=== PATIENT | female | born 2005 | race Caucasian/White ===

== ENCOUNTER 2023-01-04 14:56 | Inpatient (IN) | payer OTHER, SELFPAY ==
[2023-01-06 00:20] VITALS: BP 126/63; PULSE 80; RESP 18; TEMP 37.3
--- NOTE | 2023-01-06 02:35 | PM.OBPN ---
OB - PN: Subj Subjective Interval history: doing well Patient comments: no complaints [place] infant status: doing well Exam Constitutional: Vital Signs, click to edit/add: Vital Signs - 24 hr 01/06/23 00:20 01/06/23 00:20 Temperature 99.1 F Pulse Rate 80 Respiratory Rate 18 Blood Pressure [Le ft Arm] 126/63 H Oxygen Delivery Me thod Room Air Room Air Chest: Common normals: inspection of chest normal Respiratory: Common normals: normal respiratory effort Auscultation: clear to auscultation bilaterally Cardio: Common normals: regular rate GI: Common normals: Normal to inspection, nondistended, normoactive bowel sounds present Extremity: Common normals: normal to inspection OB - PN: A/P Assessment and Plan Plan s/p pp day 1-doing well, cont expectant mgmt Plan - Vaginal Delivery day: 1 Plan: routine care Time Spent with Patient Time: Total time spent is greater than 50% in coordination of care (as documented) at patient's floor/unit and/or counseling patient:
--- NOTE | 2023-01-06 03:17 | P.OBPN_ITS ---
OB - PN: Subj Subjective Interval history: doing well Patient comments: no complaints [place] infant status: doing well Exam Constitutional Vital Signs, click to edit/add: Vital Signs - 24 hr 01/06/23 00:20 01/06/23 00:20 Temperature 99.1 F Pulse Rate 80 Respiratory Rate 18 Blood Pressure [Left Arm] 126/63 H Oxygen Delivery Method Room Air Room Air Common normals: no apparent distress Respiratory Common normals: normal respiratory effort Cardio Common normals: regular rate and regular rhythm GI Common normals: Normal to inspection, nondistended, normoactive bowel sounds present Extremity Common normals: normal to inspection, no clubbing, cyanosis or edema and no calf tenderness OB - PN: A/P Plan - Vaginal Delivery day: 1 Plan: routine care Time Spent with Patient Time: Total time spent is greater than 50% in coordination of care (as documented) at patient's floor/unit and/or counseling patient: Total time spent with greater than 50% in coordination of care (as documented) at patient's floor/unit and/or counseling patient: less than 15 minutes
--- NOTE | 2023-01-06 05:21 | PC.NURSE ---
Pt sleeping upon RN entering room. Awakens easily. RN explains to pt that infant needs to eat every 2-3 hours. Provides bottle to pt and demonstrates paced bottle feeding as well as how to burp infant. Pt needs continuing education.
[2023-01-06 06:35] LABS: Hematocrit 29.7 % (36.0-48.0); Hemoglobin 10.4 g/dL (12.0-16.0); Mean Corpuscular Hemoglobin 29.1 pg (26.7-34.0); Mean Platelet Volume 11.7 fL (9.5-13.5); Nucleated Red Blood Cells 0; Platelet Count 156 10^3/uL (150-450); Red Blood Count 3.58 10^6/uL (4.20-5.40); Red Cell Distribution Width 11.9 % (11.0-15.0); White Blood Count 9.8 10^3/uL (4.0-11.0)
[2023-01-06 06:57] LABS: Eosinophils Absolute Manual 0.09 10^3/uL (0.00-0.70); Lymphocytes Absolute Manual 2.45 10^3/uL (1.20-3.80); Monocytes Absolute Manual 0.88 10^3/uL (0.30-0.80); Segmented Neut Absolute Manual 5.58 10^3/uL (1.4-6.5)
[2023-01-06 06:58] LABS: Band Neutrophils Absolute 0.3 10^3/uL (0.0-0.3)
--- NOTE | 2023-01-06 07:28 | PC.NURSE ---
Report given to Elis Alvarado RN
[2023-01-06 10:06] VITALS: BP 131/91; PULSE 78; RESP 16; TEMP 36.1
--- NOTE | 2023-01-06 15:14 | SWNOTE1 ---
SW met with pt due to consult for teen , anxiety and depression, and pt being high school drop out. Pt and father of baby in room as well. Pt is on Celexa at home for her anxiety/depression. She stated she has been on it for a month and it does help her. She will continue Celexa when she is discharged. SW did go over post depression with pt and father of baby, they voiced understanding. Pt did voice they have a good support system at home and they do have everything they need for baby at home. Pt does plan on going back to school once the baby is older. She voiced it was hard to go to school and be . Pt and father of baby appropriate with baby. Concerns addressed. Nursing updated.
[2023-01-06 17:00] VITALS: RESP 12
[2023-01-06 18:44] VITALS: BP 128/80; PULSE 92; RESP 12; TEMP 36.7
--- NOTE | 2023-01-06 19:31 | PC.NURSE ---
Pt sitting comfortably in bed with S/O at bedside as well. Denies any needs at this time.
--- NOTE | 2023-01-06 20:09 | PC.NURSE ---
Pt requests more delmy pads. Water refreshed at this time as well. No other needs.
[2023-01-06 23:00] VITALS: BP 125/78; PULSE 86; RESP 18; TEMP 36.9
[2023-01-07] MEDS: DOCUSATE SODIUM 100 MG CAPSULE PO (09:52)
--- NOTE | 2023-01-07 09:53 | PC.NURSE ---
01/07/2023 0953 patient taking own home meds keppra 500mg and celexa 10mg orally. RN witnesses patient taking own home meds while RN at bedside.
[2023-01-07 09:56] VITALS: BP 122/72; PULSE 79; RESP 18; TEMP 36.6
--- NOTE | 2023-01-07 12:08 | PM.OBPN ---
OB - PN: Subj Subjective Interval history: Doing well, afebrile. Ambulating well. Pain is minimal. Patient comments: no complaints Exam Constitutional: Vital Signs, click to edit/add: Vital Signs - 24 hr 01/06/23 18:44 01/06/23 17:00 01/06/23 23:00 Temperature 98.0 F Pulse Rate 92 H Pulse Rate [Monito r] 86 Respiratory Rate 12 12 18 Blood Pressure [Le ft Arm] 128/80 H Oxygen Delivery Me thod Room Air Room Air Room Air 01/06/23 23:00 01/07/23 09:56 Temperature 98.4 F 97.9 F Pulse Rate 86 79 Pulse Rate [Monito r] Respiratory Rate 18 18 Blood Pressure [Le ft Arm] 125/78 H 122/72 H Oxygen Delivery Me thod Room Air Room Air Documenting provider has reviewed patient's vital signs: yes Common normals: no apparent distress General appearance: cooperative HENMT: Common normals: normocephalic Respiratory: Common normals: normal respiratory effort Cardio: Common normals: regular rate and regular rhythm GI: Common normals: soft to palpation Inspection: normal to inspection Palpation: soft : Speculum exam - vagina: vaginal discharge Vaginal discharge present: normal Bimanual exam- vagina & uterus: uterus non-tender OB - PN: A/P Assessment and Plan (1) Normal course: Plan day two, discharge home. Plan - Vaginal Delivery Plan: routine care, discharge home and follow up 6 weeks Time Spent with Patient Time: Total time spent is greater than 50% in coordination of care (as documented) at patient's floor/unit and/or counseling patient: Total time spent with greater than 50% in coordination of care (as documented) at patient's floor/unit and/or counseling patient: less than 15 minutes
== END 2023-01-07 12:30 | disposition home or self-care (01) | DRG 560 ==
PROVIDERS: Admitting Provider Obstetrics & Gynecology; PCP Family Medicine; Visit Provider Obstetrics & Gynecology
DX: O36.5930 Maternal care for other known or suspected poor fetal growth, third trimester, not applicable or unspecified (principal); Z3A.37 37 weeks gestation of pregnancy; Z37.0 Single live birth; O99.334 Smoking (tobacco) complicating childbirth; F17.210 Nicotine dependence, cigarettes, uncomplicated; O70.0 First degree perineal laceration during delivery
CPT/HCPCS: 36415; 51702; 59050; 80307; 85007; 85025; 85027; 86850; 86900; 86901; 96372; J0702; J2300

== ENCOUNTER 2023-03-22 17:50 | Emergency (ER) | payer OTHER, SELFPAY ==
[2023-03-22 17:56] VITALS: BP 126/75; PULSE 20; RESP 18; O2SAT 99; BMI 26.6
--- NOTE | 2023-03-22 18:08 | CT_ITS ---
The [address] [address] Patient Name: NICKO EVANS MRN: [id number] date: 2005 Sex: F Assigned Patient Location: ER Current Patient Location: ER Accession/Order Number: [id number] Exam Date: 03/22/2023 18:41 Report Date: 03/22/2023 19:24 At the request of: LEIGH RIVERS Procedure: CT cervical spine wo con EXAMINATION: CT cervical spine wo con HISTORY: fall COMPARISON: None. TECHNIQUE: CT Cervical spine without IV contrast. Coronal and sagittal reformations were performed. Dose reduction techniques were achieved by using automated exposure control and/or adjustment of mA and/or kV according to patient size and/or use of iterative reconstruction technique. FINDINGS: CV JUNCTION: Normal foramen magnum with no Chiari malformation. PARASPINAL: Normal with no visible mass. BONES: No fracture, pars defect, or osseous lesion. OTHER: None. DISC LEVELS: C1-C2: Within normal limits for age. C2-C3: No significant disc/facet abnormality, spinal stenosis, or foraminal stenosis. C3-C4: No significant disc/facet abnormality, spinal stenosis, or foraminal stenosis. C4-C5: No significant disc/facet abnormality, spinal stenosis, or foraminal stenosis. . C5-C6: Early degenerative disc disease is present without focal protrusion. The central canal and neural foramina are satisfactorily maintained. C6-C7: No significant disc/facet abnormality, spinal stenosis, or foraminal stenosis. C7-T1: No significant disc/facet abnormality, spinal stenosis, or foraminal stenosis. CT/CT cervical spine wo con IMPRESSION: 1. Early C5-C6 degenerative disc disease. 2. No focal disc protrusion, significantly stenosing lesion of the neural canal, or acute bony abnormality is identified. Electronically authenticated by: Flako LOVELL Date: 03/22/2023 19:24
--- NOTE | 2023-03-22 18:08 | ECG_ITS ---
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
--- NOTE | 2023-03-22 18:08 | CT_ITS ---
The [address] [address] Patient Name: NICKO EVANS MRN: [id number] date: 2005 Sex: F Assigned Patient Location: ER Current Patient Location: ER Accession/Order Number: [id number] Exam Date: 03/22/2023 18:41 Report Date: 03/22/2023 19:20 At the request of: LEIGH RIVERS Procedure: CT head/brain wo con CT head/brain wo con, 03/22/2023 3:41 PM PDT INDICATION: seizure COMPARISON: None. TECHNIQUE: Axial CT images of the brain from skull base to vertex, including portions of the face and sinuses, were obtained without contrast. Multiplanar reformatted images were generated and reviewed as needed. Dose reduction techniques were achieved by using automated exposure control and/or adjustment of mA and/or kV according to patient size and/or use of iterative reconstruction technique. FINDINGS: CEREBRUM: No edema, hemorrhage, mass, acute infarction, or inappropriate atrophy. CEREBELLUM: No edema, hemorrhage, mass, acute infarction, or inappropriate atrophy. BRAINSTEM: No acute infarct, hemorrhage or gross structural abnormality. CSF SPACES: Ventricles, cisterns, and sulci are appropriate for age. No hydrocephalus, subarachnoid hemorrhage, or mass. SKULL: No mass or other significant visible lesion. SINUSES: Limited views demonstrate no significant mucosal thickening or fluid. ORBITS: Limited views are unremarkable. OTHER: None. CT/CT head/brain wo con IMPRESSION: No acute intracranial abnormality is identified. Electronically authenticated by: Flako LOVELL Date: 03/22/2023 19:20
[2023-03-22 18:22] LABS: Basophils Percent Auto 0.3 % (0.2-2.0); Eosinophils Percent Auto 0.2 % (0.9-7.0); Hematocrit 36.9 % (36.0-48.0); Hemoglobin 12.7 g/dL (12.0-16.0); Immature Granulocytes Abs Auto 0.01 10^3/uL (0.00-0.03); Immature Granulocytes Pct Auto 0.2 % (0.0-0.5); Lymphocytes Absolute Auto 2.7 10^3/uL (1.2-3.8); Lymphocytes Percent Auto 43.7 % (20.5-60.0); Mean Corpuscular HGB Conc 34.4 g/dL (29.9-35.2); Mean Corpuscular Hemoglobin 27.9 pg (26.7-34.0); Mean Corpuscular Volume 81.1 fL (81.0-99.0); Monocytes Percent Auto 16.1 % (1.7-12.0); Neutrophils Absolute Auto 2.4 10^3/uL (1.4-6.5); Neutrophils Percent Auto 39.5 % (43.0-75.0); Platelet Count 201 10^3/uL (150-450); Red Blood Count 4.55 10^6/uL (4.20-5.40); Red Cell Distribution Width 14.7 % (11.0-15.0); White Blood Count 6.2 10^3/uL (4.0-11.0)
[2023-03-22 18:26] LABS: HCG Qualitative NEGATIVE (NEGATIVE)
[2023-03-22 18:31] LABS: Alanine Aminotransferase 24 U/L (14-59); Albumin Globulin Ratio 1.4; Albumin Level 4.3 g/dL (3.4-5.0); Alkaline Phosphatase 69 U/L (46-116); Anion Gap 18.4; Aspartate Amino Transferase 15 U/L (15-37); BUN Creatinine Ratio 4.7; Bilirubin Total 0.4 mg/dL (0.2-1.0); Calcium 8.4 mg/dL (8.5-10.1); Carbon Dioxide 21.3 mmol/L (21.0-32.0); Chloride 102 mmol/L (98-107); Estimated GFR (African America >60 (>=60); Estimated GFR (Non-African Ame >60 (>=60); Glucose 115 mg/dL (74-106); Magnesium 1.8 mg/dL (1.8-2.4); Sodium 139 mmol/L (136-145); Total Protein 7.3 g/dL (6.4-8.2)
--- NOTE | 2023-03-22 18:33 | ED.GENADUL1 ---
HPI - General Adult General Chief complaint: Seizure Stated complaint: TONGUE IS DISCOLORED Time Seen by Provider: 03/22/23 18:06 Source: family Mode of arrival: walk-in History of Present Illness HPI narrative: 17-year-old female to the emergency department with chief complaint of seizure. Patient was initially checking into the emergency department with her mother for dark discoloration of her tongue has been ongoing for several days. She is otherwise been in her baseline health. She recently delivered a baby vaginally one month ago. No recent falls or injuries. No fever, sweats, chills. No nausea or vomiting, abdominal pain. Mother reports that while they're checking in triage the patient lowered herself to the ground and seized. Related Data Allergies Allergy/AdvReac Type Severity Reaction Status Date / Time amanda Allergy Verified 01/06/23 19:36 Review of Systems ROS Status of ROS 10 or more systems reviewed and unremarkable except as noted in history and below [facility] Medical History (Updated 03/22/23 @ 18:40 by Rommel Davis MD) Exam Narrative Exam Narrative: VITALS: I have reviewed the triage vital signs. GENERAL: Well developed, well appearing adult female in no acute distress. NEURO: Alert and oriented x4. Moves all extremities. Face is symmetric and expressive. Motor strength and sensation grossly intact. EYES: PERRL. No scleral icterus or conjunctival injection. No discharge. HENT: Normocephalic, atraumatic. Hearing is grossly intact. Nares grossly patent and without discharge. Mucous membranes moist. Dark hairy tongue. NECK: No JVD. Patient moves neck without restriction. CARDIO: Rhythm regular. Normal rate. No murmur, rub, or gallop. Pulses equal bilaterally in the upper and lower extremity. No lower extremity edema. PULM: Lungs clear to auscultation in all king. No wheezes, rales, or rhonchi. No conversational dyspnea. No splinting, stridor, or accessory muscle use. GI/: Abdomen is soft and non-tender. Normoactive bowel sounds. EXTREMITIES: Symmetric muscle bulk. No joint swelling. No clubbing, cyanosis, or deformity. SKIN: Warm and dry. Normal turgor. No rash or lesions appreciated. PSYCH: Mood, affect, and interaction is appropriate to the setting. Constitutional Vital Signs, click to edit/add: Last Vital Signs Pulse 20 L 03/22/23 17:56 Resp 18 03/22/23 17:56 BP 126/75 03/22/23 17:56 Pulse Ox 99 03/22/23 17:56 Course Vital Signs Vital signs: Vital Signs Pulse Rate 20 L 03/22/23 17:56 Respiratory Rate 18 03/22/23 17:56 Blood Pressure 126/75 03/22/23 17:56 Pulse Oximetry 99 03/22/23 17:56 Pulse Rate 20 L 03/22/23 17:56 Respiratory Rate 18 03/22/23 17:56 Blood Pressure 126/75 03/22/23 17:56 Pulse Oximetry 99 03/22/23 17:56 Medical Decision Making MDM Narrative Medical decision making narrative: 17-year-old female to the emergency department with chief complaint of seizure. Vital stable, the patient is afebrile. Seizure lasted approximately thirty seconds witnessed by myself and Emergency Department staff. Seizure best described as low frequency thrusting. She very quickly returned to baseline. Code purple was called and the patient was placed on a cot. Unclear if the patient actually fell. We'll obtain CT head and C-spine. Basic labs ordered. By chart review as the patient was previously on Dilantin and Keppra. She has had an abnormal routine EEG [place] [facility] [place] the past without confirmed seizure activity. She has also had diagnosis on PNES during hospitalization at [facility] on video EEG. I do not believe this was an epileptic seizure today based on my direct observation and the clinical course. Care was signed out to Dr. Silva with review of labs, Imaging, and Disposition pending. Rommel Davis DO, FAAEM Lab Data Labs: Lab Results 03/22/23 Range/Units 18:00 WBC 6.2 (4.0-11.0) 10^3/uL RBC 4.55 (4.20-5.40) 10^6/uL Hgb 12.7 (12.0-16.0) g/dL Hct 36.9 (36.0-48.0) % MCV 81.1 (81.0-99.0) fL MCH 27.9 (26.7-34.0) pg MCHC 34.4 (29.9-35.2) g/dL RDW 14.7 (11.0-15.0) % Plt Count 201 (150-450) 10^3/uL MPV 12.0 (9.5-13.5) fL Neut % (Auto) 39.5 L (43.0-75.0) % Lymph % (Auto) 43.7 (20.5-60.0) % [place] % (Auto) 16.1 H (1.7-12.0) % Eos % (Auto) 0.2 L (0.9-7.0) % Baso % (Auto) 0.3 (0.2-2.0) % Neut # (Auto) 2.4 (1.4-6.5) 10^3/uL Lymph # (Auto) 2.7 (1.2-3.8) 10^3/uL [place] # (Auto) 1.0 H (0.3-0.8) 10^3/uL Eos # (Auto) 0.0 (0.0-0.7) 10^3/uL Baso # (Auto) 0.0 (0.0-0.1) 10^3/uL Abs Immat Gran (auto) 0.01 (0.00-0.03) 10^3/uL Imm/Tot Granulo (auto) 0.2 (0.0-0.5) % Serum HCG, Qual Negative (NEGATIVE) Discharge Plan Discharge Chief Complaint: Seizure Clinical Impression: Seizure Referrals: Jose E Burns MD [Primary Care Provider] - 1 week
[2023-03-22 18:38] LABS: Ethanol <3 mg/dL; Potassium 2.7 mmol/L (3.5-5.1)
[2023-03-22] MEDS: POTASSIUM CHLORIDE IN 0.9%NACL 1,000 ML 250 MEQ IV (19:03)
[2023-03-22 19:48] LABS: Amphetamine Screen Urine NEGATIVE (NEGATIVE); Barbiturates Screen Urine NEGATIVE (NEGATIVE); Benzodiazepines Screen Urine NEGATIVE (NEGATIVE); Buprenorphine Screen Urine NEGATIVE (NEGATIVE); Cannabinoid Screen Urine POSITIVE (NEGATIVE); Cocaine Screen Urine NEGATIVE (NEGATIVE); Methadone Screen Urine NEGATIVE (NEGATIVE); Methamphetamines Screen Urine NEGATIVE (NEGATIVE); Opiate Screen Urine NEGATIVE (NEGATIVE); Oxycodone Screen Urine NEGATIVE (NEGATIVE); Phencyclidine Screen Urine NEGATIVE (NEGATIVE); Tricyclic Antidepressant Urine NEGATIVE (NEGATIVE)
[2023-03-22] MEDS: POTASSIUM BICARBONATE/CIT 25 MEQ TABLET EFF 50 MEQ PO (20:35)
[2023-03-22 20:36] VITALS: BP 118/71; RESP 18; O2SAT 98
== END 2023-03-22 20:38 | disposition home or self-care (01) ==
PROVIDERS: Student in an Organized Health Care Education/Training Program; Emergency Provider Internal Medicine; PCP Family Medicine
DX: O90.89 Other complications of the puerperium, not elsewhere classified (principal); R56.9 Unspecified convulsions; K14.8 Other diseases of tongue; E87.6 Hypokalemia
CPT/HCPCS: 36415; 70450; 72125; 80053; 80307; 80320; 83735; 84703; 85025; 93005; 96365; 96366; 99285

== ENCOUNTER 2023-06-03 11:40 | Outpatient (OUT) | payer OTHER, SELFPAY ==
--- NOTE | 2023-06-03 11:54 | XR_ITS ---
The [address] [address] Patient Name: NICKO EVANS MRN: [id number] date: 2005 Sex: F Assigned Patient Location: LAB Current Patient Location: Accession/Order Number: [id number] Exam Date: 06/03/2023 12:04 Report Date: 06/05/2023 21:27 At the request of: RASHARD MONTEZ Procedure: XR acute abdomen series EXAM: XR acute abdomen series HISTORY: Epigastric Pain R10.13 COMPARISON: None. TECHNIQUE: 4 AP radiographs of the chest, abdomen and pelvis FINDINGS: CHEST: No pneumothorax, pleural effusion or consolidation. Normal heart size. No acute osseous abnormality of the chest. ABDOMEN/PELVIS: Nonobstructed bowel gas pattern. No intra-abdominal free air. The osseous structures are intact. No intra-abdominal stone or calcification. XR/XR acute abdomen series IMPRESSION: No acute cardiac pulmonary process. No radiographic abdominal abnormality. Electronically authenticated by: HANG AMOS Date: 06/05/2023 21:27
[2023-06-03 11:58] LABS: Basophils Percent Auto 0.8 % (0.2-2.0); Eosinophils Absolute Auto 0.1 10^3/uL (0.0-0.7); Eosinophils Percent Auto 2.5 % (0.9-7.0); Hematocrit 39.2 % (36.0-48.0); Hemoglobin 13.9 g/dL (12.0-16.0); Lymphocytes Absolute Auto 2.4 10^3/uL (1.2-3.8); Lymphocytes Percent Auto 49.7 % (20.5-60.0); Mean Corpuscular HGB Conc 35.5 g/dL (29.9-35.2); Mean Corpuscular Hemoglobin 29.9 pg (26.7-34.0); Mean Corpuscular Volume 84.3 fL (81.0-99.0); Mean Platelet Volume 12.4 fL (9.5-13.5); Monocytes Absolute Auto 0.4 10^3/uL (0.3-0.8); Monocytes Percent Auto 8.2 % (1.7-12.0); Neutrophils Absolute Auto 1.9 10^3/uL (1.4-6.5); Neutrophils Percent Auto 38.8 % (43.0-75.0); Platelet Count 213 10^3/uL (150-450); Red Blood Count 4.65 10^6/uL (4.20-5.40); White Blood Count 4.9 10^3/uL (4.0-11.0)
[2023-06-03 12:24] LABS: Alanine Aminotransferase 35 U/L (14-59); Albumin Globulin Ratio 1.5; Albumin Level 4.5 g/dL (3.4-5.0); Alkaline Phosphatase 69 U/L (46-116); Amylase 34 U/L (25-115); Anion Gap 15.3; Aspartate Amino Transferase 22 U/L (15-37); BUN Creatinine Ratio 7.5; Bilirubin Total 1.2 mg/dL (0.2-1.0); Calcium 9.1 mg/dL (8.5-10.1); Carbon Dioxide 24.7 mmol/L (21.0-32.0); Chloride 105 mmol/L (98-107); Estimated GFR (African America >60 (>=60); Estimated GFR (Non-African Ame >60 (>=60); Glucose 84 mg/dL (74-106); Sodium 141 mmol/L (136-145); Total Protein 7.5 g/dL (6.4-8.2)
== END 2023-06-03 11:41 | disposition home or self-care (01) ==
LOC: LAB 11:42
PROVIDERS: PCP Family Medicine; Visit Provider Family Medicine
DX: R10.13 Epigastric pain (principal)
CPT/HCPCS: 36415; 74022; 80053; 82150; 83690; 85025

== ENCOUNTER 2023-06-09 08:54 | Outpatient (OUT) | payer OTHER, SELFPAY ==
--- NOTE | 2023-06-09 09:00 | US_ITS ---
The [address] [address] Patient Name: NICKO EVANS MRN: [id number] date: 2005 Sex: F Assigned Patient Location: US Current Patient Location: US Accession/Order Number: [id number] Exam Date: 06/09/2023 09:01 Report Date: 06/09/2023 11:53 At the request of: RASHARD MONTEZ Procedure: US renal bladder US renal bladder, 06/09/2023 9:01 AM EDT INDICATION: Disorder Of Kidney and Ureter N28.9 COMPARISON: Prior CT of abdomen dated 04/29/2022 FINDINGS: The kidneys measure 10 x 4.3 x 4.4 cm on the right and 10.5 x 5.2 x 5 cm on the left side. No hydronephrosis is noted. Normal vascularity of kidneys. The visualized portion of the urinary bladder is unremarkable. The urinary bladder wall measures 1.1 mm. Nonspecific ureteral jet is noted. The post void residual measures 2 mL. Incidental note of the 3.3 x 2 mm lesion in the posterior wall of the gallbladder likely polyp. No gallbladder wall thickening or pericholecystic fluid is noted. US/US renal bladder IMPRESSION: No abnormality of kidneys. Small gallbladder polyp. Electronically authenticated by: KRISTIN CHILDS Date: 06/09/2023 11:53
== END 2023-06-09 08:55 | disposition home or self-care (01) ==
LOC: US 08:54
PROVIDERS: PCP Family Medicine; Visit Provider Family Medicine
DX: N28.9 Disorder of kidney and ureter, unspecified (principal); K82.4 Cholesterolosis of gallbladder
CPT/HCPCS: 76770

== ENCOUNTER 2023-06-24 10:32 | Outpatient (OUT) | payer OTHER, SELFPAY ==
--- NOTE | 2023-06-24 10:34 | US_ITS ---
The [address] [address] Patient Name: NICKO EVANS MRN: [id number] date: 2005 Sex: F Assigned Patient Location: US Current Patient Location: US Accession/Order Number: [id number] Exam Date: 06/24/2023 10:46 Report Date: 06/24/2023 14:44 At the request of: RASHARD MONTEZ Procedure: US right upper quadrant US right upper quadrant, 06/24/2023 10:46 AM EST INDICATION:Right upper quadrant pain COMPARISON: No prior abdominal ultrasound available for comparison at the time of this dictation. Contrast-enhanced CT scan of the abdomen and pelvis 04/10/2022 TECHNIQUE: Multi-planar real-time ultrasonography of the upper abdomen (right upper quadrant) using grayscale imaging, supplemented by color, power, and spectral Doppler as needed. FINDINGS: The visualized pancreas is unremarkable. The aorta is normal caliber. The liver is normal size and echotexture. Common bile duct 2.5mm Multiple stone within the gallbladder lumen. 0.4 x 0.4 x 0.4 cm nonmobile echogenic nodule adherent to the nondependent wall of the gallbladder. No gallbladder wall thickening or pericholecystic fluid. Negative sonographic Alvarez's sign. The main portal vein is antegrade Right kidney: 9.7 x 4.6 x 3.0 cm. No hydronephrosis. Normal color Doppler to the right kidney. No ascites. US/US right upper quadrant IMPRESSION: 1. Cholelithiasis and 4 mm focus of tumefactive sludge versus cholesterol polyp. No findings to suggest acute cholecystitis. Electronically authenticated by: NICK JOSUE Date: 06/24/2023 14:44
== END 2023-06-24 10:33 | disposition home or self-care (01) ==
LOC: US 10:32
PROVIDERS: PCP Family Medicine; Visit Provider Family Medicine
DX: R10.11 Right upper quadrant pain (principal); K80.20 Calculus of gallbladder without cholecystitis without obstruction
CPT/HCPCS: 76705

== ENCOUNTER 2023-07-05 16:51 | Emergency (ER) | payer OTHER, SELFPAY ==
[2023-07-05 16:59] VITALS: BP 106/77; PULSE 51; RESP 18; TEMP 36.6; O2SAT 97; BMI 20.4
--- NOTE | 2023-07-05 17:02 | XR_ITS ---
The [address] [address] Patient Name: NICKO EVANS MRN: [id number] date: 2005 Sex: F Assigned Patient Location: ER Current Patient Location: Accession/Order Number: [id number] Exam Date: 07/05/2023 17:28 Report Date: 07/05/2023 17:45 At the request of: ESPERANZA KEVIN Procedure: XR wrist LT min 3V EXAM: XR wrist LT min 3V HISTORY: Wrist pain after fall COMPARISON: None. TECHNIQUE: 3 views FINDINGS: No osseous lesion, fracture, dislocation or subluxation. Joint spaces are normal. No visualized effusion. No visualized soft tissue edema. XR/XR wrist LT min 3V IMPRESSION: Normal x-rays Electronically authenticated by: YO HEREDIA Date: 07/05/2023 17:45
[2023-07-05] MEDS: IBUPROFEN 600 MG TABLET PO (17:23)
--- NOTE | 2023-07-05 17:31 | ED.UPPEXIN1 ---
HPI - Extremity Injury (Upper) General Chief Complaint: Extremity Injury, Upper Stated Complaint: upper extremity injury Time Seen by Provider: 07/05/23 17:23 Source: patient Mode of arrival: walk-in Limitations: no limitations History of Present Illness HPI narrative: Patient is a 18-year-old female who presents to the emergency department for the evaluation of left wrist pain. She states she was walking down stairs in her home when she tripped and landed on her left wrist, she then slid down several stairs. She denies head injury, loss of consciousness. She had no other associated injuries. No medications taken prior to arrival. She is not concerned for . Related Data Allergies Allergy/AdvReac Type Severity Reaction Status Date / Time amanda Allergy Verified 01/06/23 19:36 Review of Systems ROS Constitutional Denies: fever or chills Ears, nose, mouth, and throat Denies: throat pain Cardiovascular Denies: chest pain Respiratory Denies: shortness of breath Gastrointestinal Denies: abdominal pain, nausea or vomiting Musculoskeletal Reports: extremity pain, joint pain and limited range of motion; Denies: back pain or neck pain Integumentary/Breast Denies: rash Neurological Denies: headache Hematologic/Lymphatic Denies: easy bruising PFSH PFSH Medical History (Updated 07/05/23 @ 17:39 by MICHELLE Ellis) Normal course ?Z39.2 - Encounter for routine follow-up (ICD-10) Social History Smoking status: Current every day smoker Exam Narrative Exam Narrative: Gen.: Awake, alert, in no distress Head: Normocephalic, atraumatic ENT: Moist mucous membranes Respiratory: No respiratory distress Extremities: Limited flexion and extension at the left wrist, no swelling or ecchymosis noted. 2+ left radial pulse. 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 No bony tenderness of the left forearm or elbow. Tenderness of the dorsum of the left wrist, over the distal radius Psych: Normal mood and affect Neuro: No focal neuro deficit Skin: Warm, dry, intact Constitutional Vital Signs, click to edit/add: Last Vital Signs Temp 97.9 F 07/05/23 16:59 Pulse 51 L 07/05/23 16:59 Resp 18 07/05/23 16:59 BP 106/77 07/05/23 16:59 Pulse Ox 97 07/05/23 16:59 O2 Del Method Room Air 07/05/23 16:59 Course Vital Signs Vital signs: Vital Signs Temperature 97.9 F 07/05/23 16:59 Pulse Rate 51 L 07/05/23 16:59 Respiratory Rate 18 07/05/23 16:59 Blood Pressure 106/77 07/05/23 16:59 Pulse Oximetry 97 07/05/23 16:59 Oxygen Delivery Method Room Air 07/05/23 16:59 Temperature 97.9 F 07/05/23 16:59 Pulse Rate 51 L 07/05/23 16:59 Respiratory Rate 18 07/05/23 16:59 Blood Pressure 106/77 07/05/23 16:59 Pulse Oximetry 97 07/05/23 16:59 Oxygen Delivery Method Room Air 07/05/23 16:59 MDM - Extremity Injury (Upper) MDM Narrative Medical decision making narrative: X-rays of the left wrist with no evidence of acute fracture or dislocation. Patient placed in a wrist splint, she remains neurovascularly intact. Rest, ice, elevate. Patient is not able to swallow pills so she deferred ibuprofen in the ER. Continue NSAIDs for home, follow-up with PCP and return to the ER if symptoms change or worsen Medical Records Attestation: I reviewed the patient's medical records. Imaging Data X-ray left wrist: Attestation: I personally reviewed and interpreted this imaging study as follows: My impression: NAD Discharge Plan Discharge Chief Complaint: Extremity Injury, Upper Clinical Impression: Left wrist sprain Patient Disposition: Home, Self-Care Time of Disposition Decision: 17:38 Condition: Good Instructions: Wrist Sprain (ED) Stand Alone Forms: Portal Instructions Referrals: Jose E Burns MD [Primary Care Provider] - 1 week
== END 2023-07-05 17:43 | disposition home or self-care (01) ==
PROVIDERS: Emergency Provider Emergency Medicine; PCP Family Medicine
DX: S63.502A Unspecified sprain of left wrist, initial encounter (principal); W10.9XXA Fall (on) (from) unspecified stairs and steps, initial encounter; F17.210 Nicotine dependence, cigarettes, uncomplicated
CPT/HCPCS: 73110; 99283

== ENCOUNTER 2023-11-15 10:02 | Outpatient (REF) | payer OTHER, SELFPAY ==
--- OUTSIDE RECORDS SUMMARY | 2023-11-15 10:19 | XMS_ITS | CCD ---
Author Organization [facility] Care Team Providers Care Benefits Specialist Recruiter Name Role Phone JERO ., DR ALLEN Consulting Unavailable JERO ., DR ALLEN Admitting Unavailable JERO ., DR ALLEN Attending Unavailable HOY ., DR WETZEL Primary Care Unavailable JERO ., DR ALLEN Consulting Unavailable JERO ., DR ALLEN Attending Unavailable JERO ., DR ALLEN Admitting Unavailable HOY ., DR WETZEL Primary Care Unavailable ZIEBER, DR LUISA Garcia Consulting Unavailable JERO ., DR ALLEN Attending Unavailable BAINBRIDGE, DR YO Scanlon Consulting Unavailable JERO ., DR ALLEN Admitting Unavailable HOY ., DR WETZEL Primary Care Unavailable JERO ., DR ALLEN Consulting Unavailable VIDAL, DR GUSTAVO Garcia Attending Unavailable VIDAL, DR GUSTAVO Garcia Consulting Unavailable YOUNG, DR GUSTAVO Garcia Admitting Unavailable HOY ., DR WETZEL Primary Care Unavailable KAILEY SINHA Consulting Unavailable GEORGINA HILARIO Attending Unavailable YANELIS, GEORGINA Consulting Unavailable GEORGINA HILARIO Admitting Unavailable HOY ., DR WETZEL Primary Care Unavailable HOY ., DR WETZEL Consulting Unavailable HOY ., DR WETZEL Primary Care Unavailable HOY ., DR WETZEL Admitting Unavailable HOY ., DR WETZEL Attending Unavailable DIAB ., LALITA Admitting Unavailable DIAB ., LALITA Attending Unavailable CARLEY PERRY Consulting Unavailable HOY ., DR WETZEL Primary Care Unavailable DIAB ., LALITA Consulting Unavailable JERO ., DR ALLEN Consulting Unavailable JERO ., DR ALLEN Admitting Unavailable JERO ., DR ALLEN Attending Unavailable HOY ., DR WETZEL Primary Care Unavailable DALLIN HERNANDEZ Consulting Unavailable KARASIK ., DR TYLER Admitting Unavailabl e KARASIK ., DR TYLER Attending Unavailabl e KARASIK ., DR TYLER Consulting Unavailabl e HOY ., DR WETZEL Primary Care Unavailable HOY ., DR WETZEL Consulting Unavailable HOY ., DR WETZEL Primary Care Unavailable HOY ., DR WETZEL Admitting Unavailable HOY ., DR WETZEL Attending Unavailable JERO ., DR ALLEN Admitting Unavailable JERO ., DR ALLEN Attending Unavailable JERO ., DR ALLEN Consulting Unavailable HOY ., DR WETZEL Primary Care Unavailable ZIEBER, DR LUISA Garcia Consulting Unavailable YAMEL ., SHERLYN Admitting Unavailable YAMEL ., SHERLYN Attending Unavailable HOY ., DR WETZEL Primary Care Unavailable YAMEL ., SHERLYN Consulting Unavailable YAMEL ., SHERLYN Consulting Unavailable YAMEL ., SHERLYN Admitting Unavailable YAMEL ., SHERLYN Attending Unavailable HOY ., DR WETZEL Primary Care Unavailable JERO ., DR ALLEN Admitting Unavailable JERO ., DR ALLEN Attending Unavailable JERO ., DR ALLEN Consulting Unavailable HOY ., DR WETZEL Primary Care Unavailable JERO ., DR ALLEN Admitting Unavailable JERO ., DR ALLEN Attending Unavailable JERO ., DR ALLEN Consulting Unavailable HOY ., DR WETZEL Primary Care Unavailable ZIEBER, DR LUISA Garcia Consulting Unavailable YANELIS, GEORGINA Attending Unavailable YANELIS, GEORGINA Consulting Unavailable HOY ., DR WETZEL Primary Care Unavailable GEORGINA HILARIO Admitting Unavailable JERO ., DR ALLEN Admitting Unavailable JERO ., DR ALLEN Attending Unavailable HOY ., DR WETZEL Primary Care Unavailable RADHA ., CASSANDRA Admitting Unavailable RADHA ., CASSANDRA Attending Unavailable RADHA ., CASSANDRA Consulting Unavailable HOY ., DR WETZEL Primary Care Unavailable CARLEY PERRY Consulting Unavailable JERO ., DR ALLEN Consulting Unavailable JERO ., DR ALLEN Attending Unavailable JERO ., DR ALLEN Admitting Unavailable HOY ., DR WETZEL Primary Care Unavailable ZIEBER, DR LUISA Garcia Consulting Unavailable JERO ., DR ALLEN Attending Unavailable JERO ., DR ALLEN Admitting Unavailable HOY ., DR WETZEL Primary Care Unavailable JERO ., DR ALLEN Consulting Unavailable JERO ., DR ALLEN Admitting Unavailable JERO ., DR ALLEN Attending Unavailable HOY ., DR WETZEL Primary Care Unavailable YOUNG, DR GUSTAVO Garcia Attending Unavailable YOUNG, DR GUSTAVO Garcia Consulting Unavailable YOUNG, DR GUSTAVO Garcia Admitting Unavailable HOY ., DR WETZEL Primary Care Unavailable JERO ., DR ALLEN Consulting Unavailable JERO ., DR ALLEN Admitting Unavailable JERO ., DR ALLEN Attending Unavailable HOY ., DR WETZEL Primary Care Unavailable JERO ., DR ALLEN Admitting Unavailable JERO ., DR ALLEN Attending Unavailable HOY ., DR WETZEL Primary Care Unavailable JERO ., DR ALLEN Consulting Unavailable JERO ., DR ALLEN Admitting Unavailable JERO ., DR ALLEN Attending Unavailable HOY ., DR WETZEL Primary Care Unavailable GEORGINA HILARIO Attending Unavailable GEORGINA HILARIO Consulting Unavailable GEORGINA HILARIO Admitting Unavailable TC ., DR WETZEL Primary Care Unavailable RADHA ., CASSANDRA Consulting Unavailable TO, YO Consulting Unavailable YOUNG, DR GUSTAVO Garcia Attending Unavailable YOUNG, DR GUSTAVO Garcia Consulting Unavailable YOUNG, DR GUSTAVO Garcia Admitting Unavailable TC ., DR WETZEL Primary Care Unavailable ALICJA AVILA Unavailable Rashard Burns Primary Care Physician Rashard Burns Referring Unavailable Alicja LINARES Attending Unavailable Ozzie Burnslas Referring Unavailable Alicja LINARES Attending Unavailable Rashard Burns MD Primary Care Provider [phone] CHIRRI, BETITO Admitting Unavailable CHIRRIBETITO Attending Unavailable JHOAN TENORIO Referring Unavailab le HOY, RASHARD M Referring Unavailable HOY, RASHARD M Primary Care Unavailable LANETTE, MENNATALLAH M Referring Unavailable HOY, RASHARD M Primary Care Unavailable YO BERMAN Referring Unavailable HOY, RASHARD M Primary Care Unavailable YO BERMAN Attending Unavailable YO BERMAN Referring Unavailable HOY, RASHARD M Primary Care Unavailable LANETTE, MENNATALLAH M Admitting Unavailable LANETTE, MENNATALLAH M Attending Unavailable LANETTE, MENNATALLAH M Referring Unavailable HOY, RASHARD M Primary Care Unavailable YO BERMAN Attending Unavailable HOY, RASHARD M Primary Care Unavailable VIKI OCASIO Attending Unavailable HOY, RASHARD M Referring Unavailable HOY, RASHARD M Primary Care Unavailable HOY, RASHARD M Referring Unavailable HOY, RASHARD M Primary Care Unavailable HOY, RASHARD M Referring Unavailable HOY, RASHARD M Primary Care Unavailable HOY, RASHARD M Referring Unavailable HOY, RASHARD M Primary Care Unavailable HOY, RASHARD M Referring Unavailable HOY, RASHARD M Primary Care Unavailable LANETTE, MENNATALLAH M Attending Unavailable RASHARD BURNS Referring Unavailable RASHARD BURNS Primary Care Unavailable Allergies Allergy Classification Reported Allergen(s) Allergy Type Date of Onset Reaction(s) Facility (1 source) amanda allergenic extract Drug Allergy 3 [facility] Repository (1 source) Unable to obtain; Translations: [Unable to obtain] Propensity to adverse reactions (disorder) [facility] Repository (1 source) No Known Medication Allergies; Translations: [No Known Medication Allergies] Propensity to adverse reactions (disorder) [facility] Repository Medications Current Medications Medication Drug Class(es) Dates Sig (Normalized) Sig (Original) acetaminophen 500 mg oral tablet (2 sources) Start: 10-03-19 24 take 2 tablets by mouth every six hours acetaminophen (TYLENOL EXTRA STRENGTH) 500 mg tablet Take 2 tablets (1,000 mg total) by mouth every 6 (six) hours. 30 tablet 0 10/03/2023 Active [id number] 200 actuat albuterol 0.09 mg/actuat metered dose inhaler (4 sources) beta2-Adrenergic Agonist albuterol (PROVENTIL HFA;VENTOLIN HFA) 90 mcg/actuation inhaler Inhale 2 puffs. 0 Active 24 hr desvenlafaxine succinate 50 mg extended release oral tablet (1 source) Serotonin and Norepinephrine Reuptake Inhibitor Start: 06-22-20 23 take 1 tablet by mouth once daily Pristiq 50 mg Tab-ER 50 mg = 1 tab(s), Oral, Daily, Refills(s) 0 Start Date: 06/22/23 Status: Ordered FLUoxetine 10 mg oral capsule (7 sources) Serotonin Reuptake Inhibitor Start: 11-07-19 21 take 1 capsule by mouth once daily FLUoxetine (PROzac) 10 mg capsule TAKE 1 CAPSULE BY ORAL ROUTE PER DAILY TAKE 30 MG (20 MG + 10 MG) DAILY 0 11/06/2020 Active hyoscyamine sulfate 0.125 mg oral tablet (1 source) Start: 07-05-20 23 take 1 tablet by mouth every six hours as needed for pain Levsin 0.125 mg SL Tab 0.125 mg = 1 tab(s), Oral, q6hr, PRN Pain, Refills(s) 0 Start Date: 07/05/23 Status: Ordered ibuprofen 600 mg oral tablet (2 sources) Nonsteroidal Anti-inflammatory Drug Start: 10-03-19 24 take 1 tablet by mouth every six hours ibuprofen (MOTRIN) 600 mg tablet Take 1 tablet (600 mg total) by mouth every 6 (six) hours. 30 tablet 0 10/03/2023 Active lamoTRIgine 100 mg oral tablet (5 sources) Mood Stabilizer, Anti-epileptic Agent Start: 05-16-20 23 take 1 tablet by mouth in the morning lamoTRIgine (LaMICtal) 100 mg tablet Take 1 tablet (100 mg total) by mouth in the morning. 0 05/16/2023 Active 1 ml medroxyPROGESTERone acetate 150 mg/ml injection (3 sources) Progestin medroxyPROGESTER one (DEPO-PROVERA) 150 mg/mL injection Inject 1 mL (150 mg total) into the appropriate muscle every 3 (three) months. 0 Active ondansetron 4 mg disintegrating oral tablet (5 sources) Serotonin-3 Receptor Antagonist Start: 06-01-20 ondansetron ODT (ZOFRAN ODT) 4 mg disintegrating tablet Dissolve 1 tablet (4 mg total) on tongue. 0 06/01/2023 Active pantoprazole 40 mg delayed release oral tablet (3 sources) Proton Pump Inhibitor Start: 06-01-20 pantoprazole (PROTONIX) 40 mg EC tablet Take 1 tablet (40 mg total) by mouth. 0 06/01/2023 Active Problems Active Problems Problem Classification Problem Date Documented Date Episodic/Chronic Abdominal pain (12 sources) Unspecified abdominal pain; Translations: [Upper abdominal pain, unspecified] Onset: 02-22-2022 Episodic Allergic reactions (1 source) Allergy, unspecified, initial encounter; Translations: [ALLERGY UNSPECIFIED INITIAL ENCNTR] Onset: 11-08-2022 Episodic Asthma (3 sources) Asthma; Translations: [Unspecified asthma, uncomplicated] Onset: 09-28-2023 07-05-2023 Chronic Attention-deficit, conduct, and disruptive behavior disorders (1 source) Attention deficit hyperactivity disorder Onset: 01-11-2012 07-05-2023 Chronic Biliary tract disease (5 sources) Biliary calculus; Translations: [Biliary colic] Onset: 09-27-2023 07-05-2023 Episodic Epilepsy; convulsions (1 source) Other epilepsy, not intractable, without status epilepticus; Translations: [OTH EPIL NOT INTRACTABLE WITHOUT SE] Onset: 04-14-2022 Chronic Epilepsy; convulsions (7 sources) Unspecified convulsions; Translations: [UNSPECIFIED CONVULSIONS] Onset: 04-10-2022 Episodic Esophageal disorders (1 source) Gastro-esophageal reflux disease without esophagitis; Translations: [GERD WITHOUT ESOPHAGITIS] Onset: 04-30-2022 Chronic Headache; including migraine (1 source) Migraine Onset: 11-28-2020 07-05-2023 Chronic Menstrual disorders (4 sources) Irregular menstruation, unspecified; Translations: [IRREGULAR MENSTRUATION UNSPECIFIED] Onset: 08-24-2022 Chronic Miscellaneous mental health disorders (1 source) 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 Other aftercare (1 source) Other group home (current) drug therapy; Translations: [OTH [facility] CURRENT DRUG THERAPY] Onset: 11-08-2022 Episodic Other complications of (2 sources) Maternal care for other specified problems, unspecified trimester, not applicable or unspecified; Translations: [MAT CARE OTH FTL PROB UNS TRI UNS] Onset: 01-04-2023 Episodic Other complications of (2 sources) Maternal care for problem, unspecified, unspecified trimester, not applicable or unspecified; Translations: [MAT CARE FTL PROB UNS UNS TRI UNS] Onset: 01-03-2023 Episodic Other complications of (4 sources) Maternal care for other known or suspected poor growth, third trimester, not applicable or unspecified; Translations: [MAT CARE OTH PA FTL GRTH 3RD TM UNS] Onset: 12-31-2022 Episodic Other complications of (1 source) Smoking (tobacco) complicating , third trimester; Translations: [SMOKING TOBACCO COMP PREG 3RD TRI] Onset: 01-02-2023 Episodic Other complications of (4 sources) Other specified related conditions, third trimester; Translations: [OTH SPEC PREG RELATED COND 3RD TRI] Onset: 12-22-2022 Episodic Other complications of (4 sources) Uterine size-date discrepancy, unspecified trimester; Translations: [UTERINE SZ-DATE DISCREPANCY UNS TRI] Onset: 12-20-2022 Episodic Other lower respiratory disease (3 sources) Shortness of breath; Translations: [SHORTNESS OF BREATH] Onset: 11-04-2022 Episodic Other and delivery including normal (14 sources) Encounter for supervision of normal , unspecified, third trimester; Translations: [Encounter for supervision of normal first , first trimester] Onset: 06-22-2022 Episodic Residual codes; unclassified (1 source) 36 weeks gestation of ; Translations: [36 WEEKS GESTATION OF ] Onset: 01-02-2023 Episodic Residual codes; unclassified (1 source) Weeks of gestation of not specified; Translations: [WEEKS GESTATION NOT SPEC] Onset: 12-29-2022 Episodic Residual codes; unclassified (1 source) 35 weeks gestation of ; Translations: [35 WEEKS GESTATION OF ] Onset: 12-27-2022 Episodic Residual codes; unclassified (1 source) 34 weeks gestation of ; Translations: [34 WEEKS GESTATION OF ] Onset: 12-23-2022 Episodic Residual codes; unclassified (1 source) Acquired absence of other specified parts of digestive tract; Translations: [Acquired absence of other specified parts of digestive tract] Onset: 10-18-2023 Episodic Residual codes; unclassified (1 source) Pain, unspecified; Translations: [Pain, unspecified] Onset: 08-23-2023 Episodic Spondylosis; intervertebral disc disorders; other back problems (1 source) Degeneration of cervical intervertebral disc 07-05-2023 Chronic Substance-related disorders (1 source) Nicotine dependence, cigarettes, uncomplicated; Translations: [NICOTINE DEPEND CIGARETTES UNCOMP] Onset: 01-02-2023 Chronic Unclassified (3 sources) CONTACT W/AND (SUSP) EXPOS COVID-19; Translations: [CONTACT W/AND (SUSP) EXPOS COVID-19] Onset: 06-28-2022 Unclassified (1 source) Post-op Onset: 10-18-2023 Unclassified (1 source) Cholelithiasis Onset: 09-27-2023 Past or Other Problems Problem Classification Problem Date Documented Da te Episodic/Chronic Hemorrhage during ; abruptio placenta; placenta previa (5 sources) Hemorrhage in early , unspecified; Translations: [HEMORRHAGE EARLY UNS] Onset: 06-03-2022 Episodic Nausea and vomiting (1 source) Nausea with vomiting, unspecified; Translations: [NAUSEA WITH VOMITING UNSPECIFIED] Onset: 04-14-2022 Episodic Other complications of (4 sources) Unspecified infection of urinary tract in , unspecified trimester; Translations: [UNS INF URINARY TRACT PREG UNS TRI] Onset: 08-25-2022 Episodic Other complications of (1 source) Smoking (tobacco) complicating , first trimester; Translations: [SMOKING TOBACCO COMP PREG 1ST TRI] Onset: 06-22-2022 Episodic Other complications of (1 source) Unspecified infection of urinary tract in , first trimester; Translations: [UNS INF URINARY TRACT PREG 1ST TRI] Onset: 06-22-2022 Episodic Other complications of (1 source) Other specified related conditions, first trimester; Translations: [OTH SPEC PREG RELATED COND 1ST TRI] Onset: 06-03-2022 Episodic Other complications of (4 sources) Other specified related conditions, unspecified trimester; Translations: [OTH SPEC PREG RELATED COND UNS TRI] Onset: 05-25-2022 Episodic Other complications of (1 source) Smoking (tobacco) complicating , unspecified trimester; Translations: [SMOKING TOBACCO COMP PREG UNS TRI] Onset: 05-31-2022 Episodic Other upper respiratory infections (1 source) Acute sinusitis, unspecified; Translations: [ACUTE SINUSITIS UNSPECIFIED] Onset: 06-28-2022 Episodic Residual codes; unclassified (1 source) 8 weeks gestation of ; Translations: [8 WEEKS GESTATION OF ] Onset: 06-22-2022 Episodic Residual codes; unclassified (1 source) Less than 8 weeks gestation of ; Translations: [< 8 WEEKS GESTATION ] Onset: 06-03-2022 Episodic Syncope (1 source) Syncope and collapse; Translations: [SYNCOPE AND COLLAPSE] Onset: 05-31-2022 Episodic Unclassified (1 source) CONTACT W/AND (SUSP) EXPOS COVID-19; Translations: [CONTACT W/AND (SUSP) EXPOS COVID-19] Onset: 06-25-2022 Urinary tract infections (1 source) Urinary tract infection, site not specified; Translations: [UTI SITE NOT SPECIFIED] Onset: 06-22-2022 Episodic Results Test Name Value Interpretation Reference Range Facility HCG ( test) Ql (U)o n 10-03-2023 Beta HCG ( test) Ql (U) Negative Normal NEG [facility] Comment on above: Performed By: #### 2 106-3 #### [facility] ([id number]) [address] [facility] [place] [address] Surgical Pathologyon 024 Surgical Pathology Normal [facility] Comment on above: Result Comment: [facility] [address] [place] [address] Surgical Pathology Consultation Patient Name:KEMI PIPER:2005 (Age: 18)Gender:FTaken:4Reported:10/06/2023hysician(s):Louise Morgan MD ([phone])Copy To: Rec. #:[id number]: #[id number] Final Pathologic Diagnosis Gallbladder, cholecystectomy: - Chronic cholecystitis and cholesterolosis. - Benign reactive lymph node. Report Electronically Signed Out louis/10/06/2023Serena Quintanilla MD Interpretation performed at [facility], [address] [place] [address], License number: [id number]. Clinical History Biliary colic. Gross Description Received in formalin labeled NATHAN, gallbladder is an intact gallbladder, 7 x 3 x 2.8 cm, with a cystic duct, 0.3 cm in diameter. A 0.4 cm periductal lymph node is identified. The serosa is crook-blue, smooth and glistening; the hepatic bed is rough and irregular. The gallbladder is opened to exude a mcbride-green, viscous bile. The mucosa is mcbride-green and velvety with a mcbride-yellow polypoid-like projection within the body, 0.3 cm in greatest dimension. The wall of the gallbladder ranges from 0.1 to 0.2 cm in thickness. The contents of the specimen jar are filtered and no calculi are identified. The cystic duct margin, bisected lymph node and a registered representative section of the gallbladder neck are submitted in cassette A with additional sections from the gallbladder are submitted in cassette B (to include polypoid like projection). (2, ss, [id number], A???B, m2) TALHA gaona/10/04/2023EAK Specimen(s) Received Gallbladder Fee Codes(s): 1; 97438 BASIC METABOLIC PANLon 09-28 Anion gap [Moles/Vol] 7 mmol/L Normal 5-15 [facility] Comment on above: Performed By: #### C BCA, BMP, LIVR #### [facility] ([id number]) [address], [address] [place] [address] Calcium [Mass/Vol] 9.0 mg/dL Normal 8.5-10.5 [facility] Comment on above: Performed By: #### C BCA, BMP, LIVR #### [facility] ([id number]) [address], [facility] [address] [place] [address] Chloride [Moles/Vol] 109 mmol/L Normal 98-109 [facility] Comment on above: Performed By: #### C BCA, BMP, LIVR #### [facility] ([id number]) [address], [address] [place] [address] CO2 [Moles/Vol] 27 mmol/L Normal 22-32 [facility] Comment on above: Performed By: #### C BCA, BMP, LIVR #### [facility] ([id number]) [address], [address] [place] [address] Creatinine [Mass/Vol] 0.98 mg/dL Normal 0.40-1.00 [facility] Comment on above: Result Comment: METH OD TRACEABLE TO IDMS STANDARD Performed By: #### C BCA, BMP, LIVR #### [facility] ([id number]) [address], [address] [place] [address] GFR/1.73 sq M.predicted among non-blacks MDRD (S/P/Bld) [Vol rate/Area] 85 mL/min/{1.73_m2} Normal >59 [facility] Comment on above: Result Comment: Reported eGFR is based on the CKD-EPI 2020 equation that does not use a race coefficient. Performed By: #### C BCA, BMP, LIVR #### [facility] ([id number]) [address], [address] [place] [address] Glucose [Mass/Vol] 82 mg/dL Normal 65-99 [facility] Comment on above: Performed By: #### C BCA, BMP, LIVR #### [facility] ([id number]) [address], [address] [place] [address] Potassium [Moles/Vol] 4.0 mmol/L Normal 3.5-5.0 [facility] Comment on above: Performed By: #### C BCA, BMP, LIVR #### [facility] ([id number]) [address], [address] [place] [address] Sodium [Moles/Vol] 143 mmol/L Normal 134-146 [facility] Comment on above: Performed By: #### C BCA, BMP, LIVR #### [facility] ([id number]) [address], [address] [place] [address] Urea nitrogen [Mass/Vol] 7 mg/dL Normal 5-23 [facility] Comment on above: Performed By: #### C BCA, BMP, LIVR #### [facility] ([id number]) [address] [place] [address] Basic Metabolic Panelon - Anion gap [Moles/Vol] 7 mmol/L 5 - 15 mmol/L [facility] Calcium [Mass/Vol] 9.0 mg/dL 8.5 - 10. 5 mg/dL [facility] Chloride [Moles/Vol] 109 mmol/L 98 - 109 mmol/L [facility] CO2 [Moles/Vol] 27 mmol/L 22 - 32 mmol/L [facility] Creatinine [Mass/Vol] 0.98 mg/dL 0.40 - 1.00 mg/dL [facility] Comment on above: METHOD TRACEABLE TO IDMS STANDARD eGFR (CKD-EPI)non-race dependent 85 - PINF [facility] Comment on above: Reported eGFR is based on the CKD-EPI 2020 equation that does not use a race coefficient. Glucose [Mass/Vol] 82 mg/dL 65 - 99 mg/dL [facility] Potassium [Moles/Vol] 4.0 mmol/L 3.5 - 5.0 mmol/L [facility] Sodium [Moles/Vol] 143 mmol/L 134 - 146 mmol/L [facility] Urea nitrogen [Mass/Vol] 7 mg/dL 5 - 23 mg/dL [facility] CBC AND AUTO DIFFon 09-28-19 ABSOLUTE BASOPHIL 0.0 X10E9/L Normal 0.0-0.2 [facility] Comment on above: Performed By: #### Seble DING BMP, LIVR #### [facility] ([id number]) [address], [address] [place] [address] ABSOLUTE NEUTROPHIL 2.8 X10E9/L Normal 1.5-6.6 [facility] Comment on above: Performed By: #### Seble DING BMP, LIVR #### [facility] ([id number]) [address], [address] [place] [address] Basophils/100 WBC (Bld) 0.6 % Normal [facility] Comment on above: Performed By: #### Seble BCA, BMP, LIVR #### [facility] ([id number]) [address] [place] [address] Eosinophils (Bld) [#/Vol] 0.2 10*3/uL Normal 0.0-0.4 [facility] Comment on above: Performed By: #### C BCA, BMP, LIVR #### [facility] ([id number]) [address], [address] [place] [address] Eosinophils/100 WBC (Bld) 2.8 % Normal [facility] Comment on above: Performed By: #### Seble BCA, BMP, LIVR #### [facility] ([id number]) [address] [address] [place] [address] Erythrocyte distribution width (RBC) [Ratio] 12.2 % Normal 11.5-15.0 [facility] Comment on above: Performed By: #### C TIMUR, BMP, LIVR #### [facility] ([id number]) [address] [address] [place] [address] Hematocrit (Bld) [Volume fraction] 39.7 % Normal 35-47 [facility] Comment on above: Performed By: #### C TIMUR, BMP, LIVR #### [facility] ([id number]) [address] [address] [place] [address] Hemoglobin (Bld) [Mass/Vol] 13.6 g/dL Normal 11.7-15.5 [facility] Comment on above: Performed By: #### C TIMUR, BMP, LIVR #### [facility] ([id number]) [address] [address] [place] [address] Lymphocytes (Bld) [#/Vol] 2.2 10*3/uL Normal 1.0-3.5 [facility] [facility] Comment on above: Performed By: #### C TIMUR, BMP, LIVR #### [facility] ([id number]) [address] [address] [place] [address] Lymphocytes/100 WBC (Bld) 38.4 % Normal [facility] Comment on above: Performed By: #### C TIMUR, BMP, LIVR #### [facility] ([id number]) [address] [address] [place] [address] MCH (RBC) [Entitic mass] 29.6 pg Normal 27-34 [facility] Comment on above: Performed By: #### C BCA, BMP, LIVR #### [facility] ([id number]) [address] [address] [place] [address] MCHC (RBC) [Mass/Vol] 34.3 g/dL Normal 32-36 [facility] Comment on above: Performed By: #### C TIMUR BMP, LIVR #### [facility] ([id number]) [address] [place] [address] MCV (RBC) [Entitic vol] 87 fL Normal 80-100 [facility] Comment on above: Performed By: #### C TIMUR, BMP, LIVR #### [facility] ([id number]) [address] [address] [place] [address] Monocytes (Bld) [#/Vol] 0.5 10*3/uL Normal 0-0.9 [facility] Comment on above: Performed By: #### C TIMUR BMP, LIVR #### [facility] ([id number]) [address] [facility] [address] [place] [address] Monocytes/100 WBC (Bld) 9.2 % Normal [facility] Comment on above: Performed By: #### Seble DING, BMP, LIVR #### [facility] ([id number]) [address] [facility] [address] [place] [address] Neutrophils/100 WBC (Bld) 49.0 % Normal [facility] Comment on above: Performed By: #### C TIMUR, BMP, LIVR #### [facility] ([id number]) [address] [place] [address] Platelet mean volume (Bld) [Entitic vol] 10.8 fL Normal 7-12 [facility] Comment on above: Performed By: #### C TIMUR, BMP, LIVR #### [facility] ([id number]) [address] [address] [place] [address] Platelets (Bld) [#/Vol] 212 10*3/uL Normal 150-450 [facility] Comment on above: Performed By: #### C TIMUR, BMP, LIVR #### [facility] ([id number]) [address] [place] [address] RBC COUNT 4.60 X10E12/L Normal 3.80-5.20 [facility] Comment on above: Performed By: #### Seble DING, BMP, LIVR #### [facility] ([id number]) [address], [address] [place] [address] WBC (Bld) [#/Vol] 5.7 10*3/uL Normal 4.0-11.0 [facility] Comment on above: Performed By: #### Seble DING, BMP, LIVR #### [facility] ([id number]) [address] [place] [address] CBC auto differentialon 09-09 Basophils (Bld) [#/Vol] 0.0 10*3/uL [facility] Basophils/100 WBC (Bld) 0.6 % [facility] Eosinophils (Bld) [#/Vol] 0.2 10*3/uL [facility] Eosinophils/100 WBC (Bld) 2.8 % [facility] Erythrocyte distribution width (RBC) [Ratio] 12.2 % 11.5 - 15.0 % [facility] Hematocrit (Bld) [Volume fraction] 39.7 % 35 - 47 % [facility] Hemoglobin (Bld) [Mass/Vol] 13.6 g/dL 11.7 - 15.5 g/dL [facility] Lymphocytes (Bld) [#/Vol] 2.2 10*3/uL [facility] Lymphocytes/100 WBC (Bld) 38.4 % [facility] MCH (RBC) [Entitic mass] 29.6 pg 27 - 34 pg [facility] MCHC (RBC) [Mass/Vol] 34.3 g/dL 32 - 36 g/dL [facility] MCV (RBC) [Entitic vol] 87 fL 80 - 100 fL [facility] Monocytes (Bld) [#/Vol] 0.5 10*3/uL [facility] Monocytes/100 WBC (Bld) 9.2 % [facility] Neutrophils (Bld) [#/Vol] 2.8 10*3/uL [facility] Neutrophils/100 WBC (Bld) 49.0 % [facility] Platelet mean volume (Bld) [Entitic vol] 10.8 fL 7 - 12 fL [facility] Platelets (Bld) [#/Vol] 212 10*3/uL [facility] RBC (Bld) [#/Vol] 4.60 10*6/uL [facility] WBC corrected for nucl RBC Auto (Bld) [#/Vol] 5.7 [facility] ECG 12 leadon 09-28-2023 TRACEMASTERVUE [facility] LIVER PANELon 09-28-2023 Albumin [Mass/Vol] 4.4 g/dL Normal 3.2-5.3 [facility] Comment on above: Performed By: #### C TIMUR BMP, LIVR #### [facility] ([id number]) [address] [place] [address] ALP [Catalytic activity/Vol] 65 U/L Normal 39-130 [facility] Comment on above: Performed By: #### Seble DING BMP, LIVR #### [facility] ([id number]) [address] [place] [address] ALT [Catalytic activity/Vol] 18 U/L Normal 0-31 [facility] Comment on above: Performed By: #### Seble BCA, BMP, LIVR #### [facility] ([id number]) [address] [place] [address] AST [Catalytic activity/Vol] 16 U/L Normal 0-41 [facility] Comment on above: Performed By: #### Seble BCA, BMP, LIVR #### [facility] ([id number]) [address] [place] [address] Bilirubin [Mass/Vol] 0.5 mg/dL Normal 0.3-1.2 [facility] Comment on above: Performed By: #### C BCA, BMP, LIVR #### [facility] ([id number]) [address] [place] [address] Bilirubin.direct [Mass/Vol] 0.2 mg/dL Normal 0.0-0.4 [facility] Comment on above: Performed By: #### C BCA, BMP, LIVR #### [facility] ([id number]) [address] [place] [address] Protein [Mass/Vol] 6.6 g/dL Normal 6.0-8.0 [facility] Comment on above: Performed By: #### C BCA, BMP, LIVR #### [facility] ([id number]) [address] [place] [address] Liver panelon 09-28-2023 Albumin [Mass/Vol] 4.4 g/dL 3.2 - 5.3 g/dL [facility] ALP [Catalytic activity/Vol] 65 U/L 39 - 130 U/L [facility] ALT No additional P-5'-P [Catalytic activity/Vol] 18 U/L 0 - 31 U/L [facility] AST [Catalytic activity/Vol] 16 U/L 0 - 41 U/L [facility] Bilirubin [Mass/Vol] 0.5 mg/dL 0.3 - 1.2 mg/dL [facility] Bilirubin.direct [Mass/Vol] 0.2 mg/dL 0.0 - 0.4 mg/dL [facility] Protein [Mass/Vol] 6.6 g/dL 6.0 - 8.0 g/dL [facility] No Panel Informationon 09-28 [facility] XR Chest PA and Lateralon Umesh Bolaños MD - 09/28/2023 Procedure: Chest x-ray performed Number of views:2 History:Preop asthma Comparison:None Findings: The heart and lungs show no acute findings, and the mediastinum and manasa are grossly negative . Impression: 1. No acute change. 5 Finalized by Umesh Bolaños MD on 09/28/2023 10:05 AM [facility] Study observation (narrative) [facility] XR Chest PA and LateralOrder ed By: Umesh Bolaños on 09-28-2023 [facility] Work Phone: Basic Metab w/rfx MGon 08-31 Anion gap [Moles/Vol] 8 mmol/L Low 9-17 [facility] Comment on above: Performed By: #### B MPX, CDP #### [facility] [address] [place] [phone] Web Operations Administrator: Quirino Valladares MD Calcium [Mass/Vol] 8.3 mg/dL Low 8.6-10.4 [facility] Comment on above: Performed By: #### B MPX, CDP #### [facility] [address] [place] [address] Web Operations Administrator: Quirino Valladares MD Chloride [Moles/Vol] 107 mmol/L Normal 98-107 [facility] Comment on above: Performed By: #### B MPX, CDP #### [facility] [address] [place] [phone] Web Operations Administrator: Quirino Valladares MD CO2 [Moles/Vol] 24 mmol/L Normal 20-31 [facility] Comment on above: Performed By: #### B MPX, CDP #### [facility] [address] [place] [phone] Web Operations Administrator: Quirino Valladares MD Creatinine [Mass/Vol] 0.9 mg/dL Normal 0.5-0.9 [facility] Comment on above: Performed By: #### B MPX, CDP #### [facility] [address] [place] [phone] Web Operations Administrator: Quirino Valladares MD GFR/1.73 sq M.predicted among non-blacks MDRD (S/P/Bld) [Vol rate/Area] mL/min/{1.73_m2} Normal >60 [facility] Comment on above: Result Comment: These results are not intended for use in patients <18 years of age. eGFR results are calculated without a race factor using the 2020 CKD-EPI equation. Careful clinical correlation is recommended, particularly when comparing to results calculated using previous equations. The CKD-EPI equation is less accurate in patients with extremes of muscle mass, extra-renal metabolism of creatine, excessive creatine ingestion, or following therapy that affects renal tubular secretion. Performed By: #### B MPX, CDP #### [address] [address] Web Operations Administrator: Quirino Valladares MD Glucose [Mass/Vol] 88 mg/dL Normal 70-99 [facility] Comment on above: Performed By: #### B MPX, CDP #### [address] [address] Web Operations Administrator: Quirino Valladares MD Potassium [Moles/Vol] 3.6 mmol/L Low 3.7-5.3 [facility] Comment on above: Performed By: #### B MPX, CDP #### [address] [address] Web Operations Administrator: Quirino Valladares MD Sodium [Moles/Vol] 139 mmol/L Normal 135-144 [facility] Comment on above: Performed By: #### B MPX, CDP #### [facility] [address] [place] [phone] Web Operations Administrator: Quirino Valladares MD Urea nitrogen [Mass/Vol] 9 mg/dL Normal 6-20 [facility] Comment on above: Performed By: #### B MPX, CDP #### [address] [address] Web Operations Administrator: Quirino Valladares MD CBC with Diffon 08-31-2023 Abs. Basophil 0.04 k/uL Normal 0.00-0.20 [facility] Comment on above: Performed By: #### B MPX, CDP #### [address] [address] Web Operations Administrator: Quirino Valladares MD Abs.Imm.Granulocyte <0.03 Normal 0.00-0.30 [facility] Comment on above: Performed By: #### B MPX, CDP #### [facility] [address] [place] [phone] Web Operations Administrator: Quirino Valladares MD Abs.Neutrophil (Seg) 2.46 k/uL Normal 1.80-8.00 [facility] Comment on above: Performed By: #### B MPX, CDP #### [address] [address] Web Operations Administrator: Quirino Valladares MD Basophils/100 WBC (Bld) 1 % Normal 0-2 [facility] Comment on above: Performed By: #### B MPX, CDP #### [address] [address] Web Operations Administrator: Quirino Valladares MD Eosinophils (Bld) [#/Vol] 0.11 10*3/uL Normal 0.00-0.44 [facility] Comment on above: Performed By: #### B MPX, CDP #### [facility] [address] [place] [phone] Web Operations Administrator: Quirino Valladares MD Eosinophils/100 WBC (Bld) 2 % Normal 1-4 [facility] Comment on above: Performed By: #### B MPX, CDP #### [facility] [address] [place] [address] Web Operations Administrator: Quirino Valladares MD Erythrocyte distribution width (RBC) [Ratio] 11.9 % Normal 11.8-14.4 [facility] Comment on above: Performed By: #### B MPX, CDP #### [address] [address] Web Operations Administrator: Quirino Valladares MD Hematocrit (Bld) [Volume fraction] 36.8 % Normal 36.3-47.1 [facility] Comment on above: Performed By: #### B MPX, CDP #### [facility] [address] [place] [phone] Web Operations Administrator: Quirino Valladares MD Hemoglobin (Bld) [Mass/Vol] 12.6 g/dL Normal 11.9-15.1 [facility] Comment on above: Performed By: #### B MPX, CDP #### [address] [address] Web Operations Administrator: Quirino Valladares MD Immature granulocytes/100 WBC (Bld) 0 % Normal 0 [facility] Comment on above: Performed By: #### B MPX, CDP #### [address] [address] Web Operations Administrator: Quirino Valladares MD Lymphocytes (Bld) [#/Vol] 2.61 10*3/uL Normal 1.20-5.20 [facility] Comment on above: Performed By: #### B MPX, CDP #### [facility] [address] [place] [phone] Web Operations Administrator: Quirino Valladares MD Lymphocytes/100 WBC (Bld) 45 % Normal 25-45 [facility] Comment on above: Performed By: #### B MPX, CDP #### [facility] [address] [place] [phone] Web Operations Administrator: Quirino Valladares MD MCH (RBC) [Entitic mass] 29.6 pg Normal 25.2-33.5 [facility] Comment on above: Performed By: #### B MPX, CDP #### [address] [address] Web Operations Administrator: Quirino Valladares MD MCHC (RBC) [Mass/Vol] 34.2 g/dL Normal 28.4-34.8 [facility] Comment on above: Performed By: #### B MPX, CDP #### [address] [address] Web Operations Administrator: Quirino Valladares MD MCV (RBC) [Entitic vol] 86.4 fL Normal 82.6-102.9 [facility] Comment on above: Performed By: #### B MPX, CDP #### [address] [address] Web Operations Administrator: Quirino Valladares MD Monocytes (Bld) [#/Vol] 0.52 10*3/uL Normal 0.10-1.40 [facility] Comment on above: Performed By: #### B MPX, CDP #### [address] [address] Web Operations Administrator: Quirino Valladares MD Monocytes/100 WBC (Bld) 9 % High 2-8 [facility] Comment on above: Performed By: #### B MPX, CDP #### [address] [address] Web Operations Administrator: Quirino Valladares MD Neutrophil (Seg) 43 % Normal 34-64 [facility] Comment on above: Performed By: #### B MPX, CDP #### [address] [address] Web Operations Administrator: Quirino Valladares MD NRBC Automated 0.0 per 100 WBC Normal 0.0 [facility] Comment on above: Performed By: #### B MPX, CDP #### [facility] [address] [place] [phone] Web Operations Administrator: Quirino Valladares MD Platelet mean volume (Bld) [Entitic vol] 12.3 fL Normal 8.1-13.5 [facility] Comment on above: Performed By: #### B MPX, CDP #### [facility] [address] [place] [phone] Web Operations Administrator: Quirino Valladares MD Platelets (Bld) [#/Vol] 210 10*3/uL Normal 138-453 [facility] Comment on above: Performed By: #### B MPX, CDP #### [facility] [address] [place] [phone] Web Operations Administrator: Quirino Valladares MD RBC (Bld) [#/Vol] 4.26 10*6/uL Normal 3.95-5.11 [facility] Comment on above: Performed By: #### B MPX, CDP #### [address] [address] Web Operations Administrator: Quirino Valladares MD WBC (Bld) [#/Vol] 5.8 10*3/uL Normal 4.5-13.5 [facility] Comment on above: Performed By: #### B MPX, CDP #### [address] [address] Web Operations Administrator: Quirino Valladares MD Basic Metab w/rfx MGon 08-30 Potassium [Moles/Vol] 3.5 mmol/L Low 3.7-5.3 [facility] Comment on above: Performed By: #### C DP, BMPX, MG #### [address] [address] Web Operations Administrator: Quirino Valladares MD Anion gap [Moles/Vol] 8 mmol/L Low 9-17 [facility] Comment on above: Performed By: #### C DP, BMPX, MG #### [facility] [address] [place] [phone] Web Operations Administrator: Quirino Valladares MD Calcium [Mass/Vol] 8.8 mg/dL Normal 8.6-10.4 [facility] Comment on above: Performed By: #### C DP, BMPX, MG #### [facility] [address] [place] [phone] Web Operations Administrator: Quirino Valladares MD Chloride [Moles/Vol] 105 mmol/L Normal 98-107 [facility] Comment on above: Performed By: #### C DP, BMPX, MG #### [facility] [address] [place] [phone] Web Operations Administrator: Quirino Valladares MD CO2 [Moles/Vol] 23 mmol/L Normal 20-31 [facility] Comment on above: Performed By: #### C DP, BMPX, MG #### [facility] [address] [place] [phone] Web Operations Administrator: Quirino Valladares MD Creatinine [Mass/Vol] 0.8 mg/dL Normal 0.5-0.9 [facility] Comment on above: Performed By: #### C DP, BMPX, MG #### [address] [address] Web Operations Administrator: Quirino Valladares MD GFR/1.73 sq M.predicted among non-blacks MDRD (S/P/Bld) [Vol rate/Area] mL/min/{1.73_m2} Normal >60 [facility] Comment on above: Result Comment: These results are not intended for use in patients <18 years of age. eGFR results are calculated without a race factor using the 2020 CKD-EPI equation. Careful clinical correlation is recommended, particularly when comparing to results calculated using previous equations. The CKD-EPI equation is less accurate in patients with extremes of muscle mass, extra-renal metabolism of creatine, excessive creatine ingestion, or following therapy that affects renal tubular secretion. Performed By: #### C DP, BMPX, MG #### [facility] [address] [place] [phone] Web Operations Administrator: Quirino Valladares MD Glucose [Mass/Vol] 73 mg/dL Normal 70-99 [facility] Comment on above: Performed By: #### C DP, BMPX, MG #### [facility] [address] [place] [phone] Web Operations Administrator: Quirino Valladares MD Sodium [Moles/Vol] 136 mmol/L Normal 135-144 [facility] Comment on above: Performed By: #### C DP, BMPX, MG #### [facility] [address] [place] [address] Web Operations Administrator: Quirino Valladares MD Urea nitrogen [Mass/Vol] 7 mg/dL Normal 6-20 [facility] Comment on above: Performed By: #### C DP, BMPX, MG #### [facility] [address] [place] [address] Web Operations Administrator: Quirino Valladares MD CBC with Diffon 08-30-2023 Abs. Basophil 0.03 k/uL Normal 0.00-0.20 [facility] Comment on above: Performed By: #### C DP, BMPX, MG #### [facility] [address] [place] [phone] Web Operations Administrator: Quirino Valladares MD Abs.Imm.Granulocyte <0.03 Normal 0.00-0.30 [facility] Comment on above: Performed By: #### C DP, BMPX, MG #### [facility] [address] [place] [address] Web Operations Administrator: Quirino Valladares MD Abs.Neutrophil (Seg) 2.17 k/uL Normal 1.80-8.00 [facility] Comment on above: Performed By: #### C DP, BMPX, MG #### [facility] [place] [address] Web Operations Administrator: Quirino Valladares MD Basophils/100 WBC (Bld) 1 % Normal 0-2 [facility] Comment on above: Performed By: #### C DP, BMPX, MG #### [facility] [address] [place] [phone] Web Operations Administrator: Quirino Valladares MD Eosinophils (Bld) [#/Vol] 0.08 10*3/uL Normal 0.00-0.44 [facility] Comment on above: Performed By: #### C DP, BMPX, MG #### [facility] [address] [place] [phone] Web Operations Administrator: Quirino Valladares MD Eosinophils/100 WBC (Bld) 2 % Normal 1-4 [facility] Comment on above: Performed By: #### C DP, BMPX, MG #### [facility] [address] [place] [phone] Web Operations Administrator: Quirino Valladares MD Erythrocyte distribution width (RBC) [Ratio] 11.9 % Normal 11.8-14.4 [facility] Comment on above: Performed By: #### C DP, BMPX, MG #### [facility] [address] [place] [phone] Web Operations Administrator: Quirino Valladares MD Hematocrit (Bld) [Volume fraction] 40.0 % Normal 36.3-47.1 [facility] Comment on above: Performed By: #### C DP, BMPX, MG #### [facility] [address] [place] [phone] Web Operations Administrator: Quirino Valladares MD Hemoglobin (Bld) [Mass/Vol] 13.6 g/dL Normal 11.9-15.1 [facility] Comment on above: Performed By: #### C DP, BMPX, MG #### [facility] [place] [address] Web Operations Administrator: Quirino Valladares MD Immature granulocytes/100 WBC (Bld) 0 % Normal 0 [facility] Comment on above: Performed By: #### C DP, BMPX, MG #### [address] [address] Web Operations Administrator: Quirino Valladares MD Lymphocytes (Bld) [#/Vol] 1.69 10*3/uL Normal 1.20-5.20 [facility] Comment on above: Performed By: #### C DP, BMPX, MG #### [address] [address] Web Operations Administrator: Quirino Valladares MD Lymphocytes/100 WBC (Bld) 38 % Normal 25-45 [facility] Comment on above: Performed By: #### C DP, BMPX, MG #### [facility] [address] [place] [phone] Web Operations Administrator: Quirino Valladares MD MCH (RBC) [Entitic mass] 29.6 pg Normal 25.2-33.5 [facility] Comment on above: Performed By: #### C DP, BMPX, MG #### [facility] [address] [place] [phone] Web Operations Administrator: Quirino Valladares MD MCHC (RBC) [Mass/Vol] 34.0 g/dL Normal 28.4-34.8 [facility] Comment on above: Performed By: #### C DP, BMPX, MG #### [facility] [address] [place] [phone] Web Operations Administrator: Quirino Valladares MD MCV (RBC) [Entitic vol] 87.0 fL Normal 82.6-102.9 [facility] Comment on above: Performed By: #### C DP, BMPX, MG #### [address] [address] Web Operations Administrator: Quirino Valladares MD Monocytes (Bld) [#/Vol] 0.47 10*3/uL Normal 0.10-1.40 [facility] Comment on above: Performed By: #### C DP, BMPX, MG #### [address] [address] Web Operations Administrator: Quirino Valladares MD Monocytes/100 WBC (Bld) 11 % High 2-8 [facility] Comment on above: Performed By: #### C DP, BMPX, MG #### [address] [address] Web Operations Administrator: Quirino Valladares MD Neutrophil (Seg) 48 % Normal 34-64 [facility] Comment on above: Performed By: #### C DP, BMPX, MG #### [address] [address] Web Operations Administrator: Quirino Valladares MD NRBC Automated 0.0 per 100 WBC Normal 0.0 [facility] Comment on above: Performed By: #### C DP, BMPX, MG #### [address] [address] Web Operations Administrator: Quirino Valladares MD Platelet mean volume (Bld) [Entitic vol] 11.8 fL Normal 8.1-13.5 [facility] Comment on above: Performed By: #### C DP, BMPX, MG #### [address] [address] Web Operations Administrator: Quirino Valladares MD Platelets (Bld) [#/Vol] 214 10*3/uL Normal 138-453 [facility] Comment on above: Performed By: #### C DP, BMPX, MG #### [facility] [address] [place] [phone] Web Operations Administrator: Quirino Valladares MD RBC (Bld) [#/Vol] 4.60 10*6/uL Normal 3.95-5.11 [facility] Comment on above: Performed By: #### C DP BMPX, MG #### [facility] [place] [address] Web Operations Administrator: Quirino Valladares MD WBC (Bld) [#/Vol] 4.4 10*3/uL Low 4.5-13.5 [facility] Comment on above: Performed By: #### C DEANGELO DUBOISX, MG #### [address] [address] [address] Web Operations Administrator: Quirino Valladares MD Lamotrigineon 08-30-2023 Lamotrigine <1.0 Low 3.0-15.0 [facility] Comment on above: Result Comment: Neither a therapeutic or toxic range for Lamotrigine have been well established. Some reports suggest a target for steady-state concentrations of 3 - 15 ug/mL. However, there is not a clear relationship between lamotrigine serum concentrations and clinical response. The assay should be used in conjunction with information available from clinical evaluations and other diagnostic procedures. Multiple measurements of lamotrigine may be needed. Performed By: #### L MELBA #### [address] [address] Web Operations Administrator: Quirino Valladares MD Magnesiumon 08-30-2023 Magnesium [Mass/Vol] 2.0 mg/dL Normal 1.6-2.6 [facility] Comment on above: Performed By: #### C DP BMPX, MG #### [facility] [address] [place] [id number] Web Operations Administrator: Quirino Valladares MD RAD - Ultrasound Reporton RAD - Ultrasound Report [id number] 0#[id number] Normal [facility] Physician Referralon 023 Physician Referral [id number] 9D#[id number] Normal [facility] CBC W MANUAL DIFFon 01-05-20 23 ANISOCYTOSIS SLIGHT Normal [facility] Comment on above: Performed By: #### C BCJESSICA #### [facility] [address] [address] [address] Juan Jose Banda ATYPICAL LYMPH # 0.36 103/ul Normal [facility] Comment on above: Performed By: #### C BCJESSICA #### [facility] [address] [place] [address] Dr. Juan Jose Banda ATYPICAL LYMPH % 4 % Normal [facility] Comment on above: Performed By: #### C OSORIO #### [facility] [address] [place] [address] Dr. Juan Jose Banda BAND # 0.0 103/ul Normal 0.0-0.3 [facility] Comment on above: Performed By: #### C BCJESSICA #### [facility] [address] [place] [address] Dr. Juan Jose Banda BAND % 0 % Normal 0-5 [facility] Comment on above: Performed By: #### C BCJESSICA #### [facility] [address] [place] [address] Dr. Juan Jose Banda BASOM # 0.09 103/ul Normal 0.00-0.10 [facility] Comment on above: Performed By: #### C BCJESSICA #### [facility] [address] [place] [address] Dr. Juan Jose Banda BASOM % 1.0 % Normal 0.2-2.0 [facility] Comment on above: Performed By: #### C BCMAN #### [facility] [address] [place] [address] Dr. Juan Jose Banda BLAST # Normal [facility] Comment on above: Performed By: #### C BCJESSICA #### [facility] [address] [place] [address] Dr. Juan Jose Banda BLAST % Normal [facility] Comment on above: Performed By: #### C OSORIO #### [facility] [address] [address] [address] Juan Jose Banda CORRECTED WBC Normal 4.0-11.0 [facility] Comment on above: Performed By: #### C OSOIRO #### [facility] [address] [address] [address] Juan Jose Banda EOS # 0.18 103/ul Normal 0.00-0.70 [facility] Comment on above: Performed By: #### C OSORIO #### [facility] [address] [address] [address] Juan Jose Banda EOS% 2.0 % Normal 0.9-7.0 [facility] Comment on above: Performed By: #### C OSORIO #### [facility] [address] [place] [address] Dr. Juan Jose Banda HCT 34.0 % Critically low 36.0-48.0 [facility] Comment on above: Performed By: #### C OSORIO #### [facility] [address] [place] [address] Dr. Juan Jose Banda HGB 11.8 g/dl Critically low 12.0-16.0 [facility] Comment on above: Performed By: #### C OSORIO #### [facility] [address] [place] [address] Dr. Juan Jose Banda LYMPHM # 1.55 103/ul Normal 1.20-3.80 [facility] Comment on above: Performed By: #### C OSORIO #### [facility] [address] [place] [address] Dr. Juan Jose Banda LYMPHM% 17.0 % Critically low 20.5-60.0 [facility] Comment on above: Performed By: #### C OSORIO #### [facility] [address] [place] [address] Dr. Juan Jose Banda MCH 29.0 pg Normal 26.7-34.0 [facility] Comment on above: Performed By: #### C OSORIO #### [facility] [address] [place] [address] Dr. Juan Jose Banda MCHC 34.7 g/dl Normal 29.9-35.2 [facility] Comment on above: Performed By: #### C BCMAN #### [facility] [address] [place] [address] Dr. Juan Jose Banda MCV 83.5 fL Normal 81.0-99.0 [facility] Comment on above: Performed By: #### C BCMAN #### [facility] [address] [place] [address] Dr. Juan Jose Banda METAMYELOCYTE # Normal [facility] Comment on above: Performed By: #### C BCJESSICA #### [facility] [address] [place] [address] Dr. Juan Jose Banda METAMYELOCYTE % Normal [facility] Comment on above: Performed By: #### C OSORIO #### [facility] [address] [place] [address] Dr. Juan Jose Banda MICROCYTOSIS SLIGHT Normal [facility] Comment on above: Performed By: #### C BCJESSICA #### [facility] [address] [place] [address] Dr. Juan Jose Banda MONOM# 1.00 103/ul Critically high 0.30-0.80 [facility] Comment on above: Performed By: #### C BCJESSICA #### [facility] [address] [place] [address] Dr. Juan Jose Banda MONOM% 11.0 % Normal 1.7-12.0 [facility] Comment on above: Performed By: #### C BCJESSICA #### [facility] [address] [place] [address] Dr. Juan Jose Banda MPV 11.2 fL Normal 9.5-13.5 [facility] Comment on above: Performed By: #### C BCMAN #### [facility] [address] [place] [address] Dr. Juan Jose Banda MYELOCYTE # Normal [facility] Comment on above: Performed By: #### C OSORIO #### [facility] [address] [place] [address] Dr. Juan Jose Banda MYELOCYTE % Normal [facility] Comment on above: Performed By: #### C OSOIRO #### [facility] [address] [place] [address] Dr. Juan Jose Banda NRBC Normal [facility] Comment on above: Performed By: #### C OSORIO #### [facility] [address] [place] [address] Dr. Juan Jose Banda PLT 180 103/ul Normal 150-450 [facility] Comment on above: Performed By: #### C OSORIO #### [facility] [address] [address] [address] Juan Jose Banda RBC 4.07 106/ul Critically low 4.20-5.40 [facility] Comment on above: Performed By: #### C OSORIO #### [facility] [address] [place] [address] Dr. Juan Jose Banda RDW 11.9 % Normal 11.0-15.0 [facility] Comment on above: Performed By: #### C OSORIO #### [facility] [address] [place] [address] Dr. Juan Jose Banda SEG # 5.92 103/ul Normal 1.40-6.50 [facility] Comment on above: Performed By: #### C OSORIO #### [facility] [address] [place] [address] Dr. Juan Jose Banda SEG % 65.0 % Normal 43.0-75.0 [facility] Comment on above: Performed By: #### C OSORIO #### [facility] [address] [place] [address] Dr. Juan Jose Banda WBC 9.1 103/ul Normal 4.0-11.0 [facility] Comment on above: Performed By: #### C OSORIO #### [facility] [address] [place] [address] Dr. Juan Jose Banda DRUG SCREEN RAPID (URINE)on 01-04-2023 AMP Negative Normal NEGATIVE [facility] Comment on above: Performed By: #### U RCX #### [facility] [address] [place] [address] Dr. Juan Jose Banda BAR Negative Normal NEGATIVE [facility] Comment on above: Performed By: #### U RCX #### [facility] [address] [address] [address] Juan Jose Banda BUP Negative Normal NEGATIVE [facility] Comment on above: Performed By: #### U RCX #### [facility] [address] [address] [address] Juan Jose Banda BZO Negative Normal NEGATIVE [facility] Comment on above: Performed By: #### U RCX #### [facility] [address] [address] [address] Juan Jose Banda LUCIO Negative Normal NEGATIVE [facility] Comment on above: Performed By: #### U RCX #### [facility] [address] [place] [address] Dr. Juan Jose Banda CUT-OFFS SEE BELOW Normal [facility] Comment on above: Result Comment: AMP (Amphetamine): 500ng/mL, BAR (Barbituates): 200 ng/mL, BZO (Benzodiazepines): 150 ng/mL, BUP (Buprenorphine): 10 ng/mL, LUCIO (Cocaine): 150 ng/mL, mAMP (Methamphetamine): 500 ng/mL, MTD (Methadone): 200 ng/mL, OPI (Opiates): 100 ng/mL, OXY (Oxycodone): 100 ng/mL, PCP (Phencyclidine): 25 ng/mL, PPX (Propoxyphene): 300 ng/mL, THC (Cannabinoids): 50 ng/mL, TCA (Trycyclic Antidepressants): 300 ng/mL Performed By: #### U RCX #### [facility] [address] [place] [address] Dr. Juan Jose Banda DRUG CUT HEADER DRUG CLASS TEST SYSTEM CUT-OFF CONCENTRATIONS ARE FOLLOWS: Normal [facility] Comment on above: Performed By: #### U RCX #### [facility] [address] [place] [address] Dr. Juan Jose Banda mAMP Negative Normal NEGATIVE [facility] Comment on above: Performed By: #### U RCX #### [facility] [address] [address] [address] Juan Jose Banda MTD Negative Normal NEGATIVE [facility] Comment on above: Performed By: #### U RCX #### [facility] [address] [place] [address] Dr. Juan Jose Banda OPI Negative Normal NEGATIVE [facility] Comment on above: Performed By: #### U RCX #### [facility] [address] [place] [address] Dr. Juan Jose Banda OXY Negative Normal NEGATIVE [facility] Comment on above: Performed By: #### U RCX #### [facility] [address] [place] [address] Dr. Juan Jose Banda PCP Negative Normal NEGATIVE [facility] Comment on above: Performed By: #### U RCX #### [facility] [address] [place] [address] Dr. Juan Jose Banda PPX Negative Normal NEGATIVE [facility] Comment on above: Performed By: #### U RCX #### [facility] [address] [place] [address] Dr. Juan Jose Banda TCA Negative Normal NEGATIVE [facility] Comment on above: Performed By: #### U RCX #### [facility] [address] [place] [address] Dr. Juan Jose Banda THC Negative Normal NEGATIVE [facility] Comment on above: Performed By: #### U RCX #### [facility] [address] [place] [address] Dr. Juan Jose Banda TYPE AND SCREENon 01-04-2023 TYPE AND SCREEN Negative Normal [facility] Comment on above: Performed By: #### C BCMAN #### [facility] [address] [place] [address] Dr. Juan Jose Banda US PREG BIOPHY W NON STRESSo n 12-31-2022 US PREG BIOPHY W NON STRESS EXAMINATION: US PREG BIOPHY W NON STRESS HISTORY: Poor growth affecting management COMPARISON: No relevant comparison available. TECHNIQUE: Ultrasound biophysical profile was performed in the radiology department. FINDINGS: BREATHING MOVEMENTS: 2.0 GROSS BODY MOVEMENTS: 2.0 TONE: 2.0 QUALITATIVE AMNIOTIC FLUID VOLUME: 2.0 PRESENTATION: CEPHALIC HEART RATE: 163.6 bpm H.B./min AMNIOTIC FLUID VOLUME: 14.0 cm cm GESTATIONAL AGE: 36 weeks 4 days CONCLUSION: Total biophysical profile score: 8.0 Electronically authenticated by: YO MESA Date: 2022-12-31 17:02 Normal [facility] US PREG UMBILICAL ARTERYon 0 12-31-2022 US PREG UMBILICAL ARTERY EXAMINATION: US PREG UMBILICAL ARTERY HISTORY: Poor growth affecting management COMPARISON: No relevant comparison available. TECHNIQUE: Duplex Doppler evaluation of the umbilical arteries. FINDINGS: position: Cephalic presentation, longitudinal lie Amniotic fluid volume 14 cm, normal, largest fluid pocket: 5.6 cm Placenta: Grade 2. 2 umbilical arteries Proximal umbilical artery: 77/35 cm/s. RI 0.54. Ratio 2.2. Mid umbilical artery: 94/41 cm/s. RI 0.56. Ratio 2.3. Distal umbilical artery: 90/33 cm/s. RI 0.64. Ratio 2.8 Forward flow identified throughout diastole Gestational age: 36 weeks 4 days IMPRESSION: Class 0, normal Umbilical Artery: Class 0 = Normal umbilical artery blood velocity Class I = increased RI or PI, but still forward flow in diastole Class II = Absent end diastolic flow (AEDF) Class III = Reversal of end diastolic flow (REDF) Resistive Index (RI)<1 Systolic/Diastolic ratio (S:D): An S:D ratio of 2-3 after 34 wks is normal Systolic/Diastolic ratio (S:D): Age 16: 3.01 for the 10th percentile, 4.25 for the 50th percentile, 6.07 for the 90th percentile Age 20: 3.16 for the 10th percentile, 4.04 for the 50th percentile, 5.24 for the 90th percentile Age 24: 2.70 for the 10th percentile, 3.50 for the 50th percentile, 4.75 for the 90th percentile Age 28: 2.41 for the 10th percentile, 3.02 for the 50th percentile, 3.97 for the 90th percentile Age 30: 2.43 for the 10th percentile, 3.04 for the 50th percentile, 3.80 for the 90th percentile Age 32: 2.27 for the 10th percentile, 2.73 for the 50th percentile, 3.57 for the 90th percentile Age 34: 2.08 for the 10th percentile, 2.52 for the 50th percentile, 3.41 for the 90th percentile Age 36: 1.96 for the 10th percentile, 2.35 for the 50th percentile, 3.15 for the 90th percentile Age 38: 1.89 for the 10th percentile, 2.24 for the 50th percentile, 3.10 for the 90th percentile Age 40: 1.88 for the 10th percentile, 2.22 for the 50th percentile, 2.68 for the 90th percentile Age 41: 1.93 for the 10th percentile, 2.21 for the 50th percentile, 2.55 for the 90th percentile Age 42: 1.91 for the 10th percentile, 2.51 for the 50th percentile, 3.21 for the 90th percentile Uteroplacental Artery: Resistive Index (RI): Normal=<0.55 High Resistance=Bilatera l notches (after 26 wks) and RI>0.55. Unilateral notches (after 26 wks) and RI>0.65 Systolic/Diastolic ratio (S:D) = 2-3 is normal after 32 weeks. Electronically authenticated by: YO MESA Date: 2022-12-31 17:18 Normal [facility] GROUP B STREP CULTUREon 12-07 S. agalactiae Ag Ql (Unsp spec) Culture Observations: NEGATIVE FOR GROUP B STREPTOCOCCUS. Normal [facility] Comment on above: Performed By: #### G BSCX #### [facility] [address] [place] [address] Dr. Juan Jose Banda US PREG BIOPHY W NON STRESSo n 12-24-2022 US PREG BIOPHY W NON STRESS EXAMINATION: US PREG BIOPHY W NON STRESS HISTORY: Poor growth affecting management COMPARISON: No relevant comparison available. FINDINGS: BREATHING MOVEMENTS: 2.0 GROSS BODY MOVEMENTS: 2.0 TONE: 2.0 QUALITATIVE AMNIOTIC FLUID VOLUME: 2.0 PRESENTATION: CEPHALIC HEART RATE: 150.8 bpm bpm. AMNIOTIC FLUID VOLUME: 13.4 cm GESTATIONAL AGE: 35 weeks 4 days CONCLUSION: Total biophysical profile score 8.0. Electronically authenticated by: LUISA ARCHIBALD Date: 2022-12-24 11:23 Normal [facility] US PREG UMBILICAL ARTERYon 0 12-24-2022 US PREG UMBILICAL ARTERY EXAMINATION: US PREG UMBILICAL ARTERY HISTORY: Poor growth affecting management COMPARISON: No relevant comparison available. TECHNIQUE: Duplex Doppler evaluation of the umbilical arteries. FINDINGS: HEART RATE: 151 bpm UMBILICAL ARTERIES: 2 GESTATIONAL AGE: 35 weeks 4 days WAVEFORM: Normal upstroke. No notching. Forward flow in diastole. PEAK SYSTOLIC VELOCITY: 103 cm/s END DIASTOLIC VELOCITY: 45 cm/s SYST/DIAST RATIO (S:D): 2.2 RESISTIVE INDEX: 0.5 IMPRESSION: Class 0 = Normal umbilical artery blood velocity Electronically authenticated by: LUISA ARCHIBALD Date: 2022-12-24 11:58 Normal [facility] UA (CLEAN/CATCH) FIELD CONTACT TECHNICIAN/MICRO I F IND.on 12-22-2022 Bilirubin Ql (U) Negative Normal NEGATIVE [facility] Comment on above: Performed By: #### C BCMAN #### [facility] [address] [place] [address] Dr. Juan Jose Banda Clarity (U) CLEAR Normal CLEAR [facility] Comment on above: Performed By: #### C BCMAN #### [facility] [address] [address] [address] Juan Jose Banda Color (U) LT. YELLOW Normal YELLOW [facility] Comment on above: Performed By: #### C BCMAN #### [facility] [address] [address] [address] Juan Jose Banda Glucose Ql (U) Negative Normal NEGATIVE [facility] Comment on above: Performed By: #### C BCMAN #### [facility] [address] [address] [address] Juan Jose Banda Hemoglobin Ql (U) Negative Normal NEGATIVE [facility] Comment on above: Performed By: #### C BCMAN #### [facility] [address] [address] [address] Juan Jose aBnda Ketones Ql (U) Negative Normal NEGATIVE [facility] Comment on above: Performed By: #### C BCMAN #### [facility] [address] [place] [address] Dr. Juan Jose Banda LEUKOCYTES SMALL Abnormal NEGATIVE [facility] Comment on above: Performed By: #### C BCMAN #### [facility] [address] [place] [address] Dr. Juan Jose Banda Nitrite Ql (U) Negative Normal NEGATIVE [facility] Comment on above: Performed By: #### C OSORIO #### [facility] [address] [place] [address] Dr. Juan Jose Banda pH (U) 6.0 [pH] Normal 5-9 [facility] Comment on above: Performed By: #### C OSORIO #### [facility] [address] [place] [address] Dr. Juan Jose Banda SPEC GRAVITY <=1.005 Abnormal 1.005-<=1.025 [facility] Comment on above: Performed By: #### C OSORIO #### [facility] [address] [place] [address] Dr. Juan Jose Banda UA PROTEIN Negative Normal NEGATIVE/ TRACE [facility] Comment on above: Performed By: #### C OSORIO #### [facility] [address] [place] [address] Dr. Juan Jose Banda UR MICRO IND INDICATED Normal [facility] Comment on above: Performed By: #### C OSORIO #### [facility] [address] [place] [address] Dr. Juan Jose Banda Urobilinogen Qn (U) 0.2 {Tyler'U}/dL Normal 0.2 - 1. 0 [facility] Comment on above: Performed By: #### C OSORIO #### [facility] [address] [place] [address] Dr. Juan Jose Banda URINE MICROSCOPIC ONLYon BACTERIA NONE SEEN Normal NONE SEEN [facility] Comment on above: Performed By: #### C OSORIO #### [facility] [address] [place] [address] Dr. Juan Jose Banda Bacteria identified Cx Nom (U) NOT INDICATED Normal [facility] Comment on above: Performed By: #### C OSORIO #### [facility] [address] [place] [address] Dr. Juan Jose Banda CAST NONE SEEN Normal NONE SEEN [facility] Comment on above: Performed By: #### C OSORIO #### [facility] [address] [address] [address] Juan Jose Banda Crystals LM Nom (Urine sed) NONE SEEN Normal NONE SEEN [facility] Comment on above: Performed By: #### C BCMAN #### [facility] [address] [place] [address] Dr. Juan Jose Banda Epithelial cells LM Ql (Urine sed) MANY Abnormal NONE SEEN /RARE [facility] Comment on above: Performed By: #### C BCMAN #### [facility] [address] [place] [address] Dr. Juan Jose Banda MUCOUS NONE SEEN Normal NONE SEEN [facility] Comment on above: Performed By: #### C BCMAN #### [facility] [address] [place] [address] Dr. Juan Jose Banda RBC NONE SEEN Abnormal 0-2 [facility] Comment on above: Performed By: #### C BCMAN #### [facility] [address] [place] [address] Dr. Juan Jose Bnada WBC 2-5 Abnormal NONE SEEN [facility] Comment on above: Performed By: #### C BCMAN #### [facility] [address] [place] [address] Dr. Juan Jose Banda US PREG BIOPHY W NON STRESSo n 12-22-2022 US PREG BIOPHY W NON STRESS EXAM: US PREG BIOPHY W NON STRESS HISTORY: Abdominal pain. COMPARISON: 12/22/2022 and 12/20/2022 TECHNIQUE: Multiple real-time transabdominal images were obtained of the uterus for biophysical profile. PRESENTATION: Cephalic. PLACENTA LOCATION: Posterior. EVELYN: 11.2 cm. CARDIAC ACTIVITY: 1:30 bpm. AVERAGE ULTRASOUND AGE: . Biophysical Profile/BPP: Movement: 2 Breathing Movements: 2 Tone: 2 Amniotic Fluid Volume: 2 Total: 8/8 IMPRESSION: Biophysical profile score of 8/8. Electronically authenticated by: DALLIN HERNANDEZ Date: 2022-12-22 20:55 Normal [facility] US PREG PLACENTAon US PREG PLACENTA EXAM: US PREG PLACENTA HISTORY: Abdominal pain. COMPARISON: 12/20/2022 TECHNIQUE: Multiple real-time transabdominal images were obtained of the uterus for evaluation of the placenta.. PRESENTATION: Cephalic. PLACENTA LOCATION: Posterior in the fundus. Grade 2 placenta. CARDIAC ACTIVITY: 134 bpm. ADDITIONAL COMMENTS: None. IMPRESSION: Posterior placenta with punctate calcifications throughout, without evidence for previa. Grade 2 placenta. Electronically authenticated by: DALLIN HERNANDEZ Date: 2022-12-22 20:52 Normal [facility] US PREG GROWTHon 12-20-2022 US PREG GROWTH EXAMINATION: US PREG GROWTH HISTORY: Uterine size for dates discrepancy COMPARISON: Ultrasound anatomy 09/28/2022 FINDINGS: Heart Rate: 159.8 bpm Number: 1.0 Position: Cephalic Amniotic Fluid Volume: 13.9 cm Maximum Vertical Pocket: 4.0 cm BIOMETRY: BPD: 8.1 cm cm; 32 weeks 3 days; <3% HC: 30.5 cmcm; 34 weeks 0 days; 5% AC: 28.2 cm cm; 32 weeks 2 days; <3% FL: 6.4 cm cm; 33 weeks 1 days; 7% EFW: 2035.8 grams; 5% FL/AC: 22.8 FL/BPD: 79.5 HC/AC: 1.1 GESTATIONAL AGE: Age by EDC: 35 weeks 0 days TRACI by EDC: 01/24/2023 Age by US: 33 weeks 0 days TRACI by US: 02/07/2023 IMPRESSION: 1. Single live intrauterine with growth detailed above. 2. Estimated weight is at the fifth percentile. 3. Prominent urinary bladder which persisted throughout the study no appreciable dilated renal pelvis; consider follow-up. Electronically authenticated by: LUISA ARCHIBALD Date: 2022-12-20 15:23 Normal [facility] CULTURE URINEon 12-17-2022 CULTURE URINE Culture Observations: LIGHT GROWTH OF MIXED GENITAL CHEVY. NO POTENTIAL PATHOGENS SEEN. Normal [facility] Comment on above: Performed By: #### U RCX #### [facility] [address] [place] [address] Dr. Juan Jose Banda UA (CLEAN/CATCH) FIELD CONTACT TECHNICIAN/MICRO I F IND.on 12-17-2022 Bilirubin Ql (U) Negative Normal NEGATIVE [facility] Comment on above: Performed By: #### H IV12 #### [facility] [address] [place] [address] Dr. Juan Jose Banda Clarity (U) CLEAR Normal CLEAR [facility] Comment on above: Performed By: #### H IV12 #### [facility] [address] [place] [address] Dr. Juan Jose Banda Color (U) LT. YELLOW Normal YELLOW [facility] Comment on above: Performed By: #### H IV12 #### [facility] [address] [place] [address] Dr. Juan Jose Banda Glucose Ql (U) Negative Normal NEGATIVE [facility] Comment on above: Performed By: #### H IV12 #### [facility] [address] [place] [address] Dr. Juan Jose Banda Hemoglobin Ql (U) Negative Normal NEGATIVE [facility] Comment on above: Performed By: #### H IV12 #### [facility] [address] [place] [address] Dr. Juan Jose Banda Ketones Ql (U) Negative Normal NEGATIVE [facility] Comment on above: Performed By: #### H IV12 #### [facility] [address] [place] [address] Dr. Juan Jose Banda LEUKOCYTES MODERATE Abnormal NEGATIVE [facility] Comment on above: Performed By: #### H IV12 #### [facility] [address] [place] [address] Dr. Juan Jose Banda Nitrite Ql (U) Negative Normal NEGATIVE [facility] Comment on above: Performed By: #### H IV12 #### [facility] [address] [place] [address] Dr. Juan Jose Banda pH (U) 6.5 [pH] Normal 5-9 [facility] Comment on above: Performed By: #### H IV12 #### [facility] [address] [place] [address] Dr. Juan Jose Banda SPEC GRAVITY <=1.005 Abnormal 1.005-<=1.025 [facility] Comment on above: Performed By: #### H IV12 #### [facility] [address] [place] [address] Dr. uJan Jose Banda UA PROTEIN Negative Normal NEGATIVE/ TRACE [facility] Comment on above: Performed By: #### H IV12 #### [facility] [address] [place] [address] Dr. Juan Jose Banda UR MICRO IND INDICATED Normal [facility] Comment on above: Performed By: #### H IV12 #### [facility] [address] [place] [address] Dr. Juan Jose Banda Urobilinogen Qn (U) 0.2 {Tyler'U}/dL Normal 0.2 - 1. 0 [facility] Comment on above: Performed By: #### H IV12 #### [facility] [address] [place] [address] Dr. Juan Jose Banda URINE MICROSCOPIC ONLYon BACTERIA TRACE Abnormal NONE SEEN [facility] Comment on above: Performed By: #### R PRQ #### [facility] [address] [place] [address] Dr. Juan Jose Banda Bacteria identified Cx Nom (U) INDICATED Normal [facility] Comment on above: Performed By: #### R PRQ #### [facility] [address] [place] [address] Dr. Juan Jose Banda CAST NONE SEEN Normal NONE SEEN [facility] Comment on above: Performed By: #### R PRQ #### [facility] [address] [place] [address] Dr. Juan Jose Banda Crystals LM Nom (Urine sed) NONE SEEN Normal NONE SEEN [facility] Comment on above: Performed By: #### R PRQ #### [facility] [address] [place] [address] Dr. Juan Jose Banda Epithelial cells LM Ql (Urine sed) MODERATE Abnormal NONE SEEN /RARE [facility] Comment on above: Performed By: #### R PRQ #### [facility] [address] [address] [address] Juan Jose Banda MUCOUS NONE SEEN Normal NONE SEEN [facility] Comment on above: Performed By: #### R PRQ #### [facility] [address] [address] [address] Juan Jose Banda RBC 2-5 Abnormal 0-2 [facility] Comment on above: Performed By: #### R PRQ #### [facility] [address] [place] [address] Dr. Juan Jose Banda WBC 5-10 Abnormal NONE SEEN [facility] Comment on above: Performed By: #### R PRQ #### [facility] [address] [place] [address] Dr. Juan Jose Banda YEAST PRESENT Abnormal NONE SEEN [facility] Comment on above: Result Comment: rare Performed By: #### R PRQ #### [facility] [address] [place] [address] Dr. Juan Jose Banda CARDIAC GUSTAVO ADMITon 023 CK [Catalytic activity/Vol] 33 U/L Normal 26-192 [facility] Comment on above: Performed By: #### S EDR #### [facility] [address] [place] [address] Dr. Juan Jose Banda CK.MB [Mass/Vol] ng/mL Normal <=3.60 [facility] Comment on above: Performed By: #### S EDR #### [facility] [address] [place] [address] Dr. Juan Jose Banda HSTROP <4.0 Normal 4.0-51.3 [facility] Comment on above: Result Comment: CUT- OFF POINTS HAVE BEEN ESTABLISHED BASED ON THE FOURTH UNIVERSAL DEFINITIONS OF MYOCARDIAL INFARCTION. THE UPPER REFERENCE LIMIT (URL) OF TROPONIN, DEFINED THE 99TH PERCENTILE OF cTnI DISTRIBUTION IN A REFERENCE POPULATION, HAS BEEN CONFIRMED THE DECISION THRESHOLD FOR MS DIAGNOSIS. Performed By: #### S EDR #### [facility] [address] [place] [address] Dr. Juan Jose Banda OTTO 17 ng/mL Normal 9-82 [facility] Comment on above: Performed By: #### S EDR #### [facility] [address] [address] [address] Juan Jose Banda CBC AUTO DIFFon 11-04-2022 BASO # 0.0 103/ul Normal 0.0-0.1 [facility] Comment on above: Performed By: #### U RCX #### [facility] [address] [address] [address] Juan Jose Banda Basophils/100 WBC (Bld) 0.2 % Normal 0.2-2.0 [facility] Comment on above: Performed By: #### U RCX #### [facility] [address] [place] [address] Dr. Juan Jose Banda EO # 0.0 103/ul Normal 0.0-0.7 [facility] Comment on above: Performed By: #### U RCX #### [facility] [address] [place] [address] Dr. Juan Jose Banda Eosinophils/100 WBC (Bld) 0.4 % Critically low 0.9-7.0 [facility] Comment on above: Performed By: #### U RCX #### [facility] [address] [place] [address] Dr. uJan Jose Banda Erythrocyte distribution width (RBC) [Ratio] 12.4 % Normal 11.0-15.0 [facility] Comment on above: Performed By: #### U RCX #### [facility] [address] [place] [address] Dr. Juan Jose Banda Hematocrit (Bld) [Volume fraction] 33.7 % Critically low 36.0-48.0 [facility] Comment on above: Performed By: #### U RCX #### [facility] [address] [address] [address] Juan Jose Banda Hemoglobin (Bld) [Mass/Vol] 12.1 g/dL Normal 12.0-16.0 [facility] Comment on above: Performed By: #### U RCX #### [facility] [address] [address] [address] Juan Jose Banda IG # 0.09 10e3/ul Critically high 0.00-0.03 [facility] Comment on above: Performed By: #### U RCX #### [facility] [address] [address] [address] Juan Jose Banda IG % 1.1 % Critically high 0.0-0.5 [facility] Comment on above: Performed By: #### U RCX #### [facility] [address] [address] [address] Juan Jose Banda LYMPH # 1.5 103/ul Normal 1.2-3.8 [facility] Comment on above: Performed By: #### U RCX #### [facility] [address] [address] [address] Juan Jose Banda Lymphocytes/100 WBC (Bld) 17.1 % Critically low 20.5-60.0 [facility] Comment on above: Performed By: #### U RCX #### [facility] [address] [address] [address] Juan Jose Banda MANUAL DIFF REQ NO Normal [facility] Comment on above: Performed By: #### U RCX #### [facility] [address] [address] [address] Juan Jose Banda MCH (RBC) [Entitic mass] 30.5 pg Normal 26.7-34.0 [facility] Comment on above: Performed By: #### U RCX #### [facility] [address] [address] [address] Juan Jose Banda MCHC (RBC) [Mass/Vol] 35.9 g/dL Critically high 29.9-35.2 [facility] Comment on above: Performed By: #### U RCX #### [facility] [address] [address] [address] Juan Jose Banda MCV (RBC) [Entitic vol] 84.9 fL Normal 81.0-99.0 [facility] Comment on above: Performed By: #### U RCX #### [facility] [address] [address] [address] Juan Jose Banda MONO # 0.8 103/ul Normal 0.3-0.8 [facility] Comment on above: Performed By: #### U RCX #### [facility] [address] [address] [address] Juan Jose Banda Monocytes/100 WBC (Bld) 9.8 % Normal 1.7-12.0 [facility] Comment on above: Performed By: #### U RCX #### [facility] [address] [address] [address] Juan Jose Banda NEUT # 6.1 103/ul Normal 1.4-6.5 [facility] Comment on above: Performed By: #### U RCX #### [facility] [address] [address] [address] Juan Jose Banda Neutrophils/100 WBC (Bld) 71.4 % Normal 43.0-75.0 [facility] Comment on above: Performed By: #### U RCX #### [facility] [address] [address] [address] Juan Jose Banda Platelet mean volume (Bld) [Entitic vol] 11.2 fL Normal 9.5-13.5 [facility] Comment on above: Performed By: #### U RCX #### [facility] [address] [address] [address] Juan Jose Banda PLT 196 103/ul Normal 150-450 [facility] Comment on above: Performed By: #### U RCX #### [facility] [address] [address] [address] Juan Jose Banda RBC 3.97 106/ul Critically low 4.20-5.40 [facility] Comment on above: Performed By: #### U RCX #### [facility] [address] [address] [address] Juan Jose Banda WBC 8.5 103/ul Normal 4.0-11.0 [facility] Comment on above: Performed By: #### U RCX #### [facility] [address] [address] [address] Juan Jose Banda LIVER PROFILEon 11-04-2022 Albumin [Mass/Vol] 3.0 g/dL Critically low 3.4-5.0 [facility] Comment on above: Performed By: #### S EDR #### [facility] [address] [address] [address] Juan Jose Banda Albumin/Globulin [Mass ratio] 0.9 {ratio} Normal [facility] Comment on above: Performed By: #### S EDR #### [facility] [address] [address] [address] Juan Jose Banda ALP [Catalytic activity/Vol] 76 U/L Normal 46-116 [facility] Comment on above: Performed By: #### S EDR #### [facility] [address] [address] [address] Jaun Jose Banda ALT [Catalytic activity/Vol] 13 U/L Critically low 14-59 [facility] Comment on above: Performed By: #### S EDR #### [facility] [address] [address] [address] Juan Jose Banda AST [Catalytic activity/Vol] 14 U/L Critically low 15-37 [facility] Comment on above: Performed By: #### S EDR #### [facility] [address] [address] [address] Juan Jose Banda BILI, CONJUGATED 0.1 mg/dL Normal 0.0-0.2 [facility] Comment on above: Performed By: #### S EDR #### [facility] [address] [address] [address] Juan Jose Banda Bilirubin [Mass/Vol] 0.3 mg/dL Normal 0.2-1.0 [facility] Comment on above: Performed By: #### S EDR #### [facility] [address] [address] [address] Juan Jose Banda Globulin (S) [Mass/Vol] 3.4 g/dL Normal [facility] Comment on above: Performed By: #### S EDR #### [facility] [address] [address] [address] Juan Jose Banda Protein [Mass/Vol] 6.4 g/dL Normal 6.4-8.2 [facility] Comment on above: Performed By: #### S EDR #### [facility] [address] [address] [address] Juan Jose Banda BOX TEST SENT OUTon 10-01-19 23 SENT TO REF LAB 10/01/2022 Normal [facility] Comment on above: Performed By: #### S EDR #### [facility] [address] [id number] Juan Jose Banda US PREG ANATOMY SINGLEon US PREG ANATOMY SINGLE EXAMINATION: US PREG ANATOMY SINGLE HISTORY: Routine care COMPARISON: No relevant comparison available. TECHNIQUE: Transabdominal sonographic examination was performed for obstetrical and evaluation. FINDINGS: Number: 1 Heart Rate: 137.1 bpm H.B. /min Amniotic Fluid Volume: Subjectively normal Placental Location: POSTERIOR with lower margin 2.1 cm from os. Cervix Length: 4.3 cm , closed. ANATOMY: Normal Structures -cerebellum, choroid plexus, cisterna magna, lateral cerebral ventricles, orbits, midline falx, four-chamber heart, RVOT, LVOT, stomach, kidneys, bladder, umbilical cord insertion into abdomen, three-vessel cord, cervical spine, thoracic spine, lumbar spine, sacral spine, right upper extremity, left upper extremity, right lower extremity, left lower extremity. SUBOPTIMALLY SEEN: Hard palate ABNORMALITIES: None BIOMETRY: BPD: 5.2 cm 21 weeks 5 days; 5% HC: 20.2 cm 22 weeks 3 days; 11% AC: 17.8 cm 22 weeks 5 days; 28% FL: 4.2 cm 23 weeks 4 days; 55% EFW:552.8 grams; 35% FL/AC: 23.5 FL/BPD: 81.1 HC/AC: 1.1 GESTATIONAL AGE: Age by EDC: 23 weeks 1 days TRACI by EDC: 01/24/2023 Age by current US: 22 weeks 4 days TRACI by current US: 01/28/2023 IMPRESSION: 1. Single live intrauterine with growth detailed above. 2. Suboptimal visualization of the hard palate due to position. Electronically authenticated by: LUISA ARCHIBALD Date: 2022-09-29 16:29 Normal [facility] HEP B SURFACE ANTIGEN SCREEN on 08-26-2022 HBsAg Screen Negative Normal Negative [facility] Comment on above: Performed By: #### S EDR #### [facility] [address] [address] [address] Juan Jose Banda HEPATITIS C VIRUS AB W/ REFL EX QUANTon 08-26-2022 HCV AB <0.1 Normal 0.0-0.9 [facility] Comment on above: Performed By: #### R PRQ #### [facility] [address] [address] [address] Juan Jose Banda Interpretation: Comment Normal [facility] Comment on above: Result Comment: Nega tive Not infected with HCV, unless recent infection is suspected or other evidence exists to indicate HCV infection. Performed By: #### R PRQ #### [facility] [address] [place] [address] Dr. Juan Jose Banda HIV 1 AND 2 WITH REFLEXon HIV Screen 4th Generation wRfx Non-Reactive Normal Non Reactive [facility] Comment on above: Result Comment: HIV Negative HIV-1/HIV-2 antibodies and HIV-1 p24 antigen were NOT detected. There is no laboratory evidence of HIV infection. Performed By: #### H IV12 #### [facility] [address] [place] [address] Dr. Juan Jose Banda RPR QUANTon 08-26-2022 Rapid Plasma Reagin, Quant Non-Reactive Normal NonRea<1:1 [facility] Comment on above: Result Comment: Plea se Note: This test does not meet current guidelines for screening and diagnosis of syphilis. This test is intended for following treatment response in patients being treated for syphilis infection. To screen for syphilis infection, a reflex cascade that includes both RPR and a treponema-specific assay should be utilized, such as Treponema pallidum (Syphilis) Screening [place] (033969) or Rapid Plasma Reagin (RPR) Test With Reflex to Quantitative RPR and Confirmatory Treponema pallidum Antibodies (115607). Performed By: #### R PRQ #### [facility] [address] [place] [address] Dr. Juan Jose Banda RUBELLA AB IGGon 08-26-2022 Rubella Antibodies, IgG 2.56 index Normal Immune >0.99 [facility] Comment on above: Result Comment: Non- immune <0.90 Equivocal 0.90 - 0.99 Immune >0.99 Performed By: #### S EDR #### [facility] [address] [place] [address] Dr. Juan Jose Banda CULTURE URINEon 08-25-2022 CULTURE URINE Culture Observations: LIGHT GROWTH OF MIXED GENITAL CHEVY. NO POTENTIAL PATHOGENS SEEN. Normal [facility] Comment on above: Performed By: #### U RCX #### [facility] [address] [place] [address] Dr. Juan Jose Banda CBC AUTO DIFFon 08-24-2022 BASO # 0.0 103/ul Normal 0.0-0.1 [facility] Comment on above: Performed By: #### S EDR #### [facility] [address] [place] [address] Dr. Juan Jose Banda Basophils/100 WBC (Bld) 0.4 % Normal 0.2-2.0 [facility] Comment on above: Performed By: #### S EDR #### [facility] [address] [place] [address] Dr. Juan Jose Banda EO # 0.1 103/ul Normal 0.0-0.7 [facility] Comment on above: Performed By: #### S EDR #### [facility] [address] [place] [address] Dr. Juan Jose Banda Eosinophils/100 WBC (Bld) 1.4 % Normal 0.9-7.0 [facility] Comment on above: Performed By: #### S EDR #### [facility] [address] [place] [address] Dr. Juan Jose Banda Erythrocyte distribution width (RBC) [Ratio] 12.2 % Normal 11.0-15.0 [facility] Comment on above: Performed By: #### S EDR #### [facility] [address] [place] [address] Dr. Juan Jose Banda Hematocrit (Bld) [Volume fraction] 35.3 % Critically low 36.0-48.0 [facility] Comment on above: Performed By: #### S EDR #### [facility] [address] [address] [address] Juan Jose Banda Hemoglobin (Bld) [Mass/Vol] 12.7 g/dL Normal 12.0-16.0 [facility] Comment on above: Performed By: #### S EDR #### [facility] [address] [address] [address] Juan Jose Banda IG # 0.03 10e3/ul Normal 0.00-0.03 [facility] Comment on above: Performed By: #### S EDR #### [facility] [address] [address] [address] Juan Jose Banda IG % 0.4 % Normal 0.0-0.5 [facility] Comment on above: Performed By: #### S EDR #### [facility] [address] [place] [address] Dr. Juan Jose Banda LYMPH # 1.4 103/ul Normal 1.2-3.8 [facility] Comment on above: Performed By: #### S EDR #### [facility] [address] [place] [address] Dr. Juan Jose Banda Lymphocytes/100 WBC (Bld) 19.7 % Critically low 20.5-60.0 [facility] Comment on above: Performed By: #### S EDR #### [facility] [address] [place] [address] Dr. Juan Jose Banda MANUAL DIFF REQ NO Normal [facility] Comment on above: Performed By: #### S EDR #### [facility] [address] [address] [address] Juan Jose Banda MCH (RBC) [Entitic mass] 29.8 pg Normal 26.7-34.0 [facility] Comment on above: Performed By: #### S EDR #### [facility] [address] [place] [address] Dr. Juan Jose Banda MCHC (RBC) [Mass/Vol] 36.0 g/dL Critically high 29.9-35.2 [facility] Comment on above: Performed By: #### S EDR #### [facility] [address] [address] [address] Juan Jose Banda MCV (RBC) [Entitic vol] 82.9 fL Normal 81.0-99.0 [facility] Comment on above: Performed By: #### S EDR #### [facility] [address] [address] [address] Juan Jose Banda MONO # 0.6 103/ul Normal 0.3-0.8 [facility] Comment on above: Performed By: #### S EDR #### [facility] [address] [place] [address] Dr. Juan Jose Banda Monocytes/100 WBC (Bld) 8.3 % Normal 1.7-12.0 [facility] Comment on above: Performed By: #### S EDR #### [facility] [address] [place] [address] Dr. Juan Jose Banda NEUT # 5.0 103/ul Normal 1.4-6.5 [facility] Comment on above: Performed By: #### S EDR #### [facility] [address] [place] [address] Dr. Juan Jose Banda Neutrophils/100 WBC (Bld) 69.8 % Normal 43.0-75.0 [facility] Comment on above: Performed By: #### S EDR #### [facility] [address] [place] [address] Dr. Juan Jose Banda Platelet mean volume (Bld) [Entitic vol] 11.8 fL Normal 9.5-13.5 [facility] Comment on above: Performed By: #### S EDR #### [facility] [address] [place] [address] Dr. Juan Jose Banda PLT 183 103/ul Normal 150-450 [facility] Comment on above: Performed By: #### S EDR #### [facility] [address] [place] [address] Dr. Juan Jose Banda RBC 4.26 106/ul Normal 4.20-5.40 [facility] Comment on above: Performed By: #### S EDR #### [facility] [address] [place] [address] Dr. Juan Jose Banda WBC 7.1 103/ul Normal 4.0-11.0 [facility] Comment on above: Performed By: #### S EDR #### [facility] [address] [place] [address] Dr. Juan Jose Banda CULTURE URINEon 08-24-2022 CULTURE URINE Culture Observations: MODERATE GROWTH OF MIXED GENITAL CHEVY. NO POTENTIAL PATHOGENS SEEN. Normal [facility] Comment on above: Performed By: #### C BCMAN #### [facility] [address] [place] [address] Dr. Juan Jose Banda GLYCOHEMOGLOBIN A1Con 2022 ADA RECOMMENDATION SEE BELOW Normal [facility] Comment on above: Result Comment: ADA RECOMMENDED LIMIT 4.0 - 6.0 ADA THERAPEUTIC TARGET < 7.0 ACTION SUGGESTED > 7.0 Performed By: #### H IV12 #### [facility] [address] [place] [address] Dr. Juan Jose Banda Glucose [Mass/Vol] 85 mg/dL Normal [facility] Comment on above: Performed By: #### H IV12 #### [facility] [address] [place] [address] Dr. Juan Jose Banda HbA1c (Bld) [Mass fraction] 4.6 % Normal 4.5-6.2 [facility] Comment on above: Performed By: #### H IV12 #### [facility] [address] [place] [address] Dr. Juan Jose Banda TYPE AND SCREENon 08-24-2022 TYPE AND SCREEN Negative Normal [facility] Comment on above: Performed By: #### T NS #### [facility] [address] [place] [address] Dr. Juan Jose Banda Covid-19 PCR ([facility])on 06-08 SARS-CoV-2 (COVID-19) RNA ISAAC+probe Ql (Unsp spec) Not detected Normal NOT DETECTED [facility] Comment on above: Result Comment: When diagnostic testing is negative, the possibility of a false negative should be considered in the context of a patient's recent exposures and the presence of clinical signs and symptoms consistent with SARS-CoV-2. This test is not yet approved or cleared by the [place] FDA. When there are no FDA-approved or cleared tests available, and other criteria are met, FDA can make tests available under an emergency access mechanism called an Emergency Use Authorization (EUA). The EUA for this test is supported by the Book Trimmer of Health and Human Service's declaration that circumstances exist to justify the emergency use of in vitro diagnostics for the detection and/or diagnosis of the virus that causes COVID-19. This EUA will remain in effect for the duration of the COVID-19 declaration justifying emergency of IVDs, unless it is terminated or revoked by the FDA (after which the test may no longer be used). Performed By: #### R PRQ #### [facility] [address] [place] [address] Dr. Juan Jose Banda INFLUENZA A AND B [facility] 06-25 [facility] SEE BELOW Normal [facility] Comment on above: Result Comment: Nega tive for Flu A protein angiten. Infection due to Flu A cannot be ruled out. Flu A angiten in the sample may be below the detection limit of the test. Performed By: #### S EDR #### [facility] [address] [place] [address] Dr. [facility] Normal [facility] Comment on above: Result Comment: Nega tive for Flu B protein antigen. Infection due to Flu B cannot be ruled out. Flu B antigen in the sample may be below the detection limit of the test. Performed By: #### S EDR #### [facility] [address] [place] [address] Dr. Juan Jose Banda INFLUENZA A AG Negative Normal NEGATIVE SEE COMMENT [facility] Comment on above: Performed By: #### S EDR #### [facility] [address] [place] [address] Dr. Juan Jose Banda INFLUENZA B AG Negative Normal NEGATIVE SEE COMMENT [facility] Comment on above: Performed By: #### S EDR #### [facility] [address] [place] [address] Dr. Juan Jose Banda INTERNAL CONTROLS Within Normal Limits Normal Within Normal Limits [facility] Comment on above: Performed By: #### S EDR #### [facility] [address] [place] [address] Dr. Juan Jose Banda CBC AUTO DIFFon 06-20-2022 BASO # 0.0 103/ul Normal 0.0-0.1 [facility] Comment on above: Performed By: #### S EDR #### [facility] [address] [place] [address] Dr. Juan Jose Banda Basophils/100 WBC (Bld) 0.3 % Normal 0.2-2.0 [facility] Comment on above: Performed By: #### S EDR #### [facility] [address] [place] [address] Dr. Juan Jose Banda EO # 0.1 103/ul Normal 0.0-0.7 [facility] Comment on above: Performed By: #### S EDR #### [facility] [address] [place] [address] Dr. Juan Jose Banda Eosinophils/100 WBC (Bld) 1.3 % Normal 0.9-7.0 [facility] Comment on above: Performed By: #### S EDR #### [facility] [address] [place] [address] Dr. Juan Jose Banda Erythrocyte distribution width (RBC) [Ratio] 11.4 % Normal 11.0-15.0 [facility] Comment on above: Performed By: #### S EDR #### [facility] [address] [place] [address] Dr. Juan Jose Banda Hematocrit (Bld) [Volume fraction] 35.6 % Critically low 36.0-48.0 [facility] Comment on above: Performed By: #### S EDR #### [facility] [address] [place] [address] Dr. Juan Jose Banda Hemoglobin (Bld) [Mass/Vol] 12.9 g/dL Normal 12.0-16.0 [facility] Comment on above: Performed By: #### S EDR #### [facility] [address] [place] [address] Dr. Juan Jose Banda IG # 0.04 10e3/ul Critically high 0.00-0.03 [facility] Comment on above: Performed By: #### S EDR #### [facility] [address] [place] [address] Dr. Juan Jose Banda IG % 0.5 % Normal 0.0-0.5 [facility] Comment on above: Performed By: #### S EDR #### [facility] [address] [place] [address] Dr. Juan Jose Banda LYMPH # 2.2 103/ul Normal 1.2-3.8 [facility] Comment on above: Performed By: #### S EDR #### [facility] [address] [place] [address] Dr. Juan Jose Banda Lymphocytes/100 WBC (Bld) 25.8 % Normal 20.5-60.0 [facility] Comment on above: Performed By: #### S EDR #### [facility] [address] [place] [address] Dr. Juan Jose Banda MANUAL DIFF REQ NO Normal [facility] Comment on above: Performed By: #### S EDR #### [facility] [address] [place] [address] Dr. Juan Jose Banda MCH (RBC) [Entitic mass] 29.9 pg Normal 26.7-34.0 [facility] Comment on above: Performed By: #### S EDR #### [facility] [address] [place] [address] Dr. Juan Jose Banda MCHC (RBC) [Mass/Vol] 36.2 g/dL Critically high 29.9-35.2 [facility] Comment on above: Performed By: #### S EDR #### [facility] [address] [place] [address] Dr. Juan Jose Banda MCV (RBC) [Entitic vol] 82.4 fL Normal 81.0-99.0 [facility] Comment on above: Performed By: #### S EDR #### [facility] [address] [place] [address] Dr. Juan Jose Banda MONO # 0.9 103/ul Critically high 0.3-0.8 [facility] Comment on above: Performed By: #### S EDR #### [facility] [address] [place] [address] Dr. Juan Jose Banda Monocytes/100 WBC (Bld) 9.9 % Normal 1.7-12.0 [facility] Comment on above: Performed By: #### S EDR #### [facility] [address] [place] [address] Dr. Juan Jose Banda NEUT # 5.4 103/ul Normal 1.4-6.5 [facility] Comment on above: Performed By: #### S EDR #### [facility] [address] [place] [address] Dr. Juan Jose Banda Neutrophils/100 WBC (Bld) 62.2 % Normal 43.0-75.0 [facility] Comment on above: Performed By: #### S EDR #### [facility] [address] [place] [address] Dr. Juan Jose Banda Platelet mean volume (Bld) [Entitic vol] 11.7 fL Normal 9.5-13.5 [facility] Comment on above: Performed By: #### S EDR #### [facility] [address] [place] [address] Dr. Juan Jose Banda PLT 205 103/ul Normal 150-450 [facility] Comment on above: Performed By: #### S EDR #### [facility] [address] [place] [address] Dr. Juan Jose Banda RBC 4.32 106/ul Normal 4.20-5.40 [facility] Comment on above: Performed By: #### S EDR #### [facility] [address] [place] [address] Dr. Juan Jose Banda WBC 8.6 103/ul Normal 4.0-11.0 [facility] Comment on above: Performed By: #### S EDR #### [facility] [address] [place] [address] Dr. Juan Jose Banda ER URINE PROFILEon 2 Bilirubin Ql (U) Negative Normal NEGATIVE [facility] Comment on above: Performed By: #### H IV12 #### [facility] [address] [address] [address] Juan Jose Banda Clarity (U) CLEAR Normal CLEAR [facility] Comment on above: Performed By: #### H IV12 #### [facility] [address] [place] [address] Dr. Juan Jose Banda Color (U) LT. YELLOW Normal YELLOW [facility] Comment on above: Performed By: #### H IV12 #### [facility] [address] [place] [address] Dr. Juan Jose TAVAREZ A micrscopic examination will be performed if indicated. Normal [facility] Comment on above: Performed By: #### H IV12 #### [facility] [address] [place] [address] Dr. Juan Jose Banda Glucose Ql (U) Negative Normal NEGATIVE [facility] Comment on above: Performed By: #### H IV12 #### [facility] [address] [place] [address] Dr. Juan Jose Banda Hemoglobin Ql (U) Negative Normal NEGATIVE [facility] Comment on above: Performed By: #### H IV12 #### [facility] [address] [place] [address] Dr. Juan Jose Banda Ketones Ql (U) Negative Normal NEGATIVE [facility] Comment on above: Performed By: #### H IV12 #### [facility] [address] [place] [address] Dr. Juan Jose Banda LEUKOCYTES SMALL Abnormal NEGATIVE [facility] Comment on above: Performed By: #### H IV12 #### [facility] [address] [place] [address] Dr. Juan Jose Banda Nitrite Ql (U) Negative Normal NEGATIVE [facility] Comment on above: Performed By: #### H IV12 #### [facility] [address] [place] [address] Dr. Juan Jose Banda pH (U) 6.0 [pH] Normal 5-9 [facility] Comment on above: Performed By: #### H IV12 #### [facility] [address] [place] [address] Dr. Juan Jose Banda SPEC GRAVITY <=1.005 Abnormal 1.005-<=1.025 [facility] Comment on above: Performed By: #### H IV12 #### [facility] [address] [place] [address] Dr. Juan Jose Banda UA PROTEIN Negative Normal NEGATIVE/ TRACE [facility] Comment on above: Performed By: #### H IV12 #### [facility] [address] [place] [address] Dr. Juan Jose Banda UR MICRO IND INDICATED Normal [facility] Comment on above: Performed By: #### H IV12 #### [facility] [address] [place] [address] Dr. Juan Jose Banda Urobilinogen Qn (U) 0.2 {Tyler'U}/dL Normal 0.2 - 1. 0 [facility] Comment on above: Performed By: #### H IV12 #### [facility] [address] [place] [address] Dr. Juan Jose Banda PREG QUANT HCGon 06-20-2022 HCG QUANT 65799 mIU/mL Normal [facility] Comment on above: Performed By: #### R PRQ #### [facility] [address] [place] [address] Dr. Juan Jose Banda HCG RANGE SEE BELOW Normal [facility] Comment on above: Result Comment: 5-50 0.2-1 WEEK 50-500 1-2 WEEKS 100-5,000 2-3 WEEKS 500-10,000 3-4 WEEKS 1,000-50,000 4-5 WEEKS 10,000-100,000 5-6 WEEKS 15,000-200,000 6-8 WEEKS 10,000-100,000 2-3 MONTHS Performed By: #### R PRQ #### [facility] [address] [place] [address] Dr. Juan Jose Banda URon 06-20-2022 , QUAL Positive Abnormal NEGATIVE [facility] Comment on above: Performed By: #### H IV12 #### [facility] [address] [address] [address] Juan Jose Banda PROF CHEM 8 (BAS METB)on Anion gap [Moles/Vol] 9.4 mmol/L Normal [facility] Comment on above: Performed By: #### R PRQ #### [facility] [address] [place] [address] Dr. Juan Jose Banda Calcium [Mass/Vol] 8.8 mg/dL Normal 8.5-10.1 [facility] Comment on above: Performed By: #### R PRQ #### [facility] [address] [place] [address] Dr. Juan Jose Banda Chloride [Moles/Vol] 102 mmol/L Normal 98-107 [facility] Comment on above: Performed By: #### R PRQ #### [facility] [address] [place] [address] Dr. Juan Jose Banda CO2 [Moles/Vol] 28.0 mmol/L Normal 21.0-32.0 [facility] Comment on above: Performed By: #### R PRQ #### [facility] [address] [place] [address] Dr. Juan Jose Banda Creatinine [Mass/Vol] 0.66 mg/dL Normal 0.55-1.02 [facility] Comment on above: Performed By: #### R PRQ #### [facility] [address] [place] [address] Dr. Juan Jose Banda EGFR-AF FIJIAN >60 Normal >=60 [facility] Comment on above: Performed By: #### R PRQ #### [facility] [address] [place] [address] Dr. Juan Jose Banda EGFR-NON AF FIJIAN >60 Normal >=60 [facility] Comment on above: Performed By: #### R PRQ #### [facility] [address] [place] [address] Dr. Juan Jose Banda Glucose [Mass/Vol] 92 mg/dL Normal 74-106 [facility] Comment on above: Performed By: #### R PRQ #### [facility] [address] [place] [address] Dr. Juan Jose Banda Potassium [Moles/Vol] 3.4 mmol/L Critically low 3.5-5.1 [facility] Comment on above: Performed By: #### R PRQ #### [facility] [address] [place] [address] Dr. Juan Jose Banda Sodium [Moles/Vol] 136 mmol/L Normal 136-145 [facility] Comment on above: Performed By: #### R PRQ #### [facility] [address] [address] [address] Juan Jose Banda Urea nitrogen [Mass/Vol] 9.0 mg/dL Normal 6.4-19.3 [facility] Comment on above: Performed By: #### R PRQ #### [facility] [address] [place] [address] Dr. Juan Jose Banda Urea nitrogen/Creatinine [Mass ratio] 13.6 mg/mg Normal [facility] Comment on above: Performed By: #### R PRQ #### [facility] [address] [place] [address] Dr. Juan Jose Banda URINE MICROSCOPIC ONLYon BACTERIA TRACE Abnormal NONE SEEN [facility] Comment on above: Performed By: #### H IV12 #### [facility] [address] [place] [address] Dr. Juan Jose Banda Bacteria identified Cx Nom (U) NOT INDICATED Normal [facility] Comment on above: Performed By: #### H IV12 #### [facility] [address] [place] [address] Dr. Juan Jose Banda CAST NONE SEEN Normal NONE SEEN [facility] Comment on above: Performed By: #### H IV12 #### [facility] [address] [place] [address] Dr. Juan Jose Banda Crystals LM Nom (Urine sed) NONE SEEN Normal NONE SEEN [facility] Comment on above: Performed By: #### H IV12 #### [facility] [address] [place] [address] Dr. Juan Jose Banda Epithelial cells LM Ql (Urine sed) MANY Abnormal NONE SEEN /RARE [facility] Comment on above: Performed By: #### H IV12 #### [facility] [address] [address] [address] Juan Jose Banda MUCOUS TRACE Abnormal NONE SEEN [facility] Comment on above: Performed By: #### H IV12 #### [facility] [address] [place] [address] Dr. Juan Jose Banda RBC 0-2 Normal 0-2 [facility] Comment on above: Performed By: #### H IV12 #### [facility] [address] [place] [address] Dr. Juan Jose Banda WBC 0-2 Abnormal NONE SEEN [facility] Comment on above: Performed By: #### H IV12 #### [facility] [address] [place] [address] Dr. Juan Jose Banda US PREG TVon 06-18-2022 US PREG TV EXAMINATION: US PREG TV HISTORY: Missed period COMPARISON: Ultrasound transvaginal 06/02/2022 FINDINGS: GESTATIONAL SAC: Present and normal appearing. YOLK SAC: Present and normal appearing. POLE: Present and normal appearing. CARDIAC: Present. UTERUS: Normal size and appearance. OVARIES: Right: Corpus lutein cyst. Left: Normal. CERVIX: 3.5 cm in length and closed. CUL-DE-SAC: Normal. OTHER: None. AGE BY LMP: Unknown LMP TRACI BY LMP: AGE BY US CRL: 8 weeks 4 days TRACI BY US CRL: 01/24/2023 IMPRESSION: 1. Single live intrauterine . Electronically authenticated by: LUISA ARCHIBALD Date: 2022-06-18 17:27 Normal [facility] ABO AND RH TYPEon 06-02-2022 ABO and Rh group Nom (Bld) ABO Rh Typing O Rh Positive Normal [facility] Comment on above: Performed By: #### A BORH #### [facility] [address] [place] [address] Dr. Juan Jose Banda AMYLASEon 06-02-2022 Amylase [Catalytic activity/Vol] 33 U/L Normal 25-115 [facility] Comment on above: Performed By: #### U RCX #### [facility] [address] [place] [address] Dr. Juan Jose Banda CBC AUTO DIFFon 06-02-2022 BASO # 0.0 103/ul Normal 0.0-0.1 [facility] Comment on above: Performed By: #### C OSORIO #### [facility] [address] [address] [address] Juan Jose Banda Basophils/100 WBC (Bld) 0.4 % Normal 0.2-2.0 [facility] Comment on above: Performed By: #### C OOSRIO #### [facility] [address] [address] [address] Juan Jose Banda EO # 0.1 103/ul Normal 0.0-0.7 [facility] Comment on above: Performed By: #### C OSORIO #### [facility] [address] [place] [address] Dr. Juan Jose Banda Eosinophils/100 WBC (Bld) 2.2 % Normal 0.9-7.0 [facility] Comment on above: Performed By: #### C OSORIO #### [facility] [address] [place] [address] Dr. Juan Jose Banda Erythrocyte distribution width (RBC) [Ratio] 11.6 % Normal 11.0-15.0 [facility] Comment on above: Performed By: #### C OSORIO #### [facility] [address] [place] [address] Dr. Juan Jose Banda Hematocrit (Bld) [Volume fraction] 35.1 % Critically low 36.0-48.0 [facility] Comment on above: Performed By: #### C OSORIO #### [facility] [address] [place] [address] Dr. Juan Jose Banda Hemoglobin (Bld) [Mass/Vol] 12.5 g/dL Normal 12.0-16.0 [facility] Comment on above: Performed By: #### C OSORIO #### [facility] [address] [place] [address] Dr. Juan Jose Banda IG # 0.02 10e3/ul Normal 0.00-0.03 [facility] Comment on above: Performed By: #### C OSORIO #### [facility] [address] [address] [address] Juan Jose Banda IG % 0.4 % Normal 0.0-0.5 [facility] Comment on above: Performed By: #### C OSORIO #### [facility] [address] [place] [address] Dr. Juan Jose Banda LYMPH # 1.8 103/ul Normal 1.2-3.8 [facility] Comment on above: Performed By: #### C OSORIO #### [facility] [address] [place] [address] Dr. Juan Jose Banda Lymphocytes/100 WBC (Bld) 31.8 % Normal 20.5-60.0 [facility] Comment on above: Performed By: #### C OSORIO #### [facility] [address] [place] [address] Dr. Juan Jose Banda MANUAL DIFF REQ NO Normal [facility] Comment on above: Performed By: #### C OSORIO #### [facility] [address] [place] [address] Dr. Juan Jose Banda MCH (RBC) [Entitic mass] 29.9 pg Normal 26.7-34.0 [facility] Comment on above: Performed By: #### Seble AC #### [facility] [address] [place] [address] Dr. Juan Jose Banda MCHC (RBC) [Mass/Vol] 35.6 g/dL Critically high 29.9-35.2 [facility] Comment on above: Performed By: #### Seble AC #### [facility] [address] [place] [address] Dr. Juan Jose Banda MCV (RBC) [Entitic vol] 84.0 fL Normal 81.0-99.0 [facility] Comment on above: Performed By: #### Seble AC #### [facility] [address] [place] [address] Dr. Juan Jose Banda MONO # 0.6 103/ul Normal 0.3-0.8 [facility] Comment on above: Performed By: #### Seble AC #### [facility] [address] [address] [address] Juan Jose Banda Monocytes/100 WBC (Bld) 10.4 % Normal 1.7-12.0 [facility] Comment on above: Performed By: #### Seble AC #### [facility] [address] [place] [address] Dr. Juan Jose Banda NEUT # 3.1 103/ul Normal 1.4-6.5 [facility] Comment on above: Performed By: #### Seble AC #### [facility] [address] [place] [address] Dr. Juan Jose Banda Neutrophils/100 WBC (Bld) 54.8 % Normal 43.0-75.0 [facility] Comment on above: Performed By: #### Seble AC #### [facility] [address] [place] [address] Dr. Juan Jose Banda Platelet mean volume (Bld) [Entitic vol] 11.8 fL Normal 9.5-13.5 [facility] Comment on above: Performed By: #### Seble AC #### [facility] [address] [place] [address] Dr. Juan Jose Banda PLT 185 103/ul Normal 150-450 [facility] Comment on above: Performed By: #### Seble AC #### [facility] [address] [place] [address] Dr. Juan Jose Banda RBC 4.18 106/ul Critically low 4.20-5.40 [facility] Comment on above: Performed By: #### Seble AC #### [facility] [address] [place] [address] Dr. Juan Jose Banda WBC 5.6 103/ul Normal 4.0-11.0 [facility] Comment on above: Performed By: #### Seble AC #### [facility] [address] [place] [address] Dr. Juan Jose Banda LIPASEon 06-02-2022 Lipase [Catalytic activity/Vol] 69.0 U/L Critically low 73.0-393.0 [facility] Comment on above: Performed By: #### U RCX #### [facility] [address] [address] [address] Juan Jose Banda PREG QUANT HCGon 06-02-2022 HCG QUANT 05407 mIU/mL Normal [facility] Comment on above: Performed By: #### R PRQ #### [facility] [address] [address] [address] Juan Jose Banda HCG RANGE SEE BELOW Normal [facility] Comment on above: Result Comment: 5-50 0.2-1 WEEK 50-500 1-2 WEEKS 100-5,000 2-3 WEEKS 500-10,000 3-4 WEEKS 1,000-50,000 4-5 WEEKS 10,000-100,000 5-6 WEEKS 15,000-200,000 6-8 WEEKS 10,000-100,000 2-3 MONTHS Performed By: #### R PRQ #### [facility] [address] [place] [address] Dr. Juan Jose Banda US PREG TVon 06-02-2022 US PREG TV EXAM: US PREG TV HISTORY: Pain COMPARISON: Correlation is made with CT abdomen and pelvis examination dated 04/29/2022. TECHNIQUE: Real time pelvic ultrasound examination was performed using Duplex Doppler by a transvaginal approach. FINDINGS: There is a single intrauterine gestational sac with a mean sac diameter of 1.3 cm, in keeping with a 5 week 4 day gestation. A pole is seen with a crown-rump length of 0.5 cm, in keeping with a 6 week 1 day gestation. A yolk sac is noted. A heart rate of 111 bpm is seen. The cervix is closed measuring up to 4.2 cm in length. The ovaries are normal in size and echogenicity and demonstrate multiple follicles. The right ovary measures 3.9 x 2.6 x 2.3 cm, and the left ovary measures 2.6 x 1.8 x 2.1 cm. There is a suspected right ovarian corpus luteal cyst. Blood flow is seen in both ovaries. There is no significant free fluid. IMPRESSION: 1. Single live intrauterine gestation at approximately 6 weeks 1 day with a heart rate of 111 bpm. Electronically authenticated by: Marita SINHA Date: 2022-06-02 01:30 Normal [facility] CBC AUTO DIFFon 05-25-2022 BASO # 0.0 103/ul Normal 0.0-0.1 [facility] Comment on above: Performed By: #### H IV12 #### [facility] [address] [place] [address] Dr. Juan Jose Banda Basophils/100 WBC (Bld) 0.5 % Normal 0.2-2.0 [facility] Comment on above: Performed By: #### H IV12 #### [facility] [address] [place] [address] Dr. uJan Jose Banda EO # 0.1 103/ul Normal 0.0-0.7 [facility] Comment on above: Performed By: #### H IV12 #### [facility] [address] [place] [address] Dr. Juan Jose Banda Eosinophils/100 WBC (Bld) 1.2 % Normal 0.9-7.0 [facility] Comment on above: Performed By: #### H IV12 #### [facility] [address] [place] [address] Dr. Juan Jose Banda Erythrocyte distribution width (RBC) [Ratio] 11.6 % Normal 11.0-15.0 [facility] Comment on above: Performed By: #### H IV12 #### [facility] [address] [place] [address] Dr. Juan Jose Banda Hematocrit (Bld) [Volume fraction] 36.0 % Normal 36.0-48.0 [facility] Comment on above: Performed By: #### H IV12 #### [facility] [address] [place] [address] Dr. Juan Jose Banda Hemoglobin (Bld) [Mass/Vol] 12.7 g/dL Normal 12.0-16.0 [facility] Comment on above: Performed By: #### H IV12 #### [facility] [address] [place] [address] Dr. Juan Jose Banda IG # 0.03 10e3/ul Normal 0.00-0.03 [facility] Comment on above: Performed By: #### H IV12 #### [facility] [address] [place] [address] Dr. Juan Jose Banda IG % 0.4 % Normal 0.0-0.5 [facility] Comment on above: Performed By: #### H IV12 #### [facility] [address] [place] [address] Dr. Juan Jose Banda LYMPH # 2.4 103/ul Normal 1.2-3.8 [facility] [facility] Comment on above: Performed By: #### H IV12 #### [facility] [address] [place] [address] Dr. Juan Jose Banda Lymphocytes/100 WBC (Bld) 29.8 % Normal 20.5-60.0 [facility] Comment on above: Performed By: #### H IV12 #### [facility] [address] [place] [address] Dr. Juan Jose Banda MANUAL DIFF REQ NO Normal [facility] Comment on above: Performed By: #### H IV12 #### [facility] [address] [place] [address] Dr. Juan Jose Banda MCH (RBC) [Entitic mass] 29.9 pg Normal 26.7-34.0 [facility] Comment on above: Performed By: #### H IV12 #### [facility] [address] [place] [address] Dr. Juan Jose Banda MCHC (RBC) [Mass/Vol] 35.3 g/dL Critically high 29.9-35.2 [facility] Comment on above: Performed By: #### H IV12 #### [facility] [address] [place] [address] Dr. Juan Jose Banda MCV (RBC) [Entitic vol] 84.7 fL Normal 81.0-99.0 [facility] Comment on above: Performed By: #### H IV12 #### [facility] [address] [place] [address] Dr. Juan Jose Banda MONO # 0.8 103/ul Normal 0.3-0.8 [facility] Comment on above: Performed By: #### H IV12 #### [facility] [address] [place] [address] Dr. Juan Jose Banda Monocytes/100 WBC (Bld) 9.4 % Normal 1.7-12.0 [facility] Comment on above: Performed By: #### H IV12 #### [facility] [address] [place] [address] Dr. Juan Jose Banda NEUT # 4.8 103/ul Normal 1.4-6.5 [facility] Comment on above: Performed By: #### H IV12 #### [facility] [address] [place] [address] Dr. Juan Jose Banda Neutrophils/100 WBC (Bld) 58.7 % Normal 43.0-75.0 [facility] Comment on above: Performed By: #### H IV12 #### [facility] [address] [place] [address] Dr. Juan Jose Banda Platelet mean volume (Bld) [Entitic vol] 11.5 fL Normal 9.5-13.5 [facility] Comment on above: Performed By: #### H IV12 #### [facility] [address] [place] [address] Dr. Juan Jose Banda PLT 218 103/ul Normal 150-450 [facility] Comment on above: Performed By: #### H IV12 #### [facility] [address] [place] [address] Dr. Juan Jose Banda RBC 4.25 106/ul Normal 4.20-5.40 [facility] Comment on above: Performed By: #### H IV12 #### [facility] [address] [place] [address] Dr. Juan Jose Banda WBC 8.2 103/ul Normal 4.0-11.0 [facility] Comment on above: Performed By: #### H IV12 #### [facility] [address] [place] [address] Dr. Juan Jose Banda ER URINE PROFILEon 2 Bilirubin Ql (U) Negative Normal NEGATIVE [facility] Comment on above: Performed By: #### R PRQ #### [facility] [address] [place] [address] Dr. Juan Jose Banda Clarity (U) CLEAR Normal CLEAR [facility] Comment on above: Performed By: #### R PRQ #### [facility] [address] [place] [address] Dr. Juan Jose Banda Color (U) LT. YELLOW Normal YELLOW [facility] Comment on above: Performed By: #### R PRQ #### [facility] [address] [place] [address] Dr. Juan Jose TAVAREZ A micrscopic examination will be performed if indicated. Normal [facility] Comment on above: Performed By: #### R PRQ #### [facility] [address] [place] [address] Dr. Juan Jose Banda Glucose Ql (U) Negative Normal NEGATIVE [facility] Comment on above: Performed By: #### R PRQ #### [facility] [address] [place] [address] Dr. Juan Jose Banda Hemoglobin Ql (U) Negative Normal NEGATIVE [facility] Comment on above: Performed By: #### R PRQ #### [facility] [address] [place] [address] Dr. Juan Jose Banda Ketones Ql (U) TRACE Abnormal NEGATIVE [facility] Comment on above: Performed By: #### R PRQ #### [facility] [address] [place] [address] Dr. Juan Jose Banda LEUKOCYTES SMALL Abnormal NEGATIVE [facility] Comment on above: Performed By: #### R PRQ #### [facility] [address] [place] [address] Dr. Juan Jose Banda Nitrite Ql (U) Negative Normal NEGATIVE [facility] Comment on above: Performed By: #### R PRQ #### [facility] [address] [place] [address] Dr. Juan Jose Banda pH (U) 5.5 [pH] Normal 5-9 [facility] Comment on above: Performed By: #### R PRQ #### [facility] [address] [place] [address] Dr. Juan Jose Banda SPEC GRAVITY 1.025 Normal 1.005-<=1.025 [facility] Comment on above: Performed By: #### R PRQ #### [facility] [address] [place] [address] Dr. Juan Jose Banda UA PROTEIN Negative Normal NEGATIVE/ TRACE [facility] Comment on above: Performed By: #### R PRQ #### [facility] [address] [place] [address] Dr. Juan Jose Banda UR MICRO IND INDICATED Normal [facility] Comment on above: Performed By: #### R PRQ #### [facility] [address] [place] [address] Dr. Juan Jose Banda Urobilinogen Qn (U) 0.2 {Tyler'U}/dL Normal 0.2 - 1. 0 [facility] Comment on above: Performed By: #### R PRQ #### [facility] [address] [place] [address] Dr. Juan Jose Banda PREG QUANT HCGon 05-25-2022 HCG QUANT 3347 mIU/mL Normal [facility] Comment on above: Performed By: #### U RCX #### [facility] [address] [place] [address] Dr. Juan Jose Banda HCG RANGE SEE BELOW Normal [facility] Comment on above: Result Comment: 5-50 0.2-1 WEEK 50-500 1-2 WEEKS 100-5,000 2-3 WEEKS 500-10,000 3-4 WEEKS 1,000-50,000 4-5 WEEKS 10,000-100,000 5-6 WEEKS 15,000-200,000 6-8 WEEKS 10,000-100,000 2-3 MONTHS Performed By: #### U RCX #### [facility] [address] [place] [address] Dr. Juan Jose Banda PROF 14(COMP METB)on 022 Albumin [Mass/Vol] 3.7 g/dL Normal 3.4-5.0 [facility] Comment on above: Performed By: #### H IV12 #### [facility] [address] [place] [address] Dr. Juan Jose Banda Albumin/Globulin [Mass ratio] 1.4 {ratio} Normal [facility] Comment on above: Performed By: #### H IV12 #### [facility] [address] [address] [address] Juan Jose Banda ALP [Catalytic activity/Vol] 66 U/L Normal 46-116 [facility] Comment on above: Performed By: #### H IV12 #### [facility] [address] [address] [address] Juan Jose Banda ALT [Catalytic activity/Vol] 18 U/L Normal 14-59 [facility] Comment on above: Performed By: #### H IV12 #### [facility] [address] [address] [address] Juan Jose Banda Anion gap [Moles/Vol] 11.5 mmol/L Normal [facility] Comment on above: Performed By: #### H IV12 #### [facility] [address] [place] [address] Dr. Juan Jose Banda AST [Catalytic activity/Vol] 10 U/L Critically low 15-37 [facility] Comment on above: Performed By: #### H IV12 #### [facility] [address] [address] [address] Juan Jose Banda Bilirubin [Mass/Vol] 0.4 mg/dL Normal 0.2-1.0 [facility] Comment on above: Performed By: #### H IV12 #### [facility] [address] [place] [address] Dr. Juan Jose Banda Calcium [Mass/Vol] 8.3 mg/dL Critically low 8.5-10.1 [facility] Comment on above: Performed By: #### H IV12 #### [facility] [address] [address] [address] Juan Jose Banda Chloride [Moles/Vol] 104 mmol/L Normal 98-107 [facility] Comment on above: Performed By: #### H IV12 #### [facility] [address] [address] [address] Juan Jose Banda CO2 [Moles/Vol] 27.3 mmol/L Normal 21.0-32.0 [facility] Comment on above: Performed By: #### H IV12 #### [facility] [address] [place] [address] Dr. Juan Jose Banda Creatinine [Mass/Vol] 0.72 mg/dL Normal 0.55-1.02 [facility] Comment on above: Performed By: #### H IV12 #### [facility] [address] [place] [address] Dr. Juan Jose Banda EGFR-AF FIJIAN >60 Normal >=60 [facility] Comment on above: Performed By: #### H IV12 #### [facility] [address] [place] [address] Dr. Juan Jose Banda EGFR-NON AF FIJIAN >60 Normal >=60 [facility] Comment on above: Performed By: #### H IV12 #### [facility] [address] [place] [address] Dr. Juan Jose Banda Globulin (S) [Mass/Vol] 2.7 g/dL Normal [facility] Comment on above: Performed By: #### H IV12 #### [facility] [address] [place] [address] Dr. Juan Jose Banda Glucose [Mass/Vol] 95 mg/dL Normal 74-106 [facility] Comment on above: Performed By: #### H IV12 #### [facility] [address] [place] [address] Dr. Juan Jose Banda Potassium [Moles/Vol] 3.8 mmol/L Normal 3.5-5.1 [facility] Comment on above: Performed By: #### H IV12 #### [facility] [address] [place] [address] Dr. Juan Jose Banda Protein [Mass/Vol] 6.4 g/dL Normal 6.4-8.2 [facility] Comment on above: Performed By: #### H IV12 #### [facility] [address] [place] [address] Dr. Juan Jose Banda Sodium [Moles/Vol] 139 mmol/L Normal 136-145 [facility] Comment on above: Performed By: #### H IV12 #### [facility] [address] [place] [address] Dr. Juan Jose Banda Urea nitrogen [Mass/Vol] 9.0 mg/dL Normal 6.4-19.3 [facility] Comment on above: Performed By: #### H IV12 #### [facility] [address] [place] [address] Dr. Juan Jose Banda Urea nitrogen/Creatinine [Mass ratio] 12.5 mg/mg Normal [facility] Comment on above: Performed By: #### H IV12 #### [facility] [address] [place] [address] Dr. Juan Jose Banda URINE MICROSCOPIC ONLYon BACTERIA TRACE Abnormal NONE SEEN [facility] Comment on above: Performed By: #### R PRQ #### [facility] [address] [place] [address] Dr. Juan Jose Banda Bacteria identified Cx Nom (U) INDICATED Normal [facility] Comment on above: Performed By: #### R PRQ #### [facility] [address] [place] [address] Dr. Juan Jose Banda CAST NONE SEEN Normal NONE SEEN [facility] Comment on above: Performed By: #### R PRQ #### [facility] [address] [place] [address] Dr. Juan Jose Banda Crystals LM Nom (Urine sed) NONE SEEN Normal NONE SEEN [facility] Comment on above: Performed By: #### R PRQ #### [facility] [address] [place] [address] Dr. Juan Jose Banda Epithelial cells LM Ql (Urine sed) RARE Normal NONE SEEN /RARE [facility] Comment on above: Performed By: #### R PRQ #### [facility] [address] [place] [address] Dr. Juan Jose Banda MUCOUS NONE SEEN Normal NONE SEEN [facility] Comment on above: Performed By: #### R PRQ #### [facility] [address] [place] [address] Dr. Juan Jose Banda RBC 0-2 Normal 0-2 [facility] Comment on above: Performed By: #### R PRQ #### [facility] [address] [place] [address] Dr. Juan Jose Banda WBC 10-20 Abnormal NONE SEEN [facility] Comment on above: Performed By: #### R PRQ #### [facility] [address] [address] [address] ABD/PELVIS WO CONon 04-29 CT ABD/PELVIS WO CON EXAMINATION: CT ABD/PELVIS WO CON, 04/29/2022 2:41 AM EDT HISTORY: CALCULUS OF KIDNEY COMPARISON: Contrast CT 04/10/2022 TECHNIQUE: CT scan of the abdomen and pelvis was performed without IV contrast. CT dose reduction technique was used, including Automated Exposure Control. FINDINGS: Exam is limited by lack of contrast. Lower thorax: Unremarkable. Liver: Unremarkable. Biliary: The gallbladder is unremarkable. Spleen: No splenomegaly. Pancreas: Unremarkable. Adrenals: Normal. Kidneys and bladder: Unremarkable. No visible calculi or hydronephrosis. GI Tract: No evidence of obstruction. Status post appendectomy. Lymph Nodes: No lymphadenopathy. Mesentery/peritoneu m: No free fluid or free air. Retroperitoneum: No mass. Vasculature: No visible abdominal aortic or iliac artery aneurysm. Pelvis: Uterus is present. No suggestion of pelvic mass. Bones/Soft Tissues: No acute abnormality. IMPRESSION: No evidence of urinary tract calculi or hydronephrosis. Electronically authenticated by: ALICJA AVILA Date: 2022-04-29 03:19 Normal [facility] URINE PROFILEon 2 Bilirubin Ql (U) Negative Normal NEGATIVE [facility] Comment on above: Performed By: #### C OSORIO #### [facility] [address] [place] [address] Dr. Juan Jose Banda Clarity (U) SL CLOUDY Abnormal CLEAR [facility] Comment on above: Performed By: #### C BCMAN #### [facility] [address] [place] [address] Dr. Juan Jose Banda Color (U) YELLOW Normal YELLOW [facility] Comment on above: Performed By: #### C BCMAN #### [facility] [address] [place] [address] Dr. Juan Jose Banda ERUAHD A micrscopic examination will be performed if indicated. Normal [facility] Comment on above: Performed By: #### C OSORIO #### [facility] [address] [address] [address] Juan Jose Banda Glucose Ql (U) Negative Normal NEGATIVE [facility] Comment on above: Performed By: #### C BCJESSICA #### [facility] [address] [place] [address] Dr. Juan Jose Banda Hemoglobin Ql (U) Negative Normal NEGATIVE [facility] Comment on above: Performed By: #### C OSORIO #### [facility] [address] [address] [address] Juan Jose Banda Ketones Ql (U) Negative Normal NEGATIVE [facility] Comment on above: Performed By: #### C OSORIO #### [facility] [address] [place] [address] Dr. Juan Jose Banda LEUKOCYTES Negative Normal NEGATIVE [facility] Comment on above: Performed By: #### C OSORIO #### [facility] [address] [place] [address] Dr. Juan Jose Banda Nitrite Ql (U) Negative Normal NEGATIVE [facility] Comment on above: Performed By: #### C OSORIO #### [facility] [address] [place] [address] Dr. Juan Jose Banda pH (U) 6.0 [pH] Normal 5-9 [facility] Comment on above: Performed By: #### C OSORIO #### [facility] [address] [place] [address] Dr. Juan Jose Banda SPEC GRAVITY >=1.030 Abnormal 1.005-<=1.025 [facility] Comment on above: Performed By: #### C OSORIO #### [facility] [address] [place] [address] Dr. Juan Jose Banda UA PROTEIN Negative Normal NEGATIVE/ TRACE [facility] Comment on above: Performed By: #### C OSORIO #### [facility] [address] [place] [address] Dr. Juan Jose Banda UR MICRO IND NOT INDICATED Normal [facility] Comment on above: Performed By: #### C OSORIO #### [facility] [address] [place] [address] Dr. Juan Jose Banda Urobilinogen Qn (U) 0.2 {Tyler'U}/dL Normal 0.2 - 1. 0 [facility] Comment on above: Performed By: #### C OSORIO #### [facility] [address] [place] [address] Dr. Juan Jose Banda URon 04-29-2022 , QUAL Negative Normal NEGATIVE [facility] Comment on above: Performed By: #### C OSORIO #### [facility] [address] [place] [address] Dr. Juan Jose Banda PROCALCITONINon 04-13-2022 Procalcitonin 0.04 ng/mL Normal 0.00-0.08 [facility] Comment on above: Result Comment: . A procalcitonin (PCT) level above 2.0 ng/mL on the first day of ICU admission is associated with a high risk for progression to severe sepsis and/or septic shock. . A PCT level below 0.5 ng/mL on the first day of ICU admission is associated with a low risk for progression to severe sepsis and/or septic shock. . Note: Concentrations <0.5 ng/mL do not exclude an infection, on account of localized infections (without systemic signs) which can be associated with such low concentrations, or a systemic infection in its initial stages (<6 hours). Furthermore, increased procalcitonin can occur without infection. PCT concentrations between 0.5 and 2.0 ng/mL should be interpreted taking into account the patient's history. It is recommended to retest PCT within 6-24 hours if any concentrations <2 ng/mL are obtained. Performed By: #### C OSORIO #### [facility] [address] [place] [address] Dr. Juan Jose Banda CBC AUTO DIFFon 04-10-2022 BASO # 0.0 103/ul Normal 0.0-0.1 [facility] Comment on above: Performed By: #### C DILLON #### [facility] [address] [place] [address] Dr. Juan Jose Banda Basophils/100 WBC (Bld) 0.3 % Normal 0.2-2.0 [facility] Comment on above: Performed By: #### C BC #### [facility] [address] [place] [address] Dr. Juan Jose Banda EO # 0.2 103/ul Normal 0.0-0.7 [facility] Comment on above: Performed By: #### C BC #### [facility] [address] [place] [address] Dr. Juan Jose Banda Eosinophils/100 WBC (Bld) 2.5 % Normal 0.9-7.0 [facility] Comment on above: Performed By: #### C BC #### [facility] [address] [place] [address] Dr. Juan Jose Banda Erythrocyte distribution width (RBC) [Ratio] 11.6 % Normal 11.0-15.0 [facility] Comment on above: Performed By: #### C BC #### [facility] [address] [place] [address] Dr. Juan Jose Banda Hematocrit (Bld) [Volume fraction] 38.2 % Normal 36.0-48.0 [facility] Comment on above: Performed By: #### C BC #### [facility] [address] [place] [address] Dr. Juan Jose Banda Hemoglobin (Bld) [Mass/Vol] 13.5 g/dL Normal 12.0-16.0 [facility] Comment on above: Performed By: #### C BC #### [facility] [address] [place] [address] Dr. Juan Jose Banda IG # 0.01 10e3/ul Normal 0.00-0.03 [facility] Comment on above: Performed By: #### C BC #### [facility] [address] [place] [address] Dr. Juan Jose Banda IG % 0.2 % Normal 0.0-0.5 [facility] Comment on above: Performed By: #### C BC #### [facility] [address] [place] [address] Dr. Juan Jose Banda LYMPH # 2.2 103/ul Normal 1.2-3.8 [facility] Comment on above: Performed By: #### C BC #### [facility] [address] [address] [address] Juan Jose Banda Lymphocytes/100 WBC (Bld) 33.3 % Normal 20.5-60.0 [facility] Comment on above: Performed By: #### C BC #### [facility] [address] [address] [address] Juan Jose Banda MANUAL DIFF REQ NO Normal [facility] Comment on above: Performed By: #### C BC #### [facility] [address] [place] [address] Dr. Juan Jose Banda MCH (RBC) [Entitic mass] 29.6 pg Normal 26.7-34.0 [facility] Comment on above: Performed By: #### C BC #### [facility] [address] [place] [address] Dr. Juan Jose Banda MCHC (RBC) [Mass/Vol] 35.3 g/dL Critically high 29.9-35.2 [facility] Comment on above: Performed By: #### C BC #### [facility] [address] [place] [address] Dr. Juan Jose Banda MCV (RBC) [Entitic vol] 83.8 fL Normal 81.0-99.0 [facility] Comment on above: Performed By: #### C BC #### [facility] [address] [place] [address] Dr. Juan Jose Banda MONO # 0.7 103/ul Normal 0.3-0.8 [facility] Comment on above: Performed By: #### C BC #### [facility] [address] [place] [address] Dr. Juan Jose Banda Monocytes/100 WBC (Bld) 10.2 % Normal 1.7-12.0 [facility] Comment on above: Performed By: #### C BC #### [facility] [address] [place] [address] Dr. Juan Jose Banda NEUT # 3.5 103/ul Normal 1.4-6.5 [facility] Comment on above: Performed By: #### C BC #### [facility] [address] [address] [address] Juan Jose Banda Neutrophils/100 WBC (Bld) 53.5 % Normal 43.0-75.0 [facility] Comment on above: Performed By: #### C BC #### [facility] [address] [place] [address] Dr. Juan Jose Banda Platelet mean volume (Bld) [Entitic vol] 11.9 fL Normal 9.5-13.5 [facility] Comment on above: Performed By: #### C BC #### [facility] [address] [place] [address] Dr. Juan Jose Banda PLT 200 103/ul Normal 150-450 [facility] Comment on above: Performed By: #### C BC #### [facility] [address] [place] [address] Dr. Juan Jose Banda RBC 4.56 106/ul Normal 4.20-5.40 [facility] Comment on above: Performed By: #### C BC #### [facility] [address] [place] [address] Dr. Juan Jose Banda WBC 6.5 103/ul Normal 4.0-11.0 [facility] Comment on above: Performed By: #### C BC #### [facility] [address] [place] [address] [address] ABD/PELV W CONon 04-10-20 CT ABD/PELV W CON EXAMINATION: CT ABD/PELV W CON HISTORY: NAUSEA WITH VOMITING, UNSPECIFIED patient having multiple seizures COMPARISON: CT abdomen pelvis March 24, 2021. TECHNIQUE: CT examination of the abdomen and pelvis with IV contrast. Coronal and sagittal reformations were performed. Dose reduction techniques were achieved by using automated exposure control and/or adjustment of mA and/or kV according to patient size and/or use of iterative reconstruction technique. Findings: Examination is significantly limited due to patient motion artifact. Included Chest: Lung bases: No airspace opacities. No pleural effusions. Heart: Normal. No pericardial effusions Distal esophagus: Normal Abdomen: Liver: The liver is not well assessed due to significant motion artifact. Biliary system: No definite intrahepatic or extrahepatic biliary dilation. Gallbladder: The gallbladder is not well assessed due to significant motion artifact. Pancreas: The pancreas is not well evaluated due to motion artifact. Spleen: Normal attenuation. No masses. Adrenal glands: Normal attenuation. No masses. Kidneys: The kidneys are not well assessed due to significant motion artifact. No definite hydronephrosis or renal calculus. Stomach: The stomach is also not well evaluated due to significant motion artifact. Small and large bowel: No evidence of bowel obstruction. Appendix: Evidence of prior appendectomy. Pelvis: Urinary bladder: Within normal limits for degree of distention. Ureters: Normal. Uterus and Cervix: Unremarkable Ovaries and Adnexa: Within normal limits. No masses. Trace free fluid in the pelvis. Abdominal Aorta and Branches: Normal course and caliber. Lymphadenopathy: No lymphadenopathy by CT size criteria. Peritoneum: No free air. Bones: No acute fracture. No lytic or blastic lesions. IMPRESSION: 1. Severe motion artifact obscures evaluation of the upper abdomen. No definite acute process in the visualized portions of the abdomen and pelvis. Status post appendectomy. 2. If there remains persistent clinical concern, consider repeat exam or targeted ultrasound as clinically indicated. Electronically authenticated by: YO TO Date: 2022-04-10 08:37 Normal [facility] GROUP A STREP CULTUREon S. pyogenes Ag Ql (Unsp spec) Culture Observations: NEGATIVE FOR GROUP A STREPTOCOCCUS. Normal [facility] Comment on above: Performed By: #### U RCX #### [facility] [address] [place] [address] Dr. Juan Jose Banda LACTATE/LACTIC ACIDon 2021 Lactate [Moles/Vol] 0.9 mmol/L Normal 0.4-1.9 [facility] Comment on above: Performed By: #### U RCX #### [facility] [address] [address] [address] Juan Jose Banda Lactate [Moles/Vol] 2.5 mmol/L Critically high 0.4-1.9 [facility] Comment on above: Performed By: #### U RCX #### [facility] [address] [address] [address] Juan Jose Banda PREG HCG QUALon 04-10-2022 , QUAL Negative Normal NEGATIVE [facility] Comment on above: Performed By: #### S EDR #### [facility] [address] [address] [address] Juan Jose Banda PROF 14(COMP METB)on 022 Albumin [Mass/Vol] 4.3 g/dL Normal 3.4-5.0 [facility] Comment on above: Performed By: #### C OSORIO #### [facility] [address] [address] [address] Juan Jose Banda Albumin/Globulin [Mass ratio] 1.8 {ratio} Normal [facility] Comment on above: Performed By: #### C DILLONMAN #### [facility] [address] [place] [address] Dr. Juan Jose Banda ALP [Catalytic activity/Vol] 92 U/L Normal 46-116 [facility] Comment on above: Performed By: #### C DILLONMAN #### [facility] [address] [place] [address] Dr. Juan Jose Banda ALT [Catalytic activity/Vol] 20 U/L Normal 14-59 [facility] Comment on above: Performed By: #### C OSORIO #### [facility] [address] [place] [address] Dr. Juan Jose Banda Anion gap [Moles/Vol] 15.4 mmol/L Normal [facility] Comment on above: Performed By: #### C DILLONMAN #### [facility] [address] [place] [address] Dr. Juan Jose Banda AST [Catalytic activity/Vol] 17 U/L Normal 15-37 [facility] Comment on above: Performed By: #### C BCMAN #### [facility] [address] [place] [address] Dr. Juan Jose Banda Bilirubin [Mass/Vol] 1.2 mg/dL Critically high 0.2-1.0 [facility] Comment on above: Performed By: #### C BCMAN #### [facility] [address] [place] [address] Dr. Juan Jose Banda Calcium [Mass/Vol] 8.8 mg/dL Normal 8.5-10.1 [facility] Comment on above: Performed By: #### C BCJESSICA #### [facility] [address] [address] [address] Juan Jose Banda Chloride [Moles/Vol] 107 mmol/L Normal 98-107 [facility] Comment on above: Performed By: #### C BCMAN #### [facility] [address] [address] [address] Juan Jose Banda CO2 [Moles/Vol] 23.0 mmol/L Normal 21.0-32.0 [facility] Comment on above: Performed By: #### C BCJESSICA #### [facility] [address] [address] [address] Juan Jose Banda Creatinine [Mass/Vol] 0.95 mg/dL Normal 0.55-1.02 [facility] Comment on above: Performed By: #### C BCJESSICA #### [facility] [address] [address] [address] Juan Jose Banda Globulin (S) [Mass/Vol] 2.4 g/dL Normal [facility] Comment on above: Performed By: #### C BCJESSICA #### [facility] [address] [address] [address] Juan Jose Banda Glucose [Mass/Vol] 95 mg/dL Normal 74-106 [facility] Comment on above: Performed By: #### C BCJESSICA #### [facility] [address] [address] [address] Juan Jose Banda Potassium [Moles/Vol] 3.4 mmol/L Critically low 3.5-5.1 [facility] Comment on above: Performed By: #### C BCJESSICA #### [facility] [address] [address] [address] Juan Jose Banda Protein [Mass/Vol] 6.7 g/dL Normal 6.4-8.2 [facility] Comment on above: Performed By: #### C BCJESSICA #### [facility] [address] [address] [address] Juan Jose Banda Sodium [Moles/Vol] 142 mmol/L Normal 136-145 [facility] Comment on above: Performed By: #### C BCMAN #### [facility] [address] [address] [address] Juan Jose Banda Urea nitrogen [Mass/Vol] 13.0 mg/dL Normal 6.4-19.3 [facility] Comment on above: Performed By: #### C BCMAN #### [facility] [address] [place] [address] Dr. Juan Jose Banda Urea nitrogen/Creatinine [Mass ratio] 13.7 mg/mg Normal [facility] Comment on above: Performed By: #### C BCMAN #### [facility] [address] [place] [address] Dr. Juan Jose Banda SED [facility] 2021 SED RATE 1 mm/hr Normal <=20 [facility] Comment on above: Performed By: #### S EDR #### [facility] [address] [place] [address] Dr. Juan Jose Banda STREPT SCREENon 04-10-2022 STREP SCREEN A Negative Normal NEGATIVE [facility] Comment on above: Performed By: #### U RCX #### [facility] [address] [place] [address] Dr. Juan Jose Banda AMYLASEon 04-07-2022 Amylase [Catalytic activity/Vol] 29 U/L Normal 25-115 [facility] Comment on above: Performed By: #### H IV12 #### [facility] [address] [place] [address] Dr. Juan Jose Banda CBC AUTO DIFFon 04-07-2022 BASO # 0.0 103/ul Normal 0.0-0.1 [facility] Comment on above: Performed By: #### R PRQ #### [facility] [address] [place] [address] Dr. Juan Jose Banda Basophils/100 WBC (Bld) 0.4 % Normal 0.2-2.0 [facility] Comment on above: Performed By: #### R PRQ #### [facility] [address] [place] [address] Dr. Juan Jose Banda EO # 0.1 103/ul Normal 0.0-0.7 [facility] Comment on above: Performed By: #### R PRQ #### [facility] [address] [place] [address] Dr. Juan Jose Banda Eosinophils/100 WBC (Bld) 1.4 % Normal 0.9-7.0 [facility] Comment on above: Performed By: #### R PRQ #### [facility] [address] [place] [address] Dr. Juan Jose Banda Erythrocyte distribution width (RBC) [Ratio] 11.5 % Normal 11.0-15.0 [facility] Comment on above: Performed By: #### R PRQ #### [facility] [address] [place] [address] Dr. Juan Jose Banda Hematocrit (Bld) [Volume fraction] 36.5 % Normal 36.0-48.0 [facility] Comment on above: Performed By: #### R PRQ #### [facility] [address] [place] [address] Dr. Juan Jose Banda Hemoglobin (Bld) [Mass/Vol] 13.0 g/dL Normal 12.0-16.0 [facility] Comment on above: Performed By: #### R PRQ #### [facility] [address] [place] [address] Dr. Juan Jose Banda IG # 0.02 10e3/ul Normal 0.00-0.03 [facility] Comment on above: Performed By: #### R PRQ #### [facility] [address] [place] [address] Dr. Juan Jose Banda IG % 0.3 % Normal 0.0-0.5 [facility] Comment on above: Performed By: #### R PRQ #### [facility] [address] [place] [address] Dr. Juan Jose Banda LYMPH # 2.4 103/ul Normal 1.2-3.8 [facility] Comment on above: Performed By: #### R PRQ #### [facility] [address] [place] [address] Dr. Juan Jose Banda Lymphocytes/100 WBC (Bld) 31.4 % Normal 20.5-60.0 [facility] Comment on above: Performed By: #### R PRQ #### [facility] [address] [place] [address] Dr. Juan Jose Banda MANUAL DIFF REQ NO Normal [facility] Comment on above: Performed By: #### R PRQ #### [facility] [address] [place] [address] Dr. Juan Jose Banda MCH (RBC) [Entitic mass] 29.8 pg Normal 26.7-34.0 [facility] Comment on above: Performed By: #### R PRQ #### [facility] [address] [place] [address] Dr. Juan Jose Banda MCHC (RBC) [Mass/Vol] 35.6 g/dL Critically high 29.9-35.2 [facility] Comment on above: Performed By: #### R PRQ #### [facility] [address] [place] [address] Dr. Juan Jose Banda MCV (RBC) [Entitic vol] 83.7 fL Normal 81.0-99.0 [facility] Comment on above: Performed By: #### R PRQ #### [facility] [address] [place] [address] Dr. Juan Jose Banda MONO # 0.9 103/ul Critically high 0.3-0.8 [facility] Comment on above: Performed By: #### R PRQ #### [facility] [address] [place] [address] Dr. Juan Jose Banda Monocytes/100 WBC (Bld) 11.1 % Normal 1.7-12.0 [facility] Comment on above: Performed By: #### R PRQ #### [facility] [address] [place] [address] Dr. Juan Jose Banda NEUT # 4.3 103/ul Normal 1.4-6.5 [facility] Comment on above: Performed By: #### R PRQ #### [facility] [address] [place] [address] Dr. Juan Jose Banda Neutrophils/100 WBC (Bld) 55.4 % Normal 43.0-75.0 [facility] Comment on above: Performed By: #### R PRQ #### [facility] [address] [place] [address] Dr. Juan Jose Banda Platelet mean volume (Bld) [Entitic vol] 11.6 fL Normal 9.5-13.5 [facility] Comment on above: Performed By: #### R PRQ #### [facility] [address] [place] [address] Dr. Juan Jose Banda PLT 187 103/ul Normal 150-450 [facility] Comment on above: Performed By: #### R PRQ #### [facility] [address] [place] [address] Dr. Juan Jose Banda RBC 4.36 106/ul Normal 4.20-5.40 [facility] Comment on above: Performed By: #### R PRQ #### [facility] [address] [place] [address] Dr. Juan Jose Banda WBC 7.7 103/ul Normal 4.0-11.0 [facility] Comment on above: Performed By: #### R PRQ #### [facility] [address] [place] [address] Dr. Juan Jose Banda ER URINE PROFILEon 2 Bilirubin Ql (U) SMALL Abnormal NEGATIVE [facility] Comment on above: Performed By: #### U RCX #### [facility] [address] [place] [address] Dr. Juan Jose Banda Clarity (U) CLEAR Normal CLEAR [facility] Comment on above: Performed By: #### U RCX #### [facility] [address] [place] [address] Dr. Juan Jose Banda Color (U) YELLOW Normal YELLOW [facility] Comment on above: Performed By: #### U RCX #### [facility] [address] [place] [address] Dr. Juan Jose TAVAREZ A micrscopic examination will be performed if indicated. Normal [facility] Comment on above: Performed By: #### U RCX #### [facility] [address] [place] [address] Dr. Juan Jose Banda Glucose Ql (U) Negative Normal NEGATIVE [facility] Comment on above: Performed By: #### U RCX #### [facility] [address] [place] [address] Dr. Juan Jose Banda Hemoglobin Ql (U) Negative Normal NEGATIVE [facility] Comment on above: Performed By: #### U RCX #### [facility] [address] [place] [address] Dr. Juan Jose Banda Ketones Ql (U) 40 mg/dl Abnormal NEGATIVE [facility] Comment on above: Performed By: #### U RCX #### [facility] [address] [place] [address] Dr. Juan Jose Banda LEUKOCYTES Negative Normal NEGATIVE [facility] Comment on above: Performed By: #### U RCX #### [facility] [address] [place] [address] Dr. Juan Jose Banda Nitrite Ql (U) Negative Normal NEGATIVE [facility] Comment on above: Performed By: #### U RCX #### [facility] [address] [place] [address] Dr. Juan Jose Banda pH (U) 5.5 [pH] Normal 5-9 [facility] Comment on above: Performed By: #### U RCX #### [facility] [address] [place] [address] Dr. Juan Jose Banda SPEC GRAVITY 1.030 Abnormal 1.005-<=1.025 [facility] Comment on above: Performed By: #### U RCX #### [facility] [address] [place] [address] Dr. Juan Jose Banda UA PROTEIN Negative Normal NEGATIVE/ TRACE [facility] Comment on above: Performed By: #### U RCX #### [facility] [address] [place] [address] Dr. Juan Jose Banda UR MICRO IND NOT INDICATED Normal [facility] Comment on above: Performed By: #### U RCX #### [facility] [address] [place] [address] Dr. Juan Jose Banda Urobilinogen Qn (U) 0.2 {Tyler'U}/dL Normal 0.2 - 1. 0 [facility] Comment on above: Performed By: #### U RCX #### [facility] [address] [address] [address] Juan Jose Banda LIPASEon 04-07-2022 Lipase [Catalytic activity/Vol] 77.0 U/L Normal 73.0-393.0 [facility] Comment on above: Performed By: #### H IV12 #### [facility] [address] [place] [address] Dr. Juan Jose Banda URon 04-07-2022 , QUAL Negative Normal NEGATIVE [facility] Comment on above: Performed By: #### U RCX #### [facility] [address] [place] [address] Dr. Juan Jose Banda PROF 14(COMP METB)on 022 Albumin [Mass/Vol] 4.4 g/dL Normal 3.4-5.0 [facility] Comment on above: Performed By: #### H IV12 #### [facility] [address] [place] [address] Dr. Juan Jose Banda Albumin/Globulin [Mass ratio] 1.5 {ratio} Normal [facility] Comment on above: Performed By: #### H IV12 #### [facility] [address] [place] [address] Dr. Juan Jose Banda ALP [Catalytic activity/Vol] 97 U/L Normal 46-116 [facility] Comment on above: Performed By: #### H IV12 #### [facility] [address] [place] [address] Dr. Juan Jose Banda ALT [Catalytic activity/Vol] 16 U/L Normal 14-59 [facility] Comment on above: Performed By: #### H IV12 #### [facility] [address] [place] [address] Dr. Juan Jose Banda Anion gap [Moles/Vol] 15.4 mmol/L Normal [facility] Comment on above: Performed By: #### H IV12 #### [facility] [address] [address] [address] Juan Jose Banda AST [Catalytic activity/Vol] 19 U/L Normal 15-37 [facility] Comment on above: Performed By: #### H IV12 #### [facility] [address] [place] [address] Dr. Juan Jose Banda Bilirubin [Mass/Vol] 0.9 mg/dL Normal 0.2-1.0 [facility] Comment on above: Performed By: #### H IV12 #### [facility] [address] [place] [address] Dr. Juan Jose Banda Calcium [Mass/Vol] 9.2 mg/dL Normal 8.5-10.1 [facility] Comment on above: Performed By: #### H IV12 #### [facility] [address] [place] [address] Dr. Juan Jose Banda Chloride [Moles/Vol] 107 mmol/L Normal 98-107 [facility] Comment on above: Performed By: #### H IV12 #### [facility] [address] [place] [address] Dr. Juan Jose Banda CO2 [Moles/Vol] 22.2 mmol/L Normal 21.0-32.0 [facility] Comment on above: Performed By: #### H IV12 #### [facility] [address] [place] [address] Dr. Juan Jose Banda Creatinine [Mass/Vol] 0.94 mg/dL Normal 0.55-1.02 [facility] Comment on above: Performed By: #### H IV12 #### [facility] [address] [place] [address] Dr. Juan Jose Banda EGFR-AF FIJIAN >60 Normal >=60 [facility] Comment on above: Performed By: #### H IV12 #### [facility] [address] [place] [address] Dr. Juan Jose Banda EGFR-NON AF FIJIAN >60 Normal >=60 [facility] Comment on above: Performed By: #### H IV12 #### [facility] [address] [place] [address] Dr. Juan Jsoe Banda Globulin (S) [Mass/Vol] 2.9 g/dL Normal [facility] Comment on above: Performed By: #### H IV12 #### [facility] [address] [place] [address] Dr. Juan Jose Banda Glucose [Mass/Vol] 93 mg/dL Normal 74-106 [facility] Comment on above: Performed By: #### H IV12 #### [facility] [address] [place] [address] Dr. Juan Jose Banda Potassium [Moles/Vol] 3.6 mmol/L Normal 3.5-5.1 [facility] Comment on above: Performed By: #### H IV12 #### [facility] [address] [place] [address] Dr. Juan Jose Banda Protein [Mass/Vol] 7.3 g/dL Normal 6.4-8.2 [facility] Comment on above: Performed By: #### H IV12 #### [facility] [address] [place] [address] Dr. Juan Jose Banda Sodium [Moles/Vol] 141 mmol/L Normal 136-145 [facility] Comment on above: Performed By: #### H IV12 #### [facility] [address] [place] [address] Dr. Juan Jose Banda Urea nitrogen [Mass/Vol] 14.0 mg/dL Normal 6.4-19.3 [facility] Comment on above: Performed By: #### H IV12 #### [facility] [address] [place] [address] Dr. Juan Jose Banda Urea nitrogen/Creatinine [Mass ratio] 14.9 mg/mg Normal [facility] Comment on above: Performed By: #### H IV12 #### [facility] [address] [place] [address] Dr. Juan Jose Banda HCG-BETA SUBUNIT QUANTon hCG,Beta Subunit,Qnt,Serum <1 Normal [facility] Comment on above: Result Comment: Fema le (Non-) 0 - 5 (Postmenopausal) 0 - 8 . Female () Weeks of Gestation 3 6 - 71 4 10 - 750 5 217 - 7138 6 422 - 52875 7 [phone] 8 [id number] 9 [phone] -[phone] 10 70669 -[phone] 12 [phone] -[phone] 14 19622 - 73079 15 68547 - 53034 16 9955 - 53451 17 4675 - 88176 18 [phone] - [phone] [employer] [place] ECLIA methodology Performed By: #### R PRQ #### [facility] [address] [place] [address] Dr. Juan Jose Banda MR head/brain wo/w conon MR head/brain wo/w con [facility] [place] [address] [place] [address] MRI Report Signed Patient: Kemi Piper MR#: [id number] 59 : 2005 Acct:[id number] Age/Sex: 15 / F ADM Date: 12/15/20 Loc: [facility] Room: Type: [facility] Attending Dr: Horace Dillard DO Ordering Provider: Tyson Dillard DO Date of Service: 12/15/20 MR/MR head/brain wo/w con: siezures Copies to: Tyson Dillard DO MRI head 12/15/2020. CLINICAL DATA: Seizure activity. TECHNIQUE: MRI of the head was performed using the seizure protocol, without and with intravenous contrast. COMPARISON: None. FINDINGS: The ventricles, sulci, and cisterns are normal in size and configuration. No parenchymal signal abnormality is identified. There is no restricted diffusion to indicate acute ischemia or infarction. There is no asymmetrical hippocampal volume loss or other evidence of mesial temporal sclerosis. No intracranial mass or mass effect is seen. No abnormal contrast enhancement is visualized. No abnormal extra-axial fluid collection is noted. There is asymmetric marrow in the petrous apex on the right. The paranasal sinuses and the mastoids appear unremarkable. MR/MR head/brain wo/w con IMPRESSION: Unremarkable MRI head without and with contrast. Impression dictated by: Zackary Huynh Jr., M.D.12/15/2020 2:41 PM Dictation Location: [place] [address] Transcribed By: MADIE 12/15/20 1441 Dictated By: Zackary Huynh Jr, MD 12/15/20 1426 Signed By: 12/15/20 1441 [facility] Vital Signs Date Time Vital Sign Value Performing Clinician Mitchell george 10-18-2023 10:03-0400 Body height 175.3 cm Viki Ocasio [employer] [facility] 10-18-2023 10:03-0400 Body mass index (BMI) [Ratio] 19.73 kg/m2 Viki Ocasio [employer] [facility] 10-18-2023 10:03-0400 Body weight 60.6 kg Viki Ocasio [employer]DIRECT[employer] Work Phone: [facility] 10-18-2023 10:03-0400 Diastolic blood pressure 62 mm[Hg] Viki Ocasio [employer]-DIRECTOR OF [employer] [facility] 10-18-2023 10:03-0400 Heart rate 74 /min Viki Ocasio [employer] Work Phone: [facility] 10-18-2023 10:03-0400 Systolic blood pressure 123 mm[Hg] Viki Ocasio [employer] Work Phone: [facility] 09-28-2023 09:20-0500 Body height 175.3 cm [facility] 09-28-2023 09:20-0500 Body mass index (BMI) [Ratio] 19.64 kg/m2 [facility] 09-28-2023 09:20-0500 Body weight 60.33 kg [facility] Encounters Encounter Date Encounter Type Care Provider Facility Start: 11-03-2023 Telephone encounter [facility] Start: 10-18-2023 End: 10-18-2023 ambulatory VIKI OCASIO [facility] Start: 10-18-2023 End: 10-18-2023 Postop follow up visit related to original px Viki Ocasio APRN-DIRECTOR OF MANAGED SERVICES Work Phone: [facility] Comment on above: Status post laparosc opic cholecystectomy (Primary Dx) Start: 10-03-2023 End: 10-03-2023 Evaluation and management of inpatient [facility] Start: 10-03-2023 End: 10-03-2023 Evaluation and management of inpatient [facility] Start: 09-28-2023 End: 09-29-2023 ambulatory [facility] Start: 09-28-2023 Encounter for other preprocedural examination [facility] Start: 09-28-2023 End: 09-28-2023 Patient encounter procedure [facility] Pre-Admission Testing 2 [facility] - Pre Admit Comment on above: Preop examination (P rimary Dx); Asthma, unspecified asthma severity, unspecified whether complicated, unspecified whether persistent Start: 09-28-2023 End: 09-28-2023 Preprocedural examination done [facility] 2 [facility] Start: 09-27-2023 End: 09-27-2023 ambulatory [facility] Start: 09-27-2023 End: 09-27-2023 Office outpatient new 30 minutes Alo Morgan MD Work Phone: [facility] Comment on above: Biliary colic (Prima ry Dx) Start: 09-13-2023 Telephone encounter Gurmeet Morgan MD Work Phone: [facility] Start: 08-30-2023 End: 08-31-2023 Evaluation and management of inpatient [facility] Start: 08-24-2023 ambulatory [facility] Start: 08-23-2023 Telephone encounter Paola Temple CMA [facility] Start: 08-23-2023 ambulatory [facility] Start: 08-16-2023 Telephone encounter Alicja Beltre DO Work Phone: [facility] Start: 07-29-2023 ambulatory Rashard Hoy Facility:[facility] Start: 07-26-2023 End: 07-27-2023 ambulatory Rashard Hoy Facility[facility] Start: 07-26-2023 End: 07-26-2023 Patient encounter procedure Alicja LINARES [facility] [place] Start: 07-12-2023 ambulatory Rashard Hoy Facility[facility] Start: 07-08-2023 End: 07-08-2023 ambulatory Not Available Start: 06-27-2023 ambulatory Rashard Burns [facility] Start: 01-05-2023 Evaluation and manag ement of inpatient DR TIFFANY NOGUEIRA . Facility:[facility] Start: 01-04-2023 Evaluation and manag ement of inpatient DR TIFFANY NOGUEIRA . Facility:[facility] Start: 01-04-[address] TIFFANY NOGUEIRA . Facili ty:[facility] Start: 01-01-2023 End: 01-01-[address] TIFFANY NOGUEIRA . Facility:[facility] Start: 12-31-2022 End: 12-31-[address] TIFFANY NOGUEIRA . Facility:[facility] Start: 12-28-2022 End: 12-28-[address] TIFFANY NOGUEIRA . Facility:[facility] Start: 12-24-2022 End: 12-24-[address] TIFFANY NOGUEIRA . Facility:[facility] Start: 12-22-2022 End: 12-22-[address] TIFFANY NOGUEIRA . Facility:[facility] Start: 12-20-2022 End: 12-21-[address] TIFFANY NOGUEIRA . Facility:[facility] Start: 12-17-2022 End: 12-17-[address] JAYSON HERNÁNDEZ . Facility:[facility] Start: 11-04-2022 End: 11-04-2022 ambulatory LALITA LANGSTON . Facility:[facility] Start: 10-01-2022 End: 10-02-[address] TIFFANY NOGUEIRA . Facility:[facility] Start: 09-28-2022 End: 09-29-[address] LUISA ARCHIBALD Facility:[facility] Start: 08-25-2022 End: 08-25-2022 ambulatory SHERLYN MONTESINOS . Facility:[facility] Start: 08-24-2022 End: 08-25-[address] TIFFANY NOGUEIRA . Facility:[facility] Start: 06-25-2022 End: 06-25-[address] RASHARD BURNS . Facility:[facility] Start: 06-20-2022 End: 06-20-2022 ambulatory CASSANDRA GARCIA . Facility:[facility] Start: 06-18-2022 End: 06-19-[address] TIFFANY NOGUEIRA . Facility:[facility] Start: 06-02-2022 End: 06-02-[address] GUSTAVO VIDAL Facility:[facility] Start: 05-25-2022 End: 05-25-2022 ambulatory GEORGINA HILARIO Facility:[facility] Start: 04-29-2022 End: 04-29-[address] GUSTAVO VIDAL Facility:[facility] Start: 04-10-2022 End: 04-10-2022 ambulatory GEORGINA HILARIO Facility:[facility] Start: 04-07-2022 End: 04-07-[address] GUSTAVO VIDAL Facility:[facility] Start: 04-07-2022 End: 04-07-2022 ambulatory GEORGINA HILARIO Facility:[facility] Start: 02-22-2022 End: 02-23-[address] RASHARD BURNS . Facility: Procedures Date Procedure Procedure Detail Performing Clinician Appendectomy Alicja LINARES History of cholecystectomy Statu s post laparoscopic cholecystectomy Viki Ocasio SODA TESTER-DIRECTOR OF MANAGED SERVICES Work Phone: Plan of Treatment Date Care Activity Detail Author Start: 03-25-2026 DTaP,Tdap and Td Vac cines (7 - Td or Tdap) DTaP,Tdap and Td Vaccines (7 - Td or Tdap) [facility] Start: 10-17-2024 Adult BMI Screening Adult BMI Screen ing [facility] Start: 10-17-2024 Tobacco Screening Tobacco Screening [facility] Start: 10-03-2024 Adult BMI Screening Adult BMI Screen ing [facility] Start: 10-03-2024 Tobacco Screening Tobacco Screening [facility] Start: 09-28-2024 Adult BMI Screening Adult BMI Screen ing [facility] Start: 09-28-2024 Tobacco Screening Tobacco Screening [facility] Start: 09-27-2024 Tobacco Screening Tobacco Screening [facility] Start: 10-18-2023 End: 10-18-2023 Patient encounter procedure 10/18/2023 10:00 AM EDT Office Visit [facility] Surgery [address] [place] [phone] [facility] [address] [place] [address] [facility] General Surgery Start: 10-03-2023 End: 10-03-2023 Admission to same day surgery center 10/03/2023 11:00 AM EST - 10/03/2023 12:55 PM EST Surgery [facility] Surgery [address] [place] [phone] Alo Morgan MD [address] [place] [phone] DAVINCI CHOLECYSTECTOMY [82991 (CPT )] [facility] Comment on above: DAVINCI CHOLECYSTECT NATI [15706 (CPT )] Start: 10-03-2023 End: 10-03-2023 Laparoscopy surg cholecystectomy DAVINCI CHOLECYSTECTOMY biliary colic 10/03/2023 11:00 AM EST [facility] Start: 10-03-2023 Subsequent hospital visit by physician 10/03/2023 11:00 AM EST Hospital Encounter [facility] - Surgery [address] [place] [id number] Alo Morgan MD [address] [place] [phone] [facility] Surgery Start: 09-27-2023 End: 09-27-2023 Patient encounter procedure 09/27/2023 11:00 AM EST Office Visit [facility] [address] [place] [phone] Alo Morgan MD [address] [place] [address] [facility] General Surgery Start: 08-23-2023 End: 08-23-2023 Patient encounter procedure 08/23/2023 10:45 AM EST Office Visit [facility] [address] [place] [phone] Alo Morgan MD [address] [place] [address] [facility] General Surgery Start: 04-08-2023 Influenza vaccination Influenza Vacc ine [facility] Start: 04-03-2022 Adult BMI Screening Adult BMI Screen ing [facility] Start: 2015 Depression Screening Depression Scre ening [facility] Start: 2015 Tobacco Screening Tobacco Screening [facility] Start: 2003 Tobacco Counseling Tobacco Counselin g [facility] End: 09-26-2024 Unlisted Procedure / Surgery Unlisted Procedure / Surgery Procedures Routine Biliary colic 1 Occurrences starting 09/27/2023 until 09/26/2024 [facility] Work Phone: Comment on above: 1 Occurrences starti ng 09/27/2023 until 09/26/2024 Immunizations Immunization Date Immunization Notes Care Provider Emma lora 06-23-2021 influenza virus vaccine, unspecified formulation Paola Temple [facility] 06-22-2016 influenza virus vaccine, unspecified formulation Alicja Beltre DO Work Phone: [facility] Payers Date Payer Category Payer Medicaid [employer] [id number] 2018-Present [phone] [place] [id number] 2003 Unknown [id number] 2.16.840.1.167618.3.579.2.593 2003 Unknown [id number] 2.16.840.1.751814.3.579.2.593 2003 Unknown [id number] 2.16.840.1.905870.3.579.2.593 2003 Unknown [id number] 2.16.840.1.672271.3.579.2.593 2003 Unknown [id number] 2.16.840.1.832452.3.579.2.593 2003 Unknown [id number] 2.16.840.1.194782.3.579.2.593 2003 Unknown [id number] 2.16.840.1.405801.3.579.2.593 2003 Unknown [id number] 2.16.840.1.762832.3.579.2.593 2003 Unknown [id number] 2.16.840.1.600158.3.579.2.593 2003 Unknown [id number] 2.16.840.1.995238.3.579.2.593 2003 Unknown [id number] 2.16.840.1.784515.3.579.2.593 2003 Unknown [id number] 2.16.840.1.835767.3.579.2.593 2003 Unknown [id number] 2.16.840.1.056007.3.579.2.593 2003 Unknown [id number] 2.16.840.1.604658.3.579.2.593 2003 Unknown [id number] 2.16.840.1.492466.3.579.2.593 2003 Unknown [id number] 2.16.840.1.994907.3.579.2.593 2003 Unknown [id number] 2.16.840.1.228773.3.579.2.593 2003 Unknown [id number] 2.16.840.1.939922.3.579.2.593 2003 Unknown [id number] 2.16.840.1.997846.3.579.2.593 2003 Unknown [id number] 2.16.840.1.312009.3.579.2.593 2003 Unknown [id number] 2.16.840.1.591773.3.579.2.593 2003 Unknown [id number] 2.16.840.1.597504.3.579.2.593 2003 Unknown [id number] 2.16.840.1.364227.3.579.2.593 2003 Unknown [id number] 2.16.840.1.644210.3.579.2.593 2003 Unknown [id number] 2.16.840.1.714108.3.579.2.593 2003 Unknown [id number] 2.16.840.1.829512.3.579.2.593 2003 Unknown [id number] 2.16.840.1.906345.3.579.2.593 2003 Unknown [id number] 2.16.840.1.060745.3.579.2.1259 2003 Unknown [id number] 2.16.840.1.257935.3.579.2.727 2003 Unknown [id number] 2.16.840.1.449035.3.579.2.727 2003 Unknown [id number] 2.16.840.1.580180.3.579.2.1286 2003 Unknown [id number] 2.16.840.1.891236.3.579.2.1286 2003 Unknown [id number] 2.16.840.1.034150.3.579.2.1286 2003 Unknown [id number] 2.16.840.1.251928.3.579.2.1286 2003 Unknown [id number] 2.16.840.1.545124.3.579.2.1286 2003 Unknown [id number] 2.16.840.1.684207.3.579.2.1286 2003 Unknown [id number] 2.16.840.1.334905.3.579.2.1286 2003 Unknown [id number] 2.16.840.1.653779.3.579.2.1286 2003 Unknown [id number] 2.16.840.1.308395.3.579.2.1286 2003 Unknown [id number] 2.16.840.1.776302.3.579.2.1286 2003 Unknown [id number] 2.16.840.1.856313.3.579.2.1286 2003 Unknown [id number] 2.16.840.1.671509.3.579.2.1286 2003 Unknown [id number] 2.16.840.1.419371.3.579.2.1286 1976 Unknown [id number] 2.16.840.1.100441.3.579.2.727 1959 Unknown [id number] Unknown [id number] 2.16.840.1.958451.3.579.2.175 Social History Date Type Detail Facility Tobacco smoking status [facility] [place] Start: 04-03-2021 End: 10-18-2023 Sex Assigned At Female [facility] Start: 04-03-2021 End: 10-18-2023 Tobacco smoking status NHIS Occasional tobacco smoker [facility] Start: 04-03-2021 End: 10-18-2023 Tobacco use and exposure Smokeless tobacco non-user [facility] Start: 04-03-2021 End: 10-18-2023 Alcohol intake Lifetime non-drinker (finding) [facility] Start: 04-03-2021 End: 10-18-2023 History of Social function [facility] Housing Instability Unknown [facility] Start: 2003 Sex Assigned At Not on file P [facility] Start: 09-28-2023 Tobacco Comment Will smoke a c igarette if does not have a vape [facility] History of tobacco use Cigarette Smoker P [facility] Clinical Notes 11-28-2020 to 11-03-2023 Telephone Encounter - Tessa Roberts CMA - 11/03/2023 11:37 AM EDTTelephone Encounter - Tessa Roberts CMA - 11/03/2023 11:37 AM CYRILTGERMAN Dean - 10/18/2023 10:00 AM EDTPatient Instructions Note Date & Type Note Facility 11-03-2023 Miscellaneous Notes We received a letter from [facility] stating that the procedure on 09/27/23 was not covered. The Cholecystectomy was ordered by Dr Morgan on 09/27/23, the actual surgery wasn't performed until 10/03/23. I scanned the letter into her chart & spoke to Trinity, at the Pre-Cert Main line. She could see the letter & she will get it to the [facility] specialist. documented in this encounter [facility] 11-03-2023 Telephone encounter Note We received a letter from [facility] stating that the procedure on 09/27/23 was not covered. The Cholecystectomy was ordered by Dr Morgan on 09/27/23, the actual surgery wasn't performed until 10/03/23. I scanned the letter into her chart & spoke to Trinity, at the Pre-Cert Main line. She could see the letter & she will get it to the [facility] specialist. [facility] 10-18-2023 History of Present illness Narrative Subjective Kemi Piper is a 18 y.o. female status post robotic assisted laparoscopic cholecystectomy on 10/03/2023. She is doing well and has no concerns. She denies any pain. She denies any fevers and chills. She is tolerating oral intake. She is having regular bowel function, denies diarrhea. Objective Vitals: 10/18/23 1003 BP: 123/62 Pulse: 74 Physical Exam Abdominal: General: There is no distension. Palpations: Abdomen is soft. Tenderness: There is no abdominal tenderness. There is no guarding. Skin: General: Skin is warm and dry. Comments: Lap sites x4 clean, dry and intact. Steri-Strips removed. No signs of infection. Assessment Kemi Piper is a 18 y.o.female postop laparoscopic cholecystectomy. Plan No strenuous activity for the next 4 weeks then may resume normal activities. Final pathology discussed and given to patient in office today. Follow-up p.r.n.. Status post laparoscopic cholecystectomy [Z90.49] GERMAN DEAN [facility] [place] This note was created with the assistance of a speech recognition program. While intending to generate a timely document that accurately reflects the content of the visit, no guarantee can be provided that every grammatical or spelling mistake has been or will be identified or corrected. Thank you for your understanding. GERMAN Dean 10/18/23 1014 documented in this encounter [facility] 09-28-2023 Note XR CHEST 2 VWS Procedure: Chest x-ray performed Number of views:2 History:Preop asthma Comparison:None Findings: The heart and lungs show no acute findings, and the mediastinum and manasa are grossly negative . Impression: 1. No acute change. Finalized by Umesh Bolaños MD on 09/28/2023 10:05 AM [facility] 09-28-2023 Note Procedure: Chest x-ray performed Number of views:2 History:Preop asthma Comparison:None Findings: The heart and lungs show no acute findings, and the mediastinum and manasa are grossly negative . Impression: 1. No acute change. Finalized by Umesh Bolaños MD on 09/28/2023 10:05 AM [facility] 09-28-2023 Instructions Noemí Arnett RN - 09/28/2023 9:00 AM EST Preoperative Education Checklist- General Surgery date: 10/03/23 Surgery time: 1100 a.m. Arrival time: 0900 a.m. 1. Bring a photo ID and your insurance card with you the day of surgery. You will check in at the main lobby of the [facility]- registration desk is straight ahead as soon as you walk in. Tell them you are here for surgery. 2. If you have a Living Will/Durable Power of Employment Manager for Health Care that is not on file here, please bring a copy the day of surgery. 3. Please shower/bathe the night before surgery with the provided soap or wipes. Do not shower the morning of surgery- you will do use wipes when you arrive here at the hospital before getting into your surgical gown. Do not shave the area of your procedure for 2 days prior to your surgery. 4. NO powder, lotion, perfume/cologne, aftershave, make-up, deodorant, or hair products after you have bathed. 5. NO nail lithuanian/acrylic on at least one finger. If you are having a hand, wrist or foot surgery then all nail lithuanian and artificial/acrylic nails must be removed from that hand or foot. 6. Avoid ALL Aspirin and non-steroidal anti-inflammatory drugs and certain vitamins (Ibuprofen, Advil, Aleve, Excedrin, Meloxicam, Celebrex, fish/krill oil, etc.) for 7 days prior to surgery as instructed by your surgeon and/or your prescribing doctor. Tylenol IS ALLOWED. If you are on Ticlid, Xarelto, Eliquis, Pradaxa, Plavix or Coumadin, please check with your prescribing doctor for instructions for when to stop them. 7. If you use an inhaler, continue to use it routinely. 8. Nothing to eat or drink (not even water, gum, mints, or hard candy!) AFTER midnight prior to your surgery. 9. Take only medications that you are instructed to on the morning of surgery with a TINY SIP OF WATER. 10. Choose a responsible adult that will be able to drive you home when you are discharged from your hospital stay for your surgery and can stay with you in your home for 24 hours after your procedure. You must NOT drive any vehicle or operate any machinery for 24 hours after surgery. 11. When you dress for your appointment, please wear loose fitting clothing that is appropriate to accommodate your surgical area procedure. BRING WITH YOU ANY DEVICES YOU MAY NEED: UZMA hose, ice machine, sling/swath, brace or special shoe, oversized zip-up or button up shirt, CPAP machine if staying overnight. 12. Do NOT wear jewelry, watches, or any piercings or metal for surgery- leave these valuables and money at home. 13. Do NOT wear contact lenses for surgery- glasses are okay if needed. 14. The anesthesiologist will talk with you the day of surgery and will ask you to sign a Consent Form. 15. Refrain from smoking or any type of tobacco use for at least 8 hours and marijuana for 24 hours prior to arrival for your surgery. 16. If a GREEN BLOOD band is given to you, please bring it with you for the day of surgery. 17. Notify your surgeon if you develop any illness before your surgery. 18. If you are staying overnight, please DO NOT BRING your home medications with you. 19. If you have any questions prior to surgery, please call the Preadmission Testing office at [phone], Mon.-Fri. 7 a.m.-3 p.m. Leave a voicemail if needed. Pre-Surgery Instructions: Medication Instructions albuterol (PROVENTIL HFA;VENTOLIN HFA) 90 mcg/actuation inhaler Take morning of procedure if needed FLUoxetine (PROzac) 10 mg capsule Stop taking 0 days prior to procedure lamoTRIgine (LaMICtal) 100 mg tablet Stop taking 0 days prior to procedure ondansetron ODT (ZOFRAN ODT) 4 mg disintegrating tablet Stop taking 0 days prior to procedure pantoprazole (PROTONIX) 40 mg EC tablet Take morning of procedure How to Avoid an Infection after Your Surgery Your doctor will give you specific instructions, but remember: -ALWAYS wash hands before caring for your incision. -No picking, scratching, or rubbing your incision. -No creams, lotion, powder, rubbing alcohol or hydrogen peroxide on the incision (can harm the tissue and slow healing). -Your doctor will give you specific instructions for what type of dressing you will need and how often it will need changed for infection purposes. -No tight clothing on incision. -Do not allow anyone to touch your incision unless they are cleaning, checking, or redressing it (be sure they wash their hands first). -No contact of your incision with pets; avoid sleeping with pets. -Take full course of antibiotic if prescribed for you after surgery- do not stop unless directed to by your physician. You may also be given an antibiotic prior to your surgery to help prevent surgical site infections. -Eat a healthy and varied diet including proteins, fruits, and vegetables to help promote wound healing and keep blood sugars under control if you are diabetic. -Smoking slows the healing process by decreasing the amount of oxygen in your blood that is needed for tissue healing. Try to avoid or stop smoking if possible. LOOK at your incision each morning and each night to check the progress of healing. Some soreness, numbness, itching and/or mild bruising around the incision is normal. Call your doctor if you notice any of the following: -Increased redness or hardening around the incision area. -Increased pain at the incision site. -Incision feels hot to the touch. -Swelling or pulling apart of the incision edges. -Yellow or green drainage or foul odor coming from the incision. -Bleeding from the incision (apply pressure as needed). -Fever higher than 101 degrees Fahrenheit for more than 4 hours. SHOWERING: Your doctor will give you specific instructions, but remember: -Be careful getting into and out of the shower. -Showers should be quick (5 minutes or less). -Use a clean washcloth to gently wash your incision with soap and water and pat the area dry with a clean towel. -No re-using wash cloths or towels; get a fresh one to clean your incision. -Do not soak in the bathtub, go swimming or use a hot tub (Jacuzzi), or perform activities where your incision is submerged in water or exposed to any fluids or substances until instructed by your doctor. -If your have the sticky strips (steri-strips) over the incision, it is OK to shower with them. Do not remove them. Let them fall off on their own. If you have a question, call your doctor s office. Go to the follow-up appointment with your doctor. documented in this encounter [employer] 09-28-2023 Miscellaneous Notes Preoperative Education Checklist- General Surgery date: 10/03/23 Surgery time: 1100 a.m. Arrival time: 0900 a.m. 1. Bring a photo ID and your insurance card with you the day of surgery. You will check in at the main lobby of the [facility]- registration desk is straight ahead as soon as you walk in. Tell them you are here for surgery. 2. If you have a Living Will/Durable Power of Employment Manager for Health Care that is not on file here, please bring a copy the day of surgery. 3. Please shower/bathe the night before surgery with the provided soap or wipes. Do not shower the morning of surgery- you will do use wipes when you arrive here at the hospital before getting into your surgical gown. Do not shave the area of your procedure for 2 days prior to your surgery. 4. NO powder, lotion, perfume/cologne, aftershave, make-up, deodorant, or hair products after you have bathed. 5. NO nail lithuanian/acrylic on at least one finger. If you are having a hand, wrist or foot surgery then all nail lithuanian and artificial/acrylic nails must be removed from that hand or foot. 6. Avoid ALL Aspirin and non-steroidal anti-inflammatory drugs and certain vitamins (Ibuprofen, Advil, Aleve, Excedrin, Meloxicam, Celebrex, fish/krill oil, etc.) for 7 days prior to surgery as instructed by your surgeon and/or your prescribing doctor. Tylenol IS ALLOWED. If you are on Ticlid, Xarelto, Eliquis, Pradaxa, Plavix or Coumadin, please check with your prescribing doctor for instructions for when to stop them. 7. If you use an inhaler, continue to use it routinely. 8. Nothing to eat or drink (not even water, gum, mints, or hard candy!) AFTER midnight prior to your surgery. 9. Take only medications that you are instructed to on the morning of surgery with a TINY SIP OF WATER. 10. Choose a responsible adult that will be able to drive you home when you are discharged from your hospital stay for your surgery and can stay with you in your home for 24 hours after your procedure. You must NOT drive any vehicle or operate any machinery for 24 hours after surgery. 11. When you dress for your appointment, please wear loose fitting clothing that is appropriate to accommodate your surgical area procedure. BRING WITH YOU ANY DEVICES YOU MAY NEED: UZMA hose, ice machine, sling/swath, brace or special shoe, oversized zip-up or button up shirt, CPAP machine if staying overnight. 12. Do NOT wear jewelry, watches, or any piercings or metal for surgery- leave these valuables and money at home. 13. Do NOT wear contact lenses for surgery- glasses are okay if needed. 14. The anesthesiologist will talk with you the day of surgery and will ask you to sign a Consent Form. 15. Refrain from smoking or any type of tobacco use for at least 8 hours and marijuana for 24 hours prior to arrival for your surgery. 16. If a GREEN BLOOD band is given to you, please bring it with you for the day of surgery. 17. Notify your surgeon if you develop any illness before your surgery. 18. If you are staying overnight, please DO NOT BRING your home medications with you. 19. If you have any questions prior to surgery, please call the Preadmission Testing office at [phone], Mon.-Fri. 7 a.m.-3 p.m. Leave a voicemail if needed. Pre-Surgery Instructions: Medication Instructions albuterol (PROVENTIL HFA;VENTOLIN HFA) 90 mcg/actuation inhaler Take morning of procedure if needed FLUoxetine (PROzac) 10 mg capsule Stop taking 0 days prior to procedure lamoTRIgine (LaMICtal) 100 mg tablet Stop taking 0 days prior to procedure ondansetron ODT (ZOFRAN ODT) 4 mg disintegrating tablet Stop taking 0 days prior to procedure pantoprazole (PROTONIX) 40 mg EC tablet Take morning of procedure How to Avoid an Infection after Your Surgery Your doctor will give you specific instructions, but remember: -ALWAYS wash hands before caring for your incision. -No picking, scratching, or rubbing your incision. -No creams, lotion, powder, rubbing alcohol or hydrogen peroxide on the incision (can harm the tissue and slow healing). -Your doctor will give you specific instructions for what type of dressing you will need and how often it will need changed for infection purposes. -No tight clothing on incision. -Do not allow anyone to touch your incision unless they are cleaning, checking, or redressing it (be sure they wash their hands first). -No contact of your incision with pets; avoid sleeping with pets. -Take full course of antibiotic if prescribed for you after surgery- do not stop unless directed to by your physician. You may also be given an antibiotic prior to your surgery to help prevent surgical site infections. -Eat a healthy and varied diet including proteins, fruits, and vegetables to help promote wound healing and keep blood sugars under control if you are diabetic. -Smoking slows the healing process by decreasing the amount of oxygen in your blood that is needed for tissue healing. Try to avoid or stop smoking if possible. LOOK at your incision each morning and each night to check the progress of healing. Some soreness, numbness, itching and/or mild bruising around the incision is normal. Call your doctor if you notice any of the following: -Increased redness or hardening around the incision area. -Increased pain at the incision site. -Incision feels hot to the touch. -Swelling or pulling apart of the incision edges. -Yellow or green drainage or foul odor coming from the incision. -Bleeding from the incision (apply pressure as needed). -Fever higher than 101 degrees Fahrenheit for more than 4 hours. SHOWERING: Your doctor will give you specific instructions, but remember: -Be careful getting into and out of the shower. -Showers should be quick (5 minutes or less). -Use a clean washcloth to gently wash your incision with soap and water and pat the area dry with a clean towel. -No re-using wash cloths or towels; get a fresh one to clean your incision. -Do not soak in the bathtub, go swimming or use a hot tub (Jacuzzi), or perform activities where your incision is submerged in water or exposed to any fluids or substances until instructed by your doctor. -If your have the sticky strips (steri-strips) over the incision, it is OK to shower with them. Do not remove them. Let them fall off on their own. If you have a question, call your doctor s office. Go to the follow-up appointment with your doctor. Hibiclens and surgical instructions reviewed. Patient verbalized understanding. documented in this encounter [facility] 09-28-2023 Nurse Note Preoperative Education Checklist- General Surgery date: 10/03/23 Surgery time: 1100 a.m. Arrival time: 0900 a.m. 1. Bring a photo ID and your insurance card with you the day of surgery. You will check in at the main lobby of the [facility]- registration desk is straight ahead as soon as you walk in. Tell them you are here for surgery. 2. If you have a Living Will/Durable Power of Employment Manager for Health Care that is not on file here, please bring a copy the day of surgery. 3. Please shower/bathe the night before surgery with the provided soap or wipes. Do not shower the morning of surgery- you will do use wipes when you arrive here at the hospital before getting into your surgical gown. Do not shave the area of your procedure for 2 days prior to your surgery. 4. NO powder, lotion, perfume/cologne, aftershave, make-up, deodorant, or hair products after you have bathed. 5. NO nail lithuanian/acrylic on at least one finger. If you are having a hand, wrist or foot surgery then all nail lithuanian and artificial/acrylic nails must be removed from that hand or foot. 6. Avoid ALL Aspirin and non-steroidal anti-inflammatory drugs and certain vitamins (Ibuprofen, Advil, Aleve, Excedrin, Meloxicam, Celebrex, fish/krill oil, etc.) for 7 days prior to surgery as instructed by your surgeon and/or your prescribing doctor. Tylenol IS ALLOWED. If you are on Ticlid, Xarelto, Eliquis, Pradaxa, Plavix or Coumadin, please check with your prescribing doctor for instructions for when to stop them. 7. If you use an inhaler, continue to use it routinely. 8. Nothing to eat or drink (not even water, gum, mints, or hard candy!) AFTER midnight prior to your surgery. 9. Take only medications that you are instructed to on the morning of surgery with a TINY SIP OF WATER. 10. Choose a responsible adult that will be able to drive you home when you are discharged from your hospital stay for your surgery and can stay with you in your home for 24 hours after your procedure. You must NOT drive any vehicle or operate any machinery for 24 hours after surgery. 11. When you dress for your appointment, please wear loose fitting clothing that is appropriate to accommodate your surgical area procedure. BRING WITH YOU ANY DEVICES YOU MAY NEED: UZMA hose, ice machine, sling/swath, brace or special shoe, oversized zip-up or button up shirt, CPAP machine if staying overnight. 12. Do NOT wear jewelry, watches, or any piercings or metal for surgery- leave these valuables and money at home. 13. Do NOT wear contact lenses for surgery- glasses are okay if needed. 14. The anesthesiologist will talk with you the day of surgery and will ask you to sign a Consent Form. 15. Refrain from smoking or any type of tobacco use for at least 8 hours and marijuana for 24 hours prior to arrival for your surgery. 16. If a GREEN BLOOD band is given to you, please bring it with you for the day of surgery. 17. Notify your surgeon if you develop any illness before your surgery. 18. If you are staying overnight, please DO NOT BRING your home medications with you. 19. If you have any questions prior to surgery, please call the Preadmission Testing office at [phone], Mon.-Fri. 7 a.m.-3 p.m. Leave a voicemail if needed. Pre-Surgery Instructions: Medication Instructions albuterol (PROVENTIL HFA;VENTOLIN HFA) 90 mcg/actuation inhaler Take morning of procedure if needed FLUoxetine (PROzac) 10 mg capsule Stop taking 0 days prior to procedure lamoTRIgine (LaMICtal) 100 mg tablet Stop taking 0 days prior to procedure ondansetron ODT (ZOFRAN ODT) 4 mg disintegrating tablet Stop taking 0 days prior to procedure pantoprazole (PROTONIX) 40 mg EC tablet Take morning of procedure How to Avoid an Infection after Your Surgery Your doctor will give you specific instructions, but remember: -ALWAYS wash hands before caring for your incision. -No picking, scratching, or rubbing your incision. -No creams, lotion, powder, rubbing alcohol or hydrogen peroxide on the incision (can harm the tissue and slow healing). -Your doctor will give you specific instructions for what type of dressing you will need and how often it will need changed for infection purposes. -No tight clothing on incision. -Do not allow anyone to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
[2023-11-15 12:11] LABS: Influenza Virus A Antigen Negative; Influenza Virus B Antigen Negative; Internal Control Within Normal Limits; SARS-CoV-2 Ag NEGATIVE (NEGATIVE)
[2023-11-15 15:32] LABS: SARS-CoV-2 NAA NOT DETECTED (NOT DETECTE)
== END 2023-11-15 10:03 | disposition home or self-care (01) ==
LOC: LAB 10:02
PROVIDERS: PCP Family Medicine; Visit Provider Family Medicine
DX: J45.909 Unspecified asthma, uncomplicated (principal)
CPT/HCPCS: 87635; 87804; 87811

== ENCOUNTER 2024-02-24 12:10 | Emergency (ER) | payer OTHER, SELFPAY ==
[2024-02-24 12:16] VITALS: BP 119/88; PULSE 78; TEMP 36.6; O2SAT 99; BMI 24.9
--- NOTE | 2024-02-24 12:19 | XR_ITS ---
The [address] [address] Patient Name: NICKO EVANS MRN: [id number] date: 2005 Sex: F Assigned Patient Location: ER Current Patient Location: ER Accession/Order Number: [id number] Exam Date: 02/24/2024 12:33 Report Date: 02/24/2024 12:50 At the request of: ZHANG MENDOZA Procedure: XR wrist RT min 3V PROCEDURE: XR wrist RT min 3V HISTORY: injury ; right wrist pain COMPARISON: None. FINDINGS: BONES:Multiple overlapping structures involving the distal row carpal bones is suspected to be due to positioning. There is there does not appear to be offset and dislocation of the carpal-metacarpal joints on the lateral view. No appreciable fracture. SOFT TISSUES:No visible soft tissue swelling. EFFUSION:None visible. OTHER: Negative. XR/XR wrist RT min 3V IMPRESSION: 1. No convincing acute bone abnormality. Evaluation is slightly limited by positioning. If there remains clinical concern repeat imaging is recommended. Electronically authenticated by: LUISA ARCHIBALD Date: 02/24/2024 12:50
== END 2024-02-24 14:23 | disposition left against medical advice (07) ==
LOC: ER 12:14
PROVIDERS: Emergency Provider Emergency Medicine; PCP Family Medicine
DX: M25.531 Pain in right wrist (principal); Z53.29 Procedure and treatment not carried out because of patient's decision for other reasons
CPT/HCPCS: 73110; 99283

== ENCOUNTER 2024-10-01 09:36 | Outpatient (OUT) | payer OTHER, SELFPAY ==
[2024-10-01 10:01] LABS: Basophils Absolute Auto 0.1 10^3/uL (0.0-0.1); Basophils Percent Auto 0.7 % (0.2-2.0); Eosinophils Absolute Auto 0.4 10^3/uL (0.0-0.7); Eosinophils Percent Auto 4.9 % (0.9-7.0); Hematocrit 44.7 % (36.0-48.0); Hemoglobin 15.7 g/dL (12.0-16.0); Immature Granulocytes Abs Auto 0.02 10^3/uL (0.00-0.03); Immature Granulocytes Pct Auto 0.3 % (0.0-0.5); Lymphocytes Absolute Auto 3.1 10^3/uL (1.2-3.8); Mean Corpuscular HGB Conc 35.1 g/dL (29.9-35.2); Mean Corpuscular Hemoglobin 29.5 pg (26.7-34.0); Mean Platelet Volume 11.7 fL (9.5-13.5); Monocytes Absolute Auto 0.5 10^3/uL (0.3-0.8); Monocytes Percent Auto 7.3 % (1.7-12.0); Neutrophils Absolute Auto 3.3 10^3/uL (1.4-6.5); Neutrophils Percent Auto 44.8 % (43.0-75.0); Platelet Count 180 10^3/uL (150-450); Red Blood Count 5.32 10^6/uL (4.20-5.40); Red Cell Distribution Width 11.8 % (11.0-15.0); White Blood Count 7.3 10^3/uL (4.0-11.0)
--- OUTSIDE RECORDS SUMMARY | 2024-10-01 10:02 | XMS_ITS | CCD ---
Author Organization [facility] Care Team Providers Care Tavern Keeper Name Role Phone YASMIN ., DR ALLEN Consulting Unavailable YASMIN ., DR ALLEN Admitting Unavailable YASMIN ., DR ALLEN Attending Unavailable HOY ., DR WETZEL Primary Care Unavailable YASMIN ., DR ALLEN Consulting Unavailable YASMIN ., DR ALLEN Attending Unavailable YASMIN ., DR ALLEN Admitting Unavailable HOY ., DR WETZEL Primary Care Unavailable DRAGAN, DR LUISA Garcia Consulting Unavailable YASMIN ., DR ALLEN Attending Unavailable VIDALIA, DR YO Scanlon Consulting Unavailable YASMIN ., DR ALLEN Admitting Unavailable HOY ., DR WETZEL Primary Care Unavailable YASMIN ., DR ALLEN Consulting Unavailable YOUNG, DR GUSTAVO Garcia Attending Unavailable VIDAL, DR [...] Care Unavailable DIAB ., LALITA Consulting Unavailable YASMIN ., DR ALLEN Consulting Unavailable YASMIN ., DR ALLEN Admitting Unavailable YASMIN ., DR ALLEN Attending Unavailable HOY ., DR WETZEL Primary Care Unavailable DALLIN HERNANDEZ Consulting Unavailable KARASIK ., DR TYLER Admitting Unavailabl e KARKIMK ., DR TYLER Attending Unavailabl e KARASIK ., DR TYLER Consulting Unavailabl e HOY ., DR WETZEL Primary Care Unavailable HOY ., DR WETZEL Consulting Unavailable HOY ., DR WETZEL Primary Care Unavailable HOY ., DR WETZEL Admitting Unavailable HOY ., DR WETZEL Attending Unavailable YASMIN ., DR ALLEN Admitting Unavailable YASMIN ., DR ALLEN Attending Unavailable YASMIN ., DR ALLEN Consulting Unavailable HOY ., DR WETZEL Primary Care Unavailable ZIEBER, DR LUISA Garcia Consulting Unavailable YAMEL ., GOGO Admitting Unavailable YAMEL ., GOGO Attending Unavailable HOY ., DR WETZEL Primary Care Unavailable YAMEL ., GOGO Consulting Unavailable YAMEL ., GOGO Consulting Unavailable YAMEL ., GOGO Admitting Unavailable YAMEL ., GOGO Attending Unavailable HOY ., DR WETZEL Primary Care Unavailable YASMIN ., DR ALLEN Admitting Unavailable YASMIN ., DR ALLEN Attending Unavailable YASMIN ., DR ALLEN Consulting Unavailable HOY ., DR WETZEL Primary Care Unavailable YASMIN ., DR ALLEN Admitting Unavailable YASMIN ., DR ALLEN Attending Unavailable YASMIN ., DR ALLEN Consulting Unavailable HOY ., DR WETZEL Primary Care Unavailable ZIEBER, DR LUISA Garcia Consulting Unavailable YANELIS, GEORGINA Attending Unavailable YANELIS, GEORGINA Consulting Unavailable HOY ., DR WETZEL Primary Care Unavailable GEORGINA HILARIO Admitting Unavailable YASMIN ., DR ALLEN Admitting Unavailable YASMIN ., DR ALLEN Attending Unavailable HOY ., DR WETZEL Primary Care Unavailable RADHA ., CASSANDRA Admitting Unavailable RADHA ., CASSANDRA Attending Unavailable RADHA ., CASSANDRA Consulting Unavailable HOY ., DR WETZEL Primary Care Unavailable CARLEY PERRY Consulting Unavailable YASMIN ., DR ALLEN Consulting Unavailable YASMIN ., DR ALLEN Attending Unavailable YASMIN ., DR ALLEN Admitting Unavailable HOY ., DR WETZEL Primary Care Unavailable ZIEBER, DR LUISA Garcia Consulting Unavailable YASMIN ., DR ALLEN Attending Unavailable YASMIN ., DR ALLEN Admitting Unavailable HOY ., DR WETZEL Primary Care Unavailable YASMIN ., DR ALLEN Consulting Unavailable YASMIN ., DR ALLEN Admitting Unavailable YASMIN ., DR ALLEN Attending Unavailable HOY ., DR WETZEL Primary Care Unavailable YOUNG, DR GUSTAVO Garcia Attending Unavailable YOUNG, DR GUSTAVO Garcia Consulting Unavailable YOUNG, DR GUSTAVO Garcia Admitting Unavailable HOY ., DR WETZEL Primary Care Unavailable YASMIN ., DR ALLEN Consulting Unavailable YASMIN ., DR ALLEN Admitting Unavailable YASMIN ., DR ALLEN Attending Unavailable HOY ., DR WETZEL Primary Care Unavailable YASMIN ., DR ALLEN Admitting Unavailable YASMIN ., DR ALLEN Attending Unavailable HOY ., DR WETZEL Primary Care Unavailable YASMIN ., DR ALLEN Consulting Unavailable YASMIN ., DR ALLEN Admitting Unavailable YASMIN ., DR ALLEN Attending Unavailable HOY ., DR WETZEL Primary Care Unavailable GEORGINA HILARIO Attending Unavailable GEORGINA HILARIO Consulting Unavailable GEORGINA HILARIO Admitting Unavailable HOScout ., DR WETZEL Primary Care Unavailable RADHA ., CASSANDRA Consulting Unavailable TO, YO Consulting Unavailable YOUNG, DR GUSTAVO Garcia Attending Unavailable YOUNG, DR GUSTAVO Garcia Consulting Unavailable YOUNG, DR GUSTAVO Garcia Admitting Unavailable TC ., DR WETZEL Primary Care Unavailable ALICJA AVILA Unavailable Rashard Burns Primary Care Physician [phone] Rashard Burns Referring Unavailable Alicja LINARES Attending Unavailable Ozzie Burnslas Referring Unavailable Alicja LINARES Attending Unavailable ELISA JACKSONL Admitting Unavailable BETITO JACKSON Attending Unavailable JHOAN TENORIO Referring Unavailab le [...] Care Unavailable LANETTE, MENNATALLAH M Attending Unavailable HOY, RASHARD M Referring Unavailable HOY, RASHARD M Primary Care Unavailable Rashard Burns MD Primary Care Provider [phone] WOLFGANG HOFFMAN Attending Unavailable Rashard Burns MD Primary Care Provider [phone] Allergies Allergy Classification Reported Allergen(s) Allergy Type Date of Onset Reaction(s) Facility (1 source) amanda allergenic extract Drug Allergy [facility] Repository (1 source) Unable to obtain; Translations: [Unable to obtain] Propensity to adverse reactions (disorder) [facility] Repository (1 source) No Known Medication Allergies; Translations: [No Known Medication Allergies] Propensity to adverse reactions (disorder) [facility] Repository Medications Current Medications Medication Drug Class(es) Dates Sig (Normalized) Sig (Original) acetaminophen 500 mg oral tablet (2 sources) Start: 10-03-2023 take 2 tablets by mouth every six hours acetaminophen (TYLENOL EXTRA STRENGTH) 500 mg tablet Take 2 tablets (1,000 mg total) by mouth every 6 (six) hours. 30 tablet 0 10/03/2023 Active [id number] 200 actuat albuterol 0.09 mg/actuat metered dose inhaler (7 sources) beta2-Adrenergic Agonist albuterol HFA 90 mcg/act inhaler Inhale 2 puffs Active albuterol (PROVE NTIL HFA;VENTOLIN HFA) 90 mcg/actuation inhaler Inhale 2 puffs. 0 Active citalopram 10 mg oral tablet (3 sources) Serotonin Reuptake Inhibitor take 1 tablet by mouth in the morning citalopram (CeleXA) 10 MG tablet Take 10 mg by mouth in the morning. Active desmopressin acetate 0.2 mg oral tablet (3 sources) Vasopressin Analog, Factor VIII Activator desmopressin (DDAVP) 0.2 MG tablet 2 qam and 1 prn Active desogestrel 0.15 mg / ethinyl estradiol 0.03 mg oral tablet (3 sources) Progestin, Estrogen Start : 06-19 take 1 tablet by mouth once daily, then take 1 tablet by mouth once daily desogestrel-ethinyl estradiol (Apri) 0.15-30 MG-MCG tablet Indications: Encounter for BCP ( control pills) initial prescription Take 1 tablet by mouth Daily Take 1 tablet by mouth daily 84 tablet 3 06/19/2024 Active 24 hr desvenlafaxine succinate 50 mg extended release oral tablet (4 sources) Serotonin and Norepinephrine Reuptake Inhibitor Start : 06-22 take 1 tablet by mouth once daily Pristiq 50 mg Tab-ER 50 mg = 1 tab(s), Oral, Daily, Refills(s) 0 Start Date: 06/22/23 Status: Ordered FLUoxetine 10 mg oral capsule (7 sources) Serotonin Reuptake Inhibitor Start : 11-06 take 1 capsule by mouth once daily FLUoxetine (PROzac) 10 mg capsule TAKE 1 CAPSULE BY ORAL ROUTE PER DAILY TAKE 30 MG (20 MG + 10 MG) DAILY 0 11/06/2020 Active hyoscyamine sulfate 0.125 mg oral tablet (4 sources) Start : 07-05 hyoscyamine (Levsin) 0.125 MG tablet Take 0.125 mg by mouth 07/05/2023 Active ibuprofen 600 mg oral tablet (2 sources) Nonsteroidal Anti-inflammatory Drug Start : 10-03 take 1 tablet by mouth every six hours ibuprofen (MOTRIN) 600 mg tablet Take 1 tablet (600 mg total) by mouth every 6 (six) hours. 30 tablet 0 10/03/2023 Active lamoTRIgine 100 mg oral tablet (8 sources) Mood Stabilizer, Anti-epileptic Agent Start : 05-16 take 1 tablet by mouth in the morning lamoTRIgine (LaMICtal) 100 MG tablet Take 1 tablet by mouth in the morning and 1 tablet before bedtime. 05/16/2023 Active medroxyPROGESTERone acetate 10 mg oral tablet (11 sources) Progestin Start : 09-25 End: 10-09 take 1 tablet by mouth once daily medroxyPROGESTERone (Provera) 10 MG tablet Indications: PCOS (polycystic ovarian syndrome) Take 1 tablet (10 mg) by mouth Daily for 14 days 14 tablet 09/25/2024 10/09/2024 Active Start: 12-30-2023 medroxyPROGEST ERone (Depo-Provera) 150 MG/ML suspension prefilled syringe injection syringe Indications: Encounter for initial prescription of injectable contraceptive INJECT 1 ML (150 MG) INTO THE SHOULDER, THIGH, OR BUTTOCKS EVERY 3 (THREE) MONTHS. 1 mL 3 12/30/2023 Active Start: 09-30-2023 medroxyPROGEST ERone (Depo-Provera) injection 150 mg medroxyPROGESTER one (DEPO-PROVERA) 150 mg/mL injection Inject 1 mL (150 mg total) into the appropriate muscle every 3 (three) months. 0 Active ondansetron 4 mg disintegrating oral tablet (8 sources) Serotonin-3 Receptor Antagonist Start: 06-01-2023 ondansetron ODT (Zofran-ODT) [address] ONE TABLET ON THE TONGUE AND ALLOW TO DISSOLVE EVERY 6 HOURS NEEDED FOR 3 DAYS 06/02/2023 Active pantoprazole 40 mg delayed release oral tablet (6 sources) Proton Pump Inhibitor Start: 06-01-2023 pantoprazole (ProtoNix) 40 MG EC tablet Take 40 mg by mouth 06/01/2023 Active Vit-Fe Fumarate-FA ( Plus) 27-1 MG tablet (3 sources) Vit-Fe Fumarate-FA ( Plus) 27-1 MG tablet 1 (one) time each day at the same time. Active Problems Active Problems Problem Classification Problem Date Documented Date Episodic/Chronic Abdominal pain (12 sources) Unspecified abdominal pain; Translations: [Upper abdominal pain, unspecified] Onset: 02-22-2022 Episodic Allergic reactions (1 source) Allergy, unspecified, initial encounter; Translations: [ALLERGY UNSPECIFIED INITIAL ENCNTR] Onset: 11-08-2022 Episodic Asthma (3 sources) Asthma; Translations: [Unspecified asthma, uncomplicated] Onset: 09-28-2023 07-05-2023 Chronic Attention-deficit, conduct, and disruptive behavior disorders (4 sources) Attention deficit hyperactivity disorder; Translations: [Attention-deficit hyperactivity disorder, unspecified type] Onset: 01-11-2012 07-05-2023 Chronic Biliary tract disease [...] Translations: [GERD WITHOUT ESOPHAGITIS] Onset: 04-30-2022 Chronic Genitourinary symptoms and ill-defined conditions (3 sources) Nocturnal enuresis; Translations: [Nocturnal enuresis] Onset: 12-12-2012 01-26-2023 Chronic Headache; including migraine (4 sources) Migraine; Translations: [Migraine, unspecified, not intractable, without status migrainosus] Onset: 11-28-2020 07-05-2023 Chronic Menstrual disorders (4 sources) Irregular menstruation, unspecified; Translations: [IRREGULAR MENSTRUATION UNSPECIFIED] Onset: 08-24-2022 Chronic Miscellaneous mental health disorders (4 sources) Dissociative neurological symptom disorder; 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-2020 07-05-2023 Chronic Other aftercare (1 source) Other termite exterminator (current) drug therapy; Translations: [OTH CUSTODIAL CURRENT DRUG THERAPY] Onset: 11-08-2022 Episodic Other [...] applicable or unspecified; Translations: [MAT CARE OTH SD FTL GRTH 3RD TM UNS] Onset: 12-31-2022 [...] DISCREPANCY UNS TRI] Onset: 12-20-2022 Episodic Other endocrine disorders (2 sources) Polycystic ovary syndrome; Translations: [Polycystic ovarian syndrome] 09-25-2024 Chronic Other lower respiratory disease (3 sources) Shortness of breath; Translations: [SHORTNESS OF BREATH] Onset: 11-04-2022 Episodic Residual codes; unclassified (1 source) 36 [...] Other Problems Problem Classification Problem Date Documented Date Episodic/Chronic Administrative/social admission (3 sources) Deterioration in school performance; Translations: [Other problems related to education and literacy] Onset: 01-21-2015 01-26-2023 Episodic Hemorrhage during ; abruptio placenta; placenta previa [...] PREG UNS TRI] Onset: 05-31-2022 Episodic Other and delivery including normal (17 sources) Encounter for supervision of normal , unspecified, third trimester; Translations: [Encounter for supervision of normal first , first trimester] Onset: 06-22-2022 Episodic Other upper respiratory infections (1 source) [...] ( test) Ql (U) Negative Normal NEG [facility] Comment on above: Performed By: #### 2 106-3 #### [facility] ([id number]) [address] [place] [address], [place] [address] Surgical Pathologyon 024 Surgical Pathology Normal [facility] Comment on above: Result Comment: [facility] [address] [place] [address] Surgical Pathology Consultation Patient Name:KEMI PIPER:2005 (Age: 18)Gender:FTaken:4Reported:10/06/2023hysician(s):Louise Morgan MD ([phone])Copy To: Rec. #:[id number]: #[id number] Final Pathologic Diagnosis Gallbladder, cholecystectomy: - Chronic cholecystitis and cholesterolosis. - Benign reactive lymph node. Report Electronically Signed Out eak/10/06/2023Serena Quintanilla MD Interpretation performed at [facility], [address] [place] [address], License number: [id number]. Clinical History Biliary colic. Gross Description Received in formalin labeled VERONIQUE, gallbladder is an intact gallbladder, 7 x [...] duct margin, bisected lymph node and a retail field representative section of the gallbladder neck are submitted in cassette A with additional sections from the gallbladder are submitted in cassette B (to include polypoid like projection). (2, ss, [id number], A???B, m2) JG jmg/10/04/2023EAK Specimen(s) Received Gallbladder Fee Codes(s): 1; 40839 BASIC METABOLIC PANLon 09-28 Anion gap [Moles/Vol] 7 mmol/L Normal 5-15 [facility] Comment on above: Performed By: #### C BCA, BMP, LIVR #### [facility] ([id number]) [address] [place] [address] Calcium [Mass/Vol] 9.0 mg/dL Normal 8.5-10.5 [facility] Comment on above: Performed By: #### C BCA, BMP, LIVR #### [facility] ([id number]) [address] [place] [address] Chloride [Moles/Vol] 109 mmol/L Normal 98-109 [facility] Comment on above: Performed By: #### C BCA, BMP, LIVR #### [facility] ([id number]) [address] [facility] [place] [address] CO2 [Moles/Vol] 27 mmol/L Normal 22-32 [facility] Comment on above: Performed By: #### C BCA, BMP, LIVR #### [facility] ([id number]) [address] [facility] [place] [address] Creatinine [Mass/Vol] 0.98 mg/dL Normal 0.40-1.00 [facility] Comment on above: Result Comment: METH OD TRACEABLE TO IDMS STANDARD Performed By: #### C BCA, BMP, LIVR #### [facility] ([id number]) [address] [place] [address] GFR/1.73 sq M.predicted among non-blacks MDRD (S/P/Bld) [Vol rate/Area] 85 mL/min/{1.73_m2} Normal >59 [facility] Comment on above: Result Comment: Reported eGFR is based on the CKD-EPI 2020 equation that does not use a race coefficient. Performed By: #### C BCA, BMP, LIVR #### [facility] ([id number]) [address] [address] Glucose [Mass/Vol] 82 mg/dL Normal 65-99 [facility] Comment on above: Performed By: #### C BCA, BMP, LIVR #### [facility] ([id number]) [address] [address] Potassium [Moles/Vol] 4.0 mmol/L Normal 3.5-5.0 [facility] Comment on above: Performed By: #### C BCA, BMP, LIVR #### [facility] ([id number]) [address] [address] Sodium [Moles/Vol] 143 mmol/L Normal 134-146 [facility] Comment on above: Performed By: #### C BCA, BMP, LIVR #### [facility] ([id number]) [address] [address] Urea nitrogen [Mass/Vol] 7 mg/dL Normal 5-23 [facility] Comment on above: Performed By: #### C BCA, BMP, LIVR #### [facility] ([id number]) [address] [address] Basic Metabolic Panelon -2 Anion gap [Moles/Vol] 7 mmol/L 5 - 15 mmol/L [facility] Calcium [Mass/Vol] 9.0 mg/dL 8.5 - 10. 5 mg/dL [facility] Chloride [Moles/Vol] 109 mmol/L 98 - 109 mmol/L [facility] CO2 [Moles/Vol] 27 mmol/L 22 - 32 mmol/L [facility] Creatinine [Mass/Vol] 0.98 mg/dL 0.40 - 1.00 mg/dL [facility] Comment on above: METHOD TRACEABLE TO IDSD STANDARD eGFR (CKD-EPI)non-race dependent 85 - PINF [facility] Comment on above: Reported eGFR is based on the CKD-EPI 2020 equation that does not use a race coefficient. Glucose [Mass/Vol] 82 mg/dL 65 - 99 mg/dL [facility] Potassium [Moles/Vol] 4.0 mmol/L 3.5 - 5.0 mmol/L [facility] Sodium [Moles/Vol] 143 mmol/L 134 - 146 mmol/L [facility] Urea nitrogen [Mass/Vol] 7 mg/dL 5 - 23 mg/dL [facility] CBC AND AUTO DIFFon 09-28-19 ABSOLUTE BASOPHIL 0.0 X10E9/L Normal 0.0-0.2 [facility] Comment on above: Performed By: #### C TIMUR BMP, LIVR #### [facility] ([id number]) [address] [place] [address] ABSOLUTE NEUTROPHIL 2.8 X10E9/L Normal 1.5-6.6 [facility] Comment on above: Performed By: #### Seble DING BMP, LIVR #### [facility] ([id number]) [address] [place] [address], [address] [address] Basophils/100 WBC (Bld) 0.6 % Normal [facility] Comment on above: Performed By: #### Seble DING BMP, LIVR #### [facility] ([id number]) [address] [place] [address] Eosinophils (Bld) [#/Vol] 0.2 10*3/uL Normal 0.0-0.4 [facility] Comment on above: Performed By: #### Seble DING BMP, LIVR #### [facility] ([id number]) [address] [address] [place] [address] Eosinophils/100 WBC (Bld) 2.8 % Normal [facility] Comment on above: Performed By: #### C BCA, BMP, LIVR #### [facility] ([id number]) [address] [place] [address] Erythrocyte distribution width (RBC) [Ratio] 12.2 % Normal 11.5-15.0 [facility] Comment on above: Performed By: #### C BCA, BMP, LIVR #### [facility] ([id number]) [address] [place] [address] Hematocrit (Bld) [Volume fraction] 39.7 % Normal 35-47 [facility] Comment on above: Performed By: #### C BCA, BMP, LIVR #### [facility] ([id number]) [address] [place] [address] Hemoglobin (Bld) [Mass/Vol] 13.6 g/dL Normal 11.7-15.5 [facility] Comment on above: Performed By: #### C BCA, BMP, LIVR #### [facility] ([id number]) [address] [facility] [address] [place] [address] Lymphocytes (Bld) [#/Vol] 2.2 10*3/uL Normal 1.0-3.5 [facility] Comment on above: Performed By: #### C BCA, BMP, LIVR #### [facility] ([id number]) [address] [place] [address] Lymphocytes/100 WBC (Bld) 38.4 % Normal [facility] Comment on above: Performed By: #### C BCA, BMP, LIVR #### [facility] ([id number]) [address] [place] [address] MCH (RBC) [Entitic mass] 29.6 pg Normal 27-34 [facility] Comment on above: Performed By: #### C TIMUR BMP, LIVR #### [facility] ([id number]) [address] [facility] [address] [place] [address] MCHC (RBC) [Mass/Vol] 34.3 g/dL Normal 32-36 [facility] Comment on above: Performed By: #### C TIMUR BMP, LIVR #### [facility] ([id number]) [address] [place] [address] MCV (RBC) [Entitic vol] 87 fL Normal 80-100 [facility] Comment on above: Performed By: #### C TIMUR BMP, LIVR #### [facility] ([id number]) [address] [place] [address] Monocytes (Bld) [#/Vol] 0.5 10*3/uL Normal 0-0.9 [facility] Comment on above: Performed By: #### C TIMUR BMP, LIVR #### [facility] ([id number]) [address], [address] [address] Monocytes/100 WBC (Bld) 9.2 % Normal [facility] Comment on above: Performed By: #### C TIMUR BMP, LIVR #### [facility] ([id number]) [address] [address] Neutrophils/100 WBC (Bld) 49.0 % Normal [facility] Comment on above: Performed By: #### C TIMUR, BMP, LIVR #### [facility] ([id number]) [address] [place] [address] Platelet mean volume (Bld) [Entitic vol] 10.8 fL Normal 7-12 [facility] Comment on above: Performed By: #### C BCA, BMP, LIVR #### [facility] ([id number]) [address] [place] [address] Platelets (Bld) [#/Vol] 212 10*3/uL Normal 150-450 [facility] Comment on above: Performed By: #### Seble BCA, BMP, LIVR #### [facility] ([id number]) [address] [place] [address] RBC COUNT 4.60 X10E12/L Normal 3.80-5.20 [facility] Comment on above: Performed By: #### Seble DING, BMP, LIVR #### [facility] ([id number]) [address] [place] [address] WBC (Bld) [#/Vol] 5.7 10*3/uL Normal 4.0-11.0 [facility] Comment on above: Performed By: #### Seble DING, BMP, LIVR #### [facility] ([id number]) [address] [place] [address] CBC auto differentialon 09-09 Basophils (Bld) [#/Vol] 0.0 10*3/uL [facility] Basophils/100 WBC (Bld) 0.6 % [facility] Eosinophils (Bld) [#/Vol] 0.2 10*3/uL [facility] Eosinophils/100 WBC (Bld) 2.8 % [facility] Erythrocyte distribution width (RBC) [Ratio] 12.2 % 11.5 - 15.0 % [facility] Hematocrit (Bld) [Volume fraction] 39.7 % 35 - 47 % [facility] Hemoglobin (Bld) [Mass/Vol] 13.6 g/dL 11.7 - 15.5 g/dL [facility] Lymphocytes (Bld) [#/Vol] 2.2 10*3/uL [facility] Lymphocytes/100 WBC (Bld) 38.4 % [facility] MCH (RBC) [Entitic mass] 29.6 pg 27 - 34 pg [facility] MCHC (RBC) [Mass/Vol] 34.3 g/dL 32 - 36 g/dL [facility] MCV (RBC) [Entitic vol] 87 fL 80 - 100 fL [facility] Monocytes (Bld) [#/Vol] 0.5 10*3/uL [facility] Monocytes/100 WBC (Bld) 9.2 % [facility] Neutrophils (Bld) [#/Vol] 2.8 10*3/uL [facility] Neutrophils/100 WBC (Bld) 49.0 % [facility] Platelet mean volume (Bld) [Entitic vol] 10.8 fL 7 - 12 fL [facility] Platelets (Bld) [#/Vol] 212 10*3/uL [facility] RBC (Bld) [#/Vol] 4.60 10*6/uL [facility] WBC corrected for nucl RBC Auto (Bld) [#/Vol] 5.7 [facility] ECG 12 leadon 09-28-2023 TRACEMASTERVUE [facility] LIVER PANELon 09-28-2023 Albumin [Mass/Vol] 4.4 g/dL Normal 3.2-5.3 [facility] Comment on above: Performed By: #### C BCA, BMP, LIVR #### [facility] ([id number]) [address] [place] [address] ALP [Catalytic activity/Vol] 65 U/L Normal 39-130 [facility] Comment on above: Performed By: #### C BCA, BMP, LIVR #### [facility] ([id number]) [address], [address] [place] [address] ALT [Catalytic activity/Vol] 18 U/L Normal 0-31 [facility] Comment on above: Performed By: #### C BCA, BMP, LIVR #### [facility] ([id number]) [address], [address] [place] [address] AST [Catalytic activity/Vol] 16 U/L Normal 0-41 [facility] Comment on above: Performed By: #### C TIMUR BMP, LIVR #### [facility] ([id number]) [address], [address] [place] [address] Bilirubin [Mass/Vol] 0.5 mg/dL Normal 0.3-1.2 [facility] Comment on above: Performed By: #### C TIMUR, BMP, LIVR #### [facility] ([id number]) [address], [address] [place] [address] Bilirubin.direct [Mass/Vol] 0.2 mg/dL Normal 0.0-0.4 [facility] Comment on above: Performed By: #### Seble DING, BMP, LIVR #### [facility] ([id number]) [address], [address] [place] [address] Protein [Mass/Vol] 6.6 g/dL Normal 6.0-8.0 [facility] Comment on above: Performed By: #### Seble DING, BMP, LIVR #### [facility] ([id number]) [address] [place] [address] Liver panelon 09-28-2023 Albumin [Mass/Vol] 4.4 g/dL 3.2 - 5.3 g/dL [facility] ALP [Catalytic activity/Vol] 65 U/L 39 - 130 U/L [facility] ALT No additional P-5'-P [Catalytic activity/Vol] 18 U/L 0 - 31 U/L [facility] AST [Catalytic activity/Vol] 16 U/L 0 - 41 U/L [facility] Bilirubin [Mass/Vol] 0.5 mg/dL 0.3 - 1.2 mg/dL [facility] Bilirubin.direct [Mass/Vol] 0.2 mg/dL 0.0 - 0.4 mg/dL [facility] Protein [Mass/Vol] 6.6 g/dL 6.0 - 8.0 g/dL [facility] No Panel Informationon 09-28 [facility] XR Chest PA and Lateralon Umesh Bolaños MD - 09/28/2023 Procedure: Chest x-ray performed Number of views:2 History:Preop asthma Comparison:None Findings: The heart and lungs show no acute findings, and the mediastinum and manasa are grossly negative . Impression: 1. No acute change. 5 Finalized by Umesh Bolaños MD on 09/28/2023 10:05 AM [facility] Study observation (narrative) [facility] XR Chest PA and LateralOrder ed By: Umesh Bolaños on 09-28-2023 [facility] Work Phone: Basic Metab w/rfx MGon 08-31 Anion gap [Moles/Vol] 8 mmol/L Low 9-17 [facility] Comment on above: Performed By: #### B MPX, CDP #### [facility] [address] [place] [address] Financial Aid Manager: Quirino Valladares MD Calcium [Mass/Vol] 8.3 mg/dL Low 8.6-10.4 [facility] Comment on above: Performed By: #### B MPX, CDP #### [facility] [address] [place] [address] Financial Aid Manager: Quirino Valladares MD Chloride [Moles/Vol] 107 mmol/L Normal 98-107 [facility] Comment on above: Performed By: #### B MPX, CDP #### [facility] [address] [place] [address] Financial Aid Manager: Quirino Valladares MD CO2 [Moles/Vol] 24 mmol/L Normal 20-31 [facility] Comment on above: Performed By: #### B MPX, CDP #### [facility] [address] [place] [address] Financial Aid Manager: Quirino Valladares MD Creatinine [Mass/Vol] 0.9 mg/dL Normal 0.5-0.9 [facility] Comment on above: Performed By: #### B MPX, CDP #### [facility] [employer] [facility] [address] [place] [address] Financial Aid Manager: Quirino Valladares MD GFR/1.73 sq M.predicted among non-blacks MDRD (S/P/Bld) [Vol rate/Area] mL/min/{1.73_m2} Normal >60 [facility] Comment on above: Result Comment: These results [...] By: #### B MPX, CDP #### [facility] [address] [place] [address] Financial Aid Manager: Quirino Valladares MD Glucose [Mass/Vol] 88 mg/dL Normal 70-99 [facility] Comment on above: Performed By: #### B MPX, CDP #### [facility] [address] [place] [address] Financial Aid Manager: Quirino Valladares MD Potassium [Moles/Vol] 3.6 mmol/L Low 3.7-5.3 [facility] Comment on above: Performed By: #### B MPX, CDP #### [facility] [address] [place] [address] Financial Aid Manager: Quirino Valladares MD Sodium [Moles/Vol] 139 mmol/L Normal 135-144 [facility] Comment on above: Performed By: #### B MPX, CDP #### [facility] [address] [place] [address] Financial Aid Manager: Quirino Valladares MD Urea nitrogen [Mass/Vol] 9 mg/dL Normal 6-20 [facility] Comment on above: Performed By: #### B MPX, CDP #### [facility] [address] [place] [address] Financial Aid Manager: Quirino Valladares MD CBC with Diffon 08-31-2023 Abs. Basophil 0.04 k/uL Normal 0.00-0.20 [facility] Comment on above: Performed By: #### B MPX, CDP #### [address] [address] Financial Aid Manager: Quirino Valladares MD Abs.Imm.Granulocyte <0.03 Normal 0.00-0.30 [facility] Comment on above: Performed By: #### B MPX, CDP #### [facility] [address] [place] [address] Financial Aid Manager: Quirino Valladares MD Abs.Neutrophil (Seg) 2.46 k/uL Normal 1.80-8.00 [facility] Comment on above: Performed By: #### B MPX, CDP #### [facility] [address] [place] [address] Financial Aid Manager: Quirino Valladares MD Basophils/100 WBC (Bld) 1 % Normal 0-2 [facility] Comment on above: Performed By: #### B MPX, CDP #### [facility] [address] [place] [address] Financial Aid Manager: Quirino Valladares MD Eosinophils (Bld) [#/Vol] 0.11 10*3/uL Normal 0.00-0.44 [facility] Comment on above: Performed By: #### B MPX, CDP #### [facility] [address] [place] [address] Financial Aid Manager: Quirino Valladares MD Eosinophils/100 WBC (Bld) 2 % Normal 1-4 [facility] Comment on above: Performed By: #### B MPX, CDP #### [address] [address] Financial Aid Manager: Quirino Valladares MD Erythrocyte distribution width (RBC) [Ratio] 11.9 % Normal 11.8-14.4 [facility] Comment on above: Performed By: #### B MPX, CDP #### [facility] [address] [place] [address] Financial Aid Manager: Quirino Valladares MD Hematocrit (Bld) [Volume fraction] 36.8 % Normal 36.3-47.1 [facility] Comment on above: Performed By: #### B MPX, CDP #### [address] [address] Financial Aid Manager: Quirino Valladares MD Hemoglobin (Bld) [Mass/Vol] 12.6 g/dL Normal 11.9-15.1 [facility] Comment on above: Performed By: #### B MPX, CDP #### [address] [address] Financial Aid Manager: Quirino Valladares MD Immature granulocytes/100 WBC (Bld) 0 % Normal 0 [facility] Comment on above: Performed By: #### B MPX, CDP #### [address] [address] Financial Aid Manager: Quirino Valladares MD Lymphocytes (Bld) [#/Vol] 2.61 10*3/uL Normal 1.20-5.20 [facility] Comment on above: Performed By: #### B MPX, CDP #### [facility] [address] [place] [address] Financial Aid Manager: Quirino Valladares MD Lymphocytes/100 WBC (Bld) 45 % Normal 25-45 [facility] Comment on above: Performed By: #### B MPX, CDP #### [address] [address] Financial Aid Manager: Quirino Valladares MD MCH (RBC) [Entitic mass] 29.6 pg Normal 25.2-33.5 [facility] Comment on above: Performed By: #### B MPX, CDP #### [address] [address] Financial Aid Manager: Quirino Valladares MD MCHC (RBC) [Mass/Vol] 34.2 g/dL Normal 28.4-34.8 [facility] Comment on above: Performed By: #### B MPX, CDP #### [address] [address] Financial Aid Manager: Quirino Valladares MD MCV (RBC) [Entitic vol] 86.4 fL Normal 82.6-102.9 [facility] Comment on above: Performed By: #### B MPX, CDP #### [address] [address] Financial Aid Manager: Quirino Valladares MD Monocytes (Bld) [#/Vol] 0.52 10*3/uL Normal 0.10-1.40 [facility] Comment on above: Performed By: #### B MPX, CDP #### [address] [address] Financial Aid Manager: Quirino Valladares MD Monocytes/100 WBC (Bld) 9 % High 2-8 [facility] Comment on above: Performed By: #### B MPX, CDP #### [address] [address] Financial Aid Manager: Quirino Valladares MD Neutrophil (Seg) 43 % Normal 34-64 [facility] Comment on above: Performed By: #### B MPX, CDP #### [facility] [address] [place] [address] Financial Aid Manager: Quirino Valladares MD NRBC Automated 0.0 per 100 WBC Normal 0.0 [facility] Comment on above: Performed By: #### B MPX, CDP #### [facility] [address] [place] [address] Financial Aid Manager: Quirino Valladares MD Platelet mean volume (Bld) [Entitic vol] 12.3 fL Normal 8.1-13.5 [facility] Comment on above: Performed By: #### B MPX, CDP #### [facility] [address] [place] [address] Financial Aid Manager: Quirino Valladares MD Platelets (Bld) [#/Vol] 210 10*3/uL Normal 138-453 [facility] Comment on above: Performed By: #### B MPX, CDP #### [address] [address] Financial Aid Manager: Quirino Valladares MD RBC (Bld) [#/Vol] 4.26 10*6/uL Normal 3.95-5.11 [facility] Comment on above: Performed By: #### B MPX, CDP #### [address] [address] Financial Aid Manager: Quirino Valladares MD WBC (Bld) [#/Vol] 5.8 10*3/uL Normal 4.5-13.5 [facility] Comment on above: Performed By: #### B MPX, CDP #### [address] [address] Financial Aid Manager: Quirino Valladares MD Basic Metab w/rfx MGon 08-30 Potassium [Moles/Vol] 3.5 mmol/L Low 3.7-5.3 [facility] Comment on above: Performed By: #### C DP, BMPX, MG #### [address] [address] Financial Aid Manager: Quirino Valladares MD Anion gap [Moles/Vol] 8 mmol/L Low 9-17 [facility] Comment on above: Performed By: #### C DP, BMPX, MG #### [address] [address] Financial Aid Manager: Quirino Valladares MD Calcium [Mass/Vol] 8.8 mg/dL Normal 8.6-10.4 [facility] Comment on above: Performed By: #### C DP, BMPX, MG #### [facility] [address] [place] [address] Financial Aid Manager: Quirino Valladares MD Chloride [Moles/Vol] 105 mmol/L Normal 98-107 [facility] Comment on above: Performed By: #### C DP, BMPX, MG #### [address] [address] Financial Aid Manager: Quirino Valladares MD CO2 [Moles/Vol] 23 mmol/L Normal 20-31 [facility] Comment on above: Performed By: #### C DP, BMPX, MG #### [address] [address] Financial Aid Manager: Quirino Valladares MD Creatinine [Mass/Vol] 0.8 mg/dL Normal 0.5-0.9 [facility] Comment on above: Performed By: #### C DP, BMPX, MG #### [address] [address] Financial Aid Manager: Quirino Valladares MD GFR/1.73 sq M.predicted among non-blacks MDRD (S/P/Bld) [Vol rate/Area] mL/min/{1.73_m2} Normal >60 [facility] Comment on above: Result Comment: These results [...] By: #### C DP, BMPX, MG #### [address] [address] Financial Aid Manager: Quirino Valladares MD Glucose [Mass/Vol] 73 mg/dL Normal 70-99 [facility] Comment on above: Performed By: #### C DP, BMPX, MG #### [address] [address] Financial Aid Manager: Quirino Valladares MD Sodium [Moles/Vol] 136 mmol/L Normal 135-144 [facility] Comment on above: Performed By: #### C DP, BMPX, MG #### [address] [address] Financial Aid Manager: Quirino Valladares MD Urea nitrogen [Mass/Vol] 7 mg/dL Normal 6-20 [facility] Comment on above: Performed By: #### C DP, BMPX, MG #### [address] [address] Financial Aid Manager: Quirino Valladares MD CBC with Diffon 08-30-2023 Abs. Basophil 0.03 k/uL Normal 0.00-0.20 [facility] Comment on above: Performed By: #### C DP, BMPX, MG #### [facility] [address] [place] [address] Financial Aid Manager: Quirino Valladares MD Abs.Imm.Granulocyte <0.03 Normal 0.00-0.30 [facility] Comment on above: Performed By: #### C DP, BMPX, MG #### [address] [address] Financial Aid Manager: Quirino Valladares MD Abs.Neutrophil (Seg) 2.17 k/uL Normal 1.80-8.00 [facility] Comment on above: Performed By: #### C DP, BMPX, MG #### [facility] [address] [place] [address] Financial Aid Manager: Quirino Valladares MD Basophils/100 WBC (Bld) 1 % Normal 0-2 [facility] Comment on above: Performed By: #### C DP, BMPX, MG #### [place] [address] Financial Aid Manager: Quirino Valladares MD Eosinophils (Bld) [#/Vol] 0.08 10*3/uL Normal 0.00-0.44 [facility] Comment on above: Performed By: #### C DP, BMPX, MG #### [place] [address] Financial Aid Manager: Quirino Valladares MD Eosinophils/100 WBC (Bld) 2 % Normal 1-4 [facility] Comment on above: Performed By: #### C DP, BMPX, MG #### [facility] [address] [place] [address] Financial Aid Manager: Quirino Valladares MD Erythrocyte distribution width (RBC) [Ratio] 11.9 % Normal 11.8-14.4 [facility] Comment on above: Performed By: #### C DP, BMPX, MG #### [facility] [address] [place] [address] Financial Aid Manager: Quirino Valladares MD Hematocrit (Bld) [Volume fraction] 40.0 % Normal 36.3-47.1 [facility] Comment on above: Performed By: #### C DP, BMPX, MG #### [address] [address] Financial Aid Manager: Quirino Valladares MD Hemoglobin (Bld) [Mass/Vol] 13.6 g/dL Normal 11.9-15.1 [facility] Comment on above: Performed By: #### C DP, BMPX, MG #### [address] [address] Financial Aid Manager: Quirino Valladares MD Immature granulocytes/100 WBC (Bld) 0 % Normal 0 [facility] Comment on above: Performed By: #### C DP, BMPX, MG #### [address] [address] Financial Aid Manager: Quirino Valladares MD Lymphocytes (Bld) [#/Vol] 1.69 10*3/uL Normal 1.20-5.20 [facility] Comment on above: Performed By: #### C DP, BMPX, MG #### [address] [address] Financial Aid Manager: Quirino Valladares MD Lymphocytes/100 WBC (Bld) 38 % Normal 25-45 [facility] Comment on above: Performed By: #### C DP, BMPX, MG #### [facility] [address] [place] [address] Financial Aid Manager: Quirino Valladares MD MCH (RBC) [Entitic mass] 29.6 pg Normal 25.2-33.5 [facility] Comment on above: Performed By: #### C DP, BMPX, MG #### [facility] [address] [place] [address] Financial Aid Manager: Quirino Valladares MD MCHC (RBC) [Mass/Vol] 34.0 g/dL Normal 28.4-34.8 [facility] Comment on above: Performed By: #### C DP, BMPX, MG #### [address] [address] Financial Aid Manager: Quirino Valladares MD MCV (RBC) [Entitic vol] 87.0 fL Normal 82.6-102.9 [facility] Comment on above: Performed By: #### C DP, BMPX, MG #### [address] [address] Financial Aid Manager: Quirino Valladares MD Monocytes (Bld) [#/Vol] 0.47 10*3/uL Normal 0.10-1.40 [facility] Comment on above: Performed By: #### C DP, BMPX, MG #### [address] [address] Financial Aid Manager: Quirino Valladares MD Monocytes/100 WBC (Bld) 11 % High 2-8 [facility] Comment on above: Performed By: #### C DP, BMPX, MG #### [address] [address] Financial Aid Manager: Quirino Valladares MD Neutrophil (Seg) 48 % Normal 34-64 [facility] Comment on above: Performed By: #### C DP, BMPX, MG #### [address] [address] Financial Aid Manager: Quirino Valladares MD NRBC Automated 0.0 per 100 WBC Normal 0.0 [facility] Comment on above: Performed By: #### C DP, BMPX, MG #### [facility] [employer] [facility] [address] [place] [address] Financial Aid Manager: Quirino Valladares MD Platelet mean volume (Bld) [Entitic vol] 11.8 fL Normal 8.1-13.5 [facility] Comment on above: Performed By: #### C DP, BMPX, MG #### [facility] [address] [place] [address] Financial Aid Manager: Quirino Valladares MD Platelets (Bld) [#/Vol] 214 10*3/uL Normal 138-453 [facility] Comment on above: Performed By: #### C DP, BMPX, MG #### [facility] [place] [address] Financial Aid Manager: Quirino Valladares MD RBC (Bld) [#/Vol] 4.60 10*6/uL Normal 3.95-5.11 [facility] Comment on above: Performed By: #### C DP BMPX, MG #### [facility] [address] [place] [address] Financial Aid Manager: Quirino Valladares MD WBC (Bld) [#/Vol] 4.4 10*3/uL Low 4.5-13.5 [facility] Comment on above: Performed By: #### C DP, BMPX, MG #### [facility] [address] [place] [address] Financial Aid Manager: Quirino Valladares MD Lamotrigineon 08-30-2023 Lamotrigine <1.0 Low 3.0-15.0 [facility] Comment on above: Result Comment: Neither a [...] needed. Performed By: #### L MELBA #### [address] [address] Financial Aid Manager: Quirino Valladares MD Magnesiumon 08-30-2023 Magnesium [Mass/Vol] 2.0 mg/dL Normal 1.6-2.6 [facility] Comment on above: Performed By: #### C DP, BMPX, MG #### [employer] [facility] [place] [id number] Financial Aid Manager: Quirino Valladares MD RAD - Ultrasound Reporton RAD - Ultrasound Report [id number] 0#[id number] Normal [facility] Physician Referralon 023 Physician Referral [id number] 9D#1.00TIFF Normal [facility] CBC W MANUAL DIFFon 01-05-20 23 ANISOCYTOSIS SLIGHT Normal [facility] Comment on above: Performed By: #### C OSORIO #### [facility] [address] [place] [address] Dr. Juan Jose Banda ATYPICAL LYMPH # 0.36 103/ul Normal [facility] Comment on above: Performed By: #### C OSORIO #### [facility] [address] [place] [address] Dr. Juan Jose Banda ATYPICAL LYMPH % 4 % Normal [facility] Comment on above: Performed By: #### C BCJESSICA #### [facility] [address] [place] [address] Dr. Juan Jose Banda BAND # 0.0 103/ul Normal 0.0-0.3 [facility] Comment on above: Performed By: #### C BCJESSICA #### [facility] [address] [place] [address] Dr. Juan Jose Banda BAND % 0 % Normal 0-5 [facility] Comment on above: Performed By: #### C BCJESSICA #### [facility] [address] [place] [address] Dr. Juan Jose Banda BASOM # 0.09 103/ul Normal 0.00-0.10 [facility] Comment on above: Performed By: #### C BCJESSICA #### [facility] [address] [place] [address] Dr. Juan Jose Banda BASOM % 1.0 % Normal 0.2-2.0 [facility] Comment on above: Performed By: #### C OSORIO #### [facility] [address] [address] [address] Juan Jose Banda BLAST # Normal [facility] Comment on above: Performed By: #### C BCMAN #### [facility] [address] [place] [address] Dr. Juan Jose Banda BLAST % Normal [facility] Comment on above: Performed By: #### C BCMAN #### [facility] [address] [place] [address] Dr. Juan Jose Banda CORRECTED WBC Normal 4.0-11.0 [facility] Comment on above: Performed By: #### C BCMAN #### [facility] [address] [place] [address] Dr. Juan Jose Banda EOS # 0.18 103/ul Normal 0.00-0.70 [facility] Comment on above: Performed By: #### C BCMAN #### [facility] [address] [place] [address] Dr. Juan Jose Banda EOS% 2.0 % Normal 0.9-7.0 [facility] Comment on above: Performed By: #### C BCMAN #### [facility] [address] [place] [address] Dr. Juan Jose Banda HCT 34.0 % Critically low 36.0-48.0 [facility] Comment on above: Performed By: #### C BCMAN #### [facility] [address] [place] [address] Dr. Juan Jose Banda HGB 11.8 g/dl Critically low 12.0-16.0 [facility] Comment on above: Performed By: #### C BCMAN #### [facility] [address] [place] [address] Dr. Juan Jose Banda LYMPHM # 1.55 103/ul Normal 1.20-3.80 [facility] Comment on above: Performed By: #### C BCMAN #### [facility] [address] [place] [address] Dr. Juan Jose Banda LYMPHM% 17.0 % Critically low 20.5-60.0 [facility] Comment on above: Performed By: #### C OSORIO #### [facility] [address] [address] [address] Juan Jose Banda MCH 29.0 pg Normal 26.7-34.0 [facility] Comment on above: Performed By: #### C OSORIO #### [facility] [address] [place] [address] Dr. Juan Jose Banda MCHC 34.7 g/dl Normal 29.9-35.2 [facility] Comment on above: Performed By: #### C BCJESSICA #### [facility] [address] [place] [address] Dr. Juan Jose Banda MCV 83.5 fL Normal 81.0-99.0 [facility] Comment on above: Performed By: #### C OSORIO #### [facility] [address] [place] [address] Dr. Juan Jose Banda METAMYELOCYTE # Normal [facility] Comment on above: Performed By: #### C OSORIO #### [facility] Laboratory [address] [place] [address] Dr. Juan Jose Banda METAMYELOCYTE % Normal [facility] Comment on above: Performed By: #### C OSORIO #### [facility] Laboratory [address] [place] [address] Dr. Juan Jose Banda MICROCYTOSIS SLIGHT Normal [facility] Comment on above: Performed By: #### C OSORIO #### [facility] Laboratory [address] [place] [address] Dr. Juan Jose Banda MONOM# 1.00 103/ul Critically high 0.30-0.80 [facility] Comment on above: Performed By: #### C OSORIO #### [facility] Laboratory [address] [place] [address] Dr. Juan Jose Banda MONOM% 11.0 % Normal 1.7-12.0 [facility] Comment on above: Performed By: #### C OSORIO #### [facility] [address] [place] [address] Dr. Juan Jose Banda MPV 11.2 fL Normal 9.5-13.5 [facility] Comment on above: Performed By: #### C BCMAN #### [facility] Laboratory [address] [address] [address] Juan Jose Banda MYELOCYTE # Normal [facility] Comment on above: Performed By: #### C BCMAN #### [facility] [address] [address] [address] Juan Jose Banda MYELOCYTE % Normal [facility] Comment on above: Performed By: #### C BCMAN #### [facility] [address] [address] [address] Juan Jose Bnada NRBC Normal [facility] Comment on above: Performed By: #### C BCJESSICA #### [facility] [address] [address] [address] Juan Jose Banda PLT 180 103/ul Normal 150-450 [facility] Comment on above: Performed By: #### C OSORIO #### [facility] [address] [place] [address] Dr. Juan Jose Banda RBC 4.07 106/ul Critically low 4.20-5.40 [facility] Comment on above: Performed By: #### C BCJESSICA #### [facility] [address] [place] [address] Dr. Juan Jose Banda RDW 11.9 % Normal 11.0-15.0 [facility] Comment on above: Performed By: #### C BCJESSICA #### [facility] [address] [address] [address] Juan Jose Banda SEG # 5.92 103/ul Normal 1.40-6.50 [facility] Comment on above: Performed By: #### C BCMAN #### [facility] [address] [place] [address] Dr. Juan Jose Banda SEG % 65.0 % Normal 43.0-75.0 [facility] Comment on above: Performed By: #### C BCMAN #### [facility] [address] [address] [address] Juan Jose Banda WBC 9.1 103/ul Normal 4.0-11.0 [facility] Comment on above: Performed By: #### C BCMAN #### [facility] [address] [place] [address] Dr. Juan Jose Banda DRUG SCREEN RAPID (URINE)on 01-04-2023 AMP Negative Normal NEGATIVE [facility] Comment on above: Performed By: #### U RCX #### [facility] [address] [address] [address] Juan Jose Banda BAR Negative Normal NEGATIVE [facility] Comment on above: Performed By: #### U RCX #### [facility] [address] [address] [address] Juan Jose Banda BUP Negative Normal NEGATIVE [facility] Comment on above: Performed By: #### U RCX #### [facility] [address] [place] [address] Dr. Juan Jose Banda BZO Negative Normal NEGATIVE [facility] Comment on above: Performed By: #### U RCX #### [facility] [address] [place] [address] Dr. Juan Jose Banda LUCIO Negative Normal NEGATIVE [facility] Comment on above: Performed By: #### U RCX #### [facility] [address] [address] [address] Juan Jose Banda CUT-OFFS SEE BELOW Normal [facility] Comment on above: Result Comment: AMP [...] ng/mL Performed By: #### U RCX #### [facility] [address] [place] [address] Dr. Juan Jose Banda DRUG CUT HEADER DRUG CLASS TEST SYSTEM CUT-OFF CONCENTRATIONS ARE FOLLOWS: Normal [facility] Comment on above: Performed By: #### U RCX #### [facility] [address] [address] [address] Juan Jose Banda mAMP Negative Normal NEGATIVE [facility] Comment on above: Performed By: #### U RCX #### [facility] [address] [address] [address] Juan Jose Banda MTD Negative Normal NEGATIVE [facility] Comment on above: Performed By: #### U RCX #### [facility] [address] [address] [address] Juan Jose Banda OPI Negative Normal NEGATIVE [facility] Comment on above: Performed By: #### U RCX #### [facility] [address] [address] [address] Juan Jose Banda OXY Negative Normal NEGATIVE [facility] Comment on above: Performed By: #### U RCX #### [facility] [address] [place] [address] Dr. Juan Jose Banda PCP Negative Normal NEGATIVE [facility] Comment on above: Performed By: #### U RCX #### [facility] [address] [address] [address] Juan Jose Banda PPX Negative Normal NEGATIVE [facility] Comment on above: Performed By: #### U RCX #### [facility] [address] [place] [address] Dr. Juan Jose Banda TCA Negative Normal NEGATIVE [facility] Comment on above: Performed By: #### U RCX #### [facility] [address] [place] [address] Dr. Juan Jose Banda THC Negative Normal NEGATIVE [facility] Comment on above: Performed By: #### U RCX #### [facility] [address] [place] [address] Dr. Juan Jose Banda TYPE AND SCREENon 01-04-2023 TYPE AND SCREEN Negative Normal [facility] Comment on above: Performed By: #### C BCMAN #### [facility] [address] [place] [address] Dr. Juan Jose Banda US PREG BIOPHY [...] MESA Date: 2022-12-31 17:02 Normal [facility] US PREG UMBILICAL ARTERYon 0 12-31-2022 [...] by: YO MESA Date: 2022-12-31 17:18 Normal [facility] GROUP B STREP CULTUREon 12-07 S. agalactiae Ag Ql (Unsp spec) Culture Observations: NEGATIVE FOR GROUP B STREPTOCOCCUS. Normal The [facility] Comment on above: Performed By: #### G BSCX #### [facility] [address] [place] [address] Dr. Juan Jose Banda PREG BIOPHY W NON STRESSo n 12-24-2022 [...] LUISA ARCHIBALD Date: 2022-12-24 11:23 Normal The [facility] US PREG UMBILICAL ARTERYon 0 12-24-2022 [...] LUISA ARCHIBALD Date: 2022-12-24 11:58 Normal [facility] UA (CLEAN/CATCH) OPERATIONS TRAINER/MICRO I F IND.on 12-22-2022 Bilirubin Ql (U) Negative Normal NEGATIVE [facility] Comment on above: Performed By: #### C BCMAN #### [facility] [address] [place] [address] Dr. Juan Jose Banda Clarity (U) CLEAR Normal CLEAR [facility] Comment on above: Performed By: #### C BCMAN #### [facility] [address] [place] [address] Dr. Juan Jose Banda Color (U) LT. YELLOW Normal YELLOW [facility] Comment on above: Performed By: #### C BCMAN #### [facility] [address] [place] [address] Dr. Juan Jose Banda Glucose Ql (U) Negative Normal NEGATIVE [facility] Comment on above: Performed By: #### C BCMAN #### [facility] [address] [place] [address] Dr. Juan Jose Banda Hemoglobin Ql (U) Negative Normal NEGATIVE [facility] Comment on above: Performed By: #### C BCMAN #### [facility] [address] [place] [address] Dr. Juan Jose Banda Ketones Ql (U) Negative Normal NEGATIVE [facility] Comment on above: Performed By: #### C OSORIO #### [facility] [address] [place] [address] Dr. Juan Jose Banda LEUKOCYTES SMALL Abnormal NEGATIVE [facility] Comment on above: Performed By: #### C OSORIO #### [facility] [address] [place] [address] Dr. Juan Jose Banda Nitrite Ql (U) Negative Normal NEGATIVE [facility] Comment on above: Performed By: #### C OSORIO #### [facility] [address] [place] [address] Dr. Juan Jose Banda pH (U) 6.0 [pH] Normal 5-9 [facility] Comment on above: Performed By: #### C OSORIO #### [facility] [address] [place] [address] Dr. Juan Jose Banda SPEC GRAVITY <=1.005 Abnormal 1.005-<=1.025 [facility] Comment on above: Performed By: #### C OSORIO #### [facility] [address] [place] [address] Dr. Juan Jose Banda UA PROTEIN Negative Normal NEGATIVE/ TRACE [facility] Comment on above: Performed By: #### C OSORIO #### [facility] [address] [place] [address] Dr. Juan Jose Banda UR MICRO IND INDICATED Normal [facility] Comment on above: Performed By: #### C OSORIO #### [facility] [address] [place] [address] Dr. Juan Jose Banda Urobilinogen Qn (U) 0.2 {Tyler'U}/dL Normal 0.2 - 1. 0 [facility] Comment on above: Performed By: #### C OSORIO #### [facility] [address] [place] [address] Dr. Juan Jose Banda URINE MICROSCOPIC ONLYon BACTERIA NONE SEEN Normal NONE SEEN The [facility] Comment on above: Performed By: #### C OSORIO #### [facility] [address] [place] [address] Dr. Juan Jose Banda Bacteria identified Cx Nom (U) NOT INDICATED Normal [facility] Comment on above: Performed By: #### C BCMAN #### [facility] [address] [place] [address] Dr. Juan Jose Banda CAST NONE SEEN Normal NONE SEEN [facility] Comment on above: Performed By: #### C BCMAN #### [facility] [address] [place] [address] Dr. Juan Jose Banda Crystals LM Nom (Urine sed) NONE SEEN Normal NONE SEEN The [facility] Comment on above: Performed By: #### C BCMAN #### [facility] [address] [place] [address] Dr. Juan Jose Banda Epithelial cells LM Ql (Urine sed) MANY Abnormal NONE SEEN /RARE The [facility] Comment on above: Performed By: #### C BCMAN #### [facility] [address] [place] [address] Dr. Juan Jose Banda MUCOUS NONE SEEN Normal NONE SEEN The [facility] Comment on above: Performed By: #### C BCMAN #### [facility] [address] [place] [address] Dr. Juan Jose Banda RBC NONE SEEN Abnormal 0-2 The [facility] Comment on above: Performed By: #### C BCMAN #### [facility] [address] [place] [address] Dr. Juan Jose Banda WBC 2-5 Abnormal NONE SEEN The [facility] Comment on above: Performed By: #### C BCMAN #### [facility] [address] [place] [address] Dr. Juan Jose Banda US PREG BIOPHY [...] by: DALLIN HERNANDEZ Date: 2022-12-22 20:55 Normal [facility] US PREG PLACENTAon US PREG PLACENTA [...] by: DALLIN HERNANDEZ Date: 2022-12-22 20:52 Normal [facility] PREG GROWTHon 12-20-2022 US PREG GROWTH EXAMINATION: [...] by: LUISA ARCHIBALD Date: 2022-12-20 15:23 Normal [facility] CULTURE URINEon 12-17-2022 CULTURE URINE Culture Observations: LIGHT GROWTH OF MIXED GENITAL CHEVY. NO POTENTIAL PATHOGENS SEEN. Normal The [facility] Comment on above: Performed By: #### U RCX #### [facility] Laboratory [address] [place] [address] Dr. Juan Jose Banda UA (CLEAN/CATCH) OPERATIONS TRAINER/MICRO I F IND.on 12-17-2022 Bilirubin Ql (U) Negative Normal NEGATIVE [facility] Comment on above: Performed By: #### H IV12 #### [facility] [address] [place] [address] Dr. Juan Jose Banda Clarity (U) CLEAR Normal CLEAR [facility] Comment on above: Performed By: #### H IV12 #### [facility] [address] [place] [address] Dr. Juan Jose Banda Color (U) LT. YELLOW Normal YELLOW [facility] Comment on above: Performed By: #### H IV12 #### [facility] [address] [place] [address] Dr. Juan Jose Banda Glucose Ql (U) Negative Normal NEGATIVE [facility] Comment on above: Performed By: #### H IV12 #### [facility] [address] [place] [address] Dr. Juan Jose Banda Hemoglobin Ql (U) Negative Normal NEGATIVE [facility] Comment on above: Performed By: #### H IV12 #### [facility] [address] [address] [address] Juan Jose Banda Ketones Ql (U) Negative Normal NEGATIVE [facility] Comment on above: Performed By: #### H IV12 #### [facility] [address] [place] [address] Dr. Juan Jose Banda LEUKOCYTES MODERATE Abnormal NEGATIVE [facility] Comment on above: Performed By: #### H IV12 #### [facility] [address] [place] [address] Dr. Juan Jose Banda Nitrite Ql (U) Negative Normal NEGATIVE [facility] Comment on above: Performed By: #### H IV12 #### [facility] [address] [place] [address] Dr. Juan Jose Banda pH (U) 6.5 [pH] Normal 5-9 [facility] Comment on above: Performed By: #### H IV12 #### [facility] [address] [place] [address] Dr. Juan Jose Banda SPEC GRAVITY <=1.005 Abnormal 1.005-<=1.025 [facility] Comment on above: Performed By: #### H IV12 #### [facility] [address] [place] [address] Dr. Juan Jose Banda UA PROTEIN Negative Normal NEGATIVE/ TRACE [facility] Comment on above: Performed By: #### H IV12 #### [facility] [address] [place] [address] Dr. Juan Jose Banda UR MICRO IND INDICATED Normal [facility] Comment on above: Performed By: #### H IV12 #### [facility] [address] [place] [address] Dr. Juan Jose Banda Urobilinogen Qn (U) 0.2 {Tyler'U}/dL Normal 0.2 - 1. 0 [facility] Comment on above: Performed By: #### H IV12 #### [facility] [address] [place] [address] Dr. Juan Jose Banda URINE MICROSCOPIC ONLYon BACTERIA TRACE Abnormal NONE SEEN [facility] Comment on above: Performed By: #### R PRQ #### [facility] [address] [place] [address] Dr. Juan Jose Banda Bacteria identified Cx Nom (U) INDICATED Normal [facility] Comment on above: Performed By: #### R PRQ #### [facility] [address] [place] [address] Dr. Juan Jose Banda CAST NONE SEEN Normal NONE SEEN [facility] Comment on above: Performed By: #### R PRQ #### [facility] [address] [place] [address] Dr. Juan Jose Banda Crystals LM Nom (Urine sed) NONE SEEN Normal NONE SEEN The [facility] Comment on above: Performed By: #### R PRQ #### [facility] [address] [address] [address] Juan Jose Banda Epithelial cells LM Ql (Urine sed) MODERATE Abnormal NONE SEEN /RARE [facility] Comment on above: Performed By: #### R PRQ #### [facility] [address] [place] [address] Dr. Juan Jose Banda MUCOUS NONE SEEN Normal NONE SEEN The [facility] Comment on above: Performed By: #### R PRQ #### [facility] [address] [place] [address] Dr. Juan Jose Banda RBC 2-5 Abnormal 0-2 The [facility] Comment on above: Performed By: #### R PRQ #### [facility] [address] [place] [address] Dr. Juan Jose Banda WBC 5-10 Abnormal NONE SEEN [facility] Comment on above: Performed By: #### R PRQ #### [facility] [address] [place] [address] Dr. Juan Jose Banda YEAST PRESENT Abnormal NONE SEEN The [facility] Comment on above: Result Comment: rare Performed By: #### R PRQ #### [facility] [address] [place] [address] Dr. Juan Jose Banda CARDIAC GUSTAVO ADMITon 023 CK [Catalytic activity/Vol] 33 U/L Normal 26-192 [facility] Comment on above: Performed By: #### S EDR #### [facility] [address] [place] [address] Dr. Juan Jose Banda CK.MB [Mass/Vol] ng/mL Normal <=3.60 [facility] Comment on above: Performed By: #### S EDR #### [facility] [address] [place] [address] Dr. Juan Jose Banda HSTROP <4.0 Normal 4.0-51.3 The [facility] Comment on above: Result Comment: CUT- OFF POINTS HAVE BEEN ESTABLISHED BASED ON THE FOURTH UNIVERSAL DEFINITIONS OF MYOCARDIAL INFARCTION. THE UPPER REFERENCE LIMIT (URL) OF TROPONIN, DEFINED THE 99TH PERCENTILE OF cTnI DISTRIBUTION IN A REFERENCE POPULATION, HAS BEEN CONFIRMED THE DECISION THRESHOLD FOR MD DIAGNOSIS. Performed By: #### S EDR #### [facility] [address] [place] [address] Dr. Juan Jose Banda OTTO 17 ng/mL Normal 9-82 [facility] Comment on above: Performed By: #### S EDR #### [facility] [address] [place] [address] Dr. Juan Jose Banda CBC AUTO DIFFon 11-04-2022 BASO # 0.0 103/ul Normal 0.0-0.1 [facility] Comment on above: Performed By: #### U RCX #### [facility] [address] [place] [address] Dr. Juan Jose Banda Basophils/100 WBC (Bld) 0.2 % Normal 0.2-2.0 [facility] Comment on above: Performed By: #### U RCX #### [facility] [address] [place] [address] Dr. Juan Jose Banda EO # 0.0 103/ul Normal 0.0-0.7 [facility] Comment on above: Performed By: #### U RCX #### [facility] [address] [place] [address] Dr. Juan Jose Banda Eosinophils/100 WBC (Bld) 0.4 % Critically low 0.9-7.0 [facility] Comment on above: Performed By: #### U RCX #### [facility] [address] [place] [address] Dr. Juan Jose Banda Erythrocyte distribution width (RBC) [Ratio] 12.4 % Normal 11.0-15.0 [facility] Comment on above: Performed By: #### U RCX #### [facility] [address] [place] [address] Dr. Juan Jose Banda Hematocrit (Bld) [Volume fraction] 33.7 % Critically low 36.0-48.0 [facility] Comment on above: Performed By: #### U RCX #### [facility] [address] [place] [address] Dr. Juan Jose Banda Hemoglobin (Bld) [Mass/Vol] 12.1 g/dL Normal 12.0-16.0 [facility] Comment on above: Performed By: #### U RCX #### [facility] [address] [place] [address] Dr. Juan Jose Banda IG # 0.09 10e3/ul Critically high 0.00-0.03 [facility] Comment on above: Performed By: #### U RCX #### [facility] [address] [address] [address] Juan Jose Banda IG % 1.1 % Critically high 0.0-0.5 [facility] Comment on above: Performed By: #### U RCX #### [facility] [address] [place] [address] Dr. Juan Jose Banda LYMPH # 1.5 103/ul Normal 1.2-3.8 [facility] Comment on above: Performed By: #### U RCX #### [facility] [address] [place] [address] Dr. Juan Jose Banda Lymphocytes/100 WBC (Bld) 17.1 % Critically low 20.5-60.0 [facility] Comment on above: Performed By: #### U RCX #### [facility] [address] [place] [address] Dr. Juan Jose Banda MANUAL DIFF REQ NO Normal [facility] Comment on above: Performed By: #### U RCX #### [facility] [address] [place] [address] Dr. Juan Jose Banda MCH (RBC) [Entitic mass] 30.5 pg Normal 26.7-34.0 [facility] Comment on above: Performed By: #### U RCX #### [facility] [address] [place] [address] Dr. Juan Jose Banda MCHC (RBC) [Mass/Vol] 35.9 g/dL Critically high 29.9-35.2 [facility] Comment on above: Performed By: #### U RCX #### [facility] [address] [place] [address] Dr. Juan Jose Banda MCV (RBC) [Entitic vol] 84.9 fL Normal 81.0-99.0 [facility] Comment on above: Performed By: #### U RCX #### [facility] [address] [place] [address] Dr. Juan Jose Banda MONO # 0.8 103/ul Normal 0.3-0.8 [facility] Comment on above: Performed By: #### U RCX #### [facility] [address] [place] [address] Dr. Juan Jose Banda Monocytes/100 WBC (Bld) 9.8 % Normal 1.7-12.0 [facility] Comment on above: Performed By: #### U RCX #### [facility] [address] [place] [address] Dr. Juan Jose Banda NEUT # 6.1 103/ul Normal 1.4-6.5 [facility] Comment on above: Performed By: #### U RCX #### [facility] [address] [place] [address] Dr. Juan Jose Banda Neutrophils/100 WBC (Bld) 71.4 % Normal 43.0-75.0 [facility] Comment on above: Performed By: #### U RCX #### [facility] [address] [place] [address] Dr. Juan Jose Banda Platelet mean volume (Bld) [Entitic vol] 11.2 fL Normal 9.5-13.5 [facility] Comment on above: Performed By: #### U RCX #### [facility] [address] [place] [address] Dr. Juan Jose Banda PLT 196 103/ul Normal 150-450 [facility] Comment on above: Performed By: #### U RCX #### [facility] [address] [place] [address] Dr. Juan Jose Banda RBC 3.97 106/ul Critically low 4.20-5.40 [facility] Comment on above: Performed By: #### U RCX #### [facility] [address] [place] [address] Dr. Juan Jose Banda WBC 8.5 103/ul Normal 4.0-11.0 [facility] Comment on above: Performed By: #### U RCX #### [facility] [address] [place] [address] Dr. Juan Jose Banda LIVER PROFILEon 11-04-2022 Albumin [Mass/Vol] 3.0 g/dL Critically low 3.4-5.0 Th e [facility] Comment on above: Performed By: #### S EDR #### [facility] [address] [place] [address] Dr. Juan Jose Banda Albumin/Globulin [Mass ratio] 0.9 {ratio} Normal [facility] Comment on above: Performed By: #### S EDR #### [facility] [address] [place] [address] Dr. Juan Jose Banda ALP [Catalytic activity/Vol] 76 U/L Normal 46-116 [facility] Comment on above: Performed By: #### S EDR #### [facility] [address] [place] [address] Dr. Juan Jose Banda ALT [Catalytic activity/Vol] 13 U/L Critically low 14-59 [facility] Comment on above: Performed By: #### S EDR #### [facility] [address] [place] [address] Dr. Juan Jose Banda AST [Catalytic activity/Vol] 14 U/L Critically low 15-37 [facility] Comment on above: Performed By: #### S EDR #### [facility] [address] [place] [address] Dr. Juan Jose Banda BILI, CONJUGATED 0.1 mg/dL Normal 0.0-0.2 [facility] Comment on above: Performed By: #### S EDR #### [facility] [address] [place] [address] Dr. Juan Jose Banda Bilirubin [Mass/Vol] 0.3 mg/dL Normal 0.2-1.0 [facility] Comment on above: Performed By: #### S EDR #### [facility] [address] [place] [address] Dr. Juan Jose Banda Globulin (S) [Mass/Vol] 3.4 g/dL Normal [facility] Comment on above: Performed By: #### S EDR #### [facility] [address] [place], [place] [address] Dr. Juan Jose Banda Protein [Mass/Vol] 6.4 g/dL Normal 6.4-8.2 [facility] Comment on above: Performed By: #### S EDR #### [facility] [address] [id number] [address] Juan Jose Banda BOX TEST SENT OUTon 10-01-19 23 SENT TO REF LAB 10/01/2022 Normal [facility] Comment on above: Performed By: #### S EDR #### [facility] [address] [place], [place] [id number] Dr. Juan Jose Banda US PREG ANATOMY [...] LUISA ARCHIBALD Date: 2022-09-29 16:29 Normal The [facility] HEP B SURFACE ANTIGEN SCREEN on 08-26-2022 HBsAg Screen Negative Normal Negative The [facility] Comment on above: Performed By: #### S EDR #### [facility] [address] [place] [address] Dr. Juan Jose Banda HEPATITIS C VIRUS AB W/ REFL EX QUANTon 08-26-2022 HCV AB <0.1 Normal 0.0-0.9 [facility] Comment on above: Performed By: #### R PRQ #### [facility] [address] [place] [address] Dr. Juan Jose Banda Interpretation: Comment Normal [facility] Comment on above: Result Comment: Nega tive Not infected with HCV, unless recent infection is suspected or other evidence exists to indicate HCV infection. Performed By: #### R PRQ #### [facility] [address] [place] [address] Dr. Juan Jose Banda HIV 1 AND 2 WITH REFLEXon HIV Screen 4th Generation wRfx Non-Reactive Normal Non Reactive The [facility] Comment on above: Result Comment: HIV Negative HIV-1/HIV-2 antibodies and HIV-1 p24 antigen were NOT detected. There is no laboratory evidence of HIV infection. Performed By: #### H IV12 #### [facility] [address] [place] [address] Dr. Juan Jose Banda RPR QUANTon 08-26-2022 Rapid Plasma Reagin, Quant Non-Reactive Normal NonRea<1:1 The [facility] Comment on above: Result Comment: Plea se Note: This test does not meet current guidelines for screening and diagnosis of syphilis. This test is intended for following treatment response in patients being treated for syphilis infection. To screen for syphilis infection, a reflex cascade that includes both RPR and a treponema-specific assay should be utilized, such as Treponema pallidum (Syphilis) Screening [facility] (180205) or Rapid Plasma Reagin (RPR) Test With Reflex to Quantitative RPR and Confirmatory Treponema pallidum Antibodies (891903). Performed By: #### R PRQ #### [facility] [address] [place] [address] Dr. Juan Jose Banda RUBELLA AB IGGon 08-26-2022 Rubella Antibodies, IgG 2.56 index Normal Immune >0.99 [facility] Comment on above: Result Comment: Non- immune <0.90 Equivocal 0.90 - 0.99 Immune >0.99 Performed By: #### S EDR #### [facility] [address] [place] [address] Dr. Juan Jose Banda CULTURE URINEon 08-25-2022 CULTURE URINE Culture Observations: LIGHT GROWTH OF MIXED GENITAL CHEVY. NO POTENTIAL PATHOGENS SEEN. Normal The [facility] Comment on above: Performed By: #### U RCX #### [facility] [address] [place] [address] Dr. Juan Jose Banda CBC AUTO DIFFon 08-24-2022 BASO # 0.0 103/ul Normal 0.0-0.1 [facility] Comment on above: Performed By: #### S EDR #### [facility] [address] [place] [address] Dr. Juan Jose Banda Basophils/100 WBC (Bld) 0.4 % Normal 0.2-2.0 [facility] Comment on above: Performed By: #### S EDR #### [facility] [address] [place] [address] Dr. Juan Jose Banda EO # 0.1 103/ul Normal 0.0-0.7 The [facility] Comment on above: Performed By: #### S EDR #### [facility] [address] [place] [address] Dr. Juan Jose Banda Eosinophils/100 WBC (Bld) 1.4 % Normal 0.9-7.0 The [facility] Comment on above: Performed By: #### S EDR #### [facility] [address] [place] [address] Dr. Juan Jose Banda Erythrocyte distribution width (RBC) [Ratio] 12.2 % Normal 11.0-15.0 [facility] Comment on above: Performed By: #### S EDR #### [facility] [address] [address] [address] Juan Jose Banda Hematocrit (Bld) [Volume fraction] 35.3 % Critically low 36.0-48.0 [facility] Comment on above: Performed By: #### S EDR #### [facility] [address] [address] [address] Juan Jose Banda Hemoglobin (Bld) [Mass/Vol] 12.7 g/dL Normal 12.0-16.0 [facility] Comment on above: Performed By: #### S EDR #### [facility] [address] [place] [address] Dr. Juan Jose Banda IG # 0.03 10e3/ul Normal 0.00-0.03 [facility] Comment on above: Performed By: #### S EDR #### [facility] [address] [place] [address] Dr. Juan Jose Banda IG % 0.4 % Normal 0.0-0.5 [facility] Comment on above: Performed By: #### S EDR #### [facility] [address] [place] [address] Dr. Juan Jose Banda LYMPH # 1.4 103/ul Normal 1.2-3.8 [facility] Comment on above: Performed By: #### S EDR #### [facility] [address] [place] [address] Dr. Juan Jose Banda Lymphocytes/100 WBC (Bld) 19.7 % Critically low 20.5-60.0 [facility] Comment on above: Performed By: #### S EDR #### [facility] [address] [address] [address] Juan Jose Banda MANUAL DIFF REQ NO Normal [facility] Comment on above: Performed By: #### S EDR #### [facility] [address] [place] [address] Dr. Juan Jose Banda MCH (RBC) [Entitic mass] 29.8 pg Normal 26.7-34.0 [facility] Comment on above: Performed By: #### S EDR #### [facility] [address] [address] [address] Juan Jose Banda MCHC (RBC) [Mass/Vol] 36.0 g/dL Critically high 29.9-35.2 [facility] Comment on above: Performed By: #### S EDR #### [facility] [address] [address] [address] Juan Jose Banda MCV (RBC) [Entitic vol] 82.9 fL Normal 81.0-99.0 [facility] Comment on above: Performed By: #### S EDR #### [facility] [address] [place] [address] Dr. Juan Jose Banda MONO # 0.6 103/ul Normal 0.3-0.8 [facility] Comment on above: Performed By: #### S EDR #### [facility] [address] [place] [address] Dr. Juan Jose Banda Monocytes/100 WBC (Bld) 8.3 % Normal 1.7-12.0 [facility] Comment on above: Performed By: #### S EDR #### [facility] [address] [place] [address] Dr. Juan Jose Banda NEUT # 5.0 103/ul Normal 1.4-6.5 [facility] Comment on above: Performed By: #### S EDR #### [facility] [address] [place] [address] Dr. Juan Jose Banda Neutrophils/100 WBC (Bld) 69.8 % Normal 43.0-75.0 [facility] Comment on above: Performed By: #### S EDR #### [facility] [address] [place] [address] Dr. Juan Jose Banda Platelet mean volume (Bld) [Entitic vol] 11.8 fL Normal 9.5-13.5 [facility] Comment on above: Performed By: #### S EDR #### [facility] [address] [place] [address] Dr. Juan Jose Banda PLT 183 103/ul Normal 150-450 [facility] Comment on above: Performed By: #### S EDR #### [facility] [address] [address] [address] Juan Jose Banda RBC 4.26 106/ul Normal 4.20-5.40 [facility] Comment on above: Performed By: #### S EDR #### [facility] [address] [place] [address] Dr. Juan Jose Banda WBC 7.1 103/ul Normal 4.0-11.0 [facility] Comment on above: Performed By: #### S EDR #### [facility] [address] [place] [address] Dr. Juan Jose Banda CULTURE URINEon 08-24-2022 CULTURE URINE Culture Observations: MODERATE GROWTH OF MIXED GENITAL CHEVY. NO POTENTIAL PATHOGENS SEEN. Normal [facility] Comment on above: Performed By: #### C BCMAN #### [facility] [address] [place] [address] Dr. Juan Jose Banda GLYCOHEMOGLOBIN A1Con 2022 ADA RECOMMENDATION SEE BELOW Normal [facility] [place] Comment on above: Result Comment: ADA RECOMMENDED LIMIT 4.0 - 6.0 ADA THERAPEUTIC TARGET < 7.0 ACTION SUGGESTED > 7.0 Performed By: #### H IV12 #### [facility] [address] [place] [address] Dr. Juan Jose Banda Glucose [Mass/Vol] 85 mg/dL Normal [facility] [place] Comment on above: Performed By: #### H IV12 #### [facility] [address] [place] [address] Dr. Juan Jose Banda HbA1c (Bld) [Mass fraction] 4.6 % Normal 4.5-6.2 [facility] Comment on above: Performed By: #### H IV12 #### [facility] [address] [place] [address] Dr. Juan Jose Banda TYPE AND SCREENon 08-24-2022 TYPE AND SCREEN Negative Normal [facility] Comment on above: Performed By: #### T NS #### [facility] [address] [place] [address] Dr. Juan Jose Banda Covid-19 PCR (CVDTBH)on 06-08 SARS-CoV-2 (COVID-19) RNA ISAAC+probe Ql (Unsp spec) Not detected Normal NOT DETECTED [facility] Comment on above: Result Comment: When [...] for this test is supported by the Traffic Incident Management Manager of Health and Human Service's declaration that [...] used). Performed By: #### R PRQ #### [facility] [address] [place] [address] Dr. Juan Jose Banda INFLUENZA A AND B AGon 06-25 INFLUANEGH SEE BELOW Normal [facility] Comment on above: Result Comment: Nega tive for Flu A protein angiten. Infection due to Flu A cannot be ruled out. Flu A angiten in the sample may be below the detection limit of the test. Performed By: #### S EDR #### [facility] [address] [place] [address] Dr. Juan Jose Banda INFLUBNEG SEE BELOW Normal [facility] Comment on above: Result Comment: Nega tive for Flu B protein antigen. Infection due to Flu B cannot be ruled out. Flu B antigen in the sample may be below the detection limit of the test. Performed By: #### S EDR #### [facility] [address] [place] [address] Dr. Juan Jose Banda INFLUENZA A AG Negative Normal NEGATIVE SEE COMMENT The [facility] Comment on above: Performed By: #### S EDR #### [facility] [address] [place] [address] Dr. Juan Jose Banda INFLUENZA B AG Negative Normal NEGATIVE SEE COMMENT The [facility] Comment on above: Performed By: #### S EDR #### [facility] [address] [place] [address] Dr. Juan Jose Banda INTERNAL CONTROLS Within Normal Limits Normal Within Normal Limits The [facility] Comment on above: Performed By: #### S EDR #### [facility] [address] [place] [address] Dr. Juan Jose Banda CBC AUTO DIFFon 06-20-2022 BASO # 0.0 103/ul Normal 0.0-0.1 [facility] Comment on above: Performed By: #### S EDR #### [facility] [address] [place] [address] Dr. Juan Jose Banda Basophils/100 WBC (Bld) 0.3 % Normal 0.2-2.0 [facility] Comment on above: Performed By: #### S EDR #### [facility] [address] [place] [address] Dr. Juan Jose Banda EO # 0.1 103/ul Normal 0.0-0.7 [facility] Comment on above: Performed By: #### S EDR #### [facility] [address] [place] [address] Dr. Juan Jose Banda Eosinophils/100 WBC (Bld) 1.3 % Normal 0.9-7.0 [facility] Comment on above: Performed By: #### S EDR #### [facility] [address] [place] [address] Dr. Juan Jose Banda Erythrocyte distribution width (RBC) [Ratio] 11.4 % Normal 11.0-15.0 [facility] Comment on above: Performed By: #### S EDR #### [facility] [address] [place] [address] Dr. Juan Jose Banda Hematocrit (Bld) [Volume fraction] 35.6 % Critically low 36.0-48.0 [facility] Comment on above: Performed By: #### S EDR #### [facility] [address] [address] [address] Juan Jose Banda Hemoglobin (Bld) [Mass/Vol] 12.9 g/dL Normal 12.0-16.0 [facility] Comment on above: Performed By: #### S EDR #### [facility] [address] [address] [address] Juan Jose Banda IG # 0.04 10e3/ul Critically high 0.00-0.03 [facility] Comment on above: Performed By: #### S EDR #### [facility] [address] [place] [address] Dr. Juan Jose Banda IG % 0.5 % Normal 0.0-0.5 [facility] Comment on above: Performed By: #### S EDR #### [facility] [address] [place] [address] Dr. Juan Jose Banda LYMPH # 2.2 103/ul Normal 1.2-3.8 [facility] Comment on above: Performed By: #### S EDR #### [facility] [address] [place] [address] Dr. Juan Jose Banda Lymphocytes/100 WBC (Bld) 25.8 % Normal 20.5-60.0 [facility] Comment on above: Performed By: #### S EDR #### [facility] [address] [place] [address] Dr. Juan Jose Banda MANUAL DIFF REQ NO Normal [facility] Comment on above: Performed By: #### S EDR #### [facility] [address] [address] [address] Juan Jose Banda MCH (RBC) [Entitic mass] 29.9 pg Normal 26.7-34.0 [facility] Comment on above: Performed By: #### S EDR #### [facility] [address] [place] [address] Dr. Juan Jose Banda MCHC (RBC) [Mass/Vol] 36.2 g/dL Critically high 29.9-35.2 [facility] Comment on above: Performed By: #### S EDR #### [facility] [address] [place], [place] [id number] Dr. Juan Jose Banda MCV (RBC) [Entitic vol] 82.4 fL Normal 81.0-99.0 [facility] Comment on above: Performed By: #### S EDR #### [facility] [address] [place] [address] Dr. Juan Jose Banda MONO # 0.9 103/ul Critically high 0.3-0.8 [facility] Comment on above: Performed By: #### S EDR #### [facility] [address] [place] [address] Dr. Juan Jose Banda Monocytes/100 WBC (Bld) 9.9 % Normal 1.7-12.0 [facility] Comment on above: Performed By: #### S EDR #### [facility] [address] [place] [address] Dr. Juan Jose Banda NEUT # 5.4 103/ul Normal 1.4-6.5 [facility] Comment on above: Performed By: #### S EDR #### [facility] [address] [place] [address] Dr. Juan Jose Banda Neutrophils/100 WBC (Bld) 62.2 % Normal 43.0-75.0 [facility] Comment on above: Performed By: #### S EDR #### [facility] [address] [place] [address] Dr. Juan Jose Banda Platelet mean volume (Bld) [Entitic vol] 11.7 fL Normal 9.5-13.5 [facility] Comment on above: Performed By: #### S EDR #### [facility] [address] [place] [address] Dr. Juan Jose Banda PLT 205 103/ul Normal 150-450 [facility] Comment on above: Performed By: #### S EDR #### [facility] [address] [place] [address] Dr. Juan Jose Banda RBC 4.32 106/ul Normal 4.20-5.40 [facility] Comment on above: Performed By: #### S EDR #### [facility] [address] [place] [address] Dr. Juan Jose Banda WBC 8.6 103/ul Normal 4.0-11.0 [facility] Comment on above: Performed By: #### S EDR #### [facility] [address] [place] [address] Dr. Juan Jose Banda ER URINE PROFILEon 2 Bilirubin Ql (U) Negative Normal NEGATIVE [facility] Comment on above: Performed By: #### H IV12 #### [facility] [address] [address] [address] Juan Jose Banda Clarity (U) CLEAR Normal CLEAR [facility] Comment on above: Performed By: #### H IV12 #### [facility] [address] [place] [address] Dr. Juan Jose Banda Color (U) LT. YELLOW Normal YELLOW [facility] Comment on above: Performed By: #### H IV12 #### [facility] [address] [place] [address] Dr. Juan Jose TAVAREZ A micrscopic examination will be performed if indicated. Normal [facility] Comment on above: Performed By: #### H IV12 #### [facility] [address] [place] [address] Dr. Juan Jose Banda Glucose Ql (U) Negative Normal NEGATIVE [facility] [place] [facility] Comment on above: Performed By: #### H IV12 #### [facility] [address] [place] [address] Dr. Juan Jose Banda Hemoglobin Ql (U) Negative Normal NEGATIVE [facility] Comment on above: Performed By: #### H IV12 #### [facility] [address] [place] [address] Dr. Juan Jose Banda Ketones Ql (U) Negative Normal NEGATIVE [facility] Comment on above: Performed By: #### H IV12 #### [facility] [address] [place] [address] Dr. Juan Jose Banda LEUKOCYTES SMALL Abnormal NEGATIVE [facility] Comment on above: Performed By: #### H IV12 #### [facility] [address] [place] [address] Dr. Juan Jose Banda Nitrite Ql (U) Negative Normal NEGATIVE [facility] Comment on above: Performed By: #### H IV12 #### [facility] [address] [place] [address] Dr. Juan Jose Banda pH (U) 6.0 [pH] Normal 5-9 [facility] Comment on above: Performed By: #### H IV12 #### [facility] [address] [place] [address] Dr. Juan Jose Banda SPEC GRAVITY <=1.005 Abnormal 1.005-<=1.025 [facility] Comment on above: Performed By: #### H IV12 #### [facility] [address] [place] [address] Dr. Juan Jose Banda UA PROTEIN Negative Normal NEGATIVE/ TRACE [facility] Comment on above: Performed By: #### H IV12 #### [facility] [address] [place] [address] Dr. Juan Jose Banda UR MICRO IND INDICATED Normal [facility] Comment on above: Performed By: #### H IV12 #### [facility] [address] [place] [address] Dr. Juan Jose Banda Urobilinogen Qn (U) 0.2 {Tyler'U}/dL Normal 0.2 - 1. 0 [facility] Comment on above: Performed By: #### H IV12 #### [facility] [address] [place] [address] Dr. Juan Jose Banda PREG QUANT HCGon 06-20-2022 HCG QUANT 58626 mIU/mL Normal [facility] Comment on above: Performed By: #### R PRQ #### [facility] [address] [place] [address] Dr. Juan Jose Banda HCG RANGE SEE BELOW Normal [facility] Comment on above: Result Comment: 5-50 0.2-1 WEEK 50-500 1-2 WEEKS 100-5,000 2-3 WEEKS 500-10,000 3-4 WEEKS 1,000-50,000 4-5 WEEKS 10,000-100,000 5-6 WEEKS 15,000-200,000 6-8 WEEKS 10,000-100,000 2-3 MONTHS Performed By: #### R PRQ #### [facility] [address] [address] [address] Juan Jose Banda URon 06-20-2022 , QUAL Positive Abnormal NEGATIVE [facility] Comment on above: Performed By: #### H IV12 #### [facility] [address] [address] [address] Juan Jose Banda PROF CHEM 8 (BAS METB)on Anion gap [Moles/Vol] 9.4 mmol/L Normal [facility] Comment on above: Performed By: #### R PRQ #### [facility] [address] [address] [address] Juan Jose Banda Calcium [Mass/Vol] 8.8 mg/dL Normal 8.5-10.1 [facility] Comment on above: Performed By: #### R PRQ #### [facility] [address] [address] [address] Juan Jose Banda Chloride [Moles/Vol] 102 mmol/L Normal 98-107 [facility] Comment on above: Performed By: #### R PRQ #### [facility] [address] [address] [address] Juan Jose Banda CO2 [Moles/Vol] 28.0 mmol/L Normal 21.0-32.0 [facility] Comment on above: Performed By: #### R PRQ #### [facility] [address] [address] [address] Juan Jose Banda Creatinine [Mass/Vol] 0.66 mg/dL Normal 0.55-1.02 [facility] Comment on above: Performed By: #### R PRQ #### [facility] [address] [address] [address] Juan Jose Banda EGFR-AF SOMALI >60 Normal >=60 [facility] Comment on above: Performed By: #### R PRQ #### [facility] [address] [place] [address] Dr. Juan Jose Banda EGFR-NON AF SOMALI >60 Normal >=60 [facility] Comment on above: Performed By: #### R PRQ #### [facility] [address] [place] [address] Dr. Juan Jose Banda Glucose [Mass/Vol] 92 mg/dL Normal 74-106 [facility] Comment on above: Performed By: #### R PRQ #### [facility] [address] [address] [address] Juan Jose Banda Potassium [Moles/Vol] 3.4 mmol/L Critically low 3.5-5.1 [facility] Comment on above: Performed By: #### R PRQ #### [facility] [address] [place] [address] Dr. Juan Jose Banda Sodium [Moles/Vol] 136 mmol/L Normal 136-145 [facility] Comment on above: Performed By: #### R PRQ #### [facility] [address] [place] [address] Dr. Juan Jose Banda Urea nitrogen [Mass/Vol] 9.0 mg/dL Normal 6.4-19.3 [facility] Comment on above: Performed By: #### R PRQ #### [facility] [address] [place] [address] Dr. Juan Jose Banda Urea nitrogen/Creatinine [Mass ratio] 13.6 mg/mg Normal The [facility] Comment on above: Performed By: #### R PRQ #### [facility] [address] [place] [address] Dr. Juan Jose Banda URINE MICROSCOPIC ONLYon BACTERIA TRACE Abnormal NONE SEEN [facility] Comment on above: Performed By: #### H IV12 #### [facility] [address] [place] [address] Dr. Juan Jose Banda Bacteria identified Cx Nom (U) NOT INDICATED Normal [facility] Comment on above: Performed By: #### H IV12 #### [facility] [address] [place] [address] Dr. Juan Jose Banda CAST NONE SEEN Normal NONE SEEN [facility] Comment on above: Performed By: #### H IV12 #### [facility] [address] [place] [address] Dr. Juan Jose Banda Crystals LM Nom (Urine sed) NONE SEEN Normal NONE SEEN The [facility] Comment on above: Performed By: #### H IV12 #### [facility] [address] [place] [address] Dr. Juan Jose Banda Epithelial cells LM Ql (Urine sed) MANY Abnormal NONE SEEN /RARE The [facility] Comment on above: Performed By: #### H IV12 #### [facility] [address] [place] [address] Dr. Juan Jose Banda MUCOUS TRACE Abnormal NONE SEEN The [facility] Comment on above: Performed By: #### H IV12 #### [facility] [address] [place] [address] Dr. Juan Jose Banda RBC 0-2 Normal 0-2 The [facility] Comment on above: Performed By: #### H IV12 #### [facility] [address] [place] [address] Dr. Juan Jose Banda WBC 0-2 Abnormal NONE SEEN The [facility] Comment on above: Performed By: #### H IV12 #### [facility] [address] [place] [address] Dr. Juan Jose Banda US PREG TVon [...] LUISA ARCHIBALD Date: 2022-06-18 17:27 Normal The [facility] ABO AND RH TYPEon 06-02-2022 ABO and Rh group Nom (Bld) ABO Rh Typing O Rh Positive Normal The [facility] Comment on above: Performed By: #### A BORH #### [facility] [address] [place] [address] Dr. Juan Jose Banda AMYLASEon 06-02-2022 Amylase [Catalytic activity/Vol] 33 U/L Normal 25-115 [facility] Comment on above: Performed By: #### U RCX #### [facility] [address] [place] [address] Dr. Juan Jose Banda CBC AUTO DIFFon 06-02-2022 BASO # 0.0 103/ul Normal 0.0-0.1 The [facility] Comment on above: Performed By: #### C BCMAN #### [facility] [address] [place] [address] Dr. Juan Jose Banda Basophils/100 WBC (Bld) 0.4 % Normal 0.2-2.0 [facility] Comment on above: Performed By: #### C BCMAN #### [facility] [address] [place] [address] Dr. Juan Jose Banda EO # 0.1 103/ul Normal 0.0-0.7 The [facility] Comment on above: Performed By: #### C BCMAN #### [facility] [address] [place] [address] Dr. Juan Jose Banda Eosinophils/100 WBC (Bld) 2.2 % Normal 0.9-7.0 [facility] Comment on above: Performed By: #### C BCMAN #### [facility] [address] [place] [address] Dr. Juan Jose Banda Erythrocyte distribution width (RBC) [Ratio] 11.6 % Normal 11.0-15.0 The [facility] Comment on above: Performed By: #### C BCMAN #### [facility] [address] [place] [address] Dr. Juan Jose Banda Hematocrit (Bld) [Volume fraction] 35.1 % Critically low 36.0-48.0 The [facility] Comment on above: Performed By: #### C BCMAN #### [facility] [address] [place] [address] Dr. Juan Jose Banda Hemoglobin (Bld) [Mass/Vol] 12.5 g/dL Normal 12.0-16.0 [facility] Comment on above: Performed By: #### C BCJESSICA #### [facility] [address] [address] [address] Juan Jose Banda IG # 0.02 10e3/ul Normal 0.00-0.03 [facility] Comment on above: Performed By: #### C OSORIO #### [facility] [address] [address] [address] Juan Jose Banda IG % 0.4 % Normal 0.0-0.5 [facility] Comment on above: Performed By: #### C BCJESSICA #### [facility] [address] [address] [address] Juan Jose Banda LYMPH # 1.8 103/ul Normal 1.2-3.8 [facility] Comment on above: Performed By: #### C OSORIO #### [facility] [address] [place] [address] Dr. Juan Jose Banda Lymphocytes/100 WBC (Bld) 31.8 % Normal 20.5-60.0 [facility] Comment on above: Performed By: #### C OSORIO #### [facility] [address] [address] [address] Juan Jose Banda MANUAL DIFF REQ NO Normal [facility] Comment on above: Performed By: #### C OSORIO #### [facility] [address] [address] [address] Juan Jose Banda MCH (RBC) [Entitic mass] 29.9 pg Normal 26.7-34.0 [facility] Comment on above: Performed By: #### C BCMAN #### [facility] [address] [address] [address] Juan Jose Banda MCHC (RBC) [Mass/Vol] 35.6 g/dL Critically high 29.9-35.2 [facility] Comment on above: Performed By: #### C BCJESSICA #### [facility] [address] [address] [address] Juan Jose Banda MCV (RBC) [Entitic vol] 84.0 fL Normal 81.0-99.0 [facility] Comment on above: Performed By: #### Seble AC #### [facility] [address] [address] [address] Juan Jose Banda MONO # 0.6 103/ul Normal 0.3-0.8 [facility] Comment on above: Performed By: #### C OSORIO #### [facility] [address] [address] [address] Juan Jose Banda Monocytes/100 WBC (Bld) 10.4 % Normal 1.7-12.0 [facility] Comment on above: Performed By: #### C OSORIO #### [facility] [address] [address] [address] Juan Jose Banda NEUT # 3.1 103/ul Normal 1.4-6.5 [facility] Comment on above: Performed By: #### Seble AC #### [facility] [address] [place] [address] Dr. Juan Jose Banda Neutrophils/100 WBC (Bld) 54.8 % Normal 43.0-75.0 [facility] Comment on above: Performed By: #### Seble AC #### [facility] [address] [address] [address] Juan Jose Banda Platelet mean volume (Bld) [Entitic vol] 11.8 fL Normal 9.5-13.5 [facility] Comment on above: Performed By: #### Seble AC #### [facility] [address] [address] [address] Juan Jose Banda PLT 185 103/ul Normal 150-450 [facility] Comment on above: Performed By: #### C OSORIO #### [facility] [address] [address] [address] Juan Jose Banda RBC 4.18 106/ul Critically low 4.20-5.40 [facility] Comment on above: Performed By: #### C OSORIO #### [facility] [address] [address] [address] Juan Jose Banda WBC 5.6 103/ul Normal 4.0-11.0 [facility] Comment on above: Performed By: #### Seble AC #### [facility] [address] [address] [address] Juan Jose Banda LIPASEon 06-02-2022 Lipase [Catalytic activity/Vol] 69.0 U/L Critically low 73.0-393.0 [facility] Comment on above: Performed By: #### U RCX #### [facility] [address] [address] [address] Juan Jose Banda PREG QUANT HCGon 06-02-2022 HCG QUANT 61691 mIU/mL Normal The [facility] Comment on above: Performed By: #### R PRQ #### [facility] [address] [place] [address] Dr. Juan Jose Banda HCG RANGE SEE BELOW Normal The [facility] Comment on above: Result Comment: 5-50 0.2-1 WEEK 50-500 1-2 WEEKS 100-5,000 2-3 WEEKS 500-10,000 3-4 WEEKS 1,000-50,000 4-5 WEEKS 10,000-100,000 5-6 WEEKS 15,000-200,000 6-8 WEEKS 10,000-100,000 2-3 MONTHS Performed By: #### R PRQ #### [facility] [address] [place] [address] Dr. Juan Jose Banda US PREG TVon [...] Marita SINHA Date: 2022-06-02 01:30 Normal The [facility] CBC AUTO DIFFon 05-25-2022 BASO # 0.0 103/ul Normal 0.0-0.1 [facility] Comment on above: Performed By: #### H IV12 #### [facility] [address] [address] [address] Juan Jose Banda Basophils/100 WBC (Bld) 0.5 % Normal 0.2-2.0 The [facility] Comment on above: Performed By: #### H IV12 #### [facility] [address] [place] [address] Dr. Juan Jose Banda EO # 0.1 103/ul Normal 0.0-0.7 [facility] Comment on above: Performed By: #### H IV12 #### [facility] [address] [place] [address] Dr. Juan Jose Banda Eosinophils/100 WBC (Bld) 1.2 % Normal 0.9-7.0 [facility] Comment on above: Performed By: #### H IV12 #### [facility] [address] [place] [address] Dr. Juan Jose Banda Erythrocyte distribution width (RBC) [Ratio] 11.6 % Normal 11.0-15.0 [facility] Comment on above: Performed By: #### H IV12 #### [facility] [address] [place] [address] Dr. Juan Jose Banda Hematocrit (Bld) [Volume fraction] 36.0 % Normal 36.0-48.0 [facility] Comment on above: Performed By: #### H IV12 #### [facility] [address] [place] [address] Dr. Juan Jose Banda Hemoglobin (Bld) [Mass/Vol] 12.7 g/dL Normal 12.0-16.0 [facility] Comment on above: Performed By: #### H IV12 #### [facility] [address] [address] [address] Juan Jose Banda IG # 0.03 10e3/ul Normal 0.00-0.03 [facility] Comment on above: Performed By: #### H IV12 #### [facility] [address] [address] [address] Juan Jose Banda IG % 0.4 % Normal 0.0-0.5 [facility] Comment on above: Performed By: #### H IV12 #### [facility] [address] [place] [address] Dr. Juan Jose Banda LYMPH # 2.4 103/ul Normal 1.2-3.8 [facility] Comment on above: Performed By: #### H IV12 #### [facility] [address] [place] [address] Dr. Juan Jose Banda Lymphocytes/100 WBC (Bld) 29.8 % Normal 20.5-60.0 [facility] Comment on above: Performed By: #### H IV12 #### [facility] [address] [place] [address] Dr. Juan Jose Banda MANUAL DIFF REQ NO Normal [facility] Comment on above: Performed By: #### H IV12 #### [facility] [address] [place] [address] Dr. Juan Jose Banda MCH (RBC) [Entitic mass] 29.9 pg Normal 26.7-34.0 [facility] Comment on above: Performed By: #### H IV12 #### [facility] [address] [address] [address] Juan Jose Banda MCHC (RBC) [Mass/Vol] 35.3 g/dL Critically high 29.9-35.2 [facility] Comment on above: Performed By: #### H IV12 #### [facility] [address] [place] [address] Dr. Juan Jose Banda MCV (RBC) [Entitic vol] 84.7 fL Normal 81.0-99.0 [facility] Comment on above: Performed By: #### H IV12 #### [facility] [address] [place] [address] Dr. Juan Jose Banda MONO # 0.8 103/ul Normal 0.3-0.8 [facility] Comment on above: Performed By: #### H IV12 #### [facility] [address] [place] [address] Dr. Juan Jose Banda Monocytes/100 WBC (Bld) 9.4 % Normal 1.7-12.0 [facility] Comment on above: Performed By: #### H IV12 #### [facility] [address] [place] [address] Dr. Juan Jose Banda NEUT # 4.8 103/ul Normal 1.4-6.5 [facility] Comment on above: Performed By: #### H IV12 #### [facility] [address] [place] [address] Dr. Juan Jose Banda Neutrophils/100 WBC (Bld) 58.7 % Normal 43.0-75.0 [facility] Comment on above: Performed By: #### H IV12 #### [facility] [address] [place] [address] Dr. Juan Jose Banda Platelet mean volume (Bld) [Entitic vol] 11.5 fL Normal 9.5-13.5 [facility] Comment on above: Performed By: #### H IV12 #### [facility] [address] [place] [address] Dr. Juan Jose Banda PLT 218 103/ul Normal 150-450 [facility] Comment on above: Performed By: #### H IV12 #### [facility] [address] [place] [address] Dr. Juan Jose Banda RBC 4.25 106/ul Normal 4.20-5.40 [facility] Comment on above: Performed By: #### H IV12 #### [facility] [address] [place] [address] Dr. Juan Jose Banda WBC 8.2 103/ul Normal 4.0-11.0 [facility] Comment on above: Performed By: #### H IV12 #### [facility] [address] [place] [address] Dr. Juan Jose Banda ER URINE PROFILEon 2 Bilirubin Ql (U) Negative Normal NEGATIVE [facility] Comment on above: Performed By: #### R PRQ #### [facility] [address] [place] [address] Dr. Juan Jose Banda Clarity (U) CLEAR Normal CLEAR [facility] Comment on above: Performed By: #### R PRQ #### [facility] [address] [place] [address] Dr. Juan Jose Banda Color (U) LT. YELLOW Normal YELLOW [facility] Comment on above: Performed By: #### R PRQ #### [facility] [address] [place] [address] Dr. Juan Jose TAVAREZ A micrscopic examination will be performed if indicated. Normal [facility] Comment on above: Performed By: #### R PRQ #### [facility] [address] [place] [address] Dr. Juan Jose Banda Glucose Ql (U) Negative Normal NEGATIVE [facility] Comment on above: Performed By: #### R PRQ #### [facility] [address] [place] [address] Dr. Juan Jose Banda Hemoglobin Ql (U) Negative Normal NEGATIVE [facility] Comment on above: Performed By: #### R PRQ #### [facility] [address] [place] [address] Dr. Juan Jose Banda Ketones Ql (U) TRACE Abnormal NEGATIVE [facility] Comment on above: Performed By: #### R PRQ #### [facility] [address] [place] [address] Dr. Juan Jose Banda LEUKOCYTES SMALL Abnormal NEGATIVE [facility] Comment on above: Performed By: #### R PRQ #### [facility] [address] [place] [address] Dr. Juan Jose Banda Nitrite Ql (U) Negative Normal NEGATIVE [facility] Comment on above: Performed By: #### R PRQ #### [facility] [address] [place] [address] Dr. Juan Jose Banda pH (U) 5.5 [pH] Normal 5-9 [facility] Comment on above: Performed By: #### R PRQ #### [facility] [address] [place] [address] Dr. Juan Jose Banda SPEC GRAVITY 1.025 Normal 1.005-<=1.025 [facility] Comment on above: Performed By: #### R PRQ #### [facility] [address] [place] [address] Dr. Juan Jose Banda UA PROTEIN Negative Normal NEGATIVE/ TRACE [facility] Comment on above: Performed By: #### R PRQ #### [facility] [address] [place] [address] Dr. Juan Jose Banda UR MICRO IND INDICATED Normal [facility] Comment on above: Performed By: #### R PRQ #### [facility] [address] [place] [address] Dr. Juan Jose Banda Urobilinogen Qn (U) 0.2 {Tyler'U}/dL Normal 0.2 - 1. 0 [facility] Comment on above: Performed By: #### R PRQ #### [facility] [address] [place] [address] Dr. Juan Jose Banda PREG QUANT HCGon 05-25-2022 HCG QUANT 3347 mIU/mL Normal [facility] Comment on above: Performed By: #### U RCX #### [facility] [address] [place] [address] Dr. Juan Jose Banda HCG RANGE SEE BELOW Normal [facility] Comment on above: Result Comment: 5-50 0.2-1 WEEK 50-500 1-2 WEEKS 100-5,000 2-3 WEEKS 500-10,000 3-4 WEEKS 1,000-50,000 4-5 WEEKS 10,000-100,000 5-6 WEEKS 15,000-200,000 6-8 WEEKS 10,000-100,000 2-3 MONTHS Performed By: #### U RCX #### [facility] [address] [place] [address] Dr. Juan Jose Banda PROF 14(COMP METB)on 022 Albumin [Mass/Vol] 3.7 g/dL Normal 3.4-5.0 [facility] Comment on above: Performed By: #### H IV12 #### [facility] [address] [address] [address] Juan Jose Banda Albumin/Globulin [Mass ratio] 1.4 {ratio} Normal [facility] Comment on above: Performed By: #### H IV12 #### [facility] [address] [address] [address] Juan Jose Banda ALP [Catalytic activity/Vol] 66 U/L Normal 46-116 [facility] Comment on above: Performed By: #### H IV12 #### [facility] [address] [address] [address] Juan Jose Banda ALT [Catalytic activity/Vol] 18 U/L Normal 14-59 [facility] Comment on above: Performed By: #### H IV12 #### [facility] [address] [address] [address] Juan Jose Banda Anion gap [Moles/Vol] 11.5 mmol/L Normal [facility] Comment on above: Performed By: #### H IV12 #### [facility] [address] [address] [address] Juan Jose Banda AST [Catalytic activity/Vol] 10 U/L Critically low 15-37 [facility] Comment on above: Performed By: #### H IV12 #### [facility] [address] [address] [address] Juan Jose Banda Bilirubin [Mass/Vol] 0.4 mg/dL Normal 0.2-1.0 [facility] Comment on above: Performed By: #### H IV12 #### [facility] [address] [address] [address] Juan Jose Banda Calcium [Mass/Vol] 8.3 mg/dL Critically low 8.5-10.1 [facility] Comment on above: Performed By: #### H IV12 #### [facility] [address] [address] [address] Juan Jose Badna Chloride [Moles/Vol] 104 mmol/L Normal 98-107 [facility] Comment on above: Performed By: #### H IV12 #### [facility] [address] [address] [address] Juan Jose Banda CO2 [Moles/Vol] 27.3 mmol/L Normal 21.0-32.0 [facility] Comment on above: Performed By: #### H IV12 #### [facility] [address] [place] [address] Dr. Juan Jose Banda Creatinine [Mass/Vol] 0.72 mg/dL Normal 0.55-1.02 [facility] Comment on above: Performed By: #### H IV12 #### [facility] [address] [place] [address] Dr. Juan Jose Banda EGFR-AF SOMALI >60 Normal >=60 [facility] Comment on above: Performed By: #### H IV12 #### [facility] [address] [place] [address] Dr. Juan Jose Banda EGFR-NON AF SOMALI >60 Normal >=60 [facility] Comment on above: Performed By: #### H IV12 #### [facility] [address] [place] [address] Dr. Juan Jose Banda Globulin (S) [Mass/Vol] 2.7 g/dL Normal [facility] Comment on above: Performed By: #### H IV12 #### [facility] [address] [place] [address] Dr. Juan Jose Banda Glucose [Mass/Vol] 95 mg/dL Normal 74-106 [facility] Comment on above: Performed By: #### H IV12 #### [facility] [address] [place] [address] Dr. Juan Jose Banda Potassium [Moles/Vol] 3.8 mmol/L Normal 3.5-5.1 [facility] Comment on above: Performed By: #### H IV12 #### [facility] [address] [place] [address] Dr. Juan Jose Banda Protein [Mass/Vol] 6.4 g/dL Normal 6.4-8.2 [facility] Comment on above: Performed By: #### H IV12 #### [facility] [address] [place] [address] Dr. Jua nJose Banda Sodium [Moles/Vol] 139 mmol/L Normal 136-145 [facility] Comment on above: Performed By: #### H IV12 #### [facility] [address] [place] [address] Dr. Juan Jose Banda Urea nitrogen [Mass/Vol] 9.0 mg/dL Normal 6.4-19.3 [facility] Comment on above: Performed By: #### H IV12 #### [facility] [address] [place] [address] Dr. Juan Jose Banda Urea nitrogen/Creatinine [Mass ratio] 12.5 mg/mg Normal [facility] Comment on above: Performed By: #### H IV12 #### [facility] [address] [place] [address] Dr. Juan Jose Banda URINE MICROSCOPIC ONLYon BACTERIA TRACE Abnormal NONE SEEN [facility] Comment on above: Performed By: #### R PRQ #### [facility] [address] [place] [address] Dr. Juan Jose Banda Bacteria identified Cx Nom (U) INDICATED Normal [facility] Comment on above: Performed By: #### R PRQ #### [facility] [address] [place] [address] Dr. Juan Jose Banda CAST NONE SEEN Normal NONE SEEN [facility] Comment on above: Performed By: #### R PRQ #### [facility] [facility] [address] [place] [address] Dr. Juan Jose Banda Crystals LM Nom (Urine sed) NONE SEEN Normal NONE SEEN [facility] Comment on above: Performed By: #### R PRQ #### [facility] [address] [place] [address] Dr. Juan Jose Banda Epithelial cells LM Ql (Urine sed) RARE Normal NONE SEEN /RARE [facility] Comment on above: Performed By: #### R PRQ #### [facility] [address] [place] [address] Dr. Juan Jose Banda MUCOUS NONE SEEN Normal NONE SEEN [facility] Comment on above: Performed By: #### R PRQ #### [facility] [address] [address] [address] Juan Jose Banda RBC 0-2 Normal 0-2 [facility] Comment on above: Performed By: #### R PRQ #### [facility] [address] [place] [address] Dr. Juan Jose Banda WBC 10-20 Abnormal NONE SEEN [facility] Comment on above: Performed By: #### R PRQ #### [facility] [address] [address] [address] ABD/PELVIS WO [...] ALICJA AVILA Date: 2022-04-29 03:19 Normal [facility] ER URINE PROFILEon 2 Bilirubin Ql (U) Negative Normal NEGATIVE [facility] Comment on above: Performed By: #### C BCMAN #### [facility] [address] [place] [address] Dr. Juan Jose Banda Clarity (U) SL CLOUDY Abnormal CLEAR [facility] Comment on above: Performed By: #### C BCMAN #### [facility] [address] [place] [address] Dr. Juan Jose Banda Color (U) YELLOW Normal YELLOW [facility] Comment on above: Performed By: #### C BCMAN #### [facility] [address] [address] [address] Juan Jose TAVAREZ A micrscopic examination will be performed if indicated. Normal [facility] Comment on above: Performed By: #### C BCJESSICA #### [facility] [address] [address] [address] Juan Jose Banda Glucose Ql (U) Negative Normal NEGATIVE [facility] Comment on above: Performed By: #### C BCJESSICA #### [facility] [address] [address] [address] Juan Jose Banda Hemoglobin Ql (U) Negative Normal NEGATIVE [facility] Comment on above: Performed By: #### C BCJESSICA #### [facility] [address] [place] [address] Dr. Juan Jose Banda Ketones Ql (U) Negative Normal NEGATIVE [facility] Comment on above: Performed By: #### C BCJESSICA #### [facility] [address] [place] [address] Dr. Juan Jose Banda LEUKOCYTES Negative Normal NEGATIVE [facility] Comment on above: Performed By: #### C BCJESSICA #### [facility] [address] [address] [address] Juan Jose Banda Nitrite Ql (U) Negative Normal NEGATIVE [facility] Comment on above: Performed By: #### C OSORIO #### [facility] [address] [place] [address] Dr. Juan Jose Banda pH (U) 6.0 [pH] Normal 5-9 [facility] Comment on above: Performed By: #### C BCJESSICA #### [facility] [address] [address] [address] Juan Jose Banda SPEC GRAVITY >=1.030 Abnormal 1.005-<=1.025 [facility] Comment on above: Performed By: #### C OSORIO #### [facility] [address] [place] [address] Dr. Juan Jose Banda UA PROTEIN Negative Normal NEGATIVE/ TRACE [facility] Comment on above: Performed By: #### C DILLONMAN #### [facility] [address] [address] [address] Juan Jose Banda UR MICRO IND NOT INDICATED Normal [facility] Comment on above: Performed By: #### C OSORIO #### [facility] [address] [address] [address] Juan Jose Banda Urobilinogen Qn (U) 0.2 {Tyler'U}/dL Normal 0.2 - 1. 0 [facility] Comment on above: Performed By: #### C OSORIO #### [facility] [address] [address] [address] Juan Jose Banda URon 04-29-2022 , QUAL Negative Normal NEGATIVE [facility] Comment on above: Performed By: #### C OSORIO #### [facility] [address] [address] [address] Juan Jose Banda PROCALCITONINon 04-13-2022 Procalcitonin 0.04 ng/mL Normal 0.00-0.08 [facility] Comment on above: Result Comment: . [...] obtained. Performed By: #### C OSORIO #### [facility] [address] [address] [address] Juan Jose Banda CBC AUTO DIFFon 04-10-2022 BASO # 0.0 103/ul Normal 0.0-0.1 [facility] Comment on above: Performed By: #### C BC #### [facility] [address] [place] [address] Dr. Juan Jose Banda Basophils/100 WBC (Bld) 0.3 % Normal 0.2-2.0 [facility] Comment on above: Performed By: #### C BC #### [facility] [address] [place] [address] Dr. Juan Jose Banda EO # 0.2 103/ul Normal 0.0-0.7 [facility] Comment on above: Performed By: #### C BC #### [facility] [address] [place] [address] Dr. Juan Jose Banda Eosinophils/100 WBC (Bld) 2.5 % Normal 0.9-7.0 [facility] Comment on above: Performed By: #### C BC #### [facility] [address] [place] [address] Dr. Juan Jose Banda Erythrocyte distribution width (RBC) [Ratio] 11.6 % Normal 11.0-15.0 [facility] Comment on above: Performed By: #### C BC #### [facility] [address] [place] [address] Dr. Juan Jose Banda Hematocrit (Bld) [Volume fraction] 38.2 % Normal 36.0-48.0 [facility] Comment on above: Performed By: #### C BC #### [facility] [address] [place] [address] Dr. Juan Jose Banda Hemoglobin (Bld) [Mass/Vol] 13.5 g/dL Normal 12.0-16.0 [facility] Comment on above: Performed By: #### C BC #### [facility] [address] [place] [address] Dr. Juan Jose Banda IG # 0.01 10e3/ul Normal 0.00-0.03 [facility] Comment on above: Performed By: #### C BC #### [facility] [address] [place] [address] Dr. Juan Jose Banda IG % 0.2 % Normal 0.0-0.5 [facility] Comment on above: Performed By: #### C BC #### [facility] [address] [place] [address] Dr. Juan Jose Banda LYMPH # 2.2 103/ul Normal 1.2-3.8 [facility] Comment on above: Performed By: #### C BC #### [facility] [address] [place] [address] Dr. Juan Jose Banda Lymphocytes/100 WBC (Bld) 33.3 % Normal 20.5-60.0 [facility] Comment on above: Performed By: #### C BC #### [facility] [address] [place] [address] Dr. Juan Jose Banda MANUAL DIFF REQ NO Normal [facility] Comment on above: Performed By: #### C BC #### [facility] [address] [place] [address] Dr. Juan Jose Banda MCH (RBC) [Entitic mass] 29.6 pg Normal 26.7-34.0 [facility] Comment on above: Performed By: #### C BC #### [facility] [address] [place] [address] Dr. Juan Jose Banda MCHC (RBC) [Mass/Vol] 35.3 g/dL Critically high 29.9-35.2 [facility] Comment on above: Performed By: #### C BC #### [facility] [address] [place] [address] Dr. Juan Jose Banda MCV (RBC) [Entitic vol] 83.8 fL Normal 81.0-99.0 [facility] Comment on above: Performed By: #### C BC #### [facility] [address] [place] [address] Dr. Juan Jose Banda MONO # 0.7 103/ul Normal 0.3-0.8 [facility] Comment on above: Performed By: #### C BC #### [facility] [address] [place] [address] Dr. Juan Jose Banda Monocytes/100 WBC (Bld) 10.2 % Normal 1.7-12.0 [facility] Comment on above: Performed By: #### C BC #### [facility] [address] [place] [address] Dr. Juan Jose Banda NEUT # 3.5 103/ul Normal 1.4-6.5 [facility] Comment on above: Performed By: #### C BC #### [facility] [address] [place] [address] Dr. Juan Jose Banda Neutrophils/100 WBC (Bld) 53.5 % Normal 43.0-75.0 [facility] Comment on above: Performed By: #### C BC #### [facility] [address] [place] [address] Dr. Juan Jose Banda Platelet mean volume (Bld) [Entitic vol] 11.9 fL Normal 9.5-13.5 [facility] Comment on above: Performed By: #### C BC #### [facility] [address] [place] [address] Dr. Juan Jose Banda PLT 200 103/ul Normal 150-450 [facility] Comment on above: Performed By: #### C BC #### [facility] [address] [place] [address] Dr. Juan Jose Banda RBC 4.56 106/ul Normal 4.20-5.40 [facility] Comment on above: Performed By: #### C BC #### [facility] [address] [place] [address] Dr. Juan Jose Banda WBC 6.5 103/ul Normal 4.0-11.0 [facility] Comment on above: Performed By: #### C BC #### [facility] [address] [place] [address] [address] ABD/PELV W [...] by: YO TO Date: 2022-04-10 08:37 Normal [facility] GROUP A STREP CULTUREon S. pyogenes Ag Ql (Unsp spec) Culture Observations: NEGATIVE FOR GROUP A STREPTOCOCCUS. Normal [facility] Comment on above: Performed By: #### U RCX #### [facility] [address] [place], [place] [address] Dr. Juan Jose Banda LACTATE/LACTIC ACIDon 2021 Lactate [Moles/Vol] 0.9 mmol/L Normal 0.4-1.9 [facility] Comment on above: Performed By: #### U RCX #### [facility] [address] [place], [place] [address] Dr. Juan Jose Banda Lactate [Moles/Vol] 2.5 mmol/L Critically high 0.4-1.9 [facility] Comment on above: Performed By: #### U RCX #### [facility] [address] [place] [address] Dr. Juan Jose Banda PREG HCG QUALon 04-10-2022 , QUAL Negative Normal NEGATIVE [facility] Comment on above: Performed By: #### S EDR #### [facility] [address] [place] [address] Dr. Juan Jose Badna PROF 14(COMP METB)on 022 Albumin [Mass/Vol] 4.3 g/dL Normal 3.4-5.0 [facility] Comment on above: Performed By: #### C OSORIO #### [facility] [address] [place] [address] Dr. Juan Jose Banda Albumin/Globulin [Mass ratio] 1.8 {ratio} Normal [facility] Comment on above: Performed By: #### C OSORIO #### [facility] [address] [place] [address] Dr. Juan Jose Banda ALP [Catalytic activity/Vol] 92 U/L Normal 46-116 [facility] Comment on above: Performed By: #### C OSORIO #### [facility] [address] [place] [address] Dr. Juan Jose Banda ALT [Catalytic activity/Vol] 20 U/L Normal 14-59 [facility] Comment on above: Performed By: #### C OSORIO #### [facility] [address] [place] [address] Dr. Juan Jose Banda Anion gap [Moles/Vol] 15.4 mmol/L Normal [facility] Comment on above: Performed By: #### C OSORIO #### [facility] [address] [place] [address] Dr. Juan Jose Banda AST [Catalytic activity/Vol] 17 U/L Normal 15-37 [facility] Comment on above: Performed By: #### C OSORIO #### [facility] [address] [place] [address] Dr. Juan Jose Banda Bilirubin [Mass/Vol] 1.2 mg/dL Critically high 0.2-1.0 [facility] Comment on above: Performed By: #### C OSORIO #### [facility] [address] [place] [address] Dr. Juan Jose Banda Calcium [Mass/Vol] 8.8 mg/dL Normal 8.5-10.1 [facility] Comment on above: Performed By: #### C BCJESSICA #### [facility] [address] [address] [address] Juan Jose Banda Chloride [Moles/Vol] 107 mmol/L Normal 98-107 [facility] Comment on above: Performed By: #### C OSORIO #### [facility] [address] [place] [address] Dr. Juan Jose Banda CO2 [Moles/Vol] 23.0 mmol/L Normal 21.0-32.0 [facility] Comment on above: Performed By: #### C OSORIO #### [facility] [address] [place] [address] Dr. Juan Jose Banda Creatinine [Mass/Vol] 0.95 mg/dL Normal 0.55-1.02 [facility] Comment on above: Performed By: #### C OSORIO #### [facility] [address] [place] [address] Dr. Juan Jose Banda Globulin (S) [Mass/Vol] 2.4 g/dL Normal [facility] Comment on above: Performed By: #### C OSORIO #### [facility] [address] [place] [address] Dr. Juan Jose Banda Glucose [Mass/Vol] 95 mg/dL Normal 74-106 [facility] Comment on above: Performed By: #### C BCMAN #### [facility] [address] [address] [address] Juan Jose Banda Potassium [Moles/Vol] 3.4 mmol/L Critically low 3.5-5.1 [facility] Comment on above: Performed By: #### C OSORIO #### [facility] [address] [place] [address] Dr. Juan Jose Banda Protein [Mass/Vol] 6.7 g/dL Normal 6.4-8.2 [facility] Comment on above: Performed By: #### C OSORIO #### [facility] [address] [place] [address] Dr. Juan Jose Banda Sodium [Moles/Vol] 142 mmol/L Normal 136-145 [facility] Comment on above: Performed By: #### C OSORIO #### [facility] [address] [place] [address] Dr. Juan Jose Banda Urea nitrogen [Mass/Vol] 13.0 mg/dL Normal 6.4-19.3 [facility] Comment on above: Performed By: #### C OSORIO #### [facility] [address] [place] [address] Dr. Juan Jose Banda Urea nitrogen/Creatinine [Mass ratio] 13.7 mg/mg Normal [facility] Comment on above: Performed By: #### C OSORIO #### [facility] [address] [place] [address] Dr. Juan Jose Banda SED RATE WESTERGRENon 2021 SED RATE 1 mm/hr Normal <=20 [facility] Comment on above: Performed By: #### S EDR #### [facility] [address] [place] [address] Dr. Juan Jose Banda STREPT SCREENon 04-10-2022 STREP SCREEN A Negative Normal NEGATIVE [facility] Comment on above: Performed By: #### U RCX #### [facility] [address] [place] [address] Dr. Juan Jose Banda AMYLASEon 04-07-2022 Amylase [Catalytic activity/Vol] 29 U/L Normal 25-115 [facility] Comment on above: Performed By: #### H IV12 #### [facility] [address] [place] [address] Dr. Juan Jose Banda CBC AUTO DIFFon 04-07-2022 BASO # 0.0 103/ul Normal 0.0-0.1 [facility] Comment on above: Performed By: #### R PRQ #### [facility] [address] [place] [address] Dr. Juan Jose Banda Basophils/100 WBC (Bld) 0.4 % Normal 0.2-2.0 [facility] Comment on above: Performed By: #### R PRQ #### [facility] [address] [place] [address] Dr. Juan Jose Banda EO # 0.1 103/ul Normal 0.0-0.7 [facility] Comment on above: Performed By: #### R PRQ #### [facility] [address] [place] [address] Dr. Juan Jose Banda Eosinophils/100 WBC (Bld) 1.4 % Normal 0.9-7.0 [facility] Comment on above: Performed By: #### R PRQ #### [facility] [address] [place] [address] Dr. Juan Jose Banda Erythrocyte distribution width (RBC) [Ratio] 11.5 % Normal 11.0-15.0 [facility] Comment on above: Performed By: #### R PRQ #### [facility] [address] [place] [address] Dr. Juan Jose Banda Hematocrit (Bld) [Volume fraction] 36.5 % Normal 36.0-48.0 [facility] Comment on above: Performed By: #### R PRQ #### [facility] [address] [place] [address] Dr. Juan Jose Banda Hemoglobin (Bld) [Mass/Vol] 13.0 g/dL Normal 12.0-16.0 [facility] Comment on above: Performed By: #### R PRQ #### [facility] [address] [place] [address] Dr. Juan Jose Banda IG # 0.02 10e3/ul Normal 0.00-0.03 [facility] Comment on above: Performed By: #### R PRQ #### [facility] [address] [place] [address] Dr. Juan Jose Banda IG % 0.3 % Normal 0.0-0.5 [facility] Comment on above: Performed By: #### R PRQ #### [facility] [address] [address] [address] Juan Jose Banda LYMPH # 2.4 103/ul Normal 1.2-3.8 [facility] Comment on above: Performed By: #### R PRQ #### [facility] [address] [place] [address] Dr. Juan Jose Banda Lymphocytes/100 WBC (Bld) 31.4 % Normal 20.5-60.0 [facility] Comment on above: Performed By: #### R PRQ #### [facility] [address] [place] [address] Dr. Juan Jose Banda MANUAL DIFF REQ NO Normal [facility] Comment on above: Performed By: #### R PRQ #### [facility] [address] [place] [address] Dr. Juan Jose Banda MCH (RBC) [Entitic mass] 29.8 pg Normal 26.7-34.0 [facility] Comment on above: Performed By: #### R PRQ #### [facility] [address] [place] [address] Dr. Juan Jose Banda MCHC (RBC) [Mass/Vol] 35.6 g/dL Critically high 29.9-35.2 [facility] Comment on above: Performed By: #### R PRQ #### [facility] [address] [place] [address] Dr. Juan Jose Banda MCV (RBC) [Entitic vol] 83.7 fL Normal 81.0-99.0 [facility] Comment on above: Performed By: #### R PRQ #### [facility] [address] [place] [address] Dr. Juan Jose Banda MONO # 0.9 103/ul Critically high 0.3-0.8 [facility] Comment on above: Performed By: #### R PRQ #### [facility] [address] [place] [address] Dr. Juan Jose Banda Monocytes/100 WBC (Bld) 11.1 % Normal 1.7-12.0 [facility] Comment on above: Performed By: #### R PRQ #### [facility] [address] [place] [address] Dr. Juan Jose Banda NEUT # 4.3 103/ul Normal 1.4-6.5 [facility] Comment on above: Performed By: #### R PRQ #### [facility] [address] [place] [address] Dr. Juan Jose Banda Neutrophils/100 WBC (Bld) 55.4 % Normal 43.0-75.0 [facility] Comment on above: Performed By: #### R PRQ #### [facility] [address] [place] [address] Dr. Juan Jose Banda Platelet mean volume (Bld) [Entitic vol] 11.6 fL Normal 9.5-13.5 [facility] Comment on above: Performed By: #### R PRQ #### [facility] [address] [place] [address] Dr. Juan Jose Banda PLT 187 103/ul Normal 150-450 [facility] Comment on above: Performed By: #### R PRQ #### [facility] [address] [place] [address] Dr. Juan Jose Banda RBC 4.36 106/ul Normal 4.20-5.40 [facility] Comment on above: Performed By: #### R PRQ #### [facility] [address] [place] [address] Dr. Juan Jose Banda WBC 7.7 103/ul Normal 4.0-11.0 [facility] Comment on above: Performed By: #### R PRQ #### [facility] [address] [place] [address] Dr. Juan Jose Banda ER URINE PROFILEon 2 Bilirubin Ql (U) SMALL Abnormal NEGATIVE [facility] Comment on above: Performed By: #### U RCX #### [facility] [address] [place] [address] Dr. Juan Jose Banda Clarity (U) CLEAR Normal CLEAR [facility] Comment on above: Performed By: #### U RCX #### [facility] [address] [place] [address] Dr. Juan Jose Banda Color (U) YELLOW Normal YELLOW [facility] Comment on above: Performed By: #### U RCX #### [facility] [address] [address] [address] Juan Jose TAVAREZ A micrscopic examination will be performed if indicated. Normal [facility] Comment on above: Performed By: #### U RCX #### [facility] [address] [address] [address] Juan Jose Banda Glucose Ql (U) Negative Normal NEGATIVE [facility] Comment on above: Performed By: #### U RCX #### [facility] [address] [address] [address] Juan Jose Banda Hemoglobin Ql (U) Negative Normal NEGATIVE [facility] Comment on above: Performed By: #### U RCX #### [facility] [address] [address] [address] Juan Jose Banda Ketones Ql (U) 40 mg/dl Abnormal NEGATIVE [facility] Comment on above: Performed By: #### U RCX #### [facility] [address] [address] [address] Juan Jose Banda LEUKOCYTES Negative Normal NEGATIVE [facility] Comment on above: Performed By: #### U RCX #### [facility] [address] [address] [address] Juan Jose Banda Nitrite Ql (U) Negative Normal NEGATIVE [facility] Comment on above: Performed By: #### U RCX #### [facility] [address] [address] [address] Juan Jose Banda pH (U) 5.5 [pH] Normal 5-9 [facility] Comment on above: Performed By: #### U RCX #### [facility] [address] [address] [address] Juan Jose Banda SPEC GRAVITY 1.030 Abnormal 1.005-<=1.025 [facility] Comment on above: Performed By: #### U RCX #### [facility] [address] [place] [address] Dr. Juan Jose Banda UA PROTEIN Negative Normal NEGATIVE/ TRACE [facility] Comment on above: Performed By: #### U RCX #### [facility] [address] [place] [address] Dr. Juan Jose Banda UR MICRO IND NOT INDICATED Normal [facility] Comment on above: Performed By: #### U RCX #### [facility] [address] [address] [address] Juan Jose Banda Urobilinogen Qn (U) 0.2 {Tyler'U}/dL Normal 0.2 - 1. 0 [facility] Comment on above: Performed By: #### U RCX #### [facility] [facility] [address] [place] [address] Dr. Juan Jose Banda LIPASEon 04-07-2022 Lipase [Catalytic activity/Vol] 77.0 U/L Normal 73.0-393.0 [facility] Comment on above: Performed By: #### H IV12 #### [facility] [address] [place] [address] Dr. Juan Jose Banda URon 04-07-2022 , QUAL Negative Normal NEGATIVE [facility] Comment on above: Performed By: #### U RCX #### [facility] [address] [place] [address] Dr. Juan Jose Banda PROF 14(COMP METB)on 022 Albumin [Mass/Vol] 4.4 g/dL Normal 3.4-5.0 [facility] Comment on above: Performed By: #### H IV12 #### [facility] [address] [place] [address] Dr. Juan Jose Banda Albumin/Globulin [Mass ratio] 1.5 {ratio} Normal [facility] Comment on above: Performed By: #### H IV12 #### [facility] [address] [place] [address] Dr. Juan Jose Banda ALP [Catalytic activity/Vol] 97 U/L Normal 46-116 [facility] Comment on above: Performed By: #### H IV12 #### [facility] [address] [place] [address] Dr. Juan Jose Banda ALT [Catalytic activity/Vol] 16 U/L Normal 14-59 [facility] Comment on above: Performed By: #### H IV12 #### [facility] [address] [address] [address] Juan Jose Banda Anion gap [Moles/Vol] 15.4 mmol/L Normal [facility] Comment on above: Performed By: #### H IV12 #### [facility] [address] [address] [address] Juan Jose Banda AST [Catalytic activity/Vol] 19 U/L Normal 15-37 [facility] Comment on above: Performed By: #### H IV12 #### [facility] [address] [address] [address] Juan Jose Banda Bilirubin [Mass/Vol] 0.9 mg/dL Normal 0.2-1.0 [facility] Comment on above: Performed By: #### H IV12 #### [facility] [address] [address] [address] Juan Jose Banda Calcium [Mass/Vol] 9.2 mg/dL Normal 8.5-10.1 [facility] Comment on above: Performed By: #### H IV12 #### [facility] [address] [address] [address] Juan Jose Banda Chloride [Moles/Vol] 107 mmol/L Normal 98-107 [facility] Comment on above: Performed By: #### H IV12 #### [facility] [address] [address] [address] Juan Jose Banda CO2 [Moles/Vol] 22.2 mmol/L Normal 21.0-32.0 [facility] Comment on above: Performed By: #### H IV12 #### [facility] [address] [address] [address] Juan Jose Banda Creatinine [Mass/Vol] 0.94 mg/dL Normal 0.55-1.02 [facility] Comment on above: Performed By: #### H IV12 #### [facility] [address] [address] [address] Juan Jose Banda EGFR-AF SOMALI >60 Normal >=60 [facility] Comment on above: Performed By: #### H IV12 #### [facility] [address] [address] [address] Juan Jose Banda EGFR-NON AF SOMALI >60 Normal >=60 [facility] Comment on above: Performed By: #### H IV12 #### [facility] [address] [address] [address] Juan Jose Banda Globulin (S) [Mass/Vol] 2.9 g/dL Normal [facility] Comment on above: Performed By: #### H IV12 #### [facility] [address] [address] [address] Juan Jose Banda Glucose [Mass/Vol] 93 mg/dL Normal 74-106 [facility] Comment on above: Performed By: #### H IV12 #### [facility] [address] [place] [address] Dr. Juan Jose Banda Potassium [Moles/Vol] 3.6 mmol/L Normal 3.5-5.1 [facility] Comment on above: Performed By: #### H IV12 #### [facility] [address] [address] [address] Juan Jose Banda Protein [Mass/Vol] 7.3 g/dL Normal 6.4-8.2 [facility] Comment on above: Performed By: #### H IV12 #### [facility] [address] [place] [address] Dr. Juan Jose Banda Sodium [Moles/Vol] 141 mmol/L Normal 136-145 [facility] Comment on above: Performed By: #### H IV12 #### [facility] [address] [address] [address] Juan Jose Banda Urea nitrogen [Mass/Vol] 14.0 mg/dL Normal 6.4-19.3 [facility] Comment on above: Performed By: #### H IV12 #### [facility] [address] [place] [address] Dr. Juan Jose Banda Urea nitrogen/Creatinine [Mass ratio] 14.9 mg/mg Normal [facility] Comment on above: Performed By: #### H IV12 #### [facility] [id number] Juan Jose Banda HCG-BETA SUBUNIT QUANTon hCG,Beta Subunit,Qnt,Serum <1 Normal [facility] Comment on above: Result Comment: Fema le (Non-) 0 - 5 (Postmenopausal) 0 - 8 . Female () Weeks of Gestation 3 6 - 71 4 10 - 750 5 177 - 8104 6 714 - 48377 7 2663 -210023 8 84682 -407103 9 31629 -280146 10 13692 -642832 12 22708 -793022 14 36896 - 22857 15 05017 - 10401 16 2824 - 05615 17 6636 - 59343 18 1665 - 51864 Serena ECLIA methodology Performed By: #### R PRQ #### [facility] [address] [address] [address] Juan Jose Banda MR head/brain wo/w conon MR head/brain wo/w con [place] [address] MRI Report Signed Patient: Kemi Piper MR#: [id number] 59 : 2005 Acct:[id number] Age/Sex: 15 / F ADM Date: 12/15/20 Loc: [facility] Room: Type: [facility] Attending Dr: Horace Dillard DO Ordering Provider: Tyson Dillard DO Date of Service: 12/15/20 MR/MR head/brain wo/w con: siezuleona Copies to: Tyson Dillard DO MRI head [...] Huynh Jr., M.D.12/15/2020 2:41 PM Dictation Location: [place] [address] Transcribed By: [facility] 12/15/20 1441 Dictated By: Zackary Huynh Jr, MD 12/15/20 1426 Signed By: 12/15/20 1441 [facility] Vital Signs Date Time Vital Sign Value Performing Clinician Faci lity 10-18-2023 10:03-0400 Body height 175.3 cm Viki Jorge PUBLIC TRANSPORTATION INSPECTOR-AUTOMOBILE BODY CUSTOMIZER Work Phone: [facility] 10-18-2023 10:03-0400 Body mass index (BMI) [Ratio] 19.73 kg/m2 Viki Trevizooll PUBLIC TRANSPORTATION INSPECTOR-AUTOMOBILE BODY CUSTOMIZER Work Phone: [facility] 10-18-2023 10:03-0400 Body weight 60.6 kg Viki Trevizooll PUBLIC TRANSPORTATION INSPECTOR-AUTOMOBILE BODY CUSTOMIZER [facility] Phone[facility] 10-18-2023 10:03-0400 Diastolic blood pressure 62 mm[Hg] Viki Ocasio PUBLIC TRANSPORTATION INSPECTOR-AUTOMOBILE BODY CUSTOMIZER Work Phone: [facility] 10-18-2023 10:03-0400 Heart rate 74 /min Viki Ocasio PUBLIC TRANSPORTATION INSPECTOR-AUTOMOBILE BODY CUSTOMIZER Work Phone: [facility] [employer] 10-18-2023 10:03-0400 Systolic blood pressure 123 mm[Hg] Viki Trevizooll PUBLIC TRANSPORTATION INSPECTOR-AUTOMOBILE BODY CUSTOMIZER Work Phone: [facility] 09-28-2023 09:20-0500 Body height 175.3 cm Pmh 2 [facility] 09-28-2023 09:20-0500 Body mass index (BMI) [Ratio] 19.64 kg/m2 P[facility] 2 [facility] 09-28-2023 09:20-0500 Body weight 60.33 kg Pmh 2 [facility] Encounters Encounter Date Encounter Type Care Provider Facility Start: 09-25-2024 End: 09-25-2024 Office outpatient visit 15 minutes Wolfgang Yasmin DO Work Phone: [facility] Comment on above: PCOS (polycystic ova harika syndrome) (Primary Dx) Start: 09-25-2024 End: 09-25-2024 ambulatory WOLFGANG YASMIN Not Available Start: 09-25-2024 End: 09-25-2024 Bamboo flowsheet Wolfgang Yasmin DO Work Phone: [facility] Start: 09-25-2024 End: 09-25-2024 Bamboo flowsheet Wolfgang Yasmin DO Work Phone: [facility] Start: 03-23-2024 End: 03-23-2024 ambulatory WOLFGANG YASMIN Not Available Start: 12-30-2023 End: 12-30-2023 ambulatory WOLFGANG YASMIN Not Available Start: 11-03-2023 Telephone encounter Tessa Roberts HARNESS WORKER [facility] Start: 10-18-2023 End: 10-18-2023 ambulatory [facility] Start: 10-18-2023 End: 10-18-2023 Postop follow up visit related to original px [facility] PUBLIC TRANSPORTATION INSPECTOR-AUTOMOBILE BODY CUSTOMIZER Work Phone: [facility] Comment on above: Status post laparosc opic cholecystectomy (Primary Dx) Start: 10-03-2023 End: 10-03-2023 Evaluation and management of inpatient [facility] Start: 10-03-2023 End: 10-03-2023 Evaluation and management of inpatient LOUISESUSIE Zambrano LANETTE [facility] Start: 09-30-2023 End: 09-30-2023 ambulatory WOLFGANG YASMIN Not Available Start: 09-28-2023 End: 09-29-2023 ambulatory [facility] Start: 09-28-2023 Encounter for other preprocedural examination RASHARD [facility] Start: 09-28-2023 End: 09-28-2023 Patient encounter procedure P[facility] Pre-Admission Testing 2 [facility] - Pre Admit Comment on above: Preop examination (P rimary Dx); Asthma, unspecified asthma severity, unspecified whether complicated, unspecified whether persistent Start: 09-28-2023 End: 09-28-2023 Preprocedural examination done Pm 2 [facility] Start: 09-27-2023 End: 09-27-[address] [facility] Start: 09-27-2023 End: 09-27-2023 Office outpatient new 30 minutes Alo Morgan MD Work Phone: [facility] Comment on above: Biliary colic (Prima ry Dx) Start: 09-13-2023 Telephone encounter Gurmeet Morgan MD Work Phone: [facility] Start: 08-30-2023 End: 08-31-2023 Evaluation and management of inpatient [facility] Start: 08-24-2023 ambulatory [facility] Start: 08-23-2023 Telephone encounter Paola Temple [facility] Start: 08-23-2023 ambulatory [facility] Start: 08-16-2023 Telephone encounter Alicja Beltre DO Work Phone: [facility] Start: 07-29-2023 ambulatory [facility] Facility:[facility] [place] Start: 07-26-2023 End: 07-27-2023 ambulatory Rashard Hoy Facility: [facility] [place] Start: 07-26-2023 End: 07-26-2023 Patient encounter procedure Alicja LINARES [facility] [place] Start: 07-12-2023 ambulatory Rashard Hoy Facility:[facility] [place] Start: 06-27-2023 [facility] Facility:[facility] [place] Start: 01-05-2023 Evaluation and manag ement of inpatient DR WOLFGANG HOFFMAN . Facility:[facility] Start: 01-04-2023 Evaluation and manag ement of inpatient DR WOLFGANG HOFFMAN . Facility:[facility] Start: 01-04-[address] WOLFGANG HOFFMAN . Facili ty:[facility] Start: 01-01-2023 End: 01-01-[address] WOLFGANG HOFFMAN . Facility:[facility] Start: 12-31-2022 End: 12-31-[address] WOLFGANG HOFFMAN . Facility:[facility] Start: 12-28-2022 End: 12-28-[address] WOLFGANG HOFFMAN . Facility:[facility] Start: 12-24-2022 End: 12-24-[address] WOLFGANG HOFFMAN . Facility:[facility] Start: 12-22-2022 End: 12-22-[address] WOLFGANG HOFFMAN . Facility:[facility] Start: 12-20-2022 End: 12-21-[address] WOLFGANG HOFFMAN . Facility:[facility] Start: 12-17-2022 End: 12-17-[address] JAYSON HERNÁNDEZ . Facility:[facility] Start: 11-04-2022 End: 11-04-2022 ambulatory LALITA LANGSTON . Facility:[facility] Start: 10-01-2022 End: 10-02-[address] WOLFGANG HOFFMAN . Facility:[facility] Start: 09-28-2022 End: 09-29-[address] LUISA ARCHIBALD Facility:[facility] Start: 08-25-2022 End: 08-25-2022 ambulatory GOGO MONTESINOS . Facility:[facility] Start: 08-24-2022 End: 08-25-[address] WOLFGANG HOFFMAN . Facility:[facility] Start: 06-25-2022 End: 06-25-[address] RASHARD BURNS . Facility:[facility] Start: 06-20-2022 End: 06-20-2022 ambulatory CASSANDRA GARCIA . Facility:[facility] Start: 06-18-2022 End: 06-19-[address] WOLFGANG HOFFMAN . Facility:[facility] Start: 06-02-2022 End: 06-02-[address] GUSTAVO VIDAL Facility:[facility] Start: 05-25-2022 End: 05-25-2022 ambulatory GEORGINA HILARIO Facility:[facility] Start: 04-29-2022 End: 04-29-[address] GUSTAVO VIDAL Facility:[facility] Start: 04-10-2022 End: 04-10-2022 ambulatory GEORGINA HILARIO Facility:[facility] Start: 04-07-2022 End: 04-07-[address] GUSTAVO VIDAL Facility:[facility] Start: 04-07-2022 End: 04-07-2022 ambulatory GEORGINA HILARIO Facility:[facility] Start: 02-22-2022 End: 02-23-[address] RASHARD BURNS . 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 CUSTOMIZER Work Phone: Plan of Treatment Date Care Activity Detail Author Start: 03-25-2026 DTaP,Tdap and Td Vac cines (7 - Td or Tdap) DTaP,Tdap and Td Vaccines (7 - Td or Tdap) [facility] Start: 11-12-2024 End: 11-12-2024 Patient encounter procedure 11/12/2024 2:00 PM EDT Office Visit [facility] [address] [place] [id number] Wolfgang Hoffman, DO [address] [place] [address] [facility] Start: 10-17-2024 Adult BMI Screening Adult BMI Screen ing [facility] Start: 10-17-2024 Tobacco Screening Tobacco Screening [facility] Start: 10-03-2024 Adult BMI Screening Adult BMI Screen ing [facility] Start: 10-03-2024 Tobacco Screening Tobacco Screening [facility] Start: 09-28-2024 Adult BMI Screening Adult BMI Screen ing [facility] Start: 09-28-2024 Tobacco Screening Tobacco Screening [facility] Start: 09-27-2024 Tobacco Screening Tobacco Screening [facility] Start: 09-25-2024 End: 09-25-2024 Patient encounter procedure 09/25/2024 3:00 PM EST Office Visit [facility] [address] [place] [address] Wolfgang Hoffman, [address] [place] [address] Arrived [facility] Comment on above: Arrived Start: 09-25-2024 End: 09-25-2025 DHEA DHEA Lab Routine PCOS (polycystic ovarian syndrome) Expected: 09/25/2024 (Approximate), Expires: 09/25/2025 [facility] Comment on above: Expected: 09/25/2024 (Approximate), Expires: 09/25/2025 Start: 09-25-2024 End: 09-25-2025 US Pelvis US Pelvis w/ TV Imaging Routine PCOS (polycystic ovarian syndrome) Expected: 09/25/2024, Expires: 09/25/2025 [facility] Comment on above: Expected: 09/25/2024 , Expires: 09/25/2025 Start: 10-18-2023 End: 10-18-2023 Patient encounter procedure 10/18/2023 10:00 AM EDT Office Visit [facility] [address] [place] [phone] Viki Ocasio, PUBLIC TRANSPORTATION INSPECTOR-[facility] [address], [place] [id number] [facility] Start: 10-03-2023 End: 10-03-2023 Admission to same day surgery center 10/03/2023 11:00 AM EST - 10/03/2023 12:55 PM EST Surgery [facility] - Surgery [address] [place] [address] Alo Morgan MD [address] [place] [address] DAVINCI CHOLECYSTECTOMY [51846 (CPT )] [facility] Comment on above: DAVINCI CHOLECYSTECT NATI [33112 (CPT )] Start: 10-03-2023 End: 10-03-2023 Laparoscopy surg cholecystectomy DAVINCI CHOLECYSTECTOMY biliary colic 10/03/2023 11:00 AM EST [facility] Start: 10-03-2023 Subsequent hospital visit by physician 10/03/2023 11:00 AM EST Hospital Encounter [facility] [address] [place] [address] Alo Morgan MD [address] [place] [phone] [facility] Start: 09-27-2023 End: 09-27-2023 Patient encounter procedure 09/27/2023 11:00 AM EST Office Visit [facility] [address] [place] [phone] Alo Morgan MD [address] [place] [address] [facility] Start: 08-23-2023 End: 08-23-2023 Patient encounter procedure 08/23/2023 10:45 AM EST Office Visit [facility] [address] [place] [phone] Alo Morgan MD [address] [place] [phone] [facility] Start: 04-08-2023 Influenza vaccination Influenza Vacc ine [facility] Start: 04-03-2022 Adult BMI Screening Adult BMI Screen ing [facility] Start: 2015 Depression Screening Depression Scre ening [facility] Start: 2015 Tobacco Screening Tobacco Screening [facility] Start: 2003 Tobacco Counseling Tobacco Counselin g [facility] CBC W Auto Different ial panel - Blood CBC and differential Lab Routine PCOS (polycystic ovarian syndrome) Ordered: 09/25/2024 [facility] Comment on above: Ordered: 09/25/2024 DHEA-sulfate DHEA-sulfate Lab Routine PCOS (polycystic ovarian syndrome) Ordered: 09/25/2024 [facility] Comment on above: Ordered: 09/25/2024 Follicle stimulating hormone Follicle stimulating hormone Lab Routine PCOS (polycystic ovarian syndrome) Ordered: 09/25/2024 [facility] Comment on above: Ordered: 09/25/2024 hCG, quantitative, hCG, quantitative, Lab Routine PCOS (polycystic ovarian syndrome) Ordered: 09/25/2024 [facility] Work Phone: Comment on above: Ordered: 09/25/2024 Hemoglobin A1c/Hemoglobin.total in Blood Hemoglobin A1c Lab Routine PCOS (polycystic ovarian syndrome) Ordered: 09/25/2024 [facility] Comment on above: Ordered: 09/25/2024 Luteinizing hormone Luteinizing hormone Lab Routine PCOS (polycystic ovarian syndrome) Ordered: 09/25/2024 [facility] Comment on above: Ordered: 09/25/2024 Thyrotropin [Units/volume] in Serum or Plasma TSH Lab Routine PCOS (polycystic ovarian syndrome) Ordered: 09/25/2024 [facility] Work Phone: Comment on above: Ordered: 09/25/2024 Thyroxine (T4) free [Mass/volume] in Serum or Plasma T4, free Lab Routine PCOS (polycystic ovarian syndrome) Ordered: 09/25/2024 [facility] Comment on above: Ordered: 09/25/2024 End: 09-26-2024 Unlisted Procedure / Surgery Unlisted Procedure / Surgery Procedures Routine Biliary colic 1 Occurrences starting 09/27/2023 until 09[facility]: Comment on above: 1 Occurrences starti ng 09/27/2023 until 09/26/2024 Immunizations Immunization Date Immunization Notes Care Provider Fa cili 06-23-2021 influenza virus vaccine, unspecified formulation Paola Temple [facility] 06-22-2016 influenza virus vaccine, unspecified formulation Alicja Beltre DO Work Phone: [facility] Payers Date Payer Category Payer Private Health Insurance JOSE [employer] [id number] 2024 Unknown [id number] 2023 Medicaid (Managed Care) [employer] [id number] 2018 Medicaid [employer] [id number] 2018-Present [phone] [place] [phone] [id number] 2003 Unknown [id number] 2.16.840.1.879445.3.579.2. 593 2003 Unknown [id number] 2.16.840.1.385192.3.579.2. 593 2003 Unknown [id number] 2.16.840.1.577182.3.579.2. 593 2003 Unknown [id number] 2.16.840.1.778356.3.579.2. 593 2003 Unknown [id number] 2.16.840.1.394793.3.579.2. 593 2003 Unknown [id number] 2.16.840.1.302351.3.579.2. 593 2003 Unknown [id number] 2.16.840.1.605903.3.579.2. 593 2003 Unknown [id number] 2.16.840.1.379306.3.579.2. 593 2003 Unknown [id number] 2.16.840.1.732040.3.579.2. 593 2003 Unknown [id number] 2.16.840.1.111583.3.579.2. 593 2003 Unknown [id number] 2.16.840.1.915152.3.579.2. 593 2003 Unknown [id number] 2.16.840.1.757316.3.579.2. 593 2003 Unknown [id number] 2.16.840.1.027997.3.579.2. 593 2003 Unknown [id number] 2.16.840.1.856560.3.579.2. 593 2003 Unknown [id number] 2.16.840.1.618138.3.579.2. 593 2003 Unknown [id number] 2.16.840.1.876807.3.579.2. 593 2003 Unknown [id number] 2.16.840.1.339138.3.579.2. 593 2003 Unknown [id number] 2.16.840.1.510119.3.579.2. 593 2003 Unknown [id number] 2.16.840.1.811764.3.579.2. 593 2003 Unknown [id number] 2.16.840.1.507154.3.579.2. 593 2003 Unknown [id number] 2.16.840.1.916396.3.579.2. 593 2003 Unknown [id number] 2.16.840.1.297775.3.579.2. 593 2003 Unknown [id number] 2.16.840.1.376116.3.579.2. 593 2003 Unknown [id number] 2.16.840.1.238976.3.579.2. 593 2003 Unknown [id number] 2.16.840.1.216388.3.579.2. 593 2003 Unknown [id number] 2.16.840.1.224412.3.579.2. 593 2003 Unknown [id number] 2.16.840.1.087462.3.579.2. 593 2003 Unknown [id number] 2.16.840.1.517141.3.579.2. 727 2003 Unknown [id number] 2.16.840.1.863360.3.579.2. 727 2003 Unknown [id number] 2.16.840.1.069263.3.579.2. 1286 2003 Unknown [id number] 2.16.840.1.232749.3.579.2. 1286 2003 Unknown [id number] 2.16.840.1.333211.3.579.2. 1286 2003 Unknown [id number] 2.16.840.1.018607.3.579.2. 1286 2003 Unknown [id number] 2.16.840.1.591483.3.579.2. 1286 2003 Unknown [id number] 2.16.840.1.113365.3.579.2. 1286 2003 Unknown [id number] 2.16.840.1.255742.3.579.2. 1286 2003 Unknown [id number] 2.16.840.1.478209.3.579.2. 1286 2003 Unknown [id number] 2.16.840.1.224826.3.579.2. 1286 2003 Unknown [id number] 2.16.840.1.007516.3.579.2. 1286 2003 Unknown [id number] 2.16.840.1.045364.3.579.2. 1286 2003 Unknown [id number] 2.16.840.1.961209.3.579.2. 1286 2003 Unknown [id number] 2.16.840.1.552590.3.579.2. 1286 2003 Unknown [id number] 2.16.840.1.829300.3.579.2. 1259 2003 Unknown [id number] 2.16.840.1.309473.3.579.2. 1259 2003 Unknown [id number] 2.16.840.1.356346.3.579.2. 1259 2003 Unknown [id number] 2.16.840.1.865890.3.579.2. 1259 1976 Unknown [id number] 2.16.840.1.088474.3.579.2. 727 1959 Unknown [id number] Unknown [id number] 2.16.840.1.508645.3.579.2. 175 Social History Date Type Detail Facility Tobacco smoking status [facility] [place] Start: 04-03-2021 End: 10-18-2023 Sex Assigned At Female [facility] Start: 04-03-2021 End: 10-18-2023 Tobacco smoking status MAIS Occasional tobacco smoker [facility] Start: 04-03-2021 End: 10-18-2023 Tobacco use and exposure Smokeless tobacco non-user [facility] Start: 04-03-2021 End: 10-18-2023 Alcohol intake Lifetime non-drinker (finding) [facility] Start: 04-03-2021 End: 10-18-2023 History of Social function [facility] Housing Instability Unknown [facility] Start: 2003 Sex Assigned At Not on file P [facility] Start: 09-28-2023 Tobacco Comment Will smoke a c igarette if does not have a vape [facility] History of tobacco use Cigarette Smoker P [facility] Tobacco smoking stat [facility] Tobacco smoking consumption unknown [facility] Clinical Notes 11-28-2020 to 09-25-2024 Gogo Montesinos, MICHELLE - 09/25/2024 3:00 PM ESTTelephone Encounter - Tessa Roberst, [facility] - 11/03/2023 11:37 AM EDTTelephone Encounter - Tessa Roberts, [facility] - 11/03/2023 11:37 AM EDTPatient Instructions Note Date & Type Note Facility 09-25-2024 History of Present illness Narrative Reason for Appointment: Patient ID: Kemi Piper is a 19 y.o. female who presents for discuss cycles Patient presents today for Acute Visit.to discuss heavy cyles MEDICATIONS Current Outpatient Medications Medication Instructions albuterol HFA 90 mcg/act inhaler 2 puffs, Inhalation citalopram (CELEXA) 10 mg, Oral, Daily desmopressin (DDAVP) 0.2 MG tablet 2 qam and 1 prn desogestrel-ethinyl estradiol (Apri) 0.15-30 MG-MCG tablet 1 tablet, Oral, Daily, Take 1 tablet by mouth daily desvenlafaxine (Pristiq) 50 MG 24 hr tablet 1 tablet, Oral, Daily hyoscyamine (LEVSIN) 0.125 mg, Oral lamoTRIgine (LaMICtal) 100 MG tablet 1 tablet, Oral, 2 times daily medroxyPROGESTERone (Depo-Provera) 150 MG/ML suspension prefilled syringe injection syringe INJECT 1 ML (150 MG) INTO THE SHOULDER, THIGH, OR BUTTOCKS EVERY 3 (THREE) MONTHS. medroxyPROGESTERone (PROVERA) 10 mg, Oral, Daily ondansetron ODT (Zofran-ODT) [address] ONE TABLET ON THE TONGUE AND ALLOW TO DISSOLVE EVERY 6 HOURS NEEDED FOR 3 DAYS pantoprazole (PROTONIX) 40 mg, Oral Vit-Fe Fumarate-FA ( Plus) 27-1 MG tablet Every 24 hours ALLERGIES No Known Allergies PROBLEMS Active Ambulatory Problems Diagnosis Date Noted Third trimester 12/27/2022 ADHD (attention deficit hyperactivity disorder) ([facility]) 01/11/2012 Deterioration in school performance 01/21/2015 Migraines ([facility]) 11/28/2020 Nocturnal enuresis 12/12/2012 Psychogenic nonepileptic seizure ([facility]) 11/29/2020 Resolved Ambulatory Problems Diagnosis Date Noted No Resolved Ambulatory Problems No Additional Past Medical History HISTORY PAST MEDICAL HISTORY SOCIAL HISTORY No past medical history on file. Social History Tobacco Use Smoking status: Not on file Smokeless tobacco: Not on file Substance Use Topics Alcohol use: Not on file Drug use: Not on file FAMILY HISTORY No family history on file. SURGICAL HISTORY No past surgical history on file. REVIEW OF SYSTEMS Review of Systems: Review of Systems Constitutional: Negative. HENT: Negative. Eyes: Negative. Respiratory: Negative. Cardiovascular: Negative. Gastrointestinal: Negative. Genitourinary: Negative. Musculoskeletal: Negative. Skin: Negative. Neurological: Negative. All other systems reviewed and are negative. Hematological: Negative. Endocrine: Negative. Allergic/Immunologic: Negative. OBJECTIVE Objective: Physical Exam Constitutional: Appearance: Normal appearance. She is normal weight. HENT: Head: Normocephalic. Cardiovascular: Rate and Rhythm: Normal rate. Pulses: Normal pulses. Pulmonary: Effort: Pulmonary effort is normal. Breath sounds: Normal breath sounds. Abdominal: Palpations: Abdomen is soft. Musculoskeletal: General: Normal range of motion. Neurological: General: No focal deficit present. Mental Status: She is alert and oriented to person, place, and time. Psychiatric: Mood and Affect: Mood normal. Behavior: Behavior normal. Thought Content: Thought content normal. Judgment: Judgment normal. Vitals and nursing note reviewed. Vitals: Estimated body mass index is 21.47 kg/m as calculated from the following: Height as of 12/21/22: 5' 6 . Weight as of 03/23/24: 133 lb. BP: No LMP recorded. ASSESSMENT & PLAN ICD-10-CM 1. PCOS (polycystic ovarian syndrome) E28.2 TSH T4, free US Pelvis w/ TV hCG, quantitative, TSH T4, free CBC and differential Follicle stimulating hormone Luteinizing hormone Hemoglobin A1c DHEA-sulfate DHEA US Pelvis w/ TV DHEA medroxyPROGESTERone (Provera) 10 MG tablet CANCELED: hCG, quantitative, CANCELED: CBC and differential CANCELED: Follicle stimulating hormone CANCELED: Luteinizing hormone CANCELED: Hemoglobin A1c CANCELED: DHEA-sulfate CANCELED: DHEA CANCELED: DHEA Patient presents concerning heavy painful cycles. She states she has increased dark bleeding with discomfort. Patient has not been taking control and states she would like to get in the near future. We will order labs and US to assess her cycles and make sure there are no unusual conditions or concerns Documented by MICHELLE Forrest on behalf of: Wolfgang Hoffman DO documented in this encounter [facility] 11-03-2023 Miscellaneous Notes We received a letter from [email or web address] stating that the procedure on 09/27/23 was not covered. The Cholecystectomy was ordered by Dr Morgan on 09/27/23, the actual surgery wasn't performed until 10/03/23. I scanned the letter into her chart & spoke to Trinity, at the [employer] Main line. She could see the letter & she will get it to the [facility] specialist. documented in this encounter [facility] 11-03-2023 Telephone encounter Note We received a letter from [email or web address] stating that the procedure on 09/27/23 was not covered. The Cholecystectomy was ordered by Dr Morgan on 09/27/23, the actual surgery wasn't performed until 10/03/23. I scanned the letter into her chart & spoke to Trinity, at the [employer] Main line. She could see the letter & she will get it to the [facility] specialist. [facility] 10-18-2023 History of Present illness Narrative Subjective [...] Status post laparoscopic cholecystectomy [Z90.49] GERMAN DEAN [facility] General Surgery Vincent/Lopez This note was created with the assistance of a speech recognition program. While intending to generate a timely document that accurately reflects the content of the visit, no guarantee can be provided that every grammatical or spelling mistake has been or will be identified or corrected. Thank you for your understanding. GERMAN Dean 10/18/23 1014 documented in this encounter [facility] 09-28-2023 Note XR CHEST 2 VWS Procedure: Chest x-ray performed Number of views:2 History:Preop asthma Comparison:None Findings: The heart and lungs show no acute findings, and the mediastinum and manasa are grossly negative . Impression: 1. No acute change. Finalized by Umesh Bolaños MD on 09/28/2023 10:05 AM [facility] 09-28-2023 Note Procedure: Chest x-ray performed Number [...] in at the main lobby of the [facility]- registration desk is straight ahead as soon as you walk in. Tell them you are here for surgery. 2. If you have a Living Will/Durable Power of Destination Specialist for Health Care that is not on [...] after you have bathed. 5. NO nail kosovan/acrylic on at least one finger. If you are having a hand, wrist or foot surgery then all nail kosovan and artificial/acrylic nails must be removed from [...] please call the [facility] [facility] office at [phone], Mon.-Fri. 7 a.m.-3 p.m. Leave a voicemail [...] with your doctor. documented in this encounter [employer] 09-28-2023 Miscellaneous Notes Preoperative Education Checklist- General Surgery date: 10/03/23 Surgery time: 1100 a.m. Arrival time: 0900 a.m. 1. Bring a photo ID and your insurance card with you the day of surgery. You will check in at the main lobby of the [facility]- registration desk is straight ahead as soon as you walk in. Tell them you are here for surgery. 2. If you have a Living Will/Durable Power of Destination Specialist for Health Care that is not on [...] after you have bathed. 5. NO nail kosovan/acrylic on at least one finger. If you are having a hand, wrist or foot surgery then all nail kosovan and artificial/acrylic nails must be removed from [...] please call the [facility] Testing office at [phone], Mon.-Fri. 7 a.m.-3 p.m. Leave a voicemail [...] Patient verbalized understanding. documented in this encounter [facility] 09-28-2023 Nurse Note Preoperative Education Checklist- General Surgery date: 10/03/23 Surgery time: 1100 a.m. Arrival time: 0900 a.m. 1. Bring a photo ID and your insurance card with you the day of surgery. You will check in at the main lobby of the [facility]- registration desk is straight ahead as soon as you walk in. Tell them you are here for surgery. 2. If you have a Living Will/Durable Power of Destination Specialist for Health Care that is not on [...] after you have bathed. 5. NO nail kosovan/acrylic on at least one finger. If you are having a hand, wrist or foot surgery then all nail kosovan and artificial/acrylic nails must be removed from [...] please call the [facility] office at [phone], Mon.-Fri. 7 a.m.-3 p.m. Leave a voicemail [...] to the follow-up appointment with your doctor. [facility] [employer] [facility] 09-28-2023 Nurse Note Hibiclens and surgical instructions reviewed. Patient verbalized understanding. [facility] [employer] [facility] 09-27-2023 History of Present illness Narrative [...] confusion. Past Medical History: Diagnosis Date Seizures (CMS-HCC) PNES Past Surgical History: Procedure Laterality Date [...] patient/family/caregiver Referring and communicating with other health care team assistant Alo Morgan MD [facility] General Surgery Vincent/Lopez documented in this encounter [facility] 09-13-2023 Miscellaneous Notes Patient no called no showed for appointment with Dr. Morgan. I called Kemi to see if we could reschedule this appointment. Left message on voicemail to call the office back as I was unable to make contact. documented in this encounter [facility] 09-13-2023 Telephone encounter Note Patient no called no showed for appointment with Dr. Morgan. I called Kemi to see if we could reschedule this appointment. Left message on voicemail to call the office back as I was unable to make contact. [facility] 08-23-2023 Miscellaneous Notes Left message for patient to call back to reschedule appointment. documented in this encounter [facility] 08-23-2023 Telephone encounter Note Left message for patient to call back to reschedule appointment. [facility] 08-16-2023 Miscellaneous Notes Called patient in regard to gallstone referral from Dr. Burns's office. Left message on voicemail to call the office back to schedule appointment. Sandeep called the office back and scheduled an appointment with Dr. Morgan for 08-23-23. documented in this encounter [facility] 08-16-2023 Telephone encounter Note Called patient in regard to gallstone referral from Dr. Burns's office. Left message on voicemail to call the office back to schedule appointment. [facility] 08-16-2023 Telephone encounter Note Sandeep called the office back and scheduled an appointment with Dr. Morgan for 08-23-23. [facility] 11-29-2020 Note Discharge/Transfer S noah Name: Kemi Piper MR#: [id number] : [id number] Room #: 6221/01 Age/Sex: 15 y.o. female Admit Date: 11/28/2020 Admitting: Reggie Conner MD Discharge Date: 11/29/2020 Discharged from: [facility] Attending: Dr. Reggie Conner MD Final Diagnosis: [...] with vision loss. She was seen at [facility] Emergency department and observed with normal labs [...] opinion and she was admitted directly to [facility] Neurology. On the floor, patient complained of [...] Future Labs/Procedures Ex (more content not included)... 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 It last approximately 9m. Patient fell asleep afterwards and woke up around 1913. This episode differed from past ones in that it was related to vision loss. Family initially presented to [facility] where she was observed til vision improved. [...] This prompted family to seek evaluation at [facility] once more. They do note she did [...] mom identifies as Dr. Jesús Choe in [place]. They have an upcoming appointment on 12/02. 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 [facility] Evaluation + Plan note No data available for this section [facility] General Surgery [place] Evaluation note Diagnosis Biliary colic- Primary Calculus [...] status [facility] PCOS (polycystic ovarian syndrome)- Primary Polycystic ovaries documented in this encounter [facility] instructions No data available for this section [facility] Surgery [place] InstructionsNot on filedocumented in this encounter [facility] filedocumented in this [facility] filedocumented in this encounter [facility] filedocumented in this [facility] No data available for this section [facility] General Surgery [place] Summary Purpose Family History No Family History [...] ECG 12 lead Yo Berman MD [address] [place] [address] Referral ID Status Reason Start Date Expiration Date V isits Requested Visits Authorized [id number] Pending Review 09/28/2023 09/27/2024 1 1 Specialty Diagnoses / Procedures Referred By Contac t Referred To Contact Diagnoses Biliary colic Procedures Unlisted Procedure / Surgery Alo Morgan MD [address] [place] [address] Referral ID Status Reason Start Date Expiration Date V isits Requested Visits Authorized [id number] Pending Review 09/27/2023 09/26/2024 1 1 Additional Source Comments INFORMATION SOURCE (unrecogn ized section and content) DATE CREATED AUTHOR 11/30/2020 [facility] DATE CREATED AUTHOR AUTHOR'S ORGANIZ ATION 08/25/2021 [facility] DATE CREATED AUTHOR AUTHOR'S ORGANIZ ATION 01/14/2023 [facility] DATE CREATED AUTHOR AUTHOR'S ORGANIZ ATION 07/27/2023 [facility] DATE CREATED AUTHOR AUTHOR'S ORGANIZ ATION 09/12/2023 [facility] DATE CREATED AUTHOR AUTHOR'S ORGANIZ ATION 10/08/2023 [facility] DATE CREATED AUTHOR AUTHOR'S ORGANIZ ATION 10/19/2023 [facility] Ambulatory [facility] DATE CREATED AUTHOR AUTHOR'S ORGANIZ ATION 09/27/2024 [facility] dical Specialists EPIC Patient Care team informatio n (unrecognized section and content) Tavern Keeper Relationship Specialty Start Date End Date Rashard Burns MD [address] [place] [address] PCP - General Family Medicine 03/25/21 Tavern Keeper Relationship Specialty Start Date End Date Rashard Burns MD [address] [place] [address] PCP - General Family Medicine 03/25/21 Tavern Keeper Relationship Specialty Start Date End Date Rashard Burns MD [address] [place] [address] PCP - General Family Medicine 03/25/21 Tavern Keeper Relationship Specialty Start Date End Date Rashard Burns MD [address] [place] [address] PCP - General Family Medicine 03/25/21 Tavern Keeper Relationship Specialty Start Date End Date Rashard Burns MD [address] 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 [place] [address] PCP - General Family Medicine 03/25/21 Tavern Keeper Relationship Specialty Start Date End Date Rashard Burns MD [address] [place] [address] PCP - General Family Medicine 02/16/23 Tavern Keeper Relationship Specialty Start Date End Date Rashard Burns MD [address] [place] [place] [address] PCP - General Family Medicine 02/16/23 Reason for Visit (unrecogniz ed section and content) Reason Comments Cholelithiasis CHOLELITHIAIS, REFER RED BY DR. BURNS Reason Comments Post-op Post op davinci chol ecystectomy performed 10/03/23 at [facility] Reason Comments discuss cycles FOR RECORDS PERTAINING TO PATIENTS WHO ARE [...] BE BASED ON THE PRIMARY CLINICAL RECORDS. [facility] [employer] [facility]. provides no warranty or guarantee of the accuracy or completeness of information in this document.
[2024-10-01 10:42] LABS: Estimated Average Glucose 91 mg/dL; Glycohemoglobin A1C 4.8 % (4.5-6.2)
[2024-10-01 11:03] LABS: HCG Quantitative <1 mIU/mL; Thyroid Stimulating Hormone 1.384 uIU/mL (0.358-3.740)
[2024-10-02 04:07] LABS: FSH 9.8 mIU/mL (.)
[2024-10-04 14:08] LABS: DHEA, Serum 1160 ng/dL (31-701)
== END 2024-10-01 09:37 | disposition home or self-care (01) ==
LOC: LAB 09:40
PROVIDERS: PCP Family Medicine; Visit Provider Obstetrics & Gynecology
DX: E28.2 Polycystic ovarian syndrome (principal)
CPT/HCPCS: 36415; 82626; 82627; 83001; 83002; 83036; 84439; 84443; 84702; 85025

== ENCOUNTER 2024-10-29 09:40 | Outpatient (RCR) | payer OTHER, SELFPAY ==
[2024-10-29 10:53] LABS: HCG Quantitative 162 mIU/mL
[2024-10-31 09:31] LABS: HCG Quantitative 292 mIU/mL
== END 2024-11-05 13:03 | disposition home or self-care (01) ==
LOC: LAB 09:40
PROVIDERS: PCP Family Medicine; Visit Provider Obstetrics & Gynecology
DX: N92.6 Irregular menstruation, unspecified (principal)
CPT/HCPCS: 36415; 84702

== ENCOUNTER 2024-11-02 09:01 | Outpatient (RCR) | payer OTHER, SELFPAY ==
[2024-11-02 11:04] LABS: HCG Quantitative 494 mIU/mL
== END 2024-11-05 13:03 | disposition home or self-care (01) ==
LOC: LAB 09:01
PROVIDERS: PCP Family Medicine; Visit Provider Obstetrics & Gynecology
DX: N92.6 Irregular menstruation, unspecified (principal)
CPT/HCPCS: 36415; 84702

== ENCOUNTER 2024-11-24 15:18 | Emergency (ER) | payer OTHER, SELFPAY ==
[2024-11-24 15:22] VITALS: BP 127/86; PULSE 79; TEMP 36.6; O2SAT 98; BMI 16.2
--- OUTSIDE RECORDS SUMMARY | 2024-11-24 15:25 | XMS_ITS | CCD ---
Author Organization [facility] Care Team Providers Care Spectrographic Analyst Name Role Phone YASMIN ., DR ALLEN Consulting Unavailable YASMIN ., DR ALLEN Admitting Unavailable YASMIN ., DR ALLEN Attending Unavailable HOY ., DR WETZEL Primary Care Unavailable AYSMIN ., DR ALLEN Consulting Unavailable YASMIN ., DR ALLEN Attending Unavailable YASMIN ., DR ALLEN Admitting Unavailable HOY ., DR WETZEL Primary Care Unavailable DRAGAN, DR LUISA Garcia Consulting Unavailable YASMIN ., DR ALLEN Attending Unavailable [place], DR YO Scanlon Consulting Unavailable YASMIN ., [...] Unavailable HOY, RASHARD M Primary Care Unavailable ALNETTE, MENNATALLAH M Admitting Unavailable LANETTE, MENNATALLAH M [...] Unavailable Rashard Burns MD Primary Care Provider [phone] Rashard Burns MD Primary Care Provider [phone] WOLFGANG HOFFMAN Attending Unavailable WOLFGANG HOFFMAN Attending Unavailable Allergies Allergy Classification Reported Allergen(s) Allergy Type Date of Onset Reaction(s) Facility (1 source) amanda allergenic extract Drug Allergy [facility] Repository (1 source) Unable to obtain; Translations: [Unable to obtain] Propensity to adverse reactions (disorder) [facility] Repository (1 source) No Known Medication Allergies; Translations: [No Known Medication Allergies] Propensity to adverse reactions (disorder) [facility] Repository Medications Current Medications Medication Drug Class(es) Dates Sig (Normalized) Sig (Original) acetaminophen 500 mg oral tablet (2 sources) Start: 10-03-2023 take 2 tablets by mouth every six hours acetaminophen (TYLENOL EXTRA STRENGTH) 500 mg tablet Take 2 tablets (1,000 mg total) by mouth every 6 (six) hours. 30 tablet 0 10/03/2023 Active [id number] 200 actuat albuterol 0.09 mg/actuat metered dose inhaler (12 sources) beta2-Adrenergic Agonist albuterol HFA 90 mcg/act inhaler Inhale 2 puffs Active albuterol (PROVE NTIL HFA;VENTOLIN HFA) 90 mcg/actuation inhaler Inhale 2 puffs. 0 Active citalopram 10 mg oral tablet (8 sources) Serotonin Reuptake Inhibitor take 1 tablet by mouth in the morning citalopram (CeleXA) 10 MG tablet Take 10 mg by mouth in the morning. Active desmopressin acetate 0.2 mg oral tablet (8 sources) Vasopressin Analog, Factor VIII Activator desmopressin (DDAVP) 0.2 MG tablet 2 qam and 1 prn Active desogestrel 0.15 mg / ethinyl estradiol 0.03 mg oral tablet (8 sources) Progestin, Estrogen Start : 06-19 take 1 tablet by mouth once daily, then take 1 tablet by mouth once daily desogestrel-ethinyl estradiol (Apri) 0.15-30 MG-MCG tablet Indications: Encounter for BCP ( control pills) initial prescription Take 1 tablet by mouth Daily Take 1 tablet by mouth daily 84 tablet 3 06/19/2024 Active 24 hr desvenlafaxine succinate 50 mg extended release oral tablet (9 sources) Serotonin and Norepinephrine Reuptake Inhibitor Start [...] Active hyoscyamine sulfate 0.125 mg oral tablet (9 sources) Start : 07-05 hyoscyamine (Levsin) 0.125 [...] 10/03/2023 Active lamoTRIgine 100 mg oral tablet (13 sources) Mood Stabilizer, Anti-epileptic Agent Start : 05-16 take 1 tablet by mouth in the morning lamoTRIgine (LaMICtal) 100 MG tablet Take 1 tablet by mouth in the morning and 1 tablet before bedtime. 05/16/2023 Active medroxyPROGESTERone acetate 10 mg oral tablet (20 sources) Progestin Start : 09-25 End: 10-09 take 1 tablet by mouth once daily medroxyPROGESTERone (Provera) 10 MG tablet Indications: PCOS (polycystic ovarian syndrome) Take 1 tablet (10 mg) by mouth Daily for 14 days 14 tablet 09/25/2024 Active Start: 12-30-2023 medroxyPROGEST ERone (Depo-Provera) 150 [...] Active ondansetron 4 mg disintegrating oral tablet (13 sources) Serotonin-3 Receptor Antagonist Start: 06-01-2023 ondansetron ODT (Zofran-ODT) [address] ONE TABLET ON THE TONGUE AND ALLOW TO DISSOLVE EVERY 6 HOURS NEEDED FOR 3 DAYS 06/02/2023 Active pantoprazole 40 mg delayed release oral tablet (11 sources) Proton Pump Inhibitor Start: 06-01-2023 pantoprazole (ProtoNix) 40 MG EC tablet Take 40 mg by mouth 06/01/2023 Active Vit-Fe Fumarate-FA ( Plus) 27-1 MG tablet (8 sources) Vit-Fe Fumarate-FA ( Plus) 27-1 MG [...] Chronic Attention-deficit, conduct, and disruptive behavior disorders (9 sources) Attention deficit hyperactivity disorder; Translations: [Attention-deficit [...] 04-30-2022 Chronic Genitourinary symptoms and ill-defined conditions (8 sources) Nocturnal enuresis; Translations: [Nocturnal enuresis] Onset: 12-12-2012 01-26-2023 Chronic Headache; including migraine (9 sources) Migraine; Translations: [Migraine, unspecified, not intractable, without status migrainosus] Onset: 11-28-2020 07-05-2023 Chronic Menstrual disorders (4 sources) Irregular menstruation, unspecified; Translations: [IRREGULAR MENSTRUATION UNSPECIFIED] Onset: 08-24-2022 Chronic Miscellaneous mental health disorders (9 sources) Dissociative neurological symptom disorder; 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-2020 07-05-2023 Chronic Other aftercare (1 source) 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; Translations: [OTH [facility] CURRENT DRUG THERAPY] Onset: 11-08-2022 Episodic Other [...] applicable or unspecified; Translations: [MAT CARE OTH ME FTL GRTH 3RD TM UNS] Onset: 12-31-2022 [...] TRI] Onset: 12-20-2022 Episodic Other endocrine disorders (4 sources) Polycystic ovary syndrome; Translations: [Polycystic ovarian [...] Problem Date Documented Date Episodic/Chronic Administrative/social admission (8 sources) Deterioration in school performance; Translations: [Other [...] 05-31-2022 Episodic Other and delivery including normal (20 sources) Encounter for supervision of normal , [...] Test Name Value Interpretation Reference Range Facility [facility] PREG QUANT HCGon 11-02- 025 HCG QUANTITATIVE 494 mIU/mL [facility] Comment on above: 5-50 0.2-1 WEEK 50-500 1-2 WEEKS 100-5,000 2-3 WEEKS 500-10,000 3-4 WEEKS 1,000-50,000 4-5 WEEKS 10,000-100,000 5-6 WEEKS 15,000-200,000 6-8 WEEKS 10,000-100,000 2-3 MONTHS [facility] CBC WITH AUTO DIFFon BASOPHILS ABSOLUTE AUTO 0.1 [facility] Basophils/100 WBC (Bld) 0.7 % 0.2 - 2.0 % [facility] Eosinophils/100 WBC (Bld) 4.9 % 0.9 - 7.0 % [facility] Erythrocyte distribution width (RBC) [Ratio] 11.8 % 11.0 - 15.0 % [facility] Hematocrit (Bld) [Volume fraction] 44.7 % 36.0 - 48.0 % [facility] Hemoglobin (Bld) [Mass/Vol] 15.7 g/dL 12.0 - 16.0 g/dL [facility] IMMATURE GRANULOCYTES ABS AUTO 0.02 [facility] Immature granulocytes/100 WBC (Bld) 0.3 % 0.0 - 0.5 % [facility] LYMPHOCYTES ABSOLUTE AUTO 3.1 [facility] Lymphocytes/100 WBC (Bld) 42 % 20.5 - 60.0 % [facility] MCH (RBC) [Entitic mass] 29.5 pg 26.7 - 34.0 pg [facility] MCHC (RBC) [Mass/Vol] 35.1 g/dL 29.9 - 35.2 g/dL [facility] MCV (RBC) [Entitic vol] 84 fL 81.0 - 99.0 fL [facility] MONOCYTES ABSOLUTE AUTO 0.5 [facility] Monocytes/100 WBC (Bld) 7.3 % 1.7 - 12.0 % [facility] NEUTROPHILS ABSOLUTE AUTO 3.3 [facility] Neutrophils/100 WBC (Bld) 44.8 % 43.0 - 75.0 % [facility] Platelet mean volume (Bld) [Entitic vol] 11.7 fL 9.5 - 13.5 fL [facility] EO # 0.4 [facility] PLT 180 [facility] RBC 5.32 [facility] WBC 7.3 [facility] HCG ( test) Ql (U)o n 10-03-2023 Beta HCG ( test) Ql (U) Negative Normal NEG [facility] Comment on above: Performed By: #### 2 106-3 #### [facility] ([id number]) [address] [facility]], [place] [address] Surgical Pathologyon 024 Surgical Pathology Normal [facility] Comment on above: Result Comment: [facility] [address] [place] [address] Surgical Pathology Consultation Patient Name:KEMI PIPER:2005 (Age: 18)Gender:FTaken:4Reported:10/06/2023hysician(s):Louise Morgan MD ([phone])Copy To: Rec. #:[id number]: #[id number] Final Pathologic Diagnosis Gallbladder, cholecystectomy: - Chronic cholecystitis and cholesterolosis. - Benign reactive lymph node. Report Electronically Signed Out eak/10/06/2023Serena Quintanilla MD Interpretation performed at [facility], [address] [place] [address], License number: [id number]. Clinical History Biliary colic. Gross Description Received [...] duct margin, bisected lymph node and a business services representative section of the gallbladder neck are submitted in cassette A with additional sections from the gallbladder are submitted in cassette B (to include polypoid like projection). (2, ss, [id number], A???B, m2) [facility]EAK Specimen(s) Received Gallbladder Fee Codes(s): 1; 19794 BASIC METABOLIC PANLon 09-28 Anion gap [Moles/Vol] 7 mmol/L Normal 5-15 [facility] Comment on above: Performed By: #### C BCA BMP, LIVR #### [facility] ([id number]) [address] [place] [address] Calcium [Mass/Vol] 9.0 mg/dL Normal 8.5-10.5 [facility] Comment on above: Performed By: #### C BCA BMP, LIVR #### [facility] ([id number]) [address] [place] [address] Chloride [Moles/Vol] 109 mmol/L Normal 98-109 [facility] Comment on above: Performed By: #### C BCA BMP, LIVR #### [facility] ([id number]) [address] [place] [address] CO2 [Moles/Vol] 27 mmol/L Normal 22-32 [facility] Comment on above: Performed By: #### C BCA, BMP, LIVR #### [facility] ([id number]) [address] [place] [address] Creatinine [Mass/Vol] 0.98 mg/dL Normal 0.40-1.00 [facility] Comment on above: Result Comment: METH OD TRACEABLE TO IDMS STANDARD Performed By: #### C BCA BMP, LIVR #### [facility] ([id number]) [address] [place] [address] GFR/1.73 sq M.predicted among non-blacks MDRD (S/P/Bld) [Vol rate/Area] 85 mL/min/{1.73_m2} Normal >59 [facility] Comment on above: Result Comment: Reported eGFR is based on the CKD-EPI 2020 equation that does not use a race coefficient. Performed By: #### C BCA, BMP, LIVR #### [facility] ([id number]) [address] [place] [address] Glucose [Mass/Vol] 82 mg/dL Normal 65-99 [facility] Comment on above: Performed By: #### C BCA, BMP, LIVR #### [facility] ([id number]) [address] [place] [address] Potassium [Moles/Vol] 4.0 mmol/L Normal 3.5-5.0 [facility] Comment on above: Performed By: #### C BCA, BMP, LIVR #### [facility] ([id number]) [address] [place] [address] Sodium [Moles/Vol] 143 mmol/L Normal 134-146 [facility] Comment on above: Performed By: #### C BCA, BMP, LIVR #### [facility] ([id number]) [address] [place] [address] Urea nitrogen [Mass/Vol] 7 mg/dL Normal 5-23 [facility] Comment on above: Performed By: #### C BCA, BMP, LIVR #### [facility] ([id number]) [address] [place] [address] Basic Metabolic Panelon -2 Anion gap [Moles/Vol] 7 mmol/L 5 - 15 mmol/L [facility] Calcium [Mass/Vol] 9.0 mg/dL 8.5 - 10. 5 mg/dL [facility] Chloride [Moles/Vol] 109 mmol/L 98 - 109 mmol/L [facility] CO2 [Moles/Vol] 27 mmol/L 22 - 32 mmol/L [facility] Creatinine [Mass/Vol] 0.98 mg/dL 0.40 - 1.00 mg/dL [facility] Comment on above: METHOD [facility] STANDARD eGFR (CKD-EPI)non-race dependent 85 - PINF [facility] Comment on above: Reported eGFR is based on the CKD-EPI 2020 equation that does not use a race coefficient. Glucose [Mass/Vol] 82 mg/dL 65 - 99 mg/dL [facility] Potassium [Moles/Vol] 4.0 mmol/L 3.5 - 5.0 mmol/L [facility] Sodium [Moles/Vol] 143 mmol/L 134 - 146 mmol/L [facility] Urea nitrogen [Mass/Vol] 7 mg/dL 5 - 23 mg/dL [facility] CBC AND AUTO DIFFon 09-28-19 ABSOLUTE BASOPHIL 0.0 X10E9/L Normal 0.0-0.2 [facility] Comment on above: Performed By: #### C BCA, BMP, LIVR #### [facility] ([id number]) [address] [place] [address] ABSOLUTE NEUTROPHIL 2.8 X10E9/L Normal 1.5-6.6 [facility] Comment on above: Performed By: #### C BCA, BMP, LIVR #### [facility] ([id number]) [address] [place] [address] Basophils/100 WBC (Bld) 0.6 % Normal [facility] Comment on above: Performed By: #### C BCA, BMP, LIVR #### [facility] ([id number]) [address] [place] [address] Eosinophils (Bld) [#/Vol] 0.2 10*3/uL Normal 0.0-0.4 [facility] Comment on above: Performed By: #### C TIMUR BMP, LIVR #### [facility] ([id number]) [address] [place] [address] Eosinophils/100 WBC (Bld) 2.8 % Normal [facility] Comment on above: Performed By: #### C TIMUR BMP, LIVR #### [facility] ([id number]) [address] [place] [address] Erythrocyte distribution width (RBC) [Ratio] 12.2 % Normal 11.5-15.0 [facility] Comment on above: Performed By: #### C TIMUR BMP, LIVR #### [facility] ([id number]) [address], [facility] [address] [place] [address] Hematocrit (Bld) [Volume fraction] 39.7 % Normal 35-47 [facility] Comment on above: Performed By: #### C DEANGELO DING, LIVR #### [facility] ([id number]) [address], [address] [place] [address] Hemoglobin (Bld) [Mass/Vol] 13.6 g/dL Normal 11.7-15.5 [facility] Comment on above: Performed By: #### C TIMUR BMP, LIVR #### [facility] ([id number]) [address], [address] [place] [address] Lymphocytes (Bld) [#/Vol] 2.2 10*3/uL Normal 1.0-3.5 [facility] Comment on above: Performed By: #### C TIMUR, BMP, LIVR #### [facility] ([id number]) [address], [address] [place] [address] Lymphocytes/100 WBC (Bld) 38.4 % Normal [facility] Comment on above: Performed By: #### C BCA, BMP, LIVR #### [facility] ([id number]) [address], [address] [place] [address] MCH (RBC) [Entitic mass] 29.6 pg Normal 27-34 [facility] Comment on above: Performed By: #### C BCA, BMP, LIVR #### [facility] ([id number]) [address], [address] [place] [address] MCHC (RBC) [Mass/Vol] 34.3 g/dL Normal 32-36 [facility] Comment on above: Performed By: #### C BCA, BMP, LIVR #### [facility] ([id number]) [address], [address] [place] [address] MCV (RBC) [Entitic vol] 87 fL Normal 80-100 [facility] Comment on above: Performed By: #### C BCA, BMP, LIVR #### [facility] ([id number]) [address], [address] [place] [address] Monocytes (Bld) [#/Vol] 0.5 10*3/uL Normal 0-0.9 [facility] Comment on above: Performed By: #### C BCA, BMP, LIVR #### [facility] ([id number]) [address], [address] [place] [address] Monocytes/100 WBC (Bld) 9.2 % Normal [facility] Comment on above: Performed By: #### C BCA, BMP, LIVR #### [facility] ([id number]) [address] [place] [address] Neutrophils/100 WBC (Bld) 49.0 % Normal [facility] Comment on above: Performed By: #### C BCA, BMP, LIVR #### [facility] ([id number]) [address] [place] [address] Platelet mean volume (Bld) [Entitic vol] 10.8 fL Normal 7-12 [facility] Comment on above: Performed By: #### DEANGELO Pruett BCA, LIVR #### [facility] ([id number]) [address], [address] [address] Platelets (Bld) [#/Vol] 212 10*3/uL Normal 150-450 [facility] Comment on above: Performed By: #### DEANGELO Pruett BCA, LIVR #### [facility] ([id number]) [address], [address] [address] RBC COUNT 4.60 X10E12/L Normal 3.80-5.20 [facility] Comment on above: Performed By: #### DEANGELO Pruett BCA, LIVR #### [facility] ([id number]) [address], [address] [address] WBC (Bld) [#/Vol] 5.7 10*3/uL Normal 4.0-11.0 [facility] Comment on above: Performed By: #### DEANGELO Pruett BCA, LIVR #### [facility] ([id number]) [address], [address] [address] CBC auto differentialon 09-09 Basophils (Bld) [#/Vol] 0.0 10*3/uL [facility] Basophils/100 WBC (Bld) 0.6 % [facility] Eosinophils (Bld) [#/Vol] 0.2 10*3/uL [facility] Eosinophils/100 WBC (Bld) 2.8 % [facility] Erythrocyte distribution width (RBC) [Ratio] 12.2 % 11.5 - 15.0 % [facility] Hematocrit (Bld) [Volume fraction] 39.7 % 35 - 47 % [facility] Hemoglobin (Bld) [Mass/Vol] 13.6 g/dL 11.7 - 15.5 g/dL [facility] Lymphocytes (Bld) [#/Vol] 2.2 10*3/uL [facility] Lymphocytes/100 WBC (Bld) 38.4 % [facility] MCH (RBC) [Entitic mass] 29.6 pg 27 - 34 pg [facility] MCHC (RBC) [Mass/Vol] 34.3 g/dL 32 - 36 g/dL [facility] MCV (RBC) [Entitic vol] 87 fL 80 - 100 fL [facility] Monocytes (Bld) [#/Vol] 0.5 10*3/uL [facility] Monocytes/100 WBC (Bld) 9.2 % [facility] Neutrophils (Bld) [#/Vol] 2.8 10*3/uL [facility] Neutrophils/100 WBC (Bld) 49.0 % [facility] Platelet mean volume (Bld) [Entitic vol] 10.8 fL 7 - 12 fL [facility] Platelets (Bld) [#/Vol] 212 10*3/uL [facility] RBC (Bld) [#/Vol] 4.60 10*6/uL [facility] WBC corrected for nucl RBC Auto (Bld) [#/Vol] 5.7 [facility] ECG 12 leadon 09-28-2023 TRACEMASTERVUE [facility] LIVER PANELon 09-28-2023 Albumin [Mass/Vol] 4.4 g/dL Normal 3.2-5.3 [facility] Comment on above: Performed By: #### C DEANGELO DING, LIVR #### [facility] ([id number]) [address], [address] [place] [address] ALP [Catalytic activity/Vol] 65 U/L Normal 39-130 [facility] Comment on above: Performed By: #### C TIMUR BMP, LIVR #### [facility] ([id number]) [address] [place] [address] ALT [Catalytic activity/Vol] 18 U/L Normal 0-31 [facility] Comment on above: Performed By: #### C BCA, BMP, LIVR #### [facility] ([id number]) [address], [address] [place] [address] AST [Catalytic activity/Vol] 16 U/L Normal 0-41 [facility] Comment on above: Performed By: #### C BCA, BMP, LIVR #### [facility] ([id number]) [address], [facility] [address] [place] [address] Bilirubin [Mass/Vol] 0.5 mg/dL Normal 0.3-1.2 [facility] Comment on above: Performed By: #### C TIMUR BMP, LIVR #### [facility] ([id number]) [address], [address] [place] [address] Bilirubin.direct [Mass/Vol] 0.2 mg/dL Normal 0.0-0.4 [facility] Comment on above: Performed By: #### C TIMUR, BMP, LIVR #### [facility] ([id number]) [address], [facility] [address] [place] [address] Protein [Mass/Vol] 6.6 g/dL Normal 6.0-8.0 [facility] Comment on above: Performed By: #### Seble DING, BMP, LIVR #### [facility] ([id number]) [address], [address] [place] [address] Liver panelon 09-28-2023 Albumin [Mass/Vol] 4.4 g/dL 3.2 - 5.3 g/dL [facility] ALP [Catalytic activity/Vol] 65 U/L 39 - 130 U/L [facility] ALT No additional P-5'-P [Catalytic activity/Vol] 18 U/L 0 - 31 U/L [facility] AST [Catalytic activity/Vol] 16 U/L 0 - 41 U/L [facility] Bilirubin [Mass/Vol] 0.5 mg/dL 0.3 - 1.2 mg/dL [facility] Bilirubin.direct [Mass/Vol] 0.2 mg/dL 0.0 - 0.4 mg/dL [facility] [employer] Protein [Mass/Vol] 6.6 g/dL 6.0 - 8.0 g/dL [facility] No Panel Informationon 09-28 [facility] Chest PA and Lateralon Umehs Bolaños MD - 09/28/2023 Procedure: Chest x-ray performed Number of views:2 History:Preop asthma Comparison:None Findings: The heart and lungs show no acute findings, and the mediastinum and manasa are grossly negative . Impression: 1. No acute change. 5 Finalized by Umesh Bolaños MD on 09/28/2023 10:05 AM [facility] Radiology Study observation (narrative) [facility] XR Chest PA and LateralOrder ed By: Umesh Bolaños on 09-28-2023 [facility] Work Phone: Basic Metab w/rfx MGon 08-31 Anion gap [Moles/Vol] 8 mmol/L Low 9-17 [facility] Comment on above: Performed By: #### B MPX, CDP #### [facility] [address] [place] [phone] Hearing Specialist: Quirino Valladares MD Calcium [Mass/Vol] 8.3 mg/dL Low 8.6-10.4 [facility] Comment on above: Performed By: #### B MPX, CDP #### [facility] [address] [place], [place] [id number] Hearing Specialist: Quirino Valladares MD Chloride [Moles/Vol] 107 mmol/L Normal 98-107 [facility] Comment on above: Performed By: #### B MPX, CDP #### [employer] [facility] [place], [place] [id number] Hearing Specialist: Quirino Valladares MD CO2 [Moles/Vol] 24 mmol/L Normal 20-31 [facility] Comment on above: Performed By: #### B MPX, CDP #### [facility] [address] [place] [id number] Hearing Specialist: Quirino Valladares MD Creatinine [Mass/Vol] 0.9 mg/dL Normal 0.5-0.9 [facility] Comment on above: Performed By: #### B MPX, CDP #### [address] [address] Hearing Specialist: Quirino Valladares MD GFR/1.73 sq M.predicted among non-blacks MDRD (S/P/Bld) [Vol rate/Area] mL/min/{1.73_m2} Normal >60 [facility] Comment on above: Result Comment: These results [...] Performed By: #### B MPX, CDP #### [address] [address] Hearing Specialist: Quirino Valladares MD Glucose [Mass/Vol] 88 mg/dL Normal 70-99 [facility] Comment on above: Performed By: #### B MPX, CDP #### [facility] [employer] [address] [place] [phone] Hearing Specialist: Quirino Valladares MD Potassium [Moles/Vol] 3.6 mmol/L Low 3.7-5.3 [facility] Comment on above: Performed By: #### B MPX, CDP #### [facility] [address] [place] [phone] Hearing Specialist: Quirino Valladares MD Sodium [Moles/Vol] 139 mmol/L Normal 135-144 [facility] Comment on above: Performed By: #### B MPX, CDP #### [place] [address] Hearing Specialist: Quirino Valladares MD Urea nitrogen [Mass/Vol] 9 mg/dL Normal 6-20 [facility] Comment on above: Performed By: #### B MPX, CDP #### [place] [address] Hearing Specialist: Quirino Valladares MD CBC with Diffon 08-31-2023 Abs. Basophil 0.04 k/uL Normal 0.00-0.20 [facility] Comment on above: Performed By: #### B MPX, CDP #### [place] [address] Hearing Specialist: Quirino Valladares MD Abs.Imm.Granulocyte <0.03 Normal 0.00-0.30 [facility] [place] Comment on above: Performed By: #### B MPX, CDP #### [address] [address] Hearing Specialist: Quirino Valladares MD Abs.Neutrophil (Seg) 2.46 k/uL Normal 1.80-8.00 [facility] Comment on above: Performed By: #### B MPX, CDP #### [address] [address] Hearing Specialist: Quirino Valladares MD Basophils/100 WBC (Bld) 1 % Normal 0-2 [facility] Comment on above: Performed By: #### B MPX, CDP #### [address] [address] Hearing Specialist: Quirino Valladares MD Eosinophils (Bld) [#/Vol] 0.11 10*3/uL Normal 0.00-0.44 [facility] Comment on above: Performed By: #### B MPX, CDP #### [facility] [place] [address] Hearing Specialist: Quirino Valladares MD Eosinophils/100 WBC (Bld) 2 % Normal 1-4 [facility] Comment on above: Performed By: #### B MPX, CDP #### [facility] [address] [place] [address] Hearing Specialist: Quirino Valladares MD Erythrocyte distribution width (RBC) [Ratio] 11.9 % Normal 11.8-14.4 [facility] Comment on above: Performed By: #### B MPX, CDP #### [facility] [address] [place] [phone] Hearing Specialist: Quirino Valladares MD Hematocrit (Bld) [Volume fraction] 36.8 % Normal 36.3-47.1 [facility] Comment on above: Performed By: #### B MPX, CDP #### [address] [address] Hearing Specialist: Quirino Valladares MD Hemoglobin (Bld) [Mass/Vol] 12.6 g/dL Normal 11.9-15.1 [facility] Comment on above: Performed By: #### B MPX, CDP #### [address] [address] Hearing Specialist: Quirino Valladares MD Immature granulocytes/100 WBC (Bld) 0 % Normal 0 [facility] Comment on above: Performed By: #### B MPX, CDP #### [facility] [address] [place] [address] Hearing Specialist: Quirino Valladares MD Lymphocytes (Bld) [#/Vol] 2.61 10*3/uL Normal 1.20-5.20 [facility] Comment on above: Performed By: #### B MPX, CDP #### [address] [address] Hearing Specialist: Quirino Valladares MD Lymphocytes/100 WBC (Bld) 45 % Normal 25-45 [facility] Comment on above: Performed By: #### B MPX, CDP #### [address] [address] Hearing Specialist: Quirino Valladares MD MCH (RBC) [Entitic mass] 29.6 pg Normal 25.2-33.5 [facility] Comment on above: Performed By: #### B MPX, CDP #### [address] [address] Hearing Specialist: Quirino Valladares MD MCHC (RBC) [Mass/Vol] 34.2 g/dL Normal 28.4-34.8 [facility] Comment on above: Performed By: #### B MPX, CDP #### [address] [address] Hearing Specialist: Quirino Valladares MD MCV (RBC) [Entitic vol] 86.4 fL Normal 82.6-102.9 [facility] Comment on above: Performed By: #### B MPX, CDP #### [address] [address] Hearing Specialist: Quirino Valladares MD Monocytes (Bld) [#/Vol] 0.52 10*3/uL Normal 0.10-1.40 [facility] Comment on above: Performed By: #### B MPX, CDP #### [address] [address] Hearing Specialist: Quirino Valladares MD Monocytes/100 WBC (Bld) 9 % High 2-8 [facility] Comment on above: Performed By: #### B MPX, CDP #### [address] [address] Hearing Specialist: Quirino Valladares MD Neutrophil (Seg) 43 % Normal 34-64 [facility] Comment on above: Performed By: #### B MPX, CDP #### [facility] [address] [place] [address] Hearing Specialist: Quirino Valladares MD NRBC Automated 0.0 per 100 WBC Normal 0.0 [facility] [place] Comment on above: Performed By: #### B MPX, CDP #### [address] [address] Hearing Specialist: Quirino Valladares MD Platelet mean volume (Bld) [Entitic vol] 12.3 fL Normal 8.1-13.5 [facility] Comment on above: Performed By: #### B MPX, CDP #### [address] [address] Hearing Specialist: Quirino Valladares MD Platelets (Bld) [#/Vol] 210 10*3/uL Normal 138-453 [facility] Comment on above: Performed By: #### B MPX, CDP #### [address] [address] Hearing Specialist: Quirino Valladares MD RBC (Bld) [#/Vol] 4.26 10*6/uL Normal 3.95-5.11 [facility] [place] Comment on above: Performed By: #### B MPX, CDP #### [address] [address] Hearing Specialist: Quirino Valladares MD WBC (Bld) [#/Vol] 5.8 10*3/uL Normal 4.5-13.5 [facility] [place] Comment on above: Performed By: #### B MPX, CDP #### [address] [address] Hearing Specialist: Quirino Valladares MD Basic Metab w/rfx MGon 08-30 Potassium [Moles/Vol] 3.5 mmol/L Low 3.7-5.3 [facility] Comment on above: Performed By: #### C DP, BMPX, MG #### [employer] [address] [place] [address] Hearing Specialist: Quirino Valladares MD Anion gap [Moles/Vol] 8 mmol/L Low 9-17 [facility] Comment on above: Performed By: #### C DP, BMPX, MG #### [facility] [address] [place] [address] Hearing Specialist: Quirino Valladares MD Calcium [Mass/Vol] 8.8 mg/dL Normal 8.6-10.4 [facility] Comment on above: Performed By: #### C DP, BMPX, MG #### [facility] [address] [place] [address] Hearing Specialist: Quirino Valladares MD Chloride [Moles/Vol] 105 mmol/L Normal 98-107 [facility] Comment on above: Performed By: #### C DP, BMPX, MG #### [facility] [address] [place] [address] Hearing Specialist: Quirino Valladares MD CO2 [Moles/Vol] 23 mmol/L Normal 20-31 [facility] [place] Comment on above: Performed By: #### C DP, BMPX, MG #### [employer] [address] [place] [address] Hearing Specialist: Quirino Valladares MD Creatinine [Mass/Vol] 0.8 mg/dL Normal 0.5-0.9 [facility] Comment on above: Performed By: #### C DP, BMPX, MG #### [employer] [address] [place] [address] Hearing Specialist: Quirino Valladares MD GFR/1.73 sq M.predicted among non-blacks MDRD (S/P/Bld) [Vol rate/Area] mL/min/{1.73_m2} Normal >60 [facility] Comment on above: Result Comment: These results [...] By: #### C DP, BMPX, MG #### [address] [address] Hearing Specialist: Quirino Valladares MD Glucose [Mass/Vol] 73 mg/dL Normal 70-99 [facility] [place] Comment on above: Performed By: #### C DP, BMPX, MG #### [address] [address] Hearing Specialist: Quirino Valladares MD Sodium [Moles/Vol] 136 mmol/L Normal 135-144 [facility] [place] Comment on above: Performed By: #### C DP, BMPX, MG #### [facility] [address] [place] [address] Hearing Specialist: Quirino Valladares MD Urea nitrogen [Mass/Vol] 7 mg/dL Normal 6-20 [facility] Comment on above: Performed By: #### C DP, BMPX, MG #### [facility] [address] [place] [address] Hearing Specialist: Quirino Valladares MD CBC with Diffon 08-30-2023 Abs. Basophil 0.03 k/uL Normal 0.00-0.20 [facility] Comment on above: Performed By: #### C DP, BMPX, MG #### [address] [address] Hearing Specialist: Quirino Valladares MD Abs.Imm.Granulocyte <0.03 Normal 0.00-0.30 [facility] Comment on above: Performed By: #### C DP, BMPX, MG #### [facility] [address] [place] [address] Hearing Specialist: Quirino Valladares MD Abs.Neutrophil (Seg) 2.17 k/uL Normal 1.80-8.00 [facility] Comment on above: Performed By: #### C DP, BMPX, MG #### [facility] [address] [place] [address] Hearing Specialist: Quirino Valladares MD Basophils/100 WBC (Bld) 1 % Normal 0-2 [facility] Comment on above: Performed By: #### C DP, BMPX, MG #### [place] [address] Hearing Specialist: Quirino Valladares MD Eosinophils (Bld) [#/Vol] 0.08 10*3/uL Normal 0.00-0.44 [facility] Comment on above: Performed By: #### C DP, BMPX, MG #### [facility] [address] [place] [address] Hearing Specialist: Quirino Valladares MD Eosinophils/100 WBC (Bld) 2 % Normal 1-4 [facility] Comment on above: Performed By: #### C DP, BMPX, MG #### [facility] [address] [place] [address] Hearing Specialist: Quirino Valladares MD Erythrocyte distribution width (RBC) [Ratio] 11.9 % Normal 11.8-14.4 [facility] Comment on above: Performed By: #### C DP, BMPX, MG #### [facility] [address] [place] [address] Hearing Specialist: Quirino Valladares MD Hematocrit (Bld) [Volume fraction] 40.0 % Normal 36.3-47.1 [facility] Comment on above: Performed By: #### C DP, BMPX, MG #### [address] [address] Hearing Specialist: Quirino Valladares MD Hemoglobin (Bld) [Mass/Vol] 13.6 g/dL Normal 11.9-15.1 [facility] Comment on above: Performed By: #### C DP, BMPX, MG #### [address] [address] Hearing Specialist: Quirino Valladares MD Immature granulocytes/100 WBC (Bld) 0 % Normal 0 [facility] Comment on above: Performed By: #### C DP, BMPX, MG #### [address] [address] Hearing Specialist: Quirino Valladares MD Lymphocytes (Bld) [#/Vol] 1.69 10*3/uL Normal 1.20-5.20 [facility] Comment on above: Performed By: #### C DP, BMPX, MG #### [facility] [address] [place] [address] Hearing Specialist: Quirino Valladares MD Lymphocytes/100 WBC (Bld) 38 % Normal 25-45 [facility] Comment on above: Performed By: #### C DP, BMPX, MG #### [facility] [address] [place] [address] Hearing Specialist: Quirino Valladares MD MCH (RBC) [Entitic mass] 29.6 pg Normal 25.2-33.5 [facility] Comment on above: Performed By: #### C DP, BMPX, MG #### [facility] [address] [place] [address] Hearing Specialist: Quirino Valladares MD MCHC (RBC) [Mass/Vol] 34.0 g/dL Normal 28.4-34.8 [facility] Comment on above: Performed By: #### C DP, BMPX, MG #### [address] [address] Hearing Specialist: Quirino Valladares MD MCV (RBC) [Entitic vol] 87.0 fL Normal 82.6-102.9 [facility] Comment on above: Performed By: #### C DP, BMPX, MG #### [address] [address] Hearing Specialist: Quirino Valladares MD Monocytes (Bld) [#/Vol] 0.47 10*3/uL Normal 0.10-1.40 [facility] Comment on above: Performed By: #### C DP, BMPX, MG #### [place] [address] Hearing Specialist: Quirino Valladares MD Monocytes/100 WBC (Bld) 11 % High 2-8 [facility] Comment on above: Performed By: #### C DP, BMPX, MG #### [address] [address] Hearing Specialist: Quirino Valladares MD Neutrophil (Seg) 48 % Normal 34-64 [facility] Comment on above: Performed By: #### C DP, BMPX, MG #### [address] [address] Hearing Specialist: Quirino Valladares MD NRBC Automated 0.0 per 100 WBC Normal 0.0 [facility] Comment on above: Performed By: #### C DP, BMPX, MG #### [facility] [address] [place] [address] Hearing Specialist: Quirino Valladares MD Platelet mean volume (Bld) [Entitic vol] 11.8 fL Normal 8.1-13.5 [facility] Comment on above: Performed By: #### C DP, BMPX, MG #### [facility] [address] [place] [address] Hearing Specialist: Quirino Valladares MD Platelets (Bld) [#/Vol] 214 10*3/uL Normal 138-453 [facility] Comment on above: Performed By: #### C DP, BMPX, MG #### [facility] [address] [place] [address] Hearing Specialist: Quirino Valladares MD RBC (Bld) [#/Vol] 4.60 10*6/uL Normal 3.95-5.11 [facility] [place] Comment on above: Performed By: #### C DP, BMPX, MG #### [facility] [address] [place] [address] Hearing Specialist: Quirino Valladares MD WBC (Bld) [#/Vol] 4.4 10*3/uL Low 4.5-13.5 [facility] Comment on above: Performed By: #### C DP, BMPX, MG #### [facility] [address] [place] [address] Hearing Specialist: Quirino Valladares MD Lamotrigineon 08-30-2023 Lamotrigine <1.0 Low 3.0-15.0 [facility] Comment on above: Result Comment: Neither a [...] needed. Performed By: #### L MELBA #### [address] [address] Hearing Specialist: Quirino Valladares MD Magnesiumon 08-30-2023 Magnesium [Mass/Vol] 2.0 mg/dL Normal 1.6-2.6 [facility] Comment on above: Performed By: #### C DP, BMPX, MG #### [facility] [address] [place] [address] Hearing Specialist: Quirino Valladares MD RAD - Ultrasound Reporton RAD - Ultrasound Report [id number] 0#[id number] Normal [facility] Physician Referralon 023 Physician Referral [id number] 9D#[id number] Normal [facility] CBC W MANUAL DIFFon 01-05-20 23 ANISOCYTOSIS SLIGHT Normal [facility] Comment on above: Performed By: #### C OSORIO #### [facility] [address] [place] [address] Dr. Juan Jose Banda ATYPICAL LYMPH # 0.36 103/ul Normal [facility] Comment on above: Performed By: #### C OSORIO #### [facility] [address] [place] [address] Dr. Juan Jose Banda ATYPICAL LYMPH % 4 % Normal [facility] Comment on above: Performed By: #### C OSORIO #### [facility] [address] [place] [address] Dr. Juan Jose Banda BAND # 0.0 103/ul Normal 0.0-0.3 [facility] Comment on above: Performed By: #### C OSORIO #### [facility] [address] [place] [address] Dr. Juan Jose Banda BAND % 0 % Normal 0-5 [facility] Comment on above: Performed By: #### C OSORIO #### [facility] [address] [place] [address] Dr. Juan Jose Banda BASOM # 0.09 103/ul Normal 0.00-0.10 [facility] Comment on above: Performed By: #### C OSORIO #### [facility] [address] [address] [address] Juan Jose Banda BASOM % 1.0 % Normal 0.2-2.0 [facility] Comment on above: Performed By: #### C BCMAN #### [facility] [address] [place] [address] Dr. Juan Jose Banda BLAST # Normal [facility] Comment on above: Performed By: #### C BCJESSICA #### [facility] [address] [place] [address] Dr. Juan Jose Banda BLAST % Normal [facility] Comment on above: Performed By: #### C BCJESSICA #### [facility] [address] [place] [address] Dr. Juan Jose Banda CORRECTED WBC Normal 4.0-11.0 [facility] Comment on above: Performed By: #### C OSORIO #### [facility] [address] [place] [address] Dr. Juan Jose Banda EOS # 0.18 103/ul Normal 0.00-0.70 [facility] Comment on above: Performed By: #### C OSORIO #### [facility] [address] [place] [address] Dr. Juan Jose Banda EOS% 2.0 % Normal 0.9-7.0 [facility] Comment on above: Performed By: #### C OSORIO #### [facility] [address] [place] [address] Dr. Juan Jose Banda HCT 34.0 % Critically low 36.0-48.0 [facility] Comment on above: Performed By: #### C BCJESSICA #### [facility] [address] [place] [address] Dr. Juan Jose Banda HGB 11.8 g/dl Critically low 12.0-16.0 [facility] Comment on above: Performed By: #### C BCJESSICA #### [facility] [address] [place] [address] Dr. Juan Jose Banda LYMPHM # 1.55 103/ul Normal 1.20-3.80 [facility] Comment on above: Performed By: #### C BCJESSICA #### [facility] [address] [address] [address] Juan Jose Banda LYMPHM% 17.0 % Critically low 20.5-60.0 [facility] Comment on above: Performed By: #### C OSORIO #### [facility] [address] [place] [address] Dr. Juan Jose Banda MCH 29.0 pg Normal 26.7-34.0 [facility] Comment on above: Performed By: #### C OSORIO #### [facility] [address] [place] [address] Dr. Juan Jose Banda MCHC 34.7 g/dl Normal 29.9-35.2 [facility] Comment on above: Performed By: #### C OSORIO #### [facility] [address] [place] [address] Dr. Juan Jose Banda MCV 83.5 fL Normal 81.0-99.0 [facility] Comment on above: Performed By: #### C OSORIO #### [facility] [address] [place] [address] Dr. Juan Jose Banda METAMYELOCYTE # Normal [facility] Comment on above: Performed By: #### C OSORIO #### [facility] [address] [place] [address] Dr. Juan Jose Bnada METAMYELOCYTE % Normal [facility] Comment on above: Performed By: #### C OSORIO #### [facility] [address] [place] [address] Dr. Juan Jose Banda MICROCYTOSIS SLIGHT Normal [facility] Comment on above: Performed By: #### C OSORIO #### [facility] [address] [place] [address] Dr. Juan Jose Banda MONOM# 1.00 103/ul Critically high 0.30-0.80 [facility] Comment on above: Performed By: #### C OSORIO #### [facility] [address] [place] [address] Dr. Juan Jose Banda MONOM% 11.0 % Normal 1.7-12.0 [facility] Comment on above: Performed By: #### C OSORIO #### [facility] [address] [address] [address] Juan Jose Banda MPV 11.2 fL Normal 9.5-13.5 [facility] Comment on above: Performed By: #### C OSORIO #### [facility] [address] [address] [address] Juan Jose Banda MYELOCYTE # Normal [facility] Comment on above: Performed By: #### C OSORIO #### [facility] [address] [address] [address] Juan Jose Banda MYELOCYTE % Normal [facility] Comment on above: Performed By: #### C OSORIO #### [facility] [address] [place] [address] Dr. Juan Jose Banda NRBC Normal [facility] Comment on above: Performed By: #### C OSORIO #### [facility] [address] [place] [address] Dr. Juan Jose Banda PLT 180 103/ul Normal 150-450 [facility] Comment on above: Performed By: #### C OSORIO #### [facility] [address] [place] [address] Dr. Juan Jose Banda RBC 4.07 106/ul Critically low 4.20-5.40 [facility] Comment on above: Performed By: #### C OSORIO #### [facility] [address] [place] [address] Dr. Juan Jose Banda RDW 11.9 % Normal 11.0-15.0 [facility] Comment on above: Performed By: #### C OSORIO #### [facility] [address] [address] [address] Juan Jose Banda SEG # 5.92 103/ul Normal 1.40-6.50 [facility] Comment on above: Performed By: #### C OSORIO #### [facility] [address] [place] [address] Dr. Juan Jose Banda SEG % 65.0 % Normal 43.0-75.0 [facility] Comment on above: Performed By: #### C OSORIO #### [facility] [address] [place] [address] Dr. Juan Jose Banda WBC 9.1 103/ul Normal 4.0-11.0 [facility] Comment on above: Performed By: #### C BCMAN #### [facility] [address] [place] [address] Dr. Juan Jose Banda DRUG SCREEN RAPID (URINE)on 01-04-2023 AMP Negative Normal NEGATIVE [facility] Comment on above: Performed By: #### U RCX #### [facility] [address] [place] [address] Dr. Juan Jose Banda BAR Negative Normal NEGATIVE [facility] Comment on above: Performed By: #### U RCX #### [facility] [address] [place] [address] Dr. Juan Jose Banda BUP Negative Normal NEGATIVE [facility] Comment on above: Performed By: #### U RCX #### [facility] [address] [place] [address] Dr. Juan Jose Banda BZO Negative Normal NEGATIVE [facility] Comment on above: Performed By: #### U RCX #### [facility] [address] [place] [address] Dr. Juan Jose Banda LUCIO Negative Normal NEGATIVE [facility] Comment on above: Performed By: #### U RCX #### [facility] [address] [place] [address] Dr. Juan Jose Banda CUT-OFFS SEE BELOW Normal [facility] Comment on above: Result Comment: AMP (Amphetamine): 500ng/mL, BAR (Barbituates): 200 ng/mL, BZO (Benzodiazepines): 150 ng/mL, BUP (Buprenorphine): 10 ng/mL, LUCIO (Cocaine): 150 ng/mL, mAMP (Methamphetamine): 500 ng/mL, MTD (Methadone): 200 ng/mL, OPI (Opiates): 100 ng/mL, OXY (Oxycodone): 100 ng/mL, PCP (Phencyclidine): 25 ng/mL, PPX (Propoxyphene): 300 ng/mL, THC (Cannabinoids): 50 ng/mL, TCA (Trycyclic Antidepressants): 300 ng/mL Performed By: #### U RCX #### [facility] [address] [address] [address] Juan Jose Banda DRUG CUT HEADER DRUG CLASS TEST SYSTEM CUT-OFF CONCENTRATIONS ARE FOLLOWS: Normal [facility] Comment on above: Performed By: #### U RCX #### [facility] [address] [address] [address] Juan Jose Banda mAMP Negative Normal NEGATIVE [facility] Comment on above: Performed By: #### U RCX #### [facility] [facility] [address] [address] [address] Juan Jose Banda MTD Negative Normal NEGATIVE [facility] Comment on above: Performed By: #### U RCX #### [facility] [address] [address] [address] Juan Jose Banda OPI Negative Normal NEGATIVE [facility] Comment on above: Performed By: #### U RCX #### [facility] [address] [place] [address] Dr. Juan Jose Banda OXY Negative Normal NEGATIVE [facility] Comment on above: Performed By: #### U RCX #### [facility] [address] [address] [address] Juan Jose Banda PCP Negative Normal NEGATIVE [facility] Comment on above: Performed By: #### U RCX #### [facility] [address] [place] [address] Dr. Juan Jose Banda PPX Negative Normal NEGATIVE [facility] Comment on above: Performed By: #### U RCX #### [facility] [address] [address] [address] Juan Jose Banda TCA Negative Normal NEGATIVE [facility] Comment on above: Performed By: #### U RCX #### [facility] [address] [place] [address] Dr. Juan Jose Banda THC Negative Normal NEGATIVE [facility] Comment on above: Performed By: #### U RCX #### [facility] [address] [place] [address] Dr. Juan Jose Banda TYPE AND SCREENon 01-04-2023 TYPE AND SCREEN Negative Normal [facility] Comment on above: Performed By: #### C BCMAN #### [facility] [address] [place] [address] Dr. Juan Jose Banda US PREG BIOPHY [...] by: YO MESA Date: 2022-12-31 17:02 Normal [facility] US PREG UMBILICAL ARTERYon 0 12-31-2022 [...] YO MESA Date: 2022-12-31 17:18 Normal [facility] GROUP B STREP CULTUREon 12-07 S. agalactiae Ag Ql (Unsp spec) Culture Observations: NEGATIVE FOR GROUP B STREPTOCOCCUS. Normal [facility] Comment on above: Performed By: #### G BSCX #### [facility] [address] [place] [address] Dr. Juan Jose Banda US PREG BIOPHY [...] LUISA ARCHIBALD Date: 2022-12-24 11:23 Normal [facility] US PREG UMBILICAL ARTERYon 0 12-24-2022 US [...] LUISA ARCHIBALD Date: 2022-12-24 11:58 Normal [facility] UA (CLEAN/CATCH) JIG INSPECTOR/MICRO I F IND.on 12-22-2022 Bilirubin Ql (U) Negative Normal NEGATIVE [facility] Comment on above: Performed By: #### C OSORIO #### [facility] [address] [place] [address] Dr. Juan Jose Banda Clarity (U) CLEAR Normal CLEAR [facility] Comment on above: Performed By: #### C BCMAN #### [facility] [address] [place] [address] Dr. Juan Jose Banda Color (U) LT. YELLOW Normal YELLOW [facility] Comment on above: Performed By: #### C BCJESSICA #### [facility] [address] [place] [address] Dr. Juan Jose Banda Glucose Ql (U) Negative Normal NEGATIVE The [facility] Comment on above: Performed By: #### C BCJESSICA #### [facility] [address] [place] [address] Dr. Juan Jose Banda Hemoglobin Ql (U) Negative Normal NEGATIVE The [facility] Comment on above: Performed By: #### C OSORIO #### [facility] [address] [address] [address] Juan Jose Banda Ketones Ql (U) Negative Normal NEGATIVE [facility] Comment on above: Performed By: #### C OSORIO #### [facility] [address] [place] [address] Dr. Juan Jose Banda LEUKOCYTES SMALL Abnormal NEGATIVE [facility] Comment on above: Performed By: #### C OSORIO #### [facility] [address] [place] [address] Dr. Juan Jose Banda Nitrite Ql (U) Negative Normal NEGATIVE [facility] Comment on above: Performed By: #### C OSORIO #### [facility] [address] [place] [address] Dr. Juan Jose Banda pH (U) 6.0 [pH] Normal 5-9 [facility] Comment on above: Performed By: #### C OSORIO #### [facility] [address] [place] [address] Dr. Juan Jose Banda SPEC GRAVITY <=1.005 Abnormal 1.005-<=1.025 [facility] Comment on above: Performed By: #### C OSORIO #### [facility] [address] [place] [address] Dr. Juan Jose Banda UA PROTEIN Negative Normal NEGATIVE/ TRACE [facility] Comment on above: Performed By: #### C OSORIO #### [facility] [address] [place] [address] Dr. Juan Jose Banda UR MICRO IND INDICATED Normal [facility] Comment on above: Performed By: #### C OSORIO #### [facility] [address] [place] [address] Dr. Juan Jose Banda Urobilinogen Qn (U) 0.2 {Tyler'U}/dL Normal 0.2 - 1. 0 [facility] Comment on above: Performed By: #### C OSORIO #### [facility] [address] [place] [address] Dr. Juan Jose Banda URINE MICROSCOPIC ONLYon BACTERIA NONE SEEN Normal NONE SEEN [facility] Comment on above: Performed By: #### C BCMAN #### [facility] [address] [place] [address] Dr. Juan Jose Banda Bacteria identified Cx Nom (U) NOT INDICATED Normal [facility] Comment on above: Performed By: #### C BCMAN #### [facility] [address] [place] [address] Dr. Juan Jose Banda CAST NONE SEEN Normal NONE SEEN [facility] Comment on above: Performed By: #### C BCMAN #### [facility] [address] [place] [address] Dr. Juan Jose Banda Crystals LM Nom (Urine sed) NONE SEEN Normal NONE SEEN [facility] Comment on above: Performed By: #### C BCMAN #### [facility] [address] [place] [address] Dr. Juan Jose Banda Epithelial cells LM Ql (Urine sed) MANY Abnormal NONE SEEN /RARE [facility] Comment on above: Performed By: #### C BCMAN #### [facility] [address] [place] [address] Dr. Juan Jose Banda MUCOUS NONE SEEN Normal NONE SEEN [facility] Comment on above: Performed By: #### C BCMAN #### [facility] [address] [place] [address] Dr. Juan Jose Banda RBC NONE SEEN Abnormal 0-2 [facility] Comment on above: Performed By: #### C BCJESSICA #### [facility] [address] [place] [address] Dr. Juan Jose Banda WBC 2-5 Abnormal NONE SEEN [facility] Comment on above: Performed By: #### C BCMAN #### [facility] [address] [place] [address] Dr. Juan Jose Banda US PREG BIOPHY [...] by: DALLIN HERNANDEZ Date: 2022-12-22 20:55 Normal [facility] US PREG PLACENTAon US PREG PLACENTA [...] by: DALLIN HERNANDEZ Date: 2022-12-22 20:52 Normal [facility] PREG GROWTHon 12-20-2022 US PREG GROWTH EXAMINATION: [...] LUISA ARCHIBALD Date: 2022-12-20 15:23 Normal [facility] CULTURE URINEon 12-17-2022 CULTURE URINE Culture Observations: LIGHT GROWTH OF MIXED GENITAL CHEVY. NO POTENTIAL PATHOGENS SEEN. Normal [facility] Comment on above: Performed By: #### U RCX #### [facility] [address] [place] [address] Dr. Juan Jose Banda UA (CLEAN/CATCH) JIG INSPECTOR/MICRO I F IND.on 12-17-2022 Bilirubin Ql (U) Negative Normal NEGATIVE [facility] Comment on above: Performed By: #### H IV12 #### [facility] [address] [place] [address] Dr. Juan Jose Banda Clarity (U) CLEAR Normal CLEAR [facility] Comment on above: Performed By: #### H IV12 #### [facility] [address] [place] [address] Dr. Juan Jose Banda Color (U) LT. YELLOW Normal YELLOW [facility] Comment on above: Performed By: #### H IV12 #### [facility] [address] [place] [address] Dr. Juan Jose Banda Glucose Ql (U) Negative Normal NEGATIVE The [facility] Comment on above: Performed By: #### H IV12 #### [facility] [address] [place] [address] Dr. Juan Jose Banda Hemoglobin Ql (U) Negative Normal NEGATIVE [facility] Comment on above: Performed By: #### H IV12 #### [facility] [address] [place] [address] Dr. Juan Jose Banda Ketones Ql (U) Negative Normal NEGATIVE The [facility] Comment on above: Performed By: #### H IV12 #### [facility] [address] [place] [address] Dr. Juan Jose Banda LEUKOCYTES MODERATE Abnormal NEGATIVE [facility] Comment on above: Performed By: #### H IV12 #### [facility] [address] [place] [address] Dr. Juan Jose Banda Nitrite Ql (U) Negative Normal NEGATIVE The [facility] Comment on above: Performed By: #### H IV12 #### [facility] [address] [place] [address] Dr. Juan Jose Banda pH (U) 6.5 [pH] Normal 5-9 [facility] Comment on above: Performed By: #### H IV12 #### [facility] [address] [place] [address] Dr. Juan Jose Banda SPEC GRAVITY <=1.005 Abnormal 1.005-<=1.025 [facility] Comment on above: Performed By: #### H IV12 #### [facility] [address] [place] [address] Dr. Juan Jose Banda UA PROTEIN Negative Normal NEGATIVE/ TRACE [facility] Comment on above: Performed By: #### H IV12 #### [facility] [address] [place] [address] Dr. Juan Jose Banda UR MICRO IND INDICATED Normal [facility] Comment on above: Performed By: #### H IV12 #### [facility] [address] [place] [address] Dr. Juan Jose Banda Urobilinogen Qn (U) 0.2 {Tyler'U}/dL Normal 0.2 - 1. 0 [facility] Comment on above: Performed By: #### H IV12 #### [facility] [address] [place] [address] Dr. Juan Jose Banda URINE MICROSCOPIC ONLYon BACTERIA TRACE Abnormal NONE SEEN [facility] Comment on above: Performed By: #### R PRQ #### [facility] [address] [place] [address] Dr. Juan Jose Banda Bacteria identified Cx Nom (U) INDICATED Normal [facility] Comment on above: Performed By: #### R PRQ #### [facility] [address] [place] [address] Dr. Juan Jose Banda CAST NONE SEEN Normal NONE SEEN [facility] Comment on above: Performed By: #### R PRQ #### [facility] [address] [address] [address] Juan Jose Banda Crystals LM Nom (Urine sed) NONE SEEN Normal NONE SEEN [facility] Comment on above: Performed By: #### R PRQ #### [facility] [address] [address] [address] Juan Jose Banda Epithelial cells LM Ql (Urine sed) MODERATE Abnormal NONE SEEN /RARE [facility] Comment on above: Performed By: #### R PRQ #### [facility] [address] [address] [address] Juan Jose Banda MUCOUS NONE SEEN Normal NONE SEEN [facility] Comment on above: Performed By: #### R PRQ #### [facility] [address] [place] [address] Dr. Juan Jose Banda RBC 2-5 Abnormal 0-2 [facility] Comment on above: Performed By: #### R PRQ #### [facility] [address] [place] [address] Dr. Juan Jose Banda WBC 5-10 Abnormal NONE SEEN [facility] Comment on above: Performed By: #### R PRQ #### [facility] [address] [place] [address] Dr. Juan Jose Banda YEAST PRESENT Abnormal NONE SEEN [facility] Comment on above: Result Comment: rare Performed By: #### R PRQ #### [facility] [address] [place] [address] Dr. Juan Jose Banda CARDIAC GUSTAVO ADMITon 023 CK [Catalytic activity/Vol] 33 U/L Normal 26-192 [facility] Comment on above: Performed By: #### S EDR #### [facility] [address] [place] [address] Dr. Juan Jose Banda CK.MB [Mass/Vol] ng/mL Normal <=3.60 [facility] Comment on above: Performed By: #### S EDR #### [facility] [address] [place] [address] Dr. Juan Jose Banda HSTROP <4.0 Normal 4.0-51.3 [facility] Comment on above: Result Comment: CUT- OFF POINTS HAVE BEEN ESTABLISHED BASED ON THE FOURTH UNIVERSAL DEFINITIONS OF MYOCARDIAL INFARCTION. THE UPPER REFERENCE LIMIT (URL) OF TROPONIN, DEFINED THE 99TH PERCENTILE OF cTnI DISTRIBUTION IN A REFERENCE POPULATION, HAS BEEN CONFIRMED THE DECISION THRESHOLD FOR SC DIAGNOSIS. Performed By: #### S EDR #### [facility] [address] [place] [address] Dr. Juan Jose Banda OTTO 17 ng/mL Normal 9-82 [facility] Comment on above: Performed By: #### S EDR #### [facility] [address] [place] [address] Dr. Juan Jose Banda CBC AUTO DIFFon 11-04-2022 BASO # 0.0 103/ul Normal 0.0-0.1 [facility] Comment on above: Performed By: #### U RCX #### [facility] [address] [place] [address] Dr. Juan Jose Banda Basophils/100 WBC (Bld) 0.2 % Normal 0.2-2.0 [facility] Comment on above: Performed By: #### U RCX #### [facility] [address] [place] [address] Dr. Juan Jose Banda EO # 0.0 103/ul Normal 0.0-0.7 [facility] Comment on above: Performed By: #### U RCX #### [facility] [address] [place] [address] Dr. Juan Jose Banda Eosinophils/100 WBC (Bld) 0.4 % Critically low 0.9-7.0 [facility] Comment on above: Performed By: #### U RCX #### [facility] [address] [place] [address] Dr. Juan Jose Banda Erythrocyte distribution width (RBC) [Ratio] 12.4 % Normal 11.0-15.0 [facility] Comment on above: Performed By: #### U RCX #### [facility] [address] [place] [address] Dr. Juan Jose Banda Hematocrit (Bld) [Volume fraction] 33.7 % Critically low 36.0-48.0 [facility] Comment on above: Performed By: #### U RCX #### [facility] [address] [address] [address] Juan Jose Banda Hemoglobin (Bld) [Mass/Vol] 12.1 g/dL Normal 12.0-16.0 [facility] Comment on above: Performed By: #### U RCX #### [facility] [address] [address] [address] Juan Jose Banda IG # 0.09 10e3/ul Critically high 0.00-0.03 [facility] Comment on above: Performed By: #### U RCX #### [facility] [address] [address] [address] Juan Jose Banda IG % 1.1 % Critically high 0.0-0.5 [facility] Comment on above: Performed By: #### U RCX #### [facility] [address] [address] [address] Juan Jose Banda LYMPH # 1.5 103/ul Normal 1.2-3.8 [facility] Comment on above: Performed By: #### U RCX #### [facility] [address] [address] [address] Juan Jose Banda Lymphocytes/100 WBC (Bld) 17.1 % Critically low 20.5-60.0 [facility] Comment on above: Performed By: #### U RCX #### [facility] [address] [address] [address] Juan Jose Banda MANUAL DIFF REQ NO Normal [facility] Comment on above: Performed By: #### U RCX #### [facility] [address] [address] [address] Juan Jose Banda MCH (RBC) [Entitic mass] 30.5 pg Normal 26.7-34.0 [facility] Comment on above: Performed By: #### U RCX #### [facility] [address] [address] [address] Juan Jose Banda MCHC (RBC) [Mass/Vol] 35.9 g/dL Critically high 29.9-35.2 [facility] Comment on above: Performed By: #### U RCX #### [facility] [address] [address] [address] Juan Jose Banda MCV (RBC) [Entitic vol] 84.9 fL Normal 81.0-99.0 [facility] Comment on above: Performed By: #### U RCX #### [facility] [address] [address] [address] Juan Jose Banda MONO # 0.8 103/ul Normal 0.3-0.8 [facility] Comment on above: Performed By: #### U RCX #### [facility] [address] [address] [address] Juan Jose Banda Monocytes/100 WBC (Bld) 9.8 % Normal 1.7-12.0 [facility] Comment on above: Performed By: #### U RCX #### [facility] [address] [place] [address] Dr. Juan Jose Banda NEUT # 6.1 103/ul Normal 1.4-6.5 [facility] Comment on above: Performed By: #### U RCX #### [facility] [address] [place] [address] Dr. Juan Jose Banda Neutrophils/100 WBC (Bld) 71.4 % Normal 43.0-75.0 [facility] Comment on above: Performed By: #### U RCX #### [facility] [address] [address] [address] Juan Jose Banda Platelet mean volume (Bld) [Entitic vol] 11.2 fL Normal 9.5-13.5 [facility] Comment on above: Performed By: #### U RCX #### [facility] [address] [address] [address] Juan Jose Banda PLT 196 103/ul Normal 150-450 [facility] Comment on above: Performed By: #### U RCX #### [facility] [address] [address] [address] Juan Jose Banda RBC 3.97 106/ul Critically low 4.20-5.40 [facility] Comment on above: Performed By: #### U RCX #### [facility] [address] [address] [address] Juan Jose Banda WBC 8.5 103/ul Normal 4.0-11.0 [facility] Comment on above: Performed By: #### U RCX #### [facility] [address] [address] [address] Juan Jose Banda LIVER PROFILEon 11-04-2022 Albumin [Mass/Vol] 3.0 g/dL Critically low 3.4-5.0 [facility] Comment on above: Performed By: #### S EDR #### [facility] [address] [address] [address] Juan Jose Banda Albumin/Globulin [Mass ratio] 0.9 {ratio} Normal [facility] Comment on above: Performed By: #### S EDR #### [facility] [address] [place] [address] Dr. Juan Jose Banda ALP [Catalytic activity/Vol] 76 U/L Normal 46-116 [facility] Comment on above: Performed By: #### S EDR #### [facility] [address] [address] [address] Juan Jose Banda ALT [Catalytic activity/Vol] 13 U/L Critically low 14-59 [facility] Comment on above: Performed By: #### S EDR #### [facility] [address] [address] [address] Juan Jose Banda AST [Catalytic activity/Vol] 14 U/L Critically low 15-37 [facility] Comment on above: Performed By: #### S EDR #### [facility] [address] [place] [address] Dr. Juan Jose Banda BILI, CONJUGATED 0.1 mg/dL Normal 0.0-0.2 [facility] Comment on above: Performed By: #### S EDR #### [facility] [address] [address] [address] Juan Jose Banda Bilirubin [Mass/Vol] 0.3 mg/dL Normal 0.2-1.0 [facility] Comment on above: Performed By: #### S EDR #### [facility] [address] [place], [place] [address] Dr. Juan Jose Banda Globulin (S) [Mass/Vol] 3.4 g/dL Normal [facility] Comment on above: Performed By: #### S EDR #### [facility] [address] [place], [place] [address] Dr. Juan Jose Banda Protein [Mass/Vol] 6.4 g/dL Normal 6.4-8.2 [facility] Comment on above: Performed By: #### S EDR #### [facility] [address] [place], [place] [address] Dr. Juan Jose Banda BOX TEST SENT OUTon 10-01-19 SENT TO REF LAB 10/01/2022 Normal [facility] Comment on above: Performed By: #### S EDR #### [facility] [address] [id number] Juan Jose Banda US PREG ANATOMY [...] due to position. Electronically authenticated by: LUISA ARTIERACHELKESHAWN Date: 2022-09-29 16:29 Normal [facility] HEP B SURFACE ANTIGEN SCREEN on 08-26-2022 HBsAg Screen Negative Normal Negative [facility] Comment on above: Performed By: #### S EDR #### [facility] [address] [address] [address] Juan Jose Banda HEPATITIS C VIRUS AB W/ REFL EX QUANTon 08-26-2022 HCV AB <0.1 Normal 0.0-0.9 [facility] Comment on above: Performed By: #### R PRQ #### [facility] [address] [address] [address] Juan Jose Banda Interpretation: Comment Normal [facility] Comment on above: Result Comment: Nega tive Not infected with HCV, unless recent infection is suspected or other evidence exists to indicate HCV infection. Performed By: #### R PRQ #### [facility] [address] [address] [address] Juan Jose Banda HIV 1 AND 2 WITH REFLEXon HIV Screen 4th Generation wRfx Non-Reactive Normal Non Reactive [facility] Comment on above: Result Comment: HIV Negative HIV-1/HIV-2 antibodies and HIV-1 p24 antigen were NOT detected. There is no laboratory evidence of HIV infection. Performed By: #### H IV12 #### [facility] [address] [place] [address] Dr. Juan Jose Banda RPR QUANTon 08-26-2022 Rapid Plasma Reagin, Quant Non-Reactive Normal NonRea<1:1 [facility] Comment on above: Result Comment: Plea se Note: This test does not meet current guidelines for screening and diagnosis of syphilis. This test is intended for following treatment response in patients being treated for syphilis infection. To screen for syphilis infection, a reflex cascade that includes both RPR and a treponema-specific assay should be utilized, such as Treponema pallidum (Syphilis) Screening [place] (468001) or Rapid Plasma Reagin (RPR) Test With Reflex to Quantitative RPR and Confirmatory Treponema pallidum Antibodies (353253). Performed By: #### R PRQ #### [facility] [address] [place] [address] Dr. Juan Jose Banda RUBELLA AB IGGon 08-26-2022 Rubella Antibodies, IgG 2.56 index Normal Immune >0.99 [facility] Comment on above: Result Comment: Non- immune <0.90 Equivocal 0.90 - 0.99 Immune >0.99 Performed By: #### S EDR #### [facility] [address] [place] [address] Dr. Juan Jose Banda CULTURE URINEon 08-25-2022 CULTURE URINE Culture Observations: LIGHT GROWTH OF MIXED GENITAL [place]. NO POTENTIAL PATHOGENS SEEN. Normal [facility] Comment on above: Performed By: #### U RCX #### [facility] [address] [place] [address] Dr. Juan Jose Banda CBC AUTO DIFFon 08-24-2022 BASO # 0.0 103/ul Normal 0.0-0.1 [facility] Comment on above: Performed By: #### S EDR #### [facility] [address] [place] [address] Dr. Juan Jose Banda Basophils/100 WBC (Bld) 0.4 % Normal 0.2-2.0 [facility] Comment on above: Performed By: #### S EDR #### [facility] [address] [place] [address] Dr. Juan Jose Banda EO # 0.1 103/ul Normal 0.0-0.7 [facility] Comment on above: Performed By: #### S EDR #### [facility] [address] [place] [address] Dr. Juan Jose Banda Eosinophils/100 WBC (Bld) 1.4 % Normal 0.9-7.0 [facility] Comment on above: Performed By: #### S EDR #### [facility] [address] [place] [address] Dr. Juan Jose Banda Erythrocyte distribution width (RBC) [Ratio] 12.2 % Normal 11.0-15.0 [facility] Comment on above: Performed By: #### S EDR #### [facility] [address] [place] [address] Dr. Juan Jose Banda Hematocrit (Bld) [Volume fraction] 35.3 % Critically low 36.0-48.0 [facility] Comment on above: Performed By: #### S EDR #### [facility] [address] [place] [address] Dr. Juan Jose Banda Hemoglobin (Bld) [Mass/Vol] 12.7 g/dL Normal 12.0-16.0 [facility] Comment on above: Performed By: #### S EDR #### [facility] [address] [place] [address] Dr. Juan Jose Banda IG # 0.03 10e3/ul Normal 0.00-0.03 [facility] Comment on above: Performed By: #### S EDR #### [facility] [address] [place] [address] Dr. Juan Jose Banda IG % 0.4 % Normal 0.0-0.5 [facility] Comment on above: Performed By: #### S EDR #### [facility] [address] [place] [address] Dr. Juan Jose Banda LYMPH # 1.4 103/ul Normal 1.2-3.8 [facility] Comment on above: Performed By: #### S EDR #### [facility] [address] [place] [address] Dr. Juan Jose Banda Lymphocytes/100 WBC (Bld) 19.7 % Critically low 20.5-60.0 [facility] Comment on above: Performed By: #### S EDR #### [facility] [address] [place] [address] Dr. Juan Jose Banda MANUAL DIFF REQ NO Normal [facility] Comment on above: Performed By: #### S EDR #### [facility] [address] [place] [address] Dr. Juan Jose Banda MCH (RBC) [Entitic mass] 29.8 pg Normal 26.7-34.0 [facility] Comment on above: Performed By: #### S EDR #### [facility] [address] [place] [address] Dr. Juan Jose Banda MCHC (RBC) [Mass/Vol] 36.0 g/dL Critically high 29.9-35.2 [facility] Comment on above: Performed By: #### S EDR #### [facility] [address] [place] [address] Dr. Juan Jose Banda MCV (RBC) [Entitic vol] 82.9 fL Normal 81.0-99.0 [facility] Comment on above: Performed By: #### S EDR #### [facility] [address] [place] [address] Dr. Juan Jose Banda MONO # 0.6 103/ul Normal 0.3-0.8 [facility] Comment on above: Performed By: #### S EDR #### [facility] [address] [place] [address] Dr. Juan Jose Banda Monocytes/100 WBC (Bld) 8.3 % Normal 1.7-12.0 [facility] Comment on above: Performed By: #### S EDR #### [facility] [address] [place] [address] Dr. Juan Jose Banda NEUT # 5.0 103/ul Normal 1.4-6.5 [facility] Comment on above: Performed By: #### S EDR #### [facility] [address] [place] [address] Dr. Juan Jose Banda Neutrophils/100 WBC (Bld) 69.8 % Normal 43.0-75.0 [facility] Comment on above: Performed By: #### S EDR #### [facility] [address] [place] [address] Dr. Juan Jose Banda Platelet mean volume (Bld) [Entitic vol] 11.8 fL Normal 9.5-13.5 [facility] Comment on above: Performed By: #### S EDR #### [facility] [address] [address] [address] Juan Jose Banda PLT 183 103/ul Normal 150-450 [facility] Comment on above: Performed By: #### S EDR #### [facility] [address] [address] [address] Juan Jose Banda RBC 4.26 106/ul Normal 4.20-5.40 [facility] Comment on above: Performed By: #### S EDR #### [facility] [address] [address] [address] Juan Jose Banda WBC 7.1 103/ul Normal 4.0-11.0 [facility] Comment on above: Performed By: #### S EDR #### [facility] [address] [place] [address] Dr. Juan Jose Banda CULTURE URINEon 08-24-2022 CULTURE URINE Culture Observations: MODERATE GROWTH OF MIXED GENITAL CHEVY. NO POTENTIAL PATHOGENS SEEN. Normal [facility] Comment on above: Performed By: #### C BCMAN #### [facility] [address] [place] [address] Dr. Juan Jose Banda GLYCOHEMOGLOBIN A1Con 2022 ADA RECOMMENDATION SEE BELOW Normal [facility] Comment on above: Result Comment: ADA RECOMMENDED LIMIT 4.0 - 6.0 ADA THERAPEUTIC TARGET < 7.0 ACTION SUGGESTED > 7.0 Performed By: #### H IV12 #### [facility] [address] [place] [address] Dr. Juan Jose Banda Glucose [Mass/Vol] 85 mg/dL Normal [facility] Comment on above: Performed By: #### H IV12 #### [facility] [address] [address] [address] Juan Jose Banda HbA1c (Bld) [Mass fraction] 4.6 % Normal 4.5-6.2 [facility] Comment on above: Performed By: #### H IV12 #### [facility] [address] [place] [address] Dr. Juan Jose Banda TYPE AND SCREENon 08-24-2022 TYPE AND SCREEN Negative Normal [facility] Comment on above: Performed By: #### T NS #### [facility] [address] [address] [address] Juan Jose Banda Covid-19 PCR ([facility])on 06-08 SARS-CoV-2 (COVID-19) RNA ISAAC+probe Ql (Unsp spec) Not detected Normal NOT DETECTED [facility] Comment on above: Result Comment: When diagnostic [...] for this test is supported by the Healthcare Associate of Health and Human Service's declaration that [...] used). Performed By: #### R PRQ #### [facility] [address] [address] [address] Juan Jose Banda INFLUENZA A AND B AGon 06-25 [facility] SEE BELOW Normal [facility] Comment on above: Result Comment: Nega tive for Flu A protein angiten. Infection due to Flu A cannot be ruled out. Flu A angiten in the sample may be below the detection limit of the test. Performed By: #### S EDR #### [facility] [address] [address] [address] Juan Jose [facility] BELOW Normal [facility] Comment on above: Result Comment: Nega tive for Flu B protein antigen. Infection due to Flu B cannot be ruled out. Flu B antigen in the sample may be below the detection limit of the test. Performed By: #### S EDR #### [facility] [address] [place] [address] Dr. Juan Jose Banda INFLUENZA A AG Negative Normal NEGATIVE SEE COMMENT [facility] Comment on above: Performed By: #### S EDR #### [facility] [address] [place] [address] Dr. Juan Jose Banda INFLUENZA B AG Negative Normal NEGATIVE SEE COMMENT [facility] Comment on above: Performed By: #### S EDR #### [facility] [address] [place] [address] Dr. Juan Jose Banda INTERNAL CONTROLS Within Normal Limits Normal Within Normal Limits [facility] Comment on above: Performed By: #### S EDR #### [facility] [address] [place] [address] Dr. Juan Jose Banda CBC AUTO DIFFon 06-20-2022 BASO # 0.0 103/ul Normal 0.0-0.1 [facility] Comment on above: Performed By: #### S EDR #### [facility] [address] [place] [address] Dr. Juan Jose Banda Basophils/100 WBC (Bld) 0.3 % Normal 0.2-2.0 [facility] Comment on above: Performed By: #### S EDR #### [facility] [address] [place] [address] Dr. Juan Jose Banda EO # 0.1 103/ul Normal 0.0-0.7 [facility] Comment on above: Performed By: #### S EDR #### [facility] [address] [place] [address] Dr. Juan Jose Banda Eosinophils/100 WBC (Bld) 1.3 % Normal 0.9-7.0 [facility] Comment on above: Performed By: #### S EDR #### [facility] [address] [place] [address] Dr. Juan Jose Banda Erythrocyte distribution width (RBC) [Ratio] 11.4 % Normal 11.0-15.0 [facility] Comment on above: Performed By: #### S EDR #### [facility] [address] [place] [address] Dr. Juan Jose Banda Hematocrit (Bld) [Volume fraction] 35.6 % Critically low 36.0-48.0 [facility] Comment on above: Performed By: #### S EDR #### [facility] [address] [place] [address] Dr. Juan Jose Banda Hemoglobin (Bld) [Mass/Vol] 12.9 g/dL Normal 12.0-16.0 [facility] Comment on above: Performed By: #### S EDR #### [facility] [address] [address] [address] Juan Jose Banda IG # 0.04 10e3/ul Critically high 0.00-0.03 [facility] Comment on above: Performed By: #### S EDR #### [facility] [address] [place] [address] Dr. Juan Jose Banda IG % 0.5 % Normal 0.0-0.5 [facility] Comment on above: Performed By: #### S EDR #### [facility] [address] [address] [address] Juan Jose Banda LYMPH # 2.2 103/ul Normal 1.2-3.8 [facility] Comment on above: Performed By: #### S EDR #### [facility] [address] [place] [address] Dr. Juan Jose Banda Lymphocytes/100 WBC (Bld) 25.8 % Normal 20.5-60.0 [facility] Comment on above: Performed By: #### S EDR #### [facility] [address] [address] [address] Juan Jose Banda MANUAL DIFF REQ NO Normal [facility] Comment on above: Performed By: #### S EDR #### [facility] [address] [address] [address] Juan Jose Banda MCH (RBC) [Entitic mass] 29.9 pg Normal 26.7-34.0 [facility] Comment on above: Performed By: #### S EDR #### [facility] [address] [place] [address] Dr. Juan Jose Banda MCHC (RBC) [Mass/Vol] 36.2 g/dL Critically high 29.9-35.2 [facility] Comment on above: Performed By: #### S EDR #### [facility] [address] [place] [address] Dr. Juan Jose Banda MCV (RBC) [Entitic vol] 82.4 fL Normal 81.0-99.0 [facility] Comment on above: Performed By: #### S EDR #### [facility] [address] [place] [address] Dr. Juan Jose Banda MONO # 0.9 103/ul Critically high 0.3-0.8 [facility] Comment on above: Performed By: #### S EDR #### [facility] [address] [place] [address] Dr. Juan Jose Banda Monocytes/100 WBC (Bld) 9.9 % Normal 1.7-12.0 [facility] Comment on above: Performed By: #### S EDR #### [facility] [address] [place] [address] Dr. Juan Jose Banda NEUT # 5.4 103/ul Normal 1.4-6.5 [facility] Comment on above: Performed By: #### S EDR #### [facility] [address] [place] [address] Dr. Juan Jose Banda Neutrophils/100 WBC (Bld) 62.2 % Normal 43.0-75.0 [facility] Comment on above: Performed By: #### S EDR #### [facility] [address] [place] [address] Dr. Juan Jose Banda Platelet mean volume (Bld) [Entitic vol] 11.7 fL Normal 9.5-13.5 [facility] Comment on above: Performed By: #### S EDR #### [facility] [address] [place] [address] Dr. Juan Jose Banda PLT 205 103/ul Normal 150-450 [facility] Comment on above: Performed By: #### S EDR #### [facility] [address] [place] [address] Dr. Juan Jose Banda RBC 4.32 106/ul Normal 4.20-5.40 [facility] Comment on above: Performed By: #### S EDR #### [facility] [address] [place] [address] Dr. Juan Jose Banda WBC 8.6 103/ul Normal 4.0-11.0 [facility] Comment on above: Performed By: #### S EDR #### [facility] [address] [place] [address] Dr. Juan Jose Banda ER URINE PROFILEon 2 Bilirubin Ql (U) Negative Normal NEGATIVE [facility] Comment on above: Performed By: #### H IV12 #### [facility] [address] [place] [address] Dr. Juan Jose Banda Clarity (U) CLEAR Normal CLEAR [facility] Comment on above: Performed By: #### H IV12 #### [facility] [address] [place] [address] Dr. Juan Jose Banda Color (U) LT. YELLOW Normal YELLOW [facility] Comment on above: Performed By: #### H IV12 #### [facility] [address] [place] [address] Dr. Juan Jose Banda ERUSiobhan A micrscopic examination will be performed if indicated. Normal [facility] Comment on above: Performed By: #### H IV12 #### [facility] [address] [place] [address] Dr. Juan Jose Banda Glucose Ql (U) Negative Normal NEGATIVE [facility] Comment on above: Performed By: #### H IV12 #### [facility] [address] [place] [address] Dr. Juan Jose Banda Hemoglobin Ql (U) Negative Normal NEGATIVE [facility] Comment on above: Performed By: #### H IV12 #### [facility] [address] [place] [address] Dr. Juan Jose Banda Ketones Ql (U) Negative Normal NEGATIVE [facility] Comment on above: Performed By: #### H IV12 #### [facility] [address] [place] [address] Dr. Juan Jose Banda LEUKOCYTES SMALL Abnormal NEGATIVE [facility] Comment on above: Performed By: #### H IV12 #### [facility] [address] [address] [address] Juan Jose Banda Nitrite Ql (U) Negative Normal NEGATIVE [facility] Comment on above: Performed By: #### H IV12 #### [facility] [address] [place] [address] Dr. Juan Jose Banda pH (U) 6.0 [pH] Normal 5-9 [facility] Comment on above: Performed By: #### H IV12 #### [facility] [address] [place] [address] Dr. Juan Jose Banda SPEC GRAVITY <=1.005 Abnormal 1.005-<=1.025 [facility] Comment on above: Performed By: #### H IV12 #### [facility] [address] [place] [address] Dr. Juan Jose Banda UA PROTEIN Negative Normal NEGATIVE/ TRACE [facility] Comment on above: Performed By: #### H IV12 #### [facility] [address] [place] [address] Dr. Juan Jose Banda UR MICRO IND INDICATED Normal [facility] Comment on above: Performed By: #### H IV12 #### [facility] [address] [place] [address] Dr. Juan Jose Banda Urobilinogen Qn (U) 0.2 {Tyler'U}/dL Normal 0.2 - 1. 0 [facility] Comment on above: Performed By: #### H IV12 #### [facility] [address] [place] [address] Dr. Juan Jose Banda PREG QUANT HCGon 06-20-2022 HCG QUANT 04942 mIU/mL Normal [facility] Comment on above: Performed By: #### R PRQ #### [facility] [address] [place] [address] Dr. Juan Jose Banda HCG RANGE SEE BELOW Normal [facility] Comment on above: Result Comment: 5-50 0.2-1 WEEK 50-500 1-2 WEEKS 100-5,000 2-3 WEEKS 500-10,000 3-4 WEEKS 1,000-50,000 4-5 WEEKS 10,000-100,000 5-6 WEEKS 15,000-200,000 6-8 WEEKS 10,000-100,000 2-3 MONTHS Performed By: #### R PRQ #### [facility] [address] [place] [address] Dr. Juan Jose Banda URon 06-20-2022 , QUAL Positive Abnormal NEGATIVE [facility] Comment on above: Performed By: #### H IV12 #### [facility] [address] [place] [address] Dr. Juan Jose Banda PROF CHEM 8 (BAS METB)on Anion gap [Moles/Vol] 9.4 mmol/L Normal [facility] Comment on above: Performed By: #### R PRQ #### [facility] [address] [place] [address] Dr. Juan Jose Banda Calcium [Mass/Vol] 8.8 mg/dL Normal 8.5-10.1 [facility] Comment on above: Performed By: #### R PRQ #### [facility] [address] [place] [address] Dr. Juan Jose Banda Chloride [Moles/Vol] 102 mmol/L Normal 98-107 [facility] Comment on above: Performed By: #### R PRQ #### [facility] [address] [place] [address] Dr. Juan Jose Banda CO2 [Moles/Vol] 28.0 mmol/L Normal 21.0-32.0 [facility] Comment on above: Performed By: #### R PRQ #### [facility] [address] [place] [address] Dr. Juan Jose Banda Creatinine [Mass/Vol] 0.66 mg/dL Normal 0.55-1.02 [facility] Comment on above: Performed By: #### R PRQ #### [facility] [address] [place] [address] Dr. Juan Jose Banda EGFR-AF MALDIVIAN >60 Normal >=60 [facility] Comment on above: Performed By: #### R PRQ #### [facility] [address] [place] [address] Dr. Juan Jose Banda EGFR-NON AF MALDIVIAN >60 Normal >=60 [facility] Comment on above: Performed By: #### R PRQ #### [facility] [address] [place] [address] Dr. JuanJ ose Banda Glucose [Mass/Vol] 92 mg/dL Normal 74-106 [facility] Comment on above: Performed By: #### R PRQ #### [facility] [address] [place] [address] Dr. Juan Jose Banda Potassium [Moles/Vol] 3.4 mmol/L Critically low 3.5-5.1 [facility] Comment on above: Performed By: #### R PRQ #### [facility] [address] [place] [address] Dr. Juan Jose Banda Sodium [Moles/Vol] 136 mmol/L Normal 136-145 [facility] Comment on above: Performed By: #### R PRQ #### [facility] [address] [place] [address] Dr. Juan Jose Banda Urea nitrogen [Mass/Vol] 9.0 mg/dL Normal 6.4-19.3 [facility] Comment on above: Performed By: #### R PRQ #### [facility] [address] [place] [address] Dr. Juan Jose Banda Urea nitrogen/Creatinine [Mass ratio] 13.6 mg/mg Normal [facility] Comment on above: Performed By: #### R PRQ #### [facility] [address] [place] [address] Dr. Juan Jose Banda URINE MICROSCOPIC ONLYon BACTERIA TRACE Abnormal NONE SEEN [facility] Comment on above: Performed By: #### H IV12 #### [facility] [address] [place] [address] Dr. Juan Jose Banda Bacteria identified Cx Nom (U) NOT INDICATED Normal [facility] Comment on above: Performed By: #### H IV12 #### [facility] [address] [place] [address] Dr. Juan Jose Banda CAST NONE SEEN Normal NONE SEEN [facility] Comment on above: Performed By: #### H IV12 #### [facility] [address] [address] [address] Juan Jose Banda Crystals LM Nom (Urine sed) NONE SEEN Normal NONE SEEN [facility] Comment on above: Performed By: #### H IV12 #### [facility] [address] [place] [address] Dr. Juan Jose Banda Epithelial cells LM Ql (Urine sed) MANY Abnormal NONE SEEN /RARE [facility] Comment on above: Performed By: #### H IV12 #### [facility] [address] [place] [address] Dr. Juan Jose Banda MUCOUS TRACE Abnormal NONE SEEN [facility] Comment on above: Performed By: #### H IV12 #### [facility] [address] [place] [address] Dr. Juan Jose Banda RBC 0-2 Normal 0-2 [facility] Comment on above: Performed By: #### H IV12 #### [facility] [facility] [address] [place] [address] Dr. Juan Jose Banda WBC 0-2 Abnormal NONE SEEN [facility] Comment on above: Performed By: #### H IV12 #### [facility] [address] [place] [address] Dr. Juan Jose Banda US PREG TVon [...] LUISA ARCHIBALD Date: 2022-06-18 17:27 Normal [facility] ABO AND RH TYPEon 06-02-2022 ABO and Rh group Nom (Bld) ABO Rh Typing O Rh Positive Normal [facility] Comment on above: Performed By: #### A STUART #### [facility] [address] [place] [address] Dr. Juan Jose Banda AMYLASEon 06-02-2022 Amylase [Catalytic activity/Vol] 33 U/L Normal 25-115 [facility] Comment on above: Performed By: #### U RCX #### [facility] [address] [place] [address] Dr. Juan Jose Banda CBC AUTO DIFFon 06-02-2022 BASO # 0.0 103/ul Normal 0.0-0.1 [facility] Comment on above: Performed By: #### C OSORIO #### [facility] [address] [place] [address] Dr. Juan Jose Banad Basophils/100 WBC (Bld) 0.4 % Normal 0.2-2.0 [facility] Comment on above: Performed By: #### C OSORIO #### [facility] [address] [place] [address] Dr. Juan Jose Banda EO # 0.1 103/ul Normal 0.0-0.7 [facility] Comment on above: Performed By: #### C OSORIO #### [facility] [address] [place] [address] Dr. Juan Jose Banda Eosinophils/100 WBC (Bld) 2.2 % Normal 0.9-7.0 [facility] Comment on above: Performed By: #### C OSORIO #### [facility] [address] [place] [address] Dr. Juan Jose Banda Erythrocyte distribution width (RBC) [Ratio] 11.6 % Normal 11.0-15.0 [facility] Comment on above: Performed By: #### C OSORIO #### [facility] [address] [place] [address] Dr. Juan Jose Banda Hematocrit (Bld) [Volume fraction] 35.1 % Critically low 36.0-48.0 [facility] Comment on above: Performed By: #### C OSORIO #### [facility] [address] [address] [address] Juan Jose Banda Hemoglobin (Bld) [Mass/Vol] 12.5 g/dL Normal 12.0-16.0 [facility] Comment on above: Performed By: #### C OSORIO #### [facility] [address] [address] [address] Juan Jose Banda IG # 0.02 10e3/ul Normal 0.00-0.03 [facility] Comment on above: Performed By: #### C OSORIO #### [facility] [address] [address] [address] Juan Jose Banda IG % 0.4 % Normal 0.0-0.5 [facility] Comment on above: Performed By: #### C OSORIO #### [facility] [address] [place] [address] Dr. Juan Jose Banda LYMPH # 1.8 103/ul Normal 1.2-3.8 [facility] Comment on above: Performed By: #### C OSORIO #### [facility] [address] [place] [address] Dr. Juan Jose Banda Lymphocytes/100 WBC (Bld) 31.8 % Normal 20.5-60.0 [facility] Comment on above: Performed By: #### C OSORIO #### [facility] [address] [place] [address] Dr. Juan Jose Banda MANUAL DIFF REQ NO Normal [facility] Comment on above: Performed By: #### C OSORIO #### [facility] [address] [place] [address] Dr. Juan Jose Banda MCH (RBC) [Entitic mass] 29.9 pg Normal 26.7-34.0 [facility] Comment on above: Performed By: #### C OSOROI #### [facility] [address] [place] [address] Dr. Juan Jose Banda MCHC (RBC) [Mass/Vol] 35.6 g/dL Critically high 29.9-35.2 [facility] Comment on above: Performed By: #### C OSORIO #### [facility] [address] [address] [address] Juan Jose Banda MCV (RBC) [Entitic vol] 84.0 fL Normal 81.0-99.0 [facility] Comment on above: Performed By: #### C OSORIO #### [facility] [address] [address] [address] Juan Jose Banda MONO # 0.6 103/ul Normal 0.3-0.8 [facility] Comment on above: Performed By: #### C OSORIO #### [facility] [address] [address] [address] Juan Jose Banda Monocytes/100 WBC (Bld) 10.4 % Normal 1.7-12.0 [facility] Comment on above: Performed By: #### C OSORIO #### [facility] [address] [place] [address] Dr. Juan Jose Banda NEUT # 3.1 103/ul Normal 1.4-6.5 [facility] Comment on above: Performed By: #### C OSORIO #### [facility] [address] [place] [address] Dr. Juan Jose Banda Neutrophils/100 WBC (Bld) 54.8 % Normal 43.0-75.0 [facility] Comment on above: Performed By: #### C OSORIO #### [facility] [address] [place] [address] Dr. Juan Jose Banda Platelet mean volume (Bld) [Entitic vol] 11.8 fL Normal 9.5-13.5 [facility] Comment on above: Performed By: #### C OSORIO #### [facility] [address] [place] [address] Dr. Juan Jose Banda PLT 185 103/ul Normal 150-450 [facility] Comment on above: Performed By: #### C OSORIO #### [facility] [address] [place] [address] Dr. Juan Jose Banda RBC 4.18 106/ul Critically low 4.20-5.40 [facility] Comment on above: Performed By: #### C OSORIO #### [facility] [address] [address] [address] Juan Jose Banda WBC 5.6 103/ul Normal 4.0-11.0 [facility] Comment on above: Performed By: #### C BCMAN #### [facility] [address] [place] [address] Dr. Juan Jose Banda LIPASEon 06-02-2022 Lipase [Catalytic activity/Vol] 69.0 U/L Critically low 73.0-393.0 [facility] Comment on above: Performed By: #### U RCX #### [facility] [address] [place] [address] Dr. Juan Jose Banda PREG QUANT HCGon 06-02-2022 HCG QUANT 61153 mIU/mL Normal [facility] Comment on above: Performed By: #### R PRQ #### [facility] [address] [place] [address] Dr. Juan Jose Banda HCG RANGE SEE BELOW Normal [facility] Comment on above: Result Comment: 5-50 0.2-1 WEEK 50-500 1-2 WEEKS 100-5,000 2-3 WEEKS 500-10,000 3-4 WEEKS 1,000-50,000 4-5 WEEKS 10,000-100,000 5-6 WEEKS 15,000-200,000 6-8 WEEKS 10,000-100,000 2-3 MONTHS Performed By: #### R PRQ #### [facility] [address] [place] [address] Dr. Juan Jose Banda US PREG TVon [...] Marita SINHA Date: 2022-06-02 01:30 Normal [facility] CBC AUTO DIFFon 05-25-2022 BASO # 0.0 103/ul Normal 0.0-0.1 [facility] Comment on above: Performed By: #### H IV12 #### [facility] [address] [place] [address] Dr. Juan Jose Banda Basophils/100 WBC (Bld) 0.5 % Normal 0.2-2.0 [facility] Comment on above: Performed By: #### H IV12 #### [facility] [address] [place] [address] Dr. Juan Jose Banda EO # 0.1 103/ul Normal 0.0-0.7 [facility] Comment on above: Performed By: #### H IV12 #### [facility] [address] [place] [address] Dr. Juan Jose Banda Eosinophils/100 WBC (Bld) 1.2 % Normal 0.9-7.0 [facility] Comment on above: Performed By: #### H IV12 #### [facility] [address] [place] [address] Dr. Juan Jose Banda Erythrocyte distribution width (RBC) [Ratio] 11.6 % Normal 11.0-15.0 [facility] Comment on above: Performed By: #### H IV12 #### [facility] [address] [place] [address] Dr. Juan Jose Banda Hematocrit (Bld) [Volume fraction] 36.0 % Normal 36.0-48.0 [facility] Comment on above: Performed By: #### H IV12 #### [facility] [address] [place] [address] Dr. Juan Jose Banda Hemoglobin (Bld) [Mass/Vol] 12.7 g/dL Normal 12.0-16.0 [facility] Comment on above: Performed By: #### H IV12 #### [facility] [address] [place] [address] Dr. Juan Jose Banda IG # 0.03 10e3/ul Normal 0.00-0.03 [facility] Comment on above: Performed By: #### H IV12 #### [facility] [address] [place] [address] Dr. Juan Jose Banda IG % 0.4 % Normal 0.0-0.5 [facility] Comment on above: Performed By: #### H IV12 #### [facility] [address] [place] [address] Dr. Juan Jose Banda LYMPH # 2.4 103/ul Normal 1.2-3.8 [facility] Comment on above: Performed By: #### H IV12 #### [facility] [address] [place] [address] Dr. Juan Jose Banda Lymphocytes/100 WBC (Bld) 29.8 % Normal 20.5-60.0 [facility] Comment on above: Performed By: #### H IV12 #### [facility] [address] [place] [address] Dr. Juan Jose Banda MANUAL DIFF REQ NO Normal [facility] Comment on above: Performed By: #### H IV12 #### [facility] [address] [place] [address] Dr. Juan Jose Banda MCH (RBC) [Entitic mass] 29.9 pg Normal 26.7-34.0 [facility] Comment on above: Performed By: #### H IV12 #### [facility] [address] [place] [address] Dr. Juan Jose Banda MCHC (RBC) [Mass/Vol] 35.3 g/dL Critically high 29.9-35.2 [facility] Comment on above: Performed By: #### H IV12 #### [facility] [address] [place] [address] Dr. Juan Jose Banda MCV (RBC) [Entitic vol] 84.7 fL Normal 81.0-99.0 [facility] Comment on above: Performed By: #### H IV12 #### [facility] [address] [place] [address] Dr. Juan Jose Banda MONO # 0.8 103/ul Normal 0.3-0.8 [facility] Comment on above: Performed By: #### H IV12 #### [facility] [address] [place] [address] Dr. Juan Jose Banda Monocytes/100 WBC (Bld) 9.4 % Normal 1.7-12.0 [facility] Comment on above: Performed By: #### H IV12 #### [facility] [address] [place] [address] Dr. Juan Jose Banda NEUT # 4.8 103/ul Normal 1.4-6.5 [facility] Comment on above: Performed By: #### H IV12 #### [facility] [address] [place] [address] Dr. Juan Jose Banda Neutrophils/100 WBC (Bld) 58.7 % Normal 43.0-75.0 [facility] Comment on above: Performed By: #### H IV12 #### [facility] [address] [place] [address] Dr. Juan Jose Banda Platelet mean volume (Bld) [Entitic vol] 11.5 fL Normal 9.5-13.5 [facility] Comment on above: Performed By: #### H IV12 #### [facility] [address] [place] [address] Dr. Juan Jose Banda PLT 218 103/ul Normal 150-450 [facility] Comment on above: Performed By: #### H IV12 #### [facility] [address] [place] [address] Dr. Juan Jose Banda RBC 4.25 106/ul Normal 4.20-5.40 [facility] Comment on above: Performed By: #### H IV12 #### [facility] [address] [place] [address] Dr. Juan Jose Banda WBC 8.2 103/ul Normal 4.0-11.0 [facility] Comment on above: Performed By: #### H IV12 #### [facility] [address] [place] [address] Dr. Juan Jose LIAO URINE PROFILEon 2 Bilirubin Ql (U) Negative Normal NEGATIVE [facility] Comment on above: Performed By: #### R PRQ #### [facility] [address] [place] [address] Dr. Juan Jose Banda Clarity (U) CLEAR Normal CLEAR [facility] Comment on above: Performed By: #### R PRQ #### [facility] [address] [place] [address] Dr. Juan Jose Banda Color (U) LT. YELLOW Normal YELLOW [facility] Comment on above: Performed By: #### R PRQ #### [facility] [address] [place] [address] Dr. Juan Jose TAVAREZ A micrscopic examination will be performed if indicated. Normal [facility] Comment on above: Performed By: #### R PRQ #### [facility] [address] [place] [address] Dr. Juan Jose Banda Glucose Ql (U) Negative Normal NEGATIVE The [facility] Comment on above: Performed By: #### R PRQ #### [facility] [address] [place] [address] Dr. Juan Jose Banda Hemoglobin Ql (U) Negative Normal NEGATIVE [facility] Comment on above: Performed By: #### R PRQ #### [facility] [address] [place] [address] Dr. Juan Jose Banda Ketones Ql (U) TRACE Abnormal NEGATIVE The [facility] Comment on above: Performed By: #### R PRQ #### [facility] [address] [place] [address] Dr. Juan Jose Banda LEUKOCYTES SMALL Abnormal NEGATIVE [facility] Comment on above: Performed By: #### R PRQ #### [facility] [address] [place] [address] Dr. Juan Jose Banda Nitrite Ql (U) Negative Normal NEGATIVE The [facility] Comment on above: Performed By: #### R PRQ #### [facility] [address] [place] [address] Dr. Juan Jose Banda pH (U) 5.5 [pH] Normal 5-9 [facility] Comment on above: Performed By: #### R PRQ #### [facility] [address] [place] [address] Dr. Juan Jose Banda SPEC GRAVITY 1.025 Normal 1.005-<=1.025 [facility] Comment on above: Performed By: #### R PRQ #### [facility] [address] [place] [address] Dr. Juan Jose Banda UA PROTEIN Negative Normal NEGATIVE/ TRACE [facility] Comment on above: Performed By: #### R PRQ #### [facility] [address] [place] [address] Dr. Juan Jose Banda UR MICRO IND INDICATED Normal [facility] Comment on above: Performed By: #### R PRQ #### [facility] [address] [place] [address] Dr. Juan Jose Banda Urobilinogen Qn (U) 0.2 {Tyler'U}/dL Normal 0.2 - 1. 0 [facility] Comment on above: Performed By: #### R PRQ #### [facility] [address] [place] [address] Dr. Juan Jose Banda PREG QUANT HCGon 05-25-2022 HCG QUANT 3347 mIU/mL Normal [facility] Comment on above: Performed By: #### U RCX #### [facility] [address] [place] [address] Dr. Juan Jose Banda HCG RANGE SEE BELOW Normal [facility] Comment on above: Result Comment: 5-50 0.2-1 WEEK 50-500 1-2 WEEKS 100-5,000 2-3 WEEKS 500-10,000 3-4 WEEKS 1,000-50,000 4-5 WEEKS 10,000-100,000 5-6 WEEKS 15,000-200,000 6-8 WEEKS 10,000-100,000 2-3 MONTHS Performed By: #### U RCX #### [facility] [address] [place] [address] Dr. Juan Jose Banda PROF 14(COMP METB)on 022 Albumin [Mass/Vol] 3.7 g/dL Normal 3.4-5.0 [facility] Comment on above: Performed By: #### H IV12 #### [facility] [address] [place] [address] Dr. Juan Jose Banda Albumin/Globulin [Mass ratio] 1.4 {ratio} Normal [facility] Comment on above: Performed By: #### H IV12 #### [facility] [address] [place] [address] Dr. Juan Jose Banda ALP [Catalytic activity/Vol] 66 U/L Normal 46-116 [facility] Comment on above: Performed By: #### H IV12 #### [facility] [address] [place] [address] Dr. Juan Jose Banda ALT [Catalytic activity/Vol] 18 U/L Normal 14-59 [facility] Comment on above: Performed By: #### H IV12 #### [facility] [address] [place] [address] Dr. Juan Jose Banda Anion gap [Moles/Vol] 11.5 mmol/L Normal [facility] Comment on above: Performed By: #### H IV12 #### [facility] [address] [place] [address] Dr. Juan Jose Banda AST [Catalytic activity/Vol] 10 U/L Critically low 15-37 [facility] Comment on above: Performed By: #### H IV12 #### [facility] [address] [place] [address] Dr. Juan Jose Banda Bilirubin [Mass/Vol] 0.4 mg/dL Normal 0.2-1.0 [facility] Comment on above: Performed By: #### H IV12 #### [facility] [address] [place] [address] Dr. Juan Jose Banda Calcium [Mass/Vol] 8.3 mg/dL Critically low 8.5-10.1 [facility] Comment on above: Performed By: #### H IV12 #### [facility] [address] [address] [address] Juan Jose Banda Chloride [Moles/Vol] 104 mmol/L Normal 98-107 [facility] Comment on above: Performed By: #### H IV12 #### [facility] [address] [place] [address] Dr. Juan Jose Banda CO2 [Moles/Vol] 27.3 mmol/L Normal 21.0-32.0 [facility] Comment on above: Performed By: #### H IV12 #### [facility] [address] [place] [address] Dr. Juan Jose Banda Creatinine [Mass/Vol] 0.72 mg/dL Normal 0.55-1.02 [facility] Comment on above: Performed By: #### H IV12 #### [facility] [address] [place] [address] Dr. Juan Jose Banda EGFR-AF MALDIVIAN >60 Normal >=60 [facility] Comment on above: Performed By: #### H IV12 #### [facility] [address] [place] [address] Dr. Juan Jose Banda EGFR-NON AF MALDIVIAN >60 Normal >=60 [facility] Comment on above: Performed By: #### H IV12 #### [facility] [address] [place] [address] Dr. Juan Jose Banda Globulin (S) [Mass/Vol] 2.7 g/dL Normal [facility] Comment on above: Performed By: #### H IV12 #### [facility] [address] [address] [address] Juan Jose Banda Glucose [Mass/Vol] 95 mg/dL Normal 74-106 [facility] Comment on above: Performed By: #### H IV12 #### [facility] [address] [place] [address] Dr. Juan Jose Banda Potassium [Moles/Vol] 3.8 mmol/L Normal 3.5-5.1 [facility] Comment on above: Performed By: #### H IV12 #### [facility] [address] [place] [address] Dr. Juan Jose Banda Protein [Mass/Vol] 6.4 g/dL Normal 6.4-8.2 [facility] Comment on above: Performed By: #### H IV12 #### [facility] [address] [place] [address] Dr. Juan Jose Banda Sodium [Moles/Vol] 139 mmol/L Normal 136-145 [facility] Comment on above: Performed By: #### H IV12 #### [facility] [address] [place] [address] Dr. Juan Jose Banda Urea nitrogen [Mass/Vol] 9.0 mg/dL Normal 6.4-19.3 [facility] Comment on above: Performed By: #### H IV12 #### [facility] [address] [place] [address] Dr. Juan Jose Banda Urea nitrogen/Creatinine [Mass ratio] 12.5 mg/mg Normal [facility] Comment on above: Performed By: #### H IV12 #### [facility] [address] [place] [address] Dr. Juan Jose Banda URINE MICROSCOPIC ONLYon BACTERIA TRACE Abnormal NONE SEEN [facility] Comment on above: Performed By: #### R PRQ #### [facility] [address] [place] [address] Dr. Juan Jose Banda Bacteria identified Cx Nom (U) INDICATED Normal [facility] Comment on above: Performed By: #### R PRQ #### [facility] [address] [place] [address] Dr. Juan Jose Banda CAST NONE SEEN Normal NONE SEEN [facility] Comment on above: Performed By: #### R PRQ #### [facility] [address] [place] [address] Dr. Juan Jose Banda Crystals LM Nom (Urine sed) NONE SEEN Normal NONE SEEN [facility] Comment on above: Performed By: #### R PRQ #### [facility] [address] [place] [address] Dr. Juan Jose Banda Epithelial cells LM Ql (Urine sed) RARE Normal NONE SEEN /RARE [facility] Comment on above: Performed By: #### R PRQ #### [facility] [address] [address] [address] Juan Jose Banda MUCOUS NONE SEEN Normal NONE SEEN [facility] Comment on above: Performed By: #### R PRQ #### [facility] [address] [address] [address] Juan Jose Banda RBC 0-2 Normal 0-2 [facility] Comment on above: Performed By: #### R PRQ #### [facility] [address] [place] [address] Dr. Juan Jose Banda WBC 10-20 Abnormal NONE SEEN [facility] Comment on above: Performed By: #### R PRQ #### [facility] [address] [address] [address] ABD/PELVIS WO [...] ALICJA AVILA Date: 2022-04-29 03:19 Normal [facility] ER URINE PROFILEon 2 Bilirubin Ql (U) Negative Normal NEGATIVE [facility] Comment on above: Performed By: #### C BCMAN #### [facility] [address] [place] [address] Dr. Juan Jose Banda Clarity (U) SL CLOUDY Abnormal CLEAR [facility] Comment on above: Performed By: #### C BCJESSICA #### [facility] [address] [address] [address] Juan Jose Banda Color (U) YELLOW Normal YELLOW [facility] Comment on above: Performed By: #### C BCJESSICA #### [facility] [address] [address] [address] Juan Jose Banda ERUAHD A micrscopic examination will be performed if indicated. Normal The [facility] Comment on above: Performed By: #### C BCJESSICA #### [facility] [address] [address] [address] Juan Jose Banda Glucose Ql (U) Negative Normal NEGATIVE The [facility] Comment on above: Performed By: #### C OSORIO #### [facility] [address] [place] [address] Dr. Juan Jose Banda Hemoglobin Ql (U) Negative Normal NEGATIVE The [facility] Comment on above: Performed By: #### C OSORIO #### [facility] [address] [place] [address] Dr. Juan Jose Banda Ketones Ql (U) Negative Normal NEGATIVE [facility] Comment on above: Performed By: #### C OSORIO #### [facility] [address] [address] [address] Juan Jose Banda LEUKOCYTES Negative Normal NEGATIVE [facility] Comment on above: Performed By: #### C OSORIO #### [facility] [address] [place] [address] Dr. Juan Jose Banda Nitrite Ql (U) Negative Normal NEGATIVE [facility] Comment on above: Performed By: #### C OSORIO #### [facility] [address] [address] [address] Juan Jose Banda pH (U) 6.0 [pH] Normal 5-9 [facility] Comment on above: Performed By: #### C OSORIO #### [facility] [address] [place] [address] Dr. Juan Jose Banda SPEC GRAVITY >=1.030 Abnormal 1.005-<=1.025 [facility] Comment on above: Performed By: #### C BCMAN #### [facility] [address] [address] [address] Juan Jose Banda UA PROTEIN Negative Normal NEGATIVE/ TRACE The [facility] Comment on above: Performed By: #### C BCMAN #### [facility] [address] [address] [address] Juan Jose Banda UR MICRO IND NOT INDICATED Normal The [facility] Comment on above: Performed By: #### C BCMAN #### [facility] [address] [address] [address] Juan Jose Banda Urobilinogen Qn (U) 0.2 {Tyler'U}/dL Normal 0.2 - 1. 0 [facility] Comment on above: Performed By: #### C BCMAN #### [facility] [address] [place] [address] Dr. Juan Jose Banda URon 04-29-2022 , QUAL Negative Normal NEGATIVE The [facility] Comment on above: Performed By: #### C DILLONMAN #### [facility] [address] [place] [address] Dr. Juan Jose Banda PROCALCITONINon 04-13-2022 Procalcitonin 0.04 ng/mL Normal 0.00-0.08 The [facility] Comment on above: Result Comment: . A [...] ng/mL are obtained. Performed By: #### C BCMAN #### [facility] [address] [address] [address] Juan Jose Banda CBC AUTO DIFFon 04-10-2022 BASO # 0.0 103/ul Normal 0.0-0.1 [facility] Comment on above: Performed By: #### C BC #### [facility] [address] [place] [address] Dr. Juan Jose Banda Basophils/100 WBC (Bld) 0.3 % Normal 0.2-2.0 [facility] Comment on above: Performed By: #### C BC #### [facility] [address] [place] [address] Dr. Juan Jose Banda EO # 0.2 103/ul Normal 0.0-0.7 [facility] Comment on above: Performed By: #### C BC #### [facility] [address] [place] [address] Dr. Juan Jose Banda Eosinophils/100 WBC (Bld) 2.5 % Normal 0.9-7.0 [facility] Comment on above: Performed By: #### C BC #### [facility] [address] [place] [address] Dr. Juan Jose Banda Erythrocyte distribution width (RBC) [Ratio] 11.6 % Normal 11.0-15.0 [facility] Comment on above: Performed By: #### C BC #### [facility] [address] [place] [address] Dr. Juan Jose Banda Hematocrit (Bld) [Volume fraction] 38.2 % Normal 36.0-48.0 [facility] Comment on above: Performed By: #### C BC #### [facility] [address] [place] [address] Dr. Juan Jose Banda Hemoglobin (Bld) [Mass/Vol] 13.5 g/dL Normal 12.0-16.0 [facility] Comment on above: Performed By: #### C BC #### [facility] [address] [place] [address] Dr. Juan Jose Banda IG # 0.01 10e3/ul Normal 0.00-0.03 [facility] Comment on above: Performed By: #### C BC #### [facility] [address] [place] [address] Dr. Juan Jose Banda IG % 0.2 % Normal 0.0-0.5 [facility] Comment on above: Performed By: #### C BC #### [facility] [address] [place] [address] Dr. Juan Jose Banda LYMPH # 2.2 103/ul Normal 1.2-3.8 [facility] Comment on above: Performed By: #### C BC #### [facility] [address] [place] [address] Dr. Juan Jose Banda Lymphocytes/100 WBC (Bld) 33.3 % Normal 20.5-60.0 [facility] Comment on above: Performed By: #### C BC #### [facility] [address] [place] [address] Dr. Juan Jose Banda MANUAL DIFF REQ NO Normal [facility] Comment on above: Performed By: #### C BC #### [facility] [address] [place] [address] Dr. Juan Jose Banda MCH (RBC) [Entitic mass] 29.6 pg Normal 26.7-34.0 [facility] Comment on above: Performed By: #### C BC #### [facility] [address] [place] [address] Dr. Juan Jose Banda MCHC (RBC) [Mass/Vol] 35.3 g/dL Critically high 29.9-35.2 [facility] Comment on above: Performed By: #### C BC #### [facility] [address] [place] [address] Dr. Juan Jose Banda MCV (RBC) [Entitic vol] 83.8 fL Normal 81.0-99.0 [facility] Comment on above: Performed By: #### C BC #### [facility] [address] [place] [address] Dr. Juan Jose Banda MONO # 0.7 103/ul Normal 0.3-0.8 [facility] Comment on above: Performed By: #### C BC #### [facility] [address] [place] [address] Dr. Juan Jose Banda Monocytes/100 WBC (Bld) 10.2 % Normal 1.7-12.0 [facility] Comment on above: Performed By: #### C BC #### [facility] [address] [place] [address] Dr. Juan Jose Banda NEUT # 3.5 103/ul Normal 1.4-6.5 [facility] Comment on above: Performed By: #### C BC #### [facility] [address] [place] [address] Dr. Juan Jose Banda Neutrophils/100 WBC (Bld) 53.5 % Normal 43.0-75.0 [facility] Comment on above: Performed By: #### C BC #### [facility] [address] [place] [address] Dr. Juan Jose Banda Platelet mean volume (Bld) [Entitic vol] 11.9 fL Normal 9.5-13.5 [facility] Comment on above: Performed By: #### C BC #### [facility] [address] [place] [address] Dr. Juan Jose Banda PLT 200 103/ul Normal 150-450 [facility] Comment on above: Performed By: #### C BC #### [facility] [address] [place] [address] Dr. Juan Jose Banda RBC 4.56 106/ul Normal 4.20-5.40 [facility] Comment on above: Performed By: #### C BC #### [facility] [address] [place] [address] Dr. Juan Jose Banda WBC 6.5 103/ul Normal 4.0-11.0 [facility] Comment on above: Performed By: #### C BC #### [facility] [address] [place] [address] [address] ABD/PELV W [...] by: YO TO Date: 2022-04-10 08:37 Normal [facility] GROUP A STREP CULTUREon S. pyogenes Ag Ql (Unsp spec) Culture Observations: NEGATIVE FOR GROUP A STREPTOCOCCUS. Normal [facility] Comment on above: Performed By: #### U RCX #### [facility] [address] [place] [address] Dr. Juan Jose Banda LACTATE/LACTIC ACIDon 2021 Lactate [Moles/Vol] 0.9 mmol/L Normal 0.4-1.9 [facility] Comment on above: Performed By: #### U RCX #### [facility] [address] [address] [address] Juan Jose Banda Lactate [Moles/Vol] 2.5 mmol/L Critically high 0.4-1.9 [facility] Comment on above: Performed By: #### U RCX #### [facility] [address] [address] [address] Juan Jose Banda PREG HCG QUALon 04-10-2022 , QUAL Negative Normal NEGATIVE [facility] Comment on above: Performed By: #### S EDR #### [facility] [address] [address] [address] Juan Jose Banda PROF 14(COMP METB)on 022 Albumin [Mass/Vol] 4.3 g/dL Normal 3.4-5.0 [facility] Comment on above: Performed By: #### C DILLONMAN #### [facility] [address] [place] [address] Dr. Juan Jose Banda Albumin/Globulin [Mass ratio] 1.8 {ratio} Normal [facility] Comment on above: Performed By: #### C BCMAN #### [facility] [address] [place] [address] Dr. Juan Jose Banda ALP [Catalytic activity/Vol] 92 U/L Normal 46-116 [facility] Comment on above: Performed By: #### C BCMAN #### [facility] [address] [address] [address] Juan Jose Banda ALT [Catalytic activity/Vol] 20 U/L Normal 14-59 [facility] Comment on above: Performed By: #### C BCMAN #### [facility] [address] [address] [address] Juan Jose Banda Anion gap [Moles/Vol] 15.4 mmol/L Normal [facility] Comment on above: Performed By: #### C BCMAN #### [facility] [address] [place] [address] Dr. Juan Jose Banda AST [Catalytic activity/Vol] 17 U/L Normal 15-37 [facility] Comment on above: Performed By: #### C BCMAN #### [facility] [address] [address] [address] Juan Jose Banda Bilirubin [Mass/Vol] 1.2 mg/dL Critically high 0.2-1.0 [facility] Comment on above: Performed By: #### C BCMAN #### [facility] [address] [address] [address] Juan Jose Banda Calcium [Mass/Vol] 8.8 mg/dL Normal 8.5-10.1 [facility] Comment on above: Performed By: #### C BCMAN #### [facility] [address] [address] [address] Juan Jose Banda Chloride [Moles/Vol] 107 mmol/L Normal 98-107 [facility] Comment on above: Performed By: #### C BCMAN #### [facility] [address] [address] [address] Juan Jose Banda CO2 [Moles/Vol] 23.0 mmol/L Normal 21.0-32.0 [facility] Comment on above: Performed By: #### C BCMAN #### [facility] [address] [address] [address] Juan Jose Banda Creatinine [Mass/Vol] 0.95 mg/dL Normal 0.55-1.02 [facility] Comment on above: Performed By: #### C BCMAN #### [facility] [address] [address] [address] Juan Jose Banda Globulin (S) [Mass/Vol] 2.4 g/dL Normal [facility] Comment on above: Performed By: #### C BCMAN #### [facility] [address] [address] [address] Juan Jose Banda Glucose [Mass/Vol] 95 mg/dL Normal 74-106 [facility] Comment on above: Performed By: #### C BCMAN #### [facility] [address] [address] [address] Juan Jose Banda Potassium [Moles/Vol] 3.4 mmol/L Critically low 3.5-5.1 [facility] Comment on above: Performed By: #### C BCMAN #### [facility] [address] [address] [address] Juan Jose Banda Protein [Mass/Vol] 6.7 g/dL Normal 6.4-8.2 [facility] Comment on above: Performed By: #### C BCMAN #### [facility] [address] [address] [address] Juan Jose Banda Sodium [Moles/Vol] 142 mmol/L Normal 136-145 [facility] Comment on above: Performed By: #### C BCMAN #### [facility] [address] [address] [address] Juan Jose Banda Urea nitrogen [Mass/Vol] 13.0 mg/dL Normal 6.4-19.3 [facility] Comment on above: Performed By: #### C DILLONMAN #### [facility] [address] [address] [address] Juan Jose Banda Urea nitrogen/Creatinine [Mass ratio] 13.7 mg/mg Normal [facility] Comment on above: Performed By: #### C BCMAN #### [facility] [address] [address] [address] Juan Jose Banda SED RATE WESTERGRENon 2021 SED RATE 1 mm/hr Normal <=20 [facility] Comment on above: Performed By: #### S EDR #### [facility] [address] [address] [address] Juan Jose Banda STREPT SCREENon 04-10-2022 STREP SCREEN A Negative Normal NEGATIVE [facility] Comment on above: Performed By: #### U RCX #### [facility] [address] [address] [address] Juan Jose Banda AMYLASEon 04-07-2022 Amylase [Catalytic activity/Vol] 29 U/L Normal 25-115 [facility] Comment on above: Performed By: #### H IV12 #### [facility] [address] [address] [address] Juan Jose Banda CBC AUTO DIFFon 04-07-2022 BASO # 0.0 103/ul Normal 0.0-0.1 [facility] Comment on above: Performed By: #### R PRQ #### [facility] [address] [place] [address] Dr. Juan Jose Banda Basophils/100 WBC (Bld) 0.4 % Normal 0.2-2.0 [facility] Comment on above: Performed By: #### R PRQ #### [facility] [address] [place] [address] Dr. Juan Jose Banda EO # 0.1 103/ul Normal 0.0-0.7 [facility] Comment on above: Performed By: #### R PRQ #### [facility] [address] [place] [address] Dr. Juan Jose Banda Eosinophils/100 WBC (Bld) 1.4 % Normal 0.9-7.0 [facility] Comment on above: Performed By: #### R PRQ #### [facility] [address] [place] [address] Dr. Juan Jose Banda Erythrocyte distribution width (RBC) [Ratio] 11.5 % Normal 11.0-15.0 [facility] Comment on above: Performed By: #### R PRQ #### [facility] [address] [place] [address] Dr. Juan Jose Banda Hematocrit (Bld) [Volume fraction] 36.5 % Normal 36.0-48.0 [facility] Comment on above: Performed By: #### R PRQ #### [facility] [address] [place] [address] Dr. Juan Jose Banda Hemoglobin (Bld) [Mass/Vol] 13.0 g/dL Normal 12.0-16.0 [facility] Comment on above: Performed By: #### R PRQ #### [facility] [address] [place] [address] Dr. Juan Jose Banda IG # 0.02 10e3/ul Normal 0.00-0.03 [facility] Comment on above: Performed By: #### R PRQ #### [facility] [address] [place] [address] Dr. Juan Jose Banda IG % 0.3 % Normal 0.0-0.5 [facility] Comment on above: Performed By: #### R PRQ #### [facility] [address] [place] [address] Dr. Juan Jose Banda LYMPH # 2.4 103/ul Normal 1.2-3.8 [facility] Comment on above: Performed By: #### R PRQ #### [facility] [address] [place] [address] Dr. Juan Jose Banda Lymphocytes/100 WBC (Bld) 31.4 % Normal 20.5-60.0 [facility] Comment on above: Performed By: #### R PRQ #### [facility] [address] [place] [address] Dr. Juan Jose Banda MANUAL DIFF REQ NO Normal [facility] Comment on above: Performed By: #### R PRQ #### [facility] [address] [place] [address] Dr. Juan Jose Banda MCH (RBC) [Entitic mass] 29.8 pg Normal 26.7-34.0 [facility] Comment on above: Performed By: #### R PRQ #### [facility] [address] [place] [address] Dr. Juan Jose Banda MCHC (RBC) [Mass/Vol] 35.6 g/dL Critically high 29.9-35.2 [facility] Comment on above: Performed By: #### R PRQ #### [facility] [address] [place] [address] Dr. Juan Jose Banda MCV (RBC) [Entitic vol] 83.7 fL Normal 81.0-99.0 [facility] Comment on above: Performed By: #### R PRQ #### [facility] [address] [place] [address] Dr. Juan Jose Banda MONO # 0.9 103/ul Critically high 0.3-0.8 [facility] Comment on above: Performed By: #### R PRQ #### [facility] [address] [place] [address] Dr. Juan Jose aBnda Monocytes/100 WBC (Bld) 11.1 % Normal 1.7-12.0 [facility] Comment on above: Performed By: #### R PRQ #### [facility] [address] [place] [address] Dr. Juan Jose Banda NEUT # 4.3 103/ul Normal 1.4-6.5 [facility] Comment on above: Performed By: #### R PRQ #### [facility] [address] [place] [address] Dr. Juan Jose Banda Neutrophils/100 WBC (Bld) 55.4 % Normal 43.0-75.0 [facility] Comment on above: Performed By: #### R PRQ #### [facility] [address] [place] [address] Dr. Juan Jose Banda Platelet mean volume (Bld) [Entitic vol] 11.6 fL Normal 9.5-13.5 [facility] Comment on above: Performed By: #### R PRQ #### [facility] [address] [place] [address] Dr. Juan Jose Banda PLT 187 103/ul Normal 150-450 [facility] Comment on above: Performed By: #### R PRQ #### [facility] [address] [place] [address] Dr. Juan Jose Banda RBC 4.36 106/ul Normal 4.20-5.40 [facility] Comment on above: Performed By: #### R PRQ #### [facility] [address] [place] [address] Dr. Juan Jose Banda WBC 7.7 103/ul Normal 4.0-11.0 [facility] Comment on above: Performed By: #### R PRQ #### [facility] [address] [place] [address] Dr. Juan Jose Banda ER URINE PROFILEon 2 Bilirubin Ql (U) SMALL Abnormal NEGATIVE [facility] Comment on above: Performed By: #### U RCX #### [facility] [address] [place] [address] Dr. Juan Jose Banda Clarity (U) CLEAR Normal CLEAR [facility] Comment on above: Performed By: #### U RCX #### [facility] [address] [place] [address] Dr. Juan Jose Banda Color (U) YELLOW Normal YELLOW [facility] Comment on above: Performed By: #### U RCX #### [facility] [address] [place] [address] Dr. Juan Jose TAVAREZ A micrscopic examination will be performed if indicated. Normal [facility] Comment on above: Performed By: #### U RCX #### [facility] [address] [place] [address] Dr. Juan Jose Banda Glucose Ql (U) Negative Normal NEGATIVE [facility] Comment on above: Performed By: #### U RCX #### [facility] [address] [place] [address] Dr. Juan Jose Banda Hemoglobin Ql (U) Negative Normal NEGATIVE [facility] Comment on above: Performed By: #### U RCX #### [facility] [address] [place] [address] Dr. Juan Jose Banda Ketones Ql (U) 40 mg/dl Abnormal NEGATIVE [facility] Comment on above: Performed By: #### U RCX #### [facility] [address] [place] [address] Dr. Juan Jose Banda LEUKOCYTES Negative Normal NEGATIVE [facility] Comment on above: Performed By: #### U RCX #### [facility] [address] [place] [address] Dr. Juan Jose Banda Nitrite Ql (U) Negative Normal NEGATIVE [facility] Comment on above: Performed By: #### U RCX #### [facility] [address] [place] [address] Dr. Juan Jose Banda pH (U) 5.5 [pH] Normal 5-9 [facility] Comment on above: Performed By: #### U RCX #### [facility] [address] [place] [address] Dr. Juan Jose Banda SPEC GRAVITY 1.030 Abnormal 1.005-<=1.025 [facility] Comment on above: Performed By: #### U RCX #### [facility] [address] [place] [address] Dr. Juan Jose Banda UA PROTEIN Negative Normal NEGATIVE/ TRACE [facility] Comment on above: Performed By: #### U RCX #### [facility] [address] [place] [address] Dr. Juan Jose Banda UR MICRO IND NOT INDICATED Normal [facility] Comment on above: Performed By: #### U RCX #### [facility] [address] [place] [address] Dr. Juan Jose Banda Urobilinogen Qn (U) 0.2 {Tyler'U}/dL Normal 0.2 - 1. 0 [facility] Comment on above: Performed By: #### U RCX #### [facility] [address] [place] [address] Dr. Juan Jose Banda LIPASEon 04-07-2022 Lipase [Catalytic activity/Vol] 77.0 U/L Normal 73.0-393.0 [facility] Comment on above: Performed By: #### H IV12 #### [facility] [address] [place] [address] Dr. Juan Jose Banda URon 04-07-2022 , QUAL Negative Normal NEGATIVE [facility] Comment on above: Performed By: #### U RCX #### [facility] [address] [place] [address] Dr. Juan Jose Banda PROF 14(COMP METB)on 022 Albumin [Mass/Vol] 4.4 g/dL Normal 3.4-5.0 [facility] Comment on above: Performed By: #### H IV12 #### [facility] [address] [place] [address] Dr. Juan Jose Banda Albumin/Globulin [Mass ratio] 1.5 {ratio} Normal [facility] [facility] Comment on above: Performed By: #### H IV12 #### [facility] [address] [place] [address] Dr. Juan Jose Banda ALP [Catalytic activity/Vol] 97 U/L Normal 46-116 [facility] Comment on above: Performed By: #### H IV12 #### [facility] [address] [address] [address] Juan Jose Banda ALT [Catalytic activity/Vol] 16 U/L Normal 14-59 [facility] Comment on above: Performed By: #### H IV12 #### [facility] [address] [address] [address] Juan Jose Banda Anion gap [Moles/Vol] 15.4 mmol/L Normal [facility] Comment on above: Performed By: #### H IV12 #### [facility] [address] [address] [address] Juan Jose Banda AST [Catalytic activity/Vol] 19 U/L Normal 15-37 [facility] Comment on above: Performed By: #### H IV12 #### [facility] [address] [place] [address] Dr. Juan Jose Banda Bilirubin [Mass/Vol] 0.9 mg/dL Normal 0.2-1.0 [facility] Comment on above: Performed By: #### H IV12 #### [facility] [address] [place] [address] Dr. Juan Jose Banda Calcium [Mass/Vol] 9.2 mg/dL Normal 8.5-10.1 [facility] Comment on above: Performed By: #### H IV12 #### [facility] [address] [address] [address] Juan Jose Banda Chloride [Moles/Vol] 107 mmol/L Normal 98-107 [facility] Comment on above: Performed By: #### H IV12 #### [facility] [address] [address] [address] Juan Jose Banda CO2 [Moles/Vol] 22.2 mmol/L Normal 21.0-32.0 [facility] Comment on above: Performed By: #### H IV12 #### [facility] [address] [place] [address] Dr. Juan Jose Banda Creatinine [Mass/Vol] 0.94 mg/dL Normal 0.55-1.02 [facility] Comment on above: Performed By: #### H IV12 #### [facility] [address] [address] [address] Juan Jose Banda EGFR-AF MALDIVIAN >60 Normal >=60 [facility] Comment on above: Performed By: #### H IV12 #### [facility] [address] [place] [address] Dr. Juan Jose Banda EGFR-NON AF MALDIVIAN >60 Normal >=60 [facility] Comment on above: Performed By: #### H IV12 #### [facility] [address] [address] [address] Juan Jose Banda Globulin (S) [Mass/Vol] 2.9 g/dL Normal [facility] Comment on above: Performed By: #### H IV12 #### [facility] [address] [place] [address] Dr. Juan Jose Banda Glucose [Mass/Vol] 93 mg/dL Normal 74-106 [facility] Comment on above: Performed By: #### H IV12 #### [facility] [address] [place] [address] Dr. Juan Jose Banda Potassium [Moles/Vol] 3.6 mmol/L Normal 3.5-5.1 [facility] Comment on above: Performed By: #### H IV12 #### [facility] [address] [place] [address] Dr. Juan Jose Banda Protein [Mass/Vol] 7.3 g/dL Normal 6.4-8.2 [facility] Comment on above: Performed By: #### H IV12 #### [facility] [address] [address] [address] Juan Jose Banda Sodium [Moles/Vol] 141 mmol/L Normal 136-145 [facility] Comment on above: Performed By: #### H IV12 #### [facility] [address] [place] [address] Dr. Juan Jose Banda Urea nitrogen [Mass/Vol] 14.0 mg/dL Normal 6.4-19.3 [facility] Comment on above: Performed By: #### H IV12 #### [facility] [address] [place] [address] Dr. Juan Jose Banda Urea nitrogen/Creatinine [Mass ratio] 14.9 mg/mg Normal [facility] Comment on above: Performed By: #### H IV12 #### [facility] [address] [place] [address] Dr. Juan Jose Banda HCG-BETA SUBUNIT QUANTon hCG,Beta Subunit,Qnt,Serum <1 Normal [facility] Comment on above: Result Comment: Fema le (Non-) 0 - 5 (Postmenopausal) 0 - 8 . Female () Weeks of Gestation 3 6 - 71 4 10 - 750 5 459 - 0673 6 943 - 06404 7 6799 -[phone] 8 64294 -[phone] 9 [phone] -[phone] 10 61961 -[phone] 12 52978 -[phone] 14 82940 - 96826 15 61453 - 45151 16 6340 - 56681 17 1123 - 15455 18 7737 - 39206 Serena ECLIA methodology Performed By: #### R PRQ #### [facility] [address] [place] [address] Dr. Juan Jose Banda MR head/brain wo/w conon MR head/brain wo/w con [facility] [place] [id number] MRI Report Signed Patient: Kemi Piper MR#: [id number] 59 : 2005 Acct:[id number] Age/Sex: 15 / F ADM Date: 12/15/20 Loc: [facility] Room: Type: [facility] Attending Dr: Horace Dillard DO Ordering Provider: [...] Huynh Jr., M.D.12/15/2020 2:41 PM Dictation Location: [place] [address] Transcribed By: [facility] 12/15/20 1441 Dictated By: Zackary Huynh Jr, MD 12/15/20 1426 Signed By: 12/15/20 1441 [facility] Vital Signs Date Time Vital Sign Value Performing Clinician Mitchell george 11-08-2024 11:15-0400 Body mass index (BMI) [Ratio] 21.69 kg/m2 Wolfgang Yasmin DO Work Phone: [facility] 11-08-2024 11:15-0400 Body weight 60.96 kg Wolfgang Yasmin DO Work Phone: [facility] 11-08-2024 11:15-0400 Diastolic blood pressure 70 mm[Hg] Wolfgang Yasmin DO Work Phone: [facility] 11-08-2024 11:15-0400 Systolic blood pressure 120 mm[Hg] Wolfgang Yasmin DO Work Phone: [facility] 10-18-2023 10:03-0400 Body height 175.3 cm Viki Trevizooll SUPERVISOR WET ENDAccurIC Work Phone: [facility] 10-18-2023 10:03-0400 Body mass index (BMI) [Ratio] 19.73 kg/m2 Viki Trevizooll SUPERVISOR WET END-RESEARCH AND EVALUATION ANALYST Work Phone: [facility] 10-18-2023 10:03-0400 Body weight 60.6 kg Viki Trevizooll SUPERVISOR WET END-RESEARCH AND EVALUATION ANALYST Work Phone: [facility] 10-18-2023 10:03-0400 Diastolic blood pressure 62 mm[Hg] Viki Ocasio SUPERVISOR WET END-RESEARCH AND EVALUATION ANALYST [facility] 10-18-2023 10:03-0400 Heart rate 74 /min Viki Ocasio SUPERVISOR WET END-RESEARCH AND EVALUATION ANALYST Work Phone: [facility] 10-18-2023 10:03-0400 Systolic blood pressure 123 mm[Hg] Viki Ocasio SUPERVISOR WET END-RESEARCH AND EVALUATION ANALYST Work Phone: [facility] 09-28-2023 09:20-0500 Body height 175.3 cm Pmh 2 [facility] 09-28-2023 09:20-0500 Body mass index (BMI) [Ratio] 19.64 kg/m2 [facility] 2 [facility] 09-28-2023 09:20-0500 Body weight 60.33 kg Pm 2 [facility] Encounters Encounter Date Encounter Type Care Provider Facility Start: 11-08-2024 End: 11-08-2024 Bamboo flowsheet Wolfgang Yasmin DO Work Phone: [facility] Start: 11-08-2024 End: 11-08-2024 Bamboo flowsheet Wolfgang Yasmin DO Work Phone: [facility] Start: 11-08-2024 End: 11-08-2024 Office outpatient visit 15 minutes Wolfgang Yasmin DO Work Phone: [facility] Comment on above: PCOS (polycystic ova harika syndrome) (Primary Dx) Start: 11-08-2024 End: 11-08-2024 ambulatory WOLFGANG YASMIN Not Available Start: 11-02-2024 End: 11-02-2024 Clinisync Result Encounter Wolfgang Yasmin DO Work Phone: [facility] Unsolicited Start: 11-02-2024 End: 11-02-2024 Clinisync Result Encounter Wolfgang Yasmin DO Work Phone: [facility] Unsolicited Start: 10-01-2024 End: 10-01-2024 Clinisync Result Encounter Wolfgang Yasmin DO Work Phone: [facility] Unsolicited Start: 10-01-2024 End: 10-01-2024 Clinisync Result Encounter Wolfgang Yasmin DO Work Phone: [facility] Unsolicited Start: 09-25-2024 End: 09-25-2024 Office outpatient visit 15 minutes Wolfgang Yasmin DO Work Phone: [facility] Comment on above: PCOS (polycystic [...] Not Available Start: 11-03-2023 Telephone encounter [facility] Start: 10-18-2023 End: 10-18-2023 ambulatory [facility] Start: 10-18-2023 End: 10-18-2023 Postop follow up visit related to original px [facility] SUPERVISOR WET END-RESEARCH AND EVALUATION ANALYST Work Phone: [facility] Comment on above: Status post laparosc opic cholecystectomy (Primary Dx) Start: 10-03-2023 End: 10-03-2023 Evaluation and management of inpatient [facility] Start: 10-03-2023 End: 10-03-2023 Evaluation and management of inpatient [facility] Start: 09-28-2023 End: 09-29-2023 ambulatory [facility] Start: 09-28-2023 Encounter for other preprocedural examination [facility] Start: 09-28-2023 End: 09-28-2023 Patient encounter procedure [facility] Pre-Admission Testing 2 [facility] - Pre Admit Comment on above: Preop examination (P rimary Dx); Asthma, unspecified asthma severity, unspecified whether complicated, unspecified whether persistent Start: 09-28-2023 End: 09-28-2023 Preprocedural examination done Pm 2 [facility] Start: 09-27-2023 End: 09-27-2023 ambulatory [facility] Start: 09-27-2023 End: 09-27-2023 Office outpatient new 30 minutes Alo Morgan MD Work Phone: [facility] Comment on above: Biliary colic (Prima ry Dx) Start: 09-13-2023 Telephone encounter Gurmeet Morgan MD Work Phone: [facility] Start: 08-30-2023 End: 08-31-2023 Evaluation and management of inpatient [facility] Start: 08-24-2023 ambulatory [facility] Start: 08-23-2023 Telephone encounter Paola Temple CMA [facility] Start: 08-23-2023 ambulatory [facility] Start: 08-16-2023 Telephone encounter Alicja Beltre DO Work Phone: [facility] Start: 07-29-2023 ambulatory Rashard Hoy Facility:[facility] Start: 07-26-2023 End: 07-27-2023 ambulatory Rashard Hoy Facility:[facility] Start: 07-26-2023 End: 07-26-2023 Patient encounter procedure Alicja LINARES [facility] Start: 07-12-2023 ambulatory Rashard Hoy Facility:[facility] Start: 06-27-2023 ambulatory Rashard y Facility:[facility] Start: 01-05-2023 Evaluation and manag [...] Procedures Date Procedure Procedure Detail Performing Clinician Start: 11-02-2024 [facility] PREG QUANT HCG Wolfgang Doeo DO Work Phone: Start: 10-01-2024 ALL CBC WITH AUTO DIFF Wolfgang Doeo DO Work Phone: Appendectomy Alicja LANGFORDRachel History of cholecystectomy Status post laparoscopic cholecystectomy Viki Ocasio SUPERVISOR WET END-RESEARCH AND EVALUATION ANALYST Work Phone: Plan of Treatment Date Care Activity Detail Author Start: 03-25-2026 DTaP,Tdap and Td Vac cines (7 - Td or Tdap) DTaP,Tdap and Td Vaccines (7 - Td or Tdap) [facility] Start: 12-06-2024 End: 12-06-2024 ambulatory 12/06/2024 1:00 PM EDT Initial [facility] [address] [place] [address] [facility] Start: 12-06-2024 End: 12-06-2024 Professional / ancillary services management 12/06/2024 12:30 PM EDT Ancillary Procedure [facility] [address] [place] [address] [facility] Start: 11-12-2024 End: 11-12-2024 Patient encounter procedure 11/12/2024 2:00 PM EDT Office Visit [facility] [address] [place] [address] Wolfgang Hoffman, DO [address] [place] [address] [facility] Start: 11-08-2024 End: 11-08-2024 Patient encounter procedure 11/08/2024 11:30 AM EDT Office Visit [facility] [address] [phone] Wolfgang Hoffman, DO [address] [place] [address] Arrived [facility] Comment on above: Arrived Start: 10-17-2024 Adult BMI Screening Adult BMI Screen ing [facility] Start: 10-17-2024 Tobacco Screening Tobacco Screening [facility] Start: 10-03-2024 Adult BMI Screening Adult BMI Screen ing [facility] Start: 10-03-2024 Tobacco Screening Tobacco Screening [facility] Start: 09-28-2024 Adult BMI Screening Adult BMI Screen ing [facility] Start: 09-28-2024 Tobacco Screening Tobacco Screening [facility] Start: 09-27-2024 Tobacco Screening Tobacco Screening [facility] Start: 09-25-2024 End: 09-25-2024 Patient encounter procedure 09/25/2024 3:00 PM EST Office Visit [facility] [address] [address] Wolfgang Hoffman, DO [address] [place] [address] Arrived [facility] Comment on above: Arrived Start: 09-25-2024 End: 09-25-2025 DHEA DHEA Lab Routine PCOS (polycystic ovarian syndrome) Expected: 09/25/2024 (Approximate), Expires: 09/25/2025 [facility] Comment on above: Expected: 09/25/2024 (Approximate), Expires: 09/25/2025 Start: 09-25-2024 End: 09-25-2025 US Pelvis US Pelvis w/ TV Imaging Routine PCOS (polycystic ovarian syndrome) Expected: 09/25/2024, Expires: 09/25/2025 [facility] Comment on above: Expected: 09/25/2024 , Expires: 09/25/2025 Start: 10-18-2023 End: 10-18-2023 Patient encounter procedure 10/18/2023 10:00 AM EDT [facility] [address] [place] [phone] Viki Ocasio, SUPERVISOR WET [facility] [address] [place], [place] [id number] [facility] Start: 10-03-2023 End: 10-03-2023 Admission to same day surgery center 10/03/2023 11:00 AM EST - 10/03/2023 12:55 PM EST Surgery [facility] - Surgery [address] [address] Alo Morgan MD [address] [place] [phone] DAVINCI CHOLECYSTECTOMY [14574 (CPT )] [facility] Comment on above: DAVINCI CHOLECYSTECT NATI [36022 (CPT )] Start: 10-03-2023 End: 10-03-2023 Laparoscopy surg cholecystectomy DAVINCI CHOLECYSTECTOMY biliary colic 10/03/2023 11:00 AM EST [facility] Start: 10-03-2023 Subsequent hospital visit by physician 10/03/2023 11:00 AM EST Hospital Encounter [facility] - Surgery [address] [place] [phone] Alo Morgan MD [address] [place] [phone] [facility] - Surgery Start: 09-27-2023 End: 09-27-2023 Patient encounter procedure 09/27/2023 11:00 AM EST Office Visit [facility] [address] [place] [address] Alo Morgan MD [address] [place] [address] [facility] Start: 08-23-2023 End: 08-23-2023 Patient encounter procedure 08/23/2023 10:45 AM EST Office Visit [facility] [address] [place] [address] Alo Morgan MD [address] [place] [address] [facility] Surgery Start: 04-08-2023 Influenza vaccination Influenza Vacc ine [facility] Start: 04-03-2022 Adult BMI Screening Adult BMI Screen ing [facility] Start: 2015 Depression Screening Depression Scre ening [facility] Start: 2015 Tobacco Screening Tobacco Screening [facility] Start: 2003 Tobacco Counseling Tobacco Counselin g [facility] CBC W Auto Different ial panel - Blood CBC and differential Lab Routine PCOS (polycystic ovarian syndrome) Ordered: 09/25/2024 [facility] Comment on above: Ordered: 09/25/2024 DHEA-sulfate DHEA-sulfate Lab Routine PCOS (polycystic ovarian syndrome) Ordered: 09/25/2024 [facility] Comment on above: Ordered: 09/25/2024 Follicle stimulating hormone Follicle stimulating hormone Lab Routine PCOS (polycystic ovarian syndrome) Ordered: 09/25/2024 [facility] Comment on above: Ordered: 09/25/2024 hCG, quantitative, hCG, quantitative, Lab Routine PCOS (polycystic ovarian syndrome) Ordered: 09/25/2024 [facility] Work Phone: Comment on above: Ordered: 09/25/2024 Hemoglobin A1c/Hemoglobin.total in Blood Hemoglobin A1c Lab Routine PCOS (polycystic ovarian syndrome) Ordered: 09/25/2024 [facility] Comment on above: Ordered: 09/25/2024 Luteinizing hormone Luteinizing hormone Lab Routine PCOS (polycystic ovarian syndrome) Ordered: 09/25/2024 [facility] Comment on above: Ordered: 09/25/2024 Thyrotropin [Units/volume] in Serum or Plasma TSH Lab Routine PCOS (polycystic ovarian syndrome) Ordered: 09/25/2024 [facility] [email or web address] Work Phone: Comment on above: Ordered: 09/25/2024 Thyroxine (T4) free [Mass/volume] in Serum or Plasma T4, free Lab Routine PCOS (polycystic ovarian syndrome) Ordered: 09/25/2024 [facility] [email or web address] Comment on above: Ordered: 09/25/2024 End: 09-26-2024 Unlisted Procedure / Surgery Unlisted Procedure / Surgery Procedures Routine Biliary colic 1 Occurrences starting 09/27/2023 until 09/26/2024 [facility] Work Phone: Comment on above: 1 Occurrences starti ng 09/27/2023 until 09/26/2024 Immunizations Immunization Date Immunization Notes Care Provider [facility] 06-23-2021 influenza virus vaccine, unspecified formulation Paola Temple [facility] 06-22-2016 influenza virus vaccine, unspecified formulation Alicja Beltre DO Work Phone: [facility] Payers Date Payer Category Payer Private Health Insurance JOSE ZAPATA [id number] 2024 Unknown [id number] 2023 Medicaid (Managed Care) [employer] [id number] 2018 Medicaid [place] [id number] 2018-Present [phone] [address] [place] [address] [id number] 2003 Unknown [id number] 2.16.840.1.279089.3.579.2. 593 2003 Unknown [id number] 2.16.840.1.853965.3.579.2. 593 2003 Unknown [id number] 2.16.840.1.400747.3.579.2. 593 2003 Unknown [id number] 2.16.840.1.724719.3.579.2. 593 2003 Unknown [id number] 2.16.840.1.536662.3.579.2. 593 2003 Unknown [id number] 2.16.840.1.284245.3.579.2. 593 2003 Unknown [id number] 2.16.840.1.561122.3.579.2. 593 2003 Unknown [id number] 2.16.840.1.046181.3.579.2. 593 2003 Unknown [id number] 2.16.840.1.737584.3.579.2. 593 2003 Unknown [id number] 2.16.840.1.714637.3.579.2. 593 2003 Unknown [id number] 2.16.840.1.620658.3.579.2. 593 2003 Unknown [id number] 2.16.840.1.369499.3.579.2. 593 2003 Unknown [id number] 2.16.840.1.194722.3.579.2. 593 2003 Unknown [id number] 2.16.840.1.375841.3.579.2. 593 2003 Unknown [id number] 2.16.840.1.026590.3.579.2. 593 2003 Unknown [id number] 2.16.840.1.606684.3.579.2. 593 2003 Unknown [id number] 2.16.840.1.605042.3.579.2. 593 2003 Unknown [id number] 2.16.840.1.694059.3.579.2. 593 2003 Unknown [id number] 2.16.840.1.815466.3.579.2. 593 2003 Unknown [id number] 2.16.840.1.859963.3.579.2. 593 2003 Unknown [id number] 2.16.840.1.197828.3.579.2. 593 2003 Unknown [id number] 2.16.840.1.596103.3.579.2. 593 2003 Unknown [id number] 2.16.840.1.186044.3.579.2. 593 2003 Unknown [id number] 2.16.840.1.940281.3.579.2. 593 2003 Unknown [id number] 2.16.840.1.031050.3.579.2. 593 2003 Unknown [id number] 2.16.840.1.195765.3.579.2. 593 2003 Unknown [id number] 2.16.840.1.920487.3.579.2. 593 2003 Unknown [id number] 2.16.840.1.770524.3.579.2. 727 2003 Unknown [id number] 2.16.840.1.518702.3.579.2. 727 2003 Unknown [id number] 2.16.840.1.857809.3.579.2. 128 2003 Unknown [id number] 2.16.840.1.709896.3.579.2. 128 2003 Unknown [id number] 2.16.840.1.508202.3.579.2. 128 2003 Unknown [id number] 2.16.840.1.364888.3.579.2. 1285 2003 Unknown [id number] 2.16.840.1.655190.3.579.2. 128 2003 Unknown [id number] 2.16.840.1.356463.3.579.2. 128 2003 Unknown [id number] 2.16.840.1.407450.3.579.2. 1285 2003 Unknown [id number] 2.16.840.1.559632.3.579.2. 128 2003 Unknown [id number] 2.16.840.1.618409.3.579.2. 128 2003 Unknown [id number] 2.16.840.1.079770.3.579.2. 1285 2003 Unknown [id number] 2.16.840.1.359507.3.579.2. 1285 2003 Unknown [id number] 2.16.840.1.101899.3.579.2. 128 2003 Unknown [id number] 2.16.840.1.335357.3.579.2. 128 2003 Unknown [id number] 2.16.840.1.044654.3.579.2. 1259 2003 Unknown [id number] 2.16.840.1.097248.3.579.2. 1259 2003 Unknown [id number] 2.16.840.1.626939.3.579.2. 1259 2003 Unknown [id number] 2.16.840.1.312640.3.579.2. 1259 1976 Unknown [id number] 2.16.840.1.652731.3.579.2. 727 1959 Unknown [id number] Unknown [id number] 2.16.840.1.860724.3.579.2. 175 Social History Date Type Detail Facility Tobacco smoking status [facility] [place] Start: 04-03-2021 End: 10-18-2023 Sex Assigned At Female [facility] Start: 04-03-2021 End: 10-18-2023 Tobacco smoking status VTIS Occasional tobacco smoker [facility] Start: 04-03-2021 End: 10-18-2023 Tobacco use and exposure Smokeless tobacco non-user [facility] Start: 04-03-2021 End: 10-18-2023 Alcohol intake Lifetime non-drinker (finding) [facility] Start: 04-03-2021 End: 10-18-2023 History of Social function [facility] Housing Instability [facility] Start: 2003 Sex Assigned At Not on file P [facility] Start: 09-28-2023 Tobacco Comment Will smoke a c igarette if does not have a vape [facility] History of tobacco use Cigarette Smoker P [facility] Tobacco smoking stat us [facility] Tobacco smoking consumption unknown [facility] Clinical Notes 11-28-2020 to 11-08-2024 Monique Arora LPN - 11/08/2024 11:30 AM MICHELLE Ortez - 09/25/2024 3:00 PM ESTTelephone Encounter - Tessa Roberts, JUNE - 11/03/2023 11:37 AM CYRILTViki Ocasio APRN-SHERMAN - 10/18/2023 10:00 AM EDT Note Date & Type Note Facility 11-08-2024 History of Present illness Narrative Reason for Appointment: Patient ID: Kemi Piper is a 19 y.o. female who presents for Follow-up Patient presents today for Follow up appointment to discuss results. MEDICATIONS Current Outpatient Medications Medication Instructions albuterol [...] trimester 12/27/2022 ADHD (attention deficit hyperactivity disorder) ([facility]) 01/11/2012 Deterioration in school performance 01/21/2015 Migraines (CMS/HCC) 11/28/2020 Nocturnal enuresis 12/12/2012 Psychogenic nonepileptic seizure 11/29/2020 Resolved Ambulatory Problems Diagnosis Date Noted [...] SYSTEMS Review of Systems: Review of Systems All other systems reviewed and are negative. OBJECTIVE Objective: Physical Exam Constitutional: Appearance: Normal appearance. She is well-developed. Cardiovascular: Rate and Rhythm: Normal rate and regular rhythm. Pulmonary: Effort: Pulmonary effort is normal. Breath sounds: Normal breath sounds. Abdominal: General: Bowel sounds are normal. There is no distension. Palpations: Abdomen is soft. Tenderness: There is no abdominal tenderness. There is no guarding or rebound. Musculoskeletal: General: No swelling. Normal range of motion. Right lower leg: No edema. Left lower leg: No edema. Neurological: Mental Status: She is alert and oriented to person, place, and time. Skin: General: Skin is warm and dry. Psychiatric: Mood and Affect: Mood normal. Behavior: Behavior normal. Vitals and nursing note reviewed. Exam conducted with a engineer conductor present. Vitals: Estimated body mass index is 21.69 kg/m as calculated from the following: Height as of 12/21/22: 5' 6 . Weight as of this encounter: 134 lb 6.4 oz. BP: 120/70 No LMP recorded. ASSESSMENT & PLAN Patient presents to office to discuss results. Patient desires to stop having HCG level drawn due to being confirmed already. Patient has appt with PCP and possible referral out for seizures. 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 Discussed and answered patient questions in regards to a home . Patient advised of possible outcomes and possibly meeting with [facility] Director prior to delivery to see thoughts on patient going home the day after delivery. At this time patient has decided to delivery at the hospital in a controlled setting. At this time patient does not wish to have meeting with [facility] and can readdress later in the . Patient to return to clinic in 3-4 weeks for viability US and OB Intake. 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 Documented by Monique Arora LPN on behalf of: Wolfgang Hoffman DO documented in this encounter [facility] 09-25-2024 History of Present illness Narrative Reason [...] trimester 12/27/2022 ADHD (attention deficit hyperactivity disorder) ([facility]) 01/11/2012 Deterioration in school performance 01/21/2015 Migraines ([facility]) 11/28/2020 Nocturnal enuresis 12/12/2012 Psychogenic nonepileptic seizure ([facility]) 11/29/2020 Resolved Ambulatory Problems Diagnosis Date Noted [...] Wolfgang Hoffman DO documented in this encounter [facility] 11-03-2023 Miscellaneous Notes We received a letter from [facility] stating that the procedure on 09/27/23 was not covered. The Cholecystectomy was ordered by Dr Morgan on 09/27/23, the actual surgery wasn't performed until 10/03/23. I scanned the letter into her chart & spoke to Trinity, at the Pre-Cert Main line. She could see the letter & she will get it to the [place] specialist. documented in this encounter [facility] 11-03-2023 Telephone encounter Note We received a letter from [facility] stating that the procedure on 09/27/23 was not covered. The Cholecystectomy was ordered by Dr Morgan on 09/27/23, the actual surgery wasn't performed until 10/03/23. I scanned the letter into her chart & spoke to Trinity, at the Pre-Cert Main line. She could see the letter & she will get it to the [place] specialist. [facility] 10-18-2023 History of Present illness Narrative Subjective [...] Status post laparoscopic cholecystectomy [Z90.49] GERMAN DEAN [facility] General Surgery [facility] This note was created with the assistance of a speech recognition program. While intending to generate a timely document that accurately reflects the content of the visit, no guarantee can be provided that every grammatical or spelling mistake has been or will be identified or corrected. Thank you for your understanding. GERMAN Dean 10/18/23 1014 documented in this encounter [facility] 09-28-2023 Note XR CHEST 2 VWS Procedure: Chest x-ray performed Number of views:2 History:Preop asthma Comparison:None Findings: The heart and lungs show no acute findings, and the mediastinum and manasa are grossly negative . Impression: 1. No acute change. Finalized by Umesh Bolaños MD on 09/28/2023 10:05 AM [facility] 09-28-2023 Note Procedure: Chest x-ray performed Number of views:2 History:Preop asthma Comparison:None Findings: The heart and lungs show no acute findings, and the mediastinum and manasa are grossly negative . Impression: 1. No acute change. Finalized by Umesh Bolaños MD on 09/28/2023 10:05 AM [facility]23 Instructions Noemí Arnett RN - 09/28/2023 9:00 AM EST Preoperative Education Checklist- General Surgery date: 10/03/23 Surgery time: 1100 a.m. Arrival time: 0900 a.m. 1. Bring a photo ID and your insurance card with you the day of surgery. You will check in at the main lobby of the [facility]- registration desk is straight ahead as soon as you walk in. Tell them you are here for surgery. 2. If you have a Living Will/Durable Power of [place] for Health Care that is not on [...] after you have bathed. 5. NO nail indian/acrylic on at least one finger. If you are having a hand, wrist or foot surgery then all nail indian and artificial/acrylic nails must be removed from [...] please call the Preadmission Testing office at [phone], Mon.-Fri. 7 a.m.-3 p.m. Leave a voicemail [...] with your doctor. documented in this encounter [facility] 09-28-2023 Miscellaneous Notes Preoperative Education Checklist- General Surgery date: 10/03/23 Surgery time: 1100 a.m. Arrival time: 0900 a.m. 1. Bring a photo ID and your insurance card with you the day of surgery. You will check in at the main lobby of the [facility]- registration desk is straight ahead as soon as you walk in. Tell them you are here for surgery. 2. If you have a Living Will/Durable Power of [place] for Health Care that is not on [...] after you have bathed. 5. NO nail indian/acrylic on at least one finger. If you are having a hand, wrist or foot surgery then all nail indian and artificial/acrylic nails must be removed from [...] please call the Preadmission Testing office at [phone], Mon.-Fri. 7 a.m.-3 p.m. Leave a voicemail [...] Patient verbalized understanding. [facility] Nurse Note Preoperative Education Checklist- General Surgery date: 10/03/23 Surgery time: 1100 a.m. Arrival time: 0900 a.m. 1. Bring a photo ID and your insurance card with you the day of surgery. You will check in at the main lobby of the [facility]- registration desk is straight ahead as soon as you walk in. Tell them you are here for surgery. 2. If you have a Living Will/Durable Power of [place] for Health Care that is not on [...] after you have bathed. 5. NO nail indian/acrylic on at least one finger. If you are having a hand, wrist or foot surgery then all nail indian and artificial/acrylic nails must be removed from [...] please call the Preadmission Testing office at [phone], Mon.-Fri. 7 a.m.-3 p.m. Leave a voicemail [...] to the follow-up appointment with your doctor. [facility] [employer] [facility] 09-28-2023 Nurse Note Hibiclens and surgical instructions reviewed. Patient verbalized understanding. [facility] [employer] [facility] 09-27-2023 History of Present illness Narrative [...] patient/family/caregiver Referring and communicating with other health transitional care nurse Alo Morgan MD [facility] General Surgery [place] documented in this encounter [facility] 09-13-2023 Miscellaneous Notes Patient no called no showed for appointment with Dr. Morgan. I called Kemi to see if we could reschedule this appointment. Left message on voicemail to call the office back as I was unable to make contact. documented in this encounter [facility] 09-13-2023 Telephone encounter Note Patient no called no showed for appointment with Dr. Morgan. I called Kemi to see if we could reschedule this appointment. Left message on voicemail to call the office back as I was unable to make contact. [facility] 08-23-2023 Miscellaneous Notes Left message for patient to call back to reschedule appointment. documented in this encounter [facility] 08-23-2023 Telephone encounter Note Left message for patient to call back to reschedule appointment. [facility] 08-16-2023 Miscellaneous Notes Called patient in regard to gallstone referral from Dr. Burns's office. Left message on voicemail to call the office back to schedule appointment. Sandeep called the office back and scheduled an appointment with Dr. Morgan for 08-23-23. documented in this encounter [facility] 08-16-2023 Telephone encounter Note Called patient in regard to gallstone referral from Dr. Burns's office. Left message on voicemail to call the office back to schedule appointment. [facility] 08-16-2023 Telephone encounter Note Sandeep called the office back and scheduled an appointment with Dr. Morgan for 08-23-23. [facility] 11-29-2020 Note Discharge/Transfer S porsha Name: Kemi Piper MR#: [id number] : [id number] Room #: 6221/01 Age/Sex: 15 y.o. female Admit Date: 11/28/2020 Admitting: Reggie Conner MD Discharge Date: 11/29/2020 Discharged from: [facility] Attending: Dr. Reggie Conner MD [...] loss. She was seen at [facility] Emergency department and observed with normal labs [...] opinion and she was admitted directly to [facility] Neurology. On the floor, patient complained of [...] Future Labs/Procedures Ex (more content not included)... 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 It last approximately 9m. Patient fell asleep afterwards and woke up around 191. This episode differed from past ones in that it was related to vision loss. Family initially presented to [facility] where she was observed til vision improved. [...] nature, followed by a staring spell at 2356 where she was unresponsive to conversation for at least 5m. This prompted family to seek evaluation at [facility] once more. They do note she did [...] mom identifies as Dr. Jesús Choe in [place]. They have an upcoming appointment on 12/02. Of note, she was recently seen at [facility] on 11/15, where lab work included CBC [...] injuries: did recently hit her head 4d COSTUMER ASSISTANT (sister was getting this day and she [...] changes: Has bee (more content not included)... [facility] Evaluation + Plan note No data available for this section [facility] Evaluation note Diagnosis Biliary colic- Primary Calculus of gallbladder without mention of cholecystitis or obstruction documented in this encounter [facility] System[facility] note* Diagnosis Preop examination- Primary Unspecified [...] Primary Polycystic ovaries documented in this encounter [facility] Healthcare[facility]* Diagnosis PCOS (polycystic ovarian syndrome)- Primary Polycystic ovaries documented in this encounter [facility] Discharge instructions No data available for this section [facility] [place] InstructionsNot on filedocumented in this encounter [facility] System[facility]ructionsNot on filedocumented in this encounter [facility] System[facility]ructionsNot on filedocumented in this encounter [facility] System[facility]ructionsNot on filedocumented in this encounter [facility] No data available for this section [facility] [place] Summary Purpose Family History No Family History [...] ECG 12 lead Yo Berman MD [address] [place] [address] Referral ID Status Reason Start Date Expiration Date V isits Requested Visits Authorized [id number] Pending Review 09/28/2023 09/27/2024 1 1 Specialty Diagnoses / Procedures Referred By Contmariann t Referred To Contact Diagnoses Biliary colic Procedures Unlisted Procedure / Surgery Alo Morgan MD [address] [facility] [address] Referral ID Status Reason Start Date Expiration Date V isits Requested Visits Authorized [id number] Pending Review 09/27/2023 09/26/2024 1 1 Additional Source Comments INFORMATION SOURCE (unrecogn ized section and content) DATE CREATED AUTHOR 11/30/2020 [facility] DATE CREATED AUTHOR AUTHOR'S ORGANIZ ATION 08/25/2021 [facility] DATE CREATED AUTHOR AUTHOR'S ORGANIZ ATION 01/14/2023 [facility] DATE CREATED AUTHOR AUTHOR'S ORGANIZ ATION 07/27/2023 [facility] DATE CREATED AUTHOR AUTHOR'S ORGANIZ ATION 09/12/2023 [facility] DATE CREATED AUTHOR AUTHOR'S ORGANIZ ATION 10/08/2023 [facility] DATE CREATED AUTHOR AUTHOR'S ORGANIZ ATION 10/19/2023 [facility] DATE CREATED AUTHOR AUTHOR'S ORGANIZ ATION 11/11/[address] [facility] dical Specialists EPIC Patient Care team informatio n (unrecognized section and content) Spectrographic Analyst Relationship Specialty Start Date End Date Rashard Burns MD [address] [place] [address] PCP - General Family Medicine 03/25/21 Spectrographic Analyst Relationship Specialty Start Date End Date Rashard Burns MD [address] [place] [address] PCP - General Family Medicine 03/25/21 Spectrographic Analyst Relationship Specialty Start Date End Date Rashard Burns MD [address] [place] [address] PCP - General Family Medicine 03/25/21 Spectrographic Analyst Relationship Specialty Start Date End Date Rashard Burns MD [address] [place] [address] PCP - General Family Medicine 03/25/21 Spectrographic Analyst Relationship Specialty Start Date End Date Rashard Burns MD [address] [place] [facility] [address] PCP - General Family Medicine 03/25/21 Spectrographic Analyst Relationship Specialty Start Date End Date Rashard Burns MD [address] [place] [facility] [address] PCP - General Family Medicine 03/25/21 Spectrographic Analyst Relationship Specialty Start Date End Date Rashard Burns MD [address] [place] [facility] [address] PCP - General Family Medicine 02/16/23 Spectrographic Analyst Relationship Specialty Start Date End Date Rashard Burns MD [address] [place] [facility] [address] PCP - General Family Medicine 02/16/23 Spectrographic Analyst Relationship Specialty Start Date End Date Rashard Burns MD [address] [place] [facility] [address] PCP - General Family Medicine 02/16/23 Spectrographic Analyst Relationship Specialty Start Date End Date Rashard Burns MD [address] [place] [facility] [address] PCP - General Family Medicine 02/16/23 Spectrographic Analyst Relationship Specialty Start Date End Date Rashard Burns MD [address] [place] [facility] [address] PCP - General Family Medicine 02/16/23 Reason for Visit (unrecogniz ed section and content) Reason Comments Cholelithiasis CHOLELITHIAIS, REFER RED BY DR. BURNS Reason Comments Post-op Post op davinci chol ecystectomy performed 10/03/23 at [facility] Reason Comments discuss cycles Reason Comments Follow-up FOR RECORDS PERTAINING TO PATIENTS WHO ARE [...] BE BASED ON THE PRIMARY CLINICAL RECORDS. [facility]. provides no warranty or guarantee of the accuracy or completeness of information in this document.
[2024-11-24 15:47] LABS: Basophils Percent Auto 0.5 % (0.2-2.0); Eosinophils Absolute Auto 0.2 10^3/uL (0.0-0.7); Eosinophils Percent Auto 2.5 % (0.9-7.0); Hematocrit 35.8 % (36.0-48.0); Hemoglobin 12.7 g/dL (12.0-16.0); Immature Granulocytes Abs Auto 0.02 10^3/uL (0.00-0.03); Immature Granulocytes Pct Auto 0.2 % (0.0-0.5); Lymphocytes Absolute Auto 2.3 10^3/uL (1.2-3.8); Lymphocytes Percent Auto 28.7 % (20.5-60.0); Mean Corpuscular HGB Conc 35.5 g/dL (29.9-35.2); Mean Corpuscular Hemoglobin 30.4 pg (26.7-34.0); Mean Corpuscular Volume 85.6 fL (81.0-99.0); Mean Platelet Volume 11.6 fL (9.5-13.5); Monocytes Absolute Auto 0.8 10^3/uL (0.3-0.8); Monocytes Percent Auto 10.4 % (1.7-12.0); Neutrophils Absolute Auto 4.7 10^3/uL (1.4-6.5); Neutrophils Percent Auto 57.7 % (43.0-75.0); Platelet Count 159 10^3/uL (150-450); Red Blood Count 4.18 10^6/uL (4.20-5.40); Red Cell Distribution Width 11.7 % (11.0-15.0); White Blood Count 8.1 10^3/uL (4.0-11.0)
--- NOTE | 2024-11-24 16:01 | ED_ITS ---
HPI - Abdominal Pain General Chief Complaint: Abdominal Pain Stated Complaint: CRAMPING, UNK HOW FAR Time Seen by Provider: 11/24/24 15:28 Source: patient Mode of arrival: walk-in History of Present Illness HPI narrative: The patient is a 19-year-old female who is almost around 5 to 6 weeks she has been following up with her OB doctor told that 02 November of last month which is almost 19 days ago when she was then 4 weeks , patient had suprapubic pain since this morning associated with no bleeding. No nausea no vomiting normal bowel movement and urination And normal appetite Related Data Home Medications ?Medication ?Instructions ?Recorded ?Confirmed No Known Home Medications 11/24/24 11/24/24 Allergies Allergy/AdvReac Type Severity Reaction Status Date / Time amanda Allergy Verified 01/06/23 19:36 Review of Systems ROS Status of ROS 10 or more systems reviewed and unremark able except as noted in history and below [facility] Medical History (Updated 11/24/24 @ 18:21 by Alyce Jarrell MD) Normal course ?Z39.2 - Encounter for routine follow-up (ICD-10) Social History Smoking status: Current every day smoker Little interest or pleasure in doing things: not at all Feeling down, depressed, or hopeless: not at all Exam Narrative Exam Narrative: Nurses notes and vital signs reviewed and patient is not hypoxic. General: Well-appearing and in no apparent distress. Skin: Warm, dry, no pallor noted. No rash. Head: Normocephalic, atraumatic. Neck: Supple, non-tender. Cardiovascular: Regular Rate and Rhythm without murmur, gallop or rub. Respiratory: No accessory muscle use or respiratory distress. Lungs are clear to auscultation, no wheezing, rales or rhonchi Chest Wall: no tenderness Back: No midline thoracic or lumbar vertebral tenderness. No CVA tenderness Musculoskeletal: normal ROM, no calf or popliteal tenderness, no lower extremity edema/swelling GI: Abdomen is soft, non-distended. Normal bowel sounds. Suprapubic discomfort ,negative Alvarez and McBurney Neurological: A&O x4. No cranial nerve dysfunction observed. Constitutional Vital Signs, click to edit/add: Last Vital Signs Temp 97.9 F 11/24/24 15:22 Pulse 74 11/24/24 17:29 Resp 16 11/24/24 17:29 BP 122/69 11/24/24 17:29 Pulse Ox 100 11/24/24 17:29 O2 Del Method Room Air 11/24/24 15:22 Course Vital Signs Vital signs: Vital Signs Temperature 97.9 F 11/24/24 15:22 Pulse Rate 79 11/24/24 15:22 Respiratory Rate 18 11/24/24 15:22 Blood Pressure 127/86 11/24/24 15:22 Pulse Oximetry 98 11/24/24 15:22 Oxygen Delivery Method Room Air 11/24/24 15:22 Temperature 97.9 F 11/24/24 15:22 Pulse Rate 74 11/24/24 17:29 Respiratory Rate 16 11/24/24 17:29 Blood Pressure 122/69 11/24/24 17:29 Pulse Oximetry 100 11/24/24 17:29 Oxygen Delivery Method Room Air 11/24/24 15:22 MDM - Abdominal Pain MDM Narrative Medical decision making narrative: The patient is blood type O+ And the patient CBC and chemistry showed no acute pathology and urinalysis with normal Patient provided with Tylenol as she mentioned the cramping is mostly similar to her menstruation cramping There was no bleeding at any time the patient hCG level was above 31,000 The patient ultrasound showed that she is 7 weeks with 3 days of gestation there was no other pathology detected as well the patient will just follow-up with Dr. Hoffman within the next few days The patient is to follow up with primary care physician in next 2-3 days or to return to the emergency department should any of the signs or symptoms worsen or new symptoms develop. The patient agrees with the following Diagnosis and Treatment plan and the patient will be discharged home. Lab Data Labs: Lab Results 11/24/24 11/24/24 Range/Units 15:43 16:20 WBC 8.1 (4.0-11.0) 10^3/uL RBC 4.18 L (4.20-5.40) 10^6/uL Hgb 12.7 (12.0-16.0) g/dL Hct 35.8 L (36.0-48.0) % MCV 85.6 (81.0-99.0) fL MCH 30.4 (26.7-34.0) pg MCHC 35.5 H (29.9-35.2) g/dL RDW 11.7 (11.0-15.0) % Plt Count 159 (150-450) 10^3/uL MPV 11.6 (9.5-13.5) fL Neut % (Auto) 57.7 (43.0-75.0) % Lymph % (Auto) 28.7 (20.5-60.0) % [place] % (Auto) 10.4 (1.7-12.0) % Eos % (Auto) 2.5 (0.9-7.0) % Baso % (Auto) 0.5 (0.2-2.0) % Neut # (Auto) 4.7 (1.4-6.5) 10^3/uL Lymph # (Auto) 2.3 (1.2-3.8) 10^3/uL [place] # (Auto) 0.8 (0.3-0.8) 10^3/uL Eos # (Auto) 0.2 (0.0-0.7) 10^3/uL Baso # (Auto) 0.0 (0.0-0.1) 10^3/uL Abs Immat Gran (auto) 0.02 (0.00-0.03) 10^3/uL Imm/Tot Granulo (auto) 0.2 (0.0-0.5) % Sodium 137 (136-145) mmol/L Potassium 3.9 (3.5-5.1) mmol/L Chloride 103 (98-107) mmol/L Carbon Dioxide 28.4 (21.0-32.0) mmol/L Anion Gap 9.5 BUN 8.0 (7.0-18.0) mg/dL Creatinine 0.66 (0.55-1.02) mg/dL Est GFR ( Amer) >60 (>=60 mL/min/1.73m^2) Est GFR (Non-Af Amer) >60 (>=60 mL/min/1.73m^2) BUN/Creatinine Ratio 12.1 Glucose 98 (74-106) mg/dL Calcium 8.4 L (8.5-10.1) mg/dL Total Bilirubin 0.2 (0.2-1.0) mg/dL AST 12 L (15-37) U/L ALT 17 (14-59) U/L Alkaline Phosphatase 73 (46-116) U/L Total Protein 6.1 L (6.4-8.2) g/dL Albumin 3.5 (3.4-5.0) g/dL Globulin 2.6 g/dL Albumin/Globulin Ratio 1.3 HCG, Quant 82146 mIU/mL Urine Color Lt. yellow (YELLOW) Urine Clarity Clear (CLEAR) Urine pH 6.0 (5.0-9.0) Ur Specific [place] <=1.005 A (1.005-1.025) Urine Protein Negative (NEG/TRACE) mg/dL Urine Glucose (UA) Negative (NEGATIVE) mg/dL Urine Ketones Negative (NEGATIVE) mg/dL Urine Occult Blood Negative (NEGATIVE) Urine Nitrite Negative (NEGATIVE) Urine Bilirubin Negative (NEGATIVE) Urine Urobilinogen 0.2 (0.2-1.0) EU/dL Ur Leukocyte Esterase Negative (NEGATIVE) Blood Type O Positive Antibody Screen Negative Discharge Plan Discharge Chief Complaint: Abdominal Pain Clinical Impression: Patient Disposition: Home, Self-Care Time of Disposition Decision: 18:20 Condition: Good Mode of Transportation: Private Vehicle Prescriptions / Home Meds: No Action No Known Home Medications Print Language: Uzbek Instructions: (ED) Referrals: Wolfgang Hoffman DO [Physician] - As soon as possible Jose E Burns MD [Primary Care Provider] - 1 week Discharge Date/Time: 11/24/24 18:30
[2024-11-24 16:03] LABS: Alanine Aminotransferase 17 U/L (14-59); Albumin Globulin Ratio 1.3; Albumin Level 3.5 g/dL (3.4-5.0); Alkaline Phosphatase 73 U/L (46-116); Anion Gap 9.5; Aspartate Amino Transferase 12 U/L (15-37); BUN Creatinine Ratio 12.1; Bilirubin Total 0.2 mg/dL (0.2-1.0); Calcium 8.4 mg/dL (8.5-10.1); Carbon Dioxide 28.4 mmol/L (21.0-32.0); Chloride 103 mmol/L (98-107); Estimated GFR (African America >60 (>=60 mL/min/1.73m^2); Estimated GFR (Non-African Ame >60 (>=60 mL/min/1.73m^2); Globulin 2.6 g/dL; Glucose 98 mg/dL (74-106); Potassium 3.9 mmol/L (3.5-5.1); Sodium 137 mmol/L (136-145); Total Protein 6.1 g/dL (6.4-8.2)
[2024-11-24 16:27] LABS: HCG Quantitative 31809 mIU/mL
[2024-11-24 17:03] LABS: Bilirubin Urine NEGATIVE (NEGATIVE); Blood Urine NEGATIVE (NEGATIVE); Clarity Urine CLEAR (CLEAR); Color Urine LT. YELLOW (YELLOW); Glucose Urine UA NEGATIVE (NEGATIVE); Ketones Urine NEGATIVE (NEGATIVE); Leukocyte Esterase Urine NEGATIVE (NEGATIVE); Nitrite Urine NEGATIVE (NEGATIVE); Protein Urine NEGATIVE (NEG/TRACE); Specific Gravity Urine <=1.005 (1.005-1.025); Urobilinogen Urine 0.2 EU/dL (0.2-1.0)
[2024-11-24 17:04] LABS: Urine Microscopic Indicated NO
[2024-11-24] MEDS: ACETAMINOPHEN 325 MG TABLET 650 MG PO (17:22)
[2024-11-24 17:29] VITALS: BP 122/69; PULSE 74; O2SAT 100
== END 2024-11-24 18:30 | disposition home or self-care (01) ==
PROVIDERS: Emergency Provider Emergency Medicine; PCP Family Medicine
DX: O26.891 Other specified pregnancy related conditions, first trimester (principal); R10.2 Pelvic and perineal pain; Z3A.01 Less than 8 weeks gestation of pregnancy
CPT/HCPCS: 36415; 76817; 80053; 81003; 84702; 85025; 86850; 86900; 86901; 99285

== ENCOUNTER 2024-12-07 16:05 | Outpatient (OUT) | payer OTHER, SELFPAY ==
[2024-12-07 16:43] LABS: Basophils Percent Auto 0.4 % (0.2-2.0); Eosinophils Absolute Auto 0.2 10^3/uL (0.0-0.7); Eosinophils Percent Auto 2.1 % (0.9-7.0); Hematocrit 39.9 % (36.0-48.0); Immature Granulocytes Abs Auto 0.03 10^3/uL (0.00-0.03); Immature Granulocytes Pct Auto 0.3 % (0.0-0.5); Lymphocytes Absolute Auto 2.2 10^3/uL (1.2-3.8); Lymphocytes Percent Auto 24.1 % (20.5-60.0); Mean Corpuscular HGB Conc 35.1 g/dL (29.9-35.2); Mean Corpuscular Hemoglobin 30.3 pg (26.7-34.0); Mean Corpuscular Volume 86.4 fL (81.0-99.0); Monocytes Absolute Auto 0.7 10^3/uL (0.3-0.8); Monocytes Percent Auto 8.2 % (1.7-12.0); Neutrophils Absolute Auto 5.9 10^3/uL (1.4-6.5); Neutrophils Percent Auto 64.9 % (43.0-75.0); Platelet Count 181 10^3/uL (150-450); Red Blood Count 4.62 10^6/uL (4.20-5.40); Red Cell Distribution Width 11.9 % (11.0-15.0); White Blood Count 9.1 10^3/uL (4.0-11.0)
[2024-12-07 16:48] LABS: BOX Test Reference Lab UNITY; BOX Test Sent Out UNITY
[2024-12-07 17:20] LABS: Estimated Average Glucose 85 mg/dL; Glycohemoglobin A1C 4.6 % (4.5-6.2)
[2024-12-07 17:29] LABS: Amphetamine Screen Urine NEGATIVE (NEGATIVE); Barbiturates Screen Urine NEGATIVE (NEGATIVE); Benzodiazepines Screen Urine NEGATIVE (NEGATIVE); Buprenorphine Screen Urine NEGATIVE (NEGATIVE); Cannabinoid Screen Urine POSITIVE (NEGATIVE); Cocaine Screen Urine NEGATIVE (NEGATIVE); Methadone Screen Urine NEGATIVE (NEGATIVE); Methamphetamines Screen Urine NEGATIVE (NEGATIVE); Opiate Screen Urine NEGATIVE (NEGATIVE); Oxycodone Screen Urine NEGATIVE (NEGATIVE); Phencyclidine Screen Urine NEGATIVE (NEGATIVE); Tricyclic Antidepressant Urine NEGATIVE (NEGATIVE)
[2024-12-09 08:14] LABS: HBsAg Screen Negative (Negative); HCV Ab Non Reactive (Non Reactive); HIV Ab/p24 Ag Screen Non Reactive (Non Reactive); Rubella Antibodies, IgG 2.41 index (Immune >0.99)
[2024-12-09 10:08] LABS: Rapid Plasma Reagin, Quant Non Reactive titer (NonRea<1:1)
[2024-12-17 07:07] LABS: Cannabinoid Positive (.); Carboxy THC Conf, MS, UR 190 ng/mL (Cutoff=10)
== END 2024-12-07 16:06 | disposition home or self-care (01) ==
LOC: LAB 16:06
PROVIDERS: PCP Family Medicine; Visit Provider Obstetrics & Gynecology
DX: Z34.01 Encounter for supervision of normal first pregnancy, first trimester (principal); N92.6 Irregular menstruation, unspecified; Z36.0 Encounter for antenatal screening for chromosomal anomalies
CPT/HCPCS: 36415; 80307; 80349; 83036; 85025; 86592; 86762; 86803; 86850; 86900; 86901; 87086; 87340; 87389

== ENCOUNTER 2025-01-29 19:12 | Outpatient (REF) | payer OTHER, SELFPAY ==
--- OUTSIDE RECORDS SUMMARY | 2024-08-20 09:38 | XMS_ITS ---
Author Organization The [facility] in [place] Address [address] [place] [address] Care Team Providers Care Christian Education Director Name Role Phone Ozzie Burns Primary Care Provider REASON FOR VISIT Work Note Encounters Encounter Location Date Provider Diagnosis [facility] [address] [facility] [place] [address] 08/20/2024 Ozzie Burns Plan Of Treatment No Information Progress Notes * Kemi PIPER MDOB: 3 (19 yo F)Acc No.[id number]:08/20/2024 Patient: Carol GLASGOW Kemi Zambrano :2005 A ge:19 Y S ex:Female Address[place], [address] * true * Date: Generated for Gisell henning/Cat/eTransmitting on: 0 01/29/2025 07:15 PM EDT
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
--- OUTSIDE RECORDS SUMMARY | 2024-11-08 09:20 | XMS_ITS ---
Author Organization [facility] [place] Address [address] [place] [address] Care Team Providers Care 3D Specialist Name Role Phone BlakeOzzie posadas Primary Care Provider Reason For Referral Diagnosis 1 Nonepileptic episode (R56.9) Referral Organization [facility] Referring Provider First Name Ozzie Referring Provider Last Name Katy [facility] Referred Provider Suze Smith Referred Provider Specialty Psychiatry Referral Priority Routine REASON FOR VISIT psychiatrist Encounters Encounter Location Date Provider Diagnosis [facility] [address] [place] [address] 11/08/2024 Ozzie Blakecuauhtemoc Nonepileptic episode R56.9 Assessments Encounter Date Diagnosis (ICD Code) Assessment Notes Treatment Notes Treatment Clinical Notes Section Notes 11/08/2024 Nonepileptic episode (ICD-10 - R56.9) Plan Of Treatment Referrals Referral Date Details 11/08/2024 11/08/2024, Suze phillip Progress Notes * Kemi EVANS MDOB: 3 (19 yo F)Acc No.[id number]:11/08/2024 Patient: Kemi SANTA :2005 A ge:19 Y S ex:Female Address:[place], [address] Subjective: * Chief Complaints: * P sychiatrist * Medical History: * Surgical History: * Hospitalization/Major Diagno stic Procedure: * Medications: Objective: * Vitals: * Physical Examination: Assessment: * Assessment: 1. N onepileptic episode - R56.9 (Primary) Plan: * Treatment: * Procedure Codes: * true * Date: Generated for Gisell henning/Cat/Lexie on: 0 01/29/2025 01:07 PM EDT Consultation Request Notes Referral Date Referring Provider Referred Provider Not es 11/08/2024 Ozzie Burns Kelly
--- OUTSIDE RECORDS SUMMARY | 2025-01-29 13:40 | XMS_ITS | Encounter Summary ---
Author Organization [facility] Address [address] [facility] [place] [address] Care Team Providers Care Supervisor Drying And Softening Name Role Phone Jose E Burns MD Primary Care Provider [phone] Reason for Visit * Reason Comments Routine Visit Well Women Visit STI Screening Encounter Details Date Type Department Care Team (Latest Contact Info) Description 01/29/2025 1:40 PM EDT Routine [facility] [address] [place] [address] Gogo Pang PA [address] [place], [facility]11 Well woman exam with routine gynecological exam; Second trimester ([facility]); 16 weeks gestation of ([facility]); Vaginal discharge; STD exposure; Screening, , for anatomic survey ([facility]) Social History Tobacco Use Types Packs/Day Years Used Date Smoking Tobacco: Never Assessed Estimated Date of Delivery Comme nts Yes 07/10/2025 Based on Ultraso und, [id number] Sex and Gender Information Value Date Recorded Sex Assigned at Not on file Legal Sex Female 6:34 PM EDT Gender Identity Not on file Sexual Orientation Not on file documented as of this encounter Last Filed Vital Signs Vital Sign Reading Time Taken Comments Blood Pressure 116/68 01/29/2025 2:36 PM EDT Pulse - - Temperature - - Respiratory Rate - - Oxygen Saturation - - Inhaled Oxygen Concentration - - Weight 62.6 kg (138 lb) 01/29/2025 2:36 PM EDT Height - - Body Mass Index 22.27 12/21/2022 12:00 PM EDT documented in this encounter Progress Notes * MICHELLE Forrest - 01/29/2025 1:40 PM EDT Reason for Appointment: Patient ID: Kemi Piper is a 19 y.o. female who presents for Routine Visit, Well Women Visit, and STI Screening Patient presents today for Annual Exam. and Return OB appointment. MEDICATIONS Current Outpatient Medications Medication Instructions ondansetron ODT (ZOFRAN-ODT) 4 mg, Oral, Every 6 hours PRN 28-0.8 MG tablet 1 tablet, Daily ALLERGIES No Known Allergies PROBLEMS Active Ambulatory Problems Diagnosis Date Noted Third trimester ([facility]) 12/27/2022 ADHD (attention deficit hyperactivity disorder) 01/11/2012 Deterioration in school performance 01/21/2015 Migraines 11/28/2020 Nocturnal enuresis 12/12/2012 Psychogenic nonepileptic seizure 11/29/2020 Resolved Ambulatory Problems Diagnosis Date Noted No Resolved Ambulatory Problems No Additional Past Medical History HISTORY PAST MEDICAL HISTORY SOCIAL HISTORY History reviewed. No pertinent past medical history. Social History Tobacco Use Smoking status: Not on file Smokeless tobacco: Not on file Vaping Use Vaping status: Every Day Substances: Nicotine Substance Use Topics Alcohol use: Not on file Drug use: Not on file FAMILY HISTORY No family history on file. SURGICAL HISTORY Past Surgical History: Procedure Laterality Date APPENDECTOMY GALLBLADDER REVIEW OF SYSTEMS Review of Systems: Review of Systems Constitutional: Negative. HENT: Negative. Eyes: Negative. Respiratory: Negative. Cardiovascular: Negative. Gastrointestinal: Negative. Genitourinary: Negative. Musculoskeletal: Negative. Skin: Negative. Neurological: Negative. All other systems reviewed and are negative. Hematological: Negative. Endocrine: Negative. Allergic/Immunologic: Negative. OBJECTIVE Objective: Physical Exam Constitutional: Appearance: Normal appearance. Genitourinary: Right Adnexa: not tender and no mass present. Left Adnexa: not tender and no mass present. No cervical discharge. Breasts: Breasts are soft. Right: Normal. Left: Normal. HENT: Head: Normocephalic. Nose: Nose normal. Mouth/Throat: Mouth: Mucous membranes are moist. Cardiovascular: Rate and Rhythm: Normal rate. Pulmonary: Effort: Pulmonary effort is normal. Abdominal: General: Bowel sounds are normal. Palpations: Abdomen is soft. Musculoskeletal: General: Normal range of motion. Cervical back: Normal range of motion. Neurological: General: No focal deficit present. Mental Status: She is alert. Skin: General: Skin is warm and dry. Psychiatric: Mood and Affect: Mood normal. Vitals and nursing note reviewed. Exam conducted with a flasher adjuster present. Vitals: Estimated body mass index is 21.95 kg/m?? as calculated from the following: Height as of 12/21/22: 5' 6 . Weight as of 01/01/25: 136 lb. BP: No LMP recorded. Patient is . ASSESSMENT & PLAN ICD-10-CM 1. Well woman exam with routine gynecological exam Z01.419 Pap Smear 2. Second trimester ([facility]) Z34.92 Alpha fetoprotein, maternal Alpha fetoprotein, maternal US OB 14+ weeks anatomy scan 3. 16 weeks gestation of ([facility]) Z3A.16 Alpha fetoprotein, maternal Alpha fetoprotein, maternal US OB 14+ weeks anatomy scan 4. Vaginal discharge N89.8 SURESWAB(R) ADVANCED VAGINITIS PLUS, TMA 5. STD exposure Z20.2 CHLAMYDIA TRACHOMATIS (GENITO/STI) Neisseria gonorrhea DNA probe, direct 6. Screening, , for anatomic survey ([facility]) Z36.89 US OB 14+ weeks anatomy scan Return OB/Annual Exam: Patient presents today for a annual exam/routine obstetrics appointment. Patient is currently [id number]. Patient states she is doing well but has complaints of nausea in the morning. Pap and cultures was obtained without difficulty and patient was given orders for anatomy scan and msAFP to be obtained. Orders Placed This Encounter Procedures US OB 14+ weeks anatomy scan Alpha fetoprotein, maternal CHLAMYDIA TRACHOMATIS (GENITO/STI) Neisseria gonorrhea DNA probe, direct Follow Up: Patient is to schedule annual exam for next year and return to office in 4 weeks for OB appointment. Documented by MICHELLE Forrest on behalf of: MICHELLE Forrest documented in this encounter Plan of Treatment Upcoming Encounters Date Type Department Care Team ([facility] st Contact Info) Description 02/25/2025 2:30 PM EDT Ancillary Procedure [facility] OB [address] [place] [address] 02/25/2025 3:40 PM EDT [facility]ine [facility] OB [address] [place] [address] Wolfgang Hoffman, DO [address] [place], [place] [id number] Scheduled Orders Name Type Priority Associated Diagnoses Orde r Schedule Pap Smear Pathology and Cytology Routine Well woman exam with routine gynecological exam Ordered: 01/29/2025 Alpha fetoprotein, maternal Lab Routine Second trimester ([facility]) 16 weeks gestation of ([facility]) Expected: 01/29/2025 (Approximate), Expires: 07/31/2025 SURESWAB(R) ADVANCED VAGINITIS PLUS, TMA Pathology and Cytology Routine Vaginal discharge Ordered: 01/29/2025 CHLAMYDIA TRACHOMATIS (GENITO/STI) Lab Routine STD exposure Ordered: 01/29/2025 Neisseria gonorrhea DNA probe, direct Lab Routine STD exposure Ordered: 01/29/2025 US OB 14+ weeks anatomy scan Imaging Routine Second trimester ([facility]) 16 weeks gestation of ([facility]) Screening, , for anatomic survey ([facility]) Expected: 01/29/2025, Expires: 05/01/2025 documented as of this encounter Visit Diagnoses Diagnosis Well woman exam with routine gynecological exam Routine gynecological examination Second trimester ([facility]) state, incidental 16 weeks gestation of ([facility]) Vaginal discharge Leukorrhea, not specified as infective STD exposure Screening, , for anatomic survey ([facility]) Encounter for anatomic survey documented in this encounter Care Teams Supervisor Drying And Softening Relationship Specialty Start Date End Date Jose E Burns MD [address] [facility] [place] [address] PCP - General Family Medicine 02/16/23 documented as of this encounter
--- OUTSIDE RECORDS SUMMARY | 2025-01-29 19:15 | XMS_ITS | Encounter Summary ---
Author Organization [facility] Address [address] [facility] [place] [address] Care Team Providers Care Diamond Driller Helper Name Role Phone Jose E Burns MD Primary Care Provider [phone] Encounter Details Date Type Department Care Team (Late st Contact Info) Description 12/31/2022 Clinisync Result Encounter [facility] External Department Unsolicited Wolfgang Hoffman, DO [address] [place], [facility] Social History Tobacco Use Types Packs/Day Years Used Date Smoking Tobacco: Never Assessed Comments Yes Sex and Gender Information Value Date Recorded Sex Assigned at Not on file Legal Sex Female 6:34 PM EDT Gender Identity Not on file Sexual Orientation Not on file documented as of this encounter Plan of Treatment Upcoming Encounters Date Type Department Care Team (Late st Contact Info) Description 02/25/2025 2:30 PM EDT Ancillary Procedure [facility] [address] [place] [address] 02/25/2025 3:40 PM EDT Routine [facility] [address] [place] [address] Wolfgang Hoffman, DO [address], [place] [id number] documented as of this encounter Procedures Procedure Name Priority Date/Time Associated Diagnosis Comments US PREG UMBILICAL ARTERY 12/31/2022 10:09 AM EDT documented in this encounter Results * US PREG UMBILICAL ARTERY (12/31/2022 10:09 AM EDT) Anatomical Region Laterality Modality Other 12/31/2022 10:0 9 AM EDT Narrative 12/31/2022 5:18 PM EDT EXAMINATION: US PREG UMBILICAL ARTERY HISTORY: Poor [...] Uteroplacental Artery: Resistive Index (RI): Normal=<0.55 High Resistance=Bilateral notches (after 26 wks) and RI>0.55. Unilateral notches (after 26 wks) and RI>0.65 Systolic/Diastolic ratio (S:D) = 2-3 is normal after 32 weeks. Electronically authenticated by: YO MESA Date: 2022-12-31 17:18 Procedure Note Radiology, Radiologist, - 12/31/2022 EXAMINATION: US PREG UMBILICAL ARTERY HISTORY: Poor [...] 10th percentile, 4.25 for the 50th percentile, 6.07for the 90th percentile Age 20: 3.16 for the 10th percentile, 4.04 for the 50th percentile, 5.24for the 90th percentile Age 24: 2.70 for the 10th percentile, 3.50 for the 50th percentile, 4.75for the 90th percentile Age 28: 2.41 for the 10th percentile, 3.02 for the 50th percentile, 3.97for the 90th percentile Age 30: 2.43 for the 10th percentile, 3.04 for the 50th percentile, 3.80for the 90th percentile Age 32: 2.27 for the 10th percentile, 2.73 for the 50th percentile, 3.57for the 90th percentile Age 34: 2.08 for the 10th percentile, 2.52 for the 50th percentile, 3.41for the 90th percentile Age 36: 1.96 for the 10th percentile, 2.35 for the 50th percentile, 3.15for the 90th percentile Age 38: 1.89 for the 10th percentile, 2.24 for the 50th percentile, 3.10for the 90th percentile Age 40: 1.88 for the 10th percentile, 2.22 for the 50th percentile, 2.68for the 90th percentile Age 41: 1.93 for the 10th percentile, 2.21 for the 50th percentile, 2.55for the 90th percentile Age 42: 1.91 for the 10th percentile, 2.51 for the 50th percentile, 3.21for the 90th percentile Uteroplacental Artery: Resistive Index (RI): Normal=<0.55 High Resistance=Bilateral notches (after 26 wks) and RI>0.55. Unilateralnotches (after 26 wks) and RI>0.65 Systolic/Diastolic ratio (S:D) = 2-3 is normal after 32 weeks. Electronically authenticated by: YO MESA Date: 2022-12-31 17:18 Wolfgang Hoffman DO [facility] Final Result documented in this encounter Visit Diagnoses Not on filedocumented in this encounter Care Teams Diamond Driller Helper Relationship Specialty Start Date End Date Jose E Burns MD [address] [place] [id number] PCP - General Family Medicine 02/16/23 documented as of this encounter
--- OUTSIDE RECORDS SUMMARY | 2025-01-29 19:15 | XMS_ITS | Patient Health Record ---
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 R11.2 Fatigue R53.83 Abdominal pain, RUQ R10.11 Enuresis R32 ADHD F90.9 Nocturia R35.1 Well child visit Z00.129 Surgical History Surgery Date(Month/Year) Gallbladder 10/03/2023 appendicitis 01/2021
--- OUTSIDE RECORDS SUMMARY | 2025-01-29 19:15 | XMS_ITS | Encounter Summary ---
Author Organization [facility] Address [address] [facility] [place] [address] Care Team Providers Care Director Occupational Name Role Phone Jose E Burns MD Primary Care Provider [phone] Encounter Details Date Type Department Care Team (Late st Contact Info) Description 12/31/2022 Clinisync Result Encounter [facility] External Department Unsolicited Wolfgang Hoffman, DO [address], [facility] Social History Tobacco Use Types Packs/Day Years [...] Procedure [facility] [address] [place] [address] 02/25/2025 3:40 PM EDT Routine [facility] [address] [place] [address] Wolfgang Hoffman, DO [address], [place] [id number] documented as of this encounter Procedures Procedure Name Priority Date/Time Associated Diagnosis Comments US PREG BIOPHY W NON STRESS 12/31/2022 10:09 AM EDT documented in this encounter Results * US PREG BIOPHY W NON STRESS (12/31/2022 10:09 AM EDT) Anatomical Region Laterality Modality Other 12/31/2022 10:0 9 AM EDT Narrative 12/31/2022 5:02 PM EDT EXAMINATION: US PREG BIOPHY W NON STRESS [...] authenticated by: YO MESA Date: 2022-12-31 17:02 Procedure Note Radiology, Radiologist, - 12/31/2022 EXAMINATION: US PREG BIOPHY W NON STRESS [...] authenticated by: YO MESA Date: 2022-12-31 17:02 us Wolfgang Yasmin DO [facility] Final Result documented in this encounter Visit Diagnoses Not on filedocumented in this encounter Care Teams Director Occupational Relationship Specialty Start Date End Date Jose E Burns MD [address] [place] [id number] PCP - General Family Medicine 02/16/23 documented as of this encounter
--- OUTSIDE RECORDS SUMMARY | 2025-01-29 19:15 | XMS_ITS | Encounter Summary ---
Author Organization [facility] Address [address] [facility] [place] [address] Care Team Providers Care Clinical Lab Clerk Name Role Phone Jose E Burns MD Primary Care Provider [phone] Encounter Details Date Type Department Care Team (Late st Contact Info) Description 01/18/2025 Telephone [facility] [address] [place] [address] Jennifer Lyman MA [facility] [place] [address] Social History Tobacco Use Types Packs/Day Years Used Date Smoking Tobacco: Never Assessed Estimated Date of Delivery Comme nts Yes 07/10/2025 Based on Ultraso und, [id number] Sex and Gender Information Value Date Recorded Sex Assigned at Not on file Legal Sex Female 6:34 PM EDT Gender Identity Not on file Sexual Orientation Not on file documented as of this encounter Miscellaneous Notes * Telephone Encounter - Jennifer Lyman MA - 01/18/2025 9:14 AM EDT Pt having nausea. Sent in zofran. Pt was advised documented in this encounter Plan of Treatment Upcoming Encounters Date Type Department Care Team (Late st Contact Info) Description 02/25/2025 2:30 PM EDT Ancillary Procedure [facility] [address] [place] [address] 02/25/2025 3:40 PM EDT Routine [facility] [address] [facility] [place] [phone] Wolfgang Hoffman, [address] [place] [place], [place] [id number] documented as of this encounter Visit Diagnoses Diagnosis Nausea and vomiting in ([facility]) Unspecified vomiting of , unspecified as to episode of care documented in this encounter Care Teams Clinical Lab Clerk Relationship Specialty Start Date End Date Jose E Burns MD [address] [facility] [place] [address] PCP - General Family Medicine 02/16/23 documented as of this encounter
--- OUTSIDE RECORDS SUMMARY | 2025-01-29 19:15 | XMS_ITS | Encounter Summary ---
Author Organization [facility] Address [address] [facility] [place] [address] Care Team Providers Care Maintenance Team Leader Name Role Phone Jose E Burns MD Primary Care Provider [phone] Encounter Details Date Type Department Care Team (Late Contact Info) Description 01/11/2023 Abstract [facility] [address] [place] [address] Wolfgang Hoffman DO [facility] [address], [place] [address] Social History Tobacco Use Types Packs/Day Years [...] 02/25/2025 2:30 PM EDT Ancillary Procedure [facility] [place] [phone] 02/25/2025 3:40 PM EDT Routine [facility] OB [facility] [place] [address] Wolfgang Hoffman, DO [facility] [place] [address] documented as of this encounter Visit Diagnoses Not on filedocumented in this encounter Care Teams Maintenance Team Leader Relationship Specialty Start Date End Date Jose E Burns MD [address] [place] [address] PCP - General Family Medicine 02/16/23 documented as of this encounter
--- OUTSIDE RECORDS SUMMARY | 2025-01-29 19:15 | XMS_ITS | Encounter Summary ---
Author Organization [facility] Address [address] [facility] [place] [address] Care Team Providers Care Direct Marketing Intern Name Role Phone Jose E Burns MD Primary Care Provider [phone] Encounter Details Date Type Department Care Team (Late st Contact Info) Description 10/08/2024 Abstract [facility] [address] [place] [address] Wolfgang Hoffman DO [facility] [address], [place] [address] Social History Tobacco Use Types Packs/Day Years Used Date Smoking Tobacco: Never Assessed Comments Unknown Sex and Gender Information Value Date Recorded Sex Assigned at Not on file Legal Sex Female 6:34 PM EDT Gender Identity Not on file Sexual Orientation Not on file documented as of this encounter Plan of Treatment Upcoming Encounters Date Type Department Care Team (Late st Contact Info) Description 02/25/2025 2:30 PM EDT Ancillary Procedure [facility] [place] [address] 02/25/2025 3:40 PM EDT Routine [facility] OB [facility] [place] [address] Wolfgang Hoffman, DO [facility] [place] [address] documented as of this encounter Visit Diagnoses Not on filedocumented in this encounter Care Teams Direct Marketing Intern Relationship Specialty Start Date End Date Jose E Burns MD [address] [place] [address] PCP - General Family Medicine 02/16/23 documented as of this encounter
--- OUTSIDE RECORDS SUMMARY | 2025-01-29 19:15 | XMS_ITS ---
Author Organization [facility] Produ ction (ClinicalSummary Clone) Address Unknown Care Team Providers Care Senior Erp Consultant Name Role Phone Unavailable Primary Care Physician Unavailab le Results * [UNITY] ANEUPLOIDY NIPT Performed by: [employer] Value Range Date Fraction 5.3% 12/17/2024 10 :59 pm UTC Rh(D) NIPT RhD DETECTED 12/17/2024 10:5 9 pm UTC Sex Chromosome Aneuploidy NOT DETECTED 10:59 pm UTC Monosomy X LOW RISK <1 in 10,000 2024 10:59 pm UTC Trisomy 13 LOW RISK <1 in 10,000 2024 10:59 pm UTC Trisomy 18 LOW RISK <1 in 10,000 2024 10:59 pm UTC Trisomy 21 LOW RISK <1 in 10,000 2024 10:59 pm UTC Sex MALE 12/17/2024 10:5 9 pm UTC Gestation FELIZ 12/18/19 10:59 pm UTC For detailed report, see PDF See PDF 12/17/2024 10:59 pm UTC 12/17/2024 10:5 9 pm UTC Social History Observation Value Start Date End Date
--- OUTSIDE RECORDS SUMMARY | 2025-01-29 19:15 | XMS_ITS | Encounter Summary ---
Author Organization [facility] Address [address] [facility] [place] [address] Care Team Providers Care Tunneling Machine Operator Name Role Phone Jose E Burns MD Primary Care Provider [phone] Encounter Details Date Type Department Care Team (Late st Contact Info) Description 12/18/2024 Abstract [facility] [address] [place] [address] Keyla Rodriguez MA Social History Tobacco Use Types Packs/Day Years [...] Procedure [facility] [address] [place] [address] 02/25/2025 3:40 PM EDT Routine [facility] [address] [place] [address] Wolfgang Hoffman DO [address] [place] [address] documented as of this encounter Visit Diagnoses Not on filedocumented in this encounter Care Teams Tunneling Machine Operator Relationship Specialty Start Date End Date Jose E Burns MD [address] [place] [address] PCP - General Family Medicine 02/16/23 documented as of this encounter
--- OUTSIDE RECORDS SUMMARY | 2025-01-29 19:15 | XMS_ITS | Encounter Summary ---
Author Organization [facility] Address [address] [place] [address] Care Team Providers Care Business Process Coordinator Name Role Phone Jose E Burns MD Primary Care Provider [phone] Encounter Details Date Type Department Care Team (Late st Contact Info) Description 01/29/2025 Bamboo flowsheet [facility] OB [address] [place], [place] [address] [address] Gogo Pang PA [address] [place] [address] [place] [address] Social History Tobacco Use Types Packs/Day Years [...] 02/25/2025 2:30 PM EDT Ancillary Procedure [facility] OB [facility] [place] [address] 02/25/2025 3:40 PM EDT Routine [facility]CP [address] [place] [address] Wolfgang Hoffman, [address] [place] [place] [address] documented as of this encounter Visit Diagnoses Not on filedocumented in this encounter Care Teams Business Process Coordinator Relationship Specialty Start Date End Date Jose E Burns MD [address] [facility] [place] [address] PCP - General Family Medicine 02/16/23 documented as of this encounter
--- OUTSIDE RECORDS SUMMARY | 2025-01-29 19:15 | XMS_ITS | Clinical Summary ---
Author Organization [facility] Address [address] [place] [address] Care Team Providers Care Strawberry Grower Name Role Phone Jose E Burns MD Primary Care Provider [phone] Allergies No known active allergies Medications 28-0.8 MG tablet Take 1 tablet by mouth Daily Active ondansetron ODT (Zofran-ODT) 4 MG disintegrating tabletIndications:N ausea and vomiting in ([facility]) Take 1 tablet (4 mg) by mouth every 6 (six) hours if needed for nausea or vomiting 30 tablet 2 5 02/18/20 25 Active Active Problems Problem Noted Date Diagnosed Date Third trimester ([facility]) 12/27/2022 Psychogenic nonepileptic seizure 11/29/2020 Migraines 11/28/2020 Deterioration in school performance 01/21/2015 Nocturnal enuresis 12/12/2012 ADHD (attention deficit hyperactivity disorder) 01/11/2012 Estimated Date of Delivery Comme nts Yes 07/10/2025 Based on Ultraso und, FHR-158 Encounters Date Type Department Care Team Description 01/29/2025 1:40 PM EDT [facility]ine [facility] [address] [facility] [place] [address] Gogo Pang PA Well woman exam with routine gynecological exam; Second trimester ([facility]); 16 weeks gestation of ([facility]); Vaginal discharge; STD exposure; Screening, , for anatomic survey ([facility]) 01/29/2025 Bamboo flowsheet [facility] [address] [place] [address] Gogo Pang PA 01/18/[address] [facility] [address] [place] [address] Jennifer Lyman MA 01/01/2025 1:40 PM EDT Routine [facility] [address] [place] [address] Wolfgang Hoffman DO First trimester ([facility]); 12 weeks gestation of ([facility]); History of psychogenic nonepileptic seizure 01/01/[address] [address] [place] [address] Porsha Mejia LPN 01/01/2025 Bamboo flowsheet [facility] [address] [place] [address] Wolfgang Hoffman DO 12/18/2024 Abstract [facility] [address] [place] [address] Keyla Rodriguez MA 12/07/2024 Clinisync Result Encounter [facility] External Department Unsolicited Wolfgang Hoffman DO 12/06/2024 1:00 PM EDT Initial [facility] [address] [place] [address] GA: 9w1d 12/06/2024 12:30 PM EDT Ancillary Procedure [facility] [address] [place] [address] Missed menses 12/05/2024 Travel 11/08/2024 11:30 AM EDT Office Visit [facility] [address] [place] [address] Wolfgang Hoffman DO PCOS (polycystic ovarian syndrome) (Primary Dx) 11/08/2024 Bamboo flowsheet [facility] [address] [place] [address] Wolfgang Hoffman, DO 11/02/2024 Clinisync Result Encounter [facility] External Department Unsolicited Wolfgang Hoffman, DO 11/02/2024 Telephone [facility] [address] [facility] [place] [place] [address] Wolfgang Hoffman, DO 10/31/2024 Clinisync Result Encounter [facility] External Department Unsolicited YasminWolfgang, DO 10/29/2024 Telephone [facility] [address] [place] [address] Wolfgang Hoffman, DO 10/29/2024 Clinisync Result Encounter [facility] External Department Unsolicited Wolfgang Hoffman, DO from Last 3 Months Social History Tobacco Use Types Packs/Day Years Used Date Smoking Tobacco: Never Assessed Estimated Date of Delivery Comme nts Yes 07/10/2025 Based on Ultraso und, FHR-158 Sex and Gender Information Value Date Recorded Sex Assigned at Not on file Legal Sex Female 6:34 PM EDT Gender Identity Not on file Sexual Orientation Not on file Last Filed Vital Signs Vital Sign Reading Time Taken Comments Blood Pressure 116/68 01/29/2025 2:36 PM EDT Pulse - - Temperature - - Respiratory Rate - - Oxygen Saturation - - Inhaled Oxygen Concentration - - Weight 62.6 kg (138 lb) 01/29/2025 2:36 PM EDT Height 167.6 cm (5' 6 ) 12/21/2022 12:00 PM EDT Body Mass Index 22.27 12/21/2022 12:00 PM EDT Plan of Treatment Upcoming Encounters Date Type Department Care Team (Late st Contact Info) Description 02/25/2025 2:30 PM EDT Ancillary Procedure [facility] [address] [place] [address] 02/25/2025 3:40 PM EDT Routine [facility] [place] [address] Wolfgang Hoffman, DO [address] [facility] [place] [address] Procedures Procedure Name Priority Date/Time Associated Diagnosis Comments CULTURE, URINE, ROUTINE Routine 01/02/2025 2:43 PM EDT Missed menses HBSAG SCREEN Routine 12/07/2024 4:20 PM EDT RAPID PLASMA REAGIN, QUANT Routine 12/07/2024 4:20 PM EDT HIV AB/P24 AG WITH REFLEX Routine 12/07/2024 4:20 PM EDT HCV ANTIBODY RFX TO QUANT PCR Routine 12/07/2024 4:20 PM EDT ALL RUBELLA IGG AB Routine 12/07/2024 4: 20 PM EDT ALL TYPE AND SCREEN Routine 12/07/2024 4 :20 PM EDT MLR HEMOGLOBIN A1C Routine 12/07/2024 4: 20 PM EDT ALL CBC WITH AUTO DIFF Routine 12/07/2024 4:20 PM EDT BOX TEST Routine 12/07/2024 4:20 PM EDT CANNABINOID CONF, MS, UR Routine 12/07/2024 4:09 PM EDT TBH DRUG SCREEN RAPID (URINE) Routine 12/07/2024 4:09 PM EDT POCT URINALYSIS DIPSTICK Routine 12/06/2024 1:34 PM EDT Missed menses POCT , URINE Routine 12/06/2024 1:34 PM EDT Missed menses US OB TRANSVAGINAL Routine 12/06/2024 12 :56 PM EDT Missed menses TBH PREG QUANT HCG Routine 11/02/2024 9: 09 AM EDT TBH PREG QUANT HCG Routine 10/31/2024 9: 00 AM EDT TBH PREG QUANT HCG Routine 10/29/2024 9: 53 AM EDT from Last 3 Months Results * Urine culture (01/02/2025 2:43 PM EDT) Urine Urine specimen obtained by clean catch procedure / Unknown us Wolfgang Yasmin DO LAB MICROBIOLOGY - GENERAL ORDER HARIKA Final Result EXTERNAL LAB * BOX TEST (12/07/2024 4:20 PM EDT) BOX TEST SENT OUT [facility] [address] [facility] [address] 12/07/2024 [facility] 12/07/2024 4:20 PM EDT 12/07/2024 4:28 PM EDT Narrative CLINISYNC - 12/07/2024 4:48 PM EDT [facility] Wolfgang Yasmin DO LAB BLOOD ORDERABLES Final Resul t Performing Organization Address City/[facility]/ZIP Co de Phone Number CLINISYNC [facility] * HBSAG SCREEN (12/07/2024 4:20 PM EDT) HBSAG SCREEN Negative Negative [facility] Comment: Performed at: - [facility] [id number] Director Of National Sales: Raimundo Cardenas PhD, Phone: [phone] 12/07/2024 4:20 PM EDT 12/07/2024 4:35 PM EDT Narrative CLINISYNC - 12/09/2024 10:08 AM EDT us Wolfgang Yasmin DO LAB BLOOD ORDERABLES Final Resul t Performing Organization Address [facility] Co de Phone Number CLINISYNC TB * RAPID PLASMA REAGIN, QUANT (12/07/2024 4:20 PM EDT) Pathologist [facility] RAPID PLASMA REAGIN, QUANT Non Reactive NonRea<1: 1 titer [facility] Comment: Please Note: This test does not meet current guidelines for screening and diagnosis of syphilis. This test is intended for following treatment response in patients being treated for syphilis infection. To screen for syphilis infection, a reflex cascade that includes both RPR and a treponema-specific assay should be utilized, such as Treponema pallidum (Syphilis) Screening [place] (103963) or Rapid Plasma Reagin (RPR) Test With Reflex to Quantitative RPR and Confirmatory Treponema pallidum Antibodies (713453). Performed at: [facility] [employer] [id number] Director Of National Sales: Raimundo Cardenas PhD, Phone: [phone] 12/07/2024 4:20 PM EDT 12/07/2024 4:35 PM EDT Narrative CLINISYUT - 12/09/2024 10:08 AM EDT Result [facility] LAB BLOOD ORDERABLES Final Resul t Performing Organization Address [facility] de Phone Number CLINISYNC TBH * HIV AB/P24 AG WITH REFLEX (12/07/2024 4:20 PM EDT) Pathologist [facility] HIV AB/P24 AG SCREEN Non Reactive Non Reactive [facility] Comment: HIV-1/HIV-2 antibodies and HIV-1 p24 antigen were NOT detected. There is no laboratory evidence of HIV infection. HIV Negative Performed at: [facility] [address] [id number] Director Of National Sales: Raimundo Cardenas PhD, Phone: [phone] 12/07/2024 4:20 PM EDT 12/07/2024 4:35 PM EDT Narrative CLINISYUT - 12/09/2024 8:14 AM EDT Surreal Inko DO LAB BLOOD ORDERABLES Final Resul t Performing Organization Address [facility] de Phone Number [facility] * HCV ANTIBODY RFX TO QUANT PCR (12/07/2024 4:20 PM EDT) Pathologist [facility] HCV AB Non Reactive Non Reactive [facility] INTERPRETATION: Comment . TB Comment: Not infected with HCV unless early or acute infection is suspected (which may be delayed in an immunocompromised individual), or other evidence exists to indicate HCV infection. 12/07/2024 4:20 PM EDT 12/07/2024 4:28 PM EDT Narrative CLINISYNC - 12/09/2024 8:14 AM EDT [employer] LAB BLOOD ORDERABLES Final Resul t Performing Organization Address [facility] Phone Number [facility] * MLR HEMOGLOBIN A1C (12/07/2024 4:20 PM EDT) Pathologist [facility] GLYCOHEMOGLOBIN A1C 4.6 4.5 - 6.2 % [facility] Comment: ADA RECOMMENDED LIMIT 4.0 - 6.0 ADA THERAPEUTIC TARGET < 7.0 ACTION SUGGESTED > 7.0 ESTIMATED AVERAGE GLUCOSE 85 mg/dL TB 12/07/2024 4:20 PM EDT 12/07/2024 4:28 PM EDT Narrative CLINISYNC - 12/07/2024 5:27 PM EDT Wolfgang Yasmin DO CLINISYNC Final Result Performing Organization Address [facility] de Phone Number [facility] * ALL TYPE AND SCREEN (12/07/2024 4:20 PM EDT) Pathologist [facility] BLOOD TYPE O Positive TBH ANTIBODY SCREEN NEGATIVE TB 12/07/2024 4:20 PM EDT 12/07/2024 4:28 PM EDT Narrative CLINISYNC - 12/07/2024 6:31 PM EDT [facility] , Gyroszio DO CLINISYNC Final Result [facility] * ALL RUBELLA IGG AB (12/07/2024 4:20 PM EDT) [facility] RUBELLA ANTIBODIES, IGG 2.41 Immune >0.99 index TBH Comment: Non-immune <0.90 Equivocal 0.90 - 0.99 Immune >0.99 Performed at: - [facility] [id number] Director Of National Sales: Raimundo Cardenas PhD, Phone: [phone] 12/07/2024 4:20 PM EDT 12/07/2024 4:28 PM EDT Narrative CLINISYNC - 12/09/2024 8:14 AM EDT us Wolfgang Yasmin DO CLINISYNC Final Result Performing Organization Address City/[facility]/ZIP Co de Phone Number [facility] * ALL CBC WITH AUTO DIFF (12/07/2024 4:20 PM EDT) [facility] WBC 9.1 4.0 - 11.0 10 3/uL TBH TB RBC 4.62 4.20 - 5.40 10 6/uL TBH TB HGB 14.0 12.0 - 16.0 g/dL TB TB HCT 39.9 36.0 - 48.0 % TB TB MCV 86.4 81.0 - 99.0 fL TB TB MCH 30.3 26.7 - 34.0 pg TB TB MCHC 35.1 29.9 - 35.2 g/dL TB TB RDW 11.9 11.0 - 15.0 % TB TB PLT 181 150 - 450 10 3/uL TB TB MPV 12.0 9.5 - 13.5 fL TB NEUTROPHILS PERCENT AUTO 64.9 43.0 - 75.0 % TBH LYMPHOCYTES PERCENT AUTO 24.1 20.5 - 60.0 % TBH MONOCYTES PERCENT AUTO 8.2 1.7 - 12.0 % TBH TBH EO % 2.1 0.9 - 7.0 % TBH BASOPHILS PERCENT AUTO 0.4 0.2 - 2.0 % TBH IMMATURE GRANULOCYTES PCT AUTO 0.3 0.0 - 0.5 % TBH NEUTROPHILS ABSOLUTE AUTO 5.9 1.4 - 6.5 10 3/uL TBH LYMPHOCYTES ABSOLUTE AUTO 2.2 1.2 - 3.8 10 3/uL TBH MONOCYTES ABSOLUTE AUTO 0.7 0.3 - 0.8 10 3/uL TBH TBH EO # 0.2 0.0 - 0.7 10 3/uL TBH BASOPHILS ABSOLUTE AUTO 0.0 0.0 - 0.1 10 3/uL TBH IMMATURE GRANULOCYTES ABS AUTO 0.03 0.00 - 0.03 10 3/uL TBH 12/07/2024 4:20 PM EDT 12/07/2024 4:28 PM EDT Narrative CLINISYNC - 12/07/2024 5:08 PM EDT Wolfgang Yasmin DO CLINISYNC Final Result Performing Organization Address City/State/[facility] Co de Phone Number [facility] * (ABNORMAL) TB DRUG SCREEN RAPID (URINE) (12/07/2024 4:09 PM EDT) CANNABINOID SCREEN URINE POSITIVE(A) NEGATIVE TBH PHENCYCLIDINE SCREEN URINE NEGATIVE NEGATIVE TBH COCAINE SCREEN URINE NEGATIVE NEGATIVE TBH METHAMPHETAMINES SCREEN URINE NEGATIVE NEGATIVE TBH OPIATE SCREEN URINE NEGATIVE NEGATIVE TBH AMPHETAMINE SCREEN URINE NEGATIVE NEGATIVE TBH BENZODIAZEPINES SCREEN URINE NEGATIVE NEGATIVE TBH TRICYCLIC ANTIDEPRESSANT URINE NEGATIVE NEGATIVE TBH METHADONE SCREEN URINE NEGATIVE NEGATIVE TBH BARBITURATES SCREEN URINE NEGATIVE NEGATIVE TBH OXYCODONE SCREEN URINE NEGATIVE NEGATIVE TBH BUPRENORPHINE SCREEN URINE NEGATIVE NEGATIVE TBH Comment: DRUG CLASS TEST SYSTEM CUT-OFF CONCENTRATIONS ARE FOLLOWS: AMP (Amphetamine): 500 ng/mL BAR (Barbiturates): 200 ng/mL BZO (Benzodiazepines): 150 ng/mL BUP (Buprenorphine): 10 ng/mL LUCIO (Cocaine): 150 ng/mL mAMP (Methamphetamine): 500 ng/mL MTD (Methadone): 200 ng/mL OPI (Opiates): 100 ng/mL OXY (Oxycodone): 100 ng/mL PCP (Phencyclidine): 25 ng/mL THC (Cannabinoids): 50 ng/mL TCA (Trycyclic Antidepressants): 300 ng/mL 12/07/2024 4:09 PM EDT 12/07/2024 4:28 PM EDT Narrative CLINISYNC - 12/07/2024 5:29 PM EDT Wolfgang Yasmin DO CLINISYNC Final Result [facility] * (ABNORMAL) CANNABINOID CONF, MS, UR (12/07/2024 4:09 PM EDT) CANNABINOID Positive(A ) . TBH CARBOXY THC CONF, MS, UR 190 Cutoff=10 ng/mL TBH Comment: Performed at: [facility] [address] [place] [id number] Director Of National Sales: Aide Foley PhD, Phone: [phone] 12/07/2024 4:09 PM EDT 12/08/2024 8:38 AM EDT Narrative CLINISYNC - 12/17/2024 7:07 AM EDT Surreal Inko DO LAB BLOOD ORDERABLES Final Resul t Performing Organization Address [facility] Co de Phone Number [facility] * (ABNORMAL) POCT , urine manually resulted (12/06/2024 1:34 PM EDT) Preg Test, Ur Positive Negative Urine 12/06/2024 1:34 PM EDT Surreal Inko DO POINT OF CARE TEST ENTER/EDIT OR DERABLES Final Result * (ABNORMAL) POCT urinalysis dipstick manually resulted (12/06/2024 1:34 PM EDT) Color, UA Yellow Clarity, UA Clear Glucose, UA Negative Negative - 2000(110) ++++ mg/dL Bilirubin, UA Negative Negative - 4(70) +++ mg/dL Ketones, UA Negative Negative - 160(16) ++++ mg/dL Spec Grav, UA 1.020 1 - 1.03 Blood, UA Positive Negative - 50 Blayne/mcL Comment:trace-intact pH, UA 6.0 5 - 9 Protein, UA Negative Negative - 2000(20) ++++ mg/dL Urobilinogen, UA 0.2 0.2 - 12 mg/dL Leukocytes, UA Trace Negative - 500+++ Jo/mcL Nitrite, UA Negative Negative - Positive Urine 12/06/2024 1:34 PM EDT us Wolfgang Yasmin DO POINT OF CARE TEST ENTER/EDIT OR DERABLES Final Result * US OB transvaginal (12/06/2024 12:56 PM EDT) Anatomical Region Laterality Modality Body Ultrasound 12/09/2024 8:56 PM EDT Narrative 12/09/2024 8:56 PM EDT EXAM: US OB TRANSVAGINAL HISTORY: Dating. Beta HCG was 494 on 11/02/2024. . COMPARISON: None available TECHNIQUE: Two-dimensional transvaginal grayscale and color Doppler ultrasound imaging of the pelvis was performed. FINDINGS: The uterus demonstrates a normal homogeneous echotexture. The cervical os is closed. The right ovary measures 2.9 x 2.1 x 2.5 cm and demonstrates a normal echotexture. There is normal color Doppler flow. The left ovary measures 2.4 x 1.4 x 1.5 cm and demonstrates a normal echotexture. There is normal color Doppler flow. No fluid is present within the cul-de-sac. There is a single, live intrauterine gestation identified with a heart rate of 158 beats per minute and a crown-rump length measurement of 2.5 cm, correlating to a gestational age of 9 weeks 1 days (+/- 6 days). There is no subchorionic hemorrhage visualized. A yolk sac is visualized. IMPRESSION: 1. Single, live intrauterine gestation. Today's ultrasound measurements correlate with a gestational age of 9 weeks 1 days (+/- 6 days). TRACI by today's ultrasound is 07/10/2025. 2. Normal color Doppler evaluation of the bilateral ovaries. Interpreted by: Electronically signed by FINA WRIGHT II, MD, PHD at 09-Dec-2024 08:55:08 PM [facility] Procedure Note Fina Wright MD - 12/09/2024 EXAM: US OB TRANSVAGINAL HISTORY: Dating. Beta HCG was 494 on 11/02/2024. . COMPARISON: None available TECHNIQUE: Two-dimensional transvaginal grayscale and color Dopplerultrasound imaging of the pelvis was performed. FINDINGS: The uterus demonstrates a normal homogeneous echotexture. The cervical osis closed. The right ovary measures 2.9 x 2.1 x 2.5 cm and demonstrates a normalechotexture. There is normal color Doppler flow. The left ovary measures 2.4 x 1.4 x 1.5 cm and demonstrates a normalechotexture. There is normal color Doppler flow. No fluid is present within the cul-de-sac. There is a single, live intrauterine gestation identified with a fetalheart rate of 158 beats per minute and a crown-rump length measurement of2.5 cm, correlating to a gestational age of 9 weeks 1 days (+/- 6 days).There is no subchorionic hemorrhage visualized. A yolk sac isvisualized. IMPRESSION: 1. Single, live intrauterine gestation. Today's ultrasound measurementscorrelate with a gestational age of 9 weeks 1 days (+/- 6 days). TRACI bytoday's ultrasound is 07/10/2025. 2. Normal color Doppler evaluation of the bilateral ovaries. Interpreted by: Electronically signed by FINA WRIGHT II, MD, PHD [id number] 08:55:08 PM [facility] us Wolfgang Hoffman DO [facility] OB US PROCEDURES Final Resul t * TBH PREG QUANT HCG (11/02/2024 9:09 AM EDT) Only the most recent of3 resultswithin the time period is included. HCG QUANTITATIVE 494 mIU/mL TBH Comment: 5-50 0.2-1 WEEK 50-500 1-2 WEEKS 100-5,000 2-3 WEEKS 500-10,000 3-4 WEEKS 1,000-50,000 4-5 WEEKS 10,000-100,000 5-6 WEEKS 15,000-200,000 6-8 WEEKS 10,000-100,000 2-3 MONTHS 11/02/2024 9:09 AM EDT 11/02/2024 9:12 AM EDT Narrative CLINISYNC - 11/02/2024 11:05 AM EDT us Wolfgang Yasmin DO CLINISYNC Final Result [facility] from Last 3 [place] [address] [employer] Care Teams Strawberry Grower Relationship Specialty Start Date End Date Jose E Burns MD [address] [facility][1[place] [address] PCP - General Family Medicine 02/16/23
--- OUTSIDE RECORDS SUMMARY | 2025-01-29 19:15 | XMS_ITS | Encounter Summary ---
Author Organization [facility] Address [address] [facility] [place] [address] Care Team Providers Care Machinery Mechanic Name Role Phone Jose E Burns MD Primary Care Provider [phone] Encounter Details Date Type Department Care Team (Late Contact Info) Description 01/11/2023 Abstract [facility] [address] [place] [address] Wolfgang Hoffman DO [facility] [address], [place] [address] Social History Tobacco Use Types Packs/Day Years [...] 02/25/2025 2:30 PM EDT Ancillary Procedure [facility] [place] [id number] 02/25/2025 3:40 PM EDT Routine [facility] OB [facility] [place] [address] Wolfgang Hoffman, DO [facility] [place] [address] documented as of this encounter Visit Diagnoses Not on filedocumented in this encounter Care Teams Machinery Mechanic Relationship Specialty Start Date End Date Jose E Burns MD [address] [place] [address] PCP - General Family Medicine 02/16/23 documented as of this encounter
--- OUTSIDE RECORDS SUMMARY | 2025-01-29 19:15 | XMS_ITS | Clinical Summary ---
Author Organization [facility] Address [address] [place] [address] Care Team Providers Care Glove Cleaner Name Role Phone Unavailable Primary Care Provider Unavailabl e Allergies No known active allergies Medications LAMICTAL 100 MG tablet Take 1 tablet by mouth 2 times daily 05/16/2023 Active albuterol sulfate HFA (VENTOLIN HFA) 108 (90 Base) MCG/ACT inhaler Inhale 2 puffs into the lungs every 6 hours as needed for Wheezing Active pantoprazole (PROTONIX) 40 MG tablet Take 1 tablet by mouth Daily with supper Active desvenlafaxine succinate (PRISTIQ) 50 MG TB24 extended release tablet Take 1 tablet by mouth daily Active hyoscyamine (LEVSIN/SL) [address] 1 tablet under the tongue every 6 hours as needed for Cramping Active Active Problems Problem Noted Date Diagnosed Date Psychiatric problem 08/30/2023 Seizure-like activity 08/30/2023 Social History Tobacco Use Types Packs/Day Years Used Date Smoking Tobacco: Never Smokeless Tobacco: Never Tobacco Cessation:Counseling Given: Not Answered Alcohol Use Standard Drinks/Week Comments Never 0 (1 standard drink = 0.6 oz pur e alcohol) [facility] Utilities Answer Date Recorded In the past 12 months has th e electric, gas, oil, or water company threatened to shut off services in your home? No 08/30/2023 Hunger Vital Sign Answer Date Recorded Within the past 12 months, y ou worried that your food would run out before you got the money to buy more. Never true 08/30/19 24 Within the past 12 months, t he food you bought just didn't last and you didn't have money to get more. Never true 08/30/2023 PRAPARE - Transportation Answer Date Re corded In the past 12 months, has l ack of transportation kept you from medical appointments or from getting medications? Patient declined 08/30/2023 In the past 12 months, has l ack of transportation kept you from meetings, work, or from getting things needed for daily living? Patient declined 08/30/2023 Housing Stability Vital Sign Answer Devon e Recorded In the last 12 months, was t here a time when you were not able to pay the mortgage or rent on time? No 08/30/2023 In the last 12 months, how many places have you lived? 1 08/30/2023 In the last 12 months, was t here a time when you did not have a steady place to sleep or slept in a mcc (including now)? No 08/30/2023 Interpersonal Safety ([facility] HRSN) Answer Date Recorded How often does anyone, ruben hillman family and friends, physically hurt you? Patient declined 08/30/2023 How often does anyone, ruben hillman family and friends, scream or curse at you? Not on file 08/30/2023 How often does anyone, ruben hillman family and friends, insult or talk down to you? Not on file 08/30/2023 How often does anyone, inclgodfrey hillman family and friends, threaten you with harm? Not on file 08/30/2023 Food Insecurity Answer Date Recorded Within the past 12 months, y ou worried that your food would run out before you got the money to buy more. 1 08/30/2023 Within the past 12 months, t he food you bought just didn't last and you didn't have money to get more. 1 08/30/2023 Interpersonal Safety Domain Source: IP Abuse Scr eening Answer Date Recorded How often does anyone, destinyu kady family and friends, physically hurt you? Patient declined 08/30/2023 How often does anyone, inclu kady family and friends, scream or curse at you? Not on file 08/30/2023 How often does anyone, ruben hillman family and friends, insult or talk down to you? Not on file 08/30/2023 How often does anyone, inclu ding family and friends, threaten you with harm? Not on file 08/30/2023 Read-Only, Retired: Physical Abuse Denies 08/30/2023 Read-Only, Retired: Verbal Abuse Denies 08/30/2023 Read-Only, Retired: Emotional abuse Denies 08/30/2023 Read-Only, Retired: Financial Abuse Denies 08/30/2023 Read-Only, Retired: Sexual abuse Denies 08/30/2023 Comments Unknown Sex and Gender Information Value Date Recorded Sex Assigned at Not on file Legal Sex Female 9:09 AM EDT Gender Identity Not on file Sexual Orientation Not on file Last Filed Vital Signs Vital Sign Reading Time Taken Comments Blood Pressure 122/74 08/31/2023 3:44 PM EST Pulse 84 08/31/2023 3:44 PM EST Temperature 36.8 C (98.3 F) 08/31/2023 3:44 PM EST Respiratory Rate 16 08/31/2023 3:44 PM EST Oxygen Saturation 96% 08/31/2023 3:44 PM EST Inhaled Oxygen Concentration - - Weight 59.5 kg (131 lb 2.8 oz) 08/30/2023 12:35 PM EST Height 175.3 cm (5' 9 ) 08/30/2023 12:35 PM EST Body Mass Index 19.37 08/30/2023 12:35 PM EST Plan of Treatment Health Maintenance Due Date Last Done Comments Depression Screen 2015 HIV screen 2018 Chlamydia/GC screen 2019 Hepatitis C screen 2021 COVID-19 Vaccine ( season) 2024 Pap smear 2024 Flu vaccine (Season Ended) 2025 06/23/2021 DTaP/Tdap/Td vaccine (7 - Td or Tdap) 03/25/2026 03/25/2016, 04/23/2009, 02/24/2007, Additional history exists Hepatitis B vaccine Completed 08/24/2006, 05/11/2004, 04/09/2004, Additional history exists Hib vaccine Completed 02/24/2007, 08/08, 05/11/2004, Additional history exists Pneumococcal 0-49 years Vaccine Aged Out 02/24/2007, 08/24/2006, 05/11/2004, Additional history exists No longer eligible based on patient's age to complete this topic Hepatitis A vaccine Completed 04/23/2009, 7 Measles,Mumps,Rubella (MMR) vaccine Discontinued 04/23/2009, 08/24/2006 Polio vaccine Completed 04/23/2009, 08/08, 05/11/2004, Additional history exists Varicella vaccine Completed 04/23/2009, 08/24/2006 HPV vaccine Completed 03/22/2017, 06/08, 03/25/2016 Meningococcal (ACWY) vaccine Completed 05/04/2021, 03/25/2016 Meningococcal B vaccine Completed 06/23/2021, 05/[address] [place] [address] Advance Directives * Full Code (Latest Code Status on File) Date Activated Date Inactivated Comments 08/30/2023 12:38 PM 08/31/2023 7:34 PM
--- OUTSIDE RECORDS SUMMARY | 2025-01-29 19:15 | XMS_ITS | Encounter Summary ---
Author Organization [facility] Address [address] [facility] [place] [address] Care Team Providers Care Developmental Training Counselor Name Role Phone Jose E Burns MD Primary Care Provider [phone] Encounter Details Date Type Department Care Team (Late st Contact Info) Description 01/01/2025 Telephone [facility] [address] [facility] [place] [address] Porsha Mejia LPN Social History Tobacco Use Types Packs/Day Years [...] encounter Miscellaneous Notes * Telephone Encounter - Porsha Mejia LPN - 01/01/2025 2:24 PM EDT Please refer to neurology for seizures during documented in this encounter Plan of Treatment Upcoming Encounters Date Type Department Care Team (Late st Contact Info) Description 02/25/2025 2:30 PM EDT Ancillary Procedure [facility] [address] [facility] [facility] [place] [address] 02/25/2025 3:40 PM EDT Routine [facility] [address] [place] [address] Wolfgang Hoffman DO [address] [place] [address] documented as of this encounter Visit Diagnoses Not on filedocumented in this encounter Care Teams Developmental Training Counselor Relationship Specialty Start Date End Date Jose E Burns MD [address] [facility] [place] [address] PCP - General Family Medicine 02/16/23 documented as of this encounter
--- OUTSIDE RECORDS SUMMARY | 2025-01-29 19:15 | XMS_ITS | Clinical Summary ---
Author Organization [email or web address] Address [id number] [address] [place] [address] Care Team Providers Care Contestant Coordinator Name Role Phone Jose E Burns MD Primary Care Provider [phone] Allergies No known active allergies Medications FLUoxetine (PROzac) 10 mg capsule TAKE 1 CAPSULE BY ORAL ROUTE PER DAILY TAKE 30 MG (20 MG + 10 MG) DAILY 11/07/19 21 Active albuterol (PROVENTIL HFA;VENTOLIN HFA) 90 mcg/actuation inhaler Inhale 2 puffs. Acti ve lamoTRIgine (LaMICtal) 100 mg tablet Take 1 tablet (100 mg total) by mouth in the morning. 05/16/20 23 Active ondansetron ODT (ZOFRAN ODT) 4 mg disintegrating tablet Dissolve 1 tablet (4 mg total) on tongue. 06/01/20 23 Active medroxyPROGESTERon e (DEPO-PROVERA) 150 mg/mL injection Inject 1 mL (150 mg total) into the appropriate muscle every 3 (three) months. Active acetaminophen (TYLENOL EXTRA STRENGTH) 500 mg tablet Take 2 tablets (1,000 mg total) by mouth every 6 (six) hours. 30 tablet 10/03/19 24 Active ibuprofen (MOTRIN) 600 mg tablet Take 1 tablet (600 mg total) by mouth every 6 (six) hours. 30 tablet 10/03/19 24 Active Active Problems No known active problems Family History Medical History Relation Name Comments COPD Father Heart disease Father Diabetes Mother Relation Name Status Comments Father Alive Mother Alive Sister Alive Social History Tobacco Use Types Packs/Day Years Used Date Smoking Tobacco: Some Days Cigarettes Smokeless Tobacco: Never Tobacco Cessation:Ready to Q uit: Not Asked; Counseling Given: Not Answered Comments:Will smoke a cigarette if does not have a vape Alcohol Use Standard Drinks/Week Comments Never 0 (1 standard drink = 0.6 oz pur e alcohol) Childcare Answer Date Recorded Childcare Unknown 01/17/2019 Employment Answer Date Recorded Employment Unknown 01/17/2019 Hunger Screening Answer Date Recorded Within the past 12 months we worried whether our food would run out before we got money to buy more. Never True 10/18/2023 Food Insecurity - Inability Not on file 10/06 Comments No Sex and Gender Information Value Date Recorded Sex Assigned at Not on file Legal Sex Female 12:01 PM EDT Gender Identity Not on file Sexual Orientation Not on file Last Filed Vital Signs Vital Sign Reading Time Taken Comments Blood Pressure 123/62 10/18/2023 10:03 AM EDT Pulse 74 10/18/2023 10:03 AM EDT Temperature 36.4 C (97.5 F) 10/03/2023 1:45 PM EST Respiratory Rate 10 10/03/2023 2:29 PM EST Oxygen Saturation 100% 10/03/2023 2:29 PM EST Inhaled Oxygen Concentration - - Weight 60.6 kg (133 lb 9.6 oz) 10/18/2023 10:03 AM EDT Height 175.3 cm (5' 9 ) 10/18/2023 10:03 AM EDT Body Mass Index 19.73 10/18/2023 10:03 AM EDT Plan of Treatment Health Maintenance Due Date Last Done Comments Depression Screening 2015 Pap Smear 2024 Adult BMI Screening 10/17/2024 10/18/2023 Tobacco Screening 10/17/2024 10/18/2023 Influenza Vaccine 04/08/2025 06/23/2021, , 07/29/2011 DTaP,Tdap and Td Vaccines (7 - Td or Tdap) 03/25/2026 03/25/2016, 04/23/2009, 02/24/2007, Additional history exists Medical Devices Not on file [place] [address] [address] [place] [address] MEDICAID Care Teams Contestant Coordinator Relationship Specialty Start Date End Date Jose E Burns MD PCP - General Family Medicine 03/25/21
[2025-02-04 09:08] LABS: Age Gdln ACOG Testing Note (.); IGP, rfx Aptima HPV ASCU Note (.)
== END 2025-01-29 19:13 | disposition home or self-care (01) ==
LOC: LAB 19:12
PROVIDERS: PCP Family Medicine; Visit Provider Physician Assistant
DX: Z01.419 Encounter for gynecological examination (general) (routine) without abnormal findings (principal)
CPT/HCPCS: 88175

== ENCOUNTER 2025-04-30 14:29 | Outpatient (OUT) | payer OTHER, SELFPAY ==
--- OUTSIDE RECORDS SUMMARY | 2025-04-30 14:37 | XMS_ITS | CCD ---
Author Organization [facility] Care Team Providers Care Data Entry Coordinator Name Role Phone YASMIN ., DR ALLEN [...] Unavailable YASMIN ., DR ALLEN Attending Unavailable KOTZEBUE, DR YO [employer] Unavailable YASMIN ., [...] YAMEL ., GOGO Admitting Unavailable YAMEL ., GGOO Attending Unavailable HOY ., DR WETZEL Primary [...] Primary Care Unavailable ALICJA AVILA Unavailable Rashard Montez Primary Care Physician [phone] Rashard Montez Referring Unavailable Alicja LINARES Attending Unavailable Ozzie Montezlas Referring Unavailable Alicja LINARES Attending Unavailable ELISA [...] HOY, RASHARD M Primary Care Unavailable VIKI PATEL Attending Unavailable HOY, RASHARD M Referring Unavailable [...] HOY, RASHARD M Primary Care Unavailable Rashard Montez MD Primary Care Provider [phone] Rashard Montez MD Primary Care Provider [phone] Rashard Montez MD Primary Care Provider [phone] Rashard Montez MD Primary Care Provider [phone] Shivam Gutierrez Admitting Unavailab Shivam Melchor Attending Unavailab le NO FAMILY, PHYSICIAN Primary Care Unavailable YASMIN, WOLFGANG Attending Unavailable YASMIN, WOLFGANG Attending Unavailable YASMIN, WOLFGANG Attending Unavailable GOGO PANG Attending Unavailable YASMIN, WOLFGANG Attending Unavailable YAMEL, GOGO Attending Unavailable YASMIN, WOLFGANG Attending Unavailable ELVIA CALVILLO Attending Unavailable YASMIN, WOLFGANG Attending Unavailable Allergies Allergy Classification Reported Allergen(s) Allergy Type Date of Onset Reaction(s) Facility (1 source) amanda allergenic extract Drug Allergy [facility] Repository (1 source) Unable to obtain; Translations: [Unable to obtain] Propensity to adverse reactions (disorder) [facility] Repository (1 source) No Known Medication Allergies; Translations: [No Known Medication Allergies] Propensity to adverse reactions (disorder) [facility] Repository Medications Current Medications Medication Drug Class(es) Dates Sig (Normalized) Sig (Original) acetaminophen 500 mg oral tablet (2 sources) Start: 10-03-2023 take 2 tablets by mouth every six hours acetaminophen (TYLENOL EXTRA STRENGTH) 500 mg tablet Take 2 tablets (1,000 mg total) by mouth every 6 (six) hours. 30 tablet 0 10/03/2023 Active [id number] 200 actuat albuterol 0.09 mg/actuat metered dose inhaler (13 sources) beta2-Adrenergic Agonist End: 12-06-2024 albuterol HFA 90 mcg/act inhaler Inhale 2 puffs 12/06/2024 Discontinued albuterol (PROVE NTIL HFA;VENTOLIN HFA) 90 mcg/actuation inhaler Inhale 2 puffs. 0 Active cephalexin 50 mg/ml oral suspension (2 sources) Cephalosporin Antibacterial Start: 03-20-2025 End: 08-23-2025 take 10 mL by mouth every six hours cephalexin (Keflex) 250 MG/5ML suspension Indications: Urinary tract infection without hematuria, site unspecified Take 10 mL (500 mg) by mouth every 6 (six) hours for 10 days 400 mL 03/20/2025 03/30/2025 Active citalopram 20 mg oral tablet (17 sources) Serotonin Reuptake Inhibitor Start: 04-03-2025 End: 09-30-2025 take 1 tablet by mouth once daily citalopram (CeleXA) 20 MG tablet Indications: Anxiety, generalized Take 1 tablet (20 mg) by mouth Daily 30 tablet 5 04/03/2025 09/30/2025 Active End: 12-06-2024 take 1 tablet by mouth in the morning citalopram (CeleXA) 10 MG tablet Take 10 mg by mouth in the morning. 12/06/2024 Discontinued desmopressin acetate 0.2 mg oral tablet (9 sources) Vasopressin Analog, Factor VIII Activator End: 12-06-2024 desmopressin (DDAVP) 0.2 MG tablet 2 qam and 1 prn 12/06/2024 Discontinued desogestrel 0.15 mg / ethinyl estradiol 0.03 mg oral tablet (9 sources) Progestin, Estrogen Start: 06-19-2024 End: 12-06-2024 take 1 tablet by mouth once daily, then take 1 tablet by mouth once daily desogestrel-ethinyl estradiol (Apri) 0.15-30 MG-MCG tablet Indications: Encounter for BCP ( control pills) initial prescription Take 1 tablet by mouth Daily Take 1 tablet by mouth daily 84 tablet 3 06/19/2024 12/06/2024 Discontinued 24 hr desvenlafaxine succinate 50 mg extended release oral tablet (10 sources) Serotonin and Norepinephrine Reuptake Inhibitor Start: 06-22-2023 End: 12-06-2024 take 1 tablet by mouth once daily Pristiq 50 mg Tab-ER 50 mg = 1 tab(s), Oral, Daily, Refills(s) 0 Start Date: 06/22/23 Status: Ordered FLUoxetine 10 mg oral capsule (7 sources) Serotonin Reuptake Inhibitor Start: 11-06-2020 take 1 capsule by mouth once daily FLUoxetine (PROzac) 10 mg capsule TAKE 1 CAPSULE BY ORAL ROUTE PER DAILY TAKE 30 MG (20 MG + 10 MG) DAILY 0 11/06/2020 Active hyoscyamine sulfate 0.125 mg oral tablet (10 sources) Start: 07-05-2023 End: 12-06-2024 hyoscyamine (Levsin) 0.125 MG tablet Take 0.125 mg by mouth 07/05/2023 12/06/2024 Discontinued ibuprofen 600 mg oral tablet (2 sources) Nonsteroidal Anti-inflammatory Drug Start: 10-03-2023 take 1 tablet by mouth every six hours ibuprofen (MOTRIN) 600 mg tablet Take 1 tablet (600 mg total) by mouth every 6 (six) hours. 30 tablet 0 10/03/2023 Active lamoTRIgine 100 mg oral tablet (14 sources) Mood Stabilizer, Anti-epileptic Agent Start: 05-16-2023 End: 12-06-2024 take 1 tablet by mouth in the morning lamoTRIgine (LaMICtal) 100 MG tablet Take 1 tablet by mouth in the morning and 1 tablet before bedtime. 05/16/2023 12/06/2024 Discontinued medroxyPROGESTERone acetate 10 mg oral tablet (20 sources) Progestin Start: 09-25-2024 End: 12-06-2024 take 1 tablet by mouth once daily medroxyPROGESTERone (Provera) 10 MG tablet Indications: PCOS (polycystic ovarian syndrome) Take 1 tablet (10 mg) by mouth Daily for 14 days 14 tablet 09/25/2024 12/06/2024 Discontinued Start: 12-30-2023 End: 12-06-2024 medroxyPROGESTERone (Depo-Pr overa) 150 MG/ML suspension prefilled syringe injection syringe Indications: Encounter for initial prescription of injectable contraceptive INJECT 1 ML (150 MG) INTO THE SHOULDER, THIGH, OR BUTTOCKS EVERY 3 (THREE) MONTHS. 1 mL 3 12/30/2023 12/06/2024 Discontinued Start: 09-30-2023 End: 12-06-2024 medroxyPROGESTERone (Depo-Pr overa) injection 150 mg medroxyPROGESTER one (DEPO-PROVERA) 150 mg/mL injection Inject 1 mL (150 mg total) into the appropriate muscle every 3 (three) months. 0 Active metroNIDAZOLE 0.0075 mg/mg vaginal gel (9 sources) Nitroimidazole Antimicrobial Start: 03-25-2025 metroNIDAZOLE (Metrogel) 0.75 % vaginal gel Indications: Bacterial vaginosis Patient to use vaginally nightly for 5 nights, then twice weekly thereafter for 4 months. 140 g 3 03/25/2025 Active ondansetron 4 mg disintegrating oral tablet (19 sources) Serotonin-3 Receptor Antagonist Start: 01-18-2025 End: 02-17-2025 take 1 tablet by mouth every six hours for nausea ondansetron ODT (Zofran-ODT) 4 MG disintegrating tablet Indications: Nausea and vomiting in ([facility]) Take 1 tablet (4 mg) by mouth every 6 (six) hours if needed for nausea or vomiting 30 tablet 2 01/18/2025 02/17/2025 Active Start: 06-01-2023 End: 12-06-2024 ondansetron ODT (Zofran-ODT) [address] ONE TABLET ON THE TONGUE AND ALLOW TO DISSOLVE EVERY 6 HOURS NEEDED FOR 3 DAYS 06/02/2023 12/06/2024 Discontinued pantoprazole 40 mg delayed release oral tablet (12 sources) Proton Pump Inhibitor Start: 06-01-2023 End: 12-06-2024 pantoprazole (ProtoNix) 40 MG EC tablet Take 40 mg by mouth 06/01/2023 12/06/2024 Discontinued 28-0.8 MG tablet (20 sources) take 1 tablet by mouth once daily 28-0.8 MG tablet Take 1 tablet by mouth Daily Active Vit-Fe Fumarate-FA ( Plus) 27-1 MG tablet (9 sources) End: 12-06-2024 Vit-Fe Fumarate-FA ( Plus) 27-1 MG tablet 1 (one) time each day at the same time. 12/06/2024 Discontinued Vit-Fe Fumarate-FA ( Plus) 27-1 MG tablet 1 (one) time each day at the same time. Active Problems Active Problems Problem Classification Problem Date Documented Date Episodic/Chronic Abdominal pain (12 sources) Unspecified abdominal pain; Translations: [Upper abdominal pain, unspecified] Onset: 02-22-2022 Episodic Allergic reactions (1 source) Allergy, unspecified, initial encounter; Translations: [ALLERGY UNSPECIFIED INITIAL ENCNTR] Onset: 11-08-2022 Episodic Anxiety disorders (2 sources) Generalized anxiety disorder; Translations: [Generalized anxiety disorder] 04-03-2025 Chronic Asthma (3 sources) Asthma; Translations: [Unspecified asthma, uncomplicated] Onset: 09-28-2023 07-05-2023 Chronic Attention-deficit, conduct, and disruptive behavior disorders (20 sources) Attention deficit hyperactivity disorder; Translations: [Attention-deficit [...] 04-30-2022 Chronic Genitourinary symptoms and ill-defined conditions (20 sources) Nocturnal enuresis; Translations: [Nocturnal enuresis] Onset: 12-12-2012 01-26-2023 Chronic Headache; including migraine (20 sources) Migraine; Translations: [Migraine, unspecified, not intractable, without status migrainosus] Onset: 11-28-2020 07-05-2023 Chronic Immunizations and screening for infectious disease (2 sources) Exposure to sexually transmissible disorder; Translations: [Contact with and (suspected) exposure to infections with a predominantly sexual mode of transmission] 01-29-2025 Episodic Inflammatory diseases of female pelvic organs (2 sources) Bacterial vaginosis; Translations: [Acute vaginitis] 03-20-2025 Episodic Menstrual disorders (5 sources) Irregular menstruation, unspecified; Translations: [Missed period] Onset: 08-24-2022 Chronic Miscellaneous mental health disorders (20 sources) Dissociative neurological symptom disorder; 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-2020 07-05-2023 Chronic Mycoses (2 sources) Mycosis; Translations: [Candidiasis, unspecified] 03-20-2025 Episodic Other aftercare (1 source) Other nursing home (current) drug therapy; Translations: [OTH HOSPICE COORDINATOR CURRENT DRUG THERAPY] Onset: 11-08-2022 Episodic Other [...] applicable or unspecified; Translations: [MAT CARE OTH RI FTL GRTH 3RD TM UNS] Onset: 12-31-2022 [...] Translations: [Polycystic ovarian syndrome] 09-25-2024 Chronic Other female genital disorders (2 sources) Vaginal discharge; Translations: [Other specified noninflammatory disorders of vagina] 01-29-2025 Episodic Other lower respiratory disease (3 sources) Shortness of breath; Translations: [SHORTNESS OF BREATH] Onset: 11-04-2022 Episodic Other and delivery including normal (20 sources) Encounter for supervision of normal , unspecified, third trimester; Translations: [Encounter for supervision of normal first , first trimester] Onset: 06-22-2022 Episodic Other screening for suspected conditions (not mental disorders or infectious disease) (6 sources) Patient encounter status; Translations: [Encounter for other specified screening] 01-29-2025 Episodic Residual codes; unclassified (1 source) 36 [...] unspecified; Translations: [Pain, unspecified] Onset: 08-23-2023 Episodic Residual codes; unclassified (2 sources) Gestation period, 12 weeks; Translations: [12 weeks gestation of ] 01-01-2025 Episodic Residual codes; unclassified (4 sources) Personal history of other specified conditions; Translations: [Personal history of other specified diseases] 01-01-2025 Episodic Residual codes; unclassified (2 sources) Gestation period, 16 weeks; Translations: [16 weeks gestation of ] 01-29-2025 Episodic Residual codes; unclassified (2 sources) Gestation period, 20 weeks; Translations: [20 weeks gestation of ] 02-25-2025 Episodic Residual codes; unclassified (2 sources) Gestation period, 24 weeks; Translations: [24 weeks gestation of ] 03-20-2025 Episodic Residual codes; unclassified (2 sources) Gestation period, 26 weeks; Translations: [26 weeks gestation of ] 04-03-2025 Episodic Residual codes; unclassified (2 sources) Gestation period, 28 weeks; Translations: [28 weeks gestation of ] 04-17-2025 Episodic Residual codes; unclassified (2 sources) Gestation period, 29 weeks; Translations: [29 weeks gestation of ] 04-29-2025 Episodic Spondylosis; intervertebral disc disorders; other back problems (1 source) Degeneration of cervical intervertebral disc 07-05-2023 Chronic Substance-related disorders (1 source) Nicotine dependence, cigarettes, uncomplicated; Translations: [NICOTINE DEPEND CIGARETTES UNCOMP] Onset: 05-28-2023 Chronic Unclassified (3 sources) CONTACT W/AND (SUSP) EXPOS COVID-19; Translations: [CONTACT W/AND (SUSP) EXPOS COVID-19] Onset: 06-28-2022 Unclassified (1 source) Post-op Onset: 10-18-2023 Unclassified (1 source) Cholelithiasis Onset: 09-27-2023 Urinary tract infections (3 sources) Urinary tract infection, site not specified; Translations: [Urinary tract infectious disease] Onset: 06-22-2022 03-20-2025 Episodic Past or Other Problems Problem Classification Problem Date Documented Date Episodic/Chronic Administrative/social admission (20 sources) Deterioration in school performance; Translations: [Other [...] [CONTACT W/AND (SUSP) EXPOS COVID-19] Onset: 06-25-2022 Results Test Name Value Interpretation Reference Range Facility Urinalysis macro (dipstick) panel (U)on 04-29-2025 Bilirubin, UA Negative Negative - 4(70) +++ mg/dL [facility] Blood, UA Negative Negative - 50 Blayne/mcL [facility] Clarity, UA Clear [facility] Healthmi re Color, UA Yellow [facility] Healthcar e Glucose, UA Negative Negative - 1999(110) ++++ mg/dL [facility] Interpretation and review of laboratory results Normal [facility] Ketones, UA Negative Negative - 160(16) ++++ mg/dL [facility] Leukocytes, UA Negative Negative - 500+++ Jo/mcL [facility] Nitrite, UA Negative Negative - Positive [facility] pH, UA 6 5 - [address] [facility] e Protein, UA 1+ Negative - 1999(20) ++++ mg/dL [facility] Spec Grav, UA 1.02 1 - 1.03 [facility] Urobilinogen, UA 1.0 0.2 - 12 mg/dL [facility] Healthcar e Urinalysis macro (dipstick) panel (U)on 04-17-2025 Bilirubin, UA Negative Negative - 4(70) +++ mg/dL [facility] Blood, UA Negative Negative - 50 Blayne/mcL [facility] Clarity, UA Clear [facility] Healthca re Color, UA Yellow [facility] Healthcar e Glucose, UA Negative Negative - 1999(110) ++++ mg/dL [facility] Interpretation and review of laboratory results Normal [facility] re Ketones, UA Negative Negative - 160(16) ++++ mg/dL [facility] Leukocytes, UA Negative Negative - 500+++ Jo/mcL [facility] Nitrite, UA Negative Negative - Positive [facility] pH, UA 6 5 - 9 [facility] Healthcar e Protein, UA Negative Negative - 1999(20) ++++ mg/dL [facility] Spec Grav, UA 1.02 1 - 1.03 [facility] Urobilinogen, UA 0.2 0.2 - 12 mg/dL [facility] Urinalysis macro (dipstick) panel (U)on 03-20-2025 Bilirubin, UA Negative Negative - 4(70) +++ mg/dL [facility] Blood, UA Negative Negative - 50 Blayne/mcL [facility] Clarity, UA Clear [facility] Healthca re Color, UA Yellow [facility] Healthcar e Glucose, UA Negative Negative - 1999(110) ++++ mg/dL [facility] Interpretation and review of laboratory results Abnormal [facility] Healthca re Ketones, UA Negative Negative - 160(16) ++++ mg/dL [facility] Leukocytes, UA Positive Negative - 500+++ Jo/mcL [facility] Comment on above: 2+ Nitrite, UA Negative Negative - Positive [facility] pH, UA 6 5 - 9 [facility] Healthcar e Protein, UA Negative Negative - 1999(20) ++++ mg/dL [facility] Spec Grav, UA 1.025 1 - 1.03 [facility] Urobilinogen, UA 0.2 0.2 - 12 mg/dL [facility] Health[facility] e US OB 14+ WEEKS ANATOMY SCAN on 02-25-2025 US OB 14+ WEEKS ANATOMY SCAN EXAM: US OB 14+ WEEKS ANATOMY SCAN HISTORY: anatomy. COMPARISON: Ob ultrasound 12/06/2024. TECHNIQUE: Two-dimensional transabdominal grayscale ultrasound imaging of the pelvis was performed. FINDINGS: Gestation: Single Presentation: Cephalic Cardiac Activity: 130 beats per minute Placental Location: Anterior with no sonographic abnormalities identified. Distance from Placental Tip to Cervix: 7.1 cm Cervical Length: 4.1 cm Amniotic Fluid: Appears adequate MEASUREMENTS: BPD: 5.0 cm EGA: 21 weeks 0 days HC: 18.4 cm EGA: 20 weeks 6 days AC: 15.9 cm EGA: 21 weeks 0 days FL: 3.4 cm EGA: 20 weeks 5 days HC/AC Ratio: 1.16 The gestational age by today's ultrasound is 20 weeks 6 days (+/- 10 days gestation). Estimated Weight: 383 grams, +/- 57 grams ( 0 lb 14 oz). Weight Percentile for gestational age: 54 % ANATOMY C-Spine: Unremarkable T-Spine: Unremarkable L-Spine: Unremarkable Sacrum: Unremarkable Four Chamber Heart: Unremarkable LVOT: Unremarkable RVOT: Unremarkable Stomach: Unremarkable Kidneys: Unremarkable Bladder: Unremarkable Diaphragm: Unremarkable Cord insertion: Unremarkable Cord vessels: Three Lateral Ventricles: Unremarkable Cerebellum: Unremarkable Cisterna Magna: Unremarkable Posterior Fossa: Unremarkable Right Femur: Unremarkable Left Femur: Unremarkable Right Tib/Fib: Unremarkable Left Tib/Fib: Unremarkable Right Rad/Ulnar: Unremarkable Left Rad/Ulnar: Unremarkable Right Humerus: Unremarkable Left Humerus: Unremarkable Nose/Lips: Unremarkable Profile: Unremarkable Orbits: Unremarkable IMPRESSION: 1. Single, live intrauterine gestation 20 weeks, 5 days by LMP. Today's ultrasound measurements correlate with a gestational age of 20 weeks 6 days. Estimated weight is 383 grams, +/- 57 grams ( 0 lb 14 oz) which correlates to 54 %. TRACI by today's ultrasound is 07/09/2025. 2. Unremarkable ultrasound of the anatomy. Interpreted by: Electronically signed by FINA WRIGHT II, MD, PHD at 26-Feb-2025 07:25:53 AM [facility] Normal Not Available Comment on above: Order Comment: US OB ANATOMY SINGLE W US OB CERVICAL LENGTH Estimated Date of Delivery: 07/10/25 Gestational Age as of 01/29/2025: 16w6d Urinalysis macro (dipstick) panel (U)on 02-25-2025 Bilirubin, UA Negative Negative - 4(70) +++ mg/dL [facility] Blood, UA Negative Negative - 50 Blayne/mcL [facility] Clarity, UA Clear [facility] Color, UA Yellow [facility] Glucose, UA Negative Negative - 2000(110) ++++ mg/dL [facility] Interpretation and review of laboratory results Normal [facility] Healthca re Ketones, UA Positive Negative - 160(16) ++++ mg/dL [facility] Leukocytes, UA Negative Negative - 500+++ Jo/mcL [facility] Nitrite, UA Negative Negative - Positive [facility] pH, UA 6.5 5 - 9 [facility] [employer] e Protein, UA Negative Negative - 1999(20) ++++ mg/dL [facility] Spec Grav, UA 1.205 1 - 1.03 [facility] Urobilinogen, UA 1.0 0.2 - 12 mg/dL [facility] IGP,APTIMA HPV,AGE GDLNon AGE GDLN ACOG TESTING Note . [facility] Comment on above: TESTS RESULT FLAG UN [facility] REF RANGE LAB Clinician Provided Cytology Information Source.............Cervix No. of containers..01 ThinPrep Vial Age Algo ACOG Audra... FLAG LEGEND: L-Low Normal,H-High Normal,LL-Alert Low,HH-Alert High <-Panic Low,>-Panic High,A-Abnormal,AA-Critical Abnormal Performed at: 01 =[facility] [address] [address] Meseret Eden MD, IGP, RFX APTIMA HPV ASCU Note . [facility] Comment on above: TESTS RESULT FLAG UN ITS REF RANGE LAB DIAGNOSIS: 02 NEGATIVE FOR INTRAEPITHELIAL LESION OR MALIGNANCY. FUNGAL ORGANISMS MORPHOLOGICALLY CONSISTENT WITH POLY SPECIES ARE PRESENT. THIS SPECIMEN WAS RESCREENED PART OF OUR BLOOMING MILL SUPERVISOR PROGRAM. Specimen adequacy: 02 Satisfactory for evaluation. No endocervical component is identified. Performed by: 02 Barbie Ceja, Recovery Engineer ([facility]) QC reviewed by: 02 Rhea Hofmfann, Recovery Engineer ([facility]) . 02 Note: Note 02 The Pap smear is a screening test designed to aid in the detection of premalignant and malignant conditions of the uterine cervix. It is not a diagnostic procedure and should not be used as the sole means of detecting cervical cancer. Both false-positive and false-negative reports do occur. Test Methodology: Note 02 This liquid based ThinPrep(R) pap test was screened with the use of an image guided system. . 02 The HPV DNA reflex criteria were not met with this specimen result therefore, no HPV testing was performed. FLAG LEGEND: L-Low Normal,H-High Normal,LL-Alert Low,HH-Alert High <-Panic Low,>-Panic High,A-Abnormal,AA-Critical Abnormal Performed at: [address] [place] [address] Meseret Eden MD, Performed at: = - [facility] [address] [id number] Senior Project Architect: Meseret Eden MD, Phone: [phone] Performed at: [facility] [address] [id number] Senior Project Architect: Meseret Eden MD, Phone: [phone] [facility] RECURRENT VAGINITIS (HTRX)on 01-30-2025 ATOPOBIUM VAGINAE 26.856 Abnormal [facility] ATOPOBIUM VAGINAE Detected Abnormal [facility] BVAB 2,3 (BACTERIAL VAGINOSIS ASSOCIATED BACTERIA 2, 3); MOBILUNCUS SPP 25.681 Abnormal [facility] BVAB 2,3 (BACTERIAL VAGINOSIS ASSOCIATED BACTERIA 2, 3); MOBILUNCUS SPP Detected Abnormal [facility] POLY ALBICANS, PARAPSILOSIS, TROPICALIS 0 [facility] POLY ALBICANS, PARAPSILOSIS, TROPICALIS Not detected [facility] POLY GLABRATA 0 [facility] POLY GLABRATA Not detected [facility] POLY KRUSEI 0 [facility] Healt hcare POLY KRUSEI Not detected [facility] CHLAMYDIA TRACHOMATIS 0 [facility] CHLAMYDIA TRACHOMATIS Not detected [facility] ERMB, C; MEFA 18.156 Abnormal [facility] Health care ERMB, C; MEFA Detected Abnormal [facility] care GARDNERELLA VAGINALIS 24.184 Abnormal [facility] GARDNERELLA VAGINALIS Detected Abnormal [facility] Interpretation and review of laboratory results Abnormal [facility] Healthca re MEGASPHAERA (TYPES 1, 2) 0 [facility] MEGASPHAERA (TYPES 1, 2) Not detected [facility] MYCOPLASMA GENITALIUM 0 [facility] MYCOPLASMA GENITALIUM Not detected [facility] NEISSERIA GONORRHOEAE 0 [facility] NEISSERIA GONORRHOEAE Not detected [facility] TET B, TET M 19.057 Abnormal [facility] Healthc are TET B, TET M Detected Abnormal [facility] Healthc are TRICHOMONAS VAGINALIS 0 [facility] TRICHOMONAS VAGINALIS Not detected [facility] BOX TESTon 12-07-2024 BOX TEST SENT OUT [facility] BOX1 UNITY [facility] Healthcar e BOX2 12/07/2024 [facility] Healthcar e UNITY BOX [facility] Healthcar e HCG ( test) Ql (U)o n 12-06-2024 Interpretation and review of laboratory results Abnormal [facility] Healthca re Preg Test, Ur Positive Negative [facility] Health care [facility] US OB TRANSVAGINALon 025 US OB TRANSVAGINAL EXAM: US OB TRANSVAGINAL HISTORY: Dating. Beta [...] II, MD, PHD at 09-Dec-2024 08:55:08 PM [facility] Normal Not Available Comment on above: Order Comment: US OB TRANSVAGINAL No LMP recorded. Urinalysis macro (dipstick) panel (U)on 12-06-2024 Bilirubin, UA Negative Negative - 4(70) +++ mg/dL [facility] Blood, UA Positive Negative - 50 Blayne/mcL [facility] Comment on above: trace-intact Clarity, UA Clear [facility] Healthmi re Color, UA Yellow [facility] Healthcar e Glucose, UA Negative Negative - 1999(110) ++++ mg/dL [facility] Interpretation and review of laboratory results Abnormal [facility] Healthca re Ketones, UA Negative Negative - 160(16) ++++ mg/dL [facility] Leukocytes, UA Trace Negative - 500+++ Jo/mcL [facility] Nitrite, UA Negative Negative - Positive [facility] pH, UA 6 5 - [address] [facility] e Protein, UA Negative Negative - 1999(20) ++++ mg/dL [facility] Spec Grav, UA 1.02 1 - 1.03 [facility] Urobilinogen, UA 0.2 0.2 - 12 mg/dL [facility] Healthcar e TBH PREG QUANT HCGon 11-02- 025 HCG QUANTITATIVE 494 mIU/mL [facility] Comment on above: 5-50 0.2-1 WEEK 50-500 1-2 WEEKS 100-5,000 2-3 WEEKS 500-10,000 3-4 WEEKS 1,000-50,000 4-5 WEEKS 10,000-100,000 5-6 WEEKS 15,000-200,000 6-8 WEEKS 10,000-100,000 2-3 [facility] CBC WITH AUTO DIFFon BASOPHILS ABSOLUTE AUTO 0.1 [facility] Basophils/100 WBC (Bld) 0.7 % 0.2 - 2.0 % [facility] Eosinophils/100 WBC (Bld) 4.9 % 0.9 - 7.0 % [facility] Erythrocyte distribution width (RBC) [Ratio] 11.8 % 11.0 - 15.0 % [facility] Hematocrit (Bld) [Volume fraction] 44.7 % 36.0 - 48.0 % [facility] Hemoglobin (Bld) [Mass/Vol] 15.7 g/dL 12.0 - 16.0 g/dL [facility] IMMATURE GRANULOCYTES ABS AUTO 0.02 [facility] Immature granulocytes/100 WBC (Bld) 0.3 % 0.0 - 0.5 % [facility] LYMPHOCYTES ABSOLUTE AUTO 3.1 [facility] Lymphocytes/100 WBC (Bld) 42 % 20.5 - 60.0 % [facility] MCH (RBC) [Entitic mass] 29.5 pg 26.7 - 34.0 pg [facility] MCHC (RBC) [Mass/Vol] 35.1 g/dL 29.9 - 35.2 g/dL [facility] MCV (RBC) [Entitic vol] 84 fL 81.0 - 99.0 fL [facility] MONOCYTES ABSOLUTE AUTO 0.5 [facility] Monocytes/100 WBC (Bld) 7.3 % 1.7 - 12.0 % [facility] NEUTROPHILS ABSOLUTE AUTO 3.3 [facility] Neutrophils/100 WBC (Bld) 44.8 % 43.0 - 75.0 % [facility] Platelet mean volume (Bld) [Entitic vol] 11.7 fL 9.5 - 13.5 fL [facility] TBH EO # 0.4 [facility] PLT 180 [facility] RBC 5.32 [facility] WBC 7.3 [facility] HCG ( test) Ql (U)o n 10-03-2023 Beta HCG ( test) Ql (U) Negative Normal NEG [facility] Comment on above: Performed By: #### 2 106-3 #### [facility] ([id number]) [address] [facility], [place] [address] Surgical Pathologyon 024 Surgical Pathology Normal [facility] Comment on above: Result Comment: [facility] [address] [place] [address] Surgical Pathology Consultation Patient Name:KEMI PIPER:2005 (Age: 18)Gender:FTaken:4Reported:10/06/2023hysician(s):Louise Gama MD ([phone])Copy To: Rec. #:[id number]: #[id number] Final Pathologic Diagnosis Gallbladder, cholecystectomy: - Chronic cholecystitis and cholesterolosis. - Benign reactive lymph node. Report Electronically Signed Out eak/10/06/2023Serena Quintanilla MD Interpretation performed at [facility], [address] [place] [address], License number: [id number]. Clinical History Biliary colic. Gross Description Received [...] duct margin, bisected lymph node and a aircraft sales representative section of the gallbladder neck are submitted in cassette A with additional sections from the gallbladder are submitted in cassette B (to include polypoid like projection). (2, ss, [id number], A???B, m2) [facility]/10/04/2023EAK Specimen(s) Received Gallbladder Fee Codes(s): 1; 22816 BASIC METABOLIC PANLon 09-28 Anion gap [Moles/Vol] 7 mmol/L Normal 5-15 [facility] Comment on above: Performed By: #### C BCA BMP, LIVR #### [facility] ([id number]) [address] [facility] [place] [address] Calcium [Mass/Vol] 9.0 mg/dL Normal 8.5-10.5 [facility] Comment on above: Performed By: #### C BCA BMP, LIVR #### [facility] ([id number]) [address] [address] [place] [address] Chloride [Moles/Vol] 109 mmol/L Normal 98-109 [facility] Comment on above: Performed By: #### C BCA, BMP, LIVR #### [facility] ([id number]) [address] [place] [address] CO2 [Moles/Vol] 27 mmol/L Normal 22-32 [facility] Comment on above: Performed By: #### C BCA, BMP, LIVR #### [facility] ([id number]) [address] [facility] [place] [address] Creatinine [Mass/Vol] 0.98 mg/dL Normal 0.40-1.00 [facility] Comment on above: Result Comment: METH OD TRACEABLE TO IDMS STANDARD Performed By: #### C BCA, BMP, LIVR #### [facility] ([id number]) [address], [address] [place] [address] GFR/1.73 sq M.predicted among non-blacks MDRD (S/P/Bld) [Vol rate/Area] 85 mL/min/{1.73_m2} Normal >59 [facility] Comment on above: Result Comment: Reported eGFR is based on the CKD-EPI 2020 equation that does not use a race coefficient. Performed By: #### C BCA, BMP, LIVR #### [facility] ([id number]) [address] [place] [address] Glucose [Mass/Vol] 82 mg/dL Normal 65-99 [facility] Comment on above: Performed By: #### C BCA, BMP, LIVR #### [facility] ([id number]) [address], [address] [place] [address] Potassium [Moles/Vol] 4.0 mmol/L Normal 3.5-5.0 [facility] Comment on above: Performed By: #### C BCA, BMP, LIVR #### [facility] ([id number]) [address], [address] [place] [address] Sodium [Moles/Vol] 143 mmol/L Normal 134-146 [facility] Comment on above: Performed By: #### C BCA, BMP, LIVR #### [facility] ([id number]) [address] [place] [address] Urea nitrogen [Mass/Vol] 7 mg/dL Normal 5-23 [facility] Comment on above: Performed By: #### C BCA, BMP, LIVR #### [facility] ([id number]) [address], [address] [place] [address] Basic Metabolic Panelon -2 Anion gap [Moles/Vol] 7 mmol/L 5 - 15 mmol/L [facility] Calcium [Mass/Vol] 9.0 mg/dL 8.5 - 10. 5 mg/dL [facility] Chloride [Moles/Vol] 109 mmol/L 98 - 109 mmol/L [facility] CO2 [Moles/Vol] 27 mmol/L 22 - 32 mmol/L [facility] Creatinine [Mass/Vol] 0.98 mg/dL 0.40 - 1.00 mg/dL [facility] Comment on above: METHOD TRACEABLE TO [facility] STANDARD eGFR (CKD-EPI)non-race dependent 85 - PINF [facility] Comment on above: Reported eGFR is based on the CKD-EPI 2020 equation that does not use a race coefficient. Glucose [Mass/Vol] 82 mg/dL 65 - 99 mg/dL [facility] Potassium [Moles/Vol] 4.0 mmol/L 3.5 - 5.0 mmol/L [facility] Sodium [Moles/Vol] 143 mmol/L 134 - 146 mmol/L [facility] Urea nitrogen [Mass/Vol] 7 mg/dL 5 - 23 mg/dL [facility] CBC AND AUTO DIFFon 09-28-19 ABSOLUTE BASOPHIL 0.0 X10E9/L Normal 0.0-0.2 [facility] Comment on above: Performed By: #### C BCA, BMP, LIVR #### [facility] ([id number]) [address], [address] [place] [address] ABSOLUTE NEUTROPHIL 2.8 X10E9/L Normal 1.5-6.6 [facility] Comment on above: Performed By: #### C BCA, BMP, LIVR #### [facility] ([id number]) [address], [address] [place] [address] Basophils/100 WBC (Bld) 0.6 % Normal [facility] Comment on above: Performed By: #### C BCA, BMP, LIVR #### [facility] ([id number]) [address], [address] [place] [address] Eosinophils (Bld) [#/Vol] 0.2 10*3/uL Normal 0.0-0.4 [facility] Comment on above: Performed By: #### C DEANGELO DING, LIVR #### [facility] ([id number]) [address], [address] [place] [address] Eosinophils/100 WBC (Bld) 2.8 % Normal [facility] Comment on above: Performed By: #### C TIMUR BMP, LIVR #### [facility] ([id number]) [address] [address] [place] [address] Erythrocyte distribution width (RBC) [Ratio] 12.2 % Normal 11.5-15.0 [facility] Comment on above: Performed By: #### C TIMUR BMP, LIVR #### [facility] ([id number]) [address], [facility] [address] [place] [address] Hematocrit (Bld) [Volume fraction] 39.7 % Normal 35-47 [facility] Comment on above: Performed By: #### C DEANGELO DING, LIVR #### [facility] ([id number]) [address], [address] [place] [address] Hemoglobin (Bld) [Mass/Vol] 13.6 g/dL Normal 11.7-15.5 [facility] Comment on above: Performed By: #### C TIMUR BMP, LIVR #### [facility] ([id number]) [address], [address] [place] [address] Lymphocytes (Bld) [#/Vol] 2.2 10*3/uL Normal 1.0-3.5 [facility] Comment on above: Performed By: #### C TIMUR, BMP, LIVR #### [facility] ([id number]) [address], [address] [place] [address] Lymphocytes/100 WBC (Bld) 38.4 % Normal [facility] Comment on above: Performed By: #### C BCA, BMP, LIVR #### [facility] ([id number]) [address], [address] [place] [address] MCH (RBC) [Entitic mass] 29.6 pg Normal 27-34 [facility] Comment on above: Performed By: #### C BCA, BMP, LIVR #### [facility] ([id number]) [address], [address] [place] [address] MCHC (RBC) [Mass/Vol] 34.3 g/dL Normal 32-36 [facility] Comment on above: Performed By: #### C BCA, BMP, LIVR #### [facility] ([id number]) [address], [address] [place] [address] MCV (RBC) [Entitic vol] 87 fL Normal 80-100 [facility] Comment on above: Performed By: #### C BCA, BMP, LIVR #### [facility] ([id number]) [address], [facility] [address] [place] [address] Monocytes (Bld) [#/Vol] 0.5 10*3/uL Normal 0-0.9 [facility] Comment on above: Performed By: #### C BCA, BMP, LIVR #### [facility] ([id number]) [address], [address] [place] [address] Monocytes/100 WBC (Bld) 9.2 % Normal [facility] Comment on above: Performed By: #### C BCA, BMP, LIVR #### [facility] ([id number]) [address] [address] [place] [address] Neutrophils/100 WBC (Bld) 49.0 % Normal [facility] Comment on above: Performed By: #### C BCA, BMP, LIVR #### [facility] ([id number]) [address], [address] [place] [address] Platelet mean volume (Bld) [Entitic vol] 10.8 fL Normal 7-12 [facility] Comment on above: Performed By: #### DEANGELO Pruett BCA, LIVR #### [facility] ([id number]) [address], [address] [place] [address] Platelets (Bld) [#/Vol] 212 10*3/uL Normal 150-450 [facility] Comment on above: Performed By: #### DEANGELO Pruett BCA, LIVR #### [facility] ([id number]) [address], [address] [place] [address] RBC COUNT 4.60 X10E12/L Normal 3.80-5.20 [facility] Comment on above: Performed By: #### DEANGELO Pruett BCA, LIVR #### [facility] ([id number]) [address], [address] [place] [address] WBC (Bld) [#/Vol] 5.7 10*3/uL Normal 4.0-11.0 [facility] Comment on above: Performed By: #### DEANGELO Pruett BCA, LIVR #### [facility] ([id number]) [address], [address] [place] [address] CBC auto differentialon 09-09 Basophils (Bld) [#/Vol] 0.0 10*3/uL [facility] Basophils/100 WBC (Bld) 0.6 % [facility] Eosinophils (Bld) [#/Vol] 0.2 10*3/uL [facility] Eosinophils/100 WBC (Bld) 2.8 % [facility] Erythrocyte distribution width (RBC) [Ratio] 12.2 % 11.5 - 15.0 % [facility] Hematocrit (Bld) [Volume fraction] 39.7 % 35 - 47 % [facility] Hemoglobin (Bld) [Mass/Vol] 13.6 g/dL 11.7 - 15.5 g/dL [facility] Lymphocytes (Bld) [#/Vol] 2.2 10*3/uL [facility] Lymphocytes/100 WBC (Bld) 38.4 % [facility] MCH (RBC) [Entitic mass] 29.6 pg 27 - 34 pg [facility] MCHC (RBC) [Mass/Vol] 34.3 g/dL 32 - 36 g/dL [facility] MCV (RBC) [Entitic vol] 87 fL 80 - 100 fL [facility] Monocytes (Bld) [#/Vol] 0.5 10*3/uL [facility] Monocytes/100 WBC (Bld) 9.2 % [facility] Neutrophils (Bld) [#/Vol] 2.8 10*3/uL [facility] Neutrophils/100 WBC (Bld) 49.0 % [facility] Platelet mean volume (Bld) [Entitic vol] 10.8 fL 7 - 12 fL [facility] Platelets (Bld) [#/Vol] 212 10*3/uL [facility] RBC (Bld) [#/Vol] 4.60 10*6/uL [facility] WBC corrected for nucl RBC Auto (Bld) [#/Vol] 5.7 [facility] ECG 12 leadon 09-28-[address] [facility] LIVER PANELon 09-28-2023 Albumin [Mass/Vol] 4.4 g/dL Normal 3.2-5.3 [facility] Comment on above: Performed By: #### C DEANGELO DING, LIVR #### [facility] ([id number]) [address], [address] [place] [address] ALP [Catalytic activity/Vol] 65 U/L Normal 39-130 [facility] Comment on above: Performed By: #### C TIMUR BMP, LIVR #### [facility] ([id number]) [address] [place] [address] ALT [Catalytic activity/Vol] 18 U/L Normal 0-31 [facility] Comment on above: Performed By: #### C BCA, BMP, LIVR #### [facility] ([id number]) [address], [address] [place] [address] AST [Catalytic activity/Vol] 16 U/L Normal 0-41 [facility] Comment on above: Performed By: #### C BCA, BMP, LIVR #### [facility] ([id number]) [address], [address] [address] Bilirubin [Mass/Vol] 0.5 mg/dL Normal 0.3-1.2 [facility] Comment on above: Performed By: #### C TIMUR BMP, LIVR #### [facility] ([id number]) [address], [address] [place] [address] Bilirubin.direct [Mass/Vol] 0.2 mg/dL Normal 0.0-0.4 [facility] Comment on above: Performed By: #### Seble DIGN, BMP, LIVR #### [facility] ([id number]) [address], [facility] [address] [place] [address] Protein [Mass/Vol] 6.6 g/dL Normal 6.0-8.0 [facility] Comment on above: Performed By: #### Seble DING, BMP, LIVR #### [facility] ([id number]) [address], [address] [address] Liver panelon 09-28-2023 Albumin [Mass/Vol] 4.4 g/dL 3.2 - 5.3 g/dL [facility] ALP [Catalytic activity/Vol] 65 U/L 39 - 130 U/L [facility] ALT No additional P-5'-P [Catalytic activity/Vol] 18 U/L 0 - 31 U/L [facility] AST [Catalytic activity/Vol] 16 U/L 0 - 41 U/L [facility] Bilirubin [Mass/Vol] 0.5 mg/dL 0.3 - 1.2 mg/dL [facility] Bilirubin.direct [Mass/Vol] 0.2 mg/dL 0.0 - 0.4 mg/dL [facility] Protein [Mass/Vol] 6.6 g/dL 6.0 - 8.0 g/dL [facility] No Panel Informationon 09-28 [employer] XR Chest PA and Lateralon Umesh Bolaños MD - 09/28/2023 Procedure: Chest x-ray performed Number of views:2 History:Preop asthma Comparison:None Findings: The heart and lungs show no acute findings, and the mediastinum and manasa are grossly negative . Impression: 1. No acute change. 5 Finalized by Umesh Bolaños MD on 09/28/2023 10:05 AM [facility] Rad[facility] Study observation (narrative) [facility] Chest PA and LateralOrder ed By: Umesh Bolaños on 09-28-2023 [facility] Work Phone: Basic Metab w/rfx MGon 08-31 Anion gap [Moles/Vol] 8 mmol/L Low 9-17 [facility] Comment on above: Performed By: #### B MPX, CDP #### [facility] [address] [place] [id number] Senior Project Architect: Quirino Valladares MD Calcium [Mass/Vol] 8.3 mg/dL Low 8.6-10.4 [facility] Comment on above: Performed By: #### B MPX, CDP #### [facility] [address] [place], [place] [id number] Senior Project Architect: Quirino Valladares MD Chloride [Moles/Vol] 107 mmol/L Normal 98-107 [facility] Comment on above: Performed By: #### B MPX, CDP #### [employer] [facility] [place], [place] [id number] Senior Project Architect: Quirino Valladares MD CO2 [Moles/Vol] 24 mmol/L Normal 20-31 [facility] Comment on above: Performed By: #### B MPX, CDP #### [facility] [address] [place] [phone] Senior Project Architect: Quirino Valladares MD Creatinine [Mass/Vol] 0.9 mg/dL Normal 0.5-0.9 [facility] Comment on above: Performed By: #### B MPX, CDP #### [address] [address] Senior Project Architect: Quirino Valladares MD GFR/1.73 sq M.predicted among non-blacks MDRD (S/P/Bld) [Vol rate/Area] mL/min/{1.73_m2} Normal >60 [facility] Comment on above: Result Comment: [...] Performed By: #### B MPX, CDP #### [address] [address] Senior Project Architect: Quirino Valladares MD Glucose [Mass/Vol] 88 mg/dL Normal 70-99 [facility] Comment on above: Performed By: #### B MPX, CDP #### [facility] [address] [place] [address] Senior Project Architect: Quirino Valladares MD Potassium [Moles/Vol] 3.6 mmol/L Low 3.7-5.3 [facility] Comment on above: Performed By: #### B MPX, CDP #### [facility] [address] [place] [address] Senior Project Architect: Quirino Valladares MD Sodium [Moles/Vol] 139 mmol/L Normal 135-144 [facility] Comment on above: Performed By: #### B MPX, CDP #### [address] [address] Senior Project Architect: Quirino Valladares MD Urea nitrogen [Mass/Vol] 9 mg/dL Normal 6-20 [facility] Comment on above: Performed By: #### B MPX, CDP #### [place] [address] Senior Project Architect: Quirino Valladares MD CBC with Diffon 08-31-2023 Abs. Basophil 0.04 k/uL Normal 0.00-0.20 [facility] Comment on above: Performed By: #### B MPX, CDP #### [place] [address] Senior Project Architect: Quirino Valladares MD Abs.Imm.Granulocyte <0.03 Normal 0.00-0.30 [facility] Comment on above: Performed By: #### B MPX, CDP #### [address] [address] Senior Project Architect: Quirino Valladares MD Abs.Neutrophil (Seg) 2.46 k/uL Normal 1.80-8.00 [facility] Comment on above: Performed By: #### B MPX, CDP #### [address] [address] Senior Project Architect: Quirino Valladares MD Basophils/100 WBC (Bld) 1 % Normal 0-2 [facility] Comment on above: Performed By: #### B MPX, CDP #### [address] [address] Senior Project Architect: Quirino Valladares MD Eosinophils (Bld) [#/Vol] 0.11 10*3/uL Normal 0.00-0.44 [facility] Comment on above: Performed By: #### B MPX, CDP #### [facility] [address] [place] [address] Senior Project Architect: Quirino Valladares MD Eosinophils/100 WBC (Bld) 2 % Normal 1-4 [facility] Comment on above: Performed By: #### B MPX, CDP #### [facility] [address] [place] [address] Senior Project Architect: Quirino Valladares MD Erythrocyte distribution width (RBC) [Ratio] 11.9 % Normal 11.8-14.4 [facility] Comment on above: Performed By: #### B MPX, CDP #### [facility] [address] [place] [address] Senior Project Architect: Quirino Valladares MD Hematocrit (Bld) [Volume fraction] 36.8 % Normal 36.3-47.1 [facility] Comment on above: Performed By: #### B MPX, CDP #### [address] [address] Senior Project Architect: Quirino Valladares MD Hemoglobin (Bld) [Mass/Vol] 12.6 g/dL Normal 11.9-15.1 [facility] Comment on above: Performed By: #### B MPX, CDP #### [facility] [address] [place] [address] Senior Project Architect: Quirino Valladares MD Immature granulocytes/100 WBC (Bld) 0 % Normal 0 [facility] Comment on above: Performed By: #### B MPX, CDP #### [facility] [address] [place] [address] Senior Project Architect: Quirino Valladares MD Lymphocytes (Bld) [#/Vol] 2.61 10*3/uL Normal 1.20-5.20 [facility] Comment on above: Performed By: #### B MPX, CDP #### [address] [address] Senior Project Architect: Quirino Valladares MD Lymphocytes/100 WBC (Bld) 45 % Normal 25-45 [facility] Comment on above: Performed By: #### B MPX, CDP #### [address] [address] Senior Project Architect: Quirino Valladares MD MCH (RBC) [Entitic mass] 29.6 pg Normal 25.2-33.5 [facility] Comment on above: Performed By: #### B MPX, CDP #### [address] [address] Senior Project Architect: Quirino Valladares MD MCHC (RBC) [Mass/Vol] 34.2 g/dL Normal 28.4-34.8 [facility] Comment on above: Performed By: #### B MPX, CDP #### [address] [address] Senior Project Architect: Quirino Valladares MD MCV (RBC) [Entitic vol] 86.4 fL Normal 82.6-102.9 [facility] Comment on above: Performed By: #### B MPX, CDP #### [address] [address] Senior Project Architect: Quirino Valladares MD Monocytes (Bld) [#/Vol] 0.52 10*3/uL Normal 0.10-1.40 [facility] Comment on above: Performed By: #### B MPX, CDP #### [address] [address] Senior Project Architect: Quirino Valladares MD Monocytes/100 WBC (Bld) 9 % High 2-8 [facility] Comment on above: Performed By: #### B MPX, CDP #### [address] [address] Senior Project Architect: Quirino Valladares MD Neutrophil (Seg) 43 % Normal 34-64 [facility] Comment on above: Performed By: #### B MPX, CDP #### [facility] [address] [place] [address] Senior Project Architect: Quirino Valladares MD NRBC Automated 0.0 per 100 WBC Normal 0.0 [facility] Comment on above: Performed By: #### B MPX, CDP #### [address] [address] Senior Project Architect: Quirino Valladares MD Platelet mean volume (Bld) [Entitic vol] 12.3 fL Normal 8.1-13.5 [facility] Comment on above: Performed By: #### B MPX, CDP #### [address] [address] Senior Project Architect: Quirino Valladares MD Platelets (Bld) [#/Vol] 210 10*3/uL Normal 138-453 [facility] Comment on above: Performed By: #### B MPX, CDP #### [address] [address] Senior Project Architect: Quirino Valladares MD RBC (Bld) [#/Vol] 4.26 10*6/uL Normal 3.95-5.11 [facility] Comment on above: Performed By: #### B MPX, CDP #### [address] [address] Senior Project Architect: Quirino Valladares MD WBC (Bld) [#/Vol] 5.8 10*3/uL Normal 4.5-13.5 [facility] Comment on above: Performed By: #### B MPX, CDP #### [address] [address] Senior Project Architect: Quirino Valladares MD Basic Metab w/rfx MGon 08-30 Potassium [Moles/Vol] 3.5 mmol/L Low 3.7-5.3 [facility] Comment on above: Performed By: #### C DP, BMPX, MG #### [employer] [address] [place] [address] Senior Project Architect: Quirino Valladares MD Anion gap [Moles/Vol] 8 mmol/L Low 9-17 [facility] Comment on above: Performed By: #### C DP, BMPX, MG #### [facility] [address] [place] [address] Senior Project Architect: Quirino Valladares MD Calcium [Mass/Vol] 8.8 mg/dL Normal 8.6-10.4 [facility] Comment on above: Performed By: #### C DP, BMPX, MG #### [facility] [address] [place] [address] Senior Project Architect: Quirino Valladares MD Chloride [Moles/Vol] 105 mmol/L Normal 98-107 [facility] Comment on above: Performed By: #### C DP, BMPX, MG #### [facility] [address] [place] [address] Senior Project Architect: Quirino Valladares MD CO2 [Moles/Vol] 23 mmol/L Normal 20-31 [facility] Comment on above: Performed By: #### C DP, BMPX, MG #### [employer] [facility] [place] [address] Senior Project Architect: Quirino Valladares MD Creatinine [Mass/Vol] 0.8 mg/dL Normal 0.5-0.9 [facility] Comment on above: Performed By: #### C DP, BMPX, MG #### [employer] [address] [place] [address] Senior Project Architect: Quirino Valladares MD GFR/1.73 sq M.predicted among non-blacks MDRD (S/P/Bld) [Vol rate/Area] mL/min/{1.73_m2} Normal >60 [facility] Comment on above: Result Comment: [...] C DP, BMPX, MG #### [facility] [employer] [address] [place] [address] Senior Project Architect: Quirino Valladares MD Glucose [Mass/Vol] 73 mg/dL Normal 70-99 [facility] Comment on above: Performed By: #### C DP, BMPX, MG #### [facility] [employer] [address] [place] [address] Senior Project Architect: Quirino Valladares MD Sodium [Moles/Vol] 136 mmol/L Normal 135-144 [facility] Comment on above: Performed By: #### C DP, BMPX, MG #### [facility] [address] [place] [address] Senior Project Architect: Quirino Valladares MD Urea nitrogen [Mass/Vol] 7 mg/dL Normal 6-20 [facility] Comment on above: Performed By: #### C DP, BMPX, MG #### [facility] [address] [place] [address] Senior Project Architect: Quirino Valladares MD CBC with Diffon 08-30-2023 Abs. Basophil 0.03 k/uL Normal 0.00-0.20 [facility] Comment on above: Performed By: #### C DP, BMPX, MG #### [facility] [employer] [address] [place] [address] Senior Project Architect: Quirino Valladares MD Abs.Imm.Granulocyte <0.03 Normal 0.00-0.30 [facility] Comment on above: Performed By: #### C DP, BMPX, MG #### [facility] [employer] [address] [place] [address] Senior Project Architect: Quirino Valladares MD Abs.Neutrophil (Seg) 2.17 k/uL Normal 1.80-8.00 [facility] Comment on above: Performed By: #### C DP, BMPX, MG #### [address] [address] Senior Project Architect: Quirino Valladares MD Basophils/100 WBC (Bld) 1 % Normal 0-2 [facility] Comment on above: Performed By: #### C DP, BMPX, MG #### [address] [address] Senior Project Architect: Quirino Valladares MD Eosinophils (Bld) [#/Vol] 0.08 10*3/uL Normal 0.00-0.44 [facility] Comment on above: Performed By: #### C DP, BMPX, MG #### [facility] [employer] [address] [place] [address] Senior Project Architect: Quirino Valladares MD Eosinophils/100 WBC (Bld) 2 % Normal 1-4 [facility] Comment on above: Performed By: #### C DP, BMPX, MG #### [facility] [employer] [address] [place] [address] Senior Project Architect: Quirino Valladares MD Erythrocyte distribution width (RBC) [Ratio] 11.9 % Normal 11.8-14.4 [facility] Comment on above: Performed By: #### C DP, BMPX, MG #### [facility] [employer] [address] [place] [address] Senior Project Architect: Quirino Valladares MD Hematocrit (Bld) [Volume fraction] 40.0 % Normal 36.3-47.1 [facility] Comment on above: Performed By: #### C DP, BMPX, MG #### [facility] [employer] [address] [place] [address] Senior Project Architect: Quirino Valladares MD Hemoglobin (Bld) [Mass/Vol] 13.6 g/dL Normal 11.9-15.1 [facility] Comment on above: Performed By: #### C DP, BMPX, MG #### [facility] [address] [place] [address] Senior Project Architect: Quirino Valladares MD Immature granulocytes/100 WBC (Bld) 0 % Normal 0 [facility] Comment on above: Performed By: #### C DP, BMPX, MG #### [address] [address] Senior Project Architect: Quirino Valladares MD Lymphocytes (Bld) [#/Vol] 1.69 10*3/uL Normal 1.20-5.20 [facility] Comment on above: Performed By: #### C DP, BMPX, MG #### [facility] [address] [place] [address] Senior Project Architect: Quirino Valladares MD Lymphocytes/100 WBC (Bld) 38 % Normal 25-45 [facility] Comment on above: Performed By: #### C DP, BMPX, MG #### [facility] [employer] [address] [place] [address] Senior Project Architect: Quirino Valladares MD MCH (RBC) [Entitic mass] 29.6 pg Normal 25.2-33.5 [facility] Comment on above: Performed By: #### C DP, BMPX, MG #### [facility] [employer] [address] [place] [address] Senior Project Architect: Quirino Valaldares MD MCHC (RBC) [Mass/Vol] 34.0 g/dL Normal 28.4-34.8 [facility] Comment on above: Performed By: #### C DP, BMPX, MG #### [address] [address] Senior Project Architect: Quirino Valladares MD MCV (RBC) [Entitic vol] 87.0 fL Normal 82.6-102.9 [facility] Comment on above: Performed By: #### C DP, BMPX, MG #### [address] [address] Senior Project Architect: Quirino Valladares MD Monocytes (Bld) [#/Vol] 0.47 10*3/uL Normal 0.10-1.40 [facility] Comment on above: Performed By: #### C DP, BMPX, MG #### [place] [address] Senior Project Architect: Quirino Valladares MD Monocytes/100 WBC (Bld) 11 % High 2-8 [facility] Comment on above: Performed By: #### C DP, BMPX, MG #### [address] [address] Senior Project Architect: Quirino Valladares MD Neutrophil (Seg) 48 % Normal 34-64 [facility] Comment on above: Performed By: #### C DP, BMPX, MG #### [address] [address] Senior Project Architect: Quirino Valladares MD NRBC Automated 0.0 per 100 WBC Normal 0.0 [facility] Comment on above: Performed By: #### C DP, BMPX, MG #### [facility] [employer] [address] [place] [address] Senior Project Architect: Quirino Valladares MD Platelet mean volume (Bld) [Entitic vol] 11.8 fL Normal 8.1-13.5 [facility] Comment on above: Performed By: #### C DP, BMPX, MG #### [facility] [place] [address] Senior Project Architect: Quirino Valladares MD Platelets (Bld) [#/Vol] 214 10*3/uL Normal 138-453 [facility] Comment on above: Performed By: #### C DP, BMPX, MG #### [facility] [address] [place] [address] Senior Project Architect: Quirino Valladares MD RBC (Bld) [#/Vol] 4.60 10*6/uL Normal 3.95-5.11 [facility] Comment on above: Performed By: #### C DP, BMPX, MG #### [facility] [employer] [address] [place] [address] Senior Project Architect: Quirino Valladares MD WBC (Bld) [#/Vol] 4.4 10*3/uL Low 4.5-13.5 [facility] Comment on above: Performed By: #### C DP, BMPX, MG #### [facility] [employer] [address] [place] [address] Senior Project Architect: Quirino Valladares MD Lamotrigineon 08-30-2023 Lamotrigine <1.0 Low 3.0-15.0 [facility] Comment on above: Result Comment: Neither [...] needed. Performed By: #### L MELBA #### [address] [address] Senior Project Architect: Quirino Valladares MD Magnesiumon 08-30-2023 Magnesium [Mass/Vol] 2.0 mg/dL Normal 1.6-2.6 [facility] Comment on above: Performed By: #### C DP, BMPX, MG #### [facility] [address] [place] [address] Senior Project Architect: Quirino Valladares MD RAD - Ultrasound Reporton RAD - Ultrasound Report [id number] Normal [facility] Physician Referralon 023 Physician Referral [id number] Normal [facility] CBC W MANUAL DIFFon 01-05-20 23 ANISOCYTOSIS SLIGHT Normal [facility] Comment on above: Performed By: #### C OSORIO #### [facility] [address] [place] [address] Dr. Juan Jose Banda ATYPICAL LYMPH # 0.36 103/ul Normal [facility] Comment on above: Performed By: #### C OSORIO #### [facility] [address] [place] [address] Dr. Juan Jose Banda ATYPICAL LYMPH % 4 % Normal [facility] Comment on above: Performed By: #### C OSORIO #### [facility] [address] [place] [address] Dr. Juan Jose Banda BAND # 0.0 103/ul Normal 0.0-0.3 [facility] Comment on above: Performed By: #### C OSORIO #### [facility] [address] [place] [address] Dr. Juan Jose Banda BAND % 0 % Normal 0-5 [facility] Comment on above: Performed By: #### C OSORIO #### [facility] [address] [place] [address] Dr. Juan Jose Banda BASOM # 0.09 103/ul Normal 0.00-0.10 [facility] Comment on above: Performed By: #### C OSORIO #### [facility] [address] [address] [address] Juan Jose Banda BASOM % 1.0 % Normal 0.2-2.0 [facility] Comment on above: Performed By: #### C BCMAN #### [facility] [address] [place] [address] Dr. Juan Jose Banda BLAST # Normal [facility] Comment on above: Performed By: #### C BCJESSICA #### [facility] [address] [place] [address] Dr. Juan Jose Banda BLAST % Normal [facility] Comment on above: Performed By: #### C BCJESSICA #### [facility] [address] [place] [address] Dr. Juan Jose Banda CORRECTED WBC Normal 4.0-11.0 [facility] Comment on above: Performed By: #### C OSORIO #### [facility] [address] [place] [address] Dr. Juan Jose Banda EOS # 0.18 103/ul Normal 0.00-0.70 [facility] Comment on above: Performed By: #### C OSORIO #### [facility] [address] [place] [address] Dr. Juan Jose Banda EOS% 2.0 % Normal 0.9-7.0 [facility] Comment on above: Performed By: #### C OSORIO #### [facility] [address] [place] [address] Dr. Juan Jose Banda HCT 34.0 % Critically low 36.0-48.0 [facility] Comment on above: Performed By: #### C BCJESSICA #### [facility] [address] [place] [address] Dr. Juan Jose Banda HGB 11.8 g/dl Critically low 12.0-16.0 [facility] Comment on above: Performed By: #### C BCJESSICA #### [facility] [address] [place] [address] Dr. Juan Jose Banda LYMPHM # 1.55 103/ul Normal 1.20-3.80 [facility] Comment on above: Performed By: #### C BCJESSICA #### [facility] [address] [address] [address] Juan Jose Banda LYMPHM% 17.0 % Critically low 20.5-60.0 [facility] Comment on above: Performed By: #### C OSORIO #### [facility] [address] [address] [address] Juan Jose Banda MCH 29.0 pg Normal 26.7-34.0 [facility] Comment on above: Performed By: #### C OSORIO #### [facility] [address] [place] [address] Dr. Juan Jose Banda MCHC 34.7 g/dl Normal 29.9-35.2 [facility] Comment on above: Performed By: #### C OSORIO #### [facility] [address] [place] [address] Dr. Juan Jose Banda MCV 83.5 fL Normal 81.0-99.0 [facility] Comment on above: Performed By: #### C OSORIO #### [facility] [address] [place] [address] Dr. Juan Jose Banda METAMYELOCYTE # Normal [facility] Comment on above: Performed By: #### C OSORIO #### [facility] [address] [place] [address] Dr. Juan Jose Banda METAMYELOCYTE % Normal [facility] Comment on above: Performed By: #### C OSORIO #### [facility] [address] [place] [address] Dr. Juan Jose Banda MICROCYTOSIS SLIGHT Normal [facility] Comment on above: Performed By: #### C OSORIO #### [facility] [address] [place] [address] Dr. Juan Jose Banda MONOM# 1.00 103/ul Critically high 0.30-0.80 [facility] Comment on above: Performed By: #### C OSORIO #### [facility] [address] [place] [address] Dr. Juan Jose Banda MONOM% 11.0 % Normal 1.7-12.0 [facility] Comment on above: Performed By: #### C OSORIO #### [facility] [address] [address] [address] Juan Jose Banda MPV 11.2 fL Normal 9.5-13.5 [facility] Comment on above: Performed By: #### C OSORIO #### [facility] [address] [address] [address] Juan Jose Banda MYELOCYTE # Normal [facility] Comment on above: Performed By: #### C OSORIO #### [facility] [address] [address] [address] Juan Jose Banda MYELOCYTE % Normal [facility] Comment on above: Performed By: #### C OSORIO #### [facility] [address] [place] [address] Dr. Juan Jose Banda NRBC Normal [facility] Comment on above: Performed By: #### C OSORIO #### [facility] [address] [place] [address] Dr. Juan Jose Banda PLT 180 103/ul Normal 150-450 [facility] Comment on above: Performed By: #### C OSORIO #### [facility] [address] [address] [address] Juan Jose aBnda RBC 4.07 106/ul Critically low 4.20-5.40 [facility] Comment on above: Performed By: #### C OSORIO #### [facility] [address] [place] [address] Dr. Juan Jose Banda RDW 11.9 % Normal 11.0-15.0 [facility] Comment on above: Performed By: #### C OSORIO #### [facility] [address] [address] [address] Juan Jose Banda SEG # 5.92 103/ul Normal 1.40-6.50 [facility] Comment on above: Performed By: #### C OSORIO #### [facility] [address] [address] [address] Juan Jose Banda SEG % 65.0 % Normal 43.0-75.0 [facility] Comment on above: Performed By: #### C OSORIO #### [facility] [address] [place] [address] Dr. Juan Jose Banda WBC 9.1 103/ul Normal 4.0-11.0 [facility] Comment on above: Performed By: #### C BCMAN #### [facility] [address] [place] [address] Dr. Juan Jose Banda DRUG SCREEN RAPID (URINE)on 01-04-2023 AMP Negative Normal NEGATIVE [facility] Comment on above: Performed By: #### U RCX #### [facility] [address] [place] [address] Dr. Juan Jose Banda BAR Negative Normal NEGATIVE [facility] Comment on above: Performed By: #### U RCX #### [facility] [address] [place] [address] Dr. Juan Jose Banda BUP Negative Normal NEGATIVE [facility] Comment on above: Performed By: #### U RCX #### [facility] [address] [place] [address] Dr. Juan Jose Banda BZO Negative Normal NEGATIVE [facility] Comment on above: Performed By: #### U RCX #### [facility] [address] [place] [address] Dr. Juan Jose Banda LUCIO Negative Normal NEGATIVE [facility] Comment on above: Performed By: #### U RCX #### [facility] [address] [place] [address] Dr. Juan Jose Banda CUT-OFFS SEE BELOW Normal [facility] Comment on above: Result Comment: AMP [...] ng/mL Performed By: #### U RCX #### [facility] [address] [address] [address] Juan Jose Banda DRUG CUT HEADER DRUG CLASS TEST SYSTEM CUT-OFF CONCENTRATIONS ARE FOLLOWS: Normal [facility] Comment on above: Performed By: #### U RCX #### [facility] [address] [address] [address] Juan Jose Banda mAMP Negative Normal NEGATIVE [facility] Comment on above: Performed By: #### U RCX #### [facility] [address] [address] [address] Juan Jose Banda MTD Negative Normal NEGATIVE [facility] Comment on above: Performed By: #### U RCX #### [facility] [address] [address] [address] Juan Jose Banda OPI Negative Normal NEGATIVE [facility] Comment on above: Performed By: #### U RCX #### [facility] [address] [place] [address] Dr. Juan Jose Banda OXY Negative Normal NEGATIVE [facility] Comment on above: Performed By: #### U RCX #### [facility] [address] [address] [address] Juan Jose Banda PCP Negative Normal NEGATIVE [facility] Comment on above: Performed By: #### U RCX #### [facility] [address] [place] [address] Dr. Juan Jose Banda PPX Negative Normal NEGATIVE [facility] Comment on above: Performed By: #### U RCX #### [facility] [address] [place] [address] Dr. Juan Jose Banda TCA Negative Normal NEGATIVE [facility] Comment on above: Performed By: #### U RCX #### [facility] [address] [place] [address] Dr. Juan Jose Banda THC Negative Normal NEGATIVE [facility] Comment on above: Performed By: #### U RCX #### [facility] [address] [place] [address] Dr. Juan Jose Banda TYPE AND SCREENon 01-04-2023 TYPE AND SCREEN Negative Normal [facility] Comment on above: Performed By: #### C [facility] #### [facility] [address] [place] [address] Dr. Juan Jose Banda US PREG BIOPHY [...] by: YO MESA Date: 2022-12-31 17:02 Normal [facility] US PREG UMBILICAL ARTERYon 0 12-31-2022 US [...] YO MESA Date: 2022-12-31 17:18 Normal [facility] GROUP B STREP CULTUREon 12-07 S. agalactiae Ag Ql (Unsp spec) Culture Observations: NEGATIVE FOR GROUP B STREPTOCOCCUS. Normal [facility] Comment on above: Performed By: #### G BSCX #### [facility] [address] [place] [address] Dr. Juan Jose Banda US PREG BIOPHY [...] LUISA ARCHIBALD Date: 2022-12-24 11:23 Normal [facility] US PREG UMBILICAL ARTERYon 0 12-24-2022 [...] LUISA ARCHIBALD Date: 2022-12-24 11:58 Normal [facility] UA (CLEAN/CATCH) MANAGER OF FINANCE/MICRO I F IND.on 12-22-2022 Bilirubin Ql (U) Negative Normal NEGATIVE [facility] Comment on above: Performed By: #### C OSORIO #### [facility] [address] [place] [address] Dr. Juan Jose Banda Clarity (U) CLEAR Normal CLEAR [facility] Comment on above: Performed By: #### C BCJESSICA #### [facility] [address] [place] [address] Dr. Juan Jose Banda Color (U) LT. YELLOW Normal YELLOW [facility] Comment on above: Performed By: #### C OSORIO #### [facility] [address] [place] [address] Dr. Juan Jose Banda Glucose Ql (U) Negative Normal NEGATIVE [facility] Comment on above: Performed By: #### C OSORIO #### [facility] [address] [place] [address] Dr. Juan Jose Banda Hemoglobin Ql (U) Negative Normal NEGATIVE [facility] Comment on above: Performed By: #### C OSORIO #### [facility] [address] [address] [address] Juan Jose Banda Ketones Ql (U) Negative Normal NEGATIVE [facility] Comment on above: Performed By: #### C OSORIO #### [facility] [address] [place] [address] Dr. Juan Jose Banda LEUKOCYTES SMALL Abnormal NEGATIVE [facility] Comment on above: Performed By: #### C OSORIO #### [facility] [address] [place] [address] Dr. Juan Jose Banda Nitrite Ql (U) Negative Normal NEGATIVE [facility] Comment on above: Performed By: #### C OSORIO #### [facility] [address] [place] [address] Dr. Juan Jose Banda pH (U) 6.0 [pH] Normal 5-9 [facility] Comment on above: Performed By: #### C OSORIO #### [facility] [address] [place] [address] Dr. Juan Jose Banda SPEC GRAVITY <=1.005 Abnormal 1.005-<=1.025 [facility] Comment on above: Performed By: #### C OSORIO #### [facility] [address] [place] [address] Dr. Juan Jose Banda UA PROTEIN Negative Normal NEGATIVE/ TRACE [facility] Comment on above: Performed By: #### C OSORIO #### [facility] [address] [place] [address] Dr. Juan Jose Banda UR MICRO IND INDICATED Normal [facility] Comment on above: Performed By: #### C OSORIO #### [facility] [address] [place] [address] Dr. Juan Jose Banda Urobilinogen Qn (U) 0.2 {Tyler'U}/dL Normal 0.2 - 1. 0 [facility] Comment on above: Performed By: #### C OSORIO #### [facility] [address] [place] [address] Dr. Juan Jose Banda URINE MICROSCOPIC ONLYon BACTERIA NONE SEEN Normal NONE SEEN [facility] Comment on above: Performed By: #### C BCMAN #### [facility] [address] [place] [address] Dr. Juan Jose Banda Bacteria identified Cx Nom (U) NOT INDICATED Normal [facility] Comment on above: Performed By: #### C BCMAN #### [facility] [address] [place] [address] Dr. Juan Jose Banda CAST NONE SEEN Normal NONE SEEN [facility] Comment on above: Performed By: #### C BCMAN #### [facility] [address] [place] [address] Dr. Juan Jose Banda Crystals LM Nom (Urine sed) NONE SEEN Normal NONE SEEN [facility] Comment on above: Performed By: #### C BCMAN #### [facility] [address] [place] [address] Dr. Juan Jose Banda Epithelial cells LM Ql (Urine sed) MANY Abnormal NONE SEEN /RARE [facility] Comment on above: Performed By: #### C BCMAN #### [facility] [address] [place] [address] Dr. Juan Jose Banda MUCOUS NONE SEEN Normal NONE SEEN [facility] Comment on above: Performed By: #### C BCMAN #### [facility] [address] [place] [address] Dr. Juan Jose Banda RBC NONE SEEN Abnormal 0-2 [facility] Comment on above: Performed By: #### C BCMAN #### [facility] [address] [place] [address] Dr. Juan Jose Banda WBC 2-5 Abnormal NONE SEEN [facility] Comment on above: Performed By: #### C BCMAN #### [facility] [address] [place] [address] Dr. Juan Jose Banda US PREG BIOPHY [...] by: DALLIN HERNANDEZ Date: 2022-12-22 20:55 Normal [facility] PREG PLACENTAon US PREG PLACENTA EXAM: US [...] by: DALLIN HERNANDEZ Date: 2022-12-22 20:52 Normal [facility] PREG GROWTHon 12-20-2022 US PREG GROWTH [...] LUISA ARCHIBALD Date: 2022-12-20 15:23 Normal [facility] CULTURE URINEon 12-17-2022 CULTURE URINE Culture Observations: LIGHT GROWTH OF MIXED GENITAL CHEVY. NO POTENTIAL PATHOGENS SEEN. Normal [facility] Comment on above: Performed By: #### U RCX #### [facility] [address] [place] [address] Dr. Juan Jose Banda UA (CLEAN/CATCH) MANAGER OF FINANCE/MICRO I F IND.on 12-17-2022 Bilirubin Ql (U) Negative Normal NEGATIVE [facility] Comment on above: Performed By: #### H IV12 #### [facility] [address] [place] [address] Dr. Juan Jose Banda Clarity (U) CLEAR Normal CLEAR [facility] Comment on above: Performed By: #### H IV12 #### [facility] [address] [place] [address] Dr. Juan Jose Banda Color (U) LT. YELLOW Normal YELLOW [facility] Comment on above: Performed By: #### H IV12 #### [facility] [address] [place] [address] Dr. Juan Jose Banda Glucose Ql (U) Negative Normal NEGATIVE [facility] Comment on above: Performed By: #### H IV12 #### [facility] [address] [place] [address] Dr. Juan Jose Banda Hemoglobin Ql (U) Negative Normal NEGATIVE [facility] Comment on above: Performed By: #### H IV12 #### [facility] [address] [place] [address] Dr. Juan Jose Banda Ketones Ql (U) Negative Normal NEGATIVE [facility] Comment on above: Performed By: #### H IV12 #### [facility] [address] [place] [address] Dr. Juan Jose Banda LEUKOCYTES MODERATE Abnormal NEGATIVE [facility] Comment on above: Performed By: #### H IV12 #### [facility] [address] [place] [address] Dr. Juan Jose Banda Nitrite Ql (U) Negative Normal NEGATIVE [facility] Comment on above: Performed By: #### H IV12 #### [facility] [address] [place] [address] Dr. Juan Jose Banda pH (U) 6.5 [pH] Normal 5-9 [facility] Comment on above: Performed By: #### H IV12 #### [facility] [address] [place] [address] Dr. Juan Jose Banda SPEC GRAVITY <=1.005 Abnormal 1.005-<=1.025 [facility] Comment on above: Performed By: #### H IV12 #### [facility] [address] [place] [address] Dr. Juan Jose Banda UA PROTEIN Negative Normal NEGATIVE/ TRACE [facility] Comment on above: Performed By: #### H IV12 #### [facility] [address] [place] [address] Dr. Juan Jose Banda UR MICRO IND INDICATED Normal [facility] Comment on above: Performed By: #### H IV12 #### [facility] [address] [place] [address] Dr. Juan Jose Banda Urobilinogen Qn (U) 0.2 {Tyler'U}/dL Normal 0.2 - 1. 0 [facility] Comment on above: Performed By: #### H IV12 #### [facility] [address] [place] [address] Dr. Juan Jose Banda URINE MICROSCOPIC ONLYon BACTERIA TRACE Abnormal NONE SEEN [facility] Comment on above: Performed By: #### R PRQ #### [facility] [address] [place] [address] Dr. Juan Jose Banda Bacteria identified Cx Nom (U) INDICATED Normal [facility] Comment on above: Performed By: #### R PRQ #### [facility] [address] [place] [address] Dr. Juan Jose Banda CAST NONE SEEN Normal NONE SEEN [facility] Comment on above: Performed By: #### R PRQ #### [facility] [address] [address] [address] Juan Jose Banda Crystals LM Nom (Urine sed) NONE SEEN Normal NONE SEEN [facility] Comment on above: Performed By: #### R PRQ #### [facility] [address] [address] [address] Juan Jose Banda Epithelial cells LM Ql (Urine sed) MODERATE Abnormal NONE SEEN /RARE [facility] Comment on above: Performed By: #### R PRQ #### [facility] [address] [address] [address] Juan Jose Banda MUCOUS NONE SEEN Normal NONE SEEN [facility] Comment on above: Performed By: #### R PRQ #### [facility] [address] [place] [address] Dr. Juan Jose Banda RBC 2-5 Abnormal 0-2 [facility] Comment on above: Performed By: #### R PRQ #### [facility] [address] [place] [address] Dr. Juan Jose Banda WBC 5-10 Abnormal NONE SEEN [facility] Comment on above: Performed By: #### R PRQ #### [facility] [address] [place] [address] Dr. Juan Jose Banda YEAST PRESENT Abnormal NONE SEEN [facility] Comment on above: Result Comment: rare Performed By: #### R PRQ #### [facility] [address] [place] [address] Dr. Juan Jose Banda CARDIAC GUSTAVO ADMITon 023 CK [Catalytic activity/Vol] 33 U/L Normal 26-192 [facility] Comment on above: Performed By: #### S EDR #### [facility] [address] [place] [address] Dr. Juan Jose Banda CK.MB [Mass/Vol] ng/mL Normal <=3.60 [facility] Comment on above: Performed By: #### S EDR #### [facility] [address] [place] [address] Dr. Juan Jose Banda HSTROP <4.0 Normal 4.0-51.3 [facility] Comment on above: Result Comment: CUT- OFF POINTS HAVE BEEN ESTABLISHED BASED ON THE FOURTH UNIVERSAL DEFINITIONS OF MYOCARDIAL INFARCTION. THE UPPER REFERENCE LIMIT (URL) OF TROPONIN, DEFINED THE 99TH PERCENTILE OF cTnI DISTRIBUTION IN A REFERENCE POPULATION, HAS BEEN CONFIRMED THE DECISION THRESHOLD FOR DE DIAGNOSIS. Performed By: #### S EDR #### [facility] [address] [place] [address] Dr. Juan Jose Banda OTTO 17 ng/mL Normal 9-82 [facility] Comment on above: Performed By: #### S EDR #### [facility] [address] [address] [address] Juan Jose Banda CBC AUTO DIFFon 11-04-2022 BASO # 0.0 103/ul Normal 0.0-0.1 [facility] Comment on above: Performed By: #### U RCX #### [facility] [address] [place] [address] Dr. Juan Jose Banda Basophils/100 WBC (Bld) 0.2 % Normal 0.2-2.0 [facility] Comment on above: Performed By: #### U RCX #### [facility] [address] [place] [address] Dr. Juan Jose Banda EO # 0.0 103/ul Normal 0.0-0.7 [facility] Comment on above: Performed By: #### U RCX #### [facility] [address] [place] [address] Dr. Juan Jose Banda Eosinophils/100 WBC (Bld) 0.4 % Critically low 0.9-7.0 [facility] Comment on above: Performed By: #### U RCX #### [facility] [address] [place] [address] Dr. Juan Jose Banda Erythrocyte distribution width (RBC) [Ratio] 12.4 % Normal 11.0-15.0 [facility] Comment on above: Performed By: #### U RCX #### [facility] [address] [place] [address] Dr. Juan Jose Banda Hematocrit (Bld) [Volume fraction] 33.7 % Critically low 36.0-48.0 [facility] Comment on above: Performed By: #### U RCX #### [facility] [address] [address] [address] Juan Jose Banda Hemoglobin (Bld) [Mass/Vol] 12.1 g/dL Normal 12.0-16.0 [facility] Comment on above: Performed By: #### U RCX #### [facility] [address] [address] [address] Juan Jose Banda IG # 0.09 10e3/ul Critically high 0.00-0.03 [facility] Comment on above: Performed By: #### U RCX #### [facility] [address] [address] [address] Juan Jose Banda IG % 1.1 % Critically high 0.0-0.5 [facility] Comment on above: Performed By: #### U RCX #### [facility] [address] [address] [address] Juan Jose Banda LYMPH # 1.5 103/ul Normal 1.2-3.8 [facility] Comment on above: Performed By: #### U RCX #### [facility] [address] [address] [address] Juan Jose Banda Lymphocytes/100 WBC (Bld) 17.1 % Critically low 20.5-60.0 [facility] Comment on above: Performed By: #### U RCX #### [facility] [address] [address] [address] Juan Jose Banda MANUAL DIFF REQ NO Normal [facility] Comment on above: Performed By: #### U RCX #### [facility] [address] [address] [address] Juan Jose Banda MCH (RBC) [Entitic mass] 30.5 pg Normal 26.7-34.0 [facility] Comment on above: Performed By: #### U RCX #### [facility] [address] [address] [address] Juan Jose Banda MCHC (RBC) [Mass/Vol] 35.9 g/dL Critically high 29.9-35.2 [facility] Comment on above: Performed By: #### U RCX #### [facility] [address] [address] [address] Juan Jose Banda MCV (RBC) [Entitic vol] 84.9 fL Normal 81.0-99.0 [facility] Comment on above: Performed By: #### U RCX #### [facility] [address] [address] [address] Juan Jose Banda MONO # 0.8 103/ul Normal 0.3-0.8 [facility] Comment on above: Performed By: #### U RCX #### [facility] [address] [address] [address] Juan Jose Banda Monocytes/100 WBC (Bld) 9.8 % Normal 1.7-12.0 [facility] Comment on above: Performed By: #### U RCX #### [facility] [address] [place] [address] Dr. Juan Jose Banda NEUT # 6.1 103/ul Normal 1.4-6.5 [facility] Comment on above: Performed By: #### U RCX #### [facility] [address] [place] [address] Dr. Juan Jose Banda Neutrophils/100 WBC (Bld) 71.4 % Normal 43.0-75.0 [facility] Comment on above: Performed By: #### U RCX #### [facility] [address] [address] [address] Juan Jose Banda Platelet mean volume (Bld) [Entitic vol] 11.2 fL Normal 9.5-13.5 [facility] Comment on above: Performed By: #### U RCX #### [facility] [address] [address] [address] Juan Jose Banda PLT 196 103/ul Normal 150-450 [facility] Comment on above: Performed By: #### U RCX #### [facility] [address] [address] [address] Juan Jose Banda RBC 3.97 106/ul Critically low 4.20-5.40 [facility] Comment on above: Performed By: #### U RCX #### [facility] [address] [address] [address] Juan Jose Banda WBC 8.5 103/ul Normal 4.0-11.0 [facility] Comment on above: Performed By: #### U RCX #### [facility] [address] [address] [address] Juan Jose Banda LIVER PROFILEon 11-04-2022 Albumin [Mass/Vol] 3.0 g/dL Critically low 3.4-5.0 Th e [facility] Comment on above: Performed By: #### S EDR #### [facility] [address] [address] [address] Juan Jose Banda Albumin/Globulin [Mass ratio] 0.9 {ratio} Normal [facility] Comment on above: Performed By: #### S EDR #### [facility] [address] [address] [address] Juan Jose Banda ALP [Catalytic activity/Vol] 76 U/L Normal 46-116 [facility] Comment on above: Performed By: #### S EDR #### [facility] [address] [address] [address] Juan Jose Banda ALT [Catalytic activity/Vol] 13 U/L Critically low 14-59 [facility] Comment on above: Performed By: #### S EDR #### [facility] [address] [address] [address] Juan Jose Banda AST [Catalytic activity/Vol] 14 U/L Critically low 15-37 [facility] Comment on above: Performed By: #### S EDR #### [facility] [address] [address] [address] Juan Jose Banda BILI, CONJUGATED 0.1 mg/dL Normal 0.0-0.2 [facility] Comment on above: Performed By: #### S EDR #### [facility] [address] [address] [address] Juan Jose Banda Bilirubin [Mass/Vol] 0.3 mg/dL Normal 0.2-1.0 [facility] Comment on above: Performed By: #### S EDR #### [facility] [address] [place], [place] [address] Dr. Juan Jose Banda Globulin (S) [Mass/Vol] 3.4 g/dL Normal [facility] Comment on above: Performed By: #### S EDR #### [facility] [address] [place], [place] [address] Dr. Juan Jose Banda Protein [Mass/Vol] 6.4 g/dL Normal 6.4-8.2 [facility] Comment on above: Performed By: #### S EDR #### [facility] [address] [place], [place] [address] Dr. Juan Jose Banda BOX TEST SENT OUTon 10-01-19 23 SENT TO REF LAB 10/01/2022 Normal [facility] Comment on above: Performed By: #### S EDR #### [facility] [address] [address] [address] Juan Jose Banda US PREG ANATOMY [...] due to position. Electronically authenticated by: LUISA ALVARACHELKESHAWN Date: 2022-09-29 16:29 Normal [facility] HEP B SURFACE ANTIGEN SCREEN on 08-26-2022 HBsAg Screen Negative Normal Negative [facility] Comment on above: Performed By: #### S EDR #### [facility] [address] [address] [address] Juan Jose Banda HEPATITIS C VIRUS AB W/ REFL EX QUANTon 08-26-2022 HCV AB <0.1 Normal 0.0-0.9 [facility] Comment on above: Performed By: #### R PRQ #### [facility] [address] [address] [address] Juan Jose Banda Interpretation: Comment Normal [facility] Comment on above: Result Comment: Nega tive Not infected with HCV, unless recent infection is suspected or other evidence exists to indicate HCV infection. Performed By: #### R PRQ #### [facility] [address] [address] [address] Juan Jose Banda HIV 1 AND 2 WITH REFLEXon HIV Screen 4th Generation wRfx Non-Reactive Normal Non Reactive [facility] Comment on above: Result Comment: HIV Negative HIV-1/HIV-2 antibodies and HIV-1 p24 antigen were NOT detected. There is no laboratory evidence of HIV infection. Performed By: #### H IV12 #### [facility] [address] [place] [address] Dr. Juan Jose Banda RPR QUANTon 08-26-2022 Rapid Plasma Reagin, Quant Non-Reactive Normal NonRea<1:1 [facility] Comment on above: Result Comment: Plea se Note: This test does not meet current guidelines for screening and diagnosis of syphilis. This test is intended for following treatment response in patients being treated for syphilis infection. To screen for syphilis infection, a reflex cascade that includes both RPR and a treponema-specific assay should be utilized, such as Treponema pallidum (Syphilis) Screening [place] (064794) or Rapid Plasma Reagin (RPR) Test With Reflex to Quantitative RPR and Confirmatory Treponema pallidum Antibodies (687996). Performed By: #### R PRQ #### [facility] [address] [place] [address] Dr. Juan Jose Banda RUBELLA AB IGGon 08-26-2022 Rubella Antibodies, IgG 2.56 index Normal Immune >0.99 [facility] Comment on above: Result Comment: Non- immune <0.90 Equivocal 0.90 - 0.99 Immune >0.99 Performed By: #### S EDR #### [facility] [address] [place] [address] Dr. Juan Jose Banda CULTURE URINEon 08-25-2022 CULTURE URINE Culture Observations: LIGHT GROWTH OF MIXED GENITAL CHEVY. NO POTENTIAL PATHOGENS SEEN. Normal [facility] Comment on above: Performed By: #### U RCX #### [facility] [address] [place] [address] Dr. Juan Jose Banda CBC AUTO DIFFon 08-24-2022 BASO # 0.0 103/ul Normal 0.0-0.1 [facility] Comment on above: Performed By: #### S EDR #### [facility] [address] [place] [address] Dr. Juan Jose Banda Basophils/100 WBC (Bld) 0.4 % Normal 0.2-2.0 [facility] Comment on above: Performed By: #### S EDR #### [facility] [address] [place] [address] Dr. Juan Jose Banda EO # 0.1 103/ul Normal 0.0-0.7 [facility] Comment on above: Performed By: #### S EDR #### [facility] [address] [place] [address] Dr. Juan Jose Banda Eosinophils/100 WBC (Bld) 1.4 % Normal 0.9-7.0 [facility] Comment on above: Performed By: #### S EDR #### [facility] [address] [place] [address] Dr. Juan Jose Banda Erythrocyte distribution width (RBC) [Ratio] 12.2 % Normal 11.0-15.0 [facility] Comment on above: Performed By: #### S EDR #### [facility] [address] [place] [address] Dr. Juan Jose Banda Hematocrit (Bld) [Volume fraction] 35.3 % Critically low 36.0-48.0 [facility] Comment on above: Performed By: #### S EDR #### [facility] [address] [place] [address] Dr. Juan Jose Banda Hemoglobin (Bld) [Mass/Vol] 12.7 g/dL Normal 12.0-16.0 [facility] Comment on above: Performed By: #### S EDR #### [facility] [address] [place] [address] Dr. Juan Jose Banda IG # 0.03 10e3/ul Normal 0.00-0.03 [facility] Comment on above: Performed By: #### S EDR #### [facility] [facility] [address] [place] [address] Dr. Juan Jose Banda IG % 0.4 % Normal 0.0-0.5 [facility] Comment on above: Performed By: #### S EDR #### [facility] [address] [place] [address] Dr. Juan Jose Banda LYMPH # 1.4 103/ul Normal 1.2-3.8 [facility] Comment on above: Performed By: #### S EDR #### [facility] [address] [place] [address] Dr. Juan Jose Banda Lymphocytes/100 WBC (Bld) 19.7 % Critically low 20.5-60.0 [facility] Comment on above: Performed By: #### S EDR #### [facility] [address] [place] [address] Dr. Juan Jose Banda MANUAL DIFF REQ NO Normal [facility] Comment on above: Performed By: #### S EDR #### [facility] [address] [place] [address] Dr. Juan Jose Banda MCH (RBC) [Entitic mass] 29.8 pg Normal 26.7-34.0 [facility] Comment on above: Performed By: #### S EDR #### [facility] [address] [place] [address] Dr. Juan Jose Banda MCHC (RBC) [Mass/Vol] 36.0 g/dL Critically high 29.9-35.2 [facility] Comment on above: Performed By: #### S EDR #### [facility] [address] [place] [address] Dr. Juan Jose Banda MCV (RBC) [Entitic vol] 82.9 fL Normal 81.0-99.0 [facility] Comment on above: Performed By: #### S EDR #### [facility] [address] [place] [address] Dr. Juan Jose Banda MONO # 0.6 103/ul Normal 0.3-0.8 [facility] Comment on above: Performed By: #### S EDR #### [facility] [address] [place] [address] Dr. Juan Jose Banda Monocytes/100 WBC (Bld) 8.3 % Normal 1.7-12.0 [facility] Comment on above: Performed By: #### S EDR #### [facility] [address] [place] [address] Dr. Juan Jose Banda NEUT # 5.0 103/ul Normal 1.4-6.5 [facility] Comment on above: Performed By: #### S EDR #### [facility] [address] [place] [address] Dr. Juan Jose Banda Neutrophils/100 WBC (Bld) 69.8 % Normal 43.0-75.0 [facility] Comment on above: Performed By: #### S EDR #### [facility] [address] [place] [address] Dr. Juan Jose aBnda Platelet mean volume (Bld) [Entitic vol] 11.8 fL Normal 9.5-13.5 [facility] Comment on above: Performed By: #### S EDR #### [facility] [address] [address] [address] Juan Jose Banda PLT 183 103/ul Normal 150-450 [facility] Comment on above: Performed By: #### S EDR #### [facility] [address] [address] [address] Juan Jose Banda RBC 4.26 106/ul Normal 4.20-5.40 [facility] Comment on above: Performed By: #### S EDR #### [facility] [address] [address] [address] Juan Jose Banda WBC 7.1 103/ul Normal 4.0-11.0 [facility] Comment on above: Performed By: #### S EDR #### [facility] [address] [place] [address] Dr. Juan Jose Banda CULTURE URINEon 08-24-2022 CULTURE URINE Culture Observations: MODERATE GROWTH OF MIXED GENITAL CHEVY. NO POTENTIAL PATHOGENS SEEN. Normal [facility] Comment on above: Performed By: #### C BCMAN #### [facility] [address] [address] [address] Juan Jose Banda GLYCOHEMOGLOBIN A1Con 2022 ADA RECOMMENDATION SEE BELOW Normal [facility] Comment on above: Result Comment: ADA RECOMMENDED LIMIT 4.0 - 6.0 ADA THERAPEUTIC TARGET < 7.0 ACTION SUGGESTED > 7.0 Performed By: #### H IV12 #### [facility] [address] [place] [address] Dr. Juan Jose Banda Glucose [Mass/Vol] 85 mg/dL Normal [facility] Comment on above: Performed By: #### H IV12 #### [facility] [address] [address] [address] Juan Jose Banda HbA1c (Bld) [Mass fraction] 4.6 % Normal 4.5-6.2 [facility] Comment on above: Performed By: #### H IV12 #### [facility] [address] [place] [address] Dr. Juan Jose Banda TYPE AND SCREENon 08-24-2022 TYPE AND SCREEN Negative Normal [facility] Comment on above: Performed By: #### T NS #### [facility] [address] [address] [address] Juan Jose Banda Covid-19 PCR ([facility])on 06-08 SARS-CoV-2 (COVID-19) RNA ISAAC+probe Ql (Unsp spec) Not detected Normal NOT DETECTED [facility] Comment on above: Result Comment: When [...] for this test is supported by the [place] of Health and Human Service's declaration that [...] used). Performed By: #### R PRQ #### [facility] [address] [place] [address] Dr. Juan Jose Banda INFLUENZA A AND B AGon 06-25 [facility] SEE BELOW Normal [facility] Comment on above: Result Comment: Nega tive for Flu A protein angiten. Infection due to Flu A cannot be ruled out. Flu A angiten in the sample may be below the detection limit of the test. Performed By: #### S EDR #### [facility] [address] [address] [address] [facility] Normal [facility] Comment on above: Result Comment: Nega tive for Flu B protein antigen. Infection due to Flu B cannot be ruled out. Flu B antigen in the sample may be below the detection limit of the test. Performed By: #### S EDR #### [facility] [address] [place] [address] Dr. Juan Jose Banda INFLUENZA A AG Negative Normal NEGATIVE SEE COMMENT [facility] Comment on above: Performed By: #### S EDR #### [facility] [address] [place] [address] Dr. Juan Jose Banda INFLUENZA B AG Negative Normal NEGATIVE SEE COMMENT [facility] Comment on above: Performed By: #### S EDR #### [facility] [address] [place] [address] Dr. Juan Jose Banda INTERNAL CONTROLS Within Normal Limits Normal Within Normal Limits [facility] Comment on above: Performed By: #### S EDR #### [facility] [address] [place] [address] Dr. Juan Jose Banda CBC AUTO DIFFon 06-20-2022 BASO # 0.0 103/ul Normal 0.0-0.1 [facility] Comment on above: Performed By: #### S EDR #### [facility] [address] [place] [address] Dr. Juan Jose Banda Basophils/100 WBC (Bld) 0.3 % Normal 0.2-2.0 [facility] Comment on above: Performed By: #### S EDR #### [facility] [address] [place] [address] Dr. Juan Jose Banda EO # 0.1 103/ul Normal 0.0-0.7 [facility] Comment on above: Performed By: #### S EDR #### [facility] [address] [place] [address] Dr. Juan Jose Banda Eosinophils/100 WBC (Bld) 1.3 % Normal 0.9-7.0 [facility] Comment on above: Performed By: #### S EDR #### [facility] [address] [place] [address] Dr. Juan Jose Banda Erythrocyte distribution width (RBC) [Ratio] 11.4 % Normal 11.0-15.0 [facility] Comment on above: Performed By: #### S EDR #### [facility] [address] [place] [address] Dr. Juan Jose Banda Hematocrit (Bld) [Volume fraction] 35.6 % Critically low 36.0-48.0 [facility] Comment on above: Performed By: #### S EDR #### [facility] [address] [place] [address] Dr. Juan Jose Banda Hemoglobin (Bld) [Mass/Vol] 12.9 g/dL Normal 12.0-16.0 [facility] Comment on above: Performed By: #### S EDR #### [facility] [address] [address] [address] Juan Jose Banda IG # 0.04 10e3/ul Critically high 0.00-0.03 [facility] Comment on above: Performed By: #### S EDR #### [facility] [address] [place] [address] Dr. Juan Jose Banda IG % 0.5 % Normal 0.0-0.5 [facility] Comment on above: Performed By: #### S EDR #### [facility] [address] [place] [address] Dr. Juan Jose Banda LYMPH # 2.2 103/ul Normal 1.2-3.8 [facility] Comment on above: Performed By: #### S EDR #### [facility] [address] [place] [address] Dr. Juan Jose Banda Lymphocytes/100 WBC (Bld) 25.8 % Normal 20.5-60.0 [facility] Comment on above: Performed By: #### S EDR #### [facility] [address] [place] [address] Dr. Juan Jose Banda MANUAL DIFF REQ NO Normal [facility] Comment on above: Performed By: #### S EDR #### [facility] [address] [address] [address] Juan Jose Banda MCH (RBC) [Entitic mass] 29.9 pg Normal 26.7-34.0 [facility] Comment on above: Performed By: #### S EDR #### [facility] [address] [place] [address] Dr. Juan Jose Banda MCHC (RBC) [Mass/Vol] 36.2 g/dL Critically high 29.9-35.2 [facility] Comment on above: Performed By: #### S EDR #### [facility] [address] [place] [address] Dr. Juan Jose Banda MCV (RBC) [Entitic vol] 82.4 fL Normal 81.0-99.0 [facility] Comment on above: Performed By: #### S EDR #### [facility] [address] [place] [address] Dr. Juan Jose Banda MONO # 0.9 103/ul Critically high 0.3-0.8 [facility] Comment on above: Performed By: #### S EDR #### [facility] [address] [place] [address] Dr. Juan Jose Banda Monocytes/100 WBC (Bld) 9.9 % Normal 1.7-12.0 [facility] Comment on above: Performed By: #### S EDR #### [facility] [address] [place] [address] Dr. Juan Jose Banda NEUT # 5.4 103/ul Normal 1.4-6.5 [facility] Comment on above: Performed By: #### S EDR #### [facility] [address] [place] [address] Dr. Juan Jose Banda Neutrophils/100 WBC (Bld) 62.2 % Normal 43.0-75.0 [facility] Comment on above: Performed By: #### S EDR #### [facility] [address] [place] [address] Dr. Juan Jose Banda Platelet mean volume (Bld) [Entitic vol] 11.7 fL Normal 9.5-13.5 [facility] Comment on above: Performed By: #### S EDR #### [facility] [address] [place] [address] Dr. Juan Jose Banda PLT 205 103/ul Normal 150-450 [facility] Comment on above: Performed By: #### S EDR #### [facility] [address] [place] [address] Dr. Juan Jose Banda RBC 4.32 106/ul Normal 4.20-5.40 [facility] Comment on above: Performed By: #### S EDR #### [facility] [address] [place] [address] Dr. Juan Jose Banda WBC 8.6 103/ul Normal 4.0-11.0 [facility] Comment on above: Performed By: #### S EDR #### [facility] [address] [place] [address] Dr. Juan Jose Banda ER URINE PROFILEon 2 Bilirubin Ql (U) Negative Normal NEGATIVE [facility] Comment on above: Performed By: #### H IV12 #### [facility] [address] [place] [address] Dr. Juan Jose Banda Clarity (U) CLEAR Normal CLEAR [facility] Comment on above: Performed By: #### H IV12 #### [facility] [address] [place] [address] Dr. Juan Jose Banda Color (U) LT. YELLOW Normal YELLOW [facility] Comment on above: Performed By: #### H IV12 #### [facility] [address] [place] [address] Dr. Juan Jose Banda ERUAHSiobhan A micrscopic examination will be performed if indicated. Normal [facility] Comment on above: Performed By: #### H IV12 #### [facility] [address] [place] [address] Dr. Juan Jose Banda Glucose Ql (U) Negative Normal NEGATIVE [facility] Comment on above: Performed By: #### H IV12 #### [facility] [address] [place] [address] Dr. Juan Jose Banda Hemoglobin Ql (U) Negative Normal NEGATIVE [facility] Comment on above: Performed By: #### H IV12 #### [facility] [address] [place] [address] Dr. Juan Jose Banda Ketones Ql (U) Negative Normal NEGATIVE [facility] Comment on above: Performed By: #### H IV12 #### [facility] [address] [place] [address] Dr. Juan Jose Banda LEUKOCYTES SMALL Abnormal NEGATIVE [facility] Comment on above: Performed By: #### H IV12 #### [facility] [address] [address] [address] Juan Jose Banda Nitrite Ql (U) Negative Normal NEGATIVE [facility] Comment on above: Performed By: #### H IV12 #### [facility] [address] [place] [address] Dr. Juan Jose Banda pH (U) 6.0 [pH] Normal 5-9 [facility] Comment on above: Performed By: #### H IV12 #### [facility] [address] [place] [address] Dr. Juan Jose Banda SPEC GRAVITY <=1.005 Abnormal 1.005-<=1.025 [facility] Comment on above: Performed By: #### H IV12 #### [facility] [address] [place] [address] Dr. Juan Jose Banda UA PROTEIN Negative Normal NEGATIVE/ TRACE [facility] Comment on above: Performed By: #### H IV12 #### [facility] [address] [place] [address] Dr. Juan Jose Banda UR MICRO IND INDICATED Normal [facility] Comment on above: Performed By: #### H IV12 #### [facility] [address] [place] [address] Dr. Juan Jose Banda Urobilinogen Qn (U) 0.2 {Tyler'U}/dL Normal 0.2 - 1. 0 [facility] Comment on above: Performed By: #### H IV12 #### [facility] [address] [place] [address] Dr. Juan Jose Banda PREG QUANT HCGon 06-20-2022 HCG QUANT 77819 mIU/mL Normal [facility] Comment on above: Performed By: #### R PRQ #### [facility] [address] [place] [address] Dr. Juan Jose Banda HCG RANGE SEE BELOW Normal [facility] Comment on above: Result Comment: 5-50 0.2-1 WEEK 50-500 1-2 WEEKS 100-5,000 2-3 WEEKS 500-10,000 3-4 WEEKS 1,000-50,000 4-5 WEEKS 10,000-100,000 5-6 WEEKS 15,000-200,000 6-8 WEEKS 10,000-100,000 2-3 MONTHS Performed By: #### R PRQ #### [facility] [address] [place] [address] Dr. Juan Jose Banda URon 06-20-2022 , QUAL Positive Abnormal NEGATIVE [facility] Comment on above: Performed By: #### H IV12 #### [facility] [address] [place] [address] Dr. Juan Jose Banda PROF CHEM 8 (BAS METB)on Anion gap [Moles/Vol] 9.4 mmol/L Normal [facility] Comment on above: Performed By: #### R PRQ #### [facility] [address] [place] [address] Dr. Juan Jose Banda Calcium [Mass/Vol] 8.8 mg/dL Normal 8.5-10.1 [facility] Comment on above: Performed By: #### R PRQ #### [facility] [address] [place] [address] Dr. Juan Jose Banda Chloride [Moles/Vol] 102 mmol/L Normal 98-107 [facility] Comment on above: Performed By: #### R PRQ #### [facility] [address] [place] [address] Dr. Juan Jose Banda CO2 [Moles/Vol] 28.0 mmol/L Normal 21.0-32.0 [facility] Comment on above: Performed By: #### R PRQ #### [facility] [address] [place] [address] Dr. Juan Jose Banda Creatinine [Mass/Vol] 0.66 mg/dL Normal 0.55-1.02 [facility] Comment on above: Performed By: #### R PRQ #### [facility] [address] [place] [address] Dr. Juan Jose Banda EGFR-AF BURMESE >60 Normal >=60 [facility] Comment on above: Performed By: #### R PRQ #### [facility] [address] [place] [address] Dr. Juan Jose Banda EGFR-NON AF BURMESE >60 Normal >=60 [facility] Comment on above: Performed By: #### R PRQ #### [facility] [address] [place] [address] Dr. Juan Jose Banda Glucose [Mass/Vol] 92 mg/dL Normal 74-106 [facility] Comment on above: Performed By: #### R PRQ #### [facility] [address] [place] [address] Dr. Juan Jose Banda Potassium [Moles/Vol] 3.4 mmol/L Critically low 3.5-5.1 [facility] Comment on above: Performed By: #### R PRQ #### [facility] [address] [place] [address] Dr. Juan Jose Banda Sodium [Moles/Vol] 136 mmol/L Normal 136-145 [facility] Comment on above: Performed By: #### R PRQ #### [facility] [address] [place] [address] Dr. Juan Jose Banda Urea nitrogen [Mass/Vol] 9.0 mg/dL Normal 6.4-19.3 [facility] Comment on above: Performed By: #### R PRQ #### [facility] [address] [place] [address] Dr. Juan Jose Banda Urea nitrogen/Creatinine [Mass ratio] 13.6 mg/mg Normal [facility] Comment on above: Performed By: #### R PRQ #### [facility] [address] [place] [address] Dr. Juan Jose Banda URINE MICROSCOPIC ONLYon BACTERIA TRACE Abnormal NONE SEEN [facility] Comment on above: Performed By: #### H IV12 #### [facility] [address] [place] [address] Dr. Juan Jose Banda Bacteria identified Cx Nom (U) NOT INDICATED Normal [facility] Comment on above: Performed By: #### H IV12 #### [facility] [address] [place] [address] Dr. Juan Jose Banda CAST NONE SEEN Normal NONE SEEN [facility] Comment on above: Performed By: #### H IV12 #### [facility] [address] [address] [address] Juan Jose Banda Crystals LM Nom (Urine sed) NONE SEEN Normal NONE SEEN [facility] Comment on above: Performed By: #### H IV12 #### [facility] [address] [address] [address] Juan Jose Banda Epithelial cells LM Ql (Urine sed) MANY Abnormal NONE SEEN /RARE [facility] Comment on above: Performed By: #### H IV12 #### [facility] [address] [place] [address] Dr. Juan Jose Banda MUCOUS TRACE Abnormal NONE SEEN [facility] Comment on above: Performed By: #### H IV12 #### [facility] [address] [place] [address] Dr. Juan Jose Banda RBC 0-2 Normal 0-2 [facility] Comment on above: Performed By: #### H IV12 #### [facility] [address] [place] [address] Dr. Juan Jose Banda WBC 0-2 Abnormal NONE SEEN [facility] Comment on above: Performed By: #### H IV12 #### [facility] [address] [place] [address] Dr. Juan Jose Banda US PREG TVon [...] LUISA ARCHIBALD Date: 2022-06-18 17:27 Normal [facility] ABO AND RH TYPEon 06-02-2022 ABO and Rh group Nom (Bld) ABO Rh Typing O Rh Positive Normal [facility] Comment on above: Performed By: #### A STUART #### [facility] [address] [place] [address] Dr. Juan Jose Banda AMYLASEon 06-02-2022 Amylase [Catalytic activity/Vol] 33 U/L Normal 25-115 [facility] Comment on above: Performed By: #### U RCX #### [facility] [address] [place] [address] Dr. Juan Jose Banda CBC AUTO DIFFon 06-02-2022 BASO # 0.0 103/ul Normal 0.0-0.1 [facility] Comment on above: Performed By: #### C OSORIO #### [facility] [address] [place] [address] Dr. Juan Jose Banda Basophils/100 WBC (Bld) 0.4 % Normal 0.2-2.0 [facility] Comment on above: Performed By: #### C OSORIO #### [facility] [address] [place] [address] Dr. Juan Jose Banda EO # 0.1 103/ul Normal 0.0-0.7 [facility] Comment on above: Performed By: #### C OSORIO #### [facility] [address] [place] [address] Dr. Juan Jose Banda Eosinophils/100 WBC (Bld) 2.2 % Normal 0.9-7.0 [facility] Comment on above: Performed By: #### C OSORIO #### [facility] [address] [place] [address] Dr. Juan Jose Banda Erythrocyte distribution width (RBC) [Ratio] 11.6 % Normal 11.0-15.0 [facility] Comment on above: Performed By: #### C OSORIO #### [facility] [address] [place] [address] Dr. Juan Jose Banda Hematocrit (Bld) [Volume fraction] 35.1 % Critically low 36.0-48.0 [facility] Comment on above: Performed By: #### C OSORIO #### [facility] [address] [address] [address] Juan Jose Banda Hemoglobin (Bld) [Mass/Vol] 12.5 g/dL Normal 12.0-16.0 [facility] Comment on above: Performed By: #### C OSORIO #### [facility] [address] [address] [address] Juan Jose Banda IG # 0.02 10e3/ul Normal 0.00-0.03 [facility] Comment on above: Performed By: #### C OSORIO #### [facility] [address] [address] [address] Juan Jose Banda IG % 0.4 % Normal 0.0-0.5 [facility] Comment on above: Performed By: #### C OSORIO #### [facility] [address] [place] [address] Dr. Juan Jose Banda LYMPH # 1.8 103/ul Normal 1.2-3.8 [facility] Comment on above: Performed By: #### C OSORIO #### [facility] [address] [place] [address] Dr. Juan Jose Banda Lymphocytes/100 WBC (Bld) 31.8 % Normal 20.5-60.0 [facility] Comment on above: Performed By: #### C OSORIO #### [facility] [address] [place] [address] Dr. Juan Jose Banda MANUAL DIFF REQ NO Normal [facility] Comment on above: Performed By: #### C OSORIO #### [facility] [address] [place] [address] Dr. Juan Jose Banda MCH (RBC) [Entitic mass] 29.9 pg Normal 26.7-34.0 [facility] Comment on above: Performed By: #### C OSORIO #### [facility] [address] [place] [address] Dr. Juan Jose Banda MCHC (RBC) [Mass/Vol] 35.6 g/dL Critically high 29.9-35.2 [facility] Comment on above: Performed By: #### C OSORIO #### [facility] [address] [address] [address] Juan Jose Banda MCV (RBC) [Entitic vol] 84.0 fL Normal 81.0-99.0 [facility] Comment on above: Performed By: #### C OSORIO #### [facility] [address] [address] [address] Juan Jose Banda MONO # 0.6 103/ul Normal 0.3-0.8 [facility] Comment on above: Performed By: #### C OSORIO #### [facility] [address] [address] [address] Juan Jose Banda Monocytes/100 WBC (Bld) 10.4 % Normal 1.7-12.0 [facility] Comment on above: Performed By: #### C OSORIO #### [facility] [address] [place] [address] Dr. Juan Jose Banda NEUT # 3.1 103/ul Normal 1.4-6.5 [facility] Comment on above: Performed By: #### C OSORIO #### [facility] [address] [place] [address] Dr. Juan Jose Banda Neutrophils/100 WBC (Bld) 54.8 % Normal 43.0-75.0 [facility] Comment on above: Performed By: #### C OSORIO #### [facility] [address] [place] [address] Dr. Juan Jose Banda Platelet mean volume (Bld) [Entitic vol] 11.8 fL Normal 9.5-13.5 [facility] Comment on above: Performed By: #### C OSORIO #### [facility] [address] [place] [address] Dr. Juan Jose Banda PLT 185 103/ul Normal 150-450 [facility] Comment on above: Performed By: #### C OSORIO #### [facility] [address] [place] [address] Dr. Juan Jose Banda RBC 4.18 106/ul Critically low 4.20-5.40 [facility] Comment on above: Performed By: #### C OSORIO #### [facility] [address] [place] [address] Dr. Juan Jose Banda WBC 5.6 103/ul Normal 4.0-11.0 [facility] Comment on above: Performed By: #### C BCMAN #### [facility] [address] [place] [address] Dr. Juan Jose Banda LIPASEon 06-02-2022 Lipase [Catalytic activity/Vol] 69.0 U/L Critically low 73.0-393.0 [facility] Comment on above: Performed By: #### U RCX #### [facility] [address] [place] [address] Dr. Juan Jose Banda PREG QUANT HCGon 06-02-2022 HCG QUANT 57504 mIU/mL Normal [facility] Comment on above: Performed By: #### R PRQ #### [facility] [address] [place] [address] Dr. Juan Jose Banda HCG RANGE SEE BELOW Normal [facility] Comment on above: Result Comment: 5-50 0.2-1 WEEK 50-500 1-2 WEEKS 100-5,000 2-3 WEEKS 500-10,000 3-4 WEEKS 1,000-50,000 4-5 WEEKS 10,000-100,000 5-6 WEEKS 15,000-200,000 6-8 WEEKS 10,000-100,000 2-3 MONTHS Performed By: #### R PRQ #### [facility] [address] [place] [address] Dr. Juan Jose Banda US PREG TVon [...] Marita SINHA Date: 2022-06-02 01:30 Normal [facility] CBC AUTO DIFFon 05-25-2022 BASO # 0.0 103/ul Normal 0.0-0.1 [facility] Comment on above: Performed By: #### H IV12 #### [facility] [address] [place] [address] Dr. Juan Jose Banda Basophils/100 WBC (Bld) 0.5 % Normal 0.2-2.0 [facility] Comment on above: Performed By: #### H IV12 #### [facility] [address] [place] [address] Dr. Juan Jose Banda EO # 0.1 103/ul Normal 0.0-0.7 [facility] Comment on above: Performed By: #### H IV12 #### [facility] [address] [place] [address] Dr. Juan Jose Banda Eosinophils/100 WBC (Bld) 1.2 % Normal 0.9-7.0 [facility] Comment on above: Performed By: #### H IV12 #### [facility] [address] [place] [address] Dr. Juan Jose Banda Erythrocyte distribution width (RBC) [Ratio] 11.6 % Normal 11.0-15.0 [facility] Comment on above: Performed By: #### H IV12 #### [facility] [address] [place] [address] Dr. Juan Jose Banda Hematocrit (Bld) [Volume fraction] 36.0 % Normal 36.0-48.0 [facility] Comment on above: Performed By: #### H IV12 #### [facility] [address] [place] [address] Dr. Juan Jose Banda Hemoglobin (Bld) [Mass/Vol] 12.7 g/dL Normal 12.0-16.0 [facility] Comment on above: Performed By: #### H IV12 #### [facility] [address] [place] [address] Dr. Juan Jose Banda IG # 0.03 10e3/ul Normal 0.00-0.03 [facility] Comment on above: Performed By: #### H IV12 #### [facility] [address] [address] [address] Juan Jose Banda IG % 0.4 % Normal 0.0-0.5 [facility] Comment on above: Performed By: #### H IV12 #### [facility] [address] [place] [address] Dr. Juan Jose Banda LYMPH # 2.4 103/ul Normal 1.2-3.8 [facility] Comment on above: Performed By: #### H IV12 #### [facility] [address] [place] [address] Dr. Juan Jose Banda Lymphocytes/100 WBC (Bld) 29.8 % Normal 20.5-60.0 [facility] Comment on above: Performed By: #### H IV12 #### [facility] [address] [place] [address] Dr. Juan Jose Banda MANUAL DIFF REQ NO Normal [facility] Comment on above: Performed By: #### H IV12 #### [facility] [address] [place] [address] Dr. Juan Jose Banda MCH (RBC) [Entitic mass] 29.9 pg Normal 26.7-34.0 [facility] Comment on above: Performed By: #### H IV12 #### [facility] [address] [place] [address] Dr. Juan Jose Banda MCHC (RBC) [Mass/Vol] 35.3 g/dL Critically high 29.9-35.2 [facility] Comment on above: Performed By: #### H IV12 #### [facility] [address] [place] [address] Dr. Juan Jose Banda MCV (RBC) [Entitic vol] 84.7 fL Normal 81.0-99.0 [facility] Comment on above: Performed By: #### H IV12 #### [facility] [address] [place] [address] Dr. Juan Jose Banda MONO # 0.8 103/ul Normal 0.3-0.8 [facility] Comment on above: Performed By: #### H IV12 #### [facility] [address] [place] [address] Dr. Juan Jose Banda Monocytes/100 WBC (Bld) 9.4 % Normal 1.7-12.0 [facility] Comment on above: Performed By: #### H IV12 #### [facility] [address] [place] [address] Dr. Juan Jose Banda NEUT # 4.8 103/ul Normal 1.4-6.5 [facility] Comment on above: Performed By: #### H IV12 #### [facility] [address] [place] [address] Dr. Juan Jose Banda Neutrophils/100 WBC (Bld) 58.7 % Normal 43.0-75.0 [facility] Comment on above: Performed By: #### H IV12 #### [facility] [address] [place] [address] Dr. Juan Jose Banda Platelet mean volume (Bld) [Entitic vol] 11.5 fL Normal 9.5-13.5 [facility] Comment on above: Performed By: #### H IV12 #### [facility] [address] [place] [address] Dr. Juan Jose Banda PLT 218 103/ul Normal 150-450 [facility] Comment on above: Performed By: #### H IV12 #### [facility] [address] [place] [address] Dr. Juan Jose Banda RBC 4.25 106/ul Normal 4.20-5.40 [facility] Comment on above: Performed By: #### H IV12 #### [facility] [address] [place] [address] Dr. Juan Jose Banda WBC 8.2 103/ul Normal 4.0-11.0 [facility] Comment on above: Performed By: #### H IV12 #### [facility] [address] [place] [address] Dr. Juan Jose LIAO URINE PROFILEon 2 Bilirubin Ql (U) Negative Normal NEGATIVE [facility] Comment on above: Performed By: #### R PRQ #### [facility] [address] [place] [address] Dr. Juan Jose Banda Clarity (U) CLEAR Normal CLEAR [facility] Comment on above: Performed By: #### R PRQ #### [facility] [address] [place] [address] Dr. Juan Jose Banda Color (U) LT. YELLOW Normal YELLOW [facility] Comment on above: Performed By: #### R PRQ #### [facility] [address] [place] [address] Dr. Juan Jose TAVAREZ A micrscopic examination will be performed if indicated. Normal [facility] Comment on above: Performed By: #### R PRQ #### [facility] [address] [place] [address] Dr. Juan Jose Banda Glucose Ql (U) Negative Normal NEGATIVE [facility] Comment on above: Performed By: #### R PRQ #### [facility] [address] [place] [address] Dr. Juan Jose Banda Hemoglobin Ql (U) Negative Normal NEGATIVE [facility] Comment on above: Performed By: #### R PRQ #### [facility] [address] [address] [address] Juan Jose Banda Ketones Ql (U) TRACE Abnormal NEGATIVE [facility] Comment on above: Performed By: #### R PRQ #### [facility] [address] [place] [address] Dr. Juan Jose Banda LEUKOCYTES SMALL Abnormal NEGATIVE [facility] Comment on above: Performed By: #### R PRQ #### [facility] [address] [place] [address] Dr. Juan Jose Banda Nitrite Ql (U) Negative Normal NEGATIVE [facility] Comment on above: Performed By: #### R PRQ #### [facility] [address] [place] [address] Dr. Juan Jose Banda pH (U) 5.5 [pH] Normal 5-9 [facility] Comment on above: Performed By: #### R PRQ #### [facility] [address] [place] [address] Dr. Juan Jose Banda SPEC GRAVITY 1.025 Normal 1.005-<=1.025 [facility] Comment on above: Performed By: #### R PRQ #### [facility] [address] [place] [address] Dr. Juan Jose Banda UA PROTEIN Negative Normal NEGATIVE/ TRACE [facility] Comment on above: Performed By: #### R PRQ #### [facility] [address] [place] [address] Dr. Juan Jose Banda UR MICRO IND INDICATED Normal [facility] Comment on above: Performed By: #### R PRQ #### [facility] [address] [place] [address] Dr. Juan Jose Banda Urobilinogen Qn (U) 0.2 {Tyler'U}/dL Normal 0.2 - 1. 0 [facility] Comment on above: Performed By: #### R PRQ #### [facility] [address] [place] [address] Dr. Juan Jose Banda PREG QUANT HCGon 05-25-2022 HCG QUANT 3347 mIU/mL Normal [facility] Comment on above: Performed By: #### U RCX #### [facility] [address] [place] [address] Dr. Juan Jose Banda HCG RANGE SEE BELOW Normal [facility] Comment on above: Result Comment: 5-50 0.2-1 WEEK 50-500 1-2 WEEKS 100-5,000 2-3 WEEKS 500-10,000 3-4 WEEKS 1,000-50,000 4-5 WEEKS 10,000-100,000 5-6 WEEKS 15,000-200,000 6-8 WEEKS 10,000-100,000 2-3 MONTHS Performed By: #### U RCX #### [facility] [address] [place] [address] Dr. Juan Jose Badna PROF 14(COMP METB)on 022 Albumin [Mass/Vol] 3.7 g/dL Normal 3.4-5.0 [facility] Comment on above: Performed By: #### H IV12 #### [facility] [address] [place] [address] Dr. Juan Jose Banda Albumin/Globulin [Mass ratio] 1.4 {ratio} Normal [facility] Comment on above: Performed By: #### H IV12 #### [facility] [address] [place] [address] Dr. Juan Jose Banda ALP [Catalytic activity/Vol] 66 U/L Normal 46-116 [facility] Comment on above: Performed By: #### H IV12 #### [facility] [address] [place] [address] Dr. Juan Jose Banda ALT [Catalytic activity/Vol] 18 U/L Normal 14-59 [facility] Comment on above: Performed By: #### H IV12 #### [facility] [address] [place] [address] Dr. Juan Jose Banda Anion gap [Moles/Vol] 11.5 mmol/L Normal [facility] Comment on above: Performed By: #### H IV12 #### [facility] [address] [place] [address] Dr. Juan Jose Banda AST [Catalytic activity/Vol] 10 U/L Critically low 15-37 [facility] Comment on above: Performed By: #### H IV12 #### [facility] [address] [place] [address] Dr. Juan Jose Banda Bilirubin [Mass/Vol] 0.4 mg/dL Normal 0.2-1.0 [facility] Comment on above: Performed By: #### H IV12 #### [facility] [address] [place] [address] Dr. Juan Jose Banda Calcium [Mass/Vol] 8.3 mg/dL Critically low 8.5-10.1 [facility] Comment on above: Performed By: #### H IV12 #### [facility] [address] [address] [address] Juan Jose Banda Chloride [Moles/Vol] 104 mmol/L Normal 98-107 [facility] Comment on above: Performed By: #### H IV12 #### [facility] [address] [place] [address] Dr. Juan Jose Banda CO2 [Moles/Vol] 27.3 mmol/L Normal 21.0-32.0 [facility] Comment on above: Performed By: #### H IV12 #### [facility] [address] [place] [address] Dr. Juan Jose Banda Creatinine [Mass/Vol] 0.72 mg/dL Normal 0.55-1.02 [facility] Comment on above: Performed By: #### H IV12 #### [facility] [address] [place] [address] Dr. Juan Jose Banda EGFR-AF BURMESE >60 Normal >=60 [facility] Comment on above: Performed By: #### H IV12 #### [facility] [address] [place] [address] Dr. Juan Jose Banda EGFR-NON AF BURMESE >60 Normal >=60 [facility] Comment on above: Performed By: #### H IV12 #### [facility] [address] [place] [address] Dr. Juan Jose Banda Globulin (S) [Mass/Vol] 2.7 g/dL Normal [facility] Comment on above: Performed By: #### H IV12 #### [facility] [address] [address] [address] Juan Jose Banda Glucose [Mass/Vol] 95 mg/dL Normal 74-106 [facility] Comment on above: Performed By: #### H IV12 #### [facility] [address] [place] [address] Dr. Juan Jose Banda Potassium [Moles/Vol] 3.8 mmol/L Normal 3.5-5.1 [facility] Comment on above: Performed By: #### H IV12 #### [facility] [address] [place] [address] Dr. Juan Jose Banda Protein [Mass/Vol] 6.4 g/dL Normal 6.4-8.2 [facility] Comment on above: Performed By: #### H IV12 #### [facility] [address] [place] [address] Dr. Juan Jose Banda Sodium [Moles/Vol] 139 mmol/L Normal 136-145 [facility] Comment on above: Performed By: #### H IV12 #### [facility] [address] [place] [address] Dr. Juan Jose Banda Urea nitrogen [Mass/Vol] 9.0 mg/dL Normal 6.4-19.3 [facility] Comment on above: Performed By: #### H IV12 #### [facility] [address] [place] [address] Dr. Juan Jose Banda Urea nitrogen/Creatinine [Mass ratio] 12.5 mg/mg Normal [facility] Comment on above: Performed By: #### H IV12 #### [facility] [address] [place] [address] Dr. Juan Jose Banda URINE MICROSCOPIC ONLYon BACTERIA TRACE Abnormal NONE SEEN [facility] Comment on above: Performed By: #### R PRQ #### [facility] [address] [place] [address] Dr. Juan Jose Banda Bacteria identified Cx Nom (U) INDICATED Normal [facility] Comment on above: Performed By: #### R PRQ #### [facility] [address] [place] [address] Dr. Juan Jose Banda CAST NONE SEEN Normal NONE SEEN [facility] Comment on above: Performed By: #### R PRQ #### [facility] [address] [place] [address] Dr. Juan Jose Banda Crystals LM Nom (Urine sed) NONE SEEN Normal NONE SEEN [facility] Comment on above: Performed By: #### R PRQ #### [facility] [address] [place] [address] Dr. Juan Jose Banda Epithelial cells LM Ql (Urine sed) RARE Normal NONE SEEN /RARE [facility] Comment on above: Performed By: #### R PRQ #### [facility] [address] [address] [address] Juan Jose Banda MUCOUS NONE SEEN Normal NONE SEEN [facility] Comment on above: Performed By: #### R PRQ #### [facility] [address] [address] [address] Juan Jose Banda RBC 0-2 Normal 0-2 [facility] Comment on above: Performed By: #### R PRQ #### [facility] [address] [address] [address] Juan Jose Banda WBC 10-20 Abnormal NONE SEEN [facility] Comment on above: Performed By: #### R PRQ #### [facility] [address] [address] [address] Jose [address] ABD/PELVIS WO [...] ALICJA AVILA Date: 2022-04-29 03:19 Normal [facility] ER URINE PROFILEon 2 Bilirubin Ql (U) Negative Normal NEGATIVE [facility] Comment on above: Performed By: #### C BCMAN #### [facility] [address] [place] [address] Dr. Juan Jose Banda Clarity (U) SL CLOUDY Abnormal CLEAR [facility] Comment on above: Performed By: #### C BCJESSICA #### [facility] [address] [address] [address] Juan Jose Banda Color (U) YELLOW Normal YELLOW [facility] Comment on above: Performed By: #### C BCJESSICA #### [facility] [address] [place] [address] Dr. Juan Jose Banda ERUAHD A micrscopic examination will be performed if indicated. Normal [facility] Comment on above: Performed By: #### C BCJESSICA #### [facility] [address] [address] [address] Juan Jose Banda Glucose Ql (U) Negative Normal NEGATIVE [facility] Comment on above: Performed By: #### C OSORIO #### [facility] [address] [place] [address] Dr. Juan Jose Banda Hemoglobin Ql (U) Negative Normal NEGATIVE [facility] Comment on above: Performed By: #### C OSORIO #### [facility] [address] [place] [address] Dr. Juan Jose Banda Ketones Ql (U) Negative Normal NEGATIVE [facility] Comment on above: Performed By: #### C OSORIO #### [facility] [address] [place] [address] Dr. Juan Jose Banda LEUKOCYTES Negative Normal NEGATIVE [facility] Comment on above: Performed By: #### C OSORIO #### [facility] [address] [place] [address] Dr. Juan Jose Banda Nitrite Ql (U) Negative Normal NEGATIVE [facility] Comment on above: Performed By: #### C OSORIO #### [facility] [address] [address] [address] Juan Jose Banda pH (U) 6.0 [pH] Normal 5-9 [facility] Comment on above: Performed By: #### C OSORIO #### [facility] [address] [place] [address] Dr. Juan Jose Banda SPEC GRAVITY >=1.030 Abnormal 1.005-<=1.025 [facility] Comment on above: Performed By: #### C OSORIO #### [facility] [address] [address] [address] Juan Jose Banda UA PROTEIN Negative Normal NEGATIVE/ TRACE [facility] Comment on above: Performed By: #### C BCMAN #### [facility] [address] [address] [address] Juan Jose Banda UR MICRO IND NOT INDICATED Normal [facility] Comment on above: Performed By: #### C OSORIO #### [facility] [address] [address] [address] Juan Jose Banda Urobilinogen Qn (U) 0.2 {Tyler'U}/dL Normal 0.2 - 1. 0 [facility] Comment on above: Performed By: #### C OSORIO #### [facility] [address] [place] [address] Dr. Juan Jose Banda URon 04-29-2022 , QUAL Negative Normal NEGATIVE [facility] Comment on above: Performed By: #### C DILLONMAN #### [facility] [address] [place] [address] Dr. Juan Jose Banda PROCALCITONINon 04-13-2022 Procalcitonin 0.04 ng/mL Normal 0.00-0.08 [facility] Comment on above: Result Comment: . [...] obtained. Performed By: #### C OSORIO #### [facility] [address] [address] [address] Juan Jose Banda CBC AUTO DIFFon 04-10-2022 BASO # 0.0 103/ul Normal 0.0-0.1 [facility] Comment on above: Performed By: #### C BC #### [facility] [address] [place] [address] Dr. Juan Jose Banda Basophils/100 WBC (Bld) 0.3 % Normal 0.2-2.0 [facility] Comment on above: Performed By: #### C BC #### [facility] [address] [place] [address] Dr. Juan Jose Banda EO # 0.2 103/ul Normal 0.0-0.7 [facility] Comment on above: Performed By: #### C BC #### [facility] [address] [place] [address] Dr. uJan Jose Banda Eosinophils/100 WBC (Bld) 2.5 % Normal 0.9-7.0 [facility] Comment on above: Performed By: #### C BC #### [facility] [address] [place] [address] Dr. Juan Jose Banda Erythrocyte distribution width (RBC) [Ratio] 11.6 % Normal 11.0-15.0 [facility] Comment on above: Performed By: #### C BC #### [facility] [address] [place] [address] Dr. Juan Jose Banda Hematocrit (Bld) [Volume fraction] 38.2 % Normal 36.0-48.0 [facility] Comment on above: Performed By: #### C BC #### [facility] [address] [place] [address] Dr. Juan Jose Banda Hemoglobin (Bld) [Mass/Vol] 13.5 g/dL Normal 12.0-16.0 [facility] Comment on above: Performed By: #### C BC #### [facility] [address] [place] [address] Dr. Juan Jose Banda IG # 0.01 10e3/ul Normal 0.00-0.03 [facility] Comment on above: Performed By: #### C BC #### [facility] [address] [place] [address] Dr. Juan Jose Banda IG % 0.2 % Normal 0.0-0.5 [facility] Comment on above: Performed By: #### C BC #### [facility] [address] [place] [address] Dr. Juan Jose Banda LYMPH # 2.2 103/ul Normal 1.2-3.8 [facility] Comment on above: Performed By: #### C BC #### [facility] [address] [place] [address] Dr. Juan Jose Banda Lymphocytes/100 WBC (Bld) 33.3 % Normal 20.5-60.0 [facility] Comment on above: Performed By: #### C BC #### [facility] [address] [place] [address] Dr. Juan Jose Banda MANUAL DIFF REQ NO Normal [facility] Comment on above: Performed By: #### C BC #### [facility] [address] [place] [address] Dr. Juan Jose Banda MCH (RBC) [Entitic mass] 29.6 pg Normal 26.7-34.0 [facility] Comment on above: Performed By: #### C BC #### [facility] [address] [place] [address] Dr. Juan Jose Banda MCHC (RBC) [Mass/Vol] 35.3 g/dL Critically high 29.9-35.2 [facility] Comment on above: Performed By: #### C BC #### [facility] [address] [place] [address] Dr. Juan Jose Banda MCV (RBC) [Entitic vol] 83.8 fL Normal 81.0-99.0 [facility] Comment on above: Performed By: #### C BC #### [facility] [address] [place] [address] Dr. Juan Jose Banda MONO # 0.7 103/ul Normal 0.3-0.8 [facility] Comment on above: Performed By: #### C BC #### [facility] [address] [place] [address] Dr. Juan Jose Banda Monocytes/100 WBC (Bld) 10.2 % Normal 1.7-12.0 [facility] Comment on above: Performed By: #### C BC #### [facility] [address] [place] [address] Dr. Juan Jose Banda NEUT # 3.5 103/ul Normal 1.4-6.5 [facility] Comment on above: Performed By: #### C BC #### [facility] [address] [place] [address] Dr. Juan Jose Banda Neutrophils/100 WBC (Bld) 53.5 % Normal 43.0-75.0 [facility] Comment on above: Performed By: #### C BC #### [facility] [address] [place] [address] Dr. Juan Jose Banda Platelet mean volume (Bld) [Entitic vol] 11.9 fL Normal 9.5-13.5 [facility] Comment on above: Performed By: #### C BC #### [facility] [address] [place] [address] Dr. Juan Jose Banda PLT 200 103/ul Normal 150-450 [facility] Comment on above: Performed By: #### C BC #### [facility] [address] [place] [address] Dr. Juan Jose Banda RBC 4.56 106/ul Normal 4.20-5.40 [facility] Comment on above: Performed By: #### C BC #### [facility] [address] [place] [address] Dr. Juan Jose Banda WBC 6.5 103/ul Normal 4.0-11.0 [facility] Comment on above: Performed By: #### C BC #### [facility] [address] [place] [address] [address] ABD/PELV W [...] by: YO TO Date: 2022-04-10 08:37 Normal [facility] GROUP A STREP CULTUREon S. pyogenes Ag Ql (Unsp spec) Culture Observations: NEGATIVE FOR GROUP A STREPTOCOCCUS. Normal [facility] Comment on above: Performed By: #### U RCX #### [facility] [address] [place] [address] Dr. Juan Jose Banda LACTATE/LACTIC ACIDon 2021 Lactate [Moles/Vol] 0.9 mmol/L Normal 0.4-1.9 [facility] Comment on above: Performed By: #### U RCX #### [facility] [address] [address] [address] Juan Jose Banda Lactate [Moles/Vol] 2.5 mmol/L Critically high 0.4-1.9 [facility] Comment on above: Performed By: #### U RCX #### [facility] [address] [address] [address] Juan Jose Banda PREG HCG QUALon 04-10-2022 , QUAL Negative Normal NEGATIVE [facility] Comment on above: Performed By: #### S EDR #### [facility] [address] [address] [address] Juan Jose Banda PROF 14(COMP METB)on 022 Albumin [Mass/Vol] 4.3 g/dL Normal 3.4-5.0 [facility] Comment on above: Performed By: #### C DILLONMAN #### [facility] [address] [place] [address] Dr. Juan Jose Banda Albumin/Globulin [Mass ratio] 1.8 {ratio} Normal [facility] Comment on above: Performed By: #### C BCMAN #### [facility] [address] [place] [address] Dr. Juan Jose Banda ALP [Catalytic activity/Vol] 92 U/L Normal 46-116 [facility] Comment on above: Performed By: #### C BCMAN #### [facility] [address] [place] [address] Dr. Juan Jose Banda ALT [Catalytic activity/Vol] 20 U/L Normal 14-59 [facility] Comment on above: Performed By: #### C BCMAN #### [facility] [address] [address] [address] Juan Jose Banda Anion gap [Moles/Vol] 15.4 mmol/L Normal [facility] Comment on above: Performed By: #### C BCMAN #### [facility] [address] [place] [address] Dr. Juan Jose Banda AST [Catalytic activity/Vol] 17 U/L Normal 15-37 [facility] Comment on above: Performed By: #### C BCMAN #### [facility] [address] [address] [address] Juan Jose Banda Bilirubin [Mass/Vol] 1.2 mg/dL Critically high 0.2-1.0 [facility] Comment on above: Performed By: #### C BCMAN #### [facility] [address] [address] [address] Juan Jose Banda Calcium [Mass/Vol] 8.8 mg/dL Normal 8.5-10.1 [facility] Comment on above: Performed By: #### C BCMAN #### [facility] [address] [address] [address] Juan Jose Banda Chloride [Moles/Vol] 107 mmol/L Normal 98-107 [facility] Comment on above: Performed By: #### C BCMAN #### [facility] [address] [address] [address] Juan Jose Banda CO2 [Moles/Vol] 23.0 mmol/L Normal 21.0-32.0 [facility] Comment on above: Performed By: #### C BCMAN #### [facility] [address] [address] [address] Juan Jose Banda Creatinine [Mass/Vol] 0.95 mg/dL Normal 0.55-1.02 [facility] Comment on above: Performed By: #### C BCMAN #### [facility] [address] [address] [address] Juan Jose Banda Globulin (S) [Mass/Vol] 2.4 g/dL Normal [facility] Comment on above: Performed By: #### C BCMAN #### [facility] [address] [address] [address] Juan Jose Banda Glucose [Mass/Vol] 95 mg/dL Normal 74-106 [facility] Comment on above: Performed By: #### C BCMAN #### [facility] [address] [address] [address] Juan Jose Banda Potassium [Moles/Vol] 3.4 mmol/L Critically low 3.5-5.1 [facility] Comment on above: Performed By: #### C BCMAN #### [facility] [address] [address] [address] Juan Jose Banda Protein [Mass/Vol] 6.7 g/dL Normal 6.4-8.2 [facility] Comment on above: Performed By: #### C BCMAN #### [facility] [address] [address] [address] Juan Jose Banda Sodium [Moles/Vol] 142 mmol/L Normal 136-145 [facility] Comment on above: Performed By: #### C DILLONMAN #### [facility] [address] [address] [address] Juan Jose Banda Urea nitrogen [Mass/Vol] 13.0 mg/dL Normal 6.4-19.3 [facility] Comment on above: Performed By: #### C DILLONMAN #### [facility] [address] [address] [address] Juan Jose Banda Urea nitrogen/Creatinine [Mass ratio] 13.7 mg/mg Normal [facility] Comment on above: Performed By: #### C BCMAN #### [facility] [address] [address] [address] Juan Jose Banda SED RATE WESTERGRENon 2021 SED RATE 1 mm/hr Normal <=20 [facility] Comment on above: Performed By: #### S EDR #### [facility] [address] [address] [address] Juan Jose Banda STREPT SCREENon 04-10-2022 STREP SCREEN A Negative Normal NEGATIVE [facility] Comment on above: Performed By: #### U RCX #### [facility] [address] [address] [address] Juan Jose Banda AMYLASEon 04-07-2022 Amylase [Catalytic activity/Vol] 29 U/L Normal 25-115 [facility] Comment on above: Performed By: #### H IV12 #### [facility] [address] [address] [address] Juan Jose Banda CBC AUTO DIFFon 04-07-2022 BASO # 0.0 103/ul Normal 0.0-0.1 [facility] Comment on above: Performed By: #### R PRQ #### [facility] [address] [place] [address] Dr. Juan Jose Banda Basophils/100 WBC (Bld) 0.4 % Normal 0.2-2.0 [facility] Comment on above: Performed By: #### R PRQ #### [facility] [address] [place] [address] Dr. Juan Jose Banda EO # 0.1 103/ul Normal 0.0-0.7 [facility] Comment on above: Performed By: #### R PRQ #### [facility] [address] [place] [address] Dr. Juan Jose Banda Eosinophils/100 WBC (Bld) 1.4 % Normal 0.9-7.0 [facility] Comment on above: Performed By: #### R PRQ #### [facility] [address] [place] [address] Dr. Juan Jose Banda Erythrocyte distribution width (RBC) [Ratio] 11.5 % Normal 11.0-15.0 [facility] Comment on above: Performed By: #### R PRQ #### [facility] [address] [place] [address] Dr. Juan Jose Banda Hematocrit (Bld) [Volume fraction] 36.5 % Normal 36.0-48.0 [facility] Comment on above: Performed By: #### R PRQ #### [facility] [address] [place] [address] Dr. Juan Jose Banda Hemoglobin (Bld) [Mass/Vol] 13.0 g/dL Normal 12.0-16.0 [facility] Comment on above: Performed By: #### R PRQ #### [facility] [address] [place] [address] Dr. Juan Jose Banda IG # 0.02 10e3/ul Normal 0.00-0.03 [facility] Comment on above: Performed By: #### R PRQ #### [facility] [address] [place] [address] Dr. Juan Jose Banda IG % 0.3 % Normal 0.0-0.5 [facility] Comment on above: Performed By: #### R PRQ #### [facility] [address] [place] [address] Dr. Juan Jose Banda LYMPH # 2.4 103/ul Normal 1.2-3.8 [facility] Comment on above: Performed By: #### R PRQ #### [facility] [address] [place] [address] Dr. Juan Jose Banda Lymphocytes/100 WBC (Bld) 31.4 % Normal 20.5-60.0 [facility] Comment on above: Performed By: #### R PRQ #### [facility] [address] [place] [address] Dr. Juan Jose Banda MANUAL DIFF REQ NO Normal [facility] Comment on above: Performed By: #### R PRQ #### [facility] [address] [place] [address] Dr. Juan Jose Banda MCH (RBC) [Entitic mass] 29.8 pg Normal 26.7-34.0 [facility] Comment on above: Performed By: #### R PRQ #### [facility] [address] [place] [address] Dr. Juan Jose Banda MCHC (RBC) [Mass/Vol] 35.6 g/dL Critically high 29.9-35.2 [facility] Comment on above: Performed By: #### R PRQ #### [facility] [address] [place] [address] Dr. Juan Jose Banda MCV (RBC) [Entitic vol] 83.7 fL Normal 81.0-99.0 [facility] Comment on above: Performed By: #### R PRQ #### [facility] [address] [place] [address] Dr. Juan Jose Banda MONO # 0.9 103/ul Critically high 0.3-0.8 [facility] Comment on above: Performed By: #### R PRQ #### [facility] [address] [place] [address] Dr. Juan Jose Banda Monocytes/100 WBC (Bld) 11.1 % Normal 1.7-12.0 [facility] Comment on above: Performed By: #### R PRQ #### [facility] [address] [place] [address] Dr. Juan Jose Banda NEUT # 4.3 103/ul Normal 1.4-6.5 [facility] Comment on above: Performed By: #### R PRQ #### [facility] [address] [place] [address] Dr. Juan Jose Banda Neutrophils/100 WBC (Bld) 55.4 % Normal 43.0-75.0 [facility] Comment on above: Performed By: #### R PRQ #### [facility] [address] [place] [address] Dr. Juan Jose Banda Platelet mean volume (Bld) [Entitic vol] 11.6 fL Normal 9.5-13.5 [facility] Comment on above: Performed By: #### R PRQ #### [facility] [address] [place] [address] Dr. Juan Jose Banda PLT 187 103/ul Normal 150-450 [facility] Comment on above: Performed By: #### R PRQ #### [facility] [address] [place] [address] Dr. Juan Jose Banda RBC 4.36 106/ul Normal 4.20-5.40 [facility] Comment on above: Performed By: #### R PRQ #### [facility] [address] [place] [address] Dr. Juan Jose Banda WBC 7.7 103/ul Normal 4.0-11.0 [facility] Comment on above: Performed By: #### R PRQ #### [facility] [address] [place] [address] Dr. Juan Jose Banda ER URINE PROFILEon 2 Bilirubin Ql (U) SMALL Abnormal NEGATIVE [facility] Comment on above: Performed By: #### U RCX #### [facility] [address] [place] [address] Dr. Juan Jose Banda Clarity (U) CLEAR Normal CLEAR [facility] Comment on above: Performed By: #### U RCX #### [facility] [address] [place] [address] Dr. Juan Jose Banda Color (U) YELLOW Normal YELLOW [facility] Comment on above: Performed By: #### U RCX #### [facility] [address] [place] [address] Dr. Juan Jose TAVAREZ A micrscopic examination will be performed if indicated. Normal [facility] Comment on above: Performed By: #### U RCX #### [facility] [address] [place] [address] Dr. Juan Jose Banda Glucose Ql (U) Negative Normal NEGATIVE [facility] Comment on above: Performed By: #### U RCX #### [facility] [address] [place] [address] Dr. Juan Jose Banda Hemoglobin Ql (U) Negative Normal NEGATIVE [facility] Comment on above: Performed By: #### U RCX #### [facility] [address] [place] [address] Dr. Juan Jose Banda Ketones Ql (U) 40 mg/dl Abnormal NEGATIVE [facility] Comment on above: Performed By: #### U RCX #### [facility] [address] [place] [address] Dr. Juan Jose Banda LEUKOCYTES Negative Normal NEGATIVE [facility] Comment on above: Performed By: #### U RCX #### [facility] [address] [place] [address] Dr. Juan Jose Banda Nitrite Ql (U) Negative Normal NEGATIVE [facility] Comment on above: Performed By: #### U RCX #### [facility] [address] [place] [address] Dr. Juan Jose Banda pH (U) 5.5 [pH] Normal 5-9 [facility] Comment on above: Performed By: #### U RCX #### [facility] [address] [place] [address] Dr. Juan Jose Banda SPEC GRAVITY 1.030 Abnormal 1.005-<=1.025 [facility] Comment on above: Performed By: #### U RCX #### [facility] [address] [place] [address] Dr. Juan Jose Banda UA PROTEIN Negative Normal NEGATIVE/ TRACE [facility] Comment on above: Performed By: #### U RCX #### [facility] [address] [place] [address] Dr. Juan Jose Banda UR MICRO IND NOT INDICATED Normal [facility] Comment on above: Performed By: #### U RCX #### [facility] [address] [place] [address] Dr. Juan Jose Banda Urobilinogen Qn (U) 0.2 {Tyler'U}/dL Normal 0.2 - 1. 0 [facility] Comment on above: Performed By: #### U RCX #### [facility] [address] [place] [address] Dr. Juan Jose Banda LIPASEon 04-07-2022 Lipase [Catalytic activity/Vol] 77.0 U/L Normal 73.0-393.0 [facility] Comment on above: Performed By: #### H IV12 #### [facility] [address] [place] [address] Dr. Juan Jose Banda URon 04-07-2022 , QUAL Negative Normal NEGATIVE [facility] Comment on above: Performed By: #### U RCX #### [facility] [address] [place] [address] Dr. Juan Jose Banda PROF 14(COMP METB)on 022 Albumin [Mass/Vol] 4.4 g/dL Normal 3.4-5.0 [facility] Comment on above: Performed By: #### H IV12 #### [facility] [address] [place] [address] Dr. Juan Jose Banda Albumin/Globulin [Mass ratio] 1.5 {ratio} Normal [facility] Comment on above: Performed By: #### H IV12 #### [facility] [address] [place] [address] Dr. Juan Jose Banda ALP [Catalytic activity/Vol] 97 U/L Normal 46-116 [facility] Comment on above: Performed By: #### H IV12 #### [facility] [address] [address] [address] Juan Jose Banda ALT [Catalytic activity/Vol] 16 U/L Normal 14-59 [facility] Comment on above: Performed By: #### H IV12 #### [facility] [address] [address] [address] Juan Jose Banda Anion gap [Moles/Vol] 15.4 mmol/L Normal [facility] Comment on above: Performed By: #### H IV12 #### [facility] [address] [address] [address] Juan Jose Banda AST [Catalytic activity/Vol] 19 U/L Normal 15-37 [facility] Comment on above: Performed By: #### H IV12 #### [facility] [address] [address] [address] Juan Jose Banda Bilirubin [Mass/Vol] 0.9 mg/dL Normal 0.2-1.0 [facility] Comment on above: Performed By: #### H IV12 #### [facility] [address] [address] [address] Juan Jose Banda Calcium [Mass/Vol] 9.2 mg/dL Normal 8.5-10.1 [facility] Comment on above: Performed By: #### H IV12 #### [facility] [address] [place] [address] Dr. Juan Jose Banda Chloride [Moles/Vol] 107 mmol/L Normal 98-107 [facility] Comment on above: Performed By: #### H IV12 #### [facility] [address] [address] [address] Juan Jose Banda CO2 [Moles/Vol] 22.2 mmol/L Normal 21.0-32.0 [facility] Comment on above: Performed By: #### H IV12 #### [facility] [address] [place] [address] Dr. Juan Jose Banda Creatinine [Mass/Vol] 0.94 mg/dL Normal 0.55-1.02 [facility] Comment on above: Performed By: #### H IV12 #### [facility] [address] [address] [address] Juan Jose Banda EGFR-AF BURMESE >60 Normal >=60 [facility] Comment on above: Performed By: #### H IV12 #### [facility] [address] [place] [address] Dr. Juan Jose Banda EGFR-NON AF BURMESE >60 Normal >=60 [facility] Comment on above: Performed By: #### H IV12 #### [facility] [address] [address] [address] Juan Jose Banda Globulin (S) [Mass/Vol] 2.9 g/dL Normal [facility] Comment on above: Performed By: #### H IV12 #### [facility] [address] [place] [address] Dr. Juan Jose Banda Glucose [Mass/Vol] 93 mg/dL Normal 74-106 [facility] Comment on above: Performed By: #### H IV12 #### [facility] [address] [address] [address] Juan Jose Banda Potassium [Moles/Vol] 3.6 mmol/L Normal 3.5-5.1 [facility] Comment on above: Performed By: #### H IV12 #### [facility] [address] [place] [address] Dr. Juan Jose Banda Protein [Mass/Vol] 7.3 g/dL Normal 6.4-8.2 [facility] Comment on above: Performed By: #### H IV12 #### [facility] [address] [address] [address] Juan Jose Banda Sodium [Moles/Vol] 141 mmol/L Normal 136-145 [facility] Comment on above: Performed By: #### H IV12 #### [facility] [address] [address] [address] Juan Jose Banda Urea nitrogen [Mass/Vol] 14.0 mg/dL Normal 6.4-19.3 [facility] Comment on above: Performed By: #### H IV12 #### [facility] [address] [place] [address] Dr. Juan Jose Banda Urea nitrogen/Creatinine [Mass ratio] 14.9 mg/mg Normal [facility] Comment on above: Performed By: #### H IV12 #### [facility] [address] [place] [address] Dr. Juan Jose Banda HCG-BETA SUBUNIT QUANTon hCG,Beta Subunit,Qnt,Serum <1 Normal [facility] Comment on above: Result Comment: Fema le (Non-) 0 - 5 (Postmenopausal) 0 - 8 . Female () Weeks of Gestation 3 6 - 71 4 10 - 750 5 250 - 0210 6 356 - 86479 7 3413 -[id number] 8 33634 -[phone] 9 73006 -[phone] 10 38388 -236031 12 38155 -394109 14 16907 - 25778 15 46311 - 19933 16 1564 - 30309 17 0698 - 18973 18 6160 - 84842 Serena ECLIA methodology Performed By: #### R PRQ #### [facility] [address] [place] [address] Dr. Juan Jose Banda Vital Signs Date Time Vital Sign Value Performing Clinician Faci lity 04-29-2025 15:42-0400 Body mass index (BMI) [Ratio] 24.37 kg/m2 Wolfgang AppLearn DO Work Phone: [facility] 04-29-2025 15:42-0400 Body weight 68.49 kg Wolfgang Yasmin DO Work Phone: [facility] 04-29-2025 15:42-0400 Diastolic blood pressure 68 mm[Hg] Wolfgang Yasmin DO Work Phone: [facility] 04-29-2025 15:42-0400 Systolic blood pressure 104 mm[Hg] Wolfgang Yasmin DO Work Phone: [facility] 04-17-2025 15:25-0400 Body mass index (BMI) [Ratio] 24.45 kg/m2 Elvia Calvillo [employer] Work Phone: [facility] 04-17-2025 15:25-0400 Body weight 68.72 kg Elvia Calvillo [employer] Work Phone: [facility] 04-17-2025 15:25-0400 Diastolic blood pressure 70 mm[Hg] Elvia Rajinder [employer] Work Phone: [facility] 04-17-2025 15:25-0400 Systolic blood pressure 120 mm[Hg] Elvia Rajinder [employer] Work Phone: [facility] 04-03-2025 15:58-0400 Body mass index (BMI) [Ratio] 23.53 kg/m2 Wolfgang Yasmin DO Work Phone: [facility] 04-03-2025 15:58-0400 Body weight 66.13 kg Wolfgang Yasmin DO Work Phone: [facility] 04-03-2025 15:58-0400 Diastolic blood pressure 60 mm[Hg] Wolfgang Yasmin DO Work Phone: [facility] 04-03-2025 15:58-0400 Systolic blood pressure 100 mm[Hg] Wolfgang Yasmin DO Work Phone: [facility] 02-25-2025 15:21-0400 Body mass index (BMI) [Ratio] 23.69 kg/m2 Wolfgang Yasmin DO Work Phone: [facility] 02-25-2025 15:21-0400 Body weight 66.59 kg Wolfgang Yasmin DO Work Phone: [facility] 02-25-2025 15:21-0400 Diastolic blood pressure 60 mm[Hg] Wolfgang Yasmin DO Work Phone: [facility] 02-25-2025 15:21-0400 Systolic blood pressure 108 mm[Hg] Wolfgang Yasmin DO Work Phone: [facility] 01-01-2025 13:43-0400 Body mass index (BMI) [Ratio] 21.95 kg/m2 Wolfgang Yasmin DO Work Phone: [facility] 01-01-2025 13:43-0400 Body weight 61.69 kg Wolfgang Yasmin DO Work Phone: [facility] 01-01-2025 13:43-0400 Diastolic blood pressure 58 mm[Hg] Wolfgang Yasmin DO Work Phone: [facility] 01-01-2025 13:43-0400 Systolic blood pressure 108 mm[Hg] Wolfgang Yasmin DO Work Phone: [facility] 12-06-2024 13:24-0400 Body mass index (BMI) [Ratio] 22.11 kg/m2 Nom Nurse [facility] 12-06-2024 13:24-0400 Body weight 62.14 kg [facility] Nurse [facility] 12-06-2024 13:24-0400 Diastolic blood pressure 70 mm[Hg] [facility] Nurse [facility] 12-06-2024 13:24-0400 Systolic blood pressure 120 mm[Hg] [facility] Nurse [facility] 11-08-2024 11:15-0400 Body mass index (BMI) [Ratio] 21.69 kg/m2 Wolfgang Yasmin DO Work Phone: [facility] 11-08-2024 11:15-0400 Body weight 60.96 kg Wolfgang Yasmin DO Work Phone: [facility] 11-08-2024 11:15-0400 Diastolic blood pressure 70 mm[Hg] Wolfgang Yasmin DO Work Phone: [facility] 11-08-2024 11:15-0400 Systolic blood pressure 120 mm[Hg] Wolfgang Yasmin DO Work Phone: [facility] 10-18-2023 10:03-0400 Body height 175.3 cm Viki Trevizooll MEDICAL DIAGNOSTIC RADIOGRAPHER-SUPERVISOR [employer] Work Phone: [facility] 10-18-2023 10:03-0400 Body mass index (BMI) [Ratio] 19.73 kg/m2 Viki Trevizooll MEDICAL DIAGNOSTIC RADIOGRAPHER-SUPERVISOR [employer] Work Phone: [facility] 10-18-2023 10:03-0400 Body weight 60.6 kg Viki Jorge MEDICAL DIAGNOSTIC RADIOGRAPHER-SUPERVISOR [employer] Work Phone: [facility] 10-18-2023 10:03-0400 Diastolic blood pressure 62 mm[Hg] Viki Patel MEDICAL DIAGNOSTIC RADIOGRAPHER-SUPERVISOR [employer] Work Phone: [facility] 10-18-2023 10:03-0400 Heart rate 74 /min Viki Patel MEDICAL DIAGNOSTIC RADIOGRAPHER-SUPERVISOR [employer] Work Phone: [facility] 10-18-2023 10:03-0400 Systolic blood pressure 123 mm[Hg] Viki Patel MEDICAL DIAGNOSTIC RADIOGRAPHER-SUPERVISOR [employer] Work Phone: [facility] 09-28-2023 09:20-0500 Body height 175.3 cm Pm 2 [facility] 09-28-2023 09:20-0500 Body mass index (BMI) [Ratio] 19.64 kg/m2 Pm 2 [facility] 09-28-2023 09:20-0500 Body weight 60.33 kg Pm 2 [facility] Encounters Encounter Date Encounter Type Care Provider Facility Start: 04-29-2025 End: 04-29-2025 Office outpatient visit 15 minutes Wolfgang Yasmin DO Work Phone: [facility] Comment on above: Third trimester preg elbert ([facility]); 29 weeks gestation of ([facility]); Psychogenic nonepileptic seizure ; Diabetes mellitus screening Start: 04-29-2025 End: 04-29-2025 ambulatory WOLFGANG YASMIN Not Available Start: 04-29-2025 End: 04-29-2025 Bamboo flowsheet Wolfgang Yasmin DO Work Phone: [facility] Start: 04-29-2025 End: 04-29-2025 Bamboo flowsheet Wolfgang Yasmin DO Work Phone: [facility] Start: 04-17-2025 End: 04-17-2025 ambulatory ELVIA CALVILLO Not Available Start: 04-17-2025 End: 04-17-2025 Office outpatient visit 15 minutes Elvia Calvillo [employer] Work Phone: [facility] Comment on above: Third trimester preg elbert ([facility]); 28 weeks gestation of ([facility]) Start: 04-17-2025 End: 04-17-2025 Bamboo flowsheet Elvia Calvillo NP Work Phone: [facility] Start: 04-17-2025 End: 04-17-2025 Bamboo flowsheet Elvia Calvillo [employer] Work Phone: [facility] Start: 04-03-2025 End: 04-03-2025 ambulatory WOLFGANG YASMIN Not Available Start: 04-03-2025 End: 04-03-2025 Office outpatient visit 15 minutes Wolfgang Yasmin DO Work Phone: [facility] Comment on above: Anxiety, generalized (Primary Dx); Second trimester ([facility]); 26 weeks gestation of ([facility]); History of psychogenic nonepileptic seizure Start: 04-03-2025 End: 04-03-2025 Bamboo flowsheet Wolfgang Yasmin DO Work Phone: [facility] Start: 04-03-2025 End: 04-03-2025 Bamboo flowsheet Wolfgang Yasmin DO Work Phone: [facility] Start: 03-20-2025 End: 03-20-2025 Office outpatient visit 15 minutes Gogo MARTINEZ Work Phone: [facility] Comment on above: Second trimester pre gnancy ([facility]); 24 weeks gestation of ([facility]); Diabetes mellitus screening; Yeast infection; BV (bacterial vaginosis); Urinary tract infection without hematuria, site unspecified Start: 03-20-2025 End: 03-20-2025 ambulatory GOGO PANG Not Available Start: 03-20-2025 End: 03-20-2025 Bamboo flowsheet oGgo MARTINEZ Work Phone: [facility] Start: 03-20-2025 End: 03-20-2025 Bamboo flowsheet Gogo MARTINEZ Work Phone: [facility] Start: 02-25-2025 End: 02-25-2025 Office outpatient visit 15 minutes Wolfgang Yasmin DO Work Phone: [facility] Comment on above: Second trimester pre gnancy ([facility]); 20 weeks gestation of ([facility]) Start: 02-25-2025 End: 02-25-2025 ambulatory WOLFGANG YASMIN Not Available Start: 01-29-2025 End: 01-29-2025 Bamboo flowsheet Gogo MARTINEZ Work Phone: [facility] Start: 01-29-2025 End: 02-04-2025 Bamboo flowsheet Gogo MARTINEZ Work Phone: [facility] Start: 01-29-2025 End: 02-04-2025 Clinisync Result Encounter Gogo MARTINEZ Work Phone: [facility] Unsolicited Start: 01-29-2025 End: 01-30-2025 External Result Encounter Gogo MARTINEZ Work Phone: [facility] Unsolicited Start: 01-29-2025 End: 01-29-2025 Office outpatient visit 15 minutes Gogo MARTINEZ Work Phone: [facility] Comment on above: Well woman exam with routine gynecological exam; Second trimester ([facility]); 16 weeks gestation of ([facility]); Vaginal discharge; STD exposure; Screening, , for anatomic survey ([facility]) Start: 01-29-2025 End: 01-29-2025 Patient encounter procedure Gogo MARTINEZ Work Phone: [facility] Work Phone: Start: 01-29-2025 End: 01-29-2025 ambulatory GOGO PANG Not Available Start: 01-01-2025 End: 01-01-2025 Bamboo flowsheet Wolfgang Yasmin DO Work Phone: [facility] Start: 01-01-2025 End: 01-01-2025 Bamboo flowsheet Wolfgang Yasmin DO Work Phone: [facility] Start: 01-01-2025 End: 01-01-2025 Office outpatient visit 15 minutes Wolfgang Yasmin DO Work Phone: [facility] Comment on above: First trimester preg elbetr; 12 weeks gestation of ; History of psychogenic nonepileptic seizure Start: 01-01-2025 End: 01-01-2025 ambulatory WOLFGANG YASMIN Not Available Start: 12-25-2024 ambulatory Shivam Delgado acility:[facility] Start: 12-07-2024 End: 12-07-2024 Clinisync Result Encounter Wolfgang Yasmin DO Work Phone: [facility] Unsolicited Start: 12-07-2024 End: 12-07-2024 Clinisync Result Encounter Wolfgang Yasmin DO Work Phone: [facility] Unsolicited Start: 12-06-2024 End: 12-06-2024 Office outpatient visit 5 minutes [facility] Yasmin Nurse [facility] Comment on above: GA: 9w1d Start: 12-06-2024 End: 12-06-2024 ambulatory WOLFGANG YASMIN Not Available Start: 11-08-2024 End: 11-08-2024 Bamboo flowsheet Wolfgang [...] DO Work Phone: [facility] Start: 11-03-2023 Telephone encounter Tessa Roberts CMA [facility] Start: 10-18-2023 End: 10-18-2023 ambulatory [facility] Start: 10-18-2023 End: 10-18-2023 Postop follow up visit related to original px [facility] MEDICAL DIAGNOSTIC RADIOGRAPHER-SUPERVISOR [employer] Work Phone: [facility] Comment on above: Status post laparosc opic cholecystectomy (Primary Dx) Start: 10-03-2023 End: 10-03-2023 Evaluation and management of inpatient YO Juan Manuel ANTONELLA [facility] Start: 10-03-2023 End: 10-03-2023 Evaluation and management of inpatient WILMAR GAMA [facility] Start: 09-28-2023 End: 09-29-2023 ambulatory YO BERMAN [facility] Start: 09-28-2023 Encounter for other preprocedural examination [facility] Start: 09-28-2023 End: 09-28-2023 Patient encounter procedure [facility] Pre-Admission Testing 2 [facility] Comment on above: Preop examination (P rimary Dx); Asthma, unspecified asthma severity, unspecified whether complicated, unspecified whether persistent Start: 09-28-2023 End: 09-28-2023 Preprocedural examination done [facility] 2 [facility] Start: 09-27-2023 End: 09-27-2023 ambulatory [facility] Start: 09-27-2023 End: 09-27-2023 Office outpatient new 30 minutes Wilmar Gama MD Work Phone: [facility] Comment on above: Biliary colic (Prima ry Dx) Start: 09-13-2023 Telephone encounter Gurmeet Gama MD Work Phone: [facility] Start: 08-30-2023 End: 08-31-2023 Evaluation and management of inpatient [facility] Start: 08-24-2023 ambulatory [facility] Start: 08-23-2023 Telephone encounter Paola Temple CMA [facility] Start: 08-23-2023 ambulatory [facility] Start: 08-16-2023 Telephone encounter Alicja Beltre DO Work Phone: [facility] Start: 07-29-2023 ambulatory [facility] Facility:[facility] [place] Start: 07-26-2023 End: 07-27-2023 ambulatory [facility] Facility: [place] Start: 07-26-2023 End: 07-26-2023 Patient encounter procedure Alicja LINARES [facility] [place] Start: 07-12-2023 ambulatory Rashard Montez Facility:[facility] Start: 06-27-2023 ambulatory Rashard Montez Facility:[facility] Start: 01-05-2023 Evaluation and manag [...] Facility:[facility] Start: 08-25-2022 End: 08-25-2022 ambulatory GOGO PANG . Facility:[facility] Start: 08-24-2022 End: 08-25-[address] WOLFGANG HOFFMAN . Facility:[facility] Start: 06-25-2022 End: 06-25-[address] RASHARD MONTEZ . Facility:[facility] Start: 06-20-2022 End: 06-20-2022 ambulatory CASSANDRA GARCIA . Facility:[facility] Start: 06-18-2022 End: 06-19-[address] WOLFGANG HOFFMAN . Facility: Start: 06-02-2022 End: 06-02-[address] GUSTAVO VIDAL Facility:[facility] Start: 05-25-2022 End: 05-25-2022 ambulatory GEORGINA HILARIO Facility:[facility] Start: 04-29-2022 End: 04-29-[address] GUSTAVO VIDAL Facility:[facility] Start: 04-10-2022 End: 04-10-2022 ambulatory GEORGINA HILARIO Facility:[facility] Start: 04-07-2022 End: 04-07-[address] GUSTAVO VIDAL Facility:[facility] Start: 04-07-2022 End: 04-07-2022 ambulatory GEORGINA HILARIO Facility:[facility] Start: 02-22-2022 End: 02-23-[address] RASHARD MONTEZ . Facility: Procedures Date Procedure Procedure Detail Performing Clinician Start: 04-29-2025 Urnls dip stick/tablet rgnt non-auto w/o micrscp Wolfgang Hoffman DO Work Phone: Start: 04-17-2025 Urnls dip stick/tablet rgnt non-auto w/o micrscp Elvia Rajinder [employer] Work Phone: Start: 03-20-2025 Urnls dip stick/tablet rgnt non-auto w/o micrscp Elvia Rajinder [employer] Work Phone: Start: 02-25-2025 Urnls dip stick/tablet rgnt non-auto w/o micrscp Wolfgang Hoffman DO Work Phone: Start: 01-29-2025 RECURRENT VAGINITIS (HTRX) Gogo MARTINEZ Work Phone: Start: 01-29-2025 IGP,APTIMA HPV,AGE GDLN Gogo MARTINEZ Work Phone: Start: 12-07-2024 BOX TEST Wolfgang Hoffman DO Work Phone: Start: 12-06-2024 Urnls dip stick/tablet rgnt non-auto w/o micrscp Wolfgang Hoffman DO Work Phone: Start: 11-02-2024 [facility] PREG QUANT HCG Wolfgang Yasmin DO Work Phone: Start: 10-01-2024 ALL CBC WITH AUTO DIFF Wolfgang Hoffman DO Work Phone: Appendectomy Alicja LINARES History of cholecystectomy Status post laparoscopic cholecystectomy Viki Patel MEDICAL DIAGNOSTIC RADIOGRAPHER-SUPER[employer] Work Phone: Plan of Treatment Date Care Activity Detail Author Start: 03-25-2026 DTaP,Tdap and Td Vac cines (7 - Td or Tdap) DTaP,Tdap and Td Vaccines (7 - Td or Tdap) [facility] Start: 07-17-2025 End: 07-17-2025 ambulatory 07/17/2025 3:40 PM EST Visit [facility] [address] [place] [phone] Wolfgang Hoffman, DO [address] [place] [address] [facility] Start: 05-15-2025 End: 05-15-2025 Patient encounter procedure 05/15/2025 3:40 PM EDT Routine [facility] [address] [place] [phone] Elvia Calvillo, DIST[employer] [address] [place] [phone] [facility] Start: 04-29-2025 End: 04-29-2025 Patient encounter procedure 04/29/2025 3:20 PM EDT Routine [facility] [address] [place] [phone] Wolfgang Hoffman, DO [address] [place] [address] Arrived [facility] Comment on above: Arrived Start: 04-29-2025 End: 04-29-2026 CBC W Auto Differential panel - Blood CBC and differential Lab Routine Diabetes mellitus screening Expected: 04/29/2025 (Approximate), Expires: 04/29/2026 [facility] Work Phone: Comment on above: Expected: 04/29/2025 (Approximate), Expires: 04/29/2026 Start: 04-17-2025 End: 04-17-2025 Patient encounter procedure 04/17/2025 3:40 PM EDT Routine [facility] [address] [place] [phone] Wolfgang Hoffman, [address] [place], [place] [id number] [facility] Start: 04-08-2025 Influenza vaccination Influenza Vacc ine (#1) [facility] Start: 04-03-2025 End: 04-03-2025 Patient encounter procedure 04/03/2025 3:40 PM EDT Routine [facility] [address] [place] [phone] Wolfgang Hoffman, [address] [place], [place] [id number] [facility] Start: 03-20-2025 End: 03-20-2025 Patient encounter procedure 03/20/2025 3:40 PM EDT Routine [facility] [address] [place] [phone] Gogo Pang PA [address] [place], [place] [id number] Arrived [facility] Comment on above: Arrived Start: 03-20-2025 End: 03-20-2026 CBC panel - Blood by Automated count CBC Lab Routine Diabetes mellitus screening Expected: 03/20/2025 (Approximate), Expires: 03/20/2026 [facility] Work Phone: Comment on above: Expected: 03/20/2025 (Approximate), Expires: 03/20/2026 Start: 03-20-2025 End: 03-20-2026 Measurement of glucose 1 hour after glucose challenge for glucose tolerance test Glucose tolerance, 1 hour Lab Routine Diabetes mellitus screening Expected: 03/20/2025 (Approximate), Expires: 03/20/2026 [facility] Comment on above: Expected: 03/20/2025 (Approximate), Expires: 03/20/2026 Start: 02-25-2025 End: 02-25-2025 Patient encounter procedure 02/25/2025 3:40 PM EDT Routine [facility] [address] [place] [phone] Wolfgang Hoffman, DO [address] [place] [address] [facility] Start: 02-25-2025 End: 02-25-2025 Professional / ancillary services management 02/25/2025 2:30 PM EDT Ancillary Procedure [facility] [address] [phone] [facility] Start: 01-29-2025 End: 07-31-2025 Alpha fetoprotein, maternal Alpha fetoprotein, maternal Lab Routine Second trimester ([facility]) 16 weeks gestation of ([facility]) Expected: 01/29/2025 (Approximate), Expires: 07/31/2025 [facility] Comment on above: Expected: 01/29/2025 (Approximate), Expires: 07/31/2025 Start: 01-29-2025 End: 05-01-2025 US for US OB 14+ weeks anatomy scan Imaging Routine Second trimester ([facility]) 16 weeks gestation of ([facility]) Screening, , for anatomic survey ([facility]) Expected: 01/29/2025, Expires: 05/01/2025 [facility] Comment on above: Expected: 01/29/2025 , Expires: 05/01/2025 Start: 01-29-2025 End: 01-29-2025 Patient encounter procedure [facility] Comment on above: Arrived Start: 01-08-2025 End: 01-08-2025 Patient encounter procedure 01/08/2025 2:10 PM EDT Routine [facility] [address] [place] [address] Wolfgang Hoffman, DO [address] [place] [address] [facility] Start: 01-01-2025 End: 01-01-2025 Patient encounter procedure 01/01/2025 1:40 PM EDT Routine [facility] [address] [place] [address] Wolfgang Hoffman, DO [address] [place] [address] Arrived [facility] Comment on above: Arrived Start: 12-06-2024 End: 12-06-2025 ABO/Rh ABO/Rh Lab Routine Missed menses , unspecified gestational age Expected: 12/06/2024 (Approximate), Expires: 12/06/2025 [facility] Comment on above: Expected: 12/06/2024 (Approximate), Expires: 12/06/2025 Start: 12-06-2024 End: 12-06-2025 Blood type and Indirect antibody screen panel - Blood Type and screen Lab Routine Missed menses , unspecified gestational age Expected: 12/06/2024 (Approximate), Expires: 12/06/2025 [facility] Comment on above: Expected: 12/06/2024 (Approximate), Expires: 12/06/2025 Start: 12-06-2024 End: 12-06-2025 Drugs of abuse panel - Urine by Screen method Rapid drug screen, urine Lab Routine , unspecified gestational age Encounter for supervision of normal first in first trimester Expected: 12/06/2024 (Approximate), Expires: 12/06/2025 [facility] Comment on above: Expected: 12/06/2024 (Approximate), Expires: 12/06/2025 Start: 12-06-2024 End: 12-06-2024 ambulatory 12/06/2024 1:00 PM EDT Initial [facility] [address] [place] [phone] [facility] Start: 12-06-2024 End: 12-06-2024 Professional / ancillary services management 12/06/2024 12:30 PM EDT Ancillary Procedure [facility] [address] [place] [phone] [facility] Start: 11-30-2024 End: 03-01-2025 US Pelvis transvaginal US OB transvaginal Imaging Routine Missed menses Expected: 11/30/2024, Expires: 03/01/2025 [facility] Work Phone: Comment on above: Expected: 11/30/2024 , Expires: 03/01/2025 Start: 11-12-2024 End: 11-12-2024 Patient encounter procedure 11/12/2024 2:00 PM EDT Office Visit [facility] [address] [place] [phone] Wolfgang Hoffman, DO [facility] [place] [address] [facility] Start: 11-08-2024 End: 11-08-2024 Patient encounter procedure 11/08/2024 11:30 AM EDT Office Visit [facility] [address] [place] [phone] Wolfgang Hoffman, DO [address] [place], [place] [id number] Arrived [facility] Comment on above: Arrived Start: 10-17-2024 Adult BMI Screening Adult BMI Screen ing [facility] Start: 10-17-2024 Tobacco Screening Tobacco Screening [facility] Start: 10-03-2024 Adult BMI Screening Adult BMI Screen ing [facility] Start: 10-03-2024 Tobacco Screening Tobacco Screening [facility] Start: 09-28-2024 Adult BMI Screening Adult BMI Screen ing [facility] Start: 09-28-2024 Tobacco Screening Tobacco Screening [facility] Start: 09-27-2024 Tobacco Screening Tobacco Screening [facility] Start: 09-25-2024 End: 09-25-2024 Patient encounter procedure 09/25/2024 3:00 PM EST Office Visit [facility] [address] [place] [address] Wolfgang Hoffman DO [address] [place] [address] Arrived [facility] Comment on above: Arrived Start: 09-25-2024 End: 09-25-2025 DHEA DHEA Lab Routine PCOS (polycystic ovarian syndrome) Expected: 09/25/2024 (Approximate), Expires: 09/25/2025 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 [employer] [address] [facility] [place] [address] [facility] General Surgery Start: 10-03-2023 End: 10-03-2023 Admission to same day surgery center 10/03/2023 11:00 AM EST - 10/03/2023 12:55 PM EST Surgery [facility] - Surgery [address] [place] [phone] Wilmar Gama MD [address] [place] [phone] DAVINCI CHOLECYSTECTOMY [25035 (CPT )] [facility] Surgery Comment on above: DAVINCI CHOLECYSTECT NATI [31722 (CPT )] Start: 10-03-2023 End: 10-03-2023 Laparoscopy surg cholecystectomy DAVINCI CHOLECYSTECTOMY biliary colic 10/03/2023 11:00 AM [facility] Start: 10-03-2023 Subsequent hospital visit by physician 10/03/2023 11:00 AM EST Hospital Encounter [facility] Surgery [address] [place] [address] Wilmar Gama MD [address] [place] [phone] [facility] Start: 09-27-2023 End: 09-27-2023 Patient encounter procedure 09/27/2023 11:00 AM EST Office Visit [facility] [address] [place] [phone] Wilmar Gama MD [address] [place] [phone] [facility] Start: 08-23-2023 End: 08-23-2023 Patient encounter procedure 08/23/2023 10:45 AM EST Office Visit [facility] [address] [place] [place] [phone] Wilmar Gama MD [address] [place] [phone] [facility] Start: 04-08-2023 Influenza vaccination Influenza Vacc ine [facility] Start: 04-03-2022 Adult BMI Screening Adult BMI Screen ing [facility] Start: 2015 Depression Screening Depression Scre ening [facility] Start: 2015 Tobacco Screening Tobacco Screening [facility] Start: 2003 Tobacco Counseling Tobacco Counselin g [facility] Bacteria identified in Urine by Culture Urine culture Microbiology Routine Missed menses Ordered: 12/06/2024 [facility] Comment on above: Ordered: 12/06/2024 Bacteria identified in Urine by Culture Urine culture Microbiology Routine Urinary tract infection without hematuria, site unspecified Ordered: 03/20/2025 [facility] Comment on above: Ordered: 03/20/2025 CBC W Auto Different ial panel - Blood CBC and differential Lab Routine PCOS (polycystic ovarian syndrome) Ordered: 09/25/2024 [facility] Comment on above: Ordered: 09/25/2024 CBC W Auto Different ial panel - Blood CBC and differential Lab Routine Missed menses , unspecified gestational age Ordered: 12/06/2024 [facility] Comment on above: Ordered: 12/06/2024 CHLAMYDIA TRACHOMATI S (GENITO/STI) CHLAMYDIA TRACHOMATIS (GENITO/STI) Lab Routine STD exposure Ordered: 01/29/2025 [facility] Comment on above: Ordered: 01/29/2025 CHLAMYDIA TRACHOMATI S (GENITO/STI) CHLAMYDIA TRACHOMATIS (GENITO/STI) Lab Routine Yeast infection BV (bacterial vaginosis) Ordered: 03/20/2025 [facility] Comment on above: Ordered: 03/20/2025 Cytology Cervical or vaginal smear or scraping study Pap Smear Pathology and Cytology Routine Well woman exam with routine gynecological exam Ordered: 01/29/2025 [facility] Work Phone: Comment on above: Ordered: 01/29/2025 DHEA-sulfate DHEA-sulfate Lab Routine PCOS (polycystic ovarian syndrome) Ordered: 09/25/2024 [facility] Comment on above: Ordered: 09/25/2024 Follicle stimulating hormone Follicle stimulating hormone Lab Routine PCOS (polycystic ovarian syndrome) Ordered: 09/25/2024 [facility] Comment on above: Ordered: 09/25/2024 hCG, quantitative, hCG, quantitative, Lab Routine PCOS (polycystic ovarian syndrome) Ordered: 09/25/2024 [facility] Work Phone: Comment on above: Ordered: 09/25/2024 Hemoglobin A1c/Hemoglobin.total in Blood Hemoglobin A1c Lab Routine PCOS (polycystic ovarian syndrome) Ordered: 09/25/2024 [facility] Comment on above: Ordered: 09/25/2024 Hemoglobin A1c/Hemoglobin.total in Blood Hemoglobin A1c Lab Routine Missed menses , unspecified gestational age Ordered: 12/06/2024 [facility] Comment on above: Ordered: 12/06/2024 Hemoglobin A1c/Hemoglobin.total in Blood Hemoglobin A1c Lab Routine Third trimester ([facility]) 28 weeks gestation of ([facility]) Ordered: 04/17/2025 [facility] Work Phone: Comment on above: Ordered: 04/17/2025 Hepatitis B virus stearns rface Ag [Presence] in Serum or Plasma by Immunoassay Hepatitis B surface antigen Lab Routine Missed menses , unspecified gestational age Ordered: 12/06/2024 [facility] Comment on above: Ordered: 12/06/2024 Hepatitis C virus Ab [Presence] in Serum or Plasma by Immunoassay Hepatitis C antibody Lab Routine Missed menses , unspecified gestational age Ordered: 12/06/2024 [facility] Comment on above: Ordered: 12/06/2024 HIV-1/HIV-2 antigen/antibody combination immunoassay HIV-1 and HIV-2 antibodies Lab Routine Missed menses , unspecified gestational age Ordered: 12/06/2024 [facility] Comment on above: Ordered: 12/06/2024 Luteinizing hormone Luteinizing hormone Lab Routine PCOS (polycystic ovarian syndrome) Ordered: 09/25/2024 [facility] Comment on above: Ordered: 09/25/2024 Neisseria gonorrhoea e DNA [Presence] in Unspecified specimen by ISAAC with probe detection Neisseria gonorrhea DNA probe, direct Lab Routine STD exposure Ordered: 01/29/2025 [facility] Comment on above: Ordered: 01/29/2025 Neisseria gonorrhoea e DNA [Presence] in Unspecified specimen by ISAAC with probe detection Neisseria gonorrhea DNA probe, direct Lab Routine Yeast infection BV (bacterial vaginosis) Ordered: 03/20/2025 [facility] Comment on above: Ordered: 03/20/2025 Reagin Ab [Presence] in Serum by RPR RPR Lab Routine Missed menses , unspecified gestational age Ordered: 12/06/2024 [facility] Comment on above: Ordered: 12/06/2024 Rubella antibody, IgG Rubella an tibody, IgG Lab Routine Missed menses , unspecified gestational age Ordered: 12/06/2024 [facility] Comment on above: Ordered: 12/06/2024 SURESWAB(R) ADVANCED VAGINITIS PLUS, TMA SURESWAB(R) ADVANCED VAGINITIS PLUS, TMA Pathology and Cytology Routine Vaginal discharge Ordered: 01/29/2025 [facility] Comment on above: Ordered: 01/29/2025 SURESWAB(R) ADVANCED VAGINITIS PLUS, TMA SURESWAB(R) ADVANCED VAGINITIS PLUS, TMA Pathology and Cytology Routine Yeast infection BV (bacterial vaginosis) Ordered: 03/20/2025 [facility] Comment on above: Ordered: 03/20/2025 Thyrotropin [Units/volume] in Serum or Plasma TSH Lab Routine PCOS (polycystic ovarian syndrome) Ordered: 09/25/2024 [facility] Work Phone: Comment on above: Ordered: 09/25/2024 Thyroxine (T4) free [Mass/volume] in Serum or Plasma T4, free Lab Routine PCOS (polycystic ovarian syndrome) Ordered: 09/25/2024 [facility] Comment on above: Ordered: 09/25/2024 End: 09-26-2024 Unlisted Procedure / Surgery Unlisted Procedure / Surgery Procedures Routine Biliary colic 1 Occurrences starting 09/27/2023 until 09/26/2024 [facility] Work Phone: Comment on above: 1 Occurrences starti ng 09/27/2023 until 09/26/2024 US Pelvis transvaginal US OB tra nsvaginal Imaging Routine Missed menses 12/06/2024 12:56 PM EDT [facility] Immunizations Immunization Date Immunization Notes Care Provider Emma lora 06-23-2021 influenza virus vaccine, unspecified formulation Paola [facility] [employer] [facility] 06-22-2016 influenza virus vaccine, unspecified formulation Alicja Beltre DO Work Phone: [facility] Payers Date Payer Category Payer Self-pay 2024 Private Health Insurance [employer] [id number] 2024 Unknown [id number] 2023 Medicaid (Managed Care) [employer] [id number] 2018 Medicaid [employer] [id number] 2018-Present [phone] [place] [id number] 2003 Unknown [id number] 2.16.840.1.047864.3.579.2. 593 2003 Unknown [id number] 2.16.840.1.499692.3.579.2. 593 2003 Unknown [id number] 2.16.840.1.841182.3.579.2. 593 2003 Unknown [id number] 2.16.840.1.973508.3.579.2. 593 2003 Unknown [id number] 2.16.840.1.851557.3.579.2. 593 2003 Unknown [id number] 2.16.840.1.741401.3.579.2. 593 2003 Unknown [id number] 2.16.840.1.022166.3.579.2. 593 2003 Unknown [id number] 2.16.840.1.729533.3.579.2. 593 2003 Unknown [id number] 2.16.840.1.133225.3.579.2. 593 2003 Unknown [id number] 2.16.840.1.196565.3.579.2. 593 2003 Unknown [id number] 2.16.840.1.747433.3.579.2. 593 2003 Unknown [id number] 2.16.840.1.623051.3.579.2. 593 2003 Unknown [id number] 2.16.840.1.367277.3.579.2. 593 2003 Unknown [id number] 2.16.840.1.528921.3.579.2. 593 2003 Unknown [id number] 2.16.840.1.873760.3.579.2. 593 2003 Unknown [id number] 2.16.840.1.696955.3.579.2. 593 2003 Unknown [id number] 2.16.840.1.902220.3.579.2. 593 2003 Unknown [id number] 2.16.840.1.933351.3.579.2. 593 2003 Unknown [id number] 2.16.840.1.167943.3.579.2. 593 2003 Unknown [id number] 2.16.840.1.033190.3.579.2. 593 2003 Unknown [id number] 2.16.840.1.626694.3.579.2. 593 2003 Unknown [id number] 2.16.840.1.034167.3.579.2. 593 2003 Unknown [id number] 2.16.840.1.285686.3.579.2. 593 2003 Unknown [id number] 2.16.840.1.989882.3.579.2. 593 2003 Unknown [id number] 2.16.840.1.582569.3.579.2. 593 2003 Unknown [id number] 2.16.840.1.306387.3.579.2. 593 2003 Unknown [id number] 2.16.840.1.563038.3.579.2. 593 2003 Unknown [id number] 2.16.840.1.311803.3.579.2. 727 2003 Unknown [id number] 2.16.840.1.837138.3.579.2. 727 2003 Unknown [id number] 2.16.840.1.445405.3.579.2. 1286 2003 Unknown [id number] 2.16.840.1.048138.3.579.2. 1286 2003 Unknown [id number] 2.16.840.1.537578.3.579.2. 1286 2003 Unknown [id number] 2.16.840.1.978315.3.579.2. 1286 2003 Unknown [id number] 2.16.840.1.892237.3.579.2. 1286 2003 Unknown [id number] 2.16.840.1.130064.3.579.2. 1286 2003 Unknown [id number] 2.16.840.1.338767.3.579.2. 1286 2003 Unknown [id number] 2.16.840.1.979491.3.579.2. 1286 2003 Unknown [id number] 2.16.840.1.481928.3.579.2. 1286 2003 Unknown [id number] 2.16.840.1.340077.3.579.2. 1286 2003 Unknown [id number] 2.16.840.1.826109.3.579.2. 128 2003 Unknown [id number] 2.840.1.478924.3.579.2. 128 2003 Unknown [id number] 2.16840.1.974161.3.579.2. 128 2003 Unknown [id number] 2840.1.855273.3.579.2. 1259 2003 Unknown [id number] 2.840.1.551700.3.579.2. 1259 2003 Unknown [id number] 2.840.1.609912.3.579.2. 1259 2003 Unknown [id number] 2.16840.1.857637.3.579.2. 1259 2003 Unknown [id number] 2.16840.1.933451.3.579.2. 1259 2003 Unknown [id number] 2.16840.1.769980.3.579.2. 1259 2003 Unknown [id number] 2.16.840.1.026798.3.579.2. 1259 2003 Unknown [id number] 2.16.840.1.103440.3.579.2. 1259 2003 Unknown [id number] 216.840.1.764438.3.579.2. 1259 2003 Unknown [id number] 2.16.840.1.013767.3.579.2. 1259 2003 Unknown [id number] 2.16.840.1.312199.3.579.2. 1259 2003 Unknown [id number] 2.16.840.1.769995.3.579.2. 1259 1976 Unknown [id number] 2.16.840.1.081828.3.579.2. 727 1959 Unknown [id number] Unknown [id number] 2.16.840.1.694399.3.579.2. 175 Unknown [id number] 2.16.840.1.743466.3.579.2. 531 Social History Date Type Detail Facility Tobacco smoking status [facility] [place] Start: 04-03-2021 End: 04-15-2025 Sex Assigned At Female [facility] Start: 04-03-2021 End: 10-18-2023 Tobacco smoking status DEIS Occasional tobacco smoker [facility] Start: 04-03-2021 End: 10-18-2023 Tobacco use and exposure Smokeless tobacco non-user [facility] Start: 04-03-2021 End: 10-18-2023 Alcohol intake Lifetime non-drinker (finding) [facility] Start: 04-03-2021 End: 04-15-2025 History of Social function [facility] Housing Instability Unknown [facility] Start: 2003 Sex Assigned At Not on file P [facility] Start: 09-28-2023 Tobacco Comment Will smoke a c igarette if does not have a vape [facility] History of tobacco use Cigarette Smoker P [facility] Tobacco smoking stat us [facility] Tobacco smoking consumption unknown [facility] Start: 10-17-2024 [facility] Clinical Notes 11-28-2020 to 04-29-2025 Elvia Calvillo, [place] - 04/29/2025 3:20 PM Deja Calvillo NP - 04/17/2025 3:20 PM Deja Calvillo NP - 04/03/2025 3:40 PM MICHELLE Ortez - 03/20/2025 3:40 PM EDTPatient Instructions Note Date & Type Note Facility 04-29-2025 History of Present illness Narrative Reason for [...] Ambulatory Problems Diagnosis Date Noted Third trimester ([facility]) 12/27/2022 ADHD (attention deficit hyperactivity disorder) 01/11/2012 [...] nursing note reviewed. Exam conducted with a ceramic plater present. Vitals: Estimated body mass index is 24.37 kg/m as calculated from the following: Height [...] week for routine OB appointment. Documented by Elvia Calvillo NP on behalf of: Wolfgang Hoffman DO documented in this encounter [facility] 04-17-2025 History of Present illness Narrative Reason for [...] Ambulatory Problems Diagnosis Date Noted Third trimester ([facility]) 12/27/2022 ADHD (attention deficit hyperactivity disorder) 01/11/2012 [...] nursing note reviewed. Exam conducted with a ceramic plater present. Vitals: Estimated body mass index is 24.45 kg/m as calculated from the following: Height as of 12/21/22: 5' 6 . Weight as of this encounter: 151 lb 8 oz. BP: 120/70 No LMP recorded. Patient is . ASSESSMENT & PLAN ICD-10-CM 1. Third trimester ([facility]) Z34.93 POCT urinalysis dipstick manually resulted Hemoglobin A1c 2. 28 weeks gestation of ([facility]) Z3A.28 Hemoglobin A1c Return OB: Patient presents [...] week for routine OB appointment. Documented by Elvia Calvillo NP on behalf of: Elvia Calvillo NP documented in this encounter [facility] 04-03-2025 History of Present illness Narrative Reason for Appointment: Patient ID: Kemi Piper is a 19 y.o. female who presents for Routine Visit Patient presents today for Return OB appointment. MEDICATIONS Current Outpatient Medications Medication Instructions metroNIDAZOLE (Metrogel) 0.75 % vaginal gel Patient to use vaginally nightly for 5 nights, then twice weekly thereafter for 4 months. 28-0.8 MG tablet 1 tablet, Daily ALLERGIES No Known Allergies PROBLEMS Active Ambulatory Problems Diagnosis Date Noted Third trimester ([facility]) 12/27/2022 ADHD (attention deficit hyperactivity [...] Negative. Musculoskeletal: Negative. Skin: Negative. Neurological: Negative. Psychiatric/Behavioral: Positive for agitation. More emotional feels like she is lashing out a lot All other systems reviewed and are negative. [...] nursing note reviewed. Exam conducted with a ceramic plater present. Vitals: Estimated body mass index is 23.53 kg/m as calculated from the following: Height as of 12/21/22: 5' 6 . Weight as of this encounter: 145 lb 12.8 oz. BP: 100/60 No LMP recorded. Patient is . ASSESSMENT & PLAN ICD-10-CM 1. Second trimester ([facility]) Z34.92 2. 26 weeks gestation of ([facility]) Z3A.26 3. History of psychogenic nonepileptic seizure Z87.898 Return OB: Patient presents today for a routine obstetrics appointment. Patient is currently 26w0d . Patient states she is doing well but has complaints of being tired due to current . Patient has verbalizes frequent movement. labor precautions was discussed/given and patient was instructed to perform kick counts three times a day. No orders of the defined types were placed in this encounter. Follow Up: Patient reports that she feels more emotional and lashing out more often . Denies SI/HI taking care of her other child without difficulty. Patient is to return to office in 2 week for routine OB appointment. Documented by Elvia Calvillo NP on behalf of: Wolfgang Hoffman DO documented in this encounter [facility] 03-20-2025 History of Present illness Narrative 14 Reason for Appointment: Patient ID: Kemi Piper is a 19 y.o. female who presents for Routine Visit Patient presents today for Return OB appointment. MEDICATIONS Current Outpatient Medications Medication Instructions 28-0.8 MG tablet 1 tablet, Daily ALLERGIES No Known Allergies PROBLEMS Active Ambulatory Problems Diagnosis Date Noted Third trimester ([facility]) 12/27/2022 ADHD (attention deficit hyperactivity [...] Respiratory: Negative. Cardiovascular: Negative. Gastrointestinal: Negative. Genitourinary: Positive for dysuria. Musculoskeletal: Negative. Skin: Negative. Neurological: Negative. All [...] nursing note reviewed. Exam conducted with a ceramic plater present. Vitals: Estimated body mass index is 23.69 kg/m as calculated from the following: Height as of 12/21/22: 5' 6 . Weight as of 02/25/25: 146 lb 12.8 oz. BP: No LMP recorded. Patient is . ASSESSMENT & PLAN ICD-10-CM 1. Second trimester ([facility]) Z34.92 POCT urinalysis dipstick manually resulted 2. 24 weeks gestation of ([facility]) Z3A.24 3. Diabetes mellitus screening Z13.1 CBC Glucose tolerance, 1 hour CBC Glucose tolerance, 1 hour 4. Yeast infection B37.9 SURESWAB(R) ADVANCED VAGINITIS PLUS, TMA CHLAMYDIA TRACHOMATIS (GENITO/STI) Neisseria gonorrhea DNA probe, direct 5. BV (bacterial vaginosis) N76.0 SURESWAB(R) ADVANCED VAGINITIS PLUS, TMA B96.89 CHLAMYDIA TRACHOMATIS (GENITO/STI) Neisseria gonorrhea DNA probe, direct 6. Urinary tract infection without hematuria, site unspecified N39.0 Urine culture Return OB: Patient presents today for a routine obstetrics appointment. Patient is currently 24w0d . Patient states she is doing well but has complaints of being tired due to current . Patient has verbalizes frequent movement. labor precautions was discussed/given and patient was instructed to perform kick counts three times a day. Orders Placed This Encounter Procedures Urine culture CBC Glucose tolerance, 1 hour CHLAMYDIA TRACHOMATIS (GENITO/STI) Neisseria gonorrhea DNA probe, direct POCT urinalysis dipstick manually resulted Follow Up: Patient is to return to office in 2 week for routine OB appointment. Patient with complaints of dysuria. Will treat with keflex. Documented by Elvia Calvillo NP on behalf of: Elvia Calvillo NP documented in this encounter [facility] 02-25-2025 History of Present illness Narrative Reason for Appointment: Patient ID: Kemi Piper is a 19 y.o. female who presents for Routine Visit Patient presents today for Return OB appointment. MEDICATIONS Current Outpatient Medications Medication Instructions 28-0.8 MG tablet 1 tablet, Daily ALLERGIES No Known Allergies PROBLEMS Active Ambulatory Problems Diagnosis Date Noted Third trimester ([facility]) 12/27/2022 ADHD (attention deficit hyperactivity disorder) 01/11/2012 [...] reviewed. Vitals: Estimated body mass index is 23.69 kg/m as calculated from the following: Height as of 12/21/22: 5' 6 . Weight as of this encounter: 146 lb 12.8 oz. BP: 108/60 No LMP recorded. Patient is . ASSESSMENT & PLAN ICD-10-CM 1. Second trimester ([facility]) Z34.92 POCT urinalysis dipstick manually resulted 2. 20 weeks gestation of ([facility]) Z3A.20 POCT urinalysis dipstick manually resulted Return OB: Patient presents today for a routine obstetrics appointment. Patient is currently 20w5d . Patient states she is doing well but has complaints of being tired due to current . Patient has verbalizes frequent movement. Orders Placed This Encounter Procedures POCT urinalysis dipstick manually resulted Follow Up: Patient is to return to office in 4 week for routine OB appointment. Documented by MICHELLE Forrest on behalf of: Wolfgang Hoffman DO documented in this encounter [facility] 01-29-2025 History of Present illness Narrative Reason for [...] Ambulatory Problems Diagnosis Date Noted Third trimester ([facility]) 12/27/2022 ADHD (attention deficit hyperactivity disorder) 01/11/2012 [...] nursing note reviewed. Exam conducted with a ceramic plater present. Vitals: Estimated body mass index is 21.95 kg/m as calculated from the following: Height as of 12/21/22: 5' 6 . Weight as of 01/01/25: 136 lb. BP: No LMP recorded. Patient is . ASSESSMENT & PLAN ICD-10-CM 1. Well woman exam with routine gynecological exam Z01.419 Pap Smear 2. Second trimester ([facility]) Z34.92 Alpha fetoprotein, maternal Alpha fetoprotein, maternal US OB 14+ weeks anatomy scan 3. 16 weeks gestation of ([facility]) Z3A.16 Alpha fetoprotein, maternal Alpha fetoprotein, maternal US OB 14+ weeks anatomy scan 4. Vaginal discharge N89.8 SURESWAB(R) ADVANCED VAGINITIS PLUS, TMA 5. STD exposure Z20.2 CHLAMYDIA TRACHOMATIS (GENITO/STI) Neisseria gonorrhea DNA probe, direct 6. Screening, , for anatomic survey ([facility]) Z36.89 US OB 14+ weeks anatomy scan Return OB/Annual Exam: Patient presents today for a annual exam/routine obstetrics appointment. Patient is currently 16w6d . Patient states she is doing well [...] of: MICHELLE Forrest documented in this encounter [facility] 01-01-2025 History of Present illness Narrative Reason for Appointment: Patient ID: Kemi Piper is a 19 y.o. female who presents for Routine Visit Patient presents today for Return OB appointment. MEDICATIONS Current Outpatient Medications Medication Instructions 28-0.8 MG tablet 1 tablet, Daily ALLERGIES No Known Allergies PROBLEMS Active Ambulatory Problems Diagnosis Date Noted Third trimester 12/27/2022 ADHD (attention deficit hyperactivity disorder) ([facility]) 01/11/2012 Deterioration in school performance 01/21/2015 Migraines ([facility]) 11/28/2020 Nocturnal enuresis 12/12/2012 Psychogenic nonepileptic seizure [...] nursing note reviewed. Exam conducted with a ceramic plater present. Vitals: Estimated body mass index is 21.95 kg/m as calculated from the following: Height as of 12/21/22: 5' 6 . Weight as of this encounter: 136 lb. BP: 108/58 No LMP recorded. Patient is . ASSESSMENT & PLAN ICD-10-CM 1. First trimester Z34.91 POCT urinalysis dipstick manually resulted 2. 12 weeks gestation of Z3A.12 3. History of psychogenic nonepileptic seizure Z87.898 New OB: Patient presents today for 1st time obstetrics appointment with provider. Patient is currently 12w6d . Patients history has been reviewed in great detail including any potential risks. Patient stated she currently has no complaints. Expectations throughout regarding labs, ultrasounds, and appointments have been discussed with the patient in detail. It was reiterated that the patient is to drink 6-8 glasses of water a day, eat 6 small meals a day, do not consume raw or undercooked meat, and stay away from [facility]. Patient has been consulted regarding any further do's and don'ts of . Patient voiced understanding and all questions and concerns were answered. Pt having seizures, pt being referred to neurology. Orders Placed This Encounter Procedures POCT urinalysis dipstick manually resulted Follow Up: Patient is to return in 4 weeks for routine OB appointment. Documented by Porsha Mejia LPN on behalf of: Wolfgang Hoffman DO documented in this encounter [facility] 12-06-2024 History of Present illness Narrative Reason for Appointment: Patient ID: Kemi Piper is a 19 y.o. female who presents for Amenorrhea Patient presents today for a Nurse OB Intake appointment. Patient is 9w1d with a Estimated Date of Delivery: 07/10/25 OB History Para Term AB Living 2 1 SAB IAB Ectopic Multiple Live Births # Outcome Date GA Lbr Derik/2nd Weight Sex Type Anes PTL Lv 2 Current 1 01/05/23 6 lb 5 oz F Vag-Spont DORIS Current Medications: has a current medication list which includes the following prescription(s): . Medical History: Active Ambulatory Problems Diagnosis Date Noted Third trimester 12/27/2022 ADHD (attention deficit hyperactivity disorder) ([facility]) 01/11/2012 Deterioration in school performance 01/21/2015 Migraines ([facility]) 11/28/2020 Nocturnal enuresis 12/12/2012 Psychogenic nonepileptic seizure 11/29/2020 Resolved Ambulatory Problems Diagnosis Date Noted No Resolved Ambulatory Problems No Additional Past Medical History No family history on file. Social History Tobacco Use Smoking status: Not on file Smokeless tobacco: Not on file Substance Use Topics Alcohol use: Not on file Drug use: Not on file Past Surgical History: Procedure Laterality Date APPENDECTOMY GALLBLADDER No Known Allergies Vitals: Estimated body mass index is 22.11 kg/m as calculated from the following: Height as of 12/21/22: 5' 6 . Weight as of this encounter: 137 lb. BP: 120/70 No LMP recorded. Patient is . Assessment/Plan Diagnoses and all orders for this visit: Missed menses - US OB transvaginal; Future - Type and screen; Future - ABO/Rh; Future - CBC and differential - Hemoglobin A1c - RPR - Rubella antibody, IgG - Hepatitis B surface antigen - Hepatitis C antibody - HIV-1 and HIV-2 antibodies - Urine culture - POCT , urine manually resulted - POCT urinalysis dipstick manually resulted , unspecified gestational age - Type and screen; Future - ABO/Rh; Future - CBC and differential - Hemoglobin A1c - RPR - Rubella antibody, IgG - Hepatitis B surface antigen - Hepatitis C antibody - HIV-1 and HIV-2 antibodies - Rapid drug screen, urine; Future Encounter for supervision of normal first in first trimester - Rapid drug screen, urine; Future Nurse Note: OB Intake: Patient presents today for first OB visit. Patients history has been reviewed in great detail including any potential risks. Patient signed consent forms and patient desires testing in both trimesters. Patient currently has no complaints and has been advised to drink 6-8 glasses of water a day, eat no raw or undercooked meat, and stay away from [facility]. Patient has also been advised to not change litter boxes and eat 6 small meals a day. Patient has been consulted regarding the do's and don'ts of . Patient was given labs and all questions and concerns were answered. Patient was given [place] to have completed with Initial labs. Follow Up: Patient is to return in 4 weeks for routine OB appointment. Follow Up: Patient is to have labs drawn at directed and return to office for initial OB appointment with provider. Patient may call office as needed with any concerns or questions. Nurse Visit Completed by: Pat Skelton LPN documented in this encounter [facility] 11-08-2024 History of Present illness Narrative Reason [...] trimester 12/27/2022 ADHD (attention deficit hyperactivity disorder) ([facility]) 01/11/2012 Deterioration in school performance 01/21/2015 Migraines [...] nursing note reviewed. Exam conducted with a ceramic plater present. Vitals: Estimated body mass index is [...] Wolfgang Hoffman DO documented in this encounter [facility] 09-25-2024 History of Present illness Narrative Reason [...] trimester 12/27/2022 ADHD (attention deficit hyperactivity disorder) ([facility]) 01/11/2012 Deterioration in school performance 01/21/2015 Migraines ([facility]) 11/28/2020 Nocturnal enuresis 12/12/2012 Psychogenic nonepileptic seizure ([facility]) 11/29/2020 Resolved Ambulatory Problems Diagnosis Date Noted [...] Wolfgang Hoffman DO documented in this encounter [facility] 11-03-2023 Miscellaneous Notes We received a letter from [facility] stating that the procedure on 09/27/23 was not covered. The Cholecystectomy was ordered by Dr Gama on 09/27/23, the actual surgery wasn't performed until 10/03/23. I scanned the letter into her chart & spoke to Trinity, at the Pre[employer]Cert Main line. She could see the letter & she will get it to the [facility] specialist. documented in this encounter [facility] 11-03-2023 Telephone encounter Note We received a letter from [facility] stating that the procedure on 09/27/23 was not covered. The Cholecystectomy was ordered by Dr Gama on 09/27/23, the actual surgery wasn't performed until 10/03/23. I scanned the letter into her chart & spoke to Trinity, at the Pre[employer] Main line. She could see the letter & she will get it to the [facility] specialist. [facility] 10-18-2023 History of Present illness Narrative [...] Status post laparoscopic cholecystectomy [Z90.49] GERMAN DEAN [facility] General Surgery [facility] This note was created with the assistance of a speech recognition program. While intending to generate a timely document that accurately reflects the content of the visit, no guarantee can be provided that every grammatical or spelling mistake has been or will be identified or corrected. Thank you for your understanding. GERMAN Dean 10/18/23 1014 documented in this encounter [facility] 09-28-2023 Note XR CHEST 2 VWS Procedure: Chest x-ray performed Number of views:2 History:Preop asthma Comparison:None Findings: The heart and lungs show no acute findings, and the mediastinum and manasa are grossly negative . Impression: 1. No acute change. Finalized by Umesh Bolaños MD on 09/28/2023 10:05 AM [facility] 09-28-2023 Note Procedure: Chest x-ray performed Number of views:2 History:Preop asthma Comparison:None Findings: The heart and lungs show no acute findings, and the mediastinum and manasa are grossly negative . Impression: 1. No acute change. Finalized by Umesh Bolaños MD on 09/28/2023 10:05 AM [facility] Instructions Noemí Arnett RN - 09/28/2023 9:00 AM EST Preoperative Education Checklist- General Surgery date: 10/03/23 Surgery time: 1100 a.m. Arrival time: 0900 a.m. 1. Bring a photo ID and your insurance card with you the day of surgery. You will check in at the main lobby of the [facility]- registration desk is straight ahead as soon as you walk in. Tell them you are here for surgery. 2. If you have a Living Will/Durable Power of Boiler Erector for Health Care that is not on [...] after you have bathed. 5. NO nail south african/acrylic on at least one finger. If you are having a hand, wrist or foot surgery then all nail south african and artificial/acrylic nails must be removed from [...] please call the Preadmission Testing office at [phone], Mon.-Fri. 7 a.m.-3 p.m. Leave a voicemail [...] with your doctor. documented in this encounter [facility] [employer] [facility] 09-28-2023 Miscellaneous Notes Preoperative Education Checklist- General Surgery date: 10/03/23 Surgery time: 1100 a.m. Arrival time: 0900 a.m. 1. Bring a photo ID and your insurance card with you the day of surgery. You will check in at the main lobby of the [facility]- registration desk is straight ahead as soon as you walk in. Tell them you are here for surgery. 2. If you have a Living Will/Durable Power of Boiler Erector for Health Care that is not on [...] after you have bathed. 5. NO nail south african/acrylic on at least one finger. If you are having a hand, wrist or foot surgery then all nail south african and artificial/acrylic nails must be removed from [...] please call the Preadmission Testing office at [phone], Mon.-Fri. 7 a.m.-3 p.m. Leave a voicemail [...] Patient verbalized understanding. [facility] Nurse Note Preoperative Education Checklist- General Surgery date: 10/03/23 Surgery time: 1100 a.m. Arrival time: 0900 a.m. 1. Bring a photo ID and your insurance card with you the day of surgery. You will check in at the main lobby of the [facility]- registration desk is straight ahead as soon as you walk in. Tell them you are here for surgery. 2. If you have a Living Will/Durable Power of Boiler Erector for Health Care that is not on [...] after you have bathed. 5. NO nail south african/acrylic on at least one finger. If you are having a hand, wrist or foot surgery then all nail south african and artificial/acrylic nails must be removed from [...] please call the Preadmission Testing office at [phone], Mon.-Fri. 7 a.m.-3 p.m. Leave a voicemail [...] to the follow-up appointment with your doctor. [facility] 09-28-2023 Nurse Note Hibiclens and surgical instructions reviewed. Patient verbalized understanding. [facility] [employer] [facility] 09-27-2023 History of Present illness Narrative Images [...] patient/family/caregiver Referring and communicating with other health respite care provider Wilmar Gama MD [facility] General Surgery [place] documented in this encounter [facility] 09-13-2023 Miscellaneous Notes Patient no called no showed for appointment with Dr. Gama. I called Kemi to see if we could reschedule this appointment. Left message on voicemail to call the office back as I was unable to make contact. documented in this encounter [facility] 09-13-2023 Telephone encounter Note Patient no called no showed for appointment with Dr. Gama. I called Kemi to see if we could reschedule this appointment. Left message on voicemail to call the office back as I was unable to make contact. [facility] 08-23-2023 Miscellaneous Notes Left message for patient to call back to reschedule appointment. documented in this encounter [facility] 08-23-2023 Telephone encounter Note Left message for patient to call back to reschedule appointment. [facility] 08-16-2023 Miscellaneous Notes Called patient in regard to gallstone referral from Dr. Montez's office. Left message on voicemail to call the office back to schedule appointment. Sandeep called the office back and scheduled an appointment with Dr. Gama for 08-23-23. documented in this encounter [facility] 08-16-2023 Telephone encounter Note Called patient in regard to gallstone referral from Dr. Montez's office. Left message on voicemail to call the office back to schedule appointment. [facility] 08-16-2023 Telephone encounter Note Sandeep called the office back and scheduled an appointment with Dr. Gama for 08-23-23. [facility] 11-29-2020 Note Discharge/Transfer S porsha Name: Kemi Piper MR#: [id number] : [id number] Room #: 6221/01 Age/Sex: 15 y.o. female Admit Date: 11/28/2020 Admitting: Reggie Conner MD Discharge Date: 11/29/2020 Discharged from: [facility] Attending: Dr. Reggie Conner MD Final [...] with vision loss. She was seen at [facility] Emergency department and observed with normal labs [...] opinion and she was admitted directly to [facility] Neurology. On the floor, patient complained of [...] Future Labs/Procedures Ex (more content not included)... 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 They do note she did [...] followed by their Family Physician, Dr. Rashard Montez. They were initially prescribed Dilantin in July [...] mom identifies as Dr. Jesús Choe in [place]. They have an upcoming appointment on 12/02. 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 [facility] Evaluation + Plan note No data available for this section [facility] General Surgery [place] Evaluation note Diagnosis Biliary colic- Primary Calculus of gallbladder without mention of cholecystitis or obstruction documented in this encounter [facility] Diagnosis Preop examination- Primary Unspecified pre-operative examination Asthma, unspecified asthma severity, unspecified whether complicated, unspecified whether persistent Preop examination Unspecified pre-operative examination Asthma, unspecified asthma severity, unspecified whether complicated, unspecified whether persistent Preop examination Unspecified pre-operative examination Asthma, unspecified asthma severity, unspecified whether complicated, unspecified whether persistent [facility] Diagnosis Status post laparoscopic cholecystectomy- Primary Other postprocedural status [facility] Diagnosis PCOS (polycystic ovarian syndrome)- Primary Polycystic ovaries [facility] Diagnosis PCOS (polycystic ovarian syndrome)- Primary Polycystic ovaries [facility] Diagnosis Missed menses , unspecified gestational age Encounter for supervision of normal first in first trimester [facility] Diagnosis First trimester state, incidental 12 weeks gestation of History of psychogenic nonepileptic seizure [facility] Diagnosis Well woman exam with routine gynecological exam Routine gynecological examination Second trimester ([facility]) state, incidental 16 weeks gestation of ([facility]) Vaginal discharge Leukorrhea, not specified as infective STD exposure Screening, , for anatomic survey ([facility]) Encounter for anatomic survey [facility] Diagnosis Second trimester ([facility]) state, incidental 20 weeks gestation of ([facility]) [facility] Diagnosis Second trimester ([facility]) state, incidental 24 weeks gestation of ([facility]) Diabetes mellitus screening Screening for diabetes mellitus Yeast infection BV (bacterial vaginosis) Unspecified vaginitis and vulvovaginitis Urinary tract infection without hematuria, site unspecified [facility] Diagnosis Anxiety, generalized- Primary Second trimester ([facility]) state, incidental 26 weeks gestation of ([facility]) History of psychogenic nonepileptic seizure [facility] Diagnosis Third trimester ([facility]) state, incidental 28 weeks gestation of ([facility]) [facility] Diagnosis Third trimester ([facility]) state, incidental 29 weeks gestation of ([facility]) Psychogenic nonepileptic seizure Diabetes mellitus screening Screening for diabetes mellitus [facility] No data available for this section [facility] General Surgery [place] InstructionsNot on filedocumented in this encounter [facility] filedocumented in this encounter [facility] filedocumented in this encounter [facility] on filedocumented in this encounter [facility] No data available for this section [facility] General Surgery [place] Summary Purpose Family History No Family History [...] Referral Specialty Diagnoses / Procedures Referred By Contmariann t Referred To Contact Diagnoses Preop examination Asthma, unspecified asthma severity, unspecified whether complicated, unspecified whether persistent Procedures ECG 12 lead Yo Berman MD [address] [place] [address] Referral ID Status Reason Start Date Expiration Date V isits Requested Visits Authorized [id number] Pending Review 09/28/2023 09/27/2024 1 1 Specialty Diagnoses / Procedures Referred By Contac t Referred To Contact Diagnoses Biliary colic Procedures Unlisted Procedure / Surgery Wilmar Gama MD [address] [place] [address] Referral ID Status Reason Start Date Expiration Date V isits Requested Visits Authorized [id number] Pending Review 09/27/2023 09/26/2024 1 1 Additional Source Comments INFORMATION SOURCE (unrecogn ized section and content) DATE CREATED AUTHOR 11/30/2020 [facility] DATE CREATED AUTHOR AUTHOR'S ORGANIZ ATION 01/14/2023 [facility] DATE CREATED AUTHOR AUTHOR'S ORGANIZ ATION 07/27/2023 [facility] DATE CREATED AUTHOR AUTHOR'S ORGANIZ ATION 09/12/2023 [facility] DATE CREATED AUTHOR AUTHOR'S ORGANIZ ATION 10/08/2023 [facility] DATE CREATED AUTHOR AUTHOR'S ORGANIZ ATION 10/19/2023 [facility] DATE CREATED AUTHOR AUTHOR'S ORGANIZ ATION 03/17/2025 [facility] DATE CREATED AUTHOR AUTHOR'S ORGANIZ ATION 04/30/2025 [facility] EPIC Patient Care team informatio n (unrecognized section and content) Data Entry Coordinator Relationship Specialty Start Date End Date Rashard Montez MD [address] [place] [address] PCP - General Family Medicine 03/25/21 Data Entry Coordinator Relationship Specialty Start Date End Date Rashard Montez MD [address] [id number] PCP - General Family Medicine 03/25/21 Data Entry Coordinator Relationship Specialty Start Date End Date Rashard Montez MD [address] [place] [address] PCP - General Family Medicine 03/25/21 Data Entry Coordinator Relationship Specialty Start Date End Date Rashard Montez MD [address] [place] [address] PCP - General Family Medicine 03/25/21 Data Entry Coordinator Relationship Specialty Start Date End Date Rashard Montez MD [address] [place] [address] PCP - General Family Medicine 03/25/21 Data Entry Coordinator Relationship Specialty Start Date End Date Rashard Montez MD [address] [place] [facility] [address] PCP - General Family Medicine 03/25/21 Data Entry Coordinator Relationship Specialty Start Date End Date Rashard Montez MD [address] [place] [facility] [address] PCP - General Family Medicine 02/16/23 Data Entry Coordinator Relationship Specialty Start Date End Date Rashard Montez MD [address] [place] [facility] [address] PCP - General Family Medicine 02/16/23 Data Entry Coordinator Relationship Specialty Start Date End Date Rashard Montez MD [address] [place] [facility] [address] PCP - General Family Medicine 02/16/23 Data Entry Coordinator Relationship Specialty Start Date End Date Rashard Montez MD [address] [facility] [address] PCP - General Family Medicine 02/16/23 Data Entry Coordinator Relationship Specialty Start Date End Date Rashard Montez MD [address] [place] [facility] [address] PCP - General Family Medicine 02/16/23 Data Entry Coordinator Relationship Specialty Start Date End Date Rashard Montez MD [address] [facility] [place] [address] PCP - General Family Medicine 02/16/23 Data Entry Coordinator Relationship Specialty Start Date End Date Rashard Montez MD [address] [facility] [place] [address] PCP - General Family Medicine 02/16/23 Data Entry Coordinator Relationship Specialty Start Date End Date Rashard Monetz MD PCP - General Family Medicine 02/16/23 Data Entry Coordinator Relationship Specialty Start Date End Date Rashard Montez MD [address] [facility] [place] [address] PCP - General Family Medicine 02/16/23 Data Entry Coordinator Relationship Specialty Start Date End Date Rashard Montez MD [address] [place] [address] PCP - General Family Medicine 02/16/23 Data Entry Coordinator Relationship Specialty Start Date End Date Rashard Montez MD [address] [facility] [place] [address] PCP - General Family Medicine 02/16/23 Data Entry Coordinator Relationship Specialty Start Date End Date Rashard Montez MD [address] [place] [address] PCP - General Family Medicine 02/16/23 Data Entry Coordinator Relationship Specialty Start Date End Date Rashard Montze MD [address] [facility] [place] [address] PCP - General Family Medicine 02/16/23 Data Entry Coordinator Relationship Specialty Start Date End Date Rashard Montez MD [address] [facility] [place] [address] PCP - General Family Medicine 02/16/23 Data Entry Coordinator Relationship Specialty Start Date End Date Rashard Montez MD [address] [facility] [place] [address] PCP - General Family Medicine 02/16/23 Data Entry Coordinator Relationship Specialty Start Date End Date Rashard Montez MD [address] [facility] [place] [address] PCP - General [facility] Medicine 02/16/23 Data Entry Coordinator Relationship Specialty Start Date End Date Rashard Montez MD [address] [facility] [place] [address] PCP - General [facility] Medicine 02/16/23 Data Entry Coordinator Relationship Specialty Start Date End Date Rashard Montez MD [address] [facility] [place] [address] PCP - General Family Medicine 02/16/23 Reason for Visit (unrecogniz ed section and content) Reason Comments Cholelithiasis CHOLELITHIAIS, REFER RED BY DR. MONTEZ Reason Comments Post-op Post op davinci chol ecystectomy performed 10/03/23 at [facility] Reason Comments discuss cycles Reason Comments Follow-up Reason Comments Amenorrhea Reason Comments Routine Visit Reason Comments Routine Visit [facility] Visit STI Screening FOR RECORDS PERTAINING TO PATIENTS WHO ARE [...] BE BASED ON THE PRIMARY CLINICAL RECORDS. [employer] [facility]. provides no warranty or guarantee of the accuracy or completeness of information in this document.
[2025-04-30 14:53] LABS: Hematocrit 34.5 % (36.0-48.0); Hemoglobin 12.6 g/dL (12.0-16.0); Immature Granulocytes Abs Auto 0.17 10^3/uL (0.00-0.03); Immature Granulocytes Pct Auto 1.8 % (0.0-0.5); Lymphocytes Absolute Auto 1.7 10^3/uL (1.2-3.8); Mean Corpuscular HGB Conc 36.5 g/dL (29.9-35.2); Mean Corpuscular Hemoglobin 32.0 pg (26.7-34.0); Mean Corpuscular Volume 87.6 fL (81.0-99.0); Platelet Count 164 10^3/uL (150-450); Red Blood Count 3.94 10^6/uL (4.20-5.40); White Blood Count 9.7 10^3/uL (4.0-11.0)
== END 2025-04-30 14:30 | disposition home or self-care (01) ==
LOC: LAB 14:30
PROVIDERS: PCP Family Medicine; Visit Provider Obstetrics & Gynecology
DX: Z13.1 Encounter for screening for diabetes mellitus (principal)
CPT/HCPCS: 36415; 83036; 85025

== ENCOUNTER 2025-04-30 14:36 | Outpatient (OUT) | payer OTHER, SELFPAY ==
--- OUTSIDE RECORDS SUMMARY | 2025-04-17 15:20 | XMS_ITS | Encounter Summary ---
Author Organization [facility] Address [address] [facility] [place] [address] Care Team Providers Care Reimbursement Specialist Name Role Phone Jose E Burns MD Primary Care Provider [phone] Reason for Visit * Reason Comments Routine Visit Encounter Details Date Type Department Care Team (Late st Contact Info) Description 04/17/2025 3:20 PM EDT Routine [facility] [address] [place] [address] Ela Calvillo, [place] [address] [place] [address] Third trimester ([facility]); 28 weeks gestation of ([facility]) Social History Tobacco Use Types Packs/Day Years Used Date Smoking Tobacco: Never Assessed PHQ-2 Answer Date Recorded Patient Health Questionnaire-2 Score 0 04/15/2025 Estimated Date of Delivery Comme nts Yes 07/10/2025 Based on Ultraso und, [id number] Sex and Gender Information Value Date Recorded Sex Assigned at Not on file Legal Sex Female 6:34 PM EDT Gender Identity Not on file Sexual Orientation Not on file documented as of this encounter Last Filed Vital Signs Vital Sign Reading Time Taken Comments Blood Pressure 120/70 04/17/2025 3:25 PM EDT Pulse - - Temperature - - Respiratory Rate - - Oxygen Saturation - - Inhaled Oxygen Concentration - - Weight 68.7 kg (151 lb 8 oz) 04/17/2025 3:25 PM EDT Height - - Body Mass Index 24.45 12/21/2022 12:00 PM EDT documented in this encounter Progress Notes * Ela Calvillo NP - 04/17/2025 3:20 PM EDT Reason for Appointment: Patient ID: Kemi Piper is a 19 y.o. female who presents for Routine Visit Patient presents today for Return OB appointment. MEDICATIONS Current Outpatient Medications Medication Instructions citalopram (CELEXA) 20 mg, Oral, Daily metroNIDAZOLE (Metrogel) 0.75 % vaginal gel Patient to use vaginally nightly for 5 nights, then twice weekly thereafter for 4 months. 28-0.8 MG tablet 1 tablet, Daily ALLERGIES No Known Allergies PROBLEMS Active Ambulatory Problems Diagnosis Date Noted Third trimester ([facility]) 12/27/2022 ADHD (attention deficit hyperactivity disorder) 01/11/2012 [...] nursing note reviewed. Exam conducted with a drop wire hanger present. Vitals: Estimated body mass index is 24.45 kg/m?? as calculated from the following: Height as of 12/21/22: 5' 6 . Weight as of this encounter: 151 lb 8 oz. BP: 120/70 No LMP recorded. Patient is . ASSESSMENT & PLAN ICD-10-CM 1. Third trimester ([facility]) Z34.93 POCT urinalysis dipstick manually resulted Hemoglobin A1c 2. 28 weeks gestation of ([facility]) Z3A.28 Hemoglobin A1c Return OB: Patient presents today for a routine obstetrics appointment. Patient is currently 28w0d . Patient states she is doing well but has complaints of being tired due to current . Patient has verbalizes frequent movement. labor precautions was discussed/given and patient was instructed to perform kick counts three times a day. Orders Placed This Encounter Procedures Hemoglobin A1c POCT urinalysis dipstick manually resulted Follow Up: Patient is to return to office in 2 week for routine OB appointment. Documented by Ela Calvillo NP on behalf of: Ela Calvillo NP documented in this encounter Plan of Treatment Upcoming Encounters Date Type Department Care Team (Late st Contact Info) Description 05/15/2025 3:40 PM EDT Routine [facility] [address] [place] [address] Ela Calvillo NP [address] [place] [address] 07/17/2025 3:40 PM EST Visit [facility] [address] [place] [address] Wolfgang Hoffman DO [address] [place] [address] Scheduled Orders Name Type Priority Associated Diagnoses Orde r Schedule Hemoglobin A1c Lab Routine Third trimester ([facility]) 28 weeks gestation of ([facility]) Ordered: 04/17/2025 documented as of this encounter Procedures Procedure Name Priority Date/Time Associated Diagnosis Comments POCT URINALYSIS DIPSTICK Routine 04/17/2025 3:32 PM EDT Third trimester ([facility]) documented in this encounter Results * POCT urinalysis dipstick manually resulted (04/17/2025 3:32 PM EDT) Color, UA Yellow Clarity, UA Clear Glucose, UA Negative Negative - 2000(110) ++++ mg/dL Bilirubin, UA Negative Negative - 4(70) +++ mg/dL Ketones, UA Negative Negative - 160(16) ++++ mg/dL Spec Grav, UA 1.020 1 - 1.03 Blood, UA Negative Negative - 50 Blayne/mcL pH, UA 6.0 5 - 9 Protein, UA Negative Negative - 2000(20) ++++ mg/dL Urobilinogen, UA 0.2 0.2 - 12 mg/dL Leukocytes, UA Negative Negative - 500+++ Jo/mcL Nitrite, UA Negative Negative - Positive Urine 04/17/2025 3:32 PM EDT Ela Calvillo NP POINT OF CARE TEST ENTER/EDIT ORDERABLES Final Result documented in this encounter Visit Diagnoses Diagnosis Third trimester ([facility]) state, incidental 28 weeks gestation of ([facility]) documented in this encounter Care Teams Reimbursement Specialist Relationship Specialty Start Date End Date Jose E Burns MD [address] [facility] [place] [id number] PCP - General Family Medicine 02/16/23 documented as of this encounter
--- OUTSIDE RECORDS SUMMARY | 2025-04-29 15:20 | XMS_ITS | Encounter Summary ---
Author Organization [facility] Address [address] [facility] [place] [address] Care Team Providers Care Power And Recovery Supervisor Name Role Phone Jose E Burns MD Primary Care Provider [phone] Reason for Visit * Reason Comments Routine Visit Encounter Details Date Type Department Care Team (Latest Contact Info) Description 04/29/2025 3:20 PM EDT Routine [facility] [address] [place] [address] Wolfgang Hoffman DO [address] [place], [facility] Third trimester ([facility]); 29 weeks gestation of ([facility]); Psychogenic nonepileptic seizure ; Diabetes mellitus screening Social History Tobacco Use Types Packs/Day Years [...] Sign Reading Time Taken Comments Blood Pressure 104/68 04/29/2025 3:42 PM EDT Pulse - - Temperature - - Respiratory Rate - - Oxygen Saturation - - Inhaled Oxygen Concentration - - Weight 68.5 kg (151 lb) 04/29/2025 3:42 PM EDT Height - - Body Mass Index 24.37 12/21/2022 12:00 PM EDT documented in this encounter Progress Notes * Ela Calvillo NP - 04/29/2025 3:20 PM EDT Reason for Appointment: Patient [...] Ambulatory Problems Diagnosis Date Noted Third trimester ([facility]) 12/27/2022 ADHD (attention deficit hyperactivity disorder) [...] nursing note reviewed. Exam conducted with a stenciling machine tender present. Vitals: Estimated body mass index is 24.37 kg/m?? as calculated from the following: Height as of 12/21/22: 5' 6 . Weight as of this encounter: 151 lb. BP: 104/68 No LMP recorded. Patient is . ASSESSMENT & PLAN Return OB: Patient presents today for a routine obstetrics appointment. Patient is currently 29w5d . Patient states she is doing well but has complaints of being tired due to current . Patient has verbalizes frequent movement. labor precautions was discussed/given and patient was instructed to perform kick counts three times a day. Orders Placed This Encounter Procedures CBC and differential POCT urinalysis dipstick manually resulted Follow Up: Patient is to return to office in 2 week for routine OB appointment. Documented by Ela Calvillo NP on behalf of: Wolfgang Hoffman DO documented in this encounter Plan of Treatment Upcoming Encounters Date Type Department Care Team (Late st Contact Info) Description 05/15/2025 3:40 PM EDT Routine [facility] [address] [facility] [place] [address] Ela Calvillo NP [address] [place] [address] 07/17/2025 3:40 PM EST Visit [facility] [address] [place] [address] Wolfgang Hoffman DO [address] [place] [address] Scheduled Orders Name Type Priority Associated Diagnoses Orde r Schedule CBC and differential Lab Routine Diabetes mellitus screening Expected: 04/29/2025 (Approximate), Expires: 04/29/2026 documented as of this encounter Procedures Procedure Name Priority Date/Time Associated Diagnosis Comments POCT URINALYSIS DIPSTICK Routine 04/29/2025 3:42 PM EDT Third trimester ([facility]) documented in this encounter Results * POCT urinalysis dipstick manually resulted (04/29/2025 3:42 PM EDT) Color, UA Yellow Clarity, UA Clear Glucose, UA Negative Negative - 2000(110) ++++ mg/dL Bilirubin, UA Negative Negative - 4(70) +++ mg/dL Ketones, UA Negative Negative - 160(16) ++++ mg/dL Spec Grav, UA 1.020 1 - 1.03 Blood, UA Negative Negative - 50 Blayne/mcL pH, UA 6.0 5 - 9 Protein, UA 1+ Negative - 2000(20) ++++ mg/dL Urobilinogen, UA 1.0 0.2 - 12 mg/dL Leukocytes, UA Negative Negative - 500+++ Jo/mcL Nitrite, UA Negative Negative - Positive Urine 04/29/2025 3:42 PM EDT Wolfgang Hoffman DO POINT OF CARE TEST ENTER/EDIT OR DERABLES Final Result documented in this encounter Visit Diagnoses Diagnosis Third trimester ([facility]) state, incidental 29 weeks gestation of ([facility]) Psychogenic nonepileptic seizure Diabetes mellitus screening Screening for diabetes mellitus documented in this encounter Care Teams Power And Recovery Supervisor Relationship Specialty Start Date End Date Jose E Burns MD [address] [place] [address] PCP - General Family Medicine 02/16/23 documented as of this encounter
--- OUTSIDE RECORDS SUMMARY | 2025-04-30 14:39 | XMS_ITS | Encounter Summary ---
Author Organization [facility] Address [address] [place] [address] Care Team Providers Care Technical Marketing Consultant Name Role Phone Jose E Burns MD Primary Care Provider [phone] Encounter Details Date Type Department Care Team (Late st Contact Info) Description 04/29/2025 Bamboo flowsheet [facility] [address] [place] [address] Wolfgang Hoffman DO [address] [place], [place] [id number] Social History Tobacco Use Types Packs/Day Years [...] Info) Description 05/15/2025 3:40 PM EDT Routine [facility] [address] [address] [place] [address] Ela Calvillo, MALT LOADER [address] [place] [address] 07/17/2025 3:40 PM EST Visit [facility] [address] [facility] [phone] Wolfgang Hoffman DO [address] [facility] [place] [address] documented as of this encounter Visit Diagnoses Not on filedocumented in this encounter Care Teams Technical Marketing Consultant Relationship Specialty Start Date End Date Jose E Burns MD [address] [facility] [place] [address] PCP - General Family Medicine 02/16/23 documented as of this encounter
--- OUTSIDE RECORDS SUMMARY | 2025-04-30 14:39 | XMS_ITS | Encounter Summary ---
Author Organization [facility] Address [address] [facility] [place] [address] Care Team Providers Care Gym Manager Name Role Phone Jose E Burns MD Primary Care Provider [phone] Encounter Details Date Type Department Care Team (Late st Contact Info) Description 02/07/2025 Orders Only [facility] [address] [place] [address] Keyla Rodriguez MA Social History Tobacco [...] 05/15/2025 3:40 PM EDT Routine [facility] [address] [place] [address] Ela Calvillo, [place] [address] [place] [address] 07/17/2025 3:40 PM EST Visit [facility] [address] [facility] [place] [phone] Wolfgang Hoffman DO [address] [facility] [place] [address] documented as of this encounter Procedures Procedure Name Priority Date/Time Associated Diagnosis Comments PAP SMEAR Routine 01/29/2025 12:00 AM EDT documented in this encounter Results * Pap Smear (01/29/2025 12:00 AM EDT) Swab Cervical swab / Unknown us [facility] ORDERABLES Final Re sult [facility] documented in this encounter Visit Diagnoses Not on filedocumented in this encounter Care Teams Gym Manager Relationship Specialty Start Date End Date Jose E Burns MD [address] [facility] [place] [address] PCP - General Family Medicine 02/16/23 documented as of this encounter
--- OUTSIDE RECORDS SUMMARY | 2025-04-30 14:39 | XMS_ITS | Encounter Summary ---
Author Organization [facility] Address [address] [facility] [place] [address] Care Team Providers Care Wind Turbine Mechanic Name Role Phone Jose E Burns MD Primary Care Provider [phone] Encounter Details Date Type Department Care Team (Late st Contact Info) Description 01/11/2023 Abstract [facility] [address] [facility] [place] [address] Wolfgang Hoffman DO [address] [facility] [address] Social History Tobacco Use Types Packs/Day [...] 3:40 PM EDT Routine [facility] [address] [place] [address] Ela Calvillo, [place] [address] [facility] [address] 07/17/2025 3:40 PM EST Visit [facility] [address] [facility] [place] [address] Wolfgang Hoffman DO [address] [facility] [address] [place], [place] [phone] documented as of this encounter Visit Diagnoses Not on filedocumented in this encounter Care Teams Wind Turbine Mechanic Relationship Specialty Start Date End Date Jose E Burns MD [address] [facility] [place] [address] PCP - General Family Medicine 02/16/23 documented as of this encounter
--- OUTSIDE RECORDS SUMMARY | 2025-04-30 14:39 | XMS_ITS | Encounter Summary ---
Author Organization [facility] Address [address] [facility] [place] [address] Care Team Providers Care Program Counselor Name Role Phone Jose E Burns MD Primary Care Provider [phone] Encounter Details Date Type Department Care Team (Late st Contact Info) Description 12/31/2022 Clinisync Result Encounter [facility] External Department Unsolicited Wolfgang Hoffman DO [address] [facility] [address] [place], [place] [id number] Social History Tobacco Use Types Packs/Day Years [...] PM EDT Routine [facility] [address] [place] [phone] Ela Calvillo, [place] [address] [facility] [place] [phone] 07/17/2025 3:40 PM EST Visit [facility] [address] [facility] [place] [address] Wolfgang Hoffman, DO [address] [place] [address] [place] [address] documented as of this encounter Procedures Procedure [...] YO MESA Date: 2022-12-31 17:02 us Wolfgang Hoffman DO [facility] Final Result documented in this encounter Visit Diagnoses Not on filedocumented in this encounter Care Teams Program Counselor Relationship Specialty Start Date End Date Jose E Burns MD [address] [place] [address] PCP - General Family Medicine 02/16/23 documented as of this encounter
--- OUTSIDE RECORDS SUMMARY | 2025-04-30 14:39 | XMS_ITS | Encounter Summary ---
Author Organization [facility] Address [address] [facility] [place] [address] Care Team Providers Care Manufacturing Sr Engineer Name Role Phone Jose E Burns MD Primary Care Provider [phone] Encounter Details Date Type Department Care Team (Late st Contact Info) Description 01/11/2023 Abstract [facility] [address] [facility] [place] [address] Wolfgang Hoffman DO [address] [facility] [place] [address] Social History Tobacco Use Types Packs/Day [...] 3:40 PM EDT Routine [facility] [address] [place] [address] Ela Calvillo, [place] [address] [facility] [place] [address] 07/17/2025 3:40 PM EST Visit [facility] [address] [facility] [place] [address] Wolfgang Hoffman DO [address] [facility] [address] [place], [place] [phone] documented as of this encounter Visit Diagnoses Not on filedocumented in this encounter Care Teams Manufacturing Sr Engineer Relationship Specialty Start Date End Date Jose E Burns MD [address] [facility] [place] [address] PCP - General Family Medicine 02/16/23 documented as of this encounter
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
--- OUTSIDE RECORDS SUMMARY | 2025-04-30 14:39 | XMS_ITS | Encounter Summary ---
Author Organization [facility] Address [address] [place] [address] Care Team Providers Care Assistant Director Of Admissions Name Role Phone Jose E Burns MD Primary Care Provider [phone] Encounter Details Date Type Department Care Team (Late Contact Info) Description 04/17/2025 Bamboo flowsheet [facility] [address] [place] [address] Ela Calvillo NP [address] [place] [address] Social History Tobacco Use Types Packs/Day Years [...] PM EDT Routine [facility] [address] [facility] [facility] [address] Ela Calvillo, SKIMMER SCOOP OPERATOR [address] [place] [address] 07/17/2025 3:40 PM EST Visit [facility] [address] [place] [address] Wolfgang Hoffman DO [address] [place] [address] documented as of this encounter Visit Diagnoses Not on filedocumented in this encounter Care Teams Assistant Director Of Admissions Relationship Specialty Start Date End Date Jose E Burns MD [address] [place] [address] PCP - General Family Medicine 02/16/23 documented as of this encounter
--- OUTSIDE RECORDS SUMMARY | 2025-04-30 14:39 | XMS_ITS ---
Author Organization [facility] Address [address] [place] [address] Care Team Providers Care Geothermal Sheet Metal Worker Name Role Phone Jose E Burns MD Primary Care Provider [phone] [facility] ([facility]) Status:Enrolled (Active) Start date:02/13/2025 Enrollment date:02/15/2025 Enrollment reason:Identified by Health Plan Case Team Name Relationship Phone Gogo Montiel LPN(Responsible Staff) Licensed [facility] Nurse [phone] Continued Care and Services Coordination
--- OUTSIDE RECORDS SUMMARY | 2025-04-30 14:39 | XMS_ITS | Clinical Summary ---
Author Organization [facility] Address [id number] [address] [place] [address] Care Team Providers Care Seismograph Helper Name Role Phone Jose E Burns MD Primary Care Provider [phone] Allergies No known active allergies Medications FLUoxetine [...] exists Medical Devices Not on file [place] [address] [place] [address] MEDICAID Care Teams Seismograph Helper Relationship Specialty Start Date End Date Jose E Burns MD PCP - General Family Medicine 03/25/21
--- OUTSIDE RECORDS SUMMARY | 2025-04-30 14:39 | XMS_ITS | Clinical Summary ---
Author Organization [facility] Address [address], [address] [place] [address] Care Team Providers Care Evp And Chief Operating Officer Name Role Phone Unavailable Primary Care Provider [...] drink = 0.6 oz pur e alcohol) [facility] Utilities Answer Date Recorded In the past 12 months has e [employer], gas, oil, or water company threatened to [...] place to sleep or slept in a chcf (including now)? No 08/30/2023 Interpersonal Safety ([facility] HRSN) Answer Date Recorded How often [...] Answer Date Recorded How often does anyone, edstinyu kady family and friends, physically hurt you? Patient declined 08/30/2023 How often does anyone, destinyu kady family and friends, scream or curse [...] Chlamydia/GC screen 2019 Hepatitis C screen 2021 Pap smear 2024 Flu vaccine (#1) 03/08/2025 06/23/2021 COVID-19 Vaccine ( season) 2025 DTaP/Tdap/Td vaccine (7 - Td or Tdap) [...] Meningococcal B vaccine Completed 06/23/2021, 05/04 Insurance Advance Directives * Full Code (Latest Code Status on File) Date Activated Date Inactivated Comments 08/30/2023 12:38 PM 08/31/2023 7:34 PM
--- OUTSIDE RECORDS SUMMARY | 2025-04-30 14:39 | XMS_ITS | Encounter Summary ---
Author Organization [facility] Address [address] [place] [address] Care Team Providers Care Spanish Translator Name Role Phone Jose E Burns MD Primary Care Provider [phone] Encounter Details Date Type Department Care Team (Latest Contact Info) Description 04/22/2025 Travel Social History Tobacco Use Types Packs/Day Years [...] Routine [facility] [address] [place] [address] Ela Calvillo, [address] [place] [address] 07/17/2025 3:40 PM EST Visit [facility] [address] [place] [address] Wolfgang Hoffman, [address] [place] [address] documented as of this encounter Visit Diagnoses Not on filedocumented in this encounter Care Teams Spanish Translator Relationship Specialty Start Date End Date Jose E Burns MD [address] [facility] [place] [address] PCP - General Family Medicine 02/16/23 documented as of this encounter
--- OUTSIDE RECORDS SUMMARY | 2025-04-30 14:39 | XMS_ITS | Encounter Summary ---
Author Organization [facility] Address [address] [facility] [place] [address] Care Team Providers Care Assistant Purchasing Manager Name Role Phone Jose E Burns MD Primary Care Provider [phone] Encounter Details Date Type Department Care Team (Late st Contact Info) Description 12/31/2022 Clinisync Result Encounter [facility] External Department Unsolicited Wolfgang Hoffman DO [address] [facility] [address] [place], [place] [id number] Social History Tobacco Use Types Packs/Day Years [...] PM EDT Routine [facility] [address] [place] [phone] Ela Calvillo, [place] [address] [facility] [place] [phone] 07/17/2025 3:40 PM EST Visit [facility] [address] [place] [phone] Wolfgang Hoffman, [address] [place] [address] documented as of this encounter Procedures Procedure [...] authenticated by: YO MESA Date: 2022-12-31 17:18 us Wolfgang Hoffman DO [facility] Final Result documented in this encounter Visit Diagnoses Not on filedocumented in this encounter Care Teams Assistant Purchasing Manager Relationship Specialty Start Date End Date Jose E Burns MD [address] [place] [phone] PCP - General Family Medicine 02/16/23 documented as of this encounter
--- OUTSIDE RECORDS SUMMARY | 2025-04-30 14:39 | XMS_ITS | Encounter Summary ---
Author Organization [facility] Address [address] [place] [address] Care Team Providers Care Automatic Data Processing Planner Name Role Phone Jose E Burns MD Primary Care Provider [phone] Encounter Details Date Type Department Care Team (Late st Contact Info) Description 02/13/2025 Abstract [facility] [address] [place] [address] Gogo Montiel LPN [address] [place] [address] Social History Tobacco Use Types Packs/Day Years Used Date Smoking Tobacco: Never Assessed PHQ-2 Answer Date Recorded Patient Health Questionnaire-2 Score 0 02/15/2025 Estimated Date of Delivery Comme nts Yes 07/10/2025 Based on Ultraso und, FHR-[id number] Sex and Gender Information Value Date Recorded Sex Assigned at Not on file Legal Sex Female 6:34 PM EDT Gender Identity Not on file Sexual Orientation Not on file documented as of this encounter Functional Status * Over the past 2 weeks, how often have you been bothered by any of the following problems? Question Answer Date of Assessment Author Little interest or pleasure in doing things Not at all 02/15/2025 10:37 AM EDT Gogo Montiel LP N Feeling down, depressed, or hopeless Not at all 02/15/2025 10:37 AM EDT Gogo Montiel LP N Patient Health Questionnaire -2 Score 0 02/15/2025 10:37 AM EDT Gogo Montiel LP N documented as of this encounter Plan of Treatment Upcoming Encounters Date Type Department Care Team ([facility] st Contact Info) Description 05/15/2025 3:40 PM EDT Routine [facility] [address] [place] [phone] Ela Calvillo, [place] [address] [facility] [place] [phone] 07/17/2025 3:40 PM EST Visit [facility] [address] [place] [phone] Wolfgang Hoffman DO [address] [facility] [place] [address] documented as of this encounter Visit Diagnoses Not on filedocumented in this encounter Care Teams Automatic Data Processing Planner Relationship Specialty Start Date End Date Jose E Burns MD [address] [facility] [address] PCP - General Family Medicine 02/16/23 documented as of this encounter
--- OUTSIDE RECORDS SUMMARY | 2025-04-30 14:39 | XMS_ITS | Encounter Summary ---
Author Organization [facility] Address [address] [facility] [place] [address] Care Team Providers Care Halal Meat Packer Name Role Phone Jose E Burns MD Primary Care Provider [phone] Encounter Details Date Type Department Care Team (Late st Contact Info) Description 12/18/2024 Abstract [facility] [address] [place] [address] Keyla Rodriguez MA Social History Tobacco [...] 3:40 PM EDT Routine [facility] [address] [place] [address] Ela Calvillo, [address] [place] [address] 07/17/2025 3:40 PM EST Visit [facility] [address] [facility] [place] [phone] Wolfgang Hoffman DO [address] [facility] [place] [address] documented as of this encounter Visit Diagnoses Not on filedocumented in this encounter Care Teams Halal Meat Packer Relationship Specialty Start Date End Date Jose E Burns MD [address] [facility] [place] [phone] PCP - General Family Medicine 02/16/23 documented as of this encounter
--- OUTSIDE RECORDS SUMMARY | 2025-04-30 14:39 | XMS_ITS | Clinical Summary ---
Author Organization [facility] Address [address] [place] [address] Care Team Providers Care Engraver Tender Name Role Phone Jose E Burns MD Primary Care Provider [phone] Allergies No known active allergies Medications 28-0.8 MG tablet Take 1 tablet by mouth Daily Active metroNIDAZOLE (Metrogel) 0.75 % vaginal gelIndications:B acterial vaginosis Patient to use vaginally nightly for 5 nights, then twice weekly thereafter for 4 months. 140 g 3 5 Active citalopram (CeleXA) 20 MG tabletIndication s:Anxiety, generalized Take 1 tablet (20 mg) by mouth Daily 30 tablet 5 5 09/30/19 26 Active Active Problems Problem Noted Date Diagnosed Date Third trimester ([facility]) 12/27/2022 Psychogenic nonepileptic seizure 11/29/2020 Migraines 11/28/2020 Deterioration in school performance 01/21/2015 Nocturnal enuresis 12/12/2012 ADHD (attention deficit hyperactivity disorder) 01/11/2012 Estimated Date of Delivery Comme nts Yes 07/10/2025 Based on Ultraso und, FHR-158 Encounters Date Type Department Care Team Description 04/29/2025 3:20 PM EDT Routine [facility] [address] [facility] [place] [address] Wolfgang Hoffman DO Third trimester ([facility]); 29 weeks gestation of ([facility]); Psychogenic nonepileptic seizure ; Diabetes mellitus screening 04/29/2025 Bamboo flowsheet [facility] [address] [facility] [place] [address] Wolfgang Hoffman, 04/22/2025 Travel 04/17/2025 3:20 PM EDT Routine [facility] [address] [facility] [place] [address] Ela Calvillo, [place] Third trimester ([facility]); 28 weeks gestation of ([facility]) 04/17/2025 Bamboo flowsheet [facility] [address] [facility] [place] [address] Ela Calvillo, [place] 04/15/2025 Patient Outreach [facility] [address] [place] [address] Gogo Montiel, RAE[place] 04/03/2025 3:40 PM EDT Routine [facility] [place] [address] Wolfgang Hoffman DO Anxiety, generalized (Primary Dx); Second trimester ([facility]); 26 weeks gestation of ([facility]); History of psychogenic nonepileptic seizure 04/03/2025 Bamboo flowsheet [facility] [address] [facility] [facility] [place] [address] Wolfgang Hoffman DO 03/22/[address] [facility] [address] [facility] [place] [address] Mildred Mason LPN 03/20/2025 3:40 PM EDT Routine [facility] [place] [address] Gogo Pang PA Second trimester ([facility]); 24 weeks gestation of ([facility]); Diabetes mellitus screening; Yeast infection; BV (bacterial vaginosis); Urinary tract infection without hematuria, site unspecified 03/20/2025 Bamboo flowsheet [facility] [address] [place] [address] Gogo Pang PA 03/18/2025 Patient Outreach [place] [id number] [place] [address] Gogo Montiel LPN 03/05/2025 Telephone [facility] [address] [place] [address] Wolfgang Hoffman DO 02/25/2025 3:40 PM [place] [address] Wolfgang Hoffman DO Second trimester ([facility]); 20 weeks gestation of ([facility]) 02/25/2025 2:30 PM EDT Ancillary Procedure [facility] [address] [place] [address] Second trimester ([facility]); 16 weeks gestation of ([facility]); Screening, , for anatomic survey ([facility]) 02/15/2025 Patient Outreach [place] [address] [place] [address] Gogo Montiel LPN 02/13/2025 Abstract [place] [address] [place] [address] Gogo Montiel LPN 02/07/2025 [place] [address] Keyla Rodriguez MA 01/31/2025 Telephone [place] [address] Jennifer Lyman MA 01/29/2025 1:40 PM EDT Routine [facility] [place] [address] [place] [address] Gogo Pang PA Well woman exam with routine gynecological exam; Second trimester ([facility]); 16 weeks gestation of ([facility]); Vaginal discharge; STD exposure; Screening, , for anatomic survey ([facility]) 01/29/2025 Clinisync Result Encounter [facility] External Department Unsolicited Gogo Pang PA 01/29/2025 External Result Encounter [facility] External Department Unsolicited Gogo Pang PA 01/29/2025 Bamboo flowsheet [facility] [address] [place] [address] Gogo Pang PA from Last 3 Months Social History Tobacco [...] (151 lb) 04/29/2025 3:42 PM EDT Height 167.6 cm (5' 6 ) 12/21/2022 12:00 PM EDT Body Mass Index 24.37 12/21/2022 12:00 PM EDT Plan of Treatment Upcoming Encounters Date Type Department Care Team (Late st Contact Info) Description 05/15/2025 3:40 PM EDT Routine [facility] [address] [place] [phone] Ela Calvillo, [place] [address] [place] [address] 07/17/2025 3:40 PM EST Visit [facility] [address] [facility] [place] [address] Wolfgang Hoffman, DO [address] [place], [place] [phone] Health Maintenance Due Date Last Done Comments Influenza Vaccine (#1) 2025 06/23/2021, 2015, 07/29/2011 Procedures Procedure Name Priority Date/Time Associated Diagnosis Comments POCT URINALYSIS DIPSTICK Routine 04/29/2025 3:42 PM EDT Third trimester ([facility]) POCT URINALYSIS DIPSTICK Routine 04/17/2025 3:32 PM EDT Third trimester ([facility]) RECURRENT VAGINITIS (HTRX) Routine 03/20/2025 4:45 PM EDT URINARY TRACT INFECTION (HTRX) Routine 03/20/2025 4:28 PM EDT POCT URINALYSIS DIPSTICK Routine 03/20/2025 4:13 PM EDT Second trimester ([facility]) POCT URINALYSIS DIPSTICK Routine 02/25/2025 3:26 PM EDT Second trimester ([facility]) 20 weeks gestation of ([facility]) US OB 14+ WEEKS ANATOMY SCAN Routine 02/25/2025 3:08 PM EDT Second trimester ([facility]) 16 weeks gestation of ([facility]) Screening, , for anatomic survey ([facility]) RECURRENT VAGINITIS (HTRX) Routine 01/29/2025 2:49 PM EDT IGP,APTIMA HPV,AGE GDLN Routine 01/29/2025 1:35 PM EDT PAP SMEAR Routine 01/29/2025 12:00 AM EDT from Last 3 Months Results * POCT urinalysis dipstick manually resulted (04/29/2025 3:42 PM EDT) Only the most recent of4 resultswithin the time period is included. Color, UA Yellow Clarity, UA Clear Glucose, [...] Positive Urine 04/29/2025 3:42 PM EDT Wolfgang Yasmin DO POINT OF CARE TEST ENTER/EDIT OR DERABLES Final Result * (ABNORMAL) RECURRENT VAGINITIS (HTRX) (03/20/2025 4:45 PM EDT) Only the most recent of2 resultswithin the time period is included. ATOPOBIUM VAGINAE 0 19.961 - 24.689 ppm 03/22/2025 7:27 AM EDT [facility] [place] ATOPOBIUM VAGINAE Not Detected 19.961 - 24.689 ppm 03/22/2025 7:27 AM EDT [facility] BVAB 2,3 (BACTERIAL VAGINOSIS ASSOCIATED BACTERIA 2, 3); MOBILUNCUS SPP 25.723(A) 19.961 - 24.689 ppm 03/22/2025 7:27 AM EDT [facility] BVAB 2,3 (BACTERIAL VAGINOSIS ASSOCIATED BACTERIA 2, 3); MOBILUNCUS SPP Detected(A) 19.961 - 24.689 ppm 03/22/2025 7:27 AM EDT [facility] POLY ALBICANS, PARAPSILOSIS, TROPICALIS 0 23.000 - 30.347 ppm 03/22/2025 7:27 AM EDT [facility] POLY ALBICANS, PARAPSILOSIS, TROPICALIS Not Detected 23.000 - 30.347 ppm 03/22/2025 7:27 AM EDT [facility] POLY GLABRATA 0 23.000 - 31.618 ppm 03/22/2025 7:27 AM EDT [facility] POLY GLABRATA Not Detected 23.000 - 31.618 ppm 03/22/2025 7:27 AM EDT [facility] POLY KRUSEI 0 23.000 - 30.873 ppm 03/22/2025 7:27 AM EDT [facility] POLY KRUSEI Not Detected 23.000 - 30.873 ppm 03/22/2025 7:27 AM EDT [facility] CHLAMYDIA TRACHOMATIS 0 23.000 - 31.586 ppm 03/22/2025 7:27 AM EDT [facility] CHLAMYDIA TRACHOMATIS Not Detected 23.000 - 31.586 ppm 03/22/2025 7:27 AM EDT [facility] GARDNERELLA VAGINALIS 27.041(A) 19.961 - 24.689 ppm 03/22/2025 7:27 AM EDT [facility] GARDNERELLA VAGINALIS Detected(A) 19.961 - 24.689 ppm 03/22/2025 7:27 AM EDT [facility] MEGASPHAERA (TYPES 1, 2) 0 19.961 - 24.689 ppm 03/22/2025 7:27 AM EDT [facility] MEGASPHAERA (TYPES 1, 2) Not Detected 19.961 - 24.689 ppm 03/22/2025 7:27 AM EDT [facility] NEISSERIA GONORRHOEAE 0 23.000 - 32.587 ppm 03/22/2025 7:27 AM EDT [facility] NEISSERIA GONORRHOEAE Not Detected 23.000 - 32.587 ppm 03/22/2025 7:27 AM EDT [facility] TRICHOMONAS VAGINALIS 0 23.000 - 31.995 ppm 03/22/2025 7:27 AM EDT [facility] TRICHOMONAS VAGINALIS Not Detected 23.000 - 31.995 ppm 03/22/2025 7:27 AM EDT [facility] MYCOPLASMA GENITALIUM 0 19.961 - 24.689 ppm 03/22/2025 7:27 AM EDT [facility] MYCOPLASMA GENITALIUM Not Detected 19.961 - 24.689 ppm 03/22/2025 7:27 AM EDT [facility] ERMB, C; MEFA 24.079(A) 23.000 - 27.500 ppm 03/22/2025 7:27 AM EDT [facility] ERMB, C; MEFA Detected(A) 23.000 - 27.500 ppm 03/22/2025 7:27 AM EDT [facility] TET B, TET M 23.681(A) 23.000 - 27.500 ppm 03/22/2025 7:27 AM EDT [facility] TET B, TET M Detected(A) 23.000 - 27.500 ppm 03/22/2025 7:27 AM EDT [facility] Tissue 03/20/2025 4:45 PM EDT 03/22/2025 2:18 AM EDT us Ela Calvillo NP LAB BLOOD ORDERABLES Final Re sult [facility] [address] [address] * URINARY TRACT INFECTION (HTRX) (03/20/2025 4:28 PM EDT) ACINETOBACTER BAUMANII 0 19.961 - 24.689 ppm 03/22/2025 9:02 AM EDT [facility] ACINETOBACTER BAUMANII Not Detected 19.961 - 24.689 ppm 03/22/2025 9:02 AM EDT [facility] CITROBACTER FREUNDII 0 23.000 - 32.015 ppm 03/22/2025 9:02 AM EDT [facility] CITROBACTER FREUNDII Not Detected 23.000 - 32.015 ppm 03/22/2025 9:02 AM EDT [facility] ENTEROBACTER AEROGENES, CLOACAE 0 23.000 - 32.290 ppm 03/22/2025 9:02 AM EDT [facility] ENTEROBACTER AEROGENES, CLOACAE Not Detected 23.000 - 32.290 ppm 03/22/2025 9:02 AM EDT [facility] ENTEROCOCCUS FAECALIS, FAECIUM 0 26.000 - 33.043 ppm 03/22/2025 9:02 AM EDT [facility] ENTEROCOCCUS FAECALIS, FAECIUM Not Detected 26.000 - 33.043 ppm 03/22/2025 9:02 AM EDT [facility] ESCHERICHIA COLI 0 23.000 - 28.500 ppm 03/22/2025 9:02 AM EDT [facility] ESCHERICHIA COLI Not Detected 23.000 - 28.500 ppm 03/22/2025 9:02 AM EDT [facility] KLEBSIELLA PNEUMONIAE, OXYTOCA 0 23.000 - 31.865 ppm 03/22/2025 9:02 AM EDT [facility] KLEBSIELLA PNEUMONIAE, OXYTOCA Not Detected 23.000 - 31.865 ppm 03/22/2025 9:02 AM EDT [facility] MORGANELLA MORGANII 0 19.961 - 24.689 ppm 03/22/2025 9:02 AM EDT [facility] MORGANELLA MORGANII Not Detected 19.961 - 24.689 ppm 03/22/2025 9:02 AM EDT [facility] PROTEUS MIRABILIS, VULGARIS 0 23.000 - 28.500 ppm 03/22/2025 9:02 AM EDT [facility] PROTEUS MIRABILIS, VULGARIS Not Detected 23.000 - 28.500 ppm 03/22/2025 9:02 AM EDT [facility] PSEUDOMONAS AERUGINOSA 0 23.000 - 31.801 ppm 03/22/2025 9:02 AM EDT [facility] PSEUDOMONAS AERUGINOSA Not Detected 23.000 - 31.801 ppm 03/22/2025 9:02 AM EDT [facility] STAPHYLOCOCCUS AUREUS 0 26.000 - 31.595 ppm 03/22/2025 9:02 AM EDT [facility] STAPHYLOCOCCUS AUREUS Not Detected 26.000 - 31.595 ppm 03/22/2025 9:02 AM EDT [facility] STREPTOCOCCUS AGALACTIAE (GROUP B STREP) 0 26.000 - 32.435 ppm 03/22/2025 9:02 AM EDT [facility] STREPTOCOCCUS AGALACTIAE (GROUP B STREP) Not Detected 26.000 - 32.435 ppm 03/22/2025 9:02 AM EDT [facility] POLY ALBICANS, PARAPSILOSIS, TROPICALIS 0 23.000 - 30.347 ppm 03/22/2025 9:02 AM EDT [facility] POLY ALBICANS, PARAPSILOSIS, TROPICALIS Not Detected 23.000 - 30.347 ppm 03/22/2025 9:02 AM EDT [facility] POLY GLABRATA 0 23.000 - 31.618 ppm 03/22/2025 9:02 AM EDT [facility] POLY GLABRATA Not Detected 23.000 - 31.618 ppm 03/22/2025 9:02 AM EDT [facility] POLY KRUSEI 0 23.000 - 30.873 ppm 03/22/2025 9:02 AM EDT [facility] POLY KRUSEI Not Detected 23.000 - 30.873 ppm 03/22/2025 9:02 AM EDT [facility] SERRATIA MARCESCENS 0 23.000 - 31.581 ppm 03/22/2025 9:02 AM EDT [facility] SERRATIA MARCESCENS Not Detected 23.000 - 31.581 ppm 03/22/2025 9:02 AM EDT [facility] [place] [place] STREPTOCOCCUS PYOGENES (GROUP A STREP) 0 19.961 - 24.689 ppm 03/22/2025 9:02 AM EDT [facility] STREPTOCOCCUS PYOGENES (GROUP A STREP) Not Detected 19.961 - 24.689 ppm 03/22/2025 9:02 AM EDT [facility] STAPHYLOCOCCUS EPIDERMIDIS, HAEMOLYTICUS, LUGDUNENSIS, SAPROPHYTICUS (URINA 0 19.961 - 24.689 ppm 03/22/2025 9:02 AM EDT [facility] STAPHYLOCOCCUS EPIDERMIDIS, HAEMOLYTICUS, LUGDUNENSIS, SAPROPHYTICUS (URINA Not Detected 19.961 - 24.689 ppm 03/22/2025 9:02 AM EDT [facility] STAPHYLOCOCCUS EPIDERMIDIS, HAEMOLYTICUS, LUGDUNENSIS, SAPROPHYTICUS (URINA 0 19.961 - 24.689 ppm 03/22/2025 9:02 AM EDT [facility] STAPHYLOCOCCUS EPIDERMIDIS, HAEMOLYTICUS, LUGDUNENSIS, SAPROPHYTICUS (URINA Not Detected 19.961 - 24.689 ppm 03/22/2025 9:02 AM EDT [facility] Urine 03/20/2025 4:28 PM EDT 03/22/2025 2:18 AM EDT us Ela Calvillo NP LAB BLOOD ORDERABLES Final Re sult [facility] [address] [address] * US OB 14+ weeks anatomy scan (02/25/2025 3:08 PM EDT) Anatomical Region Laterality Modality Body Ultrasound 02/26/2025 7:26 AM EDT Narrative 02/26/2025 7:26 AM EDT EXAM: US OB 14+ WEEKS ANATOMY SCAN [...] II, MD, PHD at 26-Feb-2025 07:25:53 AM [facility] Procedure Note Fina Wright MD - 02/26/2025 EXAM: US OB 14+ WEEKS ANATOMY SCAN HISTORY: anatomy. COMPARISON: Ob ultrasound 12/06/2024. TECHNIQUE: Two-dimensional transabdominal grayscale ultrasound imaging ofthe pelvis was performed. FINDINGS: Gestation: Single Presentation: Cephalic Cardiac Activity: 130 beats per minute Placental Location: Anterior with no sonographic abnormalitiesidentified. Distance from Placental Tip to Cervix: 7.1 [...] is 20 weeks 6 days (+/- 10 daysgestation). Estimated Weight: 383 grams, +/- 57 grams [...] gestation 20 weeks, 5 days by LMP. Today'sultrasound measurements correlate with a gestational age of 20 weeks 6days. Estimated weight is 383 grams, +/- 57 grams ( 0 lb 14 oz)which correlates to 54 %. TRACI by today's ultrasound is 07/09/2025. 2. Unremarkable ultrasound of the anatomy. Interpreted by: Electronically signed by FINA WRIGHT II, MD, PHD 07:25:53 AM [facility] us Gogo MARTINEZ IMG OB US PROCEDURES Final Resul t * IGP,APTIMA HPV,AGE GDLN (01/29/2025 1:35 PM EDT) AGE GDLN ACOG TESTING Note . [facility] Comment: TESTS RESULT FLAG UNITS REF RANGE LAB Clinician Provided Cytology Information Source.............Cervix No. of containers..01 ThinPrep Vial Age Cam GREENE Audra... FLAG LEGEND: L-Low Normal,H-High Normal,LL-Alert Low,HH-Alert High <-Panic Low,>-Panic High,A-Abnormal,AA-Critical Abnormal Performed at: 01 =[facility] [address] [place] [address] Meseret Eden MD, IGP, RFX APTIMA HPV ASCU Note . [facility] Comment: TESTS RESULT FLAG UNITS REF RANGE LAB DIAGNOSIS: 02 NEGATIVE FOR INTRAEPITHELIAL LESION OR MALIGNANCY. FUNGAL ORGANISMS MORPHOLOGICALLY CONSISTENT WITH POLY SPECIES ARE PRESENT. THIS SPECIMEN WAS RESCREENED PART OF OUR FINISH GRINDER PROGRAM. Specimen adequacy: 02 Satisfactory for evaluation. No endocervical component is identified. Performed by: 02 Barbie Ceja, Steam Fitter Supervisor Maintenance ([facility]) QC reviewed by: 02 Rhea Hoffmann, Steam Fitter Supervisor Maintenance ([facility]) . 02 Note: Note 02 The Pap [...] <-Panic Low,>-Panic High,A-Abnormal,AA-Critical Abnormal Performed at: [address] [address] Meseret Eden MD, Performed at: = - [facility] [address] [id number] Charger Tester: Meseret Eden MD, Phone: [phone] Performed at: [address] [id number] Charger Tester: Meseret Eden MD, Phone: [phone] 01/29/2025 1:35 PM EDT 01/29/2025 9:05 PM EDT Narrative [facility] - 02/04/2025 9:08 AM EDT SPATULA-ALONE CERVIX Gogo MARTINEZ LAB BLOOD ORDERABLES Final Resul t [facility] * Pap Smear (01/29/2025 12:00 AM EDT) Swab Cervical swab / Unknown Gogo Poly PA LAB CYTOLOGY ORDERABLES Final Re sult [facility]TER[facility] from Last 3 Months Insurance [employer] Care Teams Engraver Tender Relationship Specialty Start Date End Date Jose E Burns MD [address] [facility] [place] [id number] PCP - General Family Medicine 02/16/23
--- OUTSIDE RECORDS SUMMARY | 2025-04-30 14:44 | XMS_ITS | CCD ---
Author Organization [facility] Care Team Providers Care Rn Admit Name Role Phone YASMIN ., DR ALLEN [...] Unavailable YASMIN ., DR ALLEN Attending Unavailable CLARKSON, DR YO [employer] Unavailable YASMIN ., [...] AVILA Unavailable Rashard Montez Primary Care Physician [phone] Rashard Montez Referring Unavailable Alicja LINARES Attending [...] source) amanda allergenic extract Drug Allergy [facility] Repository (1 source) Unable to obtain; Translations: [Unable to obtain] Propensity to adverse reactions (disorder) [facility] Repository (1 source) No Known Medication Allergies; Translations: [No Known Medication Allergies] Propensity to adverse reactions (disorder) [facility] Repository Medications Current Medications Medication Drug Class(es) Dates Sig (Normalized) Sig (Original) acetaminophen 500 mg oral tablet (2 sources) Start: 10-03-2023 take 2 tablets by mouth every six hours acetaminophen (TYLENOL EXTRA STRENGTH) 500 mg tablet Take 2 tablets (1,000 mg total) by mouth every 6 (six) hours. 30 tablet 0 10/03/2023 Active [id number] 200 actuat albuterol 0.09 mg/actuat metered dose [...] disintegrating tablet Indications: Nausea and vomiting in ([facility]) Take 1 tablet (4 mg) [...] 03-20-2025 Episodic Other aftercare (1 source) Other long-term (current) drug therapy; Translations: [OTH REQUIREMENTS ENGINEER CURRENT DRUG THERAPY] Onset: 11-08-2022 Episodic Other [...] applicable or unspecified; Translations: [MAT CARE OTH NM FTL GRTH 3RD TM UNS] Onset: 12-31-2022 [...] UA Negative Negative - 4(70) +++ mg/dL [facility] Blood, UA Negative Negative - 50 Blayne/mcL [facility] Clarity, UA Clear [facility] re Color, UA Yellow [facility] Glucose, UA Negative Negative - 1999(110) ++++ mg/dL [facility] Interpretation and review of laboratory results Normal [facility] Ketones, UA Negative Negative - 160(16) ++++ mg/dL [facility] Leukocytes, UA Negative Negative - 500+++ Jo/mcL [facility] Nitrite, UA Negative Negative - Positive [facility] pH, UA 6 5 - 9 [facility] e Protein, UA 1+ Negative - 1999(20) ++++ mg/dL [facility] Spec Grav, UA 1.02 1 - 1.03 [facility] Urobilinogen, UA 1.0 0.2 - 12 mg/dL [facility] Urinalysis macro (dipstick) panel (U)on 04-17-2025 Bilirubin, UA Negative Negative - 4(70) +++ mg/dL [facility] Blood, UA Negative Negative - 50 Blayne/mcL [facility] Clarity, UA Clear [facility] re Color, UA Yellow [facility] Glucose, UA Negative Negative - 1999(110) ++++ mg/dL [facility] Interpretation and review of laboratory results Normal [facility] re Ketones, UA Negative Negative - 160(16) ++++ mg/dL [facility] Leukocytes, UA Negative Negative - 500+++ Jo/mcL [facility] Nitrite, UA Negative Negative - Positive [facility] pH, UA 6 5 - 9 [facility] e Protein, UA Negative Negative - 1999(20) ++++ mg/dL [facility] Spec Grav, UA 1.02 1 - 1.03 [facility] Urobilinogen, UA 0.2 0.2 - 12 mg/dL [facility] Urinalysis macro (dipstick) panel (U)on 03-20-2025 Bilirubin, UA Negative Negative - 4(70) +++ mg/dL [facility] Blood, UA Negative Negative - 50 Blayne/mcL [facility] Clarity, UA Clear [facility] re Color, UA Yellow [facility] Glucose, UA Negative Negative - 1999(110) ++++ mg/dL [facility] Interpretation and review of laboratory results Abnormal [facility] re Ketones, UA Negative Negative - 160(16) ++++ mg/dL [facility] Leukocytes, UA Positive Negative - 500+++ Jo/mcL [facility] Comment on above: 2+ Nitrite, UA Negative Negative - Positive [facility] pH, UA 6 5 - 9 [facility] Protein, UA Negative Negative - 1999(20) ++++ mg/dL [facility] Spec Grav, UA 1.025 1 - 1.03 [facility] Urobilinogen, UA 0.2 0.2 - 12 mg/dL [facility] US OB 14+ WEEKS ANATOMY [...] II, MD, PHD at 26-Feb-2025 07:25:53 AM [facility] Normal Not Available Comment on above: Order Comment: US OB ANATOMY SINGLE W US OB CERVICAL LENGTH Estimated Date of Delivery: 07/10/25 Gestational Age as of 01/29/2025: 16w6d Urinalysis macro (dipstick) panel (U)on 02-25-2025 Bilirubin, UA Negative Negative - 4(70) +++ mg/dL [facility] Blood, UA Negative Negative - 50 Blayne/mcL [facility] Clarity, UA Clear [facility] Color, UA Yellow [facility] Glucose, UA Negative Negative - 2000(110) ++++ mg/dL [facility] Interpretation and review of laboratory results Normal [facility] re Ketones, UA Positive Negative - 160(16) ++++ mg/dL [facility] Leukocytes, UA Negative Negative - 500+++ Jo/mcL [facility] Nitrite, UA Negative Negative - Positive [facility] pH, UA 6.5 5 - 9 [facility] e Protein, UA Negative Negative - 1999(20) ++++ mg/dL [facility] Spec Grav, UA 1.205 1 - 1.03 [facility] Urobilinogen, UA 1.0 0.2 - 12 mg/dL [facility] IGP,APTIMA HPV,AGE GDLNon AGE GDLN ACOG TESTING Note . [facility] Comment on above: TESTS RESULT FLAG UN [facility] REF RANGE LAB Clinician Provided Cytology Information Source.............Cervix No. of containers..01 ThinPrep Vial Age Algo ACOG Audra... FLAG LEGEND: L-Low Normal,H-High Normal,LL-Alert Low,HH-Alert High <-Panic Low,>-Panic High,A-Abnormal,AA-Critical Abnormal Performed at: 01 =[facility] [address] [address] Meseret Eden MD, IGP, RFX APTIMA HPV ASCU Note . [facility] Comment on above: TESTS RESULT FLAG UN ITS REF RANGE LAB DIAGNOSIS: 02 NEGATIVE FOR INTRAEPITHELIAL LESION OR MALIGNANCY. FUNGAL ORGANISMS MORPHOLOGICALLY CONSISTENT WITH POLY SPECIES ARE PRESENT. THIS SPECIMEN WAS RESCREENED PART OF OUR LABEL MAKER PROGRAM. Specimen adequacy: 02 Satisfactory for evaluation. No endocervical component is identified. Performed by: 02 Barbie Ceja, Slip Presser (ASC) QC reviewed by: 02 Rhea Hoffmann, Slip Presser ([facility]) . 02 Note: Note 02 The Pap [...] <-Panic Low,>-Panic High,A-Abnormal,AA-Critical Abnormal Performed at: [address] [place] [address] Meseret Eden MD, Performed at: = - [facility] [address] [id number] Windshield Wiper Repairer: Meseret Eden MD, Phone: [phone] Performed at: [facility] [address] [id number] Windshield Wiper Repairer: Meseret Eden MD, Phone: [phone] [facility] e RECURRENT VAGINITIS (HTRX)on 01-30-2025 ATOPOBIUM VAGINAE 26.856 Abnormal [facility]care ATOPOBIUM VAGINAE Detected Abnormal [facility] BVAB 2,3 (BACTERIAL VAGINOSIS ASSOCIATED BACTERIA 2, 3); MOBILUNCUS SPP 25.681 Abnormal [facility] BVAB 2,3 (BACTERIAL VAGINOSIS ASSOCIATED BACTERIA 2, 3); MOBILUNCUS SPP Detected Abnormal [facility] POLY ALBICANS, PARAPSILOSIS, TROPICALIS 0 [facility] POLY ALBICANS, PARAPSILOSIS, TROPICALIS Not detected [facility] POLY GLABRATA 0 [facility] POLY GLABRATA Not detected [facility] POLY KRUSEI 0 [facility] Healt h[facility] POLY KRUSEI Not detected [facility] CHLAMYDIA TRACHOMATIS 0 [facility] CHLAMYDIA TRACHOMATIS Not detected [facility] ERMB, C; MEFA 18.156 Abnormal [facility] Health care ERMB, C; MEFA Detected Abnormal [facility] care GARDNERELLA VAGINALIS 24.184 Abnormal [facility] GARDNERELLA VAGINALIS Detected Abnormal [facility] Interpretation and review of laboratory results Abnormal [facility] re MEGASPHAERA (TYPES 1, 2) 0 [facility] MEGASPHAERA (TYPES 1, 2) Not detected [facility] MYCOPLASMA GENITALIUM 0 [facility] MYCOPLASMA GENITALIUM Not detected [facility] NEISSERIA GONORRHOEAE 0 [facility] NEISSERIA GONORRHOEAE Not detected [facility] TET B, TET M 19.057 Abnormal [facility] Healthc are TET B, TET M Detected Abnormal [facility] Health[facility] are TRICHOMONAS VAGINALIS 0 [facility] TRICHOMONAS VAGINALIS Not detected [facility] BOX TESTon 12-07-2024 BOX TEST SENT OUT [facility] BOX1 [facility] BOX2 12/07/2024 [facility] UN[facility] BOX [facility] HCG ( test) Ql (U)o n 12-06-2024 Interpretation and review of laboratory results Abnormal [facility] re Preg Test, Ur Positive Negative [facility] Health care [facility] US OB [...] II, MD, PHD at 09-Dec-2024 08:55:08 PM [facility] Normal Not Available Comment on above: Order Comment: US OB TRANSVAGINAL No LMP recorded. Urinalysis macro (dipstick) panel (U)on 12-06-2024 Bilirubin, UA Negative Negative - 4(70) +++ mg/dL [facility] Blood, UA Positive Negative - 50 Blayne/mcL [facility] Comment on above: trace-intact Clarity, UA Clear [facility] Health[facility] re Color, UA Yellow [facility] Glucose, UA Negative Negative - 1999(110) ++++ mg/dL [facility] Interpretation and review of laboratory results Abnormal [facility] re Ketones, UA Negative Negative - 160(16) ++++ mg/dL [facility] Leukocytes, UA Trace Negative - 500+++ Jo/mcL [facility] Nitrite, UA Negative Negative - Positive [facility] pH, UA 6 5 - 9 [facility] e Protein, UA Negative Negative - 1999(20) ++++ mg/dL [facility] Spec Grav, UA 1.02 1 - 1.03 [facility] Urobilinogen, UA 0.2 0.2 - 12 mg/dL [facility] TBH PREG QUANT HCGon 11-02- 025 HCG QUANTITATIVE 494 mIU/mL [facility]care Comment on above: 5-50 0.2-1 WEEK 50-500 1-2 WEEKS 100-5,000 2-3 WEEKS 500-10,000 3-4 WEEKS 1,000-50,000 4-5 WEEKS 10,000-100,000 5-6 WEEKS 15,000-200,000 6-8 WEEKS 10,000-100,000 2-3 MONTHS [facility] CBC WITH AUTO DIFFon BASOPHILS ABSOLUTE AUTO 0.1 [facility] Basophils/100 WBC (Bld) 0.7 % 0.2 - 2.0 % [facility] Eosinophils/100 WBC (Bld) 4.9 % 0.9 - 7.0 % [facility] Erythrocyte distribution width (RBC) [Ratio] 11.8 % 11.0 - 15.0 % [facility] Hematocrit (Bld) [Volume fraction] 44.7 % 36.0 - 48.0 % [facility] Hemoglobin (Bld) [Mass/Vol] 15.7 g/dL 12.0 - 16.0 g/dL [facility] IMMATURE GRANULOCYTES ABS AUTO 0.02 [facility] Immature granulocytes/100 WBC (Bld) 0.3 % 0.0 - 0.5 % [facility] LYMPHOCYTES ABSOLUTE AUTO 3.1 [facility] Lymphocytes/100 WBC (Bld) 42 % 20.5 - 60.0 % [facility] MCH (RBC) [Entitic mass] 29.5 pg 26.7 - 34.0 pg [facility] MCHC (RBC) [Mass/Vol] 35.1 g/dL 29.9 - 35.2 g/dL [facility] MCV (RBC) [Entitic vol] 84 fL 81.0 - 99.0 fL [facility] MONOCYTES ABSOLUTE AUTO 0.5 [facility] Monocytes/100 WBC (Bld) 7.3 % 1.7 - 12.0 % [facility] NEUTROPHILS ABSOLUTE AUTO 3.3 [facility] Neutrophils/100 WBC (Bld) 44.8 % [...] ( test) Ql (U) Negative Normal NEG [facility] Comment on above: Performed By: #### 2 106-3 #### [facility] ([id number]) [address] [facility], [place] [address] Surgical Pathologyon 024 Surgical Pathology Normal [facility] Comment on above: Result Comment: [facility] [address] [place] [address] Surgical Pathology Consultation Patient Name:KEMI IPPER:2005 (Age: 18)Gender:FTaken:4Reported:10/06/2023hysician(s):Louise Gama MD ([phone])Copy To: Rec. #:[id number]: #[id number] Final Pathologic Diagnosis Gallbladder, cholecystectomy: - Chronic cholecystitis and cholesterolosis. - Benign reactive lymph node. Report Electronically Signed Out eak/10/06/2023Serena Quintanilla MD Interpretation performed at [facility], [address] [place] [address], License number: [id number]. Clinical History Biliary colic. Gross Description Received [...] duct margin, bisected lymph node and a sales training representative section of the gallbladder neck are submitted in cassette A with additional sections from the gallbladder are submitted in cassette B (to include polypoid like projection). (2, ss, [id number], A???B, m2) [facility]/10/04/2023EAK Specimen(s) Received Gallbladder Fee Codes(s): 1; 69542 BASIC METABOLIC PANLon 09-28 Anion gap [Moles/Vol] 7 mmol/L Normal 5-15 [facility] Comment on above: Performed By: #### C BCA BMP, LIVR #### [facility] ([id number]) [address] [address] [place] [address] Calcium [Mass/Vol] 9.0 mg/dL Normal 8.5-10.5 [facility] Comment on above: Performed By: #### C BCA BMP, LIVR #### [facility] ([id number]) [address] [address] [address] [place] [address] Chloride [Moles/Vol] 109 mmol/L Normal 98-109 [facility] Comment on above: Performed By: #### C BCA, BMP, LIVR #### [facility] ([id number]) [address] [address] [place] [address] CO2 [Moles/Vol] 27 mmol/L Normal 22-32 [facility] Comment on above: Performed By: #### C BCA, BMP, LIVR #### [facility] ([id number]) [address] [address] [place] [address] Creatinine [Mass/Vol] 0.98 mg/dL Normal 0.40-1.00 [facility] Comment on above: Result Comment: METH OD TRACEABLE TO IDMS STANDARD Performed By: #### C BCA, BMP, LIVR #### [facility] ([id number]) [address] [place] [address] GFR/1.73 sq M.predicted among non-blacks MDRD (S/P/Bld) [Vol rate/Area] 85 mL/min/{1.73_m2} Normal >59 [facility] Comment on above: Result Comment: Reported eGFR is based on the CKD-EPI 2020 equation that does not use a race coefficient. Performed By: #### C BCA, BMP, LIVR #### [facility] ([id number]) [address] [address] [place] [address] Glucose [Mass/Vol] 82 mg/dL Normal 65-99 [facility] Comment on above: Performed By: #### C BCA, BMP, LIVR #### [facility] ([id number]) [address] [place] [address] Potassium [Moles/Vol] 4.0 mmol/L Normal 3.5-5.0 [facility] Comment on above: Performed By: #### C BCA, BMP, LIVR #### [facility] ([id number]) [address] [place] [address] Sodium [Moles/Vol] 143 mmol/L Normal 134-146 [facility] Comment on above: Performed By: #### C BCA, BMP, LIVR #### [facility] ([id number]) [address] [address] [place] [address] Urea nitrogen [Mass/Vol] 7 mg/dL Normal 5-23 [facility] Comment on above: Performed By: #### C BCA, BMP, LIVR #### [facility] ([id number]) [address] [place] [address] Basic Metabolic Panelon -2 Anion gap [Moles/Vol] 7 mmol/L 5 - 15 mmol/L [facility] Calcium [Mass/Vol] 9.0 mg/dL 8.5 - 10. 5 mg/dL [facility] Chloride [Moles/Vol] 109 mmol/L 98 - 109 mmol/L [facility] CO2 [Moles/Vol] 27 mmol/L 22 - 32 mmol/L [facility] Creatinine [Mass/Vol] 0.98 mg/dL 0.40 - 1.00 mg/dL [facility] Comment on above: METHOD TRACEABLE TO [facility] STANDARD eGFR (CKD-EPI)non-race dependent 85 - PINF [facility] Comment on above: Reported eGFR is based on the CKD-EPI 2020 equation that does not use a race coefficient. Glucose [Mass/Vol] 82 mg/dL 65 - 99 mg/dL [facility] Potassium [Moles/Vol] 4.0 mmol/L 3.5 - 5.0 mmol/L [facility] Sodium [Moles/Vol] 143 mmol/L 134 - 146 mmol/L [facility] Urea nitrogen [Mass/Vol] 7 mg/dL 5 - 23 mg/dL [facility] CBC AND AUTO DIFFon 09-28-19 ABSOLUTE BASOPHIL 0.0 X10E9/L Normal 0.0-0.2 [facility] Comment on above: Performed By: #### C BCA, BMP, LIVR #### [facility] ([id number]) [address] [place] [address] ABSOLUTE NEUTROPHIL 2.8 X10E9/L Normal 1.5-6.6 [facility] Comment on above: Performed By: #### C BCA, BMP, LIVR #### [facility] ([id number]) [address] [place] [address] Basophils/100 WBC (Bld) 0.6 % Normal [facility] Comment on above: Performed By: #### C BCA, BMP, LIVR #### [facility] ([id number]) [address] [place] [address] Eosinophils (Bld) [#/Vol] 0.2 10*3/uL Normal 0.0-0.4 [facility] Comment on above: Performed By: #### C DEANGELO DING, LIVR #### [facility] ([id number]) [address] [place] [address] Eosinophils/100 WBC (Bld) 2.8 % Normal [facility] Comment on above: Performed By: #### C TIMUR BMP, LIVR #### [facility] ([id number]) [address] [address] [place] [address] Erythrocyte distribution width (RBC) [Ratio] 12.2 % Normal 11.5-15.0 [facility] Comment on above: Performed By: #### C TIMUR BMP, LIVR #### [facility] ([id number]) [address] [facility] [address] [place] [address] Hematocrit (Bld) [Volume fraction] 39.7 % Normal 35-47 [facility] Comment on above: Performed By: #### C DEANGELO DING, LIVR #### [facility] ([id number]) [address] [place] [address] Hemoglobin (Bld) [Mass/Vol] 13.6 g/dL Normal 11.7-15.5 [facility] Comment on above: Performed By: #### C TIMUR BMP, LIVR #### [facility] ([id number]) [address] [place] [address] Lymphocytes (Bld) [#/Vol] 2.2 10*3/uL Normal 1.0-3.5 [facility] Comment on above: Performed By: #### C TIMUR, BMP, LIVR #### [facility] ([id number]) [address] [place] [address] Lymphocytes/100 WBC (Bld) 38.4 % Normal [facility] Comment on above: Performed By: #### C BCA, BMP, LIVR #### [facility] ([id number]) [address] [place] [address] MCH (RBC) [Entitic mass] 29.6 pg Normal 27-34 [facility] Comment on above: Performed By: #### C BCA, BMP, LIVR #### [facility] ([id number]) [address] [place] [address] MCHC (RBC) [Mass/Vol] 34.3 g/dL Normal 32-36 [facility] Comment on above: Performed By: #### C BCA, BMP, LIVR #### [facility] ([id number]) [address] [place] [address] MCV (RBC) [Entitic vol] 87 fL Normal 80-100 [facility] Comment on above: Performed By: #### C BCA, BMP, LIVR #### [facility] ([id number]) [address] [facility] [address] [place] [address] Monocytes (Bld) [#/Vol] 0.5 10*3/uL Normal 0-0.9 [facility] Comment on above: Performed By: #### C BCA, BMP, LIVR #### [facility] ([id number]) [address] [place] [address] Monocytes/100 WBC (Bld) 9.2 % Normal [facility] Comment on above: Performed By: #### C BCA, BMP, LIVR #### [facility] ([id number]) [address] [address] [place] [address] Neutrophils/100 WBC (Bld) 49.0 % Normal [facility] Comment on above: Performed By: #### C BCA, BMP, LIVR #### [facility] ([id number]) [address] [place] [address] Platelet mean volume (Bld) [Entitic vol] 10.8 fL Normal 7-12 [facility] Comment on above: Performed By: #### DEANGELO Pruett BCA, LIVR #### [facility] ([id number]) [address] [place] [address] Platelets (Bld) [#/Vol] 212 10*3/uL Normal 150-450 [facility] Comment on above: Performed By: #### DEANGELO Pruett BCA, LIVR #### [facility] ([id number]) [address] [place] [address] RBC COUNT 4.60 X10E12/L Normal 3.80-5.20 [facility] Comment on above: Performed By: #### DEANGELO Pruett BCA, LIVR #### [facility] ([id number]) [address] [place] [address] WBC (Bld) [#/Vol] 5.7 10*3/uL Normal 4.0-11.0 [facility] Comment on above: Performed By: #### DEANGELO Pruett BCA, LIVR #### [facility] ([id number]) [address] [place] [address] CBC auto differentialon 09-09 Basophils (Bld) [#/Vol] 0.0 10*3/uL [facility] Basophils/100 WBC (Bld) 0.6 % [facility] Eosinophils (Bld) [#/Vol] 0.2 10*3/uL [facility] Eosinophils/100 WBC (Bld) 2.8 % [facility] Erythrocyte distribution width (RBC) [Ratio] 12.2 % 11.5 - 15.0 % [facility] Hematocrit (Bld) [Volume fraction] 39.7 % 35 - 47 % [facility] Hemoglobin (Bld) [Mass/Vol] 13.6 g/dL 11.7 - 15.5 g/dL [facility] Lymphocytes (Bld) [#/Vol] 2.2 10*3/uL [facility] Lymphocytes/100 WBC (Bld) 38.4 % [facility] MCH (RBC) [Entitic mass] 29.6 pg 27 - 34 pg [facility] MCHC (RBC) [Mass/Vol] 34.3 g/dL 32 - 36 g/dL [facility] MCV (RBC) [Entitic vol] 87 fL 80 - 100 fL [facility] Monocytes (Bld) [#/Vol] 0.5 10*3/uL [facility] Monocytes/100 WBC (Bld) 9.2 % [facility] Neutrophils (Bld) [#/Vol] 2.8 10*3/uL [facility] Neutrophils/100 WBC (Bld) 49.0 % [facility] Platelet mean volume (Bld) [Entitic vol] 10.8 fL 7 - 12 fL [facility] Platelets (Bld) [#/Vol] 212 10*3/uL [facility] RBC (Bld) [#/Vol] 4.60 10*6/uL [facility] WBC corrected for nucl RBC Auto (Bld) [#/Vol] 5.7 [facility] ECG 12 leadon 09-28-2023 TRACEMASTERVUE [facility] LIVER PANELon 09-28-2023 Albumin [Mass/Vol] 4.4 g/dL Normal 3.2-5.3 [facility] Comment on above: Performed By: #### C DEANGELO DING, LIVR #### [facility] ([id number]) [address] [place] [address] ALP [Catalytic activity/Vol] 65 U/L Normal 39-130 [facility] Comment on above: Performed By: #### C TIMUR BMP, LIVR #### [facility] ([id number]) [address] [place] [address] ALT [Catalytic activity/Vol] 18 U/L Normal 0-31 [facility] Comment on above: Performed By: #### C BCA, BMP, LIVR #### [facility] ([id number]) [address] [address] [place] [address] AST [Catalytic activity/Vol] 16 U/L Normal 0-41 [facility] Comment on above: Performed By: #### C BCA, BMP, LIVR #### [facility] ([id number]) [address] [address] Bilirubin [Mass/Vol] 0.5 mg/dL Normal 0.3-1.2 [facility] Comment on above: Performed By: #### C TIMUR BMP, LIVR #### [facility] ([id number]) [address] [place] [address] Bilirubin.direct [Mass/Vol] 0.2 mg/dL Normal 0.0-0.4 [facility] Comment on above: Performed By: #### Seble DING, BMP, LIVR #### [facility] ([id number]) [address] [facility] [address] [place] [address] Protein [Mass/Vol] 6.6 g/dL Normal 6.0-8.0 [facility] Comment on above: Performed By: #### Seble DING, BMP, LIVR #### [facility] ([id number]) [address] [address] Liver panelon 09-28-2023 Albumin [Mass/Vol] 4.4 g/dL 3.2 - 5.3 g/dL [facility] ALP [Catalytic activity/Vol] 65 U/L 39 - 130 U/L [facility] ALT No additional P-5'-P [Catalytic activity/Vol] 18 U/L 0 - 31 U/L [facility] AST [Catalytic activity/Vol] 16 U/L 0 - 41 U/L [facility] Bilirubin [Mass/Vol] 0.5 mg/dL 0.3 - 1.2 mg/dL [facility] Bilirubin.direct [Mass/Vol] 0.2 mg/dL 0.0 - 0.4 mg/dL [facility] Protein [Mass/Vol] 6.6 g/dL 6.0 - 8.0 g/dL [facility] No Panel Informationon 09-28 [facility] XR Chest PA and Lateralon Umesh Bolaños MD - 09/28/2023 Procedure: Chest x-ray performed Number of views:2 History:Preop asthma Comparison:None Findings: The heart and lungs show no acute findings, and the mediastinum and manasa are grossly negative . Impression: 1. No acute change. 5 Finalized by Umesh Bolaños MD on 09/28/2023 10:05 AM [facility] Rad[facility] Study observation (narrative) [facility] XR Chest PA and LateralOrder ed By: Umesh Bolaños on 09-28-2023 [facility] [place] [facility] Work Phone: Basic Metab w/rfx MGon 08-31 Anion gap [Moles/Vol] 8 mmol/L Low 9-17 [facility] Comment on above: Performed By: #### B MPX, CDP #### [facility] [address] [place] [address] [id number] Windshield Wiper Repairer: Quirino Valladares MD Calcium [Mass/Vol] 8.3 mg/dL Low 8.6-10.4 [facility] Comment on above: Performed By: #### B MPX, CDP #### [facility] [address] [place], [place] [id number] Windshield Wiper Repairer: Quirino Valladares MD Chloride [Moles/Vol] 107 mmol/L Normal 98-107 [facility] Comment on above: Performed By: #### B MPX, CDP #### [facility] [place], [place] [id number] Windshield Wiper Repairer: Quirino Valladares MD CO2 [Moles/Vol] 24 mmol/L Normal 20-31 [facility] Comment on above: Performed By: #### B MPX, CDP #### [facility] [address] [place] [address] Windshield Wiper Repairer: Quirino Valladares MD Creatinine [Mass/Vol] 0.9 mg/dL Normal 0.5-0.9 [facility] Comment on above: Performed By: #### B MPX, CDP #### [address] [address] Windshield Wiper Repairer: Quirino Valladares MD GFR/1.73 sq M.predicted among non-blacks MDRD (S/P/Bld) [Vol rate/Area] mL/min/{1.73_m2} Normal >60 [facility] Comment on above: Result Comment: These [...] Performed By: #### B MPX, CDP #### [address] [address] Windshield Wiper Repairer: Quirino Valladares MD Glucose [Mass/Vol] 88 mg/dL Normal 70-99 [facility] Comment on above: Performed By: #### B MPX, CDP #### [facility] [address] [place] [address] Windshield Wiper Repairer: Quirino Valladares MD Potassium [Moles/Vol] 3.6 mmol/L Low 3.7-5.3 [facility] Comment on above: Performed By: #### B MPX, CDP #### [facility] [address] [place] [address] Windshield Wiper Repairer: Quirino Valladares MD Sodium [Moles/Vol] 139 mmol/L Normal 135-144 [facility] Comment on above: Performed By: #### B MPX, CDP #### [address] [address] Windshield Wiper Repairer: Quirino Valladares MD Urea nitrogen [Mass/Vol] 9 mg/dL Normal 6-20 [facility] Comment on above: Performed By: #### B MPX, CDP #### [place] [address] Windshield Wiper Repairer: Quirino Valladares MD CBC with Diffon 08-31-2023 Abs. Basophil 0.04 k/uL Normal 0.00-0.20 [facility] Comment on above: Performed By: #### B MPX, CDP #### [place] [address] Windshield Wiper Repairer: Quirino Valladares MD Abs.Imm.Granulocyte <0.03 Normal 0.00-0.30 [facility] Comment on above: Performed By: #### B MPX, CDP #### [address] [address] Windshield Wiper Repairer: Quirino Valladares MD Abs.Neutrophil (Seg) 2.46 k/uL Normal 1.80-8.00 [facility] Comment on above: Performed By: #### B MPX, CDP #### [address] [address] Windshield Wiper Repairer: Quirino Valladares MD Basophils/100 WBC (Bld) 1 % Normal 0-2 [facility] Comment on above: Performed By: #### B MPX, CDP #### [address] [address] Windshield Wiper Repairer: Quirino Valladares MD Eosinophils (Bld) [#/Vol] 0.11 10*3/uL Normal 0.00-0.44 [facility] Comment on above: Performed By: #### B MPX, CDP #### [facility] [address] [place] [address] Windshield Wiper Repairer: Quirino Valladares MD Eosinophils/100 WBC (Bld) 2 % Normal 1-4 [facility] Comment on above: Performed By: #### B MPX, CDP #### [facility] [address] [place] [address] Windshield Wiper Repairer: Quirino Valladares MD Erythrocyte distribution width (RBC) [Ratio] 11.9 % Normal 11.8-14.4 [facility] Comment on above: Performed By: #### B MPX, CDP #### [facility] [address] [place] [address] Windshield Wiper Repairer: Quirino Valladares MD Hematocrit (Bld) [Volume fraction] 36.8 % Normal 36.3-47.1 [facility] Comment on above: Performed By: #### B MPX, CDP #### [address] [address] Windshield Wiper Repairer: Quirino Valladares MD Hemoglobin (Bld) [Mass/Vol] 12.6 g/dL Normal 11.9-15.1 [facility] Comment on above: Performed By: #### B MPX, CDP #### [facility] [address] [place] [address] Windshield Wiper Repairer: Quirino Valladares MD Immature granulocytes/100 WBC (Bld) 0 % Normal 0 [facility] Comment on above: Performed By: #### B MPX, CDP #### [facility] [address] [place] [address] Windshield Wiper Repairer: Quirino Valladares MD Lymphocytes (Bld) [#/Vol] 2.61 10*3/uL Normal 1.20-5.20 [facility] Comment on above: Performed By: #### B MPX, CDP #### [address] [address] Windshield Wiper Repairer: Quirino Valladares MD Lymphocytes/100 WBC (Bld) 45 % Normal 25-45 [facility] Comment on above: Performed By: #### B MPX, CDP #### [address] [address] Windshield Wiper Repairer: Quirino Valladares MD MCH (RBC) [Entitic mass] 29.6 pg Normal 25.2-33.5 [facility] Comment on above: Performed By: #### B MPX, CDP #### [address] [address] Windshield Wiper Repairer: Quirino Valladares MD MCHC (RBC) [Mass/Vol] 34.2 g/dL Normal 28.4-34.8 [facility] Comment on above: Performed By: #### B MPX, CDP #### [address] [address] Windshield Wiper Repairer: Quirino Valladares MD MCV (RBC) [Entitic vol] 86.4 fL Normal 82.6-102.9 [facility] Comment on above: Performed By: #### B MPX, CDP #### [address] [address] Windshield Wiper Repairer: Quirino Valladares MD Monocytes (Bld) [#/Vol] 0.52 10*3/uL Normal 0.10-1.40 [facility] Comment on above: Performed By: #### B MPX, CDP #### [address] [address] Windshield Wiper Repairer: Quirino Valladares MD Monocytes/100 WBC (Bld) 9 % High 2-8 [facility] Comment on above: Performed By: #### B MPX, CDP #### [address] [address] Windshield Wiper Repairer: Quirino Valladares MD Neutrophil (Seg) 43 % Normal 34-64 [facility] Comment on above: Performed By: #### B MPX, CDP #### [facility] [address] [place] [address] Windshield Wiper Repairer: Quirino Valladares MD NRBC Automated 0.0 per 100 WBC Normal 0.0 [facility] Comment on above: Performed By: #### B MPX, CDP #### [address] [address] Windshield Wiper Repairer: Quirino Valladares MD Platelet mean volume (Bld) [Entitic vol] 12.3 fL Normal 8.1-13.5 [facility] Comment on above: Performed By: #### B MPX, CDP #### [address] [address] Windshield Wiper Repairer: Quirino Valladares MD Platelets (Bld) [#/Vol] 210 10*3/uL Normal 138-453 [facility] Comment on above: Performed By: #### B MPX, CDP #### [address] [address] Windshield Wiper Repairer: Quirino Valladares MD RBC (Bld) [#/Vol] 4.26 10*6/uL Normal 3.95-5.11 [facility] Comment on above: Performed By: #### B MPX, CDP #### [address] [address] Windshield Wiper Repairer: Quirino Valladares MD WBC (Bld) [#/Vol] 5.8 10*3/uL Normal 4.5-13.5 [facility] Comment on above: Performed By: #### B MPX, CDP #### [address] [address] Windshield Wiper Repairer: Quirino Valladares MD Basic Metab w/rfx MGon 08-30 Potassium [Moles/Vol] 3.5 mmol/L Low 3.7-5.3 [facility] Comment on above: Performed By: #### C DP, BMPX, MG #### [facility] [address] [place] [address] Windshield Wiper Repairer: Quirino Valladares MD Anion gap [Moles/Vol] 8 mmol/L Low 9-17 [facility] Comment on above: Performed By: #### C DP, BMPX, MG #### [facility] [address] [place] [address] Windshield Wiper Repairer: Quirino Valladares MD Calcium [Mass/Vol] 8.8 mg/dL Normal 8.6-10.4 [facility] Comment on above: Performed By: #### C DP, BMPX, MG #### [facility] [address] [place] [address] Windshield Wiper Repairer: Quirino Valladares MD Chloride [Moles/Vol] 105 mmol/L Normal 98-107 [facility] Comment on above: Performed By: #### C DP, BMPX, MG #### [facility] [address] [place] [address] Windshield Wiper Repairer: Quirino Valladares MD CO2 [Moles/Vol] 23 mmol/L Normal 20-31 [facility] Comment on above: Performed By: #### C DP, BMPX, MG #### [facility] [place] [address] Windshield Wiper Repairer: Quirino Valladares MD Creatinine [Mass/Vol] 0.8 mg/dL Normal 0.5-0.9 [facility] Comment on above: Performed By: #### C DP, BMPX, MG #### [facility] [address] [place] [address] Windshield Wiper Repairer: Quirino Valladares MD GFR/1.73 sq M.predicted among non-blacks MDRD (S/P/Bld) [Vol rate/Area] mL/min/{1.73_m2} Normal >60 [facility] Comment on above: Result Comment: These [...] By: #### C DP, BMPX, MG #### [facility] [address] [place] [address] Windshield Wiper Repairer: Quirino Valladares MD Glucose [Mass/Vol] 73 mg/dL Normal 70-99 [facility] Comment on above: Performed By: #### C DP, BMPX, MG #### [facility] [address] [place] [address] Windshield Wiper Repairer: Quirino Valladares MD Sodium [Moles/Vol] 136 mmol/L Normal 135-144 [facility] Comment on above: Performed By: #### C DP, BMPX, MG #### [facility] [address] [place] [address] Windshield Wiper Repairer: Quirino Valladares MD Urea nitrogen [Mass/Vol] 7 mg/dL Normal 6-20 [facility] Comment on above: Performed By: #### C DP, BMPX, MG #### [facility] [address] [place] [address] Windshield Wiper Repairer: Quirino Valladares MD CBC with Diffon 08-30-2023 Abs. Basophil 0.03 k/uL Normal 0.00-0.20 [facility] Comment on above: Performed By: #### C DP, BMPX, MG #### [facility] [address] [place] [address] Windshield Wiper Repairer: Quirino Valladares MD Abs.Imm.Granulocyte <0.03 Normal 0.00-0.30 [facility] Comment on above: Performed By: #### C DP, BMPX, MG #### [facility] [address] [place] [address] Windshield Wiper Repairer: Quirino Valladares MD Abs.Neutrophil (Seg) 2.17 k/uL Normal 1.80-8.00 [facility] Comment on above: Performed By: #### C DP, BMPX, MG #### [address] [address] Windshield Wiper Repairer: Quirino Valladares MD Basophils/100 WBC (Bld) 1 % Normal 0-2 [facility] Comment on above: Performed By: #### C DP, BMPX, MG #### [address] [address] Windshield Wiper Repairer: Quirino Valladares MD Eosinophils (Bld) [#/Vol] 0.08 10*3/uL Normal 0.00-0.44 [facility] Comment on above: Performed By: #### C DP, BMPX, MG #### [facility] [address] [place] [address] Windshield Wiper Repairer: Quirino Valladares MD Eosinophils/100 WBC (Bld) 2 % Normal 1-4 [facility] Comment on above: Performed By: #### C DP, BMPX, MG #### [facility] [address] [place] [address] Windshield Wiper Repairer: Quirino Valladares MD Erythrocyte distribution width (RBC) [Ratio] 11.9 % Normal 11.8-14.4 [facility] Comment on above: Performed By: #### C DP, BMPX, MG #### [facility] [address] [place] [address] Windshield Wiper Repairer: Quirino Valladares MD Hematocrit (Bld) [Volume fraction] 40.0 % Normal 36.3-47.1 [facility] Comment on above: Performed By: #### C DP, BMPX, MG #### [facility] [address] [place] [address] Windshield Wiper Repairer: Quirino Valladares MD Hemoglobin (Bld) [Mass/Vol] 13.6 g/dL Normal 11.9-15.1 [facility] Comment on above: Performed By: #### C DP, BMPX, MG #### [facility] [address] [place] [address] Windshield Wiper Repairer: Quirino Valladares MD Immature granulocytes/100 WBC (Bld) 0 % Normal 0 [facility] Comment on above: Performed By: #### C DP, BMPX, MG #### [address] [address] Windshield Wiper Repairer: Quirino Valladares MD Lymphocytes (Bld) [#/Vol] 1.69 10*3/uL Normal 1.20-5.20 [facility] Comment on above: Performed By: #### C DP, BMPX, MG #### [facility] [address] [place] [address] Windshield Wiper Repairer: Quirino Valladares MD Lymphocytes/100 WBC (Bld) 38 % Normal 25-45 [facility] Comment on above: Performed By: #### C DP, BMPX, MG #### [facility] [address] [place] [address] Windshield Wiper Repairer: Quirino Valladares MD MCH (RBC) [Entitic mass] 29.6 pg Normal 25.2-33.5 [facility] Comment on above: Performed By: #### C DP, BMPX, MG #### [facility] [address] [place] [address] Windshield Wiper Repairer: Quirino Valladares MD MCHC (RBC) [Mass/Vol] 34.0 g/dL Normal 28.4-34.8 [facility] Comment on above: Performed By: #### C DP, BMPX, MG #### [address] [address] Windshield Wiper Repairer: Quirino Valladares MD MCV (RBC) [Entitic vol] 87.0 fL Normal 82.6-102.9 [facility] Comment on above: Performed By: #### C DP, BMPX, MG #### [address] [address] Windshield Wiper Repairer: Quirino Valladares MD Monocytes (Bld) [#/Vol] 0.47 10*3/uL Normal 0.10-1.40 [facility] Comment on above: Performed By: #### C DP, BMPX, MG #### [place] [address] Windshield Wiper Repairer: Quirino Valladares MD Monocytes/100 WBC (Bld) 11 % High 2-8 [facility] Comment on above: Performed By: #### C DP, BMPX, MG #### [address] [address] Windshield Wiper Repairer: Quirino Valladares MD Neutrophil (Seg) 48 % Normal 34-64 [facility] Comment on above: Performed By: #### C DP, BMPX, MG #### [address] [address] Windshield Wiper Repairer: Quirino Valladares MD NRBC Automated 0.0 per 100 WBC Normal 0.0 [facility] Comment on above: Performed By: #### C DP, BMPX, MG #### [facility] [address] [place] [address] Windshield Wiper Repairer: Quirino Valladares MD Platelet mean volume (Bld) [Entitic vol] 11.8 fL Normal 8.1-13.5 [facility] Comment on above: Performed By: #### C DP, BMPX, MG #### [facility] [place] [address] Windshield Wiper Repairer: Quirino Valladares MD Platelets (Bld) [#/Vol] 214 10*3/uL Normal 138-453 [facility] Comment on above: Performed By: #### C DP, BMPX, MG #### [facility] [address] [place] [address] Windshield Wiper Repairer: Quirino Valladares MD RBC (Bld) [#/Vol] 4.60 10*6/uL Normal 3.95-5.11 [facility] Comment on above: Performed By: #### C DP, BMPX, MG #### [facility] [address] [place] [address] Windshield Wiper Repairer: Quirino Valladares MD WBC (Bld) [#/Vol] 4.4 10*3/uL Low 4.5-13.5 [facility] Comment on above: Performed By: #### C DP, BMPX, MG #### [facility] [address] [place] [address] Windshield Wiper Repairer: Quirino Valladares MD Lamotrigineon 08-30-2023 Lamotrigine <1.0 Low 3.0-15.0 [facility] Comment on above: Result Comment: Neither a [...] needed. Performed By: #### L MELBA #### [address] [address] Windshield Wiper Repairer: Quirino Valladares MD Magnesiumon 08-30-2023 Magnesium [Mass/Vol] 2.0 mg/dL Normal 1.6-2.6 [facility] Comment on above: Performed By: #### C DP, BMPX, MG #### [facility] [address] [place] [address] Windshield Wiper Repairer: Quirino Valladares MD RAD - Ultrasound Reporton RAD - Ultrasound Report [id number] 0#[id number] Normal [facility] Physician Referralon 023 Physician Referral [id number]#1.00TIFF Normal [facility] CBC W MANUAL DIFFon 01-05-20 23 ANISOCYTOSIS SLIGHT Normal [facility] Comment on above: Performed By: #### C OSORIO #### [facility] [address] [place] [address] Dr. Juan Jose Banda ATYPICAL LYMPH # 0.36 103/ul Normal [facility] Comment on above: Performed By: #### C OSORIO #### [facility] [address] [place] [address] Dr. Juan Jose Banda ATYPICAL LYMPH % 4 % Normal [facility] Comment on above: Performed By: #### C OSORIO #### [facility] [address] [place] [address] Dr. Juan Jose Banda BAND # 0.0 103/ul Normal 0.0-0.3 [facility] Comment on above: Performed By: #### C OSORIO #### [facility] [address] [place] [address] Dr. Juan Jose Banda BAND % 0 % Normal 0-5 [facility] Comment on above: Performed By: #### C OSORIO #### [facility] [address] [place] [address] Dr. Juan Jose Banda BASOM # 0.09 103/ul Normal 0.00-0.10 [facility] Comment on above: Performed By: #### C OSORIO #### [facility] [address] [address] [address] Juan Jose Banda BASOM % 1.0 % Normal 0.2-2.0 [facility] Comment on above: Performed By: #### C BCMAN #### [facility] [address] [place] [address] Dr. Juan Jose Banda BLAST # Normal [facility] Comment on above: Performed By: #### C BCJESSICA #### [facility] [address] [place] [address] Dr. Juan Jose Banda BLAST % Normal [facility] Comment on above: Performed By: #### C BCJESSICA #### [facility] [address] [place] [address] Dr. Juan Jose Banda CORRECTED WBC Normal 4.0-11.0 [facility] Comment on above: Performed By: #### C OSORIO #### [facility] [address] [place] [address] Dr. Juan Jose Banda EOS # 0.18 103/ul Normal 0.00-0.70 [facility] Comment on above: Performed By: #### C OSORIO #### [facility] [address] [place] [address] Dr. Juan Jose Banda EOS% 2.0 % Normal 0.9-7.0 [facility] Comment on above: Performed By: #### C OSORIO #### [facility] [address] [place] [address] Dr. Juan Jose Banda HCT 34.0 % Critically low 36.0-48.0 [facility] Comment on above: Performed By: #### C BCJESSICA #### [facility] [address] [place] [address] Dr. Juan Jose Banda HGB 11.8 g/dl Critically low 12.0-16.0 [facility] Comment on above: Performed By: #### C BCJESSICA #### [facility] [address] [place] [address] Dr. Juan Jose Banda LYMPHM # 1.55 103/ul Normal 1.20-3.80 [facility] Comment on above: Performed By: #### C BCJESSICA #### [facility] [address] [address] [address] Juan Jose Banda LYMPHM% 17.0 % Critically low 20.5-60.0 [facility] Comment on above: Performed By: #### C OSORIO #### [facility] [address] [address] [address] Juan Jose Banda MCH 29.0 pg Normal 26.7-34.0 [facility] Comment on above: Performed By: #### C OSORIO #### [facility] [address] [place] [address] Dr. Juan Jose Banda MCHC 34.7 g/dl Normal 29.9-35.2 [facility] Comment on above: Performed By: #### C OSORIO #### [facility] [address] [place] [address] Dr. Juan Jose Banda MCV 83.5 fL Normal 81.0-99.0 [facility] Comment on above: Performed By: #### C OSORIO #### [facility] [address] [place] [address] Dr. Juan Jose Banda METAMYELOCYTE # Normal [facility] Comment on above: Performed By: #### C OSORIO #### [facility] [address] [place] [address] Dr. Juan Jose Banda METAMYELOCYTE % Normal [facility] Comment on above: Performed By: #### C OSORIO #### [facility] [address] [place] [address] Dr. Juan Jose Banda MICROCYTOSIS SLIGHT Normal [facility] Comment on above: Performed By: #### C OSORIO #### [facility] [address] [place] [address] Dr. Juan Jose Banda MONOM# 1.00 103/ul Critically high 0.30-0.80 [facility] Comment on above: Performed By: #### C OSORIO #### [facility] [address] [place] [address] Dr. Juan Jose Banda MONOM% 11.0 % Normal 1.7-12.0 [facility] Comment on above: Performed By: #### C OSORIO #### [facility] [address] [address] [address] Juan Jose Banda MPV 11.2 fL Normal 9.5-13.5 [facility] Comment on above: Performed By: #### C OSORIO #### [facility] [address] [address] [address] Juan Jose Banda MYELOCYTE # Normal [facility] Comment on above: Performed By: #### C OSORIO #### [facility] [address] [address] [address] Juan Jose Banda MYELOCYTE % Normal [facility] Comment on above: Performed By: #### C OSORIO #### [facility] [address] [place] [address] Dr. Juan Jose Banda NRBC Normal [facility] Comment on above: Performed By: #### C OSORIO #### [facility] [address] [place] [address] Dr. Juan Jose Banda PLT 180 103/ul Normal 150-450 [facility] Comment on above: Performed By: #### C OSORIO #### [facility] [address] [address] [address] Juan Jose Banda RBC 4.07 106/ul Critically low 4.20-5.40 [facility] Comment on above: Performed By: #### C OSORIO #### [facility] [address] [place] [address] Dr. Juan Jose Banda RDW 11.9 % Normal 11.0-15.0 [facility] Comment on above: Performed By: #### C OSORIO #### [facility] [address] [address] [address] Juan Jose Banda SEG # 5.92 103/ul Normal 1.40-6.50 [facility] Comment on above: Performed By: #### C OSORIO #### [facility] [address] [address] [address] Juan Jose Banda SEG % 65.0 % Normal 43.0-75.0 [facility] Comment on above: Performed By: #### C OSORIO #### [facility] [address] [place] [address] Dr. Juan Jose Banda WBC 9.1 103/ul Normal 4.0-11.0 [facility] Comment on above: Performed By: #### C BCMAN #### [facility] [address] [place] [address] Dr. Juan Jose Banda DRUG SCREEN RAPID (URINE)on 01-04-2023 AMP Negative Normal NEGATIVE [facility] Comment on above: Performed By: #### U RCX #### [facility] [address] [place] [address] Dr. Juan Jose Banda BAR Negative Normal NEGATIVE [facility] Comment on above: Performed By: #### U RCX #### [facility] [address] [place] [address] Dr. Juan Jose Banda BUP Negative Normal NEGATIVE [facility] Comment on above: Performed By: #### U RCX #### [facility] [address] [place] [address] Dr. Juan Jose Banda BZO Negative Normal NEGATIVE [facility] Comment on above: Performed By: #### U RCX #### [facility] [address] [place] [address] Dr. Juan Jose Banda LUCIO Negative Normal NEGATIVE [facility] Comment on above: Performed By: #### U RCX #### [facility] [address] [place] [address] Dr. Juan Jose Banda CUT-OFFS SEE BELOW Normal [facility] Comment on above: Result Comment: AMP [...] ng/mL Performed By: #### U RCX #### [facility] [address] [address] [address] Juan Jose Banda DRUG CUT HEADER DRUG CLASS TEST SYSTEM CUT-OFF CONCENTRATIONS ARE FOLLOWS: Normal [facility] Comment on above: Performed By: #### U RCX #### [facility] [address] [address] [address] Juan Jose Banda mAMP Negative Normal NEGATIVE [facility] Comment on above: Performed By: #### U RCX #### [facility] [address] [address] [address] Juan Jose Banda MTD Negative Normal NEGATIVE [facility] Comment on above: Performed By: #### U RCX #### [facility] [address] [address] [address] Juan Jose Banda OPI Negative Normal NEGATIVE [facility] Comment on above: Performed By: #### U RCX #### [facility] [address] [place] [address] Dr. Juan Jose Banda OXY Negative Normal NEGATIVE [facility] Comment on above: Performed By: #### U RCX #### [facility] [address] [address] [address] Juan Jose Banda PCP Negative Normal NEGATIVE [facility] Comment on above: Performed By: #### U RCX #### [facility] [address] [place] [address] Dr. Juan Jose Banda PPX Negative Normal NEGATIVE [facility] Comment on above: Performed By: #### U RCX #### [facility] [address] [place] [address] Dr. Juan Jose Banda TCA Negative Normal NEGATIVE [facility] Comment on above: Performed By: #### U RCX #### [facility] [address] [place] [address] Dr. Juan Jose Banda THC Negative Normal NEGATIVE [facility] Comment on above: Performed By: #### U RCX #### [facility] [address] [place] [address] Dr. Juan Jose Banda TYPE AND SCREENon 01-04-2023 TYPE AND SCREEN Negative Normal [facility] Comment on above: Performed By: #### C [facility] #### [facility] [address] [place] [address] Dr. Juan Jose Banda US PREG BIOPHY [...] MESA Date: 2022-12-31 17:02 Normal [facility] US PREG UMBILICAL ARTERYon 0 12-31-2022 [...] YO MESA Date: 2022-12-31 17:18 Normal [facility] GROUP B STREP CULTUREon 12-07 S. agalactiae Ag Ql (Unsp spec) Culture Observations: NEGATIVE FOR GROUP B STREPTOCOCCUS. Normal [facility] Comment on above: Performed By: #### G BSCX #### [facility] [address] [place] [address] Dr. Juan Jose Banda US PREG BIOPHY [...] LUISA ARCHIBALD Date: 2022-12-24 11:23 Normal [facility] US PREG UMBILICAL ARTERYon 0 12-24-2022 [...] LUISA ARCHIBALD Date: 2022-12-24 11:58 Normal [facility] UA (CLEAN/CATCH) PLANT PATHOLOGIST/MICRO I F IND.on 12-22-2022 Bilirubin Ql (U) Negative Normal NEGATIVE [facility] Comment on above: Performed By: #### C OSORIO #### [facility] [address] [place] [address] Dr. Juan Jose Banda Clarity (U) CLEAR Normal CLEAR [facility] Comment on above: Performed By: #### C BCJESSICA #### [facility] [address] [place] [address] Dr. Juan Jose Banda Color (U) LT. YELLOW Normal YELLOW [facility] Comment on above: Performed By: #### C OSORIO #### [facility] [address] [place] [address] Dr. Juan Jose Banda Glucose Ql (U) Negative Normal NEGATIVE [facility] Comment on above: Performed By: #### C OSORIO #### [facility] [address] [place] [address] Dr. Juan Jose Banda Hemoglobin Ql (U) Negative Normal NEGATIVE [facility] Comment on above: Performed By: #### C OSORIO #### [facility] [address] [address] [address] Juan Jose Banda Ketones Ql (U) Negative Normal NEGATIVE [facility] Comment on above: Performed By: #### C OSORIO #### [facility] [address] [place] [address] Dr. Juan Jose Banda LEUKOCYTES SMALL Abnormal NEGATIVE [facility] Comment on above: Performed By: #### C OSORIO #### [facility] [address] [place] [address] Dr. Juan Jose Banda Nitrite Ql (U) Negative Normal NEGATIVE [facility] Comment on above: Performed By: #### C OSORIO #### [facility] [address] [place] [address] Dr. Juan Jose Banda pH (U) 6.0 [pH] Normal 5-9 [facility] Comment on above: Performed By: #### C OSORIO #### [facility] [address] [place] [address] Dr. Juan Jose Banda SPEC GRAVITY <=1.005 Abnormal 1.005-<=1.025 [facility] Comment on above: Performed By: #### C OSORIO #### [facility] [address] [place] [address] Dr. Juan Jose Banda UA PROTEIN Negative Normal NEGATIVE/ TRACE [facility] Comment on above: Performed By: #### C OSORIO #### [facility] [address] [place] [address] Dr. Juan Jose Banda UR MICRO IND INDICATED Normal [facility] Comment on above: Performed By: #### C OSORIO #### [facility] [address] [place] [address] Dr. Juan Jose Banda Urobilinogen Qn (U) 0.2 {Tyler'U}/dL Normal 0.2 - 1. 0 [facility] Comment on above: Performed By: #### C OSORIO #### [facility] [address] [place] [address] Dr. Juan Jose Banda URINE MICROSCOPIC ONLYon BACTERIA NONE SEEN Normal NONE SEEN [facility] Comment on above: Performed By: #### C BCMAN #### [facility] [address] [place] [address] Dr. Juan Jose Banda Bacteria identified Cx Nom (U) NOT INDICATED Normal [facility] Comment on above: Performed By: #### C BCMAN #### [facility] [address] [place] [address] Dr. Juan Jose Banda CAST NONE SEEN Normal NONE SEEN [facility] Comment on above: Performed By: #### C BCMAN #### [facility] [address] [place] [address] Dr. Juan Jose Banda Crystals LM Nom (Urine sed) NONE SEEN Normal NONE SEEN [facility] Comment on above: Performed By: #### C BCMAN #### [facility] [address] [place] [address] Dr. Juan Jose Banda Epithelial cells LM Ql (Urine sed) MANY Abnormal NONE SEEN /RARE [facility] Comment on above: Performed By: #### C BCMAN #### [facility] [address] [place] [address] Dr. Juan Jose Banda MUCOUS NONE SEEN Normal NONE SEEN [facility] Comment on above: Performed By: #### C BCMAN #### [facility] [address] [place] [address] Dr. Juan Jose Banda RBC NONE SEEN Abnormal 0-2 [facility] Comment on above: Performed By: #### C BCMAN #### [facility] [address] [place] [address] Dr. Juan Jose Banda WBC 2-5 Abnormal NONE SEEN [facility] Comment on above: Performed By: #### C BCMAN #### [facility] [address] [place] [address] Dr. Juan Jose Banda US PREG BIOPHY [...] by: DALLIN HERNANDEZ Date: 2022-12-22 20:55 Normal [facility] PREG PLACENTAon US PREG PLACENTA EXAM: US [...] by: DALLIN HERNANDEZ Date: 2022-12-22 20:52 Normal [facility] PREG GROWTHon 12-20-2022 US PREG GROWTH EXAMINATION: [...] LUISA ARCHIBALD Date: 2022-12-20 15:23 Normal [facility] CULTURE URINEon 12-17-2022 CULTURE URINE Culture Observations: LIGHT GROWTH OF MIXED GENITAL CHEVY. NO POTENTIAL PATHOGENS SEEN. Normal [facility] Comment on above: Performed By: #### U RCX #### [facility] [address] [place] [address] Dr. Juan Jose Banda UA (CLEAN/CATCH) PLANT PATHOLOGIST/MICRO I F IND.on 12-17-2022 Bilirubin Ql (U) Negative Normal NEGATIVE [facility] Comment on above: Performed By: #### H IV12 #### [facility] [address] [place] [address] Dr. Juan Jose Banda Clarity (U) CLEAR Normal CLEAR [facility] Comment on above: Performed By: #### H IV12 #### [facility] [address] [place] [address] Dr. Juan Jose Banda Color (U) LT. YELLOW Normal YELLOW [facility] Comment on above: Performed By: #### H IV12 #### [facility] [address] [place] [address] Dr. Juan Jose Banda Glucose Ql (U) Negative Normal NEGATIVE [facility] Comment on above: Performed By: #### H IV12 #### [facility] [address] [place] [address] Dr. Juan Jose Banda Hemoglobin Ql (U) Negative Normal NEGATIVE [facility] Comment on above: Performed By: #### H IV12 #### [facility] [address] [place] [address] Dr. Juan Jose Banda Ketones Ql (U) Negative Normal NEGATIVE [facility] Comment on above: Performed By: #### H IV12 #### [facility] [address] [place] [address] Dr. Juan Jose Banda LEUKOCYTES MODERATE Abnormal NEGATIVE [facility] Comment on above: Performed By: #### H IV12 #### [facility] [address] [place] [address] Dr. Juan Jose Banda Nitrite Ql (U) Negative Normal NEGATIVE [facility] Comment on above: Performed By: #### H IV12 #### [facility] [address] [place] [address] Dr. Juan Jose Banda pH (U) 6.5 [pH] Normal 5-9 [facility] Comment on above: Performed By: #### H IV12 #### [facility] [address] [place] [address] Dr. Juan Jose Banda SPEC GRAVITY <=1.005 Abnormal 1.005-<=1.025 [facility] Comment on above: Performed By: #### H IV12 #### [facility] [address] [place] [address] Dr. Juan Jose Banda UA PROTEIN Negative Normal NEGATIVE/ TRACE [facility] Comment on above: Performed By: #### H IV12 #### [facility] [address] [place] [address] Dr. Juan Jose Banda UR MICRO IND INDICATED Normal [facility] Comment on above: Performed By: #### H IV12 #### [facility] [address] [place] [address] Dr. Juan Jose Banda Urobilinogen Qn (U) 0.2 {Tyler'U}/dL Normal 0.2 - 1. 0 [facility] Comment on above: Performed By: #### H IV12 #### [facility] [address] [place] [address] Dr. Juan Jose Banda URINE MICROSCOPIC ONLYon BACTERIA TRACE Abnormal NONE SEEN [facility] Comment on above: Performed By: #### R PRQ #### [facility] [address] [place] [address] Dr. Juan Jose Banda Bacteria identified Cx Nom (U) INDICATED Normal [facility] Comment on above: Performed By: #### R PRQ #### [facility] [address] [place] [address] Dr. Juan Jose Banda CAST NONE SEEN Normal NONE SEEN [facility] Comment on above: Performed By: #### R PRQ #### [facility] [address] [address] [address] Juan Jose Banda Crystals LM Nom (Urine sed) NONE SEEN Normal NONE SEEN [facility] Comment on above: Performed By: #### R PRQ #### [facility] [address] [address] [address] Juan Jose Banda Epithelial cells LM Ql (Urine sed) MODERATE Abnormal NONE SEEN /RARE [facility] Comment on above: Performed By: #### R PRQ #### [facility] [address] [address] [address] Juan Jose Banda MUCOUS NONE SEEN Normal NONE SEEN [facility] Comment on above: Performed By: #### R PRQ #### [facility] [address] [place] [address] Dr. Juan Jose Banda RBC 2-5 Abnormal 0-2 [facility] Comment on above: Performed By: #### R PRQ #### [facility] [address] [place] [address] Dr. Juan Jose Banda WBC 5-10 Abnormal NONE SEEN [facility] Comment on above: Performed By: #### R PRQ #### [facility] [address] [place] [address] Dr. Juan Jose Banda YEAST PRESENT Abnormal NONE SEEN [facility] Comment on above: Result Comment: rare Performed By: #### R PRQ #### [facility] [address] [place] [address] Dr. Juan Jose Banda CARDIAC GUSTAVO ADMITon 023 CK [Catalytic activity/Vol] 33 U/L Normal 26-192 [facility] Comment on above: Performed By: #### S EDR #### [facility] [address] [place] [address] Dr. Juan Jose Banda CK.MB [Mass/Vol] ng/mL Normal <=3.60 [facility] Comment on above: Performed By: #### S EDR #### [facility] [address] [place] [address] Dr. Juan Jose Banda HSTROP <4.0 Normal 4.0-51.3 [facility] Comment on above: Result Comment: CUT- OFF POINTS HAVE BEEN ESTABLISHED BASED ON THE FOURTH UNIVERSAL DEFINITIONS OF MYOCARDIAL INFARCTION. THE UPPER REFERENCE LIMIT (URL) OF TROPONIN, DEFINED THE 99TH PERCENTILE OF cTnI DISTRIBUTION IN A REFERENCE POPULATION, HAS BEEN CONFIRMED THE DECISION THRESHOLD FOR PR DIAGNOSIS. Performed By: #### S EDR #### [facility] [address] [place] [address] Dr. Juan Jose Banda OTTO 17 ng/mL Normal 9-82 [facility] Comment on above: Performed By: #### S EDR #### [facility] [address] [address] [address] Juan Jose Banda CBC AUTO DIFFon 11-04-2022 BASO # 0.0 103/ul Normal 0.0-0.1 [facility] Comment on above: Performed By: #### U RCX #### [facility] [address] [place] [address] Dr. Juan Jose Banda Basophils/100 WBC (Bld) 0.2 % Normal 0.2-2.0 [facility] Comment on above: Performed By: #### U RCX #### [facility] [address] [place] [address] Dr. Juan Jose Banda EO # 0.0 103/ul Normal 0.0-0.7 [facility] Comment on above: Performed By: #### U RCX #### [facility] [address] [place] [address] Dr. Juan Jose Banda Eosinophils/100 WBC (Bld) 0.4 % Critically low 0.9-7.0 [facility] Comment on above: Performed By: #### U RCX #### [facility] [address] [place] [address] Dr. Juan Jose Banda Erythrocyte distribution width (RBC) [Ratio] 12.4 % Normal 11.0-15.0 [facility] Comment on above: Performed By: #### U RCX #### [facility] [address] [place] [address] Dr. Juan Jose Banda Hematocrit (Bld) [Volume fraction] 33.7 % Critically low 36.0-48.0 [facility] Comment on above: Performed By: #### U RCX #### [facility] [address] [address] [address] Juan Jose Banda Hemoglobin (Bld) [Mass/Vol] 12.1 g/dL Normal 12.0-16.0 [facility] Comment on above: Performed By: #### U RCX #### [facility] [address] [address] [address] Juan Jose Banda IG # 0.09 10e3/ul Critically high 0.00-0.03 [facility] Comment on above: Performed By: #### U RCX #### [facility] [address] [address] [address] Juan Jose Banda IG % 1.1 % Critically high 0.0-0.5 [facility] Comment on above: Performed By: #### U RCX #### [facility] [address] [address] [address] Juan Jose Banda LYMPH # 1.5 103/ul Normal 1.2-3.8 [facility] Comment on above: Performed By: #### U RCX #### [facility] [address] [address] [address] Juan Jose Banda Lymphocytes/100 WBC (Bld) 17.1 % Critically low 20.5-60.0 [facility] Comment on above: Performed By: #### U RCX #### [facility] [address] [address] [address] Juan Jose Banda MANUAL DIFF REQ NO Normal [facility] Comment on above: Performed By: #### U RCX #### [facility] [address] [address] [address] Juan Jose Banda MCH (RBC) [Entitic mass] 30.5 pg Normal 26.7-34.0 [facility] Comment on above: Performed By: #### U RCX #### [facility] [address] [address] [address] Juan Jose Banda MCHC (RBC) [Mass/Vol] 35.9 g/dL Critically high 29.9-35.2 [facility] Comment on above: Performed By: #### U RCX #### [facility] [address] [address] [address] Juan Jose Banda MCV (RBC) [Entitic vol] 84.9 fL Normal 81.0-99.0 [facility] Comment on above: Performed By: #### U RCX #### [facility] [address] [address] [address] Juan Jose Banda MONO # 0.8 103/ul Normal 0.3-0.8 [facility] Comment on above: Performed By: #### U RCX #### [facility] [address] [address] [address] Juan Jose Banda Monocytes/100 WBC (Bld) 9.8 % Normal 1.7-12.0 [facility] Comment on above: Performed By: #### U RCX #### [facility] [address] [place] [address] Dr. Juan Jose Banda NEUT # 6.1 103/ul Normal 1.4-6.5 [facility] Comment on above: Performed By: #### U RCX #### [facility] [address] [place] [address] Dr. Juan Jose Banda Neutrophils/100 WBC (Bld) 71.4 % Normal 43.0-75.0 [facility] Comment on above: Performed By: #### U RCX #### [facility] [address] [address] [address] Juan Jose Banda Platelet mean volume (Bld) [Entitic vol] 11.2 fL Normal 9.5-13.5 [facility] Comment on above: Performed By: #### U RCX #### [facility] [address] [address] [address] Juan Jose Banda PLT 196 103/ul Normal 150-450 [facility] Comment on above: Performed By: #### U RCX #### [facility] [address] [address] [address] Juan Jose Banda RBC 3.97 106/ul Critically low 4.20-5.40 [facility] Comment on above: Performed By: #### U RCX #### [facility] [address] [address] [address] Jaun Jose Banda WBC 8.5 103/ul Normal 4.0-11.0 [facility] Comment on above: Performed By: #### U RCX #### [facility] [address] [address] [address] Juan Jose Banda LIVER PROFILEon 11-04-2022 Albumin [Mass/Vol] 3.0 g/dL Critically low 3.4-5.0 [facility] e [facility] Comment on above: Performed By: #### S EDR #### [facility] [address] [address] [address] Juan Jose Banda Albumin/Globulin [Mass ratio] 0.9 {ratio} Normal [facility] Comment on above: Performed By: #### S EDR #### [facility] [address] [address] [address] Juan Jose Banda ALP [Catalytic activity/Vol] 76 U/L Normal 46-116 [facility] Comment on above: Performed By: #### S EDR #### [facility] [address] [address] [address] Juan Jose Banda ALT [Catalytic activity/Vol] 13 U/L Critically low 14-59 [facility] Comment on above: Performed By: #### S EDR #### [facility] [address] [address] [address] Juan Jose Banda AST [Catalytic activity/Vol] 14 U/L Critically low 15-37 [facility] Comment on above: Performed By: #### S EDR #### [facility] [address] [address] [address] Juan Jose Banda BILI, CONJUGATED 0.1 mg/dL Normal 0.0-0.2 [facility] Comment on above: Performed By: #### S EDR #### [facility] [address] [address] [address] Juan Jose Banda Bilirubin [Mass/Vol] 0.3 mg/dL Normal 0.2-1.0 [facility] Comment on above: Performed By: #### S EDR #### [facility] [address] [place], [place] [address] Dr. Juan Jose Banda Globulin (S) [Mass/Vol] 3.4 g/dL Normal [facility] Comment on above: Performed By: #### S EDR #### [facility] [address] [place], [place] [address] Dr. Juan Jose Banda Protein [Mass/Vol] 6.4 g/dL Normal 6.4-8.2 [facility] Comment on above: Performed By: #### S EDR #### [facility] [address] [place], [place] [address] Dr. Juan Jose Banda BOX TEST SENT OUTon 10-01-19 23 SENT TO REF LAB 10/01/2022 Normal [facility] Comment on above: Performed By: #### S EDR #### [facility] [address] [place] [address] [address] Juan Jose Banda US PREG ANATOMY [...] LUISA ALVARACHELKESHAWN Date: 2022-09-29 16:29 Normal [facility] HEP B SURFACE ANTIGEN SCREEN on 08-26-2022 HBsAg Screen Negative Normal Negative [facility] Comment on above: Performed By: #### S EDR #### [facility] [address] [address] [address] Juan Jose Banda HEPATITIS C VIRUS AB W/ REFL EX QUANTon 08-26-2022 HCV AB <0.1 Normal 0.0-0.9 [facility] Comment on above: Performed By: #### R PRQ #### [facility] [address] [address] [address] Juan Jose Banda Interpretation: Comment Normal [facility] Comment on above: Result Comment: Nega tive Not infected with HCV, unless recent infection is suspected or other evidence exists to indicate HCV infection. Performed By: #### R PRQ #### [facility] [address] [address] [address] Juan Jose Banda HIV 1 AND 2 WITH REFLEXon HIV Screen 4th Generation wRfx Non-Reactive Normal Non Reactive [facility] Comment on above: Result Comment: HIV Negative HIV-1/HIV-2 antibodies and HIV-1 p24 antigen were NOT detected. There is no laboratory evidence of HIV infection. Performed By: #### H IV12 #### [facility] [address] [place] [address] Dr. Juan Jose Banda RPR QUANTon 08-26-2022 Rapid Plasma Reagin, Quant Non-Reactive Normal NonRea<1:1 [facility] Comment on above: Result Comment: Plea se Note: This test does not meet current guidelines for screening and diagnosis of syphilis. This test is intended for following treatment response in patients being treated for syphilis infection. To screen for syphilis infection, a reflex cascade that includes both RPR and a treponema-specific assay should be utilized, such as Treponema pallidum (Syphilis) Screening [place] (394770) or Rapid Plasma Reagin (RPR) Test With Reflex to Quantitative RPR and Confirmatory Treponema pallidum Antibodies (777464). Performed By: #### R PRQ #### [facility] [address] [place] [address] Dr. Juan Jose Banda RUBELLA AB IGGon 08-26-2022 Rubella Antibodies, IgG 2.56 index Normal Immune >0.99 [facility] Comment on above: Result Comment: Non- immune <0.90 Equivocal 0.90 - 0.99 Immune >0.99 Performed By: #### S EDR #### [facility] [address] [place] [address] Dr. Juan Jose Banda CULTURE URINEon 08-25-2022 CULTURE URINE Culture Observations: LIGHT GROWTH OF MIXED GENITAL CHEVY. NO POTENTIAL PATHOGENS SEEN. Normal [facility] Comment on above: Performed By: #### U RCX #### [facility] [address] [place] [address] Dr. Juan Jose Banda CBC AUTO DIFFon 08-24-2022 BASO # 0.0 103/ul Normal 0.0-0.1 [facility] Comment on above: Performed By: #### S EDR #### [facility] [address] [place] [address] Dr. Juan Jose Banda Basophils/100 WBC (Bld) 0.4 % Normal 0.2-2.0 [facility] Comment on above: Performed By: #### S EDR #### [facility] [address] [place] [address] Dr. Juan Jose Banda EO # 0.1 103/ul Normal 0.0-0.7 [facility] Comment on above: Performed By: #### S EDR #### [facility] [address] [place] [address] Dr. Juan Jose Banda Eosinophils/100 WBC (Bld) 1.4 % Normal 0.9-7.0 [facility] Comment on above: Performed By: #### S EDR #### [facility] [address] [place] [address] Dr. Juan Jose Banda Erythrocyte distribution width (RBC) [Ratio] 12.2 % Normal 11.0-15.0 [facility] Comment on above: Performed By: #### S EDR #### [facility] [address] [place] [address] Dr. Juan Jose Banda Hematocrit (Bld) [Volume fraction] 35.3 % Critically low 36.0-48.0 [facility] Comment on above: Performed By: #### S EDR #### [facility] [address] [place] [address] Dr. Juan Jose Banda Hemoglobin (Bld) [Mass/Vol] 12.7 g/dL Normal 12.0-16.0 [facility] Comment on above: Performed By: #### S EDR #### [facility] [address] [place] [address] Dr. Juan Jose Banda IG # 0.03 10e3/ul Normal 0.00-0.03 [facility] Comment on above: Performed By: #### S EDR #### [facility] [address] [place] [address] Dr. Juan Jose Banda IG % 0.4 % Normal 0.0-0.5 [facility] Comment on above: Performed By: #### S EDR #### [facility] [address] [place] [address] Dr. Juan Jose Banda LYMPH # 1.4 103/ul Normal 1.2-3.8 [facility] Comment on above: Performed By: #### S EDR #### [facility] [address] [place] [address] Dr. Juan Jose Banda Lymphocytes/100 WBC (Bld) 19.7 % Critically low 20.5-60.0 [facility] Comment on above: Performed By: #### S EDR #### [facility] [address] [place] [address] Dr. Juan Jose Banda MANUAL DIFF REQ NO Normal [facility] Comment on above: Performed By: #### S EDR #### [facility] [address] [place] [address] Dr. Juan Jose Banda MCH (RBC) [Entitic mass] 29.8 pg Normal 26.7-34.0 [facility] Comment on above: Performed By: #### S EDR #### [facility] [address] [place] [address] Dr. Juan Jose Banda MCHC (RBC) [Mass/Vol] 36.0 g/dL Critically high 29.9-35.2 [facility] Comment on above: Performed By: #### S EDR #### [facility] [address] [place] [address] Dr. Juan Jose Banda MCV (RBC) [Entitic vol] 82.9 fL Normal 81.0-99.0 [facility] Comment on above: Performed By: #### S EDR #### [facility] [address] [place] [address] Dr. Juan Jose Banda MONO # 0.6 103/ul Normal 0.3-0.8 [facility] Comment on above: Performed By: #### S EDR #### [facility] [address] [place] [address] Dr. Juan Jose Banda Monocytes/100 WBC (Bld) 8.3 % Normal 1.7-12.0 [facility] Comment on above: Performed By: #### S EDR #### [facility] [address] [place] [address] Dr. Juan Jose Banda NEUT # 5.0 103/ul Normal 1.4-6.5 [facility] Comment on above: Performed By: #### S EDR #### [facility] [address] [place] [address] Dr. Juan Jose Banda Neutrophils/100 WBC (Bld) 69.8 % Normal 43.0-75.0 [facility] Comment on above: Performed By: #### S EDR #### [facility] [address] [place] [address] Dr. Juan Jose Banda Platelet mean volume (Bld) [Entitic vol] 11.8 fL Normal 9.5-13.5 [facility] Comment on above: Performed By: #### S EDR #### [facility] [address] [address] [address] Juan Jose Banda PLT 183 103/ul Normal 150-450 [facility] Comment on above: Performed By: #### S EDR #### [facility] [address] [address] [address] Juan Jose Banda RBC 4.26 106/ul Normal 4.20-5.40 [facility] Comment on above: Performed By: #### S EDR #### [facility] [address] [place] [address] [address] Juan Jose Banda WBC 7.1 103/ul Normal 4.0-11.0 [facility] Comment on above: Performed By: #### S EDR #### [facility] [address] [place] [address] Dr. Juan Jose Banda CULTURE URINEon 08-24-2022 CULTURE URINE Culture Observations: MODERATE GROWTH OF MIXED GENITAL CHEVY. NO POTENTIAL PATHOGENS SEEN. Normal [facility] Comment on above: Performed By: #### C BCMAN #### [facility] [address] [address] [address] Juan Jose Banda GLYCOHEMOGLOBIN A1Con 2022 ADA RECOMMENDATION SEE BELOW Normal [facility] Comment on above: Result Comment: ADA RECOMMENDED LIMIT 4.0 - 6.0 ADA THERAPEUTIC TARGET < 7.0 ACTION SUGGESTED > 7.0 Performed By: #### H IV12 #### [facility] [address] [place] [address] Dr. Juan Jose Banda Glucose [Mass/Vol] 85 mg/dL Normal [facility] Comment on above: Performed By: #### H IV12 #### [facility] [address] [address] [address] Juan Jose Banda HbA1c (Bld) [Mass fraction] 4.6 % Normal 4.5-6.2 [facility] Comment on above: Performed By: #### H IV12 #### [facility] [address] [place] [address] Dr. Juan Jose Banda TYPE AND SCREENon 08-24-2022 TYPE AND SCREEN Negative Normal [facility] Comment on above: Performed By: #### T NS #### [facility] [address] [address] [address] Juan Jose Banda Covid-19 PCR ([facility])on 06-08 SARS-CoV-2 (COVID-19) RNA ISAAC+probe Ql (Unsp spec) Not detected Normal NOT DETECTED [facility] Comment on above: Result Comment: When [...] for this test is supported by the [place] of Health and Human Service's declaration that [...] used). Performed By: #### R PRQ #### [facility] [address] [place] [address] Dr. Juan Jose Banda INFLUENZA A AND B AGon 06-25 [facility] SEE BELOW Normal [facility] Comment on above: Result Comment: Nega tive for Flu A protein angiten. Infection due to Flu A cannot be ruled out. Flu A angiten in the sample may be below the detection limit of the test. Performed By: #### S EDR #### [facility] [address] [address] [address] [facility] Normal [facility] Comment on above: Result Comment: Nega tive for Flu B protein antigen. Infection due to Flu B cannot be ruled out. Flu B antigen in the sample may be below the detection limit of the test. Performed By: #### S EDR #### [facility] [address] [place] [address] Dr. Juan Jose Banda INFLUENZA A AG Negative Normal NEGATIVE SEE COMMENT [facility] Comment on above: Performed By: #### S EDR #### [facility] [address] [place] [address] Dr. Juan Jose Banda INFLUENZA B AG Negative Normal NEGATIVE SEE COMMENT [facility] Comment on above: Performed By: #### S EDR #### [facility] [address] [place] [address] Dr. Juan Jose Banda INTERNAL CONTROLS Within Normal Limits Normal Within Normal Limits [facility] Comment on above: Performed By: #### S EDR #### [facility] [address] [place] [address] Dr. Juan Jose Banda CBC AUTO DIFFon 06-20-2022 BASO # 0.0 103/ul Normal 0.0-0.1 [facility] Comment on above: Performed By: #### S EDR #### [facility] [address] [place] [address] Dr. Juan Jose Banda Basophils/100 WBC (Bld) 0.3 % Normal 0.2-2.0 [facility] Comment on above: Performed By: #### S EDR #### [facility] [address] [place] [address] Dr. Juan Jose Banda EO # 0.1 103/ul Normal 0.0-0.7 [facility] Comment on above: Performed By: #### S EDR #### [facility] [address] [place] [address] Dr. Juan Jose Banda Eosinophils/100 WBC (Bld) 1.3 % Normal 0.9-7.0 [facility] Comment on above: Performed By: #### S EDR #### [facility] [address] [place] [address] Dr. Juan Jose Banda Erythrocyte distribution width (RBC) [Ratio] 11.4 % Normal 11.0-15.0 [facility] Comment on above: Performed By: #### S EDR #### [facility] [address] [place] [address] Dr. Juan Jose Banda Hematocrit (Bld) [Volume fraction] 35.6 % Critically low 36.0-48.0 [facility] Comment on above: Performed By: #### S EDR #### [facility] [address] [place] [address] Dr. Juan Jose Banda Hemoglobin (Bld) [Mass/Vol] 12.9 g/dL Normal 12.0-16.0 [facility] Comment on above: Performed By: #### S EDR #### [facility] [address] [address] [address] Juan Jose Banda IG # 0.04 10e3/ul Critically high 0.00-0.03 [facility] Comment on above: Performed By: #### S EDR #### [facility] [address] [place] [address] Dr. Juan Jose Banda IG % 0.5 % Normal 0.0-0.5 [facility] Comment on above: Performed By: #### S EDR #### [facility] [address] [place] [address] Dr. Juan Jose Banda LYMPH # 2.2 103/ul Normal 1.2-3.8 [facility] Comment on above: Performed By: #### S EDR #### [facility] [address] [place] [address] Dr. Juan Jose Banda Lymphocytes/100 WBC (Bld) 25.8 % Normal 20.5-60.0 [facility] Comment on above: Performed By: #### S EDR #### [facility] [address] [place] [address] Dr. Juan Jose Banda MANUAL DIFF REQ NO Normal [facility] Comment on above: Performed By: #### S EDR #### [facility] [address] [address] [address] JuanJ ose Banda MCH (RBC) [Entitic mass] 29.9 pg Normal 26.7-34.0 [facility] Comment on above: Performed By: #### S EDR #### [facility] [address] [place] [address] Dr. Juan Jose Banda MCHC (RBC) [Mass/Vol] 36.2 g/dL Critically high 29.9-35.2 [facility] Comment on above: Performed By: #### S EDR #### [facility] [address] [place] [address] Dr. Juan Jose Banda MCV (RBC) [Entitic vol] 82.4 fL Normal 81.0-99.0 [facility] Comment on above: Performed By: #### S EDR #### [facility] [address] [place] [address] Dr. Juan Jose Banda MONO # 0.9 103/ul Critically high 0.3-0.8 [facility] Comment on above: Performed By: #### S EDR #### [facility] [address] [place] [address] Dr. Juan Jose Banda Monocytes/100 WBC (Bld) 9.9 % Normal 1.7-12.0 [facility] Comment on above: Performed By: #### S EDR #### [facility] [address] [place] [address] Dr. Juan Jose Banda NEUT # 5.4 103/ul Normal 1.4-6.5 [facility] Comment on above: Performed By: #### S EDR #### [facility] [address] [place] [address] Dr. Juan Jose Banda Neutrophils/100 WBC (Bld) 62.2 % Normal 43.0-75.0 [facility] Comment on above: Performed By: #### S EDR #### [facility] [address] [place] [address] Dr. Juan Jose Banda Platelet mean volume (Bld) [Entitic vol] 11.7 fL Normal 9.5-13.5 [facility] Comment on above: Performed By: #### S EDR #### [facility] [address] [place] [address] Dr. Juan Jose Banda PLT 205 103/ul Normal 150-450 [facility] Comment on above: Performed By: #### S EDR #### [facility] [address] [place] [address] Dr. Juan Jose Banda RBC 4.32 106/ul Normal 4.20-5.40 [facility] Comment on above: Performed By: #### S EDR #### [facility] [address] [place] [address] Dr. Juan Jose Banda WBC 8.6 103/ul Normal 4.0-11.0 [facility] Comment on above: Performed By: #### S EDR #### [facility] [address] [place] [address] Dr. Juan Jose Banda ER URINE PROFILEon 2 Bilirubin Ql (U) Negative Normal NEGATIVE [facility] Comment on above: Performed By: #### H IV12 #### [facility] [address] [place] [address] Dr. Juan Jose Banda Clarity (U) CLEAR Normal CLEAR [facility] Comment on above: Performed By: #### H IV12 #### [facility] [address] [place] [address] Dr. Juan Jose Banda Color (U) LT. YELLOW Normal YELLOW [facility] Comment on above: Performed By: #### H IV12 #### [facility] [address] [place] [address] Dr. Juan Jose Banda ERUAHSiobhan A micrscopic examination will be performed if indicated. Normal [facility] Comment on above: Performed By: #### H IV12 #### [facility] [address] [place] [address] Dr. Juan Jose Banda Glucose Ql (U) Negative Normal NEGATIVE [facility] Comment on above: Performed By: #### H IV12 #### [facility] [address] [place] [address] Dr. Juan Jose Banda Hemoglobin Ql (U) Negative Normal NEGATIVE [facility] Comment on above: Performed By: #### H IV12 #### [facility] [address] [place] [address] Dr. Juan Jose Banda Ketones Ql (U) Negative Normal NEGATIVE [facility] Comment on above: Performed By: #### H IV12 #### [facility] [address] [place] [address] Dr. Juan Jose Banda LEUKOCYTES SMALL Abnormal NEGATIVE [facility] Comment on above: Performed By: #### H IV12 #### [facility] [address] [address] [address] Juan Jose Banda Nitrite Ql (U) Negative Normal NEGATIVE [facility] Comment on above: Performed By: #### H IV12 #### [facility] [address] [place] [address] Dr. Juan Jose Banda pH (U) 6.0 [pH] Normal 5-9 [facility] Comment on above: Performed By: #### H IV12 #### [facility] [address] [place] [address] Dr. Juan Jose Banda SPEC GRAVITY <=1.005 Abnormal 1.005-<=1.025 [facility] Comment on above: Performed By: #### H IV12 #### [facility] [address] [place] [address] Dr. Juan Jose Banda UA PROTEIN Negative Normal NEGATIVE/ TRACE [facility] Comment on above: Performed By: #### H IV12 #### [facility] [address] [place] [address] Dr. Juan Jose Banda UR MICRO IND INDICATED Normal [facility] Comment on above: Performed By: #### H IV12 #### [facility] [address] [place] [address] Dr. Juan Jose Banda Urobilinogen Qn (U) 0.2 {Tyler'U}/dL Normal 0.2 - 1. 0 [facility] Comment on above: Performed By: #### H IV12 #### [facility] [address] [place] [address] Dr. Juan Jose Banda PREG QUANT HCGon 06-20-2022 HCG QUANT 98854 mIU/mL Normal [facility] Comment on above: Performed By: #### R PRQ #### [facility] [address] [place] [address] Dr. Juan Jose Banda HCG RANGE SEE BELOW Normal [facility] Comment on above: Result Comment: 5-50 0.2-1 WEEK 50-500 1-2 WEEKS 100-5,000 2-3 WEEKS 500-10,000 3-4 WEEKS 1,000-50,000 4-5 WEEKS 10,000-100,000 5-6 WEEKS 15,000-200,000 6-8 WEEKS 10,000-100,000 2-3 MONTHS Performed By: #### R PRQ #### [facility] [address] [place] [address] Dr. Juan Jose Banda URon 06-20-2022 , QUAL Positive Abnormal NEGATIVE [facility] Comment on above: Performed By: #### H IV12 #### [facility] [address] [place] [address] Dr. Juan Jose Banda PROF CHEM 8 (BAS METB)on Anion gap [Moles/Vol] 9.4 mmol/L Normal [facility] Comment on above: Performed By: #### R PRQ #### [facility] [address] [place] [address] Dr. Juan Jose Banda Calcium [Mass/Vol] 8.8 mg/dL Normal 8.5-10.1 [facility] Comment on above: Performed By: #### R PRQ #### [facility] [address] [place] [address] Dr. Juan Jose Banda Chloride [Moles/Vol] 102 mmol/L Normal 98-107 [facility] Comment on above: Performed By: #### R PRQ #### [facility] [address] [place] [address] Dr. Juan Jose Banda CO2 [Moles/Vol] 28.0 mmol/L Normal 21.0-32.0 [facility] Comment on above: Performed By: #### R PRQ #### [facility] [address] [place] [address] Dr. Juan Jose Banda Creatinine [Mass/Vol] 0.66 mg/dL Normal 0.55-1.02 [facility] Comment on above: Performed By: #### R PRQ #### [facility] [address] [place] [address] Dr. Juan Jose Banda EGFR-AF GUYANESE >60 Normal >=60 [facility] Comment on above: Performed By: #### R PRQ #### [facility] [address] [place] [address] Dr. Juan Jose Banda EGFR-NON AF GUYANESE >60 Normal >=60 [facility] Comment on above: Performed By: #### R PRQ #### [facility] [address] [place] [address] Dr. Juan Jose Banda Glucose [Mass/Vol] 92 mg/dL Normal 74-106 [facility] Comment on above: Performed By: #### R PRQ #### [facility] [address] [place] [address] Dr. Juan Jose Banda Potassium [Moles/Vol] 3.4 mmol/L Critically low 3.5-5.1 [facility] Comment on above: Performed By: #### R PRQ #### [facility] [address] [place] [address] Dr. Juan Jose Banda Sodium [Moles/Vol] 136 mmol/L Normal 136-145 [facility] Comment on above: Performed By: #### R PRQ #### [facility] [address] [place] [address] Dr. Juan Jose Banda Urea nitrogen [Mass/Vol] 9.0 mg/dL Normal 6.4-19.3 [facility] Comment on above: Performed By: #### R PRQ #### [facility] [address] [place] [address] Dr. Juan Jose Banda Urea nitrogen/Creatinine [Mass ratio] 13.6 mg/mg Normal [facility] Comment on above: Performed By: #### R PRQ #### [facility] [address] [place] [address] Dr. Juan Jose Banda URINE MICROSCOPIC ONLYon BACTERIA TRACE Abnormal NONE SEEN [facility] Comment on above: Performed By: #### H IV12 #### [facility] [address] [place] [address] Dr. Juan Jose Banda Bacteria identified Cx Nom (U) NOT INDICATED Normal [facility] Comment on above: Performed By: #### H IV12 #### [facility] [address] [place] [address] Dr. Juan Jose Banda CAST NONE SEEN Normal NONE SEEN [facility] Comment on above: Performed By: #### H IV12 #### [facility] [address] [address] [address] Juan Jose Banda Crystals LM Nom (Urine sed) NONE SEEN Normal NONE SEEN [facility] Comment on above: Performed By: #### H IV12 #### [facility] [facility] [address] [address] [address] Juan Jose Banda Epithelial cells LM Ql (Urine sed) MANY Abnormal NONE SEEN /RARE [facility] Comment on above: Performed By: #### H IV12 #### [facility] [address] [place] [address] Dr. Juan Jose Banda MUCOUS TRACE Abnormal NONE SEEN [facility] Comment on above: Performed By: #### H IV12 #### [facility] [address] [place] [address] Dr. Juan Jose Banda RBC 0-2 Normal 0-2 [facility] Comment on above: Performed By: #### H IV12 #### [facility] [address] [place] [address] Dr. Juan Jose Banda WBC 0-2 Abnormal NONE SEEN [facility] Comment on above: Performed By: #### H IV12 #### [facility] [address] [place] [address] Dr. Juan Jose Banda US PREG TVon [...] LUISA ARCHIBALD Date: 2022-06-18 17:27 Normal [facility] ABO AND RH TYPEon 06-02-2022 ABO and Rh group Nom (Bld) ABO Rh Typing O Rh Positive Normal [facility] Comment on above: Performed By: #### A STUART #### [facility] [address] [place] [address] Dr. Juan Jose Banda AMYLASEon 06-02-2022 Amylase [Catalytic activity/Vol] 33 U/L Normal 25-115 [facility] Comment on above: Performed By: #### U RCX #### [facility] [address] [place] [address] Dr. Juan Jose Banda CBC AUTO DIFFon 06-02-2022 BASO # 0.0 103/ul Normal 0.0-0.1 [facility] Comment on above: Performed By: #### C OSORIO #### [facility] [address] [place] [address] Dr. Juan Jose Banda Basophils/100 WBC (Bld) 0.4 % Normal 0.2-2.0 [facility] Comment on above: Performed By: #### C OSORIO #### [facility] [address] [place] [address] Dr. Juan Jose Banda EO # 0.1 103/ul Normal 0.0-0.7 [facility] Comment on above: Performed By: #### C OSORIO #### [facility] [address] [place] [address] Dr. Juan Jose Banda Eosinophils/100 WBC (Bld) 2.2 % Normal 0.9-7.0 [facility] Comment on above: Performed By: #### C OSORIO #### [facility] [address] [place] [address] Dr. Juan Jose Banda Erythrocyte distribution width (RBC) [Ratio] 11.6 % Normal 11.0-15.0 [facility] Comment on above: Performed By: #### C OSORIO #### [facility] [address] [place] [address] Dr. Juan Jose Banda Hematocrit (Bld) [Volume fraction] 35.1 % Critically low 36.0-48.0 [facility] Comment on above: Performed By: #### C OSORIO #### [facility] [address] [address] [address] Juan Jose Banda Hemoglobin (Bld) [Mass/Vol] 12.5 g/dL Normal 12.0-16.0 [facility] Comment on above: Performed By: #### C OSORIO #### [facility] [address] [address] [address] Juan Jose Banda IG # 0.02 10e3/ul Normal 0.00-0.03 [facility] Comment on above: Performed By: #### C OSORIO #### [facility] [address] [address] [address] Juan Jose Banda IG % 0.4 % Normal 0.0-0.5 [facility] Comment on above: Performed By: #### C OSORIO #### [facility] [address] [place] [address] Dr. Juan Jose Banda LYMPH # 1.8 103/ul Normal 1.2-3.8 [facility] Comment on above: Performed By: #### C OSORIO #### [facility] [address] [place] [address] Dr. Juan Jose Banda Lymphocytes/100 WBC (Bld) 31.8 % Normal 20.5-60.0 [facility] Comment on above: Performed By: #### C OSORIO #### [facility] [address] [place] [address] Dr. Juan Jose Banda MANUAL DIFF REQ NO Normal [facility] Comment on above: Performed By: #### C OSORIO #### [facility] [address] [place] [address] Dr. Juan Jose Banda MCH (RBC) [Entitic mass] 29.9 pg Normal 26.7-34.0 [facility] Comment on above: Performed By: #### C OSORIO #### [facility] [address] [place] [address] Dr. Juan Jose Banda MCHC (RBC) [Mass/Vol] 35.6 g/dL Critically high 29.9-35.2 [facility] Comment on above: Performed By: #### C OSORIO #### [facility] [address] [address] [address] Juan Jose Banda MCV (RBC) [Entitic vol] 84.0 fL Normal 81.0-99.0 [facility] Comment on above: Performed By: #### C OSORIO #### [facility] [address] [address] [address] Juna Jose Banda MONO # 0.6 103/ul Normal 0.3-0.8 [facility] Comment on above: Performed By: #### C OSORIO #### [facility] [address] [address] [address] Juan Jose Banda Monocytes/100 WBC (Bld) 10.4 % Normal 1.7-12.0 [facility] Comment on above: Performed By: #### C OSORIO #### [facility] [address] [place] [address] Dr. Juan Jose Banda NEUT # 3.1 103/ul Normal 1.4-6.5 [facility] Comment on above: Performed By: #### C OSORIO #### [facility] [address] [place] [address] Dr. Juan Jose Banda Neutrophils/100 WBC (Bld) 54.8 % Normal 43.0-75.0 [facility] Comment on above: Performed By: #### C OSORIO #### [facility] [address] [place] [address] Dr. Juan Jose Banda Platelet mean volume (Bld) [Entitic vol] 11.8 fL Normal 9.5-13.5 [facility] Comment on above: Performed By: #### C OSORIO #### [facility] [address] [place] [address] Dr. Juan Jose Banda PLT 185 103/ul Normal 150-450 [facility] Comment on above: Performed By: #### C OSORIO #### [facility] [address] [place] [address] Dr. Juan Jose Banda RBC 4.18 106/ul Critically low 4.20-5.40 [facility] Comment on above: Performed By: #### C OSORIO #### [facility] [address] [place] [address] Dr. Juan Jose Banda WBC 5.6 103/ul Normal 4.0-11.0 [facility] Comment on above: Performed By: #### C BCMAN #### [facility] [address] [place] [address] Dr. Juan Jose Banda LIPASEon 06-02-2022 Lipase [Catalytic activity/Vol] 69.0 U/L Critically low 73.0-393.0 [facility] Comment on above: Performed By: #### U RCX #### [facility] [address] [place] [address] Dr. Juan Jose Banda PREG QUANT HCGon 06-02-2022 HCG QUANT 05791 mIU/mL Normal [facility] Comment on above: Performed By: #### R PRQ #### [facility] [address] [place] [address] Dr. Juan Jose Banda HCG RANGE SEE BELOW Normal [facility] Comment on above: Result Comment: 5-50 0.2-1 WEEK 50-500 1-2 WEEKS 100-5,000 2-3 WEEKS 500-10,000 3-4 WEEKS 1,000-50,000 4-5 WEEKS 10,000-100,000 5-6 WEEKS 15,000-200,000 6-8 WEEKS 10,000-100,000 2-3 MONTHS Performed By: #### R PRQ #### [facility] [address] [place] [address] Dr. Juan Jose Banda US PREG TVon [...] Marita SINHA Date: 2022-06-02 01:30 Normal [facility] CBC AUTO DIFFon 05-25-2022 BASO # 0.0 103/ul Normal 0.0-0.1 [facility] Comment on above: Performed By: #### H IV12 #### [facility] [address] [place] [address] Dr. Juan Jose Banda Basophils/100 WBC (Bld) 0.5 % Normal 0.2-2.0 [facility] Comment on above: Performed By: #### H IV12 #### [facility] [address] [place] [address] Dr. Juan Jose Banda EO # 0.1 103/ul Normal 0.0-0.7 [facility] Comment on above: Performed By: #### H IV12 #### [facility] [address] [place] [address] Dr. Juan Jose Banda Eosinophils/100 WBC (Bld) 1.2 % Normal 0.9-7.0 [facility] Comment on above: Performed By: #### H IV12 #### [facility] [address] [place] [address] Dr. Juan Jose Banda Erythrocyte distribution width (RBC) [Ratio] 11.6 % Normal 11.0-15.0 [facility] Comment on above: Performed By: #### H IV12 #### [facility] [address] [place] [address] Dr. Juan Jose Banda Hematocrit (Bld) [Volume fraction] 36.0 % Normal 36.0-48.0 [facility] Comment on above: Performed By: #### H IV12 #### [facility] [address] [place] [address] Dr. Juan Jose Banda Hemoglobin (Bld) [Mass/Vol] 12.7 g/dL Normal 12.0-16.0 [facility] Comment on above: Performed By: #### H IV12 #### [facility] [address] [place] [address] Dr. Juan Jose Banda IG # 0.03 10e3/ul Normal 0.00-0.03 [facility] Comment on above: Performed By: #### H IV12 #### [facility] [address] [address] [address] Juan Jose Banda IG % 0.4 % Normal 0.0-0.5 [facility] Comment on above: Performed By: #### H IV12 #### [facility] [address] [place] [address] Dr. Juan Jose Banda LYMPH # 2.4 103/ul Normal 1.2-3.8 [facility] Comment on above: Performed By: #### H IV12 #### [facility] [address] [place] [address] Dr. Juan Jose Banda Lymphocytes/100 WBC (Bld) 29.8 % Normal 20.5-60.0 [facility] Comment on above: Performed By: #### H IV12 #### [facility] [address] [place] [address] Dr. Juan Jose Banda MANUAL DIFF REQ NO Normal [facility] Comment on above: Performed By: #### H IV12 #### [facility] [address] [place] [address] Dr. Juan Jose Banda MCH (RBC) [Entitic mass] 29.9 pg Normal 26.7-34.0 [facility] Comment on above: Performed By: #### H IV12 #### [facility] [address] [place] [address] Dr. Juan Jose Banda MCHC (RBC) [Mass/Vol] 35.3 g/dL Critically high 29.9-35.2 [facility] Comment on above: Performed By: #### H IV12 #### [facility] [address] [place] [address] Dr. Juan Jose Banda MCV (RBC) [Entitic vol] 84.7 fL Normal 81.0-99.0 [facility] Comment on above: Performed By: #### H IV12 #### [facility] [address] [place] [address] Dr. Juan Jose Banda MONO # 0.8 103/ul Normal 0.3-0.8 [facility] Comment on above: Performed By: #### H IV12 #### [facility] [address] [place] [address] Dr. Juan Jose Banda Monocytes/100 WBC (Bld) 9.4 % Normal 1.7-12.0 [facility] Comment on above: Performed By: #### H IV12 #### [facility] [address] [place] [address] Dr. Juan Jose Banda NEUT # 4.8 103/ul Normal 1.4-6.5 [facility] Comment on above: Performed By: #### H IV12 #### [facility] [address] [place] [address] Dr. Juan Jose Banda Neutrophils/100 WBC (Bld) 58.7 % Normal 43.0-75.0 [facility] Comment on above: Performed By: #### H IV12 #### [facility] [address] [place] [address] Dr. Juan Jose Banda Platelet mean volume (Bld) [Entitic vol] 11.5 fL Normal 9.5-13.5 [facility] Comment on above: Performed By: #### H IV12 #### [facility] [address] [place] [address] Dr. Juan Jose Banda PLT 218 103/ul Normal 150-450 [facility] Comment on above: Performed By: #### H IV12 #### [facility] [address] [place] [address] Dr. Juan Jose Banda RBC 4.25 106/ul Normal 4.20-5.40 [facility] Comment on above: Performed By: #### H IV12 #### [facility] [address] [place] [address] Dr. Juan Jose Banda WBC 8.2 103/ul Normal 4.0-11.0 [facility] Comment on above: Performed By: #### H IV12 #### [facility] [address] [place] [address] Dr. Juan Jose LIAO URINE PROFILEon 2 Bilirubin Ql (U) Negative Normal NEGATIVE [facility] Comment on above: Performed By: #### R PRQ #### [facility] [address] [place] [address] Dr. Juan Jose Banda Clarity (U) CLEAR Normal CLEAR [facility] Comment on above: Performed By: #### R PRQ #### [facility] [address] [place] [address] Dr. Juan Jose Banda Color (U) LT. YELLOW Normal YELLOW [facility] Comment on above: Performed By: #### R PRQ #### [facility] [address] [place] [address] Dr. Juan Jose TAVAREZ A micrscopic examination will be performed if indicated. Normal [facility] Comment on above: Performed By: #### R PRQ #### [facility] [address] [place] [address] Dr. Juan Jose Banda Glucose Ql (U) Negative Normal NEGATIVE [facility] Comment on above: Performed By: #### R PRQ #### [facility] [address] [place] [address] Dr. Juan Jose Banda Hemoglobin Ql (U) Negative Normal NEGATIVE [facility] Comment on above: Performed By: #### R PRQ #### [facility] [address] [address] [address] Juan Jose Banda Ketones Ql (U) TRACE Abnormal NEGATIVE [facility] Comment on above: Performed By: #### R PRQ #### [facility] [address] [place] [address] Dr. Juan Jose Banda LEUKOCYTES SMALL Abnormal NEGATIVE [facility] Comment on above: Performed By: #### R PRQ #### [facility] [address] [place] [address] Dr. Juan Jose Banda Nitrite Ql (U) Negative Normal NEGATIVE [facility] Comment on above: Performed By: #### R PRQ #### [facility] [address] [place] [address] Dr. Juan Jose Banda pH (U) 5.5 [pH] Normal 5-9 [facility] Comment on above: Performed By: #### R PRQ #### [facility] [address] [place] [address] Dr. Juan Jose Banda SPEC GRAVITY 1.025 Normal 1.005-<=1.025 [facility] Comment on above: Performed By: #### R PRQ #### [facility] [address] [place] [address] Dr. Juan Jose Banda UA PROTEIN Negative Normal NEGATIVE/ TRACE [facility] Comment on above: Performed By: #### R PRQ #### [facility] [address] [place] [address] Dr. Juan Jose Banda UR MICRO IND INDICATED Normal [facility] Comment on above: Performed By: #### R PRQ #### [facility] [address] [place] [address] Dr. Juan Jose Banda Urobilinogen Qn (U) 0.2 {Tyler'U}/dL Normal 0.2 - 1. 0 [facility] Comment on above: Performed By: #### R PRQ #### [facility] [address] [place] [address] Dr. Juan Jose Banda PREG QUANT HCGon 05-25-2022 HCG QUANT 3347 mIU/mL Normal [facility] Comment on above: Performed By: #### U RCX #### [facility] [address] [place] [address] Dr. Juan Jose Banda HCG RANGE SEE BELOW Normal [facility] Comment on above: Result Comment: 5-50 0.2-1 WEEK 50-500 1-2 WEEKS 100-5,000 2-3 WEEKS 500-10,000 3-4 WEEKS 1,000-50,000 4-5 WEEKS 10,000-100,000 5-6 WEEKS 15,000-200,000 6-8 WEEKS 10,000-100,000 2-3 MONTHS Performed By: #### U RCX #### [facility] [address] [place] [address] Dr. Juan Jose Banda PROF 14(COMP METB)on 022 Albumin [Mass/Vol] 3.7 g/dL Normal 3.4-5.0 [facility] Comment on above: Performed By: #### H IV12 #### [facility] [address] [place] [address] Dr. Juan Jose Banda Albumin/Globulin [Mass ratio] 1.4 {ratio} Normal [facility] Comment on above: Performed By: #### H IV12 #### [facility] [address] [place] [address] Dr. Juan Jose Banda ALP [Catalytic activity/Vol] 66 U/L Normal 46-116 [facility] Comment on above: Performed By: #### H IV12 #### [facility] [address] [place] [address] Dr. Juan Jose Banda ALT [Catalytic activity/Vol] 18 U/L Normal 14-59 [facility] Comment on above: Performed By: #### H IV12 #### [facility] [address] [place] [address] Dr. Juan Jose Banda Anion gap [Moles/Vol] 11.5 mmol/L Normal [facility] Comment on above: Performed By: #### H IV12 #### [facility] [address] [place] [address] Dr. Juan Jose Banda AST [Catalytic activity/Vol] 10 U/L Critically low 15-37 [facility] Comment on above: Performed By: #### H IV12 #### [facility] [address] [place] [address] Dr. Juan Jose Banda Bilirubin [Mass/Vol] 0.4 mg/dL Normal 0.2-1.0 [facility] Comment on above: Performed By: #### H IV12 #### [facility] [address] [place] [address] Dr. Juan Jose Banda Calcium [Mass/Vol] 8.3 mg/dL Critically low 8.5-10.1 [facility] Comment on above: Performed By: #### H IV12 #### [facility] [address] [address] [address] Juan Jose Banda Chloride [Moles/Vol] 104 mmol/L Normal 98-107 [facility] Comment on above: Performed By: #### H IV12 #### [facility] [address] [place] [address] Dr. Juan Jose Banda CO2 [Moles/Vol] 27.3 mmol/L Normal 21.0-32.0 [facility] Comment on above: Performed By: #### H IV12 #### [facility] [address] [place] [address] Dr. Juan Jose Banda Creatinine [Mass/Vol] 0.72 mg/dL Normal 0.55-1.02 [facility] Comment on above: Performed By: #### H IV12 #### [facility] [address] [place] [address] Dr. Juan Jose Banda EGFR-AF GUYANESE >60 Normal >=60 [facility] Comment on above: Performed By: #### H IV12 #### [facility] [address] [place] [address] Dr. Juan Jose Banda EGFR-NON AF GUYANESE >60 Normal >=60 [facility] Comment on above: Performed By: #### H IV12 #### [facility] [address] [place] [address] Dr. Juan Jose Banda Globulin (S) [Mass/Vol] 2.7 g/dL Normal [facility] Comment on above: Performed By: #### H IV12 #### [facility] [address] [address] [address] Juan Jose Banda Glucose [Mass/Vol] 95 mg/dL Normal 74-106 [facility] Comment on above: Performed By: #### H IV12 #### [facility] [address] [place] [address] Dr. Juan Jose Banda Potassium [Moles/Vol] 3.8 mmol/L Normal 3.5-5.1 [facility] Comment on above: Performed By: #### H IV12 #### [facility] [address] [place] [address] Dr. Juan Jose Banda Protein [Mass/Vol] 6.4 g/dL Normal 6.4-8.2 [facility] Comment on above: Performed By: #### H IV12 #### [facility] [address] [place] [address] Dr. Juan Jose Banda Sodium [Moles/Vol] 139 mmol/L Normal 136-145 [facility] Comment on above: Performed By: #### H IV12 #### [facility] [address] [place] [address] Dr. Juan Jose Banda Urea nitrogen [Mass/Vol] 9.0 mg/dL Normal 6.4-19.3 [facility] Comment on above: Performed By: #### H IV12 #### [facility] [address] [place] [address] Dr. Juan Jose Banda Urea nitrogen/Creatinine [Mass ratio] 12.5 mg/mg Normal [facility] Comment on above: Performed By: #### H IV12 #### [facility] [address] [place] [address] Dr. Juan Jose Banda URINE MICROSCOPIC ONLYon BACTERIA TRACE Abnormal NONE SEEN [facility] Comment on above: Performed By: #### R PRQ #### [facility] [address] [place] [address] Dr. Juan Jose Banda Bacteria identified Cx Nom (U) INDICATED Normal [facility] Comment on above: Performed By: #### R PRQ #### [facility] [address] [place] [address] Dr. Juan Jose Banda CAST NONE SEEN Normal NONE SEEN [facility] Comment on above: Performed By: #### R PRQ #### [facility] [address] [place] [address] Dr. Juan Jose Banda Crystals LM Nom (Urine sed) NONE SEEN Normal NONE SEEN [facility] Comment on above: Performed By: #### R PRQ #### [facility] [address] [place] [address] Dr. Juan Jose Banda Epithelial cells LM Ql (Urine sed) RARE Normal NONE SEEN /RARE [facility] Comment on above: Performed By: #### R PRQ #### [facility] [address] [address] [address] Juan Jose Banda MUCOUS NONE SEEN Normal NONE SEEN [facility] Comment on above: Performed By: #### R PRQ #### [facility] [address] [address] [address] Juan Jose Banda RBC 0-2 Normal 0-2 [facility] Comment on above: Performed By: #### R PRQ #### [facility] [address] [address] [address] Juan Jose Banda WBC 10-20 Abnormal NONE SEEN [facility] Comment on above: Performed By: #### R PRQ #### [facility] [address] [address] [address] ABD/PELVIS WO [...] ALICJA AVILA Date: 2022-04-29 03:19 Normal [facility] ER URINE PROFILEon 2 Bilirubin Ql (U) Negative Normal NEGATIVE [facility] Comment on above: Performed By: #### C BCMAN #### [facility] [address] [place] [address] Dr. Juan Jose Banda Clarity (U) SL CLOUDY Abnormal CLEAR [facility] Comment on above: Performed By: #### C BCJESSICA #### [facility] [address] [address] [address] Juan Jose Banda Color (U) YELLOW Normal YELLOW [facility] Comment on above: Performed By: #### C BCJESSICA #### [facility] [address] [place] [address] Dr. Juan Jose Banda ERUAHD A micrscopic examination will be performed if indicated. Normal [facility] Comment on above: Performed By: #### C BCJESSICA #### [facility] [address] [address] [address] Juan Jose Banda Glucose Ql (U) Negative Normal NEGATIVE [facility] Comment on above: Performed By: #### C OSORIO #### [facility] [address] [place] [address] Dr. Juan Jose Banda Hemoglobin Ql (U) Negative Normal NEGATIVE [facility] Comment on above: Performed By: #### C OSORIO #### [facility] [address] [place] [address] Dr. Juan Jose Banda Ketones Ql (U) Negative Normal NEGATIVE [facility] Comment on above: Performed By: #### C OSORIO #### [facility] [address] [place], [place] [address] Dr. Juan Jose Banda LEUKOCYTES Negative Normal NEGATIVE [facility] Comment on above: Performed By: #### C OSORIO #### [facility] [address] [place] [address] Dr. Juan Jose Banda Nitrite Ql (U) Negative Normal NEGATIVE [facility] Comment on above: Performed By: #### C OSORIO #### [facility] [address] [address] [address] Juan Jose Banda pH (U) 6.0 [pH] Normal 5-9 [facility] Comment on above: Performed By: #### C OSORIO #### [facility] [address] [place] [address] Dr. Juan Jose Banda SPEC GRAVITY >=1.030 Abnormal 1.005-<=1.025 [facility] Comment on above: Performed By: #### C OSORIO #### [facility] [address] [address] [address] Juan Jose Banda UA PROTEIN Negative Normal NEGATIVE/ TRACE [facility] Comment on above: Performed By: #### C BCMAN #### [facility] [address] [address] [address] Juan Jose Banda UR MICRO IND NOT INDICATED Normal [facility] Comment on above: Performed By: #### C OSORIO #### [facility] [address] [address] [address] Juan Jose Banda Urobilinogen Qn (U) 0.2 {Tyler'U}/dL Normal 0.2 - 1. 0 [facility] Comment on above: Performed By: #### C OSORIO #### [facility] [address] [place] [address] Dr. Juan Jose Banda URon 04-29-2022 , QUAL Negative Normal NEGATIVE [facility] Comment on above: Performed By: #### C DILLONMAN #### [facility] [address] [place] [address] Dr. Juan Jose Banda PROCALCITONINon 04-13-2022 Procalcitonin 0.04 ng/mL Normal 0.00-0.08 [facility] Comment on above: Result Comment: . [...] obtained. Performed By: #### C OSORIO #### [facility] [address] [address] [address] Juan Jose Banda CBC AUTO DIFFon 04-10-2022 BASO # 0.0 103/ul Normal 0.0-0.1 [facility] Comment on above: Performed By: #### C BC #### [facility] [address] [place] [address] Dr. Juan Jose Banda Basophils/100 WBC (Bld) 0.3 % Normal 0.2-2.0 [facility] Comment on above: Performed By: #### C BC #### [facility] [address] [place] [address] Dr. Juan Jose Banda EO # 0.2 103/ul Normal 0.0-0.7 [facility] Comment on above: Performed By: #### C BC #### [facility] [address] [place] [address] Dr. Juan Jose Banda Eosinophils/100 WBC (Bld) 2.5 % Normal 0.9-7.0 [facility] Comment on above: Performed By: #### C BC #### [facility] [address] [place] [address] Dr. Juan Jose Banda Erythrocyte distribution width (RBC) [Ratio] 11.6 % Normal 11.0-15.0 [facility] Comment on above: Performed By: #### C BC #### [facility] [address] [place] [address] Dr. Juan Jose Banda Hematocrit (Bld) [Volume fraction] 38.2 % Normal 36.0-48.0 [facility] Comment on above: Performed By: #### C BC #### [facility] [address] [place] [address] Dr. Juan Jose Banda Hemoglobin (Bld) [Mass/Vol] 13.5 g/dL Normal 12.0-16.0 [facility] Comment on above: Performed By: #### C BC #### [facility] [address] [place] [address] Dr. Juan Jose Banda IG # 0.01 10e3/ul Normal 0.00-0.03 [facility] Comment on above: Performed By: #### C BC #### [facility] [address] [place] [address] Dr. Juan Jose Banda IG % 0.2 % Normal 0.0-0.5 [facility] Comment on above: Performed By: #### C BC #### [facility] [address] [place] [address] Dr. Juan Jose Banda LYMPH # 2.2 103/ul Normal 1.2-3.8 [facility] Comment on above: Performed By: #### C BC #### [facility] [address] [place] [address] Dr. Juan Jose Banda Lymphocytes/100 WBC (Bld) 33.3 % Normal 20.5-60.0 [facility] Comment on above: Performed By: #### C BC #### [facility] [address] [place] [address] Dr. Juan Jose Banda MANUAL DIFF REQ NO Normal [facility] Comment on above: Performed By: #### C BC #### [facility] [address] [place] [address] Dr. Juan Jose Banda MCH (RBC) [Entitic mass] 29.6 pg Normal 26.7-34.0 [facility] Comment on above: Performed By: #### C BC #### [facility] [address] [place] [address] Dr. Juan Jose Banda MCHC (RBC) [Mass/Vol] 35.3 g/dL Critically high 29.9-35.2 [facility] Comment on above: Performed By: #### C BC #### [facility] [address] [place] [address] Dr. Juan Jose Banda MCV (RBC) [Entitic vol] 83.8 fL Normal 81.0-99.0 [facility] Comment on above: Performed By: #### C BC #### [facility] [address] [place] [address] Dr. Juan Jose Banda MONO # 0.7 103/ul Normal 0.3-0.8 [facility] Comment on above: Performed By: #### C BC #### [facility] [address] [place] [address] Dr. Juan Jose Banda Monocytes/100 WBC (Bld) 10.2 % Normal 1.7-12.0 [facility] Comment on above: Performed By: #### C BC #### [facility] [address] [place] [address] Dr. Juan Jose Banda NEUT # 3.5 103/ul Normal 1.4-6.5 [facility] Comment on above: Performed By: #### C BC #### [facility] [address] [place] [address] Dr. Juan Jose Banda Neutrophils/100 WBC (Bld) 53.5 % Normal 43.0-75.0 [facility] Comment on above: Performed By: #### C BC #### [facility] [address] [place] [address] Dr. Juan Jose Banda Platelet mean volume (Bld) [Entitic vol] 11.9 fL Normal 9.5-13.5 [facility] Comment on above: Performed By: #### C BC #### [facility] [address] [place] [address] Dr. Juan Jose Banda PLT 200 103/ul Normal 150-450 [facility] Comment on above: Performed By: #### C BC #### [facility] [address] [place] [address] Dr. Juan Jose Banda RBC 4.56 106/ul Normal 4.20-5.40 [facility] Comment on above: Performed By: #### C BC #### [facility] [address] [place] [address] Dr. Juan Jose Banda WBC 6.5 103/ul Normal 4.0-11.0 [facility] Comment on above: Performed By: #### C BC #### [facility] [address] [place] [address] [address] ABD/PELV W [...] TO Date: 2022-04-10 08:37 Normal [facility] GROUP A STREP CULTUREon S. pyogenes Ag Ql (Unsp spec) Culture Observations: NEGATIVE FOR GROUP A STREPTOCOCCUS. Normal [facility] Comment on above: Performed By: #### U RCX #### [facility] [address] [place] [address] Dr. Juan Jose Banda LACTATE/LACTIC ACIDon 2021 Lactate [Moles/Vol] 0.9 mmol/L Normal 0.4-1.9 [facility] Comment on above: Performed By: #### U RCX #### [facility] [address] [address] [address] Juan Jose Banda Lactate [Moles/Vol] 2.5 mmol/L Critically high 0.4-1.9 [facility] Comment on above: Performed By: #### U RCX #### [facility] [address] [address] [address] Juan Jose Banda PREG HCG QUALon 04-10-2022 , QUAL Negative Normal NEGATIVE [facility] Comment on above: Performed By: #### S EDR #### [facility] [address] [address] [address] Juan Jose Banda PROF 14(COMP METB)on 022 Albumin [Mass/Vol] 4.3 g/dL Normal 3.4-5.0 [facility] Comment on above: Performed By: #### C DILLONMAN #### [facility] [address] [place] [address] Dr. Juan Jose Banda Albumin/Globulin [Mass ratio] 1.8 {ratio} Normal [facility] Comment on above: Performed By: #### C BCMAN #### [facility] [address] [place] [address] Dr. Juan Jose Banda ALP [Catalytic activity/Vol] 92 U/L Normal 46-116 [facility] Comment on above: Performed By: #### C BCMAN #### [facility] [address] [place] [address] Dr. Juan Jose Banda ALT [Catalytic activity/Vol] 20 U/L Normal 14-59 [facility] Comment on above: Performed By: #### C BCMAN #### [facility] [address] [address] [address] Juan Jose Banda Anion gap [Moles/Vol] 15.4 mmol/L Normal [facility] Comment on above: Performed By: #### C BCMAN #### [facility] [address] [place] [address] Dr. Juan Jose Banda AST [Catalytic activity/Vol] 17 U/L Normal 15-37 [facility] Comment on above: Performed By: #### C BCMAN #### [facility] [address] [address] [address] Juan Jose Banda Bilirubin [Mass/Vol] 1.2 mg/dL Critically high 0.2-1.0 [facility] Comment on above: Performed By: #### C BCMAN #### [facility] [address] [address] [address] Juan Jose Banda Calcium [Mass/Vol] 8.8 mg/dL Normal 8.5-10.1 [facility] Comment on above: Performed By: #### C BCMAN #### [facility] [address] [address] [address] Juan Jose Banda Chloride [Moles/Vol] 107 mmol/L Normal 98-107 [facility] Comment on above: Performed By: #### C BCMAN #### [facility] [address] [address] [address] Juan Jose Banda CO2 [Moles/Vol] 23.0 mmol/L Normal 21.0-32.0 [facility] Comment on above: Performed By: #### C BCMAN #### [facility] [address] [address] [address] Juan Jose Banda Creatinine [Mass/Vol] 0.95 mg/dL Normal 0.55-1.02 [facility] Comment on above: Performed By: #### C BCMAN #### [facility] [address] [address] [address] Juan Jose Banda Globulin (S) [Mass/Vol] 2.4 g/dL Normal [facility] Comment on above: Performed By: #### C BCMAN #### [facility] [address] [address] [address] Juan Jose Banda Glucose [Mass/Vol] 95 mg/dL Normal 74-106 [facility] Comment on above: Performed By: #### C BCMAN #### [facility] [address] [address] [address] Juan Jose Banda Potassium [Moles/Vol] 3.4 mmol/L Critically low 3.5-5.1 [facility] Comment on above: Performed By: #### C BCMAN #### [facility] [address] [address] [address] Juan Jose Banda Protein [Mass/Vol] 6.7 g/dL Normal 6.4-8.2 [facility] Comment on above: Performed By: #### C BCMAN #### [facility] [address] [address] [address] Juan Jose Banda Sodium [Moles/Vol] 142 mmol/L Normal 136-145 [facility] Comment on above: Performed By: #### C DILLONMAN #### [facility] [address] [address] [address] Juan Jose Banda Urea nitrogen [Mass/Vol] 13.0 mg/dL Normal 6.4-19.3 [facility] Comment on above: Performed By: #### C DILLONMAN #### [facility] [address] [address] [address] Juan Jose Banda Urea nitrogen/Creatinine [Mass ratio] 13.7 mg/mg Normal [facility] Comment on above: Performed By: #### C BCMAN #### [facility] [address] [address] [address] Juan Jose Banda SED RATE WESTERGRENon 2021 SED RATE 1 mm/hr Normal <=20 [facility] Comment on above: Performed By: #### S EDR #### [facility] [address] [address] [address] Juan Jose Banda STREPT SCREENon 04-10-2022 STREP SCREEN A Negative Normal NEGATIVE [facility] Comment on above: Performed By: #### U RCX #### [facility] [address] [address] [address] Juan Jose Banda AMYLASEon 04-07-2022 Amylase [Catalytic activity/Vol] 29 U/L Normal 25-115 [facility] Comment on above: Performed By: #### H IV12 #### [facility] [address] [address] [address] Juan Jose Banda CBC AUTO DIFFon 04-07-2022 BASO # 0.0 103/ul Normal 0.0-0.1 [facility] Comment on above: Performed By: #### R PRQ #### [facility] [address] [place] [address] Dr. Juan Jose Banda Basophils/100 WBC (Bld) 0.4 % Normal 0.2-2.0 [facility] Comment on above: Performed By: #### R PRQ #### [facility] [address] [place] [address] Dr. Juan Jose Banda EO # 0.1 103/ul Normal 0.0-0.7 [facility] Comment on above: Performed By: #### R PRQ #### [facility] [address] [place] [address] Dr. Juan Jose Banda Eosinophils/100 WBC (Bld) 1.4 % Normal 0.9-7.0 [facility] Comment on above: Performed By: #### R PRQ #### [facility] [address] [place] [address] Dr. Juan Jose Banda Erythrocyte distribution width (RBC) [Ratio] 11.5 % Normal 11.0-15.0 [facility] Comment on above: Performed By: #### R PRQ #### [facility] [address] [place] [address] Dr. Juan Jose Banda Hematocrit (Bld) [Volume fraction] 36.5 % Normal 36.0-48.0 [facility] Comment on above: Performed By: #### R PRQ #### [facility] [address] [place] [address] Dr. Juan Jose Banda Hemoglobin (Bld) [Mass/Vol] 13.0 g/dL Normal 12.0-16.0 [facility] Comment on above: Performed By: #### R PRQ #### [facility] [address] [place] [address] Dr. Juan Jose Banda IG # 0.02 10e3/ul Normal 0.00-0.03 [facility] Comment on above: Performed By: #### R PRQ #### [facility] [address] [place] [address] Dr. Juan Jose Banda IG % 0.3 % Normal 0.0-0.5 [facility] Comment on above: Performed By: #### R PRQ #### [facility] [address] [place] [address] Dr. Juan Jose Banda LYMPH # 2.4 103/ul Normal 1.2-3.8 [facility] Comment on above: Performed By: #### R PRQ #### [facility] [address] [place] [address] Dr. Juan Jose Banda Lymphocytes/100 WBC (Bld) 31.4 % Normal 20.5-60.0 [facility] Comment on above: Performed By: #### R PRQ #### [facility] [address] [place] [address] Dr. Juan Jose Banda MANUAL DIFF REQ NO Normal [facility] Comment on above: Performed By: #### R PRQ #### [facility] [address] [place] [address] Dr. Juan Jose Banda MCH (RBC) [Entitic mass] 29.8 pg Normal 26.7-34.0 [facility] Comment on above: Performed By: #### R PRQ #### [facility] [address] [place] [address] Dr. Juan Jose Banda MCHC (RBC) [Mass/Vol] 35.6 g/dL Critically high 29.9-35.2 [facility] Comment on above: Performed By: #### R PRQ #### [facility] [address] [place] [address] Dr. Juan Jose Banda MCV (RBC) [Entitic vol] 83.7 fL Normal 81.0-99.0 [facility] Comment on above: Performed By: #### R PRQ #### [facility] [address] [place] [address] Dr. Juan Jose Banda MONO # 0.9 103/ul Critically high 0.3-0.8 [facility] Comment on above: Performed By: #### R PRQ #### [facility] [address] [place] [address] Dr. Juan Jose Banda Monocytes/100 WBC (Bld) 11.1 % Normal 1.7-12.0 [facility] Comment on above: Performed By: #### R PRQ #### [facility] [address] [place] [address] Dr. Juan Jose Banda NEUT # 4.3 103/ul Normal 1.4-6.5 [facility] Comment on above: Performed By: #### R PRQ #### [facility] [address] [place] [address] Dr. Juan Jose Banda Neutrophils/100 WBC (Bld) 55.4 % Normal 43.0-75.0 [facility] Comment on above: Performed By: #### R PRQ #### [facility] [address] [place] [address] Dr. Juan Jose Banda Platelet mean volume (Bld) [Entitic vol] 11.6 fL Normal 9.5-13.5 [facility] Comment on above: Performed By: #### R PRQ #### [facility] [address] [place] [address] Dr. Juan Jose Banda PLT 187 103/ul Normal 150-450 [facility] Comment on above: Performed By: #### R PRQ #### [facility] [address] [place] [address] Dr. Juan Jose Banda RBC 4.36 106/ul Normal 4.20-5.40 [facility] Comment on above: Performed By: #### R PRQ #### [facility] [address] [place] [address] Dr. Juan Jose Banda WBC 7.7 103/ul Normal 4.0-11.0 [facility] Comment on above: Performed By: #### R PRQ #### [facility] [address] [place] [address] Dr. Juan Jose Banda ER URINE PROFILEon 2 Bilirubin Ql (U) SMALL Abnormal NEGATIVE [facility] Comment on above: Performed By: #### U RCX #### [facility] [address] [place] [address] Dr. Juan Jose Banda Clarity (U) CLEAR Normal CLEAR [facility] Comment on above: Performed By: #### U RCX #### [facility] [address] [place] [address] Dr. Juan Jose Banda Color (U) YELLOW Normal YELLOW [facility] Comment on above: Performed By: #### U RCX #### [facility] [address] [place] [address] Dr. Juan Jose TAVAREZ A micrscopic examination will be performed if indicated. Normal [facility] Comment on above: Performed By: #### U RCX #### [facility] [address] [place] [address] Dr. Juan Jose Banda Glucose Ql (U) Negative Normal NEGATIVE [facility] Comment on above: Performed By: #### U RCX #### [facility] [address] [place] [address] Dr. Juan Jose Banda Hemoglobin Ql (U) Negative Normal NEGATIVE [facility] Comment on above: Performed By: #### U RCX #### [facility] [address] [place] [address] Dr. Juan Jose Banda Ketones Ql (U) 40 mg/dl Abnormal NEGATIVE [facility] Comment on above: Performed By: #### U RCX #### [facility] [address] [place] [address] Dr. Juan Jose Banda LEUKOCYTES Negative Normal NEGATIVE [facility] Comment on above: Performed By: #### U RCX #### [facility] [address] [place] [address] Dr. Juan Jose Banda Nitrite Ql (U) Negative Normal NEGATIVE [facility] Comment on above: Performed By: #### U RCX #### [facility] [address] [place] [address] Dr. Juan Jose Banda pH (U) 5.5 [pH] Normal 5-9 [facility] Comment on above: Performed By: #### U RCX #### [facility] [address] [place] [address] Dr. Juan Jose Banda SPEC GRAVITY 1.030 Abnormal 1.005-<=1.025 [facility] Comment on above: Performed By: #### U RCX #### [facility] [address] [place] [address] Dr. Juan Jose Banda UA PROTEIN Negative Normal NEGATIVE/ TRACE [facility] Comment on above: Performed By: #### U RCX #### [facility] [address] [place] [address] Dr. Juan Jose Banda UR MICRO IND NOT INDICATED Normal [facility] Comment on above: Performed By: #### U RCX #### [facility] [address] [place] [address] Dr. Juan Jose Banda Urobilinogen Qn (U) 0.2 {Tyler'U}/dL Normal 0.2 - 1. 0 [facility] Comment on above: Performed By: #### U RCX #### [facility] [address] [place] [address] Dr. Juan Jose Banda LIPASEon 04-07-2022 Lipase [Catalytic activity/Vol] 77.0 U/L Normal 73.0-393.0 [facility] Comment on above: Performed By: #### H IV12 #### [facility] [address] [place] [address] Dr. Juan Jose Banda URon 04-07-2022 , QUAL Negative Normal NEGATIVE [facility] Comment on above: Performed By: #### U RCX #### [facility] [address] [place] [address] Dr. Juan Jose Banda PROF 14(COMP METB)on 022 Albumin [Mass/Vol] 4.4 g/dL Normal 3.4-5.0 [facility] Comment on above: Performed By: #### H IV12 #### [facility] [address] [place] [address] Dr. Juan Jose Banda Albumin/Globulin [Mass ratio] 1.5 {ratio} Normal [facility] Comment on above: Performed By: #### H IV12 #### [facility] [address] [place] [address] Dr. Juan Jose Banda ALP [Catalytic activity/Vol] 97 U/L Normal 46-116 [facility] Comment on above: Performed By: #### H IV12 #### [facility] [address] [address] [address] Juan Jose Banda ALT [Catalytic activity/Vol] 16 U/L Normal 14-59 [facility] Comment on above: Performed By: #### H IV12 #### [facility] [address] [address] [address] Juan Jose Banda Anion gap [Moles/Vol] 15.4 mmol/L Normal [facility] Comment on above: Performed By: #### H IV12 #### [facility] [address] [address] [address] Juan Jose Banda AST [Catalytic activity/Vol] 19 U/L Normal 15-37 [facility] Comment on above: Performed By: #### H IV12 #### [facility] [address] [address] [address] Juan Jose Banda Bilirubin [Mass/Vol] 0.9 mg/dL Normal 0.2-1.0 [facility] Comment on above: Performed By: #### H IV12 #### [facility] [address] [address] [address] Juan Jose Banda Calcium [Mass/Vol] 9.2 mg/dL Normal 8.5-10.1 [facility] Comment on above: Performed By: #### H IV12 #### [facility] [address] [place] [address] Dr. Juan Jose Banda Chloride [Moles/Vol] 107 mmol/L Normal 98-107 [facility] Comment on above: Performed By: #### H IV12 #### [facility] [address] [address] [address] Juan Jose Banda CO2 [Moles/Vol] 22.2 mmol/L Normal 21.0-32.0 [facility] Comment on above: Performed By: #### H IV12 #### [facility] [address] [place] [address] Dr. Juan Jose Banda Creatinine [Mass/Vol] 0.94 mg/dL Normal 0.55-1.02 [facility] Comment on above: Performed By: #### H IV12 #### [facility] [address] [address] [address] Juan Jose Banda EGFR-AF GUYANESE >60 Normal >=60 [facility] Comment on above: Performed By: #### H IV12 #### [facility] [address] [place] [address] Dr. Juan Jose Banda EGFR-NON AF GUYANESE >60 Normal >=60 [facility] Comment on above: Performed By: #### H IV12 #### [facility] [address] [address] [address] Juan Jose Banda Globulin (S) [Mass/Vol] 2.9 g/dL Normal [facility] [facility] Comment on above: Performed By: #### H IV12 #### [facility] [address] [place] [address] Dr. Juan Jose Banda Glucose [Mass/Vol] 93 mg/dL Normal 74-106 [facility] Comment on above: Performed By: #### H IV12 #### [facility] [address] [address] [address] Juan Jose Banda Potassium [Moles/Vol] 3.6 mmol/L Normal 3.5-5.1 [facility] Comment on above: Performed By: #### H IV12 #### [facility] [address] [place] [address] Dr. Juan Jose Banda Protein [Mass/Vol] 7.3 g/dL Normal 6.4-8.2 [facility] Comment on above: Performed By: #### H IV12 #### [facility] [address] [address] [address] Juan Jose Banda Sodium [Moles/Vol] 141 mmol/L Normal 136-145 [facility] Comment on above: Performed By: #### H IV12 #### [facility] [address] [address] [address] Juan Jose Banda Urea nitrogen [Mass/Vol] 14.0 mg/dL Normal 6.4-19.3 [facility] Comment on above: Performed By: #### H IV12 #### [facility] [address] [place] [address] Dr. Juan Jose Banda Urea nitrogen/Creatinine [Mass ratio] 14.9 mg/mg Normal [facility] Comment on above: Performed By: #### H IV12 #### [facility] [address] [place] [address] Dr. Juan Jose Banda HCG-BETA SUBUNIT QUANTon hCG,Beta Subunit,Qnt,Serum <1 Normal [facility] Comment on above: Result Comment: Fema le (Non-) 0 - 5 (Postmenopausal) 0 - 8 . Female () Weeks of Gestation 3 6 - 71 4 10 - 750 5 425 - 3009 6 377 - 31286 7 [phone] 8 [id number] [id number] 9 [phone] 10 [id number] -[phone] 12 51975 -[id number] 14 95087 - 57634 15 71218 - 69939 16 1674 - 61233 17 0640 - 54208 18 7258 - [phone] Serena ECLIA methodology Performed By: #### R PRQ #### [facility] [address] [place] [address] Dr. Juan Jose Banda Vital Signs Date Time Vital Sign Value Performing Clinician Faci lity 04-29-2025 15:42-0400 Body mass index (BMI) [Ratio] 24.37 kg/m2 Wolfgang Hazel Mail DO Work Phone: [facility] 04-29-2025 15:42-0400 Body weight 68.49 kg Wolfgang Yasmin DO Work Phone: [facility] 04-29-2025 15:42-0400 Diastolic blood pressure 68 mm[Hg] Wolfgang Yasmin DO Work Phone: [facility] 04-29-2025 15:42-0400 Systolic blood pressure 104 mm[Hg] Wolfgang Yasmin DO Work Phone: [facility] 04-17-2025 15:25-0400 Body mass index (BMI) [Ratio] 24.45 kg/m2 Elvia Calvillo BROKER ASSISTANT Work Phone: [facility] 04-17-2025 15:25-0400 Body weight 68.72 kg Elvia Calvillo BROKER ASSISTANT Work Phone: [facility] 04-17-2025 15:25-0400 Diastolic blood pressure 70 mm[Hg] Elvia Rajinder BROKER ASSISTANT Work Phone: [facility] 04-17-2025 15:25-0400 Systolic blood pressure 120 mm[Hg] Elvia Rajinder BROKER ASSISTANT Work Phone: [facility] 04-03-2025 15:58-0400 Body mass index (BMI) [Ratio] 23.53 kg/m2 Wolfgang Yasmin DO Work Phone: [facility] 04-03-2025 15:58-0400 Body weight 66.13 kg Wolfgang Yasmin DO Work Phone: [facility] 04-03-2025 15:58-0400 Diastolic blood pressure 60 mm[Hg] Wolfgang Yasmin DO Work Phone: [facility] 04-03-2025 15:58-0400 Systolic blood pressure 100 mm[Hg] Wolfgang Yasmin DO Work Phone: [facility] 02-25-2025 15:21-0400 Body mass index (BMI) [Ratio] 23.69 kg/m2 Wolfgang Yasmin DO Work Phone: [facility] 02-25-2025 15:21-0400 Body weight 66.59 kg Wolfgang Yasmin DO Work Phone: [facility] 02-25-2025 15:21-0400 Diastolic blood pressure 60 mm[Hg] Wolfgang Yasmin DO Work Phone: [facility] 02-25-2025 15:21-0400 Systolic blood pressure 108 mm[Hg] Wolfgang Yasmin DO Work Phone: [facility] 01-01-2025 13:43-0400 Body mass index (BMI) [Ratio] 21.95 kg/m2 Wolfgang Yasmin DO Work Phone: [facility] 01-01-2025 13:43-0400 Body weight 61.69 kg Wolfgang Yasmin DO Work Phone: [facility] 01-01-2025 13:43-0400 Diastolic blood pressure 58 mm[Hg] Wolfgang Yasmin DO Work Phone: [facility] 01-01-2025 13:43-0400 Systolic blood pressure 108 mm[Hg] Wolfgang Yasmin DO Work Phone: [facility] 12-06-2024 13:24-0400 Body mass index (BMI) [Ratio] 22.11 kg/m2 Nom Nurse [facility] 12-06-2024 13:24-0400 Body weight 62.14 kg [facility] Nurse [facility] 12-06-2024 13:24-0400 Diastolic blood pressure 70 mm[Hg] [facility] Nurse [facility] 12-06-2024 13:24-0400 Systolic blood pressure 120 mm[Hg] [facility] Nurse [facility] 11-08-2024 11:15-0400 Body mass index (BMI) [Ratio] 21.69 kg/m2 Wolfgang Yasmin DO Work Phone: [facility] 11-08-2024 11:15-0400 Body weight 60.96 kg Wolfgang Yasmin DO Work Phone: [facility] 11-08-2024 11:15-0400 Diastolic blood pressure 70 mm[Hg] Wolfgang Yasmin DO Work Phone: [facility] 11-08-2024 11:15-0400 Systolic blood pressure 120 mm[Hg] Wolfgang Yasmin DO Work Phone: [facility] 10-18-2023 10:03-0400 Body height 175.3 cm Viki Trevizooll SENIOR ELECTRICAL DESIGN ENGINEER-GOVERNMENT DOCUMENTS LIBRARIAN Work Phone: [facility] 10-18-2023 10:03-0400 Body mass index (BMI) [Ratio] 19.73 kg/m2 Viki Trevizooll SENIOR ELECTRICAL DESIGN ENGINEER-GOVERNMENT DOCUMENTS LIBRARIAN Work Phone: [facility] 10-18-2023 10:03-0400 Body weight 60.6 kg Viki Jorge SENIOR ELECTRICAL DESIGN ENGINEER-GOVERNMENT DOCUMENTS LIBRARIAN Work Phone: [facility] 10-18-2023 10:03-0400 Diastolic blood pressure 62 mm[Hg] Viki Patel SENIOR ELECTRICAL DESIGN ENGINEER-GOVERNMENT DOCUMENTS LIBRARIAN Work Phone: [facility] 10-18-2023 10:03-0400 Heart rate 74 /min Viki Patel SENIOR ELECTRICAL DESIGN ENGINEER-GOVERNMENT DOCUMENTS LIBRARIAN Work Phone: [facility] 10-18-2023 10:03-0400 Systolic blood pressure 123 mm[Hg] Viki Patel SENIOR ELECTRICAL DESIGN ENGINEER-GOVERNMENT DOCUMENTS LIBRARIAN Work Phone: [facility] 09-28-2023 09:20-0500 Body height 175.3 cm Pm [address] [facility] 09-28-2023 09:20-0500 Body mass index (BMI) [Ratio] 19.64 kg/m2 Pm [address] [facility] 09-28-2023 09:20-0500 Body weight 60.33 kg Pm [address] [facility] Encounters Encounter Date Encounter Type Care Provider Facility Start: 04-29-2025 End: 04-29-2025 Office outpatient visit 15 minutes Wolfgang Yasmin DO Work Phone: [facility] Comment on above: Third trimester preg elbert ([facility]); 29 weeks gestation of ([facility]); Psychogenic nonepileptic seizure ; Diabetes [...] Office outpatient visit 15 minutes Elvia Calvillo BROKER ASSISTANT Work Phone: [facility] Comment on above: Third trimester preg elbert ([facility]); 28 weeks gestation of ([facility]) Start: 04-17-2025 End: 04-17-2025 Bamboo flowsheet Elvia Calvillo NP Work Phone: [facility] Start: 04-17-2025 End: 04-17-2025 Bamboo flowsheet Elvia Calvillo BROKER ASSISTANT Work Phone: [facility] Start: 04-03-2025 End: 04-03-2025 ambulatory WOLFGANG YASMIN Not Available Start: 04-03-2025 End: 04-03-2025 Office outpatient visit 15 minutes Wolfgang Yasmin DO Work Phone: [facility] Comment on above: Anxiety, generalized (Primary Dx); Second trimester ([facility]); 26 weeks gestation of ([facility]); History of psychogenic nonepileptic seizure Start: 04-03-2025 End: 04-03-2025 Bamboo flowsheet Wolfgang Yasmin DO Work Phone: [facility] Start: 04-03-2025 End: 04-03-2025 Bamboo flowsheet Wolfgang Yasmin DO Work Phone: [facility] Start: 03-20-2025 End: 03-20-2025 Office outpatient visit 15 minutes Gogo MARTINEZ Work Phone: [facility] Comment on above: Second trimester pre gnancy ([facility]); 24 weeks gestation of ([facility]); Diabetes mellitus screening; Yeast infection; BV (bacterial vaginosis); Urinary tract infection without hematuria, site unspecified Start: 03-20-2025 End: 03-20-2025 ambulatory GOGO PANG Not Available Start: 03-20-2025 End: 03-20-2025 Bamboo flowsheet Gogo MARTINEZ Work Phone: [facility] Start: 03-20-2025 End: 03-20-2025 Bamboo flowsheet Gogo MARTINEZ Work Phone: [facility] Start: 02-25-2025 End: 02-25-2025 Office outpatient visit 15 minutes Wolfgang Yasmin DO Work Phone: [facility] Comment on above: Second trimester pre gnancy ([facility]); 20 weeks gestation of ([facility]) Start: 02-25-2025 End: 02-25-2025 ambulatory WOLFGANG YASMIN [...] exam with routine gynecological exam; Second trimester ([facility]); 16 weeks gestation of ([facility]); Vaginal discharge; STD exposure; Screening, , for anatomic survey ([facility]) Start: 01-29-2025 End: 01-29-2025 Patient encounter procedure [...] OB Comment on above: First trimester preg elbert; 12 weeks gestation of ; History of psychogenic nonepileptic seizure Start: 01-01-2025 End: 01-01-2025 ambulatory WOLFGANG YASMIN Not Available Start: 12-25-2024 ambulatory Shivam Delgado acility:[facility] Start: 12-07-2024 End: 12-07-2024 Clinisync Result [...] Dx) Start: 11-08-2024 End: 11-08-2024 ambulatory WOLFGANG YASMNI Not Available Start: 11-02-2024 End: 11-02-2024 Clinisync [...] General Surgery Start: 10-18-2023 End: 10-18-2023 ambulatory [facility] Start: 10-18-2023 End: 10-18-2023 Postop follow up visit related to original px [facility] SENIOR ELECTRICAL DESIGN ENGINEER-GOVERNMENT DOCUMENTS LIBRARIAN Work Phone: [facility] Comment on above: Status post laparosc opic cholecystectomy (Primary Dx) Start: 10-03-2023 End: 10-03-2023 Evaluation and management of inpatient YO Juan Manuel ANTONELLA [facility] Start: 10-03-2023 End: 10-03-2023 Evaluation and management of inpatient WILMAR GAMA [facility] Start: 09-28-2023 End: 09-29-2023 ambulatory YO BERMAN [facility] Start: 09-28-2023 Encounter for other preprocedural examination [facility] Start: 09-28-2023 End: 09-28-2023 Patient encounter procedure [facility] Pre-Admission Testing 2 [facility] - Pre Admit Comment on above: Preop examination (P rimary Dx); Asthma, unspecified asthma severity, unspecified whether complicated, unspecified whether persistent Start: 09-28-2023 End: 09-28-2023 Preprocedural examination done [facility] [address] [facility] Start: 09-27-2023 End: 09-27-2023 ambulatory [facility] Start: 09-27-2023 End: 09-27-2023 Office outpatient new 30 minutes Wilmar Gama MD Work Phone: [facility] Comment on above: Biliary colic (Prima ry Dx) Start: 09-13-2023 Telephone encounter Gurmeet Gama MD Work Phone: [facility] Start: 08-30-2023 End: 08-31-2023 Evaluation and management of inpatient [facility] Start: 08-24-2023 ambulatory [facility] Start: 08-23-2023 Telephone encounter Paola Temple CMA [facility] Start: 08-23-2023 ambulatory [facility] Start: 08-16-2023 Telephone encounter Alicja Beltre DO Work Phone: [facility] Start: 07-29-2023 ambulatory [facility] Facility:[facility] [place] Start: 07-26-2023 End: 07-27-2023 ambulatory [facility] Facility: [place] Start: 07-26-2023 End: 07-26-2023 Patient encounter procedure Alicja LINARES [facility] General Surgery [place] Start: 07-12-2023 ambulatory Rashard Montez Facility:[facility] [...] stick/tablet rgnt non-auto w/o micrscp Elvia Rajinder BROKER ASSISTANT Work Phone: Start: 03-20-2025 Urnls dip stick/tablet rgnt non-auto w/o micrscp Elvia Rajinder BROKER ASSISTANT Work Phone: Start: 02-25-2025 Urnls dip stick/tablet [...] cholecystectomy Status post laparoscopic cholecystectomy Viki Patel SENIOR ELECTRICAL DESIGN ENGINEER-GOVERNMENT DOCUMENTS LIBRARIAN Work Phone: Plan of Treatment Date Care Activity Detail Author Start: 03-25-2026 DTaP,Tdap and Td Vac cines (7 - Td or Tdap) DTaP,Tdap and Td Vaccines (7 - Td or Tdap) [facility] Start: 07-17-2025 End: 07-17-2025 ambulatory 07/17/2025 3:40 PM EST Visit [facility] [address] [place] [phone] Wolfgang Hoffman, DO [address] [place] [address] [facility] Start: 05-15-2025 End: 05-15-2025 Patient encounter procedure 05/15/2025 3:40 PM EDT Routine [facility] [address] [place] [phone] Elvia Calvillo, BROKER ASSISTANT [address] [place] [phone] [facility] Start: 04-29-2025 End: 04-29-2025 Patient encounter procedure 04/29/2025 3:20 PM EDT Routine [facility] [address] [place] [phone] Wolfgang Hoffman, DO [address] [place] [address] Arrived [facility] Comment on above: Arrived Start: 04-29-2025 End: 04-29-2026 CBC W Auto Differential panel - Blood CBC and differential Lab Routine Diabetes mellitus screening Expected: 04/29/2025 (Approximate), Expires: 04/29/2026 [facility] Work Phone: Comment on above: Expected: 04/29/2025 (Approximate), Expires: 04/29/2026 Start: 04-17-2025 End: 04-17-2025 Patient encounter procedure 04/17/2025 3:40 PM EDT Routine [facility] [address] [place] [phone] Wolfgang Hoffman, [address] [place], [place] [phone] [facility] Start: 04-08-2025 Influenza vaccination Influenza Vacc ine (#1) [facility] Start: 04-03-2025 End: 04-03-2025 Patient encounter procedure 04/03/2025 3:40 PM EDT Routine [facility] [address] [place] [phone] Wolfgang Hoffman, [address] [place], [place] [phone] [facility] Start: 03-20-2025 End: 03-20-2025 Patient encounter procedure 03/20/2025 3:40 PM EDT Routine [facility] [address] [place] [phone] Gogo Pang PA [address] [place], [place] [phone] Arrived [facility] Comment on above: Arrived Start: 03-20-2025 End: 03-20-2026 CBC panel - Blood by Automated count CBC Lab Routine Diabetes mellitus screening Expected: 03/20/2025 (Approximate), Expires: 03/20/2026 [facility] Work Phone: Comment on above: Expected: 03/20/2025 (Approximate), Expires: 03/20/2026 Start: 03-20-2025 End: 03-20-2026 Measurement of glucose 1 hour after glucose challenge for glucose tolerance test Glucose tolerance, 1 hour Lab Routine Diabetes mellitus screening Expected: 03/20/2025 (Approximate), Expires: 03/20/2026 [facility] Comment on above: Expected: 03/20/2025 (Approximate), Expires: 03/20/2026 Start: 02-25-2025 End: 02-25-2025 Patient encounter procedure 02/25/2025 3:40 PM EDT Routine [facility] [address] [place] [phone] Wolfgang Hoffman, DO [address] [place] [address] [facility] Start: 02-25-2025 End: 02-25-2025 Professional / ancillary services management 02/25/2025 2:30 PM EDT Ancillary Procedure [facility] [address] [place] [phone] [facility] Start: 01-29-2025 End: 07-31-2025 Alpha fetoprotein, maternal Alpha fetoprotein, maternal Lab Routine Second trimester ([facility]) 16 weeks gestation of ([facility]) Expected: 01/29/2025 (Approximate), Expires: 07/31/2025 [facility] Comment on above: Expected: 01/29/2025 (Approximate), Expires: 07/31/2025 Start: 01-29-2025 End: 05-01-2025 US for US OB 14+ weeks anatomy scan Imaging Routine Second trimester ([facility]) 16 weeks gestation of ([facility]) Screening, , for anatomic survey ([facility]) Expected: 01/29/2025, Expires: 05/01/2025 [facility] Comment on above: Expected: 01/29/2025 , Expires: 05/01/2025 Start: 01-29-2025 End: 01-29-2025 Patient encounter procedure [facility] Comment on above: Arrived Start: 01-08-2025 End: 01-08-2025 Patient encounter procedure 01/08/2025 2:10 PM EDT Routine [facility] [address] [place] [address] Wolfgang Hoffman, DO [address] [place] [address] [facility] Start: 01-01-2025 End: 01-01-2025 Patient encounter procedure 01/01/2025 1:40 PM EDT Routine [facility] [address] [place] [address] Wolfgang Hoffman, DO [address] [place] [address] Arrived [facility] Comment on above: Arrived Start: 12-06-2024 End: 12-06-2025 ABO/Rh ABO/Rh Lab Routine Missed menses , unspecified gestational age Expected: 12/06/2024 (Approximate), Expires: 12/06/2025 [facility] Comment on above: Expected: 12/06/2024 (Approximate), [...] [facility] [address] [place] [phone] [facility] Start: 12-06-2024 End: 12-06-2024 Professional / ancillary services management 12/06/2024 12:30 PM EDT Ancillary Procedure [facility] [address] [place] [address] [facility] Start: 11-30-2024 End: 03-01-2025 US Pelvis transvaginal US OB transvaginal Imaging Routine Missed menses Expected: 11/30/2024, Expires: 03/01/2025 [facility] Work Phone: Comment on above: Expected: 11/30/2024 , Expires: 03/01/2025 Start: 11-12-2024 End: 11-12-2024 Patient encounter procedure 11/12/2024 2:00 PM EDT Office Visit [facility] [address] [place] [phone] Wolfgang Hoffman, DO [facility] [place] [address] [facility] Start: 11-08-2024 End: 11-08-2024 Patient encounter procedure 11/08/2024 11:30 AM EDT Office Visit [facility] [address] [place] [phone] Wolfgang Hoffman, DO [address] [place], [place] [phone] Arrived [facility] Comment on above: Arrived Start: 10-17-2024 Adult BMI Screening Adult BMI Screen ing [facility] Start: 10-17-2024 Tobacco Screening Tobacco Screening [facility] Start: 10-03-2024 Adult BMI Screening Adult BMI Screen ing [facility] Start: 10-03-2024 Tobacco Screening Tobacco Screening [facility] Start: 09-28-2024 Adult BMI Screening Adult BMI Screen ing [facility] Start: 09-28-2024 Tobacco Screening Tobacco Screening [facility] Start: 09-27-2024 Tobacco Screening Tobacco Screening [facility] Start: 09-25-2024 End: 09-25-2024 Patient encounter procedure 09/25/2024 3:00 PM EST Office Visit [facility] [address] [place] [address] Wolfgang Hoffman DO [address] [place] [address] Arrived [facility] Comment on above: Arrived Start: 09-25-2024 End: 09-25-2025 DHEA DHEA Lab Routine PCOS (polycystic ovarian syndrome) Expected: 09/25/2024 (Approximate), Expires: 09/25/2025 [facility] Comment on above: Expected: 09/25/2024 (Approximate), Expires: 09/25/2025 Start: 09-25-2024 End: 09-25-2025 US Pelvis US Pelvis w/ TV Imaging Routine PCOS (polycystic ovarian syndrome) Expected: 09/25/2024, Expires: 09/25/2025 [facility] Comment on above: Expected: 09/25/2024 , Expires: 09/25/2025 Start: 10-18-2023 End: 10-18-2023 Patient encounter procedure 10/18/2023 10:00 AM EDT Office Visit [facility] General Surgery [address] [place] [address] Viki Patel, SENIOR ELECTRICAL DESIGN ENGINEER-GOVERNMENT DOCUMENTS LIBRARIAN [address] [facility] [address] [facility] General Surgery Start: 10-03-2023 End: 10-03-2023 Admission to same day surgery center 10/03/2023 11:00 AM EST - 10/03/2023 12:55 PM EST Surgery [facility] - Surgery [address] [place] [phone] Wilmar Gama MD [address] [place] [phone] DAVINCI CHOLECYSTECTOMY [[id number] (CPT )] [facility] Comment on above: DAVINCI CHOLECYSTECT NATI [[id number] (CPT )] Start: 10-03-2023 End: 10-03-2023 Laparoscopy surg cholecystectomy DAVINCI CHOLECYSTECTOMY biliary colic 10/03/2023 11:00 AM EST [facility] Start: 10-03-2023 Subsequent hospital visit by physician 10/03/2023 11:00 AM EST Hospital Encounter [facility] Surgery [address] [place] [address] Wilmar Gama MD [address] [place] [phone] [facility] Start: 09-27-2023 End: 09-27-2023 Patient encounter procedure 09/27/2023 11:00 AM EST Office Visit [facility] [address] [place] [address] Wilmar Gama MD [address] [place] [phone] [facility] Start: 08-23-2023 End: 08-23-2023 Patient encounter procedure 08/23/2023 10:45 AM EST Office Visit [facility] [address] [place] [place] [phone] Wilmar Gama MD [address] [place] [phone] [facility] Start: 04-08-2023 Influenza vaccination Influenza Vacc ine [facility] Start: 04-03-2022 Adult BMI Screening Adult BMI Screen ing [facility] Start: 2015 Depression Screening Depression Scre ening [facility] Start: 2015 Tobacco Screening Tobacco Screening [facility] Start: 2003 Tobacco Counseling Tobacco Counselin g [facility] Bacteria identified in Urine by Culture Urine culture Microbiology Routine Missed menses Ordered: 12/06/2024 [facility] Comment on above: Ordered: 12/06/2024 Bacteria identified in Urine by Culture Urine culture Microbiology Routine Urinary tract infection without hematuria, site unspecified Ordered: 03/20/2025 [facility] Comment on above: Ordered: 03/20/2025 CBC W Auto Different ial panel - Blood CBC and differential Lab Routine PCOS (polycystic ovarian syndrome) Ordered: 09/25/2024 [facility] Comment on above: Ordered: 09/25/2024 CBC W Auto Different ial panel - Blood CBC and differential Lab Routine Missed menses , unspecified gestational age Ordered: 12/06/2024 [facility] Comment on above: Ordered: 12/06/2024 CHLAMYDIA TRACHOMATI S (GENITO/STI) CHLAMYDIA TRACHOMATIS (GENITO/STI) Lab Routine STD exposure Ordered: 01/29/2025 [facility] Comment on above: Ordered: 01/29/2025 CHLAMYDIA TRACHOMATI S (GENITO/STI) CHLAMYDIA TRACHOMATIS (GENITO/STI) Lab Routine Yeast infection BV (bacterial vaginosis) Ordered: 03/20/2025 [facility] Comment on above: Ordered: 03/20/2025 Cytology Cervical or vaginal smear or scraping study Pap Smear Pathology and Cytology Routine Well woman exam with routine gynecological exam Ordered: 01/29/2025 [facility] Work Phone: Comment on above: Ordered: 01/29/2025 DHEA-sulfate DHEA-sulfate Lab Routine PCOS (polycystic ovarian syndrome) Ordered: 09/25/2024 [facility] Comment on above: Ordered: 09/25/2024 Follicle stimulating hormone Follicle stimulating hormone Lab Routine PCOS (polycystic ovarian syndrome) Ordered: 09/25/2024 [facility] [facility] Comment on above: Ordered: 09/25/2024 hCG, quantitative, hCG, quantitative, Lab Routine PCOS (polycystic ovarian syndrome) Ordered: 09/25/2024 [facility] Work Phone: Comment on above: Ordered: 09/25/2024 Hemoglobin A1c/Hemoglobin.total in Blood Hemoglobin A1c Lab Routine PCOS (polycystic ovarian syndrome) Ordered: 09/25/2024 [facility] Comment on above: Ordered: 09/25/2024 Hemoglobin A1c/Hemoglobin.total in Blood Hemoglobin A1c Lab Routine Missed menses , unspecified gestational age Ordered: 12/06/2024 [facility] Comment on above: Ordered: 12/06/2024 Hemoglobin A1c/Hemoglobin.total in Blood Hemoglobin A1c Lab Routine Third trimester ([facility]) 28 weeks gestation of ([facility]) Ordered: 04/17/2025 [facility] Work Phone: Comment on above: Ordered: 04/17/2025 Hepatitis B virus stearns rface Ag [Presence] in Serum or Plasma by Immunoassay Hepatitis B surface antigen Lab Routine Missed menses , unspecified gestational age Ordered: 12/06/2024 [facility] Comment on above: Ordered: 12/06/2024 Hepatitis C virus Ab [Presence] in Serum or Plasma by Immunoassay Hepatitis C antibody Lab Routine Missed menses , unspecified gestational age Ordered: 12/06/2024 [facility] Comment on above: Ordered: 12/06/2024 HIV-1/HIV-2 antigen/antibody combination immunoassay HIV-1 and HIV-2 antibodies Lab Routine Missed menses , unspecified gestational age Ordered: 12/06/2024 [facility] Comment on above: Ordered: 12/06/2024 Luteinizing hormone Luteinizing hormone Lab Routine PCOS (polycystic ovarian syndrome) Ordered: 09/25/2024 [facility] Comment on above: Ordered: 09/25/2024 Neisseria gonorrhoea e DNA [Presence] in Unspecified specimen by ISAAC with probe detection Neisseria gonorrhea DNA probe, direct Lab Routine STD exposure Ordered: 01/29/2025 [facility] Comment on above: Ordered: 01/29/2025 Neisseria gonorrhoea e DNA [Presence] in Unspecified specimen by ISAAC with probe detection Neisseria gonorrhea DNA probe, direct Lab Routine Yeast infection BV (bacterial vaginosis) Ordered: 03/20/2025 [facility] Comment on above: Ordered: 03/20/2025 Reagin Ab [Presence] in Serum by RPR RPR Lab Routine Missed menses , unspecified gestational age Ordered: 12/06/2024 [facility] Comment on above: Ordered: 12/06/2024 Rubella antibody, IgG Rubella an tibody, IgG Lab Routine Missed menses , unspecified gestational age Ordered: 12/06/2024 [facility] Comment on above: Ordered: 12/06/2024 SURESWAB(R) ADVANCED VAGINITIS PLUS, TMA SURESWAB(R) ADVANCED VAGINITIS PLUS, TMA Pathology and Cytology Routine Vaginal discharge Ordered: 01/29/2025 [facility] Comment on above: Ordered: 01/29/2025 SURESWAB(R) ADVANCED VAGINITIS PLUS, TMA SURESWAB(R) ADVANCED VAGINITIS PLUS, TMA Pathology and Cytology Routine Yeast infection BV (bacterial vaginosis) Ordered: 03/20/2025 [facility] Comment on above: Ordered: 03/20/2025 Thyrotropin [Units/volume] in Serum or Plasma TSH Lab Routine PCOS (polycystic ovarian syndrome) Ordered: 09/25/2024 [facility] Work Phone: Comment on above: Ordered: 09/25/2024 Thyroxine (T4) free [Mass/volume] in Serum or Plasma T4, free Lab Routine PCOS (polycystic ovarian syndrome) Ordered: 09/25/2024 [facility] Comment on above: Ordered: 09/25/2024 End: 09-26-2024 Unlisted Procedure / Surgery Unlisted Procedure / Surgery Procedures Routine Biliary colic 1 Occurrences starting 09/27/2023 until 09/26/2024 [employer] Work Phone: Comment on above: 1 Occurrences starti ng 09/27/2023 until 09/26/2024 US Pelvis transvaginal US OB tra nsvaginal Imaging Routine Missed menses 12/06/2024 12:56 PM EDT [facility] Immunizations Immunization Date Immunization Notes Care Provider Emma lora 06-23-2021 influenza virus vaccine, unspecified formulation Paola [facility] [employer] [facility] 06-22-2016 influenza virus vaccine, unspecified formulation Alicja Beltre DO Work Phone: [facility] Payers Date Payer Category Payer Self-pay 2024 Private Health Insurance [employer] [id number] 2024 Unknown [id number] 2023 Medicaid (Managed Care) [employer] [id number] 2018 Medicaid [employer] [id number] 2018-Present [phone] [address] [place] [id number] 2003 Unknown [id number] 2.16.840.1.201598.3.579.2. 593 2003 Unknown [id number] 2.16.840.1.841995.3.579.2. 593 2003 Unknown [id number] 2.16.840.1.673844.3.579.2. 593 2003 Unknown [id number] 2.16.840.1.837693.3.579.2. 593 2003 Unknown [id number] 2.16.840.1.899552.3.579.2. 593 2003 Unknown [id number] 2.16.840.1.452417.3.579.2. 593 2003 Unknown [id number] 2.16.840.1.349116.3.579.2. 593 2003 Unknown [id number] 2.16.840.1.640116.3.579.2. 593 2003 Unknown [id number] 2.16.840.1.611206.3.579.2. 593 2003 Unknown [id number] 2.16.840.1.110712.3.579.2. 593 2003 Unknown [id number] 2.16.840.1.160861.3.579.2. 593 2003 Unknown [id number] 2.16.840.1.357963.3.579.2. 593 2003 Unknown [id number] 2.16.840.1.621816.3.579.2. 593 2003 Unknown [id number] 2.16.840.1.159671.3.579.2. 593 2003 Unknown [id number] 2.16.840.1.904497.3.579.2. 593 2003 Unknown [id number] 2.16.840.1.498342.3.579.2. 593 2003 Unknown [id number] 2.16.840.1.324572.3.579.2. 593 2003 Unknown [id number] 2.16.840.1.578433.3.579.2. 593 2003 Unknown [id number] 2.16.840.1.421792.3.579.2. 593 2003 Unknown [id number] 2.16.840.1.066638.3.579.2. 593 2003 Unknown [id number] 2.16.840.1.410930.3.579.2. 593 2003 Unknown [id number] 2.16.840.1.842027.3.579.2. 593 2003 Unknown [id number] 2.16.840.1.068555.3.579.2. 593 2003 Unknown [id number] 2.16.840.1.669318.3.579.2. 593 2003 Unknown [id number] 2.16.840.1.187987.3.579.2. 593 2003 Unknown [id number] 2.16.840.1.055331.3.579.2. 593 2003 Unknown [id number] 2.16.840.1.380202.3.579.2. 593 2003 Unknown [id number] 2.16.840.1.578232.3.579.2. 727 2003 Unknown [id number] 2.16.840.1.394010.3.579.2. 727 2003 Unknown [id number] 2.16.840.1.599682.3.579.2. 1286 2003 Unknown [id number] 2.16.840.1.162303.3.579.2. 1286 2003 Unknown [id number] 2.16.840.1.090602.3.579.2. 1286 2003 Unknown [id number] 2.16.840.1.272437.3.579.2. 1286 2003 Unknown [id number] 2.16.840.1.132429.3.579.2. 1286 2003 Unknown [id number] 2.16.840.1.586182.3.579.2. 1286 2003 Unknown [id number] 2.16.840.1.794329.3.579.2. 1286 2003 Unknown [id number] 2.16.840.1.419557.3.579.2. 1286 2003 Unknown [id number] 2.16.840.1.905932.3.579.2. 1286 2003 Unknown [id number] 2.16.840.1.746589.3.579.2. 1286 2003 Unknown [id number] 2.16.840.1.507654.3.579.2. 128 2003 Unknown [id number] 2.840.1.784087.3.579.2. 128 2003 Unknown [id number] 2.16840.1.163691.3.579.2. 128 2003 Unknown [id number] 2840.1.695581.3.579.2. 1259 2003 Unknown [id number] 2.840.1.196854.3.579.2. 1259 2003 Unknown [id number] 2.840.1.793556.3.579.2. 1259 2003 Unknown [id number] 2.16840.1.973528.3.579.2. 1259 2003 Unknown [id number] 2.16840.1.073778.3.579.2. 1259 2003 Unknown [id number] 2.16840.1.065658.3.579.2. 1259 2003 Unknown [id number] 2.16.840.1.766353.3.579.2. 1259 2003 Unknown [id number] 2.16.840.1.787259.3.579.2. 1259 2003 Unknown [id number] 216.840.1.757636.3.579.2. 1259 2003 Unknown [id number] 2.16.840.1.764572.3.579.2. 1259 2003 Unknown [id number] 2.16.840.1.577502.3.579.2. 1259 2003 Unknown [id number] 2.16.840.1.212531.3.579.2. 1259 1976 Unknown [id number] 2.16.840.1.552800.3.579.2. 727 1959 Unknown [id number] Unknown [id number] 2.16.840.1.325421.3.579.2. 175 Unknown [id number] 2.16.840.1.543694.3.579.2. 531 Social History Date Type Detail Facility Tobacco smoking status [facility] [place] Start: 04-03-2021 End: 04-15-2025 Sex Assigned At Female [facility] Start: 04-03-2021 End: 10-18-2023 Tobacco smoking status NJIS Occasional tobacco smoker [facility] Start: 04-03-2021 End: 10-18-2023 Tobacco use and exposure Smokeless tobacco non-user [facility] Start: 04-03-2021 End: 10-18-2023 Alcohol intake Lifetime non-drinker (finding) [facility] Start: 04-03-2021 End: 04-15-2025 History of Social function [facility] Housing Instability Unknown [facility] Start: 2003 Sex Assigned At Not on file [facility] Start: 09-28-2023 Tobacco Comment Will smoke a c igarette if does not have a vape [facility] History of tobacco use Cigarette Smoker [facility] Tobacco smoking stat us [facility] Tobacco smoking consumption unknown [facility] Start: [...] Ambulatory Problems Diagnosis Date Noted Third trimester ([facility]) 12/27/2022 ADHD (attention deficit hyperactivity disorder) [...] nursing note reviewed. Exam conducted with a orchestrator present. Vitals: Estimated body mass index is [...] Hoffman DO documented in this encounter [facility] 04-17-2025 History of Present illness [...] Ambulatory Problems Diagnosis Date Noted Third trimester ([facility]) 12/27/2022 ADHD (attention deficit hyperactivity disorder) [...] nursing note reviewed. Exam conducted with a orchestrator present. Vitals: Estimated body mass index is 24.45 kg/m as calculated from the following: Height as of 12/21/22: 5' 6 . Weight as of this encounter: 151 lb 8 oz. BP: 120/70 No LMP recorded. Patient is . ASSESSMENT & PLAN ICD-10-CM 1. Third trimester ([facility]) Z34.93 POCT urinalysis dipstick manually resulted Hemoglobin A1c 2. 28 weeks gestation of ([facility]) Z3A.28 Hemoglobin A1c Return OB: Patient presents [...] Elvia Calvillo NP documented in this encounter [facility] 04-03-2025 History of Present illness [...] Ambulatory Problems Diagnosis Date Noted Third trimester ([facility]) 12/27/2022 ADHD (attention deficit hyperactivity [...] nursing note reviewed. Exam conducted with a orchestrator present. Vitals: Estimated body mass index is 23.53 kg/m as calculated from the following: Height as of 12/21/22: 5' 6 . Weight as of this encounter: 145 lb 12.8 oz. BP: 100/60 No LMP recorded. Patient is . ASSESSMENT & PLAN ICD-10-CM 1. Second trimester ([facility]) Z34.92 2. 26 weeks gestation of ([facility]) Z3A.26 3. History of psychogenic nonepileptic seizure [...] Hoffman DO documented in this encounter [facility] 03-20-2025 History of Present illness Narrative 14 Reason for Appointment: Patient ID: Kemi Piper is a 19 y.o. female who presents for Routine Visit Patient presents today for Return OB appointment. MEDICATIONS Current Outpatient Medications Medication Instructions 28-0.8 MG tablet 1 tablet, Daily ALLERGIES No Known Allergies PROBLEMS Active Ambulatory Problems Diagnosis Date Noted Third trimester ([facility]) 12/27/2022 ADHD (attention deficit hyperactivity [...] nursing note reviewed. Exam conducted with a orchestrator present. Vitals: Estimated body mass index is 23.69 kg/m as calculated from the following: Height as of 12/21/22: 5' 6 . Weight as of 02/25/25: 146 lb 12.8 oz. BP: No LMP recorded. Patient is . ASSESSMENT & PLAN ICD-10-CM 1. Second trimester ([facility]) Z34.92 POCT urinalysis dipstick manually resulted 2. 24 weeks gestation of ([facility]) Z3A.24 3. Diabetes mellitus screening Z13.1 CBC [...] Elvia Calvillo NP documented in this encounter [facility] 02-25-2025 History of Present illness Narrative Reason for Appointment: Patient ID: Kemi Piper is a 19 y.o. female who presents for Routine Visit Patient presents today for Return OB appointment. MEDICATIONS Current Outpatient Medications Medication Instructions 28-0.8 MG tablet 1 tablet, Daily ALLERGIES No Known Allergies PROBLEMS Active Ambulatory Problems Diagnosis Date Noted Third trimester ([facility]) 12/27/2022 ADHD (attention deficit hyperactivity disorder) [...] ASSESSMENT & PLAN ICD-10-CM 1. Second trimester ([facility]) Z34.92 POCT urinalysis dipstick manually resulted 2. 20 weeks gestation of ([facility]) Z3A.20 POCT urinalysis dipstick manually resulted Return [...] Hoffman DO documented in this encounter [facility] 01-29-2025 History of Present illness [...] Ambulatory Problems Diagnosis Date Noted Third trimester ([facility]) 12/27/2022 ADHD (attention deficit hyperactivity disorder) [...] nursing note reviewed. Exam conducted with a orchestrator present. Vitals: Estimated body mass index is 21.95 kg/m as calculated from the following: Height as of 12/21/22: 5' 6 . Weight as of 01/01/25: 136 lb. BP: No LMP recorded. Patient is . ASSESSMENT & PLAN ICD-10-CM 1. Well woman exam with routine gynecological exam Z01.419 Pap Smear 2. Second trimester ([facility]) Z34.92 Alpha fetoprotein, maternal Alpha fetoprotein, maternal US OB 14+ weeks anatomy scan 3. 16 weeks gestation of ([facility]) Z3A.16 Alpha fetoprotein, maternal Alpha fetoprotein, maternal US OB 14+ weeks anatomy scan 4. Vaginal discharge N89.8 SURESWAB(R) ADVANCED VAGINITIS PLUS, TMA 5. STD exposure Z20.2 CHLAMYDIA TRACHOMATIS (GENITO/STI) Neisseria gonorrhea DNA probe, direct 6. Screening, , for anatomic survey ([facility]) Z36.89 US OB 14+ weeks anatomy [...] of: MICHELLE Forrest documented in this encounter [facility] 01-01-2025 History of Present illness Narrative Reason for Appointment: Patient ID: Kemi Piper is a 19 y.o. female who presents for Routine Visit Patient presents today for Return OB appointment. MEDICATIONS Current Outpatient Medications Medication Instructions 28-0.8 MG tablet 1 tablet, Daily ALLERGIES No Known Allergies PROBLEMS Active Ambulatory Problems Diagnosis Date Noted Third trimester 12/27/2022 ADHD (attention deficit hyperactivity disorder) ([facility]) 01/11/2012 Deterioration in school performance 01/21/2015 Migraines ([facility]) 11/28/2020 Nocturnal enuresis 12/12/2012 Psychogenic [...] nursing note reviewed. Exam conducted with a orchestrator present. Vitals: Estimated body mass index is [...] or undercooked meat, and stay away from [facility]. Patient has been consulted regarding any [...] Hoffman DO documented in this encounter [facility] 12-06-2024 History of Present illness [...] trimester 12/27/2022 ADHD (attention deficit hyperactivity disorder) ([facility]) 01/11/2012 Deterioration in school performance 01/21/2015 Migraines ([facility]) 11/28/2020 Nocturnal enuresis 12/12/2012 Psychogenic [...] or undercooked meat, and stay away from [facility]. Patient has also been advised to not change litter boxes and eat 6 small meals a day. Patient has been consulted regarding the do's and don'ts of . Patient was given labs and all questions and concerns were answered. Patient was given [place] to have completed with Initial labs. Follow Up: Patient is to return in 4 weeks for routine OB appointment. Follow Up: Patient is to have labs drawn at directed and return to office for initial OB appointment with provider. Patient may call office as needed with any concerns or questions. Nurse Visit Completed by: Pat Skelton LPN documented in this encounter [facility] 11-08-2024 History of Present illness [...] trimester 12/27/2022 ADHD (attention deficit hyperactivity disorder) ([facility]) 01/11/2012 Deterioration in school performance [...] nursing note reviewed. Exam conducted with a orchestrator present. Vitals: Estimated body mass index is [...] Hoffman DO documented in this encounter [facility] 09-25-2024 History of Present illness [...] trimester 12/27/2022 ADHD (attention deficit hyperactivity disorder) ([facility]) 01/11/2012 Deterioration in school performance 01/21/2015 Migraines ([facility]) 11/28/2020 Nocturnal enuresis 12/12/2012 Psychogenic nonepileptic seizure ([facility]) 11/29/2020 Resolved Ambulatory Problems Diagnosis [...] Hoffman DO documented in this encounter [facility] 11-03-2023 Miscellaneous Notes We received a letter from [facility] stating that the procedure on 09/27/23 was not covered. The Cholecystectomy was ordered by Dr Gama on 09/27/23, the actual surgery wasn't performed until 10/03/23. I scanned the letter into her chart & spoke to Trinity, at the [employer] Main line. She could see the letter & she will get it to the [place] specialist. documented in this encounter [facility] 11-03-2023 Telephone encounter Note We received a letter from [facility] stating that the procedure on 09/27/23 was not covered. The Cholecystectomy was ordered by Dr Gama on 09/27/23, the actual surgery wasn't performed until 10/03/23. I scanned the letter into her chart & spoke to Trinity, at the [employer] Main line. She could see the letter & she will get it to the [place] specialist. [facility] 10-18-2023 History of Present illness [...] Status post laparoscopic cholecystectomy [Z90.49] GERMAN DEAN [facility] General Surgery [facility] This note was created with the assistance of a speech recognition program. While intending to generate a timely document that accurately reflects the content of the visit, no guarantee can be provided that every grammatical or spelling mistake has been or will be identified or corrected. Thank you for your understanding. GERMAN Dean 10/18/23 1014 documented in this encounter [facility] 09-28-2023 Note XR CHEST 2 VWS Procedure: Chest x-ray performed Number of views:2 History:Preop asthma Comparison:None Findings: The heart and lungs show no acute findings, and the mediastinum and manasa are grossly negative . Impression: 1. No acute change. Finalized by Umesh Bolaños MD on 09/28/2023 10:05 AM [facility] 09-28-2023 Note Procedure: Chest x-ray performed Number of views:2 History:Preop asthma Comparison:None Findings: The heart and lungs show no acute findings, and the mediastinum and manasa are grossly negative . Impression: 1. No acute change. Finalized by Umesh Bolaños MD on 09/28/2023 10:05 AM [facility] 09-28-2023 Instructions Noemí Arnett RN - 09/28/2023 9:00 AM EST Preoperative Education Checklist- General Surgery date: 10/03/23 Surgery time: 1100 a.m. Arrival time: 0900 a.m. 1. Bring a photo ID and your insurance card with you the day of surgery. You will check in at the main lobby of the [facility]- registration desk is straight ahead as soon as you walk in. Tell them you are here for surgery. 2. If you have a Living Will/Durable Power of Physician/Allergy/Immunology for Health Care that is not on [...] after you have bathed. 5. NO nail guatemalan/acrylic on at least one finger. If you are having a hand, wrist or foot surgery then all nail guatemalan and artificial/acrylic nails must be removed from [...] please call the Preadmission Testing office at [phone], Mon.-Fri. 7 a.m.-3 p.m. Leave a voicemail [...] with your doctor. documented in this encounter [facility] [employer] [facility] 09-28-2023 Miscellaneous Notes Preoperative Education Checklist- General Surgery date: 10/03/23 Surgery time: 1100 a.m. Arrival time: 0900 a.m. 1. Bring a photo ID and your insurance card with you the day of surgery. You will check in at the main lobby of the [facility]- registration desk is straight ahead as soon as you walk in. Tell them you are here for surgery. 2. If you have a Living Will/Durable Power of Physician/Allergy/Immunology for Health Care that is not on [...] after you have bathed. 5. NO nail guatemalan/acrylic on at least one finger. If you are having a hand, wrist or foot surgery then all nail guatemalan and artificial/acrylic nails must be removed from [...] please call the Preadmission Testing office at [phone], Mon.-Fri. 7 a.m.-3 p.m. Leave a voicemail [...] Patient verbalized understanding. [facility] Nurse Note Preoperative Education Checklist- General Surgery date: 10/03/23 Surgery time: 1100 a.m. Arrival time: 0900 a.m. 1. Bring a photo ID and your insurance card with you the day of surgery. You will check in at the main lobby of the [facility]- registration desk is straight ahead as soon as you walk in. Tell them you are here for surgery. 2. If you have a Living Will/Durable Power of Physician/Allergy/Immunology for Health Care that is not on [...] after you have bathed. 5. NO nail guatemalan/acrylic on at least one finger. If you are having a hand, wrist or foot surgery then all nail guatemalan and artificial/acrylic nails must be removed from [...] please call the Preadmission Testing office at [phone], Mon.-Fri. 7 a.m.-3 p.m. Leave a voicemail [...] to the follow-up appointment with your doctor. [facility] 09-28-2023 Nurse Note Hibiclens and surgical instructions reviewed. Patient verbalized understanding. [facility] [employer] [facility] 09-27-2023 History of Present illness Narrative [...] patient/family/caregiver Referring and communicating with other health critical care unit manager Wilmar Gama MD [facility] General Surgery [place] documented in this encounter [facility] 09-13-2023 Miscellaneous Notes Patient no called no showed for appointment with Dr. Gama. I called Kemi to see if we could reschedule this appointment. Left message on voicemail to call the office back as I was unable to make contact. documented in this encounter [facility] 09-13-2023 Telephone encounter Note Patient no called no showed for appointment with Dr. Gama. I called Kemi to see if we could reschedule this appointment. Left message on voicemail to call the office back as I was unable to make contact. [facility] 08-23-2023 Miscellaneous Notes Left message for patient to call back to reschedule appointment. documented in this encounter [facility] 08-23-2023 Telephone encounter Note Left message for patient to call back to reschedule appointment. [facility] 08-16-2023 Miscellaneous Notes Called patient in regard to gallstone referral from Dr. Montez's office. Left message on voicemail to call the office back to schedule appointment. Sandeep called the office back and scheduled an appointment with Dr. Gama for 08-23-23. documented in this encounter [facility] 08-16-2023 Telephone encounter Note Called patient in regard to gallstone referral from Dr. Montez's office. Left message on voicemail to call the office back to schedule appointment. [facility] 08-16-2023 Telephone encounter Note Sandeep called the office back and scheduled an appointment with Dr. Gama for 08-23-23. [facility] 11-29-2020 Note Discharge/Transfer S porsha Name: Kemi Piper MR#: [id number] : 2005 Room #: 6221/01 Age/Sex: 15 y.o. female Admit Date: 11/28/2020 Admitting: Reggie Conner MD Discharge Date: 11/29/2020 Discharged from: [facility] Attending: Dr. Reggie Conner MD Final Diagnosis: [...] with vision loss. She was seen at [facility] Emergency department and observed with normal [...] opinion and she was admitted directly to [facility] Neurology. On the floor, patient complained [...] Future Labs/Procedures Ex (more content not included)... [facility] 11-28-2020 Note MEDICAL ADMISSION HI STORY AND PHYSICAL Date of Service: 11/28/2020 Attending Provider: Priya Lockwood MD Primary Care Provider: Rashard Montez MD Chief Complaint: Seizure Like activity Reason [...] of seizure like episodes since Jul. 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 They do note she [...] mom identifies as Dr. Jesús Choe in [place]. They have an upcoming appointment on 12/02. Of note, she was recently seen at [facility] on 11/15, where lab work included [...] injuries: did recently hit her head 4d STRING TOP SEALER (sister was getting this day and she [...] changes: Has bee (more content not included)... [facility] Evaluation + Plan note No data available for this section [facility] [place] Evaluation note Diagnosis Biliary colic- Primary Calculus of gallbladder without mention of cholecystitis or obstruction documented in this encounter [facility] Preop examination- Primary [...] Other postprocedural status [facility] in this [facility] Diagnosis PCOS (polycystic ovarian syndrome)- [...] STD exposure Screening, , for anatomic survey ([facility]) Encounter for anatomic survey documented [...] instructions No data available for this section [facility] [place] InstructionsNot on filedocumented in this encounter [facility] filedocumented in this encounter [facility]ructions[facility] on filedocumented in this encounter [facility]ructionsNot on filedocumented in this encounter [facility] No data available for this section [facility] [place] Summary Purpose Family History No Family History [...] ECG 12 lead Yo Berman MD [address] [place] [address] Referral ID Status Reason Start Date Expiration Date V isits Requested Visits Authorized [id number] Pending Review 09/28/2023 09/27/2024 1 1 Specialty Diagnoses / Procedures Referred By Contac t Referred To Contact Diagnoses Biliary colic Procedures Unlisted Procedure / Surgery Wilmar Gama MD [address] [place] [address] Referral ID Status Reason Start Date Expiration Date V isits Requested Visits Authorized [id number] Pending Review 09/27/2023 09/26/2024 1 1 Additional Source Comments INFORMATION SOURCE (unrecogn ized section and content) DATE CREATED AUTHOR 11/30/2020 [facility] DATE CREATED AUTHOR AUTHOR'S ORGANIZ ATION 01/14/2023 [facility] DATE CREATED AUTHOR AUTHOR'S ORGANIZ ATION 07/27/2023 [facility] DATE CREATED AUTHOR AUTHOR'S ORGANIZ ATION 09/12/2023 [facility] DATE CREATED AUTHOR AUTHOR'S ORGANIZ ATION 10/08/2023 [facility] DATE CREATED AUTHOR AUTHOR'S ORGANIZ ATION 10/19/2023 [facility] DATE CREATED AUTHOR AUTHOR'S ORGANIZ ATION 03/17/2025 [facility] DATE CREATED AUTHOR AUTHOR'S ORGANIZ ATION 04/30/2025 [facility] EPIC Patient Care team informatio n (unrecognized section and content) Rn Admit Relationship Specialty Start Date End Date Rashard Montez MD [address] [place] [address] PCP - General Family Medicine 03/25/21 Rn Admit Relationship Specialty Start Date End Date Rashard Montez MD [address] [phone] PCP - General Family Medicine 03/25/21 Rn Admit Relationship Specialty Start Date End Date Rashard Montez MD [address] [place] [address] PCP - General Family Medicine 03/25/21 Rn Admit Relationship Specialty Start Date End Date Rashard Montez MD [address] [place] [address] PCP - General Family Medicine 03/25/21 Rn Admit Relationship Specialty Start Date End Date Rashard Montez MD [address] [place] [address] PCP - General Family Medicine 03/25/21 Rn Admit Relationship Specialty Start Date End Date Rashard Montez MD [address] [place] [facility] [place] [address] PCP - General Family Medicine 03/25/21 Rn Admit Relationship Specialty Start Date End Date Rashard Montez MD [address] [place] [facility] [place] [address] PCP - General Family Medicine 02/16/23 Rn Admit Relationship Specialty Start Date End Date Rashard Montez MD [address] [place] [facility] [place] [address] PCP - General Family Medicine 02/16/23 Rn Admit Relationship Specialty Start Date End Date Rashard Montez MD [address] [place] [facility] [place] [address] PCP - General Family Medicine 02/16/23 Rn Admit Relationship Specialty Start Date End Date Rashard Montez MD [address] [place] [facility] [place] [address] PCP - General Family Medicine 02/16/23 Rn Admit Relationship Specialty Start Date End Date Rashard Montez MD [address] [place] [facility] [place] [address] PCP - General Family Medicine 02/16/23 Rn Admit Relationship Specialty Start Date End Date Rashard Montez MD [address] [place] [facility] [place] [address] PCP - General Family Medicine 02/16/23 Rn Admit Relationship Specialty Start Date End Date Rashard Montez MD [address] [place] [facility] [place] [address] PCP - General Family Medicine 02/16/23 Rn Admit Relationship Specialty Start Date End Date Rashard Montez MD PCP - General Family Medicine 02/16/23 Rn Admit Relationship Specialty Start Date End Date Rashard Montez MD [address] [place] [facility] [place] [address] PCP - General Family Medicine 02/16/23 Rn Admit Relationship Specialty Start Date End Date Rashard Montez MD [address] [place] [address] PCP - General Family Medicine 02/16/23 Rn Admit Relationship Specialty Start Date End Date Rashard Montez MD [address] [place] [facility] [place] [address] PCP - General Family Medicine 02/16/23 Rn Admit Relationship Specialty Start Date End Date Rashard Montez MD [address] [place] [address] PCP - General Family Medicine 02/16/23 Rn Admit Relationship Specialty Start Date End Date Rashard Montez MD [address] [place] [facility] [place] [address] PCP - General Family Medicine 02/16/23 Rn Admit Relationship Specialty Start Date End Date Rashard Montez MD [address] [place] [facility] [place] [address] PCP - General Family Medicine 02/16/23 Rn Admit Relationship Specialty Start Date End Date Rashard Montez MD [address] [place] [facility] [place] [address] PCP - General Family Medicine 02/16/23 Rn Admit Relationship Specialty Start Date End Date Rashard Montez MD [address] [place] [facility] [address] PCP - General [facility] Medicine 02/16/23 Rn Admit Relationship Specialty Start Date End Date Rashard Montez MD [address] [place] [facility] [address] PCP - General [facility] Medicine 02/16/23 Rn Admit Relationship Specialty Start Date End Date Rashard Montez MD [address] [place] [facility] [place] [address] PCP - General Family Medicine 02/16/23 Reason [...] BE BASED ON THE PRIMARY CLINICAL RECORDS. [employer] [facility]. provides no warranty or guarantee of the accuracy or completeness of information in this document.
== END 2025-04-30 14:37 | disposition home or self-care (01) ==
LOC: LAB 14:37
PROVIDERS: PCP Family Medicine; Visit Provider Nurse Practitioner Family
DX: Z34.93 Encounter for supervision of normal pregnancy, unspecified, third trimester (principal); Z13.1 Encounter for screening for diabetes mellitus
CPT/HCPCS: 36415; 83036; 85025

== ENCOUNTER 2025-05-31 16:45 | Outpatient (OUT) | payer OTHER, SELFPAY ==
--- OUTSIDE RECORDS SUMMARY | 2025-05-27 15:50 | XMS_ITS | Encounter Summary ---
Author Organization [facility] Address [address] [place] [address] Care Team Providers Care Bilingual Student Tutor Name Role Phone Jose E Burns MD Primary Care Provider [phone] Reason for Visit * ReasonCommentsRoutine Visit Encounter Details DateTypeDepartmentCare Team (Latest Contact Info)Atbrpoudhas59/20/2025 3:50 PM EDTRoutine [facility] [address] [place] [address] Wolfgang Hoffman DO [address] [place], [facility] size inconsistent with dates ([facility]) (Primary Dx); 33 weeks gestation of ([facility]); Third trimester ([facility]); Psychogenic nonepileptic seizure Social History Tobacco UseTypesPacks/DayYears UsedDateSmoking Tobacco: Never AssessedPHQ-2 AnswerDate RecordedPatient Health Questionnaire-2 Xcklj989 Estimated Date of SunioruxChrdxitvFht71/03/2025Based on Ultrasound, FHR-158Sex and Gender InformationValueDate RecordedSex Assigned at BirthNot on fileLegal QcoQfatuz90/15/2023 6:34 PM EDTGender IdentityNot on fileSexual OrientationNot on filedocumented as of this encounter Last Filed Vital Signs Vital SignReadingTime TakenCommentsBlood Nitqajxy199/8010 4:15 PM EDT Pulse--Temperature--Respiratory Rate--Oxygen Saturation--Inhaled Oxygen Concentration--Ujvqpg90.8 kg (160 lb 6.4 oz)05/27/2025 4:15 PM [...] Ambulatory Problems Diagnosis Date Noted Third trimester ([facility]) 12/27/2022 ADHD (attention deficit hyperactivity disorder) 01/11/2012 [...] nursing note reviewed. Exam conducted with a formula mixer present. Vitals: Estimated body mass index is 25.89 kg/m?? as calculated from the following: Height as of 12/21/22: 5' 6 . Weight as of this encounter: 160 lb 6.4 oz. BP: 130/80 No LMP recorded. Patient is . Assessment/Plan ICD-10-CM 1. 33 weeks gestation of ([facility]) Z3A.33 POCT urinalysis dipstick manually resulted 2. Third trimester ([facility]) Z34.93 POCT urinalysis dipstick manually resulted 3. [...] Plan of Treatment DateTypeDepartmentCare Team (Latest Contact Info)Ozvtcrgnhrq30/10/2024 3:50 PM ESTRoutine [facility] [address] [place] [address] Gogo Pang PA [address] [place] [address] 07/17/2025 3:40 PM ESTPostpartum Visit [facility] [address] [place] [address] Wolfgang Hoffman DO [address] [place] [address] NameTypePriorityAssociated DiagnosesOrder ScheduleUS OB follow up transabdominal approachImagingRoutine size inconsistent with dates ([facility]) Expected: 05/27/2025, Expires: 09/27/2025documented as of this encounter Procedures Procedure NamePriorityDate/TimeAssociated DiagnosisCommentsPOCT URINALYSIS CCYARZFGZspeehe14/20/2025 4:20 PM EDT 33 weeks gestation of ([facility]) Third trimester ([facility]) Psychogenic nonepileptic seizure documented in this encounter [...] / LateralityCollection Method / VolumeCollection Time Received HhlwQtewh81/20/2025 4:20 PM EDT Narrative Authorizing ProviderResult TypeResult StatusCorey Yasmin DOPOINT OF CARE TEST ENTER/EDIT ORDERABLESFinal Result documented in this encounter Visit Diagnoses Diagnosis size inconsistent with dates ([facility])- Primary 33 weeks gestation of ([facility]) Third trimester ([facility]) state, incidental Psychogenic nonepileptic seizure documented in this encounter Care Teams Team MemberRelationshipSpecialtyStart DateEnd Date Jose E Burns MD [address] [place] [address] PCP - GeneralFamily Medicine02/16/23documented as of this encounter
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
--- OUTSIDE RECORDS SUMMARY | 2025-05-31 16:48 | XMS_ITS | Clinical Summary ---
Author Organization [employer] [facility] Address [id number] [address] [place] [address] Care Team Providers Care Unit Technician Name Role Phone Jose E Burns MD Primary Care Provider [phone] Allergies No known active allergies Medications MedicationSigDispense QuantityRefillsLast FilledStart DateEnd DateStatus FLUoxetine (PROzac) 10 mg capsule TAKE 1 CAPSULE BY ORAL ROUTE PER DAILY TAKE 30 MG (20 MG + 10 MG) DAILY 11/06/2020ctive albuterol (PROVENTIL HFA;VENTOLIN HFA) 90 mcg/actuation inhaler Inhale 2 puffs.Active lamoTRIgine (LaMICtal) 100 mg tablet Take 1 tablet (100 mg total) by mouth in the morning.05/16/2023ctive ondansetron ODT (ZOFRAN ODT) 4 mg disintegrating tablet Dissolve 1 tablet (4 mg total) on tongue.06/01/2023ctive medroxyPROGESTERone (DEPO-PROVERA) 150 mg/mL injection Inject 1 mL (150 mg total) into the appropriate muscle every 3 (three) months. Active acetaminophen (TYLENOL EXTRA STRENGTH) 500 mg tablet Take 2 tablets (1,000 mg total) by mouth every 6 (six) hours. 30 tablet 10/03/2023ctive ibuprofen (MOTRIN) 600 mg tablet Take 1 tablet (600 mg total) by mouth every 6 (six) hours. 30 tablet 10/03/2023ctive Active Problems No known active problems Family History Medical HistoryRelationNameCommentsCOPDFatherHeart diseaseFatherDiabetesMother RelationNameStatusCommentsFatherAliveMotherAliveSisterAlive Social History Tobacco UseTypesPacks/DayYears UsedDateSmoking Tobacco: Some DaysCigarettes Smokeless Tobacco: Never Tobacco Cessation:Ready to Q uit: Not Asked; Counseling Given: Not Answered Comments:Will smoke a cigarette if does not have a vape Alcohol UseStandard Drinks/WeekCommentsNever0 (1 standard drink = 0.6 oz pure alcohol)ChildcareAnswerDate EpfnpvkjKvojvcsdtCqfqanl55/12/2019EmploymentAnswer Date QaqutcvaTflaglhjcaNtysbfi49/12/2019Hunger ScreeningAnswerDate Recorded Within the past 12 months we worried whether our food would run out before we got money to buy more.Never True10/18/2023Food Insecurity - InabilityNot on file 10/18/2023CommentsNoSex and Gender InformationValueDate RecordedSex Assigned at BirthNot on fileLegal XuxDhpwqk44/06/2015 12:01 PM EDTGender IdentityNot on fileSexual OrientationNot on file Last Filed Vital Signs Vital SignReadingTime TakenCommentsBlood Czthrifr273/6203 10:03 AM EDT Uqkpo589210/18/2023 10:03 AM DPAJuynamqpipm60.4 ??C (97.5 ??F)10/03/2023 1:45 PM ESTRespiratory Gbct848010/03/2023 2:29 PM ESTOxygen Cjfzzunnin586%10/03/2023 2:29 PM ESTInhaled Oxygen Concentration--Mcijmw30.6 kg (133 lb 9.6 oz)10/18/2023 10:03 AM IACVvfarz484.3 cm (5' 9 )10/18/2023 10:03 AM EDTBody Mass Index19.73 10/18/2023 10:03 AM EDT Plan of Treatment Health MaintenanceDue DateLast DoneCommentsDepression Pxudvsihb54/16/2015Pap Smear2024dult BMI Ovwsttbes26Tobacco Screening Influenza Qitbdhl40/, 06/22/2016, 07/29/2011DTaP,Tdap and Td Vaccines (7 - Td or Tdap)6003/25/2016, 04/23/2009, 02/24/2007, Additional history exists Medical Devices Not on file Insurance Care Teams Team MemberRelationshipSpecialtyStart DateEnd Date Jose E Burns MD PCP - Generalmily Medicine03/25/21
--- OUTSIDE RECORDS SUMMARY | 2025-05-31 16:49 | XMS_ITS | Encounter Summary ---
Author Organization [facility] Address [address] [facility] [place] [address] Care Team Providers Care Process Pumper Name Role Phone Jose E Burns MD Primary Care Provider [phone] Encounter Details DateTypeDepartmentCare Team (Latest Contact Info)Lsjrdgxkhpl33/20/2025Bamboo flowsheet [facility] [address] [place] [place] [address] Wolfgang Hoffman DO [address] [place] [address] Social History Tobacco UseTypesPacks/DayYears UsedDateSmoking Tobacco: Never AssessedPHQ-2 AnswerDate RecordedPatient Health Questionnaire-2 Yzecl100 Estimated Date of DxcoupgxMvbyjrqxIdk74/03/2025Based on Ultrasound, FHR-158Sex and Gender InformationValueDate RecordedSex Assigned at BirthNot on fileLegal EmjYveijn71/15/2023 6:34 PM EDTGender IdentityNot on fileSexual OrientationNot on filedocumented as of this encounter Plan of Treatment DateTypeDepartmentCare Team (Latest Contact Info)Jpcmqymbmei61/03/2025 3:50 PM ESTRoutine [facility] [address] [place] [address] Gogo Pang PA [address] [place], [place] [id number] 07/17/2025 3:40 PM ESTPostpartum Visit [facility] [address] [place] [address] Wolfgang Hoffman DO [address] [place] [address] documented as of this encounter Visit Diagnoses Not on filedocumented in this encounter Care Teams Team MemberRelationshipSpecialtyStart DateEnd Date Jose E Burns MD [address] [facility] [place] [address] PCP - GeneralFamily Medicine02/16/23documented as of this encounter
--- OUTSIDE RECORDS SUMMARY | 2025-05-31 16:49 | XMS_ITS | Encounter Summary ---
Author Organization [facility] Address [address] [facility] [place] [address] Care Team Providers Care Auto Dealership Porter Name Role Phone Jose E Burns MD Primary Care Provider [phone] Encounter Details DateTypeDepartmentCare Team (Latest Contact Info)Kouttlpwbuu28/13/2025bstract [facility] [address] [place] [address] Wolfgang Hoffman DO [address] [facility] [address] [place] [address] Social History Tobacco UseTypesPacks/DayYears UsedDateSmoking Tobacco: Never AssessedPHQ-2 AnswerDate RecordedPatient Health Questionnaire-2 Tedgs175 Estimated Date of HmjfzhojDvlnzaiqZtl50/03/2025Based on Ultrasound, FHR-158Sex and Gender InformationValueDate RecordedSex Assigned at BirthNot on fileLegal JrmHwwxfs00/15/2023 6:34 PM EDTGender IdentityNot on fileSexual OrientationNot on filedocumented as of this encounter Plan of Treatment DateTypeDepartmentCare Team (Latest Contact Info)Mmgdyscrice72/03/2025 3:50 PM ESTRoutine [facility]ie [facility] [address] [place] [address] Gogo Pang PA [address] [facility] [address] [place], [place] [id number] 07/17/2025 3:40 PM ESTPostpartum Visit [facility] [address] [address] Wolfgang Hoffman DO [address] [facility] [place] [address] documented as of this encounter Visit Diagnoses Not on filedocumented in this encounter Care Teams Team MemberRelationshipSpecialtyStart DateEnd Date Jose E Burns MD [address] [facility] [place] [address] PCP - GeneralFamily Medicine02/16/23documented as of this encounter
--- OUTSIDE RECORDS SUMMARY | 2025-05-31 16:49 | XMS_ITS | Encounter Summary ---
Author Organization [facility] Address [address] [facility] [place] [address] Care Team Providers Care Farm Crew Member Name Role Phone Jose E Burns MD Primary Care Provider [phone] Encounter Details DateTypeDepartmentCare Team (Latest Contact Info)Cgcshkxqbwi95/13/2025Telephone [facility] [address] [place] [address] Ela Calvillo, [place] [address] [place] [address] Social History Tobacco UseTypesPacks/DayYears UsedDateSmoking Tobacco: Never AssessedPHQ-2 AnswerDate RecordedPatient Health Questionnaire-2 Yxgfy990 Estimated Date of YlpnfgwmOklbmjjoMjg50/03/2025Based on Ultrasound, FHR-158Sex and Gender InformationValueDate RecordedSex Assigned at BirthNot on fileLegal UfkRqalse07/15/2023 6:34 PM EDTGender IdentityNot on fileSexual OrientationNot on filedocumented as of this encounter Miscellaneous Notes * Telephone Encounter - Pat Skelton LPN - 05/20/2025 8:53 AM EDT Per provider patient is to call and schedule an office visit with To discuss going back to work, 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 Pvu and she was transferred to clerical to schedule. documented in this encounter Plan of Treatment DateTypeDepartmentCare Team (Latest Contact Info)Ofjjlietpim25/03/2025 3:50 PM ESTRoutine [facility] Maddie COSTA [address] [place] [phone] Gogo Pang PA [address] [place], [place] [id number] 07/17/2025 3:40 PM ESTPostpartum Visit NOMStacey COSTA [address] [place] [address] Wolfgang Hoffman DO [address] [place], [place] [id number] documented as of this encounter Visit Diagnoses Not on filedocumented in this encounter Care Teams Team MemberRelationshipSpecialtyStart DateEnd Date Jose E Burns MD [address] [facility] [place] [address] PCP - GeneralFamily Medicine02/16/23documented as of this encounter
--- OUTSIDE RECORDS SUMMARY | 2025-05-31 16:49 | XMS_ITS | Clinical Summary ---
Author Organization [facility] Address [address] [place] [address] Care Team Providers Care Firer Locomotive Crane Name Role Phone Jose E Burns MD Primary Care Provider [phone] Allergies No known active allergies Medications MedicationSigDispense QuantityRefillsLast FilledStart DateEnd DateStatus 28-0.8 MG tablet Take 1 tablet by mouth DailyActive metroNIDAZOLE (Metrogel) 0.75 % vaginal gel Indications:Bacterial vaginosisPatient to use vaginally nightly for 5 nights, then twice weekly thereafter for 4 months. 140 g 5Active citalopram (CeleXA) 20 MG tablet Indications:Anxiety, generalizedTake 1 tablet (20 mg) by mouth Daily 30 tablet 508/506Active Active Problems ProblemNoted DateDiagnosed DateThird trimester ([facility])12/27/2022 Psychogenic nonepileptic fpnfglc1011/29/20203544Ieliwjpzb29/23/2021eterioration in school cghofkjixso97/16/2015Nocturnal augyplwq60/07/2013DHD (attention deficit hyperactivity disorder)01/11/2012Estimated Date of DeliveryCommentsYes 5Based on Ultrasound, FHR-158 Encounters DateTypeDepartmentCare JihnRdafmrhetnu09/20/2025 3:50 PM EDTRoutine [facility] To[facility] OBGYIsa [address] [place] [address] [place] [address] Wolfgang Hoffman, size inconsistent with dates ([facility]) (Primary Dx); 33 weeks gestation of ([facility]); Third trimester ([facility]); Psychogenic nonepileptic hnlzraf4505/27/2025amboo flowsheet [facility] [address] [facility] [place] [address] Wolfgang Hoffman, 05/20/2025bstract [facility] [address] [facility] [place] [address] Wolfgang Hoffman, 05/20/2025Telephone [facility] [address] [facility] [place] [address] Ela Calvillo NP 05/13/2025 3:50 PM EDTRoutine [facility] [address] [facility] [place] [address] Ela Calvillo, [place] 31 weeks gestation of ([facility]); Third trimester ([facility])05/13/2025Patient Outreach [facility] [address] [place] [address] Gogo Montiel LPN 05/10/2025Patient Outreach [facility] [address] [place] [address] Gogo Montiel, PARENT PARTNER 05/03/2025Telephone [facility] [address] [facility] [place] [address] Ela Calvillo NP 04/30/2025linisync Result Encounter NOMS External Department Unsolicited Wolfgang Hoffman, 04/29/2025 3:20 PM EDTRoutine [facility] [address] [facility] [facility] [place] [address] YasminWolfgang hoover DO Third trimester ([facility]); 29 weeks gestation of ([facility]); Psychogenic nonepileptic seizure ; Diabetes mellitus aznjlaqlb75/22/2025amboo flowsheet [facility] [address] [facility] [place] [address] Wolfgang Hoffman, 04/22/20252854Zcjlmj37/10/2025 3:20 PM EDTRoutine [facility] [address] [facility] [place] [address] Ela Calvillo, [place] Third trimester ([facility]); 28 weeks gestation of ([facility])04/17/2025[facility] flowsheet [facility] [address] [facility] [facility] [place] [address] Ela Calvillo NP 04/15/2025Patient Outreach [facility] [address] [place] [address] Gogo Montiel LPN 04/03/2025 3:40 PM EDTRoutine [facility] OBFUNMIN [address] [facility] [place] [address] Wolfgang Hoffman DO Anxiety, generalized (Primary Dx); Second trimester ([facility]); 26 weeks gestation of ([facility]); History of psychogenic nonepileptic rfmlbcf5004/03/2025[facility] flowsheet [facility] [address] [facility] [place] [address] Wolfgang Hoffman DO 03/22/2025Telephone [facility] [address] [facility] [facility] [place] [address] Mildred Mason LPN 03/20/2025 3:40 PM EDTRoutine [facility] OBBEN [address] [place] [address] [place] [address] Gogo Pang PA Second trimester ([facility]); 24 weeks gestation of ([facility]); Diabetes mellitus screening; Yeast infection; BV (bacterial vaginosis); Urinary tract infection without hematuria, site hiktyjziuez01/13/2025amboo flowsheet [facility] To[facility] COSTA [address] [place] [address] [place] [address] Gogo Pang PA 03/18/2025Patient Outreach [facility] [address] [place] [phone] Gogo Mnotiel LPN 03/05/2025Telephone NOMS [address] [place] [address] Wolfgang Hoffman DO from Last 3 Months Social History Tobacco UseTypesPacks/DayYears UsedDateSmoking Tobacco: Never AssessedPHQ-2 AnswerDate RecordedPatient Health Questionnaire-2 Rmjxc654 Estimated Date of LdhryemxFvfptguhMyp49/03/2025ased on Ultrasound, FHR-158Sex and Gender InformationValueDate RecordedSex Assigned at BirthNot on fileLegal WzoIagjre89/15/2023 6:34 PM EDTGender IdentityNot on fileSexual OrientationNot on file Last Filed Vital Signs Vital SignReadingTime TakenCommentsBlood Mfbjnkuw168/801 4:15 PM EDT Pulse--Temperature--Respiratory Rate--Oxygen Saturation--Inhaled Oxygen Concentration--Zvyfyt42.8 kg (160 lb 6.4 oz)05/27/2025 4:15 PM XDSHltypk707.6 cm (5' 6 )12/21/2022 12:00 PM EDTBody Mass Index25.8912/21/2022 12:00 PM EDT Plan of Treatment DateTypeDepartmentCare Team (Latest Contact Info)Wyqifrbhrag19/03/2025 3:50 PM ESTRoutine [facility] Toño [address] [place] [address] Gogo Pang PA [address] [place] [address] [place] [address] 07/17/2025 3:40 PM ESTPostpartum Visit [facility] [address] [facility] [place] [address] Wolfgang Hoffman, [address] [facility] [place] [address] Health MaintenanceDue DateLast DoneCommentsInfluenza Vaccine (#1)04/08/2025 06/23/2021, 06/22/2016, 07/29/2011 Procedures Procedure NamePriorityDate/TimeAssociated DiagnosisCommentsPOCT URINALYSIS XJEDUASNYwcqwdc46/20/2025 4:20 PM EDT 33 weeks gestation of ([facility]) Third trimester ([facility]) Psychogenic nonepileptic seizure POCT URINALYSIS EMDSDIVKJimpixm16/06/2025 3:59 PM EDT 31 weeks gestation of ([facility]) MLR HEMOGLOBIN R8EQydmtbq80/23/2025 2:43 PM EDT ALL CBC WITH AUTO BLTJUuhcbte36/23/2025 2:43 PM EDT POCT URINALYSIS MDMBSOCRNyynlux12/22/2025 3:42 PM EDT Third trimester ([facility]) POCT URINALYSIS ICXHVKQFItidhrv82/10/2025 3:32 PM EDT Third trimester ([facility]) RECURRENT VAGINITIS (HTRX)Slwpgoa9903/20/2025 4:45 PM EDT URINARY TRACT INFECTION (HTRX)Gdbezrh0503/20/2025 4:28 PM EDT POCT URINALYSIS QYJULYMHEkyurnp32/13/2025 4:13 PM EDT Second trimester ([facility]) from Last 3 Months Results * (ABNORMAL) POCT urinalysis dipstick manually resulted (05/27/2025 4:20 PM EDT) Only the most recent of5 resultswithin the time period is included. ComponentValueRef RangeTest MethodAnalysis TimePerformed AtPathologist Signature Color, UAYellowClarity, UAClearGlucose, UANegativeNegative - 2000(110) ++++ mg/dLBilirubin, UANegativeNegative - 4(70) +++ mg/dLKetones, UAPositiveNegative - 160(16) ++++ mg/dLSpec Grav, UA1.0151 - 1.03Blood, UANegativeNegative - 50 Blayne/mcLpH, UA6.05 - 9Protein, UANegativeNegative - 2000(20) ++++ mg/dL Urobilinogen, UA1.00.2 - 12 mg/dLLeukocytes, UA3+Negative - 500+++ Jo/mcL Nitrite, UANegativeNegative - PositiveSpecimen (Source)Anatomical Location / LateralityCollection Method / VolumeCollection TimeReceived IumcZvmar80/20/2025 4:20 PM EDT Narrative Authorizing ProviderResult TypeResult StatusWolfgang Hoffman DOPOINT OF CARE TEST ENTER/EDIT ORDERABLESFinal Result * (ABNORMAL) MLR HEMOGLOBIN A1C (04/30/2025 2:43 PM EDT)ComponentValueRef Range Test MethodAnalysis TimePerformed AtPathologist SignatureGLYCOHEMOGLOBIN A1C 4.3(L)4.5 - 6.2 %TBHComment: ADA RECOMMENDED LIMIT 4.0 - 6.0 ADA THERAPEUTIC TARGET < 7.0 ACTION SUGGESTED > 7.0 ESTIMATED AVERAGE YKMEMAG62cp/dLTBHSpecimen (Source)Anatomical Location / LateralityCollection Method / VolumeCollection TimeReceived Time04/30/2025 2:43 PM EDT04/30/2025 2:44 PM EDT Narrative CLINISYNC - 04/30/2025 3:46 PM EDT Authorizing ProviderResult TypeResult StatusEla Calvillo NPCLINISYNCFinal ResultPerforming OrganizationAddressCity/State/ZIP CodePhone Number CLINISYNC TBH * (ABNORMAL) ALL CBC WITH AUTO DIFF (04/30/2025 2:43 PM EDT)ComponentValueRef RangeTest MethodAnalysis TimePerformed AtPathologist SignatureTBH WBC9.74.0 - 11.0 10 3/uLTBHTBH RBC3.94(L)4.20 - 5.40 10 6/uLTBHTBH HGB12.612.0 - 16.0 g/dL TBHTBH HCT34.5(L)36.0 - 48.0 %TBHTBH MCV87.681.0 - 99.0 fLTBHTBH MCH32.026.7 - 34.0 pgTBHTBH MCHC36.5(H)29.9 - 35.2 g/dLTBHTBH RDW11.911.0 - 15.0 %TBHTBH PLT 790924 - 450 10 3/uLTBHTBH MPV11.39.5 - 13.5 fLTBHNEUTROPHILS PERCENT AUTO70.3 43.0 - 75.0 %TBHLYMPHOCYTES PERCENT AUTO17.7(L)20.5 - 60.0 %TBHMONOCYTES PERCENT AUTO9.01.7 - 12.0 %TBHTBH EO %0.90.9 - 7.0 %TBHBASOPHILS PERCENT AUTO 0.30.2 - 2.0 %TBHIMMATURE GRANULOCYTES PCT AUTO1.8(H)0.0 - 0.5 %TBHNEUTROPHILS ABSOLUTE AUTO6.8(H)1.4 - 6.5 10 3/uLTBHLYMPHOCYTES ABSOLUTE AUTO1.71.2 - 3.8 10 3/uLTBHMONOCYTES ABSOLUTE AUTO0.9(H)0.3 - 0.8 10 3/uLTBHTBH EO #0.10.0 - 0.7 10 3/uLTBHBASOPHILS ABSOLUTE AUTO0.00.0 - 0.1 10 3/uLTBHIMMATURE GRANULOCYTES ABS AUTO0.17(H)0.00 - 0.03 10 3/uLTBHSpecimen (Source)Anatomical Location / LateralityCollection Method / VolumeCollection TimeReceived Time 04/30/2025 2:43 PM EDT04/30/2025 2:44 PM EDT Narrative CLINISYNC - 04/30/2025 2:54 PM EDT Authorizing ProviderResult TypeResult StatusCorey Yasmin DOCLINISYNCFinal Result Performing OrganizationAddressCity/State/ZIP CodePhone Number NOHEMI TBH * (ABNORMAL) RECURRENT VAGINITIS (HTRX) (03/20/2025 4:45 PM EDT)ComponentValue Ref RangeTest MethodAnalysis TimePerformed AtPathologist SignatureATOPOBIUM ZUGJSQQ959.961 - 24.689 ppm03/22/2025 7:27 AM EDTHealthTrackRx at [facility] ATOPOBIUM VAGINAENot Dynsttue96.961 - 24.689 ppm03/22/2025 7:27 AM EDT [facility] at LabPortBVAB 2,3 (BACTERIAL VAGINOSIS ASSOCIATED BACTERIA 2, 3); MOBILUNCUS SPP25.723(A)19.961 - 24.689 ppm03/22/2025 7:27 AM EDT [facility] at LabPortBVAB 2,3 (BACTERIAL VAGINOSIS ASSOCIATED BACTERIA 2, 3); MOBILUNCUS SPPDetected(A)19.961 - 24.689 ppm03/22/2025 7:27 AM EDT [facility] at LabPortCANDIDA ALBICANS, PARAPSILOSIS, XPBURDDWPO740.000 - 30.347 ppm03/22/2025 7:27 AM EDTHealthTrackRx at LabPortCANDIDA ALBICANS, PARAPSILOSIS, TROPICALISNot Btgigwkq81.000 - 30.347 ppm03/22/2025 7:27 AM EDT [facility] LabPortCANDIDA BRJJICGH445.000 - 31.618 ppm03/22/2025 7:27 AM EDTHealthTrackRx at LabPortCANDIDA GLABRATANot Pbzxerpl25.000 - 31.618 ppm 03/22/2025 7:27 AM EDTHealthTrackRx at LabPortCANDIDA EODCKD756.000 - 30.873 ppm03/22/2025 7:27 AM EDTHealthTrackRx at LabPortCANDIDA KRUSEINot Detected 23.000 - 30.873 ppm03/22/2025 7:27 AM EDTHealthTrackRx [address] [facility] CenterCHLAMYDIA QUXFWYGKKWV923.000 - 31.586 ppm03/22/2025 7:27 AM EDTHealthTrackRx at [facility] CHLAMYDIA TRACHOMATISNot Usmgqgdj64.000 - 31.586 ppm03/22/2025 7:27 AM EDT [facility] CenterGARDNERELLA KBEFFFAOW32.041(A)19.961 - 24.689 ppm 03/22/2025 7:27 AM EDTHealthTrackRx at [facility] CenterGARDNERELLA VAGINALISDetected(A) 19.961 - 24.689 ppm03/22/2025 7:27 AM EDTHealthTrackRx at [facility] Medical CenterMEGASPHAERA (TYPES 1, 2)019.961 - 24.689 ppm03/22/2025 7:27 AM EDTHealthTrackRx at [facility] MEGASPHAERA (TYPES 1, 2)Not Njgolefj36.961 - 24.689 ppm03/22/2025 7:27 AM EDT [facility] at LabPortNEISSERIA HRRVITEUDJG087.000 - 32.587 ppm03/22/2025 7:27 AM EDTHealthTrackRx at [facility] CenterNEISSERIA GONORRHOEAENot Vphmsguq90.000 - 32.587 ppm03/22/2025 7:27 AM EDTHealthTrackRx at LabPortTRICHOMONAS VAGINALIS0 23.000 - 31.995 ppm03/22/2025 7:27 AM EDTHealthTrackRx at LabPortTRICHOMONAS VAGINALISNot Xctitgvr81.000 - 31.995 ppm03/22/2025 7:27 AM EDTHealthTrackRx at LabPortMYCOPLASMA HCMFAGCSFO616.961 - 24.689 ppm03/22/2025 7:27 AM EDT [facility]St[facility] HospitalMYCOPLASMA GENITALIUMNot Flmlligx56.961 - 24.689 ppm 03/22/2025 7:27 AM EDTHealthTrackRx at LabPortERMB, C; MEFA24.079(A)23.000 - 27.500 ppm03/22/2025 7:27 AM EDTHealthTrackRx at LabPortERMB, C; MEFADetected (A)23.000 - 27.500 ppm03/22/2025 7:27 AM EDTHealthTrackRx at LabPortTET B, TET M23.681(A)23.000 - 27.500 ppm03/22/2025 7:27 AM EDTHealthTrackRx at LabSt. Vincent Randolph HospitalTET B, TET MDetected(A)23.000 - 27.500 ppm03/22/2025 7:27 AM EDTHealthTrackRx at LabSt. Vincent Randolph HospitalSpecimen (Source)Anatomical Location / LateralityCollection Method / VolumeCollection TimeReceived JlreRldtub21/13/2025 4:45 PM EDT03/22/2025 2:18 AM EDT Narrative Authorizing ProviderResult TypeResult StatusEla Calvillo NPLAB BLOOD ORDERABLESFinal ResultPerforming OrganizationAddressCity/State/ZIP CodePhone Number [facility] at [facility] [address] [place] [address] * URINARY TRACT INFECTION (HTRX) (03/20/2025 4:28 PM EDT)ComponentValueRef Range Test MethodAnalysis TimePerformed AtPathologist SignatureACINETOBACTER GALUIAFL254.961 - 24.689 ppm03/22/2025 9:02 AM EDTHealthTrackRx at LabSt[facility] ACINETOBACTER BAUMANIINot Kybgbxif62.961 - 24.689 ppm03/22/2025 9:02 AM EDT [facility] at LabPortCITROBACTER RPCURPET710.000 - 32.015 ppm03/22/2025 9:02 AM EDTHealthTrackRx at LabPortCITROBACTER FREUNDIINot Frnpebap12.000 - 32.015 ppm03/22/2025 9:02 AM EDTHealthTrackRx at LabPortENTEROBACTER AEROGENES, WARWPHD512.000 - 32.290 ppm03/22/2025 9:02 AM EDTHealthTrackRx at LabPortENTEROBACTER AEROGENES, CLOACAENot Ocmrewqb33.000 - 32.290 ppm 03/22/2025 9:02 AM EDTHealthTrackRx at LabPortENTEROCOCCUS FAECALIS, FAECIUM0 26.000 - 33.043 ppm03/22/2025 9:02 AM EDTHealthTrackRx at LabPortENTEROCOCCUS FAECALIS, FAECIUMNot Tpigvzxl60.000 - 33.043 ppm03/22/2025 9:02 AM EDT [facility] at LabPortESCHERICHIA KQEL520.000 - 28.500 ppm03/22/2025 9:02 AM EDTHealthTrackRx at LabPortESCHERICHIA COLINot Ngtdhgrq40.000 - 28.500 ppm 03/22/2025 9:02 AM EDTHealthTrackRx at LabPortKLEBSIELLA PNEUMONIAE, OXYTOCA0 23.000 - 31.865 ppm03/22/2025 9:02 AM EDTHealthTrackRx at LabPortKLEBSIELLA PNEUMONIAE, OXYTOCANot Gmxlmjub80.000 - 31.865 ppm03/22/2025 9:02 AM EDT [facility] at LabPortMORGANELLA VIPOLTHA458.961 - 24.689 ppm03/22/2025 9:02 AM EDTHealthTrackRx at LabPortMORGANELLA MORGANIINot Wdznialm93.961 - 24.689 ppm03/22/2025 9:02 AM EDTHealthTrackRx at LabPortPROTEUS MIRABILIS, VULGARIS0 23.000 - 28.500 ppm03/22/2025 9:02 AM EDTHealthTrackRx at LabPortPROTEUS MIRABILIS, VULGARISNot Hxeogxtr63.000 - 28.500 ppm03/22/2025 9:02 AM EDT [facility] at LabPortPSEUDOMONAS AHJRFRJEBJ824.000 - 31.801 ppm03/22/2025 9:02 AM EDTHealthTrackRx at LabPortPSEUDOMONAS AERUGINOSANot Beakzdbb39.000 - 31.801 ppm03/22/2025 9:02 AM EDTHealthTrackRx at LabPortSTAPHYLOCOCCUS AUREUS0 26.000 - 31.595 ppm03/22/2025 9:02 AM EDTHealthTrackRx at [facility] STAPHYLOCOCCUS AUREUSNot Iziokzlw79.000 - 31.595 ppm03/22/2025 9:02 AM EDT [facility] at LabPortSTREPTOCOCCUS AGALACTIAE (GROUP B STREP)026.000 - 32.435 ppm03/22/2025 9:02 AM EDTHealthTrackRx at LabPortSTREPTOCOCCUS AGALACTIAE (GROUP B STREP)Not Yajunffl02.000 - 32.435 ppm03/22/2025 9:02 AM EDTHealthTrackRx at LabPortCANDIDA ALBICANS, PARAPSILOSIS, AQDITHECRG130.000 - 30.347 ppm03/22/2025 9:02 AM EDTHealthTrackRx at LabPortCANDIDA ALBICANS, PARAPSILOSIS, TROPICALISNot Yvfhppsa83.000 - 30.347 ppm03/22/2025 9:02 AM EDT [facility] LabPortCANDIDA MEAQQJLZ470.000 - 31.618 ppm03/22/2025 9:02 AM EDTHealthTrackRx at LabPortCANDIDA GLABRATANot Sopokywa32.000 - 31.618 ppm 03/22/2025 9:02 AM EDTHealthTrackRx at LabPortCANDIDA UNQDVI217.000 - 30.873 ppm03/22/2025 9:02 AM EDTHealthTrackRx at LabPortCANDIDA KRUSEINot Detected 23.000 - 30.873 ppm03/22/2025 9:02 AM EDTHealthTrackRx at LabPortSERRATIA YCYVQNRUHR865.000 - 31.581 ppm03/22/2025 9:02 AM EDTHealth[facility] at [facility] SERRATIA MARCESCENSNot Ftmjdadw44.000 - 31.581 ppm03/22/2025 9:02 AM EDT [facility] at LabPortSTREPTOCOCCUS PYOGENES (GROUP A STREP)019.961 - 24.689 ppm03/22/2025 9:02 AM EDTHealthTrackRx at LabPortSTREPTOCOCCUS PYOGENES (GROUP A STREP)Not Aeltluty50.961 - 24.689 ppm03/22/2025 9:02 AM EDTHealthTrackRx at LabPortSTAPHYLOCOCCUS EPIDERMIDIS, HAEMOLYTICUS, LUGDUNENSIS, SAPROPHYTICUS (MCUGZ586.961 - 24.689 ppm03/22/2025 9:02 AM EDTHealthTrackRx at [facility]St[facility] STAPHYLOCOCCUS EPIDERMIDIS, HAEMOLYTICUS, LUGDUNENSIS, SAPROPHYTICUS (URINANot Watarigw74.961 - 24.689 ppm03/22/2025 9:02 AM EDTHealth[facility] at [facility] STAPHYLOCOCCUS EPIDERMIDIS, HAEMOLYTICUS, LUGDUNENSIS, SAPROPHYTICUS (URINA0 19.961 - 24.689 ppm03/22/2025 9:02 AM EDTHealthTrackRx at [facility] STAPHYLOCOCCUS EPIDERMIDIS, HAEMOLYTICUS, LUGDUNENSIS, SAPROPHYTICUS (URINANot Rellcscg87.961 - 24.689 ppm03/22/2025 9:02 AM EDTHealthTrackRx at [facility] Specimen (Source)Anatomical Location / LateralityCollection Method / Volume Collection TimeReceived UpocOwmex99/13/2025 4:28 PM EDT03/22/2025 2:18 AM EDT Narrative Authorizing ProviderResult TypeResult StatusEla Calvillo NPLAB BLOOD ORDERABLESFinal ResultPerforming OrganizationAddressCity/State/ZIP CodePhone Number [facility] [address] [place] [address] from Last 3 Months Insurance Care Teams Team MemberRelationshipSpecialtyStart DateEnd Jose E Burns MD [address] [facility] [place] [address] PCP - [facility]02/16/23
--- OUTSIDE RECORDS SUMMARY | 2025-05-31 16:49 | XMS_ITS | Patient Health Record ---
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 asthmatic J45.902 Epigastric discomfort R10.13 Urinary tract infection [...]
--- OUTSIDE RECORDS SUMMARY | 2025-05-31 16:50 | XMS_ITS | CCD ---
Author Organization [facility] Care Team Providers Care Customer Counter Associate Name Role Phone YASMIN ., DR ALLEN [...] Unavailable YASMIN ., DR ALLEN Attending Unavailable VIEQUES, DR YO Scanlon Consulting Unavailable YASMIN ., [...] Unavailable ZIEBER, DR LUISA Garcia Consulting Unavailable POLY ., GOGO Admitting Unavailable POLY ., GOGO Attending Unavailable HOY ., DR WETZEL Primary Care Unavailable POLY ., GOGO Consulting Unavailable POLY ., GOGO Consulting Unavailable POLY ., GOGO Admitting Unavailable POLY ., GOGO Attending Unavailable HOY ., DR [...] HILARIO Consulting Unavailable GEORGINA HILARIO Admitting Unavailable HOCuauhtemoc ., DR WETZEL Primary Care Unavailable RADHA ., CASSANDRA Consulting Unavailable TO, YO Consulting Unavailable YOUNG, DR GUSTAVO Garcia Attending Unavailable YOUNG, DR GUSTAVO Garcia Consulting Unavailable YOUNG, DR GUSTAVO Garcia Admitting Unavailable TC ., DR WETZEL Primary Care Unavailable ALICJA AVILA Unavailable Rashard Montez Primary Care Physician Rashard Montez Referring Unavailable Alicja LINARES Attending [...] le NO FAMILY, PHYSICIAN Primary Care Unavailable Rashard Montez MD Primary Care Provider [phone] WILLA HOFFMANY Attending Unavailable YASMIN, WOLFGANG Attending Unavailable YASMIN, WOLFGANG Attending Unavailable POLY, GOGO Attending Unavailable YASMIN, WOLFGANG Attending Unavailable POLY, GOGO Attending Unavailable YASMIN, WOLFGANG Attending Unavailable RAJINDER, ELVIA Attending Unavailable YASMIN, WOLFGANG Attending Unavailable RAJINDER, ELVIA Attending Unavailable YASMIN, WOLFGANG Attending Unavailable Allergies Allergy ClassificationReported Allergen(s)Allergy TypeDate of OnsetReaction(s) Facility (1 source)amanda allergenic extractDrug [id number] [facility] Repository (1 source)Unable to obtain; Translations: [Unable to obtain]Propensity to adverse reactions (disorder)[facility] Repository (1 source)No Known Medication Allergies; Translations: [No Known Medication Allergies]Propensity to adverse reactions (disorder)[facility] Repository Medications Current Medications MedicationDrug Class(es)DatesSig (Normalized)Sig (Original)acetaminophen 500 mg oral tablet (2 sources)Start: 75-07-2863gflc 2 tablets by mouth every six hoursacetaminophen (TYLENOL EXTRA STRENGTH) 500 mg tablet Take 2 tablets (1,000 mg total) by mouth every6 (six) hours. 30 tablet 0 10/03/2023 [id number] 200 actuat albuterol 0.09 mg/actuat metered dose inhaler (13 sources)beta2-Adrenergic Agonist End: 92-86-3273mppriksjo HFA 90 mcg/act inhaler Inhale 2 puffs 12/06/2024 Discontinuedalbuterol (PROVENTIL HFA;VENTOLIN HFA) 90 mcg/actuation inhaler Inhale 2 puffs. 0 Activecephalexin 50 mg/ml oral suspension (2 sources)Cephalosporin AntibacterialStart: 03-20-2025 End: 77-04-0107yzdm 10 mL by mouth every six hourscephalexin (Keflex) 250 MG/5ML suspension Indications: Urinary tract infection without hematuria, site unspecified Take 10 mL (500 mg) by mouth every 6 (six) hours for 10 days 400 mL 03/20/2025 03/30/2025 Activecitalopram 20 mg oral tablet (20 sources)Serotonin Reuptake InhibitorStart: 04-03-2025 End: 18-35-1177pgtf 1 tablet by mouth once dailycitalopram (CeleXA) 20 MG tablet Indications: Anxiety, generalized Take 1 tablet (20 mg) by mouth Daily 30 tablet 5 04/03/2025 09/30/2025 Active End: 07-31-6896ljjl 1 tablet by mouth in the morningcitalopram (CeleXA) 10 MG tablet Take 10 mg by mouth in the morning. 12/06/2024 Discontinueddesmopressin acetate 0.2 mg oral tablet (9 sources)Vasopressin Analog, Factor VIII Activator End: 55-83-0151fiinakvadora (DDAVP) 0.2 MG tablet 2 qam and 1 prn 12/06/2024 Discontinueddesogestrel 0.15 mg / ethinyl estradiol 0.03 mg oral tablet (9 sources)Progestin, EstrogenStart: 06-19-2024 End: 74-34-2122oqcp 1 tablet by mouth once daily, then take 1 tablet by mouth once dailydesogestrel-ethinyl estradiol (Apri) 0.15-30 MG-MCG tablet Indications: Encounter for BCP ( control pills) initial prescription Take 1 tablet by mouth Daily Take 1 tablet by mouth daily 84 tablet 3 06/19/2024 12/06/2024 Hlnaqwbxbhsr90 hr desvenlafaxine succinate 50 mg extended release oral tablet (10 sources)Serotonin and Norepinephrine Reuptake InhibitorStart: 06-22-2023 End: 03-74-9195dqlo 1 tablet by mouth once dailyPristiq 50 mg Tab-ER 50 mg = 1 tab(s), Oral, Daily, Refills(s) 0 Start Date: 06/22/23 Status: OrderedFLUoxetine 10 mg oral capsule (7 sources)Serotonin Reuptake InhibitorStart: 28-69-9205efin 1 capsule by mouth once dailyFLUoxetine (PROzac) 10 mg capsule TAKE 1 CAPSULE BY ORAL ROUTE PER DAILY TAKE 30 MG (20 MG + 10 MG)DAILY 0 11/06/2020 Activehyoscyamine sulfate 0.125 mg oral tablet (10 sources)Start: 07-05-2023 End: 28-46-4524dgultwdbwst (Levsin) 0.125 MG tablet Take 0.125 mg by mouth 07/05/2023 12/06/2024 Discontinuedibuprofen 600 mg oral tablet (2 sources)Nonsteroidal Anti-inflammatory DrugStart: 09-16-2015lqrf 1 tablet by mouth every six hoursibuprofen (MOTRIN) 600 mg tablet Take 1 tablet (600 mg total) by mouth every 6 (six) hours. 30 tablet 0 10/03/2023 ActivelamoTRIgine 100 mg oral tablet (14 sources)Mood Stabilizer, Anti-epileptic AgentStart: 05-16-2023 End: 62-46-6448bqal 1 tablet by mouth in the morninglamoTRIgine (LaMICtal) 100 MG tablet Take 1 tablet by mouth in the morning and 1 tablet before bedtime. 05/16/2023 12/06/2024 DiscontinuedmedroxyPROGESTERone acetate 10 mg oral tablet (20 sources)ProgestinStart: 09-25-2024 End: 04-62-7284obyw 1 tablet by mouth once dailymedroxyPROGESTERone (Provera) 10 MG tablet Indications: PCOS (polycystic ovarian syndrome) Take 1 tablet (10 mg) by mouth Daily for 14 days 14 tablet 09/25/2024 12/06/2024 DiscontinuedStart: 12-30-2023 End: 90-82-7627kwxoyvsXOJQWJCLPoqz (Depo-Provera) 150 MG/ML suspension prefilled syringe injection syringe Indications: Encounter for initial prescription of injectable contraceptive INJECT 1 ML (150 MG) INTO THE SHOULDER, THIGH, OR BUTTOCKS EVERY 3 (THREE) MONTHS. 1 mL 3 12/30/2023 12/06/2024 DiscontinuedStart: 09-30-2023 End: 92-55-2608wsczcuoCKIIRVDXDkny (Depo-Provera) injection 150 mg medroxyPROGESTERone (DEPO-PROVERA) 150 mg/mL injection Inject 1 mL (150 mg total) into the appropriate muscle every 3 (three) months. 0 ActivemetroNIDAZOLE 0.0075 mg/mg vaginal gel (15 sources)Nitroimidazole AntimicrobialStart: 01-53-5219iqxquGXQQSQSY (Metrogel) 0.75 % vaginal gel Indications: Bacterial vaginosis Patient to use vaginally nightly for 5 nights, then twice weekly thereafter for 4 months. 140 g 3 03/25/2025 Activeondansetron 4 mg disintegrating oral tablet (19 sources)Serotonin-3 Receptor AntagonistStart: 01-18-2025 End: 49-21-5746jsgq 1 tablet by mouth every six hours for nauseaondansetron ODT (Zofran-ODT) 4 MG disintegrating tablet Indications: Nausea and vomiting in ([facility]) Take 1 tablet (4 mg) by mouth every 6 (six) hours if needed for nausea or vomiting 30 tablet 2 01/18/2025 02/17/2025 ActiveStart: 06-01-2023 End: 75-57-8178destmnugljc ODT (Zofran-ODT) [address] ONE TABLET ON THE TONGUE AND ALLOW TODISSOLVE EVERY 6 HOURS NEEDED FOR 3 DAYS 06/02/2023 12/06/2024 Discontinuedpantoprazole 40 mg delayed release oral tablet (12 sources)Proton Pump InhibitorStart: 06-01-2023 End: 81-52-8425pzcitmzlfmwd (ProtoNix) 40 MG EC tablet Take 40 mg by mouth 06/01/2023 12/06/2024 DiscontinuedPrenatal 28-0.8 MG tablet (20 sources)take 1 tablet by mouth once dailyPrenatal 28-0.8 MG tablet Take 1 tablet by mouth Daily ActivePrenatal Vit-Fe Fumarate-FA ( Plus) 27-1 MG tablet (9 sources) End: 73-77-2523Uvlzfljl Vit-Fe Fumarate-FA ( Plus) 27-1 MG tablet 1 (one) time each day at the same time. 12/06/2024 DiscontinuedPrenatal Vit-Fe Fumarate-FA ( Plus) 27-1 MG tablet 1 (one) time each day at the same time. Active Problems Active Problems Problem ClassificationProblemDateDocumented DateEpisodic/ChronicAbdominal pain (12 sources)Unspecified abdominal pain; Translations: [Upper abdominal pain, unspecified]Onset: 62-83-1981MfscuyilCtbzdtey reactions (1 source)Allergy, unspecified, initial encounter; Translations: [ALLERGY UNSPECIFIED INITIAL ENCNTR]Onset: 27-61-2316JwempwhuBzhuhhy disorders (2 sources)Generalized anxiety disorder; Translations: [Generalized anxiety disorder]50-69-2400HkvbaitXzqzln (3 sources)Asthma; Translations: [Unspecified asthma, uncomplicated]Onset: 667266-14-7094IfmacjwBabuqxpke-godbwhz, conduct, and disruptive behavior disorders (20 sources)Attention deficit hyperactivity disorder; Translations: [Attention- deficit hyperactivity disorder, unspecified type]Onset: ChronicBiliary tract disease (5 sources)Biliary calculus; Translations: [Biliary colic]Onset: 09-27-2023 45-14-8220TwjahpwfJsqwdtgl; convulsions (1 source)Other epilepsy, not intractable, without status epilepticus; Translations: [OTH EPIL NOT INTRACTABLE WITHOUT SE]Onset: 86-59-9567Rbrwgwf Epilepsy; convulsions (7 sources)Unspecified convulsions; Translations: [UNSPECIFIED CONVULSIONS] Onset: 50-21-2039MdcbkrjjEddpjyrkqk disorders (1 source)Gastro-esophageal reflux disease without esophagitis; Translations: [GERD WITHOUT ESOPHAGITIS]Onset: 39-76-7134HfnvyznEhxgccbjjcnso symptoms and ill-defined conditions (20 sources)Nocturnal enuresis; Translations: [Nocturnal enuresis]Onset: 152847-10-8838UibzscbUxfygfqa; including migraine (20 sources)Migraine; Translations: [Migraine, unspecified, not intractable, without status migrainosus]Onset: 312553-61-3560CgymgrmUrywpfylfilbp and screening for infectious disease (2 sources)Exposure to sexually transmissible disorder; Translations: [Contact with and (suspected) exposure to infections with a predominantly sexual mode of transmission]09-51-4013MoxfxaupUiwumbptfksi diseases of female pelvic organs (2 sources)Bacterial vaginosis; Translations: [Acute vaginitis]03-20-2025 EpisodicMenstrual disorders (5 sources)Irregular menstruation, unspecified; Translations: [Missed period] Onset: 19-95-9058LednitsWmkhgpawknfxc mental health disorders (20 sources)Dissociative neurological symptom disorder; 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]Onset: 726483-13-2901MhjxdfpAgdwuby (2 sources)Mycosis; Translations: [Candidiasis, unspecified]09-49-2983Tpsxulvs Other aftercare (1 source)Other termite exterminator (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) drug therapy; Translations: [OTH LONG-TERM CURRENT DRUG THERAPY]Onset: 87-68-9612AoplwnlmTerqi complications of (2 sources)Maternal care for other specified problems, unspecified trimester, not applicable or unspecified; Translations: [MAT CARE OTH FTL PROB UNS TRI UNS]Onset: 67-35-7880YugpbjgyXbvaj complications of (2 sources)Maternal care for problem, unspecified, unspecified trimester, not applicable or unspecified;Translations: [MAT CARE FTL PROB UNS UNS TRI UNS] Onset: 28-85-4530LycpxyiuQegop complications of (4 sources)Maternal care for other known or suspected poor growth, third trimester, not applicable or unspecified; Translations: [MAT CARE OTH AK FTL GRTH 3RD TM UNS]Onset: 69-02-2793CtnygoecPnglt complications of (1 source)Smoking (tobacco) complicating , third trimester; Translations: [SMOKING TOBACCO COMP [id number] TRI]Onset: 73-12-5741DqtsicnuNsubw complications of (4 sources)Other specified related conditions, third trimester; Translations: [OTH SPEC PREG RELATEDCOND 3RD TRI]Onset: 91-06-8079AebuhajhXbaoa complications of (4 sources)Uterine size-date discrepancy, unspecified trimester; Translations: [UTERINE SZ-DATE DISCREPANCY UNS TRI]Onset: 97-32-2480JzdhfrkpQplgr complications of (2 sources) size does not accord with dates; Translations: [Uterine size- date discrepancy, unspecified trimester]15-41-7095SkqyqrgfNcyuv endocrine disorders (4 sources)Polycystic ovary syndrome; Translations: [Polycystic ovarian syndrome]14-90-5879WnkqzqtFobuc female genital disorders (2 sources)Vaginal discharge; Translations: [Other specified noninflammatory disorders of vagina]63-14-0777KtzkkxcgVdyea lower respiratory disease (3 sources)Shortness of breath; Translations: [SHORTNESS OF BREATH]Onset: 65-33-9766IglatcbcEzbfp and delivery including normal (20 sources)Encounter for supervision of normal , unspecified, third trimester; Translations: [Encounter for supervision of normal first , first trimester]Onset: 04-51-2594SxbuakauOrszm screening for suspected conditions (not mental disorders or infectious disease) (6 sources)Patient encounter status; Translations: [Encounter for other specified screening]30-03-5481EqblwnyyRagerzsh codes; unclassified (1 source)36 weeks gestation of ; Translations: [36 WEEKS GESTATION OF ]Onset: 85-97-5359DeatlqhgSssacoor codes; unclassified (1 source)Weeks of gestation of not specified; Translations: [WEEKS GESTATION NOT SPEC]Onset: 74-29-7221JnunrgccJmttruja codes; unclassified (1 source)35 weeks gestation of ; Translations: [35 WEEKS GESTATION OF ]Onset: 86-83-2666NmzzdpdcVsymeplp codes; unclassified (1 source)34 weeks gestation of ; Translations: [34 WEEKS GESTATION OF ]Onset: 99-28-7718OxaumkefNzjtsooh codes; unclassified (1 source)Acquired absence of other specified parts of digestive tract; Translations: [Acquired absence of other specified parts of digestive tract] Onset: 62-59-7077BavtmctnLccapfhg codes; unclassified (1 source)Pain, unspecified; Translations: [Pain, unspecified]Onset: 08-23-2023 EpisodicResidual codes; unclassified (2 sources)Gestation period, 12 weeks; Translations: [12 weeks gestation of ]67-82-6493XopasipwRdcwizfj codes; unclassified (4 sources)Personal history of other specified conditions; Translations: [Personal history of other specified diseases]92-01-1553FhlaiopdCfkxbobq codes; unclassified (2 sources)Gestation period, 16 weeks; Translations: [16 weeks gestation of ]61-88-5885ZljfgwtoLnrivhal codes; unclassified (2 sources)Gestation period, 20 weeks; Translations: [20 weeks gestation of ]00-42-1376LxgotetmXydmvmqh codes; unclassified (2 sources)Gestation period, 24 weeks; Translations: [24 weeks gestation of ]88-03-2987XlyeedffRphpijsc codes; unclassified (2 sources)Gestation period, 26 weeks; Translations: [26 weeks gestation of ]82-63-0645FfjqwwtqJwwgybuf codes; unclassified (2 sources)Gestation period, 28 weeks; Translations: [28 weeks gestation of ]17-08-5140OnnsvlxoGibsrdvm codes; unclassified (2 sources)Gestation period, 29 weeks; Translations: [29 weeks gestation of ]69-50-6715CpnolrexRnnzdhlm codes; unclassified (2 sources)Gestation period, 31 weeks; Translations: [31 weeks gestation of ]89-27-7981HvwoefwiEtrznaon codes; unclassified (2 sources)Gestation period, 33 weeks; Translations: [33 weeks gestation of ]45-73-6161TeqvcyfdIocbwzbhhwu; intervertebral disc disorders; other back problems (1 source)Degeneration of cervical intervertebral mrev16-46-1497Qemchwb Substance-related disorders (1 source)Nicotine dependence, cigarettes, uncomplicated; Translations: [NICOTINE DEPEND CIGARETTES UNCOMP]Onset: 86-35-1329RcwpnifOewauhyokclx (3 sources)CONTACT W/AND (SUSP) EXPOS COVID-19; Translations: [CONTACT W/AND (SUSP) EXPOS COVID-19]Onset: 81-45-9785Fqclrredvrpp (1 source)Post-opOnset: 97-70-6345Pxkhzgircwfs (1 source)CholelithiasisOnset: 77-33-6016Bbniopa tract infections (3 sources)Urinary tract infection, site not specified; Translations: [Urinary tract infectious disease]Onset: 249647-00-1419Cyiuslfb Past or Other Problems Problem ClassificationProblemDateDocumented DateEpisodic/Chronic Administrative/social admission (20 sources)Deterioration in school performance; Translations: [Other problems related to education and literacy]Onset: 119423-39-5420GcjmmyxpJvxtvhbgjd during ; abruptio placenta; placenta previa (5 sources)Hemorrhage in early , unspecified; Translations: [HEMORRHAGE EARLY UNS]Onset: 28-88-5028CfopapbzMxdqsb and vomiting (1 source)Nausea with vomiting, unspecified; Translations: [NAUSEA WITH VOMITING UNSPECIFIED]Onset: 20-38-4798SmcdyrjlQklla complications of (4 sources)Unspecified infection of urinary tract in , unspecified trimester; Translations: [UNS INF URINARY TRACT PREG UNS TRI]Onset: 08-25-2022 EpisodicOther complications of (1 source)Smoking (tobacco) complicating , first trimester; Translations: [SMOKING TOBACCO COMP RJTJ6VW TRI]Onset: 47-30-6287DgwzywyyQfxro complications of (1 source)Unspecified infection of urinary tract in , first trimester; Translations: [UNS INF URINARY TRACT PREG 1ST TRI]Onset: 67-09-5675TxpwuknaJqfks complications of (1 source)Other specified related conditions, first trimester; Translations: [OTH SPEC PREG RELATEDCOND 1ST TRI]Onset: 90-27-8758NvkuqtibUcejk complications of (4 sources)Other specified related conditions, unspecified trimester; Translations: [OTH SPEC PREG RELATED COND UNS TRI]Onset: 48-65-0171SorhsfniOrixu complications of (1 source)Smoking (tobacco) complicating , unspecified trimester; Translations: [SMOKING TOBACCO COMP PREG UNS TRI]Onset: 44-24-2050VcesezxuQwwgd upper respiratory infections (1 source)Acute sinusitis, unspecified; Translations: [ACUTE SINUSITIS UNSPECIFIED]Onset: 42-98-8727MdwbxhssRwyzeayq codes; unclassified (1 source)8 weeks gestation of ; Translations: [8 WEEKS GESTATION OF ]Onset: 75-87-9017QzesprvtPkojklxj codes; unclassified (1 source)Less than 8 weeks gestation of ; Translations: [< 8 WEEKS GESTATION ]Onset: 20-26-0136YazihxnnOszrjbg (1 source)Syncope and collapse; Translations: [SYNCOPE AND COLLAPSE]Onset: 65-28-8869ZzyjzvsuWmgoaphazfbr (1 source)CONTACT W/AND (SUSP) EXPOS COVID-19; Translations: [CONTACT W/AND (SUSP) EXPOS COVID-19]Onset: 06-25-2022 Results Test NameValueInterpretationReference RangeFacilityUrinalysis macro (dipstick) panel (U)on 37-16-6194Gvnfwokjv, UANegativeNegative - 4(70) +++ mg/dLNOMS HealthcareBlood, UANegativeNegative - 50 Blayne/mcLNOMS HealthcareClarity, UAClear NOMS HealthcareColor, UAYellowNOMS HealthcareGlucose, UANegativeNegative - 1999(110) ++++ mg/dLNOMS HealthcareInterpretation and review of laboratory resultsAbnormalNOMS HealthcareKetones, UAPositiveNegative - 160(16) ++++ mg/dL [facility] HealthcareLeukocytes, UA3+Negative - 500+++ Jo/mcLNOMS HealthcareNitrite, UANegativeNegative - PositiveNOMS HealthcarepH, UA6.05 - 9N[facility] Protein, UANegativeNegative - 1999(20) ++++ mg/dLNOMS HealthcareSpec Grav, UA 1.0151 - 1.03NOMS HealthcareUrobilinogen, UA1.00.2 - 12 mg/dLNOMS HealthcareNOMS HealthcareUrinalysis macro (dipstick) panel (U)on 90-81-9423Larkvmawj, UA NegativeNegative - 4(70) +++ mg/dLNOMS HealthcareBlood, UANegativeNegative - 50 Blayne/mcLNOMS HealthcareClarity, UAClearNOMS HealthcareColor, UAYellowNOMS HealthcareGlucose, UANegativeNegative - 2000(110) ++++ mg/dLNOMS Healthcare Interpretation and review of laboratory resultsAbnormalNOMS HealthcareKetones, UANegativeNegative - 160(16) ++++ mg/dLNOMS HealthcareLeukocytes, UA1+Negative - 500+++ Jo/mcLNOMS HealthcareNitrite, UANegativeNegative - PositiveNOMS HealthcarepH, UA65 - 9NOMS HealthcareProtein, UATraceNegative - 1999(20) ++++ mg/dLCrossroads Regional Medical CenterSpec Grav, UA1.031 - 1.03NOVA HealthcareUrobilinogen, UA2.0 0.2 - 12 mg/dLFulton Medical Center- Fulton HealthcareALL CBC WITH AUTO DIFFon 04-30-2025 BASOPHILS ABSOLUTE JSUR4LKIF HealthcareBasophils/100 WBC (Bld)0.3 %0.2 - 2.0 % [facility] CenterEosinophils/100 WBC (Bld)0.9 %0.9 - 7.0 %[facility] Erythrocyte distribution width (RBC) [Ratio]11.9 %11.0 - 15.0 %[facility] Hematocrit (Bld) [Volume fraction]34.5 %Low36.0 - 48.0 %[facility] Hemoglobin (Bld) [Mass/Vol]12.6 g/dL12.0 - 16.0 g/dLCrossroads Regional Medical CenterIMMATURE GRANULOCYTES ABS AUTO0.17HighCrossroads Regional Medical CenterImmature granulocytes/100 WBC (Bld) 1.8 %High0.0 - 0.5 %[facility] CenterInterpretation and review of laboratory resultsAbnormalCrossroads Regional Medical CenterLYMPHOCYTES ABSOLUTE AUTO1.7[facility] Lymphocytes/100 WBC (Bld)17.7 %Low20.5 - 60.0 %[facility] (RBC) [Entitic mass]32 pg26.7 - 34.0 pgNortheast Regional Medical CenterHC (RBC) [Mass/Vol]36.5 g/oHNxtv17.9 - 35.2 g/dLNortheast Regional Medical CenterV (RBC) [Entitic vol]87.6 fL81.0 - 99.0 fLCrossroads Regional Medical CenterMONOCYTES ABSOLUTE AUTO0.9HighCrossroads Regional Medical CenterMonocytes/100 WBC (Bld)9 %1.7 - 12.0 %[facility] CenterNEUTROPHILS ABSOLUTE AUTO6.8HighCrossroads Regional Medical Center Neutrophils/100 WBC (Bld)70.3 %43.0 - 75.0 %[facility] CenterPlatelet mean volume (Bld) [Entitic vol]11.3 fL9.5 - 13.[address] EO #0.1N[facility] Healthcare TBH BYN008GYABMosaic [facility] RBC3.94LowNOMosaic Life Care at St. Joseph WBC9.7[facility] CLINISYNCNOVA HealthcareUrinalysis macro (dipstick) panel (U)on 04-29-2025 Bilirubin, UANegativeNegative - 4(70) +++ mg/dLNOMS HealthcareBlood, UANegative Negative - 50 Blayne/mcLNOMS HealthcareClarity, UAClearNOMS HealthcareColor, UA YellowNOMS HealthcareGlucose, UANegativeNegative - 1999(110) ++++ mg/dLNOVA HealthcareInterpretation and review of laboratory resultsNormalLONE PEAK [facility] Healthcare Ketones, UANegativeNegative - 160(16) ++++ mg/dLNOMS HealthcareLeukocytes, UA NegativeNegative - 500+++ Jo/mcLNOVA HealthcareNitrite, UANegativeNegative - PositiveNOMS HealthcarepH, UA65 - 9NOMS HealthcareProtein, UA1+Negative - 2000(20) ++++ mg/dLNOMS HealthcareSpec Grav, UA1.021 - 1.03[facility] Healthcare Urobilinogen, UA1.00.2 - 12 mg/dLFulton Medical Center- Fulton HealthcareUrinalysis macro (dipstick) panel (U)on 42-67-7913Lvbemocdo, UANegativeNegative - 4(70) +++ mg/dL [facility] HealthcareBlood, UANegativeNegative - 50 Blayne/mcLNOMS HealthcareClarity, UA ClearNOMS HealthcareColor, UAYellowNOMS HealthcareGlucose, UANegativeNegative - 1999(110) ++++ mg/dLNOVA HealthcareInterpretation and review of laboratory resultsNormalLONE PEAK HOS[facility]ITAL HealthcareKetones, UANegativeNegative - 160(16) ++++ mg/dLNOMS HealthcareLeukocytes, UANegativeNegative - 500+++ Jo/[facility] HealthcareNitrite, UANegativeNegative - PositiveNOVA HealthcarepH, UA65 - 9NOMS HealthcareProtein, UANegativeNegative - 2000(20) ++++ mg/dLNOMS HealthcareSpec Grav, UA1.021 - 1.03 [facility] HealthcareUrobilinogen, UA0.20.2 - 12 mg/dLFulton Medical Center- Fulton Healthcare Urinalysis macro (dipstick) panel (U)on 20-54-9747Iiefsaosg, UANegativeNegative - 4(70) +++ mg/dLNOMS HealthcareBlood, UANegativeNegative - 50 Blayne/mcLNOMS HealthcareClarity, UAClearNOMS HealthcareColor, UAYellowNOMS HealthcareGlucose, UANegativeNegative - 2000(110) ++++ mg/dLNOMS HealthcareInterpretation and review of laboratory resultsAbnormalNOMS HealthcareKetones, UANegativeNegative - 160(16) ++++ mg/dLNOMS HealthcareLeukocytes, UAPositiveNegative - 500+++ Jo/mcL N[facility]S HealthcareComment on above:2+Nitrite, UANegativeNegative - PositiveNOMS HealthcarepH, UA65 - 9NOM[facility] HealthcareProtein, UANegativeNegative - 2000(20) ++++ mg/dLNOMS HealthcareSpec Grav, UA1.0251 - 1.03N[facility]S HealthcareUrobilinogen, UA0.2 0.2 - 12 mg/dLNOMS HealthcareNOMS HealthcareUS OB 14+ WEEKS ANATOMY SCANon 03-65-9167TL OB 14+ WEEKS ANATOMY SCANEXAM: US OB 14+ WEEKS ANATOMY SCAN HISTORY: [...] II, MD, PHD at 26-Feb-2025 07:25:53 AM [facility] TeleradiologyNormalNot AvailableComment on above:Order Comment: US OB ANATOMY SINGLE W US OB CERVICAL LENGTH Estimated Date of Delivery: 07/10/25 Gestational Age as of 01/29/2025: 98g9rOtjcwopvfw macro (dipstick) panel (U)on 68-04-3086Ddlwxeufx, UANegativeNegative - 4(70) +++ mg/dLNOMS HealthcareBlood, UANegativeNegative - 50 Blayne/mcLNOMS HealthcareClarity, UAClearNOMS Healthcare Color, UAYellowNOMS HealthcareGlucose, UANegativeNegative - 2000(110) ++++ mg/dL [facility] HealthcareInterpretation and review of laboratory resultsNormalNOMS HealthcareKetones, UAPositiveNegative - 160(16) ++++ mg/dLN[facility]S Healthcare Leukocytes, UANegativeNegative - 500+++ Jo/mcLNOMS HealthcareNitrite, UA NegativeNegative - PositiveNOMS HealthcarepH, UA6.55 - 9NOM[facility] HealthcareProtein, UANegativeNegative - 2000(20) ++++ mg/dLNOMS HealthcareSpec Grav, UA1.1 - 1.03NOMS HealthcareUrobilinogen, UA1.00.2 - 12 mg/dLNOMS HealthcareNOMS HealthcareIGP,APTIMA HPV,AGE GDLNon 90-56-8431UJH GDLN ACOG TESTINGNote.[facility] HealthcareComment on above:TESTS RESULT FLAG UNITS REF RANGE LAB Clinician Provided Cytology Information Source.............Cervix No. of containers..01 ThinPrep Vial Age Williamo RAMONA Audra... FLAG LEGEND: L-Low Normal,H-High Normal,LL-Alert Low,HH-Alert High <-Panic Low,>-Panic High,A-Abnormal,AA-Critical Abnormal Performed at: 01 =[address] [address] Meseret Eden MD, IGP, RFX APTIMA HPV ASCUNote.[facility] HealthcareComment on above:TESTS RESULT FLAG UNITS REF RANGE LAB DIAGNOSIS: 02 NEGATIVE FOR INTRAEPITHELIAL LESION OR MALIGNANCY. FUNGAL ORGANISMS MORPHOLOGICALLY CONSISTENT WITH POLY SPECIES ARE PRESENT. THIS SPECIMEN WAS RESCREENED PART OF OUR DJAN[employer] DEVELOPER PROGRAM. Specimen adequacy: 02 Satisfactory for evaluation. No endocervical component is identified. Performed by: 02 Barbie Ceja, It Consulting Director (ASCP) QC reviewed by: 02 Rhea Hoffmann It Consulting Director (ASCP) . 02 Note: Note 02 The Pap [...] <-Panic Low,>-Panic High,A-Abnormal,AA-Critical Abnormal Performed at: [address] [address] Meseret Eden MD, Performed at: = - [facility] [address] [id number] Or[place] Sprayer: Meseret Eden MD, Phone: [phone] Performed at: [facility] [address] [id number] [place] Sprayer: Meseret Eden MD, Phone: [phone] SPATULA-ALONE CERVIX CLINISYNCNOMS HealthcareRECURRENT VAGINITIS (HTRX)on 07-86-0256SKTSOUOOR VAGINAE 26.856AbnormalNOMS HealthcareATOPOBIUM VAGINAEDetectedAbnormalNOMS Healthcare BVAB 2,3 (BACTERIAL VAGINOSIS ASSOCIATED BACTERIA 2, 3); MOBILUNCUS SPP25.681 AbnormalNOMS HealthcareBVAB 2,3 (BACTERIAL VAGINOSIS ASSOCIATED BACTERIA 2, 3); MOBILUNCUS SPPDetectedAbnormalNOMS HealthcareCANDIDA ALBICANS, PARAPSILOSIS, BLXJYVEUBK8EYBA HealthcareCANDIDA ALBICANS, PARAPSILOSIS, TROPICALISNot detected NOMS HealthcareCANDIDA LOQUPBRQ4CPVV HealthcareCANDIDA GLABRATANot detectedNOMS HealthcareCANDIDA AFPTAL2OYKQ HealthcareCANDIDA KRUSEINot detectedNOMS HealthcareCHLAMYDIA PDYGGOJIAPE0MYCG HealthcareCHLAMYDIA TRACHOMATISNot detected NOMS HealthcareERMB, C; MEFA18.156AbnormalNOMS HealthcareERMB, C; MEFADetected AbnormalNOMS HealthcareGARDNERELLA DEYOADFKQ10.184AbnormalNOMS Healthcare GARDNERELLA VAGINALISDetectedAbnormalNOMS HealthcareInterpretation and review of laboratory resultsAbnormalNOMS HealthcareMEGASPHAERA (TYPES 1, 2)0NOMS HealthcareMEGASPHAERA (TYPES 1, 2)Not detectedNOMS HealthcareMYCOPLASMA UYEJFERBXG4NFCH HealthcareMYCOPLASMA GENITALIUMNot detectedNOMS Healthcare NEISSERIA SUCRUUZWUST1GZTX HealthcareNEISSERIA GONORRHOEAENot detectedNOMS HealthcareTET B, TET M19.057AbnormalNOMS HealthcareTET B, TET MDetectedAbnormal NOMS HealthcareTRICHOMONAS YKGPQFLBL4THWI HealthcareTRICHOMONAS VAGINALISNot detectedNOMS HealthcareNOVA HealthcareBOX TESTon 11-70-8814OES TEST SENT OUT UNITYNOVA DurejfzraxXTC0CMTBLQIGN NqihwnximjPOG796/02/2025NOVA HealthcareUNITY BOX CLINISYNCNOVA HealthcareHCG ( test) Ql (U)on 92-39-0185Mjjfavmevakiuw and review of laboratory resultsAbnormalNOVA HealthcarePreg Test, UrPositive NegativeNOVA HealthcareNOVA HealthcareUS OB TRANSVAGINALon 79-37-0754HS OB TRANSVAGINALEXAM: US OB TRANSVAGINAL HISTORY: Dating. Beta HCG [...] II, MD, PHD at 09-Dec-2024 08:55:08 PM [facility] TeleradiologyNormalNot AvailableComment on above:Order Comment: US OB TRANSVAGINAL No LMP recorded.Urinalysis macro (dipstick) panel (U)on 47-84-5605Yhpfdlgkw, UA NegativeNegative - 4(70) +++ mg/dLNOMS HealthcareBlood, UAPositiveNegative - 50 Blayne/mcLNOMS HealthcareComment on above:trace-intactClarity, UAClearNOMS HealthcareColor, UAYellowNOMS HealthcareGlucose, UANegativeNegative - 2000(110) ++++ mg/dLNOMS HealthcareInterpretation and review of laboratory resultsAbnormal NOMS HealthcareKetones, UANegativeNegative - 160(16) ++++ mg/dLNOMS Healthcare Leukocytes, UATraceNegative - 500+++ Jo/mcLNOMS HealthcareNitrite, UANegative Negative - PositiveNOMS HealthcarepH, UA65 - 9NOMS HealthcareProtein, UANegative Negative - 2000(20) ++++ mg/dLNOMS HealthcareSpec Grav, UA1.021 - 1.03NOMS HealthcareUrobilinogen, UA0.20.2 - 12 mg/dLNOMS HealthcareNOMS HealthcareTBH PREG QUANT HCGon 08-02-2245GUU MNMGQYVYROAY005oKP/mLNOMS HealthcareComment on above:5-50 0.2-1 WEEK 50-500 1-2 WEEKS 100-5,000 2-3 WEEKS 500-10,000 3-4 WEEKS 1,000-50,000 4-5 WEEKS 10,000-100,000 5-6 WEEKS 15,000-200,000 6-8 WEEKS 10,000-100,000 2-3 MONTHS CLINISYNCCrossroads Regional Medical CenterALL CBC WITH AUTO DIFFon 53-93-7550TBSSTIJZB ABSOLUTE AUTO0.1NOMS HealthcareBasophils/100 WBC (Bld)0.7 %0.2 - 2.0 %[facility] Eosinophils/100 WBC (Bld)4.9 %0.9 - 7.0 %[facility] CenterErythrocyte distribution width (RBC) [Ratio]11.8 %11.0 - 15.0 %[facility] CenterHematocrit (Bld) [Volume fraction]44.7 %36.0 - 48.0 %[facility] CenterHemoglobin (Bld) [Mass/Vol]15.7 g/dL 12.0 - 16.0 g/dLCrossroads Regional Medical CenterIMMATURE GRANULOCYTES ABS AUTO0.02NOBarnes-Jewish Hospital Immature granulocytes/100 WBC (Bld)0.3 %0.0 - 0.5 %[facility] CenterLYMPHOCYTES ABSOLUTE AUTO3.1NOMS Barnesville HospitalLymphocytes/100 WBC (Bld)42 %20.5 - 60.0 %[facility] CenterH (RBC) [Entitic mass]29.5 pg26.7 - 34.0 pgNortheast Regional Medical CenterHC (RBC) [Mass/Vol]35.1 g/dL29.9 - 35.2 g/dLNortheast Regional Medical CenterV (RBC) [Entitic vol]84 fL 81.0 - 99.0 fLCrossroads Regional Medical CenterMONOCYTES ABSOLUTE AUTO0.5NOBarnes-Jewish Hospital Monocytes/100 WBC (Bld)7.3 %1.7 - 12.0 %[facility] CenterNEUTROPHILS ABSOLUTE AUTO 3.3NOMS Barnesville HospitalNeutrophils/100 WBC (Bld)44.8 %43.0 - 75.0 %[facility] Platelet mean volume (Bld) [Entitic vol]11.7 fL9.5 - 13.5 fLCrossroads Regional Medical CenterTB EO #0.4NOMS HealthcareTBH CKN242PLJM HealthcareTBH RBC5.32NOMS HealthcareTBH WBC 7.3NOMS HealthcareCLINISYNCNOMS HealthcareHCG ( test) Ql (U)on 06-66-7237Uhoe HCG ( test) Ql (U)NegativeNormalNEGProMedica Sutter Roseville Medical CenterComment on above:Performed By: #### 2106-3 #### [facility] ([id number]) [address] [place] [address], FIRST FLOOR [place], [place] [address]Kpjqzqxs Pathologyon 29-16-3598Gmehhvau PathologyNormal [facility] DaytonComment on above:Result Comment: [facility] [address] [place] [address] Surgical Pathology Consultation Patient Name:KEMI PIPER:2005 (Age: 18)Gender:FTaken:4Reported:10/06/2023hysician(s):Alo Morgan MD ([phone])Copy To: Rec. #:[id number]: #[id number] Final Pathologic Diagnosis Gallbladder, cholecystectomy: - Chronic cholecystitis and cholesterolosis. - Benign reactive lymph node. Report Electronically Signed Out eak/10/06/2023Serena Quintanilla MD Interpretation performed at [facility], [address] [place] [address], License number: [id number]. Clinical History Biliary colic. Gross Description Received [...] is mcbride-green and velvety with a mcbride-yellow polypoid- like projection within the body, 0.3 cm in greatest dimension. The wall of the gallbladder ranges from 0.1 to 0.2 cm in thickness. The contents of the specimen jar are filtered and no calculi are identified. The cystic duct margin, bisected lymph node and a employment representative section of the gallbladder neck aresubmitted in cassette A with additional sections from the gallbladder are submitted in cassette B (to include polypoid like projection). (2, ss, K96-0118, A???B, m2) [facility]/10/04/2023EAK Specimen(s) Received Gallbladder Fee Codes(s): 1; 40[address]KXTHK METABOLIC PANLon 53-60-6990Nmhtx gap [Moles/Vol]7 mmol/LNormal5-15 [facility] DaytonComment on above:Performed By: #### CBCA BMP, LIVR #### [facility] ([id number]) [address] [address] [place], [place] [address]Hoppshj [Mass/Vol]9.0 mg/dLNormal8.5-10.5PSt. Mary's Medical Center, Ironton CampusComment on above:Performed By: #### CBCA BMP, LIVR #### [facility] ([id number]) [address], [address] [place], [place] [address]Uxatcioc [Moles/Vol]109 mmol/WXtoovs15-941OvqByraofKindred Hospital DaytonComment on above:Performed By: #### CBCA BMP, LIVR #### [facility] ([id number]) [address] [address] [address] [place], [place] [address]BN1 [Moles/Vol]27 mmol/SSbdnrk62-95UvrVjyqylSt. Mary's Medical Center, [facility] Campus Comment on above:Performed By: #### CBCA, BMP, LIVR #### [facility] ([id number]) [address] [address] [place], [place] [address]Nylsdlogkh [Mass/Vol]0.98 mg/dLNormal0.40-1.00[facility]red Hospital DaytonComment on above:Result Comment: METHOD TRACEABLE TO IDMS STANDARD Performed By: #### CBCA, BMP, LIVR #### [facility] ([id number]) [address], [address] [place], [place] [address]ZCK/1.73 sq M.predicted among non-blacks MDRD (S/P/Bld) [Vol rate/Area]85 mL/min/{1.73_m2}Normal>59ProHca Houston Healthcare WestComment on above:Result Comment: Reported eGFR is based on the CKD-EPI 2020 equation that does not use a race coefficient.Performed By: #### DEANGELO OLIVERA, LIVR #### [facility] ([id number]) [address], [address] [place], [place] [address]Ryosnyh [Mass/Vol]82 mg/iASalmzc47-51RxgTsvkhtHca Houston Healthcare West Comment on above:Performed By: #### DEANGELO OLIVERA, LIVR #### [facility] ([id number]) [address], [address] [place], [place] [address]Wzvxxcfyt [Moles/Vol]4.0 mmol/LNormal3.5-5.0ProHca Houston Healthcare WestComment on above:Performed By: #### DEANGELO OLIVERA, LIVR #### [facility] ([id number]) [address], [address] [place], [place] [address]Uehkmc [Moles/Vol]143 mmol/ELouunc653-583SdzMegrct Fremont HospitalComment on above:Performed By: #### DEANGELO OLIVERA, LIVR #### [facility] ([id number]) [address], [address] [place], [place] [address]Pcka nitrogen [Mass/Vol]7 mg/dLNormal5-23ProHca Houston Healthcare WestComment on above:Performed By: #### DEANGELO OLIVERA, LIVR #### [facility] ([id number]) [address], [address] [place], [place] [address]Pidru Metabolic Panelon 98-88-2082Uomhd gap [Moles/Vol]7 mmol/L5 - 15 mmol/LProMedica Health SystemCalcium [Mass/Vol]9.0 mg/dL8.5 - 10.5 mg/dL ProMMurray County Medical Center SystemChloride [Moles/Vol]109 mmol/L98 - 109 mmol/[facility] Health SystemCO2 [Moles/Vol]27 mmol/L22 - 32 mmol/[facility] System Creatinine [Mass/Vol]0.98 mg/dL0.40 - 1.00 mg/dLAvita Health System Bucyrus HospitalComment on above:METHOD TRACEABLE TO IDVA STANDARDeGFR (CKD-EPI)non-race hpxafdava20- PINCenterPointe HospitalComment on above: Reported eGFR is based on the CKD-EPI 2020 equation that does not use a race coefficient. Glucose [Mass/Vol]82 mg/dL65 - 99 mg/dLAvita Health System Bucyrus HospitalPotassium [Moles/Vol]4.0 mmol/L3.5 - 5.0 mmol/[facility] Health SystemSodium [Moles/Vol] 143 mmol/L134 - 146 mmol/[facility] SystemUrea nitrogen [Mass/Vol]7 mg/dL 5 - 23 mg/dLAvita Health System Bucyrus HospitalCBC AND AUTO DIFFon 80-07-7239QTFHIHAD BASOPHIL0.0 X10E9/LNormal0.0-0.2PSt. Mary's Medical Center, Ironton CampusComment on above: Performed By: #### CBCDEANGELO Alegria, LIVR #### [facility] ([id number]) [address], [address] [place], [place] [address]XJDVDHFE NEUTROPHIL2.8 X10E9/LNormal1.5-6.6[facility]red Hospital DaytonComment on above:Performed By: #### CBCA BMP, LIVR #### [facility] ([id number]) [address], [address] [place], [place] [address]Fbqfvnidg/100 WBC (Bld)0.6 %NormalKindred Hospital Dayton Comment on above:Performed By: #### CBCA BMP, LIVR #### [facility] ([id number]) [address], [address] [place], [place] [address]Xruyumlugkz (Bld) [#/Vol]0.2 10*3/uLNormal0.0-0.4ProHca Houston Healthcare WestComment on above:Performed By: #### CBCA, BMP, LIVR #### [facility] ([id number]) [address], [address] [place] [address]Dotqfnvbtoe/100 WBC (Bld)2.8 %NormalProHca Houston Healthcare West Comment on above:Performed By: #### CBCA, BMP, LIVR #### [facility] ([id number]) [address] [address] [place], [place] [address]Pkhvhgzivog distribution width (RBC) [Ratio]12.2 %Normal 11.5-15.0Kindred Hospital DaytonComment on above:Performed By: #### CBCA, BMP, LIVR #### [facility] ([id number]) [address], [address] [place], [place] [address]Eqnmrykslx (Bld) [Volume fraction]39.7 %Jrgpbj05-05ClrWzfgbcHca Houston Healthcare WestComment on above:Performed By: #### CBCA, BMP, LIVR #### [facility] ([id number]) [address] [address] [place], [place] [address]Ilbvoitmtp (Bld) [Mass/Vol]13.6 g/eVCoodjl12.7-15.5PSt. Mary's Medical Center, Ironton CampusComment on above:Performed By: #### CBCA, BMP, LIVR #### [facility] ([id number]) [address] [address] [place], [place] [address]Xxegdbfdgoe (Bld) [#/Vol]2.2 10*3/uLNormal1.0-3.5PSt. Mary's Medical Center, Iront[facility] CampusComment on above:Performed By: #### CBCA, BMP, LIVR #### [facility] ([id number]) [address], [address] [place], [place] [address]Oplqgsqbhzr/100 WBC (Bld)38.4 %[facility] Comment on above:Performed By: #### CBCA, BMP, LIVR #### [facility] ([id number]) [address], [address] [place], [place] [address]AKX (RBC) [Entitic mass]29.6 nvMzyznb43-24JkdMsjjpsHca Houston Healthcare WestComment on above:Performed By: #### CBCA, BMP, LIVR #### [facility] ([id number]) [address], [address] [place], [place] [address]FGRE (RBC) [Mass/Vol]34.3 g/qGMhjcuv93-73BlxHfrcavKindred Hospital DaytonComment on above:Performed By: #### CBCA, BMP, LIVR #### [facility] ([id number]) [address], [address] [place], [place] [address]BGR (RBC) [Entitic vol]87 eYQpoyhi13-455AcwWrkqkiKindred Hospital DaytonComment on above:Performed By: #### CBCA, BMP, LIVR #### [facility] ([id number]) [address], [address] [place], [place] [address]Zybdkyuwe (Bld) [#/Vol]0.5 10*3/uLNormal0-0.9[facility]red Hospital DaytonComment on above:Performed By: #### CBCA, BMP, LIVR #### [facility] ([id number]) [address], [address] [place], [place] [address]Vawsqbovi/100 WBC (Bld)9.2 %[facility] Comment on above:Performed By: #### CBCA, BMP, LIVR #### [facility] ([id number]) [address], [address] [place], [place] [address]Ytzkbojykgr/100 WBC (Bld)49.0 %[facility] Comment on above:Performed By: #### CBCAiram, BMP, LIVR #### [facility] ([id number]) [address], [address] [place], [place] [address]Kyyihaen mean volume (Bld) [Entitic vol]10.8 fLNormal7-12 [facility] Hospital DaytonComment on above:Performed By: #### CBCAiram, BMP, LIVR #### [facility] ([id number]) [address], [address] [place] [address]Ygpdqadpc (Bld) [#/Vol]212 10*3/aHRjhsky114-948QjgAcunccKindred Hospital DaytonComment on above:Performed By: #### CBCAiram, BMP, LIVR #### [facility] ([id number]) [address] [address]TRC COUNT4.60 X10E12/LNormal3.80-5.20[facility] Comment on above:Performed By: #### CBCAiram, BMP, LIVR #### [facility] ([id number]) [address], [address] [address]T (Bld) [#/Vol]5.7 10*3/uLNormal4.0-11.0[facility]red Hospital DaytonComment on above:Performed By: #### CBCAiram, BMP, LIVR #### [facility] ([id number]) [address], [address] [place] [address]IDG auto differentialon 92-85-2460Ijsdbebxn (Bld) [#/Vol]0.0 10*3/uLProMedica Health SystemBasophils/100 WBC (Bld)0.6 %ProMedica Health SystemEosinophils (Bld) [#/Vol]0.2 10*3/uLProMedica Health SystemEosinophils/100 WBC (Bld)2.8 %ProMedica Health SystemErythrocyte distribution width (RBC) [Ratio]12.2 %11.5 - 15.0 %[facility] Bucyrus HospitalHematocrit (Bld) [Volume fraction]39.7 %35 - 47 %[facility] Bucyrus HospitalHemoglobin (Bld) [Mass/Vol]13.6 g/dL11.7 - 15.5 g/dLAvita Health System Bucyrus HospitalLymphocytes (Bld) [#/Vol]2.2 10*3/uL [facility] HospitalLymphocytes/100 WBC (Bld)38.4 %[facility] WestH (RBC) [Entitic mass]29.6 pg27 - 34 pgPWayne HealthCare Main CampusMCHC (RBC) [Mass/Vol]34.3 g/dL32 - 36 g/dLAvita Health System Bucyrus HospitalMCV (RBC) [Entitic vol]87 fL80 - 100 [facility] VA Medical CenterMonocytes (Bld) [#/Vol]0.5 10*3/uLAvita Health System Bucyrus HospitalMonocytes/100 WBC (Bld)9.2 %[facility] Bucyrus HospitalNeutrophils (Bld) [#/Vol]2.8 10*3/uLAvita Health System Bucyrus HospitalNeutrophils/100 WBC (Bld)49.0 % [facility] Bucyrus HospitalPlatelet mean volume (Bld) [Entitic vol]10.8 fL7 - 12 fL [facility] Bucyrus HospitalPlatelets (Bld) [#/Vol]212 10*3/uLAvita Health System Bucyrus Hospital RBC (Bld) [#/Vol]4.60 10*6/[facility]ott Children's HospitalWBC corrected for nucl RBC Auto (Bld) [#/Vol]5.7SCI-Waymart Forensic Treatment CenterECG 12 leadon 29-51-8264SSGRKYCZFJUUVZOauMxzwwd Health SystemLIVER PANELon 25-26-9554Ouquoht [Mass/Vol]4.4 g/dLNormal3.2-5.3PSt. Mary's Medical Center, Ironton CampusComment on above: Performed By: #### CBCA, BMP, LIVR #### [facility] ([id number]) [address] [facility] [facility], [address] [place], [place] [address]RCE [Catalytic activity/Vol]65 U/BNlogod20-609XomOszfus Fremont HospitalComment on above:Performed By: #### DEANGELO OLIVERA, LIVR #### [facility] ([id number]) [address] [place] [address]UQW [Catalytic activity/Vol]18 U/LNormal0-31PSt. Mary's Medical Center, Ironton CampusComment on above:Performed By: #### JAROD BMP, LIVR #### [facility] ([id number]) [address] [place] [address]PVW [Catalytic activity/Vol]16 U/LNormal0-41ProHca Houston Healthcare WestComment on above:Performed By: #### DEANGELO OLIVERA, LIVR #### [facility] ([id number]) [address] [place], [place] [address]Dyeqtyywn [Mass/Vol]0.5 mg/dLNormal0.3-1.2PSt. Mary's Medical Center, Ironton CampusComment on above:Performed By: #### DEANGELO OLIVERA, LIVR #### [facility] ([id number]) [address] [facility] [address] [place], [place] [address]Lhyexsruo.direct [Mass/Vol]0.2 mg/dLNormal0.0-0.4[facility] Hospital DaytonComment on above:Performed By: #### DEANGELO OLIVERA, LIVR #### [facility] ([id number]) [address] [place], [place] [address]Qykahtf [Mass/Vol]6.6 g/dLNormal6.0-8.0ProHca Houston Healthcare WestComment on above:Performed By: #### JAROD BMP, LIVR #### [facility] ([id number]) [address] [place] [address]Lcinz panelon 94-29-8452Skqqzrr [Mass/Vol]4.4 g/dL3.2 - 5.3 g/dL [facility] SystemALP [Catalytic activity/Vol]65 U/L39 - 130 U/LPrGood Samaritan Medical Center Health SystemALT No additional P-5'-P [Catalytic activity/Vol]18 U/L0 - 31 U/L ProMdecatur morgan hospital-parkway campus Health SystemAST [Catalytic activity/Vol]16 U/L0 - 41 U/LPrCleveland Clinic Hillcrest Hospital SystemBilirubin [Mass/Vol]0.5 mg/dL0.3 - 1.2 mg/dLAvita Health System Bucy[facility] Hospital Bilirubin.direct [Mass/Vol]0.2 mg/dL0.0 - 0.4 mg/dLAvita Health System [facility] Hospital Protein [Mass/Vol]6.6 g/dL6.0 - 8.0 g/dLAvita Health System Bucyrus HospitalNo Panel Informationon 78-96-7490GcrKtbunbWayne HealthCare Main CampusXR Chest PA and Lateralon 94-29-3207KkcfsxUmesh Bolaños MD - 09/28/2023 Procedure: Chest x-ray performed Number of views:2 History:Preop asthma Comparison:None Findings: The heart and lungs show no acute findings, and the mediastinum and manasa are grossly negative . Impression: 1. No acute change. Finalized by Umesh Bolaños MD on 09/28/2023 10:05 AM [facility] Bucyrus HospitalRadiology Study observation (narrative)[facility] Bucyrus HospitalXR Chest PA and LateralOrdered By: Umesh Bolaños on 68-96-6651UosYgiiua[address] [place] [address] Work Phone: Basic Metab w/rfx MGon 10-97-4978Ynbqz gap [Moles/Vol] 8 mmol/LLow9-17[facility] Geauga Medical CenterComment on above:Performed By: #### BMPX, CDP #### [facility] [address] [place] [id number] Or[place] Sprayer: Quirino Valladares MDCalcium [Mass/Vol]8.3 mg/dLLow8.6-10.4[facility]aug[facility] Medical CenterComment on above:Performed By: #### BMPX, CDP #### [facility] [address] [place] [address] Or[place] Sprayer: CHUY Johnsonhloride [Moles/Vol]107 mmol/GAdxjxu64-325MacxsUniversity Hospitals Geauga Medical CenterComment on above:Performed By: #### BMPX, CDP #### [facility] [address] [place] [address] Or[place] Sprayer: Quirino Valladares MDCO2 [Moles/Vol]24 mmol/IMmshxq03-56EctyfUniversity Hospitals Geauga Medical CenterComment on above:Performed By: #### BMPX, CDP #### [facility] [address] [place] [address] Or[place] Sprayer: CHUY Johnsonreatinine [Mass/Vol]0.9 mg/dLNormal0.5-0.9[facility] Medical CenterComment on above:Performed By: #### BMPX, CDP #### [facility] [address] [place] [address] Or[place] Sprayer: Quirino Valladares MDGFR/1.73 sq M.predicted among non-blacks MDRD (S/P/Bld) [Vol rate/Area]mL/min/{1.73_m2}Normal>60[facility] Medical CenterComment on above:Result Comment: These results are not intended for [...] or following therapy that affects renal tubular secretion.Performed By: #### BMPX, CDP #### [facility] [address] [place] [address] Orchard Sprayer: Quirino Valladares MDGlucose [Mass/Vol]88 mg/wRKuflaf08-63SogqkOrange County Global Medical CenterComment on above:Performed By: #### BMPX, CDP #### [facility] [address] [place] [address] Orchard Sprayer: BILL Johnsonotassium [Moles/Vol]3.6 mmol/LLow3.7-5.3Mthe bellevue hospitaly Mercy HospitalComment on above:Performed By: #### BMPX, CDP #### [facility] [address] [place] [address] Or[place] Sprayer: ELIECER Johnsonodium [Moles/Vol]139 mmol/YEhialp840-344CajfzUniversity Hospitals Geauga Medical CenterComment on above:Performed By: #### BMPX, CDP #### [facility] [address] [place] [id number] Orchard Sprayer: Quirino Valladares MDUrea nitrogen [Mass/Vol]9 mg/dLNormal6-20[facility] Geaug[facility] Medical CenterComment on above:Performed By: #### BMPX, CDP #### [facility] [address] [place] [address] Orchard Sprayer: Quirino Valladares [facility] with Diffon [id number]. Basophil0.04 k/uL Normal0.00-0.20[facility] Geauga Medical CenterComment on above:Performed By: #### BMPX, CDP #### [facility] [address] [place] [id number] Orchard Sprayer: MDAbs. AlexImm.Granulocyte<0.78Tuuljr8.00-0.30[facility] Geaug[facility] Medical CenterComment on above:Performed By: #### BMPX, CDP #### [facility] [address] [place] [id number] Orchard Sprayer: Marta Johnson.Neutrophil (Seg)2.46 k/uLNormal1.80-8.00 [facility] Geaug[facility] Medical CenterComment on above:Performed By: #### BMPX, CDP #### [facility] [address] [place] [id number] Orchard Sprayer: Quirino Valladares MDBasophils/100 WBC (Bld)1 %Normal0-2MOrange County Global Medical CenterComment on above:Performed By: #### BMPX, CDP #### [address] [address] [place] Spr[place]: Quirino Valladares MDEosinophils (Bld) [#/Vol]0.11 10*3/uLNormal 0.00-0.44[facility]aug[facility] Medical CenterComment on above:Performed By: #### BMPX, CDP #### [address] [address] [place]: WM Johnsonosinophils/100 WBC (Bld)2 %Normal1-4[facility] Medical CenterComment on above:Performed By: #### BMPX, CDP #### [place] [address] Or[place] Sprayer: Quirino Valladares MDErythrocyte distribution width (RBC) [Ratio]11.9 %Cvbgug18.8-14.4[facility] Medical CenterComment on above:Performed By: #### BMPX, CDP #### [facility] [address] [place] [address] Or[place] Sprayer: Quirino Valladares MDHematocrit (Bld) [Volume fraction]36.8 %Normal 36.3-47.1MOrange County Global Medical CenterComment on above:Performed By: #### BMPX, CDP #### [facility] [address] [place] [address] [place] Sprayer: Quirino Valladares MDHemoglobin (Bld) [Mass/Vol]12.6 g/dLNormal 11.9-15.1MOrange County Global Medical CenterComment on above:Performed By: #### BMPX, CDP #### [address] [address] [place]ayer: Quirino Valladares MDImmature granulocytes/100 WBC (Bld)0 %Normal0 [facility] CenterComment on above:Performed By: #### BMPX, CDP #### [address] [address] [place] Sprayer: Quirino Valladares MDLymphocytes (Bld) [#/Vol]2.61 10*3/uLNormal 1.20-5.20[facility] CenterComment on above:Performed By: #### BMPX, CDP #### [address] [address] [place]ayer: Roland Johnsonmphocytes/100 WBC (Bld)45 %Joggar40-66RtqvbUniversity Hospitals Geauga Medical CenterComment on above:Performed By: #### BMPX, CDP #### [place] [address] Or[place] Sprayer: HESHAM JohnsonCH (RBC) [Entitic mass]29.6 hrXtnvva97.2-33.5 [facility] CenterComment on above:Performed By: #### BMPX, CDP #### [address] [address] Or[place] Sprayer: HESHAM JohnsonCHC (RBC) [Mass/Vol]34.2 g/lMCezrwu52.4-34.8 [facility] CenterComment on above:Performed By: #### BMPX, CDP #### [address] [address] [place] Sprayer: HESHAM JohnsonCV (RBC) [Entitic vol]86.4 rAWaxrrl87.6-102.9 [facility] CenterComment on above:Performed By: #### BMPX, CDP #### [address] [address] [place]: Quirino Madoff, MDMonocytes (Bld) [#/Vol]0.52 10*3/uLNormal 0.10-1.40[facility] Medical CenterComment on above:Performed By: #### BMPX, CDP #### [facility] [address] [place] [address] [place]ayer: HESHAM Johnsononocytes/100 WBC (Bld)9 %High2-8[facility] Medical CenterComment on above:Performed By: #### BMPX, CDP #### [facility] [address] [place] [address] [place]ayer: Jade Johnsonutrophil (Seg)43 %Ddvksc93-43DendbUniversity Hospitals Geauga Medical CenterComment on above:Performed By: #### BMPX, CDP #### [address] [address] [place] Spr[place]: Quirino Valladares MDNRBC Automated0.0 per 100 WBCNormal0.0[facility] Medical CenterComment on above:Performed By: #### BMPX, CDP #### [address] [address] [place]ayer: BILL Johnsonlatelet mean volume (Bld) [Entitic vol]12.3 fL Normal8.1-13.5[facility] Medical CenterComment on above:Performed By: #### BMPX, CDP #### [facility] [address] [place] [address] [place]: Quirino Valladares MDPlatelets (Bld) [#/Vol]210 10*3/cKAbretg150-231 [facility] CenterComment on above:Performed By: #### BMPX, CDP #### [facility] [address] [place] [address] [place] Sprayer: Quirino Valladares MDRBC (Bld) [#/Vol]4.26 10*6/uLNormal3.95-5.11 [facility] CenterComment on above:Performed By: #### BMPX, CDP #### [facility] [address] [place] [address] [place]ayer: KALPANA Johnson (Bld) [#/Vol]5.8 10*3/uLNormal4.5-13.5[facility] Medical CenterComment on above:Performed By: #### BMPX, CDP #### [facility] [address] [place] [address] [place] Sprayer: Jessie Johnson Metab w/rfx MGon 80-57-2719Eopslsdqr [Moles/Vol]3.5 mmol/LLow3.7-5.3MOrange County Global Medical CenterComment on above: Performed By: #### SHYAM, BMPX, MG #### [facility] [address] [place] [address] [place]ayer: Quirino Valladares MDAnion gap [Moles/Vol]8 mmol/LLow9-17[facility] Medical CenterComment on above:Performed By: #### SHYAM, BMPX, MG #### [facility] [address] [place] [address] Or[place] Sprayer: CHUY Johnsonalcium [Mass/Vol]8.8 mg/dLNormal8.6-10.4[facility] CenterComment on above:Performed By: #### SHYAM, BMPX, MG #### [facility] [address] [place] [address] Or[place] Sprayer: CHUY Johnsonhloride [Moles/Vol]105 mmol/JIufoke22-223QfccsUniversity Hospitals Geauga Medical CenterComment on above:Performed By: #### SHYAM, BMPX, MG #### [facility] [address] [place] [address] Or[place] Sprayer: CHUY JohnsonO2 [Moles/Vol]23 mmol/SCxhzxh51-81KbaunUniversity Hospitals Geauga Medical CenterComment on above:Performed By: #### CDP, BMPX, MG #### [facility] [address] [place] [address] [place] Sprayer: CHUY Johnsonreatinine [Mass/Vol]0.8 mg/dLNormal0.5-0.9[facility] Medical CenterComment on above:Performed By: #### CDP, BMPX, MG #### [facility] [address] [place] [address] [place]ayer: Quirino Valladares MDGFR/1.73 sq M.predicted among non-blacks MDRD (S/P/Bld) [Vol rate/Area]mL/min/{1.73_m2}Normal>60[facility] Medical CenterComment on above:Result Comment: These results are not intended for [...] or following therapy that affects renal tubular secretion.Performed By: #### SHYAM BMPX, MG #### [facility] [address] [place] [address] [place] Sprayer: Quirino Valladares MDGlucose [Mass/Vol]73 mg/bZExhcrc63-78RqgzuAdventist Health VallejoComment on above:Performed By: #### CDP, BMPX, MG #### [facility] [address] [place] [address] Or[place] Sprayer: ELIECER Johnsonodium [Moles/Vol]136 mmol/WCdgjpz943-243GyxbfUniversity Hospitals Geauga Medical CenterComment on above:Performed By: #### CDP, BMPX, MG #### [facility] [address] [place] [address] Or[place] Sprayer: Quirino Valladares MDUrea nitrogen [Mass/Vol]7 mg/dLNormal6-20[facility] CenterComment on above:Performed By: #### CDP, BMPX, MG #### [facility] [address] [place] [address] Or[place] Sprayer: CHUY Johnson with Diffon [id number]. Basophil0.03 k/uL Normal0.00-0.20[facility] Medical CenterComment on above:Performed By: #### CDP, BMPX, MG #### [facility] [address] [place] [address] Or[place] Sprayer: Marta Johnson.Imm.Granulocyte<0.99Tjxdxb4.00-0.30[facility] Medical CenterComment on above:Performed By: #### SHYAM, BMPX, MG #### [facility] [address] [place] [address] Or[place] Sprayer: Marta Johnson.Neutrophil (Seg)2.17 k/uLNormal1.80-8.00 [facility] CenterComment on above:Performed By: #### CDP, BMPX, MG #### [facility] [address] [place] [address] Or[place] Sprayer: Quirino Valladares MDBasophils/100 WBC (Bld)1 %Normal0-2MOrange County Global Medical CenterComment on above:Performed By: #### CDP, BMPX, MG #### [facility] [address] [place] [address] Or[place] Sprayer: Quirino Valladares MDEosinophils (Bld) [#/Vol]0.08 10*3/uLNormal 0.00-0.44[facility] CenterComment on above:Performed By: #### CDP, BMPX, MG #### [facility] [address] [place] [address] Or[place] Sprayer: Quirino Valladares MDEosinophils/100 WBC (Bld)2 %Normal1-4[facility] Medical CenterComment on above:Performed By: #### CDP, BMPX, MG #### [address] [address] [place] Sprayer: Quirino Valladares MDErythrocyte distribution width (RBC) [Ratio]11.9 %Ltnzxx12.8-14.4[facility] Medical CenterComment on above:Performed By: #### CDP, BMPX, MG #### [place] [address] Or[place] Sprayer: Quirino Valladares MDHematocrit (Bld) [Volume fraction]40.0 %Normal 36.3-47.1MOrange County Global Medical CenterComment on above:Performed By: #### CDP, BMPX, MG #### [facility] [address] [place] [address] Or[place] Sprayer: Quirino Valladares MDHemoglobin (Bld) [Mass/Vol]13.6 g/dLNormal 11.9-15.1MOrange County Global Medical CenterComment on above:Performed By: #### CDP, BMPX, MG #### [place] [address] Or[place] Sprayer: Quirino Valladares MDImmature granulocytes/100 WBC (Bld)0 %Normal0 [facility] CenterComment on above:Performed By: #### CDP, BMPX, MG #### [facility] [address] [place] [address] Or[place] Sprayer: Quirino Valladares MDLymphocytes (Bld) [#/Vol]1.69 10*3/uLNormal 1.20-5.20[facility] CenterComment on above:Performed By: #### CDP, BMPX, MG #### [facility] [address] [place] [address] Or[place] Sprayer: Quirino Valladares MDLymphocytes/100 WBC (Bld)38 %Qlvuyw49-64AmbkmUniversity Hospitals Geauga Medical CenterComment on above:Performed By: #### CDP, BMPX, MG #### [address] [address] Or[place] Sprayer: HESHAM JohnsonCH (RBC) [Entitic mass]29.6 nfGmrmpz37.2-33.5 [facility] CenterComment on above:Performed By: #### CDP, BMPX, MG #### [address] [address] Or[place] Sprayer: HESHAM JohnsonCHC (RBC) [Mass/Vol]34.0 g/gXIfgeml10.4-34.8 [facility] CenterComment on above:Performed By: #### CDP, BMPX, MG #### [address] [address] [place] Sprayer: HESHAM JohnsonCV (RBC) [Entitic vol]87.0 xTXgjlcu36.6-102.9 [facility] CenterComment on above:Performed By: #### CDP, BMPX, MG #### [place] [address] Or[place] Sprayer: HESHAM Johnsononocytes (Bld) [#/Vol]0.47 10*3/uLNormal 0.10-1.40[facility] Medical CenterComment on above:Performed By: #### CDP, BMPX, MG #### [address] [address] Or[place] Sprayer: HESHAM Johnsononocytes/100 WBC (Bld)11 %High2-8[facility] Medical CenterComment on above:Performed By: #### CDP, BMPX, MG #### [facility] [address] [place] [address] Or[place] Sprayer: Noni Johnsonophil (Seg)48 %Cazsow45-77TnpbrUniversity Hospitals Geauga Medical CenterComment on above:Performed By: #### CDP, BMPX, MG #### [facility] [address] [place] [address] [place] Sprayer: KARRIE JohnsonBC Automated0.0 per 100 WBCNormal0.0[facility] Medical CenterComment on above:Performed By: #### CDP, BMPX, MG #### [facility] [address] [place] [address] Or[place] Sprayer: Sonja Johnson mean volume (Bld) [Entitic vol]11.8 fL Normal8.1-13.5[facility] Medical CenterComment on above:Performed By: #### CDP, BMPX, MG #### [facility] [address] [place] [address] Or[place] Sprayer: Alistair Johnson (Bld) [#/Vol]214 10*3/eOPevtlu386-464 [facility] CenterComment on above:Performed By: #### CDP, BMPX, MG #### [facility] [address] [place] [address] Or[place] Sprayer: HECTOR JohnsonBC (Bld) [#/Vol]4.60 10*6/uLNormal3.95-5.11 [facility] CenterComment on above:Performed By: #### CDP, BMPX, MG #### [facility] [address] [place] [address] [place] Sprayer: KALPANA Johnson (Bld) [#/Vol]4.4 10*3/uLLow4.5-13.5[facility] Medical CenterComment on above:Performed By: #### CDP, BMPX, MG #### [facility] [address] [place] [address] Or[place] Sprayer: Quirino Valladares MDLamotrigineon [id number]<1.0Low 3.0-15.0Mercy Mercy HospitalComment on above:Result Comment: Neither a therapeutic or toxic range for Lamotrigine have been well established. Some reports suggest a target for steady-state concentrations of 3 - 15 ug/mL. However, there is not a clear relationship between lamotrigine serum concentrations and clinical response. The assay should be used in conjunction with information available from clinical evaluations and other diagnostic procedures. Multiple measurements of lamotrigine may be needed.Performed By: #### JIMMY #### [facility] Centercuauhtemoc [facility] [address] [place] [address] Or[place] Sprayer: Mohsen Johnsongnesiumon [id number] [Mass/Vol]2.0 mg/dLNormal1.6-2.6Mercy Mercy HospitalComment on above:Performed By: #### GLORIA HOWE MG #### [facility] [address] [place] [address] Or[place] Sprayer: HECTOR JohnsonAD - Ultrasound Reporton [id number] - Ultrasound [id number]#1.00TIFRegency Hospital ToledoPhysician Referralon [id number] Referral [id number]#1.00TIFRegency Hospital ToledoCBC W MANUAL DIFFon [id number]Rbg [facility]vue HospitalComment on above:Performed By: #### DOUG #### [facility] [address] [address] [address] Juan Jose ArguelloICAL LYMPH #0.36 103/[facility] Hospital - Southeast OhioComment on above:Performed By: #### CBCJESSICA #### [facility] [address] [address] [address] Juan Jose Dangelo LYMPH %4 %NormalThe Ursa HospitalComment on above: Performed By: #### DOUG #### [facility] [address] [place] [address] Dr. Juan Jose Shepard #0.0 103/ulNormal0.0-0.3The Ursa HospitalComment on above:Performed By: #### DOUG #### [facility] [address] [place] [address] Dr. Juan Jose Shepard %0 %Normal0-5The [facility] CenterComment on above:Performed By: #### DOUG #### [facility] [address] [place] [address] Dr. Juan Jose Loza #0.09 103/ulNormal0.00-0.10The [facility] Medical CenterComment on above:Performed By: #### DOUG #### [facility] [address] [place] [address] Dr. Juan Jose Loza %1.0 %Normal0.2-2.0The [facility] CenterComment on above: Performed By: #### DOUG #### [facility] [address] [place] [address] Dr. Juan Jose Gunderson #NormalCleveland Clinic Akron GeneralComment on above:Performed By: #### DOUG #### [facility] [address] [place] [address] Dr. Juan Jose Gunderson %NormalMount St. Mary Hospital HospitalComment on above:Performed By: #### DOUG #### [facility] [address] [place] [address] Dr. Juan Jose BandaCORRECTED WBCNormal4.0-11.0The [facility] CenterCombaraga county memorial hospital on above: Performed By: #### DOUG #### [facility] [address] [place] [address] Dr. Juan Jose Lewis #0.18 103/ulNormal0.00-0.70The [facility] CenterComment on above:Performed By: #### DOUG #### [facility] [address] [address] [address] Juan Jose Lewis%2.0 %Normal0.9-7.0The [facility] CenterCombaraga county memorial hospital on above: Performed By: #### DOUG #### [facility] [address] [address] [address] Juan Jose BandaHCT34.0 %Critically low36.0-48.0The [facility] CenterCombaraga county memorial hospital on above:Performed By: #### DOUG #### [facility] [address] [address] [address] Juan Jose BandaHGB11.8 g/dlCritically low12.0-16.0The [facility] CenterCombaraga county memorial hospital on above:Performed By: #### DOUG #### [facility] [address] [place] [address] Dr. Juan Jose Denson #1.55 103/ulNormal1.20-3.80The [facility] CenterCombaraga county memorial hospital on above:Performed By: #### DOUG #### [facility] [address] [place] [address] Dr. Juan Jose Denson%17.0 %Critically low20.5-60.0The [facility] on above:Performed By: #### DOUG #### [facility] [address] [place] [address] Dr. Juan Jose ToureH29.0 enOhzsok33.7-34.0The [facility] on above: Performed By: #### DOUG #### [facility] [address] [address] [address] Juan Jose ToureHC34.7 g/epPoxutw13.9-35.2The [facility] CenterCombaraga county memorial hospital on above:Performed By: #### DOUG #### [facility] [address] [place] [address] Dr. Juan Jose ToureV83.5 lOSwvuiz35.0-99.0The [facility] CenterCombaraga county memorial hospital on above: Performed By: #### DOUG #### [facility] [address] [address] [address] Juan Jose VarelaELOCYTE #NormalMount St. Mary Hospital HospitalComment on above: Performed By: #### DOUG #### [facility] [address] [address] [address] Juan Jose GonzalesAMYELOCYTE %NormalThe Ursa HospitalComment on above: Performed By: #### CBCJESSICA #### [facility] [address] [address] [address] Juan Jose KinseyROCYTOSISSLIGHTMiami Valley HospitalComment on above: Performed By: #### CBCJESSICA #### [facility] [address] [address] [address] Juan Jose Marshall#1.00 103/ulCritically high0.30-0.80The [facility] Comment on above:Performed By: #### DOUG #### [facility] [address] [address] [address] Juan Jose Marshall%11.0 %Normal1.7-12.0The [facility] CenterComment on above: Performed By: #### DOUG #### [facility] [address] [address] [address] Juan Jose BandaMPV11.2 fLNormal9.5-13.5The [facility] CenterCombaraga county memorial hospital on above: Performed By: #### CBCJESSICA #### [facility] [address] [address] [address] Juan Jose MccartneyOCYTE #NormalCleveland Clinic Akron GeneralComment on above:Performed By: #### CBCJESSICA #### [facility] [address] [place] [address] Dr. Juan Jose MccartneyOCYTE %NormalCleveland Clinic Akron GeneralComment on above:Performed By: #### CBCJESSICA #### [facility] [address] [address] [address] Juan Jose BandaNRBCMiami Valley HospitalComment on above:Performed By: #### CBCJESSICA #### [facility] [address] [address] [address] Juan Jose BuiT180 103/wtWirtji027-234Dhl [facility] on above: Performed By: #### CBCJESSICA #### [facility] [address] [place] [address] Dr. Juan Jose McfaddenC4.07 106/ulCritically low4.20-5.40[facility] on above:Performed By: #### CBCMAN #### [facility] [address] [place] [address] Dr. Juan Jose BandaRDW11.9 %Xvawou52.0-15.0[facility] on above: Performed By: #### CBCJESSICA #### [facility] [address] [place] [address] Dr. Juan Jose Pierce #5.92 103/ulNormal1.40-6.50The [facility] on above:Performed By: #### DOUG #### [facility] [address] [place] [address] Dr. Juan Jose Pierce %65.0 %Rnmhaf77.0-75.0[facility] on above: Performed By: #### DOUG #### [facility] [address] [place] [address] Dr. Juan Jose ErazoBC9.1 103/ulNormal4.0-11.0[facility] on above: Performed By: #### CBCJESSICA #### [facility] [address] [place] [address] Dr. Juan Jose Seay SCREEN RAPID (URINE)on [id number]A [facility] on above:Performed By: #### URCX #### [facility] [address] [place] [address] Dr. Juan Jose CuevasNegativeNormalNEGATIVELakeHealth Beachwood Medical Center on above: Performed By: #### URCX #### [facility] [address] [place] [address] Dr. Juan Jose ReyesPNegativeNormalNEGATIVELakeHealth Beachwood Medical Center on above: Performed By: #### URCX #### [facility] [address] [address] [address] Juan Jose BandaBZONegativeNormalNEGATIVEShelby Memorial Hospitalment on above: Performed By: #### URCX #### [facility] [address] [place] [address] Dr. Juan Jose BandaCOCNegativeNormalNEGATIVELakeHealth Beachwood Medical Center on above: Performed By: #### URCX #### [facility] [address] [place] [address] Dr. Juan Jose BandaTTrinity Health System Twin City Medical CenterCombaraga county memorial hospital on above: Result Comment: AMP (Amphetamine): 500ng/mL, BAR (Barbituates): 200 ng/mL, BZO (Benzodiazepines): 150 ng/mL, BUP (Buprenorphine): 10 ng/mL, LUCIO (Cocaine): 150 ng/mL, mAMP (Methamphetamine): 500 ng/mL, MTD (Methadone): 200 ng/mL, OPI (Opiates): 100 ng/mL, OXY (Oxycodone): 100 ng/mL, PCP (Phencyclidine): 25 ng/mL, PPX (Propoxyphene): 300 ng/mL, THC (Cannabinoids): 50 ng/mL, TCA (Trycyclic Antidepressants): 300 ng/mLPerformed By: #### URCX #### [facility] [address] [place] [address] Dr. Juan Jose BandaDRUG CUT HEADERDRUG CLASS TEST SYSTEM CUT-OFF CONCENTRATIONS ARE FOLLOWS:NormalThe [facility] CenterCombaraga county memorial hospital on above:Performed By: #### URCX #### [facility] [address] [place] [address] Dr. Juan Jose BandamAMPNegativeNormalNEGATIVECleveland Clinic Akron GeneralCombaraga county memorial hospital on above: Performed By: #### URCX #### [facility] [address] [place] [address] Dr. Juan Jose BandaMTDNegativeNormalNEGATIVELakeHealth [facility]wood Medical Center on above: Performed By: #### URCX #### [facility] [address] [place] [address] Dr. Juan Jose BandaOPINegativeNormalNEGATIVECleveland Clinic Akron GeneralComment on above: Performed By: #### URCX #### [facility] [address] [place] [address] Dr. Juan Jose BandaOXYNegativeNormalNEGWestern Reserve HospitalComment on above: Performed By: #### URCX #### [facility] [address] [place] [address] Dr. Juan Jose BandaPCPNegativeNormalNEGWestern Reserve HospitalComment on above: Performed By: #### URCX #### [facility] [address] [place] [address] Dr. Juan Jose BandaPPXNegativeNormalNEGWestern Reserve HospitalComment on above: Performed By: #### URCX #### [facility] [address] [place] [address] Dr. Juan Jose BandaTCANegativeNormalNEGWestern Reserve HospitalComment on above: Performed By: #### URCX #### [facility] [address] [place] [address] Dr. Juan Jose BandaTHCNegativeNormalNEGWestern Reserve HospitalComment on above: Performed By: #### URCX #### [facility] [address] [place] [address] Dr. Juan Jose Arevalo AND SCREENon [id number] AND SCREENNegativeMiami Valley HospitalComment on above:Performed By: #### CBCMAN #### [facility] [address] [place] [address] Dr. Juan Jose Narayan PREG BIOPHY W NON STRESSon [id number] PREG BIOPHY W NON STRESSEXAMINATION: US PREG BIOPHY W NON STRESS HISTORY: [...] Electronically authenticated by: YO MESA Date: 2022-12-31 17:02[facility] PREG UMBILICAL ARTERYon [id number] PREG UMBILICAL ARTERY EXAMINATION: US PREG UMBILICAL [...] Electronically authenticated by: YO MESA Date: 2022-12-31 17:18[facility] HospitalGROUP B STREP CULTUREon 12-28-2022S. agalactiae Ag Ql (Unsp spec)Culture Observations: NEGATIVE FOR GROUP B STREPTOCOCCUS.NormalThe [facility] Medical CenterComment on above: Performed By: #### GBSCX #### [facility] [address] [place] [address] Dr. Juan Jose Narayan PREG BIOPHY W NON STRESSon [id number] PREG BIOPHY W NON STRESSEXAMINATION: US PREG BIOPHY W NON STRESS HISTORY: Poor growth affecting management COMPARISON: No relevant comparison available. FINDINGS: BREATHING MOVEMENTS: 2.0 GROSS BODY MOVEMENTS: 2.0 TONE: 2.0 QUALITATIVE AMNIOTIC FLUID VOLUME: 2.0 PRESENTATION: CEPHALIC HEART RATE: 150.8 bpm bpm. AMNIOTIC FLUID VOLUME: 13.4 cm GESTATIONAL AGE: 35 weeks 4 days CONCLUSION: Total biophysical profile score 8.0. Electronically authenticated by: LUISA ARCHIBALD Date: 2022-12-24 11:23[facility] HospitalUS PREG UMBILICAL ARTERYon [id number] PREG UMBILICAL ARTERY EXAMINATION: US PREG UMBILICAL [...] Electronically authenticated by: LUISA ARCHIBALD Date: 2022-12-24 11:58[facility] HospitalUA (CLEAN/CATCH) [employer] SUPERVISOR/MICRO IF IND.on [id number] Ql (U) NegativeNormalNEGATIVECleveland Clinic Akron GeneralComment on above:Performed By: #### CBCMAN #### [facility] [address] [place] [address] Dr. Juan Jose BandaClarity (U)CLEARNormalCLEARCleveland Clinic Akron GeneralComment on above: Performed By: #### CBCJESSICA #### [facility] [address] [place] [address] Dr. uJan Jose Oliver (U)LT. YELLOWNormalYELLOWCleveland Clinic Akron GeneralComment on above:Performed By: #### CBCJESSICA #### [facility] [address] [place] [address] Dr. Juan Jose BandaGlucose Ql (U)NegativeNormalNEGWestern Reserve HospitalComment on above:Performed By: #### CBCMAN #### [facility] [address] [place] [address] Dr. Juan Jose BandaHemoglobin Ql (U)NegativeNormalNEGATIVECleveland Clinic Akron General Comment on above:Performed By: #### CBCMAN #### [facility] [address] [address] [address] Juan Jose BandaKetones Ql (U)NegativeNormalNEGATIVECleveland Clinic Akron GeneralComment on above:Performed By: #### CBCMAN #### [facility] [address] [place] [address] Dr. Juan Jose BairdOCYTESSMALLAbnormalNEGWestern Reserve HospitalComment on above:Performed By: #### CBCMAN #### [facility] [address] [place] [address] Dr. Juan Jose Rey Ql (U)NegativeNormalNEGATIVECleveland Clinic Akron GeneralComment on above:Performed By: #### DOUG #### [facility] [address] [place] [address] Dr. Juan Jose BandapH (U)6.0 [pH]Normal5-9The [facility] CenterComment on above: Performed By: #### DOUG #### [facility] [address] [place] [address] Dr. Juan Jose Yoo GRAVITY<=1.515Yspvfocz3.005-<=1.025The [facility] Comment on above:Performed By: #### DOUG #### [facility] [address] [place] [address] Dr. Juan Jose Hinton PROTEINNegativeNormalNEGATIVE/ TRACEThe [facility] Comment on above:Performed By: #### DOUG #### [facility] [address] [place] [address] Dr. Juan Jose Anne MICRO INDINDICATEDMiami Valley HospitalComment on above: Performed By: #### DOUG #### [facility] [address] [place] [address] Dr. Juan Jose Ewing Qn (U)0.2 {Tyler'U}/dLNormal0.2 - 1.0C[facility] Clinic Ak[facility] GeneralComment on above:Performed By: #### DOUG #### [facility] [address] [place] [address] Dr. Juan Jose France MICROSCOPIC ONLYon [id number] SEENNormalNONE SEENCleveland Clinic Akron GeneralComment on above:Performed By: #### DOUG #### [facility] [address] [place] [address] Dr. Juan Jose Batres identified Cx Nom (U)NOT INDICATEDNoSheltering Arms HospitalComment on above:Performed By: #### DOUG #### [facility] [address] [place] [address] Dr. Juan Jose Dao SEENNormalNONE SEENCleveland Clinic Akron GeneralComment on above:Performed By: #### DOUG #### [facility] [address] [place] [address] Dr. Juan Jose Stevensonystals LM Nom (Urine sed)NONE SEENNormalNONE SEENThe [facility] CenterComment on above:Performed By: #### DOUG #### [facility] [address] [place] [address] Dr. Juan Jose Shresthathelial cells LM Ql (Urine sed)MANYAbnormalNONE SEEN /RAREThe [facility] CenterComment on above:Performed By: #### DOUG #### [facility] [address] [place] [address] Dr. Juan Jose TrippCOUSJASENE SEENNormalNONE SEENThe [facility] CenterCombaraga county memorial hospital on above:Performed By: #### DOUG #### [facility] [address] [place] [address] Dr. Juan Jose VanONE SEENAbnormal0-2The [facility] CenterComment on above: Performed By: #### DOUG #### [facility] [address] [place] [address] Dr. Juan Jose ErazoBC2-5AbnormalNONE SEENCleveland Clinic Akron GeneralCombaraga county memorial hospital on above: Performed By: #### DOUG #### [facility] [address] [place] [address] Dr. Juan Jose Narayan PREG BIOPHY W NON STRESSon [id number] PREG BIOPHY W NON STRESSEXAM: US PREG BIOPHY W NON STRESS HISTORY: [...] Electronically authenticated by: DALLIN HERNANDEZ Date: 2022-12-22 20:55NoThe [facility] PREG PLACENTAon [id number] PREG PLACENTAEXAM: US PREG PLACENTA HISTORY: Abdominal pain. COMPARISON: 12/20/2022 TECHNIQUE: Multiple real-time transabdominal images were obtained of the uterus for evaluation of the placenta.. PRESENTATION: Cephalic. PLACENTA LOCATION: Posterior in the fundus. Grade 2 placenta. CARDIAC ACTIVITY: 134 bpm. ADDITIONAL COMMENTS: None. IMPRESSION: Posterior placenta with punctate calcifications throughout, without evidence for previa. Grade 2 placenta. Electronically authenticated by: DALLIN HERNANDEZ Date: 2022-12-22 20:52NoThe [facility] PREG GROWTHon [id number] PREG GROWTHEXAMINATION: US PREG GROWTH HISTORY: Uterine size for [...] Electronically authenticated by: LUISA ARCHIBALD Date: 2022-12-20 15:23NoOhioHealth [facility]ide [facility] HospitalCULTURE URINEon [id number] URINECulture Observations: LIGHT GROWTH OF MIXED GENITAL CHEVY. NO POTENTIAL PATHOGENS SEEN.NormalCleveland Clinic Akron GeneralComment on above:Performed By: #### URCX #### [facility] [address] [address] [address] Juan Jose Hinton (CLEAN/CATCH) [employer] SUPERVISOR/MICRO IF IND.on [id number] Ql (U) NegativeNormalNEGATIVECleveland Clinic Akron GeneralComment on above:Performed By: #### HIV12 #### [facility] [address] [address] [address] Juan Jose BandaClarity (U)CLEARNormalCLEARCleveland Clinic Akron GeneralComment on above: Performed By: #### HIV12 #### [facility] [address] [place] [address] Dr. Juan Jose Schraderlor (U)LT. YELLOWNormalYELLOWCleveland Clinic Akron GeneralComment on above:Performed By: #### HIV12 #### [facility] [address] [address] [address] Juan Jose BandaGlucose Ql (U)NegativeNormalNEGATIVECleveland Clinic Akron GeneralComment on above:Performed By: #### HIV12 #### [facility] [address] [place] [address] Dr. Juan Jose BandaHemoglobin Ql (U)NegativeNormalNEGCorey Hospital on above:Performed By: #### HIV12 #### [facility] [address] [address] [address] Juan Jose BandaKetones Ql (U)NegativeNormalNEGATIVECleveland Clinic Akron GeneralComment on above:Performed By: #### HIV12 #### [facility] [address] [place] [address] Dr. Juan Jose BandaLEUKOCYTESMODERATEAbnormalNEGATIVECleveland Clinic Akron GeneralComment on above:Performed By: #### HIV12 #### [facility] [address] [place] [address] Dr. Juan Jose BandaNitrite Ql (U)NegativeNormalNEGATIVEThe [facility] CenterComment on above:Performed By: #### HIV12 #### [facility] [address] [address] [address] Juan Jose BandapH (U)6.5 [pH]Normal5-9The [facility] CenterComment on above: Performed By: #### HIV12 #### [facility] [address] [address] [address] Juan Jose BandaSPEC GRAVITY<=1.923Rrstgyve2.005-<=1.025The [facility] Comment on above:Performed By: #### HIV12 #### [facility] [address] [place] [address] Dr. Juan Jose Hinton PROTEINNegativeNormalNEGATIVE/ TRACEThe [facility] Comment on above:Performed By: #### HIV12 #### [facility] [address] [place] [address] Dr. Juan Jose Anne MICRO INDINDICATEDMiami Valley HospitalComment on above: Performed By: #### HIV12 #### [facility] [address] [place] [address] Dr. Juan Jose Ewing Qn (U)0.2 {Tyler'U}/dLNormal0.2 - 1.0[facility] GeneralCombaraga county memorial hospital on above:Performed By: #### HIV12 #### [facility] [address] [place] [address] Dr. Juan Jose France MICROSCOPIC ONLYon [id number]H SEEN [facility] GeneralComment on above:Performed By: #### RPRQ #### [facility] [address] [address] [address] Juan Jose Moralescteria identified Cx Nom (U)INDICATEDMiami Valley HospitalCombaraga county memorial hospital on above:Performed By: #### RPRQ #### [facility] [address] [place] [address] Dr. Juan Jose BandaCASTEB SEENNormalNONE SEENCleveland Clinic Akron GeneralComment on above:Performed By: #### RPRQ #### [facility] [address] [address] [address] Juan Jose BandaCrystals LM Nom (Urine sed)NONE SEENNormalNONE SEENThe [facility] on above:Performed By: #### RPRQ #### [facility] [address] [place] [address] Dr. Ingram ChangEpithelial cells LM Ql (Urine sed)MODERATEAbnormalNONE SEEN /RARE The [facility] CenterCombaraga county memorial hospital on above:Performed By: #### RPRQ #### [facility] [address] [place] [address] Dr. Juan Jose TrippCOUSNONE SEENNormalNONE SEENThe [facility] on above:Performed By: #### RPRQ #### [facility] [address] [place] [address] Dr. Juan Jose McfaddenJjtnsAQF3-0Hrwfsumg1-4Rpg [facility] on above:Performed By: #### RPRQ #### [facility] [address] [place] [address] Dr. Juan Jose ErazoBC5-10AbnormalNONE SEENLakeHealth Beachwood [facility] Center on above: Performed By: #### RPRQ #### [facility] [address] [place] [address] Dr. Juan Jose AbdiASTPRESENTAbnormalNONE SEENLakeHealth Beachwood Medical Center on above:Result Comment: rarePerformed By: #### RPRQ #### [facility] [address] [place] [address] Dr. Juan Jose Saravia GUSTAVO ADMITon [id number] [Catalytic activity/Vol]33 U/L Erwvqb73-001Gml [facility] on above:Performed By: #### SEDR #### [facility] [address] [place] [address] Dr. Juan Jose Knowles.MB [Mass/Vol]ng/mLNormal<=3.60The [facility] on above:Performed By: #### SEDR #### [facility] [address] [place] [address] Dr. Juan Jose HightowerOP<4.4Nplaat2.0-51.3The [facility] CenterComment on above: Result Comment: CUT-OFF POINTS HAVE BEEN ESTABLISHED BASED ON THE FOURTH UNIVERSAL DEFINITIONS OF MYOCARDIAL INFARCTION. THE UPPER REFERENCE LIMIT (URL) OF TROPONIN, DEFINED THE 99TH PERCENTILE OF cTnI DISTRIBUTION IN A REFERENCE POPULATION, HAS BEEN CONFIRMED THE DECISION THRESHOLD FOR IA DIAGNOSIS.Performed By: #### SEDR #### [facility] [address] [place] [address] Dr. Juan Jose BatemanO17 ng/mLNormal9-82The [facility] CenterComment on above: Performed By: #### SEDR #### [facility] [address] [place] [address] Dr. Juan Jose Rosado AUTO DIFFon [id number] #0.0 103/ulNormal0.0-0.1The [facility] CenterComment on above:Performed By: #### URCX #### [facility] [address] [place] [address] Dr. Juan Jose BandaBasophils/100 WBC (Bld)0.2 %Normal0.2-2.0[facility] Comment on above:Performed By: #### URCX #### [facility] [address] [place] [address] Dr. Juan Jose Sims #0.0 103/ulNormal0.0-0.7The [facility] CenterComment on above: Performed By: #### URCX #### [facility] [address] [place] [address] Dr. Juan Jose Faustosinophils/100 WBC (Bld)0.4 %Critically low0.9-7.0The [facility] CenterComment on above:Performed By: #### URCX #### [facility] [address] [place] [address] Dr. Juan Jose Faustrythrocyte distribution width (RBC) [Ratio]12.4 %Jwbarc68.0-15.0 The [facility] CenterComment on above:Performed By: #### URCX #### [facility] [address] [address] [address] Juan Jose BandaHematocrit (Bld) [Volume fraction]33.7 %Critically low36.0-48.0 The [facility] CenterComment on above:Performed By: #### URCX #### [facility] [address] [address] [address] Juan Jose BandaHemoglobin (Bld) [Mass/Vol]12.1 g/dNZjilke51.0-16.0The [facility] HospitalComment on above:Performed By: #### URCX #### [facility] [address] [address] [address] Juan Jose Daugherty #0.09 10e3/ulCritically high0.00-0.03The [facility] Comment on above:Performed By: #### URCX #### [facility] [address] [place] [address] Dr. Juan Jose Daugherty %1.1 %Critically high0.0-0.5The [facility] CenterComment on above:Performed By: #### URCX #### [facility] [address] [address] [address] Juan Jose Banerjee #1.5 103/ulNormal1.2-3.8The [facility] CenterComment on above:Performed By: #### URCX #### [facility] [address] [address] [address] Juan Jose Snowmphocytes/100 WBC (Bld)17.1 %Critically low20.5-60.0[facility] GeneralComment on above:Performed By: #### URCX #### [facility] [address] [address] [address] Juan Jose FullerUAL DIFF REQNONormalThe [facility] CenterComment on above: Performed By: #### URCX #### [facility] [address] [place] [address] Dr. Juan Jose Medeiros (RBC) [Entitic mass]30.5 njGawuyi35.7-34.0The [facility]a HospitalComment on above:Performed By: #### URCX #### [facility] [address] [place] [address] Dr. Juan Jose ToureHC (RBC) [Mass/Vol]35.9 g/dLCritically high29.9-35.2The [facility] CenterComment on above:Performed By: #### URCX #### [facility] [address] [place] [address] Dr. Juan Jose Cisneros (RBC) [Entitic vol]84.9 yTHkrfca51.0-99.0The [facility] CenterComment on above:Performed By: #### URCX #### [facility] [address] [place] [address] Dr. Juan Jose Pedro #0.8 103/ulNormal0.3-0.8The [facility] CenterComment on above:Performed By: #### URCX #### [facility] [address] [place] [address] Dr. Juan Jose Puriocytes/100 WBC (Bld)9.8 %Normal1.7-12.0The [facility] Comment on above:Performed By: #### URCX #### [facility] [address] [place] [address] Dr. Juan Jose Farr #6.1 103/ulNormal1.4-6.5The [facility] CenterComment on above:Performed By: #### URCX #### [facility] [address] [place] [address] Dr. Juan Jose Parrautrophils/100 WBC (Bld)71.4 %Zbcjwx33.0-75.0The [facility] CenterComment on above:Performed By: #### URCX #### [facility] [address] [place] [address] Dr. Juan Jose Muñozlet mean volume (Bld) [Entitic vol]11.2 fLNormal9.5-13.5The [facility] CenterComment on above:Performed By: #### URCX #### [facility] [address] [place] [address] Dr. Juan Jose BandaPLT196 103/wrSjxlyk915-684Slz [facility] on above: Performed By: #### URCX #### [facility] [address] [place] [address] Dr. Juan Jose BandaRBC3.97 106/ulCritically low4.20-5.40The [facility] CenterCombaraga [facility] memorial hospital on above:Performed By: #### URCX #### [facility] [address] [place] [address] Dr. Juan Jose BandaWBC8.5 103/ulNormal4.0-11.0The [facility] CenterCombaraga [facility] memorial hospital on above: Performed By: #### URCX #### [facility] [address] [place] [address] Dr. Juan Jose Villatoro PROFILEon 51-01-5547Qtvulme [Mass/Vol]3.0 g/dLCritically low3.4-5.0The [facility] CenterCombaraga [facility] on above:Performed By: #### SEDR #### [facility] [address] [place] [address] Dr. Juan Jose BandaAlbumin/Globulin [Mass ratio]0.9 {ratio}NormalThe [facility] CenterCombaraga county memorial hospital on above:Performed By: #### SEDR #### [facility] [address] [place] [address] Dr. Juan Jose Hugo [Catalytic activity/Vol]76 U/HKbkmmq11-455Uyg [facility] CenterCombar[facility] on above:Performed By: #### SEDR #### [facility] [address] [place] [address] Dr. Juan Jose Stafford [Catalytic activity/Vol]13 U/LCritically ngg79-39Uyn [facility] CenterCombar[facility] on above:Performed By: #### SEDR #### [facility] [address] [place] [address] Dr. Juan Jose Linton [Catalytic activity/Vol]14 U/LCritically imc54-28Mur [facility] on above:Performed By: #### SEDR #### [facility] [address] [address] [address] Juan Jose Ceron, CONJUGATED0.1 mg/dLNormal0.0-0.2[facility] Comment on above:Performed By: #### SEDR #### [facility] [address] [place] [address] Dr. Juan Jose Rodriguezirubin [Mass/Vol]0.3 mg/dLNormal0.2-1.0[facility] Comment on above:Performed By: #### SEDR #### [facility] [address] [place] [address] Dr. Juan Jose BandaGlobulin (S) [Mass/Vol]3.4 g/dLMiami Valley HospitalComment on above:Performed By: #### SEDR #### [facility] [address] [place] [address] Dr. Juan Jose BandaProtein [Mass/Vol]6.4 g/dLNormal6.4-8.2The [facility] Comment on above:Performed By: #### SEDR #### [facility] [address] [place] [address] Dr. Juan Jose BandaBOX TEST SENT OUTon [id number] TO REF LAB10/01/2022[facility] HospitalComment on above:Performed By: #### SEDR #### [facility] [address] [place] [address] Dr. Juan Jose Narayan PREG ANATOMY SINGLEon [id number] PREG ANATOMY SINGLE EXAMINATION: US PREG ANATOMY [...] Electronically authenticated by: LUISA ARCHIBALD Date: 2022-09-29 16:29[facility] HospitalHE B SURFACE ANTIGEN SCREENon [id number] ScreenNegative NormalNegativeThe [facility] CenterComment on above:Performed By: #### SEDR #### [facility] [address] [place] [address] Dr. Juan Jose BandaHEPATITIS C VIRUS AB W/ REFLEX QUANTon [id number] AB<0.1Normal 0.0-0.9The [facility] CenterComment on above:Performed By: #### RPRQ #### [facility] [address] [place] [address] Dr. Juan Jose BandaInterpretation:CommentNormSelect Medical OhioHealth Rehabilitation HospitalComment on above:Result Comment: Negative Not infected with HCV, unless recent infection is suspected or other evidence exists to indicate HCV infection.Performed By: #### RPRQ #### [facility] [address] [place] [address] Dr. Juan Jose BandaHIV 1 AND 2 WITH REFLEXon [id number] Screen 4th Generation wRfxNon-ReactiveNormalNon ReactiveThe [facility] CenterComment on above:Result Comment: HIV Negative HIV-1/HIV-2 antibodies and HIV-1 p24 antigen were NOT detected. There is no laboratory evidence of HIV infection.Performed By: #### HIV12 #### [facility] [address] [place] [address] Dr. Juan Jose BandaRPR QUANTon [id number] Plasma Reagin, QuantNon-Reactive NormalNonRea<1:1The [facility] Medical Centerment on above:Result Comment: Please Note: This test does not meet current guidelines for screening and diagnosis of syphilis. This test is intended for following treatment response in patients being treated for syphilis infection. To screen for syphilis infection, a reflex cascade that includes both RPR and a treponema-specific assay should be utilized, such as Treponema pallidum (Syphilis) Screening [place] (234987) or Rapid Plasma Reagin (RPR) Test With Reflex to Quantitative RPR and Confirmatory Treponema pallidum Antibodies (199540).Performed By: #### RPRQ #### [facility] [address] [place] [address] Dr. Juan Jose Knowles AB IGGon 02-23-0823Gexlsqa Antibodies, IgG2.56 index NormalImmune >0.99The [facility] CenterComment on above:Result Comment: Non- immune <0.90 Equivocal 0.90 - 0.99 Immune >0.99Performed By: #### SEDR #### [facility] [address] [place] [address] Dr. Juan Jose BandaCULTURE URINEon [id number] URINECulture Observations: LIGHT GROWTH OF MIXED GENITAL CHEVY. NO POTENTIAL PATHOGENS SEEN.NormalThe [facility] CenterComment on above:Performed By: #### URCX #### [facility] [address] [place] [address] Dr. Juan Jose Rosado AUTO DIFFon [id number] #0.0 103/ulNormal0.0-0.1The [facility] CenterComment on above:Performed By: #### SEDR #### [facility] [address] [place] [address] Dr. Juan Jose BandaBasophils/100 WBC (Bld)0.4 %Normal0.2-2.0The [facility] Comment on above:Performed By: #### SEDR #### [facility] [address] [place] [address] Dr. Juan Jose Sims #0.1 103/ulNormal0.0-0.7The [facility] CenterComment on above: Performed By: #### SEDR #### [facility] [address] [place] [address] Dr. Juan Jose Faustosinophils/100 WBC (Bld)1.4 %Normal0.9-7.0[facility] Comment on above:Performed By: #### SEDR #### [facility] [address] [place] [address] Dr. Juan Jose Faustrythrocyte distribution width (RBC) [Ratio]12.2 %Svjzbn74.0-15.0 [facility] GeneralComment on above:Performed By: #### SEDR #### [facility] [address] [place] [address] Dr. Juan Jose BandaHematocrit (Bld) [Volume fraction]35.3 %Critically low36.0-48.0 [facility] GeneralComment on above:Performed By: #### SEDR #### [facility] [address] [place] [address] Dr. Juan Jose BandaHemoglobin (Bld) [Mass/Vol]12.7 g/oVZgtqkn87.0-16.0The [facility] CenterComment on above:Performed By: #### SEDR #### [facility] [address] [place] [address] Dr. Juan Jose Daugherty #0.03 10e3/ulNormal0.00-0.03The [facility] CenterComment on above:Performed By: #### SEDR #### [facility] [address] [place] [address] Dr. Juan Jose Daugherty %0.4 %Normal0.0-0.5The [facility] CenterComment on above: Performed By: #### SEDR #### [facility] [address] [place] [address] Dr. Yilan ChangLYMPH #1.4 103/ulNormal1.2-3.8The [facility] CenterComment on above:Performed By: #### SEDR #### [facility] [address] [place] [address] Dr. Juan Jose Snowmphocytes/100 WBC (Bld)19.7 %Critically low20.5-60.0The [facility] CenterComment on above:Performed By: #### SEDR #### [facility] [address] [place] [address] Dr. Juan Jose Ramirez DIFF REQNONormalThe [facility] CenterComment on above: Performed By: #### SEDR #### [facility] [address] [place] [address] Dr. Juan Jose Toure (RBC) [Entitic mass]29.8 fnXbtmoc76.7-34.0The [facility] CenterComment on above:Performed By: #### SEDR #### [facility] [address] [place] [address] Dr. Juan Jose Toure (RBC) [Mass/Vol]36.0 g/dLCritically high29.9-35.2The [facility] CenterComment on above:Performed By: #### SEDR #### [facility] [address] [place] [address] Dr. Juan Jose Toure (RBC) [Entitic vol]82.9 tBGzybtq49.0-99.0The [facility] CenterComment on above:Performed By: #### SEDR #### [facility] [address] [place] [address] Dr. Juan Jose Pedro #0.6 103/ulNormal0.3-0.8The [facility] CenterComment on above:Performed By: #### SEDR #### [facility] [address] [place] [address] Dr. Juan Jose Puriocytes/100 WBC (Bld)8.3 %Normal1.7-12.0The [facility] Comment on above:Performed By: #### SEDR #### [facility] [address] [place] [address] Dr. Juan Jose Farr #5.0 103/ulNormal1.4-6.5The [facility] CenterComment on above:Performed By: #### SEDR #### [facility] [address] [place] [address] Dr. Juan Jose Valerioophils/100 WBC (Bld)69.8 %Prjfjs69.0-75.0The [facility] CenterComment on above:Performed By: #### SEDR #### [facility] [address] [place] [address] Dr. Juan Jose BandaPlatelet mean volume (Bld) [Entitic vol]11.8 fLNormal9.5-13.5The [facility] CenterComment on above:Performed By: #### SEDR #### [facility] [address] [place] [address] Dr. Juan Jose BandaPLT183 103/lzJtelku466-400Lft [facility] CenterComment on above: Performed By: #### SEDR #### [facility] [address] [place] [address] Dr. Juan Jose BandaRBC4.26 106/ulNormal4.20-5.40The [facility] CenterCombaraga [facility] on above:Performed By: #### SEDR #### [facility] [address] [place] [address] Dr. Juan Jose BandaWBC7.1 103/ulNormal4.0-11.0The [facility] CenterComment on above: Performed By: #### SEDR #### [facility] [address] [place] [address] Dr. Juan Jose BandaCULTURE URINEon 19-67-1002CORSURP URINECulture Observations: MODERATE GROWTH OF MIXED GENITAL CHEVY. NO POTENTIAL PATHOGENS SEEN.NormalThe St. Mary's Medical Centerment on above:Performed By: #### CBCMAN #### [facility] [address] [place] [address] Dr. Juan Jose BandaGLYCOHEMOGLOBIN A1Con [id number] RECOMMENDATIONSEE BELOWNormal The [facility] CenterComment on above:Result Comment: ADA RECOMMENDED LIMIT 4.0 - 6.0 ADA THERAPEUTIC TARGET < 7.0 ACTION SUGGESTED > 7.0Performed By: #### HIV12 #### [facility] [address] [place] [address] Dr. Juan Jose BandaGlucose [Mass/Vol]85 mg/dLNormSelect Medical OhioHealth Rehabilitation HospitalComment on above:Performed By: #### HIV12 #### [facility] [address] [place] [address] Dr. Juan Jose BandaHbA1c (Bld) [Mass fraction]4.6 %Normal4.5-6.2The [facility] CenterComment on above:Performed By: #### HIV12 #### [facility] [address] [place] [address] Dr. Juan Jose BandaTYPE AND SCREENon 56-77-0437YLDC AND SCREENNegativeNoSheltering Arms HospitalComment on above:Performed By: #### TNS #### [facility] [address] [place] [address] Dr. Juan Jose BandaCovid-19 PCR ([facility])on 20-02-0854LRSJ-CoV-2 (COVID-19) RNA ISAAC+probe Ql (Unsp spec)Not detectedNormalNOT DETECTEDThe [facility] Comment on above:Result Comment: When diagnostic testing is negative, the [...] for this test is supported by the [place] of Health and Human Service's declaration that circumstances exist to justify the emergency use of in vitro diagnostics for the detection and/or diagnosis of the virus that causes COVID-19. This EUA will remain in effect for the duration of the COVID-19 declaration justifying emergency of IVDs, unless it is terminated or revoked by the FDA (after which the test may no longer be used).Performed By: #### RPRQ #### [facility] [address] [place] [address] Dr. Juan Jose Alegria AND B AGon 45-70-1192IBWMIRLMNKFXLProMedica Flower Hospital on above:Result Comment: Negative for Flu A protein angiten. Infection due to Flu A cannot be ruled out. FluA angiten in the sample may be below the detection limit of the test.Performed By: #### SEDR #### [facility] [address] [place] [address] Dr. Juan Jose OspinaUBNEGHSLicking Memorial Hospital on above: Result Comment: Negative for Flu B protein antigen. Infection due to Flu B cannot be ruled out. FluB antigen in the sample may be below the detection limit of the test.Performed By: #### SEDR #### [facility] [address] [place] [address] Dr. Juan Jose Alegria AGNegativeNormalNEGATIVE SEE COMMENTThe [facility] on above:Performed By: #### SEDR #### [facility] [address] [place] [address] Dr. Juan Jose Infante AGNegativeNormalNEGATIVE SEE COMMENTShelby Memorial Hospitalment on above:Performed By: #### SEDR #### [facility] [address] [place] [address] Dr. Juan Jose BandaINTERNAL CONTROLSWithin Normal LimitsNormalWithin Normal Limits The [facility] CenterCombaraga county memorial hospital on above:Performed By: #### SEDR #### [facility] [address] [place] [address] Dr. Juan Jose Rosado AUTO DIFFon 69-99-1117FTMZ #0.0 103/ulNormal0.0-0.1The [facility] on above:Performed By: #### SEDR #### [facility] [address] [place] [address] Dr. Juan Jose BandaBasophils/100 WBC (Bld)0.3 %Normal0.2-2.0The [facility] Comment on above:Performed By: #### SEDR #### [facility] [address] [place] [address] Dr. Juan Jose Sims #0.1 103/ulNormal0.0-0.7The [facility] CenterComment on above: Performed By: #### SEDR #### [facility] [address] [place] [address] Dr. Juan Jose Faustosinophils/100 WBC (Bld)1.3 %Normal0.9-7.0The [facility] Comment on above:Performed By: #### SEDR #### [facility] [address] [place] [address] Dr. Juan Jose Faustrythrocyte distribution width (RBC) [Ratio]11.4 %Pkzvge18.0-15.0 [facility] GeneralComment on above:Performed By: #### SEDR #### [facility] [address] [place] [address] Dr. Juan Jose BandaHematocrit (Bld) [Volume fraction]35.6 %Critically low36.0-48.0 [facility] GeneralComment on above:Performed By: #### SEDR #### [facility] [address] [place] [address] Dr. Juan Jose BandaHemoglobin (Bld) [Mass/Vol]12.9 g/bAUcgfof27.0-16.0[facility] GeneralComment on above:Performed By: #### SEDR #### [facility] [address] [place] [address] Dr. Juan Jose Daugherty #0.04 10e3/ulCritically high0.00-0.03The [facility] Comment on above:Performed By: #### SEDR #### [facility] [address] [place] [address] Dr. Juan Jose Daugherty %0.5 %Normal0.0-0.5The [facility] CenterComment on above: Performed By: #### SEDR #### [facility] [address] [place] [address] Dr. Juan Jose Banerjee #2.2 103/ulNormal1.2-3.8ThRiverside Methodist HospitalComment on above:Performed By: #### SEDR #### [facility] [address] [place] [address] Dr. Juan Jose Snowmphocytes/100 WBC (Bld)25.8 %Ktilvi64.5-60.0[facility] GeneralComment on above:Performed By: #### SEDR #### [facility] [address] [place] [address] Dr. Juan Jose Ramirez DIFF REQNONormalThe [facility] CenterComment on above: Performed By: #### SEDR #### [facility] [address] [place] [address] Dr. Juan Jose Toure (RBC) [Entitic mass]29.9 rcRpijte16.7-34.0[facility] GeneralComment on above:Performed By: #### SEDR #### [facility] [address] [place] [address] Dr. Juan Jose Toure (RBC) [Mass/Vol]36.2 g/dLCritically high29.9-35.2[facility] GeneralComment on above:Performed By: #### SEDR #### [facility] [address] [place] [address] Dr. Juan Jose Cisneros (RBC) [Entitic vol]82.4 lJOiitky99.0-99.0[facility] GeneralComment on above:Performed By: #### SEDR #### [facility] [address] [place] [address] Dr. Juan Jose Pedro #0.9 103/ulCritically high0.3-0.8ThRiverside Methodist Hospital Comment on above:Performed By: #### SEDR #### [facility] [address] [place] [address] Dr. Juan Jose Puriocytes/100 WBC (Bld)9.9 %Normal1.7-12.0[facility] Comment on above:Performed By: #### SEDR #### [facility] [address] [place] [address] Dr. Juan Jose Farr #5.4 103/ulNormal1.4-6.5The [facility] CenterComment on above:Performed By: #### SEDR #### [facility] [address] [place] [address] Dr. Juan Jose Valerioophils/100 WBC (Bld)62.2 %Ypbtuv45.0-75.0The [facility] CenterComment on above:Performed By: #### SEDR #### [facility] [address] [place] [address] Dr. Juan Jose Muñozlet mean volume (Bld) [Entitic vol]11.7 fLNormal9.5-13.5The [facility] CenterComment on above:Performed By: #### SEDR #### [facility] [address] [place] [address] Dr. Juan Jose BandaPLT205 103/cuIqynvr327-369Scr [facility] CenterCombaraga [facility] hospital on above: Performed By: #### SEDR #### [facility] [address] [place] [address] Dr. Juan Jose BandaRBC4.32 106/ulNormal4.20-5.40The [facility] CenterCombaraga county memorial hospital on above:Performed By: #### SEDR #### [facility] [address] [place] [address] Dr. Juan Jose BandaWBC8.6 103/ulNormal4.0-11.0The [facility] CenterCombaraga county memorial hospital on above: Performed By: #### SEDR #### [facility] [address] [place] [address] Dr. Juan Jose Pimentel URINE PROFILEon 60-42-9082Ebmmwsbgn Ql (U)NegativeNormal NEGATIVEThe [facility] CenterCombaraga county memorial hospital on above:Performed By: #### HIV12 #### [facility] [address] [place] [address] Dr. Juan Jose Kumararity (U)CLEARNormalCLEARThe [facility] CenterComment on above: Performed By: #### HIV12 #### [facility] [address] [place] [address] Dr. Juan Jose Oliver (U)LT. YELLOWNormalYELLOWCleveland Clinic Akron GeneralComment on above:Performed By: #### HIV12 #### [facility] [address] [place] [address] Dr. Juan Jose Mtz micrscopic examination will be performed if indicated. NormalCleveland Clinic Akron GeneralComment on above:Performed By: #### HIV12 #### [facility] [address] [address] [address] Juan Jose BandaGlucose Ql (U)NegativeNormalNEGATIVECleveland Clinic Akron GeneralComment on above:Performed By: #### HIV12 #### [facility] [address] [place] [address] Dr. Juan Jose BandaHemoglobin Ql (U)NegativeNormalNEGWestern Reserve Hospital Comment on above:Performed By: #### HIV12 #### [facility] [address] [place] [address] Dr. Juan Jose BandaKetones Ql (U)NegativeNormalNEGATIVECleveland Clinic Akron GeneralComment on above:Performed By: #### HIV12 #### [facility] [address] [place] [address] Dr. Juan Jose BandaLEUKOCYTESSMALLAbnormalNEGWestern Reserve HospitalCombaraga county memorial hospital on above:Performed By: #### HIV12 #### [facility] [address] [place] [address] Dr. Juan Jose BandaNitrite Ql (U)NegativeNormalNEGWestern Reserve HospitalComment on above:Performed By: #### HIV12 #### [facility] [address] [place] [address] Dr. Juan Jose BandapH (U)6.0 [pH]Normal5-9[facility] GeneralComment on above: Performed By: #### HIV12 #### [facility] [address] [place] [address] Dr. Juan Jose BandaSPEC GRAVITY<=1.190Tluayltj9.005-<=1.025[facility] Comment on above:Performed By: #### HIV12 #### [facility] [address] [place] [address] Dr. Juan Jose Hinton PROTEINNegativeNormalNEGATIVE/ TRACECleveland Clinic [facility]ron General Comment on above:Performed By: #### HIV12 #### [facility] [address] [place] [address] Dr. Juan Jose Anne MICRO INDINDICATEDMiami Valley HospitalComment on above: Performed By: #### HIV12 #### [facility] [address] [place] [address] Dr. Juan Jose Jiménezbilinogen Qn (U)0.2 {Tyler'U}/dLNormal0.2 - 1.0[facility] GeneralComment on above:Performed By: #### HIV12 #### [facility] [address] [place] [address] Dr. Juan Jose Hamm QUANT HCGon 63-59-9508RPQ OCQPH19116 mIU/mLNormalCleveland Clinic Akron GeneralComment on above:Performed By: #### RPRQ #### [facility] [address] [place] [address] Dr. Juan Jose Jessica RANGESEE Good Samaritan HospitalComment on above: Result Comment: 5-50 0.2-1 WEEK 50-500 1-2 WEEKS 100-5,000 2-3 WEEKS 500-10,000 3-4 WEEKS 1,000-50,000 4-5 WEEKS 10,000-100,000 5-6 WEEKS 15,000-200,000 6-8 WEEKS 10,000-100,000 2-3 MONTHSPerformed By: #### RPRQ #### [facility] [address] [place] [address] Dr. Juan Jose LaraGNANCY URon 84-25-4851SKDMOXWMW, QUALPositiveAbnormalNEGATIVE The [facility] CenterComment on above:Performed By: #### HIV12 #### [facility] [address] [place] [address] Dr. Juan Jose Oneill CHEM 8 (BAS METB)on 76-20-5523Xxtcd gap [Moles/Vol]9.4 mmol/LNormalCleveland Clinic Akron GeneralComment on above:Performed By: #### RPRQ #### [facility] [address] [address] [address] Juan Jose BandaCalcium [Mass/Vol]8.8 mg/dLNormal8.5-10.1The [facility] Comment on above:Performed By: #### RPRQ #### [facility] [address] [address] [address] Juan Jose BandaChloride [Moles/Vol]102 mmol/LIfuaiy13-440Epc [facility] Comment on above:Performed By: #### RPRQ #### [facility] [address] [address] [address] Juan Jose BandaCO2 [Moles/Vol]28.0 mmol/RRuqktu52.0-32.0The [facility] Comment on above:Performed By: #### RPRQ #### [facility] [address] [address] [address] Juan Jose BandaCreatinine [Mass/Vol]0.66 mg/dLNormal0.55-1.02The [facility] CenterComment on above:Performed By: #### RPRQ #### [facility] [address] [address] [address] Juan Jose FaustGFR-AF EAST TIMORESE>60Normal>=60The [facility] CenterComment on above:Performed By: #### RPRQ #### [facility] [address] [address] [address] Juan Jose FaustGFR-NON AF EAST TIMORESE>60Normal>=60The [facility] CenterComment on above:Performed By: #### RPRQ #### [facility] [address] [address] [address] Juan Jose BandaGlucose [Mass/Vol]92 mg/yDRdkvkk81-901Ajp [facility] Comment on above:Performed By: #### RPRQ #### [facility] [address] [place] [address] Dr. Juan Jose BandaPotassium [Moles/Vol]3.4 mmol/LCritically low3.5-5.1The [facility]. [facility] Centerment on above:Performed By: #### RPRQ #### [facility] [address] [address] [address] Juan Jose Pinedaum [Moles/Vol]136 mmol/NAvtkkv505-975Cvn [facility] Comment on above:Performed By: #### RPRQ #### [facility] [address] [address] [address] Juan Jose Thompson nitrogen [Mass/Vol]9.0 mg/dLNormal6.4-19.3The [facility] CenterComment on above:Performed By: #### RPRQ #### [facility] [address] [address] [address] Juan Jose Thompson nitrogen/Creatinine [Mass ratio]13.6 mg/mgNoalThe [facility] CenterComment on above:Performed By: #### RPRQ #### [facility] [address] [place] [address] Dr. Juan Jose France MICROSCOPIC ONLYon 45-99-4930VRBMYBAILESWXDhhivlxcVJBY SEEN [facility] GeneralComment on above:Performed By: #### HIV12 #### [facility] [address] [place] [address] Dr. Juan Jose Batres identified Cx Nom (U)NOT INDICATEDNoMemorial Health System [facility] on above:Performed By: #### HIV12 #### [facility] [address] [place] [address] Dr. Juan Jose BedollaE SEENNormalNONE SEENCleveland Clinic Akron GeneralCombaraga county memorial hospital on above:Performed By: #### HIV12 #### [facility] [address] [place] [address] Dr. Juan Jose Santoyo LM Nom (Urine sed)NONE SEENNormalNONE SEENLakeHealth Beachwood [facility] on above:Performed By: #### HIV12 #### [facility] [address] [place] [address] Dr. Ingram ChangEpithelial cells LM Ql (Urine sed)MANYAbnormalNONE SEEN /RAREThe Toño HospitalComment on above:Performed By: #### HIV12 #### [facility] [address] [address] [address] Juan Jose TrippCOUSTRACEAbnormalNONE SEENCleveland Clinic Akron GeneralComment on above:Performed By: #### HIV12 #### [facility] [address] [address] [address] Juan Jose BandaXzqaxADC6-6Slipij3-4Sel [facility] CenterComment on above:Performed By: #### HIV12 #### [facility] [address] [address] [address] Juan Jose BandaWBC0-2AbnormalNONE SEENThe [facility] CenterComment on above: Performed By: #### HIV12 #### [facility] [address] [address] [address] Juan Jose Narayan PREG TVon [id number] PREG TVEXAMINATION: US PREG TV HISTORY: Missed period COMPARISON: [...] Electronically authenticated by: LUISA ARCHIBALD Date: 2022-06-18 17:27NoSheltering Arms HospitalABO AND RH TYPEon [id number] and Rh group Nom (Bld)ABO Rh Typing O Rh PositiveNoSheltering Arms HospitalComment on above:Performed By: #### ABORH #### [facility] [address] [address] [address] Juan Jose BandaAMYLASEon 05-67-3487Ynwgjnx [Catalytic activity/Vol]33 U/LNormal 25-115[facility] GeneralComment on above:Performed By: #### URCX #### [facility] [address] [place] [address] Dr. Juan Jose Rosado AUTO DIFFon [id number] #0.0 103/ulNormal0.0-0.1[facility] GeneralComment on above:Performed By: #### CBCMAN #### [facility] [address] [place] [address] Dr. Juan Jose BandaBasophils/100 WBC (Bld)0.4 %Normal0.2-2.0[facility] Comment on above:Performed By: #### CBCMAN #### [facility] [address] [place] [address] Dr. Juan Jose Sims #0.1 103/ulNormal0.0-0.7The [facility] CenterComment on above: Performed By: #### CBCJESSICA #### [facility] [address] [place] [address] Dr. Juan Jose Faustosinophils/100 WBC (Bld)2.2 %Normal0.9-7.0The [facility] Comment on above:Performed By: #### CBCJESSICA #### [facility] [address] [place] [address] Dr. Juan Jose Faustrythrocyte distribution width (RBC) [Ratio]11.6 %Jrfqxu64.0-15.0 [facility] GeneralComment on above:Performed By: #### CBCMAN #### [facility] [address] [place] [address] Dr. Juan Jose BandaHematocrit (Bld) [Volume fraction]35.1 %Critically low36.0-48.0 [facility] GeneralComment on above:Performed By: #### CBCMAN #### [facility] [address] [place] [address] Dr. Juan Jose BandaHemoglobin (Bld) [Mass/Vol]12.5 g/sDKydqib64.0-16.0[facility] GeneralComment on above:Performed By: #### CBCMAN #### [facility] [address] [place] [address] Dr. Juan Jose Daugherty #0.02 10e3/ulNormal0.00-0.03The [facility] CenterComment on above:Performed By: #### CBCJESSICA #### [facility] [address] [place] [address] Dr. Juan Jose Daugherty %0.4 %Normal0.0-0.5The [facility] CenterComment on above: Performed By: #### CBCJESSICA #### [facility] [address] [place] [address] Dr. Juan Jose Banerjee #1.8 103/ulNormal1.2-3.8The [facility] CenterComment on above:Performed By: #### DOUG #### [facility] [address] [place] [address] Dr. Juan Jose Martinhocytes/100 WBC (Bld)31.8 %Cuikge90.5-60.0The [facility] CenterComment on above:Performed By: #### DOUG #### [facility] [address] [place] [address] Dr. Juan Jose FullerUAL DIFF REQNONormalThe [facility] CenterComment on above: Performed By: #### DOUG #### [facility] [address] [place] [address] Dr. Juan Jose Medeiros (RBC) [Entitic mass]29.9 tzItmuxj20.7-34.0The [facility] CenterComment on above:Performed By: #### DOUG #### [facility] [address] [place] [address] Dr. Juan Jose Toure (RBC) [Mass/Vol]35.6 g/dLCritically high29.9-35.2The [facility] CenterComment on above:Performed By: #### CBCJESSICA #### [facility] [address] [place] [address] Dr. Juan Jose Cisneros (RBC) [Entitic vol]84.0 bRWfpfgx74.0-99.0The [facility] CenterComment on above:Performed By: #### DOUG #### [facility] [address] [place] [address] Dr. Juan Jose Pedro #0.6 103/ulNormal0.3-0.8The [facility] CenterComment on above:Performed By: #### DOUG #### [facility] [address] [place] [address] Dr. Juan Jose Puriocytes/100 WBC (Bld)10.4 %Normal1.7-12.0The [facility] Comment on above:Performed By: #### DOUG #### [facility] [address] [place] [address] Dr. Juan Jose Farr #3.1 103/ulNormal1.4-6.5The [facility] CenterComment on above:Performed By: #### DOUG #### [facility] [address] [place] [address] Dr. Juan Jose Parrautrophils/100 WBC (Bld)54.8 %Pjdoim04.0-75.0The [facility] CenterComment on above:Performed By: #### DOUG #### [facility] [address] [place] [address] Dr. Juan Jose Muñozlet mean volume (Bld) [Entitic vol]11.8 fLNormal9.5-13.5The [facility] CenterComment on above:Performed By: #### DOUG #### [facility] [address] [place] [address] Dr. Juan Jose BandaPLT185 103/pkFkjqge361-564Rug [facility] CenterComment on above: Performed By: #### DOUG #### [facility] [address] [place] [address] Dr. Juan Jose BandaRBC4.18 106/ulCritically low4.20-5.40The [facility] CenterComment on above:Performed By: #### DOUG #### [facility] [address] [place] [address] Dr. Juan Jose BandaWBC5.6 103/ulNormal4.0-11.0The [facility] CenterComment on above: Performed By: #### DOUG #### [facility] [address] [place] [address] Dr. Juan Jose BandaLIPASEon 33-28-2486Nzajjf [Catalytic activity/Vol]69.0 U/L Critically low73.0-393.0[facility] GeneralComment on above:Performed By: #### URCX #### [facility] [address] [address] [address] Juan Jose BandaPREG QUANT HCGon 06-52-1200RLB SASEY95564 mIU/mLNormalThe [facility] CenterComment on above:Performed By: #### RPRQ #### [facility] [address] [address] [address] Juan Jose GrimesG RANGESEE [facility] Samaritan HospitalComment on above: Result Comment: 5-50 0.2-1 WEEK 50-500 1-2 WEEKS 100-5,000 2-3 WEEKS 500-10,000 3-4 WEEKS 1,000-50,000 4-5 WEEKS 10,000-100,000 5-6 WEEKS 15,000-200,000 6-8 WEEKS 10,000-100,000 2-3 MONTHSPerformed By: #### RPRQ #### [facility] [address] [place] [address] Dr. Juan Jose Narayan PREG TVon [id number] PREG TVEXAM: US PREG TV HISTORY: Pain COMPARISON: Correlation [...] Electronically authenticated by: Marita SINHA Date: 2022-06-02 01:30[facility] AUTO DIFFon [id number] #0.0 103/ulNormal0.0-0.1[facility] GeneralComment on above:Performed By: #### HIV12 #### [facility] [address] [place] [address] Dr. Juan Jose BandaBasophils/100 WBC (Bld)0.5 %Normal0.2-2.0[facility] Comment on above:Performed By: #### HIV12 #### [facility] [address] [place] [address] Dr. Juan Jose Sims #0.1 103/ulNormal0.0-0.7The [facility] CenterComment on above: Performed By: #### HIV12 #### [facility] [address] [place] [address] Dr. Juan Jose Faustosinophils/100 WBC (Bld)1.2 %Normal0.9-7.0The [facility] Comment on above:Performed By: #### HIV12 #### [facility] [address] [place] [address] Dr. Juan Jose Faustrythrocyte distribution width (RBC) [Ratio]11.6 %Cfntki59.0-15.0 The [facility] CenterComment on above:Performed By: #### HIV12 #### [facility] [address] [place] [address] Dr. Juan Jose BandaHematocrit (Bld) [Volume fraction]36.0 %Egvydz44.0-48.0The [facility] CenterComment on above:Performed By: #### HIV12 #### [facility] [address] [place] [address] Dr. Juan Jose BandaHemoglobin (Bld) [Mass/Vol]12.7 g/fIVicxmw26.0-16.0The Urs[facility] HospitalComment on above:Performed By: #### HIV12 #### [facility] [address] [place] [address] Dr. Juan Jose Daugherty #0.03 10e3/ulNormal0.00-0.03The [facility] CenterComment on above:Performed By: #### HIV12 #### [facility] [address] [place] [address] Dr. Juan Jose Daugherty %0.4 %Normal0.0-0.5The [facility] CenterComment on above: Performed By: #### HIV12 #### [facility] [address] [place] [address] Dr. Juan Jose Banerjee #2.4 103/ulNormal1.2-3.8The [facility] CenterComment on above:Performed By: #### HIV12 #### [facility] [address] [place] [address] Dr. Juan Jose Martinhocytes/100 WBC (Bld)29.8 %Dcqqwq13.5-60.0The [facility] CenterComment on above:Performed By: #### HIV12 #### [facility] [address] [place] [address] Dr. Juan Jose FullerUAL DIFF REQNONormalThe [facility] CenterComment on above: Performed By: #### HIV12 #### [facility] [address] [place] [address] Dr. Juan Jose Toure (RBC) [Entitic mass]29.9 gnDjefxo27.7-34.0The [facility] CenterComment on above:Performed By: #### HIV12 #### [facility] [address] [place] [address] Dr. Juan Jose Toure (RBC) [Mass/Vol]35.3 g/dLCritically high29.9-35.2The [facility] CenterComment on above:Performed By: #### HIV12 #### [facility] [address] [place] [address] Dr. Juan Jose Toure (RBC) [Entitic vol]84.7 qLHdjysp38.0-99.0The [facility] CenterComment on above:Performed By: #### HIV12 #### [facility] [address] [place] [address] Dr. Juan Jose Pedro #0.8 103/ulNormal0.3-0.8The [facility] CenterComment on above:Performed By: #### HIV12 #### [facility] [address] [place] [address] Dr. Juan Jose Puriocytes/100 WBC (Bld)9.4 %Normal1.7-12.0The [facility] Comment on above:Performed By: #### HIV12 #### [facility] [address] [place] [address] Dr. Juan Jose Farr #4.8 103/ulNormal1.4-6.5The [facility] CenterComment on above:Performed By: #### HIV12 #### [facility] [address] [place] [address] Dr. Juan Jose Parrautrophils/100 WBC (Bld)58.7 %Etlqbu88.0-75.0The [facility] CenterComment on above:Performed By: #### HIV12 #### [facility] [address] [place] [address] Dr. Juan Jose Ambrose mean volume (Bld) [Entitic vol]11.5 fLNormal9.5-13.5The [facility] CenterComment on above:Performed By: #### HIV12 #### [facility] [address] [place] [address] Dr. Juan Jose BandaPLT218 103/dvWziffh051-801Heg [facility] CenterComment on above: Performed By: #### HIV12 #### [facility] [address] [place] [address] Dr. Juan Jose BandaRBC4.25 106/ulNormal4.20-5.40The [facility] CenterComment on above:Performed By: #### HIV12 #### [facility] [address] [place] [address] Dr. Juan Jose BandaWBC8.2 103/ulNormal4.0-11.0[facility] on above: Performed By: #### HIV12 #### [facility] [address] [address] [address] Juan Jose Pimentel URINE PROFILEon 49-59-3303Uosukumbv Ql (U)NegativeNormal NEGATIVECleveland Clinic Akron GeneralComment on above:Performed By: #### RPRQ #### [facility] [address] [place] [address] Dr. Juan Jose Kumararity (U)CLEARNormalCLEARCleveland Clinic Akron GeneralComment on above: Performed By: #### RPRQ #### [facility] [address] [place] [address] Dr. Juan Jose Oliver (U)LT. YELLOWNormalYELLOWCleveland Clinic Akron GeneralComment on above:Performed By: #### RPRQ #### [facility] [address] [place] [address] Dr. Juan Jose [facility]enS[facility] micrscopic examination will be performed if indicated. NormalCleveland Clinic Akron GeneralComment on above:Performed By: #### RPRQ #### [facility] [address] [place] [address] Dr. Juan Jose BandaGlucose Ql (U)NegativeNormalNEGATIVEShelby Memorial Hospitalment on above:Performed By: #### RPRQ #### [facility] [address] [place] [address] Dr. Juan Jose BandaHemoglobin Ql (U)NegativeNormalNEGATIVEOhiohealth Grove City Methodist Hospital on above:Performed By: #### RPRQ #### [facility] [address] [place] [address] Dr. Juan Jose BandaKetones Ql (U)TRACEAbnormalNEGATIVECleveland Clinic Akron GeneralComment on above:Performed By: #### RPRQ #### [facility] [address] [place] [address] Dr. Juan Jose BandaLEUKOCYTESSMALLAbnormalNEGATIVELakeHealth Beachwood Medical Center on above:Performed By: #### RPRQ #### [facility] [address] [place] [address] Dr. Juan Jose Rey Ql (U)NegativeNormalNEGATIVECleveland Clinic Akron GeneralComment on above:Performed By: #### RPRQ #### [facility] [address] [place] [address] Dr. Juan Jose BandapH (U)5.5 [pH]Normal5-9[facility] GeneralComment on above: Performed By: #### RPRQ #### [facility] [address] [place] [address] Dr. Juan Jose BandaSPEC GRAVITY1.734Xioqvh9.005-<=1.025The [facility] CenterComment on above:Performed By: #### RPRQ #### [facility] [address] [place] [address] Dr. Juan Jose Hinton PROTEINNegativeNormalNEGATIVE/ TRACECleveland Clinic [facility] General Comment on above:Performed By: #### RPRQ #### [facility] [address] [place] [address] Dr. Juan Jose Anne MICRO INDINDAccess Hospital DaytonComment on above: Performed By: #### RPRQ #### [facility] [address] [place] [address] Dr. Juan Jose Jiménezbilinogen Qn (U)0.2 {Tyler'U}/dLNormal0.2 - 1.0[facility] GeneralComment on above:Performed By: #### RPRQ #### [facility] [address] [place] [address] Dr. Juan Jose Hamm QUANT HCGon [id number] KWCEP6493 mIU/mLNormalThe [facility] CenterComment on above:Performed By: #### URCX #### [facility] [address] [place] [address] Dr. Juan Jose Jessica RANGESEE Good Samaritan HospitalComment on above: Result Comment: 5-50 0.2-1 WEEK 50-500 1-2 WEEKS 100-5,000 2-3 WEEKS 500-10,000 3-4 WEEKS 1,000-50,000 4-5 WEEKS 10,000-100,000 5-6 WEEKS 15,000-200,000 6-8 WEEKS 10,000-100,000 2-3 MONTHSPerformed By: #### URCX #### [facility] [address] [place] [address] Dr. Juan Joes BandaPROF 14(COMP METB)on 70-72-2196Ujzuioi [Mass/Vol]3.7 g/dLNormal 3.4-5.0The [facility] CenterComment on above:Performed By: #### HIV12 #### [facility] [address] [place] [address] Dr. Juan Jose BandaAlbumin/Globulin [Mass ratio]1.4 {ratio}NormalThe [facility] CenterComment on above:Performed By: #### HIV12 #### [facility] [address] [place] [address] Dr. Juan Jose Hugo [Catalytic activity/Vol]66 U/WZzepiu62-871Ezd [facility] CenterComment on above:Performed By: #### HIV12 #### [facility] [address] [place] [address] Dr. Juan Jose Stafford [Catalytic activity/Vol]18 U/JQrsime36-75Yba [facility] CenterComment on above:Performed By: #### HIV12 #### [facility] [address] [place] [address] Dr. Juan Jose Mcmahon gap [Moles/Vol]11.5 mmol/LNormalThe [facility] Comment on above:Performed By: #### HIV12 #### [facility] [address] [place] [address] Dr. Juan Jose BandaAST [Catalytic activity/Vol]10 U/LCritically iwr12-48Wsm [facility] CenterComment on above:Performed By: #### HIV12 #### [facility] [address] [place] [address] Dr. Juan Jose BandaBilirubin [Mass/Vol]0.4 mg/dLNormal0.2-1.0The [facility] Comment on above:Performed By: #### HIV12 #### [facility] [address] [address] [address] Juan Jose BandaCalcium [Mass/Vol]8.3 mg/dLCritically low8.5-10.1The [facility] on above:Performed By: #### HIV12 #### [facility] [address] [address] [address] Juan Jose BandaChloride [Moles/Vol]104 mmol/PLcgmev24-717Lxs [facility] Comment on above:Performed By: #### HIV12 #### [facility] [address] [place] [address] Dr. Juan Jose BandaCO2 [Moles/Vol]27.3 mmol/BXheonf65.0-32.0The [facility] Comment on above:Performed By: #### HIV12 #### [facility] [address] [place] [address] Dr. Juan Jose BandaCreatinine [Mass/Vol]0.72 mg/dLNormal0.55-1.02The [facility] CenterComment on above:Performed By: #### HIV12 #### [facility] [address] [place] [address] Dr. Juan Jose FaustGFR-AF EAST TIMORESE>60Normal>=60The [facility] Medical Centerment on above:Performed By: #### HIV12 #### [facility] [address] [place] [address] Dr. Juan Jose FaustGFR-NON AF EAST TIMORESE>60Normal>=60The [facility] CenterCombaraga county memorial hospital on above:Performed By: #### HIV12 #### [facility] [address] [place] [address] Dr. Juan Jose BandaGlobulin (S) [Mass/Vol]2.7 g/dLNormalThe [facility] CenterComment on above:Performed By: #### HIV12 #### [facility] [address] [place] [address] Dr. Juan Jose BandaGlucose [Mass/Vol]95 mg/eMUcmwoy42-647Isn [facility] Comment on above:Performed By: #### HIV12 #### [facility] [address] [address] [address] Juan Jose BandaPotassium [Moles/Vol]3.8 mmol/LNormal3.5-5.1The [facility] Comment on above:Performed By: #### HIV12 #### [facility] [address] [address] [address] Juan Jose BandaProtein [Mass/Vol]6.4 g/dLNormal6.4-8.2The [facility] Comment on above:Performed By: #### HIV12 #### [facility] [address] [address] [address] Juan Jose BandaSodium [Moles/Vol]139 mmol/RLujtmu979-590Qsx [facility] Comment on above:Performed By: #### HIV12 #### [facility] [address] [place] [address] Dr. Juan Jose BandaUrea nitrogen [Mass/Vol]9.0 mg/dLNormal6.4-19.3The [facility] CenterComment on above:Performed By: #### HIV12 #### [facility] [address] [place] [address] Dr. Juan Jose Thompson nitrogen/Creatinine [Mass ratio]12.5 mg/mgNoSheltering Arms HospitalComment on above:Performed By: #### HIV12 #### [facility] [address] [place] [address] Dr. Juan Jose France MICROSCOPIC ONLYon [id number]T SEEN [facility] GeneralComment on above:Performed By: #### RPRQ #### [facility] [address] [place] [address] Dr. Juan Jose Batres identified Cx Nom (U)INDICATEDMiami Valley HospitalComment on above:Performed By: #### RPRQ #### [facility] [address] [place] [address] Dr. Juan Jose Dao SEENNoalNONE SEENCleveland Clinic Akron GeneralComment on above:Performed By: #### RPRQ #### [facility] [address] [place] [address] Dr. Juan Jose BandaCrystals LM Nom (Urine sed)NONE SEENNormalNONE SEENThe [facility] CenterComment on above:Performed By: #### RPRQ #### [facility] [address] [place] [address] Dr. Ingram ChangEpithelial cells LM Ql (Urine sed)RARENormalNONE SEEN /RAREThe [facility] CenterComment on above:Performed By: #### RPRQ #### [facility] [address] [place] [address] Dr. Juan Jose BandaMUCOUSNONE SEENNormalNONE SEENThe [facility] CenterComment on above:Performed By: #### RPRQ #### [facility] [address] [place] [address] Dr. Juan Jose BandaEngcfIVR7-7Kehosm3-9Uxb [facility] CenterComment on above:Performed By: #### RPRQ #### [facility] [address] [place] [address] Dr. Juan Jose BandaUxvheRUW44-42PsxbltluYKST SEENThe [facility] CenterComment on above: Performed By: #### RPRQ #### [facility] [address] [place] [address] Dr. Juan Jose BandaCT ABD/PELVIS WO CONon [id number] ABD/PELVIS WO CONEXAMINATION: CT ABD/PELVIS WO CON, 04/29/2022 2:41 AM [...] Status post appendectomy. Lymph Nodes: No lymphadenopathy. Mesentery/peritoneum: No free fluid or free air. Retroperitoneum: No mass. Vasculature: No visible abdominal aortic or iliac artery aneurysm. Pelvis: Uterus is present. No suggestion of pelvic mass. Bones/Soft Tissues: No acute abnormality. IMPRESSION: No evidence of urinary tract calculi or hydronephrosis. Electronically authenticated by: ALICJA AVILA Date: 2022-04-29 03:19[facility] URINE PROFILEon 38-13-2425Zodqwckmn Ql (U)NegativeNormal NEGATIVECleveland Clinic Akron GeneralComment on above:Performed By: #### CBCMAN #### [facility] [address] [address] [address] Juan Jose Crowell (U)SL CLOUDYAbnormalCLEARThRiverside Methodist HospitalComment on above:Performed By: #### CBCMAN #### [facility] [address] [address] [address] Juan Jose Oliver (U)YELLOWNormalYELLOWCleveland Clinic Akron GeneralComment on above: Performed By: #### CBCMAN #### [facility] [address] [address] [address] Juan Jose Mtz micrscopic examination will be performed if indicated. NormalCleveland Clinic Akron GeneralComment on above:Performed By: #### CBCMAN #### [facility] [address] [address] [address] Juan Jose BandaGlucose Ql (U)NegativeNormalNEGATIVECleveland Clinic Akron GeneralComment on above:Performed By: #### CBCMAN #### [facility] [address] [address] [address] Juan Jose BandaHemoglobin Ql (U)NegativeNormalNEGATIVECleveland Clinic [facility] Comment on above:Performed By: #### CBCMAN #### [facility] [address] [address] [address] Juan Jose BandaKetones Ql (U)NegativeNormalNEGATIVECleveland Clinic Akron GeneralComment on above:Performed By: #### CBCMAN #### [facility] [address] [address] [address] Juan Jose BandaLEUKOCYTESNegativeNormalNEGATIVECleveland Clinic Akron GeneralComment on above:Performed By: #### CBCMAN #### [facility] [address] [address] [address] Juan Jose Rey Ql (U)NegativeNormalNEGATIVECleveland Clinic Akron GeneralComment on above:Performed By: #### DOUG #### [facility] [address] [place] [address] Dr. Juan Jose BandapH (U)6.0 [pH]Normal5-9[facility] GeneralComment on above: Performed By: #### DOUG #### [facility] [address] [place] [address] Dr. Juan Jose BandaSPEC GRAVITY>=1.131Zalyplzg9.005-<=1.025[facility] Comment on above:Performed By: #### DOUG #### [facility] [address] [place] [address] Dr. Juan Jose Hinton PROTEINNegativeNormalNEGATIVE/ TRACECleveland Clinic [facility] Comment on above:Performed By: #### DOUG #### [facility] [address] [place] [address] Dr. Juan Jose Anne MICRO INDNOT INDICATEDNoSheltering Arms HospitalComment on above:Performed By: #### DOUG #### [facility] [address] [place] [address] Dr. Juan Jose Jiménezbilinogen Qn (U)0.2 {Tyler'U}/dLNormal0.2 - 1.0[facility] GeneralComment on above:Performed By: #### DOUG #### [facility] [address] [place] [address] Dr. Juan Jose BandaPREGNANCY URon [id number], QUALNegativeNormalNEGATIVECleveland Clinic Akron GeneralComment on above:Performed By: #### DOUG #### [facility] [address] [place] [address] Dr. Juan Jose BandaPROCALCITONINon 70-24-8348Wpztgvvstgoxh6.04 ng/mLNormal0.00-0.08 [facility] GeneralComment on above:Result Comment: . A procalcitonin (PCT) level above [...] hours if any concentrations <2 ng/mL are obtained.Performed By: #### CBCMAN #### [facility] [address] [place] [address] Dr. Juan Jose Rosado AUTO DIFFon [id number] #0.0 103/ulNormal0.0-0.1[facility] GeneralComment on above:Performed By: #### CBC #### [facility] [address] [place] [address] Dr. Juan Jose BandaBasophils/100 WBC (Bld)0.3 %Normal0.2-2.0[facility] Comment on above:Performed By: #### CBC #### [facility] [address] [place] [address] Dr. Juan Jose Sims #0.2 103/ulNormal0.0-0.7The [facility] CenterComment on above: Performed By: #### CBC #### [facility] [address] [place] [address] Dr. Juan Jose Faustosinophils/100 WBC (Bld)2.5 %Normal0.9-7.0[facility] Comment on above:Performed By: #### CBC #### [facility] [address] [place] [address] Dr. Juan Jose Faustrythrocyte distribution width (RBC) [Ratio]11.6 %Vtvonq72.0-15.0 [facility] GeneralComment on above:Performed By: #### CBC #### [facility] [address] [place] [address] Dr. Juan Jose BandaHematocrit (Bld) [Volume fraction]38.2 %Ysujxf16.0-48.0The [facility] CenterComment on above:Performed By: #### CBC #### [facility] [address] [place] [address] Dr. Juan Jose BandaHemoglobin (Bld) [Mass/Vol]13.5 g/xPItrfnx42.0-16.0The Ursa HospitalComment on above:Performed By: #### CBC #### [facility] [address] [place] [address] Dr. Juan Jose BandaIG #0.01 10e3/ulNormal0.00-0.03The [facility] CenterComment on above:Performed By: #### CBC #### [facility] [address] [place] [address] Dr. Juan Jose BandaIG %0.2 %Normal0.0-0.5The [facility] CenterComment on above: Performed By: #### CBC #### [facility] [address] [place] [address] Dr. Juan Jose Banerjee #2.2 103/ulNormal1.2-3.8The [facility] CenterComment on above:Performed By: #### CBC #### [facility] [address] [place] [address] Dr. Juan Jose Snowmphocytes/100 WBC (Bld)33.3 %Urbazs16.5-60.0The [facility] CenterComment on above:Performed By: #### CBC #### [facility] [address] [place] [address] Dr. Juan Jose BandaMANUAL DIFF REQNONormalThe [facility] CenterComment on above: Performed By: #### CBC #### [facility] [address] [place] [address] Dr. Juan Jose Medeiros (RBC) [Entitic mass]29.6 nxAyppzw21.7-34.0The [facility] CenterComment on above:Performed By: #### CBC #### [facility] [address] [address] [address] Juan Jose ToureHC (RBC) [Mass/Vol]35.3 g/dLCritically high29.9-35.2The [facility] CenterComment on above:Performed By: #### CBC #### [facility] [address] [address] [address] Juan Jose ToureV (RBC) [Entitic vol]83.8 kAIsyaat11.0-99.0The Ursa HospitalComment on above:Performed By: #### CBC #### [facility] [address] [place] [address] Dr. Juan Jose Pedro #0.7 103/ulNormal0.3-0.8The [facility] CenterComment on above:Performed By: #### CBC #### [facility] [address] [place] [address] Dr. Juan Jose Puriocytes/100 WBC (Bld)10.2 %Normal1.7-12.0The [facility] Comment on above:Performed By: #### CBC #### [facility] [address] [place] [address] Dr. Juan Jose Farr #3.5 103/ulNormal1.4-6.5The [facility] CenterComment on above:Performed By: #### CBC #### [facility] [address] [address] [address] Juan Jose Parrautrophils/100 WBC (Bld)53.5 %Joaqry92.0-75.0The [facility] CenterComment on above:Performed By: #### CBC #### [facility] [address] [place] [address] Dr. Juan Jose Muñozlet mean volume (Bld) [Entitic vol]11.9 fLNormal9.5-13.5The [facility] CenterComment on above:Performed By: #### CBC #### [facility] [address] [place] [address] Dr. Juan Jose BandaPLT200 103/scWbyoth728-421Zrk St. [facility]'s Medical Centerment on above: Performed By: #### CBC #### [facility] [address] [place], [place] [address] Dr. Juan Jose BandaRBC4.56 106/ulNormal4.20-5.40The [facility] on above:Performed By: #### CBC #### [facility] [address] [place], [place] [address] Dr. Juan Jose BandaWBC6.5 103/ulNormal4.0-11.0The [facility] on above: Performed By: #### CBC #### [facility] [address] [place], [place] [address] Dr. Juan Jose BandaCT ABD/PELV W CONon [id number] ABD/PELV W CONEXAMINATION: CT ABD/PELV W CON HISTORY: NAUSEA WITH [...] Electronically authenticated by: YO TO Date: 2022-04-10 08:37[facility] HospitalGROUP A STREP CULTUREon 04-10-2022. pyogenes Ag Ql (Unsp spec) Culture Observations: NEGATIVE FOR GROUP A STREPTOCOCCUS.NormalThe [facility] CenterComment on above: Performed By: #### URCX #### [facility] [address] [place] [address] Dr. Juan Jose BandaLACTATE/LACTIC ACIDon 17-80-8212Xfmxyir [Moles/Vol]0.9 mmol/L Normal0.4-1.9The [facility] CenterComment on above:Performed By: #### URCX #### [facility] [address] [place] [address] Dr. Juan Jose BandaLactate [Moles/Vol]2.5 mmol/LCritically high0.4-1.9The [facility] CenterComment on above:Performed By: #### URCX #### [facility] [address] [place] [address] Dr. Juan Jose BandaPREG HCG QUALon [id number], QUALNegativeNormalNEGATIVE The [facility] CenterComment on above:Performed By: #### SEDR #### [facility] [address] [place] [address] Dr. Juan Jose BandaPROF 14(COMP METB)on 50-70-0893Oqylzae [Mass/Vol]4.3 g/dLNormal 3.4-5.0The [facility] CenterComment on above:Performed By: #### CBCMAN #### [facility] [facility] [address] [place] [address] Dr. Juan Jose BandaAlbumin/Globulin [Mass ratio]1.8 {ratio}NormalThe Ursa HospitalComment on above:Performed By: #### CBCJESSICA #### [facility] [address] [address] [address] Juan Jose Hugo [Catalytic activity/Vol]92 U/DUkcufx06-323Rka [facility] CenterComment on above:Performed By: #### DOUG #### [facility] [address] [address] [address] Juan Jose GregoryT [Catalytic activity/Vol]20 U/YKhtvwb13-78Ifx [facility] CenterComment on above:Performed By: #### CBCJESSICA #### [facility] [address] [address] [address] Juan Jose Arzolaon gap [Moles/Vol]15.4 mmol/LNormalThe [facility] Comment on above:Performed By: #### DOUG #### [facility] [address] [address] [address] Juan Jose BandaAST [Catalytic activity/Vol]17 U/XTexguq30-13Woi [facility] CenterComment on above:Performed By: #### DOUG #### [facility] [address] [address] [address] Juan Jose BandaBilirubin [Mass/Vol]1.2 mg/dLCritically high0.2-1.0The [facility] CenterComment on above:Performed By: #### DOUG #### [facility] [address] [place] [address] Dr. Juan Jose BandaCalcium [Mass/Vol]8.8 mg/dLNormal8.5-10.1[facility] Comment on above:Performed By: #### CBCJESSICA #### [facility] [address] [address] [address] Juan Jose BandaChloride [Moles/Vol]107 mmol/RXujphn22-180Avz [facility] Comment on above:Performed By: #### CBCJESSICA #### [facility] [address] [address] [address] Juan Jose BandaCO2 [Moles/Vol]23.0 mmol/UPjmlok03.0-32.0The [facility] Comment on above:Performed By: #### CBCJESSICA #### [facility] [address] [address] [address] Jaun Jose BandaCreatinine [Mass/Vol]0.95 mg/dLNormal0.55-1.02The [facility] CenterComment on above:Performed By: #### CBCJESSICA #### [facility] [address] [address] [address] Juan Jose BandaGlobulin (S) [Mass/Vol]2.4 g/dLNormalThRiverside Methodist HospitalComment on above:Performed By: #### CBCJESSICA #### [facility] [address] [address] [address] Juan Jose BandaGlucose [Mass/Vol]95 mg/uYXysnhy84-510Mkk [facility] Comment on above:Performed By: #### DOUG #### [facility] [address] [address] [address] Juan Jose BandaPotassium [Moles/Vol]3.4 mmol/LCritically low3.5-5.1The [facility] CenterComment on above:Performed By: #### CBCJESSICA #### [facility] [address] [address] [address] Juan Jose BandaProtein [Mass/Vol]6.7 g/dLNormal6.4-8.2The [facility] Comment on above:Performed By: #### CBCJESSICA #### [facility] [address] [address] [address] Juan Jose BadnaSodium [Moles/Vol]142 mmol/TMfstgh536-170Vpb [facility] Comment on above:Performed By: #### CBCJESSICA #### [facility] [address] [address] [address] Juan Jose BandaUrea nitrogen [Mass/Vol]13.0 mg/dLNormal6.4-19.3The [facility] CenterComment on above:Performed By: #### CBCJESSICA #### [facility] [address] [address] [address] Juan Jose BandaUrea nitrogen/Creatinine [Mass ratio]13.7 mg/mgNormalThRiverside Methodist HospitalComment on above:Performed By: #### CBCMAN #### [facility] [address] [place] [address] Dr. Juan Jose Barton RATE WESTERGRENon 41-05-6949WOX RATE1 mm/hrNormal<=20The [facility] CenterComment on above:Performed By: #### SEDR #### [facility] [address] [place] [address] Dr. Juan Jose BandaSTREPT SCREENon 17-55-0979HJAJU SCREEN ANegativeNormalNEGATIVEThe [facility] CenterComment on above:Performed By: #### URCX #### [facility] [address] [place] [address] Dr. Juan Jose BandaAMYLASEon 25-31-0030Cengicm [Catalytic activity/Vol]29 U/LNormal 25-115The [facility] CenterCombaraga county memorial hospital on above:Performed By: #### HIV12 #### [facility] [address] [place] [address] Dr. Juan Jose AlanC AUTO DIFFon 61-17-0883YTHE #0.0 103/ulNormal0.0-0.1[facility] GeneralComment on above:Performed By: #### RPRQ #### [facility] [address] [place] [address] Dr. Juan Jose BandaBasophils/100 WBC (Bld)0.4 %Normal0.2-2.0[facility] Comment on above:Performed By: #### RPRQ #### [facility] [address] [place] [address] Dr. Juan Jose Sims #0.1 103/ulNormal0.0-0.7The [facility] on above: Performed By: #### RPRQ #### [facility] [address] [place] [address] Dr. Juan Jose Faustosinophils/100 WBC (Bld)1.4 %Normal0.9-7.0The [facility] Comment on above:Performed By: #### RPRQ #### [facility] [address] [place] [address] Dr. Juan Jose Faustrythrocyte distribution width (RBC) [Ratio]11.5 %Yepsdn39.0-15.0 The [facility] CenterComment on above:Performed By: #### RPRQ #### [facility] [address] [place] [address] Dr. Juan Jose BandaHematocrit (Bld) [Volume fraction]36.5 %Zxzmhp31.0-48.0The Ursa HospitalComment on above:Performed By: #### RPRQ #### [facility] [address] [place] [address] Dr. Juan Jose BandaHemoglobin (Bld) [Mass/Vol]13.0 g/nOWoyvrw87.0-16.0The [facility] CenterComment on above:Performed By: #### RPRQ #### [facility] [address] [place] [address] Dr. Juan Jose Daugherty #0.02 10e3/ulNormal0.00-0.03The [facility] CenterComment on above:Performed By: #### RPRQ #### [facility] [address] [place] [address] Dr. Juan Jose Daugherty %0.3 %Normal0.0-0.5The [facility] CenterComment on above: Performed By: #### RPRQ #### [facility] [address] [place] [address] Dr. Juan Jose MartinH #2.4 103/ulNormal1.2-3.8The [facility] CenterComment on above:Performed By: #### RPRQ #### [facility] [address] [place] [address] Dr. Juan Jose Martinhocytes/100 WBC (Bld)31.4 %Uttymh30.5-60.0The [facility] CenterComment on above:Performed By: #### RPRQ #### [facility] [address] [place] [address] Dr. Juan Jose FullerUAL DIFF REQNONormalThe [facility] CenterComment on above: Performed By: #### RPRQ #### [facility] [address] [place] [address] Dr. Juan Jose Toure (RBC) [Entitic mass]29.8 mnClrwen15.7-34.0The [facility] CenterComment on above:Performed By: #### RPRQ #### [facility] [address] [place] [address] Dr. Juan Jose Toure (RBC) [Mass/Vol]35.6 g/dLCritically high29.9-35.2The [facility] CenterComment on above:Performed By: #### RPRQ #### [facility] [address] [place] [address] Dr. Juan Jose Toure (RBC) [Entitic vol]83.7 iKIhemgs16.0-99.0The [facility] CenterComment on above:Performed By: #### RPRQ #### [facility] [address] [place] [address] Dr. Juan Jose Pedro #0.9 103/ulCritically high0.3-0.8The [facility] Comment on above:Performed By: #### RPRQ #### [facility] [address] [place] [address] Dr. Juan Jose Puriocytes/100 WBC (Bld)11.1 %Normal1.7-12.0[facility] Comment on above:Performed By: #### RPRQ #### [facility] [address] [place] [address] Dr. Juan Jose Farr #4.3 103/ulNormal1.4-6.5The [facility] CenterComment on above:Performed By: #### RPRQ #### [facility] [address] [place] [address] Dr. Juan Jose Parrautrophils/100 WBC (Bld)55.4 %Ojrmbs57.0-75.0The [facility] CenterComment on above:Performed By: #### RPRQ #### [facility] [address] [place] [address] Dr. Juan Jose Ambrose mean volume (Bld) [Entitic vol]11.6 fLNormal9.5-13.5The [facility] CenterComment on above:Performed By: #### RPRQ #### [facility] [address] [place] [address] Dr. Juan Jose BandaPLT187 103/dgTjcmnw701-363Yoq [facility] on above: Performed By: #### RPRQ #### [facility] [address] [place] [address] Dr. Juan Jose BandaRBC4.36 106/ulNormal4.20-5.40The [facility] on above:Performed By: #### RPRQ #### [facility] [address] [place] [address] Dr. Juan Jose BandaWBC7.7 103/ulNormal4.0-11.0The [facility] on above: Performed By: #### RPRQ #### [facility] [address] [place] [address] Dr. Juan Jose Pimentel URINE PROFILEon 80-11-8467Vqxaiqwst Ql (U)SMALLAbnormal NEGATIVECleveland Clinic [facility] GeneralCombaraga county memorial hospital on above:Performed By: #### URCX #### [facility] [address] [place] [address] Dr. Juan Jose Crowell (U)CLEARNormalCLEARCleveland Clinic [facility] GeneralCombaraga county memorial hospital on above: Performed By: #### URCX #### [facility] [address] [place] [address] Dr. Juan Jose Oliver (U)YELLOWNormalYELLOWCleveland Clinic [facility] GeneralCombaraga county memorial hospital on above: Performed By: #### URCX #### [facility] [address] [place] [address] Dr. Juan Jose Mtz micrscopic examination will be performed if indicated. NormalThe [facility] on above:Performed By: #### URCX #### [facility] [address] [place] [address] Dr. Juan Jose BandaGlucose Ql (U)NegativeNormalNEGATIVEThe Ursa HospitalComment on above:Performed By: #### URCX #### [facility] [address] [address] [address] Juan Jose BandaHemoglobin Ql (U)NegativeNormalNEGWestern Reserve Hospital Comment on above:Performed By: #### URCX #### [facility] [address] [address] [address] Juan Jose BandaKetones Ql (U)40 mg/dlAbnormalNEGWestern Reserve Hospital Comment on above:Performed By: #### URCX #### [facility] [address] [place] [address] Dr. Juan Jose BandaLEUKOCYTESNegativeNormalNEGATIVECleveland Clinic Akron GeneralComment on above:Performed By: #### URCX #### [facility] [address] [place] [address] Dr. Juan Jose BandaNitrite Ql (U)NegativeNormalNEGWestern Reserve HospitalComment on above:Performed By: #### URCX #### [facility] [address] [place] [address] Dr. Juan Jose BandapH (U)5.5 [pH]Normal5-9[facility] GeneralComment on above: Performed By: #### URCX #### [facility] [address] [place] [address] Dr. Juan Jose BandaSPEC GRAVITY1.640Kxpbxboa2.005-<=1.025[facility] Comment on above:Performed By: #### URCX #### [facility] [address] [place] [address] Dr. Juan Jose Hinton PROTEINNegativeNormalNEGATIVE/ TRACECleveland Clinic [facility] Comment on above:Performed By: #### URCX #### [facility] [address] [place] [address] Dr. Juan Jose Anne MICRO INDNOT INDICATEDMiami Valley HospitalComment on above:Performed By: #### URCX #### [facility] [address] [place] [address] Dr. Juan Jose Jiménezbilinogen Qn (U)0.2 {Tyler'U}/dLNormal0.2 - 1.0The [facility] CenterComment on above:Performed By: #### URCX #### [facility] [address] [place] [address] Dr. Juan Jose BandaLIPASEon 90-52-4113Szzelq [Catalytic activity/Vol]77.0 U/LNormal 73.0-393.0The [facility] CenterComment on above:Performed By: #### HIV12 #### [facility] [address] [place] [address] Dr. Juan Jose BandaPREGNANCY URon 44-24-1639HKZKWMHSC, QUALNegativeNormalNEGATIVEThe [facility] CenterComment on above:Performed By: #### URCX #### [facility] [address] [place] [address] Dr. Juan Jose BandaPROF 14(COMP METB)on 16-59-9922Dmeqqjo [Mass/Vol]4.4 g/dLNormal 3.4-5.0The [facility] CenterComment on above:Performed By: #### HIV12 #### [facility] [address] [place] [address] Dr. Juan Jose BandaAlbumin/Globulin [Mass ratio]1.5 {ratio}NormalThe [facility] CenterComment on above:Performed By: #### HIV12 #### [facility] [address] [place] [address] Dr. Juan Jose Hugo [Catalytic activity/Vol]97 U/FPlbeno95-079Gvf [facility] CenterComment on above:Performed By: #### HIV12 #### [facility] [address] [place] [address] Dr. Juan Jose Stafford [Catalytic activity/Vol]16 U/TIeowwt40-82Elv [facility] CenterComment on above:Performed By: #### HIV12 #### [facility] [address] [place] [address] Dr. Juan Jose Mcmahon gap [Moles/Vol]15.4 mmol/LNormalThe [facility] Comment on above:Performed By: #### HIV12 #### [facility] [address] [address] [address] Juan Jose BandaAST [Catalytic activity/Vol]19 U/AZivkln31-08Ohw [facility] CenterComment on above:Performed By: #### HIV12 #### [facility] [address] [address] [address] Juan Jose BandaBilirubin [Mass/Vol]0.9 mg/dLNormal0.2-1.0The [facility] Comment on above:Performed By: #### HIV12 #### [facility] [address] [address] [address] Juan Jose BandaCalcium [Mass/Vol]9.2 mg/dLNormal8.5-10.1[facility] Comment on above:Performed By: #### HIV12 #### [facility] [address] [address] [address] Juan Jose BandaChloride [Moles/Vol]107 mmol/DEjoitl84-226Dbo [facility] Comment on above:Performed By: #### HIV12 #### [facility] [address] [address] [address] Juan Jose BandaCO2 [Moles/Vol]22.2 mmol/IUxzyjx54.0-32.0[facility] Comment on above:Performed By: #### HIV12 #### [facility] [address] [address] [address] Juan Jose BandaCreatinine [Mass/Vol]0.94 mg/dLNormal0.55-1.02The [facility] CenterComment on above:Performed By: #### HIV12 #### [facility] [address] [address] [address] Juan Jose FaustGFR-AF EAST TIMORESE>60Normal>=60The [facility] CenterComment on above:Performed By: #### HIV12 #### [facility] [address] [address] [address] Juan Jose FaustGFR-NON AF EAST TIMORESE>60Normal>=60The Toño HospitalComment on above:Performed By: #### HIV12 #### [facility] [address] [address] [address] Juan Jose BandaGlobulin (S) [Mass/Vol]2.9 g/dLNormSelect Medical OhioHealth Rehabilitation HospitalComment on above:Performed By: #### HIV12 #### [facility] [address] [address] [address] Juan Jose BandaGlucose [Mass/Vol]93 mg/sAOccduh83-563TctC[facility] Clinic [facility] Comment on above:Performed By: #### HIV12 #### [facility] [address] [address] [address] Juan Jose BandaPotassium [Moles/Vol]3.6 mmol/LNormal3.5-5.1[facility] Comment on above:Performed By: #### HIV12 #### [facility] [address] [address] [address] Juan Jose BandaProtein [Mass/Vol]7.3 g/dLNormal6.4-8.2[facility] Comment on above:Performed By: #### HIV12 #### [facility] [address] [address] [address] Juan Jose BandaSodium [Moles/Vol]141 mmol/PQeznmc681-336JuoCleveland Clinic [facility] Comment on above:Performed By: #### HIV12 #### [facility] [address] [address] [address] Juan Jose BandaUrea nitrogen [Mass/Vol]14.0 mg/dLNormal6.4-19.3TBluffton HospitalComment on above:Performed By: #### HIV12 #### [facility] [address] [address] [address] Juan Jose BandaUrea nitrogen/Creatinine [Mass ratio]14.9 mg/mgNoSheltering Arms HospitalComment on above:Performed By: #### HIV12 #### [facility] [address] [address] [address] Juan Jose BandaHCG-BETA SUBUNIT QUANTon 52-52-4872uHR,Beta Subunit,Qnt,Serum<1 NormalThe [facility] CenterComment on above:Result Comment: Female (Non- ) 0 - 5 (Postmenopausal) 0 - 8 . Female () Weeks of Gestation 3 6 - 71 4 10 - 750 5 798 - 7960 6 186 - 65683 7 6272 -480902 8 51731 -820245 9 40338 -819400 10 46556 -722269 12 51129 -588879 14 32700 - 40813 15 38695 - 91730 16 5198 - 82618 17 2343 - 47864 18 2401 - 75043 Serena ECLIA methodologyPerformed By: #### RPRQ #### [facility] [address] [place] [address] Dr. Juan Jose Banda Vital Signs Date TimeVital SignValuePerforming DgczkbbqkTexqikfz77-16-9242 16:15-0400Body mass index (BMI) [Ratio]25.89 kg/k9Avegf Padloc DO Work Phone: [phone]-[facility] HospitalCrossroads Regional Medical CenterBycjydndce63-14-8017 16:15-0400Body kyiaqj85.76 kgCorey Yasmin DO Work Phone: [phone] [place], [place] [address]Oukaevatmd24-78-6035 16:15-0400Diastolic blood mm[Hg]Wolfgang Yasmin DO Work Phone: [phone] Medical CenterUzxrtbdren43-51-2369 16:15-0400Systolic blood wkipburz791 mm[Hg]Wolfgang Yasmin DO Work Phone: [phone]-[facility] CenterFrpjsxwhlp80-42-6665 15:50-0400Body mass index (BMI) [Ratio]24.99 kg/e0IldxtmxrElvia Calvillo RACKING MACHINE OPERATOR Work Phone: [facility] CenterNrxlmomwag02-93-5271 15:50-0400Body epawgz10.22 kgElvia Calvillo RACKING MACHINE OPERATOR Work Phone: [phone] CenterCiixdulgia51-77-8463 15:50-0400Diastolic blood korxnlur91 mm[Hg]Elvia Calvillo RACKING MACHINE OPERATOR Work Phone: [phone]-[facility]ly [facility] HospitalCrossroads Regional Medical CenterDqyjosaqbv18-46-4315 15:50-0400Systolic blood ajhsvaes182 mm[Hg]Elvia Calvillo RACKING MACHINE OPERATOR Work Phone: [phone] [place], [place] [address]Mngjzplykk72-78-9577 15:42-0400Body mass index (BMI) [Ratio]24.37 kg/i5Lxphp Yasmin DO Work Phone: [phone] [place], [place] [address]Uihbhovixa76-08-2934 15:42-0400Body .49 kgCorey Yasmin DO Work Phone: [phone] [place], [place] [address]Wrpnrbwqef65-41-8415 15:42-0400Diastolic blood felswzpf90 mm[Hg]Wolfgang Yasmin DO Work Phone: [phone] [place], [place] [address]Hjgxuyupcq34-89-0615 15:42-0400Systolic blood uuurlmtw248 mm[Hg]Wolfgang Yasmin DO Work Phone: [phone] [place] [address]-10-2025 15:25-0400Body mass index (BMI) [Ratio]24.45 kg/b0WbpehhxcElvia Calvillo RACKING MACHINE OPERATOR Work Phone: [phone] [place], [place] [address]Zvpotiuhdn88-44-3757 15:25-0400Body totjlk71.72 kgCarleyairam Rajinder RACKING MACHINE OPERATOR Work Phone: [phone] [place], [place] [address]Zlwjxlafjv88-14-4727 15:25-0400Diastolic blood ncejsird81 mm[Hg]Elvia Rajinder RACKING MACHINE OPERATOR Work Phone: [phone] [place], [place] [address]Zfiqbcdemy81-47-0661 15:25-0400Systolic blood wrwmplvi925 mm[Hg]Elvia Calvillo RACKING MACHINE OPERATOR Work Phone: [phone] [place], [place] [address]2308-27-2025 15:58-0400Body mass index (BMI) [Ratio]23.53 kg/f7Hylcf Yasmin DO Work Phone: [phone])[facility] [place] [address]-27-2025 15:58-0400Body ejmgxi88.13 kgCorey Yasmin DO Work Phone: [phone])[facility] [place] [address]-27-2025 15:58-0400Diastolic blood eqwrjxtc11 mm[Hg]Wolfgang Yasmin DO Work Phone: [phone])[facility] [place] [address]-27-2025 15:58-0400Systolic blood ttzwpjao040 mm[Hg]Wolfgang Yasmin DO Work Phone: [phone] [place], [place] [address]Wbdlofaiwd58-50-4685 15:21-0400Body mass index (BMI) [Ratio]23.69 kg/r0Phkeq Yasmin DO Work Phone: [phone] [place], [place] [address]Ynuqxbaygm39-59-4304 15:21-0400Body .59 kgCorey Yasmin DO Work Phone: [phone] [place], [place] [address]Catxwmzxhx27-89-6983 15:21-0400Diastolic blood mm[Hg]Wolfgang Yasmin DO Work Phone: [phone] [place], [place] [address]Phshlxnenl68-08-8099 15:21-0400Systolic blood nqpqodgt060 mm[Hg]Wolfgang Yasmin DO Work Phone: [phone] [place], [place] 5762305-27-2025 13:43-0400Body mass index (BMI) [Ratio]21.95 kg/v7Edlpy Yasmin DO Work Phone: [phone])[address] [place], [place] [address]5-27-2025 13:43-0400Body vsokkv89.69 kgCorey Yasmin DO Work Phone: [phone] [place], [place] [address]Hrrfujpdyr27-44-4272 13:43-0400Diastolic blood hinycqzt91 mm[Hg]Wolfgang Yasmin DO Work Phone: [phone] [place], [place] [address]Umodgarsao68-36-0226 13:43-0400Systolic blood seouvpuj664 mm[Hg]Wolfgang Yasmin DO Work Phone: [phone] [place], [place] [address]5-01-2025 13:24-0400Body mass index (BMI) [Ratio]22.11 kg/m2[facility]05-01[facility]20[facility] 13:24-0400Body elvrek19.14 kgCenterPointe Hospital05-01-2025 13:24-0400Diastolic blood mm[Hg][facility]05-01-2025 13:24-0400Systolic blood byxepkhm089 mm[Hg][facility]04-03-2025 11:15-0400Body mass index (BMI) [Ratio]21.69 kg/c0Esjyh Yasmin DO Work Phone: [facility] CenterPgkkokikzb16-40-3894 11:15-0400Body byggxn53.96 kgCorey Yasmin DO Work Phone: [facility] CenterSuztyvanwl63-26-8678 11:15-0400Diastolic blood nltzwmyx00 mm[Hg]Wolfgang Yasmin DO Work Phone: [facility] CenterQunehmuawf45-50-2113 11:15-0400Systolic blood tavvvfkp871 mm[Hg]Wolfgang Yasmin DO Work Phone: [facility] CenterXblojqwckz05-01-7405 10:03-0400Body abezjv523.3 cmViki Patel RECREATIONAL SPORTS DIRECTOR-TECHNICAL SYSTEM ANALYST Work Phone: [facility]03-12-2024 10:03-0400Body mass index (BMI) [Ratio]19.73 kg/n9OqdshahViki Patel RECREATIONAL SPORTS DIRECTOR-TECHNICAL SYSTEM ANALYST Work Phone: [facility]03-12-2024 10:03-0400Body .6 kgViki Patel RECREATIONAL SPORTS DIRECTOR-TECHNICAL SYSTEM ANALYST Work Phone: [facility]03-12-2024 10:03-0400Diastolic blood klyccpej31 mm[Hg]Viki Patel RECREATIONAL SPORTS DIRECTOR-TECHNICAL SYSTEM ANALYST Work Phone: [facility]03-12-2024 10:03-0400Heart rate 74 /minViki Patel RECREATIONAL SPORTS DIRECTOR-TECHNICAL SYSTEM ANALYST Work Phone: [facility]03-12-2024 10:03-0400Systolic blood asxervla183 mm[Hg]Viki Patel RECREATIONAL SPORTS DIRECTOR-TECHNICAL SYSTEM ANALYST Work Phone: [facility]02-21-2024 09:20-0500Body mmbacm835.[address]02-21-2024 09:20-0500Body mass index (BMI) [Ratio]19.64 kg/m[address]02-21-2024 09:20-0500Body .33 kgPmh 2PTr[facility]ull [facility] Encounters Encounter DateEncounter TypeCare ProviderFacilityStart: 05-27-2025 End: 70-47-1312Ydlvmz outpatient visit 15 minutesCorey Yasmin DO Work Phone: [facility] Toño OBGYNComment on above: size inconsistent with dates ([facility]) (Primary Dx); 33 weeks gestation of ([facility]); Third trimester ([facility]); Psychogenic nonepileptic seizureStart: 05-27-2025 End: 04-08-6223uinmdzevlpXOMRP FAZIONot AvailableStart: 05-27-2025 End: 24-48-2726Wxxifq flowsheetCorey Yasmin DO Work Phone: NOW[facility] OBGYNStart: 05-27-2025 End: 15-47-3119Broosx flowsheetCorey Yasmin DO Work Phone: NO[facility] Toño OBGYNStart: 05-13-2025 End: 28-95-0346Hjqzfi outpatient visit 15 minutesEvlia Calvillo RACKING MACHINE OPERATOR Work Phone: NOIE [facility] OBGYNComment on above:31 weeks gestation of ([facility]); Third trimester ([facility])Start: 05-13-2025 End: 28-41-1733jrxvgcpipuTAQETPIS EBERLYNot AvailableStart: 04-30-2025 End: 01-78-9321Aaxdvmmzo Result EncounterCorey Yasmin DO Work Phone: [facility] External Department UnsolicitedStart: 04-30-2025 End: 78-29-9144Kbglunufw Result EncounterCorey Yasmin DO Work Phone: noms External Department UnsolicitedStart: 04-29-2025 End: 97-52-0669Jqdlwz outpatient visit 15 minutesCorey Yasmin DO Work Phone: NOMS Toño OBGYNComment on above:Third trimester ([facility]); 29 weeks gestation of ([facility]); Psychogenic nonepileptic seizure ; Diabetes mellitus screeningStart: 04-29-2025 End: 61-79-9598kzxjwvoxqlGNMCS FAZIONot AvailableStart: 04-29-2025 End: 13-49-9582Xxvljg flowsheetCorey Yasmin DO Work Phone: NOMS Toño OBGYNStart: 04-29-2025 End: 51-57-4229Ueihjk flowsheetCorey Yasmin DO Work Phone: NOMS Ursa OBGYNStart: 04-17-2025 End: 64-26-2726jomawhuccjTYUUHNAJ EBERLYNot AvailableStart: 04-17-2025 End: 13-05-7372Fjscqa outpatient visit 15 minutesElvia Calvillo RACKING MACHINE OPERATOR Work Phone: NOMS Toño OBGYNComment on above:Third trimester ([facility]); 28 weeks gestation of ([facility])Start: 04-17-2025 End: 73-89-6917Mhszbo flowsCarolina Calvillo RACKING MACHINE OPERATOR Work Phone: NOMS Toño OBGYNStart: 04-17-2025 End: 28-96-2261Wywmrz flowsCarolina Calvillo RACKING MACHINE OPERATOR Work Phone: NOMS Toño OBGYNStart: 04-03-2025 End: 09-33-8133mtnlkbjfblYMHWA FAZIONot AvailableStart: 04-03-2025 End: 26-10-4922Xufikg outpatient visit 15 minutesCorey Yasmin DO Work Phone: NOMS Toño OBGYNComment on above:Anxiety, generalized (Primary Dx); Second trimester ([facility]); 26 weeks gestation of ([facility]); History of psychogenic nonepileptic seizureStart: 04-03-2025 End: 86-36-9676Ezyqsx flowsheetCorey Yasmin DO Work Phone: NOMS Ursa OBGYNStart: 04-03-2025 End: 23-33-1226Ovkzdk flowsheetCorey Yasmin DO Work Phone: NO Toño OBGYNStart: 03-20-2025 End: 98-92-0235Ljswms outpatient visit 15 minutesGogo MARTINEZ Work Phone: NOMS Toño OBGYNComment on above:Second trimester ([facility]); 24 weeks gestation of ([facility]); Diabetes mellitus screening; Yeast infection; BV (bacterial vaginosis); Urinary tract infection without hematuria, site unspecifiedStart: 03-20-2025 End: 46-73-4697urriyoamimWNA RAMEYNot AvailableStart: 03-20-2025 End: 85-82-7322Nifler Miguel MARTINEZ Work Phone: NOMS Ursa OBGYNStart: 03-20-2025 End: 52-93-3561Gqqmcl Miguel MARTINEZ Work Phone: NOMS Toño OBGYNStart: 02-25-2025 End: 23-84-8010Wbkdph outpatient visit 15 minutesCorey Yasmin DO Work Phone: NOMS BCP OBComment on above:Second trimester ([facility]); 20 weeks gestation of ([facility])Start: 02-25-2025 End: 51-23-4588honvvsijmvNGHYT FAZIONot AvailableStart: 01-29-2025 End: 95-78-1960Nwbhbr Miguel MARTINEZ Work Phone: NOMS BCP OBStart: 01-29-2025 End: 03-60-1521Aundtd Miguel MARTINEZ Work Phone: NOMS BCP OBStart: 01-29-2025 End: 26-94-3360Pobahfftq Result EncounterGogo MARTINEZ Work Phone: NOMS External Department UnsolicitedStart: 01-29-2025 End: 56-87-0619Cdgpdwxs Result EncounterGogo MARTINEZ Work Phone: NOMS External Department UnsolicitedStart: 01-29-2025 End: 93-52-1434Hesfab outpatient visit 15 minutesGogo MARTINEZ Work Phone: noms BCP OBComment on above:Well woman exam with routine gynecological exam; Second trimester ([facility]); 16 weeks gestation of ([facility]); Vaginal discharge; STD exposure; Screening, , for anatomic survey ([facility])Start: 01-29-2025 End: 76-83-8481Uwevmlm encounter procedureAmy Poly MARTINEZ Work Phone: [facility] Work Phone: Start: 01-29-2025 End: 75-09-5558qutaozyyahYGJ RAMEYNot AvailableStart: 01-01-2025 End: 37-62-8789Nmtiyd flowsheetCorey Yasmin DO Work Phone: noms BCP OBStart: 01-01-2025 End: 83-21-2153Yjucwr flowsheetCorey Yasmin DO Work Phone: NOMS BCP OBStart: 01-01-2025 End: 94-95-7319Mcgsrc outpatient visit 15 minutesCorey Yasmin DO Work Phone: noMS BCP OBComment on above:First trimester ; 12 weeks gestation of ; History of psychogenic nonepileptic seizureStart: 01-01-2025 End: 53-07-1010dqxljiokqwZRRHM FAZIONot AvailableStart: 25-81-5058lluqvduscs Shivam Luecrocility:[facility] Hospitaltart: 12-07-2024 End: 11-54-9478Xqfnfnncz Result EncounterCorey Yasmin DO Work Phone: noms External Department UnsolicitedStart: 12-07-2024 End: 73-58-5450Kjbbgeirb Result EncounterCorey Yasmin DO Work Phone: noMS External Department UnsolicitedStart: 12-06-2024 End: 45-09-1685Kashtd outpatient visit 5 minutesNoms Bcp Ob Yasmin NurseNOMS BCP OBComment on above:GA: 5t7nYtchh: 12-06-2024 End: 31-82-4360sjkufmztwfDPVMR FAZIONot AvailableStart: 11-08-2024 End: 70-72-3163Bpesnf flowsheetCorey Yasmin DO Work Phone: NOMS BCP OBStart: 11-08-2024 End: 13-29-6373Pvqkcw flowsheetCorey Yasmin DO Work Phone: NOMS BCP OBStart: 11-08-2024 End: 76-29-1810Ayrwpm outpatient visit 15 minutesCorey Yasmin DO Work Phone: NOMS BCP OBComment on above:PCOS (polycystic ovarian syndrome) (Primary Dx)Start: 11-08-2024 End: 21-64-1121msynfosxddGEGHW FAZIONot AvailableStart: 11-02-2024 End: 53-69-2596Hqazygwcs Result EncounterCorey Yasmin DO Work Phone: NOMS External Department UnsolicitedStart: 11-02-2024 End: 31-58-8640Pwbrjippl Result EncounterCorey Yasmin DO Work Phone: noms External Department UnsolicitedStart: 10-01-2024 End: 49-53-7316Nlzjvuvru Result EncounterCorey Yasmin DO Work Phone: NOOU External Department UnsolicitedStart: 10-01-2024 End: 12-03-5198Ddytjqcei Result EncounterCorey Yasmin DO Work Phone: NOLS External Department UnsolicitedStart: 09-25-2024 End: 92-62-1052Usdumb outpatient visit 15 minutesCorey Yasmin DO Work Phone: NOMS BCP OBComment on above:PCOS (polycystic ovarian syndrome) (Primary Dx)Start: 09-25-2024 End: 98-27-1655qavewuedpyLIDNL FAZIONot AvailableStart: 09-25-2024 End: 92-33-1051Vltsqm flowsheetCorey Yasmin DO Work Phone: [phone] [facility] OBStart: 09-25-2024 End: 08-59-5063Tshspa flowsheetCorey Yasmin DO Work Phone: noms [facility] OBStart: 09-39-8060Uizgavupc encounterTessa Roberts CMAACMC Healthcare System Glenbeighca Physicians General SurgeryStart: 10-18-2023 End: 11-06-8480zlsdablbffIPRFPPQEvergreenHealth [facility] Start: 10-18-2023 End: 47-09-9874Cqaido follow up visit related to original Maria Estheru[facility] Airam Patel RECREATIONAL SPORTS DIRECTOR-TECHNICAL SYSTEM ANALYST Work Phone: [facility] Physicians General SurgeryComment on above: Status post laparoscopic cholecystectomy (Primary Dx)Start: 10-03-2023 End: 02-13-9987Chcmxrbkic and management of inpatientMemorial Health System Marietta Memorial Hospitaltart: 10-03-2023 End: 48-31-2281Wgkmhryiyl and management of inpatientSouthampton Memorial Hospitaltart: 09-28-2023 End: 70-76-1846xgbzylmhcjVVSICSierra Vista Hospitaltart: 85-84-3454Wxkpzgybo for other preprocedural examinationDOUGWooster Community Hospitaltart: 09-28-2023 End: 53-68-2486Udassem encounter procedureKettering Health [facility] Pre-Admission Testing [address] [place] [address] - Pre AdmitComment on above:Preop examination (Primary Dx); Asthma, unspecified asthma severity, unspecified whether complicated, unspecified whether persistentStart: 09-28-2023 End: 60-72-2654Aqtubolahstji examination donePm[address] SystemStart: 09-27-2023 End: 50-99-9247smvqxiobmkQLNPHZOIGHQNew [facility] Start: 09-27-2023 End: 73-88-0625Zivasm outpatient new 30 minutesAlo Morgan MD Work Phone: [facility] Physicians General SurgeryComment on above: Biliary colic (Primary Dx)Start: 98-79-8036Rovequrvx encounterAlo Morgan MD Work Phone: [facility] General SurgeryStart: 08-30-2023 End: 69-92-9198Nxpjfmvqxc and management of inpatientJAMAL CHIRRIMercy [place] campustart: 89-67-0320ztglyuiwncJHLSWHK M HOYProMedica Hospital Ambulatory PPGStart: 64-58-9797Qpjnacsdy encounterPaola Temple CMAUniversity Hospitals E[facility] Physicians General SurgeryStart: 11-20-0752rctydyfvrwPAYNJIYParis [facility] Ambulatory PPGStart: 96-03-3972Zwydcwzbt encounterMichael E Grillis DO Work Phone: [facility] SurgeryStart: 07-29-2023 ambulatoryDouglas HoyFacility:[facility] SystemkStart: 07-26-2023 End: 61-20-2341kiysxbogxrErdclhh HoyFacility:[facility] Centertart: 07-26-2023 End: 55-82-6658Czasdcy encounter procedureMichael R NILL [phone]-NyksxMount Carmel Health System General Surgery [place] Start: 77-06-1491zaljkpogcxWyppdgo HoyFacility:[facility] Centertart: 26-08-4581ycfpxlewtkKhcafai HoyFacility:[facility] CenterevueStart: 50-77-5789Nqxbxqwdmv and management of inpatientDR WOLFGANG YASMIN .Facility:H1 Start: 25-71-2383Ubcbzawhaq and management of inpatientDR WOLFGANG YASMIN . Facility:X8Csgej: 75-46-3379yszfjeogscLA WOLFGANG YASMIN .Facility:L2Ocsqh: 01-01-2023 End: 08-45-6347gcdxiaztdkFR WOLFGANG YASMIN .Facility:L3Rfxdr: 12-31-2022 End: 44-20-2580vllyfmvcoaVG WOLFGANG YASMIN .Facility:F0Zbuzs: 12-28-2022 End: 44-86-9917kwgqdydqhwJB WOLFGANG YASMIN .Facility:T2Fuujq: 12-24-2022 End: 37-01-9887mjitcijepyJQ WOLFGANG YASMIN .Facility:K9Wyujp: 12-22-2022 End: 05-09-5756ggchswbtllRA WOLFGANG YASMIN .Facility:Z5Oyqts: 12-20-2022 End: 24-16-5385eovekbgojxZX WOLFGANG YASMIN .Facility:M3Whibk: 12-17-2022 End: 43-71-3216gyjumzncauZF JAYSON HERNÁNDEZ .Facility:S8Jhyof: 11-04-2022 End: 18-66-5000dhsezxymmxPNNHOG DIAB .Facility:T6Lwnld: 10-01-2022 End: 68-64-7106karatwfdnlEQ WOLFGANG YASMIN .Facility:C0Trvhd: 09-28-2022 End: 29-59-3596tdlovztzylEG LUISA Radha ARCHIABLDFacility:N8Fvlcd: 08-25-2022 End: 56-32-8351dyknefpbroSOO POLY .Facility:N7Fdlmp: 08-24-2022 End: 31-62-6707ttyimhwnrbHO WOLFGANG YASMIN .Facility:N2Xobdy: 06-25-2022 End: 65-78-2183nkwelfthveGW RASHARD MONTEZ .Facility:R3Dnpmk: 06-20-2022 End: 36-92-8988glkolouvakRTZHWH RADHA .Facility:H3Linds: 06-18-2022 End: 37-23-6142xsheuidcwiAV WOLFGANG YASMIN .Facility:B4Cmqvq: 06-02-2022 End: 46-28-6773zqlpyqrykqWA GUSTAVO R SMITHFacility:V4Urjzc: 05-25-2022 End: 30-25-5229whtqkfklgnCEEMP PARKERFacility:V8Inwdm: 04-29-2022 End: 69-56-1252hqmzwnkisyEN GUSTAVO R SMITHFacility:R4Fijst: 04-10-2022 End: 42-21-0880vnnddesnnwKVMBP PARKERFacility:O0Ijjou: 04-07-2022 End: 57-25-5007bxokamovmeMR GUSTAVO R SMITHFacility:R1Myeig: 04-07-2022 End: 12-29-8984jhxpjbfyrwZTJIG PARKERFacility:M5Kgrmp: 02-22-2022 End: 25-91-3730ljukicyyimDU RASHARD MONTEZ .Facility: Procedures DateProcedureProcedure DetailPerforming ClinicianStart: 10-37-5741Ksqtb dip stick/tablet rgnt non-auto w/o micrscpCorey Yasmin DO Work Phone: Start: 79-74-0978Kwklo dip stick/tablet rgnt non-auto w/o micrscpKristina Rajinder RACKING MACHINE OPERATOR Work Phone: Start: 92-97-1001DDO CBC WITH AUTO DIFFCorey Yasmin DO Work Phone: Start: 06-79-2454Ikfeb dip stick/tablet rgnt non-auto w/o micrscpCorey Yasmin DO Work Phone: Start: 20-89-3055Mnfjy dip stick/tablet rgnt non-auto w/o micrscpKristina Rajinder RACKING MACHINE OPERATOR Work Phone: Start: 38-17-2336Rbcil dip stick/tablet rgnt non-auto w/o micrscpKristina Rajinder RACKING MACHINE OPERATOR Work Phone: Start: 64-67-6996Cfewc dip stick/tablet rgnt non-auto w/o micrscpCorey Yasmin DO Work Phone: Start: 53-72-1821QMCTQJQIP VAGINITIS (HTRX)Gogo MARTINEZ Work Phone: Start: 79-27-3377GPF,APTIMA HPV,AGE GDLNAmy Poly MARTINEZ Work Phone: Start: 42-17-7605QTF TESTCorey Yasmin DO Work Phone: Start: 21-71-6666Kquwz dip stick/tablet rgnt non-auto w/o micrscpCorey Yasmin DO Work Phone: Start: 64-35-7485XNR PREG QUANT HCGCorey Yasmin DO Work Phone: Start: 65-84-8474VMZ CBC WITH AUTO DIFFCorey Yasmin DO Work Phone: appendectomyMichael NILL History of cholecystectomyStatus post laparoscopic cholecystectomyViki Patel RECREATIONAL SPORTS DIRECTOR-TECHNICAL SYSTEM ANALYST Work Phone: Plan of Treatment DateCare ActivityDetailAuthorStart: 52-01-6927DPnV,Tdap and Td Vaccines (7 - Td or Tdap)DTaP,Tdap and Td Vaccines (7 - Td or Tdap)[facility] SystemStart: 07-17-2025 End: 72-99-8414lcqvfkwtvy84/10/2025 3:40 PM EST Visit NOMStacey COSTA [address] [place], [phone] Wolfgang Hoffman DO [address] [place] [address] NOMS Toño OBGYNStart: 06-10-2025 End: 40-92-1652Xwecall encounter fqsnafwbs15/03/2025 3:50 PM EST Routine NOMStacey COSTA [address] [place], [id number] Gogo Pang PA [address] [place] [address] NOMS Toño OBGYNStart: 05-27-2025 End: 36-61-4122Kzjvmuq encounter procedureNOMS Toño OBGYNComment on above: ArrivedStart: 05-27-2025 End: 35-02-4568IV for pregnancyUS OB follow up transabdominal approach Imaging Routine size inconsistent with dates ([facility]) Expected: 05/27/2025, Expires: 09/27/2025[facility] Work Phone: comment on above:Expected: 05/27/2025, Expires: 09/27/2025Start: 05-15-2025 End: 78-58-1276Fjqhrsa encounter jourbigmh15/08/2025 3:40 PM EDT Routine [facility] [address] [place], [id number] Elvia Calvillo, RACKING MACHINE OPERATOR [address] [place] [address] NOMS Toño OBGYNStart: 04-29-2025 End: 29-10-4387Nflfdip encounter lwiwgexkm72/22/2025 3:20 PM EDT Routine [facility]BG[facility] [address] [place] [address] [place], [phone] Wolfgang Hoffman, [address] [place] [address] ArrivedNOMS [place] OBGYNComment on above:ArrivedStart: 04-29-2025 End: 28-51-9789TCQ W Auto Differential panel - BloodCBC and differential Lab Routine Diabetes mellitus screening Expected: 04/29/2025 (Approximate), Expires: 04/29/2026[facility] Work Phone: comment on above:Expected: 04/29/2025 (Approximate), Expires: 04/29/2026Start: 04-17-2025 End: 74-43-1187Ssbfijj encounter bciusgvkc71/10/2025 3:40 PM EDT Routine [facility] [address] [place], [id number] Wolfgang Hoffman, DO [address] [place] [address] PIYUSH [place] OBGYNStart: 04-08-2025 Influenza vaccinationInfluenza Vaccine (#1)NOMS HealthcareStart: 04-03-2025 End: 80-82-0043Xedbdfc encounter nufitvfkp99/27/2025 3:40 PM EDT Routine [facility] [address] [place], [id number] Wolfgang Hoffman, DO [address] [place] [address] NOMS Toño OBGYNStart: 03-20-2025 End: 51-47-5506Uylmvfz encounter emaroyzhy87/13/2025 3:40 PM EDT Routine [facility] [address] [place], [id number] Gogo Pang PA [address] [place] [address] ArrivedDIDI Toño OBGYNComment on above:ArrivedStart: 03-20-2025 End: 28-02-5676OCE panel - Blood by Automated countCBC Lab Routine Diabetes mellitus screening Expected: 03/20/2025 (Approximate), Expires: 03/20/2026[facility] Work Phone: comment on above:Expected: 03/20/2025 (Approximate), Expires: 03/20/2026Start: 03-20-2025 End: 76-13-3219Yughsbhwrmi of glucose 1 hour after glucose challenge for glucose tolerance testGlucose tolerance, 1 hour Lab Routine Diabetes mellitus screening Expected: 03/20/2025 (Approximate), Expires: 03/20/2026[facility] HealthcareComment on above:Expected: 03/20/2025 (Approximate), Expires: 03/20/2026Start: 02-25-2025 End: 79-17-8729Xydkdfo encounter slquwdsus64/21/2025 3:40 PM EDT Routine N[facility] BCP OB [address] [place] [address] Wolfgang Hoffman, DO [address] [place] [address] NOMS BCP OBStart: 02-25-2025 End: 94-15-6863Tqkstjesbrux / ancillary services qtbbarbtfc26/21/2025 2:30 PM EDT Ancillary Procedure [facility] [address] [place] [phone] NOMS BCP OBStart: 01-29-2025 End: 15-60-7782Usxwi fetoprotein, maternalAlpha fetoprotein, maternal Lab Routine Second trimester ([facility]) 16 weeks gestation of ([facility]) Expected: 01/29/2025 (Approximate), Expires: 07/31/2025[facility] Comment on above:Expected: 01/29/2025 (Approximate), Expires: 07/31/2025Start: 01-29-2025 End: 35-02-1110AT for pregnancyUS OB 14+ weeks anatomy scan Imaging Routine Second trimester ([facility]) 16 weeks gestation of ([facility]) Screening, , for anatomic survey ([facility]) Expected: 01/29/2025, Expires: 05/01/2025[facility] HealthcareComment on above:Expected: 01/29/2025, Expires: 05/01/2025Start: 01-29-2025 End: 62-56-5425Mnbezjy encounter procedureNOMS [facility] OBComment on above:Arrived Start: 01-08-2025 End: 85-19-5800Zwhmkej encounter /03/2025 2:10 PM EDT Routine N[facility] BCP OB [address] [place] [address] Wolfgang Hoffman, DO [facility] [place] [address] NOMS BCP OBStart: 01-01-2025 End: 84-88-7822Npdrwdf encounter wpptxnbix23/27/2025 1:40 PM EDT Routine [facility] BCP OB [address] [place] [address] Wolfgang Hoffman, DO [address] [place] [address] ArrivedNOMS BCP OBComment on above: ArrivedStart: 12-06-2024 End: 55-62-0917ZRK/RhABO/Rh Lab Routine Missed menses , unspecified gestational age Expected: 12/06/2024 (Approximate), Expires: 12/06/2025[facility] HealthcareComment on above:Expected: 12/06/2024 (Approximate), Expires: 12/06/2025Start: 12-06-2024 End: 46-21-4264Luypl type and Indirect antibody screen panel - BloodType and screen Lab Routine Missed menses , unspecified gestational age Expected: 12/06/2024 (Approximate), Expires: 12/06/2025[facility] HealthcareComment on above:Expected: 12/06/2024 (Approximate), Expires: 12/06/2025Start: 12-06-2024 End: 62-81-6391Fbjiv of abuse panel - Urine by Screen methodRapid drug screen, urine Lab Routine , unspecified gestational age Encounter for supervision of normal first in first trimester Expected: 12/06/2024 (Approximate), Expires: 12/06/2025[facility] HealthcareComment on above:Expected: 12/06/2024 (Approximate), Expires: 12/06/2025Start: 12-06-2024 End: 29-16-8891urlcjeddfk48/01/2025 1:00 PM EDT Initial [facility] BCP OB [address] [place] [address] NOMS BCP OBStart: 12-06-2024 End: 36-96-9096Sehxetvhvaiw / ancillary services rovbtadbiz89/01/2025 12:30 PM EDT Ancillary Procedure [facility] [address] [place] [address] NOMS BCP OBStart: 11-30-2024 End: 98-71-1485DJ Pelvis transvaginalUS OB transvaginal Imaging Routine Missed menses Expected: 11/30/2024, Expires: 03/01/2025[facility] Work Phone: comment on above:Expected: 11/30/2024, Expires: 03/01/2025Start: 11-12-2024 End: 33-37-7017Bhcdyxi encounter gfsgefdqd20/07/2025 2:00 PM EDT Office Visit [facility] [address] [place] [address] Wolfgang Hoffman, [address] [place] [address] NOMS BCP OBStart: 11-08-2024 End: 46-96-1551Xynjqit encounter vlgpihlox71/03/2025 11:30 AM EDT Office Visit [facility] [address] [place] [phone] Wolfgang Hoffman, [address] [place] [address] ArrivedNOMS [facility] OBComment on above:ArrivedStart: 06-03-9146Umgbh BMI ScreeningAdult BMI ScreeningProMedica Health SystemStart: 82-97-9403Jpebbqw ScreeningTobacco ScreeningProMedica Health SystemStart: 18-42-5685Mrgiu BMI ScreeningAdult BMI ScreeningProMedica Health SystemStart: 00-16-6024Melgkfo ScreeningTobacco ScreeningProMedica Health SystemStart: 74-40-7914Esfzm BMI ScreeningAdult BMI ScreeningProMedica Health SystemStart: 60-15-1721Dlpipst ScreeningTobacco ScreeningProMedica Health SystemStart: 27-22-5251Dsigavr ScreeningTobacco ScreeningProMedica Health SystemStart: 09-25-2024 End: 74-48-0972Atdyzye encounter sytxkzcxn33/18/2025 3:00 PM EST Office Visit [facility] OB [address] [place] [address] Wolfgang Hoffman, DO [address] [place], [place] [address] [address] ArrivedNOVA BCP OBComment on above:ArrivedStart: 09-25-2024 End: 93-62-2861EYYREWBM Lab Routine PCOS (polycystic ovarian syndrome) Expected: 09/25/2024 (Approximate), Expires: 09/25/2025[facility] HealthcareComment on above: Expected: 09/25/2024 (Approximate), Expires: 09/25/2025Start: 09-25-2024 End: 72-55-0018AB PelvisUS Pelvis w/ TV Imaging Routine PCOS (polycystic ovarian syndrome) Expected: 09/25/2024, Expires: 09/25/2025[facility] HealthcareComment on above:Expected: 09/25/2024, Expires: 09/25/2025Start: 10-18-2023 End: 77-75-0876Ajmnxdq encounter nzmsdcxka68/12/2024 10:00 AM EDT Office Visit [facility] General Surgery [address] [place] [address] Viki Patel APRN-[facility] [address] [place] [address] [facility] General SurgeryStart: 10-03-2023 End: 90-82-9136Rvmjsixds to same day surgery vqajuw6310/03/2023 11:00 AM EST - 10/03/2023 12:55 PM EST Surgery [facility] - Surgery [address] [place] [address] Alo Morgan MD [address] [place] [address] DAVINCI CHOLECYSTECTOMY [32038 (CPT )][facility] - Surgery Comment on above:DAVINCI CHOLECYSTECTOMY [47823 (CPT )]Start: 10-03-2023 End: 16-34-4582Gqpfauslxal surg cholecystectomyDAVINCI CHOLECYSTECTOMY biliary colic 10/03/2023 11:00 AM ESTFREMONT SURGERYStart: 07-67-9878Xdjfxmzugw hospital visit by /26/2024 11:00 AM EST Hospital Encounter [facility] - Surgery [address] [place] [address] Alo Morgan MD [address] [place] [address] [facility] - SurgeryStart: 09-27-2023 End: 85-00-7676Fanvnjd encounter tezrnxthu56/20/2024 11:00 AM EST Office Visit [facility] [address] [place] [address] Alo Morgan MD [address] [place] [address] [facility] General SurgeryStart: 08-23-2023 End: 76-36-9777Wrmrqqr encounter cmvmgzajm17/16/2024 10:45 AM EST Office Visit [facility] [address] [place] [address] Alo Morgan MD [address] [place] [address] [facility] General SurgeryStart: 91-59-7870Lpnceywnh vaccinationInfluenza VaccineProTwin City Hospital SystemStart: 39-55-7423Ynqrt BMI ScreeningAdult BMI ScreeningSCCI Hospital Lima SystemStart: 35-86-6665Uakymvqhlc ScreeningDepression ScreeningProTwin City Hospital SystemStart: 66-39-4042Fytajsk ScreeningTobacco ScreeningProTwin City Hospital SystemStart: 60-93-0916Vxmlacr CounselingTobacco CounselingProTwin City Hospital SystemBacteria identified in Urine by CultureUrine culture Microbiology Routine Missed menses Ordered: 12/06/2024[facility] HealthcareComment on above:Ordered: 5Bacteria identified in Urine by CultureUrine culture Microbiology Routine Urinary tract infection without hematuria, site unspecified Ordered: 03/20/2025[facility] Healthcare Comment on above:Ordered: 03/20/2025BC W Auto Differential panel - BloodCBC and differential Lab Routine PCOS (polycystic ovarian syndrome) Ordered: 09/25/2024 [facility] HealthcareComment on above:Ordered: 09/25/2024BC W Auto Differential panel - BloodCBC and differential Lab Routine Missed menses , unspecified gestational age Ordered: 12/06/2024[facility] HealthcareComment on above:Ordered: 12/06/2024HLAMYDIA TRACHOMATIS (GENITO/STI)CHLAMYDIA TRACHOMATIS (GENITO/STI) Lab Routine STD exposure Ordered: 01/29/2025[facility] HealthcareComment on above: Ordered: 01/29/2025HLAMYDIA TRACHOMATIS (GENITO/STI)CHLAMYDIA TRACHOMATIS (GENITO/STI) Lab Routine Yeast infection BV (bacterial vaginosis) Ordered: [facility] HealthcareComment on above:Ordered: 03/20/2025ytology Cervical or vaginal smear or scraping studyPap Smear Pathology and Cytology Routine Well woman exam with routine gynecological exam Ordered: 01/29/2025[facility] Healthcare Work Phone: comment on above:Ordered: 01/29/2025DHEA-sulfateDHEA- sulfate Lab Routine PCOS (polycystic ovarian syndrome) Ordered: 09/25/2024[facility] HealthcareComment on above:Ordered: 09/25/2024[facility] stimulating hormone Follicle stimulating hormone Lab Routine PCOS (polycystic ovarian syndrome) Ordered: 09/25/2024[facility] HealthcareComment on above:Ordered: 09/25/2024hCG, quantitative, pregnancyhCG, quantitative, Lab Routine PCOS (polycystic ovarian syndrome) Ordered: 09/25/2024[facility] Work Phone: comment on above:Ordered: 09/25/2024Hemoglobin A1c/Hemoglobin.total in BloodHemoglobin A1c Lab Routine PCOS (polycystic ovarian syndrome) Ordered: 09/25/2024[facility] HealthcareComment on above:Ordered: 09/25/2024 Hemoglobin A1c/Hemoglobin.total in BloodHemoglobin A1c Lab Routine Missed menses , unspecified gestational age Ordered: 12/06/2024[facility] HealthcareComment on above:Ordered: 12/06/2024Hemoglobin A1c/Hemoglobin.total in BloodHemoglobin A1c Lab Routine Third trimester ([facility]) 28 weeks gestation of ([facility]) Ordered: 04/17/2025[facility] Healthcare Work Phone: comment on above:Ordered: 04/17/2025Hepatitis B virus surface Ag [Presence] in Serum or Plasma by ImmunoassayHepatitis B surface antigen Lab Routine Missed menses , unspecified gestational age Ordered : 12/06/2024[facility] HealthcareComment on above:Ordered: 12/06/2024Hepatitis C virus Ab [Presence] in Serum or Plasma by ImmunoassayHepatitis C antibody Lab Routine Missed menses , unspecified gestational age Ordered: 12/06/2024[facility] HealthcareComment on above:Ordered: 12/06/2024HIV-1/HIV-2 antigen/antibody combination immunoassayHIV-1 and HIV-2 antibodies Lab Routine Missed menses , unspecified gestational age Ordered: 12/06/2024[facility] HealthcareComment on above:Ordered: 12/06/2024Luteinizing hormoneLuteinizing hormone Lab Routine PCOS (polycystic ovarian syndrome) Ordered: 09/25/2024[facility] HealthcareComment on above:Ordered: 09/25/2024Neisseria gonorrhoeae DNA [Presence] in Unspecified specimen by ISAAC with probe detectionNeisseria gonorrhea DNA probe, direct Lab Routine STD exposure Ordered: 01/29/2025[facility] HealthcareComment on above:Ordered: 01/29/2025Neisseria gonorrhoeae DNA [Presence] in Unspecified specimen by ISAAC with probe detectionNeisseria gonorrhea DNA probe, direct Lab Routine Yeast infection BV (bacterial vaginosis) Ordered:03/20/2025[facility] HealthcareComment on above:Ordered: 03/20/2025Reagin Ab [Presence] in Serum by RPRRPR Lab Routine Missed menses , unspecified gestational age Ordered: 12/06/2024[facility] HealthcareComment on above:Ordered: 12/06/2024Rubella antibody, IgGRubella antibody, IgG Lab Routine Missed menses , unspecified gestational age Ordered: 12/06/2024[facility] HealthcareComment on above:Ordered: 12/06/2024 SURESWAB(R) ADVANCED VAGINITIS PLUS, TMASURESWAB(R) ADVANCED VAGINITIS PLUS, TMA Pathology and Cytology Routine Vaginal discharge Ordered: 01/29/2025[facility] HealthcareComment on above:Ordered: 01/29/2025SURESWAB(R) ADVANCED VAGINITIS PLUS, TMASURESWAB(R) ADVANCED VAGINITIS PLUS, TMA Pathology and Cytology Routine Yeast infection BV (bacterial vaginosis) Ordered: 03/20/2025[facility] Comment on above:Ordered: 03/20/2025Thyrotropin [Units/volume] in Serum or PlasmaTSH Lab Routine PCOS (polycystic ovarian syndrome) Ordered: 09/25/2024[facility] Work Phone: comment on above:Ordered: 09/25/2024Thyroxine (T4) free [Mass/volume] in Serum or PlasmaT4, free Lab Routine PCOS (polycystic ovarian syndrome) Ordered: 09/25/2024[facility] HealthcareComment on above:Ordered: 09/25/2024 End: 18-11-4283Yjotmufa Procedure / SurgeryUnlisted Procedure / Surgery Procedures Routine Biliary colic 1 Occurrences starting 09/27/2023 until 09/26/2024[facility] Work Phone: Comment on above:1 Occurrences starting 09/27/2023 until 09/26/2024US Pelvis transvaginalUS OB transvaginal Imaging Routine Missed menses 12/06/2024 12:56 PM [facility] Immunizations Immunization DateImmunizationNotesCare AtooxifnWoyouvmx70-13-2255zjqfpmuef virus vaccine, unspecified formulationLauren Venia [facility] 75-22-7389onjrisfut virus vaccine, unspecified formulationMichael Grillis DO Work Phone: [facility] Payers DatePayer CategoryPayerPolicy [id number] Health InsuranceAMBETTER JODI Member Subscriber Plan / Payer (Effective 2024- Present) Name: Alfredo Piper Relation to Subscriber: Self Name: Kemi Piper Payer ID: Not on file Group ID: Not on file Type: Not on file Address: [address] [id number] [id number] 2023Medicaid (Managed Care)[employer] [id number] 2019[place]icaid[place] [employer] [id number] 2018-Present [phone] [address] [place] [id number] [id number] 2.1.074121.3.57[id number] 2..1.067764.3.57[id number] 2..1.232133.3.579.2.42561-51-1262Nfxxyia9083233 2..1.836038.3.579.[id number] 2.1.878892.3.579.2.79291-36-3819Bmactnd5424515 2.16.840.1.980066.3.579.2.76664-91-2715Wwsxbqm8131853 2.16.840.1.385420.3.579.2.43669-92-7915Ncjviec1975557 2.16.840.1.485189.3.579.2.00920-21-7906Ucegskf6166124 2.16.840.1.145652.3.579.2.23596-18-0266Xycqdzy5600583 2.16.840.1.938777.3.579.2.12385-59-0565Ovmvrvf2042214 2.16.840.1.774088.3.579.2.58315-83-5604Zajgksn4805324 2.16.840.1.755679.3.579.2.69439-37-0365Evnoyrq9359209 2.16840.1.563183.3.579.2.11830-66-1226Cbqjdcc3950791 2.16.840.1.989603.3.579.2.56274-34-0917Ukaidrn1941067 2.16.840.1.953611.3.579.2.27931-49-4768Pwqtqml5984329 2.16840.1.087888.3.579.2.87091-44-7231Svlgqep3834805 2.16.840.1.811261.3.579.2.18495-06-8798Ueqrwbp1004530 2.16.840.1.368077.3.579.2.90079-23-0766Eesxkux4706613 2.16.840.1.570335.3.579.2.41995-54-4193Sjhmljl8645200 2.16.840.1.124591.3.579.2.47626-56-0465Kdfcauz8807661 2.16.840.1.185415.3.579.2.36395-89-4050Glpqukn4366419 2.16.840.1.636628.3.579.2.23156-15-8102Xvdbmlb4518761 2.16.840.1.608545.3.579.2.09006-03-7100Tvctrma1527412 2.16.840.1.428481.3.579.2.11942-49-7096Rgaulxq2535362 2.16.840.1.123556.3.579.2.78993-34-4605Wqfwrnu3304744 2.16.840.1.294478.3.579.2.31823-84-3696Vptotzs8042394 2.840.1.508221.3.579.2.61918-44-2162Itzpebg42508883 2.16.840.1.378228.3.579.2.99000-86-3024Axhrrfw26601417 2..840.1.556559.3.579.2.99146-78-4629Ddkhhzn71639920 2.16.840.1.645858.3.579.2.508627-39-5662Yyyszfq36113600 2.840.1.282649.3.579.2.716274-04-0177Kdpigwd77621959 2.16.840.1.665606.3.579.2.273377-31-6729Jkpsrlp44052625 2.16.840.1.957655.3.579.2.540952-44-4049Rwcthlp88224843 2.16.840.1.615239.3.579.2.079891-97-2884Qzhnovv50372739 2.16840.1.262431.3.579.2.098249-28-6670Khzdsmh01942544 2.840.1.906206.3.579.2.189019-35-9892Bowqmlr89346641 2..840.1.514662.3.579.2.579799-60-9382Zjzpzjs84176526 2.840.1.791451.3.579.2.603143-32-5812Exzdmhk8145868 2.840.1.740923.3.579.2.523845-41-9303Lcfnnhf0179575 2.0.1.538921.3.579.2.005988-91-4840Ygkbrbp4086815 2.840.1.992223.3.579.2.338814-65-6858Khqvspm1290648 2..1.802843.3.579.2.271999-21-6732Ellkpyd04925379 2.0.1.452519.3.579.2.128262-15-3641Kvavzmw71561590 2.840.1.355358.3.579.2.155294-77-8412Kwumpzq35704827 2.0.1.904931.3.579.2.666050-78-9221Whutsee76785303 2.840.1.558260.3.579.2.838345-23-0420Imdzysz67097119 2.840.1.220192.3.579.2.095222-83-4373Milynlg19976556 2.840.1.982975.3.579.2.870239-05-4934Vcrcbgv65500719 2.840.1.042617.3.579.2.687937-90-0213Mqaclps56872867 2.16.840.1.876358.3.579.2.080108-52-5155Mnlebol06936181 2.16.840.1.698226.3.579.2.197808-67-4665Jiqmckp8046034 2.16.840.1.724347.3.579.2.783763-64-2598Awzvvvw5283707 2.16.840.1.881302.3.579.2.927518-60-2681Gjoddfz3851014 2..840.1.396050.3.579.2.079932-77-8743Qsssyam1600303 2.16.840.1.729141.3.579.2.295416-59-7199Wdtucpz0178597 2..840.1.190372.3.579.2.911776-50-8934Weqckof19423509 2.16.840.1.991179.3.579.2.44945-29-1433Clrggbl81568342976563-01-0205Tnfzpto 776646059 2.16.840.1.356962.3.579.2.381Uamycwn27091969 2.16840.1.361107.3.579.2.531 Social History DateTypeDetailFacilityTobacco smoking statusMount Carmel Health System [facility] [place] Start: 04-03-2021 End: 04-51-0249Ymv Assigned At BirthFemalAvita Health System Galion Hospitaltart: 04-03-2021 End: 68-45-3438Sdgtdhy smoking status NHISOccasional tobacco smokerSCCI Hospital [facility] SystemStart: 04-03-2021 End: 56-75-5242Scdekni use and exposureSmokeless tobacco non-userSCCI Hospital L[facility] SystemStart: 04-03-2021 End: 13-11-1346Xuclpul intakeLifetime non-drinker (finding)[facility] SystemStart: 04-03-2021 End: 65-23-6883Vnkgela of Social functionSCCI Hospital L[facility] SystemStart: 89-09-6318Blicpsv InstabilityUnknowPage Memorial Hospitaltart: 31-98-8046Rud Assigned At BirthNot on fileSCCI Hospital L[facility] SystemStart: 29-15-8452Nmujiym CommentWill smoke a cigarette if does not have a vapCorey Hospital History of tobacco useCigarette SmokerAvita Health System Bucyrus HospitalTobacco smoking status NHISTobacco smoking consumption unknownNOBarnes-Jewish HospitalStart: 10-17-2024 PregnancyCrossroads [facility] Medical Center Clinical Notes 11-28-2020 to 05-27-2025 Note Date & RjvtElvpBidpzbap43-23-0571 History of Present illness Narrative* Elvia Calvillo, RACKING MACHINE OPERATOR - 05/27/2025 3:50 PM EDT Reason for [...] Ambulatory Problems Diagnosis Date Noted Third trimester ([facility]) 12/27/2022 ADHD (attention deficit hyperactivity [...] nursing note reviewed. Exam conducted with a material worker present. Vitals: Estimated body mass index is 25.89 kg/m as calculated from the following: Height as of 12/21/22: 5' 6 . Weight as of this encounter: 160 lb 6.4 oz. BP: 130/80 No LMP recorded. Patient is . Assessment/Plan ICD-10-CM 1. 33 weeks gestation of ([facility]) Z3A.33 POCT urinalysis dipstick manually resulted 2. Third trimester ([facility]) Z34.93 POCT urinalysis dipstick manually resulted 3. [...] Elvia Calvillo NP on behalf of: Wolfgang Yasmin, DO [1] No Known Allergies [2] History reviewed. No pertinent past medical history. [3] No family history on file. [4] Past Surgical History: Procedure Laterality Date APPENDECTOMY GALLBLADDER documented in this encounterCrossroads Regional Medical CenterMnkyvdxihf47-78-0693 History of Present illness Narrative* Elvia Calvillo NP - 05/13/2025 3:50 PM EDT Reason for Appointment: Patient ID: Kemi Piper is a 19 y.o. female who presents for Routine Visit (31 weeks 5 days) Patient presents today for Return OB appointment. MEDICATIONS Current Outpatient Medications Medication Instructions citalopram (CELEXA) 20 mg, Oral, Daily metroNIDAZOLE (Metrogel) 0.75 % vaginal gel Patient to use vaginally nightly for 5 nights, then twice weekly thereafter for 4 months. 28-0.8 MG tablet 1 tablet, Daily ALLERGIES No Known Allergies PROBLEMS Active Ambulatory Problems Diagnosis Date Noted Third trimester ([facility]) 12/27/2022 ADHD (attention deficit hyperactivity disorder) 01/11/2012 [...] nursing note reviewed. Exam conducted with a material worker present. Vitals: Estimated body mass index is 24.99 kg/m as calculated from the following: Height as of 12/21/22: 5' 6 . Weight as of this encounter: 154 lb 12.8 oz. BP: 110/80 No LMP recorded. Patient is . ASSESSMENT & PLAN ICD-10-CM 1. 31 weeks gestation of ([facility]) Z3A.31 POCT urinalysis dipstick manually resulted 2. Third trimester ([facility]) Z34.93 Return OB: Patient presents today for a routine obstetrics appointment. Patient is currently 31w5d . Patient states she is doing well [...] of: Elvia Calvillo NP documented in this encounterCrossroads Regional Medical CenterRbqizorsps93-33-3627 History of Present illness Narrative* Elvia Calvillo NP - 04/29/2025 3:20 PM EDT [...] Ambulatory Problems Diagnosis Date Noted Third trimester ([facility]) 12/27/2022 ADHD (attention deficit hyperactivity [...] nursing note reviewed. Exam conducted with a material worker present. Vitals: Estimated body mass index is [...] of: Wolfgang Hoffman DO documented in this encounterCrossroads Regional Medical CenterTngvkdypuw30-12-0774 History of Present illness Narrative* Elvia Calvillo NP - 04/17/2025 3:20 PM EDT [...] Ambulatory Problems Diagnosis Date Noted Third trimester ([facility]) 12/27/2022 ADHD (attention deficit hyperactivity [...] nursing note reviewed. Exam conducted with a material worker present. Vitals: Estimated body mass index is 24.45 kg/m as calculated from the following: Height as of 12/21/22: 5' 6 . Weight as of this encounter: 151 lb 8 oz. BP: 120/70 No LMP recorded. Patient is . ASSESSMENT & PLAN ICD-10-CM 1. Third trimester ([facility]) Z34.93 POCT urinalysis dipstick manually resulted Hemoglobin A1c 2. 28 weeks gestation of ([facility]) Z3A.28 Hemoglobin A1c Return OB: [...] of: Elvia Calvillo NP documented in this encounterCrossroads Regional Medical CenterCeecdwduin41-17-2428 History of Present illness Narrative* Elvia Calvillo NP - 04/03/2025 3:40 PM EDT Reason for Appointment: Patient ID: [...] Ambulatory Problems Diagnosis Date Noted Third trimester ([facility]) 12/27/2022 ADHD (attention deficit hyperactivity [...] nursing note reviewed. Exam conducted with a material worker present. Vitals: Estimated body mass index is 23.53 kg/m as calculated from the following: Height as of 12/21/22: 5' 6 . Weight as of this encounter: 145 lb 12.8 oz. BP: 100/60 No LMP recorded. Patient is . ASSESSMENT & PLAN ICD-10-CM 1. Second trimester ([facility]) Z34.92 2. 26 weeks gestation of ([facility]) Z3A.26 3. History of psychogenic nonepileptic seizure [...] of: Wolfgang Hoffman DO documented in this encounterCrossroads Regional Medical CenterSvyvbtzkpa57-86-3975 History of Present illness Narrative* MICHELLE Forrest - 03/20/2025 3:40 PM EDT 14 Reason for Appointment: Patient ID: Kemi Piper is a 19 y.o. female who presents for Routine Visit Patient presents today for Return OB appointment. MEDICATIONS Current Outpatient Medications Medication Instructions 28-0.8 MG tablet 1 tablet, Daily ALLERGIES No Known Allergies PROBLEMS Active Ambulatory Problems Diagnosis Date Noted Third trimester ([facility]) 12/27/2022 ADHD (attention deficit hyperactivity [...] nursing note reviewed. Exam conducted with a material worker present. Vitals: Estimated body mass index is 23.69 kg/m as calculated from the following: Height as of 12/21/22: 5' 6 . Weight as of 02/25/25: 146 lb 12.8 oz. BP: No LMP recorded. Patient is . ASSESSMENT & PLAN ICD-10-CM 1. Second trimester ([facility]) Z34.92 POCT urinalysis dipstick manually resulted 2. 24 weeks gestation of ([facility]) Z3A.24 3. Diabetes mellitus screening Z13.1 CBC [...] of: Elvia Calvillo NP documented in this encounterCrossroads Regional Medical CenterHiornaqvbc45-49-4336 History of Present illness Narrative* MICHELLE Forrest - 02/25/2025 3:40 PM EDT Reason for Appointment: Patient ID: Kemi Piper is a 19 y.o. female who presents for Routine Visit Patient presents today for Return OB appointment. MEDICATIONS Current Outpatient Medications Medication Instructions 28-0.8 MG tablet 1 tablet, Daily ALLERGIES No Known Allergies PROBLEMS Active Ambulatory Problems Diagnosis Date Noted Third trimester ([facility]) 12/27/2022 ADHD (attention deficit hyperactivity disorder) 01/11/2012 [...] ASSESSMENT & PLAN ICD-10-CM 1. Second trimester ([facility]) Z34.92 POCT urinalysis dipstick manually resulted 2. 20 weeks gestation of ([facility]) Z3A.20 POCT urinalysis dipstick manually resulted Return [...] of: Wolfgang Hoffman DO documented in this encounterCrossroads Regional Medical CenterCzkhnunwzc12-60-1777 History of Present illness Narrative* MICHELLE Forrest - 01/29/2025 1:40 PM EDT [...] Ambulatory Problems Diagnosis Date Noted Third trimester ([facility]) 12/27/2022 ADHD (attention deficit hyperactivity [...] nursing note reviewed. Exam conducted with a material worker present. Vitals: Estimated body mass index is 21.95 kg/m as calculated from the following: Height as of 12/21/22: 5' 6 . Weight as of 01/01/25: 136 lb. BP: No LMP recorded. Patient is . ASSESSMENT & PLAN ICD-10-CM 1. Well woman exam with routine gynecological exam Z01.419 Pap Smear 2. Second trimester ([facility]) Z34.92 Alpha fetoprotein, maternal Alpha fetoprotein, maternal US OB 14+ weeks anatomy scan 3. 16 weeks gestation of ([facility]) Z3A.16 Alpha fetoprotein, maternal Alpha fetoprotein, maternal US OB 14+ weeks anatomy scan 4. Vaginal discharge N89.8 SURESWAB(R) ADVANCED VAGINITIS PLUS, TMA 5. STD exposure Z20.2 CHLAMYDIA TRACHOMATIS (GENITO/STI) Neisseria gonorrhea DNA probe, direct 6. Screening, , for anatomic survey ([facility]) Z36.89 US OB 14+ weeks anatomy scan Return OB/Annual Exam: Patient presents today for a annual exam/routine obstetrics appointment. Patient is currently 91u0tuwzjgufy. Patient states she is doing well but [...] behalf of: MICHELLE Forrest documented in this encounterCrossroads Regional Medical CenterSdwlcdtwyi40-18-4408 History of Present illness Narrative* Porsha Mejia LPN - 01/01/2025 1:40 PM EDT Reason for Appointment: Patient ID: Kemi Piper is a 19 y.o. female who presents for Routine Visit Patient presents today for Return OB appointment. MEDICATIONS Current Outpatient Medications Medication Instructions 28-0.8 MG tablet 1 tablet, Daily ALLERGIES No Known Allergies PROBLEMS Active Ambulatory Problems Diagnosis Date Noted Third trimester 12/27/2022 ADHD (attention deficit hyperactivity disorder) ([facility]) 01/11/2012 Deterioration in school performance 01/21/2015 Migraines ([facility]) 11/28/2020 Nocturnal enuresis 12/12/2012 Psychogenic nonepileptic seizure [...] nursing note reviewed. Exam conducted with a material worker present. Vitals: Estimated body mass index is [...] or undercooked meat, and stay away from [facility]. Patient has been consulted regarding any further do's and don'tsof . Patient voiced understanding and all questions and concerns were answered. Pt having s martine, pt being referred to neurology. Orders Placed This Encounter Procedures POCT urinalysis dipstick manually resulted Follow Up: Patient is to return in 4 weeks for routine OB appointment. Documented by Porsha Mejia LPN on behalf of: Wolfgang Hoffman DO documented in this encounterCrossroads Regional Medical CenterMoizlncvlo63-33-1949 History of Present illness Narrative* Pat Skelton LPN - 12/06/2024 1:00 PM EDT Reason for Appointment: Patient ID: [...] trimester 12/27/2022 ADHD (attention deficit hyperactivity disorder) ([facility]) 01/11/2012 Deterioration in school performance 01/21/2015 Migraines [...] drink 6-8 glasses of water a day, eatno raw or undercooked meat, and stay away from [facility]. Patient has also been advised to not change litter boxes and eat 6 small meals a day. Patient has been consulted regarding the do's and don'ts ofpregnancy. Patient was given labs and all questions and concerns were answered. Patient was given [place] to have completed with Initial labs. Follow Up: Patient is to return in 4 weeks for routine OB appointment. Follow Up: Patient is to have labs drawn at directed and return to office for initial OB appointment with provider. Patient may call office as needed with any concerns or questions. Nurse Visit Completed by: Pat Skelton LPN documented in this encounterCrossroads Regional Medical CenterQuwgqbzhev82-64-2014 History of Present illness Narrative* Monique Arora LPN - 11/08/2024 11:30 AM EDT Reason for Appointment: Patient ID: Kemi [...] ONE TABLET ON THE TONGUE AND ALLOW TODISSOLVE EVERY 6 HOURS NEEDED FOR 3 DAYS pantoprazole (PROTONIX) 40 mg, Oral Vit-Fe Fumarate-FA ( Plus) 27-1 MG tablet Every 24 hours ALLERGIES No Known Allergies PROBLEMS Active Ambulatory Problems Diagnosis Date Noted Third trimester 12/27/2022 ADHD (attention deficit hyperactivity disorder) ([facility]) 01/11/2012 Deterioration in school performance 01/21/2015 Migraines [...] nursing note reviewed. Exam conducted with a material worker present. Vitals: Estimated body mass index is [...] for seizures. 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 Patient to return to clinic in 3-4 weeks for viability US and OB Intake. 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 Documented by Monique Arora LPN on behalf of: Wolfgang Hoffman DO documented in this encounterCrossroads Regional Medical CenterAhfcrahppz95-01-9087 History of Present illness Narrative* MICHELLE Forrest - 09/25/2024 3:00 PM EST Reason for Appointment: Patient ID: Kemi Piper [...] ONE TABLET ON THE TONGUE AND ALLOW TODISSOLVE EVERY 6 HOURS NEEDED FOR 3 DAYS pantoprazole (PROTONIX) 40 mg, Oral Vit-Fe Fumarate-FA ( Plus) 27-1 MG tablet Every 24 hours ALLERGIES No Known Allergies PROBLEMS Active Ambulatory Problems Diagnosis Date Noted Third trimester 12/27/2022 ADHD (attention deficit hyperactivity disorder) ([facility]) 01/11/2012 Deterioration in school performance 01/21/2015 Migraines ([facility]) 11/28/2020 Nocturnal enuresis 12/12/2012 Psychogenic nonepileptic seizure ([facility]) 11/29/2020 Resolved Ambulatory Problems Diagnosis Date Noted [...] of: Wolfgang Hoffman DO documented in this encounterCrossroads Regional Medical CenterCbmbivouwq51-86-7988 Miscellaneous Notes* Telephone Encounter - Tessa Roberts CMA - 11/03/2023 11:37 AM EDT We received a letter from [employer] stating that the procedure on 09/27/23 was not covered. The Cholecystectomy was ordered by Dr Morgan on 09/27/23, the actual surgery wasn't performed until 10/03/23. I scanned the letter into her chart & spoke to Trinity, at the [employer] Main line. She could seethe letter & she will get it to the [facility] specialist. documented in this encounterAvita Health System [facility]03-28-2024 Telephone encounter Note* Telephone Encounter - Tessa Roberts CMA - 11/03/2023 11:37 AM EDT We received a letter from [employer] stating that the procedure on 09/27/23 was not covered. The Cholecystectomy was ordered by Dr Morgan on 09/27/23, the actual surgery wasn't performed until 10/03/23. I scanned the letter into her chart & spoke to Trinity, at the [employer] Main line. She could seethe letter & she will get it to the [facility] specialist. [facility]03-12-2024 History of Present illness Narrative* Viki Patel, VIRI-TECHNICAL SYSTEM ANALYST - 10/18/2023 10:00 AM EDT Subjective Kemi Piper is a 18 y.o. female status post robotic assisted laparoscopic cholecystectomy on2/. She is doing well and has no [...] Status post laparoscopic cholecystectomy [Z90.49] GERMAN DEAN [facility] General Surgery [place] This note was created with the assistance of a speech recognition program. While intending to generate a timely document that accurately reflects the content of the visit, no guarantee can be provided that every grammatical or spelling mistake has been or will be identified or corrected. Thank you for your understanding. GERMAN Dean 10/18/23 1014 documented in this encounterAv[facility] NoteXR CHEST 2 VWS Procedure: Chest x-ray performed Number of views:2 History:Preop asthma Comparison:None Findings: The heart and lungs show no acute findings, and the mediastinum and manasa are grossly negative . Impression: 1. No acute change. Finalized by Umesh Bolaños MD on 09/28/2023 10:05 [facility] 09-28-2023 Note Procedure: Chest x-ray performed Number of views:2 History:Preop asthma Comparison:None Findings: The heart and lungs show no acute findings, and the mediastinum and manasa are grossly negative . Impression: 1. No acute change. Finalized by Umesh Bolaños MD on 09/28/2023 10:05 [id number] Instructions* Patient Instructions* Noemí Arnett RN - 09/28/2023 9:00 AM EST Preoperative Education Checklist- General Surgery date: 10/03/23 Surgery time: 1100 a.m. Arrival time: 0900 a.m. 1. Bring a photo ID and your insurance card with you the day of surgery. You will check in at the main lobby of the [facility]- registration desk is straight ahead as soon as you walk in. Tell them you are here for surgery. 2. If you have a Living Will/Durable Power of Tests Superintendent for Health Care that is not on [...] after you have bathed. 5. NO nail british/acrylic on at least one finger. If you are having a hand, wrist or foot surgery then all nail british and artificial/acrylic nails must be removed from [...] least 8 hours and marijuana for 24 hoursprior to arrival for your surgery. 16. If [...] please call the Preadmission Testing office at [phone], Mon.-Fri. 7 a.m.-3 p.m. Leave a voicemail [...] after surgery- do not stop unless directed ryne your physician. You may also be given [...] is normal. Call your doctor if you noticeany of the following: -Increased redness or hardening [...] water and pat the area dry with aclean towel. -No re-using wash cloths or towels; [...] appointment with your doctor. documented in this encounterAvita [facility]24 Miscellaneous Notes* Perioperative Nursing Note - Noemí Arnett RN - 09/28/2023 9:00 AM EST Preoperative Education Checklist- General Surgery date: 10/03/23 Surgery time: 1100 a.m. Arrival time: 0900 a.m. 1. Bring a photo ID and your insurance card with you the day of surgery. You will check in at the main lobby of the [facility]- registration desk is straight ahead as soon as you walk in. Tell them you are here for surgery. 2. If you have a Living Will/Durable Power of Tests Superintendent for Health Care that is not on [...] after you have bathed. 5. NO nail british/acrylic on at least one finger. If you are having a hand, wrist or foot surgery then all nail british and artificial/acrylic nails must be removed from [...] least 8 hours and marijuana for 24 hoursprior to arrival for your surgery. 16. If [...] please call the Preadmission Testing office at [phone], Mon.-Fri. 7 a.m.-3 p.m. Leave a voicemail [...] after surgery- do not stop unless directed ryne your physician. You may also be given [...] is normal. Call your doctor if you noticeany of the following: -Increased redness or hardening [...] water and pat the area dry with aclean towel. -No re-using wash cloths or towels; [...] to the follow-up appointment with your doctor. * Perioperative Nursing Note - Noemí Arnett RN - 09/28/2023 9:00 AM EST Hibiclens and surgical instructions reviewed. Patient verbalized understanding. documented in this encounterAvita [facility]02-21-2024 Nurse Note* Perioperative Nursing Note - Noemí Arnett RN - 09/28/2023 9:00 AM EST Preoperative Education Checklist- General Surgery date: 10/03/23 Surgery time: 1100 a.m. Arrival time: 0900 a.m. 1. Bring a photo ID and your insurance card with you the day of surgery. You will check in at the main lobby of the [facility]- registration desk is straight ahead as soon as you walk in. Tell them you are here for surgery. 2. If you have a Living Will/Durable Power of Tests Superintendent for Health Care that is not on [...] after you have bathed. 5. NO nail british/acrylic on at least one finger. If you are having a hand, wrist or foot surgery then all nail british and artificial/acrylic nails must be removed from [...] least 8 hours and marijuana for 24 hoursprior to arrival for your surgery. 16. If [...] please call the Preadmission Testing office at [phone], Mon.-Fri. 7 a.m.-3 p.m. Leave a voicemail [...] after surgery- do not stop unless directed ryne your physician. You may also be given [...] is normal. Call your doctor if you noticeany of the following: -Increased redness or hardening [...] water and pat the area dry with aclean towel. -No re-using wash cloths or towels; [...] to the follow-up appointment with your doctor. [facility]02-21-2024 Nurse Note* Perioperative Nursing Note - Noemí Arnett RN - 09/28/2023 9:00 AM EST Hibiclens and surgical instructions reviewed. Patient verbalized understanding. [facility]02-20-2024 History of Present illness Narrative* Alo Morgan MD - 09/27/2023 11:00 AM EST Images from the original note were not included. Chief Complaint: Right upper quadrant pain History of Present Illness: Kemi Piper is a 18 y.o. female presents to the office with right upper quadrant pain. She states that she began experiencing this pain 6 months ago. It started after her . She statesthat the pain is located in the right [...] acute cholecystitis. Less than 1 cm polyp notedas well. Assessment: Kemi Piper is a 18 [...] patient/family/caregiver Referring and communicating with other health career development specialist Alo Morgan MD [facility] [place] documented in this encounterAvita Health [facility]02-06-2024 Miscellaneous Notes* Telephone Encounter - Deja Roberts - 09/13/2023 10:46 AM EST Patient no called no showed for appointment with Dr. Morgan. I called Kemi to see if we could reschedule this appointment. Left message on voicemail to call the office back as I was unable to make contact. documented in this encounterAvita [facility]02-06-2024 Telephone encounter Note* Telephone Encounter - Deja Roberts - 09/13/2023 10:46 AM EST Patient no called no showed for appointment with Dr. Morgan. I called Kemi to see if we could reschedule this appointment. Left message on voicemail to call the office back as I was unable to make contact. [facility] Miscellaneous Notes* Telephone Encounter - Paola Temple CMA - 08/23/2023 8:13 AM EST Left message for patient to call back to reschedule appointment. documented in this encounterAvita [facility]01-16-2024 Telephone encounter Note* Telephone Encounter - Paola Temple CMA - 08/23/2023 8:13 AM EST Left message for patient to call back to reschedule appointment. [facility]01-09-2024 Miscellaneous Notes* Telephone Encounter - Deja Roberts - 08/16/2023 11:03 AM EST Called patient in regard to gallstone referral from Dr. Montez's office. Left message on voicemail to call the office back to schedule appointment. * Telephone Encounter - Deja Roberts - 08/16/2023 11:03 AM EST Sandeep called the office back and scheduled an appointment with Dr. Morgan for 08-23-23. documented in this [facility]01-09-2024 Telephone encounter Note* Telephone Encounter - Deja Roberts - 08/16/2023 11:03 AM EST Called patient in regard to gallstone referral from Dr. Hoy's office. Left message on voicemail to call the office back to schedule appointment. [id number] Telephone encounter Note* Telephone Encounter - Deja Roberts - 08/16/2023 11:03 AM EST Rajeevdayanara called the office back and scheduled an appointment with Dr. Morgan for 08-23-23. [employer]04-24-2021 NoteDischarge/Transfer Summary Name: Kemi Piper MR#: [id number] : 2005 Room #: 6221/01 Age/Sex: 15 y.o. female Admit Date: 11/28/2020 Admitting: Reggie Conner MD Discharge Date: 11/29/2020 Discharged from: [facility] Attending: Dr. Reggie Conner MD Final [...] with vision loss. She was seen at [facility] Emergency department and observed with normal labs (CBC, BMP, UA, HCG, HFP). She was discharged home, but later that night had a second and third episode with full body shaking, sleep, nightmare, and subsequent loss of vision and staring spell. She was unresponsive following. Family returned to [facility] Emergency department. Repeat BMP NL. Given Keppra 500mg and normal saline bolus. Family requested second opinion and she was admitted directly to [facility] Neurology. On the floor, patient complained [...] Up Future Labs/Procedures Ex (more content not included)...[facility]04-23-2021 NoteMEDICAL ADMISSION HISTORY AND PHYSICAL Date of Service: 11/28/2020 Attending [...] of seizure like episodes since Jul. 1d [employer], estimated as 1840, patient had a spacing [...] did then have a second episode at 2, described as violent shaking of her entire [...] This prompted family to seek evaluation at [facility] once more. They do note [...] mom identifies as Dr. Jesús Choe in [place]. They have an upcoming appointment on 12/02. Of note, she was recently seen at [facility] on 11/15, where lab work included [...] injuries: did recently hit her head 4d [employer] (sister was getting this day and she [...] Medication changes: Has bee (more content not included)...[facility] No data available for this section [facility] [place] Evaluation note* Diagnosis Biliary colic- Primary Calculus of gallbladder without mention of cholecystitis or obstruction documented [facility] this encounter [facility] Diagnosis Preop examination- Primary Unspecified pre-operative examination Asthma, unspecified asthma severity, unspecified whether complicated, unspecified whether persistent Preop examination Unspecified pre-operative examination Asthma, unspecified asthma severity, unspecified whether complicated, unspecified whether persistent Preop examination Unspecified pre-operative examination Asthma, unspecified asthma severity, unspecified whether complicated, unspecified whether persistent documented in this encounter [facility]* Diagnosis Status post laparoscopic cholecystectomy- Primary Other postprocedural status documented in this encounter [facility]* Diagnosis PCOS (polycystic ovarian syndrome)- [...] gynecological exam Routine gynecological examination Second trimester ([facility]) state, incidental 16 weeks gestation of ([facility]) Vaginal discharge Leukorrhea, not specified as infective STD exposure Screening, , for anatomic survey ([facility]) Encounter for anatomic survey [facility] Diagnosis Second trimester ([facility]) state, incidental 20 weeks gestation of ([facility]) documented [facility]* Diagnosis Second trimester ([facility]) state, incidental 24 weeks gestation of ([facility]) Diabetes mellitus screening Screening for diabetes mellitus Yeast infection BV (bacterial vaginosis) Unspecified vaginitis and vulvovaginitis Urinary tract infection without hematuria, site unspecified [facility]* Diagnosis Anxiety, generalized- Primary Second trimester ([facility]) state, incidental 26 weeks gestation of ([facility]) History of psychogenic nonepileptic seizure documented [facility]* Diagnosis Third trimester ([facility]) state, incidental 28 weeks gestation of ([facility]) documented [facility]* Diagnosis Third trimester ([facility]) state, incidental 29 weeks gestation of ([facility]) Psychogenic nonepileptic seizure Diabetes mellitus screening Screening for diabetes mellitus documented [facility]* Diagnosis 31 weeks gestation of ([facility]) Third trimester ([facility]) state, incidental documented [facility]* Diagnosis size inconsistent with dates ([facility])- Primary 33 weeks gestation of ([facility]) Third trimester ([facility]) state, incidental Psychogenic nonepileptic seizure [facility] Dis[facility] instructions No data available for this section [facility] [place] InstructionsNot on filedocumented in this encounter [facility]Not on filedocumented in this encounter [facility] System[facility]ructionsNot on filedocumented in this encounter [facility] SystemInstructionsNot on filedocumented in this encounter [facility] note No data available for this section [facility] [place] Summary Purpose Family History No Family History [...] Advanced Directives Records Found Reason for Referral SpecialtyDiagnoses / ProceduresReferred By ContactReferred To Contact Diagnoses Preop examination Asthma, unspecified asthma severity, unspecified whether complicated, unspecified whether persistent Procedures ECG 12 lead Yo Berman MD [address] [place] [address] Referral IDStatusReasonStart DateExpiration DateVisits RequestedVisits [id number] [id number] / ProceduresReferred By ContactReferred To Contact Diagnoses Biliary colic Procedures Unlisted Procedure / Surgery Alo Morgan MD [address] [place] [address] Referral IDStatusReasonStart DateExpiration DateVisits RequestedVisits [id number] Review/ Additional Source Comments INFORMATION SOURCE (unrecogn ized section and content) DATE CREATED AUTHOR 11/30/2020 [facility] DATE CREATED AUTHOR AUTHOR'S ORGANIZ ATION 01/14/2023 [facility] DATE CREATED AUTHOR AUTHOR'S ORGANIZ ATION 07/27/2023 [facility] DATE CREATED AUTHOR AUTHOR'S ORGANIZ ATION 09/12/2023 [facility] DATE CREATED AUTHOR AUTHOR'S ORGANIZ ATION 10/08/2023 [facility] DATE CREATED AUTHOR AUTHOR'S ORGANIZ ATION 10/19/2023 [facility] DATE CREATED AUTHOR AUTHOR'S ORGANIZ ATION 03/17/2025 [facility] DATE CREATED AUTHOR AUTHOR'S ORGANIZ ATION 05/28/2025 [facility] EPIC Patient Care team informatio n (unrecognized section and content) Team MemberRelationshipSpecialtyStart DateEnd Date Rashard Montez MD [address] [facility] [place] [address] PCP - GeneralFamily Medicine03/25/21Team MemberRelationshipSpecialtyStart DateEnd Date Rashard Montez MD [address] [facility] [place] [address] PCP - GeneralFamily Medicine03/25/21Team MemberRelationshipSpecialtyStart DateEnd Date Rashard Montez MD [address] [facility] [place] [address] PCP - GeneralFamily Medicine03/25/21Team MemberRelationshipSpecialtyStart DateEnd Date Rashard Montez MD [address] [facility] [place] [address] PCP - GeneralFamily Medicine03/25/21Team MemberRelationshipSpecialtyStart DateEnd Date Rashard Montez MD [address] [facility] [place] [address] PCP - GeneralFamily Medicine03/25/21Team MemberRelationshipSpecialtyStart DateEnd Date Rashard Montez MD [address] [facility] [place] [address] PCP - GeneralFamily Medicine03/25/21Team MemberRelationshipSpecialtyStart DateEnd Date Rashard Montez MD [address] [facility] [place] [address] PCP - GeneralFamily Medicine02/16/23Team MemberRelationshipSpecialtyStart DateEnd Date Rashard Montez MD [address] [facility] [place] [address] PCP - GeneralFamily Medicine02/16/23Team MemberRelationshipSpecialtyStart DateEnd Date Rashard Montez MD [address] [facility] [place] [address] PCP - GeneralFamily Medicine02/16/23Team MemberRelationshipSpecialtyStart DateEnd Date Rashard Montez MD [address] [facility] [place] [address] PCP - GeneralFamily Medicine02/16/23Team MemberRelationshipSpecialtyStart DateEnd Date Rashard Montez MD [address] [facility] [place] [address] PCP - GeneralFamily Medicine02/16/23Team MemberRelationshipSpecialtyStart DateEnd Date Rashard Montez MD [address] [facility] [place] [address] PCP - GeneralFamily Medicine02/16/23Team MemberRelationshipSpecialtyStart DateEnd Date Rashard Montez MD [address] [facility] [place] [address] PCP - GeneralFamily Medicine02/16/23Team MemberRelationshipSpecialtyStart DateEnd Date Rashard Montez MD PCP - GeneralFamily Medicine02/16/23Team MemberRelationshipSpecialtyStart DateEnd Date Rashard Montez MD [address] [facility] [place] [address] PCP - GeneralFamily Medicine02/16/23Team MemberRelationshipSpecialtyStart DateEnd Date Rashard Montez MD [address] [facility] [place] [address] PCP - GeneralFamily Medicine02/16/23Team MemberRelationshipSpecialtyStart DateEnd Date Rashard Montez MD [address] [facility] [place] [address] PCP - GeneralFamily Medicine02/16/23Team MemberRelationshipSpecialtyStart DateEnd Date Rashard Montez MD [address] [facility] [place] [address] PCP - GeneralFamily Medicine02/16/23Team MemberRelationshipSpecialtyStart DateEnd Date Rashard Montez MD [address] [facility] [place] [address] PCP - GeneralFamily Medicine02/16/23Team MemberRelationshipSpecialtyStart DateEnd Date Rashard Montez MD [address] [facility] [place] [address] PCP - GeneralFamily Medicine02/16/23Team MemberRelationshipSpecialtyStart DateEnd Date Rashard Montez MD [address] [facility] [place] [address] PCP - GeneralFamily Medicine02/16/23Team MemberRelationshipSpecialtyStart DateEnd Date Rashard Montez MD [address] [facility] [place] [address] PCP - GeneralFamily Medicine02/16/23Team MemberRelationshipSpecialtyStart DateEnd Date Rashard Montez MD [address] [facility] [place] [address] PCP - GeneralFamily Medicine02/16/23Team MemberRelationshipSpecialtyStart DateEnd Date Rashard Montez MD [address] [facility] [place] [address] PCP - GeneralFamily Medicine02/16/23 Reason for Visit (unrecogniz ed section and content) ReasonCommentsCholelithiasisCHOLELITHIAIS, REFERRED BY DR. Nair Post-opPost op davinci cholecystectomy performed 10/03/23 at PMHReasonComments discuss cyclesReasonCommentsFollow-upReasonCommentsAmenorrheaReasonComments Routine VisitReasonCommentsRoutine VisitWell Women VisitSTI ScreeningReasonCommentsRoutine Visit31 weeks 5 days FOR RECORDS PERTAINING TO PATIENTS WHO ARE [...] BE BASED ON THE PRIMARY CLINICAL RECORDS. [facility] [employer] [facility]. provides no warranty or guarantee of the accuracy or completeness of information in this document.
[2025-06-02 08:08] LABS: Varicella-Zoster V Ab, IgG Reactive (Non Reactive)
== END 2025-05-31 16:46 | disposition home or self-care (01) ==
LOC: LAB 16:46
PROVIDERS: PCP Family Medicine; Visit Provider Family Medicine
DX: J01.90 Acute sinusitis, unspecified (principal); D57.3 Sickle-cell trait
CPT/HCPCS: 36415; 83020; 85660; 86787

== ENCOUNTER 2025-06-10 19:46 | Outpatient (REF) | payer OTHER, SELFPAY ==
--- OUTSIDE RECORDS SUMMARY | 2025-05-27 14:50 | XMS_ITS | Encounter Summary ---
Author Organization [facility] Address [address] [place] [address] Care Team Providers Care Automotive Parts Advisor Name Role Phone Jose E Burns MD Primary Care Provider [phone] Reason for Visit * ReasonCommentsRoutine Visit Encounter Details DateTypeDepartmentCare Team (Latest Contact Info)Kaxsxurwnyd75/20/2025 3:50 PM EDTRoutine [facility] [address] [place] [place] [address] Wolfgang Hoffman DO [address] [place], [place] [id number] size inconsistent with dates ([facility]) (Primary Dx); 33 weeks gestation of ([facility]); Third trimester ([facility]); Psychogenic nonepileptic seizure Social History Tobacco UseTypesPacks/DayYears UsedDateSmoking Tobacco: Never AssessedPHQ-2 AnswerDate RecordedPatient Health Questionnaire-2 Edenz140 Estimated Date of XutthrxbZhwpqdxnZxr98/03/2025Based on Ultrasound, FHR-158Sex and Gender InformationValueDate RecordedSex Assigned at BirthNot on fileLegal IdjGebnav77/15/2023 6:34 PM EDTGender IdentityNot on fileSexual OrientationNot on filedocumented as of this encounter Last Filed Vital Signs Vital SignReadingTime TakenCommentsBlood Apahkkgw967/8010 4:15 PM EDT Pulse--Temperature--Respiratory Rate--Oxygen Saturation--Inhaled Oxygen Concentration--Ojxtza93.8 kg (160 lb 6.4 oz)05/27/2025 4:15 PM EDTHeight--Body Mass Index25.8912/21/2022 12:00 PM EDTdocumented in this encounter Progress Notes * Ela Calvillo NP - 05/27/2025 3:50 PM EDT Reason for Appointment: Patient ID: Kemi Piper is a 20 y.o. female who presents for Routine Visit Patient presents today for Return OB appointment. MEDICATIONS Current Outpatient Medications Medication Instructions citalopram (CELEXA) 20 mg, Oral, Daily metroNIDAZOLE (Metrogel) 0.75 % vaginal gel Patient to use vaginally nightly for 5 nights, then twice weekly thereafter for 4 months. 28-0.8 MG tablet 1 tablet, Daily ALLERGIES Allergies[1] PROBLEMS Active Ambulatory Problems Diagnosis Date Noted Third trimester ([facility]) 12/27/2022 ADHD (attention deficit hyperactivity disorder) 01/11/2012 Deterioration in school performance 01/21/2015 Migraines 11/28/2020 Nocturnal enuresis 12/12/2012 Psychogenic nonepileptic seizure 11/29/2020 Resolved Ambulatory Problems Diagnosis Date Noted No Resolved Ambulatory Problems No Additional Past Medical History HISTORY PAST MEDICAL HISTORY SOCIAL HISTORY Medical History[2] Social History Tobacco Use Smoking status: Not on file Smokeless tobacco: Not on file Vaping Use Vaping status: Every Day Substances: Nicotine Substance Use Topics Alcohol use: Not on file Drug use: Not on file FAMILY HISTORY Family History[3] SURGICAL HISTORY Surgical History[4] REVIEW OF SYSTEMS Review of Systems: Review [...] nursing note reviewed. Exam conducted with a experimental assembler present. Vitals: Estimated body mass index is 25.89 kg/m?? as calculated from the following: Height as of 12/21/22: 5' 6 . Weight as of this encounter: 160 lb 6.4 oz. BP: 130/80 No LMP recorded. Patient is . Assessment/Plan ICD-10-CM 1. 33 weeks gestation of ([facility]) Z3A.33 POCT urinalysis dipstick manually resulted 2. Third trimester ([facility]) Z34.93 POCT urinalysis dipstick manually resulted 3. Psychogenic nonepileptic seizure F44.5 POCT urinalysis dipstick manually resulted Return OB: Patient presents today for a routine obstetrics appointment. Patient is currently 33w5d . Patient states she is doing well but has complaints of being tired due to current . Patient has verbalizes frequent movement. labor precautions was discussed/given and patient was instructed to perform kick counts three times a day. Orders Placed This Encounter Procedures POCT urinalysis dipstick manually resulted Follow Up: Patient is to return to office in 2 week for routine OB appointment. Documented by Ela Calvillo NP on behalf of: Wolfgang Hoffman DO [1] No Known Allergies [2] History reviewed. No pertinent past medical history. [3] No family history on file. [4] Past Surgical History: Procedure Laterality Date APPENDECTOMY GALLBLADDER documented in this encounter Plan of Treatment DateTypeDepartmentCare Team (Latest Contact Info)Yfzohdlfefc81/07/2025 3:30 PM ESTRoutine [facility] [address] [place] [place] [phone] Wolfgang Hoffman, DO [address] [place], [place] [id number] 07/17/2025 3:40 PM ESTPostpartum Visit [facility] [place] [facility] [address] [place] [address] Wolfgang Hoffman, DO [address] [place], [place] [id number] NameTypePriorityAssociated DiagnosesOrder ScheduleUS OB follow up transabdominal approachImagingRoutine size inconsistent with dates ([facility]) Expected: 05/27/2025, Expires: 09/27/2025documented as of this encounter Procedures Procedure NamePriorityDate/TimeAssociated DiagnosisCommentsPOCT URINALYSIS MJSNFZGYQougtew13/20/2025 4:20 PM EDT 33 weeks gestation of ([facility]) Third trimester ([facility]) Psychogenic nonepileptic seizure documented in this encounter Results * (ABNORMAL) POCT urinalysis dipstick manually resulted (05/27/2025 4:20 PM EDT) ComponentValueRef RangeTest MethodAnalysis TimePerformed AtPathologist SignatureColor, UAYellowClarity, UAClearGlucose, UANegativeNegative - 1999(110) ++++ mg/dLBilirubin, UANegativeNegative - 4(70) +++ mg/dLKetones, UA PositiveNegative - 160(16) ++++ mg/dLSpec Grav, UA1.0151 - 1.03Blood, UA NegativeNegative - 50 Blayne/mcLpH, UA6.05 - 9Protein, UANegativeNegative - 1999(20) ++++ mg/dLUrobilinogen, UA1.00.2 - 12 mg/dLLeukocytes, UA3+Negative - 500+++ Jo/mcLNitrite, UANegativeNegative - PositiveSpecimen (Source) Anatomical Location / LateralityCollection Method / VolumeCollection Time Received XpnjCjjpy28/20/2025 4:20 PM EDT Narrative Authorizing ProviderResult TypeResult StatusCorey Yasmin DOPOINT OF CARE TEST ENTER/EDIT ORDERABLESFinal Result documented in this encounter Visit Diagnoses Diagnosis size inconsistent with dates ([facility])- Primary 33 weeks gestation of ([facility]) Third trimester ([facility]) state, incidental Psychogenic nonepileptic seizure documented in this encounter Care Teams Team MemberRelationshipSpecialtyStart DateEnd Date Jose E Burns MD [address] [place] [address] PCP - GeneralFamily Medicine02/16/23documented as of this encounter
--- OUTSIDE RECORDS SUMMARY | 2025-05-29 10:30 | XMS_ITS ---
Author Organization [facility] in [place] Address [address] [place] [address] Care Team Providers Care Workers Compensation Claims Adjuster Name Role Phone Ozzie Burns Primary Care Provider Allergies No Known Allergies REASON FOR VISIT hard cough, green drainage, started a week ago, 34 weeks Medications Medication SIG (Take, Route, Frequency, Duration) Notes Start Date End Date Status Ventolin HFA 108 (90 Base) MCG/ACT 2 puff as needed Inhalation every 4 hrs; Duration: 30 PRN 12/01/2022 ActiveCefdinir 250 MG/5ML12 ml Orally daily; Duration: 10 days5Active Social History Tobacco Use: Social History Observation Description Date Details (start date - stop date) Current Smoker 08/08/2015 - NA Tobacco Use/Smoking Question Answer Notes Patient is a current smoker When did you start smoking?08/08/2015How often do you smoke cigarettes?every day How many cigarettes a day do you smoke?5 or lessHow soon after you wake up do you smoke your first cigarette?within 5 minutesAre you interested in quitting? Not ready to quitAUDIT-C (Standard) Question Answer Notes Did you have a drink containing alcohol in the p ast year? No Jybzlm5SqjcskoapbomojFacdsubt Vital Signs Weight 163 lbs 05/29/2025 Height 69 in 05/29/2025 Blood pressure systolic 118 mm Hg 05/29/20 25 Blood pressure diastolic 72 mm Hg 025 Temperature 97.8 degrees Fahrenheit 05/29/20 25 BMI 24.07 kg/m2 05/29/2025 Encounters Encounter Location Date Provider Diagnosis [facility] [address] [place] [address] 05/29/2025 Ozzie Burns Acute non-recurrent sinusitis, unspecified location J01.90 and Nasal congestion R09.81 Assessments Encounter Date Diagnosis (ICD Code) Assessment Notes Treatment Notes Treatment Clinical Notes Section Notes 05/29/2025 Acute non-recurrent sinusitis, unspecified location (ICD-10 - J01.90) Rest and drink more liquids, especially water. You may use a humidifier or vaporizer to help keep the drainage moist. Wzth-rxs-rlxkbyb Nasal Saline may help the stuffy and runny nose. Use Ibuprofen and or Tylenol as needed for fever, chills, body aches or pain. Children 5 years old should not be given vbow-fmz-endjelt cough and cold medications such as guaifenesin and dextromethorphan. If you're over age 5, you may try sarq-qzx-hookjlo cold medications such as guaifenesin and dextromethorphan, or multi-symptom cold reliever such as Dayquil to help reduce the symptoms. Antibiotics have been pre scribed. You should take these until completed and follow the directions. Antibiotics can sometimescause upset stomach, and in rare cases, serious allergic reactions or serious gastrointestinal problems. If you start having severe abdominal pain, severe vomiting, or bloody diarrhea, you should be r eevaluated by your physician or urgent care immediately. Follow up with your Primary Care Provider or return to clinic if symptoms do not improve within 3-5 days05/29/2025Nasal congestion (ICD-10 - R09.81) Plan Of Treatment Medication Medication Name Sig Start Date Stop Date Notes Cefdinir 250 MG/5ML 12 ml Orally daily; Duration: 10 d ays 05/29/2025 Treatment Notes Assessment Notes Acute non-recurrent sinusiti s, unspecified location Rest and drink more liquids, especially water. You may use a humidifier or vaporizer to help keep the drainage moist. Unqa-bxm-rvwiksz Nasal Saline may help the stuffy and runny nose. Use Ibuprofen and or Tylenol as needed for fever, chills, body aches or pain. Children 5 years old should not be given udrt-jdf-jlwptjj cough and cold medications such as guaifenesin and dextromethorphan. If you're over age 5, you may try xusk-xcv-mebjulo cold medications such as guaifenesin and dextromethorphan, [...] if symptoms do not improve within 3-5 days Pending Test Test Name Order Date SICKLE CELL SCR 05/29/2025 VARICELLA IGG AB 05/29/2025 Next Appt Details Follow Up: 3-5 days if not i mproving, Reason: Progress Notes * NATHANKemi Barth MDOB: 3 (20 yo F)Acc No.[id number]:05/29/2025 Progress Note Patient: Kemi SANTA :?Jose E Burns ([facility]), MDDOB:2005???Age: 20 Y???Sex:FemaleDate:05/29/2025Phone:[phone]:[address], [place], [id number] In:03:11 PM ESTCheck Out:03:39 PM EST Subjective: * Chief Complaints: * H cheyenne cough, green drainage, started a week ago, 34 weeks * HPI: ???Sinusitis:? The patient complains of symptoms of sinus infection. The symptoms have been present for 1-2 days. The symptoms are moderate. Symptomatic treatment has included OTC medication. Associated symptoms include headache, facial pain, runny nose, nasal congestion. * ROS: ???Skin:?Rash?denies.?ENT:?Comments?See HPI for details.?Cardiovascular:?Edema?denies.?Palpitations?denies.?Respiratory:?Chest pain?denies.?Cough?denies.?Wheezing denies.?Gastrointestinal:?Abdominal pain?denies.?Nausea?denies.?Vomiting?denies.? * Active Problem List F44.5 Conversion disorder with seizures or convulsions Modified On:05/17/2023 Status:xwoxzmsluA17.902Unspecified asthma with status asthmaticus Modified On:12/01/2022 Status:dukxgjqexU28.1Nocturia Modified On:12/01/2022 Status:tbqnrjbchZ89.83Fatigue Modified On:12/01/2022 Status:uehcerfjbX32.90Acute sinusitis Modified On:12/01/2022 Status:mftupnjpvG26.9Acute bronchitis Modified On:12/01/2022 Status:qgqmwtyqyW23.0Urinary tract infection Modified On:12/01/2022 Status:llgblkixyV08.3Over weight Modified On:12/01/2022 Status:ttxdkprehX13.2Nausea & vomiting Modified On:06/07/2023 Status:pkmpingvkV66Sorwsxzr Modified On:12/01/2022 Status:sambqplipA20.11Abdominal pain, RUQ Modified On:06/07/2023 Status:ffyopigncM78.5Pseudoseizures Modified On:12/01/2022 Status:adfvqedzvW80.2Loss of taste Modified On:12/01/2022 Status:covvoxztaL80.129Well child visit Modified On:12/01/2022 Status:cxrotdrziR92.9Seizure Modified On:12/01/2022 Status:pkzkxulnkV22.0Loss of smell Modified On:12/01/2022 Status:zaqubexipH15Jltrlcf Modified On:12/01/2022 Status:cudnvqsbhU78.4Episodic altered awareness Modified On:12/01/2022 Status:gyvcbbbnfH49.15Persistent vomiting Modified On:06/07/2023 Status:icigvsxedH78.9ADHD Modified On:06/07/2023U Status:upqhieumqM26.1COVID-19 virus infection Modified On:12/01/2022U Status:fzbzzbginV36.9Headache, unspecified Modified On:12/01/2022 Status:joehlcxdoE03.30Other cervical disc degeneration, unspecified cervical region Modified On:03/25/2023U Status:trczdizhzZ80.13Epigastric abdominal pain Modified On:06/02/2023U Status:mgvnfgaskD12.11Right upper quadrant pain Modified On:06/23/2023U Status:doflygxgvV82.20Gallstones Modified On:06/27/2023U Status:stdiphnmgR29.509AWrist sprain Modified On:07/11/2023 Status:ugqqacpiyS73.909Acute asthma Modified On:11/15/2023U Status:kvlewuoyxA77.9Nonepileptic episode Modified On:11/08/2024 Status:confirmed * Medical History: * Surgical History: a ppendicitis 01/2021Gallbladder 10/03/2023 * Hospitalization/Major Diagno stic Procedure: N o Hospitalization History. * Family History: F ather: alive 61 yrs. M other: alive 49 yrs. S ister(s): alive. 3 sister(s) - healthy. . * Social History: ???Tobacco Use:?Tobacco Use/Smoking?Patient is a?current smoker ?When did you start smoking??08/08/2015 ?How often do you smoke cigarettes??every day ?How many cigarettes a day do you smoke??5 or less ?How soon after you wake up do you smoke your first cigarette??within 5 minutes ?Are you interested in quitting??Not ready to quit ???Drug/Alcohol:?AUDIT-C (Standard)?Did you have a drink containing alcohol in the past year??No ?Points?0 ?Interpretation?Negative * Medications: T akingVentolin HFA(Albuterol Sulfate HFA) 108 (90 Base) MCG/ACT Aerosol Solution 2 puff as needed Inhalation every 4 hrs , Notes to Pharmacist: PRNMedication List reviewed and reconciled with the patientTaking Ventolin HFA(Albuterol Sulfate HFA) 108 (90 Base) MCG/ACT Aerosol Solution 2 puff as needed Inhalation every 4 hrs , Notes to Pharmacist: PRNMedication List reviewed and reconciled with the patient * Allergies: N .K.D.A.no[Allergies Verified] Objective: * Vitals: W t:163lbs, Ht: 69 in, BP:118/72mm Hg, Temp:97.8F, BMI:24.07Index, Ht-cm: 175.26 cm, Wt-k.94 kg. * Examination: ???General Examination: ?GENERAL APPEARANCE:? in no acute distress, well developed,well nourished.?ENT:? ear and nose external appearance normal, tympanic membranes clear bilaterally, facial tenderness to palpation over sinuses.?EYES:? pupils equal, round, reactive to light and accomodations.?ORAL CAVITY:? mucosa moist.?NECK:?neck supple, full range of motion, no cervical lymphadenopathy.?LUNGS:?clear to auscultation bilaterally.?CARDIO:? no murmurs, regular rate and rhythm, S1, S2 normal.?ABDOMEN:? soft, nontender , not distended, bowel sounds are active.?SKIN:? no suspicious lesions, warm and dry.?EXTREMITIES:? no clubbing, cyanosis, or edema.?NEUROLOGIC:? nonfocal, motor strength of upper/lower extremities intact , sensory exam intact.? Assessment: * Assessment: 1.?Acute non-recurrent sinusitis, unspecified location - J01.90 (Primary)???2.&# 160;Nasal congestion - R09.81??? Plan: * Treatment: Start Cefdinir Suspension Reconstituted, 250 MG/5ML, 12 ml, Orally, daily, 10 days, 120 ML, Refills0.?LAB: SICKLE CELL SCR ?LAB: VARICELLA IGG AB Notes:Rest and drink more liquids, especially water. You may use a humidifier or vaporizer to help keep the drainage moist. Vjnf-gla-advdloj Nasal Saline may help the stuffy and runny nose. Use Ibuprofen and or Tylenol as needed for fever, chills, body aches or pain. Children 5 years old should notbe given rtns-ati-djiuckb cough and cold medications such as guaifenesin and dextromethorphan. If you're over age 5, you may try gret-xrq-yaquodh cold medications such as guaifenesin and dextromethorphan, [...] if symptoms do not improve within 3-5 days?? * Procedure Codes: * Preventive Medicine: ??Screenings/Counseling:?TOBACCO ACTION PLAN?Patient counselled on the dangers of tobacco use and urged to quit.?. * Follow Up: 3 -5 days if not improving * * Sign off status: CompletedVisit Status:?CHK (Check Out) true * Provider: Siobhan Burns ([facility])MD Date: Generated for Printing/Faxing/eTransmitting on:?06/10/2025 07:48 PM EST History and Physical Notes * Examination CategorySub-CategoryDetailNotesCategory NotesGeneral ExaminationGENERAL APPEARANCE:in no acute distress, well developed, well nourishedENT:ear and nose external appearance normal, tympanic membranes clear bilaterally, facial tenderness topalpation over sinusesEYES:pupils equal, round, reactive to light and accomodationsNECK:neck supple, full range of motion, no cervical lymphadenopathyCARDIO:no murmurs, regular rate and rhythm, S1, S2 normalLUNGS: clear to auscultation bilaterallyABDOMEN:soft, nontender , not distended, bowel sounds are activeNEUROLOGIC:nonfocal, motor strength of upper/lower extremities intact , sensory exam intactSKIN:no suspicious lesions, warm and dryEXTREMITIES: no clubbing, cyanosis, or edemaORAL CAVITY:mucosa moist
--- OUTSIDE RECORDS SUMMARY | 2025-06-03 13:49 | XMS_ITS ---
Author Organization [facility] in [place] Address [address] [place] [address] Care Team Providers [employer] Floorperson Name Role Phone Ozzie Burns Primary Care Provider [phone] REASON FOR VISIT ADD ON lab Encounters Encounter Location Date Provider Diagnosis [facility] [address] [place] [address] 06/03/2025 Ozzie Burns Sickle cell trait D57.3 Assessments Encounter Date Diagnosis (ICD Code) Assessment Notes Treatment Notes Treatment Clinical Notes Section Notes 06/03/2025 Sickle cell trait (ICD-10 - D57. 3) Plan Of Treatment Pending Test Test Name Order Date [facility] 06/03/2025 Progress Notes * Kemi PIPER MDOB: 3 (20 yo F)Acc No.[id number]:06/03/2025 Patient:?NATHAN Kemi Zambrano :2005???Age:20 Y???Sex:FemalePhone:[phone] Address:[address] [place] [address], [address] Subjective: * Chief Complaints: * A DD ON lab * Medical History: * Surgical History: * Hospitalization/Major Diagno stic Procedure: * Medications: Objective: * Vitals: * Physical Examination: ??? Assessment: * Assessment: 1.?Sickle cell trait - D57.3 (Primary)??? Plan: * Treatment: ?LAB: H[facility]* [facility] #[id number] * Procedure Codes: * true * Date:?Generated for Printing/Faxing/eTransmitting on:?06/10/2025 07:48 PM EST
--- OUTSIDE RECORDS SUMMARY | 2025-06-10 15:50 | XMS_ITS | Encounter Summary ---
Author Organization [facility] Address [address] [facility] [place] [address] Care Team Providers Care Plate Finisher Name Role Phone Jose E Burns MD Primary Care Provider [phone] Reason for Visit * ReasonCommentsRoutine Visit Encounter Details DateTypeDepartmentCare Team (Latest Contact Info)Stlmxfpfdig56/03/2025 3:50 PM ESTRoutine [facility] [address] [place] [address] Gogo Pang PA [address] [facility] [address] [place], [facility]11 Third trimester ([facility]); 35 weeks gestation of ([facility]); Psychogenic nonepileptic seizure Social History Tobacco UseTypesPacks/DayYears UsedDateSmoking Tobacco: Never AssessedPHQ-2 AnswerDate RecordedPatient Health Questionnaire-2 Ulvwi06908/10/2024 Estimated Date of XrpxhtvtHqolzyqwKyy19/03/2025Based on Ultrasound, FHR-158Sex and Gender InformationValueDate RecordedSex Assigned at BirthNot on fileLegal IlxNfvzxd83/15/2023 6:34 PM EDTGender IdentityNot on fileSexual OrientationNot on filedocumented as of this encounter Last Filed Vital Signs Vital SignReadingTime TakenCommentsBlood Kiclpzwx332/8011/10/2024 4:03 PM EST Pulse--Temperature--Respiratory Rate--Oxygen Saturation--Inhaled Oxygen Concentration--Yfevto10.8 kg (165 lb)06/10/2025 4:03 PM ESTHeight--Body Mass Index26.63012/21/2022 12:00 PM EDTdocumented in this encounter Functional Status * Over the past 2 weeks, how often have you been bothered by any of the following problems?QuestionAnswerDate of AssessmentAuthorLittle interest or pleasure in doing thingsNot at all06/10/2025 11:36 AM Gogo Glass LPN Feeling down, depressed, or hopelessNot at all06/10/2025 11:36 AM Gogo Glass LPNPatient Health Questionnaire-2 Fxtep47208/10/2024 11:36 AM Gogo Glass LPN documented as of this encounter Progress Notes * MICHELLE Forrest - 06/10/2025 3:50 PM EST Reason for Appointment: Patient ID: [...] Ambulatory Problems Diagnosis Date Noted Third trimester ([facility]) 12/27/2022 ADHD (attention deficit hyperactivity disorder) [...] Constitutional: Appearance: Normal appearance. She is well-developed. Genitourinary: Vulva normal. Right Adnexa: not tender and no mass present. Left Adnexa: not tender and no mass present. No cervical discharge. Breasts: Breasts are soft. Right: Normal. Left: Normal. HENT: Head: Normocephalic. Nose: Nose normal. Mouth/Throat: Mouth: Mucous membranes are moist. Cardiovascular: Rate and Rhythm: Normal rate and regular rhythm. Pulmonary: Effort: Pulmonary effort is normal. Breath sounds: Normal breath sounds. Abdominal: General: Bowel sounds are normal. There is no distension. Palpations: Abdomen is soft. Tenderness: There is no abdominal tenderness. There is no guarding or rebound. Musculoskeletal: General: No swelling. Normal range of motion. Cervical back: Normal range of motion. Right lower leg: No edema. Left lower leg: No edema. Neurological: General: No focal deficit present. Mental Status: She is alert and oriented to person, place, and time. Skin: General: Skin is warm and dry. Psychiatric: Mood and Affect: Mood normal. Behavior: Behavior normal. Vitals and nursing note reviewed. Exam conducted with a top dyeing machine tender present. Vitals: Estimated body mass index is 26.63 kg/m?? as calculated from the following: Height as of 12/21/22: 5' 6 . Weight as of this encounter: 165 lb. BP: 128/80 No LMP recorded. Patient is . Assessment/Plan ICD-10-CM 1. Third trimester ([facility]) Z34.93 POCT urinalysis dipstick manually resulted CULTURE, GROUP B STREP WITH SUSCEPTIBLITY CULTURE, GROUP B STREP WITH SUSCEPTIBLITY 2. 35 weeks gestation of ([facility]) Z3A.35 3. Psychogenic nonepileptic seizure F44.5 Patient is doing well but has complaints of being tired and having maternal discomfort due to . Patient verbalized frequent movement and was instructed to perform kick counts three times per day. labor precautions were given, LARC consent was signed/declined, and GBS was obtained. Cervical check was performed and patient is 0cm dilated. Orders Placed This Encounter Procedures CULTURE, GROUP B STREP WITH SUSCEPTIBLITY POCT urinalysis dipstick manually resulted Follow Up: Patient is to return to office in 1 week for routine OB appointment Documented by Monique Arora LPN on behalf of: MICHELLE Forrest documented in this encounter Plan of Treatment DateTypeDepartmentCare Team (Latest Contact Info)Ghpshkncheo19/12/2025 3:30 PM ESTRoutine NOMStacey COSTA [address] [place] [address] [place] [phone] Wolfgang Hoffman, [address] [facility] [address] [place], [place] [id number] 07/17/2025 3:40 PM ESTPostpartum Visit NOMStacey CSOTA [address] [place] [address] [place] [phone] Wolfgang Hoffman, [address] [place], [place] [id number] NameTypePriorityAssociated DiagnosesOrder ScheduleCULTURE, GROUP B STREP WITH SUSCEPTIBLITYLabRoutine Third trimester ([facility]) Expected: 06/10/2025, Expires: 06/10/2026documented as of this encounter Procedures Procedure NamePriorityDate/TimeAssociated DiagnosisCommentsPOCT URINALYSIS KKKZJPGEIvtnvbr60/03/2025 4:12 PM EST Third trimester ([facility]) documented in this encounter Results * (ABNORMAL) POCT urinalysis dipstick manually resulted (06/10/2025 4:12 PM EST) ComponentValueRef RangeTest MethodAnalysis TimePerformed AtPathologist SignatureColor, UAAmberClarity, UACloudyGlucose, UANegativeNegative - 1999(110) ++++ mg/dLBilirubin, UANegativeNegative - 4(70) +++ mg/dLKetones, UA NegativeNegative - 160(16) ++++ mg/dLSpec Grav, UA1.0201 - 1.03Blood, UA NegativeNegative - 50 Blayne/mcLpH, UA6.05 - 9Protein, UA1+Negative - 1999(20) ++++ mg/dLUrobilinogen, UA1.00.2 - 12 mg/dLLeukocytes, UA2+Negative - 500+++ Jo/mcLNitrite, UANegativeNegative - PositiveSpecimen (Source)Anatomical Location / LateralityCollection Method / VolumeCollection TimeReceived Time Urine06/10/2025 4:12 PM EST Narrative Authorizing ProviderResult TypeResult StatusMiraVista [facility] OF CARE TEST ENTER/EDIT ORDERABLESFinal Result documented in this encounter Visit Diagnoses Diagnosis Third trimester ([facility]) state, incidental 35 weeks gestation of ([facility]) Psychogenic nonepileptic seizure documented in this encounter Care Teams Team MemberRelationshipSpecialtyStart DateEnd Date Jose E Burns MD [address] [place] [address] PCP - GeneralFamily Medicine02/16/23documented as of this encounter
--- OUTSIDE RECORDS SUMMARY | 2025-06-10 19:48 | XMS_ITS | Clinical Summary ---
Author Organization [employer] [facility] tem Address [id number] [address] [place] [address] Care Team Providers Care Building Inspection Engineer Name Role Phone Jose E Burns MD Primary Care Provider [phone] Allergies No known active allergies Medications MedicationSigDispense [...] standard drink = 0.6 oz pure alcohol)ChildcareAnswerDate QpcnzbhlEdxgctkeuOryzfqa50/12/2019EmploymentAnswer Date MwqqbenoJmvdcefjobOusxleb79/12/2019Hunger ScreeningAnswerDate Recorded Within the past 12 months we worried whether our food would run out before we got money to buy more.Never True10/18/2023Food Insecurity - InabilityNot on file 10/18/2023CommentsNoSex and Gender InformationValueDate RecordedSex Assigned at BirthNot on fileLegal NcqGjqjqb65/06/2015 12:01 PM EDTGender IdentityNot on fileSexual OrientationNot on file Last Filed Vital Signs Vital SignReadingTime TakenCommentsBlood Atdqcfxr580/6203 10:03 AM EDT Teqoi360810/18/2023 10:03 AM DHVBxpcuqvkrew54.4 ??C (97.5 ??F)10/03/2023 1:45 PM ESTRespiratory Dgks491510/03/2023 2:29 PM ESTOxygen Dnumbwlwgc293%10/03/2023 2:29 PM ESTInhaled Oxygen Concentration--Bnyksb58.6 kg (133 lb 9.6 oz)10/18/2023 10:03 AM OFWUpwpeo861.3 cm (5' 9 )10/18/2023 10:03 AM EDTBody Mass Index19.73 10/18/2023 10:03 AM EDT Plan of Treatment Health MaintenanceDue DateLast DoneCommentsDepression Reiwzrmox46/16/2015Pap Smear2024dult BMI Gusctmiaj90Tobacco Screening Influenza Etlnkux62/, 06/22/2016, 07/29/2011DTaP,Tdap and Td Vaccines (7 - Td or Tdap)6003/25/2016, 04/23/2009, 02/24/2007, Additional history exists Medical Devices Not on file Insurance Care Teams Team MemberRelationshipSpecialtyStart DateEnd Date Jose E Burns MD PCP - Generalmily Medicine03/25/21
--- OUTSIDE RECORDS SUMMARY | 2025-06-10 19:48 | XMS_ITS | Encounter Summary ---
Author Organization [facility] Address [address] [facility] [place] [address] Care Team Providers Care Certified Hand Therapist Name Role Phone Jose E Burns MD Primary Care Provider [phone] Encounter Details DateTypeDepartmentCare Team (Latest Contact Info)Rxzriwhpcsq04/03/2025Patient Outreach [facility] [address] [place] [phone] Gogo Montiel LPN [address] [place], [place] [phone] Social History Tobacco UseTypesPacks/DayYears UsedDateSmoking Tobacco: Never AssessedPHQ-2 AnswerDate RecordedPatient Health Questionnaire-2 Goanc07308/10/2024 Estimated Date of VpnandvtHqaqesnyFxj26/03/2025Based on Ultrasound, FHR-158Sex and Gender InformationValueDate RecordedSex Assigned at BirthNot on fileLegal AeyZcgjkl81/15/2023 6:34 PM EDTGender IdentityNot on fileSexual OrientationNot on filedocumented as of this encounter Functional Status * Over the past 2 weeks, how often have you been bothered by any of the following problems?QuestionAnswerDate of AssessmentAuthorLittle interest or pleasure in doing thingsNot at all06/10/2025 11:36 AM Gogo Glass LPN Feeling down, depressed, or hopelessNot at all06/10/2025 11:36 AM Gogo Glass LPNPatient Health Questionnaire-2 Xtjei14808/10/2024 11:36 AM Gogo Glass LPN documented as of this encounter Progress Notes * Gogo Montiel LPN - 06/10/2025 11:35 AM EST Monthly Outreach. Call to pt. Pt reports she feels baby moving frequently. Appetite and sleep are adequate although sleep is interrupted. Bowels are regular. Pt denies any depression or difficulty coping at this time. Pt denies any questions, concerns or needs today. Meds reviewed. Next OB OV 06/10/2025 documented in this encounter Plan of Treatment DateTypeDepartmentCare Team (Latest Contact Info)Icxjciildbm28/12/2025 3:30 PM ESTRoutine NOMStacey COSTA [address] [place] [address] [place] [phone] Wolfgang Hoffman, DO [address] [facility] [place] [address] 07/17/2025 3:40 PM ESTPostpartum Visit NOMStacey COSTA [address] [place] [address] [place] [phone] Wolfgang Hoffman, DO [address] [facility] [place] [address] documented as of this encounter Visit Diagnoses Not on filedocumented in this encounter Care Teams Team MemberRelationshipSpecialtyStart DateEnd Date Jose E Burns MD [address] [facility] [place] [address] PCP - GeneralFamily Medicine02/16/23documented as of this encounter
--- OUTSIDE RECORDS SUMMARY | 2025-06-10 19:49 | XMS_ITS | Encounter Summary ---
Author Organization [facility] Address [address] [facility] [place] [address] Care Team Providers Care Csr Retail Name Role Phone Jose E Burns MD Primary Care Provider [phone] Encounter Details DateTypeDepartmentCare Team (Latest Contact Info)Zydonfvcymu72/20/2025Bamboo flowsheet NOMS Maddie COSTA [address] [place] [address] Wolfgang Hoffman DO [address] [facility] [place] [address] Social History Tobacco UseTypesPacks/DayYears UsedDateSmoking Tobacco: Never AssessedPHQ-2 AnswerDate RecordedPatient Health Questionnaire-2 Rhztt585 Estimated Date of YdqryvtnDgrrducqKpk62/03/2025Based on Ultrasound, FHR-158Sex and Gender InformationValueDate RecordedSex Assigned at BirthNot on fileLegal IkbZexpkl21/15/2023 6:34 PM EDTGender IdentityNot on fileSexual OrientationNot on filedocumented as of this encounter Plan of Treatment DateTypeDepartmentCare Team (Latest Contact Info)Jlrgitmxslb81/12/2025 3:30 PM ESTRoutine NOMS Maddie COSTA [address] [place] [address] Wolfgang Hoffman, DO [address] [facility] [place] [address] 07/17/2025 3:40 PM ESTPostpartum Visit [facility] Maddie COSTA [address] [place] [phone] Wolfgang Hoffman, DO [address] [facility] [address] [place], [place] [phone] documented as of this encounter Visit Diagnoses Not on filedocumented in this encounter Care Teams Team MemberRelationshipSpecialtyStart DateEnd Date Jose E Burns MD [address] [facility] [place] [phone] PCP - GeneralFamily Medicine02/16/23documented as of this encounter
--- OUTSIDE RECORDS SUMMARY | 2025-06-10 19:49 | XMS_ITS | Clinical Summary ---
Author Organization [facility] Address [address], [address] [place] [address] Care Team Providers Care Noc Technician Name Role Phone Unavailable Primary Care Provider Unavailabl e Allergies No known active allergies Medications MedicationSigDispense QuantityRefillsLast FilledStart DateEnd DateStatus LAMICTAL 100 MG tablet Take 1 tablet by mouth 2 times daily3Active albuterol sulfate HFA (VENTOLIN HFA) 108 (90 Base) MCG/ACT inhaler Inhale 2 puffs into the lungs every 6 hours as needed for WheezingActive pantoprazole (PROTONIX) 40 MG tablet Take 1 tablet by mouth Daily with supperActive desvenlafaxine succinate (PRISTIQ) 50 MG TB24 extended release tablet Take 1 tablet by mouth dailyActive hyoscyamine (LEVSIN/SL) [address] 1 tablet under the tongue every 6 hours as needed for CrampingActive Active Problems ProblemNoted DateDiagnosed DatePsychiatric hswcxll0008/30/2023Seizure-like xlpaqghv50/23/2024 Social History Tobacco UseTypesPacks/DayYears UsedDateSmoking Tobacco: NeverSmokeless Tobacco: Never Tobacco Cessation:Counseling Given: Not Answered Alcohol UseStandard Drinks/WeekCommentsNever0 (1 standard drink = 0.6 oz pure alcohol)[facility] UtilitiesAnswerDate RecordedIn the past 12 months has the [employer], gas, oil, or water [employer] threatened to shut off services in your home?No 08/30/2023Hunger Vital SignAnswerDate RecordedWithin the past 12 months, you worried that your food would run out before you got the money to buymore.Never true08/30/2023Within the past 12 months, the food you bought just didn't last and you didn't have money to get more.Never true08/30/2023RAPARE - TransportationAnswerDate RecordedIn the past 12 months, has lack of transportation kept you from medical appointments or from getting medications? Patient /23/2024In the past 12 months, has lack of transportation kept you from meetings, work, or from getting things needed for daily living?Patient szkwqymo00/23/2024Housing Stability Vital SignAnswerDate RecordedIn the last 12 months, was there a time when you were not able to pay the mortgage or rent on time?No08/30/2023In the last 12 months, how many places have you lived?1 08/30/2023In the last 12 months, was there a time when you did not have a steady place to sleep or slept in ashelter (including now)?No08/30/2023Interpersonal Safety ([facility] HRSN)AnswerDate RecordedHow often does anyone, including family and friends, physically hurt you?Patient voaqbgnq49/23/2024How often does anyone, including family and friends, scream or curse at you?Not on file08/30/2023How often does anyone, including family and friends, insult or talk down to you?Not on file08/30/2023How often does anyone, including family and friends, threaten you with harm?Not on file08/30/2023Food InsecurityAnswerDate RecordedWithin the past 12 months, you worried that your food would run out before you got the money to buymore.Within the past 12 months, the food you bought just didn't last and you didn't have money to get more.Interpersonal Safety Domain Source: IP Abuse ScreeningAnswerDate RecordedHow often does anyone, including family and friends, physically hurt you?Patient declined 08/30/2023How often does anyone, including family and friends, scream or curse at you?Not on file08/30/2023How often does anyone, including family and friends, insult or talk down to you?Not on file08/30/2023How often does anyone, including family and friends, threaten you with harm?Not on file08/30/2023ead-Only, Retired: Physical UhzdyWklxqz37/23/2024ead-Only, Retired: Verbal AbuseDenies 08/30/2023ead-Only, Retired: Emotional vsiocGslctx46/23/2024ead-Only, Retired: Financial SwuloWfjewt13/23/2024ead-Only, Retired: Sexual ppwcdKftdeg07/23/2024 CommentsUnknownSex and Gender InformationValueDate RecordedSex Assigned at BirthNot on fileLegal IuhVyqrfo59/16/2019 9:09 AM EDTGender IdentityNot on fileSexual OrientationNot on file Last Filed Vital Signs Vital SignReadingTime TakenCommentsBlood Ufsngjxo422/7408/31/2023 3:44 PM EST Bwmph558808/31/2023 3:44 PM VJECsgjuqolepj84.8 ??C (98.3 ??F)08/31/2023 3:44 PM ESTRespiratory Lyhi502508/31/2023 3:44 PM ESTOxygen Bbiyrxuymh40%08/31/2023 3:44 PM ESTInhaled Oxygen Concentration--Hlolzb90.5 kg (131 lb 2.8 oz)08/30/2023 12:35 PM FTNAsusxq705.3 cm (5' 9 )08/30/2023 12:35 PM ESTBody Mass Index19.37 08/30/2023 12:35 PM EST Plan of Treatment Health MaintenanceDue DateLast DoneCommentsDepression Wccvsi2205/23/2015HIV screen 2018Chlamydia/GC ezbiau5805/23/2019Hepatitis C fasdjw231Pap smear 2024Flu vaccine (#1)1COVID-19 Vaccine (1 - season)2025DTaP/Tdap/Td vaccine (7 - Td or Tdap)/, 04/23/2009, 02/24/2007, Additional history existsHepatitis B vaccineCompleted 08/24/2006, 05/11/2004, 04/09/2004, Additional history existsHib vaccine Ctobuwsfz89/20/2007, 08/24/2006, 05/11/2004, Additional history exists Pneumococcal 0-49 years VaccineAged Out02/24/2007, 08/24/2006, 05/11/2004, Additional history existsNo longer eligible based on patient's age to complete this topicHepatitis A fznqkyuJxgetnozr75/16/2009, 02/24/2007 Measles,Mumps,Rubella (MMR) jbwhejgUqdjqgzvuytw12/16/2009, 08/24/2006Polio kgnhzznCjtocvwnp50/16/2009, 08/24/2006, 05/11/2004, Additional history exists Varicella xejwsdpAzwmxjyxx56/16/2009, 08/24/2006HPV wsuydiwPrfmoealt35/15/2017, 06/22/2016, 03/25/2016Meningococcal (ACWY) aoeixzaMjlnnmfaq94/27/2021, 03/25/2016Meningococcal B ryurixyLvvoezjfa16/16/2021, 05/04/2021 Insurance * Guarantor: Julian OCASIO TypeRelation to PatientDate of BirthPhone Billing AddressPersonal/FamilyMother [address] [place] [id number] Advance Directives * Full Code (Latest Code Status on File) Date ActivatedDate InactivatedComments08/30/2023 12:38 PM08/31/2023 7:34 PM
--- OUTSIDE RECORDS SUMMARY | 2025-06-10 19:49 | XMS_ITS | Clinical Summary ---
Author Organization [facility] Address [address] [place] [address] Care Team Providers Care Land Agent Name Role Phone Jose E Burns MD Primary Care Provider [phone] Allergies No known active allergies Medications MedicationSigDispense [...] 508/506Active Active Problems ProblemNoted DateDiagnosed DateThird trimester ([facility])12/27/2022 Psychogenic nonepileptic ldltict2911/29/20204271Emmnjutop01/23/2021eterioration in school virehybtlro88/16/2015Nocturnal pssdgawa22/07/2013DHD (attention deficit hyperactivity disorder)01/11/2012Estimated Date of DeliveryCommentsYes 5Based on Ultrasound, FHR-158 Encounters DateTypeDepartmentCare LgfoZhwfhcvswvq48/03/2025 3:50 PM ESTRoutine [facility] [address] [place] [address] Gogo Pang PA Third trimester ([facility]); 35 weeks gestation of ([facility]); Psychogenic nonepileptic sqmpxke5606/10/2025Patient Outreach [facility] [address] [place] [address] Gogo Montiel LPN 05/27/2025 3:50 PM EDTRoutine [facility] [address] [place] [address] Wolfgang Hoffman, size inconsistent with dates ([facility]) (Primary Dx); 33 weeks gestation of ([facility]); Third trimester ([facility]); Psychogenic nonepileptic ihmmobl0205/27/2025amboo flowsheet [facility] [address] [place] [address] Wolfgang Hoffman, 05/20/2025bstract [facility] [address] [place] [address] Wolfgang Hoffman, DO 05/20/2025Telephone [facility] [address] [place] [address] Ela Calvillo NP 05/13/2025 3:50 PM EDTRoutine [facility] [address] [place] [address] Ela Calvillo, [place] 31 weeks gestation of ([facility]); Third trimester ([facility])05/13/2025Patient Outreach [facility] [address] [place] [address] Gogo Montiel LPN 05/10/2025Patient Outreach [facility] [address] [place] [address] Gogo Montiel LPN 05/03/2025Telephone [facility] [address] [place] [address] Ela Calvillo NP 04/30/2025linisync Result Encounter [facility] External Department Unsolicited Wolfgang Hoffman, 04/29/2025 3:20 PM EDTRoutine [facility] Ismael [facility] [place] [address] Wolfgang Hoffman, Third trimester ([facility]); 29 weeks gestation of ([facility]); Psychogenic nonepileptic seizure ; Diabetes mellitus oemtbkawp22/22/2025amboo flowsheet [facility] [place] [address] Wolfgang Hoffman, 04/22/20252599Qoixww78/10/2025 3:20 PM EDTRoutine [facility] [address] [place] [address] Ela Calvillo, [place] Third trimester ([facility]); 28 weeks gestation of ([facility])04/17/2025amboo flowsheet [facility] [address] [place] [address] [place] [address] Ela Calvillo NP 04/15/2025Patient Outreach [facility] [place] [address] [place] [address] Gogo Montiel LPN 04/03/2025 3:40 PM EDTRoutine [facility] [place] [place] [address] Wolfgang Hoffman DO Anxiety, generalized (Primary Dx); Second trimester ([facility]); 26 weeks gestation of ([facility]); History of psychogenic nonepileptic djrqeol5004/03/2025amboo flowsheet [facility] [address] [place] [address] Wolfgang Hoffman DO 03/22/2025Telephone [facility] [address] [place] [address] Mildred Mason LPN 03/20/2025 3:40 PM EDTRoutine [facility] [address] [place] [address] Gogo Pang PA Second trimester ([facility]); 24 weeks gestation of ([facility]); Diabetes mellitus screening; Yeast infection; BV (bacterial vaginosis); Urinary tract infection without hematuria, site vuwciezhqsy81/13/2025amboo flowsheet [facility] [address] [place] [address] Gogo Pang PA 03/18/2025Patient Outreach [facility] [address] [place] [address] Gogo Montiel, RAE[place] from Last 3 Months Social History Tobacco UseTypesPacks/DayYears UsedDateSmoking Tobacco: Never AssessedPHQ-2 AnswerDate RecordedPatient Health Questionnaire-2 Kuujf27608/10/2024 Estimated Date of CxgayzbqYaugmgqmNao03/03/2025ased on Ultrasound, FHR-158Sex and Gender InformationValueDate RecordedSex Assigned at BirthNot on fileLegal StvQdzzcy89/15/2023 6:34 PM EDTGender IdentityNot on fileSexual OrientationNot on file Last Filed Vital Signs Vital SignReadingTime TakenCommentsBlood Sgcogwtx589/80108/10/2024 4:03 PM EST Pulse--Temperature--Respiratory Rate--Oxygen Saturation--Inhaled Oxygen Concentration--Mfewzy35.8 kg (165 lb)06/10/2025 4:03 PM WFFIvudkx387.6 cm (5' 6 )12/21/2022 12:00 PM EDTBody Mass Index26.63012/21/2022 12:00 PM EDT Plan of Treatment DateTypeDepartmentCare Team (Latest Contact Info)Pyyaixtopka09/12/2025 3:30 PM ESTRoutine [facility] [address] [place] [address] Wolfgang Hoffman, DO [address] [place] [address] 07/17/2025 3:40 PM ESTPostpartum Visit [facility] [address] [place] [address] Wolfgang Hoffman, DO [address] [place] [address] Health MaintenanceDue DateLast DoneCommentsPneumococcal Vaccine: Pediatrics (0 to 5 Years) and At-Risk Patients (6 to 64 Years) (1 of 2 - PCV)2022OVID- 19 Vaccine ( - season)2025Influenza Vaccine (#1)2025 06/23/2021, 06/22/2016, 07/29/2011 Procedures Procedure NamePriorityDate/TimeAssociated DiagnosisCommentsPOCT URINALYSIS VTWQOYCIHuoyoql24/03/2025 4:12 PM EST Third trimester ([facility]) POCT URINALYSIS MPTJKKJDGupdhxi78/20/2025 4:20 PM EDT 33 weeks gestation of ([facility]) Third trimester ([facility]) Psychogenic nonepileptic seizure POCT URINALYSIS DGOWBSCQBmobhct45/06/2025 3:59 PM EDT 31 weeks gestation of ([facility]) MLR HEMOGLOBIN V9WViekuqh69/23/2025 2:43 PM EDT ALL CBC WITH AUTO XDDXUmknpnb2025 2:43 PM EDT POCT URINALYSIS LCJMAUKUUxzrqds34/22/2025 3:42 PM EDT Third trimester ([facility]) POCT URINALYSIS DIXDTTCMYbhgspw77/10/2025 3:32 PM EDT Third trimester ([facility]) RECURRENT VAGINITIS (HTRX)Zmrbjms8103/20/2025 4:45 PM EDT URINARY TRACT INFECTION (HTRX)Cobdvse9903/20/2025 4:28 PM EDT POCT URINALYSIS IUMAGBHHGlkmfhd79/13/2025 4:13 PM EDT Second trimester ([facility]) from Last 3 Months Results * (ABNORMAL) POCT urinalysis dipstick manually resulted (06/10/2025 4:12 PM EST) Only the most recent of6 resultswithin the time period is included. ComponentValueRef RangeTest MethodAnalysis TimePerformed AtPathologist Signature Color, UAAmberClarity, UACloudyGlucose, UANegativeNegative - 2000(110) ++++ mg/dLBilirubin, UANegativeNegative - 4(70) +++ mg/dLKetones, UANegativeNegative - 160(16) ++++ mg/dLSpec Grav, UA1.0201 - 1.03Blood, UANegativeNegative - 50 Blayne/mcLpH, UA6.05 - 9Protein, UA1+Negative - 2000(20) ++++ mg/dLUrobilinogen, UA 1.00.2 - 12 mg/dLLeukocytes, UA2+Negative - 500+++ Jo/mcLNitrite, UANegative Negative - PositiveSpecimen (Source)Anatomical Location / LateralityCollection Method / VolumeCollection TimeReceived YxglBrqiz72/03/2025 4:12 PM EST Narrative Authorizing ProviderResult TypeResult StatusSaints [facility] TEST ENTER/EDIT ORDERABLESFinal Result * (ABNORMAL) MLR HEMOGLOBIN A1C (04/30/2025 2:43 PM EDT)ComponentValueRef Range Test MethodAnalysis TimePerformed AtPathologist SignatureGLYCOHEMOGLOBIN A1C 4.3(L)4.5 - 6.2 %TBHComment: ADA RECOMMENDED LIMIT 4.0 - 6.0 ADA THERAPEUTIC TARGET < 7.0 ACTION SUGGESTED > 7.0 ESTIMATED AVERAGE AFNYQFB45en/dLTBHSpecimen (Source)Anatomical Location / LateralityCollection Method / VolumeCollection TimeReceived Time04/30/2025 2:43 PM EDT04/30/2025 2:44 PM EDT Narrative CLINISYNC - 04/30/2025 3:46 PM EDT Authorizing ProviderResult TypeResult StatusKristina Rajinder NPCLINISYNCFinal ResultPerforming OrganizationAddressCity/State/ZIP CodePhone Number [facility] * (ABNORMAL) ALL CBC WITH AUTO DIFF (04/30/2025 2:43 PM EDT)ComponentValueRef RangeTest MethodAnalysis TimePerformed AtPathologist SignatureTBH WBC9.74.0 - 11.0 10 3/uLTBHTBH RBC3.94(L)4.20 - 5.40 10 6/uLTBHTBH HGB12.612.0 - 16.0 g/dL TBHTBH HCT34.5(L)36.0 - 48.0 %TBHTBH MCV87.681.0 - 99.0 fLTBHTBH MCH32.026.7 - 34.0 pgTBHTBH MCHC36.5(H)29.9 - 35.2 g/dLTBHTBH RDW11.911.0 - 15.0 %TBHTBH PLT 468625 - 450 10 3/uLTBHTBH MPV11.39.5 - 13.5 [...] Yasmin DOCLINISYNCFinal Result Performing OrganizationAddressCity/State/ZIP CodePhone Number [facility] * (ABNORMAL) RECURRENT VAGINITIS (HTRX) (03/20/2025 4:45 PM EDT)ComponentValue Ref RangeTest MethodAnalysis TimePerformed AtPathologist SignatureATOPOBIUM QOVIRHU923.961 - 24.689 ppm03/22/2025 7:27 AM EDTHealth[facility] ATOPOBIUM VAGINAENot Fpyiwqiy81.961 - 24.689 ppm03/22/2025 7:27 AM EDT [facility] (BACTERIAL VAGINOSIS ASSOCIATED BACTERIA 2, 3); MOBILUNCUS SPP25.723(A)19.961 - 24.689 ppm03/22/2025 7:27 AM EDT [facility]BVAB 2,3 (BACTERIAL VAGINOSIS ASSOCIATED BACTERIA 2, 3); MOBILUNCUS SPPDetected(A)19.961 - 24.689 ppm03/22/2025 7:27 AM EDT [facility]PortCANDIDA ALBICANS, PARAPSILOSIS, OPPDASIECQ972.000 - 30.347 ppm03/22/2025 7:27 AM EDTHealthTrackRx at LabPortCANDIDA ALBICANS, PARAPSILOSIS, TROPICALISNot Icnofcmw32.000 - 30.347 ppm03/22/2025 7:27 AM EDT [facility]IDA SBBUVPLC931.000 - 31.618 ppm03/22/2025 7:27 AM EDTHealthTrackRx at [facility]PortCANDIDA GLABRATANot Xfsvhpkj67.000 - 31.618 ppm 03/22/2025 7:27 AM EDTHealthTrackRx at [facility]PortCANDIDA DMINNE250.000 - 30.873 ppm03/22/2025 7:27 AM EDTHealthTrackRx at [facility]PortCANDIDA KRUSEINot Detected 23.000 - 30.873 ppm03/22/2025 7:27 AM EDTHealthTrackRx at [facility] HospitalCHLAMYDIA RSYZJQIIPPH192.000 - 31.586 ppm03/22/2025 7:27 AM EDTHealthTrack[facility] at [facility] CHLAMYDIA TRACHOMATISNot Giujipsa96.000 - 31.586 ppm03/22/2025 7:27 AM EDT [facility] HospitalGARDNERELLA IKQCOTCGU16.041(A)19.961 - 24.689 ppm 03/22/2025 7:27 AM EDTHealthTrackRx at [facility] HospitalGARDNERELLA VAGINALISDetected(A) 19.961 - 24.689 ppm03/22/2025 7:27 AM EDTHealthTrackRx at LabPortMEGASPHAERA (TYPES 1, 2)019.961 - 24.689 ppm03/22/2025 7:27 AM EDT[facility] MEGASPHAERA (TYPES 1, 2)Not Csxmqjse92.961 - 24.689 ppm03/22/2025 7:27 AM EDT [facility] LabPortNEISSERIA WCCNACYZOOR019.000 - 32.587 ppm03/22/2025 7:27 AM EDTHealthTrackRx at LabPortNEISSERIA GONORRHOEAENot Jkxxxqcg68.000 - 32.587 ppm03/22/2025 7:27 AM EDTHealthTrackRx at LabPortTRICHOMONAS VAGINALIS0 23.000 - 31.995 ppm03/22/2025 7:27 AM EDTHealthTrackRx at [facility] HospitalTRICHOMONAS VAGINALISNot Jvoboxrk64.000 - 31.995 ppm03/22/2025 7:27 AM EDTHealthTrackRx at [facility] HospitalMYCOPLASMA KYFIBIXVVQ242.961 - 24.689 ppm03/22/2025 7:27 AM EDT [facility] HospitalMYCOPLASMA GENITALIUMNot Uylgtcku10.961 - 24.689 ppm 03/22/2025 7:[address] [facility], C; MEFA24.079(A)23.000 - 27.500 ppm03/22/2025 7:[address] [facility], C; MEFADetected (A)23.000 - 27.500 ppm03/22/2025 7:27 AM EDTHealthTrackRx at [facility] HospitalTET B, TET M23.681(A)23.000 - 27.500 ppm03/22/2025 7:27 AM EDTHealthTrackRx at [facility] HospitalTET B, TET MDetected(A)23.000 - 27.500 ppm03/22/2025 7:27 AM EDTHealthTrackRx at [facility] HospitalSpecimen (Source)Anatomical Location / LateralityCollection Method / VolumeCollection TimeReceived OccqVznhda63/13/2025 4:45 PM EDT03/22/2025 2:18 AM EDT Narrative Authorizing ProviderResult TypeResult StatusEla Calvillo LAB BLOOD ORDERABLESFinal ResultPerforming OrganizationAddressCity/State/ZIP CodePhone Number [facility] [place] [phone] [address] * URINARY TRACT INFECTION (HTRX) (03/20/2025 4:28 PM EDT)ComponentValueRef Range Test MethodAnalysis TimePerformed AtPathologist SignatureACINETOBACTER WQMUZRHD540.961 - 24.689 ppm03/22/2025 9:02 AM EDTHealthTrackRx at [facility] ACINETOBACTER BAUMANIINot Ovcufpds50.961 - 24.689 ppm03/22/2025 9:02 AM EDT [facility] LabPortCITROBACTER NABHKBYH370.000 - 32.015 ppm03/22/2025 9:02 AM EDTHealthTrackRx at LabPortCITROBACTER FREUNDIINot Xambifxf34.000 - 32.015 ppm03/22/2025 9:02 AM EDTHealthTrackRx at LabPortENTEROBACTER AEROGENES, BWOKZMY754.000 - 32.290 ppm03/22/2025 9:02 AM EDTHealthTrackRx at LabPortENTEROBACTER AEROGENES, CLOACAENot Xeocyqgl76.000 - 32.290 ppm 03/22/2025 9:02 AM EDTHealthTrackRx at LabPortENTEROCOCCUS FAECALIS, FAECIUM0 26.000 - 33.043 ppm03/22/2025 9:02 AM EDTHealthTrackRx at LabPortENTEROCOCCUS FAECALIS, FAECIUMNot Atyffvnh42.000 - 33.043 ppm03/22/2025 9:02 AM EDT [facility] LabPortESCHERICHIA OUJN925.000 - 28.500 ppm03/22/2025 9:02 AM EDTHealthTrackRx at LabPortESCHERICHIA COLINot Ydhukvhd78.000 - 28.500 ppm 03/22/2025 9:02 AM EDTHealthTrackRx at LabPortKLEBSIELLA PNEUMONIAE, OXYTOCA0 23.000 - 31.865 ppm03/22/2025 9:02 AM EDTHealthTrackRx at LabPortKLEBSIELLA PNEUMONIAE, OXYTOCANot Xbmjfios42.000 - 31.865 ppm03/22/2025 9:02 AM EDT [facility] LabPortMORGANELLA FRZDHXBH770.961 - 24.689 ppm03/22/2025 9:02 AM EDTHealthTrackRx at LabPortMORGANELLA MORGANIINot Bxerdojy91.961 - 24.689 ppm03/22/2025 9:02 AM EDTHealthTrackRx at LabPortPROTEUS MIRABILIS, VULGARIS0 23.000 - 28.500 ppm03/22/2025 9:02 AM EDTHealthTrackRx at LabPortPROTEUS MIRABILIS, VULGARISNot Ctkuuflg95.000 - 28.500 ppm03/22/2025 9:02 AM EDT [facility] LabPortPSEUDOMONAS ZBXBSQCFGV975.000 - 31.801 ppm03/22/2025 9:02 AM EDTHealthTrackRx at LabPortPSEUDOMONAS AERUGINOSANot Ojejxzys28.000 - 31.801 ppm03/22/2025 9:02 AM EDTHealthTrackRx at LabPortSTAPHYLOCOCCUS AUREUS0 26.000 - 31.595 ppm03/22/2025 9:02 AM EDTHealthTrackRx at [facility] STAPHYLOCOCCUS AUREUSNot Wxspksdi66.000 - 31.595 ppm03/22/2025 9:02 AM EDT [facility] LabPortSTREPTOCOCCUS AGALACTIAE (GROUP B STREP)026.000 - 32.435 ppm03/22/2025 9:02 AM EDTHealthTrackRx at LabPortSTREPTOCOCCUS AGALACTIAE (GROUP B STREP)Not Yvgxxxcw97.000 - 32.435 ppm03/22/2025 9:02 AM EDTHealthTrackRx at LabPortCANDIDA ALBICANS, PARAPSILOSIS, FDIWLUPGDO277.000 - 30.347 ppm03/22/2025 9:02 AM EDTHealth[facility] at LabPortCANDIDA ALBICANS, PARAPSILOSIS, TROPICALISNot Ojftagfd88.000 - 30.347 ppm03/22/2025 9:02 AM EDT [facility]PortCANDIDA NTYJBNSK564.000 - 31.618 ppm03/22/2025 9:02 AM EDTHealthTrackRx at LabPortCANDIDA GLABRATANot Emmidvkx83.000 - 31.618 ppm 03/22/2025 9:02 AM EDTHealthTrackRx at LabPortCANDIDA ALJXKK892.000 - 30.873 ppm03/22/2025 9:02 AM EDTHealthTrackRx at LabPortCANDIDA KRUSEINot Detected 23.000 - 30.873 ppm03/22/2025 9:02 AM EDTHealthTrackRx at LabPortSERRATIA QAEGJXXTTJ951.000 - 31.581 ppm03/22/2025 9:02 AM EDT[facility] at [facility] SERRATIA MARCESCENSNot Racpnyav87.000 - 31.581 ppm03/22/2025 9:02 AM EDT [facility] HospitalSTREPTOCOCCUS PYOGENES (GROUP A STREP)019.961 - 24.689 ppm03/22/2025 9:02 AM EDTHealthTrackRx at [facility] HospitalSTREPTOCOCCUS PYOGENES (GROUP A STREP)Not Osimslcv65.961 - 24.689 ppm03/22/2025 9:02 AM EDTHealth[facility] at [facility] HospitalSTAPHYLOCOCCUS EPIDERMIDIS, HAEMOLYTICUS, LUGDUNENSIS, SAPROPHYTICUS (CGPFY306.961 - 24.689 ppm03/22/2025 9:02 AM EDT[facility] at [facility] STAPHYLOCOCCUS EPIDERMIDIS, HAEMOLYTICUS, LUGDUNENSIS, SAPROPHYTICUS (URINANot Pmwtlyzz33.961 - 24.689 ppm03/22/2025 9:02 AM EDTHealth[facility] at [facility] STAPHYLOCOCCUS EPIDERMIDIS, HAEMOLYTICUS, LUGDUNENSIS, SAPROPHYTICUS (URINA0 19.961 - 24.689 ppm03/22/2025 9:02 AM EDT[facility] at [facility] STAPHYLOCOCCUS EPIDERMIDIS, HAEMOLYTICUS, LUGDUNENSIS, SAPROPHYTICUS (URINANot Liaorlau64.961 - 24.689 ppm03/22/2025 9:02 AM EDTHealth[facility] Specimen (Source)Anatomical Location / LateralityCollection Method / Volume Collection TimeReceived QzezRikeg72/13/2025 4:28 PM EDT03/22/2025 2:18 AM EDT Narrative Authorizing ProviderResult TypeResult StatusEla Calvillo LAB BLOOD ORDERABLESFinal ResultPerforming OrganizationAddressCity/State/ZIP CodePhone Number [facility] [address] [address] from Last 3 Months Insurance Care Teams Team MemberRelationshipSpecialtyStart DateEnd Jose E Burns MD [address] [facility] [place] [id number] PCP - GeneralFamily Medicine02/16/23
--- OUTSIDE RECORDS SUMMARY | 2025-06-10 19:49 | XMS_ITS | Patient Health Record ---
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 keep the drainage moist. Lhqi-xaw-uaycpcy Nasal Saline may help the stuffy and runny nose. Use Ibuprofen and or Tylenol as needed for fever, chills, body aches or pain. Children 5 years old should not be given xdyd-xbb-fdqwjdf cough and cold medications such as guaifenesin and dextromethorphan. If you're over age 5, you may try svyk-vgf-ignqcxa cold medications such as guaifenesin and dextromethorphan, [...] 06/23/2023 XR ABD FLAT UP_PA [place] 06/02/2023 Hgb Fractionation [place] 06/03/2025 Insurance Providers Payer Name Payer Address Payer Phone Subscriber Number Group Number Insured Name Patient Relationship to Insured Coverage Start Date Coverage End Date [employer] [place] [employer] [address] [place] [address] [id number] Anjana PiperGiselelf - patient is the [id number] 2024 Medical (General) History Medical History History [...]
--- OUTSIDE RECORDS SUMMARY | 2025-06-10 19:50 | XMS_ITS | CCD ---
Author Organization [facility] Care Team Providers Care Drill Operator Automatic Name Role Phone YASMIN ., DR ALLEN [...] Unavailable YASMIN ., DR ALLEN Attending Unavailable DARBY, DR YO [employer] Unavailable YASMIN ., [...] AVILA Unavailable Rashard Montez Primary Care Physician [phone] Rashard Montez Referring Unavailable Alicja LINARES Attending Unavailable Ozzie Montezlas Referring Unavailable Alicja LINARES Attending Unavailable ELISA JACKSONL Admitting Unavailable BETITO JACKSON Attending Unavailable JHOAN TNEORIO Referring Unavailab le HOY, RASHARD M Referring [...] of OnsetReaction(s) Facility (1 source)amanda allergenic extractDrug [id number] [facility] Repository (1 source)Unable to obtain; Translations: [Unable to obtain]Propensity to adverse reactions (disorder)[facility] Repository (1 source)No Known Medication Allergies; Translations: [No Known Medication Allergies]Propensity to adverse reactions (disorder)[facility] Repository Medications Current Medications MedicationDrug Class(es)DatesSig (Normalized)Sig (Original)acetaminophen 500 mg oral tablet (2 sources)Start: 90-27-4347qtce 2 tablets by mouth every six hoursacetaminophen (TYLENOL EXTRA STRENGTH) 500 mg tablet Take 2 tablets (1,000 mg total) by mouth every6 (six) hours. 30 tablet 0 10/03/2023 [id number] 200 actuat albuterol 0.09 mg/actuat metered dose inhaler (13 sources)beta2-Adrenergic Agonist End: 95-41-9025igdoliltv HFA 90 mcg/act inhaler Inhale 2 puffs 12/06/2024 Discontinuedalbuterol (PROVENTIL HFA;VENTOLIN HFA) 90 mcg/actuation inhaler Inhale 2 puffs. 0 Activecephalexin 50 mg/ml oral suspension (2 sources)Cephalosporin AntibacterialStart: 03-20-2025 End: 84-70-3016dtao 10 mL by mouth every six hourscephalexin (Keflex) 250 MG/5ML suspension Indications: Urinary tract infection without hematuria, site unspecified Take 10 mL (500 mg) by mouth every 6 (six) hours for 10 days 400 mL 03/20/2025 03/30/2025 Activecitalopram 20 mg oral tablet (20 sources)Serotonin Reuptake InhibitorStart: 04-03-2025 End: 42-35-3909pawk 1 tablet by mouth once dailycitalopram (CeleXA) 20 MG tablet Indications: Anxiety, generalized Take 1 tablet (20 mg) by mouth Daily 30 tablet 5 04/03/2025 09/30/2025 Active End: 46-74-1542dmhf 1 tablet by mouth in the morningcitalopram (CeleXA) 10 MG tablet Take 10 mg by mouth in the morning. 12/06/2024 Discontinueddesmopressin acetate 0.2 mg oral tablet (9 sources)Vasopressin Analog, Factor VIII Activator End: 07-95-0369xmdveqtydfxn (DDAVP) 0.2 MG tablet 2 qam and 1 prn 12/06/2024 Discontinueddesogestrel 0.15 mg / ethinyl estradiol 0.03 mg oral tablet (9 sources)Progestin, EstrogenStart: 06-19-2024 End: 98-91-1478sjci 1 tablet by mouth once daily, then take 1 tablet by mouth once dailydesogestrel-ethinyl estradiol (Apri) 0.15-30 MG-MCG tablet Indications: Encounter for BCP ( control pills) initial prescription Take 1 tablet by mouth Daily Take 1 tablet by mouth daily 84 tablet 3 06/19/2024 12/06/2024 Wtcqlzdwnqsv14 hr desvenlafaxine succinate 50 mg extended release oral tablet (10 sources)Serotonin and Norepinephrine Reuptake InhibitorStart: 06-22-2023 End: 60-10-5147rpdp 1 tablet by mouth once dailyPristiq 50 mg Tab-ER 50 mg = 1 tab(s), Oral, Daily, Refills(s) 0 Start Date: 06/22/23 Status: OrderedFLUoxetine 10 mg oral capsule (7 sources)Serotonin Reuptake InhibitorStart: 09-39-2375txbi 1 capsule by mouth once dailyFLUoxetine (PROzac) 10 mg capsule TAKE 1 CAPSULE BY ORAL ROUTE PER DAILY TAKE 30 MG (20 MG + 10 MG)DAILY 0 11/06/2020 Activehyoscyamine sulfate 0.125 mg oral tablet (10 sources)Start: 07-05-2023 End: 86-03-6661tassegogybi (Levsin) 0.125 MG tablet Take 0.125 mg by mouth 07/05/2023 12/06/2024 Discontinuedibuprofen 600 mg oral tablet (2 sources)Nonsteroidal Anti-inflammatory DrugStart: 49-57-5303ixrr 1 tablet by mouth every six hoursibuprofen (MOTRIN) 600 mg tablet Take 1 tablet (600 mg total) by mouth every 6 (six) hours. 30 tablet 0 10/03/2023 ActivelamoTRIgine 100 mg oral tablet (14 sources)Mood Stabilizer, Anti-epileptic AgentStart: 05-16-2023 End: 56-98-7993ntru 1 tablet by mouth in the morninglamoTRIgine (LaMICtal) 100 MG tablet Take 1 tablet by mouth in the morning and 1 tablet before bedtime. 05/16/2023 12/06/2024 DiscontinuedmedroxyPROGESTERone acetate 10 mg oral tablet (20 sources)ProgestinStart: 09-25-2024 End: 51-29-3119qdka 1 tablet by mouth once dailymedroxyPROGESTERone (Provera) 10 MG tablet Indications: PCOS (polycystic ovarian syndrome) Take 1 tablet (10 mg) by mouth Daily for 14 days 14 tablet 09/25/2024 12/06/2024 DiscontinuedStart: 12-30-2023 End: 06-29-1813yivqortDSPDKJMEWevj (Depo-Provera) 150 MG/ML suspension prefilled syringe injection syringe Indications: Encounter for initial prescription of injectable contraceptive INJECT 1 ML (150 MG) INTO THE SHOULDER, THIGH, OR BUTTOCKS EVERY 3 (THREE) MONTHS. 1 mL 3 12/30/2023 12/06/2024 DiscontinuedStart: 09-30-2023 End: 71-61-1523ujurbeiMTHHHDNGNaiq (Depo-Provera) injection 150 mg medroxyPROGESTERone (DEPO-PROVERA) 150 mg/mL injection Inject 1 mL (150 mg total) into the appropriate muscle every 3 (three) months. 0 ActivemetroNIDAZOLE 0.0075 mg/mg vaginal gel (17 sources)Nitroimidazole AntimicrobialStart: 79-29-9014nzcazOMQSEBFE (Metrogel) 0.75 % vaginal gel Indications: Bacterial vaginosis Patient to use vaginally nightly for 5 nights, then twice weekly thereafter for 4 months. 140 g 3 03/25/2025 Activeondansetron 4 mg disintegrating oral tablet (19 sources)Serotonin-3 Receptor AntagonistStart: 01-18-2025 End: 49-76-2306shne 1 tablet by mouth every six hours for nauseaondansetron ODT (Zofran-ODT) 4 MG disintegrating tablet Indications: Nausea and vomiting in ([facility]) Take 1 tablet (4 mg) by mouth every 6 (six) hours if needed for nausea or vomiting 30 tablet 2 01/18/2025 02/17/2025 ActiveStart: 06-01-2023 End: 28-31-4420usrwgqkqgys ODT (Zofran-ODT) [address] ONE TABLET ON THE TONGUE AND ALLOW TODISSOLVE EVERY 6 HOURS NEEDED FOR 3 DAYS 06/02/2023 12/06/2024 Discontinuedpantoprazole 40 mg delayed release oral tablet (12 sources)Proton Pump InhibitorStart: 06-01-2023 End: 24-17-6806ltsgkjhpllqx (ProtoNix) 40 MG EC tablet Take 40 mg by mouth 06/01/2023 12/06/2024 DiscontinuedPrenatal 28-0.8 MG tablet (20 sources)take 1 tablet by mouth once dailyPrenatal 28-0.8 MG tablet Take 1 tablet by mouth Daily ActivePrenatal Vit-Fe Fumarate-FA ( Plus) 27-1 MG tablet (9 sources) End: 81-30-9731Rfqwclzg Vit-Fe Fumarate-FA ( Plus) 27-1 MG tablet 1 (one) time each day at the same time. 12/06/2024 DiscontinuedPrenatal Vit-Fe Fumarate-FA ( Plus) 27-1 MG tablet 1 (one) time each day at the same time. Active Problems Active Problems Problem ClassificationProblemDateDocumented DateEpisodic/ChronicAbdominal pain (12 sources)Unspecified abdominal pain; Translations: [Upper abdominal pain, unspecified]Onset: 92-30-0038PpgdeoipXkjhwrup reactions (1 source)Allergy, unspecified, initial encounter; Translations: [ALLERGY UNSPECIFIED INITIAL ENCNTR]Onset: 87-09-1430AshwlmtcFnkwxim disorders (2 sources)Generalized anxiety disorder; Translations: [Generalized anxiety disorder]10-01-2487TmnvmckFlwihf (3 sources)Asthma; Translations: [Unspecified asthma, uncomplicated]Onset: 541526-86-7862KdbhbxuQvoiifuqi-xvkxnkw, conduct, and disruptive behavior disorders (20 sources)Attention deficit hyperactivity disorder; Translations: [Attention- deficit hyperactivity disorder, unspecified type]Onset: ChronicBiliary tract disease (5 sources)Biliary calculus; Translations: [Biliary colic]Onset: 09-27-2023 70-89-5690UcuzkgkzIcfkpwdc; convulsions (1 source)Other epilepsy, not intractable, without status epilepticus; Translations: [OTH EPIL NOT INTRACTABLE WITHOUT SE]Onset: 66-70-7554Zpqivet Epilepsy; convulsions (7 sources)Unspecified convulsions; Translations: [UNSPECIFIED CONVULSIONS] Onset: 02-77-4383ZmlaxhleLwtcvrjdke disorders (1 source)Gastro-esophageal reflux disease without esophagitis; Translations: [GERD WITHOUT ESOPHAGITIS]Onset: 67-05-8607BiebzguHvsintkjjoeqf symptoms and ill-defined conditions (20 sources)Nocturnal enuresis; Translations: [Nocturnal enuresis]Onset: 201152-23-9567VoolapwIblwftnx; including migraine (20 sources)Migraine; Translations: [Migraine, unspecified, not intractable, without status migrainosus]Onset: 833124-55-9765OuvkajmQprwgglqyvwyc and screening for infectious disease (2 sources)Exposure to sexually transmissible disorder; Translations: [Contact with and (suspected) exposure to infections with a predominantly sexual mode of transmission]87-69-0857TajntwetSfqehgwdahya diseases of female pelvic organs (2 sources)Bacterial vaginosis; Translations: [Acute vaginitis]03-20-2025 EpisodicMenstrual disorders (5 sources)Irregular menstruation, unspecified; Translations: [Missed period] Onset: 77-36-6885QkhdkjsActlgwrpknblz mental health disorders (20 sources)Dissociative neurological symptom disorder; 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]Onset: 756646-73-6295VoqviewPvhrobt (2 sources)Mycosis; Translations: [Candidiasis, unspecified]91-04-8932Akzfcuuw Other aftercare (1 source)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; Translations: [OTH PENITENTIARY CURRENT DRUG THERAPY]Onset: 26-41-7057WwnqucktWendu complications of (2 sources)Maternal care for other specified problems, unspecified trimester, not applicable or unspecified; Translations: [MAT CARE OTH FTL PROB UNS TRI UNS]Onset: 89-38-0033QshtslanNhwxe complications of (2 sources)Maternal care for problem, unspecified, unspecified trimester, not applicable or unspecified;Translations: [MAT CARE FTL PROB UNS UNS TRI UNS] Onset: 39-91-8400QaszegxhJyoer complications of (4 sources)Maternal care for other known or suspected poor growth, third trimester, not applicable or unspecified; Translations: [MAT CARE OTH WA FTL GRTH 3RD TM UNS]Onset: 69-47-4309WrwrciggBrazt complications of (1 source)Smoking (tobacco) complicating , third trimester; Translations: [SMOKING TOBACCO COMP UCJP5FM TRI]Onset: 92-40-6966FsrnxuywIiohg complications of (4 sources)Other specified related conditions, third trimester; Translations: [OTH SPEC PREG RELATEDCOND 3RD TRI]Onset: 82-14-7035LwxmblleZqgol complications of (4 sources)Uterine size-date discrepancy, unspecified trimester; Translations: [UTERINE SZ-DATE DISCREPANCY UNS TRI]Onset: 32-27-1669UcsddimwRlkjt complications of (2 sources) size does not accord with dates; Translations: [Uterine size- date discrepancy, unspecified trimester]02-63-9558NtcosrjeUbkjd endocrine disorders (4 sources)Polycystic ovary syndrome; Translations: [Polycystic ovarian syndrome]77-09-0331QuwmvkqFgctv female genital disorders (2 sources)Vaginal discharge; Translations: [Other specified noninflammatory disorders of vagina]20-85-9238TjcftoieVdqjj lower respiratory disease (3 sources)Shortness of breath; Translations: [SHORTNESS OF BREATH]Onset: 40-06-6067TokshbfdUchps and delivery including normal (20 sources)Encounter for supervision of normal , unspecified, third trimester; Translations: [Encounter for supervision of normal first , first trimester]Onset: 24-58-4538VpvvcflbGlhtx screening for suspected conditions (not mental disorders or infectious disease) (6 sources)Patient encounter status; Translations: [Encounter for other specified screening]25-47-1266IjbnewpuCtnirwfk codes; unclassified (1 source)36 weeks gestation of ; Translations: [36 WEEKS GESTATION OF ]Onset: 63-44-2998MpidtlmxEysozjst codes; unclassified (1 source)Weeks of gestation of not specified; Translations: [WEEKS GESTATION NOT SPEC]Onset: 63-91-7803YtkguzplTdovbahz codes; unclassified (1 source)35 weeks gestation of ; Translations: [35 WEEKS GESTATION OF ]Onset: 66-54-5233UmibxxycYernufvq codes; unclassified (1 source)34 weeks gestation of ; Translations: [34 WEEKS GESTATION OF ]Onset: 37-58-5685InfpqiuvYkfeughz codes; unclassified (1 source)Acquired absence of other specified parts of digestive tract; Translations: [Acquired absence of other specified parts of digestive tract] Onset: 05-93-6224LpwnypdiBjndoueq codes; unclassified (1 source)Pain, unspecified; Translations: [Pain, unspecified]Onset: 08-23-2023 EpisodicResidual codes; unclassified (2 sources)Gestation period, 12 weeks; Translations: [12 weeks gestation of ]83-67-0810VdtwhoyiQpeooges codes; unclassified (4 sources)Personal history of other specified conditions; Translations: [Personal history of other specified diseases]58-33-1575KzrgipbmFxollkpn codes; unclassified (2 sources)Gestation period, 16 weeks; Translations: [16 weeks gestation of ]80-76-1879GhtjcfroKhoybklz codes; unclassified (2 sources)Gestation period, 20 weeks; Translations: [20 weeks gestation of ]71-63-1617OgsgwjzkJanpgmcx codes; unclassified (2 sources)Gestation period, 24 weeks; Translations: [24 weeks gestation of ]32-53-6179BaljuldkTnjekzzb codes; unclassified (2 sources)Gestation period, 26 weeks; Translations: [26 weeks gestation of ]77-43-6566VnnxhvuuVgmkikfh codes; unclassified (2 sources)Gestation period, 28 weeks; Translations: [28 weeks gestation of ]80-10-4974QqgowrcaNxvpbgxb codes; unclassified (2 sources)Gestation period, 29 weeks; Translations: [29 weeks gestation of ]06-87-5157MqqzxlbcQiuhkygp codes; unclassified (2 sources)Gestation period, 31 weeks; Translations: [31 weeks gestation of ]21-17-7279XvkrdajvLwhivljf codes; unclassified (2 sources)Gestation period, 33 weeks; Translations: [33 weeks gestation of ]94-40-6540JtqctsgoCdzjqqet codes; unclassified (2 sources)Gestation period, 35 weeks; Translations: [35 weeks gestation of ]59-58-0141QercfnfgTjlrfgztwcp; intervertebral disc disorders; other back problems (1 source)Degeneration of cervical intervertebral okjr42-51-9641Fmppyaq Substance-related disorders (1 source)Nicotine dependence, cigarettes, uncomplicated; Translations: [NICOTINE DEPEND CIGARETTES UNCOMP]Onset: 98-64-7663TudcrdkRdgdjxgzlavs (3 sources)CONTACT W/AND (SUSP) EXPOS COVID-19; Translations: [CONTACT W/AND (SUSP) EXPOS COVID-19]Onset: 97-54-3357Iknykdklrnab (1 source)Post-opOnset: 82-87-7955Dlbgojuviyfc (1 source)CholelithiasisOnset: 69-53-1384Jhktckw tract infections (3 sources)Urinary tract infection, site not specified; Translations: [Urinary tract infectious disease]Onset: 28-63-385439995310-91-9690Xtfdycka Past or Other Problems Problem ClassificationProblemDateDocumented DateEpisodic/Chronic Administrative/social admission (20 sources)Deterioration in school performance; Translations: [Other problems related to education and literacy]Onset: 674330-73-1410DiwiygbjWbguglnjcn during ; abruptio placenta; placenta previa (5 sources)Hemorrhage in early , unspecified; Translations: [HEMORRHAGE EARLY UNS]Onset: 73-80-9809NxvxepevNnhmwx and vomiting (1 source)Nausea with vomiting, unspecified; Translations: [NAUSEA WITH VOMITING UNSPECIFIED]Onset: 02-30-7616ZdlgjkocAjixl complications of (4 sources)Unspecified infection of urinary tract in , unspecified trimester; Translations: [UNS INF URINARY TRACT PREG UNS TRI]Onset: 08-25-2022 EpisodicOther complications of (1 source)Smoking (tobacco) complicating , first trimester; Translations: [SMOKING TOBACCO COMP TCHV7XY TRI]Onset: 89-93-9445VdmwpgldNofoi complications of (1 source)Unspecified infection of urinary tract in , first trimester; Translations: [UNS INF URINARY TRACT PREG 1ST TRI]Onset: 33-29-6119UmpwsdioMotvf complications of (1 source)Other specified related conditions, first trimester; Translations: [OTH SPEC PREG RELATEDCOND 1ST TRI]Onset: 11-58-3294NhhoryekQaucf complications of (4 sources)Other specified related conditions, unspecified trimester; Translations: [OTH SPEC PREG RELATED COND UNS TRI]Onset: 11-24-3285GcnucygqWclve complications of (1 source)Smoking (tobacco) complicating , unspecified trimester; Translations: [SMOKING TOBACCO COMP PREG UNS TRI]Onset: 84-60-3909GskalvjlYgayv upper respiratory infections (1 source)Acute sinusitis, unspecified; Translations: [ACUTE SINUSITIS UNSPECIFIED]Onset: 28-49-6239UlfsfideKnjgqwnp codes; unclassified (1 source)8 weeks gestation of ; Translations: [8 WEEKS GESTATION OF ]Onset: 95-26-4304EnxgiozqDsdhtrov codes; unclassified (1 source)Less than 8 weeks gestation of ; Translations: [< 8 WEEKS GESTATION ]Onset: 97-39-6103ZyopyywdLgzpakw (1 source)Syncope and collapse; Translations: [SYNCOPE AND COLLAPSE]Onset: 87-92-0176ClmdqrhtFtcgebjnbyzu (1 source)CONTACT W/AND (SUSP) EXPOS COVID-19; Translations: [CONTACT W/AND (SUSP) EXPOS COVID-19]Onset: 06-25-2022 Results Test NameValueInterpretationReference RangeFacilityUrinalysis macro (dipstick) panel (U)on 67-98-6556Gommbomjm, UANegativeNegative - 4(70) +++ mg/dLNOMS HealthcareBlood, UANegativeNegative - 50 Blayne/mcLNOMS HealthcareClarity, UACloudy NOMS HealthcareColor, UAAmberNOMS HealthcareGlucose, UANegativeNegative - 1999(110) ++++ mg/dLNOMS HealthcareInterpretation and review of laboratory resultsAbnormalNOMS HealthcareKetones, UANegativeNegative - 160(16) ++++ mg/dL [facility]S HealthcareLeukocytes, UA2+Negative - 500+++ Jo/mcLNOMS HealthcareNitrite, UANegativeNegative - PositiveNOMS HealthcarepH, UA6.05 - 9N[facility] Protein, UA1+Negative - 1999(20) ++++ mg/dLNOMS HealthcareSpec Grav, UA1.0201 - 1.03NOMS HealthcareUrobilinogen, UA1.00.2 - 12 mg/dLNOMS HealthcareNOMS HealthcareUrinalysis macro (dipstick) panel (U)on 60-62-1071Ldnxnocvy, UA NegativeNegative - 4(70) +++ mg/dLNOMS HealthcareBlood, UANegativeNegative - 50 Blayne/mcLNOMS HealthcareClarity, UAClearNOMS HealthcareColor, UAYellowNOMS HealthcareGlucose, UANegativeNegative - 1999(110) ++++ mg/dLNOMS Healthcare Interpretation and review of laboratory resultsAbnormalNOMS HealthcareKetones, UAPositiveNegative - 160(16) ++++ mg/dLNOMS HealthcareLeukocytes, UA3+Negative - 500+++ Jo/mcLNOMS HealthcareNitrite, UANegativeNegative - PositiveNOMS HealthcarepH, UA6.05 - 9NOMS HealthcareProtein, UANegativeNegative - 2000(20) ++++ mg/dLNOMS HealthcareSpec Grav, UA1.0151 - 1.03NOMS HealthcareUrobilinogen, UA1.00.2 - 12 mg/dLNOMS HealthcareNOMS HealthcareUrinalysis macro (dipstick) panel (U)on 69-23-0802Ykrpjcsaw, UANegativeNegative - 4(70) +++ mg/dLNOMS HealthcareBlood, UANegativeNegative - 50 Blayne/mcLNOMS HealthcareClarity, UAClear NOMS HealthcareColor, UAYellowNOMS HealthcareGlucose, UANegativeNegative - 2000(110) ++++ mg/dLNOMS HealthcareInterpretation and review of laboratory resultsAbnormalNOTX HealthcareKetones, UANegativeNegative - 160(16) ++++ mg/dL NOMS HealthcareLeukocytes, UA1+Negative - 500+++ Jo/mcLNOMS HealthcareNitrite, UANegativeNegative - PositiveNOMS HealthcarepH, UA65 - 9NOMS HealthcareProtein, UATraceNegative - 2000(20) ++++ mg/dLNOMS HealthcareSpec Grav, UA1.031 - 1.03 NOMS HealthcareUrobilinogen, UA2.00.2 - 12 mg/dLNOMS HealthcareNOTX Healthcare ALL CBC WITH AUTO DIFFon 35-11-0674XRXAWNRRS ABSOLUTE DLFO7KQWP Healthcare Basophils/100 WBC (Bld)0.3 %0.2 - 2.0 %NOMS HealthcareEosinophils/100 WBC (Bld) 0.9 %0.9 - 7.0 %NOMS HealthcareErythrocyte distribution width (RBC) [Ratio]11.9 %11.0 - 15.0 %NOMS HealthcareHematocrit (Bld) [Volume fraction]34.5 %Low36.0 - 48.0 %NOMS HealthcareHemoglobin (Bld) [Mass/Vol]12.6 g/dL12.0 - 16.0 g/dLNOTX HealthcareIMMATURE GRANULOCYTES ABS AUTO0.17HighNOTX HealthcareImmature granulocytes/100 WBC (Bld)1.8 %High0.0 - 0.5 %[facility] HealthcareInterpretation and review of laboratory resultsAbnormalMCKAY-DEE [facility]ITAL [facility] HealthcareLYMPHOCYTES ABSOLUTE AUTO1.7 NOMProgress West HospitalLymphocytes/100 WBC (Bld)17.7 %Low20.5 - 60.0 %[facility] HospitalH (RBC) [Entitic mass]32 pg26.7 - 34.0 pgBates County Memorial HospitalHC (RBC) [Mass/Vol]36.5 g/vKBffd04.9 - 35.2 g/dLBates County Memorial HospitalV (RBC) [Entitic vol]87.6 fL81.0 - 99.0 fLSaint Luke's East HospitalMONOCYTES ABSOLUTE AUTO0.9HighMCKAY-DEE HOSPITAL CENTER HealthcareMonocytes/100 WBC (Bld)9 %1.7 - 12.0 %[facility] HospitalNEUTROPHILS ABSOLUTE AUTO6.8HighMCKAY-DEE HOSPITAL CENTER HealthcareNeutrophils/100 WBC (Bld)70.3 %43.0 - 75.0 %[facility] HealthcarePlatelet mean volume (Bld) [Entitic vol]11.3 fL9.5 - 13.5 fLSaint Luke's East HospitalTBH EO #0.1 [facility] HospitalTB BEZ284CBQRSac-Osage HospitalTB RBC3.94LowNOSac-Osage HospitalTB WBC9.7 [facility] HospitalCLINISYNCNPOST AC[facility] HealthcareUrinalysis macro (dipstick) panel (U)on 21-28-8023Fanjtnmia, UANegativeNegative - 4(70) +++ mg/dLNOTX HealthcareBlood, UANegativeNegative - 50 Blayne/mcLNOMS HealthcareClarity, UAClearNOTX Healthcare Color, UAYellowNOTX HealthcareGlucose, UANegativeNegative - 1999(110) ++++ mg/dL [facility] HealthcareInterpretation and review of laboratory resultsNormalMCKAY-DEE HOSPITAL [facility]ENTER HealthcareKetones, UANegativeNegative - 160(16) ++++ mg/dLMCKAY-DEE HOSPITAL [facility]ENTER Healthcare Leukocytes, UANegativeNegative - 500+++ Jo/mcLNOMS HealthcareNitrite, UA NegativeNegative - PositiveNOMS HealthcarepH, UA65 - 9NOMS HealthcareProtein, UA 1+Negative - 1999(20) ++++ mg/dLNOMS HealthcareSpec Grav, UA1.021 - 1.03NOMS HealthcareUrobilinogen, UA1.00.2 - 12 mg/dLNOMS HealthcareNOMS Healthcare Urinalysis macro (dipstick) panel (U)on 25-69-7066Roxyffsfj, UANegativeNegative - 4(70) +++ mg/dLNOMS HealthcareBlood, UANegativeNegative - 50 Blayne/mcLNOMS HealthcareClarity, UAClearNOMS HealthcareColor, UAYellowNOMS HealthcareGlucose, UANegativeNegative - 1999(110) ++++ mg/dLNOMS HealthcareInterpretation and review of laboratory resultsNormalNOMS HealthcareKetones, UANegativeNegative - 160(16) ++++ mg/dLNOMS HealthcareLeukocytes, UANegativeNegative - 500+++ Jo/mcL NOMS HealthcareNitrite, UANegativeNegative - PositiveNOMS HealthcarepH, UA65 - 9 NOMS HealthcareProtein, UANegativeNegative - 1999(20) ++++ mg/dLNOMS Healthcare Spec Grav, UA1.021 - 1.03NOMS HealthcareUrobilinogen, UA0.20.2 - 12 mg/dLNOMS HealthcareNOMS HealthcareUrinalysis macro (dipstick) panel (U)on 03-20-2025 Bilirubin, UANegativeNegative - 4(70) +++ mg/dLNOMS HealthcareBlood, UANegative Negative - 50 Blayne/mcLNOMS HealthcareClarity, UAClearNOMS HealthcareColor, UA YellowNOMS HealthcareGlucose, UANegativeNegative - 1999(110) ++++ mg/dLNOMS HealthcareInterpretation and review of laboratory resultsAbnormalNOMS Healthcare Ketones, UANegativeNegative - 160(16) ++++ mg/dLNOMS HealthcareLeukocytes, UA PositiveNegative - 500+++ Jo/mcLNOMS HealthcareComment on above:2+Nitrite, UA NegativeNegative - PositiveNOMS HealthcarepH, UA65 - 9NOMS HealthcareProtein, UA NegativeNegative - 1999(20) ++++ mg/dLNOMS HealthcareSpec Grav, UA1.0251 - 1.03 NOMS HealthcareUrobilinogen, UA0.20.2 - 12 mg/dLNOMS HealthcareNOMS HealthcareUS OB 14+ WEEKS ANATOMY SCANon 24-84-6403CV OB 14+ WEEKS ANATOMY SCANEXAM: US OB [...] II, MD, PHD at 26-Feb-2025 07:25:53 AM [facility] TeleradiologyNormalNot AvailableComment on above:Order Comment: US OB ANATOMY SINGLE W US OB CERVICAL LENGTH Estimated Date of Delivery: 07/10/25 Gestational Age as of 01/29/2025: 08s1jLplgnthtlv macro (dipstick) panel (U)on 28-51-9185Xavfpfdit, UANegativeNegative - 4(70) +++ mg/dLNOMS HealthcareBlood, UANegativeNegative - 50 Blayne/mcLNOMS HealthcareClarity, UAClearNOMS Healthcare Color, UAYellowNOMS HealthcareGlucose, UANegativeNegative - 1999(110) ++++ mg/dL [facility] HealthcareInterpretation and review of laboratory resultsNormalNOMS HealthcareKetones, UAPositiveNegative - 160(16) ++++ mg/dLNOMS Healthcare Leukocytes, UANegativeNegative - 500+++ Jo/mcLNOMS HealthcareNitrite, UA NegativeNegative - PositiveNOMS HealthcarepH, UA6.55 - 9NOMS HealthcareProtein, UANegativeNegative - 2000(20) ++++ mg/dLNOMS HealthcareSpec Grav, UA1.1 - 1.03NOMS HealthcareUrobilinogen, UA1.00.2 - 12 mg/dLNOMS HealthcareNOMS HealthcareIGP,APTIMA HPV,AGE GDLNon 50-65-7738AYD GDLN ACOG TESTINGNote.[facility] HealthcareComment on above:TESTS RESULT FLAG UNITS REF RANGE LAB Clinician Provided Cytology Information Source.............Cervix No. of containers..01 ThinPrep Vial Age Algo ACOG Audra... -05 09 FLAG LEGEND: L-Low Normal,H-High Normal,LL-Alert Low,HH-Alert High <-Panic Low,>-Panic High,A-Abnormal,AA-Critical Abnormal Performed at: 01 =G [facility] [place] [address] [place] [address] Meseret Eden MD, IGP, RFX APTIMA HPV ASCUNote.NOMS HealthcareComment on above:TESTS RESULT FLAG UNITS REF RANGE LAB DIAGNOSIS: 02 NEGATIVE FOR INTRAEPITHELIAL LESION OR MALIGNANCY. FUNGAL ORGANISMS MORPHOLOGICALLY CONSISTENT WITH POLY SPECIES ARE PRESENT. THIS SPECIMEN WAS RESCREENED PART OF OUR DENTAL MANAGER PROGRAM. Specimen adequacy: 02 Satisfactory for evaluation. No endocervical component is identified. Performed by: 02 Barbie Ceja, Associate Product Integrity Engineer (ASCP) QC reviewed by: 02 Rhea Hoffmann, Associate Product Integrity Engineer (ASCP) . 02 Note: Note 02 The [...] <-Panic Low,>-Panic High,A-Abnormal,AA-Critical Abnormal Performed at: [address] [address] Meseret Eden MD, Performed at: = - [facility] [address] [id number] Copy Chief: Meseret Eden MD, Phone: [phone] Performed at: [facility] [address] [id number] Copy Chief: Meseret Eden MD, Phone: [phone] SPATULA-ALONE CERVIX CLINISYNCNOMS HealthcareRECURRENT VAGINITIS (HTRX)on 36-28-8439XVCVNOBXV VAGINAE 26.856AbnormalNOMS HealthcareATOPOBIUM VAGINAEDetectedAbnormalNOMS Healthcare BVAB 2,3 (BACTERIAL VAGINOSIS ASSOCIATED BACTERIA 2, 3); MOBILUNCUS SPP25.681 AbnormalNOMS HealthcareBVAB 2,3 (BACTERIAL VAGINOSIS ASSOCIATED BACTERIA 2, 3); MOBILUNCUS SPPDetectedAbnormalNOMS HealthcareCANDIDA ALBICANS, PARAPSILOSIS, CCWSMGIAVY0XSOP HealthcareCANDIDA ALBICANS, PARAPSILOSIS, TROPICALISNot detected NOMS HealthcareCANDIDA DFKYOQJF4BJYP HealthcareCANDIDA GLABRATANot detectedNOMS HealthcareCANDIDA BHZXHS6WQZA HealthcareCANDIDA KRUSEINot detectedNOMS HealthcareCHLAMYDIA BXZUETJUPLR4TVNM HealthcareCHLAMYDIA TRACHOMATISNot detected NOMS HealthcareERMB, C; MEFA18.156AbnormalNOMS HealthcareERMB, C; MEFADetected AbnormalNOMS HealthcareGARDNERELLA RNLQPRWEA18.184AbnormalNOMS Healthcare GARDNERELLA VAGINALISDetectedAbnormalNOMS HealthcareInterpretation and review of laboratory resultsAbnormalNOMS HealthcareMEGASPHAERA (TYPES 1, 2)0NOMS HealthcareMEGASPHAERA (TYPES 1, 2)Not detectedNOMS HealthcareMYCOPLASMA HQICYIHHCZ3ZZQQ HealthcareMYCOPLASMA GENITALIUMNot detectedNOMS Healthcare NEISSERIA KKPWQWDIWVI7EBHT HealthcareNEISSERIA GONORRHOEAENot detectedNOMS HealthcareTET B, TET M19.057AbnormalNOMS HealthcareTET B, TET MDetectedAbnormal NOMS HealthcareTRICHOMONAS HQTOPTGYR1XKQA HealthcareTRICHOMONAS VAGINALISNot detectedNOMS HealthcareNOMS HealthcareBOX TESTon 20-25-7472OYO TEST SENT OUT UNITYNOMS BtcnweixvoYQV4THPWZTYJT AcexlhurltJLY361/02/2025NOMS HealthcareUNITY BOX CLINISYNCNOMS HealthcareHCG ( test) Ql (U)on 93-75-3343Axpvwhuwkpsyos and review of laboratory resultsAbnormalNOTX HealthcarePreg Test, UrPositive NegativeNOUniversity Hospital HealthcareUS OB TRANSVAGINALon 58-57-0874CP OB TRANSVAGINALEXAM: US OB TRANSVAGINAL HISTORY: Dating. [...] II, MD, PHD at 09-Dec-2024 08:55:08 PM [facility] TeleradiologyNormalNot AvailableComment on above:Order Comment: US OB TRANSVAGINAL No LMP recorded.Urinalysis macro (dipstick) panel (U)on 02-10-6274Jcivcbmjz, UA NegativeNegative - 4(70) +++ mg/dLNOMS HealthcareBlood, UAPositiveNegative - 50 Blayne/mcLNOMS HealthcareComment on above:trace-intactClarity, UAClearNOMS HealthcareColor, UAYellowNOMS HealthcareGlucose, UANegativeNegative - 2000(110) ++++ mg/dLNOMS HealthcareInterpretation and review of laboratory resultsAbnormal NOMS HealthcareKetones, UANegativeNegative - 160(16) ++++ mg/dLNOTX Healthcare Leukocytes, UATraceNegative - 500+++ Jo/mcLNOMS HealthcareNitrite, UANegative Negative - PositiveNOMS HealthcarepH, UA65 - 9NOMS HealthcareProtein, UANegative Negative - 2000(20) ++++ mg/dLNOMS HealthcareSpec Grav, UA1.021 - 1.03NOMS HealthcareUrobilinogen, UA0.20.2 - 12 mg/dLNOTX HealthcareNOMS HealthcareTBH PREG QUANT HCGon 66-61-6473IST RFRARZQPJGMU855jDZ/mLNOMS HealthcareComment on above:5-50 0.2-1 WEEK 50-500 1-2 WEEKS 100-5,000 2-3 WEEKS 500-10,000 3-4 WEEKS 1,000-50,000 4-5 WEEKS 10,000-100,000 5-6 WEEKS 15,000-200,000 6-8 WEEKS 10,000-100,000 2-3 MONTHS CLINISYNCNOMS HealthcareALL CBC WITH AUTO DIFFon 66-41-8023IVGTCKJJP ABSOLUTE AUTO0.1NOMS HealthcareBasophils/100 WBC (Bld)0.7 %0.2 - 2.0 %NOMS Healthcare Eosinophils/100 WBC (Bld)4.9 %0.9 - 7.0 %NOMS HealthcareErythrocyte distribution width (RBC) [Ratio]11.8 %11.0 - 15.0 %NOMS HealthcareHematocrit (Bld) [Volume fraction]44.7 %36.0 - 48.0 %NOMS HealthcareHemoglobin (Bld) [Mass/Vol]15.7 g/dL 12.0 - 16.0 g/dLNOTX HealthcareIMMATURE GRANULOCYTES ABS AUTO0.02NOMS Healthcare Immature granulocytes/100 WBC (Bld)0.3 %0.0 - 0.5 %NOM HealthcareLYMPHOCYTES ABSOLUTE AUTO3.1NOMS HealthcareLymphocytes/100 WBC (Bld)42 %20.5 - 60.0 %NOMProgress West HospitalMCH (RBC) [Entitic mass]29.5 pg26.7 - 34.0 pgNOSac-Osage HospitalMCHC (RBC) [Mass/Vol]35.1 g/dL29.9 - 35.2 g/dLNOSac-Osage HospitalMCV (RBC) [Entitic vol]84 fL 81.0 - 99.0 fLNOSac-Osage HospitalMONOCYTES ABSOLUTE AUTO0.5NOSac-Osage Hospital Monocytes/100 WBC (Bld)7.3 %1.7 - 12.0 %NOMProgress West HospitalNEUTROPHILS ABSOLUTE AUTO 3.3NOMS HealthcareNeutrophils/100 WBC (Bld)44.8 %43.0 - 75.0 %[facility] Platelet mean volume (Bld) [Entitic vol]11.7 fL9.5 - 13.5 fLNOSac-Osage HospitalTBH EO #0.4NOMS HealthcareTBH ITA543BRLF [facility] HospitalTB RBC5.32NOMS [facility] HospitalTB WBC 7.3NOTX HealthcareCLINISYNCNOMS HealthcareHCG ( test) Ql (U)on 51-67-9325Beja HCG ( test) Ql (U)NegativeNormalNEGProMedica Saint Elizabeth Community HospitalComment on above:Performed By: #### 2106-3 #### [facility] ([id number]) [address] [place] [address], FIRST FLOOR [place], [place] [address]Uvaozcan Pathologyon 88-83-5395Ctgrwsjs PathologyNormal [facility] Samaritan HospitalComment on above:Result Comment: [facility] [address] [place] [address] Surgical Pathology Consultation Patient Name:KEMI PIPER:2005 (Age: 18)Gender:FTaken:2/26/2024Reported:10/06/2023hysician(s):Alo Morgan MD ([phone])Copy To: Rec. #:[id number]: #[id number] Final Pathologic Diagnosis Gallbladder, cholecystectomy: - Chronic cholecystitis and cholesterolosis. - Benign reactive lymph node. Report Electronically Signed Out eak/10/06/2023Serena Quintanilla MD Interpretation performed at [facility], [address] [place] [address], License number: [id number]. Clinical History Biliary colic. Gross Description Received [...] duct margin, bisected lymph node and a home office representative section of the gallbladder neck aresubmitted in cassette A with additional sections from the gallbladder are submitted in cassette B (to include polypoid like projection). (2, ss, E14-0321, A???B, m2) [facility]/2023EAK Specimen(s) Received Gallbladder Fee Codes(s): 1; 98[address]HMGXT METABOLIC PANLon 85-47-4745Emldc gap [Moles/Vol]7 mmol/LNormal5-15 [facility]aritan HospitalComment on above:Performed By: #### CBCA, BMP, LIVR #### [facility] ([id number]) [address] [place] [address], [address] [place], [place] [address]Hdhdtyt [Mass/Vol]9.0 mg/dLNormal8.5-10.5PEast Ohio Regional HospitalComment on above:Performed By: #### DEANGELO OLIVERA, LIVR #### [facility] ([id number]) [address], [address] [place], [place] [address]Oixyomfa [Moles/Vol]109 mmol/WUenpwv27-229RtaKiicsySt. Luke'S Health – Memorial Livingston HospitalComment on above:Performed By: #### DEANGELO OLIVERA, LIVR #### [facility] ([id number]) [address], [address] [place], [place] [address]RE6 [Moles/Vol]27 mmol/KAtbdhu93-86TnnGepvtyEast Ohio Regional Hospital Comment on above:Performed By: #### DEANGELO OLIVERA, LIVR #### [facility] ([id number]) [address], [address] [place], [place] [address]Oneecjhpwa [Mass/Vol]0.98 mg/dLNormal0.40-1.00ProSt. Luke'S Health – Memorial Livingston HospitalComment on above:Result Comment: METHOD TRACEABLE TO IDMS STANDARD Performed By: #### DEANGELO OLIVERA, LIVR #### [facility] ([id number]) [address], [address] [place], [place] [address]IUC/1.73 sq M.predicted among non-blacks MDRD (S/P/Bld) [Vol rate/Area]85 mL/min/{1.73_m2}Normal>59ProSt. Luke'S Health – Memorial Livingston HospitalComment on above:Result Comment: Reported eGFR is based on the CKD-EPI 2021 equation that does not use a race coefficient.Performed By: #### DEANGELO OLIVERA, LIVR #### [facility] ([id number]) [address], [address] [place], [place] [address]Pbxqgtv [Mass/Vol]82 mg/mJHlbubh69-52ShrJpmwmoTriHealth Good Samaritan Hospital Comment on above:Performed By: #### DEANGELO OLIVERA, LIVR #### [facility] ([id number]) [address], [address] [place], [place] [address]Ecenibocs [Moles/Vol]4.0 mmol/LNormal3.5-5.0[facility] Samaritan HospitalComment on above:Performed By: #### CBCAiram, BMP, LIVR #### [facility] ([id number]) [address], [address] [place], [place] [address]Dyovsj [Moles/Vol]143 mmol/VZmsbvh521-618PbbCeyaxa Fremont HospitalComment on above:Performed By: #### CBCA, BMP, LIVR #### [facility] ([id number]) [address], [address] [place], [place] [address]Qevv nitrogen [Mass/Vol]7 mg/dLNormal5-23ProSt. Luke'S Health – Memorial Livingston HospitalComment on above:Performed By: #### CBCAiram BMP, LIVR #### [facility] ([id number]) [address], [address] [place], [place] [address]Gijmw Metabolic Panelon 32-54-3470Gzqck gap [Moles/Vol]7 mmol/L5 - 15 mmol/[facility] Health SystemCalcium [Mass/Vol]9.0 mg/dL8.5 - 10.5 mg/dL [facility] SystemChloride [Moles/Vol]109 mmol/L98 - 109 mmol/[facility] Health SystemCO2 [Moles/Vol]27 mmol/L22 - 32 mmol/[facility] Creatinine [Mass/Vol]0.98 mg/dL0.40 - 1.00 mg/dLBerger HospitalComment on above:METHOD TRACEABLE TO IDTX STANDARDeGFR (CKD-EPI)non-race mpvsmcbet15- [facility] SystemComment on above: Reported eGFR is based on the CKD-EPI 2020 equation that does not use a race coefficient. Glucose [Mass/Vol]82 mg/dL65 - 99 mg/dLBlanchard Valley Health System SystemPotassium [Moles/Vol]4.0 mmol/L3.5 - 5.0 mmol/LProMedica Health SystemSodium [Moles/Vol] 143 mmol/L134 - 146 mmol/LProMedFisher-Titus Medical CenterUrea nitrogen [Mass/Vol]7 mg/dL 5 - 23 mg/dLProOhiohealth Van Wert HospitalCBC AND AUTO DIFFon 01-84-5391JKUYNYAB BASOPHIL0.0 X10E9/LNormal0.0-0.2PEast Ohio Regional HospitalComment on above: Performed By: #### CBCA, BMP, LIVR #### [facility] ([id number]) [address], [address] [place], [place] [address]RBQBFZIM NEUTROPHIL2.8 X10E9/LNormal1.5-6.6[facility]itan HospitalComment on above:Performed By: #### CBCA BMP, LIVR #### [facility] ([id number]) [address], [address] [place], [place] [address]Ulxeyiskv/100 WBC (Bld)0.6 %NormalTriHealth Good Samaritan Hospital Comment on above:Performed By: #### CBCA, BMP, LIVR #### [facility] ([id number]) [address], [address] [place], [place] [address]Ezzlghslyma (Bld) [#/Vol]0.2 10*3/uLNormal0.0-0.4[facility]itan HospitalComment on above:Performed By: #### CBCA, BMP, LIVR #### [facility] ([id number]) [address], [address] [place], [place] [address]Esvpfattrvu/100 WBC (Bld)2.8 %NormalTriHealth Good Samaritan Hospital Comment on above:Performed By: #### CBCA, BMP, LIVR #### [facility] ([id number]) [address], [address] [place], [place] [address]Hpzadwakwel distribution width (RBC) [Ratio]12.2 %Normal 11.5-15.0[facility] Samaritan HospitalComment on above:Performed By: #### CBCA, BMP, LIVR #### [facility] ([id number]) [address], [address] [place], [place] [address]Ipscheahkk (Bld) [Volume fraction]39.7 %Huamcx29-62YwbOwhlkxSt. Luke'S Health – Memorial Livingston HospitalComment on above:Performed By: #### CBCA, BMP, LIVR #### [facility] ([id number]) [address], [address] [place], [place] [address]Uacxequslc (Bld) [Mass/Vol]13.6 g/zMJnotqo33.7-15.5PEast Ohio Regional HospitalComment on above:Performed By: #### CBCA, BMP, LIVR #### [facility] ([id number]) [address], [address] [place], [place] [address]Qvjkeymsrpo (Bld) [#/Vol]2.2 10*3/uLNormal1.0-3.5PEast Ohio Regional HospitalComment on above:Performed By: #### CBCA, BMP, LIVR #### [facility] ([id number]) [address], [address] [place], [place] [address]Xpaptmhhgfs/100 WBC (Bld)38.4 %NormalTriHealth Good Samaritan Hospital Comment on above:Performed By: #### CBCA, BMP, LIVR #### [facility] ([id number]) [address], [address] [place], [place] [address]TMK (RBC) [Entitic mass]29.6 duImbzds98-29PnhRwfbtoSt. Luke'S Health – Memorial Livingston HospitalComment on above:Performed By: #### CBCA, BMP, LIVR #### [facility] ([id number]) [address], [address] [place], [place] [address]LIJN (RBC) [Mass/Vol]34.3 g/aBWmhwix97-67SsiTmwuyx Fremont HospitalComment on above:Performed By: #### CBCA, BMP, LIVR #### [facility] ([id number]) [address], [address] [place], [place] [address]ZYG (RBC) [Entitic vol]87 qNHcojno49-578XmuIikhakTriHealth Good Samaritan HospitalComment on above:Performed By: #### CBCA, BMP, LIVR #### [facility] ([id number]) [address], [address] [place] [address]Aihctqxno (Bld) [#/Vol]0.5 10*3/uLNormal0-0.9[facility]itan HospitalComment on above:Performed By: #### CBCA, BMP, LIVR #### [facility] ([id number]) [address], [address] [place] [address]Mtpyiedky/100 WBC (Bld)9.2 %NormalTriHealth Good Samaritan Hospital Comment on above:Performed By: #### CBCA, BMP, LIVR #### [facility] ([id number]) [address], [address] [place] [address]Wdevhhdakqz/100 WBC (Bld)49.0 %[facility] Comment on above:Performed By: #### CBCA, BMP, LIVR #### [facility] ([id number]) [address], [address] [place] [address]Gmasgvwv mean volume (Bld) [Entitic vol]10.8 fLNormal7-12 [facility] Samaritan HospitalComment on above:Performed By: #### CBCA, BMP, LIVR #### [facility] ([id number]) [address], [address] [place] [address]Dxuopkwal (Bld) [#/Vol]212 10*3/cOOuxwju023-364DzyInqrrf [facility]remont HospitalComment on above:Performed By: #### CBCA, BMP, LIVR #### [facility] ([id number]) [address], [address] [place], [place] [address]OBV COUNT4.60 X10E12/LNormal3.80-5.20[facility] Comment on above:Performed By: #### CBCDEANGELO Alegria, LIVR #### [facility] ([id number]) [address], [address] [place], [place] [address]AQZ (Bld) [#/Vol]5.7 10*3/uLNormal4.0-11.0[facility]aritan HospitalComment on above:Performed By: #### CBCA, DEANGELO, LIVR #### [facility] ([id number]) [address], [address] [place], [place] [address]FUJ auto differentialon 13-95-7365Pjnmhhrqx (Bld) [#/Vol]0.0 10*3/uLBerger HospitalBasophils/100 WBC (Bld)0.6 %Berger HospitalEosinophils (Bld) [#/Vol]0.2 10*3/uLBerger HospitalEosinophils/100 WBC (Bld)2.8 %Berger HospitalErythrocyte distribution width (RBC) [Ratio]12.2 %11.5 - 15.0 %Berger HospitalHematocrit (Bld) [Volume fraction]39.7 %35 - 47 %Berger HospitalHemoglobin (Bld) [Mass/Vol]13.6 g/dL11.7 - 15.5 g/dLBerger HospitalLymphocytes (Bld) [#/Vol]2.2 10*3/uL Berger HospitalLymphocytes/100 WBC (Bld)38.4 %[facility] HospitalH (RBC) [Entitic mass]29.6 pg27 - 34 [facility] HospitalMCHC (RBC) [Mass/Vol]34.3 g/dL32 - 36 g/dLTriHealth McCullough-Hyde Memorial HospitalV (RBC) [Entitic vol]87 fL80 - 100 [facility] HospitalMonocytes (Bld) [#/Vol]0.5 10*3/uLBerger HospitalMonocytes/100 WBC (Bld)9.2 %[facility] SystemNeutrophils (Bld) [#/Vol]2.8 10*3/[facility] Children's HospitalNeutrophils/100 WBC (Bld)49.0 % [facility] SystemPlatelet mean volume (Bld) [Entitic vol]10.8 fL7 - 12 fL Berger HospitalPlatelets (Bld) [#/Vol]212 10*3/[facility] RBC (Bld) [#/Vol]4.60 10*6/[facility] Children's HospitalWBC corrected for nucl RBC Auto (Bld) [#/Vol]5.7Cancer Treatment Centers of AmericaECG 12 leadon 42-99-1510KIKBVNUJMZTDXOIhtRxvrkd Health SystemLIVER PANELon 19-45-0277Umlkydw [Mass/Vol]4.4 g/dLNormal3.2-5.3PEast Ohio Regional HospitalComment on above: Performed By: #### CBCA, BMP, LIVR #### [facility] ([id number]) [address], [address] [place], [place] [address]NSZ [Catalytic activity/Vol]65 U/XWviswy38-390OpxYjxdoyTriHealth Good Samaritan HospitalComment on above:Performed By: #### CBCA, BMP, LIVR #### [facility] ([id number]) [address], [address] [place], [place] [address]DVU [Catalytic activity/Vol]18 U/LNormal0-31PEast [facility] Regional HospitalComment on above:Performed By: #### CBCA, BMP, LIVR #### [facility] ([id number]) [address], [address] [place], [place] [address]LXT [Catalytic activity/Vol]16 U/LNormal0-41[facility] Samaritan HospitalComment on above:Performed By: #### CBCA, BMP, LIVR #### [facility] ([id number]) [address], [address] [place], [place] [address]Kwkbzccag [Mass/Vol]0.5 mg/dLNormal0.3-1.2PEast Ohio Regional HospitalComment on above:Performed By: #### CBCAiram BMP, LIVR #### [facility] ([id number]) [address], [address] [place], [place] [address]Fnxcrvbee.direct [Mass/Vol]0.2 mg/dLNormal0.0-0.4[facility]aritan HospitalComment on above:Performed By: #### CBCA, BMP, LIVR #### [facility] ([id number]) [address], [address] [place], [place] [address]Ihoxgrh [Mass/Vol]6.6 g/dLNormal6.0-8.0ProSt. Luke'S Health – Memorial Livingston HospitalComment on above:Performed By: #### CBCAiram BMP, LIVR #### [facility] ([id number]) [address], [address] [place], [place] [address]Cxqzg panelon 19-80-0298Fxkuqgr [Mass/Vol]4.4 g/dL3.2 - 5.3 g/dL [facility]ica Health SystemALP [Catalytic activity/Vol]65 U/L39 - 130 U/LPrSt. Anthony Hospital Health SystemALT No additional P-5'-P [Catalytic activity/Vol]18 U/L0 - 31 U/L [facility] SystemAST [Catalytic activity/Vol]16 U/L0 - 41 U/LPrEast Ohio Regional Hospital SystemBilirubin [Mass/Vol]0.5 mg/dL0.3 - 1.2 mg/dLBerger Hospital Bilirubin.direct [Mass/Vol]0.2 mg/dL0.0 - 0.4 mg/dLBlanchard Valley Health System System Protein [Mass/Vol]6.6 g/dL6.0 - 8.0 g/dLBlanchard Valley Health System SystemNo Panel Informationon 59-01-2704QgtCxsmrh Health SystemXR Chest PA and Lateralon 57-01-4401YuuddjUmesh Bolaños MD - 09/28/2023 Procedure: Chest x-ray performed Number of views:2 History:Preop asthma Comparison:None Findings: The heart and lungs show no acute findings, and the mediastinum and manasa are grossly negative . Impression: 1. No acute change. Finalized by Umesh Bolaños MD on 09/28/2023 10:05 AM [facility]ARS [employer] Technology Formerly [facility] Annapolis HospitalRadiology Study observation (narrative)Wadsworth-Rittman HospitalPrecise SoftwareXR Chest PA and LateralOrdered By: Umesh Bolaños on 86-12-1875NaxVjflloVeterans Health Administration Work Phone: Basic Metab w/rfx MGon 69-78-5210Mjzfi gap [Moles/Vol] 8 mmol/LLow9-17Galion HospitalComment on above:Performed By: #### BMPX, CDP #### [employer] [address] [place] [address] Copy Chief: CHUY Johnsonalcium [Mass/Vol]8.3 mg/dLLow8.6-10.4Gal[facility] HospitalComment on above:Performed By: #### BMPX, CDP #### [employer] [address] [place] [address] Copy Chief: CHUY Johnsonhloride [Moles/Vol]107 mmol/WFsxlaw83-150OhyvqGalion HospitalComment on above:Performed By: #### BMPX, CDP #### [address] [place] [address] Copy Chief: Quirino Valladares MDCO2 [Moles/Vol]24 mmol/YQntxom63-20ZpomcGalion HospitalComment on above:Performed By: #### BMPX, CDP #### [address] [place] [address] Copy Chief: Quirino Valladares MDCreatinine [Mass/Vol]0.9 mg/dLNormal0.5-0.9[facility] HospitalComment on above:Performed By: #### BMPX, CDP #### [facility] HospitalMDdatacor [address] [place] [address] Copy Chief: Quirino Valladares MDGFR/1.73 sq M.predicted among non-blacks MDRD (S/P/Bld) [Vol rate/Area]mL/min/{1.73_m2}Normal>60Gal[facility] HospitalComment on above:Result Comment: These results are not [...] tubular secretion.Performed By: #### BMPX, CDP #### [facility] HospitalMDdatacor [address] [place] [address] Copy Chief: Quirino Valladares MDGlucose [Mass/Vol]88 mg/wOBpulud84-01NzbjsSt. Joseph's HospitalComment on above:Performed By: #### BMPX, CDP #### [facility] HospitalMDdatacor [address] [place] [address] Copy Chief: Quirino Valladares MDPotassium [Moles/Vol]3.6 mmol/LLow3.7-5.3MSt. Joseph's HospitalComment on above:Performed By: #### BMPX, CDP #### [facility] [address] [place] [address] Copy Chief: Quirino Valladares MDSodium [Moles/Vol]139 mmol/[id number] HospitalComment on above:Performed By: #### BMPX, CDP #### [facility] [address] [place] [address] Copy Chief: Quirino Valladares MDUrea nitrogen [Mass/Vol]9 mg/dLNormal6-20Gal[facility] HospitalComment on above:Performed By: #### BMPX, CDP #### [facility] [address] [place] [id number] Copy Chief: HARRISON Johnson with Diffon [id number]. Basophil0.04 k/uL Normal0.00-0.20Galion HospitalComment on above:Performed By: #### BMPX, CDP #### [facility] [address] [place] [address] Copy Chief: Marta Johnson.Imm.Granulocyte<0.85Vnsecr4.00-0.30Galion HospitalComment on above:Performed By: #### BMPX, CDP #### [facility] [address] [place] [address] Copy Chief: Marta Johnson.Neutrophil (Seg)2.46 k/uLNormal1.80-8.00 Galion HospitalComment on above:Performed By: #### BMPX, CDP #### [facility] [address] [place] [address] Copy Chief: Quirino Valladares MDBasophils/100 WBC (Bld)1 %Normal0-2MSt. Joseph's HospitalComment on above:Performed By: #### BMPX, CDP #### [facility] [address] [place] [address] Copy Chief: Quirino Valladares MDEosinophils (Bld) [#/Vol]0.11 10*3/uLNormal 0.00-0.44Galion HospitalComment on above:Performed By: #### BMPX, CDP #### [facility] [address] [place] [id number] Copy Chief: WM Johnsonosinophils/100 WBC (Bld)2 %Normal1-4Galion HospitalComment on above:Performed By: #### BMPX, CDP #### [facility] [address] [place] [id number] Copy Chief: Quirino Valladares MDErythrocyte distribution width (RBC) [Ratio]11.9 %Yxsjqe14.8-14.4Galion HospitalComment on above:Performed By: #### BMPX, CDP #### [facility] [address] [place] [id number] Copy Chief: Quirino Valladares MDHematocrit (Bld) [Volume fraction]36.8 %Normal 36.3-47.1MSt. Joseph's HospitalComment on above:Performed By: #### BMPX, CDP #### [facility] [address] [place] [id number] Copy Chief: Quirino Valladares MDHemoglobin (Bld) [Mass/Vol]12.6 g/dLNormal 11.9-15.1MSt. Joseph's HospitalComment on above:Performed By: #### BMPX, CDP #### [facility] [address] [place] [address] Copy Chief: Schuyler Johnsonture granulocytes/100 WBC (Bld)0 %Normal0 [facility] HospitalComment on above:Performed By: #### BMPX, CDP #### [facility] [address] [place] [address] Copy Chief: Quirino Valladares MDLymphocytes (Bld) [#/Vol]2.61 10*3/uLNormal 1.20-5.20[facility] HospitalComment on above:Performed By: #### BMPX, CDP #### [facility] [address] [place] [address] Copy Chief: Roland Johnsonmphocytes/100 WBC (Bld)45 %Zmmsse82-14CtvbxGalion HospitalComment on above:Performed By: #### BMPX, CDP #### [facility] [address] [place] [address] Copy Chief: HESHAM JohnsonCH (RBC) [Entitic mass]29.6 alJjufgl56.2-33.5 [facility] HospitalComment on above:Performed By: #### BMPX, CDP #### [facility] [address] [place] [address] Copy Chief: HESHAM JohnsonCHC (RBC) [Mass/Vol]34.2 g/hHEiirke94.4-34.8 [facility] HospitalComment on above:Performed By: #### BMPX, CDP #### [address] [address] Copy Chief: HESHAM JohnsonCV (RBC) [Entitic vol]86.4 uAQfmqnw78.6-102.9 [facility] HospitalComment on above:Performed By: #### BMPX, CDP #### [address] [address] Copy Chief: HESHAM Johnsononocytes (Bld) [#/Vol]0.52 10*3/uLNormal 0.10-1.40[facility] HospitalComment on above:Performed By: #### BMPX, CDP #### [facility] [address] [place] [address] Copy Chief: HESHAM Johnsononocytes/100 WBC (Bld)9 %High2-8[facility] HospitalComment on above:Performed By: #### BMPX, CDP #### [address] [address] Copy Chief: Quirino Valladares MDNeutrophil (Seg)43 %Mkktkj37-66PvswhGalion HospitalComment on above:Performed By: #### BMPX, CDP #### [facility] [address] [place] [address] Copy Chief: Quirino Valladares MDNRDILLON Automated0.0 per 100 WBCNormal0.0[facility] HospitalComment on above:Performed By: #### BMPX, CDP #### [facility] [address] [place] [address] Copy Chief: Sonja Johnson mean volume (Bld) [Entitic vol]12.3 fL Normal8.1-13.5Gal[facility] HospitalComment on above:Performed By: #### BMPX, CDP #### [address] [address] Copy Chief: Kayli Johnsontemarco (Bld) [#/Vol]210 10*3/yQEyxcpz984-223 [facility] HospitalComment on above:Performed By: #### BMPX, CDP #### [place] [phone] Copy Chief: Quirino Valladares MDRBC (Bld) [#/Vol]4.26 10*6/uLNormal3.95-5.11 [facility] HospitalComment on above:Performed By: #### BMPX, CDP #### [address] [address] Copy Chief: KALPANA Johnson (Bld) [#/Vol]5.8 10*3/uLNormal4.5-13.5[facility] HospitalComment on above:Performed By: #### BMPX, CDP #### [facility] [address] [place] [address] Copy Chief: Jessie Johnson Metab w/rfx MGon 38-29-6536Bxwgtdcpb [Moles/Vol]3.5 mmol/LLow3.7-5.3MSt. Joseph's HospitalComment on above: Performed By: #### CDP, BMPX, MG #### [facility] [address] [place] [address] Copy Chief: Quirino Valladares MDAnion gap [Moles/Vol]8 mmol/LLow9-17[facility] HospitalComment on above:Performed By: #### CDP, BMPX, MG #### [facility] [address] [place] [address] Copy Chief: Quirino Valladares MDCalcium [Mass/Vol]8.8 mg/dLNormal8.6-10.4[facility] HospitalComment on above:Performed By: #### CDP, BMPX, MG #### [facility] [address] [place] [address] Copy Chief: Quirino Valladares MDChloride [Moles/Vol]105 mmol/EBcupls85-279AmqanGalion HospitalComment on above:Performed By: #### CDP, BMPX, MG #### [facility] [address] [place] [address] Copy Chief: Quirino Valladares MDCO2 [Moles/Vol]23 mmol/QAtlxyv07-96AfoooGalion HospitalComment on above:Performed By: #### CDP, BMPX, MG #### [facility] [address] [place] [address] Copy Chief: CHUY Johnsonreatinine [Mass/Vol]0.8 mg/dLNormal0.5-0.9Gal[facility] HospitalComment on above:Performed By: #### CDP, BMPX, MG #### [facility] [address] [place] [address] Copy Chief: Quirino Valladares MDGFR/1.73 sq M.predicted among non-blacks MDRD (S/P/Bld) [Vol rate/Area]mL/min/{1.73_m2}Normal>60Gal[facility] HospitalComment on above:Result Comment: These results are not [...] that affects renal tubular secretion.Performed By: #### CDP BMPX, MG #### [facility] [address] [place] [address] Copy Chief: Quirino Valladares MDGlucose [Mass/Vol]73 mg/iOJicbfd08-55MnrswSt. Joseph's HospitalComment on above:Performed By: #### CDP BMPX, MG #### [facility] [address] [place] [address] Copy Chief: ELIECER Johnsonodium [Moles/Vol]136 mmol/BJyzyra773-731MwfblGalion HospitalComment on above:Performed By: #### CDP BMPX, MG #### [facility] [address] [place] [address] Copy Chief: Quirino Valladares MDUrea nitrogen [Mass/Vol]7 mg/dLNormal6-20[facility] HospitalComment on above:Performed By: #### CDP, BMPX, MG #### [facility] [address] [place] [address] Copy Chief: Quirino Valladares [facility] with Diffon 15-79-5040Tgk. Basophil0.03 k/uL Normal0.00-0.20[facility] HospitalComment on above:Performed By: #### CDP, BMPX, MG #### [facility] [address] [place] [address] Copy Chief: Marta Johnson.Imm.Granulocyte<0.92Zmuqms6.00-0.30[facility] HospitalComment on above:Performed By: #### CDP, BMPX, MG #### [address] [address] Copy Chief: Marta Johnson.Neutrophil (Seg)2.17 k/uLNormal1.80-8.00 [facility] HospitalComment on above:Performed By: #### CDP, BMPX, MG #### [place] [address] Copy Chief: Quirino Valladares MDBasophils/100 WBC (Bld)1 %Normal0-2MSt. Joseph's HospitalComment on above:Performed By: #### CDP, BMPX, MG #### [place] [address] Copy Chief: Quirino Valladares MDEosinophils (Bld) [#/Vol]0.08 10*3/uLNormal 0.00-0.44[facility] HospitalComment on above:Performed By: #### CDP, BMPX, MG #### [place] [address] Copy Chief: Quirino Valladares MDEosinophils/100 WBC (Bld)2 %Normal1-4[facility] HospitalComment on above:Performed By: #### CDP, BMPX, MG #### [place] [address] Copy Chief: Quirino Valladares MDErythrocyte distribution width (RBC) [Ratio]11.9 %Oqtkwt74.8-14.4[facility] HospitalComment on above:Performed By: #### CDP, BMPX, MG #### [place] [address] Copy Chief: Quirino Valladares MDHematocrit (Bld) [Volume fraction]40.0 %Normal 36.3-47.1MSt. Joseph's HospitalComment on above:Performed By: #### CDP, BMPX, MG #### [facility] [address] [place] [address] Copy Chief: Quirino Valladares MDHemoglobin (Bld) [Mass/Vol]13.6 g/dLNormal 11.9-15.1MSt. Joseph's HospitalComment on above:Performed By: #### CDP, BMPX, MG #### [address] [address] Copy Chief: Quirino Valladares MDImmature granulocytes/100 WBC (Bld)0 %Normal0 [facility] HospitalComment on above:Performed By: #### CDP, BMPX, MG #### [address] [address] Copy Chief: Quirino Valladares MDLymphocytes (Bld) [#/Vol]1.69 10*3/uLNormal 1.20-5.20[facility] HospitalComment on above:Performed By: #### CDP, BMPX, MG #### [address] [address] Copy Chief: Roland Johnsonmphocytes/100 WBC (Bld)38 %Ubasyt14-50OdjqnGalion HospitalComment on above:Performed By: #### CDP, BMPX, MG #### [address] [address] Copy Chief: HESHAM JohnsonCH (RBC) [Entitic mass]29.6 mvCofkxf64.2-33.5 [facility] HospitalComment on above:Performed By: #### CDP, BMPX, MG #### [address] [address] Copy Chief: HESHAM JohnsonCHC (RBC) [Mass/Vol]34.0 g/jUToxkzw93.4-34.8 [facility] HospitalComment on above:Performed By: #### CDP, BMPX, MG #### [facility] [address] [place] [address] Copy Chief: HESHAM JohnsonCV (RBC) [Entitic vol]87.0 iLFfnkxj89.6-102.9 [facility] HospitalComment on above:Performed By: #### CDP, BMPX, MG #### [facility] [address] [place] [address] Copy Chief: HESHAM Johnsononocytes (Bld) [#/Vol]0.47 10*3/uLNormal 0.10-1.40[facility] HospitalComment on above:Performed By: #### CDP, BMPX, MG #### [place] [address] Copy Chief: HESHAM Johnsononocytes/100 WBC (Bld)11 %High2-8[facility] HospitalComment on above:Performed By: #### CDP, BMPX, MG #### [facility] [address] [place] [address] Copy Chief: Jade Johnsonutrophil (Seg)48 %Ylgbux72-34JbnnrGalion HospitalComment on above:Performed By: #### CDP, BMPX, MG #### [facility] [address] [place] [address] Copy Chief: Quirino Valladares MDNRBC Automated0.0 per 100 WBCNormal0.0[facility] HospitalComment on above:Performed By: #### CDP, BMPX, MG #### [facility] [address] [place] [address] Copy Chief: BILL Johnsonlatelet mean volume (Bld) [Entitic vol]11.8 fL Normal8.1-13.5[facility] HospitalComment on above:Performed By: #### CDP, BMPX, MG #### [facility] [address] [place] [address] Copy Chief: Alistair Johnson ([facility]) [#/Vol]214 10*3/aUBphbfj019-053 [facility] HospitalComment on above:Performed By: #### CDP, BMPX, MG #### [facility] [address] [place] [address] Copy Chief: HECTOR Johnson ([facility]) [#/Vol]4.60 10*6/uLNormal3.95-5.11 [facility] HospitalComment on above:Performed By: #### CDP, BMPX, MG #### [facility] [address] [place] [address] Copy Chief: KALPANA Johnson ([facility]) [#/Vol]4.4 10*3/uLLow4.5-13.5[facility] HospitalComment on above:Performed By: #### CDP, BMPX, MG #### [facility] [address] [place] [address] Copy Chief: Quirino Valladares MDLamotrigineon 76-25-7816Fkemowqwhmh<1.0Low 3.0-15.0Gal[facility] HospitalComment on above:Result Comment: Neither a therapeutic [...] of lamotrigine may be needed.Performed By: #### LAMO #### [facility] [address] [place] [address] Copy Chief: Mohsen Johnsongnesiumon 26-07-8900Xpkwofryr [Mass/Vol]2.0 mg/dLNormal1.6-2.6[facility] HospitalComment on above:Performed By: #### CDP, BMPX, MG #### [facility] [place] [address]608 Copy Chief: HECTOR JohnsonAD - Ultrasound Reporton [id number] - Ultrasound [id number]#1.00TIFMercy Health [address] Joseph Warren HospitalPhysician Referralon 90-65-7666Ycottloau Referral [id number]#1.00M[facility] HospitalCBC W MANUAL DIFFon [id number]Fpz [facility] HospitalComment on above:Performed By: #### DOUG #### [facility] [address] [place] [address] Dr. Juan Jose Dangelo LYMPH #0.36 103/ulNormalThSouthview Medical CenterComment on above:Performed By: #### DOUG #### [facility] [address] [place] [address] Dr. Juan Jose Dangelo LYMPH %4 %NormalThe [facility]S HospitalComment on above: Performed By: #### DOUG #### [facility] [address] [place] [address] Dr. Juan Jose Shepard #0.0 103/ulNormal0.0-0.3The [facility]S HospitalComment on above:Performed By: #### DOUG #### [facility] [address] [place] [address] Dr. Juan Jose Shepard %0 %Normal0-5The [facility]S HospitalComment on above:Performed By: #### DOUG #### [facility] [address] [place] [address] Dr. Juan Jose Loza #0.09 103/ulNormal0.00-0.10The [facility]S HospitalComment on above:Performed By: #### CBCJESSICA #### [facility] [address] [place] [address] Dr. Juan Jose Loza %1.0 %Normal0.2-2.0The [facility]S HospitalComment on above: Performed By: #### CBCJESSICA #### [facility] [address] [place] [address] Dr. Juan Jose Gunderson #NormalThe Stafford Springs HospitalComment on above:Performed By: #### CBCJESSICA #### [facility] [address] [place] [address] Dr. Juan Jose Gunderson %NormalThe [facility]S HospitalComment on above:Performed By: #### DOUG #### [facility] [address] [place] [address] Dr. Juan Jose BandaCORRECTED WBCNormal4.0-11.0The [facility]S HospitalCommclaren caro region on above: Performed By: #### DOUG #### [facility] [address] [place] [address] Dr. Juan Jose Lewis #0.18 103/ulNormal0.00-0.70The [facility]S HospitalComment on above:Performed By: #### DOUG #### [facility] [address] [place] [address] Dr. Juan Jose Lewis%2.0 %Normal0.9-7.0The [facility] HospitalComment on above: Performed By: #### DOUG #### [facility] [address] [place] [address] Dr. Juan Jose BandaHCT34.0 %Critically low36.0-48.0The [facility]S HospitalComment on above:Performed By: #### CBCJESSICA #### [facility] [address] [place] [address] Dr. Juan Jose BandaHGB11.8 g/dlCritically low12.0-16.0The [facility] HospitalCommclaren caro region on above:Performed By: #### CBCJESSICA #### [facility] [address] [place] [address] Dr. Juan Jose Denson #1.55 103/ulNormal1.20-3.80The [facility]S HospitalComment on above:Performed By: #### DOUG #### [facility] [address] [place] [address] Dr. Juan Jose MartinHM%17.0 %Critically low20.5-60.0The [facility] HospitalComment on above:Performed By: #### DOUG #### [facility] [address] [place] [address] Dr. Juan Jose ToureH29.0 avMhvauw58.7-34.0The [facility] HospitalComment on above: Performed By: #### DOUG #### [facility] [address] [place] [address] Dr. Juan Jose ToureHC34.7 g/fdJyhpwg06.9-35.2The [facility] HospitalComment on above:Performed By: #### DOUG #### [facility] [address] [place] [address] Dr. Juan Jose ToureV83.5 nQZvxdle83.0-99.0The [facility] HospitalComment on above: Performed By: #### DOUG #### [facility] [address] [place] [address] Dr. Juan Jose GrayOCYTE #NormalThe [facility] HospitalComment on above: Performed By: #### DOUG #### [facility] [address] [place] [address] Dr. Juan Jose GrayOCYTE %NormalThe [facility]S HospitalComment on above: Performed By: #### DOUG #### [facility] [address] [place] [address] Dr. Juan Jose BandaMICROCYTOSISSLIGHTNoOhioHealth Southeastern Medical Centere [facility] HospitalComment on above: Performed By: #### DOUG #### [facility] [address] [place] [address] Dr. Juan Jose Marshall#1.00 103/ulCritically high0.30-0.80The [facility] Comment on above:Performed By: #### DOUG #### [facility] [address] [place] [address] [address] Juan Jose Marshall%11.0 %Normal1.7-12.0The [facility] HospitalComment on above: Performed By: #### CBCJESSICA #### [facility] [address] [place] [address] Dr. Juan Jose HilarioV11.2 fLNormal9.5-13.5The [facility] HospitalComment on above: Performed By: #### CBCMAN #### [facility] [address] [place] [address] Dr. Juan Jose Ashley #NormalWayne Healthcare Main CampusComment on above:Performed By: #### DOUG #### [facility] [address] [place] [address] Dr. Juan Jose MccartneyOCYTE %NormalWayne Healthcare Main CampusComment on above:Performed By: #### DOUG #### [facility] [address] [place] [address] Dr. Juan Jose BandaNRBCNormalThe [facility]S HospitalComment on above:Performed By: #### DOUG #### [facility] [address] [place] [address] Dr. Juan Jose BandaPLT180 103/dyGaabdd587-272Dmr [facility] HospitalCommclaren caro region on above: Performed By: #### DOUG #### [facility] [address] [place] [address] Dr. Juan Jose BandaRBC4.07 106/ulCritically low4.20-5.40The [facility]S HospitalCommclaren caro region on above:Performed By: #### CBCJESSICA #### [facility] [address] [place] [address] Dr. Juan Jose BandaRDW11.9 %Vhmxmn93.0-15.0The [facility] HospitalComment on above: Performed By: #### CBCJESSICA #### [facility] [address] [place] [address] Dr. Juan Jose Pierce #5.92 103/ulNormal1.40-6.50The [facility] HospitalComment on above:Performed By: #### CBCJESSICA #### [facility] [address] [place] [address] Dr. Juan Jose Pierce %65.0 %Jqdjrl42.0-75.0[facility] on above: Performed By: #### CBCMAN #### [facility] [address] [place] [address] Dr. Juan Jose BandaWBC9.1 103/ulNormal4.0-11.0Way[facility] Healthcare Main CampusCommclaren caro region on above: Performed By: #### CBCMAN #### [facility] [address] [place] [address] Dr. Juan Jose BandaDRUG SCREEN RAPID (URINE)on [id number]V [facility] Healthcare Main CampusCommclaren caro region on above:Performed By: #### URCX #### [facility] [address] [place] [address] Dr. Juan Jose CuevasNegativeNormalNEGWexner Medical CenterCommclaren caro region on above: Performed By: #### URCX #### [facility] [address] [place] [address] Dr. Juan Jose BandaBUPNegativeNormalNEGRiverview Health Institute on above: Performed By: #### URCX #### [facility] [address] [place] [address] Dr. Juan Jose BandaBZONegativeNormalNEGWexner Medical CenterCommclaren caro region on above: Performed By: #### URCX #### [facility] [address] [place] [address] Dr. Juan Jose ConnellCNegativeNormalNEGWexner Medical CenterCommclaren caro region on above: Performed By: #### URCX #### [facility] [address] [place] [address] Dr. Juan Jose GarridoPremier Health Miami Valley Hospital NorthCommclaren caro region on above: Result Comment: AMP (Amphetamine): 500ng/mL, BAR (Barbituates): 200 ng/mL, BZO (Benzodiazepines): 150 ng/mL, BUP (Buprenorphine): 10 ng/mL, LUCIO (Cocaine): 150 ng/mL, mAMP (Methamphetamine): 500 ng/mL, MTD (Methadone): 200 ng/mL, OPI (Opiates): 100 ng/mL, OXY (Oxycodone): 100 ng/mL, PCP (Phencyclidine): 25 ng/mL, PPX (Propoxyphene): 300 ng/mL, THC (Cannabinoids): 50 ng/mL, TCA (Trycyclic Antidepressants): 300 ng/mLPerformed By: #### URCX #### [facility] [address] [place] [address] Dr. Juan Jose BandaDRUG CUT HEADERDRUG CLASS TEST SYSTEM CUT-OFF CONCENTRATIONS ARE FOLLOWS:NormalSelect Medical OhioHealth Rehabilitation Hospital - Dublinment on above:Performed By: #### URCX #### [facility] [address] [place] [address] Dr. Juan Jose BandamAMPNegativeNormalNEGATIVEWayne Healthcare Main CampusComment on above: Performed By: #### URCX #### [facility] [address] [place] [address] Dr. Juan Jose BandaMTDNegativeNormalNEGATIVESelect Medical [facility] Rehabilitation Hospital - Dublinment on above: Performed By: #### URCX #### [facility] [address] [place] [address] Dr. Juan Jose LevineINegativeNormalNEGATIVEWayne Healthcare Main CampusCommclaren caro region on above: Performed By: #### URCX #### [facility] [address] [place] [address] Dr. Juan Jose BandaOXYNegativeNormalNEGATIVEWayne Healthcare Main CampusComment on above: Performed By: #### URCX #### [facility] [address] [place] [address] Dr. Juan Jose BandaPCPNegativeNormalNEGATIVEWayne Healthcare Main CampusComment on above: Performed By: #### URCX #### [facility] [address] [place] [address] Dr. Juan Jose BandaPPXNegativeNormalNEGATIVEWayne Healthcare Main CampusComment on above: Performed By: #### URCX #### [facility] [address] [place] [address] Dr. Juan Jose BandaTCANegativeNormalNEGWexner Medical CenterComment on above: Performed By: #### URCX #### [facility] [address] [place] [address] Dr. Juan Jose LeegativeNormalNEGWexner Medical CenterComment on above: Performed By: #### URCX #### [facility] [address] [address] [address] Juan Jose BandaTYPE AND SCREENon [id number] AND SCREENNegativeOhioHealth Nelsonville Health CenterComment on above:Performed By: #### CBCMAN #### [facility] [address] [place] [address] Dr. Juan Jose Narayan PREG BIOPHY W NON STRESSon [id number] PREG BIOPHY W NON STRESSEXAMINATION: US PREG [...] Electronically authenticated by: YO MESA Date: 2022-12-31 17:02[facility] Health CenterUS PREG UMBILICAL ARTERYon [id number] PREG UMBILICAL ARTERY EXAMINATION: US PREG UMBILICAL [...] Electronically authenticated by: YO MESA Date: 2022-12-31 17:18NoCleveland Clinic Hillcrest HospitalGROUP B STREP CULTUREon 12-28-2022S. agalactiae Ag Ql (Unsp spec)Culture Observations: NEGATIVE FOR GROUP B STREPTOCOCCUS.NormalWayne Healthcare Main CampusComment on above: Performed By: #### GBSCX #### [facility] [address] [address] [address] Juan Jose Narayan PREG BIOPHY W NON STRESSon [id number] PREG BIOPHY W NON STRESSEXAMINATION: US PREG [...] Electronically authenticated by: LUISA ARCHIBALD Date: 2022-12-24 11:23NormProvidence HospitalUS PREG UMBILICAL ARTERYon [id number] PREG UMBILICAL ARTERY EXAMINATION: US PREG UMBILICAL [...] Electronically authenticated by: LUISA ARCHIBALD Date: 2022-12-24 11:58NoCleveland Clinic Hillcrest HospitalUA (CLEAN/CATCH) CARDIOLOGY PHYSICIAN ASSISTANT/MICRO IF IND.on [id number] Ql (U) NegativeNormalNEGATIVEWayne Healthcare Main CampusComment on above:Performed By: #### CBCMAN #### [facility] [address] [address] [address] Juan Jose BandaClarity (U)CLEARNormalCLEARWayne Healthcare Main CampusComment on above: Performed By: #### DOUG #### [facility] [address] [address] [address] Juan Jose Connelllor (U)LT. YELLOWNormalYELLOWWayne Healthcare Main CampusComment on above:Performed By: #### DOUG #### [facility] [address] [address] [address] Juan Jose BandaGlucose Ql (U)NegativeNormalNEGATIVEWayne Healthcare Main CampusComment on above:Performed By: #### DOUG #### [facility] [address] [address] [address] Juan Jose BandaHemoglobin Ql (U)NegativeNormalNEGWexner Medical Center Comment on above:Performed By: #### DOUG #### [facility] [address] [place] [address] Dr. Juan Jose BandaKetones Ql (U)NegativeNormalNEGATIVEWayne Healthcare Main CampusComment on above:Performed By: #### DOUG #### [facility] [address] [address] [address] Juan Jose BandaLEUKOCYTESSMALLAbnormalNEGATIVEWayne Healthcare Main CampusComment on above:Performed By: #### DOUG #### [facility] [address] [place] [address] Dr. Juan Jose BandaNitrite Ql (U)NegativeNormalNEGATIVEWayne Healthcare Main CampusComment on above:Performed By: #### DOUG #### [facility] [address] [address] [address] Juan Jose BandapH (U)6.0 [pH]Normal5-9Wayne Healthcare Main CampusComment on above: Performed By: #### DOUG #### [facility] [address] [address] [address] Juan Jose BandaSPEC GRAVITY<=1.072Bandhlvo9.005-<=1.025[facility] Comment on above:Performed By: #### DOUG #### [facility] [address] [address] [address] Juan Jose BandaUA PROTEINNegativeNormalNEGATIVE/ TRACEWayne Healthcare Main Campus Comment on above:Performed By: #### DOUG #### [facility] [address] [address] [address] Juan Jose PEREZ INDINDICATEDOhioHealth Nelsonville Health CenterComment on above: Performed By: #### DOUG #### [facility] [address] [address] [address] Juan Jose Ewing Qn (U)0.2 {Tyler'U}/dLNormal0.2 - 1.0The [facility]S HospitalComment on above:Performed By: #### DOUG #### [facility] [address] [address] [address] Juan Jose ALBRECHT ONLYon [id number] SEENNormalNONE SEENWayne Healthcare Main CampusComment on above:Performed By: #### DOUG #### [facility] [address] [address] [address] Juan Jose Batres identified Cx Nom (U)NOT INDICATEDNoCleveland Clinic Hillcrest HospitalComment on above:Performed By: #### DOUG #### [facility] [address] [address] [address] Juan Jose Dao SEENNormalNONE SEENSelect Medical OhioHealth Rehabilitation Hospital - Dublinment on above:Performed By: #### DOUG #### [facility] [address] [address] [address] Juan Jose Santoyo LM Nom (Urine sed)NONE SEENNormalNONE SEENDoctors [facility] on above:Performed By: #### DOUG #### [facility] [address] [address] [address] Ingram ChangEpithelial cells LM Ql (Urine sed)MANYAbnormalNONE SEEN /RAREThe [facility] HospitalCommclaren caro region on above:Performed By: #### DOUG #### [facility] [address] [address] [address] Juan Jose Tolbert SEENNormalNONE SEENWayne Healthcare Main CampusCommclaren caro region on above:Performed By: #### DOUG #### [facility] [address] [place] [address] Dr. Juan Jose BandaRBCNONE SEENAbnormal0-2The [facility]S HospitalComment on above: Performed By: #### CBCMAN #### [facility] [address] [place] [address] Dr. Juan Jose BandaWBC2-5AbnormalNONE SEENThe [facility]S HospitalComment on above: Performed By: #### CBCJESSICA #### [facility] [address] [place] [address] Dr. Juan Jose Narayan PREG BIOPHY W NON STRESSon [id number] PREG BIOPHY W NON STRESSEXAM: US PREG [...] Electronically authenticated by: DALLIN HERNANDEZ Date: 2022-12-22 20:55NoCleveland Clinic Hillcrest HospitalUS PREG PLACENTAon [id number] PREG PLACENTAEXAM: US PREG PLACENTA HISTORY: Abdominal [...] Electronically authenticated by: DALLIN HERNANDEZ Date: 2022-12-22 20:52NoC[facility] Clinic [facility] HospitalUS PREG GROWTHon [id number] PREG GROWTHEXAMINATION: US PREG GROWTH HISTORY: Uterine [...] Electronically authenticated by: LUISA ARCHIBALD Date: 2022-12-20 15:23[facility] HospitalCULTURE URINEon [id number] URINECulture Observations: LIGHT GROWTH OF MIXED GENITAL CHEVY. NO POTENTIAL PATHOGENS SEEN.NormalThe [facility]S HospitalComment on above:Performed By: #### URCX #### [facility] [address] [place] [address] Dr. Juan Jose Hinton (CLEAN/CATCH) CARDIOLOGY PHYSICIAN ASSISTANT/MICRO IF IND.on [id number] Ql (U) NegativeNormalNEGATIVEThe [facility]S HospitalComment on above:Performed By: #### HIV12 #### [facility] [address] [place] [address] Dr. Juan Jose Kumararity (U)CLEARNormalCLEARThe [facility]S HospitalComment on above: Performed By: #### HIV12 #### [facility] [address] [place] [address] Dr. Yilan ChangColor (U)LT. YELLOWNormalYELLOWWayne Healthcare Main CampusComment on above:Performed By: #### HIV12 #### [facility] [address] [address] [address] Juan Jose BandaGlucose Ql (U)NegativeNormalNEGATIVEWayne Healthcare Main CampusComment on above:Performed By: #### HIV12 #### [facility] [address] [address] [address] Juan Jose BandaHemoglobin Ql (U)NegativeNormalNEGWexner Medical Center Comment on above:Performed By: #### HIV12 #### [facility] [address] [address] [address] Juan Jose BandaKetones Ql (U)NegativeNormalNEGATIVEWayne Healthcare Main CampusComment on above:Performed By: #### HIV12 #### [facility] [address] [place] [address] Dr. Juan Jose BandaLEUKOCYTESMODERATEAbnormalNEGWexner Medical CenterComment on above:Performed By: #### HIV12 #### [facility] [address] [place] [address] Dr. Juan Jose BandaNitrite Ql (U)NegativeNormalNEGWexner Medical CenterComment on above:Performed By: #### HIV12 #### [facility] [address] [place] [address] Dr. Juan Jose BandapH (U)6.5 [pH]Normal5-9Wayne Healthcare Main CampusComment on above: Performed By: #### HIV12 #### [facility] [address] [place] [address] Dr. Juan Jose BandaSPEC GRAVITY<=1.896Qqdeueyu8.005-<=1.025[facility] Comment on above:Performed By: #### HIV12 #### [facility] [address] [place] [address] Dr. Juan Jose BandaUA PROTEINNegativeNormalNEGATIVE/ TRACEWayne Healthcare Main Campus Comment on above:Performed By: #### HIV12 #### [facility] [address] [place] [address] Dr. Juan Jose Anne MICRO INDINDICATEDOhioHealth Nelsonville Health CenterComment on above: Performed By: #### HIV12 #### [facility] [address] [place] [address] Dr. Juan Jose Ewing Qn (U)0.2 {Tyler'U}/dLNormal0.2 - 1.0The [facility]S HospitalComment on above:Performed By: #### HIV12 #### [facility] [address] [place] [address] Dr. Juan Jose France MICROSCOPIC ONLYon [id number]Q SEEN [facility] Main CampusComment on above:Performed By: #### RPRQ #### [facility] [address] [place] [address] Dr. Juan Jose Batres identified Cx Nom (U)INDICATEDOhioHealth Nelsonville Health CenterComment on above:Performed By: #### RPRQ #### [facility] [address] [place] [address] Dr. Juan Jose Dao SEENNormalNONE SEENWayne Healthcare Main CampusCommclaren caro region on above:Performed By: #### RPRQ #### [facility] [address] [place] [address] Dr. Juan Jose Stevensonystals LM Nom (Urine sed)NONE SEENNormalNONE SEENWayne Healthcare Main CampusCommclaren caro region on above:Performed By: #### RPRQ #### [facility] [address] [place] [address] Dr. Ingram ChangEpithelial cells LM Ql (Urine sed)MODERATEAbnormalNONE SEEN /RARE The [facility] HospitalCommclaren caro region on above:Performed By: #### RPRQ #### [facility] [address] [place] [address] Dr. Juan Jose FelipeE SEENNormalNONE SEENWayne Healthcare Main CampusCommclaren caro region on above:Performed By: #### RPRQ #### [facility] [address] [place] [address] Dr. Juan Jose McfaddenZvfehSGZ5-1Modyeevr7-1Unw [facility] on above:Performed By: #### RPRQ #### [facility] [address] [place] [address] Dr. Juan Jose BandaWBC5-10AbnormalNONE SEENThe [facility] [place] [facility] on above: Performed By: #### RPRQ #### [facility] [address] [place] [address] Dr. Juan Jose AbdiASTPRESENTAbnormalNONE SEENThe Berger Hospitalment on above:Result Comment: rarePerformed By: #### RPRQ #### [facility] [address] [place] [address] Dr. Juan Jose Saravia GUSTAVO ADMITon [id number] [Catalytic activity/Vol]33 U/L Pjoibp69-107Ubv [facility] on above:Performed By: #### SEDR #### [facility] [address] [place] [address] Dr. Juan Jose Knowles.MB [Mass/Vol]ng/mLNormal<=3.60The [facility] on above:Performed By: #### SEDR #### [facility] [address] [place] [address] Dr. Juan Jose Gil<4.0Jvuqky3.0-51.3The [facility] on above: Result Comment: CUT-OFF POINTS HAVE BEEN ESTABLISHED BASED ON THE FOURTH UNIVERSAL DEFINITIONS OF MYOCARDIAL INFARCTION. THE UPPER REFERENCE LIMIT (URL) OF TROPONIN, DEFINED THE 99TH PERCENTILE OF cTnI DISTRIBUTION IN A REFERENCE POPULATION, HAS BEEN CONFIRMED THE DECISION THRESHOLD FOR MT DIAGNOSIS.Performed By: #### SEDR #### [facility] [address] [place] [address] Dr. Juan Jose BatemanO17 ng/mLNormal9-82The [facility] on above: Performed By: #### SEDR #### [facility] [address] [place] [address] Dr. Juan Jose Rosado AUTO DIFFon [id number] #0.0 103/ulNormal0.0-0.1The [facility] HospitalComment on above:Performed By: #### URCX #### [facility] [address] [place] [address] Dr. Juan Jose BandaBasophils/100 WBC (Bld)0.2 %Normal0.2-2.0[facility] Comment on above:Performed By: #### URCX #### [facility] [address] [place] [address] Dr. Juan Jose Sims #0.0 103/ulNormal0.0-0.7The [facility]S HospitalComment on above: Performed By: #### URCX #### [facility] [address] [place] [address] Dr. Juan Jose Faustosinophils/100 WBC (Bld)0.4 %Critically low0.9-7.0The [facility]S HospitalComment on above:Performed By: #### URCX #### [facility] [address] [place] [address] Dr. Juan Jose Faustrythrocyte distribution width (RBC) [Ratio]12.4 %Canrgs62.0-15.0 [facility] CampusComment on above:Performed By: #### URCX #### [facility] [address] [place] [address] Dr. Juan Jose BandaHematocrit (Bld) [Volume fraction]33.7 %Critically low36.0-48.0 [facility] CampusComment on above:Performed By: #### URCX #### [facility] [address] [place] [address] Dr. Juan Jose BandaHemoglobin (Bld) [Mass/Vol]12.1 g/xTOfyhkh49.0-16.0The [facility]S HospitalComment on above:Performed By: #### URCX #### [facility] [address] [place] [address] Dr. Juan Jose Daugherty #0.09 10e3/ulCritically high0.00-0.03The [facility] Comment on above:Performed By: #### URCX #### [facility] [address] [place], [place] [address] Dr. Juan Jose Daugherty %1.1 %Critically high0.0-0.5The [facility] HospitalComment on above:Performed By: #### URCX #### [facility] [address] [place] [address] Dr. Juan Jose Banerjee #1.5 103/ulNormal1.2-3.8The [facility] HospitalComment on above:Performed By: #### URCX #### [facility] [address] [place] [address] Dr. Juan Jose Martinhocytes/100 WBC (Bld)17.1 %Critically low20.5-60.0The [facility] HospitalComment on above:Performed By: #### URCX #### [facility] [address] [place] [address] Dr. Juan Jose FullerUAL DIFF REQNONormalThe [facility]S HospitalComment on above: Performed By: #### URCX #### [facility] [address] [place] [address] Dr. Juan Jose Toure (RBC) [Entitic mass]30.5 fzZmeyso03.7-34.0The [facility]S HospitalComment on above:Performed By: #### URCX #### [facility] [address] [place] [address] Dr. Juan Jose Toure (RBC) [Mass/Vol]35.9 g/dLCritically high29.9-35.2The [facility] HospitalComment on above:Performed By: #### URCX #### [facility] [address] [place] [address] Dr. Juan Jose Toure (RBC) [Entitic vol]84.9 cVRjlson21.0-99.0The [facility]S HospitalCommclaren caro region on above:Performed By: #### URCX #### [facility] [address] [place] [address] Dr. Juan Jose Pedro #0.8 103/ulNormal0.3-0.8The [facility] HospitalComment on above:Performed By: #### URCX #### [facility] [address] [place] [address] Dr. Juan Jose Puriocytes/100 WBC (Bld)9.8 %Normal1.7-12.0The [facility] on above:Performed By: #### URCX #### [facility] [address] [place] [address] Dr. Juan Jose NyeUT #6.1 103/ulNormal1.4-6.5The [facility] HospitalComment on above:Performed By: #### URCX #### [facility] [address] [place] [address] Dr. Juan Jose Nyeutrophils/100 WBC (Bld)71.4 %Ohyryo18.0-75.0The [facility] HospitalComment on above:Performed By: #### URCX #### [facility] [address] [place] [address] Dr. Juan Jose BandaPlatelet mean volume (Bld) [Entitic vol]11.2 fLNormal9.5-13.5The [facility] HospitalComment on above:Performed By: #### URCX #### [facility] [address] [place] [address] Dr. Juan Jose BandaPLT196 103/hhRwlldz263-417Rli [facility] HospitalComment on above: Performed By: #### URCX #### [facility] [address] [place] [address] Dr. Juan Jose BandaRBC3.97 106/ulCritically low4.20-5.40The [facility] HospitalComment on above:Performed By: #### URCX #### [facility] [address] [place] [address] Dr. Juan Jose BandaWBC8.5 103/ulNormal4.0-11.0The [facility] HospitalCommclaren caro region on above: Performed By: #### URCX #### [facility] [address] [place] [address] Dr. Juan Jose Villatoro PROFILEon 42-64-8046Toyjcsc [Mass/Vol]3.0 g/dLCritically low3.4-5.0The [facility] HospitalComment on above:Performed By: #### SEDR #### [facility] [address] [place] [address] Dr. Juan Jose BandaAlbumin/Globulin [Mass ratio]0.9 {ratio}NormalThe [facility] HospitalComment on above:Performed By: #### SEDR #### [facility] [address] [place] [address] Dr. Juan Jose Hugo [Catalytic activity/Vol]76 U/ARplllm59-842Jrp [facility] HospitalComment on above:Performed By: #### SEDR #### [facility] [address] [place] [address] Dr. Juan Jose Stafford [Catalytic activity/Vol]13 U/LCritically txt37-81Mnv [facility] HospitalComment on above:Performed By: #### SEDR #### [facility] [address] [place] [address] Dr. Juan Jose Linton [Catalytic activity/Vol]14 U/LCritically ipe96-11Xzn [facility] HospitalComment on above:Performed By: #### SEDR #### [facility] [address] [place] [address] Dr. Juan Jose Ceron, CONJUGATED0.1 mg/dLNormal0.0-0.2The [facility] Comment on above:Performed By: #### SEDR #### [facility] [address] [place] [address] Dr. Juan Jose Rodriguezirubin [Mass/Vol]0.3 mg/dLNormal0.2-1.0The [facility] Comment on above:Performed By: #### SEDR #### [facility] [address] [place] [address] Dr. Juan Jose BandaGlobulin (S) [Mass/Vol]3.4 g/dLNormalThe [facility] HospitalComment on above:Performed By: #### SEDR #### [facility] [address] [place] [address] Dr. Juan Jose BandaProtein [Mass/Vol]6.4 g/dLNormal6.4-8.2The [facility] Comment on above:Performed By: #### SEDR #### [facility] [address] [place] [address] [address] [address] Juan Jose BandaBOX TEST SENT OUTon [id number] TO REF LAB10/01/2022[facility] Health CenterComment on above:Performed By: #### SEDR #### [facility] [address] [place] [address] [address] [address] Juan Jose BandaUS PREG ANATOMY SINGLEon [id number] PREG ANATOMY SINGLE EXAMINATION: US PREG ANATOMY [...] Electronically authenticated by: LUISA ARCHIBALD Date: 2022-09-29 16:29[facility] Health CenterHE B SURFACE ANTIGEN SCREENon 17-46-0580ZWrMl ScreenNegative NormalNegativeThe [facility] on above:Performed By: #### SEDR #### [facility] [address] [place] [address] Dr. Juan Jose BandaHEPATITIS C VIRUS AB W/ REFLEX QUANTon [id number] AB<0.1Normal 0.0-0.9The [facility] on above:Performed By: #### RPRQ #### [facility] [address] [place] [address] Dr. Juan Jose BandaInterpretation:CommentOhioHealth Grove City Methodist Hospital on above:Result Comment: Negative Not infected with HCV, unless recent infection is suspected or other evidence exists to indicate HCV infection.Performed By: #### RPRQ #### [facility] [address] [place] [address] Dr. Juan Jose BandaHIV 1 AND 2 WITH REFLEXon 94-76-2785YCE Screen 4th Generation wRfxNon-ReactiveNormalNon ReactiveThe [facility] on above:Result Comment: HIV Negative HIV-1/HIV-2 antibodies and HIV-1 p24 antigen were NOT detected. There is no laboratory evidence of HIV infection.Performed By: #### HIV12 #### [address] [address] [address] Juan Jose BandaRPR QUANTon 15-41-1807Mxngi Plasma Reagin, QuantNon-Reactive NormalNonRea<1:1The [facility] on above:Result Comment: Please Note: This test does not meet current guidelines for screening and diagnosis of syphilis. This test is intended for following treatment response in patients being treated for syphilis infection. To screen for syphilis infection, a reflex cascade that includes both RPR and a treponema-specific assay should be utilized, such as Treponema pallidum (Syphilis) Screening [place] (356246) or Rapid Plasma Reagin (RPR) Test With Reflex to Quantitative RPR and Confirmatory Treponema pallidum Antibodies (022204).Performed By: #### RPRQ #### [facility] [address] [place] [address] Dr. Juan Jose Knowles AB IGGon 76-77-3858Lvhzyur Antibodies, IgG2.56 index NormalImmune >0.99The [facility] HospitalComment on above:Result Comment: Non- immune <0.90 Equivocal 0.90 - 0.99 Immune >0.99Performed By: #### SEDR #### [facility] [address] [place] [address] Dr. Juan Jose BandaCULTURE URINEon 21-62-7666YMDGIIO URINECulture Observations: LIGHT GROWTH OF MIXED GENITAL CHEVY. NO POTENTIAL PATHOGENS SEEN.NormalThe [facility]S HospitalComment on above:Performed By: #### URCX #### [facility] [address] [place] [address] Dr. Juan Jose Rosado AUTO DIFFon [id number] #0.0 103/ulNormal0.0-0.1The [facility] HospitalComment on above:Performed By: #### SEDR #### [facility] [address] [place] [address] Dr. Juan Jose BandaBasophils/100 WBC (Bld)0.4 %Normal0.2-2.0The [facility] Comment on above:Performed By: #### SEDR #### [facility] [address] [place] [address] Dr. Juan Jose Sims #0.1 103/ulNormal0.0-0.7The [facility] HospitalComment on above: Performed By: #### SEDR #### [facility] [address] [place] [address] Dr. Juan Jose Faustosinophils/100 WBC (Bld)1.4 %Normal0.9-7.0The [facility] Comment on above:Performed By: #### SEDR #### [facility] [address] [place] [address] Dr. Juan Jose Faustrythrocyte distribution width (RBC) [Ratio]12.2 %Xteavj73.0-15.0 The [facility] HospitalComment on above:Performed By: #### SEDR #### [facility] [address] [place] [address] Dr. Juan Jose Montielatocrit (Bld) [Volume fraction]35.3 %Critically low36.0-48.0 The [facility] HospitalComment on above:Performed By: #### SEDR #### [facility] [address] [place] [address] Dr. Juan Jose BandaHemoglobin (Bld) [Mass/Vol]12.7 g/pPIpnltb73.0-16.0The [facility] HospitalComment on above:Performed By: #### SEDR #### [facility] [address] [place] [address] Dr. Juan Jose Daugherty #0.03 10e3/ulNormal0.00-0.03The [facility] HospitalComment on above:Performed By: #### SEDR #### [facility] [address] [place] [address] Dr. Juan Jose Daugherty %0.4 %Normal0.0-0.5The [facility] HospitalComment on above: Performed By: #### SEDR #### [facility] [address] [place] [address] Dr. Juan Jose Banerjee #1.4 103/ulNormal1.2-3.8The [facility] HospitalComment on above:Performed By: #### SEDR #### [facility] [address] [place] [address] Dr. Juan Jose Snowmphocytes/100 WBC (Bld)19.7 %Critically low20.5-60.0The [facility]S HospitalComment on above:Performed By: #### SEDR #### [facility] [address] [place] [address] Dr. Juan Jose FullerUAL DIFF REQNONormalThe [facility] HospitalComment on above: Performed By: #### SEDR #### [facility] [address] [place] [address] Dr. Juan Jose Medeiros (RBC) [Entitic mass]29.8 ebNtbfnj86.7-34.0The [facility]S HospitalComment on above:Performed By: #### SEDR #### [facility] [address] [address] [address] Juan Jose ToureHC (RBC) [Mass/Vol]36.0 g/dLCritically high29.9-35.2The [facility] HospitalComment on above:Performed By: #### SEDR #### [facility] [address] [place] [address] Dr. Juan Jose ToureV (RBC) [Entitic vol]82.9 aYYvoofl47.0-99.0The [facility] HospitalComment on above:Performed By: #### SEDR #### [facility] [address] [place] [address] Dr. Juan Jose Pedro #0.6 103/ulNormal0.3-0.8The [facility] HospitalComment on above:Performed By: #### SEDR #### [facility] [address] [place] [address] Dr. Juan Jose Puriocytes/100 WBC (Bld)8.3 %Normal1.7-12.0The [facility] Comment on above:Performed By: #### SEDR #### [facility] [address] [place] [address] Dr. Juan Jose Farr #5.0 103/ulNormal1.4-6.5The [facility] HospitalComment on above:Performed By: #### SEDR #### [facility] [address] [place] [address] Dr. Juan Jose Nyeutrophils/100 WBC (Bld)69.8 %Dpobib57.0-75.0The [facility]S HospitalComment on above:Performed By: #### SEDR #### [facility] [address] [place] [address] Dr. Juan Jose Muñozlet mean volume (Bld) [Entitic vol]11.8 fLNormal9.5-13.5The [facility] HospitalComment on above:Performed By: #### SEDR #### [facility] [address] [place] [address] Dr. Juan Jose BandaPLT183 103/mgJujhwg043-084Fsh [facility] on above: Performed By: #### SEDR #### [facility] [address] [place] [address] Dr. Juan Jose BandaRBC4.26 106/ulNormal4.20-5.40The [facility] on above:Performed By: #### SEDR #### [facility] [address] [place] [address] Dr. Juan Jose BandaWBC7.1 103/ulNormal4.0-11.0The [facility] on above: Performed By: #### SEDR #### [facility] [address] [place] [address] Dr. Juan Jose BandaCULTURE URINEon [id number] URINECulture Observations: MODERATE GROWTH OF MIXED GENITAL CHEVY. NO POTENTIAL PATHOGENS SEEN.NormalThe [facility] on above:Performed By: #### CBCMAN #### [facility] [address] [place] [address] Dr. Juan Jose BandaGLYCOHEMOGLOBIN A1Con 20-03-5579JXF RECOMMENDATIONSEE BELOWNormal [facility] on above:Result Comment: ADA RECOMMENDED LIMIT 4.0 - 6.0 ADA THERAPEUTIC TARGET < 7.0 ACTION SUGGESTED > 7.0Performed By: #### HIV12 #### [facility] [address] [place] [address] Dr. Juan Jose BandaGlucose [Mass/Vol]85 mg/dLNoNationwide Children's Hospital on above:Performed By: #### HIV12 #### [facility] [address] [place] [address] Dr. Juan Jose BandaHbA1c (Bld) [Mass fraction]4.6 %Normal4.5-6.2[facility] on above:Performed By: #### HIV12 #### [facility] [address] [place] [address] Dr. Juan Jose BandaTYPE AND SCREENon 69-26-2536HURS AND SCREENNegativeNoNationwide Children's Hospital on above:Performed By: #### TNS #### [facility] [address] [place] [address] Dr. Juan Jose BandaCovid-19 PCR ([facility]VDFITCH[facility])on [id number]-CoV-2 (COVID-19) RNA ISAAC+probe Ql (Unsp spec)Not detectedNormalNOT DETECTEDThe [facility] Comment on above:Result Comment: When diagnostic testing [...] for this test is supported by the [place] of Health and Human Service's declaration that [...] longer be used).Performed By: #### RPRQ #### [facility] [address] [place] [address] Dr. Juan Jose Fernandez A AND B AGon [id number] BELOWOhioHealth Nelsonville Health CenterComment on above:Result Comment: Negative for Flu A protein angiten. Infection due to Flu A cannot be ruled out. FluA angiten in the sample may be below the detection limit of the test.Performed By: #### SEDR #### [facility] [address] [place] [address] Dr. Juan Jose OspinaUBNEGLAWRENCE [facility] on above: Result Comment: Negative for Flu B protein antigen. Infection due to Flu B cannot be ruled out. FluB antigen in the sample may be below the detection limit of the test.Performed By: #### SEDR #### [facility] [address] [place] [address] Dr. Juan Jose Alegria AGNegativeNormalNEGATIVE SEE COMMENTThe [facility]S HospitalComment on above:Performed By: #### SEDR #### [facility] [address] [place] [address] Dr. Juan Jose Infante AGNegativeNormalNEGATIVE SEE COMMENTThe [facility] HospitalComment on above:Performed By: #### SEDR #### [facility] [address] [place] [address] Dr. Juan Jose BandaINTERNAL CONTROLSWithin Normal LimitsNormalWithin Normal Limits [facility] CampusComment on above:Performed By: #### SEDR #### [facility] [address] [place] [address] Dr. Juan Jose Rosado AUTO DIFFon [id number] #0.0 103/ulNormal0.0-0.1The [facility]S HospitalComment on above:Performed By: #### SEDR #### [facility] [address] [place] [address] Dr. Juan Jose BandaBasophils/100 WBC (Bld)0.3 %Normal0.2-2.0[facility] Comment on above:Performed By: #### SEDR #### [facility] [address] [place] [address] Dr. Juan Jose Sims #0.1 103/ulNormal0.0-0.7The [facility] HospitalComment on above: Performed By: #### SEDR #### [facility] [address] [place] [address] Dr. Juan Jose Faustosinophils/100 WBC (Bld)1.3 %Normal0.9-7.0The [facility] Comment on above:Performed By: #### SEDR #### [facility] [address] [place] [address] Dr. Juan Jose Faustrythrocyte distribution width (RBC) [Ratio]11.4 %Cdapwj50.0-15.0 [facility] CampusComment on above:Performed By: #### SEDR #### [facility] [address] [place], [place] [address] Dr. Juan Jose BandaHematocrit (Bld) [Volume fraction]35.6 %Critically low36.0-48.0 The [facility] HospitalComment on above:Performed By: #### SEDR #### [facility] [address] [place] [address] Dr. Juan Jose BandaHemoglobin (Bld) [Mass/Vol]12.9 g/yAKyvdsc77.0-16.0The [facility] HospitalComment on above:Performed By: #### SEDR #### [facility] [address] [place] [address] Dr. Juan Jose Daugherty #0.04 10e3/ulCritically high0.00-0.03The [facility] Comment on above:Performed By: #### SEDR #### [facility] [address] [place] [address] Dr. Juan Jose Daugherty %0.5 %Normal0.0-0.5The [facility] HospitalComment on above: Performed By: #### SEDR #### [facility] [address] [place] [address] Dr. Juan Jose Banerjee #2.2 103/ulNormal1.2-3.8The [facility] HospitalComment on above:Performed By: #### SEDR #### [facility] [address] [place] [address] Dr. Juan Jose Snowmphocytes/100 WBC (Bld)25.8 %Ajkwkx88.5-60.0The [facility] HospitalComment on above:Performed By: #### SEDR #### [facility] [address] [place] [address] Dr. Juan Jose BandaMANUAL DIFF REQNONormalThe [facility]S HospitalComment on above: Performed By: #### SEDR #### [facility] [address] [place] [address] Dr. Juan Jose Medeiros (RBC) [Entitic mass]29.9 neYhvyec60.7-34.0The [facility] HospitalComment on above:Performed By: #### SEDR #### [facility] [address] [address] [address] Juan Jose ToureHC (RBC) [Mass/Vol]36.2 g/dLCritically high29.9-35.2The [facility] HospitalComment on above:Performed By: #### SEDR #### [facility] [address] [address] [address] Juan Jose ToureV (RBC) [Entitic vol]82.4 qBJfkwzk26.0-99.0The [facility] HospitalComment on above:Performed By: #### SEDR #### [facility] [address] [place] [address] Dr. Juan Jose Pedro #0.9 103/ulCritically high0.3-0.8The [facility] Comment on above:Performed By: #### SEDR #### [facility] [address] [place] [address] Dr. Juan Jose Puriocytes/100 WBC (Bld)9.9 %Normal1.7-12.0[facility] Comment on above:Performed By: #### SEDR #### [facility] [address] [place] [address] Dr. Juan Jose Farr #5.4 103/ulNormal1.4-6.5The [facility] HospitalComment on above:Performed By: #### SEDR #### [facility] [address] [place] [address] Dr. Juan Jose Nyeutrophils/100 WBC (Bld)62.2 %Ldgnlp12.0-75.0The [facility] HospitalComment on above:Performed By: #### SEDR #### [facility] [address] [place] [address] Dr. Juan Jose Muñozlet mean volume (Bld) [Entitic vol]11.7 fLNormal9.5-13.5The [facility] HospitalComment on above:Performed By: #### SEDR #### [facility] [address] [place] [address] Dr. Juan Jose BandaPLT205 103/ovEsalpz851-569Qtu [facility] HospitalComment on above: Performed By: #### SEDR #### [facility] [address] [place] [address] Dr. Juan Jose BandaRBC4.32 106/ulNormal4.20-5.40The [facility] on above:Performed By: #### SEDR #### [facility] [address] [place] [address] Dr. Juan Jose BandaWBC8.6 103/ulNormal4.0-11.0The [facility] Hospitalment on above: Performed By: #### SEDR #### [facility] [address] [place] [address] Dr. Juan Jose Pimentel URINE PROFILEon 36-42-3517Sgdintrgt Ql (U)NegativeNormal NEGATIVEDoctors Hospital on above:Performed By: #### HIV12 #### [facility] [address] [place] [address] Dr. Juan Jose Kumararity (U)CLEARNormalCLEARWayne Healthcare Main CampusComment on above: Performed By: #### HIV12 #### [facility] [address] [place] [address] Dr. Juan Jose Oliver (U)LT. YELLOWNormalYELLOWDoctors Hospital on above:Performed By: #### HIV12 #### [facility] [address] [place] [address] Dr. Juan Jose YuenPRANEETH micrscopic examination will be performed if indicated. NormalThe [facility]S HospitalComment on above:Performed By: #### HIV12 #### [facility] [address] [place] [address] Dr. Juan Jose BandaGlucose Ql (U)NegativeNormalNEGATIVEWayne Healthcare Main CampusCommclaren caro region on above:Performed By: #### HIV12 #### [facility] [address] [place] [address] Dr. Juan Jose BandaHemoglobin Ql (U)NegativeNormalNEGATIVEKettering Health Dayton on above:Performed By: #### HIV12 #### [facility] [address] [place] [address] Dr. Juan Jose Johnson Ql (U)NegativeNormalNEGATIVEWayne Healthcare Main CampusComment on above:Performed By: #### HIV12 #### [facility] [address] [place] [address] Dr. Juan Jose BairdOCYTESSMALLAbnormalNEGATIVEWayne Healthcare Main CampusComment on above:Performed By: #### HIV12 #### [facility] [address] [place] [address] Dr. Juan Jose Cansecotrheavenly Ql (U)NegativeNormalNEGATIVEWayne Healthcare Main CampusComment on above:Performed By: #### HIV12 #### [facility] [address] [place] [address] Dr. Juan Jose BandapH (U)6.0 [pH]Normal5-9The [facility] HospitalComment on above: Performed By: #### HIV12 #### [facility] [address] [place] [address] Dr. Juan Jose BandaSPEC GRAVITY<=1.999Mvyhvhuu9.005-<=1.025[facility] Comment on above:Performed By: #### HIV12 #### [facility] [address] [place] [address] Dr. Juan Jose Hinton PROTEINNegativeNoalNEGATIVE/ TRACEWayne Healthcare Main Campus Comment on above:Performed By: #### HIV12 #### [facility] [address] [place] [address] Dr. Juan Jose Anne MICRO INDINDICATEDNormalThSouthview Medical CenterComment on above: Performed By: #### HIV12 #### [facility] [address] [place] [address] Dr. Juan Jose Jiménezbilinogen Qn (U)0.2 {Tyler'U}/dLNormal0.2 - 1.0The [facility] HospitalComment on above:Performed By: #### HIV12 #### [facility] [address] [place] [address] Dr. Juan Jose Hamm QUANT HCGon [id number] LXUTX66838 mIU/mLNormalThe [facility] HospitalComment on above:Performed By: #### RPRQ #### [facility] [address] [place] [address] Dr. Juan Jose Jessica [facility]leness HospitalComment on above: Result Comment: 5-50 0.2-1 WEEK 50-500 1-2 WEEKS 100-5,000 2-3 WEEKS 500-10,000 3-4 WEEKS 1,000-50,000 4-5 WEEKS 10,000-100,000 5-6 WEEKS 15,000-200,000 6-8 WEEKS 10,000-100,000 2-3 MONTHSPerformed By: #### RPRQ #### [facility] [address] [place] [address] Dr. Juan Jose BandaPREGNANCY URon 10-30-2533THCRJLRHY, QUALPositiveAbnormalNEGATIVE [facility] CampusComment on above:Performed By: #### HIV12 #### [facility] [address] [place] [address] Dr. Juan Jose BandaPROF CHEM 8 (BAS METB)on 89-81-2375Bange gap [Moles/Vol]9.4 mmol/LNormalWayne Healthcare Main CampusComment on above:Performed By: #### RPRQ #### [facility] [address] [place] [address] Dr. Juan Jose BandaCalcium [Mass/Vol]8.8 mg/dLNormal8.5-10.1[facility] Comment on above:Performed By: #### RPRQ #### [facility] [address] [place] [address] Dr. Juan Jose BandaChloride [Moles/Vol]102 mmol/KSfbbll91-292SfiWayne Healthcare Main Campus Comment on above:Performed By: #### RPRQ #### [facility] [address] [place] [address] Dr. Juan Jose BandaCO2 [Moles/Vol]28.0 mmol/SPjbeiy00.0-32.0[facility] Comment on above:Performed By: #### RPRQ #### [facility] [address] [address] [address] Juan Jose BandaCreatinine [Mass/Vol]0.66 mg/dLNormal0.55-1.02The [facility] HospitalComment on above:Performed By: #### RPRQ #### [facility] [address] [place] [address] Dr. Ingram ChangEGFR-AF DJIBOUTIAN>60Normal>=60The [facility] HospitalComment on above:Performed By: #### RPRQ #### [facility] [address] [place] [address] Dr. Juan Jose FaustGFR-NON AF DJIBOUTIAN>60Normal>=60The [facility] HospitalComment on above:Performed By: #### RPRQ #### [facility] [address] [place] [address] Dr. Juan Jose BandaGlucose [Mass/Vol]92 mg/nYIoatqj20-880Cjp [facility] Comment on above:Performed By: #### RPRQ #### [facility] [address] [place] [address] Dr. Juan Jose BandaPotassium [Moles/Vol]3.4 mmol/LCritically low3.5-5.1The [facility] HospitalComment on above:Performed By: #### RPRQ #### [facility] [address] [place] [address] Dr. Juan Jose BandaSodium [Moles/Vol]136 mmol/UXtjhrg332-713Ims [facility] Comment on above:Performed By: #### RPRQ #### [facility] [address] [place] [address] Dr. Juan Jose BandaUrea nitrogen [Mass/Vol]9.0 mg/dLNormal6.4-19.3The [facility] HospitalComment on above:Performed By: #### RPRQ #### [facility] [address] [place] [address] Dr. Juan Jose BandaUrea nitrogen/Creatinine [Mass ratio]13.6 mg/mgNormalThe [facility] HospitalComment on above:Performed By: #### RPRQ #### [facility] [address] [address] [address] Juan Jose France MICROSCOPIC ONLYon [id number]P SEEN [facility] on above:Performed By: #### HIV12 #### [facility] [address] [address] [address] Juan Jose Batres identified Cx Nom (U)NOT INDICATEDNoCleveland Clinic Hillcrest HospitalCommclaren caro region on above:Performed By: #### HIV12 #### [facility] [address] [place] [address] Dr. Juan Jose Dao SEENNormalNONE SEENDoctors Hospital on above:Performed By: #### HIV12 #### [facility] [address] [address] [address] Juan Jose Stevensonystals LM Nom (Urine sed)NONE SEENNormalNONE SEENDoctors Hospital on above:Performed By: #### HIV12 #### [facility] [address] [address] [address] Ingram ChangEpithelial cells LM Ql (Urine sed)MANYAbnormalNONE SEEN /RAREThe [facility] on above:Performed By: #### HIV12 #### [facility] [address] [place] [address] Dr. Juan Jose TrippCOUSTRACEAbnormalNONE SEENDoctors Hospital on above:Performed By: #### HIV12 #### [facility] [address] [address] [address] Juan Jose BandaAzsdsPHZ4-5Epdelm0-5Vhz [facility] on above:Performed By: #### HIV12 #### [facility] [address] [address] [address] Juan Jose BandaWBC0-2AbnormalNONE SEENWayne Healthcare Main CampusCommclaren caro region on above: Performed By: #### HIV12 #### [facility] [address] [place] [address] Dr. Juan Jose Narayan PREG TVon [id number] PREG TVEXAMINATION: US PREG TV HISTORY: Missed [...] Electronically authenticated by: LUISA ARCHIBALD Date: 2022-06-18 17:27NoCleveland Clinic Hillcrest HospitalABO AND RH TYPEon [id number] and Rh group Nom (Bld)ABO Rh Typing O Rh PositiveNoCleveland Clinic Hillcrest HospitalComment on above:Performed By: #### ABORH #### [facility] [address] [place] [address] Dr. Juan Jose BandaAMYLASEon [id number] [Catalytic activity/Vol]33 U/LNormal 25-115[facility] CampusComment on above:Performed By: #### URCX #### [facility] [address] [place] [address] Dr. Juan Jose Rosado AUTO DIFFon [id number] #0.0 103/ulNormal0.0-0.1[facility] CampusComment on above:Performed By: #### CBCMAN #### [facility] [address] [place] [address] Dr. Juan Jose Moralessophils/100 WBC (Bld)0.4 %Normal0.2-2.0[facility] Comment on above:Performed By: #### CBCMAN #### [facility] [address] [place] [address] Dr. Juan Jose Sims #0.1 103/ulNormal0.0-0.7The [facility] HospitalComment on above: Performed By: #### CBCMAN #### [facility] [address] [place] [address] Dr. Juan Jose Faustosinophils/100 WBC (Bld)2.2 %Normal0.9-7.0The [facility] Comment on above:Performed By: #### DOUG #### [facility] [address] [place] [address] Dr. Juan Jose Faustrythrocyte distribution width (RBC) [Ratio]11.6 %Btbmkf06.0-15.0 The [facility] HospitalComment on above:Performed By: #### DOUG #### [facility] [address] [place] [address] Dr. Juan Jose BandaHematocrit (Bld) [Volume fraction]35.1 %Critically low36.0-48.0 The [facility] HospitalComment on above:Performed By: #### DOUG #### [facility] [address] [place] [address] Dr. Juan Jose BandaHemoglobin (Bld) [Mass/Vol]12.5 g/oHElkxsh97.0-16.0The [facility] HospitalComment on above:Performed By: #### DOUG #### [facility] [address] [place] [address] Dr. Juan Jose Daugherty #0.02 10e3/ulNormal0.00-0.03The [facility] HospitalComment on above:Performed By: #### DOUG #### [facility] [address] [place] [address] Dr. Juan Jose Daugherty %0.4 %Normal0.0-0.5The [facility] HospitalComment on above: Performed By: #### CBCJESSICA #### [facility] [address] [place] [address] Dr. Juan Jose SnowMPH #1.8 103/ulNormal1.2-3.8The [facility] HospitalComment on above:Performed By: #### CBCJESSICA #### [facility] [address] [place] [address] Dr. Juan Jose Snowmphocytes/100 WBC (Bld)31.8 %Nvrayg31.5-60.0The [facility] HospitalComment on above:Performed By: #### CBCJESSICA #### [facility] [address] [address] [address] Juan Jose FullerUAL DIFF REQNONormalThe [facility] HospitalComment on above: Performed By: #### DOUG #### [facility] [address] [place] [address] Dr. Juan Jose Toure (RBC) [Entitic mass]29.9 rdZxojnv36.7-34.0The [facility] HospitalComment on above:Performed By: #### DOUG #### [facility] [address] [place] [address] Dr. Juan Jose Toure (RBC) [Mass/Vol]35.6 g/dLCritically high29.9-35.2The [facility] HospitalComment on above:Performed By: #### DOUG #### [facility] [address] [place] [address] Dr. Juan Jose Toure (RBC) [Entitic vol]84.0 nEAhnfwp20.0-99.0The [facility] HospitalComment on above:Performed By: #### DOUG #### [facility] [address] [place] [address] Dr. Juan Jose Pedro #0.6 103/ulNormal0.3-0.8The [facility] HospitalComment on above:Performed By: #### DOUG #### [facility] [address] [place] [address] Dr. Juan Jose Puriocytes/100 WBC (Bld)10.4 %Normal1.7-12.0The [facility] Comment on above:Performed By: #### DOUG #### [facility] [address] [place] [address] Dr. Juan Jose Farr #3.1 103/ulNormal1.4-6.5The [facility] HospitalComment on above:Performed By: #### DOUG #### [facility] [address] [place] [address] Dr. Juan Jose Nyeutrophils/100 WBC (Bld)54.8 %Sewjnm96.0-75.0The [facility] HospitalComment on above:Performed By: #### DOUG #### [facility] [address] [place] [address] Dr. Juan Jose Ambrose mean volume (Bld) [Entitic vol]11.8 fLNormal9.5-13.5The [facility] on above:Performed By: #### DOUG #### [facility] [address] [place] [address] Dr. Juan Jose BandaPLT185 103/klVpcfyj343-588Zrg [facility] on above: Performed By: #### DOUG #### [facility] [address] [place] [address] Dr. Juan Jose BandaRBC4.18 106/ulCritically low4.20-5.40[facility] on above:Performed By: #### DOUG #### [facility] [address] [place] [address] Dr. Juan Jose BandaWBC5.6 103/ulNormal4.0-11.0[facility] on above: Performed By: #### DOUG #### [facility] [address] [place] [address] Dr. Juan Jose BandaLIPASEon 46-15-5686Gicqnt [Catalytic activity/Vol]69.0 U/L Critically low73.0-393.0[facility] on above:Performed By: #### URCX #### [facility] [address] [place] [address] Dr. Juan Jose Hamm QUANT HCGon 96-82-8664NQS BKYFX13164 mIU/mLNormalThe [facility] HospitalComment on above:Performed By: #### RPRQ #### [facility] [address] [place] [address] Dr. Juan Jose Jessica RANGESEE [facility] Hospital - CincinnatiComment on above: Result Comment: 5-50 0.2-1 WEEK 50-500 1-2 WEEKS 100-5,000 2-3 WEEKS 500-10,000 3-4 WEEKS 1,000-50,000 4-5 WEEKS 10,000-100,000 5-6 WEEKS 15,000-200,000 6-8 WEEKS 10,000-100,000 2-3 MONTHSPerformed By: #### RPRQ #### [facility] [address] [address] [address] Juan Jose Narayan PREG TVon [id number] PREG TVEXAM: US PREG TV HISTORY: Pain [...] Electronically authenticated by: Marita SINHA Date: 2022-06-02 01:30NormalThe [facility] HospitalCBC AUTO DIFFon [id number] #0.0 103/ulNormal0.0-0.1[facility] CampusComment on above:Performed By: #### HIV12 #### [facility] [address] [id number] [address] Juan Jose Moralessophils/100 WBC (Bld)0.5 %Normal0.2-2.0The [facility] Comment on above:Performed By: #### HIV12 #### [facility] [address] [address] [address] Juan Jose Sims #0.1 103/ulNormal0.0-0.7The [facility] HospitalComment on above: Performed By: #### HIV12 #### [facility] [address] [place] [address] Dr. Juan Jose Faustosinophils/100 WBC (Bld)1.2 %Normal0.9-7.0The [facility] Comment on above:Performed By: #### HIV12 #### [facility] [address] [place] [address] Dr. Juan Jose Faustrythrocyte distribution width (RBC) [Ratio]11.6 %Lokbck75.0-15.0 The [facility]S HospitalComment on above:Performed By: #### HIV12 #### [facility] [address] [place] [address] Dr. Juan Jose BandaHematocrit (Bld) [Volume fraction]36.0 %Dqcdhq50.0-48.0The [facility]S HospitalComment on above:Performed By: #### HIV12 #### [facility] [address] [place] [address] Dr. Juan Jose BandaHemoglobin (Bld) [Mass/Vol]12.7 g/hWAjegrj62.0-16.0The [facility] HospitalComment on above:Performed By: #### HIV12 #### [facility] [address] [place] [address] Dr. Juan Jose Daugherty #0.03 10e3/ulNormal0.00-0.03The [facility] HospitalComment on above:Performed By: #### HIV12 #### [facility] [address] [place] [address] Dr. Juan Jose Daugherty %0.4 %Normal0.0-0.5The [facility]S HospitalComment on above: Performed By: #### HIV12 #### [facility] [address] [place] [address] Dr. Juan Jose Banerjee #2.4 103/ulNormal1.2-3.8The [facility]S HospitalComment on above:Performed By: #### HIV12 #### [facility] [address] [place] [address] Dr. Yilan ChangLymphocytes/100 WBC (Bld)29.8 %Xvfeoj45.5-60.0The [facility] HospitalComment on above:Performed By: #### HIV12 #### [facility] [address] [place] [address] Dr. Juan Jose FullerUAL DIFF REQNONormalThe [facility]S HospitalComment on above: Performed By: #### HIV12 #### [facility] [address] [place] [address] Dr. Juan Jose Toure (RBC) [Entitic mass]29.9 gbEuhhpp53.7-34.0The [facility]S HospitalComment on above:Performed By: #### HIV12 #### [facility] [address] [place] [address] Dr. Juan Jose Toure (RBC) [Mass/Vol]35.3 g/dLCritically high29.9-35.2The [facility] HospitalComment on above:Performed By: #### HIV12 #### [facility] [address] [place] [address] Dr. Juan Jose Cisneros (RBC) [Entitic vol]84.7 sWLodbkb78.0-99.0The [facility] HospitalComment on above:Performed By: #### HIV12 #### [facility] [address] [place] [address] Dr. Juan Jose Pedro #0.8 103/ulNormal0.3-0.8The [facility] HospitalComment on above:Performed By: #### HIV12 #### [facility] [address] [place] [address] Dr. Juan Jose Puriocytes/100 WBC (Bld)9.4 %Normal1.7-12.0The [facility] Comment on above:Performed By: #### HIV12 #### [facility] [address] [place] [address] Dr. Juan Jose Farr #4.8 103/ulNormal1.4-6.5The [facility] HospitalComment on above:Performed By: #### HIV12 #### [facility] [address] [place] [address] Dr. Juan Jose Nyeutrophils/100 WBC (Bld)58.7 %Mrijar76.0-75.0The [facility] on above:Performed By: #### HIV12 #### [facility] [address] [place] [address] Dr. Juan Jose Muñozlet mean volume (Bld) [Entitic vol]11.5 fLNormal9.5-13.5The [facility] HospitalCommclaren caro region on above:Performed By: #### HIV12 #### [facility] [address] [place] [address] Dr. Juan Jose BandaPLT218 103/fsIdqiwn970-165Asz [facility] on above: Performed By: #### HIV12 #### [facility] [address] [place] [address] Dr. Juan Jose BandaRBC4.25 106/ulNormal4.20-5.40The [facility] on above:Performed By: #### HIV12 #### [facility] [address] [place] [address] Dr. Juan Jose BandaWBC8.2 103/ulNormal4.0-11.0The [facility] on above: Performed By: #### HIV12 #### [facility] [address] [place] [address] Dr. Ingram ChangERadha URINE PROFILEon 07-63-6793Rzmdfdeeg Ql (U)NegativeNormal NEGATIVEThe [facility] HospitalCommclaren caro region on above:Performed By: #### RPRQ #### [facility] [address] [place] [address] Dr. Juan Jose Crowell (U)CLEARNormalCLEARThe [facility] HospitalCommclaren car[facility] on above: Performed By: #### RPRQ #### [facility] [address] [place] [address] Dr. Juan Jose Oliver (U)LT. YELLOWNormalYELLOWThe [facility] HospitalCommclaren caro region on above:Performed By: #### RPRQ #### [facility] [address] [place] [address] Dr. Juan Jose Mtz micrscopic examination will be performed if indicated. NormalWayne Healthcare Main CampusComment on above:Performed By: #### RPRQ #### [facility] [address] [place] [address] Dr. Juan Jose BandaGlucose Ql (U)NegativeNormalNEGATIVEWayne Healthcare Main CampusComment on above:Performed By: #### RPRQ #### [facility] [address] [place] [address] Dr. Juan Jose BandaHemoglobin Ql (U)NegativeNormalNEGWexner Medical Center Comment on above:Performed By: #### RPRQ #### [facility] [address] [place] [address] Dr. Juan Jose BandaKetones Ql (U)TRACEAbnormalNEGATIVEWayne Healthcare Main CampusComment on above:Performed By: #### RPRQ #### [facility] [address] [place] [address] Dr. Juan Jose BandaLEUKOCYTESSMALLAbnormalNEGATIVEWayne Healthcare Main CampusComment on above:Performed By: #### RPRQ #### [facility] [address] [place] [address] Dr. Juan Jose BandaNitrite Ql (U)NegativeNormalNEGATIVEWayne Healthcare Main CampusComment on above:Performed By: #### RPRQ #### [facility] [address] [place] [address] Dr. Juan Jose BandapH (U)5.5 [pH]Normal5-9Way[facility] Healthcare Main CampusComment on above: Performed By: #### RPRQ #### [facility] [address] [place] [address] Dr. Juan Jose BandaSPEC GRAVITY1.943Mqatty9.005-<=1.025Way[facility] Healthcare Main CampusComment on above:Performed By: #### RPRQ #### [facility] [address] [place] [address] Dr. Juan Jose BandaUA PROTEINNegativeNormalNEGATIVE/ TRACEWayne Healthcare Main Campus Comment on above:Performed By: #### RPRQ #### [facility] [address] [place] [address] Dr. Juan Jose PEREZ INDINDICATEDOhioHealth Nelsonville Health CenterComment on above: Performed By: #### RPRQ #### [facility] [address] [place] [address] Dr. Juan Jose Jiménezbiljose Qn (U)0.2 {Tyler'U}/dLNormal0.2 - 1.0The [facility] HospitalComment on above:Performed By: #### RPRQ #### [facility] [address] [place] [address] Dr. Juan Jose Hamm QUANT HCGon 34-03-3557SZA MMXOH1978 mIU/mLNormalThe [facility] HospitalComment on above:Performed By: #### URCX #### [facility] [address] [place] [address] Dr. Juan Jose Jessica RANGESEE [facility] Hospital - CincinnatiComment on above: Result Comment: 5-50 0.2-1 WEEK 50-500 1-2 WEEKS 100-5,000 2-3 WEEKS 500-10,000 3-4 WEEKS 1,000-50,000 4-5 WEEKS 10,000-100,000 5-6 WEEKS 15,000-200,000 6-8 WEEKS 10,000-100,000 2-3 MONTHSPerformed By: #### URCX #### [facility] [address] [place] [address] Dr. Juan Jose BandaPROF 14(COMP METB)on 49-81-4273Igcario [Mass/Vol]3.7 g/dLNormal 3.4-5.0The [facility] HospitalComment on above:Performed By: #### HIV12 #### [facility] [address] [place] [address] Dr. Juan Jose BandaAlbumin/Globulin [Mass ratio]1.4 {ratio}NormalThe [facility]S HospitalComment on above:Performed By: #### HIV12 #### [facility] [address] [place] [address] Dr. Yilan ChangALP [Catalytic activity/Vol]66 U/AOxpadq64-293Vix [facility] HospitalComment on above:Performed By: #### HIV12 #### [facility] [address] [place] [address] Dr. Juan Jose Stafford [Catalytic activity/Vol]18 U/RVpkuwp29-93Sio [facility] HospitalComment on above:Performed By: #### HIV12 #### [facility] [address] [place] [address] Dr. Juan Jose Mcmahon gap [Moles/Vol]11.5 mmol/LNormalWayne Healthcare Main Campus Comment on above:Performed By: #### HIV12 #### [facility] [address] [place] [address] Dr. Juan Jose BandaAST [Catalytic activity/Vol]10 U/LCritically zye88-02Zis [facility] HospitalComment on above:Performed By: #### HIV12 #### [facility] [address] [place] [address] Dr. Juan Jose BandaBilirubin [Mass/Vol]0.4 mg/dLNormal0.2-1.0[facility] Comment on above:Performed By: #### HIV12 #### [facility] [address] [place] [address] Dr. Juan Jose BandaCalcium [Mass/Vol]8.3 mg/dLCritically low8.5-10.1The [facility] HospitalComment on above:Performed By: #### HIV12 #### [facility] [address] [place] [address] Dr. Juan Jose BandaChloride [Moles/Vol]104 mmol/AVdsfxf18-315Xcv [facility] Comment on above:Performed By: #### HIV12 #### [facility] [address] [place] [address] Dr. Juan Jose BandaCO2 [Moles/Vol]27.3 mmol/YIvbibh72.0-32.0[facility] Comment on above:Performed By: #### HIV12 #### [facility] [address] [place] [address] Dr. Juan Jose BandaCreatinine [Mass/Vol]0.72 mg/dLNormal0.55-1.02[facility] CampusComment on above:Performed By: #### HIV12 #### [facility] [address] [place] [address] Dr. Juan Jose FaustGFR-AF DJIBOUTIAN>60Normal>=60The [facility]S HospitalComment on above:Performed By: #### HIV12 #### [facility] [address] [place] [address] Dr. Juan Jose Phan-NON AF DJIBOUTIAN>60Normal>=60Way[facility] CampusComment on above:Performed By: #### HIV12 #### [facility] [address] [place] [address] Dr. Juan Jose BandaGlobulin (S) [Mass/Vol]2.7 g/dLNormalThe [facility] HospitalComment on above:Performed By: #### HIV12 #### [facility] [address] [place] [address] Dr. Juan Jose BandaGlucose [Mass/Vol]95 mg/oTJmgtew35-310NgmWayne Healthcare Main Campus Comment on above:Performed By: #### HIV12 #### [facility] [address] [place] [address] Dr. Juan Jose BandaPotassium [Moles/Vol]3.8 mmol/LNormal3.5-5.1[facility] Comment on above:Performed By: #### HIV12 #### [facility] [address] [place] [address] Dr. Juan Jose BandaProtein [Mass/Vol]6.4 g/dLNormal6.4-8.2[facility] Comment on above:Performed By: #### HIV12 #### [facility] [address] [place] [address] Dr. Juan Jose BandaSodium [Moles/Vol]139 mmol/YMalkut600-289AomWayne Healthcare Main Campus Comment on above:Performed By: #### HIV12 #### [facility] [address] [place] [address] Dr. Juan Jose BandaUrea nitrogen [Mass/Vol]9.0 mg/dLNormal6.4-19.3The [facility] HospitalComment on above:Performed By: #### HIV12 #### [facility] [address] [place] [address] Dr. Juan Jose BandaUrea nitrogen/Creatinine [Mass ratio]12.5 mg/mgNoCleveland Clinic Hillcrest HospitalComment on above:Performed By: #### HIV12 #### [facility] [address] [place] [address] Dr. Juan Jose France MICROSCOPIC ONLYon 30-48-5293ZOYDSCQKXDIKCYmewjzsdCICD SEEN [facility] Main CampusCommclaren caro region on above:Performed By: #### RPRQ #### [facility] [address] [place] [address] Dr. Juan Jose Batres identified Cx Nom (U)INDICATEDOhioHealth Nelsonville Health CenterCommclaren caro region on above:Performed By: #### RPRQ #### [facility] [address] [place] [address] Dr. Juan Jose Dao SEENNormalNONE SEENWayne Healthcare Main CampusCommclaren caro region on above:Performed By: #### RPRQ #### [facility] [address] [place] [address] Dr. Juan Jose Santoyo LM Nom (Urine sed)NONE SEENNormalNONE SEENDoctors Hospital on above:Performed By: #### RPRQ #### [facility] [address] [place] [address] Dr. Ingram ChangEpithelial cells LM Ql (Urine sed)RARENormalNONE SEEN /RAREWayne Healthcare Main CampusCommclaren caro region on above:Performed By: #### RPRQ #### [facility] [address] [place] [address] Dr. Juan Jose Tolbert SEENPomonaNONE SEENDoctors Hospital on above:Performed By: #### RPRQ #### [facility] [address] [place] [address] Dr. Juan Jose BandaOplesTUU0-0Bucyvl4-2Nga [facility] on above:Performed By: #### RPRQ #### [facility] [address] [address] [address] Juan Jose BandaTyajfETK18-17NotvxmabEAIY SEENWayne Healthcare Main CampusComment on above: Performed By: #### RPRQ #### [facility] [address] [address] [address] Juan Jose BandaCT ABD/PELVIS WO CONon [id number] ABD/PELVIS WO CONEXAMINATION: CT ABD/PELVIS WO CON, [...] Electronically authenticated by: ALICJA AVILA Date: 2022-04-29 03:19[facility] URINE PROFILEon 24-24-2927Nmlzizumk Ql (U)NegativeNormal NEGATIVEWayne Healthcare Main CampusComment on above:Performed By: #### CBCMAN #### [facility] [address] [address] [address] Juan Jose Crowell (U)SL CLOUDYAbnormalCLEARThSouthview Medical CenterComment on above:Performed By: #### CBCMAN #### [facility] [address] [address] [address] Juan Jose Oliver (U)YELLOWNormalYELLOWThe [facility] HospitalCommclaren caro region on above: Performed By: #### CBCMAN #### [facility] [address] [address] [address] Juan Jose Mtz micrscopic examination will be performed if indicated. NormalWayne Healthcare Main CampusComment on above:Performed By: #### CBCJESSICA #### [facility] [address] [address] [address] Juan Jose BandaGlucose Ql (U)NegativeNormalNEGATIVEWayne Healthcare Main CampusComment on above:Performed By: #### CBCJESSICA #### [facility] [address] [address] [address] Juan Jose BandaHemoglobin Ql (U)NegativeNormalNEGWexner Medical Center Comment on above:Performed By: #### DOUG #### [facility] [address] [place] [address] Dr. Juan Jose BandaKetones Ql (U)NegativeNormalNEGATIVEWayne Healthcare Main CampusComment on above:Performed By: #### DOUG #### [facility] [address] [place] [address] Dr. Juan Jose BandaLEUKOCYTESNegativeNormalNEGATIVEWayne Healthcare Main CampusComment on above:Performed By: #### DOUG #### [facility] [address] [place] [address] Dr. Juan Jose BandaNitrite Ql (U)NegativeNormalNEGATIVEWayne Healthcare Main CampusComment on above:Performed By: #### DOUG #### [facility] [address] [place] [address] Dr. Juan Jose BandapH (U)6.0 [pH]Normal5-9[facility] CampusComment on above: Performed By: #### CBCJESSICA #### [facility] [address] [place] [address] Dr. Juan Jose BandaSPEC GRAVITY>=1.171Zquxozkx7.005-<=1.025[facility] Comment on above:Performed By: #### CBCJESSICA #### [facility] [address] [place] [address] Dr. Juan Jose BandaUA PROTEINNegativeNormalNEGATIVE/ TRACEWayne Healthcare Main Campus Comment on above:Performed By: #### CBCJESSICA #### [facility] [address] [place] [address] Dr. Juan Jose BandaUR MICRO INDNOT INDICATEDNormalThe [facility] HospitalComment on above:Performed By: #### DOUG #### [facility] [address] [place] [address] Dr. Juan Jose BandaUrobilinogen Qn (U)0.2 {Tyler'U}/dLNormal0.2 - 1.0The [facility] on above:Performed By: #### DOUG #### [facility] [address] [place] [address] Dr. Juan Jose BandaPREGNANCY URon 16-07-8714EUAIQFJWO, QUALNegativeNormalNEGATIVEThe [facility] on above:Performed By: #### DOUG #### [facility] [address] [place] [address] Dr. Juan Jose BandaPROCALCITONINon 01-99-8621Bbgldvytxstiq8.04 ng/mLNormal0.00-0.08 The [facility] on above:Result Comment: . A procalcitonin (PCT) [...] concentrations <2 ng/mL are obtained.Performed By: #### DOUG #### [facility] [address] [place] [address] Dr. Juan Jose BandaCBC AUTO DIFFon 20-39-3157GBDZ #0.0 103/ulNormal0.0-0.1The [facility] HospitalComment on above:Performed By: #### CBC #### [facility] [address] [place] [address] Dr. Juan Jose BandaBasophils/100 WBC (Bld)0.3 %Normal0.2-2.0The [facility] Comment on above:Performed By: #### CBC #### [facility] [address] [place] [address] Dr. Juan Jose Sims #0.2 103/ulNormal0.0-0.7The [facility] HospitalComment on above: Performed By: #### CBC #### [facility] [address] [place] [address] Dr. Juan Jose Faustosinophils/100 WBC (Bld)2.5 %Normal0.9-7.0The [facility] Comment on above:Performed By: #### CBC #### [facility] [address] [place] [address] Dr. Juan Jose Faustrythrocyte distribution width (RBC) [Ratio]11.6 %Grsdhr25.0-15.0 The [facility] HospitalComment on above:Performed By: #### CBC #### [facility] [address] [place] [address] Dr. Juan Jose BandaHematocrit (Bld) [Volume fraction]38.2 %Fqqrji82.0-48.0The [facility] HospitalComment on above:Performed By: #### CBC #### [facility] [address] [place] [address] Dr. Juan Jose BandaHemoglobin (Bld) [Mass/Vol]13.5 g/mGDdokta37.0-16.0The [facility] HospitalComment on above:Performed By: #### CBC #### [facility] [address] [place] [address] Dr. Juan Jose Daugherty #0.01 10e3/ulNormal0.00-0.03The [facility] HospitalComment on above:Performed By: #### CBC #### [facility] [address] [place] [address] Dr. Juan Jose Daugherty %0.2 %Normal0.0-0.5The [facility] HospitalComment on above: Performed By: #### CBC #### [facility] [address] [place] [address] Dr. Juan Jose Banerjee #2.2 103/ulNormal1.2-3.8The [facility] HospitalComment on above:Performed By: #### CBC #### [facility] [address] [place] [address] Dr. Juan Jose Martinhocytes/100 WBC (Bld)33.3 %Syonzn12.5-60.0The [facility] HospitalComment on above:Performed By: #### CBC #### [facility] [address] [place] [address] Dr. Juan Jose Ramirez DIFF REQNONormalThe [facility] HospitalComment on above: Performed By: #### CBC #### [facility] [address] [place] [address] Dr. Juan Jose Medeiros (RBC) [Entitic mass]29.6 ghQpwyqs01.7-34.0The [facility] HospitalComment on above:Performed By: #### CBC #### [facility] [address] [place] [address] Dr. Juan Jose Toure (RBC) [Mass/Vol]35.3 g/dLCritically high29.9-35.2The [facility] HospitalComment on above:Performed By: #### CBC #### [facility] [address] [place] [address] Dr. Juan Jose Toure (RBC) [Entitic vol]83.8 tRFjothy29.0-99.0The [facility] HospitalComment on above:Performed By: #### CBC #### [facility] [address] [place] [address] Dr. Juan Jose Pedro #0.7 103/ulNormal0.3-0.8The [facility] HospitalComment on above:Performed By: #### CBC #### [facility] [address] [place] [address] Dr. Juan Jose Puriocytes/100 WBC (Bld)10.2 %Normal1.7-12.0The [facility] Comment on above:Performed By: #### CBC #### [facility] [address] [place] [address] Dr. Juan Jose NyeUT #3.5 103/ulNormal1.4-6.5The [facility] HospitalComment on above:Performed By: #### CBC #### [facility] [address] [place] [address] Dr. Juan Jose Nyeutrophils/100 WBC (Bld)53.5 %Qbizzb75.0-75.0The [facility] HospitalComment on above:Performed By: #### CBC #### [facility] [address] [place] [address] Dr. Juan Jose BandaPlatelet mean volume (Bld) [Entitic vol]11.9 fLNormal9.5-13.5The [facility] HospitalComment on above:Performed By: #### CBC #### [facility] [address] [place] [address] Dr. Juan Jose BandaPLT200 103/skFtywrp522-329Hqd [facility] HospitalComment on above: Performed By: #### CBC #### [facility] [address] [place] [address] Dr. Juan Jose BandaRBC4.56 106/ulNormal4.20-5.40The [facility] HospitalComment on above:Performed By: #### CBC #### [facility] [address] [place] [address] Dr. Juan Jose BandaWBC6.5 103/ulNormal4.0-11.0The [facility] HospitalComment on above: Performed By: #### CBC #### [facility] [address] [place] [address] Dr. Juan Jose BandaCT ABD/PELV W CONon 17-67-9485UY ABD/PELV W CONEXAMINATION: CT ABD/PELV W CON [...] Electronically authenticated by: YO TO Date: 2022-04-10 08:[address] [place], [place] [address]GROUP A STREP CULTUREon 04-10-2022. pyogenes Ag Ql (Unsp spec) Culture Observations: NEGATIVE FOR GROUP A STREPTOCOCCUS.NormalThe [facility] Hospitalment on above: Performed By: #### URCX #### [facility] [address] [place] [address] Dr. Juan Jose BandaLACTATE/LACTIC ACIDon 94-11-6786Etelqdv [Moles/Vol]0.9 mmol/L Normal0.4-1.9The [facility] HospitalComment on above:Performed By: #### URCX #### [facility] [address] [address] [address] Juan Jose Iversonctate [Moles/Vol]2.5 mmol/LCritically high0.4-1.9The [facility] Hospitalment on above:Performed By: #### URCX #### [facility] [address] [place] [address] Dr. Juan Jose Hamm HCG QUALon 40-44-0505JIBIVPFXB, QUALNegativeNormalNEGATIVE The [facility] HospitalComment on above:Performed By: #### SEDR #### [facility] [address] [place] [address] Dr. Juan Jose Oneill 14(COMP METB)on 05-89-9707Zhqgegl [Mass/Vol]4.3 g/dLNormal 3.4-5.0The [facility] HospitalComment on above:Performed By: #### DOUG #### [facility] [address] [place] [address] Dr. Juan Jose BandaAlbumin/Globulin [Mass ratio]1.8 {ratio}NormalThe [facility] Hospitalment on above:Performed By: #### MAINEMAN #### [facility] [address] [place] [address] Dr. Juan Jose Hugo [Catalytic activity/Vol]92 U/UZvajhq67-701Uxu [facility] Hospitalment on above:Performed By: #### DOUG #### [facility] [address] [place] [address] Dr. Juan Jose Stafford [Catalytic activity/Vol]20 U/ZRvahqu26-89Mgq [facility] HospitalComment on above:Performed By: #### MAINEMAN #### [facility] [address] [place] [address] Dr. Juan Jose Mcmahon gap [Moles/Vol]15.4 mmol/LNormalThe [facility] on above:Performed By: #### CBCJESSICA #### [facility] [address] [place] [address] Dr. Yilan ChangAST [Catalytic activity/Vol]17 U/RHapack55-37Qfe [facility] HospitalComment on above:Performed By: #### DOUG #### [facility] [address] [place] [address] Dr. Juan Jose BandaBilirubin [Mass/Vol]1.2 mg/dLCritically high0.2-1.0The [facility] HospitalComment on above:Performed By: #### DOUG #### [facility] [address] [place] [address] Dr. Juan Jose BandaCalcium [Mass/Vol]8.8 mg/dLNormal8.5-10.1The [facility] Comment on above:Performed By: #### DOUG #### [facility] [address] [place] [address] Dr. Juan Jose BandaChloride [Moles/Vol]107 mmol/BCqulmt02-284Gkl [facility] Comment on above:Performed By: #### DOUG #### [facility] [address] [place] [address] Dr. Juan Jose BandaCO2 [Moles/Vol]23.0 mmol/NZxcbax78.0-32.0The [facility] Comment on above:Performed By: #### DOUG #### [facility] [address] [place] [address] Dr. Juan Jose BandaCreatinine [Mass/Vol]0.95 mg/dLNormal0.55-1.02The [facility] HospitalComment on above:Performed By: #### DOUG #### [facility] [address] [place] [address] Dr. Juan Jose BandaGlobulin (S) [Mass/Vol]2.4 g/dLNormalThe [facility] HospitalComment on above:Performed By: #### DOUG #### [facility] [address] [place] [address] Dr. Juan Jose BandaGlucose [Mass/Vol]95 mg/qKEtunns86-060DezWayne Healthcare Main Campus Comment on above:Performed By: #### DOUG #### [facility] [address] [place] [address] Dr. Juan Jose BandaPotassium [Moles/Vol]3.4 mmol/LCritically low3.5-5.1The [facility] HospitalComment on above:Performed By: #### DOUG #### [facility] [address] [place] [address] Dr. Juan Jose BandaProtein [Mass/Vol]6.7 g/dLNormal6.4-8.2The [facility] Comment on above:Performed By: #### DOUG #### [facility] [address] [place] [address] Dr. Juan Jose BandaSodium [Moles/Vol]142 mmol/SSezgqq105-528Nxr [facility] Comment on above:Performed By: #### DOUG #### [facility] [address] [place] [address] Dr. Juan Jose BandaUrea nitrogen [Mass/Vol]13.0 mg/dLNormal6.4-19.3The [facility] HospitalComment on above:Performed By: #### DOUG #### [facility] [address] [place] [address] Dr. Juan Jose Thompson nitrogen/Creatinine [Mass ratio]13.7 mg/mgNormalThe [facility] HospitalComment on above:Performed By: #### DOUG #### [facility] [address] [place] [address] Dr. Juan Jose Barton RATE WESTERGRENon 88-06-4808PYS RATE1 mm/hrNormal<=20The [facility] HospitalComment on above:Performed By: #### SEDR #### [facility] [address] [place] [address] Dr. Juan Jose BandaSTREPT SCREENon 92-02-2758CPWPU SCREEN ANegativeNormalNEGATIVEThe [facility] HospitalComment on above:Performed By: #### URCX #### [facility] [address] [place] [address] Dr. Juan Jose BandaAMYLASEon 38-47-4594Sitkfcr [Catalytic activity/Vol]29 U/LNormal 25-115The [facility] HospitalComment on above:Performed By: #### HIV12 #### [facility] [address] [place] [address] Dr. Juan Jose Rosado AUTO DIFFon 69-25-4044WBGA #0.0 103/ulNormal0.0-0.1The [facility] HospitalComment on above:Performed By: #### RPRQ #### [facility] [address] [place] [address] Dr. Juan Jose BandaBasophils/100 WBC (Bld)0.4 %Normal0.2-2.0The [facility] Comment on above:Performed By: #### RPRQ #### [facility] [address] [place] [address] Dr. Juan Jose Sims #0.1 103/ulNormal0.0-0.7The [facility] HospitalComment on above: Performed By: #### RPRQ #### [facility] [facility] [address] [place] [address] Dr. Juan Jose Faustosinophils/100 WBC (Bld)1.4 %Normal0.9-7.0The [facility] Comment on above:Performed By: #### RPRQ #### [facility] [address] [place] [address] Dr. Juan Jose Faustrythrocyte distribution width (RBC) [Ratio]11.5 %Ntslec24.0-15.0 [facility] HospitalComment on above:Performed By: #### RPRQ #### [facility] [address] [place] [address] Dr. Juan Jose BandaHematocrit (Bld) [Volume fraction]36.5 %Bzclqi46.0-48.0The [facility] HospitalComment on above:Performed By: #### RPRQ #### [facility] [address] [place] [address] Dr. Juan Jose BandaHemoglobin (Bld) [Mass/Vol]13.0 g/kGFffvvb21.0-16.0The [facility] HospitalComment on above:Performed By: #### RPRQ #### [facility] [address] [place] [address] Dr. Juan Jose Daugherty #0.02 10e3/ulNormal0.00-0.03The [facility] HospitalComment on above:Performed By: #### RPRQ #### [facility] [address] [place] [address] Dr. Juan Jose Daugherty %0.3 %Normal0.0-0.5The [facility] HospitalComment on above: Performed By: #### RPRQ #### [facility] [address] [place] [address] Dr. Juan Jose Banerjee #2.4 103/ulNormal1.2-3.8The [facility] HospitalComment on above:Performed By: #### RPRQ #### [facility] [address] [place] [address] Dr. Juan Jose Martinhocytes/100 WBC (Bld)31.4 %Pmmbmd86.5-60.0The [facility] HospitalComment on above:Performed By: #### RPRQ #### [facility] [address] [place] [address] Dr. Juan Jose FullerUAL DIFF REQNONormalThe [facility] HospitalComment on above: Performed By: #### RPRQ #### [facility] [address] [place] [address] Dr. Juan Jose Toure (RBC) [Entitic mass]29.8 gvRiswha65.7-34.0The [facility] HospitalComment on above:Performed By: #### RPRQ #### [facility] [address] [place] [address] Dr. Juan Jose Toure (RBC) [Mass/Vol]35.6 g/dLCritically high29.9-35.2The [facility] HospitalComment on above:Performed By: #### RPRQ #### [facility] [address] [place] [address] Dr. Juan Jose Toure (RBC) [Entitic vol]83.7 mTElikij01.0-99.0The [facility] HospitalComment on above:Performed By: #### RPRQ #### [facility] [address] [place] [address] Dr. Juan Jose Pedro #0.9 103/ulCritically high0.3-0.8The [facility] Comment on above:Performed By: #### RPRQ #### [facility] [address] [place] [address] Dr. Juan Jose Puriocytes/100 WBC (Bld)11.1 %Normal1.7-12.0The [facility] Comment on above:Performed By: #### RPRQ #### [facility] [address] [place] [address] Dr. Juan Jose Farr #4.3 103/ulNormal1.4-6.5The [facility] HospitalComment on above:Performed By: #### RPRQ #### [facility] [address] [place] [address] Dr. Juan Jose Nyeutrophils/100 WBC (Bld)55.4 %Zpodnq17.0-75.0The [facility] HospitalComment on above:Performed By: #### RPRQ #### [facility] [address] [place] [address] Dr. Juan Jose Muñozlet mean volume (Bld) [Entitic vol]11.6 fLNormal9.5-13.5The [facility] HospitalComment on above:Performed By: #### RPRQ #### [facility] [address] [place] [address] Dr. Juan Jose BandaPLT187 103/wnIlgitf787-966Psu [facility] HospitalComment on above: Performed By: #### RPRQ #### [facility] [address] [place] [address] Dr. Juan Jose BandaRBC4.36 106/ulNormal4.20-5.40The [facility] HospitalComment on above:Performed By: #### RPRQ #### [facility] [address] [place] [address] Dr. Juan Jose BandaWBC7.7 103/ulNormal4.0-11.0[facility]Comment [facility] above: Performed By: #### RPRQ #### [facility] [address] [address] [address] Juan Jose Pimentel URINE PROFILEon 46-48-8522Qhpthtjqu Ql (U)SMALLAbnormal NEGATIVEWayne Healthcare Main CampusCommclaren caro region on above:Performed By: #### URCX #### [facility] [address] [place] [address] Dr. Juan Jose BandaClarity (U)CLEARNormalCLEARDoctors Hospital on above: Performed By: #### URCX #### [facility] [address] [place] [address] Dr. Juan Jose Connelllor (U)YELLOWNormalYELLOWDoctors Hospital on above: Performed By: #### URCX #### [facility] [address] [place] [address] Dr. Juan Jose Mtz micrscopic examination will be performed if indicated. NormalWayne Healthcare Main CampusCommclaren caro region on above:Performed By: #### URCX #### [facility] [address] [place] [address] Dr. Juan Jose BandaGlucose Ql (U)NegativeNormalNEGATIVEDoctors Hospital on above:Performed By: #### URCX #### [facility] [address] [place] [address] Dr. Juan Jose BandaHemoglobin Ql (U)NegativeNormalNEGWexner Medical Center Comment on above:Performed By: #### URCX #### [facility] [address] [place] [address] Dr. Juan Jose BandaKetones Ql (U)40 mg/dlAbnormalNEGWexner Medical Center Comment on above:Performed By: #### URCX #### [facility] [address] [place] [address] Dr. Juan Jose BandaLEUKOCYTESNegativeNormalNEGATIVEDoctors Hospital on above:Performed By: #### URCX #### [facility] [address] [place] [address] Dr. Juan Jose Rey Ql (U)NegativeNormalNEGATIVEWayne Healthcare Main CampusComment on above:Performed By: #### URCX #### [facility] [address] [place] [address] Dr. Juan Jose BandapH (U)5.5 [pH]Normal5-9The [facility] HospitalComment on above: Performed By: #### URCX #### [facility] [address] [place] [address] Dr. Juan Jose BandaSPEC GRAVITY1.739Ceflcwjv6.005-<=1.025The [facility] Comment on above:Performed By: #### URCX #### [facility] [address] [place] [address] Dr. Juan Jose Hinton PROTEINNegativeNormalNEGATIVE/ TRACEThe [facility] Comment on above:Performed By: #### URCX #### [facility] [address] [place] [address] Dr. Juan Jose Anne MICRO INDNOT INDICATEDNormalThSouthview Medical CenterComment on above:Performed By: #### URCX #### [facility] [address] [place] [address] Dr. Juan Joes Jiménezbilinogen Qn (U)0.2 {Tyler'U}/dLNormal0.2 - 1.0Way[facility] Healthcare Main CampusComment on above:Performed By: #### URCX #### [facility] [address] [place] [address] Dr. Juan Jose BandaLIPASEon 50-59-2087Caixlb [Catalytic activity/Vol]77.0 U/LNormal 73.0-393.0The [facility] HospitalComment on above:Performed By: #### HIV12 #### [facility] [address] [place] [address] Dr. Juan Jose BandaPREGNANCY URon 28-87-3213IJWDCSWHE, QUALNegativeNormalNEGATIVEWayne Healthcare Main CampusComment on above:Performed By: #### URCX #### [facility] [address] [place] [address] Dr. Juan Jose Oneill 14(COMP METB)on 07-08-3821Ernwduz [Mass/Vol]4.4 g/dLNormal 3.4-5.0The [facility] HospitalComment on above:Performed By: #### HIV12 #### [facility] [address] [place] [address] Dr. Juan Jose BandaAlbumin/Globulin [Mass ratio]1.5 {ratio}NormalThe [facility] HospitalComment on above:Performed By: #### HIV12 #### [facility] [address] [place] [address] Dr. Juan Jose Hugo [Catalytic activity/Vol]97 U/FAtugim21-806Huy [facility] HospitalComment on above:Performed By: #### HIV12 #### [facility] [address] [place] [address] Dr. Juan Jose Stafford [Catalytic activity/Vol]16 U/CQvgurh62-59Jwu [facility] HospitalComment on above:Performed By: #### HIV12 #### [facility] [address] [place] [address] Dr. Juan Jose Mcmahon gap [Moles/Vol]15.4 mmol/LNormalThe [facility] Comment on above:Performed By: #### HIV12 #### [facility] [address] [place] [address] Dr. Juan Jose BandaAST [Catalytic activity/Vol]19 U/XNvisty10-66Fjh [facility] HospitalComment on above:Performed By: #### HIV12 #### [facility] [address] [place] [address] Dr. Juan Jose BandaBilirubin [Mass/Vol]0.9 mg/dLNormal0.2-1.0The [facility] Comment on above:Performed By: #### HIV12 #### [facility] [address] [place] [address] Dr. Juan Jose BandaCalcium [Mass/Vol]9.2 mg/dLNormal8.5-10.1The [facility] Comment on above:Performed By: #### HIV12 #### [facility] [address] [address] [address] Juan Jose BandaChloride [Moles/Vol]107 mmol/OThismm31-765Pbg [facility] Comment on above:Performed By: #### HIV12 #### [facility] [address] [address] [address] Juan Jose BandaCO2 [Moles/Vol]22.2 mmol/LIpuosw25.0-32.0The [facility] Comment on above:Performed By: #### HIV12 #### [facility] [address] [place] [address] Dr. Juan Jose BandaCreatinine [Mass/Vol]0.94 mg/dLNormal0.55-1.02The [facility] HospitalComment on above:Performed By: #### HIV12 #### [facility] [address] [place] [address] Dr. Juan Jose FaustGFR-AF DJIBOUTIAN>60Normal>=60The [facility] HospitalComment on above:Performed By: #### HIV12 #### [facility] [address] [place] [address] Dr. Juan Jose FaustGFR-NON AF DJIBOUTIAN>60Normal>=60Way[facility] Healthcare Main CampusComment on above:Performed By: #### HIV12 #### [facility] [address] [place] [address] Dr. Juan Jose BandaGlobulin (S) [Mass/Vol]2.9 g/dLNormalThe [facility] HospitalComment on above:Performed By: #### HIV12 #### [facility] [address] [address] [address] Juan Jose BandaGlucose [Mass/Vol]93 mg/mCMdqplt59-304CsyWayne Healthcare Main Campus Comment on above:Performed By: #### HIV12 #### [facility] [address] [place] [address] Dr. Juan Jose BandaPotassium [Moles/Vol]3.6 mmol/LNormal3.5-5.1The [facility] Comment on above:Performed By: #### HIV12 #### [facility] [address] [place] [address] Dr. Juan Jose BandaProtein [Mass/Vol]7.3 g/dLNormal6.4-8.2The [facility] Comment on above:Performed By: #### HIV12 #### [facility] [address] [address] [address] Juan Jose BandaSodium [Moles/Vol]141 mmol/QHjdiqt793-922Gld [facility] Comment on above:Performed By: #### HIV12 #### [facility] [address] [address] [address] Juan Jose BandaUrea nitrogen [Mass/Vol]14.0 mg/dLNormal6.4-19.3The [facility] HospitalComment on above:Performed By: #### HIV12 #### [facility] [address] [place] [address] Dr. Juan Jose Thompson nitrogen/Creatinine [Mass ratio]14.9 mg/mgNormalThe [facility] HospitalComment on above:Performed By: #### HIV12 #### [facility] [address] [place] [address] Dr. Juan Jose BandaHCG-BETA SUBUNIT QUANTon 06-06-5404pVA,Beta Subunit,Qnt,Serum<1 NormalThe [facility] HospitalComment on above:Result Comment: Female (Non- ) 0 - 5 (Postmenopausal) 0 - 8 . Female () Weeks of Gestation 3 6 - 71 4 10 - 750 5 217 - 7138 6 158 - 32003 7 7885 -366273 8 96720 -446688 9 14610 -567250 54754 -157218 12 19522 -249918 14 52164 - 42940 15 15035 - 37983 16 2860 - 36161 17 2449 - 76495 18 0086 - 31290 Serena ECLIA methodologyPerformed By: #### RPRQ #### [facility] [address] [place], [place] [address] Dr. Juan Jose Banda Vital Signs Date TimeVital SignValuePerforming XjdegxdshChotfahy24-04-8147 16:03-0500Body mass index (BMI) [Ratio]26.63 kg/m2Gogo MARTINEZ Work Phone: [phone] [place], [place] [address]Uhintcgdmz30-68-0862 16:03-0500Body xyorfs21.84 kgGogo Schafferantonio MARTINEZ Work Phone: [phone])897-[address] [place], [place] [address]Fibjwzwznb17-69-1642 16:03-0500Diastolic blood thplefdq90 mm[Hg]Gogo Schafferey PA Work Phone: [phone])646-[address] [place], [place] [address]Vogkvbsnbb97-76-1235 16:03-0500Systolic blood adfihfdd763 mm[Hg]Gogo Schafferey PA Work Phone: [phone])[facility] [place], [place] [address]Ityflpffff87-58-0349 16:15-0400Body mass index (BMI) [Ratio]25.89 kg/o1Godba Yasmin DO Work Phone: 1(948)[address] [place], [place] 1258310-20-2025 16:15-0400Body acgabg28.76 kgCorey Yasmin DO Work Phone: [phone] [place], [place] 1258310-20-2025 16:15-0400Diastolic blood mm[Hg]Wolfgang Yasmin DO Work Phone: [phone])[address] [place], [place] 1258310-20-2025 16:15-0400Systolic blood ftwtkutb213 mm[Hg]Wolfgang Yasmin DO Work Phone: [phone])[address] [place], [place] 1258310-06-2025 15:50-0400Body mass index (BMI) [Ratio]24.99 kg/b6BuqanjhmElvia Gustafsonly LACQUER DIPPING MACHINE OPERATOR Work Phone: [phone])[address] [place], [place] 1258310-06-2025 15:50-0400Body .22 kgKrpoojaa Rajinder [employer]ACQUER DIPPING MACHINE OPERATOR Work Phone: [phone])[address] [place], [place] 1258310-06-2025 15:50-0400Diastolic blood dpfbsefo91 mm[Hg]Elvia Rajinder [employer]ACQUER DIPPING MACHINE OPERATOR Work Phone: [phone])[address] [place], [place] 1258310-06-2025 15:50-0400Systolic blood poahayzd207 mm[Hg]Elvia Rajinder LACQUER DIPPING MACHINE OPERATOR Work Phone: [phone])[address] [place], [place] 1258309-22-2025 15:42-0400Body mass index (BMI) [Ratio]24.37 kg/e6Vqtty Yasmin DO Work Phone: [phone] [place], [place] [address]Abhqdoiqub00-42-1863 15:42-0400Body rbwlco16.49 kgCorey Yasmin DO Work Phone: [phone] [place], [place] [address]Mhkkuvjutk76-70-9132 15:42-0400Diastolic blood pegfamqy61 mm[Hg]Wolfgang Yasmin DO Work Phone: [phone])079-[address] [place], [place] [address]Vsywvscfui61-90-9138 15:42-0400Systolic blood rmomfdwh739 mm[Hg]Wolfgang Yasmin DO Work Phone: [phone] [place], [place] [address]Srqjgovuth39-56-1575 15:25-0400Body mass index (BMI) [Ratio]24.45 kg/r0YhihizaoElvia Calvillo [employer]ACQUER DIPPING MACHINE OPERATOR Work Phone: [phone] [place], [place] [address]Qxzlihjabb80-37-2182 15:25-0400Body wybtsr68.72 kgElvia Calvillo LACQUER DIPPING MACHINE OPERATOR Work Phone: [phone])230-[address] [place], [place] [address]Glcnaendtk16-99-5311 15:25-0400Diastolic blood qkuyribc51 mm[Hg]Elvia Calvillo LACQUER DIPPING MACHINE OPERATOR Work Phone: [phone] [place], [place] [address]Eikgqijzqt47-35-7470 15:25-0400Systolic blood gmzbveft873 mm[Hg]Elvia Calvillo LACQUER DIPPING MACHINE OPERATOR Work Phone: 1(537)[facility] [place], [place] [address]Tzpsmtvimv62-08-3277 15:58-0400Body mass index (BMI) [Ratio]23.53 kg/h4Pgpco Yasmin DO Work Phone: [phone] [place], [place] [address]Qqztkbujfp00-32-3785 15:58-0400Body yndoao21.13 kgCorey Yasmin DO Work Phone: 1(811)[facility] [place], [place] [address]Wmwugmghzg50-12-5629 15:58-0400Diastolic blood afnqvykp97 mm[Hg]Wolfgang Yasmin DO Work Phone: 1(078)[facility] [place], [place] [address]Xscqqfxcwm65-00-4447 15:58-0400Systolic blood qypmonjc209 mm[Hg]Wolfgang Yasmin DO Work Phone: [phone] [place], [place] [address]Qmkfhqkdeb00-58-6837 15:21-0400Body mass index (BMI) [Ratio]23.69 kg/f1Jjczr Yasmin DO Work Phone: [phone] [place], [place] [address]Lxtetgajhd32-32-9500 15:21-0400Body .59 kgCorey Yasmin DO Work Phone: [phone])406-[facility] HospitalMqgwehguuu99-50-1870 15:21-0400Diastolic blood odlilylh00 mm[Hg]Wolfgang Yasmin DO Work Phone: [phone] [place], [place] [address]Tjbwqtfqkx13-55-1537 15:21-0400Systolic blood awgoaqlt784 mm[Hg]Wolfgang Yasmin DO Work Phone: [phone] [place], [place] [address]Cbuunfbjmq50-64-0027 13:43-0400Body mass index (BMI) [Ratio]21.95 kg/b6Pebsj Yasmin DO Work Phone: [phone] [place], [place] [address]Nattxloktn48-17-0557 13:43-0400Body ghutwx83.69 kgCorey Yasmin DO Work Phone: [phone])100-[address] [place], [place] [address]Kbyswxxntw52-10-2524 13:43-0400Diastolic blood nijmgpxi54 mm[Hg]Wolfgang Yasmin DO Work Phone: 1(455)463-[address] [place], [place] [address]Hjyhgspmgj86-78-3985 13:43-0400Systolic blood fzfwgypr613 mm[Hg]Wolfgang Yasmin DO Work Phone: [phone])198-[address] [place], [place] [address]Qbdxhydjua62-64-9596 13:24-0400Body mass index (BMI) [Ratio]22.11 kg/m2[facility]05-01-2025 13:24-0400Body pwoktc78.14 kg[facility]05-[facility] 13:24-0400Diastolic blood looydlys01 mm[Hg][facility]05-01-2025 13:24-0400Systolic blood bleceenb321 mm[Hg][facility]04-03-2025 11:15-0400Body mass index (BMI) [Ratio]21.69 kg/g8Ytkrj Yasmin DO Work Phone: [phone]-[facility]HealthSaint [facility] HospitalNkriqwzhhc73-83-6243 11:15-0400Body jwykor23.96 kgCorey Yasmin DO Work Phone: [facility] HospitalKjndbaznpq23-33-5313 11:15-0400Diastolic blood yyupxovc13 mm[Hg]Wolfgang Hoffman DO Work Phone: [facility] HospitalXqlttdsbvy53-01-4875 11:15-0400Systolic blood mqsrmuor882 mm[Hg]Wolfgang Hoffman DO Work Phone: [facility] HospitalLgtzpxfrkm89-38-3350 10:03-0400Body xijlia366.3 cmViki Patel 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 [employer] Work Phone: [facility]03-12-2024 10:03-0400Body mass index (BMI) [Ratio]19.73 kg/p9EmriisnViki Patel 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 [employer] Work Phone: [facility]03-12-2024 10:03-0400Body xuiipj32.6 kgViki Patel 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 [employer] Work Phone: [facility]03-12-2024 10:03-0400Diastolic blood ufzokkpx27 mm[Hg]Viki Patel 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 [employer] Work Phone: [facility] [employer] Ycwlme95-61-2899 10:03-0400Heart rate 74 /minViki Patel 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 [employer] Work Phone: [facility]03-12-2024 10:03-0400Systolic blood dfjkatow904 mm[Hg]Viki 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 [employer] Work Phone: [facility]02-21-2024 09:20-0500Body .[address]02-21-2024 09:20-0500Body mass index (BMI) [Ratio]19.64 kg/m2Pmh [address] [place], [place] 9732402-21-2024 09:20-0500Body vtxqpe82.[address] [place] [address] Encounters Encounter DateEncounter TypeCare ProviderFacilityStart: 06-10-2025 End: 98-78-5185Lomotn outpatient visit 15 minutesAmy Poly MARTINEZ Work Phone: [facility] OBGYNComment on above:Third trimester ([facility]); 35 weeks gestation of ([facility]); Psychogenic nonepileptic seizureStart: 05-27-2025 End: 32-54-5336Xekmxz outpatient visit 15 minutesCorey Yasmin DO Work Phone: [facility] OBGYNComment on above: size inconsistent with dates ([facility]) (Primary Dx); 33 weeks gestation of ([facility]); Third trimester ([facility]); Psychogenic nonepileptic seizureStart: 05-27-2025 End: 81-99-2530ergwekfkraLXCLR FAZIONot AvailableStart: 05-27-2025 End: 07-26-5978Pblnvc flowsheetCorey Yasmin DO Work Phone: [facility] OBGYNStart: 05-27-2025 End: 37-04-7392Cobmok flowsheetCorey Yasmin DO Work Phone: [facility]BGYNStart: 05-13-2025 End: 64-88-1710Pmzajw outpatient visit 15 minutesElvia Calvillo LACQUER 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 MACHINE OPERATOR Work Phone: [facility] OBGYNComment on above:31 weeks gestation of ([facility]); Third trimester ([facility])Start: 05-13-2025 End: 37-23-7487hvhqpyuthvKCCQTSDX EBERLYNot AvailableStart: 04-30-2025 End: 70-35-6105Aifasugmk Result EncounterCorey Yasmin DO Work Phone: [facility] External Department UnsolicitedStart: 04-30-2025 End: 88-03-3842Bhkhckkux Result EncounterCorey Yasmin DO Work Phone: [facility] External Department UnsolicitedStart: 04-29-2025 End: 84-01-7749Yohbgv outpatient visit 15 minutesCorey Yasmin DO Work Phone: [facility]BGYNComment on above:Third trimester ([facility]); 29 weeks gestation of ([facility]); Psychogenic nonepileptic seizure ; Diabetes mellitus screeningStart: 04-29-2025 End: 58-27-1334qqudbvsrguPTHCT FAZIONot AvailableStart: 04-29-2025 End: 70-91-2287Neuxae flowsheetCorey Yasmin DO Work Phone: [facility] [place] [facility]BGYNStart: 04-29-2025 End: 83-79-2288Paicqg flowsheetCorey Yasmin DO Work Phone: [facility] [place] OBGYNStart: 04-17-2025 End: 52-34-2686kotcstgnnmWKDKOSYU EBERLYNot AvailableStart: 04-17-2025 End: 84-92-6302Cwaavo outpatient visit 15 minutesElvia Calvillo LACQUER DIPPING MACHINE OPERATOR Work Phone: [facility] OBGYNComment on above:Third trimester ([facility]); 28 weeks gestation of ([facility])Start: 04-17-2025 End: 36-43-7371Jzswyg flowsheetElvia Calvillo LACQUER DIPPING MACHINE OPERATOR Work Phone: [facility] [place] [facility]BGYNStart: 04-17-2025 End: 06-16-9617Qqkrwr flowsheetCarleya Rajinder LACQUER DIPPING MACHINE OPERATOR Work Phone: [facility] OBGYNStart: 04-03-2025 End: 02-19-8505thtagxlahtZYNMX FAZIONot AvailableStart: 04-03-2025 End: 38-04-8100Wzhyux outpatient visit 15 minutesCorey Yasmin DO Work Phone: [facility] [place] OBGYNComment on above:Anxiety, generalized (Primary Dx); Second trimester ([facility]); 26 weeks gestation of ([facility]); History of psychogenic nonepileptic seizureStart: 04-03-2025 End: 41-43-7692Hqvkje flowsheetCorey Yasmin DO Work Phone: [facility] [place] [facility]BGYNStart: 04-03-2025 End: 71-82-8054Tnnkix flowsheetCorey Yasmin DO Work Phone: [facility] OBGYNStart: 03-20-2025 End: 77-03-0985Guqzkw outpatient visit 15 minutesGogo MARTINEZ Work Phone: [facility] OBGYNComment on above:Second trimester ([facility]); 24 weeks gestation of ([facility]); Diabetes mellitus screening; Yeast infection; BV (bacterial vaginosis); Urinary tract infection without hematuria, site unspecifiedStart: 03-20-2025 End: 62-66-1384ftwcfhqkzyVWT RAMEYNot AvailableStart: 03-20-2025 End: 00-56-5078Dwzehp Miguel MARTINEZ Work Phone: [facility] [place] OBGYNStart: 03-20-2025 End: 49-58-8202Ksvdut Miguel MARTINEZ Work Phone: [facility] OBGYNStart: 02-25-2025 End: 48-73-1391Fhzjns outpatient visit 15 minutesCorey Yasmin DO Work Phone: [facility] OBComment on above:Second trimester ([facility]); 20 weeks gestation of ([facility])Start: 02-25-2025 End: 53-42-8748bjqjhsegyuFZVYR FAZIONot AvailableStart: 01-29-2025 End: 12-53-3463Xljpew Miguel MARTINEZ Work Phone: [facility] OBStart: 01-29-2025 End: 79-23-2804Hvpwop Miguel MARTINEZ Work Phone: [facility] OBStart: 01-29-2025 End: 68-63-9363Nejjhjsoz Result EncounterGogo MARTINEZ Work Phone: [facility] External Department UnsolicitedStart: 01-29-2025 End: 01-93-1950Qphvcpev Result EncounterGogo MARTINEZ Work Phone: [facility] External Department UnsolicitedStart: 01-29-2025 End: 86-33-8343Ebygjd outpatient visit 15 minutesGogo MARTINEZ Work Phone: [facility] OBComment on above:Well woman exam with routine gynecological exam; Second trimester ([facility]); 16 weeks gestation of ([facility]); Vaginal discharge; STD exposure; Screening, , for anatomic survey ([facility])Start: 01-29-2025 End: 07-41-3493Guavruz encounter procedureGogo MARTINEZ Work Phone: [facility]oms [facility] Work Phone: Start: 01-29-2025 End: 25-48-2103olbydugrrbUFQ RAMEYNot AvailableStart: 01-01-2025 End: 05-38-6089Qmnoke flowsheetCorey Yasmin DO Work Phone: noms [facility] OBStart: 01-01-2025 End: 37-70-7219Ggvhxf flowsheetCorey Yasmin DO Work Phone: [facility]oms [facility] OBStart: 01-01-2025 End: 18-89-0676Uzvtdy outpatient visit 15 minutesCorey Yasmin DO Work Phone: noms [facility] OBComment on above:First trimester ; 12 weeks gestation of ; History of psychogenic nonepileptic seizureStart: 01-01-2025 End: 04-15-5762stmebvkrlcECMAF FAZIONot AvailableStart: 09-38-2952zkmfutgvjh Shivam Lucerocility:[facility] Centertart: 12-07-2024 End: 85-51-0017Djjlpvmfl Result EncounterCorey Yasmin DO Work Phone: noms External Department UnsolicitedStart: 12-07-2024 End: 44-15-1948Gjrlundkd Result EncounterCorey Yasmin DO Work Phone: noms External Department UnsolicitedStart: 12-06-2024 End: 90-73-0893Jkqjbi outpatient visit 5 minutesNoms Bcp Ob Yasmin NurseNOMS BCP OBComment on above:GA: 4l0uBsbyf: 12-06-2024 End: 96-05-4295wqomakbthsNOTMW FAZIONot AvailableStart: 11-08-2024 End: 95-39-2701Mclnib flowsheetCorey Yasmin DO Work Phone: NOMS BCP OBStart: 11-08-2024 End: 71-95-3518Luakwd flowsheetCorey Yasmin DO Work Phone: NOMS BCP OBStart: 11-08-2024 End: 89-09-2108Lyjeke outpatient visit 15 minutesCorey Yamsin DO Work Phone: NOMS BCP OBComment on above:PCOS (polycystic ovarian syndrome) (Primary Dx)Start: 11-08-2024 End: 76-89-5264naqpmalcqkTESVF FAZIONot AvailableStart: 11-02-2024 End: 36-79-1753Xynplgfbe Result EncounterCorey Yasmin DO Work Phone: NOMS External Department UnsolicitedStart: 11-02-2024 End: 04-49-8770Ernemvvtk Result EncounterCorey Yasmin DO Work Phone: NOMS External Department UnsolicitedStart: 10-01-2024 End: 20-96-4799Cfrvmjngt Result EncounterCorey Yasmin DO Work Phone: NOMS External Department UnsolicitedStart: 10-01-2024 End: 52-56-0362Mghkjlibl Result EncounterCorey Yasmin DO Work Phone: NOMS External Department UnsolicitedStart: 09-25-2024 End: 75-06-3062Kdxqdw outpatient visit 15 minutesCorey Yasmin DO Work Phone: NOMS BCP OBComment on above:PCOS (polycystic ovarian syndrome) (Primary Dx)Start: 09-25-2024 End: 22-64-1505hpyyaxkhpgNSKHK FAZIONot AvailableStart: 09-25-2024 End: 42-60-0509Stzcdk flowsheetCorey Yasmin DO Work Phone: noms BCP OBStart: 09-25-2024 End: 07-72-7775Gtrglz flowsheetCorey Yasmin DO Work Phone: noms BCP OBStart: 82-02-0931Iikjpvihw encounterErin Alejandra WATKINSClermont County Hospital Physicians General SurgeryStart: 10-18-2023 End: 23-84-1459kifchlevhzOULGWFWIsland Hospital Amb[facility] Start: 10-18-2023 End: 04-52-4235Ckkfni follow up visit related to original [facility] 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 TREE TRIMMING Work Phone: [facility] Physicians General SurgeryComment on above: Status post laparoscopic cholecystectomy (Primary Dx)Start: 10-03-2023 End: 30-80-2982Thvqrioatp and management of inpatientMercy Health Clermont Hospitaltart: 10-03-2023 End: 63-36-6228Keyazxkavy and management of inpatientCarilion Roanoke Community Hospitaltart: 09-28-2023 End: 70-07-0470npkxusiyomINWBKSanta Ynez Valley Cottage Hospitaltart: 45-77-5988Dvtqemkms for other preprocedural examinationDOUGSycamore Medical Centertart: 09-28-2023 End: 11-54-5049Zjukljl encounter procedurePm Pre-Admission Testing [address] [place] [address] - Pre AdmitComment on above:Preop examination (Primary Dx); Asthma, unspecified asthma severity, unspecified whether complicated, unspecified whether persistentStart: 09-28-2023 End: 61-73-5271Udmbsgzsuvwmt examination done[address]tart: 09-27-2023 End: 25-90-0768jdapvmkpdzJRFFXANGFCCCoulee Medical Center Ambulatory PPG Start: 09-27-2023 End: 68-38-2100Weffqj outpatient new 30 minutesAlo Morgan MD Work Phone: [facility] Physicians General SurgeryComment on above: Biliary colic (Primary Dx)Start: 47-48-6663Udsukndkb encounterAlo Morgan MD Work Phone: ProUniversity [facility] Centerca Physicians General SurgeryStart: 08-30-2023 End: 59-83-1623Bgphwxykpw and management of inpatientJAMAL CHIRRIMercy Dameron Hospitaltart: 07-10-4668cjscfvohkzIQVFNQPDeuel County Memorial Hospital Ambulatory PPGStart: 92-51-5049Kukkvnpnb encounterLaisaura Temple CMAProMedica Physicians General SurgeryStart: 19-23-6283avzvlzdwchSNIRLZPCHRISTUS [facility] Ambulatory PPGStart: 44-34-5326Jvmhwzyqo encounterMicvale Beltre DO Work Phone: Pro[facility] Centerca Physicians General SurgeryStart: 07-29-2023 ambulatoryDouglas HoyFacility:[facility] Livingtart: 07-26-2023 End: 54-51-4487sbbyhzarinFufpfpo HoyFacility:[facility] Livingtart: 07-26-2023 End: 74-82-4758Qbhedjd encounter procedureMichael R NILL [phone]-YvhowFulton County Health Center General Surgery [place] Start: 70-16-9133vhgkwppnynPbwkuhx HoyFacility:[facility] Livingtart: 82-24-0327hhadxrwtymVwdwvne HoyFacility:[facility] PortsmouthevueStart: 87-17-6648Lhpryjbznn and management of inpatientDR WOLFGANG YASMIN .Facility: Start: 68-10-5805Ugbytasbzr and management of inpatientDR WOLFGANG YASMIN . Facility:L4Qndmm: 59-04-0020ocoejfvcvlLS WOLFGANG YASMIN .Facility:C3Oobkl: 01-01-2023 End: 37-55-6482lhaqpouxyiFQ WOLFGANG YASMIN .Facility:H7Zaocu: 12-31-2022 End: 13-49-8603vcemisldyoHP WOLFGANG YASMIN .Facility:T6Ldoqo: 12-28-2022 End: 22-92-9684piwclibkcdXM WOLFGANG YASMIN .Facility:Y6Zitep: 12-24-2022 End: 75-11-4877xzikkfvkaqFU WOLFGANG YASMIN .Facility:I4Yijvi: 12-22-2022 End: 59-04-1557ayoaxhosaqFD WOLFGANG YASMIN .Facility:Y1Mfglz: 12-20-2022 End: 94-98-4980rzmyedtcnvTX WOLFGANG YASMIN .Facility:V3Eshoo: 12-17-2022 End: 67-83-4391znunbinrxhIO JAYSON HERNÁNDEZ .Facility:K4Jlezz: 11-04-2022 End: 58-17-1677unbizyqgfiFPRMWD DIAB .Facility:X2Corck: 10-01-2022 End: 97-69-9680gyvlxskptmPA WOLFGANG YASMIN .Facility:B0Grits: 09-28-2022 End: 76-35-9365ypzhsyrzhtOU LUISA ARCHIBALDFacility:S1Wuqnm: 08-25-2022 End: 84-59-9936rsfwcnwjbvVOS POLY .Facility:Q6Hscim: 08-24-2022 End: 03-95-2766tdouukealkNR WOLFGANG YASMIN .Facility:N2Rdvja: 06-25-2022 End: 26-97-4872zfercxtzorUK RASHARD MONTEZ .Facility:P6Rieqs: 06-20-2022 End: 13-95-2199hyiqohvphtWBPMES RADHA .Facility:C2Yyipc: 06-18-2022 End: 96-55-3620kmwydbiatrEB WOLFGANG YASMIN .Facility:Z6Hgyvy: 06-02-2022 End: 59-85-5489bpycjvfhsnPL GUSTAVO VIDALFacility:G9Adrjc: 05-25-2022 End: 56-67-3301fbapzrjfnvTNVSM PARKERFacility:W3Afyab: 04-29-2022 End: 97-34-6121sjomroecwbHK GUSTAVO VIDALFacility:L2Ufqhn: 04-10-2022 End: 34-74-1786optqsgkawbSHRQT PARKERFacility:W8Gzhsh: 04-07-2022 End: 85-84-4534gawyuqraytMC GUSTAVO VIDALFacility:G3Gvtdz: 04-07-2022 End: 78-19-0597lgkzrritjtXDJDN PARKERFacility:A3Ennkn: 02-22-2022 End: 46-05-0225symwheaexkJP RASHARD MONTEZ .Facility: Procedures DateProcedureProcedure DetailPerforming ClinicianStart: 49-07-1466Gyxpy dip stick/tablet rgnt non-auto w/o micrscpAmy Poly MARTINEZ Work Phone: Start: 19-50-7089Srmtq dip stick/tablet rgnt non-auto w/o micrscpCorey Yasmin DO Work Phone: Start: 64-42-5972Hmnof dip stick/tablet rgnt non-auto w/o micrscpKristina Rajinder LACQUER DIPPING MACHINE OPERATOR Work Phone: Start: 32-15-2566BJC CBC WITH AUTO DIFFCorey Yasmin DO Work Phone: Start: 44-94-2903Jhwte dip stick/tablet rgnt non-auto w/o micrscpCorey Yasmin DO Work Phone: Start: 50-37-8017Napif dip stick/tablet rgnt non-auto w/o micrscpKristina Rajinder LACQUER DIPPING MACHINE OPERATOR Work Phone: Start: 75-21-5110Pqeek dip stick/tablet rgnt non-auto w/o micrscpKristina Rajinder LACQUER DIPPING MACHINE OPERATOR Work Phone: Start: 85-50-2027Tbhzk dip stick/tablet rgnt non-auto w/o micrscpCorey Yasmin DO Work Phone: Start: 77-18-2911EMKUKRFCX VAGINITIS (HTRX)Gogo MARTINEZ Work Phone: Start: 90-12-1818ZVY,APTIMA HPV,AGE GDLNAmy Poly MARTINEZ Work Phone: Start: 15-51-3838JLY TESTCorey Yasmin DO Work Phone: Start: 67-94-5297Mjpdj dip stick/tablet rgnt non-auto w/o micrscpCorey Yasmin DO Work Phone: Start: 33-43-8758SSH PREG QUANT HCGCorey Yasmin DO Work Phone: Start: 66-22-4755KTM CBC WITH AUTO DIFFCorey Yasmin DO Work Phone: appendectomyMichael NILL History of cholecystectomyStatus post laparoscopic cholecystectomyJessica Airam Patel 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 TREE TRIMMING Work Phone: Plan of Treatment DateCare ActivityDetailAuthorStart: 07-61-5152PXvH,Tdap and Td Vaccines (7 - Td or Tdap)DTaP,Tdap and Td Vaccines (7 - Td or Tdap)[facility] SystemStart: 07-17-2025 End: 95-92-8114yldsnzloog43/10/2025 3:40 PM EST Visit PIYUSH COSTA [address] [facility] [address] [place], [id number] Wolfgang Hoffman DO [address] [place] [address] NOMLisa [place] OBGYNStart: 06-19-2025 End: 92-64-7287Wwtgizs encounter nnsksozja54/12/2025 3:30 PM EST Routine NOMLisa COSTA [address] [facility] [place], [id number] Wolfgang Hoffman DO [address] [place] [address] NOMLisa [place] OBGYNStart: 06-10-2025 End: 63-57-1462Cjeqmre encounter lfgzfjeki91/03/2025 3:50 PM EST Routine NOMLisa COSAT [address] [facility] [place], [id number] Gogo Pang, PA [address] [facility] [address] [place] [address] NOMLisa Toño OBGYNStart: 06-10-2025 End: 76-29-8146NWJQDKQ, GROUP B STREP WITH SUSCEPTIBLITYCULTURE, GROUP B STREP WITH SUSCEPTIBLITY Lab Routine Third trimester ([facility]) Expected: 06/10/2025, Expires: 06/10/2026[facility] Work Phone: comment on above:Expected: 06/10/2025, Expires: 06/10/2026Start: 05-27-2025 End: 58-00-1120Esnwibj encounter procedureNO Toño OBGYNComment on above: ArrivedStart: 05-27-2025 End: 72-35-4004VV for pregnancyUS OB follow up transabdominal approach Imaging Routine size inconsistent with dates ([facility]) Expected: 05/27/2025, Expires: 09/27/2025[facility] Work Phone: comment on above:Expected: 05/27/2025, Expires: 09/27/2025Start: 05-15-2025 End: 02-73-3386Awucezp encounter wplgxkdod09/08/2025 3:40 PM EDT Routine NOMLisa COSTA [address] [facility] [address] [place], [id number] Elvia Calvillo, LACQUER DIPPING MACHINE OPERATOR [address] [facility] [address] [place] [address] NOMLisa [place] OBGYNStart: 04-29-2025 End: 06-76-5776Vkfyjwv encounter qynbsndlv14/22/2025 3:20 PM EDT Routine NOMS [place] OBGYN [address] [address] [place], [id number] Wolfgang Hoffman DO [address] [facility] [address] [place] [address] ArrivedPIYUSH Highevue OBGYNComment on above:ArrivedStart: 04-29-2025 End: 89-78-3893LKL W Auto Differential panel - BloodCBC and differential Lab Routine Diabetes mellitus screening Expected: 04/29/2025 (Approximate), Expires: 04/29/2026[facility] Work Phone: comment on above:Expected: 04/29/2025 (Approximate), Expires: 04/29/2026Start: 04-17-2025 End: 46-08-9384Gtczify encounter pkyysovzw71/10/2025 3:40 PM EDT Routine NOM[facility] [place] [facility] [address] [address] [place], [phone] Wolfgang Hoffman, [address] [facility] [address] [place] [address] NOMS Toño OBGYNStart: 69-34-4298UGKGO- 19 Vaccine ( season)COVID-19 Vaccine ( season)NOMS HealthcareStart: 61-95-3795Emplvwosg vaccinationInfluenza Vaccine (#1)NOMS HealthcareStart: 04-03-2025 End: 11-47-7112Djlcvqz encounter qmfptkqbe66/27/2025 3:40 PM EDT Routine NOMS [place] [facility] [address] [facility] [place], [id number] Wolfgang Hoffman, DO [address] [facility] [address] [place] [address] NOMS [place] OBGYNStart: 03-20-2025 End: 01-45-1869Zouwisj encounter pswmbykic12/13/2025 3:40 PM EDT Routine NOMS [place] [facility] [address] [facility] [address] [place], [phone] Gogo Pang, PA [address] [facility] [address] [place] [address] Olman [place] OBGYNComment on above:ArrivedStart: 03-20-2025 End: 95-29-2065LSH panel - Blood by Automated countCBC Lab Routine Diabetes mellitus screening Expected: 03/20/2025 (Approximate), Expires: 03/20/2026[facility] Work Phone: comment on above:Expected: 03/20/2025 (Approximate), Expires: 03/20/2026Start: 03-20-2025 End: 83-51-3732Sthodoujusv of glucose 1 hour after glucose challenge for glucose tolerance testGlucose tolerance, 1 hour Lab Routine Diabetes mellitus screening Expected: 03/20/2025 (Approximate), Expires: 03/20/2026[facility] HealthcareComment on above:Expected: 03/20/2025 (Approximate), Expires: 03/20/2026Start: 02-25-2025 End: 66-57-5904Tzngmtt encounter sduzagvyh02/21/2025 3:40 PM EDT Routine NOM[facility] [address] [place] [phone] Wolfgang Hoffman, DO [address] [place] [address] NOMS BCP OBStart: 02-25-2025 End: 87-40-4216Lbulquokhydf / ancillary services hxsxuqtsxs51/21/2025 2:30 PM EDT Ancillary Procedure NOMS [facility] [address] [facility] [place] [phone] NOMS BCP OBStart: 01-29-2025 End: 95-58-7803Zsngu fetoprotein, maternalAlpha fetoprotein, maternal Lab Routine Second trimester ([facility]) 16 weeks gestation of ([facility]) Expected: 01/29/2025 (Approximate), Expires: 07/31/2025[facility] Comment on above:Expected: 01/29/2025 (Approximate), Expires: 07/31/2025Start: 01-29-2025 End: 09-92-9873YN for pregnancyUS OB 14+ weeks anatomy scan Imaging Routine Second trimester ([facility]) 16 weeks gestation of ([facility]) Screening, , for anatomic survey ([facility]) Expected: 01/29/2025, Expires: 05/01/2025NOMS HealthcareComment on above:Expected: 01/29/2025, Expires: 05/01/2025Start: 01-29-2025 End: 47-96-4536Osbobwz encounter procedureNOMS BCP OBComment on above:Arrived Start: 01-08-2025 End: 79-76-4226Zsqlhct encounter omcxjlcfp27/03/2025 2:10 PM EDT Routine NOMS BCP OB [address] [facility] [place] [phone] Wolfgang Hoffman, [address] [place] [address] NOMS BCP OBStart: 01-01-2025 End: 91-02-6500Vwhzraf encounter zmscskuqx02/27/2025 1:40 PM EDT Routine [facility]CP OB [address] [place] [phone] Wolfgang Hoffman, [address] [place] [address] ArrivedNOMS BCP OBComment on above: ArrivedStart: 12-06-2024 End: 85-00-7950UNH/RhABO/Rh Lab Routine Missed menses , unspecified gestational age Expected: 12/06/2024 (Approximate), Expires: 12/06/2025NOMS HealthcareComment on above:Expected: 12/06/2024 (Approximate), Expires: 12/06/2025Start: 12-06-2024 End: 54-91-2116Bknoi type and Indirect antibody screen panel - BloodType and screen Lab Routine Missed menses , unspecified gestational age Expected: 12/06/2024 (Approximate), Expires: 12/06/2025NOMS HealthcareComment on above:Expected: 12/06/2024 (Approximate), Expires: 12/06/2025Start: 12-06-2024 End: 12-20-8568Xtder of abuse panel - Urine by Screen methodRapid drug screen, urine Lab Routine , unspecified gestational age Encounter for supervision of normal first in first trimester Expected: 12/06/2024 (Approximate), Expires: 12/06/2025[facility] HealthcareComment on above:Expected: 12/06/2024 (Approximate), Expires: 12/06/2025Start: 12-06-2024 End: 55-59-1623gjrboizkjb26/01/2025 1:00 PM EDT Initial NOMS [facility] [address] [place] [address] NOMS BCP OBStart: 12-06-2024 End: 71-92-8950Ggfxyhaivwmm / ancillary services tiizwxntqm94/01/2025 12:30 PM EDT Ancillary Procedure NOMS [facility] OB [address] [place], [place] [address] NOMS BCP OBStart: 11-30-2024 End: 60-21-6671ZD Pelvis transvaginalUS OB transvaginal Imaging Routine Missed menses Expected: 11/30/2024, Expires: 03/01/2025[facility] Work Phone: comment on above:Expected: 11/30/2024, Expires: 03/01/2025Start: 11-12-2024 End: 35-10-3055Irccsli encounter rrjucnvff98/07/2025 2:00 PM EDT Office Visit NOMS [facility] OB [address] [place] [address] Wolfgang Hoffman, DO [address] [place] [address] NOMS BCP OBStart: 11-08-2024 End: 24-84-9494Zrsbqaw encounter lasvsabkm75/03/2025 11:30 AM EDT Office Visit NOMS [facility] [place] [phone] Wolfgang Hoffman, [address] [place] [address] ArrivedNOTX BCP OBComment on above:ArrivedStart: 29-24-0853Fymcb BMI ScreeningAdult BMI ScreeningProUniversity Hospitals Lake [facility] Medical Centerca Health SystemStart: 48-83-2267Ejejiym ScreeningTobacco ScreeningProMedica Health SystemStart: 46-64-0601Bmngd BMI ScreeningAdult BMI ScreeningProMedica Health SystemStart: 98-44-5405Mezrnti ScreeningTobacco ScreeningProMedica Health SystemStart: 21-48-7210Jbqcm BMI ScreeningAdult BMI ScreeningProMedica Health SystemStart: 51-15-4980Umcfcdb ScreeningTobacco ScreeningProMedica Health SystemStart: 64-35-2147Sgigweo ScreeningTobacco ScreeningProMedica Health SystemStart: 09-25-2024 End: 21-49-7881Hmawqma encounter ufmbyjvqy67/18/2025 3:00 PM EST Office Visit [facility]S BCP OB [address] [facility] [place] [address] Wolfgang Hoffman, [address] [place] [address] ArrivedMCKAY-DEE [facility]ENTER BCP OBComment on above:ArrivedStart: 09-25-2024 End: 63-51-0045SJSSNKVB Lab Routine PCOS (polycystic ovarian syndrome) Expected: 09/25/2024 (Approximate), Expires: 09/25/2025NOMS HealthcareComment on above: Expected: 09/25/2024 (Approximate), Expires: 09/25/2025Start: 09-25-2024 End: 36-67-2545BP PelvisUS Pelvis w/ TV Imaging Routine PCOS (polycystic ovarian syndrome) Expected: 09/25/2024, Expires: 09/25/2025NOMS HealthcareComment on above:Expected: 09/25/2024, Expires: 09/25/2025Start: 10-18-2023 End: 45-07-1634Xobxzkp encounter /12/2024 10:00 AM EDT Office Visit [facility] [address] [place] [phone] Viki Patel [facility] [address] [place], [place] [address] [facility] SurgeryStart: 10-03-2023 End: 51-71-8663Jddkhxzki to same day surgery wviuuu2410/03/2023 11:00 AM EST - 10/03/2023 12:55 PM EST Surgery [facility] - Surgery [address] [place] [phone] Alo Morgan MD [address] [place] [address] DAVINCI CHOLECYSTECTOMY [04683 (CPT )][facility] Surgery Comment on above:DAVINCI CHOLECYSTECTOMY [51015 (CPT )]Start: 10-03-2023 End: 14-42-1311Ymdclfievsq surg cholecystectomyDAVINCI CHOLECYSTECTOMY biliary colic 10/03/2023 11:00 AM ESTFREMHAWTHORN CHILDREN'S [facility] SURGERYStart: 44-37-1479Smfjagqbkc hospital visit by eunwncggx01/26/2024 11:00 AM EST Hospital Encounter [facility] - Surgery [address] [place] [address] Alo Morgan MD [address] [place] [address] [facility] SurgeryStart: 09-27-2023 End: 34-57-9498Icwhlom encounter trvooerol48/20/2024 11:00 AM EST Office Visit [facility] [address] [place] [address] Alo Morgan MD [address] [place] [address] [facility] SurgeryStart: 08-23-2023 End: 96-44-8035Gaeqrpv encounter uxfpenfcg50/16/2024 10:45 AM EST Office Visit [facility] [address] [place] [address] Alo Morgan MD [address] [place] [address] [facility] General SurgeryStart: 22-03-2515Yhnolmmhm vaccinationInfluenza VaccineProChildren'S Hospital [facility] SystemStart: 15-93-3932Irsiearcnlol Vaccine: Pediatrics (0 to 5 Years) and At-Risk Patients (6 to 64 Years) (1 of 2 - PCV)Pneumococcal Vaccine: Pediatrics (0 to 5 Years) and At-Risk Patients (6 to 64 Years) (1 of 2 - PCV)[facility] HealthcareStart: 76-31-4598Snmgw BMI ScreeningAdult BMI ScreeningBlanchard Valley Health System SystemStart: 94-56-1641Ysjrgzxyyx ScreeningDepression ScreeningBlanchard Valley Health System SystemStart: 11-59-5732Fmwdegc ScreeningTobacco ScreeningBlanchard Valley Health System SystemStart: 14-10-0130Rmkxsiu CounselingTobacco CounselingBerger HospitalBacteria identified in Urine by CultureUrine culture Microbiology Routine Missed menses Ordered: 12/06/2024[facility] HealthcareComment on above:Ordered: 12/06/2024acteria identified in Urine by CultureUrine culture Microbiology Routine Urinary tract infection without hematuria, site unspecified Ordered: 03/20/2025[facility] Comment on above:Ordered: 03/20/2025BC W Auto Differential panel - BloodCBC and differential Lab Routine PCOS (polycystic ovarian syndrome) Ordered: 09/25/2024 [facility] HealthcareComment on above:Ordered: 5CBC W Auto Differential panel - BloodCBC and differential Lab Routine Missed menses , unspecified gestational age Ordered: 12/06/2024[facility] HealthcareComment on above:Ordered: 12/06/2024HLAMYDIA TRACHOMATIS (GENITO/STI)CHLAMYDIA TRACHOMATIS (GENITO/STI) Lab Routine STD exposure Ordered: 01/29/2025[facility] HealthcareComment on above: Ordered: 01/29/2025HLAMYDIA TRACHOMATIS (GENITO/STI)CHLAMYDIA TRACHOMATIS (GENITO/STI) Lab Routine Yeast infection BV (bacterial vaginosis) Ordered: [facility] HealthcareComment on above:Ordered: 03/20/2025ytology Cervical or vaginal smear or scraping studyPap Smear Pathology and Cytology Routine Well woman exam with routine gynecological exam Ordered: 01/29/2025[facility] Healthcare Work Phone: comment on above:Ordered: 01/29/2025DHEA-sulfateDHEA- sulfate Lab Routine PCOS (polycystic ovarian syndrome) Ordered: 09/25/2024[facility] HealthcareComment on above:Ordered: 09/25/2024Follicle stimulating hormone Follicle stimulating hormone Lab Routine PCOS (polycystic ovarian syndrome) Ordered: 09/25/2024[facility] HealthcareComment on above:Ordered: 09/25/2024hCG, quantitative, pregnancyhCG, quantitative, Lab Routine PCOS (polycystic ovarian syndrome) Ordered: 09/25/2024[facility] Healthcare Work Phone: comment on above:Ordered: 09/25/2024Hemoglobin A1c/Hemoglobin.total in BloodHemoglobin A1c Lab Routine PCOS (polycystic ovarian syndrome) Ordered: 09/25/2024[facility] HealthcareComment on above:Ordered: 09/25/2024 Hemoglobin A1c/Hemoglobin.total in BloodHemoglobin A1c Lab Routine Missed menses , unspecified gestational age Ordered: 12/06/2024[facility] HealthcareComment on above:Ordered: 12/06/2024Hemoglobin A1c/Hemoglobin.total in BloodHemoglobin A1c Lab Routine Third trimester ([facility]) 28 weeks gestation of ([facility]) Ordered: 04/17/2025[facility] Healthcare Work Phone: comment on above:Ordered: 04/17/2025Hepatitis B virus surface Ag [Presence] in Serum or Plasma by ImmunoassayHepatitis B surface antigen Lab Routine Missed menses , unspecified gestational age Ordered : 12/06/2024[facility] HealthcareComment on above:Ordered: 12/06/2024Hepatitis C virus Ab [Presence] in Serum or Plasma by ImmunoassayHepatitis C antibody Lab Routine Missed menses , unspecified gestational age Ordered: 12/06/2024[facility] HealthcareComment on above:Ordered: 12/06/2024HIV-1/HIV-2 antigen/antibody combination immunoassayHIV-1 and HIV-2 antibodies Lab Routine Missed menses , unspecified gestational age Ordered: 12/06/2024[facility] HealthcareComment on above:Ordered: 12/06/2024Luteinizing hormoneLuteinizing hormone Lab Routine PCOS (polycystic ovarian syndrome) Ordered: 09/25/2024[facility] HealthcareComment on above:Ordered: 09/25/2024Neisseria gonorrhoeae DNA [Presence] in Unspecified specimen by ISAAC with probe detectionNeisseria gonorrhea DNA probe, direct Lab Routine STD exposure Ordered: 01/29/2025[facility] HealthcareComment on above:Ordered: 01/29/2025Neisseria gonorrhoeae DNA [Presence] in Unspecified specimen by ISAAC with probe detectionNeisseria gonorrhea DNA probe, direct Lab Routine Yeast infection BV (bacterial vaginosis) Ordered:03/20/2025[facility] HealthcareComment on above:Ordered: 03/20/2025Reagin Ab [Presence] in Serum by RPRRPR Lab Routine Missed menses , unspecified gestational age Ordered: 12/06/2024[facility] HealthcareComment on above:Ordered: 12/06/2024Rubella antibody, IgGRubella antibody, IgG Lab Routine Missed menses , unspecified gestational age Ordered: 12/06/2024[facility] HealthcareComment on above:Ordered: 12/06/2024 SURESWAB(R) ADVANCED VAGINITIS PLUS, TMASURESWAB(R) ADVANCED VAGINITIS PLUS, TMA Pathology and Cytology Routine Vaginal discharge Ordered: 01/29/2025[facility] HealthcareComment on above:Ordered: 01/29/2025SURESWAB(R) ADVANCED VAGINITIS PLUS, TMASURESWAB(R) ADVANCED VAGINITIS PLUS, TMA Pathology and Cytology Routine Yeast infection BV (bacterial vaginosis) Ordered: 03/20/2025[facility] Comment on above:Ordered: 03/20/2025Thyrotropin [Units/volume] in Serum or PlasmaTSH Lab Routine PCOS (polycystic ovarian syndrome) Ordered: 09/25/2024[facility] Work Phone: comment on above:Ordered: 09/25/2024Thyroxine (T4) free [Mass/volume] in Serum or PlasmaT4, free Lab Routine PCOS (polycystic ovarian syndrome) Ordered: 09/25/2024[facility] HealthcareComment on above:Ordered: 09/25/2024 End: 43-23-1869Huikmljx Procedure / SurgeryUnlisted Procedure / Surgery Procedures Routine Biliary colic 1 Occurrences starting 09/27/2023 until 09/26/2024[facility] Work Phone: Comment on above:1 Occurrences starting 09/27/2023 until 09/26/2024US Pelvis transvaginalUS OB transvaginal Imaging Routine Missed menses 12/06/2024 12:56 PM EDT[facility] Immunizations Immunization DateImmunizationNotesCare RytwrigcPewjqnvi46-45-3208cvyxufque virus vaccine, unspecified formulationLauren Venia [facility] 10-09-6204sabddvool virus vaccine, unspecified formulationMichael Grillis DO Work Phone: [facility] Payers DatePayer CategoryPayerPolicy [id number] Health InsuranceAMBETTER RUSSELL Member Subscriber Plan / Payer (Effective 2024- Present) Name: Alfredo Piper Relation to Subscriber: Self Name: Kemi Piper Payer ID: Not on file Group ID: Not on file Type: Not on file Address: [address] [id number] 2023Medicaid (Managed Care)[employer] [employer] [id number] 2019[place]icaid[place] MED[place] [id number] 2018-Present [phone] [address] [place] [id number] [id number] 2.0.1.691732.3.579.[id number] 2.840.1.802575.3.579.2.94800-42-5347Fgbrteq3983637 2.0.1.487763.3.579.2.61894-59-2261Dxqwtkt3444928 2.0.1.125229.3.579.2.66876-63-2102Ryidxfa8451854 2.0.1.789786.3.579.2.28362-66-5004Zpsqrvb2530267 2.840.1.424607.3.579.2.24818-25-8327Mmbxhik8730065 2.0.1.728721.3.579.2.03365-40-9718Jgyfher3846881 2.840.1.613545.3.579.2.10295-25-6775Ghasqec3412040 2.840.1.606894.3.579.2.73637-59-9475Oeirxoe7827427 2.16.840.1.725664.3.579.2.66910-48-9450Fmxzbpu7556497 2.16.840.1.910659.3.579.2.51437-38-0043Mmxdqjr6552823 2.16.840.1.512068.3.579.2.59285-86-5268Hgcnmbb4271383 2.16.840.1.829923.3.579.2.17272-02-6469Jfeofax9131131 2.16.840.1.031299.3.579.2.27145-43-3779Fiycmlm2030025 2..840.1.766437.3.579.2.66987-76-7925Yuminot2425959 2.840.1.849071.3.579.2.61053-43-9595Ehyertl9727037 2.16.840.1.738778.3.579.2.02374-58-1289Mcrbnqm3710052 2.16.840.1.848459.3.579.2.72204-65-0764Dffrwgv0923059 2.840.1.362150.3.579.2.07968-78-2361Ltppvzn4641986 2.16.840.1.919863.3.579.2.73805-57-6329Yzukuyw5923964 2.16.840.1.765166.3.579.2.30062-67-8291Wscbjya8543272 2.16.840.1.010693.3.579.2.47732-59-8553Mzehxsi3694749 2.16840.1.015624.3.579.2.69829-34-1270Lfjocuk6872098 2.16.840.1.367783.3.579.2.05980-45-9980Eeyalyr2642472 2.16.840.1.517747.3.579.2.17564-14-4766Zbwbshc7941039 2.16.840.1.275282.3.579.2.31840-27-5112Fzlhnnq3423330 2.840.1.456392.3.579.2.98874-61-2174Wvfwodz83773546 2.840.1.733047.3.579.2.97935-18-8190Acedbwc06374774 2.840.1.146103.3.579.2.70337-74-2131Kahbxam81996880 2.840.1.114600.3.579.2.541546-49-9594Bicuxhj23084899 2.840.1.306708.3.579.2.594425-74-1421Jqmxpjy86475874 2.840.1.379152.3.579.2.613628-80-3911Wncorfs06798226 2.840.1.495246.3.579.2.350180-54-3613Swhcgpk55949177 2.840.1.085159.3.579.2.786916-80-8502Emlmhhp65387244 2.840.1.900352.3.579.2.474386-14-9411Opaszop17672051 2.840.1.876136.3.579.2.347456-61-0516Rtumuwb20543645 2.16.840.1.607546.3.579.2.333410-26-8561Gunhrah02792866 2.840.1.599011.3.579.2.604497-41-5798Cnikmpn3428446 2.840.1.884130.3.579.2.084999-72-6684Yvrnflv8322433 2.840.1.752486.3.579.2.800201-10-0942Bcfnozc7388218 2.0.1.682445.3.579.2.373844-78-9759Gehgyef4532128 2.840.1.228487.3.579.2.820361-91-7774Ljxmqxy40272376 2..1.260286.3.579.2.049154-25-1296Asjxtgu55534285 2.0.1.962883.3.579.2.065380-99-2585Ibhqjvo34736595 2..1.030842.3.579.2.754970-49-7819Prufntx23881387 2.840.1.567258.3.579.2.128826-61-3117Ncremch56980426 2.0.1.088267.3.579.2.765354-82-6191Hegjsgl01055577 2..1.961977.3.579.2.915116-77-6202Qlnltqe71218545 2.840.1.955551.3.579.2.076614-78-2212Sjgjwmj11883824 2.840.1.371743.3.579.2.363457-21-2275Czywtqq91552751 2.840.1.744277.3.579.2.212458-69-0565Ehvrwvg6068255 2.840.1.895547.3.579.2.476314-35-2434Hmvfrev5564524 2.16.840.1.262532.3.579.2.389855-32-0697Qhnggbw9428144 2.16.840.1.161447.3.579.2.830231-78-8701Tryavgg3555255 2.16.840.1.724788.3.579.2.473974-57-6712Advbkjf0791006 2.840.1.822351.3.579.2.147598-21-9703Gzbqjut80573256 2.16.840.1.348278.3.579.2.35778-03-7309Tayvrrw44090869788635-81-0848Rbwktsf 106150008 2.16.840.1.079235.3.579.2.079Kiafnnn28753821 2.840.1.766999.3.579.2.531 Social History DateTypeDetailFacilityTobacco smoking statusFulton [facility] [place] Start: 04-03-2021 End: 85-24-2784Jni Assigned At BirthFemalParkwood Hospitaltart: 04-03-2021 End: 06-75-7743Rphqkql smoking status NHISOccasional tobacco smokerProChildren'S Hospital Of [facility] SystemStart: 04-03-2021 End: 57-06-6043Yhmqcrk use and exposureSmokeless tobacco non-userProChildren'S Hospital Of Columbus SystemStart: 04-03-2021 End: 44-68-8397Cjysvkn intakeLifetime non-drinker (finding)[facility] SystemStart: 04-03-2021 End: 23-06-8887Kdzqdfp of Social functionProChildren'S Hospital [facility] SystemStart: 98-30-0561Msgbmvz InstabilityUnknownPSouth Cameron Memorial [facility] Health SystemStart: 05-72-7823Nap Assigned At BirthNot on fileProChildren'S Hospital Of Columbus SystemStart: 40-89-0433Hreosne CommentWill smoke a cigarette if does not have a vapSamaritan North Health Center History of tobacco useCigarette SmokerProChildren'S Hospital Of [facility] SystemTobacco smoking status NHISTobacco smoking consumption unknownNOTX HealthcareStart: 10-17-2024 PregnancySaint [facility] Functional Status NsucDyckbtejjyKgarnjKowpebur34-45-1680Gzcnajl Health Questionnaire 2 item (PHQ- 2) [Reported][facility] Clinical Notes 11-28-2020 to 06-10-2025 Note Date & ErrsWwskOlctmyqy52-42-4389 History of Present illness Narrative* MICHELLE Forrest - 06/10/2025 3:50 PM EST [...] Ambulatory Problems Diagnosis Date Noted Third trimester ([facility]) 12/27/2022 ADHD (attention deficit hyperactivity disorder) [...] nursing note reviewed. Exam conducted with a rice field worker present. Vitals: Estimated body mass index is 26.63 kg/m as calculated from the following: Height as of 12/21/22: 5' 6 . Weight as of this encounter: 165 lb. BP: 128/80 No LMP recorded. Patient is . Assessment/Plan ICD-10-CM 1. Third trimester ([facility]) Z34.93 POCT urinalysis dipstick manually resulted CULTURE, GROUP B STREP WITH SUSCEPTIBLITY CULTURE, GROUP B STREP WITH SUSCEPTIBLITY 2. 35 weeks gestation of ([facility]) Z3A.35 3. Psychogenic nonepileptic seizure F44.5 [...] behalf of: MICHELLE Forrest documented in this encounterSaint Luke's East HospitalNcwtfjrwyk40-23-6570 History of Present illness Narrative* Elvia Calvillo NP - 05/27/2025 3:50 PM EDT [...] Ambulatory Problems Diagnosis Date Noted Third trimester ([facility]) 12/27/2022 ADHD (attention deficit hyperactivity disorder) [...] nursing note reviewed. Exam conducted with a rice field worker present. Vitals: Estimated body mass index is 25.89 kg/m as calculated from the following: Height as of 12/21/22: 5' 6 . Weight as of this encounter: 160 lb 6.4 oz. BP: 130/80 No LMP recorded. Patient is . Assessment/Plan ICD-10-CM 1. 33 weeks gestation of ([facility]) Z3A.33 POCT urinalysis dipstick manually resulted 2. Third trimester ([facility]) Z34.93 POCT urinalysis dipstick manually resulted 3. [...] Laterality Date APPENDECTOMY GALLBLADDER documented in this encounterSaint Luke's East HospitalEqabnatdvh54-75-6404 History of Present illness Narrative* Elvia Calvillo [...] Ambulatory Problems Diagnosis Date Noted Third trimester ([facility]) 12/27/2022 ADHD (attention deficit hyperactivity disorder) [...] nursing note reviewed. Exam conducted with a rice field worker present. Vitals: Estimated body mass index is 24.99 kg/m as calculated from the following: Height as of 12/21/22: 5' 6 . Weight as of this encounter: 154 lb 12.8 oz. BP: 110/80 No LMP recorded. Patient is . ASSESSMENT & PLAN ICD-10-CM 1. 31 weeks gestation of ([facility]) Z3A.31 POCT urinalysis dipstick manually resulted 2. Third trimester ([facility]) Z34.93 Return OB: Patient presents today for [...] of: Elvia Calvillo NP documented in this encounterSaint Luke's East HospitalWrxjqzveyt53-14-6371 History of Present illness Narrative* Elvia Calvillo [...] Ambulatory Problems Diagnosis Date Noted Third trimester ([facility]) 12/27/2022 ADHD (attention deficit hyperactivity disorder) [...] nursing note reviewed. Exam conducted with a rice field worker present. Vitals: Estimated body mass index [...] of: Wolfgang Hoffman DO documented in this encounterSaint Luke's East HospitalAwewhijlgc60-76-9321 History of Present illness Narrative* Elvia Calvillo [...] Ambulatory Problems Diagnosis Date Noted Third trimester ([facility]) 12/27/2022 ADHD (attention deficit hyperactivity disorder) [...] nursing note reviewed. Exam conducted with a rice field worker present. Vitals: Estimated body mass index is 24.45 kg/m as calculated from the following: Height as of 12/21/22: 5' 6 . Weight as of this encounter: 151 lb 8 oz. BP: 120/70 No LMP recorded. Patient is . ASSESSMENT & PLAN ICD-10-CM 1. Third trimester ([facility]) Z34.93 POCT urinalysis dipstick manually resulted Hemoglobin A1c 2. 28 weeks gestation of ([facility]) Z3A.28 Hemoglobin A1c Return OB: Patient [...] of: Elvia Calvillo NP documented in this encounterSaint Luke's East HospitalAuazfytkmg36-53-3411 History of Present illness Narrative* Elvia Calvillo [...] Ambulatory Problems Diagnosis Date Noted Third trimester ([facility]) 12/27/2022 ADHD (attention deficit hyperactivity disorder) [...] nursing note reviewed. Exam conducted with a rice field worker present. Vitals: Estimated body mass index is 23.53 kg/m as calculated from the following: Height as of 12/21/22: 5' 6 . Weight as of this encounter: 145 lb 12.8 oz. BP: 100/60 No LMP recorded. Patient is . ASSESSMENT & PLAN ICD-10-CM 1. Second trimester ([facility]) Z34.92 2. 26 weeks gestation of ([facility]) Z3A.26 3. History of psychogenic nonepileptic [...] of: Wolfgang Hoffman DO documented in this encounterSaint Luke's East HospitalRbmiuyzuqp29-35-3154 History of Present illness Narrative* MICHELLE Forrest - 03/20/2025 3:40 PM EDT 14 Reason for Appointment: Patient ID: Kemi Piper is a 19 y.o. female who presents for Routine Visit Patient presents today for Return OB appointment. MEDICATIONS Current Outpatient Medications Medication Instructions 28-0.8 MG tablet 1 tablet, Daily ALLERGIES No Known Allergies PROBLEMS Active Ambulatory Problems Diagnosis Date Noted Third trimester ([facility]) 12/27/2022 ADHD (attention deficit hyperactivity disorder) [...] nursing note reviewed. Exam conducted with a rice field worker present. Vitals: Estimated body mass index is 23.69 kg/m as calculated from the following: Height as of 12/21/22: 5' 6 . Weight as of 02/25/25: 146 lb 12.8 oz. BP: No LMP recorded. Patient is . ASSESSMENT & PLAN ICD-10-CM 1. Second trimester ([facility]) Z34.92 POCT urinalysis dipstick manually resulted 2. 24 weeks gestation of ([facility]) Z3A.24 3. Diabetes mellitus screening Z13.1 [...] of: Elvia Calvillo NP documented in this encounterSaint Luke's East HospitalTlsbwtliug77-02-3211 History of Present illness Narrative* MICHELLE Forrest - 02/25/2025 3:40 PM EDT Reason for Appointment: Patient ID: Kemi Pipre is a 19 y.o. female who presents for Routine Visit Patient presents today for Return OB appointment. MEDICATIONS Current Outpatient Medications Medication Instructions 28-0.8 MG tablet 1 tablet, Daily ALLERGIES No Known Allergies PROBLEMS Active Ambulatory Problems Diagnosis Date Noted Third trimester ([facility]) 12/27/2022 ADHD (attention deficit hyperactivity disorder) [...] ASSESSMENT & PLAN ICD-10-CM 1. Second trimester ([facility]) Z34.92 POCT urinalysis dipstick manually resulted 2. 20 weeks gestation of ([facility]) Z3A.20 POCT urinalysis dipstick manually resulted [...] of: Wolfgang Hoffman DO documented in this encounterSaint Luke's East HospitalGkeiqoxzol06-26-8644 History of Present illness Narrative* MICHELLE Forrest [...] Ambulatory Problems Diagnosis Date Noted Third trimester ([facility]) 12/27/2022 ADHD (attention deficit hyperactivity disorder) [...] nursing note reviewed. Exam conducted with a rice field worker present. Vitals: Estimated body mass index is 21.95 kg/m as calculated from the following: Height as of 12/21/22: 5' 6 . Weight as of 01/01/25: 136 lb. BP: No LMP recorded. Patient is . ASSESSMENT & PLAN ICD-10-CM 1. Well woman exam with routine gynecological exam Z01.419 Pap Smear 2. Second trimester ([facility]) Z34.92 Alpha fetoprotein, maternal Alpha fetoprotein, maternal US OB 14+ weeks anatomy scan 3. 16 weeks gestation of ([facility]) Z3A.16 Alpha fetoprotein, maternal Alpha fetoprotein, maternal US OB 14+ weeks anatomy scan 4. Vaginal discharge N89.8 SURESWAB(R) ADVANCED VAGINITIS PLUS, TMA 5. STD exposure Z20.2 CHLAMYDIA TRACHOMATIS (GENITO/STI) Neisseria gonorrhea DNA probe, direct 6. Screening, , for anatomic survey ([facility]) Z36.89 US OB 14+ weeks anatomy scan Return OB/Annual Exam: Patient presents today for a annual exam/routine obstetrics appointment. Patient is currently 41w4bnlujlqsa. Patient states she is doing well but [...] behalf of: MICHELLE Forrest documented in this encounterSaint Luke's East HospitalKmkcmizqfw54-50-1366 History of Present illness Narrative* Porsha Jackie, DRYING TUNNEL OPERATOR - 01/01/2025 1:40 PM EDT Reason for Appointment: Patient ID: Kemi Piper is a 19 y.o. female who presents for Routine Visit Patient presents today for Return OB appointment. MEDICATIONS Current Outpatient Medications Medication Instructions 28-0.8 MG tablet 1 tablet, Daily ALLERGIES No Known Allergies PROBLEMS Active Ambulatory Problems Diagnosis Date Noted Third trimester 12/27/2022 ADHD (attention deficit hyperactivity disorder) [place] 01/11/2012 Deterioration in school performance 01/21/2015 Migraines ([facility]) 11/28/2020 Nocturnal enuresis 12/12/2012 Psychogenic nonepileptic seizure [...] nursing note reviewed. Exam conducted with a rice field worker present. Vitals: Estimated body mass index [...] or undercooked meat, and stay away from [facility]. Patient has been consulted regarding any further do's and don'tsof . Patient voiced understanding and all questions and concerns were answered. Pt having lisa farley, pt being referred to neurology. Orders Placed This Encounter Procedures POCT urinalysis dipstick manually resulted Follow Up: Patient is to return in 4 weeks for routine OB appointment. Documented by Porsha Mejia LPN on behalf of: Wolfgang Hoffman DO documented in this encounterSaint Luke's East HospitalYljzgeaahz81-09-9972 History of Present illness Narrative* Pat Skelton [...] hyperactivity disorder) ([facility]) 01/11/2012 Deterioration in school performance 01/21/2015 Migraines ([facility]) 11/28/2020 Nocturnal enuresis 12/12/2012 Psychogenic nonepileptic seizure [...] calculated from the following: Height as of 5/16/23: 5' 6 . Weight as of this [...] or undercooked meat, and stay away from [facility]. Patient has also been advised to not change litter boxes and eat 6 small meals a day. Patient has been consulted regarding the do's and don'ts ofpregnancy. Patient was given labs and all questions and concerns were answered. Patient was given [place] to have completed with Initial labs. Follow Up: Patient is to return in 4 weeks for routine OB appointment. Follow Up: Patient is to have labs drawn at directed and return to office for initial OB appointment with provider. Patient may call office as needed with any concerns or questions. Nurse Visit Completed by: Pat Skelton LPN documented in this encounterSaint Luke's East HospitalNrwkaeyzby35-30-5092 History of Present illness Narrative* Monique Arora [...] hyperactivity disorder) ([facility]) 01/11/2012 Deterioration in school performance 01/21/2015 Migraines ([facility]) 11/28/2020 Nocturnal enuresis 12/12/2012 Psychogenic nonepileptic seizure [...] nursing note reviewed. Exam conducted with a rice field worker present. Vitals: Estimated body mass index [...] of: Wolfgang Hoffman DO documented in this encounterSaint Luke's East HospitalHlymxjumnj45-89-4005 History of Present illness Narrative* MICHELLE Forrest [...] hyperactivity disorder) ([facility]) 01/11/2012 Deterioration in school performance 01/21/2015 Migraines ([facility]) 11/28/2020 Nocturnal enuresis 12/12/2012 Psychogenic nonepileptic seizure ([facility]) 11/29/2020 Resolved Ambulatory Problems Diagnosis Date Noted [...] of: Wolfgang Hoffman DO documented in this encounterSaint Luke's East HospitalQshpcokthc71-89-3254 Miscellaneous Notes* Telephone Encounter - Tessa Roberts CMA - 11/03/2023 11:37 AM EDT We received a letter from [facility] stating that the procedure on 09/27/23 was not covered. The Cholecystectomy was ordered by Dr Morgan on 09/27/23, the actual surgery wasn't performed until 10/03/23. I scanned the letter into her chart & spoke to Trinity, at the Pre-Cert Main line. She could seethe letter & she will get it to the [place] specialist. documented in this encounterBerger Hospital03-28-2024 Telephone encounter Note* Telephone Encounter - Tessa Roberts CMA - 11/03/2023 11:37 AM EDT We received a letter from [facility] stating that the procedure on 09/27/23 was not covered. The Cholecystectomy was ordered by Dr Morgan on 09/27/23, the actual surgery wasn't performed until 10/03/23. I scanned the letter into her chart & spoke to Trinity, at the Pre[employer] Main line. She could seethe letter & she will get it to the [place] specialist. [facility]03-12-[facility] History of Present illness Narrative* Viki Patel, 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 [employer] - 10/18/2023 10:00 AM EDT Subjective Kemi Piper is a 18 y.o. female status post robotic assisted laparoscopic cholecystectomy on10/03/2023. She is doing well and has no [...] Status post laparoscopic cholecystectomy [Z90.49] GERMAN DEAN [facility] Surgery [place] This note was created with the assistance of a speech recognition program. While intending to generate a timely document that accurately reflects the content of the visit, no guarantee can be provided that every grammatical or spelling mistake has been or will be identified or corrected. Thank you for your understanding. GERMAN Dean 10/18/23 1014 documented in this encounterBerger Hospital02-21-2024 NoteXR CHEST 2 VWS Procedure: Chest x-ray performed Number of views:2 History:Preop asthma Comparison:None Findings: The heart and lungs show no acute findings, and the mediastinum and manasa are grossly negative . Impression: 1. No acute change. Finalized by Umesh Bolaños MD on 09/28/2023 10:05 [facility] 09-28-2023 Note Procedure: Chest x-ray performed Number of views:2 History:Preop asthma Comparison:None Findings: The heart and lungs show no acute findings, and the mediastinum and manasa are grossly negative . Impression: 1. No acute change. Finalized by Umesh Bolaños MD on 09/28/2023 10:05 [id number] Instructions* Patient Instructions* Noemí Arnett RN - 09/28/2023 9:00 AM EST Preoperative Education Checklist- General Surgery date: 10/03/23 Surgery time: 1100 a.m. Arrival time: 0900 a.m. 1. Bring a photo ID and your insurance card with you the day of surgery. You will check in at the main lobby of the [facility]- registration desk is straight ahead as soon as you walk in. Tell them you are here for surgery. 2. If you have a Living Will/Durable Power of Railway Engineer for Health Care that is not on [...] after you have bathed. 5. NO nail grenadian/acrylic on at least one finger. If you are having a hand, wrist or foot surgery then all nail grenadian and artificial/acrylic nails must be removed from [...] please call the Preadmission Testing office at [phone], Mon.-Fri. 7 a.m.-3 p.m. Leave a voicemail [...] appointment with your doctor. documented in this encounterHolzer Health SystemBenefit Mobile Hawthorn CenterCljxvl31-81-8279 Miscellaneous Notes* Perioperative Nursing Note - Noemí Arnett RN - 09/28/2023 9:00 AM EST Preoperative Education Checklist- General Surgery date: 10/03/23 Surgery time: 1100 a.m. Arrival time: 0900 a.m. 1. Bring a photo ID and your insurance card with you the day of surgery. You will check in at the main lobby of the [facility]- registration desk is straight ahead as soon as you walk in. Tell them you are here for surgery. 2. If you have a Living Will/Durable Power of Railway Engineer for Health Care that is not on [...] after you have bathed. 5. NO nail grenadian/acrylic on at least one finger. If you are having a hand, wrist or foot surgery then all nail grenadian and artificial/acrylic nails must be removed from [...] please call the Preadmission Testing office at [phone], Mon.-Fri. 7 a.m.-3 p.m. Leave a voicemail [...] reviewed. Patient verbalized understanding. documented in this encounterBerger Hospital02-21-2024 Nurse Note* Perioperative Nursing Note - Noemí Arnett RN - 09/28/2023 9:00 AM EST Preoperative Education Checklist- General Surgery date: 10/03/23 Surgery time: 1100 a.m. Arrival time: 0900 a.m. 1. Bring a photo ID and your insurance card with you the day of surgery. You will check in at the main lobby of the [facility]- registration desk is straight ahead as soon as you walk in. Tell them you are here for surgery. 2. If you have a Living Will/Durable Power of Railway Engineer for Health Care that is not on [...] after you have bathed. 5. NO nail grenadian/acrylic on at least one finger. If you are having a hand, wrist or foot surgery then all nail grenadian and artificial/acrylic nails must be removed from [...] please call the Preadmission Testing office at [phone], Mon.-Fri. 7 a.m.-3 p.m. Leave a voicemail [...] to the follow-up appointment with your doctor. [facility] [employer] Corporationwalker [facility] centerARS [employer] [id number] Nurse Note* Perioperative Nursing Note - Noemí Arnett RN - 09/28/2023 9:00 AM EST Hibiclens and surgical instructions reviewed. Patient verbalized understanding. [facility] [employer] Corporationwalker [facility] centerARS [employer] [id number] History of Present illness Narrative* Alo Morgan [...] and communicating with other health critical care rn Alo Morgan MD [facility] General Surgery [place] documented in this encounterBerger Hospital02-06-2024 Miscellaneous Notes* Telephone Encounter - Deja Roberts - 09/13/2023 10:46 AM EST Patient no called no showed for appointment with Dr. Morgan. I called Kemi to see if we could reschedule this appointment. Left message on voicemail to call the office back as I was unable to make contact. [facility] Tele[facility] encounter Note* Telephone Encounter - Deja Roberts - 09/13/2023 10:46 AM EST Patient no called no showed for appointment with Dr. Morgan. I called Kemi to see if we could reschedule this appointment. Left message on voicemail to call the office back as I was unable to make contact. [facility] Miscellaneous Notes* Telephone Encounter - Paola Temple CMA - 08/23/2023 8:13 AM EST Left message for patient to call back to reschedule appointment. documented [facility] Telephone encounter Note* Telephone Encounter - Paola Temple CMA - 08/23/2023 8:13 AM EST Left message for patient to call back to reschedule appointment. [facility]01-09-2024 Miscellaneous Notes* Telephone Encounter - Deja [...] Dr. Morgan for 08-23-23. documented in this encounterBer[facility]24 Telephone encounter Note* Telephone Encounter - Deja Roberts - 08/16/2023 11:03 AM EST Called patient in regard to gallstone referral from Dr. Montez's office. Left message on voicemail to call the office back to schedule appointment. [facility]01-09-2024 Telephone encounter Note* Telephone Encounter - Deja Roberts - 08/16/2023 11:03 AM EST Sandeep called the office back and scheduled an appointment with Dr. Morgan for 08-23-23. [facility]04-24-2021 NoteDischarge/Transfer Summary Name: Kemi Piper MR#: [id number] : 2005 Room #: 6221/01 Age/Sex: 15 y.o. female Admit Date: 11/28/2020 Admitting: Reggie Conner MD Discharge Date: 11/29/2020 Discharged from: [facility] Attending: Dr. Reggie Conner MD Final [...] with vision loss. She was seen at [facility] Emergency department and observed with normal labs [...] opinion and she was admitted directly to [facility] Neurology. 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 It last approximately 9m. Patient fell asleep afterwards and woke up around 1913. This episode differed from past ones in that it was related to vision loss. Family initially presented to [facility] where she was observed til vision improved. [...] This prompted family to seek evaluation at [facility] once more. They do note she did [...] mom identifies as Dr. Jesús Choe in [place]. They have an upcoming appointment on 12/02. 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 (sister was getting this day and she [...] Medication changes: Has bee (more content not included)...[facility] No data available for this section [facility] General Surgery SleepOut Evaluation note* Diagnosis Biliary colic- Primary Calculus of gallbladder without mention of cholecystitis or obstruction documented in this encounter [facility] SystemEvaluation note* Diagnosis Preop examination- Primary Unspecified pre-operative examination Asthma, unspecified asthma severity, unspecified whether complicated, unspecified whether persistent Preop examination Unspecified pre-operative examination Asthma, unspecified asthma severity, unspecified whether complicated, unspecified whether persistent Preop examination Unspecified pre-operative examination Asthma, unspecified asthma severity, unspecified whether complicated, unspecified whether persistent documented in this encounter [facility] System[facility] note* Diagnosis Status post laparoscopic cholecystectomy- Primary Other postprocedural status documented in this encounter [facility] SystemEvaluation note* Diagnosis PCOS (polycystic ovarian syndrome)- Primary Polycystic ovaries documented in this encounter [facility] HealthcareEvaluation note* Diagnosis PCOS (polycystic ovarian syndrome)- Primary Polycystic ovaries documented in this encounter [facility] HealthcareEvaluation note* Diagnosis Missed menses , unspecified gestational age Encounter for supervision of normal first in first trimester documented in this encounter [facility] HealthcareEvaluation note* Diagnosis First trimester state, incidental 12 weeks gestation of History of psychogenic nonepileptic seizure documented in this encounter [facility] HealthcareEvaluation note* Diagnosis Well woman exam with routine gynecological exam Routine gynecological examination Second trimester ([facility]) state, incidental 16 weeks gestation of ([facility]) Vaginal discharge Leukorrhea, not specified as infective STD exposure Screening, , for anatomic survey ([facility]) Encounter for anatomic survey documented in this [...] HealthcareEvaluation note* Diagnosis 31 weeks gestation of ([facility]) Third trimester ([facility]) state, incidental [facility]* Diagnosis size inconsistent with dates ([facility])- Primary 33 weeks gestation of ([facility]) Third trimester ([facility]) state, incidental Psychogenic nonepileptic seizure [facility]* Diagnosis Third trimester ([facility]) state, incidental 35 weeks gestation of ([facility]) Psychogenic nonepileptic seizure [facility] Dis[facility] instructions No data available for this section [facility] General Surgery SleepOut InstructionsNot on filedocumented in this encounter [facility]Not on filedocumented in this encounter [facility] SystemInstructionsNot on filedocumented in this encounter [facility] SystemInstructionsNot on filedocumented in this encounter [facility] No data available for this section [facility] General Surgery [place] Summary Purpose Family History No Family History [...] ECG 12 lead Yo Berman MD [address] [place] [address] Referral IDStatusReasonStart DateExpiration DateVisits RequestedVisits [id number] / ProceduresReferred By ContactReferred To Contact Diagnoses Biliary colic Procedures Unlisted Procedure / Surgery Alo Morgan MD [address] [place] [address] Referral IDStatusReasonStart DateExpiration DateVisits RequestedVisits [id number] Review/ Additional Source Comments INFORMATION SOURCE (unrecogn ized section and content) DATE CREATED AUTHOR 11/30/2020 [facility] DATE CREATED AUTHOR AUTHOR'S ORGANIZ ATION 01/14/2023 [facility] DATE CREATED AUTHOR AUTHOR'S ORGANIZ ATION 07/27/[address] [facility] DATE CREATED AUTHOR AUTHOR'S ORGANIZ ATION 09/12/2023 [facility] DATE CREATED AUTHOR AUTHOR'S ORGANIZ ATION 10/08/2023 [facility] DATE CREATED AUTHOR AUTHOR'S ORGANIZ ATION 10/19/2023 [facility] DATE CREATED AUTHOR AUTHOR'S ORGANIZ ATION 03/17/2025 [facility] DATE CREATED AUTHOR AUTHOR'S ORGANIZ ATION 05/28/2025 [facility] EPIC Patient Care team informatio n (unrecognized section and content) Team MemberRelationshipSpecialtyStart DateEnd Date Rashard Montez MD [address] [place] [facility] [place] [address] PCP - GeneralFamily Medicine03/25/21Team MemberRelationshipSpecialtyStart DateEnd Date Rashard Montez MD [address] [place] [facility] [place] [address] PCP - GeneralFamily Medicine03/25/21Team MemberRelationshipSpecialtyStart DateEnd Date Rashard Montez MD [address] [place] [facility] [address] PCP - GeneralFamily Medicine03/25/21Team MemberRelationshipSpecialtyStart DateEnd Date Rashard Montez MD [address] [place] [facility] [address] PCP - GeneralFamily Medicine03/25/21Team MemberRelationshipSpecialtyStart DateEnd Date Rashard Montez MD [address] [facility] [address] PCP - GeneralFamily Medicine03/25/21Team MemberRelationshipSpecialtyStart DateEnd Date Rashard Montez MD [address] [place] [facility] [address] PCP - GeneralFamily Medicine03/25/21Team MemberRelationshipSpecialtyStart DateEnd Date Rashard Montez MD [address] [place] [facility] [address] PCP - GeneralFamily Medicine02/16/23Team MemberRelationshipSpecialtyStart DateEnd Date Rashard Montez MD [address] [place] [facility] [address] PCP - GeneralFamily Medicine02/16/23Team MemberRelationshipSpecialtyStart DateEnd Date Rashard Montez MD [address] [place] [facility] [address] PCP - GeneralFamily Medicine02/16/23Team MemberRelationshipSpecialtyStart DateEnd Date Rashard Montez MD [address] [place] [facility] [address] PCP - GeneralFamily Medicine02/16/23Team MemberRelationshipSpecialtyStart DateEnd Date Rashard Montez MD [address] [place] [facility] [address] PCP - GeneralFamily Medicine02/16/23Team MemberRelationshipSpecialtyStart DateEnd Date Rashard Montez MD [address] [place] [facility] [address] PCP - [facility] Centerly Medicine02/16/23Team MemberRelationshipSpecialtyStart DateEnd Date Rashard Montez MD [address] [place] [facility] [address] PCP - GeneralFamily Medicine02/16/23Team MemberRelationshipSpecialtyStart DateEnd Date Rashard Montez MD PCP - GeneralFamily Medicine02/16/23Team MemberRelationshipSpecialtyStart DateEnd Date Rashard Montez MD [address] [place] [facility] [address] PCP - GeneralFamily Medicine02/16/23Team MemberRelationshipSpecialtyStart DateEnd Date Rashard Montez MD [address] [place] [facility] [address] PCP - GeneralFamily Medicine02/16/23Team MemberRelationshipSpecialtyStart DateEnd Date Rashard Montez MD [address] [place] [facility] [address] PCP - GeneralFamily Medicine02/16/23Team MemberRelationshipSpecialtyStart DateEnd Date Rashard Montez MD [address] [place] [facility] [address] PCP - GeneralFamily Medicine02/16/23Team MemberRelationshipSpecialtyStart DateEnd Date Rashard Montez MD [address] [facility], [facility] PCP - GeneralFamily Medicine02/16/23Team MemberRelationshipSpecialtyStart DateEnd Date Rashard Montez MD [address] [place] [facility] [address] PCP - GeneralFamily Medicine02/16/23Team MemberRelationshipSpecialtyStart DateEnd Date Rashard Montez MD [address] [place] [facility] [address] [facility]CP - [facility]02/16/23Te MemberRelationshipSpecialtyStart DateEnd Date Rashard Montez MD [address] [place] [facility] [address] PCP - [facility]02/16/23Te MemberRelationshipSpecialtyStart DateEnd Date Rashard Montez MD [address] [place] [facility] [address] PCP - [facility]iny [facility] Center02/16/23Te MemberRelationshipSpecialtyStart DateEnd Date Rashard Montez MD [address] [place] [facility] [address] PCP - [facility]02/16/23 Reason for Visit (unrecogniz ed section and [...] BE BASED ON THE PRIMARY CLINICAL RECORDS. [facility] [employer] [facility]. provides no warranty or guarantee of the accuracy or completeness of information in this document.
== END 2025-06-10 19:47 | disposition home or self-care (01) ==
LOC: LAB 19:46
PROVIDERS: PCP Family Medicine; Visit Provider Physician Assistant
DX: Z34.93 Encounter for supervision of normal pregnancy, unspecified, third trimester (principal); Z3A.35 35 weeks gestation of pregnancy
CPT/HCPCS: 87081

== ENCOUNTER 2025-06-20 13:53 | Inpatient (IN) | payer OTHER, SELFPAY ==
--- OUTSIDE RECORDS SUMMARY | 2025-06-10 15:50 | XMS_ITS | Encounter Summary ---
Author Organization [facility] Address [address] [facility] [[email or web address]] [place] [address] Care Team Providers Care Plant Scientist Name Role Phone Jose E Burns MD Primary Care Provider [phone] Reason for Visit * ReasonCommentsRoutine Visit Encounter Details DateTypeDepartmentCare Team (Latest Contact Info)Jukymihdggq21/03/2025 3:50 PM ESTRoutine [facility] [address] [place] [address] Gogo Pang PA [address] [facility] [address] [place], [facility]11 Third trimester ([facility]); 35 weeks gestation of ([facility]); Psychogenic nonepileptic seizure Social History Tobacco UseTypesPacks/DayYears UsedDateSmoking Tobacco: Never AssessedPHQ-2 AnswerDate RecordedPatient Health Questionnaire-2 Oxifd94908/10/2024 Estimated Date of GdyaycjsFagranzoHop64/03/2025Based on Ultrasound, FHR-158Sex and Gender InformationValueDate RecordedSex Assigned at BirthNot on fileLegal SqdYvfwlk29/15/2023 6:34 PM EDTGender IdentityNot on fileSexual OrientationNot on filedocumented as of this encounter Last Filed Vital Signs Vital SignReadingTime TakenCommentsBlood Bkfyxnko233/8011/10/2024 4:03 PM EST Pulse--Temperature--Respiratory Rate--Oxygen Saturation--Inhaled Oxygen Concentration--Jalvly90.8 kg (165 lb)06/10/2025 4:03 PM ESTHeight--Body Mass Index26.63012/21/2022 12:00 PM EDTdocumented in this encounter Functional Status * Over the past 2 weeks, how often have you been bothered by any of the following problems?QuestionAnswerDate of AssessmentAuthorLittle interest or pleasure in doing thingsNot at all06/10/2025 11:36 AM Gogo Glass LPN Feeling down, depressed, or hopelessNot at all06/10/2025 11:36 AM Gogo Glass LPNPatient Health Questionnaire-2 Chtgm04708/10/2024 11:36 AM Gogo Glass LPN documented as [...] Ambulatory Problems Diagnosis Date Noted Third trimester ([facility]) 12/27/2022 ADHD (attention deficit hyperactivity disorder) [...] nursing note reviewed. Exam conducted with a medical malpractice paralegal present. Vitals: Estimated body mass index is 26.63 kg/m?? as calculated from the following: Height as of 12/21/22: 5' 6 . Weight as of this encounter: 165 lb. BP: 128/80 No LMP recorded. Patient is . Assessment/Plan ICD-10-CM 1. Third trimester ([facility]) Z34.93 POCT urinalysis dipstick manually resulted CULTURE, GROUP B STREP WITH SUSCEPTIBLITY CULTURE, GROUP B STREP WITH SUSCEPTIBLITY 2. 35 weeks gestation of ([facility]) Z3A.35 3. Psychogenic nonepileptic seizure F44.5 [...] Plan of Treatment DateTypeDepartmentCare Team (Latest Contact Info)Aeqmdekoujt94/19/2025 3:10 PM ESTRoutine NOMStacey COSTA [address] [place] [phone] Gogo Pang PA [address] [facility] [address] [facility] [address] [place], [place] [id number] 07/17/2025 3:40 PM ESTPostpartum Visit PIYUSH COSTA [address] [place] [address] Wolfgang Hoffman DO [address] [facility] [address] [facility] [address] [place], [place] [id number] NameTypePriorityAssociated DiagnosesOrder ScheduleCULTURE, GROUP B STREP WITH SUSCEPTIBLITYLabRoutine Third trimester ([facility]) Expected: 06/10/2025, Expires: 06/10/2026documented as of this encounter Procedures Procedure NamePriorityDate/TimeAssociated DiagnosisCommentsPOCT URINALYSIS WYNWKUJEVmeuysj33/03/2025 4:12 PM EST Third trimester ([facility]) documented in this encounter Results * [...] 4:12 PM EST Narrative Authorizing ProviderResult TypeResult StatusHub[facility] OF CARE TEST ENTER/EDIT ORDERABLESFinal Result documented in this encounter Visit Diagnoses Diagnosis Third trimester ([facility]) state, incidental 35 weeks gestation of ([facility]) Psychogenic nonepileptic seizure documented in this encounter Care Teams Team MemberRelationshipSpecialtyStart DateEnd Date Jose E Burns MD [address] [place] [address] PCP - GeneralFamily Medicine02/16/23documented as of this encounter
--- OUTSIDE RECORDS SUMMARY | 2025-06-10 15:50 | XMS_ITS | Encounter Summary ---
Author Organization [facility] Address [address] [facility] [place] [address] Care Team Providers Care Purse Maker Name Role Phone Jose E Burns MD Primary Care Provider [phone] Reason for Visit * ReasonCommentsRoutine Visit Encounter Details DateTypeDepartmentCare Team (Latest Contact Info)Demuwtwcmkh58/03/2025 3:50 PM ESTRoutine [facility] [address] [place] [address] Gogo Pang PA [address] [facility] [address] [place], [facility]11 Third trimester ([facility]); 35 weeks gestation of ([facility]); Psychogenic nonepileptic seizure Social History Tobacco UseTypesPacks/DayYears UsedDateSmoking Tobacco: Never AssessedPHQ-2 AnswerDate RecordedPatient Health Questionnaire-2 Fyuhc97308/10/2024 Estimated Date of HkjopqjpKzydruccBzx24/03/2025Based on Ultrasound, FHR-158Sex and Gender InformationValueDate RecordedSex Assigned at BirthNot on fileLegal XvmUzjujh84/15/2023 6:34 PM EDTGender IdentityNot on fileSexual OrientationNot on filedocumented as of this encounter Last Filed Vital Signs Vital SignReadingTime TakenCommentsBlood Dzxhvydp215/8011/10/2024 4:03 PM EST Pulse--Temperature--Respiratory Rate--Oxygen Saturation--Inhaled Oxygen Concentration--Ewbgeq25.8 kg (165 lb)06/10/2025 4:03 PM ESTHeight--Body Mass Index26.63012/21/2022 12:00 PM EDTdocumented in this encounter Functional Status * Over the past 2 weeks, how often have you been bothered by any of the following problems?QuestionAnswerDate of AssessmentAuthorLittle interest or pleasure in doing thingsNot at all06/10/2025 11:36 AM Gogo Glass LPN Feeling down, depressed, or hopelessNot at all06/10/2025 11:36 AM Gogo Glass LPNPatient Health Questionnaire-2 Fvpmg87308/10/2024 11:36 AM Gogo Glass LPN documented as [...] Ambulatory Problems Diagnosis Date Noted Third trimester ([facility]) 12/27/2022 ADHD (attention deficit hyperactivity disorder) 01/11/2012 [...] nursing note reviewed. Exam conducted with a direct care staffer present. Vitals: Estimated body mass index is 26.63 kg/m?? as calculated from the following: Height as of 12/21/22: 5' 6 . Weight as of this encounter: 165 lb. BP: 128/80 No LMP recorded. Patient is . Assessment/Plan ICD-10-CM 1. Third trimester ([facility]) Z34.93 POCT urinalysis dipstick manually resulted CULTURE, GROUP B STREP WITH SUSCEPTIBLITY CULTURE, GROUP B STREP WITH SUSCEPTIBLITY 2. 35 weeks gestation of ([facility]) Z3A.35 3. Psychogenic nonepileptic seizure F44.5 Patient [...] Plan of Treatment DateTypeDepartmentCare Team (Latest Contact Info)Pvhbreacshm67/19/2025 3:10 PM ESTRoutine NOMStacey COSTA [address] [place] [phone] Gogo Pang PA [address] [facility] [facility] [address] [facility] [address] [place], [place] [phone] 07/17/2025 3:40 PM ESTPostpartum Visit PIYUSH COSTA [address] [place] [address] Wolfgang Hoffman DO [address] [facility] [place], [place] [id number] NameTypePriorityAssociated DiagnosesOrder ScheduleCULTURE, GROUP B STREP WITH SUSCEPTIBLITYLabRoutine Third trimester ([facility]) Expected: 06/10/2025, Expires: 06/10/2026documented as of this encounter Procedures Procedure NamePriorityDate/TimeAssociated DiagnosisCommentsPOCT URINALYSIS XXIOARPUYfkejyi61/03/2025 4:12 PM EST Third trimester ([facility]) documented in this encounter Results * (ABNORMAL) [...] 4:12 PM EST Narrative Authorizing ProviderResult TypeResult StatusB[facility] Hospital OF CARE TEST ENTER/EDIT ORDERABLESFinal Result documented in this encounter Visit Diagnoses Diagnosis Third trimester ([facility]) state, incidental 35 weeks gestation of ([facility]) Psychogenic nonepileptic seizure documented in this encounter Care Teams Team MemberRelationshipSpecialtyStart DateEnd Date Jose E Burns MD [address] [place] [address] PCP - GeneralFamily Medicine02/16/23documented as of this encounter
--- OUTSIDE RECORDS SUMMARY | 2025-06-17 04:34 | XMS_ITS | Continuity of Care Document ---
Author Organization [facility] Address [address] [place] [address] Phone Care Team Providers Care Cumulative Effects Analyst Name Role Phone Tyson Dillard DO Attending Provider Jose E Burns MD Primary Care Provider Care Teams Patient Care Team Team Status: Active Member Role/Relationship Status Dates Jose E Burns MD Primary Care Provider Active Patient Care Team Team Status: Inactive Member Role/Relationship Status Dates Tyson Dillard DO Attending Provider Active Start: June 17, 2025 End: June 17, 2025Winnie Thomas Care ProviderActiveStart: June 17, 2025 End: June 17, 2025 Chief Complaint and Reason for Visit Reason for Visit Admit Date Psychogenic nonepileptic seizure [facility] 2024 8:49am Allergies, Adverse Reactions, Alerts Allergen Type Severity Reaction Last Updated Verified Status No Known Allergies Allergy Unknown June 17, 2025 8:56amYesActive Social History Smoking Status Unknown if ever smoked Observation Status Observation Response Date of Response Legal Sex Female (finding) [facility] Problems Active Problems Problem Diagnosis/Recorded Date Onset Date Stat Psychogenic nonepileptic seizure June 17, 2025 9 :07am Unknown Active Vital Signs Vital Reading Result Reference Range Collection Date/Time Weight 77.16 kg June 17, 2025 8:55amHeart Rate83 /lfz46-840ZxligeagJune 17, 2025 8:55am Oxygen saturation by Pulse qdknfami14 %95-100June 17, 2025 8:55amBP Izegcuoz861 mm[Hg]100-140June 17, 2025 8:55amBP Hmuowzxpv98 mm[Hg]60-100 June 17, 2025 8:55am Advance Directives Advance Directive Response Recorded Date/ Time Advance Directives No December 01, 021 9:07am Insurance Providers Guarantor Niecy Tavera Address [address] [place] [id number] Info.Home Phone: Payer Group Member ID Coverage Type Subscriber Relationship to Subscriber Effective Date Expiration Date [employer] [id number] Goble , M Id: [id number] [address] [place] [id number] Home Phone: Email: declinedSelf Encounters Encounter Location(s) Arrival/Admit Date Discharge/Departure Date Discharge/Departure Disposition Provider(s) Departed Physician/ Provider Office Visit -[facility] Neu[facility] [place] June 17, 2025 8:49am June 17, 2025 9:29am Discharged to home care or self care (routine discharge) Juan Manuel Matta DO Recent Diagnosis Onset Date Admit Date Psychogenic nonepileptic seizure Unknown June 17, 2025 8:49am Assessments Diagnosis Onset Date Resolution Status Admit Date Psychogenic nonepileptic seizure acuteJune 17, 2025 8:49am Plan of Treatment Author Tyson Dillard [facility]June 17, 2025 9:16amThe patient presents today with a history of seizure disorder. I had seen the patient many years ago and she was followed for nonepileptic seizures. She did have a typical clinical episode of seizure captured on video EEG at [facility] which was nonepileptic in nature. She had previously been on Keppra and Dilantin in the past which were stopped due to the nonepileptic etiology and she was placed on lamotrigine 100 mg p.o. twice daily. She does not appear to be on that medication today. Her examination today is unremarkable. She notes continued almost daily seizure events and is 8 months today. Based on the stress of previous evaluation indicating nonepileptic etiology, I suspect that the ongoing events are nonepileptic in nature. Additionally, given the fact that the patient was punching during the episode described in the history of present illness further suggest ongoing nonepileptic etiology. Plan: Albeit these are likely nonepileptic, given the patient's history of seizure disorder and history of ongoing events, I do suggest that the patient be a consult for maternal- medicine in [place]. Was also previously suggested that the patient presented again to [facility] for further evaluation and treatment of her ongoing seizure-like events. I agree with this and I do feel that ongoing care at a tertiary care center such as [place] is in the patients best interest. Given the nonepileptic etiology, I do not favor starting the patient on antiepileptic therapy especially given the fact that she is currently 8 months . I suggest ongoing vitamins and folic acid supplementation at the direction of OB/MFM. Precautions including no driving, subbing alone, swimming alone, operating from heights or operating heavy machinery are advised. Future Tests Future scheduled test information is unavailable Pending Tests Pending diagnostic test information is unavailable Future Visits Future appointment information is unavailable Future Procedures Future procedure information is unavailable Future Medications Future medication information is unavailable Patient Instructions Patient instructions are unavailable
--- OUTSIDE RECORDS SUMMARY | 2025-06-19 15:30 | XMS_ITS | Encounter Summary ---
Author Organization [facility] Address [address] [facility] [place] [address] Care Team Providers Care Mailing Jogger Name Role Phone Jose E Burns MD Primary Care Provider [phone] Reason for Visit * ReasonCommentsRoutine Visit Encounter Details DateTypeDepartmentCare Team (Latest Contact Info)Bfnpheprngh80/12/2025 3:30 PM ESTRoutine [facility] [address] [place] [address] Wolfgang Hoffman DO [address] [facility] [facility] [address] [place], [facility]11 Third trimester ([facility]); 37 weeks gestation of ([facility]) Social History Tobacco UseTypesPacks/DayYears UsedDateSmoking Tobacco: Never AssessedPHQ-2 AnswerDate RecordedPatient Health Questionnaire-2 Hgkgn02108/10/2024 Estimated Date of NnyqvkqaRqevqwoaCdl35/03/2025Based on Ultrasound, FHR-158Sex and Gender InformationValueDate RecordedSex Assigned at BirthNot on fileLegal AkuOhachc69/15/2023 6:34 PM EDTGender IdentityNot on fileSexual OrientationNot on filedocumented as of this encounter Last Filed Vital Signs Vital SignReadingTime TakenCommentsBlood Uzyqzaix494/7606/19/2025 3:46 PM EST Pulse--Temperature--Respiratory Rate--Oxygen Saturation--Inhaled Oxygen Concentration--Xpkczr42.9 kg (169 lb 8 oz)06/19/2025 3:46 PM ESTHeight--Body Mass Index27.36012/21/2022 12:00 PM EDTdocumented in this encounter Progress Notes * Porsha Mejia, DATA INTEGRATION DEVELOPER - 06/19/2025 3:30 PM EST Reason for Appointment: Patient ID: [...] Ambulatory Problems Diagnosis Date Noted Third trimester ([facility]) 12/27/2022 ADHD (attention deficit hyperactivity disorder) 01/11/2012 [...] appearance. She is well-developed. Genitourinary: Vulva normal. Cardiovascular: Rate and Rhythm: Normal rate and [...] nursing note reviewed. Exam conducted with a anesthesiology technologist present. Vitals: Estimated body mass index is 27.36 kg/m?? as calculated from the following: Height as of 12/21/22: 5' 6 . Weight as of this encounter: 169 lb 8 oz. BP: 130/76 No LMP recorded. Patient is . Assessment/Plan ICD-10-CM 1. Third trimester ([facility]) Z34.93 2. 37 weeks gestation of ([facility]) Z3A.37 POCT urinalysis dipstick manually resulted Assessment/Plan Return OB: Patient presents today for a routine obstetrics appointment. Patient is currently 37w0d . Patient states she is doing well but has complaints of being tired due to current . Patient has verbalizes frequent movement. labor precautions was discussed/given and patient was instructed to perform kick counts three times a day. Orders Placed This Encounter Procedures POCT urinalysis dipstick manually resulted Follow Up: Patient is to return to office in 1 week for routine OB appointment. Pt to have growth ultrasound obtained Documented by Porsha Mejia LPN on behalf of: Wolfgang Hoffman DO documented in this encounter Plan of Treatment DateTypeDepartmentCare Team (Latest Contact Info)Jupjkfauiug97/19/2025 3:10 PM ESTRoutine [facility] [address] [place] [address] Gogo Pang PA [address] [place] [address] 07/17/2025 3:40 PM ESTPostpartum Visit [facility] [address] [place] [address] Wolfgang Hoffman DO [address] [place], [place] [id number] documented as of this encounter Procedures Procedure NamePriorityDate/TimeAssociated DiagnosisCommentsPOCT URINALYSIS ZUQJGRANDloqltp43/12/2025 3:55 PM EST 37 weeks gestation of ([facility]) documented in this encounter Results * (ABNORMAL) POCT urinalysis dipstick manually resulted (06/19/2025 3:55 PM EST) ComponentValueRef RangeTest MethodAnalysis TimePerformed AtPathologist SignatureColor, UAYellowClarity, UAClearGlucose, UANegativeNegative - 2000(110) ++++ mg/dLBilirubin, UANegativeNegative - 4(70) +++ mg/dLKetones, UA NegativeNegative - 160(16) ++++ mg/dLSpec Grav, UA1.0251 - 1.03Blood, UA NegativeNegative - 50 Blayne/mcLpH, UA6.05 - 9Protein, UANegativeNegative - 2000(20) ++++ mg/dLUrobilinogen, UA0.20.2 - 12 mg/dLLeukocytes, UAPositive Negative - 500+++ Jo/mcLComment:3+Nitrite, UANegativeNegative - Positive Specimen (Source)Anatomical Location / LateralityCollection Method / Volume Collection TimeReceived CppsLqtsq41/12/2025 3:55 PM EST Narrative Authorizing ProviderResult TypeResult StatusCorey Yasmin DOPOINT OF CARE TEST ENTER/EDIT ORDERABLESFinal Result documented in this encounter Visit Diagnoses Diagnosis Third trimester ([facility]) state, incidental 37 weeks gestation of ([facility]) documented in this encounter Care Teams Team MemberRelationshipSpecialtyStart DateEnd Date Jose E Burns MD [address] [facility] [place] [address] PCP - GeneralFamily Medicine02/16/23documented as of this encounter
--- OUTSIDE RECORDS SUMMARY | 2025-06-19 15:30 | XMS_ITS | Encounter Summary ---
Author Organization [facility] Address [address] [facility] [place] [address] Care Team Providers Care Buttonhole Machine Operator Name Role Phone Jose E Burns MD Primary Care Provider [phone] Reason for Visit * ReasonCommentsRoutine Visit Encounter Details DateTypeDepartmentCare Team (Latest Contact Info)Mhybyirhwfj63/12/2025 3:30 PM ESTRoutine [facility] [address] [facility] [address] Wolfgang Hoffman DO [address] [facility] [address] [place], [facility]11 Third trimester ([facility]); 37 weeks gestation of ([facility]) Social History Tobacco UseTypesPacks/DayYears UsedDateSmoking Tobacco: Never AssessedPHQ-2 AnswerDate RecordedPatient Health Questionnaire-2 Gdgyd34408/10/2024 Estimated Date of CabozrvtLybjhrdvYuz07/03/2025Based on Ultrasound, FHR-158Sex and Gender InformationValueDate RecordedSex Assigned at BirthNot on fileLegal GrpRuvuls51/15/2023 6:34 PM EDTGender IdentityNot on fileSexual OrientationNot on filedocumented as of this encounter Last Filed Vital Signs Vital SignReadingTime TakenCommentsBlood Drmdssga550/7606/19/2025 3:46 PM EST Pulse--Temperature--Respiratory Rate--Oxygen Saturation--Inhaled Oxygen Concentration--Mhxxti49.9 kg (169 lb 8 oz)06/19/2025 3:46 PM ESTHeight--Body Mass Index27.36012/21/2022 12:00 PM EDTdocumented in this encounter Progress Notes * Porsha Mejia, STRUCTURAL ENGINEERING TECHNICIAN - 06/19/2025 3:30 PM EST Reason for [...] Ambulatory Problems Diagnosis Date Noted Third trimester ([facility]) 12/27/2022 ADHD (attention deficit hyperactivity disorder) 01/11/2012 [...] nursing note reviewed. Exam conducted with a clothing trades workers present. Vitals: Estimated body mass index is 27.36 kg/m?? as calculated from the following: Height as of 12/21/22: 5' 6 . Weight as of this encounter: 169 lb 8 oz. BP: 130/76 No LMP recorded. Patient is . Assessment/Plan ICD-10-CM 1. Third trimester ([facility]) Z34.93 2. 37 weeks gestation of ([facility]) Z3A.37 POCT urinalysis dipstick manually resulted Assessment/Plan [...] Plan of Treatment DateTypeDepartmentCare Team (Latest Contact Info)Gxnsznqbmjx06/19/2025 3:10 PM ESTRoutine [facility] [address] [facility] [phone] Gogo Pang PA [address] [facility] [place] [address] 07/17/2025 3:40 PM ESTPostpartum Visit [facility] [address] [facility] [place] [address] Wolfgang Hoffman DO [address] [facility] [address] [place], [place] [id number] documented as of this encounter Procedures Procedure NamePriorityDate/TimeAssociated DiagnosisCommentsPOCT URINALYSIS FWRVHZAAAwdtoao68/12/2025 3:55 PM EST 37 weeks gestation of ([facility]) documented in this encounter Results * [...] / LateralityCollection Method / Volume Collection TimeReceived TwbkMwurr06/12/2025 3:55 PM EST Narrative Authorizing ProviderResult TypeResult StatusCorey Yasmin DOPOINT OF CARE TEST ENTER/EDIT ORDERABLESFinal Result documented in this encounter Visit Diagnoses Diagnosis Third trimester ([facility]) state, incidental 37 weeks gestation of ([facility]) documented in this encounter Care Teams Team MemberRelationshipSpecialtyStart DateEnd Date Jose E Burns MD [address] [facility] [place] [address] PCP - GeneralFamily Medicine02/16/23documented as of this encounter
--- NOTE | 2025-06-20 | US_ITS ---
The [address] [address] Patient Name: NICKO EVANS MRN: [id number] date: 2005 Sex: F Assigned Patient Location: [facility] Current Patient Location: [facility] Accession/Order Number: [id number] Exam Date: 06/20/2025 14:56 Report Date: 06/21/2025 07:54 At the request of: TIFFANY NOGUEIRA DO Procedure: US OB growth ULTRASOUND OB GROWTH COMPARISON: 11/24/2024 CLINICAL DATA: Size and consistent with dates. There is a single live intrauterine gestation in cephalic presentation. There is cardiac and somatic activity with heart rate of 123 bpm. The amniotic fluid index measures 10 cm which is in low-normal range. The placenta is anterior. The following measurements were obtained: Biparietal diameter 9.3 cm 37 weeks 6 days 82% Head circumference 34.2 cm 39 weeks 3 days 79% Abdominal circumference 33.3 cm 37 weeks 1 day 65% Femur length 6.9 cm 35 weeks 4 days 13% The composite ultrasound age based these measurements is 37 weeks 4 days +/- 2 weeks 4 days. The estimated date of delivery is 07/07/2025. The estimated weight is 6 lbs. 14 oz. +/- 1 pound 0 ounces (56%). US/US OB growth IMPRESSION: SINGLE LIVE INTRAUTERINE GESTATION WITH ULTRASOUND AGE OF 37 WEEKS 4 DAYS Impression dictated by: Porsha Rollins M.D. 06/21/2025 7:54 AM Dictation Location: [place] [address] Electronically authenticated by: [id number] Y Date: 06/21/2025 07:54
--- OUTSIDE RECORDS SUMMARY | 2025-06-20 13:58 | XMS_ITS | Encounter Summary ---
Author Organization [facility] Address [address] [facility] [place] [address] Care Team Providers Care Substance Abuse Rn Name Role Phone Jose E Burns MD Primary Care Provider [phone] Encounter Details DateTypeDepartmentCare Team (Latest Contact Info)Txghmutihvk81/12/2025Bamboo flowsheet [facility] [address] [place] [address] Wolfgang Hoffman DO [address] [place] [address] Social History Tobacco UseTypesPacks/DayYears UsedDateSmoking Tobacco: Never AssessedPHQ-2 AnswerDate RecordedPatient Health Questionnaire-2 Jyeti84008/10/2024 Estimated Date of JehzvxmfYgtzyhfdLml11/03/2025Based on Ultrasound, FHR-158Sex and Gender InformationValueDate RecordedSex Assigned at BirthNot on fileLegal QvlQnhkju24/15/2023 6:34 PM EDTGender IdentityNot on fileSexual OrientationNot on filedocumented as of this encounter Plan of Treatment DateTypeDepartmentCare Team (Latest Contact Info)Jtgdlebanyo30/19/2025 3:10 PM ESTRoutine [facility] [address] [place] [address] Gogo Pang PA [address] [facility] [address] [place], [place] [phone] 07/17/2025 3:40 PM ESTPostpartum Visit [facility] [address] [facility] [place] [address] Wolfgang Hoffman DO [address] [facility] [place] [address] documented as of this encounter Visit Diagnoses Not on filedocumented in this encounter Care Teams Team MemberRelationshipSpecialtyStart DateEnd Date Jose E Burns MD [address] [facility] [place] [phone] PCP - GeneralFamily Medicine02/16/23documented as of this encounter
--- OUTSIDE RECORDS SUMMARY | 2025-06-20 13:58 | XMS_ITS ---
Author Organization [facility] Source Produ ction (ClinicalSummary Clone) Address Unknown Care Team Providers Care Life Insurance Sales Agent Name Role Phone Unavailable Primary Care Physician Unavailab le Results * [UNITY] ANEUPLOIDY NIPT Performed by: TPACK Component Value Range Date Fraction 5.3% 12/17/2024 10:59 pm UTCRh(D) NIPTRhD ZHUREHVV63/12/2025 10:59 pm UTCSex Chromosome AneuploidyNOT TZIUFSAK07/12/2025 10:59 pm UTCMonosomy XLOW RISK <1 in , 10:59 pm UTCTrisomy 13LOW RISK <1 in , 10:59 pm UTCTrisomy 18LOW RISK <1 in , 10:59 pm UTCTrisomy 21LOW RISK <1 in , 10:59 pm UTCFetal PfvHZGP5212/17/2024 10:59 pm UTCPregnancy JpcoumdhkDCOQOURZI74/12/2025 10:59 pm UTCFor detailed report, see PDFSee PDF 12/17/2024 10:59 pm UTC12/17/2024 10:59 pm UTC Social History Observation Value Start Date End Date
--- OUTSIDE RECORDS SUMMARY | 2025-06-20 13:58 | XMS_ITS | Clinical Summary ---
Author Organization [facility] tem Address [facility] [place] [address] Care Team Providers Care Roll Tender Name Role Phone Jose E Burns MD Primary Care Provider [phone] Allergies No known active allergies Medications MedicationSigDispense [...] standard drink = 0.6 oz pure alcohol)ChildcareAnswerDate FkdsvwxvAzlchxngsCfxbckb76/12/2019EmploymentAnswer Date TexxhrmvLnlcvyxzwsFeyrtis48/12/2019Hunger ScreeningAnswerDate Recorded Within the past 12 months we worried whether our food would run out before we got money to buy more.Never True10/18/2023Food Insecurity - InabilityNot on file 10/18/2023CommentsNoSex and Gender InformationValueDate RecordedSex Assigned at BirthNot on fileLegal DbwXbkykd17/06/2015 12:01 PM EDTGender IdentityNot on fileSexual OrientationNot on file Last Filed Vital Signs Vital SignReadingTime TakenCommentsBlood Zjgbwgaw124/6203 10:03 AM EDT Jjhrl573110/18/2023 10:03 AM YDIEyzmyxdbtaa37.4 ??C (97.5 ??F)10/03/2023 1:45 PM ESTRespiratory Gkpk980410/03/2023 2:29 PM ESTOxygen Nqiefjsehf755%10/03/2023 2:29 PM ESTInhaled Oxygen Concentration--Unexox33.6 kg (133 lb 9.6 oz)10/18/2023 10:03 AM NUEJklcpt697.3 cm (5' 9 )10/18/2023 10:03 AM EDTBody Mass Index19.73 10/18/2023 10:03 AM EDT Plan of Treatment Health MaintenanceDue DateLast DoneCommentsDepression Jybtvceov11/16/2015Pap Smear2024dult BMI Rcicngbsn52Tobacco Screening Influenza Csrudeg35/, 06/22/2016, 07/29/2011DTaP,Tdap and Td Vaccines (7 - Td or Tdap)6003/25/2016, 04/23/2009, 02/24/2007, Additional history exists Medical Devices Not on file Insurance Care Teams Team MemberRelationshipSpecialtyStart DateEnd Date Jose E Burns MD PCP - Generalmily Medicine03/25/21
--- OUTSIDE RECORDS SUMMARY | 2025-06-20 13:58 | XMS_ITS | Patient Health Record ---
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 06/28/2024 Ozzie Hoy Acute bronchitis J20 .9 [facility] [address] [facility] [place] [address] 08/20/2024 Ozzie Hoy [facility] [place] [address] 11/08/2024Doug HoyNonepileptic episode [place]56.[place] [address] [place] [address]/27/2025Doug HoySickle cell trait D57.[address] [address] 06/05/2025Doug Hoy Assessments Encounter Date Diagnosis (ICD Code) Assessment Notes Treatment Notes Treatment Clinical Notes Section Notes 06/26/2024 Acute bronchitis (ICD-10 - J20.9 ) hx asthma, wwwhjj43cute bronchitis, unspecified organism (ICD-10 - J20.9)Rest and drink more liquids, especially water. You may use a humidifier or vaporizer to help keep the drainage moist. Syer-ljn-jiiecam Nasal Saline may help the stuffy and runny nose. Use Ibuprofen and or Tylenol as needed for fever, chills, body aches or pain. Children 5 years old should not be given csfz-cic-tdnchee cough and cold medications such as guaifenesin and dextromethorphan. If you're over age 5, you may try jwnl-ivp-cvbrcam cold medications such as guaifenesin and dextromethorphan, [...] go to the emergency room or call [phone] episode (ICD-10 - R56.9)5Acute bronchitis, unspecified organism (ICD-10 - J20.9)Rest and drink more liquids, especially water. You may use a humidifier or vaporizer to help keep the drainage moist. Eiik-cyd-tsmamqk Nasal Saline may help the stuffy and runny nose. Use Ibuprofen and or Tylenol as needed for fever, chills, body aches or pain. Children 5 years old should not be given pcvy-jkz-tvmsgaa cough and cold medications such as guaifenesin and dextromethorphan. If you're over age 5, you may try bajw-iwa-ciiturh cold medications such as guaifenesin and dextromethorphan, [...] go to the emergency room or call [phone] (ICD- 10 - R05.9)4Amenorrhea (ICD-10 - N91.2)4Acute sinusitis (ICD- 10 - J01.90)4Acute bronchitis (ICD-10 - J20.9)11/08/2024Nonepileptic episode (ICD-10 - R56.9)06/03/2025Sickle cell trait (ICD-10 - D57.3)05/29/2025 Acute non-recurrent sinusitis, unspecified location (ICD-10 - J01.90)Rest and drink more liquids, especially water. You may use a humidifier or vaporizer to help keep the drainage moist. Cksy-shr-wboqjlx Nasal Saline may help the stuffy and runny nose. Use Ibuprofen and or Tylenol as needed for fever, chills, body aches or pain. Children 5 years old should not be given coiy-fsr-fyricpq cough and cold medications such as guaifenesin and dextromethorphan. If you're over age 5, you may try wkez-mku-xicniky cold medications such as guaifenesin and dextromethorphan, [...] ABD FLAT UP_PA CH 06/02/2023 Hgb Fractionation [place] 06/03/2025 Insurance Providers Payer Name Payer Address Payer Phone Subscriber Number Group Number Insured Name Patient Relationship to Insured Coverage Start Date Coverage End Date [employer] [place] [employer] [address] [place] [id number] Kathryn Piperelf - patient is the [id number] 2024 Medical (General) History Medical History History [...]
--- OUTSIDE RECORDS SUMMARY | 2025-06-20 13:58 | XMS_ITS | Encounter Summary ---
Author Organization [facility] Address [address] [facility] [place] [address] Care Team Providers Care Compressor Mechanic Name Role Phone Jose E Burns MD Primary Care Provider [phone] Encounter Details DateTypeDepartmentCare Team (Latest Contact Info)Kwxjcnqvkwg95/03/2025Patient Outreach [facility] [address] [place] [address] Gogo Montiel LPN [address], [place] [id number] Social History Tobacco UseTypesPacks/DayYears UsedDateSmoking Tobacco: Never AssessedPHQ-2 AnswerDate RecordedPatient Health Questionnaire-2 Ogiey87708/10/2024 Estimated Date of EhdjijsoSncwiwpaRyz02/03/2025Based on Ultrasound, FHR-158Sex and Gender InformationValueDate RecordedSex Assigned at BirthNot on fileLegal KzvUkvzxm27/15/2023 6:34 PM EDTGender IdentityNot on fileSexual OrientationNot on filedocumented as of this encounter Functional Status * Over the past 2 weeks, how often have you been bothered by any of the following problems?QuestionAnswerDate of AssessmentAuthorLittle interest or pleasure in doing thingsNot at all06/10/2025 11:36 AM Gogo Glass LPN Feeling down, depressed, or hopelessNot at all06/10/2025 11:36 AM Gogo Glass LPNPatient Health Questionnaire-2 Lrqdp86208/10/2024 11:36 AM Gogo Glass LPN documented as [...] Plan of Treatment DateTypeDepartmentCare Team (Latest Contact Info)Uuxnveskdtu78/19/2025 3:10 PM ESTRoutine [facility] [address] [facility] [place] [address] Gogo Pang PA [address] [place], [place] [address] 07/17/2025 3:40 PM ESTPostpartum Visit [facility] [address] [facility] [facility] [place] [address] Wolfgang Hoffman DO [address] [place] [place], [place] [phone] documented as of this encounter Visit Diagnoses Not on filedocumented in this encounter Care Teams Team MemberRelationshipSpecialtyStart DateEnd Date Jose E Burns MD [address] [facility] [place] [address] [phone] PCP - GeneralFamily Medicine02/16/23documented as of this encounter
--- OUTSIDE RECORDS SUMMARY | 2025-06-20 13:58 | XMS_ITS | Encounter Summary ---
Author Organization [facility] Address [address] [facility] [place] [address] Care Team Providers Care Car Knocker Name Role Phone Jose E Burns MD Primary Care Provider [phone] Encounter Details DateTypeDepartmentCare Team (Latest Contact Info)Bwooreecabx86/03/2025Clinisync Result Encounter [facility] External Department Unsolicited Gogo Pang, MICHELLE [address] [place] [address] [place] [address] Social History Tobacco UseTypesPacks/DayYears UsedDateSmoking Tobacco: Never AssessedPHQ-2 AnswerDate RecordedPatient Health Questionnaire-2 Okukw25708/10/2024 Estimated Date of GvzdsotwBottfshiEfh77/03/2025Based on Ultrasound, FHR-158Sex and Gender InformationValueDate RecordedSex Assigned at BirthNot on fileLegal NynHkonss64/15/2023 6:34 PM EDTGender IdentityNot on fileSexual OrientationNot on filedocumented as of this encounter Functional Status * Over the past 2 weeks, how often have you been bothered by any of the following problems?QuestionAnswerDate of AssessmentAuthorLittle interest or pleasure in doing thingsNot at all06/10/2025 11:36 AM Gogo Glass LPN Feeling down, depressed, or hopelessNot at all06/10/2025 11:36 AM Gogo Glass LPNPatient Health Questionnaire-2 Kbgbv08908/10/2024 11:36 AM Gogo Glass LPN documented as of this encounter Plan of Treatment DateTypeDepartmentCare Team (Latest Contact Info)Thzyevzhhmg91/19/2025 3:10 PM ESTRoutine [facility] [address] [facility] [place] [address] Gogo Pang PA [address] [facility] [address] [place], [place] [address] 07/17/2025 3:40 PM ESTPostpartum Visit [facility] [address] [facility] [place] [address] Wolfgang Hoffman DO [address] [facility] [address] [place], [place] [phone] documented as of this encounter Procedures Procedure NamePriorityDate/TimeAssociated DiagnosisCommentsSTREP GP B CULTURE+JIKXDvdurfi45/03/2025 4:02 PM EST documented in this encounter Results * STREP GP B CULTURE+RFLX (06/10/2025 4:02 PM EST)ComponentValueRef RangeTest MethodAnalysis TimePerformed AtPathologist SignatureSTREP GP B CULTURE+RFLX ??Strep Gp B Culture+Rflx TBHSTREP GP B CULTURE+RFLXNegativeTBHSTREP GP B CULTURE+RFLXCenters for Disease Control and Prevention (CDC) andTBHSTREP GP B CULTURE+RFLXAmerican Congress of Obstetricians and GynecologistsTBHSTREP GP B CULTURE+RFLX(ACOG) guidelines for prevention of group BTBHSTREP GP B CULTURE+RFLXstreptococcal (GBS) disease specify co-collection ofTBHSTREP GP B CULTURE+RFLXa vaginal and rectal swab specimen to maximizeTBHSTREP GP B CULTURE+RFLXsensitivity of GBS detection. Per the CDC and ACOG,TBHSTREP GP B CULTURE+RFLXswabbing both the lower vagina and rectumTBHSTREP GP B CULTURE+RFLXsubstantially increases the yield of detectionTBHSTREP GP B CULTURE+RFLXcompared with sampling the vagina alone.TBH STREP GP B CULTURE+RFLXPenicillin G, ampicillin, or cefazolin are indicatedTBH STREP GP B CULTURE+RFLXfor intrapartum prophylaxis of GBSTBHSTREP GP B CULTURE+RFLXcolonization. Reflex susceptibility testing should beTBHSTREP GP B CULTURE+RFLXperformed prior to use of clindamycin only on GBSTBHSTREP GP B CULTURE+RFLXisolates from penicillin-allergic women who areTBHSTREP GP B CULTURE+RFLXconsidered a high risk for anaphylaxis. Treatment withTBHSTREP GP B CULTURE+RFLXvancomycin without additional testing is warranted ifTBHSTREP GP B CULTURE+RFLXresistance to clindamycin is noted.TBHSTREP GP B CULTURE+RFLX Performed at: [facility] LabProMed[facility] HospitalTBHSTREP GP B CULTURE+[id number] [place], [place] [id number] GP B CULTURE+RFLXLab Director: Raimundo Cardenas PhD, Phone: [phone] (Source)Anatomical Location / Laterality Collection Method / VolumeCollection TimeReceived Time06/10/2025 4:02 PM EST 06/10/2025 8:50 PM EST Narrative [facility] - 06/15/2025 6:09 PM EST Authorizing ProviderResult TypeResult StatusAmy Poly PAL BLOOD ORDERABLES Final ResultPerforming OrganizationAddressCity/State/ZIP CodePhone Number [facility] TB documented in this encounter Visit Diagnoses Not on filedocumented in this encounter Care Teams Team MemberRelationshipSpecialtyStart DateEnd Date Jose E Burns MD [address] [place] [address] PCP - GeneralFamily Medicine02/16/23documented as of this encounter
--- OUTSIDE RECORDS SUMMARY | 2025-06-20 13:58 | XMS_ITS | Clinical Summary ---
Author Organization [facility] Address [address] [facility], [address] [place] [address] Care Team Providers Care Sales Representative Uniforms Name Role Phone Unavailable Primary Care Provider [...] for CrampingActive Active Problems ProblemNoted DateDiagnosed DatePsychiatric xsuuvqg7708/30/2023Seizure-like kuqjjene65/23/2024 Social History Tobacco UseTypesPacks/DayYears UsedDateSmoking Tobacco: NeverSmokeless Tobacco: Never Tobacco Cessation:Counseling Given: Not Answered Alcohol UseStandard Drinks/WeekCommentsNever0 (1 standard drink = 0.6 oz pure alcohol)[facility] UtilitiesAnswerDate RecordedIn the past 12 months has the [employer], gas, oil, or water Aternity threatened to shut off services in your [...] from getting things needed for daily living?Patient /23/2024Housing Stability Vital SignAnswerDate RecordedIn the last 12 months, was there a time when you were not able to pay the mortgage or rent on time?No08/30/2023In the last 12 months, how many places have you lived?1 08/30/2023In the last 12 months, was there a time when you did not have a steady place to sleep or slept in ashelter (including now)?No08/30/2023Interpersonal Safety ([facility] HRSN)AnswerDate RecordedHow often does anyone, including family and friends, physically hurt you?Patient dcdmkivp60/23/2024How often does anyone, including family and friends, [...] you with harm?Not on file08/30/2023ead-Only, Retired: Physical FjferWljyct53/23/2024ead-Only, Retired: Verbal AbuseDenies 08/30/2023ead-Only, Retired: Emotional djpamNgwige24/23/2024ead-Only, Retired: Financial FcewsCqhxit99/23/2024ead-Only, Retired: Sexual lxypvZlgatz49/23/2024 CommentsUnknownSex and Gender InformationValueDate RecordedSex Assigned at BirthNot on fileLegal LwjCisadm40/16/2019 9:09 AM EDTGender IdentityNot on fileSexual OrientationNot on file Last Filed Vital Signs Vital SignReadingTime TakenCommentsBlood Ogcvbhko316/7408/31/2023 3:44 PM EST Zxzxq987208/31/2023 3:44 PM CIREfsdgnhnlpq28.8 ??C (98.3 ??F)08/31/2023 3:44 PM ESTRespiratory Ukdy973908/31/2023 3:44 PM ESTOxygen Wljfabqxco66%08/31/2023 3:44 PM ESTInhaled Oxygen Concentration--Lzclza44.5 kg (131 lb 2.8 oz)08/30/2023 12:35 PM ISJVxdnqv979.3 cm (5' 9 )08/30/2023 12:35 PM ESTBody Mass Index19.37 08/30/2023 12:35 PM EST Plan of Treatment Health MaintenanceDue DateLast DoneCommentsDepression Cxquvk1405/23/2015HIV screen 2018Chlamydia/GC nommcg3605/23/2019Hepatitis C fjsrhb091Pap smear 2024Flu vaccine (#1)1COVID-19 Vaccine (1 - season)2025DTaP/Tdap/Td vaccine (7 - Td or Tdap)/, 04/23/2009, 02/24/2007, Additional history existsHepatitis B vaccineCompleted 08/24/2006, 05/11/2004, 04/09/2004, Additional history existsHib vaccine Nckqbnvzz90/20/2007, 08/24/2006, 05/11/2004, Additional history exists Pneumococcal 0-49 years VaccineAged Out02/24/2007, 08/24/2006, 05/11/2004, Additional history existsNo longer eligible based on patient's age to complete this topicHepatitis A kozpysxIbhfwgbva31/16/2009, 02/24/2007 Measles,Mumps,Rubella (MMR) mxaqngdEzgrlldmryru13/16/2009, 08/24/2006Polio tknxrsoYqwowjzpk23/16/2009, 08/24/2006, 05/11/2004, Additional history exists Varicella fjxhsmpFthldqxnv38/16/2009, 08/24/2006HPV ocyixwuMnppkcaqh07/15/2017, 06/22/2016, 03/25/2016Meningococcal (ACWY) kslwflnFgmubrcbv62/27/2021, 03/25/2016Meningococcal B btqqzgcGqnbnvyzg22/16/2021, 05/04/2021 Insurance * Guarantor: Julian OCASIO TypeRelation to PatientDate of BirthPhone Billing AddressPersonal/FamilyMother [address] [place] [phone] Advance Directives * Full Code (Latest Code Status on File) Date ActivatedDate InactivatedComments08/30/2023 12:38 PM08/31/2023 7:34 PM
--- OUTSIDE RECORDS SUMMARY | 2025-06-20 13:58 | XMS_ITS | Encounter Summary ---
Author Organization [facility] Address [address] [place] [address] Care Team Providers Care Loan Funder Name Role Phone Jose E Burns MD Primary Care Provider [phone] Encounter Details DateTypeDepartmentCare Team (Latest Contact Info)Oahhumbvihq12/13/2025bstract [facility] [address] [place] [address] Keyla Rodriguez MA Social History Tobacco UseTypesPacks/DayYears UsedDateSmoking Tobacco: Never AssessedPHQ-2 AnswerDate RecordedPatient Health Questionnaire-2 Zdzoe77808/10/2024 Estimated Date of NxazaqwbVntyzcigXif82/03/2025Based on Ultrasound, FHR-158Sex and Gender InformationValueDate RecordedSex Assigned at BirthNot on fileLegal CvdKuhpdq96/15/2023 6:34 PM EDTGender IdentityNot on fileSexual OrientationNot on filedocumented as of this encounter Plan of Treatment DateTypeDepartmentCare Team (Latest Contact Info)Hbxagpajdgm48/19/2025 3:10 PM ESTRoutine [facility] [address] [place] [address] Gogo Pang PA [address] [facility] [address] [place], [facility] 07/17/2025 3:40 PM ESTPostpartum Visit [facility] [address] [place] [address] Wolfgang Hoffman DO [address] [facility] [place] [address] documented as of this encounter Visit Diagnoses Not on filedocumented in this encounter Care Teams Team MemberRelationshipSpecialtyStart DateEnd Date Jose E Burns MD [address] [facility] [place] [address] PCP - GeneralFamily Medicine02/16/23documented as of this encounter
--- OUTSIDE RECORDS SUMMARY | 2025-06-20 13:59 | XMS_ITS | Clinical Summary ---
Author Organization [facility] Address [address] [place] [address] Care Team Providers Care Cane Loader Name Role Phone Jose E Burns MD Primary Care Provider [phone] Allergies No known active allergies Medications MedicationSigDispense [...] 508/506Active Active Problems ProblemNoted DateDiagnosed DateThird trimester ([facility])12/27/2022 Psychogenic nonepileptic dckowwm7711/29/20202007Uenkxxicc94/23/2021eterioration in school sousmmiizoo06/16/2015Nocturnal /07/2013DHD (attention deficit hyperactivity disorder)01/11/2012Estimated Date of DeliveryCommentsYes 5Based on Ultrasound, FHR-158 Encounters DateTypeDepartmentCare YwvtOcgscqlhqfc06/13/2025bstract [facility] [address] [place] [address] [place] [address] Keyla Rodriguez MA 06/19/2025 3:30 PM ESTRoutine [facility] [address] [facility] [place] [address] Wolfgang Hoffman, Third trimester ([facility]); 37 weeks gestation of ([facility])5Bamboo flowsheet [facility] [address] [facility] [facility] [place] [address] Wolfgang Hoffman, 06/10/2025 3:50 PM ESTRoutine [facility] [address] [facility] [facility] [place] [address] Gogo Pang PA Third trimester ([facility]); 35 weeks gestation of ([facility]); Psychogenic nonepileptic harsmmn6206/10/2025linisync Result Encounter [facility] External Department Unsolicited Gogo Pang PA 06/10/2025Patient Outreach [facility] [address] [facility] [phone] Gogo Montiel LPN 05/27/2025 3:50 PM EDTRoutine [facility] [address] [facility] [facility] [place] [address] Wolfgang Hoffman, size inconsistent with dates ([facility]) (Primary Dx); 33 weeks gestation of ([facility]); Third trimester ([facility]); Psychogenic nonepileptic uihbsxg6405/27/2025amboo flowsheet [facility] [address] [facility] [facility] [place] [address] Wolfgang Hoffman, 05/20/2025bstract [facility] [address] [facility] [facility] [place] [address] Wolfgang Hoffman, 05/20/2025Telephone [facility] [address] [facility] [facility] [place] [phone] Ela Calvillo NP 05/13/2025 3:50 PM EDTRoutine [facility] [place] [address] Ela Calvillo, [place] 31 weeks gestation of ([facility]); Third trimester ([facility])05/13/2025Patient Outreach [facility] [address] [address] Gogo Montiel BLOCK BREAKER OPERATOR 05/10/2025Patient Outreach [facility] [address] [place] [address] Gogo Montiel BLOCK BREAKER OPERATOR 05/03/2025Telephone [facility] [address] [place] [address] [place] [address] Ela Calvillo NP 04/30/2025linisync Result Encounter NOMS External Department Unsolicited Wolfgang Hoffman, 04/29/2025 3:20 PM EDTRoutine [facility] [place] [address] Wolfgang Hoffman, Third trimester ([facility]); 29 weeks gestation of ([facility]); Psychogenic nonepileptic seizure ; Diabetes mellitus mgafztrvg48/22/2025amboo flowsheet [facility] [address] [place] [address] [place] [address] Wolfgang Hoffman, 04/22/20256678Vzeoje67/10/2025 3:20 PM EDTRoutine [facility] [place] [phone] Ela Calvillo, [place] Third trimester ([facility]); 28 weeks gestation of ([facility])5Bamboo flowsheet [facility] [place] [address] [place] [address] Ela Calvillo NP 04/15/2025Patient Outreach [facility] [address] [place] [address] Gogo Montiel, BLOCK BREAKER OPERATOR 04/03/2025 3:40 PM EDTRoutine NOMS [address] [place] [address] Wolfgang Hoffman DO Anxiety, generalized (Primary Dx); Second trimester ([facility]); 26 weeks gestation of ([facility]); History of psychogenic nonepileptic wbfkfhx9004/03/2025amboo flowsheet [address] [place] [address] Wolfgang Hoffman DO 03/22/2025Telephone [address] [place] [address] Marlon Mildred, [facility] 03/20/2025 3:40 PM EDTRoutine [facility] [address] [place] [address] Gogo Pang PA Second trimester ([facility]); 24 weeks gestation of ([facility]); Diabetes mellitus screening; Yeast infection; BV (bacterial vaginosis); Urinary tract infection without hematuria, site dcqyjghemmc19/13/2025amboo flowsheet [address] [place] [address] Gogo Pang PA from Last 3 Months Social History Tobacco UseTypesPacks/DayYears UsedDateSmoking Tobacco: Never AssessedPHQ-2 AnswerDate RecordedPatient Health Questionnaire-2 Dhljm29008/10/2024 Estimated Date of OyewwuyuCpfscdacLuo91/03/2025ased on Ultrasound, FHR-158Sex and Gender InformationValueDate RecordedSex Assigned at BirthNot on fileLegal OxzEtkivp69/15/2023 6:34 PM EDTGender IdentityNot on fileSexual OrientationNot on file Last Filed Vital Signs Vital SignReadingTime TakenCommentsBlood Reklhpmf509/7606/19/2025 3:46 PM EST Pulse--Temperature--Respiratory Rate--Oxygen Saturation--Inhaled Oxygen Concentration--Drzkru93.9 kg (169 lb 8 oz)06/19/2025 3:46 PM UWVWgkbfo509.6 cm (5' 6 )12/21/2022 12:00 PM EDTBody Mass Index27.36012/21/2022 12:00 PM EDT Plan of Treatment DateTypeDepartmentCare Team (Latest Contact Info)Gxhldoyffut14/19/2025 3:10 PM ESTRoutine NOMStacey [facility] [address] [facility] [facility] [place] [phone] Gogo Pang PA [address] [facility] [address] [place], [place] [phone] 07/17/2025 3:40 PM ESTPostpartum Visit PIYUSH [facility] [address] [facility] [facility] [place] [address] Wolfgang Hoffman DO [address] [facility] [address] [place], [place] [phone] Health MaintenanceDue DateLast DoneCommentsPneumococcal Vaccine: Pediatrics (0 to 5 Years) and At-Risk Patients (6 to 64 Years) (1 of 2 - PCV)2COVID- 19 Vaccine ( - season)2025Influenza Vaccine (#1)2025 06/23/2021, 06/22/2016, 07/29/2011 Procedures Procedure NamePriorityDate/TimeAssociated DiagnosisCommentsPOCT URINALYSIS FUVWVKILDpahcud77/12/2025 3:55 PM EST 37 weeks gestation of ([facility]) POCT URINALYSIS QQTYZFAKTcezbcy96/03/2025 4:12 PM EST Third trimester ([facility]) STREP GP B CULTURE+VPYTLyomgsp44/03/2025 4:02 PM EST POCT URINALYSIS CKWHAKWANdmjwmp41/20/2025 4:20 PM EDT 33 weeks gestation of ([facility]) Third trimester ([facility]) Psychogenic nonepileptic seizure POCT URINALYSIS MTCBESZVPmzrkqs38/06/2025 3:59 PM EDT 31 weeks gestation of ([facility]) MLR HEMOGLOBIN B2LAibriyr87/23/2025 2:43 PM EDT ALL CBC WITH AUTO KYGIWedcwrw44/23/2025 2:43 PM EDT POCT URINALYSIS LUVPNADIPypgmsa55/22/2025 3:42 PM EDT Third trimester ([facility]) POCT URINALYSIS DOKGOBEIIukcjum29/10/2025 3:32 PM EDT Third trimester ([facility]) RECURRENT VAGINITIS (HTRX)Zifyknz3403/20/2025 4:45 PM EDT URINARY TRACT INFECTION (HTRX)Ebyfhuj8303/20/2025 4:28 PM EDT POCT URINALYSIS LUZCKBSWPkpnpbc53/13/2025 4:13 PM EDT Second trimester ([facility]) from Last 3 Months Results * (ABNORMAL) POCT urinalysis dipstick manually resulted (06/19/2025 3:55 PM EST) Only the most recent of7 resultswithin the time period is included. ComponentValueRef RangeTest MethodAnalysis TimePerformed AtPathologist Signature Color, UAYellowClarity, UAClearGlucose, UANegativeNegative - 2000(110) ++++ mg/dLBilirubin, UANegativeNegative - 4(70) +++ mg/dLKetones, UANegativeNegative - 160(16) ++++ mg/dLSpec Grav, UA1.0251 - 1.03Blood, UANegativeNegative - 50 Blayne/mcLpH, UA6.05 - 9Protein, UANegativeNegative - 2000(20) ++++ mg/dL Urobilinogen, UA0.20.2 - 12 mg/dLLeukocytes, UAPositiveNegative - 500+++ Jo/mcL Comment:3+Nitrite, UANegativeNegative - PositiveSpecimen (Source)Anatomical Location / LateralityCollection Method / VolumeCollection TimeReceived TimeUrine 06/19/2025 3:55 PM EST Narrative Authorizing ProviderResult TypeResult StatusCorey Yasmin DOPOINT OF CARE TEST ENTER/EDIT ORDERABLESFinal Result * STREP GP B CULTURE+RFLX (06/10/2025 4:02 [...] is noted.TBHSTREP GP B CULTURE+RFLX Performed at: - [facility] CULT[facility]+[id number] [place], [place] [id number] GP B CULTURE+RFLXLab Director: Raimundo Cardenas PhD, Phone: [phone] (Source)Anatomical Location / Laterality Collection Method / VolumeCollection TimeReceived Time06/10/2025 4:02 PM EST 06/10/2025 8:50 PM EST Narrative CLINISYNC - 06/15/2025 6:09 PM EST Authorizing ProviderResult TypeResult StatusSouthco[facility] BLOOD ORDERABLES Final ResultPerforming OrganizationAddressCity/State/ZIP CodePhone Number [facility] * (ABNORMAL) MLR HEMOGLOBIN A1C (04/30/2025 2:43 PM EDT)ComponentValueRef Range Test MethodAnalysis TimePerformed AtPathologist SignatureGLYCOHEMOGLOBIN A1C 4.3(L)4.5 - 6.2 %TBHComment: ADA RECOMMENDED LIMIT 4.0 - 6.0 ADA THERAPEUTIC TARGET < 7.0 ACTION SUGGESTED > 7.0 ESTIMATED AVERAGE ZFZIHKD99ig/dLTBHSpecimen (Source)Anatomical Location / LateralityCollection Method / VolumeCollection TimeReceived Time04/30/2025 2:43 PM EDT04/30/2025 2:44 PM EDT Narrative CLINISYNC - 04/30/2025 3:46 PM EDT Authorizing ProviderResult TypeResult StatusEla Calvillo NPCLINISYNCFinal ResultPerforming OrganizationAddressCity/State/ZIP CodePhone Number [facility] * (ABNORMAL) ALL CBC WITH AUTO DIFF (04/30/2025 2:43 PM EDT)ComponentValueRef RangeTest MethodAnalysis TimePerformed AtPathologist SignatureTBH WBC9.74.0 - 11.0 10 3/uLTBHTBH RBC3.94(L)4.20 - 5.40 10 6/uLTBHTBH HGB12.612.0 - 16.0 g/dL TBHTBH HCT34.5(L)36.0 - 48.0 %TBHTBH MCV87.681.0 - 99.0 fLTBHTBH MCH32.026.7 - 34.0 pgTBHTBH MCHC36.5(H)29.9 - 35.2 g/dLTBHTBH RDW11.911.0 - 15.0 %TBHTBH PLT 403596 - 450 10 3/uLTBHTBH MPV11.39.5 - 13.5 [...] Yasmin DOCLINISYNCFinal Result Performing OrganizationAddressCity/State/ZIP CodePhone Number CLINISYNC TBH * (ABNORMAL) RECURRENT VAGINITIS (HTRX) (03/20/2025 4:45 PM EDT)ComponentValue Ref RangeTest MethodAnalysis TimePerformed AtPathologist SignatureATOPOBIUM JELCIHV168.961 - 24.689 ppm03/22/2025 7:27 AM EDTHealthTrackRx at [facility] ATOPOBIUM VAGINAENot Pqurcbvt29.961 - 24.689 ppm03/22/2025 7:27 AM EDT [facility] at LabPortBVAB 2,3 (BACTERIAL VAGINOSIS ASSOCIATED BACTERIA 2, 3); MOBILUNCUS SPP25.723(A)19.961 - 24.689 ppm03/22/2025 7:27 AM EDT [facility] LabPortBVAB 2,3 (BACTERIAL VAGINOSIS ASSOCIATED BACTERIA 2, 3); MOBILUNCUS SPPDetected(A)19.961 - 24.689 ppm03/22/2025 7:27 AM EDT [facility] at LabPortCANDIDA ALBICANS, PARAPSILOSIS, JVNCTCVWIZ204.000 - 30.347 ppm03/22/2025 7:27 AM EDTHealthTrackRx at LabPortCANDIDA ALBICANS, PARAPSILOSIS, TROPICALISNot Vpnwwmhu43.000 - 30.347 ppm03/22/2025 7:27 AM EDT [facility] LabPortCANDIDA UJIGVOJG736.000 - 31.618 ppm03/22/2025 7:27 AM EDTHealthTrackRx at LabPortCANDIDA GLABRATANot Npbjfjdd89.000 - 31.618 ppm 03/22/2025 7:27 AM EDTHealthTrackRx at LabPortCANDIDA NBBNEI434.000 - 30.873 ppm03/22/2025 7:27 AM EDTHealthTrackRx at LabPortCANDIDA KRUSEINot Detected 23.000 - 30.873 ppm03/22/2025 7:27 AM EDTHealthTrackRx at LabPortCHLAMYDIA NPBWTUDVJBM440.000 - 31.586 ppm03/22/2025 7:27 AM EDTHealthTrackRx at [facility] CHLAMYDIA TRACHOMATISNot Nvrthyup26.000 - 31.586 ppm03/22/2025 7:27 AM EDT [facility] HospitalGARDNERELLA LGADQZXUY18.041(A)19.961 - 24.689 ppm 03/22/2025 7:27 AM EDTHealthTrackRx at [facility] HospitalGARDNERELLA VAGINALISDetected(A) 19.961 - 24.689 ppm03/22/2025 7:27 AM EDTHealthTrackRx at [facility] HospitalMEGASPHAERA (TYPES 1, 2)019.961 - 24.689 ppm03/22/2025 7:27 AM EDTHealthTrackRx at [facility] MEGASPHAERA (TYPES 1, 2)Not Htpondrv45.961 - 24.689 ppm03/22/2025 7:27 AM EDT [facility] HospitalNEISSERIA YBBKXRTAGXK494.000 - 32.587 ppm03/22/2025 7:27 AM EDTHealthTrackRx at [facility] HospitalNEISSERIA GONORRHOEAENot Cbnivned95.000 - 32.587 ppm03/22/2025 7:27 AM EDTHealthTrackRx at [facility]'s HospitalTRICHOMONAS VAGINALIS0 23.000 - 31.995 ppm03/22/2025 7:27 AM EDTHealthTrackRx at [facility] HospitalTRICHOMONAS VAGINALISNot Zeilneec30.000 - 31.995 ppm03/22/2025 7:27 AM EDTHealthTrackRx at [facility]'s HospitalMYCOPLASMA UKZIENUMFF568.961 - 24.689 ppm03/22/2025 7:27 AM EDT [facility] HospitalMYCOPLASMA GENITALIUMNot Fhzxnlva77.961 - 24.689 ppm 03/22/2025 7:27 AM EDTHealthTrackRx at LabPortERMB, C; MEFA24.079(A)23.000 - 27.500 ppm03/22/2025 7:27 AM EDTHealthTrackRx at LabPortER, C; MEFADetected (A)23.000 - 27.500 ppm03/22/2025 7:27 AM EDTHealthTrackRx at LabSt[facility] HospitalTET B, TET M23.681(A)23.000 - 27.500 ppm03/22/2025 7:27 AM EDTHealthTrackRx at LabSt. [facility] HospitalTET B, TET MDetected(A)23.000 - 27.500 ppm03/22/2025 7:27 AM EDTHealthTrackRx at LabSt. [facility] Frankfort HospitalSpecimen (Source)Anatomical Location / LateralityCollection Method / VolumeCollection TimeReceived BblgNcstmq25/13/2025 4:45 PM EDT03/22/2025 2:18 AM EDT Narrative Authorizing ProviderResult TypeResult StatusKrernesto Calvillo NPLAB BLOOD ORDERABLESFinal ResultPerforming OrganizationAddressCity/State/ZIP CodePhone Number [facility] [address] [address] * URINARY TRACT INFECTION (HTRX) (03/20/2025 4:28 PM EDT)ComponentValueRef Range Test MethodAnalysis TimePerformed AtPathologist SignatureACINETOBACTER FOZFGEFZ513.961 - 24.689 ppm03/22/2025 9:02 AM EDTHealthTrackRx at [facility] ACINETOBACTER BAUMANIINot Mmeltpza44.961 - 24.689 ppm03/22/2025 9:02 AM EDT [facility] at LabPortCITROBACTER OWKBZSJT843.000 - 32.015 ppm03/22/2025 9:02 AM EDTHealthTrackRx at LabPortCITROBACTER FREUNDIINot Rsdiysfr52.000 - 32.015 ppm03/22/2025 9:02 AM EDTHealthTrackRx at LabPortENTEROBACTER AEROGENES, GICNJKX329.000 - 32.290 ppm03/22/2025 9:02 AM EDTHealthTrackRx at LabPortENTEROBACTER AEROGENES, CLOACAENot Tjzlvhsz73.000 - 32.290 ppm 03/22/2025 9:02 AM EDTHealthTrackRx at LabPortENTEROCOCCUS FAECALIS, FAECIUM0 26.000 - 33.043 ppm03/22/2025 9:02 AM EDTHealthTrackRx at LabPortENTEROCOCCUS FAECALIS, FAECIUMNot Xrrwiqrn09.000 - 33.043 ppm03/22/2025 9:02 AM EDT [facility] at LabPortESCHERICHIA WQLO096.000 - 28.500 ppm03/22/2025 9:02 AM EDTHealthTrackRx at LabPortESCHERICHIA COLINot Uphtdivf31.000 - 28.500 ppm 03/22/2025 9:02 AM EDTHealthTrackRx at LabPortKLEBSIELLA PNEUMONIAE, OXYTOCA0 23.000 - 31.865 ppm03/22/2025 9:02 AM EDTHealthTrackRx at LabPortKLEBSIELLA PNEUMONIAE, OXYTOCANot Ojwjqlhu66.000 - 31.865 ppm03/22/2025 9:02 AM EDT [facility] at LabPortMORGANELLA FWOBLYPC760.961 - 24.689 ppm03/22/2025 9:02 AM EDTHealthTrackRx at [facility] HospitalMORGANELLA MORGANIINot Hffvheel04.961 - 24.689 ppm03/22/2025 9:02 AM EDTHealthTrackRx at LabPortPROTEUS MIRABILIS, VULGARIS0 23.000 - 28.500 ppm03/22/2025 9:02 AM EDTHealthTrackRx at LabPortPROTEUS MIRABILIS, VULGARISNot Jcvuisjc86.000 - 28.500 ppm03/22/2025 9:02 AM EDT [facility] HospitalPortPSEUDOMONAS RAGBWLEJBY583.000 - 31.801 ppm03/22/2025 9:02 AM EDTHealthTrackRx at LabSt. [facility] HospitalPSEUDOMONAS AERUGINOSANot Bnewnwzs53.000 - 31.801 ppm03/22/2025 9:02 AM EDTHealthTrackRx at [facility] HospitalPortSTAPHYLOCOCCUS AUREUS0 26.000 - 31.595 ppm03/22/2025 9:02 AM EDTHealthTrackRx at [facility] STAPHYLOCOCCUS AUREUSNot Jfbctwaf18.000 - 31.595 ppm03/22/2025 9:02 AM EDT [facility] HospitalSTREPTOCOCCUS AGALACTIAE (GROUP B STREP)026.000 - 32.435 ppm03/22/2025 9:02 AM EDTHealthTrackRx at LabPortSTREPTOCOCCUS AGALACTIAE (GROUP B STREP)Not Qapmsmdh05.000 - 32.435 ppm03/22/2025 9:02 AM EDTHealthTrackRx at LabPortCANDIDA ALBICANS, PARAPSILOSIS, SSHEZNYYIP349.000 - 30.347 ppm03/22/2025 9:02 AM EDTHealthTrackRx at LabPortCANDIDA ALBICANS, PARAPSILOSIS, TROPICALISNot Vwugoyvp79.000 - 30.347 ppm03/22/2025 9:02 AM EDT [facility] LabPortCANDIDA FATZMQGX730.000 - 31.618 ppm03/22/2025 9:02 AM EDTHealthTrackRx at LabPortCANDIDA GLABRATANot Zhwnhoes21.000 - 31.618 ppm 03/22/2025 9:02 AM EDTHealthTrackRx at LabPortCANDIDA JCFNQK357.000 - 30.873 ppm03/22/2025 9:02 AM EDTHealthTrackRx at LabPortCANDIDA KRUSEINot Detected 23.000 - 30.873 ppm03/22/2025 9:02 AM EDTHealthTrackRx at LabPortSERRATIA CBREGRALYA480.000 - 31.581 ppm03/22/2025 9:02 AM EDTHealthTrackRx at [facility] SERRATIA MARCESCENSNot Yghixdnj88.000 - 31.581 ppm03/22/2025 9:02 AM EDT [facility] at LabPortSTREPTOCOCCUS PYOGENES (GROUP A STREP)019.961 - 24.689 ppm03/22/2025 9:02 AM EDTHealthTrackRx at LabPortSTREPTOCOCCUS PYOGENES (GROUP A STREP)Not Fzwdaxvd89.961 - 24.689 ppm03/22/2025 9:02 AM EDTHealthTrackRx at LabPortSTAPHYLOCOCCUS EPIDERMIDIS, HAEMOLYTICUS, LUGDUNENSIS, SAPROPHYTICUS (PTEHZ098.961 - 24.689 ppm03/22/2025 9:02 AM EDTHealthTrackRx at [facility] STAPHYLOCOCCUS EPIDERMIDIS, HAEMOLYTICUS, LUGDUNENSIS, SAPROPHYTICUS (URINANot Npycpeti24.961 - 24.689 ppm03/22/2025 9:02 AM EDTHealthTrackRx at [facility]St[facility] STAPHYLOCOCCUS EPIDERMIDIS, HAEMOLYTICUS, LUGDUNENSIS, SAPROPHYTICUS (URINA0 19.961 - 24.689 ppm03/22/2025 9:02 AM EDTHealthTrackRx at [facility] STAPHYLOCOCCUS EPIDERMIDIS, HAEMOLYTICUS, LUGDUNENSIS, SAPROPHYTICUS (URINANot Evpjtwob94.961 - 24.689 ppm03/22/2025 9:02 AM EDTHealthTrackRx at [facility] Specimen (Source)Anatomical Location / LateralityCollection Method / Volume Collection TimeReceived ZwspEswwu36/13/2025 4:28 PM EDT03/22/2025 2:18 AM EDT Narrative Authorizing ProviderResult TypeResult StatusEla Calvillo NPLAB BLOOD ORDERABLESFinal ResultPerforming OrganizationAddressCity/State/ZIP CodePhone Number [facility] [address] [place] [address] from Last 3 Months Insurance Care Teams Team MemberRelationshipSpecialtyStart Date Jose E Burns MD [address] [place] [address] PCP - GeneralFamily Medicine02/16/23
[2025-06-20 14:26] LABS: Glucose Urine UA NEGATIVE (NEGATIVE)
[2025-06-20 14:36] VITALS: BP 126/73; PULSE 83
[2025-06-20 14:36] LABS: Cast Seen? NONE SEEN #/LPF (NONE SEEN); Crystals Seen? None Seen #/HPF (None Seen); Urine Culture Indicated YES-FRMC
--- OUTSIDE RECORDS SUMMARY | 2025-06-20 17:42 | XMS_ITS | Clinical Summary ---
Author Organization [facility] tem Address [facility] [address] [place] [address] Care Team Providers Care Cabinetmaker Supervisor Name Role Phone Jose E Burns MD Primary Care Provider [phone] Allergies No known active allergies Medications MedicationSigDispense [...] standard drink = 0.6 oz pure alcohol)ChildcareAnswerDate HwjgsiojHafbsbbowInrkrvk09/12/2019EmploymentAnswer Date WeclgazhNdwasyjxccJfdwjdn11/12/2019Hunger ScreeningAnswerDate Recorded Within the past 12 months we worried whether our food would run out before we got money to buy more.Never True10/18/2023Food Insecurity - InabilityNot on file 10/18/2023CommentsNoSex and Gender InformationValueDate RecordedSex Assigned at BirthNot on fileLegal LomSkrbxy83/06/2015 12:01 PM EDTGender IdentityNot on fileSexual OrientationNot on file Last Filed Vital Signs Vital SignReadingTime TakenCommentsBlood Acmwnisb390/6203 10:03 AM EDT Uemru213510/18/2023 10:03 AM MMUFvdyuhnxufi39.4 ??C (97.5 ??F)10/03/2023 1:45 PM ESTRespiratory Cnaf487210/03/2023 2:29 PM ESTOxygen Aelkfszowr118%10/03/2023 2:29 PM ESTInhaled Oxygen Concentration--Ikmvjn64.6 kg (133 lb 9.6 oz)10/18/2023 10:03 AM DZEFnnrux075.3 cm (5' 9 )10/18/2023 10:03 AM EDTBody Mass Index19.73 10/18/2023 10:03 AM EDT Plan of Treatment Health MaintenanceDue DateLast DoneCommentsDepression Xpgnhicpl90/16/2015Pap Smear2024dult BMI Vanhzyper31Tobacco Screening Influenza Rcijlhv48/, 06/22/2016, 07/29/2011DTaP,Tdap and Td Vaccines (7 - Td or Tdap)6003/25/2016, 04/23/2009, 02/24/2007, Additional history exists Medical Devices Not on file Insurance Care Teams Team MemberRelationshipSpecialtyStart DateEnd Date Jose E Burns MD PCP - Generalmily Medicine03/25/21
--- OUTSIDE RECORDS SUMMARY | 2025-06-20 17:42 | XMS_ITS | Clinical Summary ---
Author Organization [facility] Address [address], [address] [place] [address] Care Team Providers Care Wood Mechanist Name Role Phone Unavailable Primary Care Provider [...] for CrampingActive Active Problems ProblemNoted DateDiagnosed DatePsychiatric gamtrdo9008/30/2023Seizure-like nvwepnnq25/23/2024 Social History Tobacco UseTypesPacks/DayYears UsedDateSmoking Tobacco: NeverSmokeless Tobacco: Never Tobacco Cessation:Counseling Given: Not Answered Alcohol UseStandard Drinks/WeekCommentsNever0 (1 standard drink = 0.6 oz pure alcohol)[facility] UtilitiesAnswerDate RecordedIn the past 12 months has the [employer], gas, oil, or water [employer] threatened to shut off services in your [...] medical appointments or from getting medications? Patient valdqtgd26/23/2024In the past 12 months, has lack of transportation kept you from meetings, work, or from getting things needed for daily living?Patient mfcgqjgi31/23/2024Housing Stability Vital SignAnswerDate RecordedIn the last 12 months, was there a time when you were not able to pay the mortgage or rent on time?No08/30/2023In the last 12 months, how many places have you lived?1 08/30/2023In the last 12 months, was there a time when you did not have a steady place to sleep or slept in ashelter (including now)?No08/30/2023Interpersonal Safety ([facility] HRSN)AnswerDate RecordedHow often does anyone, including family and friends, physically hurt you?Patient /23/2024How often does anyone, including family and friends, [...] you with harm?Not on file08/30/2023ead-Only, Retired: Physical UatldRysooe56/23/2024ead-Only, Retired: Verbal AbuseDenies 08/30/2023ead-Only, Retired: Emotional odidjRzovfn04/23/2024ead-Only, Retired: Financial QktltNpndff37/23/2024ead-Only, Retired: Sexual cdofiMzckbr78/23/2024 CommentsUnknownSex and Gender InformationValueDate RecordedSex Assigned at BirthNot on fileLegal UonUqmrny16/16/2019 9:09 AM EDTGender IdentityNot on fileSexual OrientationNot on file Last Filed Vital Signs Vital SignReadingTime TakenCommentsBlood Vkoypyjf009/7408/31/2023 3:44 PM EST Rrazw295508/31/2023 3:44 PM GARQetqoqsqyex42.8 ??C (98.3 ??F)08/31/2023 3:44 PM ESTRespiratory Wrqy349208/31/2023 3:44 PM ESTOxygen Ewtrvfzadx39%08/31/2023 3:44 PM ESTInhaled Oxygen Concentration--Cxggix24.5 kg (131 lb 2.8 oz)08/30/2023 12:35 PM GKWXcared137.3 cm (5' 9 )08/30/2023 12:35 PM ESTBody Mass Index19.37 08/30/2023 12:35 PM EST Plan of Treatment Health MaintenanceDue DateLast DoneCommentsDepression Sdcobp1205/23/2015HIV screen 2018Chlamydia/GC unjzax9505/23/2019Hepatitis C tedjzt291Pap smear 2024Flu vaccine (#1)1COVID-19 Vaccine (1 - season)2025DTaP/Tdap/Td vaccine (7 - Td or Tdap)/, 04/23/2009, 02/24/2007, Additional history existsHepatitis B vaccineCompleted 08/24/2006, 05/11/2004, 04/09/2004, Additional history existsHib vaccine Oalsawmih29/20/2007, 08/24/2006, 05/11/2004, Additional history exists Pneumococcal 0-49 years VaccineAged Out02/24/2007, 08/24/2006, 05/11/2004, Additional history existsNo longer eligible based on patient's age to complete this topicHepatitis A dsvnpcoVdtnncizx37/16/2009, 02/24/2007 Measles,Mumps,Rubella (MMR) walnmenZbpcnkrmmvkd78/16/2009, 08/24/2006Polio sucimlbDdijodrll34/16/2009, 08/24/2006, 05/11/2004, Additional history exists Varicella fjsanydXbmgnigbz93/16/2009, 08/24/2006HPV uvgkwsbDxseoqzgq06/15/2017, 06/22/2016, 03/25/2016Meningococcal (ACWY) bwvvvzhTqfqfcgza46/27/2021, 03/25/2016Meningococcal B vuyziulTgcdhzrrf62/16/2021, 05/04/2021 Insurance * Guarantor: Julian OCASIO TypeRelation to PatientDate of BirthPhone Billing AddressPersonal/FamilyMother [address] [place] [phone] Advance Directives * Full Code (Latest Code Status on File) Date ActivatedDate InactivatedComments08/30/2023 12:38 PM08/31/2023 7:34 PM
--- OUTSIDE RECORDS SUMMARY | 2025-06-20 17:42 | XMS_ITS | Clinical Summary ---
Author Organization [facility] [place] [address] Care Team Providers Care Bracer Name Role Phone Jose E Burns MD Primary Care Provider [phone] Allergies No known active allergies Medications MedicationSigDispense QuantityRefillsLast FilledStart DateEnd DateStatus imipramine (TOFRANIL) 25 MG tablet Take 25 mg by mouth nightly at bedtime. Indications: BedwettingActive desmopressin (DDAVP) 0.2 MG tablet 2 qam and 1 prnActive amphetamine-dextroamphetamine (ADDERALL XR, 15MG,) 15 MG capsule Take 1 Cap by mouth daily. 30 Cap ctive Additional Information Patient not taking.Reported on 11/28/2020 phenytoin (DILANTIN) 100 MG ER capsule TAKE ONE CAPSULE BY MOUTH 3 TIMES DAILY11/01/2020ctive levETIRAcetam (KEPPRA) 500 MG tablet TAKE ONE TABLET BY MOUTH TWICE A DAY11/17/2020ctive FLUoxetine (PROZAC) 10 MG capsule TAKE 1 CAPSULE BY ORAL ROUTE PER DAILY TAKE 30 MG (20 MG + 10 MG) DAILY 11/06/2020ctive Active Problems ProblemNoted DateDiagnosed DatePsychogenic nonepileptic lnjslvo7211/29/2020 Yfrwywopf75/23/2021eterioration in school szpjqgmosnz06/16/2015Nocturnal /07/2013DHD (attention deficit hyperactivity disorder)01/11/2012 Resolved Problems ProblemNoted DateDiagnosed DateResolved DateSeizure-like /23/2021 11/29/2020Vision lossouble cxymtg42 Social History Tobacco UseTypesPacks/DayYears UsedDateSmoking Tobacco: Passive Smoke Exposure - Never SmokerAlcohol UseStandard Drinks/WeekCommentsNever0 (1 standard drink = 0.6 oz pure alcohol)CommentsNoSex and Gender InformationValueDate RecordedSex Assigned at BirthNot on fileLegal UeaKkcpug00/20/2012 5:51 PM EST Gender IdentityNot on fileSexual OrientationNot on file Last Filed Vital Signs Vital SignReadingTime TakenCommentsBlood Ymbmnlxw419/7404/ 9:29 AM EDT Gdzub2025 9:29 AM UKWPbytefmvlvh12.4 ??C (97.5 ??F)11/29/2020 9:29 AM EDTRespiratory Czbe8200 9:29 AM EDTOxygen Vlljioeclj42%11/29/2020 9:29 AM EDTInhaled Oxygen Concentration--Yajtij48.4 kg (164 lb 0.4 oz)11/28/2020 6:45 AM RTRWacnqz365.5 cm (5' 7.91 )11/28/2020 6:45 AM EDTBody Mass Yoijk3414/23/2021 6:45 AM EDT Plan of Treatment Health MaintenanceDue DateLast DoneCommentsMenB (1 of 2 - MenB 2-Dose Series Bexsero)2019COVID-19 ( season)2025FLU (#1)04/08/2025 06/22/2016, 07/29/2011Tetanus Diphtheria and Pertussis Vaccines (7 - Td or Tdap) 6003/25/2016, 04/23/2009, 02/24/2007, Additional history existsHepatitis GLawwsltrg35/17/2007, 05/11/2004, 04/09/2004, Additional history existsHIB Tcstjcxca00/20/2007, 08/24/2006, 05/11/2004, Additional history exists PneumococcalAged Out02/24/2007, 08/24/2006, 05/11/2004, Additional history existsNo longer eligible based on patient's age to complete this topicHepatitis BJsxqbbndf47/16/2009, 02/24/20070774VKKPtrnzomll29/16/2009, 08/24/2006PolioCompleted 04/23/2009, 08/24/2006, 05/11/2004, Additional history existsVaricellaCompleted 04/23/2009, 08/24/2006MenACWYAged Out03/25/2016No longer eligible based on patient's age to complete this shljoOIZNoxhhvapc53/15/2017, 06/22/2016, 03/25/2016NirsevimabAged OutNo longer eligible based on patient's age to complete this topicRotavirusAged OutNo longer eligible based on patient's age to complete this topic Insurance Care Teams Team MemberRelationshipSpecialtyStart DateEnd Date Jose E Burns MD [address] [place] [address] PCP - General08/28/10
--- OUTSIDE RECORDS SUMMARY | 2025-06-20 17:42 | XMS_ITS | Encounter Summary ---
Author Organization [facility] Address [address] [facility] [place] [address] Care Team Providers Care Supervisor Model Making Name Role Phone Jose E Burns MD Primary Care Provider [phone] Encounter Details DateTypeDepartmentCare Team (Latest Contact Info)Xlbeyulbfgx93/12/2025Bamboo flowsheet [facility] [address] [place] [address] Wolfgang Hoffman DO [address] [place] [address] Social History Tobacco UseTypesPacks/DayYears UsedDateSmoking Tobacco: Never AssessedPHQ-2 AnswerDate RecordedPatient Health Questionnaire-2 Ejuso61708/10/2024 Estimated Date of YoskewxhWsaygyplRjv37/03/2025Based on Ultrasound, FHR-158Sex and Gender InformationValueDate RecordedSex Assigned at BirthNot on fileLegal EpvRopdmi81/15/2023 6:34 PM EDTGender IdentityNot on fileSexual OrientationNot on filedocumented as of this encounter Plan of Treatment DateTypeDepartmentCare Team (Latest Contact Info)Dejkvsvxcsc04/19/2025 3:10 PM ESTRoutine [facility] [address] [place] [address] Gogo Pang PA [address] [place], [place] [id number] 07/17/2025 3:40 PM ESTPostpartum Visit [facility] [address] [facility] [place] [address] Wolfgang Hoffman DO [address] [place] [address] documented as of this encounter Visit Diagnoses Not on filedocumented in this encounter Care Teams Team MemberRelationshipSpecialtyStart DateEnd Date Jose E Burns MD [address] [facility] [place] [phone] PCP - GeneralFamily Medicine02/16/23documented as of this encounter
--- OUTSIDE RECORDS SUMMARY | 2025-06-20 17:42 | XMS_ITS | Encounter Summary ---
Author Organization [facility] Address [address] [place] [address] Care Team Providers Care Marine Transport Professionals Name Role Phone Jose E Burns MD Primary Care Provider [phone] Encounter Details DateTypeDepartmentCare Team (Latest Contact Info)Wozulcopzec18/13/2025bstract [facility] [address] [place] [address] Keyla Rodriguez MA Social History Tobacco UseTypesPacks/DayYears UsedDateSmoking Tobacco: Never AssessedPHQ-2 AnswerDate RecordedPatient Health Questionnaire-2 Kydci33308/10/2024 Estimated Date of EjvvhdcbCnrdwzgwVdi13/03/2025Based on Ultrasound, FHR-158Sex and Gender InformationValueDate RecordedSex Assigned at BirthNot on fileLegal TscKprthr96/15/2023 6:34 PM EDTGender IdentityNot on fileSexual OrientationNot on filedocumented as of this encounter Plan of Treatment DateTypeDepartmentCare Team (Latest Contact Info)Rabgpignrny60/19/2025 3:10 PM ESTRoutine [facility] [address] [place] [address] Gogo Pang PA [address] [place], [facility]11 07/17/2025 3:40 PM ESTPostpartum Visit [facility] [address] [place] [address] Wolfgang Hoffman DO [address] [place] [address] documented as of this encounter Visit Diagnoses Not on filedocumented in this encounter Care Teams Team MemberRelationshipSpecialtyStart DateEnd Date Jose E Burns MD [address] [place] [address] PCP - GeneralFamily Medicine02/16/23documented as of this encounter
--- OUTSIDE RECORDS SUMMARY | 2025-06-20 17:42 | XMS_ITS | Encounter Summary ---
Author Organization [facility] Address [address] [facility] [place] [address] Care Team Providers Care Locksmith Name Role Phone Jose E Burns MD Primary Care Provider [phone] Encounter Details DateTypeDepartmentCare Team (Latest Contact Info)Spnxdxryxkr81/03/2025Patient Outreach [facility] [address] [place] [phone] Gogo Montiel LPN [address], [place] [id number] Social History Tobacco UseTypesPacks/DayYears UsedDateSmoking Tobacco: Never AssessedPHQ-2 AnswerDate RecordedPatient Health Questionnaire-2 Kltcn15508/10/2024 Estimated Date of KmoowxvjQleefmzyQld90/03/2025Based on Ultrasound, FHR-158Sex and Gender InformationValueDate RecordedSex Assigned at BirthNot on fileLegal UuiFlbqsk81/15/2023 6:34 PM EDTGender IdentityNot on fileSexual OrientationNot on filedocumented as of this encounter Functional Status * Over the past 2 weeks, how often have you been bothered by any of the following problems?QuestionAnswerDate of AssessmentAuthorLittle interest or pleasure in doing thingsNot at all06/10/2025 11:36 AM Gogo Glass LPN Feeling down, depressed, or hopelessNot at all06/10/2025 11:36 AM Gogo Glass LPNPatient Health Questionnaire-2 Ffmtz33208/10/2024 11:36 AM Gogo Glass LPN documented as [...] Plan of Treatment DateTypeDepartmentCare Team (Latest Contact Info)Chrwbzpfdmo87/19/2025 3:10 PM ESTRoutine [facility] [address] [place] [phone] Gogo Pang PA [address] [place], [place] [id number] 07/17/2025 3:40 PM ESTPostpartum Visit [facility] [address] [place] [phone] Wolfgang Hoffman DO [address] [place], [place] [phone] documented as of this encounter Visit Diagnoses Not on filedocumented in this encounter Care Teams Team MemberRelationshipSpecialtyStart DateEnd Date Jose E Burns MD [address] [facility] [phone] PCP - GeneralFamily Medicine02/16/23documented as of this encounter
--- OUTSIDE RECORDS SUMMARY | 2025-06-20 17:42 | XMS_ITS | Encounter Summary ---
Author Organization [facility] Address [address] [facility] [place] [address] Care Team Providers Care Sand Mill Operator Core Sand Name Role Phone Jose E Burns MD Primary Care Provider [phone] Encounter Details DateTypeDepartmentCare Team (Latest Contact Info)Zdbyodpjqvv05/13/2025Clinisync Result Encounter [facility] External Department Unsolicited Wolfgang Hoffman DO [address] [facility] [address] [place], [facility] Social History Tobacco UseTypesPacks/DayYears UsedDateSmoking Tobacco: Never AssessedPHQ-2 AnswerDate RecordedPatient Health Questionnaire-2 Sxeia93608/10/2024 Estimated Date of LnzqbhxzCzbpaxcrCqf40/03/2025Based on Ultrasound, FHR-158Sex and Gender InformationValueDate RecordedSex Assigned at BirthNot on fileLegal VukAjvbtz49/15/2023 6:34 PM EDTGender IdentityNot on fileSexual OrientationNot on filedocumented as of this encounter Plan of Treatment DateTypeDepartmentCare Team (Latest Contact Info)Hjkzdtkeftz79/19/2025 3:10 PM ESTRoutine [facility] [address] [facility] [place] [address] Gogo Pang PA [address] [facility] [place] [address] 07/17/2025 3:40 PM ESTPostpartum Visit [facility] [address] [place] [address] Wolfgang Hoffman DO [address] [facility] [place] [address] documented as of this encounter Procedures Procedure NamePriorityDate/TimeAssociated DiagnosisCommentsTBH UA (CLEAN/CATCH) PLASTER APPLICATOR/MICRO IF IND.Dsotukl6106/20/2025 2:14 PM EST documented in this encounter Results * (ABNORMAL) TBH UA (CLEAN/CATCH) PLASTER APPLICATOR/MICRO IF IND. (06/20/2025 2:14 PM EST) ComponentValueRef RangeTest MethodAnalysis TimePerformed AtPathologist SignatureCOLOR URINELT. YELLOWYELLOWTBHCLARITY URINECLEARCLEARTBHSPECIFIC GRAVITY URINE1.0201.005 - 1.025TBHPH URINE6.05.0 - 9.0TBHPROTEIN URINENEGATIVE NEG/TRACE mg/dLTBHGLUCOSE URINE UANEGATIVENEGATIVE mg/dLTBHBILIRUBIN URINE NEGATIVENEGATIVETBHKETONES URINENEGATIVENEGATIVE mg/dLTBHBLOOD URINENEGATIVE NEGATIVETBHNITRITE URINENEGATIVENEGATIVETBHUROBILINOGEN URINE0.20.2 - 1.0 EU/dLTBHLEUKOCYTE ESTERASE URINELARGE(A)NEGATIVETBHURINE MICROSCOPIC INDICATED YESTBHSpecimen (Source)Anatomical Location / LateralityCollection Method / VolumeCollection TimeReceived Time06/20/2025 2:14 PM EST06/20/2025 2:20 PM EST Narrative [facility] - 06/20/2025 2:27 PM EST Authorizing ProviderResult TypeResult StatusCorey Yasmin DOCLINISYNCFinal Result Performing OrganizationAddressCity/State/ZIP CodePhone Number CLINISYNC [facility] documented in this encounter Visit Diagnoses Not on filedocumented in this encounter Care Teams Team MemberRelationshipSpecialtyStart DateEnd Date Jose E Burns MD [address] [place] [phone] PCP - GeneralFamily Medicine02/16/23documented as of this encounter
--- OUTSIDE RECORDS SUMMARY | 2025-06-20 17:42 | XMS_ITS | Clinical Summary ---
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 Installer Name Role Phone Jose E Burns MD Primary Care Provider [phone] Allergies No known active allergies Medications MedicationSigDispense [...] 508/506Active Active Problems ProblemNoted DateDiagnosed DateThird trimester ([facility])12/27/2022 Psychogenic nonepileptic mtzueit5911/29/20207900Ruyencian10/23/2021eterioration in school /16/2015Nocturnal xcpmojml06/07/2013DHD (attention deficit hyperactivity disorder)01/11/2012Estimated Date of DeliveryCommentsYes 5Based on Ultrasound, FHR-158 Encounters DateTypeDepartmentCare UwhxKjfsdaqxobf94/13/2025Clinisync Result Encounter [facility] External Department Unsolicited Wolfgang Hoffman DO 06/20/2025bstract [facility] [address] [place] [address] Keyla Rodriguez MA 06/19/2025 3:30 PM ESTRoutine [facility] [address] [place] [address] Wolfgang Hoffman, Third trimester ([facility]); 37 weeks gestation of ([facility])5Bamboo flowsheet [facility] [address] [place] [address] Wolfgang Hoffman, 06/10/2025 3:50 PM ESTRoutine [facility] [address] [place] [address] Gogo Pang PA Third trimester ([facility]); 35 weeks gestation of ([facility]); Psychogenic nonepileptic iuojbhb04/03/2025Clinisync Result Encounter [facility] External Department Unsolicited Gogo Pang PA 06/10/2025Patient Outreach [facility] [address] [place] [address] Gogo Montiel LPN 05/27/2025 3:50 PM EDTRoutine [facility] [address] [place] [address] Wolfgang Hoffman DO size inconsistent with dates ([facility]) (Primary Dx); 33 weeks gestation of ([facility]); Third trimester ([facility]); Psychogenic nonepileptic pnaipdh29/20/2025Bamboo flowsheet [facility] [address] [place] [address] Wolfgang Hoffman DO 5Abstract [facility] [address] [place] [address] Wolfgang Hoffman, 05/20/2025Telephone [facility] [address] [place] [address] Ela Calvillo NP 05/13/2025 3:50 PM EDTRoutine [facility] [address] [place] [address] Ela Calvillo NP 31 weeks gestation of ([facility]); Third trimester ([facility])05/13/2025Patient Outreach [facility] [address] [place] [address] Gogo Montiel LPN 05/10/2025Patient Outreach [facility] [address] [place] [address] Gogo Montiel LPN 05/03/2025Telephone [facility] [address] [place] [address] Ela Calvillo NP 04/30/2025linisync Result Encounter [facility] External Department Unsolicited Wolfgang Hoffman, 04/29/2025 3:20 PM EDTRoutine [facility] [address] [place] [address] Wolfgang Hoffman, Third trimester ([facility]); 29 weeks gestation of ([facility]); Psychogenic nonepileptic seizure ; Diabetes mellitus uuyrocdno13/22/2025amboo flowsheet [facility] [address] [place] [address] Wolfgang Hoffman DO 04/22/20257215Nsbbjj88/10/2025 3:20 PM EDTRoutine [facility] [address] [place] [address] Ela Calvillo NP Third trimester ([facility]); 28 weeks gestation of ([facility])04/17/2025amboo flowsheet [facility] [address] [place] [address] Ela Calvillo NP 04/15/2025Patient Outreach [facility] [address] [place] [address] Gogo Montiel LPN 04/03/2025 3:40 PM EDTRoutine [facility] [address] [place] [address] Wolfgang Hoffman DO Anxiety, generalized (Primary Dx); Second trimester ([facility]); 26 weeks gestation of ([facility]); History of psychogenic nonepileptic ktljddf5004/03/2025amboo flowsheet [facility] [address] [place] [address] Wolfgang Hoffman DO 03/22/2025Telephone [facility] [address] [place] [address] Mildred Mason LPN 03/20/2025 3:40 PM EDTRoutine [facility] [address] [place] [address] Gogo Pang PA Second trimester ([facility]); 24 weeks gestation of ([facility]); Diabetes mellitus screening; Yeast infection; BV (bacterial vaginosis); Urinary tract infection without hematuria, site burczctqfzk41/13/2025amboo flowsheet NOM[facility] [address] [place] [address] Gogo Pang PA from Last 3 Months Social History Tobacco UseTypesPacks/DayYears UsedDateSmoking Tobacco: Never AssessedPHQ-2 AnswerDate RecordedPatient Health Questionnaire-2 Wqwhh94308/10/2024 Estimated Date of SizdrnmhLeiwrigpFga27/03/2025ased on Ultrasound, FHR-158Sex and Gender InformationValueDate RecordedSex Assigned at BirthNot on fileLegal BsuRlrsni40/15/2023 6:34 PM EDTGender IdentityNot on fileSexual OrientationNot on file Last Filed Vital Signs Vital SignReadingTime TakenCommentsBlood Mdduxfdx729/7606/19/2025 3:46 PM EST Pulse--Temperature--Respiratory Rate--Oxygen Saturation--Inhaled Oxygen Concentration--Yrgtwc42.9 kg (169 lb 8 oz)06/19/2025 3:46 PM ACVUpiaad561.6 cm (5' 6 )12/21/2022 12:00 PM EDTBody Mass Index27.36012/21/2022 12:00 PM EDT Plan of Treatment DateTypeDepartmentCare Team (Latest Contact Info)Wiujmleivch94/19/2025 3:10 PM ESTRoutine NOMSt[facility] [address] [place] [address] Gogo Pang PA [address] [place], [place] [phone] 07/17/2025 3:40 PM ESTPostpartum Visit [facility] [address] [place] [address] Wolfgang Hoffman DO [address] [place], [place] [phone] Health MaintenanceDue DateLast DoneCommentsPneumococcal Vaccine: Pediatrics (0 to 5 Years) and At-Risk Patients (6 to 64 Years) (1 of 2 - PCV)2COVID- 19 Vaccine (1 - 2023- season)2025Influenza Vaccine (#1)2025 06/23/2021, 06/22/2016, 07/29/2011 Procedures Procedure NamePriorityDate/TimeAssociated DiagnosisCommentsTBH UA (CLEAN/CATCH) VISUALIZER/MICRO IF IND.Hupxgpq6906/20/2025 2:14 PM EST POCT URINALYSIS XUEWQKBQQgakkzs33/12/2025 3:55 PM EST 37 weeks gestation of ([facility]) POCT URINALYSIS WRMFZPMITxboqqo24/03/2025 4:12 PM EST Third trimester ([facility]) STREP GP B CULTURE+OKKQTshsasy48/03/2025 4:02 PM EST POCT URINALYSIS EJSYVMUYBrsdesv71/20/2025 4:20 PM EDT 33 weeks gestation of ([facility]) Third trimester ([facility]) Psychogenic nonepileptic seizure POCT URINALYSIS YFRVJGTQMgabunv91/06/2025 3:59 PM EDT 31 weeks gestation of ([facility]) MLR HEMOGLOBIN F5NRfzbnny48/23/2025 2:43 PM EDT ALL CBC WITH AUTO JIJYCnlsauy34/23/2025 2:43 PM EDT POCT URINALYSIS SSGOUOXPMotxscg51/22/2025 3:42 PM EDT Third trimester ([facility]) POCT URINALYSIS NCCNCGOFUuiegkl28/10/2025 3:32 PM EDT Third trimester ([facility]) RECURRENT VAGINITIS (HTRX)Pkwjhad2803/20/2025 4:45 PM EDT URINARY TRACT INFECTION (HTRX)Zefjatk8303/20/2025 4:28 PM EDT POCT URINALYSIS AFPNXGUBHwgusho73/13/2025 4:13 PM EDT Second trimester ([facility]) from Last 3 Months Results * (ABNORMAL) TBH UA (CLEAN/CATCH) VISUALIZER/MICRO IF IND. (06/20/2025 2:14 PM EST) ComponentValueRef [...] OrganizationAddressCity/State/ZIP CodePhone Number CLINISYNC TBH * (ABNORMAL) POCT urinalysis dipstick manually resulted (06/19/2025 3:55 PM EST) Only the most recent of7 resultswithin the time period is included. ComponentValueRef RangeTest MethodAnalysis TimePerformed AtPathologist Signature Color, UAYellowClarity, UAClearGlucose, UANegativeNegative - 1999(110) ++++ mg/dLBilirubin, [...] Control and Prevention (CDC) andTBHSTREP GP B CULTURE+RFLXAmercommunity memorial hospital of [facility] Congress of Obstetricians and GynecologistsTBHSTREP GP B [...] is noted.TBHSTREP GP B CULTURE+RFLX Performed at: [facility]TBHSTREP GP B CULTURE+[id number] [place], [place] [id number] GP B CULTURE+RFLXLab Director: Raimundo Cardenas PhD, Phone: [phone] (Source)Anatomical Location / Laterality Collection Method / VolumeCollection TimeReceived Time06/10/2025 4:02 PM EST 06/10/2025 8:50 PM EST Narrative CLINISYNC - 06/15/2025 6:09 PM EST Authorizing ProviderResult TypeResult StatusAmy Campo KATHRYN BLOOD ORDERABLES Final ResultPerforming OrganizationAddressCity/State/ZIP CodePhone Number [facility] * (ABNORMAL) MLR HEMOGLOBIN A1C (04/30/2025 2:43 PM EDT)ComponentValueRef Range Test MethodAnalysis TimePerformed AtPathologist SignatureGLYCOHEMOGLOBIN A1C 4.3(L)4.5 - 6.2 %TBHComment: ADA RECOMMENDED LIMIT 4.0 - 6.0 ADA THERAPEUTIC TARGET < 7.0 ACTION SUGGESTED > 7.0 ESTIMATED AVERAGE AQYQYQK06ab/dLTBHSpecimen (Source)Anatomical Location / LateralityCollection Method / VolumeCollection TimeReceived Time04/30/2025 2:43 PM EDT04/30/2025 2:44 PM EDT Narrative CLINIS[facility]NC - 04/30/2025 3:46 PM EDT Authorizing ProviderResult TypeResult StatusEla Calvillo NPCLINISYNCFinal ResultPerforming OrganizationAddressCity/State/ZIP CodePhone Number [facility] * (ABNORMAL) ALL CBC WITH AUTO DIFF (04/30/2025 2:43 PM EDT)ComponentValueRef RangeTest MethodAnalysis TimePerformed AtPathologist SignatureTBH WBC9.74.0 - 11.0 10 3/uLTBHTBH RBC3.94(L)4.20 - 5.40 10 6/uLTBHTBH HGB12.612.0 - 16.0 g/dL TBHTBH HCT34.5(L)36.0 - 48.0 %TBHTBH MCV87.681.0 - 99.0 fLTBHTBH MCH32.026.7 - 34.0 pgTBHTBH MCHC36.5(H)29.9 - 35.2 g/dLTBHTBH RDW11.911.0 - 15.0 %TBHTBH PLT 541120 - 450 10 3/uLTBHTBH MPV11.39.5 - 13.5 [...] Yasmin DOCLINISYNCFinal Result Performing OrganizationAddressCity/State/ZIP CodePhone Number [facility] * (ABNORMAL) RECURRENT VAGINITIS (HTRX) (03/20/2025 4:45 PM EDT)ComponentValue Ref RangeTest MethodAnalysis TimePerformed AtPathologist SignatureATOPOBIUM TSIWAQF406.961 - 24.9 ppm03/22/2025 7:27 AM EDTHealth[facility]Rx at [facility] ATOPOBIUM VAGINAENot Ibsnswen17.961 - 24.9 ppm03/22/2025 7:27 AM EDT [facility] AdministrationBVAB 2,3 (BACTERIAL VAGINOSIS ASSOCIATED BACTERIA 2, 3); MOBILUNCUS SPP25.723(A)19.961 - 24.689 ppm03/22/2025 7:27 AM EDT [facility] HealthBVAB 2,3 (BACTERIAL VAGINOSIS ASSOCIATED BACTERIA 2, 3); MOBILUNCUS SPPDetected(A)19.961 - 24.689 ppm03/22/2025 7:27 AM EDT [facility] at LabPortCANDIDA ALBICANS, PARAPSILOSIS, PLSLKQAWXU316.000 - 30.347 ppm03/22/2025 7:27 AM EDTHealthTrackRx at LabPortCANDIDA ALBICANS, PARAPSILOSIS, TROPICALISNot Uipnvxxi48.000 - 30.347 ppm03/22/2025 7:27 AM EDT [facility] LabPortCANDIDA QOPMDZAC640.000 - 31.618 ppm03/22/2025 7:27 AM EDTHealthTrackRx at LabPortCANDIDA GLABRATANot Kbvpkqox03.000 - 31.618 ppm 03/22/2025 7:27 AM EDTHealthTrackRx at LabPortCANDIDA JCLKDU859.000 - 30.873 ppm03/22/2025 7:27 AM EDTHealthTrackRx at LabPortCANDIDA KRUSEINot Detected 23.000 - 30.873 ppm03/22/2025 7:27 AM EDTHealthTrackRx at [facility] AdministrationCHLAMYDIA KAGWSNJPMMD517.000 - 31.586 ppm03/22/2025 7:27 AM EDTHealthTrackRx at [facility] CHLAMYDIA TRACHOMATISNot Fsmjqfjy62.000 - 31.586 ppm03/22/2025 7:27 AM EDT [facility] AdministrationGARDNERELLA VUTSSXRMW69.041(A)19.961 - 24.689 ppm 03/22/2025 7:27 AM EDTHealthTrackRx at [facility] AdministrationGARDNERELLA VAGINALISDetected(A) 19.961 - 24.689 ppm03/22/2025 7:27 AM EDTHealthTrackRx at [facility] AdministrationMEGASPHAERA (TYPES 1, 2)019.961 - 24.689 ppm03/22/2025 7:27 AM EDTHealthTrackRx at [facility] MEGASPHAERA (TYPES 1, 2)Not Vntsncee34.961 - 24.689 ppm03/22/2025 7:27 AM EDT [facility] at LabPortNEISSERIA XPWSVEAPMTC077.000 - 32.587 ppm03/22/2025 7:27 AM EDTHealthTrackRx at LabPortNEISSERIA GONORRHOEAENot Qozvyimq42.000 - 32.587 ppm03/22/2025 7:27 AM EDTHealthTrackRx at LabPortTRICHOMONAS VAGINALIS0 23.000 - 31.995 ppm03/22/2025 7:27 AM EDTHealthTrackRx at LabPortTRICHOMONAS VAGINALISNot Cyncydzf50.000 - 31.995 ppm03/22/2025 7:27 AM EDTHealthTrackRx at [facility] AdministrationMYCOPLASMA XQZMLXIISX192.961 - 24.689 ppm03/22/2025 7:27 AM EDT [facility] HealthMYCOPLASMA GENITALIUMNot Yilrmqgb53.961 - 24.689 ppm 03/22/2025 7:27 AM EDTHealthTrackRx at [facility], C; MEFA24.079(A)23.000 - 27.500 ppm03/22/2025 7:27 AM EDTHealthTrackRx at [facility], C; MEFADetected (A)23.000 - 27.500 ppm03/22/2025 7:27 AM EDTHealthTrackRx at [facility] Mental HealthTET B, TET M23.681(A)23.000 - 27.500 ppm03/22/2025 7:27 AM EDTHealthTrackRx at [facility] AdministrationTET B, TET MDetected(A)23.000 - 27.500 ppm03/22/2025 7:27 AM EDTHealthTrackRx at [facility] AdministrationSpecimen (Source)Anatomical Location / LateralityCollection Method / VolumeCollection TimeReceived LpqyAdeyyg82/13/2025 4:45 PM EDT08/ 2:18 AM EDT Narrative Authorizing ProviderResult TypeResult StatusEla Calvillo NPLAB BLOOD ORDERABLESFinal ResultPerforming OrganizationAddressCity/State/ZIP CodePhone Number [facility] [address] [place] [address] * URINARY TRACT INFECTION (HTRX) (03/20/2025 4:28 PM EDT)ComponentValueRef Range Test MethodAnalysis TimePerformed AtPathologist SignatureACINETOBACTER XQHCSLQS763.961 - 24.689 ppm03/22/2025 9:02 AM EDTHealthTrackRx at LabPort ACINETOBACTER BAUMANIINot Mgxxzfek37.961 - 24.689 ppm03/22/2025 9:02 AM EDT [facility] at LabPortCITROBACTER AWVOPJBE493.000 - 32.015 ppm03/22/2025 9:02 AM EDTHealthTrackRx at LabPortCITROBACTER FREUNDIINot Zgrzlgbs23.000 - 32.015 ppm03/22/2025 9:02 AM EDTHealthTrackRx at LabPortENTEROBACTER AEROGENES, BLRDBRE773.000 - 32.290 ppm03/22/2025 9:02 AM EDTHealthTrackRx at LabPortENTEROBACTER AEROGENES, CLOACAENot Cbhhdvwq48.000 - 32.290 ppm 03/22/2025 9:02 AM EDTHealthTrackRx at LabPortENTEROCOCCUS FAECALIS, FAECIUM0 26.000 - 33.043 ppm03/22/2025 9:02 AM EDTHealthTrackRx at LabPortENTEROCOCCUS FAECALIS, FAECIUMNot Zmgaarzv82.000 - 33.043 ppm03/22/2025 9:02 AM EDT [facility] at LabPortESCHERICHIA GWIM576.000 - 28.500 ppm03/22/2025 9:02 AM EDTHealthTrackRx at LabPortESCHERICHIA COLINot Zalxizev46.000 - 28.500 ppm 03/22/2025 9:02 AM EDTHealthTrackRx at LabPortKLEBSIELLA PNEUMONIAE, OXYTOCA0 23.000 - 31.865 ppm03/22/2025 9:02 AM EDTHealthTrackRx at LabPortKLEBSIELLA PNEUMONIAE, OXYTOCANot Twhcivfd88.000 - 31.865 ppm03/22/2025 9:02 AM EDT [facility] at LabPortMORGANELLA QBGNLAUO333.961 - 24.689 ppm03/22/2025 9:02 AM EDTHealthTrackRx at LabPortMORGANELLA MORGANIINot Mtzpxbod30.961 - 24.689 ppm03/22/2025 9:02 AM EDTHealthTrackRx at LabPortPROTEUS MIRABILIS, VULGARIS0 23.000 - 28.500 ppm03/22/2025 9:02 AM EDTHealthTrackRx at LabPortPROTEUS MIRABILIS, VULGARISNot Auceyegb38.000 - 28.500 ppm03/22/2025 9:02 AM EDT [facility] at LabPortPSEUDOMONAS MYQRGLKWYC133.000 - 31.801 ppm03/22/2025 9:02 AM EDTHealthTrackRx at LabPortPSEUDOMONAS AERUGINOSANot Jofbxsdb80.000 - 31.801 ppm03/22/2025 9:02 AM EDTHealthTrackRx at LabPortSTAPHYLOCOCCUS AUREUS0 26.000 - 31.595 ppm03/22/2025 9:02 AM EDTHealthTrackRx at LabPort STAPHYLOCOCCUS AUREUSNot Xpzrucqc08.000 - 31.595 ppm03/22/2025 9:02 AM EDT [facility] at LabPortSTREPTOCOCCUS AGALACTIAE (GROUP B STREP)026.000 - 32.435 ppm03/22/2025 9:02 AM EDTHealthTrackRx at LabPortSTREPTOCOCCUS AGALACTIAE (GROUP B STREP)Not Nefknvrv47.000 - 32.435 ppm03/22/2025 9:02 AM EDTHealthTrackRx at LabPortCANDIDA ALBICANS, PARAPSILOSIS, UFHXDMHVSY226.000 - 30.347 ppm03/22/2025 9:02 AM EDTHealthTrackRx at LabPortCANDIDA ALBICANS, PARAPSILOSIS, TROPICALISNot Mgzkfpmb42.000 - 30.347 ppm03/22/2025 9:02 AM EDT [facility] LabPortCANDIDA AMVIXHLX943.000 - 31.618 ppm08/ 9:02 AM EDTHealth[facility] at [facility] Hospital[facility]CANDIDA GLABRATANot Lrvwpwke38.000 - 31.618 ppm 03/22/2025 9:02 AM EDTHealthTrackRx at LabPortCANDIDA CQHHOW676.000 - 30.873 ppm03/22/2025 9:02 AM EDTHealthTrackRx at LabPortCANDIDA KRUSEINot Detected 23.000 - 30.873 ppm03/22/2025 9:02 AM EDTHealthTrackRx at [facility]South[facility] Mental HealthSERRATIA XSARJYLHTF293.000 - 31.581 ppm03/22/2025 9:02 AM EDTHealth[facility] at [facility] SERRATIA MARCESCENSNot Drpanzzl53.000 - 31.581 ppm03/22/2025 9:02 AM EDT [facility] AdministrationSTREPTOCOCCUS PYOGENES (GROUP A STREP)019.961 - 24.689 ppm03/22/2025 9:02 AM EDTHealthTrackRx at [facility]South[facility] Mental HealthSTREPTOCOCCUS PYOGENES (GROUP A STREP)Not Lttnalfn87.961 - 24.689 ppm03/22/2025 9:02 AM EDTHealthTrackRx at [facility] AdministrationSTAPHYLOCOCCUS EPIDERMIDIS, HAEMOLYTICUS, LUGDUNENSIS, SAPROPHYTICUS (LOIAW476.961 - 24.689 ppm03/22/2025 9:02 AM EDTHealth[facility] at [facility] STAPHYLOCOCCUS EPIDERMIDIS, HAEMOLYTICUS, LUGDUNENSIS, SAPROPHYTICUS (URINANot Hvlcyahk08.961 - 24.689 ppm03/22/2025 9:02 AM EDTHealthTrackRx at [facility] STAPHYLOCOCCUS EPIDERMIDIS, HAEMOLYTICUS, LUGDUNENSIS, SAPROPHYTICUS (URINA0 19.961 - 24.689 ppm03/22/2025 9:02 AM EDT[facility] at [facility] STAPHYLOCOCCUS EPIDERMIDIS, HAEMOLYTICUS, LUGDUNENSIS, SAPROPHYTICUS (URINANot Eoribfff79.961 - 24.689 ppm03/22/2025 9:02 AM EDTHealthTrackRx at LabPort Specimen (Source)Anatomical Location / LateralityCollection Method / Volume Collection TimeReceived ZkgiKowol79/13/2025 4:28 PM EDT03/22/2025 2:18 AM EDT Narrative Authorizing ProviderResult TypeResult StatusEla Calvillo NPLAB BLOOD ORDERABLESFinal ResultPerforming OrganizationAddressCity/State/ZIP CodePhone Number [facility] [address] [place] [id number] from Last 3 Months Insurance Care Teams Team MemberRelationshipSpecialtyStart DateEnd Jose E Burns MD [address] [facility] [place] [address] PCP - GeneralFamily Medicine02/16/23
--- OUTSIDE RECORDS SUMMARY | 2025-06-20 17:42 | XMS_ITS | Encounter Summary ---
Author Organization [facility] Address [address] [facility] [place] [address] Care Team Providers Care Curriculum Consultant Name Role Phone Jose E Burns MD Primary Care Provider [phone] Encounter Details DateTypeDepartmentCare Team (Latest Contact Info)Dgswbhqjpgc73/03/2025Clinisync Result Encounter [facility] External Department Unsolicited Gogo Pang, MICHELLE [address] [place] [address] [place] [address] Social History Tobacco UseTypesPacks/DayYears UsedDateSmoking Tobacco: Never AssessedPHQ-2 AnswerDate RecordedPatient Health Questionnaire-2 Cikzg26608/10/2024 Estimated Date of HkldjjuyWaditzrmOod20/03/2025Based on Ultrasound, FHR-158Sex and Gender InformationValueDate RecordedSex Assigned at BirthNot on fileLegal HtaSgydjb14/15/2023 6:34 PM EDTGender IdentityNot on fileSexual OrientationNot on filedocumented as of this encounter Functional Status * Over the past 2 weeks, how often have you been bothered by any of the following problems?QuestionAnswerDate of AssessmentAuthorLittle interest or pleasure in doing thingsNot at all06/10/2025 11:36 AM Gogo Glass LPN Feeling down, depressed, or hopelessNot at all06/10/2025 11:36 AM Gogo Glass LPNPatient Health Questionnaire-2 Wmxhz72408/10/2024 11:36 AM Gogo Glass LPN documented as of this encounter Plan of Treatment DateTypeDepartmentCare Team (Latest Contact Info)Yiucfprjnto68/19/2025 3:10 PM ESTRoutine [facility] [address] [place] [place] [phone] Gogo Pang PA [address] [place], [place] [phone] 07/17/2025 3:40 PM ESTPostpartum Visit NOMStacey [facility] [address] [place] [place] [address] Wolfgang Hoffman DO [address] [place], [place] [phone] documented as of this encounter Procedures Procedure NamePriorityDate/TimeAssociated DiagnosisCommentsSTREP GP B CULTURE+YKOZXjvgjvb18/03/2025 4:02 PM EST documented in this encounter [...] is noted.TBHSTREP GP B CULTURE+RFLX Performed at: [facility] LabAspirus Keween[facility] HospitalTBHSTREP GP B CULTURE+[id number] [place], [place] [id number] GP B CULTURE+RFLXLab Director: Raimundo Cardenas PhD, Phone: [phone] (Source)Anatomical Location / Laterality Collection Method / VolumeCollection TimeReceived Time06/10/2025 4:02 PM EST 06/10/2025 8:50 PM EST Narrative [facility] - 06/15/2025 6:09 PM EST Authorizing ProviderResult TypeResult StatusAmy Poly PAL BLOOD ORDERABLES Final ResultPerforming OrganizationAddressCity/State/ZIP CodePhone Number [facility] TB documented in this encounter Visit Diagnoses Not on filedocumented in this encounter Care Teams Team MemberRelationshipSpecialtyStart DateEnd Date Jose E Burns MD [address] [place] [phone] PCP - GeneralFamily Medicine02/16/23documented as of this encounter
--- OUTSIDE RECORDS SUMMARY | 2025-06-20 17:43 | XMS_ITS | CCD ---
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 Name Role Phone YASMIN ., DR ALLEN Consulting Unavailable YASMIN ., DR ALLEN Admitting Unavailable YASMIN ., DR ALLEN Attending Unavailable HOY ., DR WETZEL Primary Care Unavailable YASMIN ., DR ALLEN Consulting Unavailable YASMIN ., DR ALLEN Attending Unavailable YASMIN ., DR ALLEN Admitting Unavailable HOY ., DR WETZEL Primary Care Unavailable ZIEBKESHAWN, DR LUISA Garcia Consulting Unavailable YASMIN ., DR ALLEN Attending Unavailable AVENUE, DR YO Scanlon Consulting Unavailable YASMIN ., DR ALLEN Admitting Unavailable HOY ., DR WETZEL Primary Care Unavailable YASMIN ., DR ALLEN Consulting Unavailable VIDAL, DR GUSTAVO Garcia Attending Unavailable VIDAL, DR GUSTAVO Garcia Consulting Unavailable YOUNG, DR GUSTAVO Garcia Admitting Unavailable HOY ., DR WETZEL Primary Care Unavailable KAILEY SIHNA Consulting Unavailable GEORGINA HILARIO Attending Unavailable YANELIS, GEORGINA Consulting Unavailable GEORGINA HILARIO Admitting Unavailable HOY ., DR WETZEL Primary Care Unavailable HOY ., DR WETZEL Consulting Unavailable HOY ., DR WETZEL Primary Care Unavailable HOY ., DR WETZEL Admitting Unavailable HOY ., DR WETZEL Attending Unavailable DIAB ., LALITA Admitting Unavailable DIAB ., LALITA Attending Unavailable CARLEY PERRY M Consulting Unavailable HOY ., DR WETZEL Primary Care Unavailable DIAB ., LALITA Consulting Unavailable YASMIN ., DR ALLEN Consulting Unavailable AYSMIN ., DR ALLEN Admitting Unavailable YASMIN ., [...] Primary Care Unavailable YASMIN ., DR ALLEN Admcrystal Unavailable YASMIN ., DR ALLEN Attending Unavailable [...] ALLEN Attending Unavailable YASMIN ., DR ALLEN Admcrystal Unavailable HOY ., DR WETZEL Primary Care [...] WETZEL Primary Care Unavailable YASMIN ., DR ALLNE Admitting Unavailable YASMIN ., DR ALLEN Attending Unavailable HOY ., DR WETZEL Primary Care Unavailable YASMIN ., DR ALLEN Consulting Unavailable YASMIN ., DR ALLEN Admitting Unavailable YASMIN ., DR ALLEN Attending Unavailable HOY ., DR WETZEL Primary Care Unavailable GEORGINA HILARIO Attending Unavailable GEORGINA HILARIO Consulting Unavailable GEORGINA HILARIO Admitting Unavailable HOY ., DR WETZEL Primary Care Unavailable RADHA ., CASSANDRA Consulting Unavailable TO, YO Mac Unavailable YOUNG, DR GUSTAVO Garcia Attending Unavailable YOUNG, DR GUSTAVO Garcia Consulting Unavailable YOUNG, DR GUSTAVO Garcia Admitting Unavailable TC ., DR WETZEL Primary Care Unavailable ALICJA AVILA Unavailable Rashard Burns Primary Care Physician [phone] Rashard Burns Referring Unavailable Alicja LINARES Attending Unavailable Rashard Burns Referring Unavailable Alicja LINARES Attending Unavailable CHIRTRISTON, BETITO Admitting Unavailable ELISA JACKSONL Attending Unavailable JHOAN TENORIO Referring Unavailab le [...] Unavailable Rashard Burns MD Primary Care Provider [id number] Rashard Burns MD Primary Care Provider [phone] Rashard Burns MD Primary Care Provider [phone] Rashard Burns MD Primary Care Provider [phone] Shivam Gutierrez Admitting Unavailab Shivam Melchor Attending Unavailab le NO FAMILY, PHYSICIAN Primary Care Unavailable Rashard Burns MD Primary Care Provider [phone] YASMIN, WOLFGANG Attending Unavailable YASMIN, WOLFGANG Attending Unavailable YASMIN, WOLFGANG Attending Unavailable POLY, GOGO Attending Unavailable YASMIN, WOLFGANG Attending Unavailable POLY, GOGO Attending Unavailable YASMIN, WOLFGANG Attending Unavailable RAJINDER, ELVIA Attending Unavailable YASMIN, WOLFGANG Attending Unavailable RAJINDER, ELVIA Attending Unavailable YASMIN, WOLFGANG Attending Unavailable POLY, GOGO Attending Unavailable Tyson Dillard DO Attending Provider Rashard Burns MD Primary Care Provider [phone] Allergies Allergy ClassificationReported Allergen(s)Allergy TypeDate of OnsetReaction(s) Facility (1 source)amanda allergenic extractDrug [id number] [facility] Repository (1 source)Unable to obtain; Translations: [Unable to obtain]Propensity to adverse reactions (disorder)[facility] Repository (1 source)No Known Medication Allergies; Translations: [No Known Medication Allergies]Propensity to adverse reactions (disorder)[facility] Repository Medications Current Medications MedicationDrug Class(es)DatesSig (Normalized)Sig (Original)acetaminophen 500 mg oral tablet (2 sources)Start: 99-72-1507ghsk 2 tablets by mouth every six hoursacetaminophen (TYLENOL EXTRA STRENGTH) 500 mg tablet Take 2 tablets (1,000 mg total) by mouth every6 (six) hours. 30 tablet 0 10/03/2023 [id number] 200 actuat albuterol 0.09 mg/actuat metered dose inhaler (13 sources)beta2-Adrenergic Agonist End: 75-32-3194mzmywbtzy HFA 90 mcg/act inhaler Inhale 2 puffs 12/06/2024 Discontinuedalbuterol (PROVENTIL HFA;VENTOLIN HFA) 90 mcg/actuation inhaler Inhale 2 puffs. 0 Activecephalexin 50 mg/ml oral suspension (2 sources)Cephalosporin AntibacterialStart: 03-20-2025 End: 83-21-8266gsxs 10 mL by mouth every six hourscephalexin (Keflex) 250 MG/5ML suspension Indications: Urinary tract infection without hematuria, site unspecified Take 10 mL (500 mg) by mouth every 6 (six) hours for 10 days 400 mL 03/20/2025 03/30/2025 Activecitalopram 20 mg oral tablet (20 sources)Serotonin Reuptake InhibitorStart: 04-03-2025 End: 71-23-8365pduf 1 tablet by mouth once dailycitalopram (CeleXA) 20 MG tablet Indications: Anxiety, generalized Take 1 tablet (20 mg) by mouth Daily 30 tablet 5 04/03/2025 09/30/2025 Active End: 96-11-1737sccj 1 tablet by mouth in the morningcitalopram (CeleXA) 10 MG tablet Take 10 mg by mouth in the morning. 12/06/2024 Discontinueddesmopressin acetate 0.2 mg oral tablet (9 sources)Vasopressin Analog, Factor VIII Activator End: 19-10-1465hxzzhrbbawcr (DDAVP) 0.2 MG tablet 2 qam and 1 prn 12/06/2024 Discontinueddesogestrel 0.15 mg / ethinyl estradiol 0.03 mg oral tablet (9 sources)Progestin, EstrogenStart: 06-19-2024 End: 83-81-4355kjjx 1 tablet by mouth once daily, then take 1 tablet by mouth once dailydesogestrel-ethinyl estradiol (Apri) 0.15-30 MG-MCG tablet Indications: Encounter for BCP ( control pills) initial prescription Take 1 tablet by mouth Daily Take 1 tablet by mouth daily 84 tablet 3 06/19/2024 12/06/2024 Ddhagpjzclee79 hr desvenlafaxine succinate 50 mg extended release oral tablet (10 sources)Serotonin and Norepinephrine Reuptake InhibitorStart: 06-22-2023 End: 27-45-6982tkfn 1 tablet by mouth once dailyPristiq 50 mg Tab-ER 50 mg = 1 tab(s), Oral, Daily, Refills(s) 0 Start Date: 06/22/23 Status: OrderedFLUoxetine 10 mg oral capsule (7 sources)Serotonin Reuptake InhibitorStart: 30-27-7850jzjy 1 capsule by mouth once dailyFLUoxetine (PROzac) 10 mg capsule TAKE 1 CAPSULE BY ORAL ROUTE PER DAILY TAKE 30 MG (20 MG + 10 MG)DAILY 0 11/06/2020 Activehyoscyamine sulfate 0.125 mg oral tablet (10 sources)Start: 07-05-2023 End: 84-51-5869sapyopijfap (Levsin) 0.125 MG tablet Take 0.125 mg by mouth 07/05/2023 12/06/2024 Discontinuedibuprofen 600 mg oral tablet (2 sources)Nonsteroidal Anti-inflammatory DrugStart: 40-98-9187vgcm 1 tablet by mouth every six hoursibuprofen (MOTRIN) 600 mg tablet Take 1 tablet (600 mg total) by mouth every 6 (six) hours. 30 tablet 0 10/03/2023 ActivelamoTRIgine 100 mg oral tablet (14 sources)Mood Stabilizer, Anti-epileptic AgentStart: 05-16-2023 End: 51-57-5347ncmp 1 tablet by mouth in the morninglamoTRIgine (LaMICtal) 100 MG tablet Take 1 tablet by mouth in the morning and 1 tablet before bedtime. 05/16/2023 12/06/2024 DiscontinuedmedroxyPROGESTERone acetate 10 mg oral tablet (20 sources)ProgestinStart: 09-25-2024 End: 04-64-8191oowo 1 tablet by mouth once dailymedroxyPROGESTERone (Provera) 10 MG tablet Indications: PCOS (polycystic ovarian syndrome) Take 1 tablet (10 mg) by mouth Daily for 14 days 14 tablet 09/25/2024 12/06/2024 DiscontinuedStart: 12-30-2023 End: 79-10-4262eqhbyhbLLVSXWRZPdqz (Depo-Provera) 150 MG/ML suspension prefilled syringe injection syringe Indications: Encounter for initial prescription of injectable contraceptive INJECT 1 ML (150 MG) INTO THE SHOULDER, THIGH, OR BUTTOCKS EVERY 3 (THREE) MONTHS. 1 mL 3 12/30/2023 12/06/2024 DiscontinuedStart: 09-30-2023 End: 62-36-7865vvdxzsuFMBIAQXBAywl (Depo-Provera) injection 150 mg medroxyPROGESTERone (DEPO-PROVERA) 150 mg/mL injection Inject 1 mL (150 mg total) into the appropriate muscle every 3 (three) months. 0 ActivemetroNIDAZOLE 0.0075 mg/mg vaginal gel (18 sources)Nitroimidazole AntimicrobialStart: 72-92-3761fksdkUOZCGCZZ (Metrogel) 0.75 % vaginal gel Indications: Bacterial vaginosis Patient to use vaginally nightly for 5 nights, then twice weekly thereafter for 4 months. 140 g 3 03/25/2025 Activeondansetron 4 mg disintegrating oral tablet (19 sources)Serotonin-3 Receptor AntagonistStart: 01-18-2025 End: 45-15-9045tzzf 1 tablet by mouth every six hours for nauseaondansetron ODT (Zofran-ODT) 4 MG disintegrating tablet Indications: Nausea and vomiting in ([facility]) Take 1 tablet (4 mg) by mouth every 6 (six) hours if needed for nausea or vomiting 30 tablet 2 01/18/2025 02/17/2025 ActiveStart: 06-01-2023 End: 71-07-1854avnwduxqcrr ODT (Zofran-ODT) [address] ONE TABLET ON THE TONGUE AND ALLOW TODISSOLVE EVERY 6 HOURS NEEDED FOR 3 DAYS 06/02/2023 12/06/2024 Discontinuedpantoprazole 40 mg delayed release oral tablet (12 sources)Proton Pump InhibitorStart: 06-01-2023 End: 03-21-7511njvjuxdtywax (ProtoNix) 40 MG EC tablet Take 40 mg by mouth 06/01/2023 12/06/2024 DiscontinuedPrenatal 28-0.8 MG tablet (20 sources)take 1 tablet by mouth once dailyPrenatal 28-0.8 MG tablet Take 1 tablet by mouth Daily ActivePrenatal Vit-Fe Fumarate-FA ( Plus) 27-1 MG tablet (9 sources) End: 77-53-2662Awvsfiko Vit-Fe Fumarate-FA ( Plus) 27-1 MG tablet 1 (one) time each day at the same time. 12/06/2024 DiscontinuedPrenatal Vit-Fe Fumarate-FA ( Plus) 27-1 MG tablet 1 (one) time each day at the same time. Active Problems Active Problems Problem ClassificationProblemDateDocumented DateEpisodic/ChronicAbdominal pain (12 sources)Unspecified abdominal pain; Translations: [Upper abdominal pain, unspecified]Onset: 26-74-3236YghzulqzQmnwpeqx reactions (1 source)Allergy, unspecified, initial encounter; Translations: [ALLERGY UNSPECIFIED INITIAL ENCNTR]Onset: 97-36-2692UuavdkifEwysyeg disorders (2 sources)Generalized anxiety disorder; Translations: [Generalized anxiety disorder]22-21-8782XwrtyiwLvbkae (3 sources)Asthma; Translations: [Unspecified asthma, uncomplicated]Onset: 579563-23-5929TerhnccQegrovikh-mdkjxks, conduct, and disruptive behavior disorders (20 sources)Attention deficit hyperactivity disorder; Translations: [Attention- deficit hyperactivity disorder, unspecified type]Onset: ChronicBiliary tract disease (5 sources)Biliary calculus; Translations: [Biliary colic]Onset: 09-27-2023 89-34-8632UyddsxyjQoklpvly; convulsions (1 source)Other epilepsy, not intractable, without status epilepticus; Translations: [OTH EPIL NOT INTRACTABLE WITHOUT SE]Onset: 66-92-0690Tsoovwe Epilepsy; convulsions (7 sources)Unspecified convulsions; Translations: [UNSPECIFIED CONVULSIONS] Onset: 11-58-4037JzzoudjbQxflhhnkof disorders (1 source)Gastro-esophageal reflux disease without esophagitis; Translations: [GERD WITHOUT ESOPHAGITIS]Onset: 70-25-0637NbmdydaNwvwnqaolvfmw symptoms and ill-defined conditions (20 sources)Nocturnal enuresis; Translations: [Nocturnal enuresis]Onset: 038593-55-8918MsinllaWghcbimf; including migraine (20 sources)Migraine; Translations: [Migraine, unspecified, not intractable, without status migrainosus]Onset: 231718-64-8809RsvxuyxKohdmxeriwjmx and screening for infectious disease (2 sources)Exposure to sexually transmissible disorder; Translations: [Contact with and (suspected) exposure to infections with a predominantly sexual mode of transmission]63-67-0102QtuqwgptPwtknkglbfks diseases of female pelvic organs (2 sources)Bacterial vaginosis; Translations: [Acute vaginitis]03-20-2025 EpisodicMenstrual disorders (5 sources)Irregular menstruation, unspecified; Translations: [Missed period] Onset: 81-97-4430JggkteeMlqecncfplpsx mental health disorders (20 sources)Dissociative neurological symptom disorder; 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]Onset: 099565-57-4189ZfbujjuJhqrjia (2 sources)Mycosis; Translations: [Candidiasis, unspecified]23-01-5815Hhlsqtnt Other aftercare (1 source)Other alf (current) drug therapy; Translations: [OTH HALF-WAY CURRENT DRUG THERAPY]Onset: 80-75-5864CoudhxhnMuahh complications of (2 sources)Maternal care for other specified problems, unspecified trimester, not applicable or unspecified; Translations: [MAT CARE OTH FTL PROB UNS TRI UNS]Onset: 01-35-9280EjffvsibMkzar complications of (2 sources)Maternal care for problem, unspecified, unspecified trimester, not applicable or unspecified;Translations: [MAT CARE FTL PROB UNS UNS TRI UNS] Onset: 10-93-7486CfyheyzdGjhbc complications of (4 sources)Maternal care for other known or suspected poor growth, third trimester, not applicable or unspecified; Translations: [MAT CARE OTH [place] FTL GRTH 3RD TM UNS]Onset: 80-56-2819KktawfteHrqfz complications of (1 source)Smoking (tobacco) complicating , third trimester; Translations: [SMOKING TOBACCO COMP SRGJ5UD TRI]Onset: 85-43-6525WipqqjndFdsco complications of (4 sources)Other specified related conditions, third trimester; Translations: [OTH SPEC PREG RELATEDCOND 3RD TRI]Onset: 96-17-2481DxxowqpfSbhue complications of (4 sources)Uterine size-date discrepancy, unspecified trimester; Translations: [UTERINE SZ-DATE DISCREPANCY UNS TRI]Onset: 85-30-5485ZxwgyfyoVzyfi complications of (2 sources) size does not accord with dates; Translations: [Uterine size- date discrepancy, unspecified trimester]56-96-7402VippxrokFunjx endocrine disorders (4 sources)Polycystic ovary syndrome; Translations: [Polycystic ovarian syndrome]19-84-2374PyhslytCtotx female genital disorders (2 sources)Vaginal discharge; Translations: [Other specified noninflammatory disorders of vagina]73-64-4901EducohweCfzht lower respiratory disease (3 sources)Shortness of breath; Translations: [SHORTNESS OF BREATH]Onset: 12-64-2104PmdqfsvfIyrsf screening for suspected conditions (not mental disorders or infectious disease) (6 sources)Patient encounter status; Translations: [Encounter for other specified screening]07-47-1343OytnxzyeYaomnkhw codes; unclassified (1 source)36 weeks gestation of ; Translations: [36 WEEKS GESTATION OF ]Onset: 24-56-8269WvgqgrgnVbtpwuat codes; unclassified (1 source)Weeks of gestation of not specified; Translations: [WEEKS GESTATION NOT SPEC]Onset: 83-75-1291LermywpbOpaimdqr codes; unclassified (1 source)35 weeks gestation of ; Translations: [35 WEEKS GESTATION OF ]Onset: 49-36-1777YknwomaiKlpilfod codes; unclassified (1 source)34 weeks gestation of ; Translations: [34 WEEKS GESTATION OF ]Onset: 66-18-4917BkalwoaeVwhvhrlb codes; unclassified (1 source)Acquired absence of other specified parts of digestive tract; Translations: [Acquired absence of other specified parts of digestive tract] Onset: 82-21-6750PxbbsynxTmtpqgvj codes; unclassified (1 source)Pain, unspecified; Translations: [Pain, unspecified]Onset: 08-23-2023 EpisodicResidual codes; unclassified (2 sources)Gestation period, 12 weeks; Translations: [12 weeks gestation of ]72-49-6642UjgypmvzKnsxoiuc codes; unclassified (4 sources)Personal history of other specified conditions; Translations: [Personal history of other specified diseases]40-72-5884AzuphjqhHgmnmoen codes; unclassified (2 sources)Gestation period, 16 weeks; Translations: [16 weeks gestation of ]56-39-1271ExiyanlmMzxykmsd codes; unclassified (2 sources)Gestation period, 20 weeks; Translations: [20 weeks gestation of ]45-44-6736YxtsxvkoOinfevbb codes; unclassified (2 sources)Gestation period, 24 weeks; Translations: [24 weeks gestation of ]97-62-9532OmuekdkcWtcddomx codes; unclassified (2 sources)Gestation period, 26 weeks; Translations: [26 weeks gestation of ]79-09-7825QhngwewmMiehilwu codes; unclassified (2 sources)Gestation period, 28 weeks; Translations: [28 weeks gestation of ]12-36-4454PpbvctsfHhbeznqi codes; unclassified (2 sources)Gestation period, 29 weeks; Translations: [29 weeks gestation of ]41-54-1346FpbkbdqdOiaofdyr codes; unclassified (2 sources)Gestation period, 31 weeks; Translations: [31 weeks gestation of ]04-03-0315AmtmkjdfMywztlno codes; unclassified (2 sources)Gestation period, 33 weeks; Translations: [33 weeks gestation of ]66-72-4382MgjbstodSmvzqwxo codes; unclassified (2 sources)Gestation period, 35 weeks; Translations: [35 weeks gestation of ]75-36-0182EopfefvgEakgtvjegjn; intervertebral disc disorders; other back problems (1 source)Degeneration of cervical intervertebral gcra98-49-9244Ptblruq Substance-related disorders (1 source)Nicotine dependence, cigarettes, uncomplicated; Translations: [NICOTINE DEPEND CIGARETTES UNCOMP]Onset: 18-04-2200BpkqzqaZayzbguobsyq (3 sources)CONTACT W/AND (SUSP) EXPOS COVID-19; Translations: [CONTACT W/AND (SUSP) EXPOS COVID-19]Onset: 26-65-0394Ccbzzokecdlw (1 source)Post-opOnset: 66-03-6164Cwsjfxtomprs (1 source)CholelithiasisOnset: 22-90-7600Mdwoqvx tract infections (3 sources)Urinary tract infection, site not specified; Translations: [Urinary tract infectious disease]Onset: 270350-70-5908Egfuzpsr Past or Other Problems Problem ClassificationProblemDateDocumented DateEpisodic/Chronic Administrative/social admission (20 sources)Deterioration in school performance; Translations: [Other problems related to education and literacy]Onset: 462804-39-5602WhuckmsyPsbfglnngi during ; abruptio placenta; placenta previa (5 sources)Hemorrhage in early , unspecified; Translations: [HEMORRHAGE EARLY UNS]Onset: 19-96-6721RygbwihjCzazyx and vomiting (1 source)Nausea with vomiting, unspecified; Translations: [NAUSEA WITH VOMITING UNSPECIFIED]Onset: 02-34-7572SckduaaaNwtfz complications of (4 sources)Unspecified infection of urinary tract in , unspecified trimester; Translations: [UNS INF URINARY TRACT PREG UNS TRI]Onset: 08-25-2022 EpisodicOther complications of (1 source)Smoking (tobacco) complicating , first trimester; Translations: [SMOKING TOBACCO COMP HFXU1ES TRI]Onset: 79-43-4775ZmoloihcHxqmt complications of (1 source)Unspecified infection of urinary tract in , first trimester; Translations: [UNS INF URINARY TRACT PREG 1ST TRI]Onset: 58-01-9541KvkesrudZfwkn complications of (1 source)Other specified related conditions, first trimester; Translations: [OTH SPEC PREG RELATEDCOND 1ST TRI]Onset: 67-51-3186KbtvrxjhTdzry complications of (4 sources)Other specified related conditions, unspecified trimester; Translations: [OTH SPEC PREG RELATED COND UNS TRI]Onset: 64-29-1058YpuimnckIgmuk complications of (1 source)Smoking (tobacco) complicating , unspecified trimester; Translations: [SMOKING TOBACCO COMP PREG UNS TRI]Onset: 21-11-0017MkgndqmiMykrw and delivery including normal (20 sources)Encounter for supervision of normal , unspecified, third trimester; Translations: [Encounter for supervision of normal first , first trimester]Onset: 25-51-9186WfiqyuwqQphvu upper respiratory infections (1 source)Acute sinusitis, unspecified; Translations: [ACUTE SINUSITIS UNSPECIFIED]Onset: 49-79-9492ExlnpadxSayezmkb codes; unclassified (1 source)8 weeks gestation of ; Translations: [8 WEEKS GESTATION OF ]Onset: 02-45-0606YiuemxdnNbbbpiwf codes; unclassified (1 source)Less than 8 weeks gestation of ; Translations: [< 8 WEEKS GESTATION ]Onset: 45-73-0150QpuezyzjOenqdaf (1 source)Syncope and collapse; Translations: [SYNCOPE AND COLLAPSE]Onset: 96-50-8512YxgdnyxcPbigbelcaaaw (1 source)CONTACT W/AND (SUSP) EXPOS COVID-19; Translations: [CONTACT W/AND (SUSP) EXPOS COVID-19]Onset: 06-25-2022 Results Test NameValueInterpretationReference RangeFacilitySTREP GP B CULTURE+RFLXon 90-74-4381EWIKE GP B CULTURE+RFLX Strep Gp B Culture+Rflx [facility] HealthcareSTREP GP B CULTURE+RFLXNegativeNOMS HealthcareSTREP GP B CULTURE+RFLXCenters for Disease Control and Prevention (CDC) andNOMS Healthcare STREP GP B CULTURE+RFLXAmerican Congress of Obstetricians and GynecologistsNOMS HealthcareSTREP GP B CULTURE+RFLX(ACOG) guidelines for prevention of group BNOMS HealthcareSTREP GP B CULTURE+RFLXstreptococcal (GBS) disease specify co-collection ofNOMS HealthcareSTREP GP B CULTURE+RFLXa vaginal and rectal swab specimen to maximizeNOMS HealthcareSTREP GP B CULTURE+RFLXsensitivity of GBS detection. Per the CDC and ACOG,[facility] HealthcareSTREP GP B CULTURE+RFLXswabbing both the lower vagina and rectumNOMS HealthcareSTREP GP B CULTURE+RFLX substantially increases the yield of detectionNOMS HealthcareSTREP GP B CULTURE+RFLXcompared with sampling the vagina alone.[facility] HealthcareSTREP GP B CULTURE+RFLXPenicillin G, ampicillin, or cefazolin are indicatedNOMS Healthcare STREP GP B CULTURE+RFLXfor intrapartum prophylaxis of GBSNOMS HealthcareSTREP GP B CULTURE+RFLXcolonization. Reflex susceptibility testing should beNOMS HealthcareSTREP GP B CULTURE+RFLXperformed prior to use of clindamycin only on GBSNOMS HealthcareSTREP GP B CULTURE+RFLXisolates from penicillin-allergic women who areNOMS HealthcareSTREP GP B CULTURE+RFLX considered a high risk for anaphylaxis. Treatment withNOMS HealthcareSTREP GP B CULTURE+RFLXvancomycin without additional testing is warranted ifNOMS Healthcare STREP GP B CULTURE+RFLXresistance to clindamycin is noted.[facility] HealthcareSTREP GP B CULTURE+RFLXPerformed at: CB - [facility]NOTN HealthcareSTREP GP B CULTURE+[id number] [place], [place] [id number] HealthcareSTREP GP B CULTURE+RFLXLab Director: Raimundo Cardenas PhD, Phone: [phone] HealthcareCLINISYNCNCLEVELAND [facility] [place] HealthcareUrinalysis macro (dipstick) panel (U)on 49-01-1709Maroolkgl, UANegativeNegative - 4(70) +++ mg/dLNOMS HealthcareBlood, UANegativeNegative - 50 Blayne/mcLNOMS HealthcareClarity, UACloudyNOMS Healthcare Color, UAAmberNOMS HealthcareGlucose, UANegativeNegative - 1999(110) ++++ mg/dL N[facility] HealthcareInterpretation and review of laboratory resultsAbnormalNOMS HealthcareKetones, UANegativeNegative - 160(16) ++++ mg/dLNOMS Healthcare Leukocytes, UA2+Negative - 500+++ Jo/mcLNOMS HealthcareNitrite, UANegative Negative - PositiveNOMS HealthcarepH, UA6.05 - 9NOMS HealthcareProtein, UA1+ Negative - 1999(20) ++++ mg/dLNOMS HealthcareSpec Grav, UA1.0201 - 1.03NOMS HealthcareUrobilinogen, UA1.00.2 - 12 mg/dLNOMS HealthcareNOMS Healthcare Urinalysis macro (dipstick) panel (U)on 89-57-5924Qruupldrm, UANegativeNegative - 4(70) +++ mg/dLNOMS HealthcareBlood, UANegativeNegative - 50 Blayne/mcLNOMS HealthcareClarity, UAClearNOMS HealthcareColor, UAYellowNOMS HealthcareGlucose, UANegativeNegative - 2000(110) ++++ mg/dLNOMS HealthcareInterpretation and review of laboratory resultsAbnormalNOMS HealthcareKetones, UAPositiveNegative - 160(16) ++++ mg/dLNOMS HealthcareLeukocytes, UA3+Negative - 500+++ Jo/mcLNOTN HealthcareNitrite, UANegativeNegative - PositiveNOMS HealthcarepH, UA6.05 - 9 NOMS HealthcareProtein, UANegativeNegative - 2000(20) ++++ mg/dLNOMS Healthcare Spec Grav, UA1.0151 - 1.03NOMS HealthcareUrobilinogen, UA1.00.2 - 12 mg/dLNOMS HealthcareNOMS HealthcareUrinalysis macro (dipstick) panel (U)on 05-13-2025 Bilirubin, UANegativeNegative - 4(70) +++ mg/dLNOTN HealthcareBlood, UANegative Negative - 50 Blayne/mcLNOTN HealthcareClarity, UAClearNOTN HealthcareColor, UA YellowNOTN HealthcareGlucose, UANegativeNegative - 2000(110) ++++ mg/dLNOTN HealthcareInterpretation and review of laboratory resultsAbnormalKansas City VA Medical Center Ketones, UANegativeNegative - 160(16) ++++ mg/dLK[facility] HealthcareLeukocytes, UA1+ Negative - 500+++ Jo/mcLNOTN HealthcareNitrite, UANegativeNegative - Positive NOMS HealthcarepH, UA65 - 9NOMS HealthcareProtein, UATraceNegative - 2000(20) ++++ mg/dLNOTN HealthcareSpec Grav, UA1.031 - 1.03NOTN HealthcareUrobilinogen, UA2.00.2 - 12 mg/dLNOTN HealthcareNOMS HealthcareALL CBC WITH AUTO DIFFon 43-61-0845MPVVVIGHK ABSOLUTE COVU2PVSHKansas City VA Medical CenterBasophils/100 WBC (Bld)0.3 %0.2 - 2.0 %[facility] CenterEosinophils/100 WBC (Bld)0.9 %0.9 - 7.0 %[facility] Erythrocyte distribution width (RBC) [Ratio]11.9 %11.0 - 15.0 %[facility] Hematocrit (Bld) [Volume fraction]34.5 %Low36.0 - 48.0 %[facility] Hemoglobin (Bld) [Mass/Vol]12.6 g/dL12.0 - 16.0 g/dLKansas City VA Medical CenterIMMATURE GRANULOCYTES ABS AUTO0.17HighKansas City VA Medical CenterImmature granulocytes/100 WBC (Bld) 1.8 %High0.0 - 0.5 %[facility] CenterInterpretation and review of laboratory resultsAbnormLehigh Valley Health NetworkLYMPHOCYTES ABSOLUTE AUTO1.7[facility] Lymphocytes/100 WBC (Bld)17.7 %Low20.5 - 60.0 %[facility] HospitalH (RBC) [Entitic mass]32 pg26.7 - 34.0 pgSamaritan HospitalHC (RBC) [Mass/Vol]36.5 g/pGPcvp46.9 - 35.2 g/dLSamaritan HospitalV (RBC) [Entitic vol]87.6 fL81.0 - 99.0 fLKansas City VA Medical CenterMONOCYTES ABSOLUTE AUTO0.9HighKansas City VA Medical CenterMonocytes/100 WBC (Bld)9 %1.7 - 12.0 %[facility] CenterNEUTROPHILS ABSOLUTE AUTO6.8HighKansas City VA Medical Center Neutrophils/100 WBC (Bld)70.3 %43.0 - 75.0 %[facility] CenterPlatelet mean volume (Bld) [Entitic vol]11.3 fL9.5 - 13.5 fLKansas City VA Medical CenterTB EO #0.1[facility] TBH BYH512ZFCSHeartland Behavioral Health ServicesTB RBC3.94LowNOHeartland Behavioral Health ServicesTBH WBC9.7[facility] CLINISYNCKansas City VA Medical CenterUrinalysis macro (dipstick) panel (U)on 04-29-2025 Bilirubin, UANegativeNegative - 4(70) +++ mg/dLKANE COUNTY HUM[facility] RESOURCE SSD HealthcareBlood, UANegative Negative - 50 Blayne/mcLKANE COUNTY HUMAN RESOURCE SSD HealthcareClarity, UAClearNOTN HealthcareColor, UA YellowNOMS HealthcareGlucose, UANegativeNegative - 1999(110) ++++ mg/dLK[facility] COUNTY [facility] SSD HealthcareInterpretation and review of laboratory resultsNoCoatesville Veterans Affairs Medical Center Ketones, UANegativeNegative - 160(16) ++++ mg/dLK[facility] COUNTY [facility] SSD HealthcareLeukocytes, UA NegativeNegative - 500+++ Jo/mcLNOTN HealthcareNitrite, UANegativeNegative - PositiveNOMS HealthcarepH, UA65 - 9NOMS HealthcareProtein, UA1+Negative - 2000(20) ++++ mg/dLK[facility] COUNTY HUM[facility] RESOURCE SSD HealthcareSpec Grav, UA1.021 - 1.03NOHeartland Behavioral Health Services Urobilinogen, UA1.00.2 - 12 mg/dLNOHeartland Behavioral Health ServicesNOTN HealthcareUrinalysis macro (dipstick) panel (U)on 35-12-1595Ivsseqeka, UANegativeNegative - 4(70) +++ mg/dL [facility] HealthcareBlood, UANegativeNegative - 50 Blayne/mcLNOMS HealthcareClarity, UA ClearNOMS HealthcareColor, UAYellowNOMS HealthcareGlucose, UANegativeNegative - 1999(110) ++++ mg/dLNOMS HealthcareInterpretation and review of laboratory resultsNormalNOMS HealthcareKetones, UANegativeNegative - 160(16) ++++ mg/dLNOMS HealthcareLeukocytes, UANegativeNegative - 500+++ Jo/mcLNOTN HealthcareNitrite, UANegativeNegative - PositiveNOMS HealthcarepH, UA65 - 9N[facility]S HealthcareProtein, UANegativeNegative - 1999(20) ++++ mg/dLNOMS HealthcareSpec Grav, UA1.021 - 1.03 N[facility]S HealthcareUrobilinogen, UA0.20.2 - 12 mg/dLNOHeartland Behavioral Health ServicesNOTN Healthcare Urinalysis macro (dipstick) panel (U)on 06-43-0838Qipjkgtpx, UANegativeNegative - 4(70) +++ mg/dLNOMS HealthcareBlood, UANegativeNegative - 50 Blayne/mcLNOMS HealthcareClarity, UAClearNOMS HealthcareColor, UAYellowNOMS HealthcareGlucose, UANegativeNegative - 1999(110) ++++ mg/dLNOMS HealthcareInterpretation and review of laboratory resultsAbnormalNOTN HealthcareKetones, UANegativeNegative - 160(16) ++++ mg/dLNOMS HealthcareLeukocytes, UAPositiveNegative - 500+++ Jo/mcL N[facility] HealthcareComment on above:2+Nitrite, UANegativeNegative - PositiveNOMS HealthcarepH, UA65 - 9N[facility] HealthcareProtein, UANegativeNegative - 1999(20) ++++ mg/dLNOMS HealthcareSpec Grav, UA1.0251 - 1.03NOTN HealthcareUrobilinogen, UA0.2 0.2 - 12 mg/dLNOMS HealthcareNOTN HealthcareUS OB 14+ WEEKS ANATOMY SCANon 63-79-4542PU OB 14+ WEEKS ANATOMY SCANEXAM: US OB [...] II, MD, PHD at 26-Feb-2025 07:25:53 AM [facility]eleradiologyNormalNot AvailableComment on above:Order Comment: US OB ANATOMY SINGLE W US OB CERVICAL LENGTH Estimated Date of Delivery: 07/10/25 Gestational Age as of 01/29/2025: 12b4jBechjtqvpc macro (dipstick) panel (U)on 94-77-4778Kgluqafif, UANegativeNegative - 4(70) +++ mg/dLNOMS HealthcareBlood, UANegativeNegative - 50 Blayne/mcLNOMS HealthcareClarity, UAClearNOMS Healthcare Color, UAYellowNOMS HealthcareGlucose, UANegativeNegative - 2000(110) ++++ mg/dL [facility] HealthcareInterpretation and review of laboratory resultsNormalNOTN HealthcareKetones, UAPositiveNegative - 160(16) ++++ mg/dLN[facility] Leukocytes, UANegativeNegative - 500+++ Jo/mcLNOMS HealthcareNitrite, UA NegativeNegative - PositiveNOMS HealthcarepH, UA6.55 - 9NOMS HealthcareProtein, UANegativeNegative - 2000(20) ++++ mg/dLNOMS HealthcareSpec Grav, UA1.2051 - 1.03NOMS HealthcareUrobilinogen, UA1.00.2 - 12 mg/dLNOMS HealthcareNOMS HealthcareIGP,APTIMA HPV,AGE GDLNon 51-42-0378WWP GDLN ACOG TESTINGNote.[facility] HealthcareComment on above:TESTS RESULT FLAG UNITS REF RANGE LAB Clinician Provided Cytology Information Source.............Cervix No. of containers..01 ThinPrep Vial Age Algo ACOG Audra... FLAG LEGEND: L-Low Normal,H-High Normal,LL-Alert Low,HH-Alert High <-Panic Low,>-Panic High,A-Abnormal,AA-Critical Abnormal Performed at: 01 =G [facility] [address] [place] [address] Meseret Eden MD, IGP, RFX APTIMA HPV ASCUNote.NOMS HealthcareComment on above:TESTS RESULT FLAG UNITS REF RANGE LAB DIAGNOSIS: 02 NEGATIVE FOR INTRAEPITHELIAL LESION OR MALIGNANCY. FUNGAL ORGANISMS MORPHOLOGICALLY CONSISTENT WITH POLY SPECIES ARE PRESENT. THIS SPECIMEN WAS RESCREENED PART OF OUR GENETIC COUNSELLOR PROGRAM. Specimen adequacy: 02 Satisfactory for evaluation. No endocervical component is identified. Performed by: 02 Barbie Ceja, Fruit Bar Maker (ASCP) QC reviewed by: 02 Rhea Hoffmann, Fruit Bar Maker (ASCP) . 02 Note: Note 02 The [...] <-Panic Low,>-Panic High,A-Abnormal,AA-Critical Abnormal Performed at: [address] [address] Meseret Eden MD, Performed at: = - [facility] [id number] Conveyor Worker: Meseret Eden MD, Phone: [phone] Performed at: [facility] [id number] Conveyor Worker: Meseret Eden MD, Phone: [phone] SPATULA-ALONE CERVIX CLINISYNCNOMS HealthcareRECURRENT VAGINITIS (HTRX)on 50-21-7987MBQMDFJGY VAGINAE 26.856AbnormalNOMS HealthcareATOPOBIUM VAGINAEDetectedAbnormalNOMS Healthcare BVAB 2,3 (BACTERIAL VAGINOSIS ASSOCIATED BACTERIA 2, 3); MOBILUNCUS SPP25.681 AbnormalNOMS HealthcareBVAB 2,3 (BACTERIAL VAGINOSIS ASSOCIATED BACTERIA 2, 3); MOBILUNCUS SPPDetectedAbnormalNOMS HealthcareCANDIDA ALBICANS, PARAPSILOSIS, QJNCFCLPNC5WHRW HealthcareCANDIDA ALBICANS, PARAPSILOSIS, TROPICALISNot detected NOMS HealthcareCANDIDA RFUBQDZG3LARI HealthcareCANDIDA GLABRATANot detectedNOMS HealthcareCANDIDA VYIIWV8TYCA HealthcareCANDIDA KRUSEINot detectedNOMS HealthcareCHLAMYDIA ZEYKZBPPYFD5QMWF HealthcareCHLAMYDIA TRACHOMATISNot detected NOMS HealthcareERMB, C; MEFA18.156AbnormalNOMS HealthcareERMB, C; MEFADetected AbnormalNOMS HealthcareGARDNERELLA ZKZDAGOYK33.184AbnormalN[facility] Healthcare GARDNERELLA VAGINALISDetectedAbnormalNOMS HealthcareInterpretation and review of laboratory resultsAbnormalNOMS HealthcareMEGASPHAERA (TYPES 1, 2)0NOMS HealthcareMEGASPHAERA (TYPES 1, 2)Not detectedNOMS HealthcareMYCOPLASMA WOSKFNUSMD2TRNY HealthcareMYCOPLASMA GENITALIUMNot detectedNOMS Healthcare NEISSERIA UGUCBAMJRHU8SUIR HealthcareNEISSERIA GONORRHOEAENot detectedNOMS HealthcareTET B, TET M19.057AbnormalNOMS HealthcareTET B, TET MDetectedAbnormal NOMS HealthcareTRICHOMONAS QHDADOBXF6ZWJQ HealthcareTRICHOMONAS VAGINALISNot detectedNOMS HealthcareNOMS HealthcareBOX TESTon 76-64-7019QPY TEST SENT OUT UNITYNOTN PoaqmvmkgrRGA3PCSOFGEBM BspnjtmeotQZX749/02/2025NOTN HealthcareUNITY BOX CLINISYNCNOMS HealthcareHCG ( test) Ql (U)on 25-84-1953Diyoszncxezrqt and review of laboratory resultsAbnormalNOMS HealthcarePreg Test, UrPositive NegativeNOMS Summa HealthNOMS HealthcareUS OB TRANSVAGINALon 96-25-4896JC OB TRANSVAGINALEXAM: US OB TRANSVAGINAL HISTORY: Dating. [...] II, MD, PHD at 09-Dec-2024 08:55:08 PM [facility] TeleradiologyNormalNot AvailableComment on above:Order Comment: US OB TRANSVAGINAL No LMP recorded.Urinalysis macro (dipstick) panel (U)on 26-77-3593Vehtatawp, UA NegativeNegative - 4(70) +++ mg/dLNOMS HealthcareBlood, UAPositiveNegative - 50 Blayne/mcLNOMS HealthcareComment on above:trace-intactClarity, UAClearNOMS HealthcareColor, UAYellowNOMS HealthcareGlucose, UANegativeNegative - 2000(110) ++++ mg/dLNOTN HealthcareInterpretation and review of laboratory resultsAbnormal NOMS HealthcareKetones, UANegativeNegative - 160(16) ++++ mg/dLNOTN Healthcare Leukocytes, UATraceNegative - 500+++ Jo/mcLNOTN HealthcareNitrite, UANegative Negative - PositiveNOMS HealthcarepH, UA65 - 9NOMS HealthcareProtein, UANegative Negative - 2000(20) ++++ mg/dLNOTN HealthcareSpec Grav, UA1.021 - 1.03NOTN HealthcareUrobilinogen, UA0.20.2 - 12 mg/dLNOTN HealthcareNOTN HealthcareTBH PREG QUANT HCGon 73-99-8593DVX YWRPTGSVJRQH812tJC/mLNOMS HealthcareComment on above:5-50 0.2-1 WEEK 50-500 1-2 WEEKS 100-5,000 2-3 WEEKS 500-10,000 3-4 WEEKS 1,000-50,000 4-5 WEEKS 10,000-100,000 5-6 WEEKS 15,000-200,000 6-8 WEEKS 10,000-100,000 2-3 MONTHS CLINISYNCNOTN HealthcareALL CBC WITH AUTO DIFFon 16-64-2015IIJNFCRUQ ABSOLUTE AUTO0.1NOMS HealthcareBasophils/100 WBC (Bld)0.7 %0.2 - 2.0 %[facility] Eosinophils/100 WBC (Bld)4.9 %0.9 - 7.0 %NOMS HealthcareErythrocyte distribution width (RBC) [Ratio]11.8 %11.0 - 15.0 %NOMS HealthcareHematocrit (Bld) [Volume fraction]44.7 %36.0 - 48.0 %NOMS HealthcareHemoglobin (Bld) [Mass/Vol]15.7 g/dL 12.0 - 16.0 g/dLNOHeartland Behavioral Health ServicesIMMATURE GRANULOCYTES ABS AUTO0.02[facility] Immature granulocytes/100 WBC (Bld)0.3 %0.0 - 0.5 %NOMPhelps HealthLYMPHOCYTES ABSOLUTE AUTO3.1NOMS HealthcareLymphocytes/100 WBC (Bld)42 %20.5 - 60.0 %[facility] CenterMCH (RBC) [Entitic mass]29.5 pg26.7 - 34.0 pgNOWestern Missouri Mental Health CenterHC (RBC) [Mass/Vol]35.1 g/dL29.9 - 35.2 g/dLNOWestern Missouri Mental Health CenterV (RBC) [Entitic vol]84 fL 81.0 - 99.0 fLNOHeartland Behavioral Health ServicesMONOCYTES ABSOLUTE AUTO0.5NOHeartland Behavioral Health Services Monocytes/100 WBC (Bld)7.3 %1.7 - 12.0 %NOMPhelps HealthNEUTROPHILS ABSOLUTE AUTO 3.3NOMS HealthcareNeutrophils/100 WBC (Bld)44.8 %43.0 - 75.0 %[facility] Platelet mean volume (Bld) [Entitic vol]11.7 fL9.5 - 13.5 fLNOHeartland Behavioral Health ServicesTBH EO #0.4NOMS HealthcareTBH APP328BXEA Summa HealthTB RBC5.32NOMS Summa HealthTB WBC 7.3NOHeartland Behavioral Health ServicesCLINISYNCNOMS HealthcareHCG ( test) Ql (U)on 24-40-8334Ozza HCG ( test) Ql (U)NegativeNormalNEGProMedica Saint Francis Medical CenterComment on above:Performed By: #### 2106-3 #### [facility] ([id number]) [address] [place] [address], FIRST FLOOR [place], [place] [address]Onxfbhxp Pathologyon 84-77-5263Evlfqenc PathologyNormal [facility] Hospital - AkronComment on above:Result Comment: [facility] [address] [place] [address] Surgical Pathology Consultation Patient Name:KEMI PIPER:2005 (Age: 18)Gender:FTaken:10/03/2023eported:10/06/2023hysician(s):Alo Morgan MD ([phone])Copy To: Rec. #:[id number]: #[id number] Final Pathologic Diagnosis Gallbladder, cholecystectomy: - Chronic cholecystitis and cholesterolosis. - Benign reactive lymph node. Report Electronically Signed Out eak/10/06/2023Serena Quintanilla MD [facility], [address] [place] [address], License number: [id number]. Clinical History Biliary colic. Gross Description Received [...] margin, bisected lymph node and a retail representative section of the gallbladder neck aresubmitted in cassette A with additional sections from the gallbladder are submitted in cassette B (to include polypoid like projection). (2, ss, I98-7571, A???B, m2) ChaitanyaG [facility] [place]/04/2023EAK Specimen(s) Received Gallbladder Fee Codes(s): 1; 13637SGKBK METABOLIC PANLon 65-84-3938Mgytg gap [Moles/Vol]7 mmol/LNormal5-15 [facility] - AkronComment on above:Performed By: #### CBCA, BMP, LIVR #### [facility] ([id number]) [address], [address] [place], [place] [address]Tftqoxa [Mass/Vol]9.0 mg/dLNormal8.5-10.5PAultman HospitalComment on above:Performed By: #### DEANGELO OLIVERA, LIVR #### [facility] ([id number]) [address], [address] [place], [place] [address]Jfuvxkaz [Moles/Vol]109 mmol/VMskzji38-785UltMrotatSt. David'S Georgetown HospitalComment on above:Performed By: #### DEANGELO OLIVERA, LIVR #### [facility] ([id number]) [address], [address] [place], [place] [address]WN6 [Moles/Vol]27 mmol/CXqzcoj56-18BdiBszunmAultman Hospital Comment on above:Performed By: #### DEANGELO OLIVERA, LIVR #### [facility] ([id number]) [address], [address] [place], [place] [address]Wsqpfrwllk [Mass/Vol]0.98 mg/dLNormal0.40-1.00ProSt. David'S Georgetown HospitalComment on above:Result Comment: METHOD TRACEABLE TO IDMS STANDARD Performed By: #### DEANGELO OLIVERA, LIVR #### [facility] ([id number]) [address] [place], [place] [address]UCF/1.73 sq M.predicted among non-blacks MDRD (S/P/Bld) [Vol rate/Area]85 mL/min/{1.73_m2}Normal>59ProSt. David'S Georgetown HospitalComment on above:Result Comment: Reported eGFR is based on the CKD-EPI 1 equation that does not use a race coefficient.Performed By: #### DEANGELO OLIVERA, LIVR #### [facility] ([id number]) [address] [address] [place], [place] [address]Cpmckvm [Mass/Vol]82 mg/iQMpspgz11-26JcqMxtgetSelect Medical Specialty Hospital - [facility]ron Comment on above:Performed By: #### DEANGELO OLIVERA, LIVR #### [facility] ([id number]) [address], [address] [place], [place] [address]Myhcdblvg [Moles/Vol]4.0 mmol/LNormal3.5-5.0[facility] - AkronComment on above:Performed By: #### DEANGELO OLIVERA, LIVR #### [facility] ([id number]) [address], [address] [place], [place] [address]Mdaohv [Moles/Vol]143 mmol/IJnykwb494-217KdsVzxsua Fremont HospitalComment on above:Performed By: #### CBCAiram BMP, LIVR #### [facility] ([id number]) [address], [address] [place], [place] [address]Axgq nitrogen [Mass/Vol]7 mg/dLNormal5-23[facility] - AkronComment on above:Performed By: #### DEANGELO OLIVERA, LIVR #### [facility] ([id number]) [address], [address] [place] [address]Rgqil Metabolic Panelon 57-40-5803Piwtx gap [Moles/Vol]7 mmol/L5 - 15 mmol/[facility] Health SystemCalcium [Mass/Vol]9.0 mg/dL8.5 - 10.5 mg/dL [facility] SystemChloride [Moles/Vol]109 mmol/L98 - 109 mmol/[facility] Health SystemCO2 [Moles/Vol]27 mmol/L22 - 32 mmol/Critical access hospitaloMednortheast al[facility] Health System Creatinine [Mass/Vol]0.98 mg/dL0.40 - 1.00 mg/dLSelect Medical OhioHealth Rehabilitation Hospital - DublinComment on above:METHOD TRACEABLE TO IDTN STANDARDeGFR (CKD-EPI)non-race ahnffjvpc06- [facility] Memorial HospitalComment on above: Reported eGFR is based on the CKD-EPI 2020 equation that does not use a race coefficient. Glucose [Mass/Vol]82 mg/dL65 - 99 mg/dLSelect Medical OhioHealth Rehabilitation Hospital - DublinPotassium [Moles/Vol]4.0 mmol/L3.5 - 5.0 mmol/LProMedica Health SystemSodium [Moles/Vol] 143 mmol/L134 - 146 mmol/Critical access hospitaloMedica Health SystemUrea nitrogen [Mass/Vol]7 mg/dL 5 - 23 mg/dLProDiley Ridge Medical CenterCBC AND AUTO DIFFon 41-88-9268OIHHWWWS BASOPHIL0.0 X10E9/LNormal0.0-0.2PAultman HospitalComment on above: Performed By: #### CBCA, BMP, LIVR #### [facility] ([id number]) [address] [facility] [address] [place], [place] [address]FUKXZVYE NEUTROPHIL2.8 X10E9/LNormal1.5-6.6ProSt. David'S Georgetown HospitalComment on above:Performed By: #### CBCA BMP, LIVR #### [facility] ([id number]) [address], [facility] [address] [place], [place] [address]Orsypekio/100 WBC (Bld)0.6 %NormalSelect Medical Specialty Hospital - Akron Comment on above:Performed By: #### CBCA, BMP, LIVR #### [facility] ([id number]) [address] [address] [place], [place] [address]Pxuyixxprsv (Bld) [#/Vol]0.2 10*3/uLNormal0.0-0.4[facility] - AkronComment on above:Performed By: #### CBCA, BMP, LIVR #### [facility] ([id number]) [address] [address] [place], [place] [address]Rwqormkiyqb/100 WBC (Bld)2.8 %NormalSelect Medical Specialty Hospital - Akron Comment on above:Performed By: #### CBCA, BMP, LIVR #### [facility] ([id number]) [address] [address] [place], [place] [address]Jxljqpqaago distribution width (RBC) [Ratio]12.2 %Normal 11.5-15.0[facility] Hospital - AkronComment on above:Performed By: #### CBCA, BMP, LIVR #### [facility] ([id number]) [address], [address] [place] [address]Hwyxgzivvp (Bld) [Volume fraction]39.7 %Acowkp24-24TsiUrspozSt. David'S Georgetown HospitalComment on above:Performed By: #### CBCA, BMP, LIVR #### [facility] ([id number]) [address], [address] [place] [address]Yyimtdxlry (Bld) [Mass/Vol]13.6 g/lDXbfjfe51.7-15.5PAultman HospitalComment on above:Performed By: #### CBCA, BMP, LIVR #### [facility] ([id number]) [address], [address] [place] [address]Zvaoobthwqa (Bld) [#/Vol]2.2 10*3/uLNormal1.0-3.5PAultman HospitalComment on above:Performed By: #### CBCA, BMP, LIVR #### [facility] ([id number]) [address], [address] [place], [place] [address]Pkbogfbzbjc/100 WBC (Bld)38.4 %NormalSelect Medical Specialty Hospital - [facility]ron Comment on above:Performed By: #### CBCA, BMP, LIVR #### [facility] ([id number]) [address], [address] [place], [place] [address]ACO (RBC) [Entitic mass]29.6 qcKoxhtl22-56RzrFeevzySt. David'S Georgetown HospitalComment on above:Performed By: #### CBCA, BMP, LIVR #### [facility] ([id number]) [address] [address] [place], [place] [address]OMLI (RBC) [Mass/Vol]34.3 g/tVZwscme00-81VjcAcdhtrSt. David'S Georgetown HospitalComment on above:Performed By: #### CBCA, BMP, LIVR #### [facility] ([id number]) [address], [address] [place], [place] [address]TGS (RBC) [Entitic vol]87 mEMjznen04-044PsgTkuaon Fremont HospitalComment on above:Performed By: #### CBCA, BMP, LIVR #### [facility] ([id number]) [address], [address] [place], [place] [address]Vsqxnhuec (Bld) [#/Vol]0.5 10*3/uLNormal0-0.9[facility] - AkronComment on above:Performed By: #### CBCA, BMP, LIVR #### [facility] ([id number]) [address], [address] [place], [place] [address]Iyxoeegue/100 WBC (Bld)9.2 %NormalSelect Medical Specialty Hospital - [place] Comment on above:Performed By: #### CBCA, BMP, LIVR #### [facility] ([id number]) [address], [address] [place] [address]Gnjstljfjdl/100 WBC (Bld)49.0 %NormalSelect Medical Specialty Hospital - [place] Comment on above:Performed By: #### CBCA, BMP, LIVR #### [facility] ([id number]) [address], [address] [place] [address]Asbakchf mean volume (Bld) [Entitic vol]10.8 fLNormal7-12 ProMCHoNC Pediatric HospitalComment on above:Performed By: #### CBCA, BMP, LIVR #### [facility] ([id number]) [address], [address] [place] [address]Kzjncqikx (Bld) [#/Vol]212 10*3/pXAjekcq323-919DceKuaoht Fremont HospitalComment on above:Performed By: #### CBCA, BMP, LIVR #### [facility] ([id number]) [address], [address] [place] [address]DGJ COUNT4.60 X10E12/LNormal3.80-5.20[facility] Comment on above:Performed By: #### CBCA, BMP, LIVR #### [facility] ([id number]) [address], [address] [place], [place] [address]EIJ (Bld) [#/Vol]5.7 10*3/uLNormal4.0-11.0[facility] Hospital - AkronComment on above:Performed By: #### CBCA, BMP, LIVR #### [facility] ([id number]) [address], [address] [place], [place] [address]PJU auto differentialon 42-07-8015Wblzdfphv (Bld) [#/Vol]0.0 10*3/uLSelect Medical OhioHealth Rehabilitation Hospital - DublinBasophils/100 WBC (Bld)0.6 %[facility] Hospital - DublinEosinophils (Bld) [#/Vol]0.2 10*3/uLSelect Medical OhioHealth Rehabilitation Hospital - DublinEosinophils/100 WBC (Bld)2.8 %[facility] Hospital - DublinErythrocyte distribution width (RBC) [Ratio]12.2 %11.5 - 15.0 %[facility] Hospital - DublinHematocrit (Bld) [Volume fraction]39.7 %35 - 47 %[facility] Hospital - DublinHemoglobin (Bld) [Mass/Vol]13.6 g/dL11.7 - 15.5 g/dLSelect Medical OhioHealth Rehabilitation Hospital - DublinLymphocytes (Bld) [#/Vol]2.2 10*3/uL [facility] - DublinLymphocytes/100 WBC (Bld)38.4 %[facility] SystemH (RBC) [Entitic mass]29.6 pg27 - 34 [facility] HospitalMCHC (RBC) [Mass/Vol]34.3 g/dL32 - 36 g/dLSelect Medical OhioHealth Rehabilitation Hospital - DublinMCV (RBC) [Entitic vol]87 fL80 - 100 [facility] CenterMonocytes (Bld) [#/Vol]0.5 10*3/uLSelect Medical OhioHealth Rehabilitation Hospital - DublinMonocytes/100 WBC (Bld)9.2 %[facility] Hospital SystemNeutrophils (Bld) [#/Vol]2.8 10*3/[facility] Specialty HospitalNeutrophils/100 WBC (Bld)49.0 % [facility] Hospital SystemPlatelet mean volume (Bld) [Entitic vol]10.8 fL7 - 12 fL [facility] SystemPlatelets (Bld) [#/Vol]212 10*3/[facility] RBC (Bld) [#/Vol]4.60 10*6/[facility] HospitalWBC corrected for nucl RBC Auto (Bld) [#/Vol]5.7[facility] SystemECG 12 leadon [id number] Health SystemLIVER PANELon [id number] [Mass/Vol]4.4 g/dLNormal3.2-5.3PAultman HospitalComment on above: Performed By: #### CBCA, BMP, LIVR #### [facility] ([id number]) [address], [address] [place], [place] [address]ANC [Catalytic activity/Vol]65 U/MZruzye80-279KipZfaomhSelect Medical Specialty Hospital - AkronComment on above:Performed By: #### CBCA, BMP, LIVR #### [facility] ([id number]) [address], [address] [place], [place] [address]DYN [Catalytic activity/Vol]18 U/LNormal0-31PAultman HospitalComment on above:Performed By: #### CBCA, BMP, LIVR #### [facility] ([id number]) [address], [address] [place], [place] [address]BMA [Catalytic activity/Vol]16 U/LNormal0-41Select [facility] Hospital - AkronComment on above:Performed By: #### CBCA, BMP, LIVR #### [facility] ([id number]) [address], [address] [place], [place] [address]Pnlxqcpdu [Mass/Vol]0.5 mg/dLNormal0.3-1.2PAultman HospitalComment on above:Performed By: #### CBCA, BMP, LIVR #### [facility] ([id number]) [address], [address] [place], [place] [address]Navgxoemn.direct [Mass/Vol]0.2 mg/dLNormal0.0-0.4ProSt. David'S Georgetown HospitalComment on above:Performed By: #### CBCA, BMP, LIVR #### [facility] ([id number]) [address] [address] [place], [place] [address]Eqzzlgo [Mass/Vol]6.6 g/dLNormal6.0-8.0ProSt. David'S Georgetown HospitalComment on above:Performed By: #### CBCA, BMP, LIVR #### [facility] ([id number]) [address], [address] [place], [place] [address]Zdnji panelon [id number] [Mass/Vol]4.4 g/dL3.2 - 5.3 g/dL [facility] SystemALP [Catalytic activity/Vol]65 U/L39 - 130 U/LPrMemorial Hospital North Health SystemALT No additional P-5'-P [Catalytic activity/Vol]18 U/L0 - 31 U/L [facility] SystemAST [Catalytic activity/Vol]16 U/L0 - 41 U/LPrSelect Medical Specialty Hospital - [facility] SystemBilirubin [Mass/Vol]0.5 mg/dL0.3 - 1.2 mg/dLSelect Medical [facility] Bilirubin.direct [Mass/Vol]0.2 mg/dL0.0 - 0.4 mg/dLJoint Township District [facility] System Protein [Mass/Vol]6.6 g/dL6.0 - 8.0 g/dLJoint Township District Memorial Hospital SystemNo Panel Informationon [id number] Health SystemXR Chest PA and Lateralon [id number] Bolaños MD - 09/28/2023 Procedure: Chest x-ray performed Number of views:2 History:Preop asthma Comparison:None Findings: The heart and lungs show no acute findings, and the mediastinum and manasa are grossly negative . Impression: 1. No acute change. Finalized by Umesh Bolaños MD on 09/28/2023 10:05 AM [facility] DublinRadiology Study observation (narrative)[facility] HospitalGrooveshark [facility] Ontonagon HospitalXR Chest PA and LateralOrdered By: Umesh Bolaños on [id number] Surgical Hospital at [facility]woods Work Phone: Basic Metab w/rfx MGon 03-54-5044Zphkr gap [Moles/Vol] 8 mmol/LLow9-17Samaritan HospitalComment on above:Performed By: #### BMPX, CDP #### [employer] [address] [place] [address] Conveyor Worker: CHUY Johnsonalcium [Mass/Vol]8.3 mg/dLLow8.6-10.4Samaritan HospitalComment on above:Performed By: #### BMPX, CDP #### [employer] [address] [place] [address] Conveyor Worker: CHUY Johnsonhloride [Moles/Vol]107 mmol/MZhhjhy58-666JfpwsSamaritan HospitalComment on above:Performed By: #### BMPX, CDP #### [employer] [address] [place] [address] Conveyor Worker: Quirino Valladares MDCO2 [Moles/Vol]24 mmol/BHvlscg51-07FvbkxSamaritan HospitalComment on above:Performed By: #### BMPX, CDP #### [employer] [address] [place] [address] Conveyor Worker: Quirino Valladares MDCreatinine [Mass/Vol]0.9 mg/dLNormal0.5-0.9Samaritan HospitalComment on above:Performed By: #### BMPX, CDP #### [employer] [address] [place] [address] Conveyor Worker: Quirino Valladares MDGFR/1.73 sq M.predicted among non-blacks MDRD (S/P/Bld) [Vol rate/Area]mL/min/{1.73_m2}Normal>60Samaritan HospitalComment on above:Result Comment: These results are [...] tubular secretion.Performed By: #### BMPX, CDP #### [employer] [address] [place] [address] Conveyor Worker: Quirino Valladares MDGlucose [Mass/Vol]88 mg/dXIauoux67-38HuqfqGlendale Adventist Medical CenterComment on above:Performed By: #### BMPX, CDP #### [employer] [address] [place] [address] Conveyor Worker: Quirino Valladares MDPotassium [Moles/Vol]3.6 mmol/LLow3.7-5.3MGlendale Adventist Medical CenterComment on above:Performed By: #### BMPX, CDP #### [employer] [address] [place] [address] Conveyor Worker: Quirino Valladares MDSodium [Moles/Vol]139 mmol/EMhjpyx096-730HjuqhSamaritan HospitalComment on above:Performed By: #### BMPX, CDP #### [employer] [address] [place] [address] Conveyor Worker: Quirino Valladares MDUrea nitrogen [Mass/Vol]9 mg/dLNormal6-20Samaritan HospitalComment on above:Performed By: #### BMPX, CDP #### [facility] [employer] [address] [place] [address] Conveyor Worker: HARRISON Johnson with Diffon [id number]. Basophil0.04 k/uL Normal0.00-0.20Samaritan HospitalComment on above:Performed By: #### BMPX, CDP #### [address] [address] Conveyor Worker: Marta Johnson.Imm.Granulocyte<0.02Ffxcvl2.00-0.30Samaritan HospitalComment on above:Performed By: #### BMPX, CDP #### [address] [address] Conveyor Worker: Marta Johnson.Neutrophil (Seg)2.46 k/uLNormal1.80-8.00 Samaritan HospitalComment on above:Performed By: #### BMPX, CDP #### [address] [address] Conveyor Worker: Quirino Valladares MDBasophils/100 WBC (Bld)1 %Normal0-2MGlendale Adventist Medical CenterComment on above:Performed By: #### BMPX, CDP #### [place] [address] Conveyor Worker: Quirino Valladares MDEosinophils (Bld) [#/Vol]0.11 10*3/uLNormal 0.00-0.44Sam[facility]itan HospitalComment on above:Performed By: #### BMPX, CDP #### [address] [address] Conveyor Worker: WM Johnsonosinophils/100 WBC (Bld)2 %Normal1-4Samaritan HospitalComment on above:Performed By: #### BMPX, CDP #### [address] [address] Conveyor Worker: Quirino Valladares MDErythrocyte distribution width (RBC) [Ratio]11.9 %Kdfnlk55.8-14.4Samaritan HospitalComment on above:Performed By: #### BMPX, CDP #### [place] [address] Conveyor Worker: Quirino Valladares MDHematocrit (Bld) [Volume fraction]36.8 %Normal 36.3-47.1MGlendale Adventist Medical CenterComment on above:Performed By: #### BMPX, CDP #### [place] [address] Conveyor Worker: Quirino Valladares MDHemoglobin (Bld) [Mass/Vol]12.6 g/dLNormal 11.9-15.1MGlendale Adventist Medical CenterComment on above:Performed By: #### BMPX, CDP #### [place] [address] Conveyor Worker: Quirino Valladares MDImmature granulocytes/100 WBC (Bld)0 %Normal0 [facility]aritan HospitalComment on above:Performed By: #### BMPX, CDP #### [place] [address] Conveyor Worker: Quirino Valladares MDLymphocytes (Bld) [#/Vol]2.61 10*3/uLNormal 1.20-5.20[facility]itan HospitalComment on above:Performed By: #### BMPX, CDP #### [address] [address] Conveyor Worker: Roland Johnsonmphocytes/100 WBC (Bld)45 %Xgsevt70-16FztmcSamaritan HospitalComment on above:Performed By: #### BMPX, CDP #### [address] [place] [address] Conveyor Worker: HESHAM JohnsonCH (RBC) [Entitic mass]29.6 ldRdcfrg02.2-33.5 [facility]itan HospitalComment on above:Performed By: #### BMPX, CDP #### [facility] [employer] [address] [place] [address] Conveyor Worker: HESHAM JohnsonCHC (RBC) [Mass/Vol]34.2 g/wEPextoe23.4-34.8 [facility]itan HospitalComment on above:Performed By: #### BMPX, CDP #### [facility] [address] [place] [address] Conveyor Worker: HESHAM JohnsonCV (RBC) [Entitic vol]86.4 eRAhadri44.6-102.9 [facility]itan HospitalComment on above:Performed By: #### BMPX, CDP #### [address] [address] Conveyor Worker: HESHAM Johnsononocytes (Bld) [#/Vol]0.52 10*3/uLNormal 0.10-1.40Samaritan HospitalComment on above:Performed By: #### BMPX, CDP #### [facility] [address] [place] [address] Conveyor Worker: HESHAM Johnsononocytes/100 WBC (Bld)9 %High2-8Samaritan HospitalComment on above:Performed By: #### BMPX, CDP #### [facility] [address] [place] [address] Conveyor Worker: Quirino Valladares MDNeutrophil (Seg)43 %Wyjphz68-10ZdemcSamaritan HospitalComment on above:Performed By: #### BMPX, CDP #### [facility] [address] [place] [address] Conveyor Worker: Quirino Valladares MDNRDILLON Automated0.0 per 100 WBCNormal0.0Samaritan HospitalComment on above:Performed By: #### BMPX, CDP #### [facility] [employer] [address] [place] [address] Conveyor Worker: Sonja Johnson mean volume (Bld) [Entitic vol]12.3 fL Normal8.1-13.5Sam[facility]itan HospitalComment on above:Performed By: #### BMPX, CDP #### [facility] [employer] [address] [place] [address] Conveyor Worker: Kayli Johnsontemarco (Bld) [#/Vol]210 10*3/pTTzsawd854-359 [facility]itan HospitalComment on above:Performed By: #### BMPX, CDP #### [address] [address] Conveyor Worker: Quirino Valladares MDRBC (Bld) [#/Vol]4.26 10*6/uLNormal3.95-5.11 [facility]itan HospitalComment on above:Performed By: #### BMPX, CDP #### [address] [address] Conveyor Worker: KALPANA Johnson (Bld) [#/Vol]5.8 10*3/uLNormal4.5-13.5[facility]itan HospitalComment on above:Performed By: #### BMPX, CDP #### [facility] [employer] [address] [place] [address] Conveyor Worker: Jessie Johnson Metab w/rfx MGon 03-86-2010Dkzwdygyw [Moles/Vol]3.5 mmol/LLow3.7-5.3MGlendale Adventist Medical CenterComment on above: Performed By: #### CDP, BMPX, MG #### [facility] [address] [place] [address] Conveyor Worker: Quirino Valladares MDAnion gap [Moles/Vol]8 mmol/LLow9-17[facility]itan HospitalComment on above:Performed By: #### CDP, BMPX, MG #### [facility] [address] [place] [address] Conveyor Worker: CHUY Johnsonalcium [Mass/Vol]8.8 mg/dLNormal8.6-10.4[facility]itan HospitalComment on above:Performed By: #### CDP, BMPX, MG #### [facility] [address] [place] [address] Conveyor Worker: Quirino Valladares MDChloride [Moles/Vol]105 mmol/QGqajli57-197HwtiiSamaritan HospitalComment on above:Performed By: #### CDP, BMPX, MG #### [facility] [address] [place] [address] Conveyor Worker: Quirino Valladares MDCO2 [Moles/Vol]23 mmol/BTwxiif99-38TszyySamaritan HospitalComment on above:Performed By: #### CDP, BMPX, MG #### [facility] [address] [place] [address] Conveyor Worker: CHUY Johnsonreatinine [Mass/Vol]0.8 mg/dLNormal0.5-0.9[facility]itan HospitalComment on above:Performed By: #### CDP, BMPX, MG #### [employer] [address] [place] [address] Conveyor Worker: Quirino Valladares MDGFR/1.73 sq M.predicted among non-blacks MDRD (S/P/Bld) [Vol rate/Area]mL/min/{1.73_m2}Normal>60MerGardens Regional Hospital & Medical Center - Hawaiian GardensComment on above:Result Comment: These results are not [...] that affects renal tubular secretion.Performed By: #### CDP, BMPX, MG #### [facility] [address] [place] [address] Conveyor Worker: Quirino Valladares MDGlucose [Mass/Vol]73 mg/aHGlnekq67-31IyjajGlendale Adventist Medical CenterComment on above:Performed By: #### CDP, BMPX, MG #### [facility] [address] [place] [address] Conveyor Worker: ELIECER Johnsonodium [Moles/Vol]136 mmol/LJfblzw572-202LansdSamaritan HospitalComment on above:Performed By: #### CDP, BMPX, MG #### [facility] [address] [place] [address] Conveyor Worker: Quirino Valladares MDUrea nitrogen [Mass/Vol]7 mg/dLNormal6-20[facility] HospitalComment on above:Performed By: #### CDP, BMPX, MG #### [facility] [place] [address] Conveyor Worker: Quirino Valladares [facility] with Diffon [id number]. Basophil0.03 k/uL Normal0.00-0.20[facility]itan HospitalComment on above:Performed By: #### CDP, BMPX, MG #### [facility] [address] [place] [address] Conveyor Worker: Marta Johnson.Imm.Granulocyte<0.81Mptdin3.00-0.30[facility] HospitalComment on above:Performed By: #### CDP, BMPX, MG #### [address] [address] Conveyor Worker: Marta Johnson.Neutrophil (Seg)2.17 k/uLNormal1.80-8.00 [facility] HospitalComment on above:Performed By: #### CDP, BMPX, MG #### [place] [address] Conveyor Worker: Quirino Valladares MDBasophils/100 WBC (Bld)1 %Normal0-2MGlendale Adventist Medical CenterComment on above:Performed By: #### CDP, BMPX, MG #### [place] [address] Conveyor Worker: Quirino Valladares MDEosinophils (Bld) [#/Vol]0.08 10*3/uLNormal 0.00-0.44[facility] HospitalComment on above:Performed By: #### CDP, BMPX, MG #### [place] [address] Conveyor Worker: WM Johnsonosinophils/100 WBC (Bld)2 %Normal1-4[facility]itan HospitalComment on above:Performed By: #### CDP, BMPX, MG #### [place] [address] Conveyor Worker: Quirino Valladares MDErythrocyte distribution width (RBC) [Ratio]11.9 %Zhlxxw63.8-14.4[facility]itan HospitalComment on above:Performed By: #### CDP, BMPX, MG #### [place] [address] Conveyor Worker: Quirino Valladares MDHematocrit (Bld) [Volume fraction]40.0 %Normal 36.3-47.1MGlendale Adventist Medical CenterComment on above:Performed By: #### CDP, BMPX, MG #### [facility] [address] [place] [address] Conveyor Worker: Quirino Valladares MDHemoglobin (Bld) [Mass/Vol]13.6 g/dLNormal 11.9-15.1MGlendale Adventist Medical CenterComment on above:Performed By: #### CDP, BMPX, MG #### [facility] [address] [place] [address] Conveyor Worker: Quirino Valladares MDImmature granulocytes/100 WBC (Bld)0 %Normal0 [facility]itan HospitalComment on above:Performed By: #### CDP, BMPX, MG #### [address] [address] Conveyor Worker: Quirino Valladares MDLymphocytes (Bld) [#/Vol]1.69 10*3/uLNormal 1.20-5.20[facility] HospitalComment on above:Performed By: #### CDP, BMPX, MG #### [address] [address] Conveyor Worker: Quirino Valladares MDLymphocytes/100 WBC (Bld)38 %Fbuldg22-06EhdqeSamaritan HospitalComment on above:Performed By: #### CDP, BMPX, MG #### [address] [address] Conveyor Worker: HESHAM JohnsonCH (RBC) [Entitic mass]29.6 lnTwyipy29.2-33.5 [facility] HospitalComment on above:Performed By: #### CDP, BMPX, MG #### [facility] [address] [place] [address] Conveyor Worker: HESHAM JohnsonCHC (RBC) [Mass/Vol]34.0 g/gXKwntrq76.4-34.8 [facility] HospitalComment on above:Performed By: #### CDP, BMPX, MG #### [place] [address] Conveyor Worker: HESHAM JohnsonCV (RBC) [Entitic vol]87.0 hTJcnpel53.6-102.9 [facility] HospitalComment on above:Performed By: #### CDP, BMPX, MG #### [facility] [address] [place] [address] Conveyor Worker: HESHAM Johnsononocytes (Bld) [#/Vol]0.47 10*3/uLNormal 0.10-1.40[facility] HospitalComment on above:Performed By: #### CDP, BMPX, MG #### [place] [address] Conveyor Worker: HESHAM Johnsononocytes/100 WBC (Bld)11 %High2-8[facility]itan HospitalComment on above:Performed By: #### CDP, BMPX, MG #### [place] [address] Conveyor Worker: Jade Johnsonutrophil (Seg)48 %Alasxz66-93OmttqSamaritan HospitalComment on above:Performed By: #### CDP, BMPX, MG #### [place] [address] Conveyor Worker: Quirino Valladares MDNRBC Automated0.0 per 100 WBCNormal0.0[facility]itan HospitalComment on above:Performed By: #### CDP, BMPX, MG #### [facility] [address] [place] [address] Conveyor Worker: BILL Johnsonlatelet mean volume (Bld) [Entitic vol]11.8 fL Normal8.1-13.5[facility] HospitalComment on above:Performed By: #### CDP, BMPX, MG #### [facility] [address] [place] [address] Conveyor Worker: Alistair Johnson ([facility]) [#/Vol]214 10*3/zTUmfcdr914-185 [facility] HospitalComment on above:Performed By: #### CDP, BMPX, MG #### [facility] [address] [place] [address] Conveyor Worker: HECTOR Johnson ([facility]) [#/Vol]4.60 10*6/uLNormal3.95-5.11 [facility] HospitalComment on above:Performed By: #### CDP, BMPX, MG #### [facility] [address] [place] [address] Conveyor Worker: KALPANA Johnson ([facility]) [#/Vol]4.4 10*3/uLLow4.5-13.5[facility] HospitalComment on above:Performed By: #### SHYAM, BMPX, MG #### [facility] [address] [place] [address] Conveyor Worker: Quirino Valladares MDLamotrigineon 56-34-7843Hgymycetyti<1.0Low 3.0-15.0[facility]itan HospitalComment on above:Result Comment: Neither a therapeutic [...] be needed.Performed By: #### LAMO #### [facility] [address] [place] [address] Conveyor Worker: Mohsen Johnsongnesiumon 87-19-8457Cbaacwjwb [Mass/Vol]2.0 mg/dLNormal1.6-2.6[facility] Center Of San JoseComment on above:Performed By: #### CDP, BMPX, MG #### [address] [place] [address] Conveyor Worker: HECTOR JohnsonAD - Ultrasound Reporton [id number] - Ultrasound [id number]#1.00TIFDayton VA Medical CenterPhysician Referralon [id number] Referral [id number]#1.00TIFDayton VA Medical CenterCBC W MANUAL DIFFon 66-80-4651VSFDSCRLNIJDMAAJKFGbedhwHpk [facility]vue HospitalComment on above:Performed By: #### DOUG #### [facility] [address] [place] [address] Dr. Juan Jose Dangelo LYMPH #0.36 103/ulNormalThMarymount HospitalComment on above:Performed By: #### DOUG #### [facility] [address] [place] [address] Dr. Juan Jose Dangelo LYMPH %4 %NormalChildren'S Hospital Of ColumbusComment on above: Performed By: #### DOUG #### [facility] [address] [place] [address] Dr. Juan Jose Shepard #0.0 103/ulNormal0.0-0.3The [facility] HospitalComment on above:Performed By: #### DOUG #### [facility] [address] [place] [address] Dr. Juan Jose Shepard %0 %Normal0-5The [facility] HospitalComment on above:Performed By: #### CBCJESSICA #### [facility] [address] [place] [address] Dr. Juan Jose Loza #0.09 103/ulNormal0.00-0.10The [facility] HospitalComment on above:Performed By: #### CBCJESSICA #### [facility] [address] [place] [address] Dr. Juan Jose Loza %1.0 %Normal0.2-2.0The [facility] HospitalComment on above: Performed By: #### CBCJESSICA #### [facility] [address] [place] [address] Dr. Juan Jose Gunderson #NormalThe Amboy HospitalComment on above:Performed By: #### DOUG #### [facility] [address] [place] [address] Dr. Juan Jose Gunderson %NormalThe Amboy HospitalComment on above:Performed By: #### DOUG #### [facility] [address] [place] [address] Dr. Juan Jose BandaCORRECTED WBCNormal4.0-11.0The [facility] HospitalComment on above: Performed By: #### DOUG #### [facility] [address] [place] [address] Dr. Juan Jose Lewis #0.18 103/ulNormal0.00-0.70The [facility] HospitalComment on above:Performed By: #### DOUG #### [facility] [address] [place] [address] Dr. Juan Jose Lewis%2.0 %Normal0.9-7.0The [facility] HospitalComment on above: Performed By: #### DOUG #### [facility] [address] [place] [address] Dr. Juan Jose BandaHCT34.0 %Critically low36.0-48.0The [facility] HospitalComment on above:Performed By: #### DOUG #### [facility] [address] [place] [address] Dr. Juan Jose BandaHGB11.8 g/dlCritically low12.0-16.0The [facility] HospitalComment on above:Performed By: #### CBCJESSICA #### [facility] [address] [place] [address] Dr. Juan Jose Denson #1.55 103/ulNormal1.20-3.80Children'S Hospital Of ColumbusComment on above:Performed By: #### CBCJESSICA #### [facility] [address] [address] [address] Juan Jose MartinHM%17.0 %Critically low20.5-60.0The [facility] HospitalComment on above:Performed By: #### CBCJESSICA #### [facility] [address] [address] [address] Juan Jose ToureH29.0 foPoklft76.7-34.0The [facility] HospitalComment on above: Performed By: #### CBCJESSICA #### [facility] [address] [address] [address] Juan Jose ToureHC34.7 g/mkXjnohv69.9-35.2The [facility] HospitalComment on above:Performed By: #### DOUG #### [facility] [address] [address] [address] Juan Jose ToureV83.5 yIPkrjrs94.0-99.0Children'S Hospital Of ColumbusComment on above: Performed By: #### CBCJESSICA #### [facility] [address] [address] [address] Juan Jose GrayOCYTE #NormalChildren'S Hospital Of ColumbusComment on above: Performed By: #### DOUG #### [facility] [address] [place] [address] Dr. Juan Jose GrayOCYTE %NormalThe [facility] HospitalComment on above: Performed By: #### CBCJESSICA #### [facility] [address] [place] [address] Dr. Juan Jose BandaMICROCYTOSISSLIGHTNoOhio Valley Hospitale [facility] HospitalComment on above: Performed By: #### CBCJESSICA #### [facility] [address] [place] [address] Dr. Juan Jose Marshall#1.00 103/ulCritically high0.30-0.80The [facility] on above:Performed By: #### CBCJESSICA #### [facility] [address] [place] [address] Dr. Juan Jose Marshall%11.0 %Normal1.7-12.0The [facility] HospitalComment on above: Performed By: #### DOUG #### [facility] [address] [place] [address] Dr. Juan Jose HilarioV11.2 fLNormal9.5-13.5The [facility] HospitalComment on above: Performed By: #### CBCJESSICA #### [facility] [address] [place] [address] Dr. Juan Jose Ashley #NormalChildren'S Hospital Of ColumbusComment on above:Performed By: #### DOUG #### [facility] [address] [place] [address] Dr. Juan Jose Ashley %NormalThe [facility] HospitalComment on above:Performed By: #### DOUG #### [facility] [address] [place] [address] Dr. Juan Jose BandaNRBCNormalThe [facility] HospitalComment on above:Performed By: #### DOUG #### [facility] [address] [place] [address] Dr. Juan Jose BuiT180 103/eaNeoeiz488-271Veb [facility] HospitalComascension st[facility] on above: Performed By: #### DOUG #### [facility] [address] [place] [address] Dr. Juan Jose BandaRBC4.07 106/ulCritically low4.20-5.40The [facility] HospitalComment on above:Performed By: #### DOUG #### [facility] [address] [place] [address] Dr. Juan Jose BandaRDW11.9 %Myuirb44.0-15.0The [facility] HospitalComment on above: Performed By: #### DOUG #### [facility] [address] [place] [address] Dr. Juan Jose Pierce #5.92 103/ulNormal1.40-6.50The [facility] HospitalComment on above:Performed By: #### DOUG #### [facility] [address] [place] [address] Dr. Juan Jose Pierce %65.0 %Haqkqt82.0-75.0[facility] on above: Performed By: #### CBCMAN #### [facility] [address] [place] [address] Dr. Juan Jose BandaWBC9.1 103/ulNormal4.0-11.0[facility] on above: Performed By: #### CBCMAN #### [facility] [address] [place] [address] Dr. Juan Jose BandaDRUG SCREEN RAPID (URINE)on [id number]H Children'[facility] Hospital Of ColumbusComascension st. [facility] on above:Performed By: #### URCX #### [facility] [address] [place] [address] Dr. Juan Jose CuevasNegativeCoxhealthalNEGOhio State University Wexner Medical CenterComascension st. j[facility] hospital on above: Performed By: #### URCX #### [facility] [address] [place] [address] Dr. Juan Jose ReyesPNegativeNormalNEGOhio State University Wexner Medical CenterComascension st. john hospital on above: Performed By: #### URCX #### [facility] [address] [place] [address] Dr. Juan Jose BandaBZONegativeNormalNEGOhio State University Wexner Medical CenterComascension st. john hospital on above: Performed By: #### URCX #### [facility] [address] [place] [address] Dr. Juan Jose ConnellCNegativeNormalNEGOhio State University Wexner Medical CenterComascension st. john hospital on above: Performed By: #### URCX #### [facility] [address] [place] [address] Dr. Juan Jose GarridoWVUMedicine Barnesville HospitalComment on above: Result Comment: AMP (Amphetamine): 500ng/mL, BAR (Barbituates): 200 ng/mL, BZO (Benzodiazepines): 150 ng/mL, BUP (Buprenorphine): 10 ng/mL, LUCIO (Cocaine): 150 ng/mL, mAMP (Methamphetamine): 500 ng/mL, MTD (Methadone): 200 ng/mL, OPI (Opiates): 100 ng/mL, OXY (Oxycodone): 100 ng/mL, PCP (Phencyclidine): 25 ng/mL, PPX (Propoxyphene): 300 ng/mL, THC (Cannabinoids): 50 ng/mL, TCA (Trycyclic Antidepressants): 300 ng/mLPerformed By: #### URCX #### [facility] [address] [place] [address] Dr. Juan Jose BandaDRUG CUT HEADERDRUG CLASS TEST SYSTEM CUT-OFF CONCENTRATIONS ARE FOLLOWS:NormalChildren'S Hospital Of ColumbusComment on above:Performed By: #### URCX #### [facility] [address] [place] [address] Dr. Juan Jose BandamAMPNegativeNormalNEGATIVEChildren'S Hospital Of ColumbusComment on above: Performed By: #### URCX #### [facility] [address] [place] [address] Dr. Juan Jose BandaMTDNegativeNormalNEGATIVEChildren'S Hospital Of ColumbusComment on above: Performed By: #### URCX #### [facility] [address] [place] [address] Dr. Juan Jose LevineINegativeNormalNEGATIVEChildren'S Hospital Of ColumbusComascension [facility] on above: Performed By: #### URCX #### [facility] [address] [place] [address] Dr. Juan Jose BandaOXYNegativeNormalNEGATIVEChildren'S Hospital Of ColumbusComment on above: Performed By: #### URCX #### [facility] [address] [place] [address] Dr. Juan Jose BandaPCPNegativeNormalNEGATIVEChildren'S Hospital Of ColumbusComment on above: Performed By: #### URCX #### [facility] [address] [place] [address] Dr. Juan Jose BandaPPXNegativeNormalNEGATIVEChildren'S Hospital Of ColumbusComment on above: Performed By: #### URCX #### [facility] [address] [place] [address] Dr. Juan Jose BandaTCANegativeNormalNEGATIVEChildren'S Hospital Of ColumbusComment on above: Performed By: #### URCX #### [facility] [address] [place] [address] Dr. Juan Jose LeegativeNormalNEGOhio State University Wexner Medical CenterComment on above: Performed By: #### URCX #### [facility] [address] [address] [address] Juan Jose BandaTYPE AND SCREENon [id number] AND SCREENNegativeSt. John of God HospitalComment on above:Performed By: #### CBCMAN #### [facility] [address] [address] [address] Juan Jose Narayan PREG BIOPHY W NON STRESSon [id number] PREG BIOPHY W NON STRESSEXAMINATION: US PREG [...] Electronically authenticated by: YO MESA Date: 2022-12-31 17:02[facility] God HospitalUS PREG UMBILICAL ARTERYon [id number] PREG UMBILICAL ARTERY EXAMINATION: US PREG UMBILICAL [...] Electronically authenticated by: YO MESA Date: 2022-12-31 17:18NoDayton Osteopathic HospitalGROUP B STREP CULTUREon 12-28-2022S. agalactiae Ag Ql (Unsp spec)Culture Observations: NEGATIVE FOR GROUP B STREPTOCOCCUS.NormalThe [facility] HospitalComment on above: Performed By: #### GBSCX #### [facility] [address] [address] [address] Juan Jose Narayan PREG BIOPHY W NON STRESSon [id number] PREG BIOPHY W NON STRESSEXAMINATION: US PREG [...] Electronically authenticated by: LUISA ARCHIBALD Date: 2022-12-24 11:23NoDayton Osteopathic HospitalUS PREG UMBILICAL ARTERYon [id number] PREG UMBILICAL ARTERY EXAMINATION: US PREG UMBILICAL [...] Electronically authenticated by: LUISA ARCHIBALD Date: 2022-12-24 11:58NoDayton Osteopathic HospitalUA (CLEAN/CATCH) RECORD PRESS OPERATOR/MICRO IF IND.on [id number] Ql (U) NegativeNormalNEGATIVEChildren'S Hospital Of ColumbusComment on above:Performed By: #### CBCMAN #### [facility] [address] [address] [address] Juan Jose BandaClarity (U)CLEARNormalCLEARThe [facility] HospitalComment on above: Performed By: #### CBCMAN #### [facility] [address] [address] [address] Juan Jose BandaColor (U)LT. YELLOWNormalYELLOWChildren'S Hospital Of ColumbusComment on above:Performed By: #### DOUG #### [facility] [address] [address] [address] Juan Jose BandaGlucose Ql (U)NegativeNormalNEGATIVEChildren'S Hospital Of ColumbusComment on above:Performed By: #### DOUG #### [facility] [address] [address] [address] Juan Jose BandaHemoglobin Ql (U)NegativeNormalNEGOhio State University Wexner Medical Center Comment on above:Performed By: #### DOUG #### [facility] [address] [address] [address] Juan Jose BandaKetones Ql (U)NegativeNormalNEGATIVEChildren'S Hospital Of ColumbusComment on above:Performed By: #### DOUG #### [facility] [address] [address] [address] Juan Jose BandaLEUKOCYTESSMALLAbnormalNEGATIVEChildren'S Hospital Of ColumbusComment on above:Performed By: #### DOUG #### [facility] [address] [place] [address] Dr. Juan Jose BandaNitrite Ql (U)NegativeNormalNEGATIVEChildren'S Hospital Of ColumbusComment on above:Performed By: #### DOUG #### [facility] [address] [address] [address] Juan Jose BandapH (U)6.0 [pH]Normal5-9Children'S Hospital Of ColumbusComment on above: Performed By: #### DOUG #### [facility] [address] [address] [address] Juan Jose BandaSPEC GRAVITY<=1.742Izojefzx2.005-<=1.025[facility] Comment on above:Performed By: #### DOUG #### [facility] [address] [place] [address] Dr. Juan Jose BandaUA PROTEINNegativeNormalNEGATIVE/ TRACEChildren'S Hospital Of Columbus Comment on above:Performed By: #### DOUG #### [facility] [address] [address] [address] Juan Jose PEREZ INDINDICATEDSt. John of God HospitalComment on above: Performed By: #### DOUG #### [facility] [address] [address] [address] Juan Jose Ewing Qn (U)0.2 {Tyler'U}/dLNormal0.2 - 1.0The [facility]Comasc[facility] on above:Performed By: #### DOUG #### [facility] [address] [address] [address] Juan Jose ALBRECHT ONLYon [id number] SEENNormalNONE SEENChildren'S Hospital Of ColumbusComascension st. john hospital on above:Performed By: #### DOUG #### [facility] [address] [address] [address] Juan Jose Batres identified Cx Nom (U)NOT INDICATEDNoDayton Osteopathic HospitalComment on above:Performed By: #### DOUG #### [facility] [address] [address] [address] Juan Jose Dao SEENNormalNONE SEENChildren'S Hospital Of ColumbusComascension st. j[facility] hospital on above:Performed By: #### DOUG #### [facility] [address] [address] [address] Juan Jose Santoyo LM Nom (Urine sed)NONE SEENNormalNONE SEENChildren'S Hospital Of ColumbusComascension st. john hospital on above:Performed By: #### DOUG #### [facility] [address] [address] [address] Ingram ChangEpithelial cells LM Ql (Urine sed)MANYAbnormalNONE SEEN /RAREThe [facility] HospitalComascension [facility] on above:Performed By: #### DOUG #### [facility] [address] [address] [address] Juan Jose Tolbert SEENNormalNONE SEENChildren'S Hospital Of ColumbusComascension st. j[facility] hospital on above:Performed By: #### DOUG #### [facility] [address] [place] [address] Dr. Juan Jose BandaRBCNONE SEENAbnormal0-2Children'S Hospital Of ColumbusComment on above: Performed By: #### CBCMAN #### [facility] [address] [place] [address] Dr. Juan Jose BandaWBC2-5AbnormalNONE SEENThe [facility] HospitalComment on above: Performed By: #### CBCMAN #### [facility] [address] [place] [address] Dr. Juan Jose Narayan PREG BIOPHY W NON STRESSon [id number] PREG BIOPHY W NON STRESSEXAM: US PREG [...] Electronically authenticated by: DALLIN HERNANDEZ Date: 2022-12-22 20:55NoGal[facility] PREG PLACENTAon [id number] PREG PLACENTAEXAM: US PREG PLACENTA HISTORY: Abdominal [...] Electronically authenticated by: DALLIN HERNANDEZ Date: 2022-12-22 20:52NoGal[facility] PREG GROWTHon [id number] PREG GROWTHEXAMINATION: US PREG GROWTH HISTORY: Uterine [...] Electronically authenticated by: LUISA ARCHIBALD Date: 2022-12-20 15:23NoMem[facility] HospitalCULTURE URINEon [id number] URINECulture Observations: LIGHT GROWTH OF MIXED GENITAL CHEVY. NO POTENTIAL PATHOGENS SEEN.NormalThe [facility] HospitalComment on above:Performed By: #### URCX #### [facility] [address] [place] [address] Dr. Juan Jose Hinton (CLEAN/CATCH) RECORD PRESS OPERATOR/MICRO IF IND.on [id number] Ql (U) NegativeNormalNEGATIVEThe [facility] HospitalComment on above:Performed By: #### HIV12 #### [facility] [address] [place] [address] Dr. Juan Jose Kumararity (U)CLEARNormalCLEARThe [facility] HospitalComment on above: Performed By: #### HIV12 #### [facility] [address] [place] [address] Dr. Juan Jose Oliver (U)LT. YELLOWNormalYELLOWChildren'S Hospital Of ColumbusComment on above:Performed By: #### HIV12 #### [facility] [address] [address] [address] Juan Jose BandaGlucose Ql (U)NegativeNormalNEGATIVEChildren'S Hospital Of ColumbusComment on above:Performed By: #### HIV12 #### [facility] [address] [place] [address] Dr. Juan Jose BandaHemoglobin Ql (U)NegativeNormalNEGATIVEChildren'S Hospital Of Columbus Comment on above:Performed By: #### HIV12 #### [facility] [address] [place] [address] Dr. Juan Jose BandaKetones Ql (U)NegativeNormalNEGATIVEChildren'S Hospital Of ColumbusComment on above:Performed By: #### HIV12 #### [facility] [address] [place] [address] Dr. Juan Jose BandaLEUKOCYTESMODERATEAbnormalNEGATIVEChildren'S Hospital Of ColumbusComment on above:Performed By: #### HIV12 #### [facility] [address] [place] [address] Dr. Juan Jose BandaNitrite Ql (U)NegativeNormalNEGATIVEChildren'S Hospital Of ColumbusComment on above:Performed By: #### HIV12 #### [facility] [address] [place] [address] Dr. Juan Jose BandapH (U)6.5 [pH]Normal5-9Children'S Hospital Of ColumbusComment on above: Performed By: #### HIV12 #### [facility] [address] [place] [address] Dr. Juan Jose BandaSPEC GRAVITY<=1.500Pzxgynph4.005-<=1.025[facility] Comment on above:Performed By: #### HIV12 #### [facility] [address] [place] [address] Dr. Juan Jose BandaUA PROTEINNegativeCoxhealthalNEGNOVANT HEALTH KERNERSVIL[facility]/ TRACEChildren'S Hospital Of Columbus Comment on above:Performed By: #### HIV12 #### [facility] [address] [place] [address] Dr. Juan Jose PEREZ INDINDICATEDSt. John of God HospitalComment on above: Performed By: #### HIV12 #### [facility] [address] [place] [address] Dr. Juan Jose Ewing Qn (U)0.2 {Tyler'U}/dLNormal0.2 - 1.0The Wright-Patterson Medical Centerment on above:Performed By: #### HIV12 #### [facility] [address] [place] [address] Dr. Juan Jose France MICROSCOPIC ONLYon [id number]C SEEN [facility] ColumbusComascension [facility] on above:Performed By: #### RPRQ #### [facility] [address] [place] [address] Dr. Juan Jose Batres identified Cx Nom (U)INDICATEDSt. John of God HospitalComascension st. j[facility] hospital on above:Performed By: #### RPRQ #### [facility] [address] [place] [address] Dr. Juan Jose Dao SEENNormalNONE SEENChildren'S Hospital Of ColumbusComascension st. [facility] hospital on above:Performed By: #### RPRQ #### [facility] [address] [place] [address] Dr. Juan Jose Santoyo LM Nom (Urine sed)NONE SEENNormalNONE SEENSouthern [place] [facility] on above:Performed By: #### RPRQ #### [facility] [address] [place] [address] Dr. Juan Jose Faustpithelial cells LM Ql (Urine sed)MODERATEAbnormalNONE SEEN /RARE The [facility] HospitalComasc[facility] on above:Performed By: #### RPRQ #### [facility] [address] [place] [address] Dr. Juan Jose Tolbert SEENNormalNONE SEENSouthern [place] [facility] Center on above:Performed By: #### RPRQ #### [facility] [address] [place] [address] Dr. Juan Jose BandaKdbrrRVJ7-9Uekxmaiu5-1Vaf Amboy HospitalComment on above:Performed By: #### RPRQ #### [facility] [address] [place] [address] Dr. Juan Jose BandaWBC5-10AbnormalNONE SEENThe [facility] on above: Performed By: #### RPRQ #### [facility] [address] [place] [address] Dr. Juan Jose AbdiASTPRESENTAbnormalNONE SEENThe [facility] on above:Result Comment: rarePerformed By: #### RPRQ #### [facility] [address] [place] [address] Dr. Juan Jose Saravia GUSTAVO ADMITon [id number] [Catalytic activity/Vol]33 U/L Eebrra29-274Avr [facility] on above:Performed By: #### SEDR #### [facility] [address] [place] [address] Dr. Juan Jose Knowles.MB [Mass/Vol]ng/mLNormal<=3.60The [facility] on above:Performed By: #### SEDR #### [facility] [address] [place] [address] Dr. Juan Jose Gil<4.4Vifwwu0.0-51.3The [facility] on above: Result Comment: CUT-OFF POINTS HAVE BEEN ESTABLISHED BASED ON THE FOURTH UNIVERSAL DEFINITIONS OF MYOCARDIAL INFARCTION. THE UPPER REFERENCE LIMIT (URL) OF TROPONIN, DEFINED THE 99TH PERCENTILE OF cTnI DISTRIBUTION IN A REFERENCE POPULATION, HAS BEEN CONFIRMED THE DECISION THRESHOLD FOR OK DIAGNOSIS.Performed By: #### SEDR #### [facility] [address] [place] [address] Dr. Juan Jose BatemanO17 ng/mLNormal9-82The [facility] on above: Performed By: #### SEDR #### [facility] [address] [place] [address] Dr. Juan Jose Rosado AUTO DIFFon [id number] #0.0 103/ulNormal0.0-0.1The [facility] on above:Performed By: #### URCX #### [facility] [address] [place] [address] Dr. Juan Jose BandaBasophils/100 WBC (Bld)0.2 %Normal0.2-2.0The [facility] Comment on above:Performed By: #### URCX #### [facility] [address] [place] [address] Dr. Juan Jose Sims #0.0 103/ulNormal0.0-0.7The [facility] HospitalComment on above: Performed By: #### URCX #### [facility] [address] [place] [address] Dr. Juan Jose Faustosinophils/100 WBC (Bld)0.4 %Critically low0.9-7.0The [facility] HospitalComment on above:Performed By: #### URCX #### [facility] [address] [place] [address] Dr. Juan Jose Faustrythrocyte distribution width (RBC) [Ratio]12.4 %Xdtgus16.0-15.0 [facility] Hospital Of ColumbusComment on above:Performed By: #### URCX #### [facility] [address] [place] [address] Dr. Juan Jose BandaHematocrit (Bld) [Volume fraction]33.7 %Critically low36.0-48.0 [facility] Hospital Of ColumbusComment on above:Performed By: #### URCX #### [facility] [address] [place] [address] Dr. Juan Jose BandaHemoglobin (Bld) [Mass/Vol]12.1 g/gIKwmuwe33.0-16.0The [facility] HospitalComment on above:Performed By: #### URCX #### [facility] [address] [place] [address] Dr. Juan Jose Daugherty #0.09 10e3/ulCritically high0.00-0.03The [facility] Comment on above:Performed By: #### URCX #### [facility] [address] [place] [address] Dr. Juan Jose Daugherty %1.1 %Critically high0.0-0.5The [facility] HospitalComment on above:Performed By: #### URCX #### [facility] [address] [place] [address] Dr. Juan Jose Banerjee #1.5 103/ulNormal1.2-3.8The [facility] HospitalComment on above:Performed By: #### URCX #### [facility] [address] [place] [address] Dr. Juan Jose Martinhocytes/100 WBC (Bld)17.1 %Critically low20.5-60.0The [facility] HospitalComment on above:Performed By: #### URCX #### [facility] [address] [place] [address] Dr. Juan Jose FullerUAL DIFF REQNONormalThe [facility] HospitalComment on above: Performed By: #### URCX #### [facility] [address] [place] [address] Dr. Juan Jose Toure (RBC) [Entitic mass]30.5 qcYtvguz38.7-34.0The [facility] HospitalComment on above:Performed By: #### URCX #### [facility] [address] [place] [address] Dr. Juan Jose Toure (RBC) [Mass/Vol]35.9 g/dLCritically high29.9-35.2The [facility] HospitalComment on above:Performed By: #### URCX #### [facility] [address] [place] [address] Dr. Juan Jose Toure (RBC) [Entitic vol]84.9 pSEmkwqg87.0-99.0The [facility] HospitalComment on above:Performed By: #### URCX #### [facility] [address] [place] [address] Dr. Juan Jose Pedro #0.8 103/ulNormal0.3-0.8The [facility] HospitalComment on above:Performed By: #### URCX #### [facility] [address] [place] [address] Dr. Juan Jose BandaMonocytes/100 WBC (Bld)9.8 %Normal1.7-12.0The [facility] Comment on above:Performed By: #### URCX #### [facility] [address] [place] [address] Dr. Juan Jose NyeUT #6.1 103/ulNormal1.4-6.5The [facility] HospitalComment on above:Performed By: #### URCX #### [facility] [address] [place] [address] Dr. Juan Jose Nyeutrophils/100 WBC (Bld)71.4 %Jpdvyv04.0-75.0The [facility] HospitalComment on above:Performed By: #### URCX #### [facility] [address] [place] [address] Dr. Juan Jose BandaPlatelet mean volume (Bld) [Entitic vol]11.2 fLNormal9.5-13.5The [facility] HospitalComment on above:Performed By: #### URCX #### [facility] [address] [place] [address] Dr. Juan Jose BandaPLT196 103/xbJxwoxz610-697Ypq [facility] HospitalComment on above: Performed By: #### URCX #### [facility] [address] [place] [address] Dr. Juan Jose BandaRBC3.97 106/ulCritically low4.20-5.40The [facility] HospitalComment on above:Performed By: #### URCX #### [facility] [address] [place] [address] Dr. Juan Jose BandaWBC8.5 103/ulNormal4.0-11.0The [facility] HospitalComment on above: Performed By: #### URCX #### [facility] [address] [place] [address] Dr. Juan Jose Villatoro PROFILEon 77-28-8982Ctzudij [Mass/Vol]3.0 g/dLCritically low3.4-5.0The [facility] HospitalComment on above:Performed By: #### SEDR #### [facility] [address] [address] [address] Juan Jose BandaAlbumin/Globulin [Mass ratio]0.9 {ratio}NormalThe [facility] HospitalComment on above:Performed By: #### SEDR #### [facility] [address] [address] [address] Juan Joes Hugo [Catalytic activity/Vol]76 U/IMmyarm75-702Dmp [facility] HospitalComment on above:Performed By: #### SEDR #### [facility] [address] [address] [address] Juan Jose Stafford [Catalytic activity/Vol]13 U/LCritically slk67-13Uik [facility] HospitalComment on above:Performed By: #### SEDR #### [facility] [address] [place] [address] Dr. Juan Jose BandaAST [Catalytic activity/Vol]14 U/LCritically egt60-81Uab [facility] HospitalComment on above:Performed By: #### SEDR #### [facility] [address] [place] [address] Dr. Juan Jose RodriguezI, CONJUGATED0.1 mg/dLNormal0.0-0.2The [facility] Comment on above:Performed By: #### SEDR #### [facility] [address] [address] [address] Juan Jose Rodriguezirubin [Mass/Vol]0.3 mg/dLNormal0.2-1.0The [facility] Comment on above:Performed By: #### SEDR #### [facility] [address] [address] [address] Juan Jose BandaGlobulin (S) [Mass/Vol]3.4 g/dLNormalThe [facility] HospitalComment on above:Performed By: #### SEDR #### [facility] [address] [address] [address] Juan Jose BandaProtein [Mass/Vol]6.4 g/dLNormal6.4-8.2The [facility] Comment on above:Performed By: #### SEDR #### [facility] [address] [id number] Juan Jose BandaBOX TEST SENT OUTon [id number] TO REF LAB10/01/2022[facility] HospitalComment on above:Performed By: #### SEDR #### [facility] [address] [place], [place] [address] Dr. Juan Jose BandaUS PREG ANATOMY SINGLEon [id number] PREG ANATOMY SINGLE EXAMINATION: US PREG ANATOMY [...] Electronically authenticated by: LUISA ARCHIBALD Date: 2022-09-29 16:29[facility] HospitalHEP B SURFACE ANTIGEN SCREENon [id number] ScreenNegative NormalNegativeThe [facility] on above:Performed By: #### SEDR #### [facility] [address] [place] [address] Dr. Juan Jose BandaHEPATITIS C VIRUS AB W/ REFLEX QUANTon [id number] AB<0.1Normal 0.0-0.9The [facility] on above:Performed By: #### RPRQ #### [facility] [address] [place] [address] Dr. Juan Jose BandaInterpretation:CommentNormalThe [facility] on above:Result Comment: Negative Not infected with HCV, unless recent infection is suspected or other evidence exists to indicate HCV infection.Performed By: #### RPRQ #### [address] [place] [address] Dr[address] Juan Jose BandaHICapo 1 AND 2 WITH REFLEXon [id number] Screen 4th Generation wRfxNon-ReactiveNormalNon ReactiveThe [facility] on above:Result Comment: HIV Negative HIV-1/HIV-2 antibodies and HIV-1 p24 antigen were NOT detected. There is no laboratory evidence of HIV infection.Performed By: #### HIV12 #### [address] [address] Dr[address] Juan Jose BandaRPRadha QUANTon [id number] Plasma Reagin, QuantNon-Reactive NormalNonRea<1:1The [facility] on above:Result Comment: Please Note: This test does not meet current guidelines for screening and diagnosis of syphilis. This test is intended for following treatment response in patients being treated for syphilis infection. To screen for syphilis infection, a reflex cascade that includes both RPR and a treponema-specific assay should be utilized, such as Treponema pallidum (Syphilis) Screening Diboll (583091) or Rapid Plasma Reagin (RPR) Test With Reflex to Quantitative RPR and Confirmatory Treponema pallidum Antibodies (393652).Performed By: #### RPRQ #### [facility] [address] [place] [address] Dr. Juan Jose Knowles AB IGGon 05-17-8123Rtwcmxz Antibodies, IgG2.56 index NormalImmune >0.99The [facility] HospitalComment on above:Result Comment: Non- immune <0.90 Equivocal 0.90 - 0.99 Immune >0.99Performed By: #### SEDR #### [facility] [address] [place] [address] Dr. Juan Jose BandaCULTURE URINEon [id number] URINECulture Observations: LIGHT GROWTH OF MIXED GENITAL CHEVY. NO POTENTIAL PATHOGENS SEEN.NormalThe [facility] HospitalComment on above:Performed By: #### URCX #### [facility] [address] [place] [address] Dr. Juan Jose Rosado AUTO DIFFon 22-36-1847PHTW #0.0 103/ulNormal0.0-0.1The [facility] HospitalComment on above:Performed By: #### SEDR #### [facility] [address] [place] [address] Dr. Juan Jose BandaBasophils/100 WBC (Bld)0.4 %Normal0.2-2.0[facility] Comment on above:Performed By: #### SEDR #### [facility] [address] [place] [address] Dr. Ingram ChangEValery #0.1 103/ulNormal0.0-0.7The [facility] HospitalComment on above: Performed By: #### SEDR #### [facility] [address] [place] [address] Dr. Juan Jose Faustosinophils/100 WBC (Bld)1.4 %Normal0.9-7.0The [facility] Comment on above:Performed By: #### SEDR #### [facility] Laboratory [address] [place] [address] Dr. Juan Jose Faustrythrocyte distribution width (RBC) [Ratio]12.2 %Zgrqlt52.0-15.0 The [facility] HospitalComment on above:Performed By: #### SEDR #### [facility] [address] [place] [address] Dr. Juan Jose BandaHematocrit (Bld) [Volume fraction]35.3 %Critically low36.0-48.0 The [facility] HospitalComment on above:Performed By: #### SEDR #### [facility] [address] [place] [address] Dr. Juan Jose BandaHemoglobin (Bld) [Mass/Vol]12.7 g/sQQtjdzd76.0-16.0The [facility] HospitalComment on above:Performed By: #### SEDR #### [facility] [address] [place] [address] Dr. Juan Jose Daugherty #0.03 10e3/ulNormal0.00-0.03The [facility] HospitalComment on above:Performed By: #### SEDR #### [facility] [address] [place] [address] Dr. Juan Jose Daugherty %0.4 %Normal0.0-0.5The [facility] HospitalComment on above: Performed By: #### SEDR #### [facility] [address] [place] [address] Dr. Juan Jose Banerjee #1.4 103/ulNormal1.2-3.8The [facility] HospitalComment on above:Performed By: #### SEDR #### [facility] [address] [place] [address] Dr. Juan Jose Snowmphocytes/100 WBC (Bld)19.7 %Critically low20.5-60.0The [facility] HospitalComment on above:Performed By: #### SEDR #### [facility] [address] [place] [address] Dr. Juan Jose BandaMANUAL DIFF REQNONormalThe [facility] HospitalComment on above: Performed By: #### SEDR #### [facility] [address] [place] [address] Dr. Juan Jose Medeiros (RBC) [Entitic mass]29.8 jtMrsyru85.7-34.0The [facility] HospitalComment on above:Performed By: #### SEDR #### [facility] [address] [address] [address] Juan Jose ToureHC (RBC) [Mass/Vol]36.0 g/dLCritically high29.9-35.2The [facility] HospitalComment on above:Performed By: #### SEDR #### [facility] [address] [address] [address] Juan Jose ToureV (RBC) [Entitic vol]82.9 oSBavwto19.0-99.0The [facility] HospitalComment on above:Performed By: #### SEDR #### [facility] [address] [place] [address] Dr. Juan Jose Pedro #0.6 103/ulNormal0.3-0.8The [facility] HospitalComment on above:Performed By: #### SEDR #### [facility] [address] [place] [address] Dr. Juan Jose Puriocytes/100 WBC (Bld)8.3 %Normal1.7-12.0[facility] Comment on above:Performed By: #### SEDR #### [facility] [address] [place] [address] Dr. Juan Jose Farr #5.0 103/ulNormal1.4-6.5The [facility] HospitalComment on above:Performed By: #### SEDR #### [facility] [address] [place] [address] Dr. Juan Jose Nyeutrophils/100 WBC (Bld)69.8 %Ezhkql95.0-75.0The [facility] HospitalComment on above:Performed By: #### SEDR #### [facility] [address] [place] [address] Dr. Juan Jose Muñozlet mean volume (Bld) [Entitic vol]11.8 fLNormal9.5-13.5The [facility] HospitalComment on above:Performed By: #### SEDR #### [facility] [address] [place] [address] Dr. Juan Jose BandaPLT183 103/rfGorqtk827-023Soj [facility] on above: Performed By: #### SEDR #### [facility] [address] [place] [address] Dr. Juan Jose BandaRBC4.26 106/ulNormal4.20-5.40The [facility] on above:Performed By: #### SEDR #### [facility] [address] [place] [address] Dr. Juan Jose BandaWBC7.1 103/ulNormal4.0-11.0The [facility] on above: Performed By: #### SEDR #### [facility] [address] [place] [address] Dr. Juan Jose BandaCULTURE URINEon [id number] URINECulture Observations: MODERATE GROWTH OF MIXED GENITAL CHEVY. NO POTENTIAL PATHOGENS SEEN.NormalThe [facility] on above:Performed By: #### CBCMAN #### [facility] [address] [place] [address] Dr. Juan Jose BandaGLYCOHEMOGLOBIN A1Con [id number] RECOMMENDATIONSEE BELOWNormal The [facility] on above:Result Comment: ADA RECOMMENDED LIMIT 4.0 - 6.0 ADA THERAPEUTIC TARGET < 7.0 ACTION SUGGESTED > 7.0Performed By: #### HIV12 #### [facility] [address] [place] [address] Dr. Juan Jose BandaGlucose [Mass/Vol]85 mg/dLNoHenry County Hospital on above:Performed By: #### HIV12 #### [facility] [address] [place] [address] Dr. Juan Jose BandaHbA1c (Bld) [Mass fraction]4.6 %Normal4.5-6.2The [facility] on above:Performed By: #### HIV12 #### [facility] [address] [place] [address] Dr. Juan Jose BandaTYPE AND SCREENon [id number] AND SCREENNegativeNoHenry County Hospital on above:Performed By: #### TNS #### [facility] [address] [place] [address] Dr. Juan Jose BandaCovid-19 PCR ([facility])on [id number]-CoV-2 (COVID-19) RNA ISAAC+probe Ql (Unsp spec)Not detectedNormalNOT DETECTEDThe [facility] Comment on above:Result Comment: When diagnostic [...] for this test is supported by the [employer] of Health and Human Service's declaration that [...] longer be used).Performed By: #### RPRQ #### [facility] [address] [place] [address] Dr. Juan Jose Fernandez A AND B AGon [id number] BELOWSt. John of God HospitalComment on above:Result Comment: Negative for Flu A protein angiten. Infection due to Flu A cannot be ruled out. FluA angiten in the sample may be below the detection limit of the test.Performed By: #### SEDR #### [facility] [address] [place] [address] Dr. Juan Jose OspinaUBNEGBORIS [facility] HospitalComascension [facility] on above: Result Comment: Negative for Flu B protein antigen. Infection due to Flu B cannot be ruled out. FluB antigen in the sample may be below the detection limit of the test.Performed By: #### SEDR #### [facility] [address] [place] [address] Dr. Yilan ChangINFLUENZA A AGNegativeNormalNEGATIVE SEE COMMENTThe [facility] HospitalComment on above:Performed By: #### SEDR #### [facility] [address] [place] [address] Dr. Juan Jose Infante AGNegativeNormalNEGATIVE SEE COMMENTThe [facility] HospitalComment on above:Performed By: #### SEDR #### [facility] [address] [place] [address] Dr. Juan Jose BandaINTERNAL CONTROLSWithin Normal LimitsNormalWithin Normal Limits [facility] ColumbusComment on above:Performed By: #### SEDR #### [facility] [address] [place] [address] Dr. Juan Jose Rosado AUTO DIFFon [id number] #0.0 103/ulNormal0.0-0.1The [facility] HospitalComment on above:Performed By: #### SEDR #### [facility] [address] [place] [address] Dr. Juan Jose BandaBasophils/100 WBC (Bld)0.3 %Normal0.2-2.0[facility] Comment on above:Performed By: #### SEDR #### [facility] [address] [place] [address] Dr. Juan Jose Sims #0.1 103/ulNormal0.0-0.7The [facility] HospitalComment on above: Performed By: #### SEDR #### [facility] [address] [place] [address] Dr. Juan Jose Faustosinophils/100 WBC (Bld)1.3 %Normal0.9-7.0[facility] Comment on above:Performed By: #### SEDR #### [facility] [address] [place] [address] Dr. Juan Jose Faustrythrocyte distribution width (RBC) [Ratio]11.4 %Jjonfv12.0-15.0 [facility] ColumbusComment on above:Performed By: #### SEDR #### [facility] [address] [place] [address] Dr. Yilan ChangHematocrit (Bld) [Volume fraction]35.6 %Critically low36.0-48.0 The [facility] HospitalComment on above:Performed By: #### SEDR #### [facility] [address] [address] [address] Juan Jose BandaHemoglobin (Bld) [Mass/Vol]12.9 g/rVAkebgq94.0-16.0The [facility] HospitalComment on above:Performed By: #### SEDR #### [facility] [address] [address] [address] Juan Jsoe BandaIG #0.04 10e3/ulCritically high0.00-0.03[facility] Comment on above:Performed By: #### SEDR #### [facility] [address] [place] [address] Dr. Juan Jose BandaIG %0.5 %Normal0.0-0.5The [facility] HospitalComment on above: Performed By: #### SEDR #### [facility] [address] [place] [address] Dr. Juan Jose Banerjee #2.2 103/ulNormal1.2-3.8The [facility] HospitalComment on above:Performed By: #### SEDR #### [facility] [address] [place] [address] Dr. Juan Jose Snowmphocytes/100 WBC (Bld)25.8 %Afmaaf35.5-60.0The [facility] HospitalComment on above:Performed By: #### SEDR #### [facility] [address] [place] [address] Dr. Juan Jose BandaMANUAL DIFF REQNONormalThe [facility] HospitalComment on above: Performed By: #### SEDR #### [facility] [address] [place] [address] Dr. Juan Jose Medeiros (RBC) [Entitic mass]29.9 jvYgtpeo86.7-34.0The [facility] HospitalComment on above:Performed By: #### SEDR #### [facility] [address] [place] [address] Dr. Juan Jose ToureHC (RBC) [Mass/Vol]36.2 g/dLCritically high29.9-35.2The [facility] HospitalComment on above:Performed By: #### SEDR #### [facility] [address] [place] [address] Dr. Juan Jose ToureV (RBC) [Entitic vol]82.4 cIWetooj91.0-99.0The [facility] HospitalComment on above:Performed By: #### SEDR #### [facility] [address] [place] [address] Dr. Juan Jose Pedro #0.9 103/ulCritically high0.3-0.8[facility] Comment on above:Performed By: #### SEDR #### [facility] [address] [place] [address] Dr. Juan Jose Puriocytes/100 WBC (Bld)9.9 %Normal1.7-12.0[facility] Comment on above:Performed By: #### SEDR #### [facility] [address] [place] [address] Dr. Juan Jose Farr #5.4 103/ulNormal1.4-6.5The [facility] HospitalComment on above:Performed By: #### SEDR #### [facility] [address] [place] [address] Dr. Juan Jose Nyeutrophils/100 WBC (Bld)62.2 %Jprirn01.0-75.0The [facility] HospitalComment on above:Performed By: #### SEDR #### [facility] [address] [place] [address] Dr. Juan Jose Muñozlet mean volume (Bld) [Entitic vol]11.7 fLNormal9.5-13.5The [facility] HospitalComment on above:Performed By: #### SEDR #### [facility] [address] [place] [address] Dr. Juan Jose BandaPLT205 103/aeAibfdi045-249Sbk [facility] HospitalComment on above: Performed By: #### SEDR #### [facility] [address] [place] [address] Dr. Juan Jose BandaRBC4.32 106/ulNormal4.20-5.40The [facility] HospitalComment on above:Performed By: #### SEDR #### [facility] [address] [place] [address] Dr. Juan Jose BandaWBC8.6 103/ulNormal4.0-11.0The [facility] HospitalComment on above: Performed By: #### SEDR #### [facility] [address] [place] [address] Dr. Juan Jose Pimentel URINE PROFILEon 87-56-6928Dycjrfhua Ql (U)NegativeNormal NEGATIVEChildren'S Hospital Of ColumbusComment on above:Performed By: #### HIV12 #### [facility] [address] [place] [address] Dr. Juan Jose Kumararity (U)CLEARNormalCLEARChildren'S Hospital Of ColumbusComment on above: Performed By: #### HIV12 #### [facility] [address] [place] [address] Dr. Juan Jose Oliver (U)LT. YELLOWNormalYELLOWChildren'S Hospital Of ColumbusComment on above:Performed By: #### HIV12 #### [facility] [address] [place] [address] Dr. Juan Jose YuenDA micrscopic examination will be performed if indicated. NormalThe [facility] HospitalComment on above:Performed By: #### HIV12 #### [facility] [address] [place] [address] Dr. Juan Jose BandaGlucose Ql (U)NegativeNormalNEGATIVEChildren'S Hospital Of ColumbusComment on above:Performed By: #### HIV12 #### [facility] [address] [place] [address] Dr. Juan Jose BandaHemoglobin Ql (U)NegativeNormalNEGATIVEKeenan Private Hospital on above:Performed By: #### HIV12 #### [facility] [address] [place] [address] Dr. Juan Jose Johnson Ql (U)NegativeNormalNEGATIVEChildren'S Hospital Of ColumbusComment on above:Performed By: #### HIV12 #### [facility] [address] [place] [address] Dr. Juan Jose BairdOCYTESSMALLAbnormalNEGATIVEChildren'S Hospital Of ColumbusComment on above:Performed By: #### HIV12 #### [facility] [address] [place] [address] Dr. Juan Jose Rey Ql (U)NegativeNormalNEGATIVEChildren'S Hospital Of ColumbusComment on above:Performed By: #### HIV12 #### [facility] [address] [place] [address] Dr. Juan Jose BandapH (U)6.0 [pH]Normal5-9The [facility] HospitalComment on above: Performed By: #### HIV12 #### [facility] [address] [place] [address] Dr. Juan Jose BandaSPEC GRAVITY<=1.403Rmcdscfs8.005-<=1.025[facility] Comment on above:Performed By: #### HIV12 #### [facility] [address] [place] [address] Dr. Juan Jose Hinton PROTEINNegativeNormalNEGATIVE/ TRACEChildren'S Hospital Of Columbus Comment on above:Performed By: #### HIV12 #### [facility] [address] [place] [address] Dr. Juan Jose Anne MICRO INDINDICATEDNormalThMarymount HospitalComment on above: Performed By: #### HIV12 #### [facility] [address] [place] [address] Dr. Juan Jose Jiménezbilinogen Qn (U)0.2 {Tyler'U}/dLNormal0.2 - 1.0[facility] ColumbusComment on above:Performed By: #### HIV12 #### [facility] [address] [place] [address] Dr. Juan Jose LaraG QUANT HCGon 34-77-6189FBL [id number] mIU/mLNormalThe [facility] HospitalComment on above:Performed By: #### RPRQ #### [facility] [address] [place] [address] Dr. Juan Jose Jessica [facility], AvonComment on above: Result Comment: 5-50 0.2-1 WEEK 50-500 1-2 WEEKS 100-5,000 2-3 WEEKS 500-10,000 3-4 WEEKS 1,000-50,000 4-5 WEEKS 10,000-100,000 5-6 WEEKS 15,000-200,000 6-8 WEEKS 10,000-100,000 2-3 MONTHSPerformed By: #### RPRQ #### [facility] [address] [place] [address] Dr. Juan Jose BandaPREGNANCY URon [id number], QUALPositiveAbnormalNEGATIVE [facility] ColumbusComment on above:Performed By: #### HIV12 #### [facility] [address] [place] [address] Dr. Juan Jose BandaPROF CHEM 8 (BAS METB)on 11-98-8709Pcelc gap [Moles/Vol]9.4 mmol/LNormalChildren'S Hospital Of ColumbusComment on above:Performed By: #### RPRQ #### [facility] [address] [place] [address] Dr. Juan Jose BandaCalcium [Mass/Vol]8.8 mg/dLNormal8.5-10.1[facility] Comment on above:Performed By: #### RPRQ #### [facility] [address] [place] [address] Dr. Juan Jose BandaChloride [Moles/Vol]102 mmol/VEifwbu66-310SvcChildren'S Hospital Of Columbus Comment on above:Performed By: #### RPRQ #### [facility] [address] [place] [address] Dr. Juan Jose BandaCO2 [Moles/Vol]28.0 mmol/MAqbabm05.0-32.0[facility] Comment on above:Performed By: #### RPRQ #### [facility] [address] [place] [address] Dr. Juan Jose BandaCreatinine [Mass/Vol]0.66 mg/dLNormal0.55-1.02The [facility] HospitalComment on above:Performed By: #### RPRQ #### [facility] [address] [place] [address] Dr. Juan Jose FaustGFR-AF FINNISH>60Normal>=60The [facility] HospitalComment on above:Performed By: #### RPRQ #### [facility] [address] [address] [address] Juan Jose FaustGFR-NON AF FINNISH>60Normal>=60The [facility] HospitalComment on above:Performed By: #### RPRQ #### [facility] [address] [place] [address] Dr. Juan Jose BandaGlucose [Mass/Vol]92 mg/wKHcnwve50-231Nzt [facility] Comment on above:Performed By: #### RPRQ #### [facility] [address] [place] [address] Dr. Juan Jose BandaPotassium [Moles/Vol]3.4 mmol/LCritically low3.5-5.1The [facility] HospitalComment on above:Performed By: #### RPRQ #### [facility] [address] [place] [address] Dr. Juan Jose BandaSodium [Moles/Vol]136 mmol/DJtfsof066-293Pjp [facility] Comment on above:Performed By: #### RPRQ #### [facility] [address] [place] [address] Dr. Juan Jose BandaUrea nitrogen [Mass/Vol]9.0 mg/dLNormal6.4-19.3The [facility] HospitalComment on above:Performed By: #### RPRQ #### [facility] [address] [place] [address] Dr. Juan Jose BandaUrea nitrogen/Creatinine [Mass ratio]13.6 mg/mgNormalThe [facility] HospitalComment on above:Performed By: #### RPRQ #### [facility] [address] [address] [address] Juan Jose France MICROSCOPIC ONLYon [id number]scSHPP SEEN [facility] on above:Performed By: #### HIV12 #### [facility] [address] [place] [address] Dr. Juan Jose Batres identified Cx Nom (U)NOT INDICATEDNoDayton Osteopathic HospitalComascension st. [facility] on above:Performed By: #### HIV12 #### [facility] [address] [place] [address] Dr. Juan Jose Dao SEENNormalNONE [facility]ENSouthern [facility] on above:Performed By: #### HIV12 #### [facility] [address] [place] [address] Dr. Juan Jose Stevensonystals LM Nom (Urine sed)NONE SEENNormalNONE SEENSouthern [facility] on above:Performed By: #### HIV12 #### [facility] [address] [place] [address] Dr. Ingram ChangEpithelial cells LM Ql (Urine sed)MANYAbnormalNONE SEEN /RARESouthern [facility] Medical Center on above:Performed By: #### HIV12 #### [facility] [address] [place] [address] Dr. Juan Jose TrippCOUSTRACEAbnormalNONE [facility]ENSouthern [facility] on above:Performed By: #### HIV12 #### [facility] [address] [place] [address] Dr. Juan Jose McfaddenZnjllAGN1-7Vaqbpt9-7Jzx [facility] on above:Performed By: #### HIV12 #### [facility] [address] [place] [address] Dr. Juan Jose BandaWBC0-2AbnormalNONE [facility]ENSouthern [facility] on above: Performed By: #### HIV12 #### [facility] [address] [place] [address] Dr. Juan Jose Narayan PREG TVon [id number] PREG TVEXAMINATION: US PREG TV HISTORY: Missed [...] BY US CRL: 8 weeks 4 days RTACI BY US CRL: 01/24/2023 IMPRESSION: 1. Single live intrauterine . Electronically authenticated by: LUISA ARCHIBALD Date: 2022-06-18 17:27NormDoctors Hospital HospitalABO AND RH TYPEon [id number] and Rh group Nom (Bld)ABO Rh Typing O Rh PositiveNoDayton Osteopathic HospitalComment on above:Performed By: #### ABORH #### [facility] [address] [place] [address] Dr. Juan Jose BandaAMYLASEon 64-09-1634Kbtgwyy [Catalytic activity/Vol]33 U/LNormal 25-115The [facility] HospitalComment on above:Performed By: #### URCX #### [facility] [address] [place] [address] Dr. Juan Jose Rosado AUTO DIFFon 51-02-9813WKEZ #0.0 103/ulNormal0.0-0.1[facility] ColumbusComment on above:Performed By: #### CBCMAN #### [facility] [address] [place] [address] Dr. Juan Jose BandaBasophils/100 WBC (Bld)0.4 %Normal0.2-2.0[facility] Comment on above:Performed By: #### CBCMAN #### [facility] [address] [place] [address] Dr. Juan Jose Sims #0.1 103/ulNormal0.0-0.7The [facility] HospitalComment on above: Performed By: #### CBCMAN #### [facility] [address] [place] [address] Dr. Yilan ChangEosinophils/100 WBC (Bld)2.2 %Normal0.9-7.0[facility] Comment on above:Performed By: #### DOUG #### [facility] [address] [place] [address] Dr. Juan Jose Faustrythrocyte distribution width (RBC) [Ratio]11.6 %Shqgsk26.0-15.0 [facility] ColumbusComment on above:Performed By: #### DOUG #### [facility] [address] [place] [address] Dr. Juan Jose BandaHematocrit (Bld) [Volume fraction]35.1 %Critically low36.0-48.0 The [facility] HospitalComment on above:Performed By: #### DOUG #### [facility] [address] [place] [address] Dr. Juan Jose BandaHemoglobin (Bld) [Mass/Vol]12.5 g/eBQkqvbl38.0-16.0The [facility] HospitalComment on above:Performed By: #### DOUG #### [facility] [address] [place] [address] Dr. Juan Jose Daugherty #0.02 10e3/ulNormal0.00-0.03The [facility] HospitalComment on above:Performed By: #### DOUG #### [facility] [address] [place] [address] Dr. Juan Jose BandaIG %0.4 %Normal0.0-0.5The [facility] HospitalComment on above: Performed By: #### DOUG #### [facility] [address] [place] [address] Dr. Juan Jose MartinH #1.8 103/ulNormal1.2-3.8The [facility] HospitalComment on above:Performed By: #### CBCJESSICA #### [facility] [address] [place] [address] Dr. Juan Jose Snowmphocytes/100 WBC (Bld)31.8 %Ipxcng26.5-60.0The [facility] HospitalComment on above:Performed By: #### CBCJESSICA #### [facility] [address] [place] [address] Dr. Juan Jose FullerUAL DIFF REQNONormalThe [facility] HospitalComment on above: Performed By: #### DOUG #### [facility] [address] [place] [address] Dr. Juan Jose Toure (RBC) [Entitic mass]29.9 fkWgvuhu05.7-34.0The [facility] HospitalComment on above:Performed By: #### DOUG #### [facility] [address] [place] [address] Dr. Juan Jose Toure (RBC) [Mass/Vol]35.6 g/dLCritically high29.9-35.2The [facility] HospitalComment on above:Performed By: #### DOUG #### [facility] [address] [place] [address] Dr. Juan Jose Toure (RBC) [Entitic vol]84.0 pYDzpnzf94.0-99.0The [facility] HospitalComment on above:Performed By: #### DOUG #### [facility] [address] [place] [address] Dr. Juan Jose Pedro #0.6 103/ulNormal0.3-0.8The [facility] HospitalComment on above:Performed By: #### DOUG #### [facility] [address] [place] [address] Dr. Juan Jose Puriocytes/100 WBC (Bld)10.4 %Normal1.7-12.0The [facility] Comment on above:Performed By: #### CBCJESSICA #### [facility] [address] [place] [address] Dr. Juan Jose Farr #3.1 103/ulNormal1.4-6.5The [facility] HospitalComment on above:Performed By: #### CBCJESSICA #### [facility] [address] [place] [address] Dr. Juan Jose Nyeutrophils/100 WBC (Bld)54.8 %Tgwufl94.0-75.0The Toño HospitalComment on above:Performed By: #### MAINEMAN #### [facility] [address] [place] [address] Dr. Juan Jose Ambrose mean volume (Bld) [Entitic vol]11.8 fLNormal9.5-13.5The [facility] Centerment on above:Performed By: #### MAINEMAN #### [facility] [address] [place] [address] Dr. Juan Jose BandaPLT185 103/rrBckdsf371-302Swp [facility] HospitalComment on above: Performed By: #### MAINEMAN #### [facility] [address] [place] [address] Dr. Juan Jose BandaRBC4.18 106/ulCritically low4.20-5.40The [facility] on above:Performed By: #### MAINEMAN #### [facility] [address] [place] [address] Dr. Juan Jose BandaWBC5.6 103/ulNormal4.0-11.0The [facility] on above: Performed By: #### DOUG #### [facility] [address] [place] [address] Dr. Juan Jose BandaLIPASEon [id number] [Catalytic activity/Vol]69.0 U/L Critically low73.0-393.0[facility] on above:Performed By: #### URCX #### [facility] [address] [place] [address] Dr. Juan Jose Hamm QUANT HCGon [id number] [id number] mIU/mLNormalThe [facility]Com[facility] on above:Performed By: #### RPRQ #### [facility] [address] [place] [address] Dr. Juan Jose Jessica RANGESEE [facility] HospitalComment on above: Result Comment: 5-50 0.2-1 WEEK 50-500 1-2 WEEKS 100-5,000 2-3 WEEKS 500-10,000 3-4 WEEKS 1,000-50,000 4-5 WEEKS 10,000-100,000 5-6 WEEKS 15,000-200,000 6-8 WEEKS 10,000-100,000 2-3 MONTHSPerformed By: #### RPRQ #### [facility] [address] [place], [place] [id number] Dr. Juan Jose Narayan PREG TVon [id number] PREG TVEXAM: US PREG TV HISTORY: Pain [...] Electronically authenticated by: Marita SINHA Date: 2022-06-02 01:30NoDayton Osteopathic HospitalCB AUTO DIFFon [id number] #0.0 103/ulNormal0.0-0.1The [facility] HospitalComment on above:Performed By: #### HIV12 #### [facility] [address] [place], [place] [address] Dr. Juan Jose Moralessophils/100 WBC (Bld)0.5 %Normal0.2-2.0The [facility] Comment on above:Performed By: #### HIV12 #### [facility] [address] [place] [address] Dr. Juan Jose Sims #0.1 103/ulNormal0.0-0.7The [facility] HospitalComment on above: Performed By: #### HIV12 #### [facility] [address] [place] [address] Dr. Juan Jose Faustosinophils/100 WBC (Bld)1.2 %Normal0.9-7.0The [facility] on above:Performed By: #### HIV12 #### [facility] [address] [place] [address] Dr. Juan Jose Faustrythrocyte distribution width (RBC) [Ratio]11.6 %Oirllz23.0-15.0 The [facility] HospitalComment on above:Performed By: #### HIV12 #### [facility] [address] [place] [address] Dr. Juan Jose BandaHematocrit (Bld) [Volume fraction]36.0 %Gjbxiu03.0-48.0The [facility] HospitalComment on above:Performed By: #### HIV12 #### [facility] [address] [place] [address] Dr. Juan Jose BandaHemoglobin (Bld) [Mass/Vol]12.7 g/rQUampeg79.0-16.0The [facility] HospitalComment on above:Performed By: #### HIV12 #### [facility] [address] [place] [address] Dr. Juan Jose Daugherty #0.03 10e3/ulNormal0.00-0.03The [facility] HospitalComment on above:Performed By: #### HIV12 #### [facility] [address] [place] [address] Dr. Juan Jose BandaIG %0.4 %Normal0.0-0.5The [facility] HospitalComment on above: Performed By: #### HIV12 #### [facility] [address] [place] [address] Dr. Juan Jose Banerjee #2.4 103/ulNormal1.2-3.8The [facility] HospitalComment on above:Performed By: #### HIV12 #### [facility] [address] [place] [address] Dr. Yilan ChangLymphocytes/100 WBC (Bld)29.8 %Umbkfc21.5-60.0The [facility] HospitalComment on above:Performed By: #### HIV12 #### [facility] [address] [place] [address] Dr. Juan Jose Ramirez DIFF REQNONormalThe [facility] HospitalComment on above: Performed By: #### HIV12 #### [facility] [address] [place] [address] Dr. Juan Jose Toure (RBC) [Entitic mass]29.9 imOpusxw05.7-34.0The [facility] HospitalComment on above:Performed By: #### HIV12 #### [facility] [address] [place] [address] Dr. Juan Jose Toure (RBC) [Mass/Vol]35.3 g/dLCritically high29.9-35.2The [facility] HospitalComment on above:Performed By: #### HIV12 #### [facility] [address] [place] [address] Dr. Juan Jose Cisneros (RBC) [Entitic vol]84.7 nNWvlpjy57.0-99.0The [facility] HospitalComment on above:Performed By: #### HIV12 #### [facility] [address] [place] [address] Dr. Juan Jose Pedro #0.8 103/ulNormal0.3-0.8The [facility] HospitalComment on above:Performed By: #### HIV12 #### [facility] [address] [place] [address] Dr. Juan Jose Puriocytes/100 WBC (Bld)9.4 %Normal1.7-12.0The [facility] Comment on above:Performed By: #### HIV12 #### [facility] [address] [place] [address] Dr. Juan Jose Farr #4.8 103/ulNormal1.4-6.5The [facility] HospitalComment on above:Performed By: #### HIV12 #### [facility] [address] [place] [address] Dr. Juan Jose Valerioophils/100 WBC (Bld)58.7 %Dfojgk80.0-75.0The [facility] HospitalComment on above:Performed By: #### HIV12 #### [facility] [address] [place] [address] Dr. Juan Jose Ambrose mean volume (Bld) [Entitic vol]11.5 fLNormal9.5-13.5The [facility] HospitalComment on above:Performed By: #### HIV12 #### [facility] [address] [place] [address] Dr. Juan Jose BandaPLT218 103/fxCqtnrq908-495Ndp [facility]Com[facility] on above: Performed By: #### HIV12 #### [facility] [address] [place] [address] Dr. Juan Jose BandaRBC4.25 106/ulNormal4.20-5.40The [facility] on above:Performed By: #### HIV12 #### [facility] [address] [place] [address] Dr. Juan Jose BandaWBC8.2 103/ulNormal4.0-11.0The [facility] on above: Performed By: #### HIV12 #### [facility] [address] [place] [address] Dr. Juan Jose Pimentel URINE PROFILEon 81-06-4847Yzyvzqoru Ql (U)NegativeNormal NEGATIVEThe [facility]Com[facility] on above:Performed By: #### RPRQ #### [facility] [address] [place] [address] Dr. Juan Jose BandaClarity (U)CLEARNormalCLEARThe [facility] HospitalComment on above: Performed By: #### RPRQ #### [facility] [address] [place] [address] Dr. Juan Jose Oliver (U)LT. YELLOWNormalYELLOWThe [facility] HospitalComment on above:Performed By: #### RPRQ #### [facility] [address] [place] [address] Dr. Juan Jose Mtz micrscopic examination will be performed if indicated. NormalThe Amboy HospitalComment on above:Performed By: #### RPRQ #### [facility] [address] [place] [address] Dr. Juan Jose BandaGlucose Ql (U)NegativeNormalNEGATIVEChildren'S Hospital Of ColumbusComment on above:Performed By: #### RPRQ #### [facility] [address] [place] [address] Dr. Juan Jose BandaHemoglobin Ql (U)NegativeNormalNEGOhio State University [facility] Medical [facility] Comment on above:Performed By: #### RPRQ #### [facility] [address] [place] [address] Dr. Juan Jose BandaKetones Ql (U)TRACEAbnormalNEGATIVEChildren'S Hospital Of ColumbusComment on above:Performed By: #### RPRQ #### [facility] [address] [place] [address] Dr. Juan Jose BandaLEUKOCYTESSMALLAbnormalNEGATIVEChildren'S Hospital Of ColumbusComment on above:Performed By: #### RPRQ #### [facility] [address] [place] [address] Dr. Juan Jose BandaNitrite Ql (U)NegativeNormalNEGATIVEChildren'S Hospital Of ColumbusComment on above:Performed By: #### RPRQ #### [facility] [address] [place] [address] Dr. Juan Jose BandapH (U)5.5 [pH]Normal5-9Children[facility] Hospital Of ColumbusComment on above: Performed By: #### RPRQ #### [facility] [address] [place] [address] Dr. Juan Jose BandaSPEC GRAVITY1.815Lwzgsm8.005-<=1.025Children[facility]S Hospital Of ColumbusComment on above:Performed By: #### RPRQ #### [facility] [address] [place] [address] Dr. Juan Jose BandaUA PROTEINNegativeNormalNEGATIVE/ TRACEChildren'S Hospital Of Columbus Comment on above:Performed By: #### RPRQ #### [facility] [address] [place] [address] Dr. Juan Jose Anne MICRO INDINDICATEDSt. John of God HospitalComment on above: Performed By: #### RPRQ #### [facility] [address] [place] [address] Dr. Juan Jose Ewing Qn (U)0.2 {Tyler'U}/dLNormal0.2 - 1.0The [facility] HospitalComment on above:Performed By: #### RPRQ #### [facility] [address] [place] [address] Dr. Juan Jose Hamm QUANT HCGon [id number] CFWNR3477 mIU/mLNormalThe [facility] HospitalComment on above:Performed By: #### URCX #### [facility] [address] [place] [address] Dr. Juan Jose Jessica RANGESEE BELOWSt. John of God HospitalComment on above: Result Comment: 5-50 0.2-1 WEEK 50-500 1-2 WEEKS 100-5,000 2-3 WEEKS 500-10,000 3-4 WEEKS 1,000-50,000 4-5 WEEKS 10,000-100,000 5-6 WEEKS 15,000-200,000 6-8 WEEKS 10,000-100,000 2-3 MONTHSPerformed By: #### URCX #### [facility] [address] [place] [address] Dr. Juan Jose BandaPROF 14(COMP METB)on [id number] [Mass/Vol]3.7 g/dLNormal 3.4-5.0The [facility] HospitalComment on above:Performed By: #### HIV12 #### [facility] [address] [place] [address] Dr. Juan Jose BandaAlbumin/Globulin [Mass ratio]1.4 {ratio}NormalThe [facility] HospitalComment on above:Performed By: #### HIV12 #### [facility] [address] [place] [address] Dr. Juan Jose GregoryP [Catalytic activity/Vol]66 U/JOvqsyw69-093Txq [facility] HospitalComment on above:Performed By: #### HIV12 #### [facility] [address] [address] [address] Juan Jose Stafford [Catalytic activity/Vol]18 U/UBnvoej29-18Wpk [facility] HospitalComment on above:Performed By: #### HIV12 #### [facility] [address] [address] [address] Juan Jose Arzolaon gap [Moles/Vol]11.5 mmol/LNormalChildren'S Hospital Of Columbus Comment on above:Performed By: #### HIV12 #### [facility] [address] [place] [address] Dr. Juan Jose BandaAST [Catalytic activity/Vol]10 U/LCritically uyw57-00NnhChildren'S Hospital Of ColumbusComment on above:Performed By: #### HIV12 #### [facility] [address] [place] [address] Dr. Juan Jose BandaBilirubin [Mass/Vol]0.4 mg/dLNormal0.2-1.0[facility] Comment on above:Performed By: #### HIV12 #### [facility] [address] [place] [address] Dr. Juan Jose BandaCalcium [Mass/Vol]8.3 mg/dLCritically low8.5-10.1[facility] Of ColumbusComment on above:Performed By: #### HIV12 #### [facility] [address] [place] [address] Dr. Juan Jose BandaChloride [Moles/Vol]104 mmol/FIncgko63-192YzsChildren'S Hospital Of Columbus Comment on above:Performed By: #### HIV12 #### [facility] [address] [place] [address] Dr. Juan Jose BandaCO2 [Moles/Vol]27.3 mmol/NPffugy30.0-32.0[facility] Comment on above:Performed By: #### HIV12 #### [facility] [address] [place] [address] Dr. Juan Jose BandaCreatinine [Mass/Vol]0.72 mg/dLNormal0.55-1.02Children[facility] Hospital Of ColumbusComment on above:Performed By: #### HIV12 #### [facility] [address] [place] [address] Dr. Juan Jose Phan-AF FINNISH>60Normal>=60The [facility] HospitalComment on above:Performed By: #### HIV12 #### [facility] [address] [address] [address] Juan Jose Phan-NON AF FINNISH>60Normal>=60Children[facility] Hospital Of ColumbusComment on above:Performed By: #### HIV12 #### [facility] [address] [address] [address] Juan Jose BandaGlobulin (S) [Mass/Vol]2.7 g/dLNormalThe [facility] HospitalComment on above:Performed By: #### HIV12 #### [facility] [address] [place] [address] Dr. Juan Jose BandaGlucose [Mass/Vol]95 mg/xIGljqph19-094IjsChildren'S Hospital Of Columbus Comment on above:Performed By: #### HIV12 #### [facility] [address] [place] [address] Dr. Juan Jose BandaPotassium [Moles/Vol]3.8 mmol/LNormal3.5-5.1[facility] Comment on above:Performed By: #### HIV12 #### [facility] [address] [address] [address] Juan Jose BandaProtein [Mass/Vol]6.4 g/dLNormal6.4-8.2[facility] Comment on above:Performed By: #### HIV12 #### [facility] [address] [address] [address] Juan Jose BandaSodium [Moles/Vol]139 mmol/XZpuodq451-814IivChildren'S Hospital Of Columbus Comment on above:Performed By: #### HIV12 #### [facility] [address] [address] [address] Juan Jose BandaUrea nitrogen [Mass/Vol]9.0 mg/dLNormal6.4-19.3The [facility] HospitalComment on above:Performed By: #### HIV12 #### [facility] [address] [address] [address] Juan Jose BandaUrea nitrogen/Creatinine [Mass ratio]12.5 mg/mgNoDayton Osteopathic HospitalComascension st. [facility] on above:Performed By: #### HIV12 #### [facility] [address] [address] [address] Juan Jose France MICROSCOPIC ONLYon [id number]YHU SEEN [facility]Com[facility] on above:Performed By: #### RPRQ #### [facility] [address] [address] [address] Juan Jose Batres identified Cx Nom (U)INDICATEDSt. John of God HospitalComascension st. j[facility] hospital on above:Performed By: #### RPRQ #### [facility] [address] [address] [address] Juan Jose Dao SEENNormalNONE [facility]ENSouthern [facility] on above:Performed By: #### RPRQ #### [facility] [address] [address] [address] Juan Jose Stevensonystals LM Nom (Urine sed)NONE SEENNormalNONE SEENSouthern [facility] Center on above:Performed By: #### RPRQ #### [facility] [address] [address] [address] Ingram ChangEpithelial cells LM Ql (Urine sed)RARENormalNONE SEEN /RAREChildren'S Hospital Of ColumbusComascension st. john hospital on above:Performed By: #### RPRQ #### [facility] [address] [address] [address] Juan Jose TrippCOUSJASENE SEENNormflNONE SEENSouthern [facility] on above:Performed By: #### RPRQ #### [facility] [address] [address] [address] Juan Jose BandaRfgfzJTJ0-8Cpywdf3-9Dnd [facility] on above:Performed By: #### RPRQ #### [facility] [address] [address] [address] Juan Jose BandaOitdbGDE96-92KmipmlhpETGA SEENChildren'S Hospital Of ColumbusComment on above: Performed By: #### RPRQ #### [facility] [address] [address] [address] Juan Jose BandaCT ABD/PELVIS WO CONon [id number] ABD/PELVIS WO CONEXAMINATION: CT ABD/PELVIS WO CON, [...] Electronically authenticated by: ALICJA AVILA Date: 2022-04-29 03:19No[address] URINE PROFILEon [id number] Ql (U)NegativeNormal NEGATIVEChildren'S Hospital Of ColumbusComment on above:Performed By: #### CBCMAN #### [facility] [address] [address] [address] Juan Jose Crowell (U)SL CLOUDYAbnormalCLEARThMarymount HospitalComascension st. [facility] on above:Performed By: #### CBCMAN #### [facility] [address] [address] [address] Juan Jose Oliver (U)YELLOWNormalYELLOWChildren'S Hospital Of ColumbusComment on above: Performed By: #### CBCMAN #### [facility] [address] [address] [address] Juan Jose Mtz micrscopic examination will be performed if indicated. NormalChildren'S Hospital Of ColumbusComment on above:Performed By: #### CBCJESSICA #### [facility] [address] [address] [address] Juan Jose BandaGlucose Ql (U)NegativeNormalNEGATIVEChildren'S Hospital Of ColumbusComment on above:Performed By: #### CBCJESSICA #### [facility] [address] [address] [address] Juan Jose BandaHemoglobin Ql (U)NegativeNormalNEGOhio State University Wexner Medical Center Comment on above:Performed By: #### CBCJESSICA #### [facility] [address] [address] [address] Juan Jose BandaKetones Ql (U)NegativeNormalNEGATIVEChildren'S Hospital Of ColumbusComment on above:Performed By: #### CBCJESSICA #### [facility] [address] [place] [address] Dr. Juan Jose BandaLEUKOCYTESNegativeNormalNEGATIVEChildren'S Hospital Of ColumbusComment on above:Performed By: #### DOUG #### [facility] [address] [address] [address] Juan Jose BandaNitrite Ql (U)NegativeNormalNEGATIVEChildren'S Hospital Of ColumbusComment on above:Performed By: #### DOUG #### [facility] [address] [place] [address] Dr. Juan Jose BandapH (U)6.0 [pH]Normal5-9Children[facility] Hospital Of ColumbusComment on above: Performed By: #### CBCJESSICA #### [facility] [address] [address] [address] Juan Jose BandaSPEC GRAVITY>=1.325Rabpjrhz4.005-<=1.025[facility] Comment on above:Performed By: #### CBCJESSICA #### [facility] [address] [address] [address] Juan Jose BandaUA PROTEINNegativeNormalNEGATIVE/ TRACEChildren'S Hospital Of Columbus Comment on above:Performed By: #### CBCJESSICA #### [facility] [address] [address] [address] Juan Jose Anne MICRO INDNOT INDICATEDNormalThe [facility] HospitalComment on above:Performed By: #### DOUG #### [facility] [address] [place] [address] Dr. Juan Jose BandaUrobilinogen Qn (U)0.2 {Tyler'U}/dLNormal0.2 - 1.0The [facility] on above:Performed By: #### DOUG #### [facility] [address] [place] [address] Dr. Juan Jose BandaPREGNANCY URon [id number], QUALNegativeNormalNEGATIVEThe [facility] on above:Performed By: #### DOUG #### [facility] [address] [place] [address] Dr. Juan Jose BandaPROCALCITONINon 02-17-3414Pbsivuqakoccp1.04 ng/mLNormal0.00-0.08 The [facility] on above:Result Comment: . A procalcitonin (PCT) [...] ng/mL are obtained.Performed By: #### DOUG #### [facility] [address] [place] [address] Dr. Juan Jose AlanC AUTO DIFFon [id number] #0.0 103/ulNormal0.0-0.1The [facility] HospitalComment on above:Performed By: #### CBC #### [facility] [address] [place] [address] Dr. Juan Jose BandaBasophils/100 WBC (Bld)0.3 %Normal0.2-2.0The [facility] Comment on above:Performed By: #### CBC #### [facility] [address] [place] [address] Dr. Juan Jose Sims #0.2 103/ulNormal0.0-0.7The [facility] HospitalComment on above: Performed By: #### CBC #### [facility] [address] [place] [address] Dr. Juan Jose Faustosinophils/100 WBC (Bld)2.5 %Normal0.9-7.0The [facility] Comment on above:Performed By: #### CBC #### [facility] [address] [place] [address] Dr. Juan Jose Faustrythrocyte distribution width (RBC) [Ratio]11.6 %Kftagf17.0-15.0 The [facility] HospitalComment on above:Performed By: #### CBC #### [facility] [address] [place] [address] Dr. Juan Jose BandaHematocrit (Bld) [Volume fraction]38.2 %Qriumy11.0-48.0The [facility] HospitalComment on above:Performed By: #### CBC #### [facility] [address] [place] [address] Dr. Juan Jose BandaHemoglobin (Bld) [Mass/Vol]13.5 g/lUHuyffg97.0-16.0The [facility] HospitalComment on above:Performed By: #### CBC #### [facility] [address] [place] [address] Dr. Juan Jose Daugherty #0.01 10e3/ulNormal0.00-0.03The [facility] HospitalComment on above:Performed By: #### CBC #### [facility] [address] [place] [address] Dr. Juan Jose Daugherty %0.2 %Normal0.0-0.5The [facility] HospitalComment on above: Performed By: #### CBC #### [facility] [address] [place] [address] Dr. Juan Jose Banerjee #2.2 103/ulNormal1.2-3.8The [facility] HospitalComment on above:Performed By: #### CBC #### [facility] [address] [place] [address] Dr. Juan Jose Martinhocytes/100 WBC (Bld)33.3 %Luscrx13.5-60.0The [facility] HospitalComment on above:Performed By: #### CBC #### [facility] [address] [place] [address] Dr. Juan Jose Ramirez DIFF REQNONormalThe [facility] HospitalComment on above: Performed By: #### CBC #### [facility] [address] [place] [address] Dr. Juan Jose Medeiros (RBC) [Entitic mass]29.6 anRedajw84.7-34.0The [facility] HospitalComment on above:Performed By: #### CBC #### [facility] [address] [place] [address] Dr. Juan Jose Toure (RBC) [Mass/Vol]35.3 g/dLCritically high29.9-35.2The [facility] HospitalComment on above:Performed By: #### CBC #### [facility] [address] [place] [address] Dr. Juan Jose Cisneros (RBC) [Entitic vol]83.8 vCRizzpp11.0-99.0The [facility] HospitalComment on above:Performed By: #### CBC #### [facility] [address] [place] [address] Dr. Juan Jose Pedro #0.7 103/ulNormal0.3-0.8The [facility] HospitalComment on above:Performed By: #### CBC #### [facility] [address] [place] [address] Dr. Juan Jose Puriocytes/100 WBC (Bld)10.2 %Normal1.7-12.0The [facility] Comment on above:Performed By: #### CBC #### [facility] [address] [place] [address] Dr. Juan Jose NyeUT #3.5 103/ulNormal1.4-6.5The [facility] HospitalComment on above:Performed By: #### CBC #### [facility] [address] [place] [address] Dr. Juan Jose Nyeutrophils/100 WBC (Bld)53.5 %Qlhxtd35.0-75.0The [facility] HospitalComment on above:Performed By: #### CBC #### [facility] [address] [place] [address] Dr. Juan Jose Muñozlet mean volume (Bld) [Entitic vol]11.9 fLNormal9.5-13.5The [facility] HospitalComment on above:Performed By: #### CBC #### [facility] [address] [place] [address] Dr. Juan Jose BandaPLT200 103/deWsgycc307-968Wzh [facility] HospitalComment on above: Performed By: #### CBC #### [facility] [address] [place] [address] Dr. Juan Jose BandaRBC4.56 106/ulNormal4.20-5.40The [facility] HospitalComment on above:Performed By: #### CBC #### [facility] [address] [place] [address] Dr. Juan Jose BandaWBC6.5 103/ulNormal4.0-11.0The [facility] HospitalComment on above: Performed By: #### CBC #### [facility] [address] [place] [address] Dr. Juan Jose BandaCT ABD/PELV W CONon [id number] ABD/PELV W CONEXAMINATION: CT ABD/PELV W CON [...] Electronically authenticated by: YO TO Date: 2022-04-10 08:[address] [place], [place] [address]GROUP A STREP CULTUREon 04-10-2022. pyogenes Ag Ql (Unsp spec) Culture Observations: NEGATIVE FOR GROUP A STREPTOCOCCUS.NormalThe [facility] HospitalComment on above: Performed By: #### URCX #### [facility] [address] [place] [address] Dr. Juan Jose BandaLACTATE/LACTIC ACIDon 31-61-1883Qlvnaid [Moles/Vol]0.9 mmol/L Normal0.4-1.9The [facility] HospitalComment on above:Performed By: #### URCX #### [facility] [address] [address] [address] Juan Jose BandaLactate [Moles/Vol]2.5 mmol/LCritically high0.4-1.9The [facility] HospitalComment on above:Performed By: #### URCX #### [facility] [address] [place] [address] Dr. Juan Jose Hamm HCG QUALon 77-33-9450USGEYNBJG, QUALNegativeNormalNEGATIVE The [facility] HospitalComment on above:Performed By: #### SEDR #### [facility] [address] [place] [address] Dr. Juan Jose Oneill 14(COMP METB)on 06-53-7123Zdfdijn [Mass/Vol]4.3 g/dLNormal 3.4-5.0The [facility] HospitalComment on above:Performed By: #### CBCMAN #### [facility] [address] [place] [address] Dr. Juan Jose BandaAlbumin/Globulin [Mass ratio]1.8 {ratio}NormalThe [facility] HospitalComment on above:Performed By: #### CBCMAN #### [facility] [address] [place] [address] Dr. Juan Jose Hugo [Catalytic activity/Vol]92 U/WJucjer06-190Fyc [facility] HospitalComment on above:Performed By: #### MAINEMAN #### [facility] [address] [place] [address] Dr. Juan Jose Stafford [Catalytic activity/Vol]20 U/LJlflty16-61Hsf [facility] HospitalComment on above:Performed By: #### CBCMAN #### [facility] [address] [place] [address] Dr. Juan Jose Mcmahon gap [Moles/Vol]15.4 mmol/LNormalThe [facility] on above:Performed By: #### CBCMAN #### [facility] [address] [place] [address] Dr. Juan Jose Linton [Catalytic activity/Vol]17 U/MIxsgzd77-28Joa [facility] HospitalComment on above:Performed By: #### CBCMAN #### [facility] [address] [address] [address] Juan Jose BandaBilirubin [Mass/Vol]1.2 mg/dLCritically high0.2-1.0[facility] ColumbusComment on above:Performed By: #### CBCJESSICA #### [facility] [address] [place] [address] Dr. Juan Jose BandaCalcium [Mass/Vol]8.8 mg/dLNormal8.5-10.1The [facility] Comment on above:Performed By: #### DOUG #### [facility] [address] [place] [address] Dr. Juan Jose BandaChloride [Moles/Vol]107 mmol/QIxuadk51-451QjjChildren'S Hospital Of Columbus Comment on above:Performed By: #### DOUG #### [facility] [address] [place] [address] Dr. Juan Jose BandaCO2 [Moles/Vol]23.0 mmol/VPchjxy41.0-32.0[facility] Comment on above:Performed By: #### CBCJESSICA #### [facility] [address] [place] [address] Dr. Juan Jose BandaCreatinine [Mass/Vol]0.95 mg/dLNormal0.55-1.02The [facility] HospitalComment on above:Performed By: #### CBCJESSICA #### [facility] [address] [place] [address] Dr. Juan Jose BandaGlobulin (S) [Mass/Vol]2.4 g/dLNormalThe [facility] HospitalComment on above:Performed By: #### CBCJESSICA #### [facility] [address] [place] [address] Dr. Juan Jose BandaGlucose [Mass/Vol]95 mg/aHRxehpc59-323HljChildren'S Hospital Of Columbus Comment on above:Performed By: #### CBCJESSICA #### [facility] [address] [place] [address] Dr. Juan Jose BandaPotassium [Moles/Vol]3.4 mmol/LCritically low3.5-5.1The [facility] HospitalComment on above:Performed By: #### DOUG #### [facility] [address] [place] [address] Dr. Juan Jose BandaProtein [Mass/Vol]6.7 g/dLNormal6.4-8.2The [facility] Comment on above:Performed By: #### DOUG #### [facility] [address] [place] [address] Dr. Juan Jose BandaSodium [Moles/Vol]142 mmol/XYayfai971-994Sdx [facility] Comment on above:Performed By: #### DOUG #### [facility] [address] [place] [address] Dr. Juan Jose BandaUrea nitrogen [Mass/Vol]13.0 mg/dLNormal6.4-19.3The [facility] HospitalComment on above:Performed By: #### DOUG #### [facility] [address] [place] [address] Dr. Juan Jose Thompson nitrogen/Creatinine [Mass ratio]13.7 mg/mgNormalThe [facility] HospitalComment on above:Performed By: #### DOUG #### [facility] [address] [place] [address] Dr. Juan Jose Barton RATE WESTERGRENon 48-28-5522VIU RATE1 mm/hrNormal<=20The [facility] HospitalComment on above:Performed By: #### SEDR #### [facility] [address] [place] [address] Dr. Juan Jose BandaSTREPT SCREENon 95-17-4931NALUC SCREEN ANegativeNormalNEGATIVEThe [facility] HospitalComment on above:Performed By: #### URCX #### [facility] [address] [place] [address] Dr. Juan Jose BandaAMYLASEon 43-16-1987Wyoqibd [Catalytic activity/Vol]29 U/LNormal 25-115The [facility] HospitalComment on above:Performed By: #### HIV12 #### [facility] [address] [place] [address] Dr. Juan Jose Rosado AUTO DIFFon 87-39-9821HLQQ #0.0 103/ulNormal0.0-0.1The [facility] HospitalComment on above:Performed By: #### RPRQ #### [facility] [address] [place] [address] Dr. Juan Jose BandaBasophils/100 WBC (Bld)0.4 %Normal0.2-2.0The [facility] Comment on above:Performed By: #### RPRQ #### [facility] [address] [place] [address] Dr. Juan Jose Sims #0.1 103/ulNormal0.0-0.7The [facility] HospitalComment on above: Performed By: #### RPRQ #### [facility] [address] [place] [address] Dr. Juan Jose Faustosinophils/100 WBC (Bld)1.4 %Normal0.9-7.0The [facility] Comment on above:Performed By: #### RPRQ #### [facility] [address] [place] [address] Dr. Juan Jose Faustrythrocyte distribution width (RBC) [Ratio]11.5 %Uxpqcd38.0-15.0 The [facility] HospitalComment on above:Performed By: #### RPRQ #### [facility] [address] [place] [address] Dr. Juan Jose BandaHematocrit (Bld) [Volume fraction]36.5 %Marqmx06.0-48.0The [facility] HospitalComment on above:Performed By: #### RPRQ #### [facility] [address] [place] [address] Dr. Juan Jose BandaHemoglobin (Bld) [Mass/Vol]13.0 g/uFTkufle35.0-16.0The [facility] HospitalComment on above:Performed By: #### RPRQ #### [facility] [address] [place] [address] Dr. Juan Jose Daugherty #0.02 10e3/ulNormal0.00-0.03The [facility] HospitalComment on above:Performed By: #### RPRQ #### [facility] [address] [place] [address] Dr. Juan Jose Daugherty %0.3 %Normal0.0-0.5The [facility] HospitalComment on above: Performed By: #### RPRQ #### [facility] [address] [place] [address] Dr. Juan Jose Banerjee #2.4 103/ulNormal1.2-3.8The [facility] HospitalComment on above:Performed By: #### RPRQ #### [facility] [address] [place] [address] Dr. Juan Jose Martinhocytes/100 WBC (Bld)31.4 %Eehwpa69.5-60.0The [facility] HospitalComment on above:Performed By: #### RPRQ #### [facility] [address] [place] [address] Dr. Juan Jose FullerUAL DIFF REQNONormalThe [facility] HospitalComment on above: Performed By: #### RPRQ #### [facility] [address] [place] [address] Dr. Juan Jose Toure (RBC) [Entitic mass]29.8 gvVuxfjy90.7-34.0The [facility] HospitalComment on above:Performed By: #### RPRQ #### [facility] [address] [place] [address] Dr. Juan Jose Toure (RBC) [Mass/Vol]35.6 g/dLCritically high29.9-35.2The [facility] HospitalComment on above:Performed By: #### RPRQ #### [facility] [address] [place] [address] Dr. Juan Jose Toure (RBC) [Entitic vol]83.7 gEWobxbw16.0-99.0The [facility] HospitalComment on above:Performed By: #### RPRQ #### [facility] [address] [place] [address] Dr. Juan Jose Pedro #0.9 103/ulCritically high0.3-0.8The [facility] Comment on above:Performed By: #### RPRQ #### [facility] [address] [place] [address] Dr. Juan Jose Puriocytes/100 WBC (Bld)11.1 %Normal1.7-12.0The [facility] Comment on above:Performed By: #### RPRQ #### [facility] [address] [place] [address] Dr. Juan Jose Farr #4.3 103/ulNormal1.4-6.5The [facility] HospitalComment on above:Performed By: #### RPRQ #### [facility] [address] [place] [address] Dr. Juan Jose Nyeutrophils/100 WBC (Bld)55.4 %Iaxoxq52.0-75.0The [facility] HospitalComment on above:Performed By: #### RPRQ #### [facility] [address] [place] [address] Dr. Juan Jose BandaPlatelet mean volume (Bld) [Entitic vol]11.6 fLNormal9.5-13.5The [facility] HospitalComment on above:Performed By: #### RPRQ #### [facility] [address] [place] [address] Dr. Juan Jose BandaPLT187 103/cxXuvjbu451-181Wvb [facility] HospitalComment on above: Performed By: #### RPRQ #### [facility] [address] [place] [address] Dr. Juan Jose BandaRBC4.36 106/ulNormal4.20-5.40The [facility] HospitalComment on above:Performed By: #### RPRQ #### [facility] [address] [place] [address] Dr. Juan Jose BandaWBC7.7 103/ulNormal4.0-11.0The [facility] HospitalComment on above: Performed By: #### RPRQ #### [facility] [address] [address] [address] Juan Jose Pimentel URINE PROFILEon 59-90-4212Ehodqyzso Ql (U)SMALLAbnormal NEGATIVEChildren'S Hospital Of ColumbusComascension st[facility] on above:Performed By: #### URCX #### [facility] [address] [place] [address] Dr. Juan Jose BandaClarity (U)CLEARNormalCLEARChildren'S Hospital Of ColumbusComascension st[facility] j[facility] on above: Performed By: #### URCX #### [facility] [address] [address] [address] Juan Jose BandaColor (U)YELLOWNormalYELLOWChildren'S Hospital Of ColumbusComment on above: Performed By: #### URCX #### [facility] [address] [place] [address] Dr. Juan Jose Mtz micrscopic examination will be performed if indicated. NormalChildren'S Hospital Of ColumbusComment on above:Performed By: #### URCX #### [facility] [address] [place] [address] Dr. Juan Jose BandaGlucose Ql (U)NegativeNormalNEGATIVEChildren'S Hospital Of ColumbusComascension st[facility] on above:Performed By: #### URCX #### [facility] [address] [place] [address] Dr. Juan Jose BandaHemoglobin Ql (U)NegativeNormalNEGOhio State University [facility] Comment on above:Performed By: #### URCX #### [facility] [address] [place] [address] Dr. Juan Jose BandaKetones Ql (U)40 mg/dlAbnormalNEGOhio State University [facility] Comment on above:Performed By: #### URCX #### [facility] [address] [place] [address] Dr. Juan Jose BandaLEUKOCYTESNegativeNormalNEGATIVEChildren'S Hospital Of ColumbusComascension st[facility] on above:Performed By: #### URCX #### [facility] [address] [place] [address] Dr. Juan Jose BandaNitrite Ql (U)NegativeNormalNEGATIVEChildren'S Hospital Of ColumbusComment on above:Performed By: #### URCX #### [facility] [address] [place] [address] Dr. Juan Jose BandapH (U)5.5 [pH]Normal5-9The [facility] HospitalComment on above: Performed By: #### URCX #### [facility] [address] [place] [address] Dr. Juan Jose BandaSPEC GRAVITY1.018Osjzprfz5.005-<=1.025The [facility] Comment on above:Performed By: #### URCX #### [facility] [address] [place] [address] Dr. Juan Jose BandaUA PROTEINNegativeNormalNEGATIVE/ TRACEThe [facility] Comment on above:Performed By: #### URCX #### [facility] [address] [place] [address] Dr. Juan Jose Anne MICRO INDNOT INDICATEDNormalThMarymount HospitalComment on above:Performed By: #### URCX #### [facility] [address] [place] [address] Dr. Juan Jose BandaUrobilinogen Qn (U)0.2 {Tyler'U}/dLNormal0.2 - 1.0The [facility] HospitalComment on above:Performed By: #### URCX #### [facility] [address] [place] [address] Dr. Juan Jose BandaLIPASEon 23-18-2452Qlkcct [Catalytic activity/Vol]77.0 U/LNormal 73.0-393.0The [facility] HospitalComment on above:Performed By: #### HIV12 #### [facility] [address] [place] [address] Dr. Juan Jose BandaPREGNANCY URon 71-52-8818VUEDRGOEF, QUALNegativeNormalNEGATIVEChildren'S Hospital Of ColumbusComment on above:Performed By: #### URCX #### [facility] [address] [place] [address] Dr. Yilan ChangPROF 14(COMP METB)on 34-46-9001Etdpdbh [Mass/Vol]4.4 g/dLNormal 3.4-5.0The [facility] HospitalComment on above:Performed By: #### HIV12 #### [facility] [address] [place] [address] Dr. Juan Jose BandaAlbumin/Globulin [Mass ratio]1.5 {ratio}NormalThe [facility] HospitalComment on above:Performed By: #### HIV12 #### [facility] [address] [place] [address] Dr. Juan Jose GregoryP [Catalytic activity/Vol]97 U/GCqlvlm14-411Jaw [facility] HospitalComment on above:Performed By: #### HIV12 #### [facility] [address] [place] [address] Dr. Juan Jose Stafford [Catalytic activity/Vol]16 U/BKualcg86-35Uco [facility] HospitalComment on above:Performed By: #### HIV12 #### [facility] [address] [place] [address] Dr. Juan Jose Mcmahon gap [Moles/Vol]15.4 mmol/LNormalThe [facility] Comment on above:Performed By: #### HIV12 #### [facility] [address] [place] [address] Dr. Juan Jose BandaAST [Catalytic activity/Vol]19 U/HAltyfj70-74Acn [facility] HospitalComment on above:Performed By: #### HIV12 #### [facility] [address] [place] [address] Dr. Juan Jose BandaBilirubin [Mass/Vol]0.9 mg/dLNormal0.2-1.0The [facility] Comment on above:Performed By: #### HIV12 #### [facility] [address] [place] [address] Dr. Juan Jose BandaCalcium [Mass/Vol]9.2 mg/dLNormal8.5-10.1The [facility] Comment on above:Performed By: #### HIV12 #### [facility] [address] [place] [address] Dr. Juan Jose BandaChloride [Moles/Vol]107 mmol/VYizazl71-454RueChildren'S Hospital Of Columbus Comment on above:Performed By: #### HIV12 #### [facility] [address] [address] [address] Juan Jose BandaCO2 [Moles/Vol]22.2 mmol/SBuzulx23.0-32.0[facility] Comment on above:Performed By: #### HIV12 #### [facility] [address] [address] [address] Juan Jose BandaCreatinine [Mass/Vol]0.94 mg/dLNormal0.55-1.02The [facility] HospitalComment on above:Performed By: #### HIV12 #### [facility] [address] [place] [address] Dr. Juan Jose FaustGFR-AF FINNISH>60Normal>=60The [facility] HospitalComment on above:Performed By: #### HIV12 #### [facility] [address] [place] [address] Dr. Juan Jose FaustGFR-NON AF FINNISH>60Normal>=60The [facility] HospitalComment on above:Performed By: #### HIV12 #### [facility] [address] [place] [address] Dr. Juan Jose BandaGlobulin (S) [Mass/Vol]2.9 g/dLNormalThe [facility] HospitalComment on above:Performed By: #### HIV12 #### [facility] [address] [place] [address] Dr. Juan Jose BandaGlucose [Mass/Vol]93 mg/iBRntept64-624MzqChildren'S Hospital Of Columbus Comment on above:Performed By: #### HIV12 #### [facility] [address] [place] [address] Dr. Juan Jose BandaPotassium [Moles/Vol]3.6 mmol/LNormal3.5-5.1The [facility] Comment on above:Performed By: #### HIV12 #### [facility] [address] [place] [address] Dr. Juan Jose BandaProtein [Mass/Vol]7.3 g/dLNormal6.4-8.2[facility] Comment on above:Performed By: #### HIV12 #### [facility] [address] [address] [address] Juan Jose BandaSodium [Moles/Vol]141 mmol/UXcvghj812-050Pkk [facility] Comment on above:Performed By: #### HIV12 #### [facility] [address] [address] [address] Juan Jose BandaUrea nitrogen [Mass/Vol]14.0 mg/dLNormal6.4-19.3The [facility] HospitalComment on above:Performed By: #### HIV12 #### [facility] [address] [address] [address] Juan Jose Thompson nitrogen/Creatinine [Mass ratio]14.9 mg/mgNormalThe [facility] HospitalComment on above:Performed By: #### HIV12 #### [facility] [address] [address] [address] Juan Jose BandaHCG-BETA SUBUNIT QUANTon 84-71-1387eRF,Beta Subunit,Qnt,Serum<1 NormalThe [facility] HospitalComment on above:Result Comment: Female (Non- ) 0 - 5 (Postmenopausal) 0 - 8 . Female () Weeks of Gestation 3 6 - 71 4 10 - 750 5 217 - 7138 6 158 - 56293 7 5261 -182021 8 54293 -395554 9 96054 -091039 10 10276 -685304 12 12348 -460014 14 26208 - 58671 15 55141 - 82916 16 3935 - 78994 17 0842 - 08394 18 8414 - 52396 Serena ECLIA methodologyPerformed By: #### RPRQ #### [facility] [address] [place], [place] [address] Dr. Juan Jose Banda Vital Signs Date TimeVital SignValuePerforming KrterjlebWiucjaxt81-65-4923 08:55-0500Body rhfkno21.16 kgRashard Burns MD Work Phone: [facility]11-10-2025 08:55-0500 Diastolic blood hvegsweg41 mm[Hg]Rashard Burns MD Work Phone: [phone]11-10-2025 08:55-0500 Heart rate83 /Mg Burns MD Work Phone: [phone]11-10-2025 08:55-0500 SaO2% (BldA) [Mass fraction]95 %Rashard Burns MD Work Phone: [phone]11-10-2025 08:55-0500 Systolic blood tdhzytsq636 mm[Hg]Rashard Burns MD Work Phone: [phone]11-03-2025 16:03-0500 Body mass index (BMI) [Ratio]26.63 kg/m2Amy Poly PA Work Phone: [facility] CenterMuiwhapepv74-29-6451 16:03-0500Body .84 kgAmy Poly PA Work Phone: [phone] [place], [place] [address]Svqewnmjqz67-69-3831 16:03-0500Diastolic blood awxuebcq60 mm[Hg]Gogo Pang PA Work Phone: [phone] [place], [place] [address]Naruadjybs37-47-9215 16:03-0500Systolic blood akxiamme574 mm[Hg]Gogo Pang PA Work Phone: [phone] [place], [place] [address]Oficeyggpk32-79-1265 16:15-0400Body mass index (BMI) [Ratio]25.89 kg/q9Vhvcp Yasmin DO Work Phone: [phone] [place], [place] [address]Jagojvdvdo84-74-5250 16:15-0400Body .76 kgCorey Yasmin DO Work Phone: [phone] [place], [place] [address]Htljtcgoym93-56-2332 16:15-0400Diastolic blood xtathhnj33 mm[Hg]Wolfgang Yasmin DO Work Phone: [phone] [place], [place] [address]Ptsguhtdox97-31-5508 16:15-0400Systolic blood yczbsyqd540 mm[Hg]Wolfgang Yasmin DO Work Phone: [phone] [place], [place] [address]Yqunifolkl17-94-9825 15:50-0400Body mass index (BMI) [Ratio]24.99 kg/d1JibxqsmmElvia Gustafsonly COMMUNITY SERVICES OFFICER Work Phone: [phone] [place] [address]-06-2025 15:50-0400Body iieucy48.22 kgKrpoojaa Rajinder COMMUNITY SERVICES OFFICER Work Phone: [phone] [place] [address]-06-2025 15:50-0400Diastolic blood mm[Hg]Elvia Rajinder COMMUNITY SERVICES OFFICER Work Phone: [phone] [place], [place] [address]10-06-2025 15:50-0400Systolic blood gtishpnj934 mm[Hg]Elvia Rajinder COMMUNITY SERVICES OFFICER Work Phone: [phone] [place], [place] [address]9-22-2025 15:42-0400Body mass index (BMI) [Ratio]24.37 kg/w0Ybwrg Yasmin DO Work Phone: [phone] [place], [place] [address]Hyozsbqkvj50-81-3054 15:42-0400Body eiksab52.49 kgCorey Yasmin DO Work Phone: [phone] [place], [place] [address]Rabsosmiou40-02-3573 15:42-0400Diastolic blood wixugvcg94 mm[Hg]Wolfgang Yasmin DO Work Phone: [phone] [place] [address]-22-2025 15:42-0400Systolic blood fufeijwe689 mm[Hg]Wolfgang Yasmin DO Work Phone: [phone] [place], [place] [address]Eudsgsdzaj71-10-5221 15:25-0400Body mass index (BMI) [Ratio]24.45 kg/a0FmxgnxhxElvia Montoyaerly COMMUNITY SERVICES OFFICER Work Phone: [phone] [place] [address]-10-2025 15:25-0400Body xjpytt08.72 kgKrpoojaa Rajinder COMMUNITY SERVICES OFFICER Work Phone: [phone] [place] [address]-10-2025 15:25-0400Diastolic blood iuvzinuo84 mm[Hg]Elvia Rajinder COMMUNITY SERVICES OFFICER Work Phone: [phone] [place] [address]-10-2025 15:25-0400Systolic blood druiyybc271 mm[Hg]Elvia Rajinder COMMUNITY SERVICES OFFICER Work Phone: [phone] [place], [place] [address]Ggvctvfsnp88-68-7381 15:58-0400Body mass index (BMI) [Ratio]23.53 kg/h8Rjnor Yasmin DO Work Phone: [phone] [place], [place] [address]Mzipqswovb80-65-3013 15:58-0400Body qwctza36.13 kgCorey Yasmin DO Work Phone: [phone] [place], [place] [address]Zpjtchimuk89-46-6526 15:58-0400Diastolic blood mm[Hg]Wolfgang Yasmin DO Work Phone: [phone] [place], [place] [address]Qbqubhnwkp34-17-5323 15:58-0400Systolic blood yhqnnrot554 mm[Hg]Wolfgang Yasmin DO Work Phone: [phone] [place], [place] [address]7-21-2025 15:21-0400Body mass index (BMI) [Ratio]23.69 kg/r5Anvjn Yasmin DO Work Phone: [phone] [place], [place] [address]Ogtzafawvg88-26-3224 15:21-0400Body lnawth33.59 kgCorey Yasmin DO Work Phone: [phone] [place], [place] [address]Tupwllhfho90-60-7274 15:21-0400Diastolic blood miaihbyb40 mm[Hg]Wolfgang Yasmin DO Work Phone: [phone] [place], [place] [address]Otaimzopni84-93-1003 15:21-0400Systolic blood oneewqoh269 mm[Hg]Wolfgang Yasmin DO Work Phone: [phone] [place], [place] [address]5-27-2025 13:43-0400Body mass index (BMI) [Ratio]21.95 kg/t9Vuvgq Yasmin DO Work Phone: [phone] [place], [place] [address]5-27-2025 13:43-0400Body vqnuuu70.69 kgCorey Yasmin DO Work Phone: [phone] [place], [place] [address]Gdvvrweqqj85-42-0946 13:43-0400Diastolic blood knabgvst53 mm[Hg]Wolgfang Yasmin DO Work Phone: [phone] [place], [place] [address]Amtkqemtvp38-09-4680 13:43-0400Systolic blood qdnsdwyk013 mm[Hg]Wolfgang Yasmin DO Work Phone: [facility] CenterGpdxaaxzxv78-34-1592 13:24-0400Body mass index (BMI) [Ratio]22.11 kg/m2[facility]05-01-20[facility] 13:24-0400Body .14 kgSc[facility]05-01-2025 13:24-0400Diastolic blood hyoojdts80 mm[Hg][facility]05-01-2025 13:24-0400Systolic blood yydftnnm533 mm[Hg][facility] [facility]04-[facility]2025 11:15-0400Body mass index (BMI) [Ratio]21.69 kg/h1Aqtkd Yasmin Work Phone: [facility] CenterEzcifbqtaa08-11-3298 11:15-0400Body cjyekh27.96 kgWolfgang Hoffman DO Work Phone: [facility] CenterEfuaewuizs30-23-3582 11:15-0400Diastolic blood xerovjry94 mm[Hg]Wolfgang Hoffman DO Work Phone: [facility] CenterJqdmzaoolz38-70-7988 11:15-0400Systolic blood tpiqwlju428 mm[Hg]Wolfgang Hoffman DO Work Phone: [facility] CenterIdzldmncgp05-87-3235 10:03-0400Body .3 cmViki Patel HYDRO MECHANIC-MAKE UP ARTIST Work Phone: [facility]03-12-2024 10:03-0400Body mass index (BMI) [Ratio]19.73 kg/e9CncatxgViki Patel HYDRO MECHANIC-MAKE UP ARTIST Work Phone: [facility]03-12-2024 10:03-0400Body zdoowt47.6 kgViki Patel HYDRO MECHANIC-MAKE UP ARTIST Work Phone: [facility]03-12-2024 10:03-0400Diastolic blood ystpbofn19 mm[Hg]Viki Patel HYDRO MECHANIC-MAKE UP ARTIST Work Phone: [facility]03-12-2024 10:03-0400Heart rate 74 /minViki Patel HYDRO MECHANIC-MAKE UP ARTIST Work Phone: [facility]03-12-2024 10:03-0400Systolic blood kmksrivs347 mm[Hg]Viki Patel HYDRO MECHANIC-MAKE UP ARTIST Work Phone: [facility]02-21-2024 09:20-0500Body steewh480.3 [facility]02-21-2024 09:20-0500Body mass index (BMI) [Ratio]19.64 kg/m2Pmh [address] [place], [place] [address]02-21-2024 09:20-0500Body vzlmme52.[address] [place] [address] Encounters Encounter DateEncounter TypeCare ProviderFacilityStart: 06-17-2025 End: 65-56-6259bwbvipxgxmXskheoo M Hoy MD Work Phone: -[facility] [place]vueStart: 06-17-2025 End: 38-37-8237Lbrhqyq encounter procedureChristopher Nishant Zambrano DO-[facility] [place] Work Phone: Start: 06-10-2025 End: 46-23-5790iagchlovjhFXE RAMEYNot AvailableStart: 06-10-2025 End: 43-32-9844Elvwep outpatient visit 15 minutesAmy Poly MARTINEZ Work Phone: [facility] [place] OBGYNComment on above:Third trimester ([facility]); 35 weeks gestation of ([facility]); Psychogenic nonepileptic seizureStart: 06-10-2025 End: 65-13-5664Xtezhplso Result EncounterGogo MARTINEZ Work Phone: [facility] External Department UnsolicitedStart: 06-10-2025 End: 79-72-3548Bsaysslfp Result EncounterGogo MARTINEZ Work Phone: noMS External Department UnsolicitedStart: 05-27-2025 End: 99-65-9128Lmjzrn outpatient visit 15 minutesWolfgang Hoffman DO Work Phone: [facility] [place] OBGYNComment on above: size inconsistent with dates ([facility]) (Primary Dx); 33 weeks gestation of ([facility]); Third trimester ([facility]); Psychogenic nonepileptic seizureStart: 05-27-2025 End: 68-99-1857jalziiaoetZINQX FAZIONot AvailableStart: 05-27-2025 End: 50-22-8345Hmilhe flowsheetCorey Yasmin DO Work Phone: [facility] [place] OBGYNStart: 05-27-2025 End: 22-63-6658Qfjzfk flowsheetCorey Yasmin DO Work Phone: [facility] [place] [facility]BGYNStart: 05-13-2025 End: 86-00-4550Zjiuef outpatient visit 15 minutesElvia Calvillo COMMUNITY SERVICES OFFICER Work Phone: [facility] [place] OBGYNComment on above:31 weeks gestation of ([facility]); Third trimester ([facility])Start: 05-13-2025 End: 25-46-7510flqumcqlrfNKKJELRX EBERLYNot AvailableStart: 04-30-2025 End: 23-18-1497Xxuygadcq Result EncounterCorey Yasmin DO Work Phone: [facility] External Department UnsolicitedStart: 04-30-2025 End: 51-96-8007Zoyxwocnp Result EncounterCorey Yasmin DO Work Phone: [facility] External Department UnsolicitedStart: 04-29-2025 End: 71-49-2242Gcwctk outpatient visit 15 minutesCorey Yasmin DO Work Phone: [facility] [place] OBGYNComment on above:Third trimester ([facility]); 29 weeks gestation of ([facility]); Psychogenic nonepileptic seizure ; Diabetes mellitus screeningStart: 04-29-2025 End: 23-94-7337tytmtvvyteWNQGG FAZIONot AvailableStart: 04-29-2025 End: 15-73-9843Ouqxzp flowsheetCorey Yasmin DO Work Phone: [facility] [place] OBGYNStart: 04-29-2025 End: 70-98-0750Eeidbw flowsheetCorey Yasmin DO Work Phone: [facility] [place] OBGYNStart: 04-17-2025 End: 78-78-3219ztiqvetdwyDZDHYLCZ EBERLYNot AvailableStart: 04-17-2025 End: 84-99-2721Atqwpb outpatient visit 15 minutesElvia Calvillo NP Work Phone: [facility] [place] OBGYNComment on above:Third trimester ([facility]); 28 weeks gestation of ([facility])Start: 04-17-2025 End: 81-89-6608Bkcwgn Robert Calvillo NP Work Phone: [facility] [place] [facility]BGYNStart: 04-17-2025 End: 03-61-3297Zrqgxj Robert Calvillo NP Work Phone: [facility] [place] OBGYNStart: 04-03-2025 End: 49-16-3778dzrwdziyjkNCSAM FAZIONot AvailableStart: 04-03-2025 End: 60-49-3870Cxlcxn outpatient visit 15 minutesCorey Yasmin DO Work Phone: [facility] [place] OBGYNComment on above:Anxiety, generalized (Primary Dx); Second trimester ([facility]); 26 weeks gestation of ([facility]); History of psychogenic nonepileptic seizureStart: 04-03-2025 End: 74-32-7207Dmecsd flowsheetCorey Yasmin DO Work Phone: [facility] [place] OBGYNStart: 04-03-2025 End: 08-64-5516Qddimm flowsheetCorey Yasmin DO Work Phone: [facility] [place] OBGYNStart: 03-20-2025 End: 12-25-4701Ozgito outpatient visit 15 minutesGogo MARTINEZ Work Phone: [facility] [place] OBGYNComment on above:Second trimester ([facility]); 24 weeks gestation of ([facility]); Diabetes mellitus screening; Yeast infection; BV (bacterial vaginosis); Urinary tract infection without hematuria, site unspecifiedStart: 03-20-2025 End: 52-44-6817tdkyhogtcqBWZ Tony AvailableStart: 03-20-2025 End: 76-11-8406Idcoho flowsScooby MARTINEZ Work Phone: [facility] [place] OBGYNStart: 03-20-2025 End: 26-67-6061Qylzcb flowsheetGogo MARTINEZ Work Phone: [facility] [place] [facility]BGYNStart: 02-25-2025 End: 40-68-6098Aaagql outpatient visit 15 minutesCorey Yasmin DO Work Phone: [facility] BCP OBComment on above:Second trimester ([facility]); 20 weeks gestation of ([facility])Start: 02-25-2025 End: 65-95-9852pojfjeeqoyQNEQS FAZIONot AvailableStart: 01-29-2025 End: 69-72-5400Oiffvs flowsScooby MARTINEZ Work Phone: [facility] BCP OBStart: 01-29-2025 End: 97-93-6356Rfrfuk flowsScooby MARTINEZ Work Phone: NOLN BCP OBStart: 01-29-2025 End: 19-57-9294Aupjmzhpn Result EncounterGogo MARTINEZ Work Phone: [facility] External Department UnsolicitedStart: 01-29-2025 End: 47-05-1153Kquzedfg Result EncounterGogo MARTINEZ Work Phone: [facility] External Department UnsolicitedStart: 01-29-2025 End: 13-60-1881Iagiyn outpatient visit 15 minutesGogo MARTINEZ Work Phone: [facility] BCP OBComment on above:Well woman exam with routine gynecological exam; Second trimester ([facility]); 16 weeks gestation of ([facility]); Vaginal discharge; STD exposure; Screening, , for anatomic survey ([facility])Start: 01-29-2025 End: 98-83-0495Dfxofvm encounter procedureAmy Poly MARTINEZ Work Phone: [facility] Work Phone: Start: 01-29-2025 End: 89-94-2767uksqulqrqoOCY RAMEYNot AvailableStart: 01-01-2025 End: 07-13-8651Ljqisf flowsheetCorey Yasmin DO Work Phone: [facility] BCP OBStart: 01-01-2025 End: 59-34-0731Wmrqng flowsheetCorey Yasmin DO Work Phone: [facility] BCP OBStart: 01-01-2025 End: 60-53-8027Cphqcy outpatient visit 15 minutesCorey Yasmin DO Work Phone: [facility] BCP OBComment on above:First trimester ; 12 weeks gestation of ; History of psychogenic nonepileptic seizureStart: 01-01-2025 End: 43-01-1087gccubchupoHSRKP FAZIONot AvailableStart: 59-37-9193akgpbclonv Shivam Lucerocility:[facility]tart: 12-07-2024 End: 61-13-5295Grwtdbhec Result EncounterCorey Yasmin DO Work Phone: noMS External Department UnsolicitedStart: 12-07-2024 End: 06-72-3311Gtfozufpk Result EncounterCorey Yasmin DO Work Phone: [facility] External Department UnsolicitedStart: 12-06-2024 End: 76-14-3448Thzijm outpatient visit 5 minutesNoms Bcp Ob Yasmin NurseNOMS BCP OBComment on above:GA: 0e3jWzpkd: 12-06-2024 End: 42-85-1796aalzdgdhfbKIUPY FAZIONot AvailableStart: 11-08-2024 End: 79-73-0024Lfmrql flowsheetCorey Yasmin DO Work Phone: noMS BCP OBStart: 11-08-2024 End: 38-32-0290Jhudym flowsheetCorey Yasmin DO Work Phone: [facility] BCP OBStart: 11-08-2024 End: 57-08-8688Tsuqtd outpatient visit 15 minutesCorey Yasmin DO Work Phone: [facility] BCP OBComment on above:PCOS (polycystic ovarian syndrome) (Primary Dx)Start: 11-08-2024 End: 48-29-2972yikirsjguoRWBTF FAZIONot AvailableStart: 11-02-2024 End: 51-54-7558Hkmqaebgg Result EncounterCorey Yasmin DO Work Phone: [facility] External Department UnsolicitedStart: 11-02-2024 End: 90-64-3075Uzrxqdogy Result EncounterCorey Yasmin DO Work Phone: [facility] External Department UnsolicitedStart: 10-01-2024 End: 39-72-6481Wnimfyyqm Result EncounterCorey Yasmin DO Work Phone: [facility] External Department UnsolicitedStart: 10-01-2024 End: 12-21-4228Jqcvnokrn Result EncounterCorey Yasmin DO Work Phone: [facility] External Department UnsolicitedStart: 09-25-2024 End: 25-06-0608Ruwpoc outpatient visit 15 minutesCorey Yasmin DO Work Phone: [facility] BCP OBComment on above:PCOS (polycystic ovarian syndrome) (Primary Dx)Start: 09-25-2024 End: 99-11-1558bjycargpexPTQLS FAZIONot AvailableStart: 09-25-2024 End: 67-97-8727Pgtyet flowsheetCorey Yasmin DO Work Phone: [facility] BCP OBStart: 09-25-2024 End: 26-88-9589Wybkud flowsheetCorey Yasmin DO Work Phone: [facility] BCP OBStart: 41-71-4630Rhczrppnm encounterTessa Roberts CMAProMedica Physicians General SurgeryStart: 10-18-2023 End: 64-78-0850tnmjlzjgmmZEUNOHP Airam [facility] Start: 10-18-2023 End: 99-56-3815Ztovwp follow up visit related to original Sonal Patel HYDRO MECHANIC-MAKE UP ARTIST Work Phone: [facility] Physicians General SurgeryComment on above: Status post laparoscopic cholecystectomy (Primary Dx)Start: 10-03-2023 End: 77-91-3384Bzmjcmidrq and management of inpatientAshtabula County Medical Centertart: 10-03-2023 End: 80-96-3998Mnkxegnqfx and management of inpatientSentara Norfolk General Hospitaltart: 09-28-2023 End: 08-18-4214fyhcintvdyERMAIKaweah Delta Medical Centertart: 95-53-8871Fwopyikxi for other preprocedural examinationCity Hospitaltart: 09-28-2023 End: 03-76-7987Xyzlvfn encounter procedureSamaritan [facility] Pre-Ad[facility] Testing [address] [place] [address] - Pre AdmitComment on above:Preop examination (Primary Dx); Asthma, unspecified asthma severity, unspecified whether complicated, unspecified whether persistentStart: 09-28-2023 End: 61-28-4579Iialmhblsmxct examination done[address]tart: 09-27-2023 End: 73-23-3779xxjlpsiuihBUDREOFDLRFEvergreenHealth Ambulatory PPG Start: 09-27-2023 End: 70-53-3612Cqafxg outpatient new 30 minutesAlo Morgan MD Work Phone: [facility] General SurgeryComment on above: Biliary colic (Primary Dx)Start: 09-49-3764Cnzwihsps encounterAlo Morgan MD Work Phone: [facility] General SurgeryStart: 08-30-2023 End: 30-35-2967Eibsgzdshv and management of inpatientCincinnati VA Medical Centertart: 63-75-0276qkirmzvcklFMBTKPKU. S. [facility] Ambulatory PPGStart: 99-51-5878Wwwbglhav encounterLauren Venia CMAProMediny Physicians General SurgeryStart: 11-35-2378klqwjzivfmAQDIGNO [facility] Ambulatory PPGStart: 81-79-1535Njndyqsey encounterMichael Tab Sparrows DO Work Phone: [facility] SurgeryStart: 07-29-2023 ambulatoryDouglas HoyFacility:[facility] CenterkStart: 07-26-2023 End: 87-47-1363xcsuypxcmkQcyhhuv HoyFacility:[facility] CenterkStart: 07-26-2023 End: 08-41-2704Ubleahp encounter procedureMichael R NILL [phone]-CfkphOhio Valley Hospital General Surgery [place] Start: 29-71-7460projymgucgLvabsjh HoyFacility:[facility] CenterkStart: 91-14-7043azmsibnmkoJabpgkm HoyFacility: BellevueStart: 17-80-6486Jvtubelwqt and management of inpatientDR WOLFGANG YASMIN .Facility:H1 Start: 18-65-0893Yypawargbb and management of inpatientDR WOLFGANG YASMIN . Facility:T5Nkbmb: 38-30-6517tthfznnxcqSI WOLFGANG YASMIN .Facility:F4Afacl: 01-01-2023 End: 45-95-6385ihzdccfuraJE WOLFGANG YASMIN .Facility:I3Kuolb: 12-31-2022 End: 09-18-1579gviijwwqnaLP WOLFGANG YASMIN .Facility:C6Eaero: 12-28-2022 End: 68-22-5783ialgghbufxGU WOLFGANG YASMIN .Facility:I5Jtnrx: 12-24-2022 End: 52-88-3991rhseldzlmvQU WOLFGANG YASMIN .Facility:M3Cnkcv: 12-22-2022 End: 24-55-4934rhbtqlozlhWP WOLFGANG YASMIN .Facility:G1Imzsb: 12-20-2022 End: 19-21-0679apyovkxkcpPE WOLFGANG YASMIN .Facility:J0Mnjvr: 12-17-2022 End: 79-65-3934scbfcgcyesVE JAYSON HERNÁNDEZ .Facility:T4Xqscf: 11-04-2022 End: 58-34-7496qnthjpxumqYZESEC DIAB .Facility:U6Xhohb: 10-01-2022 End: 65-13-2641uaoatsztcdGY WOLFGANG YASMIN .Facility:A7Wuuff: 09-28-2022 End: 12-63-4979mapmtwgkhqSU LUISA ARCHIBALDFacility:F5Kbdkx: 08-25-2022 End: 77-99-8878ndacbtuehfUVK POLY .Facility:D9Mroqu: 08-24-2022 End: 48-82-3523mwttsjlzigPU WOLFGANG YASMIN .Facility:I5Tbtse: 06-25-2022 End: 27-76-6852ylkozsnyadPK RASHARD HOY .Facility:B7Atpmg: 06-20-2022 End: 34-20-5620dfflezwmgiKSCULF RADHA .Facility:B6Cszrr: 06-18-2022 End: 30-38-7977yxdfeshlqmUL WOLFGANG YASMIN .Facility:S1Wqixv: 06-02-2022 End: 72-75-9903vveyxmngrsOT GUSTAVO R SMITHFacility:E0Paklb: 05-25-2022 End: 01-07-5495vfubtgmuvwVHRNB PARKERFacility:L0Btwuv: 04-29-2022 End: 28-36-5601psmbsqzswmBK GUSTAVO R SMITHFacility:K9Hubrd: 04-10-2022 End: 38-29-1076znnqxpxecfKWIXX PARKERFacility:B1Tsvbt: 04-07-2022 End: 72-14-3207ukjkibzacnVN GUSTAVO R SMITHFacility:W8Yggda: 04-07-2022 End: 45-04-2097psmybgiiigIFHAT PARKERFacility:H8Djicq: 02-22-2022 End: 52-20-6552wzgvcmfcpzPD RASHARD HOY .Facility:[address] DateProcedureProcedure DetailPerforming ClinicianStart: 67-06-3013Gvyed dip stick/tablet rgnt non-auto w/o micrscpAmy Poly MARTINEZ Work Phone: Start: 98-21-7052LKPJE GP B CULTURE+RFLXAmy Poly MARTINEZ Work Phone: Start: 27-71-9530Brqba dip stick/tablet rgnt non-auto w/o micrscpCorey Yasmin DO Work Phone: Start: 62-59-9438Tpdpn dip stick/tablet rgnt non-auto w/o micrscpKristina Rajinder COMMUNITY SERVICES OFFICER Work Phone: Start: 94-73-5997DXV CBC WITH AUTO DIFFCorey Yasmin DO Work Phone: Start: 41-52-4844Mqmjx dip stick/tablet rgnt non-auto w/o micrscpCorey Yasmin DO Work Phone: Start: 82-02-3475Orncw dip stick/tablet rgnt non-auto w/o micrscpKristina Rajinder COMMUNITY SERVICES OFFICER Work Phone: Start: 33-07-6097Acecq dip stick/tablet rgnt non-auto w/o micrscpKristina Rajinder COMMUNITY SERVICES OFFICER Work Phone: Start: 53-12-3073Gstpk dip stick/tablet rgnt non-auto w/o micrscpCorey Yasmin DO Work Phone: Start: 14-43-8283MLRQUHCVO VAGINITIS (HTRX)Gogo MARTINEZ Work Phone: Start: 18-05-0772PZK,APTIMA HPV,AGE GDLNAmy Poly MARTINEZ Work Phone: Start: 81-43-6798PNX TESTCorey Yasmin DO Work Phone: Start: 01-68-8522Nefsk dip stick/tablet rgnt non-auto w/o micrscpCorey Yasmin DO Work Phone: Start: 97-24-8236CVP PREG QUANT HCGCorey Yasmin DO Work Phone: Start: 56-44-7544TUU CBC WITH AUTO DIFFCorey Yasmin ZHOU Work Phone: appendectomyMichael NILL History of cholecystectomyStatus post laparoscopic cholecystectomyJedanyelle Patel HYDRO MECHANIC-MAKE UP ARTIST Work Phone: Plan of Treatment DateCare ActivityDetailAuthorStart: 39-50-9054VIeD,Tdap and Td Vaccines (7 - Td or Tdap)DTaP,Tdap and Td Vaccines (7 - Td or Tdap)[facility] SystemStart: 07-17-2025 End: 25-97-3737krxxdfyguy54/10/2025 3:40 PM EST Visit PIYUSH COSTA [address] [place], [id number] Wolfgang Hoffman, DO [address] [place] [address] [facility] OBGYNStart: 06-19-2025 End: 66-34-5061Qnhroms encounter bevvlddax65/12/2025 3:30 PM EST Routine NOMLisa COSTA [address] [place], [id number] Wolfgang Hoffman, DO [address] [place] [address] [facility] OBGYNStart: 06-10-2025 End: 42-77-3309Ivqjbzz encounter xxazlxquu06/03/2025 3:50 PM EST Routine NOMLisa COSTA [address] [place], [id number] Gogo Pang, MICHELLE [address] [place] [address] [facility] [place] OBGYNStart: 06-10-2025 End: 73-44-6586OTBOEVQ, GROUP B STREP WITH SUSCEPTIBLITYCULTURE, GROUP B STREP WITH SUSCEPTIBLITY Lab Routine Third trimester ([facility]) Expected: 06/10/2025, Expires: 06/10/2026[facility] Work Phone: comment on above:Expected: 06/10/2025, Expires: 06/10/2026Start: 05-27-2025 End: 38-58-1132Tgoajvq encounter procedureNOMS Toño OBGYNComment on above: ArrivedStart: 05-27-2025 End: 11-30-8540FA for pregnancyUS OB follow up transabdominal approach Imaging Routine size inconsistent with dates ([facility]) Expected: 05/27/2025, Expires: 09/27/2025NOTN Healthcare Work Phone: comment on above:Expected: 05/27/2025, Expires: 09/27/2025Start: 05-15-2025 End: 23-83-1030Rurbjjl encounter krxwvrjub05/08/2025 3:40 PM EDT Routine [facility] [address] [place], [id number] Elvia Calvillo, COMMUNITY SERVICES OFFICER [address] [place] [address] [facility] OBGYNStart: 04-29-2025 End: 23-36-1958Pepxuhl encounter yajzzhtzs69/22/2025 3:20 PM EDT Routine [facility] [address] [id number] Wolfgang Hoffman DO [address] [place] [address] ArrivedNOMS Toño OBGYNComment on above:ArrivedStart: 04-29-2025 End: 06-22-7299JZR W Auto Differential panel - BloodCBC and differential Lab Routine Diabetes mellitus screening Expected: 04/29/2025 (Approximate), Expires: 04/29/2026[facility] Work Phone: comment on above:Expected: 04/29/2025 (Approximate), Expires: 04/29/2026Start: 04-17-2025 End: 60-48-5178Jtnqzif encounter ftaychmuj66/10/2025 3:40 PM EDT Routine [facility] [facility] [address] [place], [id number] Wolfgang Hoffman, [address] [place] [address] [facility] [place] OBGYNStart: 26-51-8251DDHGD- 19 Vaccine ( season)COVID-19 Vaccine ( season)[facility] HealthcareStart: 79-65-3733Rzkwgsaim vaccinationInfluenza Vaccine (#1)[facility] HealthcareStart: 04-03-2025 End: 31-28-9297Fnfyhph encounter rclxptmxu07/27/2025 3:40 PM EDT Routine [facility] [place] [facility] [address] [place], [id number] Wolfgang Hoffman, [address] [place] [address] [facility] [place] OBGYNStart: 03-20-2025 End: 55-48-1936Jyuocez encounter lmyufdott27/13/2025 3:40 PM EDT Routine [facility] [address] [place], [id number] Gogo Pang PA [address] [place] [address] ArrivedNOMS Amboy OBGYNComment on above:ArrivedStart: 03-20-2025 End: 19-11-3111ZSJ panel - Blood by Automated countCBC Lab Routine Diabetes mellitus screening Expected: 03/20/2025 (Approximate), Expires: 03/20/2026[facility] Work Phone: comment on above:Expected: 03/20/2025 (Approximate), Expires: 03/20/2026Start: 03-20-2025 End: 30-15-6826Pscxxoewmcz of glucose 1 hour after glucose challenge for glucose tolerance testGlucose tolerance, 1 hour Lab Routine Diabetes mellitus screening Expected: 03/20/2025 (Approximate), Expires: 03/20/2026NOMS HealthcareComment on above:Expected: 03/20/2025 (Approximate), Expires: 03/20/2026Start: 02-25-2025 End: 90-34-3644Usmroaj encounter /21/2025 3:40 PM EDT Routine [facility] [address] [place] [address] Wolfgang Hoffman, [address] [place] [address] [facility] BCP OBStart: 02-25-2025 End: 90-10-4175Pdroloikxcra / ancillary services yjydgahedl33/21/2025 2:30 PM EDT Ancillary Procedure [facility] [address] [place] [address] [place] [address] [facility] OBStart: 01-29-2025 End: 26-75-8653Lwukw fetoprotein, maternalAlpha fetoprotein, maternal Lab Routine Second trimester ([facility]) 16 weeks gestation of ([facility]) Expected: 01/29/2025 (Approximate), Expires: 07/31/2025NOTN Healthcare Comment on above:Expected: 01/29/2025 (Approximate), Expires: 07/31/2025Start: 01-29-2025 End: 76-26-5827WZ for pregnancyUS OB 14+ weeks anatomy scan Imaging Routine Second trimester ([facility]) 16 weeks gestation of ([facility]) Screening, , for anatomic survey ([facility]) Expected: 01/29/2025, Expires: 05/01/2025NOMS HealthcareComment on above:Expected: 01/29/2025, Expires: 05/01/2025Start: 01-29-2025 End: 98-28-4928Pzxzzac encounter procedureNOTN BCP OBComment on above:Arrived Start: 01-08-2025 End: 24-05-9172Slvvjyj encounter lhtwcvopd05/03/2025 2:10 PM EDT Routine [facility] [address] [place] [address] Wolfgang Hoffman, DO [address] [place] [address] [place] [address] [facility] BCP OBStart: 01-01-2025 End: 17-45-0509Zvxegjd encounter pjulbwvli02/27/2025 1:40 PM EDT Routine [facility] [address] [facility] [place] [address] Wolfgang Hoffman, DO [address] [place] [address] [place] [address] ArrivedNOTN BCP OBComment on above: ArrivedStart: 12-06-2024 End: 37-47-3881NHJ/RhABO/Rh Lab Routine Missed menses , unspecified gestational age Expected: 12/06/2024 (Approximate), Expires: 12/06/2025NOMS HealthcareComment on above:Expected: 12/06/2024 (Approximate), Expires: 12/06/2025Start: 12-06-2024 End: 61-12-8390Qhydu type and Indirect antibody screen panel - BloodType and screen Lab Routine Missed menses , unspecified gestational age Expected: 12/06/2024 (Approximate), Expires: 12/06/2025NOMS HealthcareComment on above:Expected: 12/06/2024 (Approximate), Expires: 12/06/2025Start: 12-06-2024 End: 54-17-8141Egsij of abuse panel - Urine by Screen methodRapid drug screen, urine Lab Routine , unspecified gestational age Encounter for supervision of normal first in first trimester Expected: 12/06/2024 (Approximate), Expires: 12/06/2025NOMS HealthcareComment on above:Expected: 12/06/2024 (Approximate), Expires: 12/06/2025Start: 12-06-2024 End: 43-50-0656wiwtgjsgkj45/01/2025 1:00 PM EDT Initial [facility] [address] [place] [phone] [facility] BCP OBStart: 12-06-2024 End: 62-16-8467Wrxgyzfnbsez / ancillary services /01/2025 12:30 PM EDT Ancillary Procedure [facility] [address] [place], [place] [phone] [facility] OBStart: 11-30-2024 End: 22-72-2326HV Pelvis transvaginalUS OB transvaginal Imaging Routine Missed menses Expected: 11/30/2024, Expires: 03/01/2025[facility] Work Phone: comment on above:Expected: 11/30/2024, Expires: 03/01/2025Start: 11-12-2024 End: 87-44-9805Fyvmxaj encounter doytimbdw80/07/2025 2:00 PM EDT Office Visit [facility] [address] [place] [phone] Wolfgang Hoffman, DO [address] [place] [address] [facility] OBStart: 11-08-2024 End: 21-67-6516Wsyvjae encounter pgqcyizir04/03/2025 11:30 AM EDT Office Visit [facility] [address] [place] [phone] Wolfgang Hoffman, DO [address] [place] [address] ArrivedNOSANTA TER[facility] OBComment on above:ArrivedStart: 83-39-3658Nbotf BMI ScreeningAdult BMI ScreeningProNationwide Children'S Hospitalca Health SystemStart: 17-79-7089Szhnrza ScreeningTobacco ScreeningUniversity Hospitals Cleveland Medical Centerca Health SystemStart: 98-56-8216Cosgh BMI ScreeningAdult BMI ScreeningProNationwide Children'S Hospitalca Health SystemStart: 89-16-1055Ftfwrzj ScreeningTobacco ScreeningUniversity Hospitals [facility] Medical Centerca Health SystemStart: 56-94-7506Kfdyd BMI ScreeningAdult BMI ScreeningProNationwide Children'S Hospitalca Health SystemStart: 59-10-3339Gspmnkn ScreeningTobacco ScreeningUniversity Hospitals Cleveland Medical Centerca Health SystemStart: 36-35-3530Mlhrjfi ScreeningTobacco ScreeningProNationwide Children'S Hospitalca Health SystemStart: 09-25-2024 End: 46-11-9394Lymyrbq encounter kgsfyrdhv17/18/2025 3:00 PM EST Office Visit [facility] [address] [facility] [place] [id number] Wolfgang Hoffman, DO [address] [place], [place] [id number] ArrivedNOMS BCP OBComment on above:ArrivedStart: 09-25-2024 End: 95-29-6819SSFMOPXO Lab Routine PCOS (polycystic ovarian syndrome) Expected: 09/25/2024 (Approximate), Expires: 09/25/2025NOMS HealthcareComment on above: Expected: 09/25/2024 (Approximate), Expires: 09/25/2025Start: 09-25-2024 End: 77-38-5207CV PelvisUS Pelvis w/ TV Imaging Routine PCOS (polycystic ovarian syndrome) Expected: 09/25/2024, Expires: 09/25/2025NOMS HealthcareComment on above:Expected: 09/25/2024, Expires: 09/25/2025Start: 10-18-2023 End: 71-30-8339Myegmki encounter koagwigkt32/12/2024 10:00 AM EDT Office Visit [facility] [address] [place] [phone] Viki Patel, HYDRO MECHANIC-MAKE UP ARTIST [address] [place] [address] [facility] SurgeryStart: 10-03-2023 End: 17-59-4950Anpwgtdwg to same day surgery jiaxvq6710/03/2023 11:00 AM EST - 10/03/2023 12:55 PM EST Surgery [facility] [address] [place] [address] Alo Morgan MD [address] [facility] [place] [address] DAVINCI CHOLECYSTECTOMY [97985 (CPT )][facility] Surgery Comment on above:DAVINCI CHOLECYSTECTOMY [03530 (CPT )]Start: 10-03-2023 End: 51-14-2432Hqfcjtldzdl surg cholecystectomyDAVINCI CHOLECYSTECTOMY biliary colic 10/03/2023 11:00 AM ESTFREMSAINT LOUIS UNIVERS[facility] SURGERYStart: 83-39-4500Ozoiroibze hospital visit by ceixagpad98/26/2024 11:00 AM EST Hospital Encounter [facility] [address] [place] [address] Alo Morgan MD [address] [place] [phone] [facility] SurgeryStart: 09-27-2023 End: 35-23-6844Fagtqmm encounter boqnpxhac37/20/2024 11:00 AM EST Office Visit [facility] [address] [place] [address] Alo Morgan MD [address] [place] [address] [facility] SurgeryStart: 08-23-2023 End: 65-38-1219Yyofowy encounter npmaelckd12/16/2024 10:45 AM EST Office Visit [facility] [address] [place] [address] Alo Morgan MD [address] [place] [address] [facility] SurgeryStart: 52-17-5382Jyjzculog vaccinationInfluenza VaccineECU Health Bertie Hospitaltart: 22-08-1554Texwwjvetyzq Vaccine: Pediatrics (0 to 5 Years) and At-Risk Patients (6 to 64 Years) (1 of 2 - PCV)Pneumococcal Vaccine: Pediatrics (0 to 5 Years) and At-Risk Patients (6 to 64 Years) (1 of 2 - PCV)[facility] HealthcareStart: 91-49-9398Jehhp BMI ScreeningAdult BMI ScreeningProClinton Memorial Hospital SystemStart: 99-86-8531Lmfjjykhak ScreeningDepression ScreeningJoint Township District Memorial Hospital SystemStart: 42-87-0529Mzpatfh ScreeningTobacco ScreeningECU Health Bertie Hospitaltart: 15-58-1221Oachixb CounselingTobacco CounselingSelect Medical OhioHealth Rehabilitation Hospital - DublinBacteria identified in Urine by CultureUrine culture Microbiology Routine Missed menses Ordered: 12/06/2024[facility] HealthcareComment on above:Ordered: 12/06/2024acteria identified in Urine by CultureUrine culture Microbiology Routine Urinary tract infection without hematuria, site unspecified Ordered: 03/20/2025[facility] Comment on above:Ordered: 5CBC W Auto Differential panel - BloodCBC and differential Lab Routine PCOS (polycystic ovarian syndrome) Ordered: 09/25/2024 [facility] HealthcareComment on above:Ordered: 5CBC W Auto Differential panel - BloodCBC and differential Lab Routine Missed menses , unspecified gestational age Ordered: 12/06/2024[facility] HealthcareComment on above:Ordered: 12/06/2024HLAMYDIA TRACHOMATIS (GENITO/STI)CHLAMYDIA TRACHOMATIS (GENITO/STI) Lab Routine STD exposure Ordered: 01/29/2025[facility] HealthcareComment on above: Ordered: 01/29/2025HLAMYDIA TRACHOMATIS (GENITO/STI)CHLAMYDIA TRACHOMATIS (GENITO/STI) Lab Routine Yeast infection BV (bacterial vaginosis) Ordered: [facility] HealthcareComment on above:Ordered: 03/20/2025ytology Cervical or vaginal smear or scraping studyPap Smear Pathology and Cytology Routine Well woman exam with routine gynecological exam Ordered: 01/29/2025[facility] Work Phone: comment on above:Ordered: 01/29/2025DHEA-sulfateDHEA- sulfate Lab Routine PCOS (polycystic ovarian syndrome) Ordered: 09/25/2024NOTN HealthcareComment on above:Ordered: 09/25/2024Follicle stimulating hormone Follicle stimulating hormone Lab Routine PCOS (polycystic ovarian syndrome) Ordered: 09/25/2024[facility] HealthcareComment on above:Ordered: 09/25/2024hCG, quantitative, pregnancyhCG, quantitative, Lab Routine PCOS (polycystic ovarian syndrome) Ordered: 09/25/2024[facility] Work Phone: comment on above:Ordered: 09/25/2024Hemoglobin A1c/Hemoglobin.total in BloodHemoglobin A1c Lab Routine PCOS (polycystic ovarian syndrome) Ordered: 09/25/2024[facility] HealthcareComment on above:Ordered: 09/25/2024 Hemoglobin A1c/Hemoglobin.total in BloodHemoglobin A1c Lab Routine Missed menses , unspecified gestational age Ordered: 12/06/2024[facility] HealthcareComment on above:Ordered: 12/06/2024Hemoglobin A1c/Hemoglobin.total in BloodHemoglobin A1c Lab Routine Third trimester ([facility]) 28 weeks gestation of ([facility]) Ordered: 04/17/2025[facility] Work Phone: comment on above:Ordered: 04/17/2025Hepatitis B virus surface Ag [Presence] in Serum or Plasma by ImmunoassayHepatitis B surface antigen Lab Routine Missed menses , unspecified gestational age Ordered : 12/06/2024[facility] HealthcareComment on above:Ordered: 12/06/2024Hepatitis C virus Ab [Presence] in Serum or Plasma by ImmunoassayHepatitis C antibody Lab Routine Missed menses , unspecified gestational age Ordered: 12/06/2024[facility] HealthcareComment on above:Ordered: 12/06/2024HIV-1/HIV-2 antigen/antibody combination immunoassayHIV-1 and HIV-2 antibodies Lab Routine Missed menses , unspecified gestational age Ordered: 12/06/2024[facility] HealthcareComment on above:Ordered: 12/06/2024Luteinizing hormoneLuteinizing hormone Lab Routine PCOS (polycystic ovarian syndrome) Ordered: 09/25/2024[facility] HealthcareComment on above:Ordered: 09/25/2024Neisseria gonorrhoeae DNA [Presence] in Unspecified specimen by ISAAC with probe detectionNeisseria gonorrhea DNA probe, direct Lab Routine STD exposure Ordered: 01/29/2025[facility] HealthcareComment on above:Ordered: 01/29/2025Neisseria gonorrhoeae DNA [Presence] in Unspecified specimen by ISAAC with probe detectionNeisseria gonorrhea DNA probe, direct Lab Routine Yeast infection BV (bacterial vaginosis) Ordered:03/20/2025[facility] HealthcareComment on above:Ordered: 03/20/2025Reagin Ab [Presence] in Serum by RPRRPR Lab Routine Missed menses , unspecified gestational age Ordered: 12/06/2024[facility] HealthcareComment on above:Ordered: 12/06/2024Rubella antibody, IgGRubella antibody, IgG Lab Routine Missed menses , unspecified gestational age Ordered: 12/06/2024[facility] HealthcareComment on above:Ordered: 12/06/2024 SURESWAB(R) ADVANCED VAGINITIS PLUS, TMASURESWAB(R) ADVANCED VAGINITIS PLUS, TMA Pathology and Cytology Routine Vaginal discharge Ordered: 01/29/2025[facility] HealthcareComment on above:Ordered: 01/29/2025SURESWAB(R) ADVANCED VAGINITIS PLUS, TMASURESWAB(R) ADVANCED VAGINITIS PLUS, TMA Pathology and Cytology Routine Yeast infection BV (bacterial vaginosis) Ordered: 03/20/2025[facility] Comment on above:Ordered: 03/20/2025Thyrotropin [Units/volume] in Serum or PlasmaTSH Lab Routine PCOS (polycystic ovarian syndrome) Ordered: 09/25/2024[facility] Work Phone: comment on above:Ordered: 09/25/2024Thyroxine (T4) free [Mass/volume] in Serum or PlasmaT4, free Lab Routine PCOS (polycystic ovarian syndrome) Ordered: 09/25/2024[facility] CenterComment on above:Ordered: 09/25/2024 End: 14-91-0427Hsbtwodn Procedure / SurgeryUnlisted Procedure / Surgery Procedures Routine Biliary colic 1 Occurrences starting 09/27/2023 until 09/26/2024[facility] Work Phone: Comment on above:1 Occurrences starting 09/27/2023 until 09/26/2024US Pelvis transvaginalUS OB transvaginal Imaging Routine Missed menses 12/06/2024 12:56 PM EDTKansas City VA Medical Center Immunizations Immunization DateImmunizationNotesCare YdiyeflpReteyjva52-13-3935iyeacnuiz virus vaccine, unspecified formulationLauren Venia [facility] 94-62-0220mplntlrjj virus vaccine, unspecified formulationMichael Grillis DO Work Phone: [facility] Payers DatePayer CategoryPayerPolicy [id number] Health InsuranceAMBETTER SEATT[place] Member Subscriber Plan / Payer (Effective 2024- Present) Name: Alfredo Piper Relation to Subscriber: Self Name: Kemi Piper Payer ID: Not on file Group ID: Not on file Type: Not on file Address: [address] [id number] 2023Medicaid (Managed Care)[employer] [id number] 2019[place]icaid[place] MED[place] [id number] 2018-Present [phone] [address] [place] [id number] [id number] 2.16840.1.263133.3.57[id number] 2.16840.1.459217.3.57[id number] 2.840.1.445220.3.57[id number] 2.16840.1.841498.3.579.2.75198-09-4551Trvlfvt9160190 2.16.840.1.118073.3.579.2.70076-44-1102Epmzxcn7318306 2.16840.1.813535.3.579.2.50868-62-6969Hyvnkbp7660128 2.16840.1.546894.3.579.2.27656-06-9731Frnczlm2098784 2.16.840.1.465155.3.579.2.72385-29-9410Mjgtxru6426378 2.16840.1.039902.3.579.2.18549-35-8338Ekqrczy8374193 2.16.840.1.200578.3.579.2.00073-51-9473Rmjlshl9959445 2.16840.1.784936.3.579.2.07247-50-7577Gvlardj1613059 2.16.840.1.767208.3.579.2.38242-29-2479Guqfcpz1781293 2.16.840.1.723689.3.579.2.39335-22-8960Tqhidnj1905737 2.16.840.1.054815.3.579.2.52392-37-4322Gdjuteh9921433 2.16.840.1.997007.3.579.2.33800-16-9554Xdaklxi3330524 2.16.840.1.919694.3.579.2.15876-22-6714Qlinvyv0721957 2..840.1.854768.3.579.2.31346-88-4043Tqhqxdj8364342 2.840.1.749200.3.579.2.53826-56-2274Trfzplm4599098 2.16.840.1.033969.3.579.2.81213-38-1690Yixvduu4067332 2.16.840.1.953487.3.579.2.96838-37-8781Qalmaop1505653 2.840.1.447126.3.579.2.10063-25-0283Hzfqxje0934444 2.16.840.1.857729.3.579.2.96666-70-1756Gewenvw4488691 2.16.840.1.834717.3.579.2.17163-30-1401Tbfahjw0345332 2.16.840.1.245150.3.579.2.08702-28-1776Jeirqlr6598797 2.16840.1.703941.3.579.2.39381-64-6087Vtojhhz1463261 2.16.840.1.969939.3.579.2.36243-22-8081Vawvfqa6125668 2.16.840.1.945708.3.579.2.57131-88-5697Yzuonjl33666882 2.16.840.1.187859.3.579.2.41275-31-1763Yzwstye74198615 2.16.840.1.578606.3.579.2.75167-74-9700Xccliuv23700849 2.16.840.1.123192.3.579.2.975886-20-7168Iixktql99415074 2..840.1.953668.3.579.2.222406-01-7001Aicoixk36488017 2.840.1.676761.3.579.2.397492-38-2786Rmpyzmt18057874 2.840.1.982352.3.579.2.282187-26-2302Dgvuuie75306745 2..840.1.118277.3.579.2.804183-14-6786Ukbdlvz84219439 2..840.1.917186.3.579.2.371424-70-9953Kboprdj85246445 2.840.1.887403.3.579.2.820067-07-1217Yrgfbgp32570658 2..840.1.706591.3.579.2.619359-49-7931Undlint06708127 2..840.1.211074.3.579.2.273739-44-1464Maubxov7263694 2.16.840.1.688111.3.579.2.010258-44-1338Jpisgrx4942814 2.16.840.1.830527.3.579.2.393963-39-2256Jjlxzaf2741812 2.840.1.460155.3.579.2.286767-13-6329Efsrxqa7179078 2.840.1.770006.3.579.2.467000-48-6516Zxcxrjh93726850 2.84.1.919017.3.579.2.105849-28-0975Urbxtyv85283054 2.840.1.089750.3.579.2.683173-79-3267Ehousfc49074879 2..1.922384.3.579.2.218827-05-1092Truprxt46581284 2..1.626411.3.579.2.551071-06-6367Xgwivhb65149755 2..1.856332.3.579.2.916840-51-8690Gknstgh22648291 2..1.824612.3.579.2.198495-00-6749Timtzii42826018 2..1.910532.3.579.2.635996-87-3943Sgeckct92293915 2..1.564661.3.579.2.733416-58-7392Rgefigj08968366 2.840.1.838298.3.579.2.345308-37-6182Cbdxoml20887374 2.0.1.154358.3.579.2.617053-96-7273Agvhxgd4791759 2.840.1.938412.3.579.2.250030-08-9091Ebmfpml7006643 2..1.765264.3.579.2.191813-87-9831Xhuzjib0983086 2.16.840.1.697769.3.579.2.068280-89-5659Tlhklsx7378450 2.840.1.841094.3.579.2.033373-62-1250Jtxijit1330329 2.16840.1.278952.3.579.2.286731-93-2923Qvnwbmh71348065 2.840.1.239754.3.579.2.65260-32-4859Bcnvgnx80611061815826-68-8295Xdsdccj 508445188 2.0.1.375122.3.579.2.630Vapuxvi42540329 2.0.1.541539.3.579.2.531 Social History DateTypeDetailFacilityTobacco smoking statusOhio Valley Hospital [facility] [place] Start: 04-03-2021 End: 78-57-1591Nbg Assigned At BirthFeUniversity Hospitals TriPoint Medical Centertart: 04-03-2021 End: 92-55-1574Vqeqxlf smoking status NHISOccasional tobacco smokerJoint Township District Memorial Hospital SystemStart: 04-03-2021 End: 41-80-9600Yfjgezw use and exposureSmokeless tobacco non-userProLamar Regional Hospital Health SystemStart: 04-03-2021 End: 86-50-9447Nkdafwr intakeLifetime non-drinker (finding)[facility] SystemStart: 04-03-2021 End: 63-43-2538Jzawums of Social functionProMediny Health SystemStart: 78-51-9988Peiohue InstabilityUnknownPLakeview Regional Medical Center Health SystemStart: 41-33-7186Vuy Assigned At BirthNot on fileProMediCleveland Clinic Fairview Hospital SystemStart: 62-80-3784Jmnlbju CommentWill smoke a cigarette if does not have a vapeProMedica Health System History of tobacco useCigarette SmokerProMediny Health SystemTobacco smoking status NHISTobacco smoking consumption unknownNOMS HealthcareStart: 10-17-2024 PregnancyNOTN HealthcareSexFemale (finding)[facility] Start: 63-95-7051Ndb Assigned At [facility] Functional Status IiugCqzttrezyjXnqzonShjghyqz20-24-1032Sbkxlui Health Questionnaire 2 item (PHQ- 2) [Reported][facility] Clinical Notes 11-28-2020 to 06-10-2025 Note Date & NwpzJcfwVsilijvh24-74-3974 History of Present illness Narrative* MICHELLE Forrest [...] Ambulatory Problems Diagnosis Date Noted Third trimester ([facility]) 12/27/2022 ADHD (attention deficit hyperactivity disorder) [...] nursing note reviewed. Exam conducted with a cook ship present. Vitals: Estimated body mass index is 26.63 kg/m as calculated from the following: Height as of 12/21/22: 5' 6 . Weight as of this encounter: 165 lb. BP: 128/80 No LMP recorded. Patient is . Assessment/Plan ICD-10-CM 1. Third trimester ([facility]) Z34.93 POCT urinalysis dipstick manually resulted CULTURE, GROUP B STREP WITH SUSCEPTIBLITY CULTURE, GROUP B STREP WITH SUSCEPTIBLITY 2. 35 weeks gestation of ([facility]) Z3A.35 3. Psychogenic nonepileptic seizure F44.5 [...] behalf of: MICHELLE Forrest documented in this encounterKansas City VA Medical CenterJblaujbufc88-44-2372 History of Present illness Narrative* Elvia Calvillo [...] Ambulatory Problems Diagnosis Date Noted Third trimester ([facility]) 12/27/2022 ADHD (attention deficit hyperactivity disorder) [...] nursing note reviewed. Exam conducted with a cook ship present. Vitals: Estimated body mass index is 25.89 kg/m as calculated from the following: Height as of 12/21/22: 5' 6 . Weight as of this encounter: 160 lb 6.4 oz. BP: 130/80 No LMP recorded. Patient is . Assessment/Plan ICD-10-CM 1. 33 weeks gestation of ([facility]) Z3A.33 POCT urinalysis dipstick manually resulted 2. Third trimester ([facility]) Z34.93 POCT urinalysis dipstick manually resulted [...] Laterality Date APPENDECTOMY GALLBLADDER documented in this encounterKansas City VA Medical CenterEivxkwhkgf73-64-7426 History of Present illness Narrative* Elvia Calvillo [...] Ambulatory Problems Diagnosis Date Noted Third trimester ([facility]) 12/27/2022 ADHD (attention deficit hyperactivity disorder) [...] nursing note reviewed. Exam conducted with a cook ship present. Vitals: Estimated body mass index is 24.99 kg/m as calculated from the following: Height as of 12/21/22: 5' 6 . Weight as of this encounter: 154 lb 12.8 oz. BP: 110/80 No LMP recorded. Patient is . ASSESSMENT & PLAN ICD-10-CM 1. 31 weeks gestation of ([facility]) Z3A.31 POCT urinalysis dipstick manually resulted 2. Third trimester ([facility]) Z34.93 Return OB: Patient presents today [...] of: Elvia Calvillo NP documented in this encounterKansas City VA Medical CenterAafvgvfmtb16-24-6425 History of Present illness Narrative* Elvia Calvillo [...] Ambulatory Problems Diagnosis Date Noted Third trimester ([facility]) 12/27/2022 ADHD (attention deficit hyperactivity disorder) [...] nursing note reviewed. Exam conducted with a cook ship present. Vitals: Estimated body mass index is [...] of: Wolfgang Hoffman DO documented in this encounterKansas City VA Medical CenterSoxcdejvac79-47-9862 History of Present illness Narrative* Elvia Calvillo [...] Ambulatory Problems Diagnosis Date Noted Third trimester ([facility]) 12/27/2022 ADHD (attention deficit hyperactivity disorder) [...] nursing note reviewed. Exam conducted with a cook ship present. Vitals: Estimated body mass index is 24.45 kg/m as calculated from the following: Height as of 12/21/22: 5' 6 . Weight as of this encounter: 151 lb 8 oz. BP: 120/70 No LMP recorded. Patient is . ASSESSMENT & PLAN ICD-10-CM 1. Third trimester ([facility]) Z34.93 POCT urinalysis dipstick manually resulted Hemoglobin A1c 2. 28 weeks gestation of ([facility]) Z3A.28 Hemoglobin A1c Return OB: Patient [...] of: Elvia Calvillo NP documented in this encounterKansas City VA Medical CenterEqwhuyahrw21-36-5479 History of Present illness Narrative* Elvia Calvillo [...] Ambulatory Problems Diagnosis Date Noted Third trimester ([facility]) 12/27/2022 ADHD (attention deficit hyperactivity disorder) [...] nursing note reviewed. Exam conducted with a cook ship present. Vitals: Estimated body mass index is 23.53 kg/m as calculated from the following: Height as of 12/21/22: 5' 6 . Weight as of this encounter: 145 lb 12.8 oz. BP: 100/60 No LMP recorded. Patient is . ASSESSMENT & PLAN ICD-10-CM 1. Second trimester ([facility]) Z34.92 2. 26 weeks gestation of ([facility]) Z3A.26 3. History of psychogenic nonepileptic [...] of: Wolfgang Hoffman DO documented in this encounterKansas City VA Medical CenterKjjeczcbui03-63-3148 History of Present illness Narrative* MICHELLE Forrest - 03/20/2025 3:40 PM EDT 14 Reason for Appointment: Patient ID: Kemi Piper is a 19 y.o. female who presents for Routine Visit Patient presents today for Return OB appointment. MEDICATIONS Current Outpatient Medications Medication Instructions 28-0.8 MG tablet 1 tablet, Daily ALLERGIES No Known Allergies PROBLEMS Active Ambulatory Problems Diagnosis Date Noted Third trimester ([facility]) 12/27/2022 ADHD (attention deficit hyperactivity disorder) [...] nursing note reviewed. Exam conducted with a cook ship present. Vitals: Estimated body mass index is 23.69 kg/m as calculated from the following: Height as of 12/21/22: 5' 6 . Weight as of 02/25/25: 146 lb 12.8 oz. BP: No LMP recorded. Patient is . ASSESSMENT & PLAN ICD-10-CM 1. Second trimester ([facility]) Z34.92 POCT urinalysis dipstick manually resulted 2. 24 weeks gestation of ([facility]) Z3A.24 3. Diabetes mellitus screening Z13.1 [...] of: Elvia Calvillo NP documented in this encounterKansas City VA Medical CenterDubyxiosga87-28-5659 History of Present illness Narrative* MICHELLE Forrest - 02/25/2025 3:40 PM EDT Reason for Appointment: Patient ID: Kemi Piper is a 19 y.o. female who presents for Routine Visit Patient presents today for Return OB appointment. MEDICATIONS Current Outpatient Medications Medication Instructions 28-0.8 MG tablet 1 tablet, Daily ALLERGIES No Known Allergies PROBLEMS Active Ambulatory Problems Diagnosis Date Noted Third trimester ([facility]) 12/27/2022 ADHD (attention deficit hyperactivity disorder) [...] ASSESSMENT & PLAN ICD-10-CM 1. Second trimester ([facility]) Z34.92 POCT urinalysis dipstick manually resulted 2. 20 weeks gestation of ([facility]) Z3A.20 POCT urinalysis dipstick manually resulted [...] of: Wolfgang Hoffman DO documented in this encounterKansas City VA Medical CenterZgrxugqcmd02-53-3795 History of Present illness Narrative* MICHELLE Forrest [...] Ambulatory Problems Diagnosis Date Noted Third trimester ([facility]) 12/27/2022 ADHD (attention deficit hyperactivity disorder) [...] nursing note reviewed. Exam conducted with a cook ship present. Vitals: Estimated body mass index is 21.95 kg/m as calculated from the following: Height as of 12/21/22: 5' 6 . Weight as of 01/01/25: 136 lb. BP: No LMP recorded. Patient is . ASSESSMENT & PLAN ICD-10-CM 1. Well woman exam with routine gynecological exam Z01.419 Pap Smear 2. Second trimester ([facility]) Z34.92 Alpha fetoprotein, maternal Alpha fetoprotein, maternal US OB 14+ weeks anatomy scan 3. 16 weeks gestation of ([facility]) Z3A.16 Alpha fetoprotein, maternal Alpha fetoprotein, maternal US OB 14+ weeks anatomy scan 4. Vaginal discharge N89.8 SURESWAB(R) ADVANCED VAGINITIS PLUS, TMA 5. STD exposure Z20.2 CHLAMYDIA TRACHOMATIS (GENITO/STI) Neisseria gonorrhea DNA probe, direct 6. Screening, , for anatomic survey ([facility]) Z36.89 US OB 14+ weeks anatomy scan Return OB/Annual Exam: Patient presents today for a annual exam/routine obstetrics appointment. Patient is currently 29j9fmdaghrsa. Patient states she is doing well but [...] behalf of: MICHELLE Forrest documented in this encounterKansas City VA Medical CenterAhyponxmcv69-49-9051 History of Present illness Narrative* Porsha Jackie, TALLOW MAKER - 01/01/2025 1:40 PM EDT Reason for Appointment: Patient ID: Kemi Piper is a 19 y.o. female who presents for Routine Visit Patient presents today for Return OB appointment. MEDICATIONS Current Outpatient Medications Medication Instructions 28-0.8 MG tablet 1 tablet, Daily ALLERGIES No Known Allergies PROBLEMS Active Ambulatory Problems Diagnosis Date Noted Third trimester 12/27/2022 ADHD (attention deficit hyperactivity disorder) ([facility]) 01/11/2012 Deterioration in school performance 01/21/2015 Migraines ([facility]) 11/28/2020 Nocturnal enuresis 12/12/2012 Psychogenic nonepileptic [...] nursing note reviewed. Exam conducted with a cook ship present. Vitals: Estimated body mass index is [...] or undercooked meat, and stay away from [facility]. Patient has been consulted regarding any [...] of: Wolfgang Hoffman DO documented in this encounterKansas City VA Medical CenterSwtqqkbhkk24-29-6577 History of Present illness Narrative* Pat Skelton [...] hyperactivity disorder) ([facility]) 01/11/2012 Deterioration in school performance 01/21/2015 Migraines ([facility]) 11/28/2020 Nocturnal enuresis 12/12/2012 Psychogenic nonepileptic [...] or undercooked meat, and stay away from [facility]. Patient has also been advised to not change litter boxes and eat 6 small meals a day. Patient has been consulted regarding the do's and don'ts ofpregnancy. Patient was given labs and all questions and concerns were answered. Patient was given [place] to have completed with Initial labs. Follow Up: Patient is to return in 4 weeks for routine OB appointment. Follow Up: Patient is to have labs drawn at directed and return to office for initial OB appointment with provider. Patient may call office as needed with any concerns or questions. Nurse Visit Completed by: Pat Skelton LPN documented in this encounterKansas City VA Medical [id number] History of Present illness Narrative* Monique Arora [...] hyperactivity disorder) ([facility]) 01/11/2012 Deterioration in school performance 01/21/2015 Migraines ([facility]) 11/28/2020 Nocturnal enuresis 12/12/2012 Psychogenic nonepileptic [...] nursing note reviewed. Exam conducted with a cook ship present. Vitals: Estimated body mass index is [...] of: Wolfgang Hoffman DO documented in this encounterKansas City VA Medical [id number] History of Present illness Narrative* MICHELLE Forrest [...] hyperactivity disorder) ([facility]) 01/11/2012 Deterioration in school performance 01/21/2015 Migraines ([facility]) 11/28/2020 Nocturnal enuresis 12/12/2012 Psychogenic nonepileptic seizure ([facility]) 11/29/2020 Resolved Ambulatory Problems Diagnosis Date [...] of: Wolfgang Hoffman DO documented in this encounterKansas City VA Medical [id number] Miscellaneous Notes* Telephone Encounter - Tessa Roberts CMA - 11/03/2023 11:37 AM EDT We received a letter from [facility] stating that the procedure on 09/27/23 was not covered. The Cholecystectomy was ordered by Dr Morgan on 09/27/23, the actual surgery wasn't performed until 10/03/23. I scanned the letter into her chart & spoke to Trinity, at the [employer] Main line. She could seethe letter & she will get it to the [place] specialist. documented in this encounter[facility] Telephone encounter Note* Telephone Encounter - Tessa Roberts CMA - 11/03/2023 11:37 AM EDT We received a letter from [facility] stating that the procedure on 09/27/23 was not covered. The Cholecystectomy was ordered by Dr Morgan on 09/27/23, the actual surgery wasn't performed until 10/03/23. I scanned the letter into her chart & spoke to Trinity, at the [employer] Main line. She could seethe letter & she will get it to the [place] specialist. [facility]03-12-2024 History of Present illness Narrative* Viki Patel, HYDRO MECHANIC-MAKE UP ARTIST - 10/18/2023 10:00 AM EDT Subjective Kemi [...] Status post laparoscopic cholecystectomy [Z90.49] GERMAN DEAN [facility] Surgery [place] This note was created with the assistance of a speech recognition program. While intending to generate a timely document that accurately reflects the content of the visit, no guarantee can be provided that every grammatical or spelling mistake has been or will be identified or corrected. Thank you for your understanding. GERMAN Dean 10/18/23 1014 documented in this encounterSelect Medical [facility]-2024 NoteXR CHEST 2 VWS Procedure: Chest x-ray performed Number of views:2 History:Preop asthma Comparison:None Findings: The heart and lungs show no acute findings, and the mediastinum and manasa are grossly negative . Impression: 1. No acute change. Finalized by Umesh Bolaños MD on 09/28/2023 10:05 [facility] 09-28-2023 Note Procedure: Chest x-ray performed Number of views:2 History:Preop asthma Comparison:None Findings: The heart and lungs show no acute findings, and the mediastinum and manasa are grossly negative . Impression: 1. No acute change. Finalized by Umesh Bolaños MD on 09/28/2023 10:05 [id number] Instructions* Patient Instructions* Noemí Arnett RN - 09/28/2023 9:00 AM EST Preoperative Education Checklist- General Surgery date: 10/03/23 Surgery time: 1100 a.m. Arrival time: 0900 a.m. 1. Bring a photo ID and your insurance card with you the day of surgery. You will check in at the main lobby of the [facility]- registration desk is straight ahead as soon as you walk in. Tell them you are here for surgery. 2. If you have a Living Will/Durable Power of Medical Anthropology Director for Health Care that is not on [...] after you have bathed. 5. NO nail kazakh/acrylic on at least one finger. If you are having a hand, wrist or foot surgery then all nail kazakh and artificial/acrylic nails must be removed from [...] please call the Preadmission Testing office at [phone], Mon.-Fri. 7 a.m.-3 p.m. Leave a voicemail [...] appointment with your doctor. documented in this encounterSelect Medical [facility]-2024 Miscellaneous Notes* Perioperative Nursing Note - Noemí Arnett RN - 09/28/2023 9:00 AM EST Preoperative Education Checklist- General Surgery date: 10/03/23 Surgery time: 1100 a.m. Arrival time: 0900 a.m. 1. Bring a photo ID and your insurance card with you the day of surgery. You will check in at the main lobby of the [facility]- registration desk is straight ahead as soon as you walk in. Tell them you are here for surgery. 2. If you have a Living Will/Durable Power of Medical Anthropology Director for Health Care that is not on [...] after you have bathed. 5. NO nail kazakh/acrylic on at least one finger. If you are having a hand, wrist or foot surgery then all nail kazakh and artificial/acrylic nails must be removed from [...] please call the Preadmission Testing office at [phone], Mon.-Fri. 7 a.m.-3 p.m. Leave a voicemail [...] reviewed. Patient verbalized understanding. documented in this encounterSelect Medical [facility]-21-2024 Nurse Note* Perioperative Nursing Note - Noemí Arnett RN - 09/28/2023 9:00 AM EST Preoperative Education Checklist- General Surgery date: 10/03/23 Surgery time: 1100 a.m. Arrival time: 0900 a.m. 1. Bring a photo ID and your insurance card with you the day of surgery. You will check in at the main lobby of the [facility]- registration desk is straight ahead as soon as you walk in. Tell them you are here for surgery. 2. If you have a Living Will/Durable Power of Medical Anthropology Director for Health Care that is not on [...] after you have bathed. 5. NO nail kazakh/acrylic on at least one finger. If you are having a hand, wrist or foot surgery then all nail kazakh and artificial/acrylic nails must be removed from [...] please call the Preadmission Testing office at [phone], Mon.-Fri. 7 a.m.-3 p.m. Leave a voicemail [...] to the follow-up appointment with your doctor. [facility] [employer]ify [id number] Nurse Note* Perioperative Nursing Note - Noemí Arnett RN - 09/28/2023 9:00 AM EST Hibiclens and surgical instructions reviewed. Patient verbalized understanding. [facility]MANmon[facility] hospitalGrooveshark [id number] History of Present illness Narrative* Alo Morgan [...] patient/family/caregiver Referring and communicating with other health health care facility administrator Alo Morgan MD [facility] General Surgery [place] documented in this encounterSelect Medical [facility]02-06-2024 Miscellaneous Notes* Telephone Encounter - Deja Roberts - 09/13/2023 10:46 AM EST Patient no called no showed for appointment with Dr. Morgan. I called Kemi to see if we could reschedule this appointment. Left message on voicemail to call the office back as I was unable to make contact. documented in this encounterSelect Medical [facility]-06-2024 Telephone encounter Note* Telephone Encounter - Deja Roberts - 09/13/2023 10:46 AM EST Patient no called no showed for appointment with Dr. Morgan. I called Kemi to see if we could reschedule this appointment. Left message on voicemail to call the office back as I was unable to make contact. [facility]01-16-2024 Miscellaneous Notes* Telephone Encounter - Paola Temple CMA - 08/23/2023 8:13 AM EST Left message for patient to call back to reschedule appointment. documented in this encounterSelect Medical [facility]-16-2024 Telephone encounter Note* Telephone Encounter - Paola Temple CMA - 08/23/2023 8:13 AM EST Left message for patient to call back to reschedule appointment. [facility]01-09-2024 Miscellaneous Notes* Telephone Encounter - Deja Roberts - 08/16/2023 11:03 AM EST Called patient in regard to gallstone referral from Dr. Burns's office. Left message on voicemail to call the office back to schedule appointment. * Telephone Encounter - Deja Roberts - 08/16/2023 11:03 AM EST Sandeep called the office back and scheduled an appointment with Dr. Morgan for 08-23-23. documented in this encounterSelect Medical [facility]-09-2024 Telephone encounter Note* Telephone Encounter - Deja Roberts - 08/16/2023 11:03 AM EST Called patient in regard to gallstone referral from Dr. Burns's office. Left message on voicemail to call the office back to schedule appointment. [facility]01-09-2024 Telephone encounter Note* Telephone Encounter - Deja Roberts - 08/16/2023 11:03 AM EST Sandeep called the office back and scheduled an appointment with Dr. Morgan for 08-23-23. [facility]04-24-2021 NoteDischarge/Transfer Summary Name: Kemi Piper MR#: [id number] : 2005 Room #: 6221/01 Age/Sex: 15 y.o. female Admit Date: 11/28/2020 Admitting: Reggie Conner MD Discharge Date: 11/29/2020 [facility]charged from: [facility] Attending: Dr. Reggie Conner MD Final [...] with vision loss. She was seen at [facility] Emergency department and observed with normal [...] and she was admitted directly to [facility] Neurology. On the floor, patient complained [...] Up Future Labs/Procedures Ex (more content not included)...[facility]04-23-2021 NoteMEDICAL ADMISSION HISTORY AND PHYSICAL Date [...] of seizure like episodes since Jul. 1d CLOTH SANDER, estimated as 1840, patient had a spacing out episode of staring ahead and then acting confused. It last approximately 9m. Patient fell asleep afterwards and woke up around 1913. This episode differed from past ones in that it was related to vision loss. Family initially presented to [facility] where she was observed til vision [...] This prompted family to seek evaluation at [facility] once more. They do note she [...] mom identifies as Dr. Jesús Choe in [place]. They have an upcoming appointment on 12/02. Of note, she was recently seen at [facility] on 11/15, where lab work [...] injuries: did recently hit her head 4d CLOTH SANDER (sister was getting this day and she [...] Medication changes: Has bee (more content not included)...[facility] No data available for this section [facility] General Surgery Info Assembly Evaluation note* Diagnosis Biliary colic- Primary Calculus of gallbladder without mention of cholecystitis or obstruction documented in this encounter [facility]* Diagnosis Preop examination- Primary Unspecified pre-operative examination Asthma, unspecified asthma severity, unspecified whether complicated, unspecified whether persistent Preop examination Unspecified pre-operative examination Asthma, unspecified asthma severity, unspecified whether complicated, unspecified whether persistent Preop examination Unspecified pre-operative examination Asthma, unspecified asthma severity, unspecified whether complicated, unspecified whether persistent documented in this encounter [facility]* Diagnosis Status post laparoscopic cholecystectomy- Primary Other postprocedural status documented in this encounter [facility]* Diagnosis PCOS (polycystic ovarian syndrome)- Primary Polycystic ovaries documented in this encounter [facility]* Diagnosis PCOS (polycystic ovarian syndrome)- Primary Polycystic ovaries documented in this encounter [facility]* Diagnosis Missed menses , unspecified gestational age Encounter for supervision of normal first in first trimester documented in this encounter [facility]* Diagnosis First trimester state, incidental 12 weeks gestation of History of psychogenic nonepileptic seizure documented in this encounter [facility]* Diagnosis Well woman exam with routine gynecological exam Routine gynecological examination Second trimester ([facility]) state, incidental 16 weeks gestation of ([facility]) Vaginal discharge Leukorrhea, not specified as infective STD exposure Screening, , for anatomic survey ([facility]) Encounter for anatomic survey documented in [...] ([facility]-H[facility]) state, incidental 26 weeks gestation of ([facility]) History of psychogenic nonepileptic seizure [facility]* Diagnosis Third trimester ([facility]) state, incidental 28 weeks gestation of ([facility]) documented in this [facility]* Diagnosis Third trimester ([facility]-H[facility]) state, incidental 29 weeks gestation of ([facility]) Psychogenic nonepileptic seizure Diabetes mellitus screening Screening for diabetes mellitus documented in this encounter [facility]* Diagnosis 31 weeks gestation of ([facility]-H[facility]) Third trimester ([facility]-HCC) state, incidental documented in [facility]* Diagnosis size inconsistent with dates ([facility])- Primary 33 weeks gestation of ([facility]-HCC) Third trimester ([facility]) state, incidental Psychogenic nonepileptic seizure documented [facility] encounter [facility]* Diagnosis Third trimester ([facility]-H[facility]) state, incidental 35 weeks gestation of ([facility]) Psychogenic nonepileptic seizure documented [facility] this encounter [facility]* Diagnosis Onset Date Resolution Status Admit Date Psychogenic nonepileptic seizure acuteNovember 2024 8:49am [facility] Work Phone: Hospital Discharge instructions No data available for this section [facility] General Surgery [place] InstructionsNot on filedocumented in this encounter [facility]Not on filedocumented in this encounter [facility] SystemInstructionsNot on filedocumented in this encounter [facility] SystemInstructionsNot on filedocumented in this encounter [facility] System[facility] note No data available for this section [facility] General Surgery [place] Reason for referral (narrative)No reason for referral information availableK[facility]tering Health [facility] Work Phone: Summary Purpose Family History No Family History Records FoundNo Family History Records Found No data available for this section No Family History Records FoundNo Family History Records FoundNo Family History Records FoundNo Family History Records FoundNo Family History Records FoundNo Family History Records Found Advance Directives Advance Directive Response Recorded Date/ Time Advance Directives No December 01, 2 021 9:07am Reason for Referral SpecialtyDiagnoses / ProceduresReferred By ContactReferred To Contact Diagnoses Preop examination Asthma, unspecified asthma severity, unspecified whether complicated, unspecified whether persistent Procedures ECG 12 lead Yo Berman MD [address] [place] [address] Referral IDStatusReasonStart DateExpiration DateVisits RequestedVisits [id number] / ProceduresReferred By ContactReferred To Contact Diagnoses Biliary colic Procedures Unlisted Procedure / Surgery Alo Morgan MD [address] [place] [address] Referral IDStatusReasonStart DateExpiration DateVisits RequestedVisits [id number] Review/ Additional Source Comments INFORMATION SOURCE (unrecogn ized section and content) DATE CREATED AUTHOR 11/30/2020 [facility] DATE CREATED AUTHOR AUTHOR'S ORGANIZ ATION 01/14/2023 [facility] DATE CREATED AUTHOR AUTHOR'S ORGANIZ ATION 07/27/2023 [facility] DATE CREATED AUTHOR AUTHOR'S ORGANIZ ATION 09/12/2023 [facility] DATE CREATED AUTHOR AUTHOR'S ORGANIZ ATION 10/08/2023 [facility] DATE CREATED AUTHOR AUTHOR'S ORGANIZ ATION 10/19/2023 [facility] DATE CREATED AUTHOR AUTHOR'S ORGANIZ ATION 03/17/2025 [facility] DATE CREATED AUTHOR AUTHOR'S ORGANIZ ATION 06/11/2025 [facility] EPIC Patient Care team informatio n (unrecognized section and content) Team MemberRelationshipSpecialtyStart DateEnd Date Rashard Burns MD [address] [facility] [place] [address] PCP - GeneralFamily Medicine03/25/21Team MemberRelationshipSpecialtyStart DateEnd Date Rashard Burns MD [address] [facility] [place] [address] PCP - GeneralFamily Medicine03/25/21Team MemberRelationshipSpecialtyStart DateEnd Date Rashard Burns MD [address] [facility] [place] [address] PCP - GeneralFamily Medicine03/25/21Team MemberRelationshipSpecialtyStart DateEnd Date Rashard Burns MD [address] [facility] [place] [address] PCP - GeneralFamily Medicine03/25/21Team MemberRelationshipSpecialtyStart DateEnd Date Rashard Burns MD [address] [facility] [place] [address] PCP - GeneralFamily Medicine03/25/21Team MemberRelationshipSpecialtyStart DateEnd Date Rashard Burns MD [address] [facility] [place] [address] PCP - GeneralFamily Medicine03/25/21Team MemberRelationshipSpecialtyStart DateEnd Date Rashard Burns MD [address] [facility] [place] [address] PCP - GeneralFamily Medicine02/16/23Team MemberRelationshipSpecialtyStart DateEnd Date Rashard Burns MD [address] [facility] [place] [address] PCP - GeneralFamily Medicine02/16/23Team MemberRelationshipSpecialtyStart DateEnd Date Rashard Burns MD [address] [facility] [place] [address] PCP - GeneralFamily Medicine02/16/23Team MemberRelationshipSpecialtyStart DateEnd Date Rashard Burns MD [address] [facility] [place] [address] PCP - GeneralFamily Medicine02/16/23Team MemberRelationshipSpecialtyStart DateEnd Date Rashard Burns MD [address] [facility] [place] [address] PCP - GeneralFamily Medicine02/16/23Team MemberRelationshipSpecialtyStart DateEnd Date Rashard Burns MD [address] [facility] [place] [address] PCP - GeneralFamily Medicine02/16/23Team MemberRelationshipSpecialtyStart DateEnd Date Rashard Burns MD [address] [facility] [place] [address] PCP - GeneralFamily Medicine02/16/23Team MemberRelationshipSpecialtyStart DateEnd Date Rashard Burns MD PCP - GeneralFamily Medicine02/16/23Team MemberRelationshipSpecialtyStart DateEnd Date Rashard Burns MD [address] [facility] [place] [address] PCP - Generalmily Medicine02/16/23Team MemberRelationshipSpecialtyStart DateEnd Date Rashard Burns MD [address] [facility] [place] [address] PCP - GeneralFamily Medicine02/16/23Team MemberRelationshipSpecialtyStart DateEnd Date Rashard Burns MD [address] [facility] [place] [address] PCP - GeneralFamily Medicine02/16/23Team MemberRelationshipSpecialtyStart DateEnd Date Rashard Burns MD [address] [facility] [place] [address] PCP - GeneralFamily Medicine02/16/23Team MemberRelationshipSpecialtyStart DateEnd Date Rashard Burns MD [address] [facility] [place] [address] PCP - GeneralFamily Medicine02/16/23Team MemberRelationshipSpecialtyStart DateEnd Date Rashard Burns MD [address] [facility] [place] [address] PCP - Generalmily Medicine02/16/23Team MemberRelationshipSpecialtyStart DateEnd Date Rashard Burns MD [address] [facility] [place] [address] PCP - Generalmi Medicine02/16/23Team MemberRelationshipSpecialtyStart DateEnd Date Rashard Burns MD [address] [facility] [place] [address] PCP - Generalmi Medicine02/16/23Team MemberRelationshipSpecialtyStart DateEnd Date Rashard Burns MD [address] [facility] [place] [address] [facility] - [facility] Medicine02/16/23Team MemberRelationshipSpecialtyStart DateEnd Date Rashard Burns MD [address] [facility] [place] [address] PCP - [facility]South[facility] Medicine02/16/23Team MemberRelationshipSpecialtyStart DateEnd Date Rashard Burns MD [address] [facility] [place] [address] PCP - [facility]South[facility] Medicine02/16/23 Team Status: Active Member Role/Relationship Status Dates Rashard Burns MD Primary Care Provider Active Team Status: Inactive Member Role/Relationship Status Dates Tyson Dillard DO Attending Provider Active Start: June 17, 2025 End: June 17, 2025Rashard Burns MDPriusa health university hospital Care ProviderActiveStart: June 17, 2025 End: June 17, 2025 Reason for Visit (unrecogniz ed section and content) ReasonCommentsCholelithiasisCHOLELITHIAIS, REFERRED BY DR. Nair Post-opPost op davinci cholecystectomy performed 10/03/23 at PMHReasonComments discuss cyclesReasonCommentsFollow-upReasonCommentsAmenorrheaReasonComments Routine VisitReasonCommentsRoutine VisitWell Women VisitSTI ScreeningReasonCommentsRoutine Visit31 weeks 5 days Goals (unrecognized section and content) Goals may be documented in a n alternate section FOR RECORDS PERTAINING TO PATIENTS WHO ARE [...] BE BASED ON THE PRIMARY CLINICAL RECORDS. [employer] provides no warranty or guarantee of the accuracy or completeness of information in this document.
[2025-06-20 20:03] LABS: Cannabinoid Screen Urine NEGATIVE (NEGATIVE); Methamphetamines Screen Urine NEGATIVE (NEGATIVE); Tricyclic Antidepressant Urine NEGATIVE (NEGATIVE)
[2025-06-20 20:31] VITALS: BP 130/81; PULSE 70
[2025-06-20 21:06] LABS: Hematocrit 34.3 % (36.0-48.0); Hemoglobin 12.2 g/dL (12.0-16.0); Mean Corpuscular HGB Conc 35.6 g/dL (29.9-35.2); Mean Corpuscular Hemoglobin 30.9 pg (26.7-34.0); Mean Corpuscular Volume 86.8 fL (81.0-99.0); Platelet Count 197 10^3/uL (150-450); Red Blood Count 3.95 10^6/uL (4.20-5.40); White Blood Count 10.3 10^3/uL (4.0-11.0)
[2025-06-20] MEDS: 0.9 % SODIUM CHLORIDE 1,000 ML 125 ML IV (22:13)
[2025-06-21] VITALS (40 sets, daily range): BP systolic 102–157; BP diastolic 57–101; PULSE 65–90; TEMP 36.7–36.9
[2025-06-21] MEDS: OXYTOCIN/0.9 % SODIUM CHLORIDE 10 UNITS/500 ML PLAST..BAG 6 UNIT IV (05:09)
[2025-06-21] MEDS: 0.9 % SODIUM CHLORIDE 1,000 ML 125 ML IV (06:06)
[2025-06-21] MEDS: 0.9 % SODIUM CHLORIDE 1,000 ML 1000 ML IV (07:39)
[2025-06-21] MEDS: ROPIVACAINE HCL/PF 400 MG/200 ML PREMIX 6 MG EPIDURAL (07:39)
--- NOTE | 2025-06-21 09:13 | PM.OBPRCVD ---
Procedure Intrapartal events: None Induction method: none Delivery augmentation: rupture of membranes and pitocin Delivery monitor: external FHT and external uterine Route of delivery: Episiotomy Description: none L&D Laceration Description: periurethral - 1st degree Delivery repair: Vicryl Estimated blood loss (mL): 200 Anesthesia type: Epidural Disposition: floor Delivery date: 06/21/25 Gender: male presentation: vertex Placental delivery description: Spontaneous cord description: 3 Vessels
[2025-06-21] MEDS: OXYTOCIN/0.9 % SODIUM CHLORIDE 20 UNITS/1,000 ML PLAST..BAG 125 UNIT IV (09:39)
[2025-06-21] MEDS: BENZOCAINE/MENTHOL 85 GRAM SPRAY BOTTLE 1 APPLIC TOPICAL (14:11)
[2025-06-22 06:25] LABS: Hematocrit 34.6 % (36.0-48.0); Hemoglobin 11.9 g/dL (12.0-16.0); Immature Granulocytes Abs Auto 0.36 10^3/uL (0.00-0.03); Immature Granulocytes Pct Auto 2.6 % (0.0-0.5); Lymphocytes Absolute Auto 2.6 10^3/uL (1.2-3.8); Mean Corpuscular HGB Conc 34.4 g/dL (29.9-35.2); Mean Corpuscular Hemoglobin 30.0 pg (26.7-34.0); Mean Corpuscular Volume 87.2 fL (81.0-99.0); Platelet Count 162 10^3/uL (150-450); Red Blood Count 3.97 10^6/uL (4.20-5.40); White Blood Count 13.7 10^3/uL (4.0-11.0)
--- NOTE | 2025-06-22 07:04 | P.OBPN_ITS ---
OB - PN: Subj Subjective Patient comments: no complaints [place] status: doing well feeding status: exclusively bottle feeding Exam Constitutional Vital Signs, click to edit/add: Last Vital Signs Temp 98.0 F 06/21/25 23:30 Pulse 68 06/21/25 23:29 Resp 17 06/21/25 23:30 BP 119/69 06/21/25 23:29 O2 Del Method Room Air 06/21/25 23:30 Documenting provider has reviewed patient's vital signs: yes Common normals: no apparent distress, average body habitus, oriented x3, no ruiz itations, healthy appearing, alert and well nourished Exam limitations: altered mental status General appearance: cooperative, comfortable, well kempt and well developed Orientation/consciousness: Yes awake, Yes oriented to person, Yes oriented to place and Yes oriented to time HENMT Face and sinus: normal facial exam Eye Common normals: EOMs intact bilaterally General eye: normal appearance of both eyes Neck & C-Spine Common normals: full ROM and no lymphadenopathy General: normal visual inspection Lymph Lymphatic: no lymphadenopathy noted Chest Common normals: inspection of chest normal Respiratory Common normals: normal respiratory effort, no retractions, no use of accessory muscles, clear to auscultation bilaterally and percussion normal Effort & inspection: able to speak in complete sentences Auscultation: clear to auscultation bilaterally Cardio Common normals: regular rate and regular rhythm Rate: regular rate Rhythm: regular rhythm GI Common normals: Normal to inspection, nondistended, normoactive bowel sounds present, soft to palpation and non-tender Inspection: normal to inspection Auscultation: normoactive bowel sounds Palpation: soft Percussion: normal to percussion Rectal Exam - Female: deferred Common normals: no CVA tenderness Back & Pelvis Common normals: no CVA tenderness Extremity Common normals: normal to inspection and full ROM Neuro Common normals: oriented x3 Sensorium/orientation: awake, alert, oriented to person, oriented to place and oriented to time Psych Common normals: mental status grossly normal, thought process normal, cooperative, affect normal, speech normal, activity/motor behavior normal, denies hallucinations, denies homicidal ideation and denies suicidal ideation Appearance: grossly normal Attitude: calm Results Labs Labs: Short CBC 06/22/25 Range/Units 06:06 WBC 13.7 H (4.0-11.0) 10^3/uL Hgb 11.9 L (12.0-16.0) g/dL Hct 34.6 L (36.0-48.0) % Plt Count 162 (150-450) 10^3/uL OB - PN: A/P Plan - Vaginal Delivery day: 2 Plan: discharge home Time Spent with Patient Time: Total time spent is greater than 50% in coordination of care (as documented) at patient's floor/unit and/or counseling patient: Total time spent with greater than 50% in coordination of care (as documented) at patient's floor/unit and/or counseling patient: less than 15 minutes
[2025-06-22 10:54] VITALS: BP 125/84; PULSE 67; TEMP 36.7
[2025-06-22] MEDS: DOCUSATE SODIUM 100 MG CAPSULE PO (10:54)
== END 2025-06-22 15:30 | disposition home or self-care (01) | DRG 560 ==
PROVIDERS: Admitting Provider Obstetrics & Gynecology; Visit Provider Obstetrics & Gynecology
DX: O99.334 Smoking (tobacco) complicating childbirth (principal); F17.290 Nicotine dependence, other tobacco product, uncomplicated; O70.0 First degree perineal laceration during delivery; Z3A.37 37 weeks gestation of pregnancy; Z37.0 Single live birth; Z87.440 Personal history of urinary (tract) infections; Z90.49 Acquired absence of other specified parts of digestive tract
CPT/HCPCS: 36415; 51702; 59025; 59050; 76816; 80307; 81001; 85025; 85027; 86850; 86900; 86901; 87086; 87088; 87106; J0665; J2795

== ENCOUNTER 2025-08-05 09:04 | Outpatient (OUT) | payer OTHER, SELFPAY ==
--- OUTSIDE RECORDS SUMMARY | 2025-08-05 09:09 | XMS_ITS | Clinical Summary ---
Author Organization [facility] [place] [address] Care Team Providers Care Interlibrary Loan Specialist Name Role Phone Jose E Burns MD Primary Care Provider [phone] Allergies No known active allergies Medications MedicationSigDispense [...] 11/06/2020ctive Active Problems ProblemNoted DateDiagnosed DatePsychogenic nonepileptic uqwwbhe1911/29/2020 Ojpvjpnra38/23/2021eterioration in school lxlyhbtakhi14/16/2015Nocturnal jdsycimv93/07/2013DHD (attention deficit hyperactivity disorder)01/11/2012 Resolved Problems ProblemNoted DateDiagnosed DateResolved DateSeizure-like wutjxbyo96/23/2021 11/29/2020Vision lossouble obijok29 Social History Tobacco UseTypesPacks/DayYears UsedDateSmoking Tobacco: Passive Smoke Exposure - Never SmokerAlcohol UseStandard Drinks/WeekCommentsNever0 (1 standard drink = 0.6 oz pure alcohol)CommentsNoSex and Gender InformationValueDate RecordedSex Assigned at BirthNot on fileLegal HakPfcymt33/20/2012 5:51 PM EST Gender IdentityNot on fileSexual OrientationNot on file Last Filed Vital Signs Vital SignReadingTime TakenCommentsBlood Uuulkrtz655/7404/ 9:29 AM EDT Pcidf4634 9:29 AM TKYFwzmfthzifv63.4 ??C (97.5 ??F)11/29/2020 9:29 AM EDTRespiratory Ixxk9408 9:29 AM EDTOxygen Ugscjjzvok92%11/29/2020 9:29 AM EDTInhaled Oxygen Concentration--Sewspq93.4 kg (164 lb 0.4 oz)11/28/2020 6:45 AM DKQHjdvql614.5 cm (5' 7.91 )11/28/2020 6:45 AM EDTBody Mass Jeryn9997/23/2021 6:45 AM EDT Plan of Treatment Health MaintenanceDue DateLast DoneCommentsMenB (1 of 2 - MenB 2-Dose Series Bexsero)2019COVID-19 ( season)2025FLU (#1)04/08/2025 06/22/2016, 07/29/2011Tetanus Diphtheria and Pertussis Vaccines (7 - Td or Tdap) 6003/25/2016, 04/23/2009, 02/24/2007, Additional history existsHepatitis KKohqzqjsc45/17/2007, 05/11/2004, 04/09/2004, Additional history existsHIB Mrmfmnbkd09/20/2007, 08/24/2006, 05/11/2004, Additional history exists PneumococcalAged Out02/24/2007, 08/24/2006, 05/11/2004, Additional history existsNo longer eligible based on patient's age to complete this topicHepatitis JSafwympnb26/16/2009, 02/24/20078790QHAMbjohhhxz97/16/2009, 08/24/2006PolioCompleted 04/23/2009, 08/24/2006, 05/11/2004, Additional history existsVaricellaCompleted 04/23/2009, 08/24/2006MenACWYAged Out03/25/2016No longer eligible based on patient's age to complete this diqcoYNFHskoqulqy17/15/2017, 06/22/2016, 03/25/2016NirsevimabAged OutNo longer eligible based on patient's age to complete this topicRotavirusAged OutNo longer eligible based on patient's age to complete this topic Insurance Care Teams Team MemberRelationshipSpecialtyStart DateEnd Date Jose E Burns MD [address] [place] [address] PCP - General08/28/10
--- OUTSIDE RECORDS SUMMARY | 2025-08-05 09:09 | XMS_ITS | Clinical Summary ---
Author Organization [facility] tem Address [id number] [address] [place] [address] Care Team Providers Care Client Experience Manager Name Role Phone Jose E Burns MD Primary Care Provider [phone] Allergies No known active allergies Medications MedicationSigDispense [...] standard drink = 0.6 oz pure alcohol)ChildcareAnswerDate RtlyqtkqCrioppjerAfpbaqs04/12/2019EmploymentAnswer Date XilanyatOpzrdwhwieLcexgtk60/12/2019Hunger ScreeningAnswerDate Recorded Within the past 12 months we worried whether our food would run out before we got money to buy more.Never True10/18/2023Food Insecurity - InabilityNot on file 10/18/2023CommentsNoSex and Gender InformationValueDate RecordedSex Assigned at BirthNot on fileLegal LntSfchwd51/06/2015 12:01 PM EDTGender IdentityNot on fileSexual OrientationNot on file Last Filed Vital Signs Vital SignReadingTime TakenCommentsBlood Yusqohpd909/6203 10:03 AM EDT Boeou607210/18/2023 10:03 AM OSXDjimefhwckl20.4 ??C (97.5 ??F)10/03/2023 1:45 PM ESTRespiratory Qvhl801510/03/2023 2:29 PM ESTOxygen Npxgqzrbts452%10/03/2023 2:29 PM ESTInhaled Oxygen Concentration--Vscrfk35.6 kg (133 lb 9.6 oz)10/18/2023 10:03 AM DDUEwuivd004.3 cm (5' 9 )10/18/2023 10:03 AM EDTBody Mass Index19.73 10/18/2023 10:03 AM EDT Plan of Treatment Health MaintenanceDue DateLast DoneCommentsDepression Jikhvychb04/16/2015Pap Smear2024dult BMI Kmcqhnpas93Tobacco Screening Influenza Ttzqwrv64/, 06/22/2016, 07/29/2011DTaP,Tdap and Td Vaccines (7 - Td or Tdap)6003/25/2016, 04/23/2009, 02/24/2007, Additional history exists Medical Devices Not on file Insurance Care Teams Team MemberRelationshipSpecialtyStart DateEnd Date Jose E Burns MD PCP - Generalmily Medicine03/25/21
--- OUTSIDE RECORDS SUMMARY | 2025-08-05 09:10 | XMS_ITS | Patient Health Record ---
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 Ibuprofen and or Tylenol as needed for fever, chills, body aches or pain. Children 5 years old should not be given mqzi-oml-vjisxio cough and cold medications such as guaifenesin and dextromethorphan. If you're over age 5, you may try vhdb-kxn-risvbnz cold medications such as guaifenesin and dextromethorphan, [...] ABD FLAT UP_PA CH 06/02/2023 Hgb Fractionation [place] 06/03/2025 Insurance Providers Payer Name Payer Address Payer Phone Subscriber Number Group Number Insured Name Patient Relationship to Insured Coverage Start Date Coverage End Date [employer] [employer] [address] DARLENE YANEZ [id number] Kathryn Piperelf - patient is the [id number] 2024 Medical (General) History Medical History History [...] child visit Z00.129 Surgical History Surgery Date(Month/Year) appendicitis 01/2021 Gallbladder 10/03/2023
--- OUTSIDE RECORDS SUMMARY | 2025-08-05 09:10 | XMS_ITS | Clinical Summary ---
Author Organization [facility] Address [address] [place] [address] Care Team Providers Care Accounts Receivable Executive Name Role Phone Jose E Burns MD Primary Care Provider [phone] Allergies No known active allergies Medications MedicationSigDispense QuantityRefillsLast FilledStart DateEnd DateStatus 28-0.8 MG tablet Take 1 tablet by mouth DailyActive metroNIDAZOLE (Metrogel) 0.75 % vaginal gel Indications:Bacterial vaginosisPatient to use vaginally nightly for 5 nights, then twice weekly thereafter for 4 months. 140 g 5Active citalopram (CeleXA) 20 MG tablet Indications: anxiety ([facility])Take 2 tablets (40 mg) by mouth Daily 60 tablet 506Active desogestrel-ethinyl estradiol (Apri) 0.15-30 MG-MCG tablet Indications: control counselingTake 1 tablet by mouth Daily 28 tablet 121516Active Active Problems ProblemNoted DateDiagnosed DateThird trimester ([facility])12/27/2022 Psychogenic nonepileptic uwdkmbq4811/29/20208857Xsbkcezty27/23/2021eterioration in school mxperuggzkl21/16/2015Nocturnal xnqtjowx90/07/2013DHD (attention deficit hyperactivity disorder)01/11/2012 Encounters DateTypeDepartmentCare FywcFpnhzqyyfqe55/10/2025 3:40 PM ESTPostpartum Visit [facility] [address] [place] [address] Tiffany Hoffman, Pre-op examination; Request for sterilization; control ntjnonpfdm13/04/2025Patient Outreach [facility] [address] [place] [address] Gogo Montiel LPN 07/01/2025 11:20 AM ESTPostpartum Visit [facility] [address] [place] [address] Gogo Pang, PA Postoperative follow-up; anxiety ([facility])06/27/2025bstract [facility] [address] [facility] [place] [address] Tiffany Hoffman, 06/25/2025Patient Outreach [facility] [address] [place] [address] Gogo Montiel, RAEGAN 06/24/2025Telephone [facility] [address] [place] [address] Jennifer Lyman MA 06/22/2025bstract [facility] [address] [place] [address] Renuka Baron CNM 06/22/2025linisync Result Encounter [facility]OM[facility] External Department Unsolicited Tiffany Hoffman, DO 06/21/2025linisync Result Encounter [facility]OMS External Department Unsolicited Tiffany Hoffman, DO 06/20/2025External Result Encounter [facility] External Department Unsolicited Tiffany Hoffman, DO 06/20/2025linisync Result Encounter [facility]OM[facility] External Department Unsolicited Tiffany Hoffman, DO 06/20/2025bstract [facility] [address] [facility] [place] [address] Keyla Rodriguez MA 06/19/2025 3:30 PM ESTRoutine [facility] [place] [facility] [address] [facility] [place] [place] [address] Tiffany Hoffman, Third trimester ([facility]); 37 weeks gestation of ([facility])5Bamboo flowsheet [facility] [address] [facility] [place] [place] [address] Tiffany Hoffman, 06/10/2025 3:50 PM ESTRoutine [facility] [address] [facility] [place] [place] [address] Gogo Pang PA Third trimester ([facility]); 35 weeks gestation of ([facility]); Psychogenic nonepileptic qkhmfat7006/10/2025linisync Result Encounter NOMS External Department Unsolicited Gogo Pang PA 06/10/2025Patient Outreach [facility] [address] [place] [address] Gogo Montiel LPN 05/27/2025 3:50 PM EDTRoutine [facility] [address] [facility] [place] [address] Tiffany Hoffman, size inconsistent with dates ([facility]) (Primary Dx); 33 weeks gestation of ([facility]); Third trimester ([facility]); Psychogenic nonepileptic kvjmqub0205/27/2025amboo flowsheet [facility] [address] [facility] [place] [address] Tiffany Hoffman, 05/20/2025bstract [facility] [address] [facility] [place] [place] [address] Tiffany Hoffman, 05/20/2025Telephone [facility] [address] [facility] [place] [place] [address] Ela Calvillo NP 05/13/2025 3:50 PM EDTRoutine [facility] [address] [place] [address] [place] [address] Ela Calvillo NP 31 weeks gestation of ([facility]); Third trimester ([facility])05/13/2025[facility] [address] [place] [address] Gogo Montiel LPN 05/10/2025[facility] [address] [place] [address] Gogo Montiel LPN from Last 3 Months Social History Tobacco UseTypesPacks/DayYears UsedDateSmoking Tobacco: Never AssessedPHQ-2 AnswerDate RecordedPatient Health Questionnaire-2 Mjnpq60209/11/2024 CommentsNoSex and Gender InformationValueDate RecordedSex Assigned at BirthNot on fileLegal WqxWodjkr30/15/2023 6:34 PM EDTGender IdentityNot on fileSexual OrientationNot on file Last Filed Vital Signs Vital SignReadingTime TakenCommentsBlood Hpzyxgok014/7007/17/2025 3:54 PM EST Pulse--Temperature--Respiratory Rate--Oxygen Saturation--Inhaled Oxygen Concentration--Ooztwl47.6 kg (157 lb 12 oz)07/17/2025 3:54 PM ZCZVouvyr765.6 cm (5' 6 )12/21/2022 12:00 PM EDTBody Mass Index25.46012/21/2022 12:00 PM EDT Plan of Treatment Health MaintenanceDue DateLast DoneCommentsPneumococcal Vaccine: Pediatrics (0 to 5 Years) and At-Risk Patients (6 to 64 Years) (1 of 2 - PCV)2022 Influenza Vaccine (#1)5108/23/2020, 06/22/2016, 07/29/2011 Procedures Procedure NamePriorityDate/TimeAssociated DiagnosisCommentsALL CBC WITH AUTO JYOIOcltimz12/15/2025 6:06 AM EST US OB VAQGWN4906/21/2025 7:54 AM EST [facility] CBC WITH PLATELET NO YLXEFLNLODVMQaknsfz76/13/2025 6:30 PM EST URINE CULTURE - YFGZMnoguba58/13/2025 2:14 PM EST [facility] DRUG SCREEN RAPID (URINE)Ffyrhjv9306/20/2025 2:14 PM EST [facility] UA (CLEAN/CATCH) COMMUNICATIONS DEPARTMENT HEAD/MICRO IF IND.Komznxk1506/20/2025 2:14 PM EST CULTURE, URINE, SUSWRGQFfkfixs65/13/2025 2:14 PM EST POCT URINALYSIS FZLLEMKGFyyqxlo74/12/2025 3:55 PM EST 37 weeks gestation of ([facility]) POCT URINALYSIS NIUJKWMHGsndbhy73/03/2025 4:12 PM EST Third trimester ([facility]) STREP GP B CULTURE+DMIKDkpyygq67/03/2025 4:02 PM EST POCT URINALYSIS TZWKUUAOVsgulpr41/20/2025 4:20 PM EDT 33 weeks gestation of ([facility]) Third trimester ([facility]) Psychogenic nonepileptic seizure POCT URINALYSIS NOPMVAEXMmdrftl40/06/2025 3:59 PM EDT 31 weeks gestation of ([facility]) from Last 3 Months Results * (ABNORMAL) ALL CBC WITH AUTO DIFF (06/22/2025 6:06 AM EST)ComponentValueRef RangeTest MethodAnalysis TimePerformed AtPathologist SignatureTBH WBC13.7(H) 4.0 - 11.0 10 3/uLTBHTBH RBC3.97(L)4.20 - 5.40 10 6/uLTBHTBH HGB11.9(L)12.0 - 16.0 g/dLTBHTBH HCT34.6(L)36.0 - 48.0 %TBHTBH MCV87.281.0 - 99.0 fLTBHTBH MCH 30.026.7 - 34.0 pgTBHTBH MCHC34.429.9 - 35.2 g/dLTBHTBH RDW11.511.0 - 15.0 % TBHTBH PSN230968 - 450 10 3/uLTBHTBH MPV11.39.5 - 13.5 fLTBHNEUTROPHILS PERCENT AUTO66.243.0 - 75.0 %TBHLYMPHOCYTES PERCENT AUTO18.6(L)20.5 - 60.0 % TBHMONOCYTES PERCENT AUTO10.21.7 - 12.0 %TBHTBH EO %2.00.9 - 7.0 %TBHBASOPHILS PERCENT AUTO0.40.2 - 2.0 %TBHIMMATURE GRANULOCYTES PCT AUTO2.6(H)0.0 - 0.5 % TBHNEUTROPHILS ABSOLUTE AUTO9.1(H)1.4 - 6.5 10 3/uLTBHLYMPHOCYTES ABSOLUTE AUTO2.61.2 - 3.8 10 3/uLTBHMONOCYTES ABSOLUTE AUTO1.4(H)0.3 - 0.8 10 3/uLTBH TBH EO #0.30.0 - 0.7 10 3/uLTBHBASOPHILS ABSOLUTE AUTO0.10.0 - 0.1 10 3/uLTBH IMMATURE GRANULOCYTES ABS AUTO0.36(H)0.00 - 0.03 10 3/uLTBHSpecimen (Source) Anatomical Location / LateralityCollection Method / VolumeCollection Time Received Time06/22/2025 6:06 AM EST06/22/2025 6:20 AM EST Narrative [facility]IN[facility] - 06/22/2025 6:27 AM EST Authorizing ProviderResult TypeResult StatusCorey Yasmin DOCLINISYNCFinal Result Performing OrganizationAddressCity/State/ZIP CodePhone Number CLINISYNC [facility] * US OB GROWTH (06/21/2025 7:54 AM EST)Anatomical RegionLateralityModalityOther Specimen (Source)Anatomical Location / LateralityCollection Method / Volume Collection TimeReceived Time06/21/2025 7:54 AM EST Narrative 06/21/2025 7:56 AM EST [facility] ?[address] ? [place] [address] ? Ultrasound Report ? Signed ? Patient: NATHANKEMI ?MR#: [id number] ?? : 2005 ?Acct:[id number] ?? Age/Sex: 20 / F ?ADM Date: ?? Loc: [facility] ??253-1 ? Attending Dr: Tiffany Hoffman D.O. ? Ordering Physician: Tiffany Hoffman D.O. ?? Date of Service: 06/20/25 ?? Procedure(s): US OB growth ?? Accession Number(s): [id number] ? cc: Tiffany Hoffman D.O.; Physician,Non-Staff MCandace ? [facility] ? [address] ? [place] [address] ? Patient Name: ?? KEMI PIPER ? MRN: [facility]:[id number] ? date: 2005 ?Sex: F ?? Assigned Patient Location: [facility] ?? Current Patient Location: [facility] ?? Accession/Order Number: [id number] ?? Exam Date: 06/20/2025 ??14:56 ?Report Date: 06/21/2025 ??07:54 ? At the request of: ?? TIFFANY ??YASMIN ??DO ? Procedure: ??US OB growth ? ULTRASOUND OB GROWTH ? COMPARISON: 11/24/2024 ? CLINICAL DATA: Size and consistent with dates. ? There is a single live intrauterine gestation in cephalic presentation. ??There ?? is cardiac and somatic activity with heart rate of 123 bpm. ??The ?? amniotic fluid index measures 10 cm which is in low-normal range. ??The ?? placenta is anterior. ??The following measurements were obtained: ?? Biparietal diameter ?9.3 cm ?? 37 weeks 6 days ? 82% ?? Head circumference ?34.2 cm ?? 39 weeks 3 days ? 79% ?? Abdominal circumference ? 33.3 cm ?? 37 weeks 1 day ? 65% ?? Femur length ? 6.9 cm ?? 35 weeks 4 days ? 13% ?? The composite ultrasound age based these measurements is 37 weeks 4 days +/- 2 ?? weeks 4 days. ??The estimated date of delivery is 07/07/2025. ??The estimated ?? weight is 6 lbs. 14 oz. +/- 1 pound 0 ounces (56%). ? US/US OB growth ?? IMPRESSION: ? SINGLE LIVE INTRAUTERINE GESTATION WITH ULTRASOUND AGE OF 37 WEEKS 4 DAYS ? Impression dictated by: Porsha Rollins M.D. ??06/21/2025 7:54 AM ? Dictation Location: [facility]- ? Electronically authenticated by: [id number] ??Y ?? Date: 06/21/2025 ??07:54 ? Dictated By: ?Porsha Rollins M.D. ? Signed By: ?06/21/25 0756 ? DD/ 0754 ? TD/TT: ? Extraction Operator: Procedure Note Radiology, Radiologist, MD - 06/21/2025 [place] [address] Ultrasound Report Signed Patient: KEMI PIPER MMR#: [id number] : 2005Acct:[id number] Age/Sex: Date: Loc: [facility] 253-[address]: Tiffany Hoffman D.O. Ordering Physician: Tiffany Hoffman D.O. Date of Service: 06/20/25 Procedure(s): [facility] growth Accession Number(s): [id number] cc: Tiffany Hoffman D.O.; Physician,Non-Staff MCandace The [address] [address] Patient Name: KEMI PIPER MRN: [facility]:[id number] date: 2005 Sex: F Assigned Patient Location: [facility] Current Patient Location: [facility] Accession/Order Number: [id number] Exam Date: 06/20/2025 14:56 Report Date: 06/21/2025 07:54 At the request of: TIFFANY HOFFMAN DO Procedure: US OB growth ULTRASOUND OB GROWTH COMPARISON: 11/24/2024 CLINICAL DATA: Size and consistent with dates. There is a single live intrauterine gestation in cephalic presentation.There is cardiac and somatic activity with heart rate of 123 bpm. The amniotic fluid index measures 10 cm which is in low-normal range. The placenta is anterior. The following measurements were obtained: Biparietal diameter 9.3 cm 37 weeks 6 days 82% Head circumference 34.2 cm 39 weeks 3 days 79% Abdominal circumference 33.3 cm 37 weeks 1 day 65% Femur length 6.9 cm 35 weeks 4 days 13% The composite ultrasound age based these measurements is 37 weeks 4 days+/- 2 weeks 4 days. The estimated date of delivery is 07/07/2025. Theestimated weight is 6 lbs. 14 oz. +/- 1 pound 0 ounces (56%). US/US OB growth IMPRESSION: SINGLE LIVE INTRAUTERINE GESTATION WITH ULTRASOUND AGE OF 37 WEEKS 4 DAYS Impression dictated by: Porsha Rollins M.D. 06/21/2025 7:54 AM Dictation Location: [place] [address] Electronically authenticated by: [id number] Y Date: 7:54 Dictated By: Porsha Rollins M.D. Signed By:06/21/25 0756 DD/ 0754 TD/TT: Extraction Operator: Authorizing ProviderResult TypeResult StatusCorey Yasmin DOCLINISYNC IMAGINGFinal Result * (ABNORMAL) [facility] CBC WITH PLATELET NO DIFFERENTIAL (06/20/2025 6:30 PM EST) ComponentValueRef RangeTest MethodAnalysis TimePerformed AtPathologist SignatureTBH WBC10.34.0 - 11.0 10 3/uLTBHTBH RBC3.95(L)4.20 - 5.40 10 6/uLTBH TBH HGB12.212.0 - 16.0 g/dLTBHTBH HCT34.3(L)36.0 - 48.0 %TBHTBH MCV86.881.0 - 99.0 fLTBHTBH MCH30.926.7 - 34.0 pgTBHTBH MCHC35.6(H)29.9 - 35.2 g/dLTBHTBH RDW11.611.0 - 15.0 %[facility] [id number] - 450 10 3/uLTBMEMORIAL HEALTH SYSTEM [facility] MPV12.49.5 - 13.5 fL TBHSpecimen (Source)Anatomical Location / LateralityCollection Method / Volume Collection TimeReceived Time06/20/2025 6:30 PM EST06/20/2025 9:00 PM EST Narrative [facility] - 06/20/2025 9:12 PM EST Authorizing ProviderResult TypeResult StatusCorey Yasmin DOCLINISYNCFinal Result Performing OrganizationAddressCity/State/ZIP CodePhone Number CLINISYNC [facility] * (ABNORMAL) URINE CULTURE - [facility] (06/20/2025 2:14 PM EST)ComponentValueRef RangeTest MethodAnalysis TimePerformed AtPathologist SignatureURINE CULTURE - [facility] ??Urine Culture - [facility] Testing performed at [facility] TBRINE CULTURE - [id number] [place], [place] [address]VOUHIHCF CULTURE - [facility] RESULT^[facility] RESULT(A)TBHURINE CULTURE - [facility] SEE SCANNED REPORT, ABNORMAL^SEE SCANNED REPORT, ABNORMAL(A)TBHSpecimen (Source)Anatomical Location / LateralityCollection Method / VolumeCollection TimeReceived Time 06/20/2025 2:14 PM EST06/20/2025 2:20 PM EST Narrative [facility] - 06/23/2025 3:30 PM EST Authorizing ProviderResult TypeResult StatusCorey Yasmin DOLAB BLOOD ORDERABLES Final ResultPerforming OrganizationAddressCity/State/ZIP CodePhone Number CLINISYNC [facility] * (ABNORMAL) [facility] UA (CLEAN/CATCH) COMMUNICATIONS DEPARTMENT HEAD/MICRO IF IND. (06/20/2025 2:14 PM EST) ComponentValueRef [...] Performing OrganizationAddressCity/State/ZIP CodePhone Number [facility] * [facility] DRUG SCREEN RAPID (URINE) (06/20/2025 2:14 PM EST)ComponentValueRef Range Test MethodAnalysis TimePerformed AtPathologist SignatureCANNABINOID SCREEN URINENEGATIVENEGATIVETBHPHENCYCLIDINE SCREEN URINENEGATIVENEGATIVETBHCOCAINE SCREEN URINENEGATIVENEGATIVETBHMETHAMPHETAMINES SCREEN URINENEGATIVENEGATIVE TBHOPIATE SCREEN URINENEGATIVENEGATIVETBHAMPHETAMINE SCREEN URINENEGATIVE NEGATIVETBHBENZODIAZEPINES SCREEN URINENEGATIVENEGATIVETBHTRICYCLIC ANTIDEPRESSANT URINENEGATIVENEGATIVETBHMETHADONE SCREEN URINENEGATIVENEGATIVE TBHBARBITURATES SCREEN URINENEGATIVENEGATIVETBHOXYCODONE SCREEN URINENEGATIVE NEGATIVETBHBUPRENORPHINE SCREEN URINENEGATIVENEGATIVETBHComment: DRUG CLASS TEST SYSTEM CUT-OFF CONCENTRATIONS ARE FOLLOWS: AMP (Amphetamine): 500 ng/mL BAR (Barbiturates): 200 ng/mL BZO (Benzodiazepines): 150 ng/mL BUP (Buprenorphine): 10 ng/mL LUCIO (Cocaine): 150 ng/mL mAMP (Methamphetamine): 500 ng/mL MTD (Methadone): 200 ng/mL OPI (Opiates): 100 ng/mL OXY (Oxycodone): 100 ng/mL PCP (Phencyclidine): 25 ng/mL THC (Cannabinoids): 50 ng/mL TCA (Trycyclic Antidepressants): 300 ng/mL Specimen (Source)Anatomical Location / LateralityCollection Method / Volume Collection TimeReceived Time06/20/2025 2:14 PM EST06/20/2025 7:47 PM EST Narrative CLINCHAPINCITONC - 06/20/2025 8:03 PM EST Authorizing ProviderResult TypeResult StatusCorey Yasmin DOCLINISYNCFinal Result Performing OrganizationAddressCity/State/ZIP CodePhone Number [facility] * Urine culture (06/20/2025 2:14 PM EST)ComponentValueRef RangeTest Method Analysis TimePerformed AtPathologist SignatureURINE CULTURE RESULTS (FR) >100,000 col/ml Mixed Bacterial Skin Contaminants 2 Days06/23/2025 9:31 AM EST [facility]trFRMC ORGANISMCandida asrljpqj87/16/2025 9:31 AM ESTUpper [facility] CtrCOLONY COUNT<10,3715408/23/2024 9:31 AM EST [facility] CtrSpecimen (Source)Anatomical Location / LateralityCollection Method / VolumeCollection TimeReceived TimeUrineUrine specimen obtained by clean catch procedure / Qetayum8906/20/2025 2:14 PM EST 06/21/2025 8:02 AM ESTComment:Clean-Voided Midstream Narrative [facility] - 06/23/2025 9:31 AM EST Diagnosis: RULE OUT LABOR Comment: Authorizing ProviderResult TypeResult StatusCorey Yasmin [facility] - GENERAL ORDERABLESFinal ResultPerforming OrganizationAddressCity/State/ZIP Code Phone Number [facility] [address] [place] [address], [facility] [address] [place] [address] * (ABNORMAL) POCT urinalysis dipstick manually resulted (06/19/2025 3:55 PM EST) Only the most recent of4 resultswithin the time period is included. ComponentValueRef [...] GP B CULTURE+RFLX Performed at: - [facility] GP B CULTURE+[id number] [place], [place] [id number] GP B CULTURE+RFLXLab Director: Raimundo Cardenas PhD, Phone: [phone] (Source)Anatomical Location / Laterality Collection Method / VolumeCollection TimeReceived Time06/10/2025 4:02 PM EST 06/10/2025 8:50 PM EST Narrative [facility] - 06/15/2025 6:09 PM EST Authorizing ProviderResult TypeResult StatusAmy Poly PERALTA BLOOD ORDERABLES Final ResultPerforming OrganizationAddressCity/State/ZIP CodePhone Number CLINISYNC [facility] from Last 3 Months Insurance Care Teams Team MemberRelationshipSpecialtyStart DateEnd Jose E Burns MD [address] [place] [address] PCP - GeneralFamily Medicine02/16/23
--- OUTSIDE RECORDS SUMMARY | 2025-08-05 09:14 | XMS_ITS | CCD ---
Author Organization [facility] Care Team Providers Care Coring Machine Operator Name Role Phone YASMIN ., DR ALLEN [...] Unavailable YASMIN ., DR ALLEN Attending Unavailable HAMILTON, DR YO [employer] Unavailable YASMIN ., [...] AVILA Unavailable Rashard Burns Primary Care Physician [phone] Rashard Burns Referring Unavailable Alicja LINARES Attending [...] of OnsetReaction(s) Facility (1 source)amanda allergenic extractDrug [id number] [facility] Repository (1 source)Unable to obtain; Translations: [Unable to obtain]Propensity to adverse reactions (disorder)[facility] Repository (1 source)No Known Medication Allergies; Translations: [No Known Medication Allergies]Propensity to adverse reactions (disorder)[facility] Repository Medications Current Medications MedicationDrug Class(es)DatesSig (Normalized)Sig (Original)acetaminophen 500 mg oral tablet (2 sources)Start: 87-82-2998zxid 2 tablets by mouth every six hoursacetaminophen (TYLENOL EXTRA STRENGTH) 500 mg tablet Take 2 tablets (1,000 mg total) by mouth every6 (six) hours. 30 tablet 0 10/03/2023 [id number] 200 actuat albuterol 0.09 mg/actuat metered dose inhaler (13 sources)beta2-Adrenergic Agonist End: 32-63-6166qdlhnople HFA 90 mcg/act inhaler Inhale 2 puffs 12/06/2024 Discontinuedalbuterol (PROVENTIL HFA;VENTOLIN HFA) 90 mcg/actuation inhaler Inhale 2 puffs. 0 Activecephalexin 50 mg/ml oral suspension (2 sources)Cephalosporin AntibacterialStart: 03-20-2025 End: 04-31-3805ocsv 10 mL by mouth every six hourscephalexin (Keflex) 250 MG/5ML suspension Indications: Urinary tract infection without hematuria, site unspecified Take 10 mL (500 mg) by mouth every 6 (six) hours for 10 days 400 mL 03/20/2025 03/30/2025 Activecitalopram 20 mg oral tablet (20 sources)Serotonin Reuptake InhibitorStart: 04-03-2025 End: 53-87-7811xbaw 1 tablet by mouth once dailycitalopram (CeleXA) 20 MG tablet Indications: Anxiety, generalized Take 1 tablet (20 mg) by mouth Daily 30 tablet 5 04/03/2025 09/30/2025 Active End: 20-32-6042ttcu 1 tablet by mouth in the morningcitalopram (CeleXA) 10 MG tablet Take 10 mg by mouth in the morning. 12/06/2024 Discontinueddesmopressin acetate 0.2 mg oral tablet (9 sources)Vasopressin Analog, Factor VIII Activator End: 13-26-0907yjboxmgqaqbr (DDAVP) 0.2 MG tablet 2 qam and 1 prn 12/06/2024 Discontinueddesogestrel 0.15 mg / ethinyl estradiol 0.03 mg oral tablet (9 sources)Progestin, EstrogenStart: 06-19-2024 End: 24-13-7154gypn 1 tablet by mouth once daily, then take 1 tablet by mouth once dailydesogestrel-ethinyl estradiol (Apri) 0.15-30 MG-MCG tablet Indications: Encounter for BCP ( control pills) initial prescription Take 1 tablet by mouth Daily Take 1 tablet by mouth daily 84 tablet 3 06/19/2024 12/06/2024 Dmktsspyzldu11 hr desvenlafaxine succinate 50 mg extended release oral tablet (10 sources)Serotonin and Norepinephrine Reuptake InhibitorStart: 06-22-2023 End: 15-70-0958buqh 1 tablet by mouth once dailyPristiq 50 mg Tab-ER 50 mg = 1 tab(s), Oral, Daily, Refills(s) 0 Start Date: 06/22/23 Status: OrderedFLUoxetine 10 mg oral capsule (7 sources)Serotonin Reuptake InhibitorStart: 65-52-1451jzzh 1 capsule by mouth once dailyFLUoxetine (PROzac) 10 mg capsule TAKE 1 CAPSULE BY ORAL ROUTE PER DAILY TAKE 30 MG (20 MG + 10 MG)DAILY 0 11/06/2020 Activehyoscyamine sulfate 0.125 mg oral tablet (10 sources)Start: 07-05-2023 End: 95-64-5795zsgbklxdqtm (Levsin) 0.125 MG tablet Take 0.125 mg by mouth 07/05/2023 12/06/2024 Discontinuedibuprofen 600 mg oral tablet (2 sources)Nonsteroidal Anti-inflammatory DrugStart: 29-83-1069ekeh 1 tablet by mouth every six hoursibuprofen (MOTRIN) 600 mg tablet Take 1 tablet (600 mg total) by mouth every 6 (six) hours. 30 tablet 0 10/03/2023 ActivelamoTRIgine 100 mg oral tablet (14 sources)Mood Stabilizer, Anti-epileptic AgentStart: 05-16-2023 End: 43-07-5599seie 1 tablet by mouth in the morninglamoTRIgine (LaMICtal) 100 MG tablet Take 1 tablet by mouth in the morning and 1 tablet before bedtime. 05/16/2023 12/06/2024 DiscontinuedmedroxyPROGESTERone acetate 10 mg oral tablet (20 sources)ProgestinStart: 09-25-2024 End: 44-36-4504wgxm 1 tablet by mouth once dailymedroxyPROGESTERone (Provera) 10 MG tablet Indications: PCOS (polycystic ovarian syndrome) Take 1 tablet (10 mg) by mouth Daily for 14 days 14 tablet 09/25/2024 12/06/2024 DiscontinuedStart: 12-30-2023 End: 19-29-5489ealzocxWVJKXNVLFokp (Depo-Provera) 150 MG/ML suspension prefilled syringe injection syringe Indications: Encounter for initial prescription of injectable contraceptive INJECT 1 ML (150 MG) INTO THE SHOULDER, THIGH, OR BUTTOCKS EVERY 3 (THREE) MONTHS. 1 mL 3 12/30/2023 12/06/2024 DiscontinuedStart: 09-30-2023 End: 76-41-3613hbqxhucRZWLRCAISygq (Depo-Provera) injection 150 mg medroxyPROGESTERone (DEPO-PROVERA) 150 mg/mL injection Inject 1 mL (150 mg total) into the appropriate muscle every 3 (three) months. 0 ActivemetroNIDAZOLE 0.0075 mg/mg vaginal gel (18 sources)Nitroimidazole AntimicrobialStart: 06-63-6752dtdhgLPBCBOWX (Metrogel) 0.75 % vaginal gel Indications: Bacterial vaginosis Patient to use vaginally nightly for 5 nights, then twice weekly thereafter for 4 months. 140 g 3 03/25/2025 Activeondansetron 4 mg disintegrating oral tablet (19 sources)Serotonin-3 Receptor AntagonistStart: 01-18-2025 End: 10-14-5784uxut 1 tablet by mouth every six hours for nauseaondansetron ODT (Zofran-ODT) 4 MG disintegrating tablet Indications: Nausea and vomiting in ([facility]) Take 1 tablet (4 mg) by mouth every 6 (six) hours if needed for nausea or vomiting 30 tablet 2 01/18/2025 02/17/2025 ActiveStart: 06-01-2023 End: 79-84-2028gtvnmzwmikh ODT (Zofran-ODT) [address] ONE TABLET ON THE TONGUE AND ALLOW TODISSOLVE EVERY 6 HOURS NEEDED FOR 3 DAYS 06/02/2023 12/06/2024 Discontinuedpantoprazole 40 mg delayed release oral tablet (12 sources)Proton Pump InhibitorStart: 06-01-2023 End: 82-76-3945wxccbqxygbtb (ProtoNix) 40 MG EC tablet Take 40 mg by mouth 06/01/2023 12/06/2024 DiscontinuedPrenatal 28-0.8 MG tablet (20 sources)take 1 tablet by mouth once dailyPrenatal 28-0.8 MG tablet Take 1 tablet by mouth Daily ActivePrenatal Vit-Fe Fumarate-FA ( Plus) 27-1 MG tablet (9 sources) End: 26-93-7757Acxiwhix Vit-Fe Fumarate-FA ( Plus) 27-1 MG tablet 1 (one) time each day at the same time. 12/06/2024 DiscontinuedPrenatal Vit-Fe Fumarate-FA ( Plus) 27-1 MG tablet 1 (one) time each day at the same time. Active Problems Active Problems Problem ClassificationProblemDateDocumented DateEpisodic/ChronicAbdominal pain (12 sources)Unspecified abdominal pain; Translations: [Upper abdominal pain, unspecified]Onset: 16-30-7170LfusodnpVrspqcwy reactions (1 source)Allergy, unspecified, initial encounter; Translations: [ALLERGY UNSPECIFIED INITIAL ENCNTR]Onset: 15-69-4455SbumenanOwhqjgh disorders (2 sources)Generalized anxiety disorder; Translations: [Generalized anxiety disorder]74-96-8312JfpvecwYkuaok (3 sources)Asthma; Translations: [Unspecified asthma, uncomplicated]Onset: 087691-98-5937FkayozgLvvhzfavi-dgqyadn, conduct, and disruptive behavior disorders (20 sources)Attention deficit hyperactivity disorder; Translations: [Attention- deficit hyperactivity disorder, unspecified type]Onset: ChronicBiliary tract disease (5 sources)Biliary calculus; Translations: [Biliary colic]Onset: 09-27-2023 93-80-8370UefornubPonvmckh; convulsions (1 source)Other epilepsy, not intractable, without status epilepticus; Translations: [OTH EPIL NOT INTRACTABLE WITHOUT SE]Onset: 27-01-3245Ykienis Epilepsy; convulsions (7 sources)Unspecified convulsions; Translations: [UNSPECIFIED CONVULSIONS] Onset: 06-77-2818TfxursozWkqxoyyfax disorders (1 source)Gastro-esophageal reflux disease without esophagitis; Translations: [GERD WITHOUT ESOPHAGITIS]Onset: 23-21-6085ZyvikzbPugrhsbvycjie symptoms and ill-defined conditions (20 sources)Nocturnal enuresis; Translations: [Nocturnal enuresis]Onset: 363674-67-1799WnmdoroXrucugeg; including migraine (20 sources)Migraine; Translations: [Migraine, unspecified, not intractable, without status migrainosus]Onset: 955149-75-8801KvottooWyzxjsqcsdddh and screening for infectious disease (2 sources)Exposure to sexually transmissible disorder; Translations: [Contact with and (suspected) exposure to infections with a predominantly sexual mode of transmission]51-45-5998QpdftgogAurmygbgxfix diseases of female pelvic organs (2 sources)Bacterial vaginosis; Translations: [Acute vaginitis]03-20-2025 EpisodicMenstrual disorders (5 sources)Irregular menstruation, unspecified; Translations: [Missed period] Onset: 74-01-1536UgretinLytjrdpxatoyu mental health disorders (20 sources)Dissociative neurological symptom disorder; 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]Onset: 732173-67-7132VcjqagoJokzczj (2 sources)Mycosis; Translations: [Candidiasis, unspecified]93-63-6275Inxgudqe Other aftercare (1 source)Other prison (current) drug therapy; Translations: [OTH [facility] CURRENT DRUG THERAPY]Onset: 52-61-5723BfbakgzcSliip complications of (2 sources)Maternal care for other specified problems, unspecified trimester, not applicable or unspecified; Translations: [MAT CARE OTH FTL PROB UNS TRI UNS]Onset: 53-85-7881UnxldoodAdtib complications of (2 sources)Maternal care for problem, unspecified, unspecified trimester, not applicable or unspecified;Translations: [MAT CARE FTL PROB UNS UNS TRI UNS] Onset: 71-51-1522AxfwvoshSomcu complications of (4 sources)Maternal care for other known or suspected poor growth, third trimester, not applicable or unspecified; Translations: [MAT CARE OTH WA FTL GRTH 3RD TM UNS]Onset: 86-53-4582WscbjgviWsuhj complications of (1 source)Smoking (tobacco) complicating , third trimester; Translations: [SMOKING TOBACCO COMP CSCE5NG TRI]Onset: 97-37-7049GcmqnuklMdraz complications of (4 sources)Other specified related conditions, third trimester; Translations: [OTH SPEC PREG RELATEDCOND 3RD TRI]Onset: 66-42-4594GchjlpgkYvvkw complications of (4 sources)Uterine size-date discrepancy, unspecified trimester; Translations: [UTERINE SZ-DATE DISCREPANCY UNS TRI]Onset: 50-56-6442PwvqotakEldac complications of (2 sources) size does not accord with dates; Translations: [Uterine size- date discrepancy, unspecified trimester]57-29-2587LtujfzkaRgoao endocrine disorders (4 sources)Polycystic ovary syndrome; Translations: [Polycystic ovarian syndrome]38-93-7998OzxwwbyQhwjb female genital disorders (2 sources)Vaginal discharge; Translations: [Other specified noninflammatory disorders of vagina]77-44-3133JbbbnqzgDttsf lower respiratory disease (3 sources)Shortness of breath; Translations: [SHORTNESS OF BREATH]Onset: 50-84-9576AiryymldImkay screening for suspected conditions (not mental disorders or infectious disease) (6 sources)Patient encounter status; Translations: [Encounter for other specified screening]02-69-5374WduwzzmbMfbvxohs codes; unclassified (1 source)36 weeks gestation of ; Translations: [36 WEEKS GESTATION OF ]Onset: 62-07-8552NshcmrfsQvgaggon codes; unclassified (1 source)Weeks of gestation of not specified; Translations: [WEEKS GESTATION NOT SPEC]Onset: 56-18-4017OwlqctnjPbtwekri codes; unclassified (1 source)35 weeks gestation of ; Translations: [35 WEEKS GESTATION OF ]Onset: 08-16-6362HlzkimgyAxxxdprc codes; unclassified (1 source)34 weeks gestation of ; Translations: [34 WEEKS GESTATION OF ]Onset: 92-25-4565FhbjajaeRzhkvxwd codes; unclassified (1 source)Acquired absence of other specified parts of digestive tract; Translations: [Acquired absence of other specified parts of digestive tract] Onset: 63-81-8677SdbpufrvIfxwdzhr codes; unclassified (1 source)Pain, unspecified; Translations: [Pain, unspecified]Onset: 08-23-2023 EpisodicResidual codes; unclassified (2 sources)Gestation period, 12 weeks; Translations: [12 weeks gestation of ]30-82-9761NjmtwaeyVwlocvke codes; unclassified (4 sources)Personal history of other specified conditions; Translations: [Personal history of other specified diseases]97-74-1753RqxxkvxlAitvvyse codes; unclassified (2 sources)Gestation period, 16 weeks; Translations: [16 weeks gestation of ]10-93-0619GjupwijeZkslsozx codes; unclassified (2 sources)Gestation period, 20 weeks; Translations: [20 weeks gestation of ]57-11-9528XzybngukAigtutml codes; unclassified (2 sources)Gestation period, 24 weeks; Translations: [24 weeks gestation of ]76-47-8584NxktkmulMjgfqxoo codes; unclassified (2 sources)Gestation period, 26 weeks; Translations: [26 weeks gestation of ]74-58-2826SkciubwnUuewxjtm codes; unclassified (2 sources)Gestation period, 28 weeks; Translations: [28 weeks gestation of ]86-49-4105YxvnqrdcWzjgudzk codes; unclassified (2 sources)Gestation period, 29 weeks; Translations: [29 weeks gestation of ]21-70-5015XyzlfunvWrczjxwt codes; unclassified (2 sources)Gestation period, 31 weeks; Translations: [31 weeks gestation of ]05-05-4443GjrvxhxsBkiaehuo codes; unclassified (2 sources)Gestation period, 33 weeks; Translations: [33 weeks gestation of ]64-45-2923FbmcpzakPrgwehuj codes; unclassified (2 sources)Gestation period, 35 weeks; Translations: [35 weeks gestation of ]55-48-8851YytjzemcBnuljhipvow; intervertebral disc disorders; other back problems (1 source)Degeneration of cervical intervertebral jynq13-62-2322Ugaxvso Substance-related disorders (1 source)Nicotine dependence, cigarettes, uncomplicated; Translations: [NICOTINE DEPEND CIGARETTES UNCOMP]Onset: 67-24-0461PjgiveaFlumzcmdayjp (3 sources)CONTACT W/AND (SUSP) EXPOS COVID-19; Translations: [CONTACT W/AND (SUSP) EXPOS COVID-19]Onset: 71-61-5643Wkvgcqimztzd (1 source)Post-opOnset: 67-79-7826Xhldmdcdnfrm (1 source)CholelithiasisOnset: 46-49-6182Zcylaog tract infections (3 sources)Urinary tract infection, site not specified; Translations: [Urinary tract infectious disease]Onset: 495342-05-6450Cgmsvuqx Past or Other Problems Problem ClassificationProblemDateDocumented DateEpisodic/Chronic Administrative/social admission (20 sources)Deterioration in school performance; Translations: [Other problems related to education and literacy]Onset: 770484-08-5844YnhjtjdmDhkpbaimao during ; abruptio placenta; placenta previa (5 sources)Hemorrhage in early , unspecified; Translations: [HEMORRHAGE EARLY UNS]Onset: 32-75-0720XipygdmgPmcsdk and vomiting (1 source)Nausea with vomiting, unspecified; Translations: [NAUSEA WITH VOMITING UNSPECIFIED]Onset: 66-67-7965AasyneehCoiiq complications of (4 sources)Unspecified infection of urinary tract in , unspecified trimester; Translations: [UNS INF URINARY TRACT PREG UNS TRI]Onset: 08-25-2022 EpisodicOther complications of (1 source)Smoking (tobacco) complicating , first trimester; Translations: [SMOKING TOBACCO COMP UKWO0YM TRI]Onset: 38-19-1547JzxifscdMerfm complications of (1 source)Unspecified infection of urinary tract in , first trimester; Translations: [UNS INF URINARY TRACT PREG 1ST TRI]Onset: 34-74-3995SrbomyifPiisr complications of (1 source)Other specified related conditions, first trimester; Translations: [OTH SPEC PREG RELATEDCOND 1ST TRI]Onset: 57-59-4214VrpguoqoOslwr complications of (4 sources)Other specified related conditions, unspecified trimester; Translations: [OTH SPEC PREG RELATED COND UNS TRI]Onset: 31-84-5946TblgdrgkCdcqm complications of (1 source)Smoking (tobacco) complicating , unspecified trimester; Translations: [SMOKING TOBACCO COMP PREG UNS TRI]Onset: 24-72-3975ZwsccuytHqnfi and delivery including normal (20 sources)Encounter for supervision of normal , unspecified, third trimester; Translations: [Encounter for supervision of normal first , first trimester]Onset: 50-91-5167EalpaufeLensz upper respiratory infections (1 source)Acute sinusitis, unspecified; Translations: [ACUTE SINUSITIS UNSPECIFIED]Onset: 12-08-2455ObzwpnixAelgnbho codes; unclassified (1 source)8 weeks gestation of ; Translations: [8 WEEKS GESTATION OF ]Onset: 94-46-1877XogncmfvNhdgertc codes; unclassified (1 source)Less than 8 weeks gestation of ; Translations: [< 8 WEEKS GESTATION ]Onset: 38-93-6631WwhzydouEyivvox (1 source)Syncope and collapse; Translations: [SYNCOPE AND COLLAPSE]Onset: 72-67-1185EiyfwzikCxpswggptuxl (1 source)CONTACT W/AND (SUSP) EXPOS COVID-19; Translations: [CONTACT W/AND (SUSP) EXPOS COVID-19]Onset: 06-25-2022 Results Test NameValueInterpretationReference RangeFacilitySTREP GP B CULTURE+RFLXon 81-97-7502VOZXH GP B CULTURE+RFLX Strep Gp B Culture+Rflx [...] GP B CULTURE+RFLXPerformed at: CB - [facility] [place]NOMN HealthcareSTREP GP B CULTURE+[id number] [place], [place] [id number] HealthcareSTREP GP B CULTURE+RFLXLab Director: Raimundo Cardenas PhD, Phone: [phone] HealthcareCLINISYNCNOK [facility] [place] HealthcareUrinalysis macro (dipstick) panel (U)on 46-99-2804Wsqquuuzs, UANegativeNegative - 4(70) +++ mg/dLNOMS HealthcareBlood, UANegativeNegative [...] HealthcareNOMS Healthcare Urinalysis macro (dipstick) panel (U)on 36-16-3652Khtsyosme, UANegativeNegative - 4(70) +++ mg/dLNOMS HealthcareBlood, UANegativeNegative - 50 Blayne/mcLNOMS HealthcareClarity, UAClearNOMS HealthcareColor, UAYellowNOMS HealthcareGlucose, UANegativeNegative - 2000(110) ++++ mg/dLNOMS HealthcareInterpretation and review of laboratory resultsAbnormalNOMS HealthcareKetones, UAPositiveNegative - 160(16) ++++ mg/dLNOMS HealthcareLeukocytes, UA3+Negative - 500+++ Jo/mcLNOMN HealthcareNitrite, UANegativeNegative - PositiveNOMS HealthcarepH, UA6.05 - 9 NOMS HealthcareProtein, UANegativeNegative - 2000(20) ++++ mg/dLNOMS Healthcare Spec Grav, UA1.0151 - 1.03NOMS HealthcareUrobilinogen, UA1.00.2 - 12 mg/dLNOMS HealthcareNOMS HealthcareUrinalysis macro (dipstick) panel (U)on 05-13-2025 Bilirubin, UANegativeNegative - 4(70) +++ mg/dLNOMN HealthcareBlood, UANegative Negative - 50 Blayne/mcLNOMN HealthcareClarity, UAClearNOMN HealthcareColor, UA YellowNOMN HealthcareGlucose, UANegativeNegative - 2000(110) ++++ mg/dLNOMN HealthcareInterpretation and review of laboratory resultsAbnormalChristian Hospital Ketones, UANegativeNegative - 160(16) ++++ mg/dLSTEWARD [facility] HealthcareLeukocytes, UA1+ Negative - 500+++ Jo/mcLNOMN HealthcareNitrite, UANegativeNegative - Positive NOMS HealthcarepH, UA65 - 9NOMS HealthcareProtein, UATraceNegative - 2000(20) ++++ mg/dLNOMN HealthcareSpec Grav, UA1.031 - 1.03NOMN HealthcareUrobilinogen, UA2.00.2 - 12 mg/dLNOMN HealthcareNOMS HealthcareALL CBC WITH AUTO DIFFon 16-08-9782CUCLGXZWR ABSOLUTE WYLW8OZDQChristian HospitalBasophils/100 WBC (Bld)0.3 %0.2 - 2.0 %Christian HospitalEosinophils/100 WBC (Bld)0.9 %0.9 - 7.0 %[facility] Erythrocyte distribution width (RBC) [Ratio]11.9 %11.0 - 15.0 %[facility] Hematocrit (Bld) [Volume fraction]34.5 %Low36.0 - 48.0 %[facility] Hemoglobin (Bld) [Mass/Vol]12.6 g/dL12.0 - 16.0 g/dLChristian HospitalIMMATURE GRANULOCYTES ABS AUTO0.17HighChristian HospitalImmature granulocytes/100 WBC (Bld) 1.8 %High0.0 - 0.5 %Christian HospitalInterpretation and review of laboratory resultsAbnormGeisinger-Lewistown HospitalLYMPHOCYTES ABSOLUTE AUTO1.7[facility] Lymphocytes/100 WBC (Bld)17.7 %Low20.5 - 60.0 %[facility]H (RBC) [Entitic mass]32 pg26.7 - 34.0 pgMercy hospital springfieldHC (RBC) [Mass/Vol]36.5 g/mVPlzn01.9 - 35.2 g/dLMercy hospital springfieldV (RBC) [Entitic vol]87.6 fL81.0 - 99.0 fLChristian HospitalMONOCYTES ABSOLUTE AUTO0.9HighChristian HospitalMonocytes/100 WBC (Bld)9 %1.7 - 12.0 %Christian HospitalNEUTROPHILS ABSOLUTE AUTO6.8HighChristian Hospital Neutrophils/100 WBC (Bld)70.3 %43.0 - 75.0 %Christian HospitalPlatelet mean volume (Bld) [Entitic vol]11.3 fL9.5 - 13.5 fLChristian HospitalTB EO #0.1NOMS Healthcare TBH [id number]-Jewish HospitalTB RBC3.94LowNOBarnes-Jewish HospitalTBH WBC9.7[facility] CLINISYNCChristian HospitalUrinalysis macro (dipstick) panel (U)on 04-29-2025 Bilirubin, UANegativeNegative - 4(70) +++ mg/dLSTEWARD HEALTH [facility]ARE SYSTEM HealthcareBlood, UANegative Negative - 50 Blayne/mcLSTEWARD HEALTH CARE SYSTEM HealthcareClarity, UAClearNOMN HealthcareColor, UA YellowNOMS HealthcareGlucose, UANegativeNegative - 1999(110) ++++ mg/dLSTEWARD HEALTH [facility]ARE [facility] HealthcareInterpretation and review of laboratory resultsNoLehigh Valley Hospital - [facility]len[facility] Ketones, UANegativeNegative - 160(16) ++++ mg/dLSTEWARD HEALTH [facility]ARE SYSTEM HealthcareLeukocytes, UA NegativeNegative - 500+++ Jo/mcLNOMN HealthcareNitrite, UANegativeNegative - PositiveNOMS HealthcarepH, UA65 - 9NOMS HealthcareProtein, UA1+Negative - 2000(20) ++++ mg/dLSTEWARD HEALTH [facility]ARE SYSTEM HealthcareSpec Grav, UA1.021 - 1.03NOBarnes-Jewish Hospital Urobilinogen, UA1.00.2 - 12 mg/dLNOBarnes-Jewish HospitalNOMN HealthcareUrinalysis macro (dipstick) panel (U)on 04-43-1975Crphvebnu, UANegativeNegative - 4(70) +++ mg/dL N[facility]S HealthcareBlood, UANegativeNegative - 50 Blayne/mcLNOMS HealthcareClarity, UA ClearNOMS HealthcareColor, UAYellowNOMS HealthcareGlucose, UANegativeNegative - 1999(110) ++++ mg/dLNOMS HealthcareInterpretation and review of laboratory resultsNormalNOMS HealthcareKetones, UANegativeNegative - 160(16) ++++ mg/dLNOMS HealthcareLeukocytes, UANegativeNegative - 500+++ Jo/mcLNOMN HealthcareNitrite, UANegativeNegative - PositiveNOMS HealthcarepH, UA65 - 9NOMS HealthcareProtein, UANegativeNegative - 1999(20) ++++ mg/dLNOMS HealthcareSpec Grav, UA1.021 - 1.03 NOMS HealthcareUrobilinogen, UA0.20.2 - 12 mg/dLNOBarnes-Jewish HospitalNOMN Healthcare Urinalysis macro (dipstick) panel (U)on 46-79-4231Lyhyaqiiq, UANegativeNegative - 4(70) +++ mg/dLNOMS HealthcareBlood, UANegativeNegative - 50 Blayne/mcLNOMS HealthcareClarity, UAClearNOMS HealthcareColor, UAYellowNOMS HealthcareGlucose, UANegativeNegative - 1999(110) ++++ mg/dLNOMS HealthcareInterpretation and review of laboratory resultsAbnormalNOMN HealthcareKetones, UANegativeNegative - 160(16) ++++ mg/dLNOMS HealthcareLeukocytes, UAPositiveNegative - 500+++ Jo/mcL NOMS HealthcareComment on above:2+Nitrite, UANegativeNegative - PositiveNOMS HealthcarepH, UA65 - 9NOMS HealthcareProtein, UANegativeNegative - 1999(20) ++++ mg/dLNOMS HealthcareSpec Grav, UA1.0251 - 1.03NOMN HealthcareUrobilinogen, UA0.2 0.2 - 12 mg/dLNOMS HealthcareNOMN HealthcareUS OB 14+ WEEKS ANATOMY SCANon 96-24-7291PB OB 14+ WEEKS ANATOMY SCANEXAM: US OB [...] II, MD, PHD at 26-Feb-2025 07:25:53 AM [facility] TeleradiologyNormalNot AvailableComment on above:Order Comment: US OB ANATOMY SINGLE W US OB CERVICAL LENGTH Estimated Date of Delivery: 07/10/25 Gestational Age as of 01/29/2025: 69w2zCatgpcrotm macro (dipstick) panel (U)on 87-08-5179Iwuygpoes, UANegativeNegative - 4(70) +++ mg/dLNOMS HealthcareBlood, UANegativeNegative - 50 Blayne/mcLNOMS HealthcareClarity, UAClearNOMS Healthcare Color, UAYellowNOMS HealthcareGlucose, UANegativeNegative - 2000(110) ++++ mg/dL [facility] HealthcareInterpretation and review of laboratory resultsNormalNOMN HealthcareKetones, UAPositiveNegative - 160(16) ++++ mg/dLNOMS Healthcare Leukocytes, UANegativeNegative - 500+++ Jo/mcLNOMS HealthcareNitrite, UA NegativeNegative - PositiveNOMS HealthcarepH, UA6.55 - 9NOMS HealthcareProtein, UANegativeNegative - 2000(20) ++++ mg/dLNOMS HealthcareSpec Grav, UA1.2051 - 1.03NOMS HealthcareUrobilinogen, UA1.00.2 - 12 mg/dLNOMS HealthcareNOMS HealthcareIGP,APTIMA HPV,AGE GDLNon 11-41-2000CYS GDLN ACOG TESTINGNote.[facility] HealthcareComment on above:TESTS RESULT FLAG UNITS REF RANGE LAB Clinician Provided Cytology Information Source.............Cervix No. of containers..01 ThinPrep Vial Age Algo ACOG Audra... FLAG LEGEND: L-Low Normal,H-High Normal,LL-Alert Low,HH-Alert High <-Panic Low,>-Panic High,A-Abnormal,AA-Critical Abnormal Performed at: 01 =G [facility] [address] [place] [address] Meseret Eden MD, IGP, RFX APTIMA HPV ASCUNote.NOMS HealthcareComment on above:TESTS RESULT FLAG UNITS REF RANGE LAB DIAGNOSIS: 02 NEGATIVE FOR INTRAEPITHELIAL LESION OR MALIGNANCY. FUNGAL ORGANISMS MORPHOLOGICALLY CONSISTENT WITH POLY SPECIES ARE PRESENT. THIS SPECIMEN WAS RESCREENED PART OF OUR EVENTS ADMINISTRATIVE ASSISTANT PROGRAM. Specimen adequacy: 02 Satisfactory for evaluation. No endocervical component is identified. Performed by: 02 Barbie Ceja, Business Travel Consultant (ASCP) QC reviewed by: 02 hRea Hoffmann, Business Travel Consultant (ASCP) . 02 Note: Note 02 The [...] <-Panic Low,>-Panic High,A-Abnormal,AA-Critical Abnormal Performed at: [address] [address] Meseret Eden MD, Performed at: = - [facility] [id number] Mall Plant Caretaker: Meseret Eden MD, Phone: [phone] Performed at: [facility] [address] [id number] Mall Plant Caretaker: Meseret Eden MD, Phone: [phone] SPATULA-ALONE CERVIX CLINISYNCNOMS HealthcareRECURRENT VAGINITIS (HTRX)on 47-06-9654GWZCDLRZL VAGINAE 26.856AbnormalNOMS HealthcareATOPOBIUM VAGINAEDetectedAbnormalNOMS Healthcare BVAB 2,3 (BACTERIAL VAGINOSIS ASSOCIATED BACTERIA 2, 3); MOBILUNCUS SPP25.681 AbnormalNOMS HealthcareBVAB 2,3 (BACTERIAL VAGINOSIS ASSOCIATED BACTERIA 2, 3); MOBILUNCUS SPPDetectedAbnormalNOMS HealthcareCANDIDA ALBICANS, PARAPSILOSIS, AZYXPGHLSJ2SKHH HealthcareCANDIDA ALBICANS, PARAPSILOSIS, TROPICALISNot detected NOMS HealthcareCANDIDA HTRSKVOV1ULYU HealthcareCANDIDA GLABRATANot detectedNOMS HealthcareCANDIDA VWPBNB5ONVE HealthcareCANDIDA KRUSEINot detectedNOMS HealthcareCHLAMYDIA BQZYZXTMAVR5WCRW HealthcareCHLAMYDIA TRACHOMATISNot detected NOMS HealthcareERMB, C; MEFA18.156AbnormalNOMS HealthcareERMB, C; MEFADetected AbnormalNOMS HealthcareGARDNERELLA HLIGTUAML94.184AbnormalNOMS Healthcare GARDNERELLA VAGINALISDetectedAbnormalNOMS HealthcareInterpretation and review of laboratory resultsAbnormalNOMS HealthcareMEGASPHAERA (TYPES 1, 2)0NOMS HealthcareMEGASPHAERA (TYPES 1, 2)Not detectedNOMS HealthcareMYCOPLASMA PHJWJUZIBE8MAAC HealthcareMYCOPLASMA GENITALIUMNot detectedNOMS Healthcare NEISSERIA EVMJMRHMPEO1HWFN HealthcareNEISSERIA GONORRHOEAENot detectedNOMS HealthcareTET B, TET M19.057AbnormalNOMS HealthcareTET B, TET MDetectedAbnormal NOMS HealthcareTRICHOMONAS XEJVBZGDS7QKIZ HealthcareTRICHOMONAS VAGINALISNot detectedNOMS HealthcareNOMS HealthcareBOX TESTon 23-30-1922IZT TEST SENT OUT UNITYNOMN NixnpxrnfpOCF2OUHGYYZVY TzwrxpfwtfRRN634/02/2025NOMN HealthcareUNITY BOX CLINISYNCNOMS HealthcareHCG ( test) Ql (U)on 17-16-3041Czonrziiemucwv and review of laboratory resultsAbnormalNOMS HealthcarePreg Test, UrPositive NegativeNOMS [facility] Community HospitalNOMS HealthcareUS OB TRANSVAGINALon 21-47-1932LV OB TRANSVAGINALEXAM: US OB TRANSVAGINAL HISTORY: Dating. [...] II, MD, PHD at 09-Dec-2024 08:55:08 PM [facility] TeleradiologyNormalNot AvailableComment on above:Order Comment: US OB TRANSVAGINAL No LMP recorded.Urinalysis macro (dipstick) panel (U)on 12-14-1845Xoyuabbqa, UA NegativeNegative - 4(70) +++ mg/dLNOMS HealthcareBlood, UAPositiveNegative - 50 Blayne/mcLNOMS HealthcareComment on above:trace-intactClarity, UAClearNOMS HealthcareColor, UAYellowNOMS HealthcareGlucose, UANegativeNegative - 2000(110) ++++ mg/dLNOMN HealthcareInterpretation and review of laboratory resultsAbnormal NOMS HealthcareKetones, UANegativeNegative - 160(16) ++++ mg/dLNOMN Healthcare Leukocytes, UATraceNegative - 500+++ Jo/mcLNOMN HealthcareNitrite, UANegative Negative - PositiveNOMS HealthcarepH, UA65 - 9NOMS HealthcareProtein, UANegative Negative - 2000(20) ++++ mg/dLNOMN HealthcareSpec Grav, UA1.021 - 1.03NOMN HealthcareUrobilinogen, UA0.20.2 - 12 mg/dLNOMN HealthcareNOMN HealthcareTBH PREG QUANT HCGon 17-16-0336PSE DXDYVBDYPQAV683gCR/mLNOMS HealthcareComment on above:5-50 0.2-1 WEEK 50-500 1-2 WEEKS 100-5,000 2-3 WEEKS 500-10,000 3-4 WEEKS 1,000-50,000 4-5 WEEKS 10,000-100,000 5-6 WEEKS 15,000-200,000 6-8 WEEKS 10,000-100,000 2-3 MONTHS CLINISYNCNOMN HealthcareALL CBC WITH AUTO DIFFon 96-60-1774WSEDNGSLW ABSOLUTE AUTO0.1NOMS HealthcareBasophils/100 WBC (Bld)0.7 %0.2 - 2.0 %[facility] Eosinophils/100 WBC (Bld)4.9 %0.9 - 7.0 %NOMS HealthcareErythrocyte distribution width (RBC) [Ratio]11.8 %11.0 - 15.0 %NOMS HealthcareHematocrit (Bld) [Volume fraction]44.7 %36.0 - 48.0 %NOMS HealthcareHemoglobin (Bld) [Mass/Vol]15.7 g/dL 12.0 - 16.0 g/dLNOBarnes-Jewish HospitalIMMATURE GRANULOCYTES ABS AUTO0.02NOMS Healthcare Immature granulocytes/100 WBC (Bld)0.3 %0.0 - 0.5 %NOMPike County Memorial HospitalLYMPHOCYTES ABSOLUTE AUTO3.1NOMS HealthcareLymphocytes/100 WBC (Bld)42 %20.5 - 60.0 %Christian HospitalMCH (RBC) [Entitic mass]29.5 pg26.7 - 34.0 pgNONortheast Missouri Rural Health NetworkHC (RBC) [Mass/Vol]35.1 g/dL29.9 - 35.2 g/dLNONortheast Missouri Rural Health NetworkV (RBC) [Entitic vol]84 fL 81.0 - 99.0 fLNOBarnes-Jewish HospitalMONOCYTES ABSOLUTE AUTO0.5NOBarnes-Jewish Hospital Monocytes/100 WBC (Bld)7.3 %1.7 - 12.0 %NOMPike County Memorial HospitalNEUTROPHILS ABSOLUTE AUTO 3.3NOMS HealthcareNeutrophils/100 WBC (Bld)44.8 %43.0 - 75.0 %[facility] Platelet mean volume (Bld) [Entitic vol]11.7 fL9.5 - 13.5 fLNOBarnes-Jewish HospitalTBH EO #0.4NOMS HealthcareTBH SNM725DZVX [facility] Community HospitalTB RBC5.32NOMS [facility] Community HospitalTB WBC 7.3NOBarnes-Jewish HospitalCLINISYNCNOMS HealthcareHCG ( test) Ql (U)on 88-20-9101Zxag HCG ( test) Ql (U)NegativeNormalNEGProMedica Providence Mission HospitalComment on above:Performed By: #### 2106-3 #### [facility] ([id number]) [address] [place] [address], FIRST FLOOR [place], [place] [address]Ihubyoyg Pathologyon 36-58-5648Osjrdsht PathologyNormal [facility] Grant Medical CenterComment on above:Result Comment: [facility] [address] [place] [address] Surgical Pathology Consultation Patient Name:KEMI PIPER:2005 (Age: 18)Gender:FTaken:10/03/2023eported:10/06/2023hysician(s):Alo Morgan MD ([phone])Copy To: Rec. #:[id number]: #[id number] Final Pathologic Diagnosis Gallbladder, cholecystectomy: - Chronic cholecystitis and cholesterolosis. - Benign reactive lymph node. Report Electronically Signed Out eak/10/06/2023Serena Quintanilla MD [facility] [employer], [address] [place] [id number], License number: [id number]. Clinical History Biliary colic. Gross Description Received [...] duct margin, bisected lymph node and a compliance representative dealer section of the gallbladder neck aresubmitted in cassette A with additional sections from the gallbladder are submitted in cassette B (to include polypoid like projection). (2, ss, Z84-0307, A???B, m2) ChaitanyaG [facility]/10/04/2023EAK Specimen(s) Received Gallbladder Fee Codes(s): 1; 57655FZHVS METABOLIC PANLon 13-08-5248Nfivf gap [Moles/Vol]7 mmol/LNormal5-15 [facility] Medical CenterComment on above:Performed By: #### CBCA, BMP, LIVR #### [facility] ([id number]) [address] [facility], [address] [place], [place] [address]Eeocdjk [Mass/Vol]9.0 mg/dLNormal8.5-10.5PMain Campus Medical CenterComment on above:Performed By: #### DEANGELO OLIVERA, LIVR #### [facility] ([id number]) [address], [address] [place], [place] [address]Sytsvszw [Moles/Vol]109 mmol/WKdsjgi71-481MkkVlunmxValley Regional Medical CenterComment on above:Performed By: #### DEANGELO OLIVERA, LIVR #### [facility] ([id number]) [address], [address] [place], [place] [address]FX5 [Moles/Vol]27 mmol/HBydtrd44-68GhmQemjpzMain Campus Medical Center Comment on above:Performed By: #### DEANGELO OLIVERA, LIVR #### [facility] ([id number]) [address], [address] [place], [place] [address]Qvkumphfxn [Mass/Vol]0.98 mg/dLNormal0.40-1.00ProValley Regional Medical CenterComment on above:Result Comment: METHOD TRACEABLE TO IDMS STANDARD Performed By: #### DEANGELO OLIVERA, LIVR #### [facility] ([id number]) [address] [address] [place], [place] [address]DZW/1.73 sq M.predicted among non-blacks MDRD (S/P/Bld) [Vol rate/Area]85 mL/min/{1.73_m2}Normal>59ProValley Regional Medical CenterComment on above:Result Comment: Reported eGFR is based on the CKD-EPI 1 equation that does not use a race coefficient.Performed By: #### DEANGELO OLIVERA, LIVR #### [facility] ([id number]) [address] [place], [place] [address]Idsblhu [Mass/Vol]82 mg/rPMoxqpp32-11MafQaybgpOhioHealth Grant Medical Center Comment on above:Performed By: #### DEANGELO OLIVERA, LIVR #### [facility] ([id number]) [address], [address] [place], [place] [address]Tfgmgvylf [Moles/Vol]4.0 mmol/LNormal3.5-5.0Ohio[facility] Grant Medical CenterComment on above:Performed By: #### DEANGELO OLIVERA, LIVR #### [facility] ([id number]) [address], [address] [place], [place] [address]Pqvgrm [Moles/Vol]143 mmol/XCtfmmz346-998RyoGuxwac Fremont HospitalComment on above:Performed By: #### CBCAiram BMP, LIVR #### [facility] ([id number]) [address], [address] [place], [place] [address]Dicz nitrogen [Mass/Vol]7 mg/dLNormal5-23Ohio[facility] Grant Medical CenterComment on above:Performed By: #### DEANGELO OLIVERA, LIVR #### [facility] ([id number]) [address], [address] [place] [address]Dlcmr Metabolic Panelon 22-51-7596Vfemz gap [Moles/Vol]7 mmol/L5 - 15 mmol/[facility] Hospitalica Health SystemCalcium [Mass/Vol]9.0 mg/dL8.5 - 10.5 mg/dL [facility] SystemChloride [Moles/Vol]109 mmol/L98 - 109 mmol/[facility] SystemCO2 [Moles/Vol]27 mmol/L22 - 32 mmol/[facility] Regional HospitaloMedunited states marine hospital [facility] Creatinine [Mass/Vol]0.98 mg/dL0.40 - 1.00 mg/dLSumma Health Barberton CampusComment on above:METHOD TRACEABLE TO IDMN STANDARDeGFR (CKD-EPI)non-race tawifcibj53- [facility] HospitalComment on above: Reported eGFR is based on the CKD-EPI 2020 equation that does not use a race coefficient. Glucose [Mass/Vol]82 mg/dL65 - 99 mg/dLSumma Health Barberton CampusPotassium [Moles/Vol]4.0 mmol/L3.5 - 5.0 mmol/LProMedica Health SystemSodium [Moles/Vol] 143 mmol/L134 - 146 mmol/[facility] Regional HospitaloMedica Health SystemUrea nitrogen [Mass/Vol]7 mg/dL 5 - 23 mg/dLProPomerene HospitalCBC AND AUTO DIFFon 40-12-8490IICKYVRM BASOPHIL0.0 X10E9/LNormal0.0-0.2PMain Campus Medical CenterComment on above: Performed By: #### CBCA, BMP, LIVR #### [facility] ([id number]) [address], [facility] [address] [place], [place] [address]MIUJWDKX NEUTROPHIL2.8 X10E9/LNormal1.5-6.6ProValley Regional Medical CenterComment on above:Performed By: #### CBCA BMP, LIVR #### [facility] ([id number]) [address], [facility] [address] [place], [place] [address]Axiffspzy/100 WBC (Bld)0.6 %NormalOhioHealth Grant Medical Center Comment on above:Performed By: #### CBCA, BMP, LIVR #### [facility] ([id number]) [address] [address] [place], [place] [address]Lnvckqrhwhv (Bld) [#/Vol]0.2 10*3/uLNormal0.0-0.4OhioHealth Grant Medical CenterComment on above:Performed By: #### CBCA, BMP, LIVR #### [facility] ([id number]) [address] [address] [place], [place] [address]Vrddklbqymk/100 WBC (Bld)2.8 %NormalOhioHealth Grant Medical Center Comment on above:Performed By: #### CBCA, BMP, LIVR #### [facility] ([id number]) [address] [address] [place], [place] [address]Lwwguewajye distribution width (RBC) [Ratio]12.2 %Normal 11.5-15.0Ohio[facility] Grant Medical CenterComment on above:Performed By: #### CBCA, BMP, LIVR #### [facility] ([id number]) [address], [address] [place] [address]Bvwdhgaies (Bld) [Volume fraction]39.7 %Epjyjg62-90VrvGlictqValley Regional Medical CenterComment on above:Performed By: #### CBCA, BMP, LIVR #### [facility] ([id number]) [address], [address] [place] [address]Emqemurrdx (Bld) [Mass/Vol]13.6 g/wMKnaece85.7-15.5PMain Campus Medical CenterComment on above:Performed By: #### CBCA, BMP, LIVR #### [facility] ([id number]) [address], [address] [place] [address]Mqolrljiohe (Bld) [#/Vol]2.2 10*3/uLNormal1.0-3.5PMain Campus Medical CenterComment on above:Performed By: #### CBCA, BMP, LIVR #### [facility] ([id number]) [address], [address] [place], [place] [address]Dhqierjoszl/100 WBC (Bld)38.4 %NormalOhioHealth Grant Medical Center Comment on above:Performed By: #### CBCA, BMP, LIVR #### [facility] ([id number]) [address], [address] [place], [place] [address]WZV (RBC) [Entitic mass]29.6 coEvaxxy35-29BseBygbeoValley Regional Medical CenterComment on above:Performed By: #### CBCA, BMP, LIVR #### [facility] ([id number]) [address] [address] [place], [place] [address]FOLS (RBC) [Mass/Vol]34.3 g/oPBiqayc33-14MyiUrdzxyValley Regional Medical CenterComment on above:Performed By: #### CBCA, BMP, LIVR #### [facility] ([id number]) [address], [address] [place], [place] [address]RQG (RBC) [Entitic vol]87 hSPhyymp67-896RzdIgprps Fremont HospitalComment on above:Performed By: #### CBCA, BMP, LIVR #### [facility] ([id number]) [address], [address] [place], [place] [address]Hrdynmjsd (Bld) [#/Vol]0.5 10*3/uLNormal0-0.9OhioHealth Grant Medical CenterComment on above:Performed By: #### CBCA, BMP, LIVR #### [facility] ([id number]) [address], [address] [place], [place] [address]Igklsmiyn/100 WBC (Bld)9.2 %NormalOhioHealth Grant Medical Center Comment on above:Performed By: #### CBCA, BMP, LIVR #### [facility] ([id number]) [address], [address] [place] [address]Wrmimlezwra/100 WBC (Bld)49.0 %NormalOhioHealth Grant Medical Center Comment on above:Performed By: #### CBCA, BMP, LIVR #### [facility] ([id number]) [address], [address] [place] [address]Hmsrcvsi mean volume (Bld) [Entitic vol]10.8 fLNormal7-12 ProMKaiser Foundation HospitalComment on above:Performed By: #### CBCA, BMP, LIVR #### [facility] ([id number]) [address], [address] [place] [address]Btujbrzlz (Bld) [#/Vol]212 10*3/fVShgpja641-030DaiArcyfz Fremont HospitalComment on above:Performed By: #### CBCA, BMP, LIVR #### [facility] ([id number]) [address], [address] [place] [address]ZUS COUNT4.60 X10E12/LNormal3.80-5.20[facility] Comment on above:Performed By: #### CBCA, BMP, LIVR #### [facility] ([id number]) [address], [address] [place], [place] [address]KQQ (Bld) [#/Vol]5.7 10*3/uLNormal4.0-11.0OhioHealth Grant Medical CenterComment on above:Performed By: #### CBCA, BMP, LIVR #### [facility] ([id number]) [address], [address] [place], [place] [address]YMT auto differentialon 88-80-8696Lcnamxxlp (Bld) [#/Vol]0.0 10*3/uLSumma Health Barberton CampusBasophils/100 WBC (Bld)0.6 %[facility] CampusEosinophils (Bld) [#/Vol]0.2 10*3/uLSumma Health Barberton CampusEosinophils/100 WBC (Bld)2.8 %[facility] CampusErythrocyte distribution width (RBC) [Ratio]12.2 %11.5 - 15.0 %[facility] CampusHematocrit (Bld) [Volume fraction]39.7 %35 - 47 %[facility] CampusHemoglobin (Bld) [Mass/Vol]13.6 g/dL11.7 - 15.5 g/dLSumma Health Barberton CampusLymphocytes (Bld) [#/Vol]2.2 10*3/uL [facility] CampusLymphocytes/100 WBC (Bld)38.4 %[facility] HospitalH (RBC) [Entitic mass]29.6 pg27 - 34 [facility] SystemMCHC (RBC) [Mass/Vol]34.3 g/dL32 - 36 g/dLSumma Health Barberton CampusMCV (RBC) [Entitic vol]87 fL80 - 100 [facility] HospitalMonocytes (Bld) [#/Vol]0.5 10*3/uLSumma Health Barberton CampusMonocytes/100 WBC (Bld)9.2 %[facility] Hospital SystemNeutrophils (Bld) [#/Vol]2.8 10*3/[facility] Health SystemNeutrophils/100 WBC (Bld)49.0 % [facility] SystemPlatelet mean volume (Bld) [Entitic vol]10.8 fL7 - 12 fL [facility] SystemPlatelets (Bld) [#/Vol]212 10*3/[facility] RBC (Bld) [#/Vol]4.60 10*6/[facility] SystemWBC corrected for nucl RBC Auto (Bld) [#/Vol]5.7U[facility] SystemECG 12 leadon 02-35-9949EGROZWVCLLGESEEnpQeeimv Health SystemLIVER PANELon 88-95-0827Vyxbknl [Mass/Vol]4.4 g/dLNormal3.2-5.3PMain Campus Medical CenterComment on above: Performed By: #### CBCA, BMP, LIVR #### [facility] ([id number]) [address], [address] [place], [place] [address]AHX [Catalytic activity/Vol]65 U/BJboisn29-887SryXkxokoOhioHealth Grant Medical CenterComment on above:Performed By: #### CBCA, BMP, LIVR #### [facility] ([id number]) [address], [address] [place], [place] [address]KIC [Catalytic activity/Vol]18 U/LNormal0-31PMain Campus Medical CenterComment on above:Performed By: #### CBCA, BMP, LIVR #### [facility] ([id number]) [address], [address] [place], [place] [address]LUA [Catalytic activity/Vol]16 U/LNormal0-41OhioHealth Grant Medical CenterComment on above:Performed By: #### CBCA, BMP, LIVR #### [facility] ([id number]) [address], [address] [place], [place] [address]Nmtpqwyjj [Mass/Vol]0.5 mg/dLNormal0.3-1.2PMain Campus Medical CenterComment on above:Performed By: #### CBCA, BMP, LIVR #### [facility] ([id number]) [address], [address] [place], [place] [address]Cpsfqjxxl.direct [Mass/Vol]0.2 mg/dLNormal0.0-0.4ProValley Regional Medical CenterComment on above:Performed By: #### CBCA, BMP, LIVR #### [facility] ([id number]) [address], [address] [place], [place] [address]Hplqdkj [Mass/Vol]6.6 g/dLNormal6.0-8.0ProValley Regional Medical CenterComment on above:Performed By: #### CBCA, BMP, LIVR #### [facility] ([id number]) [address], [address] [place], [place] [address]Xidko panelon 06-53-4845Ibelunu [Mass/Vol]4.4 g/dL3.2 - 5.3 g/dL ProMedica Health SystemALP [Catalytic activity/Vol]65 U/L39 - 130 U/LPrEast Morgan County Hospital Health SystemALT No additional P-5'-P [Catalytic activity/Vol]18 U/L0 - 31 U/L [facility] Health SystemAST [Catalytic activity/Vol]16 U/L0 - 41 U/LPrMiddletown Hospital SystemBilirubin [Mass/Vol]0.5 mg/dL0.3 - 1.2 mg/dLSumma Health Barberton Campus Bilirubin.direct [Mass/Vol]0.2 mg/dL0.0 - 0.4 mg/dLToledo Hospital System Protein [Mass/Vol]6.6 g/dL6.0 - 8.0 g/dLToledo Hospital SystemNo Panel Informationon 91-74-1151KfmNejfet Health SystemXR Chest PA and Lateralon 36-43-4635YzziuiUmesh Bolaños MD - 09/28/2023 Procedure: Chest x-ray performed Number of views:2 History:Preop asthma Comparison:None Findings: The heart and lungs show no acute findings, and the mediastinum and manasa are grossly negative . Impression: 1. No acute change. Finalized by Umesh Bolaños MD on 09/28/2023 10:05 AM [facility] CampusRadiology Study observation (narrative)[facility] HospitalMainkeys Inc [facility] HospitalXR Chest PA and LateralOrdered By: Umesh Bolaños on 88-17-3934TsiChqaghParkview Health [facility] [facility] Work Phone: Basic Metab w/rfx MGon 72-33-4202Kdnwb gap [Moles/Vol] 8 mmol/LLow9-17[facility]inte HospitalComment on above:Performed By: #### BMPX, CDP #### [employer] [address] [place] [address] Mall Plant Caretaker: CHUY Johnsonalcium [Mass/Vol]8.3 mg/dLLow8.6-10.4[facility] Po[facility] HospitalComment on above:Performed By: #### BMPX, CDP #### [employer] [address] [place] [address] Mall Plant Caretaker: CHUY Johnsonhloride [Moles/Vol]107 mmol/ERmyono17-121GhkexCleveland Clinic South Pointe HospitalComment on above:Performed By: #### BMPX, CDP #### [employer] [address] [place] [address] Mall Plant Caretaker: Quirino Valladares MDCO2 [Moles/Vol]24 mmol/OMdnekk71-90NmkmaCleveland Clinic South Pointe HospitalComment on above:Performed By: #### BMPX, CDP #### [employer] [address] [place] [address] Mall Plant Caretaker: Quirino Valladares MDCreatinine [Mass/Vol]0.9 mg/dLNormal0.5-0.9[facility] HospitalComment on above:Performed By: #### BMPX, CDP #### [employer] [address] [place] [address] Mall Plant Caretaker: Quirino Valladares MDGFR/1.73 sq M.predicted among non-blacks MDRD (S/P/Bld) [Vol rate/Area]mL/min/{1.73_m2}Normal>60[facility] HospitalComment on above:Result Comment: These results are [...] tubular secretion.Performed By: #### BMPX, CDP #### [employer] [address] [place] [address] Mall Plant Caretaker: Quirino Valladares MDGlucose [Mass/Vol]88 mg/aDUozsal95-83NksxaSan Luis Obispo General HospitalComment on above:Performed By: #### BMPX, CDP #### [employer] [address] [place] [address] Mall Plant Caretaker: Quirino Valladares MDPotassium [Moles/Vol]3.6 mmol/LLow3.7-5.3MSan Luis Obispo General HospitalComment on above:Performed By: #### BMPX, CDP #### [employer] [address] [place] [address] Mall Plant Caretaker: Quirino Valladares MDSodium [Moles/Vol]139 mmol/AVjpiwx064-528FpeyjCleveland Clinic South Pointe HospitalComment on above:Performed By: #### BMPX, CDP #### [employer] [address] [place] [address] Mall Plant Caretaker: Quirino Valladares MDUrea nitrogen [Mass/Vol]9 mg/dLNormal6-20[facility] HospitalComment on above:Performed By: #### BMPX, CDP #### [facility] [employer] [address] [place] [address] Mall Plant Caretaker: HARRISON Johnson with Diffon 95-69-7150Syq. Basophil0.04 k/uL Normal0.00-0.20[facility] HospitalComment on above:Performed By: #### BMPX, CDP #### [address] [address] [address] [employer] Caretaker: Marta Johnson.Imm.Granulocyte<0.47Saryif6.00-0.30[facility] HospitalComment on above:Performed By: #### BMPX, CDP #### [address] [address] [address] [employer] Caretaker: Marta Johnson.Neutrophil (Seg)2.46 k/uLNormal1.80-8.00 [facility] HospitalComment on above:Performed By: #### BMPX, CDP #### [address] [address] [address] [employer] Caretaker: Quirino Valladares MDBasophils/100 WBC (Bld)1 %Normal0-2MSan Luis Obispo General HospitalComment on above:Performed By: #### BMPX, CDP #### [place] [address] [employer] Caretaker: Quirino Valladares MDEosinophils (Bld) [#/Vol]0.11 10*3/uLNormal 0.00-0.44[facility] HospitalComment on above:Performed By: #### BMPX, CDP #### [address] [address] [address] [employer] Caretaker: WM Johnsonosinophils/100 WBC (Bld)2 %Normal1-4[facility] HospitalComment on above:Performed By: #### BMPX, CDP #### [address] [address] [employer] Caretaker: Quirino Valladares MDErythrocyte distribution width (RBC) [Ratio]11.9 %Yibnux18.8-14.4[facility] HospitalComment on above:Performed By: #### BMPX, CDP #### [place] [address] [employer] Caretaker: Quirino Valladares MDHematocrit (Bld) [Volume fraction]36.8 %Normal 36.3-47.1MSan [facility] Obispo General HospitalComment on above:Performed By: #### BMPX, CDP #### [place] [address] [employer] Caretaker: Quirino Valladares MDHemoglobin (Bld) [Mass/Vol]12.6 g/dLNormal 11.9-15.1MSan [facility]is[facility] HospitalComment on above:Performed By: #### BMPX, CDP #### [place] [address] [employer] Caretaker: Quirino Valladares MDImmature granulocytes/100 WBC (Bld)0 %Normal0 [facility] HospitalComment on above:Performed By: #### BMPX, CDP #### [place] [address] [employer] Caretaker: Quirino Valladares MDLymphocytes (Bld) [#/Vol]2.61 10*3/uLNormal 1.20-5.20[facility] HospitalComment on above:Performed By: #### BMPX, CDP #### [address] [address] Mall Plant Caretaker: Roland Johnsonmphocytes/100 WBC (Bld)45 %Rfgchk02-49FevczCleveland Clinic South Pointe HospitalComment on above:Performed By: #### BMPX, CDP #### [address] [place] [address] Mall Plant Caretaker: HESHAM JohnsonCH (RBC) [Entitic mass]29.6 yeKmqqzt01.2-33.5 [facility] HospitalComment on above:Performed By: #### BMPX, CDP #### [facility] [employer] [address] [place] [address] Mall Plant Caretaker: HESHAM JohnsonCHC (RBC) [Mass/Vol]34.2 g/aZPoxdkd99.4-34.8 [facility] HospitalComment on above:Performed By: #### BMPX, CDP #### [facility] [employer] [address] [place] [address] [address] Plant Caretaker: HESHAM JohnsonCV (RBC) [Entitic vol]86.4 iNAprdim26.6-102.9 [facility] HospitalComment on above:Performed By: #### BMPX, CDP #### [address] [address] Mall Plant Caretaker: HESHAM Johnsononocytes (Bld) [#/Vol]0.52 10*3/uLNormal 0.10-1.40[facility] HospitalComment on above:Performed By: #### BMPX, CDP #### [facility] [employer] [address] [place] [address] [address] Plant Caretaker: HESHAM Johnsononocytes/100 WBC (Bld)9 %High2-8[facility] HospitalComment on above:Performed By: #### BMPX, CDP #### [facility] [employer] [address] [place] [address] [address] Plant Caretaker: Quirino Valladares MDNeutrophil (Seg)43 %Atpuyx10-17BiiztCleveland Clinic South Pointe HospitalComment on above:Performed By: #### BMPX, CDP #### [facility] [employer] [address] [place] [address] [address] Plant Caretaker: Quirino Valladares MDNRDILLON Automated0.0 per 100 WBCNormal0.0[facility] HospitalComment on above:Performed By: #### BMPX, CDP #### [facility] [employer] [address] [place] [address] Mall Plant Caretaker: Sonja Johnson mean volume (Bld) [Entitic vol]12.3 fL Normal8.1-13.5[facility] HospitalComment on above:Performed By: #### BMPX, CDP #### [facility] [employer] [address] [place] [address] Mall Plant Caretaker: Kayli Johnsontemarco (Bld) [#/Vol]210 10*3/nOHjyvit851-248 [facility] HospitalComment on above:Performed By: #### BMPX, CDP #### [address] [address] Mall Plant Caretaker: Quirino Valladares MDRBC (Bld) [#/Vol]4.26 10*6/uLNormal3.95-5.11 [facility] HospitalComment on above:Performed By: #### BMPX, CDP #### [address] [address] Mall Plant Caretaker: KALPANA Johnson (Bld) [#/Vol]5.8 10*3/uLNormal4.5-13.5[facility] HospitalComment on above:Performed By: #### BMPX, CDP #### [facility] [employer] [address] [place] [address] [address] Plant Caretaker: Jessie Johnson Metab w/rfx MGon 85-36-1656Dpbwtenqm [Moles/Vol]3.5 mmol/LLow3.7-5.3MSan Luis Obispo General HospitalComment on above: Performed By: #### CDP, BMPX, MG #### [facility] [address] [place] [address] [address] Plant Caretaker: Quirino Valladares MDAnion gap [Moles/Vol]8 mmol/LLow9-17[facility] HospitalComment on above:Performed By: #### CDP, BMPX, MG #### [facility] [address] [place] [address] [address] Plant Caretaker: CHUY Johnsonalcium [Mass/Vol]8.8 mg/dLNormal8.6-10.4[facility] HospitalComment on above:Performed By: #### CDP, BMPX, MG #### [facility] [employer] [address] [place] [address] [address] Plant Caretaker: Quirino Valladares MDChloride [Moles/Vol]105 mmol/QYsiqsa96-340UbwjsCleveland Clinic South Pointe HospitalComment on above:Performed By: #### CDP, BMPX, MG #### [facility] [employer] [address] [place] [address] [address] Plant Caretaker: Quirino Valladares MDCO2 [Moles/Vol]23 mmol/RMcguml64-05VwuocCleveland Clinic South Pointe HospitalComment on above:Performed By: #### CDP, BMPX, MG #### [facility] [address] [place] [address] [address] Plant Caretaker: CHUY Johnsonreatinine [Mass/Vol]0.8 mg/dLNormal0.5-0.9[facility] HospitalComment on above:Performed By: #### CDP, BMPX, MG #### [employer] [address] [place] [address] [address] Plant Caretaker: Quirino Valladares MDGFR/1.73 sq M.predicted among non-blacks MDRD (S/P/Bld) [Vol rate/Area]mL/min/{1.73_m2}Normal>60MerWhittier Hospital Medical CenterComment on above:Result Comment: These results [...] #### CDP, BMPX, MG #### [facility] [address] [place] [address] [address] Plant Caretaker: Quirino Valladares MDGlucose [Mass/Vol]73 mg/zAEhgmpd75-34RahmeSan Luis Obispo General HospitalComment on above:Performed By: #### CDP, BMPX, MG #### [facility] [address] [place] [address] Mall Plant Caretaker: ELIECER Johnsonodium [Moles/Vol]136 mmol/ILqfrcr339-665OrocbCleveland Clinic South Pointe HospitalComment on above:Performed By: #### CDP, BMPX, MG #### [facility] [employer] [address] [place] [address] [address] Plant Caretaker: Quirino Valladares MDUrea nitrogen [Mass/Vol]7 mg/dLNormal6-20[facility] HospitalComment on above:Performed By: #### CDP, BMPX, MG #### [facility] [place] [address] Mall Plant Caretaker: Quirino Valladares [facility] with Diffon 75-63-1524Yym. Basophil0.03 k/uL Normal0.00-0.20[facility] HospitalComment on above:Performed By: #### CDP, BMPX, MG #### [facility] [employer] [address] [place] [address] [address] Plant Caretaker: Marta Johnson.Imm.Granulocyte<0.91Vouncr2.00-0.30[facility] HospitalComment on above:Performed By: #### CDP, BMPX, MG #### [address] [address] Mall Plant Caretaker: Marta Johnson.Neutrophil (Seg)2.17 k/uLNormal1.80-8.00 [facility] HospitalComment on above:Performed By: #### CDP, BMPX, MG #### [place] [address] Mall Plant Caretaker: Quirino Valladares MDBasophils/100 WBC (Bld)1 %Normal0-2MSan Luis Obispo General HospitalComment on above:Performed By: #### CDP, BMPX, MG #### [place] [address] Mall Plant Caretaker: Quirino Valladares MDEosinophils (Bld) [#/Vol]0.08 10*3/uLNormal 0.00-0.44[facility] HospitalComment on above:Performed By: #### CDP, BMPX, MG #### [place] [address] Mall Plant Caretaker: WM Johnsonosinophils/100 WBC (Bld)2 %Normal1-4[facility] HospitalComment on above:Performed By: #### CDP, BMPX, MG #### [place] [address] Mall Plant Caretaker: Quirino Valladares MDErythrocyte distribution width (RBC) [Ratio]11.9 %Udkrwd99.8-14.4[facility] HospitalComment on above:Performed By: #### CDP, BMPX, MG #### [place] [address] Mall Plant Caretaker: Quirino Valladares MDHematocrit (Bld) [Volume fraction]40.0 %Normal 36.3-47.1MSan Luis Obispo General HospitalComment on above:Performed By: #### CDP, BMPX, MG #### [facility] [address] [place] [address] [address] Plant Caretaker: Quirino Valladares MDHemoglobin (Bld) [Mass/Vol]13.6 g/dLNormal 11.9-15.1MSan Luis Obispo General HospitalComment on above:Performed By: #### CDP, BMPX, MG #### [facility] [address] [place] [address] [address] Plant Caretaker: Quirino Valladares MDImmature granulocytes/100 WBC (Bld)0 %Normal0 [facility] HospitalComment on above:Performed By: #### CDP, BMPX, MG #### [address] [address] Mall Plant Caretaker: Quirino Valaldares MDLymphocytes (Bld) [#/Vol]1.69 10*3/uLNormal 1.20-5.20[facility] HospitalComment on above:Performed By: #### CDP, BMPX, MG #### [address] [address] Mall Plant Caretaker: Quirino Valladares MDLymphocytes/100 WBC (Bld)38 %Olllfy30-26GqmzrCleveland Clinic South Pointe HospitalComment on above:Performed By: #### CDP, BMPX, MG #### [address] [address] Mall Plant Caretaker: HESHAM JohnsonCH (RBC) [Entitic mass]29.6 feZeriin60.2-33.5 [facility] HospitalComment on above:Performed By: #### CDP, BMPX, MG #### [facility] [address] [place] [address] [address] Plant Caretaker: HESHAM JohnsonCHC (RBC) [Mass/Vol]34.0 g/wIQblfin93.4-34.8 [facility] HospitalComment on above:Performed By: #### CDP, BMPX, MG #### [place] [address] Mall Plant Caretaker: HESHAM JohnsonCV (RBC) [Entitic vol]87.0 rKKuiert65.6-102.9 [facility] HospitalComment on above:Performed By: #### CDP, BMPX, MG #### [facility] [employer] [address] [place] [address] Mall Plant Caretaker: HESHAM Johnsononocytes (Bld) [#/Vol]0.47 10*3/uLNormal 0.10-1.40[facility] HospitalComment on above:Performed By: #### CDP, BMPX, MG #### [place] [address] Mall Plant Caretaker: HESHAM Johnsononocytes/100 WBC (Bld)11 %High2-8[facility] HospitalComment on above:Performed By: #### CDP, BMPX, MG #### [place] [address] Mall Plant Caretaker: Jade Johnsonutrophil (Seg)48 %Dgtvxa29-08ItfasCleveland Clinic South Pointe HospitalComment on above:Performed By: #### CDP, BMPX, MG #### [place] [address] Mall Plant Caretaker: Quirino Valladares MDNRBC Automated0.0 per 100 WBCNormal0.0[facility] HospitalComment on above:Performed By: #### CDP, BMPX, MG #### [facility] [employer] [address] [place] [address] Mall Plant Caretaker: BILL Johnsonlatelet mean volume (Bld) [Entitic vol]11.8 fL Normal8.1-13.5[facility] HospitalComment on above:Performed By: #### CDP, BMPX, MG #### [facility] [address] [place] [address] Mall Plant Caretaker: Alistair Johnson ([facility]) [#/Vol]214 10*3/mFDvtmxy056-888 [facility] HospitalComment on above:Performed By: #### CDP, BMPX, MG #### [facility] [address] [place] [address] Mall Plant Caretaker: HECTOR Johnson ([facility]) [#/Vol]4.60 10*6/uLNormal3.95-5.11 [facility] HospitalComment on above:Performed By: #### CDP, BMPX, MG #### [facility] [address] [place] [address] [address] Plant Caretaker: KALPANA Johnson ([facility]) [#/Vol]4.4 10*3/uLLow4.5-13.5[facility] HospitalComment on above:Performed By: #### SHYAM, BMPX, MG #### [facility] [address] [place] [address] [address] Plant Caretaker: Quirino Valladares MDLamotrigineon 37-60-4230Bfkwredyltr<1.0Low 3.0-15.0[facility] HospitalComment on above:Result Comment: Neither a therapeutic [...] needed.Performed By: #### LAMO #### [facility] [address] [place] [address] Mall Plant Caretaker: Mohsen Johnsongnesiumon 61-03-6521Vpzdxhyqu [Mass/Vol]2.0 mg/dLNormal1.6-2.6[facility] HospitalComment on above:Performed By: #### CDP, BMPX, MG #### [address] [place] [address] Mall Plant Caretaker: HECTOR JohnsonAD - Ultrasound Reporton [id number] - Ultrasound [id number]#1.00TIFRegency Hospital Cleveland EastPhysician Referralon [id number] Referral [id number]#1.00TIFRegency Hospital Cleveland EastCBC W MANUAL DIFFon [id number]Kkp [facility] HospitalComment on above:Performed By: #### DOUG #### [facility] [address] [place] [address] Dr. Juan Jose Dangelo LYMPH #0.36 103/ulNormalThMercy Health Anderson HospitalComment on above:Performed By: #### DOUG #### [facility] [address] [place] [address] Dr. Juan Jose Dangelo LYMPH %4 %NormalUc Medical CenterComment on above: Performed By: #### DOUG #### [facility] [address] [place] [address] Dr. Juan Jose Shepard #0.0 103/ulNormal0.0-0.3The [facility] HospitalComment on above:Performed By: #### DOUG #### [facility] [address] [place] [address] Dr. Juan Jose Shepard %0 %Normal0-5The [facility] HospitalComment on above:Performed By: #### CBCJESSICA #### [facility] [address] [place] [address] Dr. Juan Jose Loza #0.09 103/ulNormal0.00-0.10The [facility] HospitalComment on above:Performed By: #### CBCJESSICA #### [facility] [address] [place] [address] Dr. Juan Jose Loza %1.0 %Normal0.2-2.0The [facility] HospitalComment on above: Performed By: #### CBCJESSICA #### [facility] [address] [place] [address] Dr. Juan Jose Gunderson #NormalThe Isle Au Haut HospitalComment on above:Performed By: #### DOUG #### [facility] [address] [place] [address] Dr. Juan Jose Gunderson %NormalThe [facility] HospitalComment on above:Performed By: #### DOUG #### [facility] [address] [place] [address] Dr. Juan Jose BandaCORRECTED WBCNormal4.0-11.0The [facility] HospitalComment on above: Performed By: #### DOUG #### [facility] [address] [place] [address] Dr. Juan Jose Lewis #0.18 103/ulNormal0.00-0.70The [facility] HospitalComment on above:Performed By: #### DOUG #### [facility] [address] [place] [address] Dr. Juan Jose Lewis%2.0 %Normal0.9-7.0The [facility] HospitalComment on above: Performed By: #### DOUG #### [facility] [address] [place] [address] Dr. Juan Jose BandaHCT34.0 %Critically low36.0-48.0The [facility] HospitalComment on above:Performed By: #### DOUG #### [facility] [address] [place] [address] Dr. Juan Jose BandaHGB11.8 g/dlCritically low12.0-16.0The [facility] HospitalComment on above:Performed By: #### CBCJESSICA #### [facility] [address] [place] [address] Dr. Juan Jose Denson #1.55 103/ulNormal1.20-3.80Uc Medical CenterComment on above:Performed By: #### CBCJESSICA #### [facility] [address] [address] [address] Juan Jose MartinHM%17.0 %Critically low20.5-60.0The [facility] HospitalComment on above:Performed By: #### CBCJESSICA #### [facility] [address] [address] [address] Juan Jose ToureH29.0 lqYfhhtq32.7-34.0The [facility] HospitalComment on above: Performed By: #### CBCJESSICA #### [facility] [address] [address] [address] Juan Jose ToureHC34.7 g/piJfzmje14.9-35.2The [facility] HospitalComment on above:Performed By: #### DOUG #### [facility] [address] [address] [address] Juan Jose ToureV83.5 sZDkrlfz04.0-99.0Uc Medical CenterComment on above: Performed By: #### CBCJESSICA #### [facility] [address] [address] [address] Juan Jose GrayOCYTE #NormalUc Medical CenterComment on above: Performed By: #### DOUG #### [facility] [address] [place] [address] Dr. Juan Jose GrayOCYTE %NormalThe [facility] HospitalComment on above: Performed By: #### CBCJESSICA #### [facility] [address] [place] [address] Dr. Juan Jose BandaMICROCYTOSISSLIGHTNoWVUMedicine Barnesville Hospitale [facility] HospitalComment on above: Performed By: #### CBCJESSICA #### [facility] [address] [place] [address] Dr. Juan Jose Marshall#1.00 103/ulCritically high0.30-0.80The [facility] on above:Performed By: #### CBCJESSICA #### [facility] [address] [place] [address] Dr. Juan Jose Marshall%11.0 %Normal1.7-12.0The [facility] HospitalComment on above: Performed By: #### DOUG #### [facility] [address] [place] [address] Dr. Juan Jose HilarioV11.2 fLNormal9.5-13.5The [facility] HospitalComment on above: Performed By: #### CBCJESSICA #### [facility] [address] [place] [address] Dr. Juan Jose Ashley #NormalUc Medical CenterComment on above:Performed By: #### DOUG #### [facility] [address] [place] [address] Dr. Juan Jose Ashley %NormalThe [facility] HospitalComment on above:Performed By: #### DOUG #### [facility] [address] [place] [address] Dr. Juan Jose BandaNRBCNormalThe [facility] HospitalComment on above:Performed By: #### DOUG #### [facility] [address] [place] [address] Dr. Juan Jose BuiT180 103/cmRnpcgi058-215Loo [facility] HospitalComascension [facility] hospital on above: Performed By: #### DOUG #### [facility] [address] [place] [address] Dr. Juan Jose BandaRBC4.07 106/ulCritically low4.20-5.40The [facility] HospitalComment on above:Performed By: #### DOUG #### [facility] [address] [place] [address] Dr. Juan Jose BandaRDW11.9 %Lvsgpe01.0-15.0The [facility] HospitalComment on above: Performed By: #### DOUG #### [facility] [address] [place] [address] Dr. Juan Jose Pierce #5.92 103/ulNormal1.40-6.50The [facility] HospitalComment on above:Performed By: #### DOUG #### [facility] [address] [place] [address] Dr. Juan Jose Pierce %65.0 %Foxzdc01.0-75.0[facility] on above: Performed By: #### CBCMAN #### [facility] [address] [place] [address] Dr. Juan Jose BandaWBC9.1 103/ulNormal4.0-11.0[facility] on above: Performed By: #### CBCMAN #### [facility] [address] [place] [address] Dr. Juan Jose BandaDRUG SCREEN RAPID (URINE)on [id number]G [facility] CenterComascension st[facility] j[facility] hospital on above:Performed By: #### URCX #### [facility] [address] [place] [address] Dr. Juan Jose CuevasNegativeMissouri Baptist Hospital-SullivanalNEGKettering Health Behavioral Medical CenterComascension st. john hospital on above: Performed By: #### URCX #### [facility] [address] [place] [address] Dr. Juan Jose ReyesPNegativeNormalNEGKettering Health Behavioral Medical CenterComascension st. john hospital on above: Performed By: #### URCX #### [facility] [address] [place] [address] Dr. Juan Jose BandaBZONegativeNormalNEGKettering Health Behavioral Medical CenterComascension st[facility] j[facility] hospital on above: Performed By: #### URCX #### [facility] [address] [place] [address] Dr. Juan Jose ConnellCNegativeNormalNEGKettering Health Behavioral Medical CenterComascension st. john hospital on above: Performed By: #### URCX #### [facility] [address] [place] [address] Dr. Juan [address] GarridoMercy Health [address]. Rita's Medical CenterComment on above: Result Comment: AMP (Amphetamine): 500ng/mL, BAR (Barbituates): 200 ng/mL, BZO (Benzodiazepines): 150 ng/mL, BUP (Buprenorphine): 10 ng/mL, LUCIO (Cocaine): 150 ng/mL, mAMP (Methamphetamine): 500 ng/mL, MTD (Methadone): 200 ng/mL, OPI (Opiates): 100 ng/mL, OXY (Oxycodone): 100 ng/mL, PCP (Phencyclidine): 25 ng/mL, PPX (Propoxyphene): 300 ng/mL, THC (Cannabinoids): 50 ng/mL, TCA (Trycyclic Antidepressants): 300 ng/mLPerformed By: #### URCX #### [facility] [address] [place] [address] Dr. Juan Jose BandaDRUG CUT HEADERDRUG CLASS TEST SYSTEM CUT-OFF CONCENTRATIONS ARE FOLLOWS:NormalUc Medical CenterComment on above:Performed By: #### URCX #### [facility] [address] [place] [address] Dr. Juan Jose BandamAMPNegativeNormalNEGATIVEUc Medical CenterComment on above: Performed By: #### URCX #### [facility] [address] [place] [address] Dr. Juan Jose BandaMTDNegativeNormalNEGATIVEUc Medical CenterComment on above: Performed By: #### URCX #### [facility] [address] [place] [address] Dr. Juan Jose LevineINegativeNormalNEGATIVEUc Medical CenterComascension st. john hospital on above: Performed By: #### URCX #### [facility] [address] [place] [address] Dr. Juan Jose BandaOXYNegativeNormalNEGATIVEUc Medical CenterComment on above: Performed By: #### URCX #### [facility] [address] [place] [address] Dr. Juan Jose BandaPCPNegativeNormalNEGATIVEUc Medical CenterComment on above: Performed By: #### URCX #### [facility] [address] [place] [address] Dr. Juan Jose BandaPPXNegativeNormalNEGATIVEUc Medical CenterComment on above: Performed By: #### URCX #### [facility] [address] [place] [address] Dr. Juan Jose BandaTCANegativeNormalNEGATIVEUc Medical CenterComment on above: Performed By: #### URCX #### [facility] [address] [place] [address] Dr. Juan Jose LeegativeNormalNEGKettering Health Behavioral Medical CenterComment on above: Performed By: #### URCX #### [facility] [address] [address] [address] Juan Jose BandaTYPE AND SCREENon [id number] AND SCREENNegativeSelect Medical TriHealth Rehabilitation HospitalComment on above:Performed By: #### CBCMAN #### [facility] [address] [address] [address] Juan Jose Narayan PREG BIOPHY W NON STRESSon [id number] PREG BIOPHY W NON STRESSEXAMINATION: US PREG [...] Electronically authenticated by: YO MESA Date: 2022-12-31 17:02[facility] Rehabilitation HospitalUS PREG UMBILICAL ARTERYon [id number] PREG UMBILICAL ARTERY EXAMINATION: US PREG UMBILICAL [...] Electronically authenticated by: YO MESA Date: 2022-12-31 17:18NoGenesis HospitalGROUP B STREP CULTUREon 12-28-2022S. agalactiae Ag Ql (Unsp spec)Culture Observations: NEGATIVE FOR GROUP B STREPTOCOCCUS.NormalThe [facility] HospitalComment on above: Performed By: #### GBSCX #### [facility] [address] [address] [address] Juan Jose Narayan PREG BIOPHY W NON STRESSon [id number] PREG BIOPHY W NON STRESSEXAMINATION: US PREG [...] Electronically authenticated by: LUISA ARCHIBALD Date: 2022-12-24 11:23NoGenesis HospitalUS PREG UMBILICAL ARTERYon [id number] PREG UMBILICAL ARTERY EXAMINATION: US PREG UMBILICAL [...] Electronically authenticated by: LUISA ARCHIBALD Date: 2022-12-24 11:58NoGenesis HospitalUA (CLEAN/CATCH) SERVICE ORDER DISPATCHER/MICRO IF IND.on [id number] Ql (U) NegativeNormalNEGATIVEUc Medical CenterComment on above:Performed By: #### CBCMAN #### [facility] [address] [address] [address] Juan Jose BandaClarity (U)CLEARNormalCLEARThe [facility] HospitalComment on above: Performed By: #### CBCMAN #### [facility] [facility] [address] [address] [address] Juan Jose BandaColor (U)LT. YELLOWNormalYELLOWUc Medical CenterComment on above:Performed By: #### DOUG #### [facility] [address] [address] [address] Juan Jose BandaGlucose Ql (U)NegativeNormalNEGATIVEUc Medical CenterComment on above:Performed By: #### DOUG #### [facility] [address] [address] [address] Juan Jose BandaHemoglobin Ql (U)NegativeNormalNEGKettering Health Behavioral Medical Center Comment on above:Performed By: #### DOUG #### [facility] [address] [address] [address] Juan Jose BandaKetones Ql (U)NegativeNormalNEGATIVEUc Medical CenterComment on above:Performed By: #### DOUG #### [facility] [address] [address] [address] Juan Jose BandaLEUKOCYTESSMALLAbnormalNEGATIVEUc Medical CenterComment on above:Performed By: #### DOUG #### [facility] [address] [place] [address] Dr. Juan Jose BandaNitrite Ql (U)NegativeNormalNEGATIVEUc Medical CenterComment on above:Performed By: #### DOUG #### [facility] [address] [address] [address] Juan Jose BandapH (U)6.0 [pH]Normal5-9Uc Medical CenterComment on above: Performed By: #### DOUG #### [facility] [address] [address] [address] Juan Jose BandaSPEC GRAVITY<=1.485Tnzjzuqi2.005-<=1.025[facility] Comment on above:Performed By: #### DOUG #### [facility] [address] [place] [address] Dr. Juan Jose BandaUA PROTEINNegativeNormalNEGATIVE/ TRACEUc Medical Center Comment on above:Performed By: #### DOUG #### [facility] [address] [address] [address] Juan Jose PEREZ INDINDICATEDSelect Medical TriHealth Rehabilitation HospitalComment on above: Performed By: #### DOUG #### [facility] [address] [address] [address] Juan Jose Ewing Qn (U)0.2 {Tyler'U}/dLNormal0.2 - 1.0The [facility]Com[facility] on above:Performed By: #### DOUG #### [facility] [address] [address] [address] Juan Jose ALBRECHT ONLYon [id number] SEENNormalNONE SEENUc Medical CenterComascension st. john hospital on above:Performed By: #### DOUG #### [facility] [address] [address] [address] Juan Jose Batres identified Cx Nom (U)NOT INDICATEDNoGenesis HospitalComment on above:Performed By: #### DOUG #### [facility] [address] [address] [address] Juan Jose Dao SEENNormalNONE SEENUc Medical CenterComascension st[facility] on above:Performed By: #### DOUG #### [facility] [address] [address] [address] Juan Jose Santoyo LM Nom (Urine sed)NONE SEENNormalNONE SEENUc Medical CenterComascension [facility] on above:Performed By: #### DOUG #### [facility] [address] [address] [address] Ingram ChangEpithelial cells LM Ql (Urine sed)MANYAbnormalNONE SEEN /RAREThe [facility] HospitalComasc[facility] on above:Performed By: #### DOUG #### [facility] [address] [address] [address] Juan Jose Tolbert SEENNormalNONE SEENUc Medical CenterComascension [facility] on above:Performed By: #### DOUG #### [facility] [address] [place] [address] Dr. Juan Jose BandaRBCNONE SEENAbnormal0-2Uc Medical CenterComment on above: Performed By: #### CBCMAN #### [facility] [address] [place] [address] Dr. Juan Jose BandaWBC2-5AbnormalNONE SEENThe [facility] HospitalComment on above: Performed By: #### CBCMAN #### [facility] [address] [place] [address] Dr. Juan Jose Narayan PREG BIOPHY W NON STRESSon [id number] PREG BIOPHY W NON STRESSEXAM: US PREG [...] Electronically authenticated by: DALLIN HERNANDEZ Date: 2022-12-22 20:55NoMi[facility] PREG PLACENTAon [id number] PREG PLACENTAEXAM: US PREG PLACENTA HISTORY: Abdominal [...] Electronically authenticated by: DALLIN HERNANDEZ Date: 2022-12-22 20:52NoMi[facility] Hospital PREG GROWTHon [id number] PREG GROWTHEXAMINATION: US PREG GROWTH HISTORY: Uterine [...] Electronically authenticated by: LUISA ARCHIBALD Date: 2022-12-20 15:23NoWhite Hospital HospitalCULTURE URINEon [id number] URINECulture Observations: LIGHT GROWTH OF MIXED GENITAL CHEVY. NO POTENTIAL PATHOGENS SEEN.NormalThe [facility] HospitalComment on above:Performed By: #### URCX #### [facility] [address] [place] [address] Dr. Juan Jose Hinton (CLEAN/CATCH) SERVICE ORDER DISPATCHER/MICRO IF IND.on [id number] Ql (U) NegativeNormalNEGATIVEThe [facility] HospitalComment on above:Performed By: #### HIV12 #### [facility] [address] [place] [address] Dr. Juan Jose Kumararity (U)CLEARNormalCLEARThe [facility] HospitalComment on above: Performed By: #### HIV12 #### [facility] [address] [place] [address] Dr. Juan Jose Oliver (U)LT. YELLOWNormalYELLOWUc Medical CenterComment on above:Performed By: #### HIV12 #### [facility] [address] [address] [address] Juan Jose BandaGlucose Ql (U)NegativeNormalNEGATIVEUc Medical CenterComment on above:Performed By: #### HIV12 #### [facility] [address] [place] [address] Dr. Juan Jose BandaHemoglobin Ql (U)NegativeNormalNEGATIVEUc Medical Center Comment on above:Performed By: #### HIV12 #### [facility] [address] [place] [address] Dr. Juan Jose BandaKetones Ql (U)NegativeNormalNEGATIVEUc Medical CenterComment on above:Performed By: #### HIV12 #### [facility] [address] [place] [address] Dr. Juan Jose BandaLEUKOCYTESMODERATEAbnormalNEGATIVEUc Medical CenterComment on above:Performed By: #### HIV12 #### [facility] [address] [place] [address] Dr. Juan Jose BandaNitrite Ql (U)NegativeNormalNEGATIVEUc Medical CenterComment on above:Performed By: #### HIV12 #### [facility] [address] [place] [address] Dr. Juan Jose BandapH (U)6.5 [pH]Normal5-9Uc Medical CenterComment on above: Performed By: #### HIV12 #### [facility] [address] [place] [address] Dr. Juan Jose BandaSPEC GRAVITY<=1.363Plwnigpo5.005-<=1.025[facility] Comment on above:Performed By: #### HIV12 #### [facility] [address] [place] [address] Dr. Juan Jose BandaUA PROTEINNegativeMissouri Baptist Hospital-SullivanalNEGFIRSTHEALTH MOORE [facility] - [facility]/ TRACEUc Medical Center Comment on above:Performed By: #### HIV12 #### [facility] [address] [place] [address] Dr. Juan Jose PEREZ INDINDICATEDSelect Medical TriHealth Rehabilitation HospitalComment on above: Performed By: #### HIV12 #### [facility] [address] [place] [address] Dr. Juan Jose Ewing Qn (U)0.2 {Tyler'U}/dLNormal0.2 - 1.0The [facility] Hospitalment on above:Performed By: #### HIV12 #### [facility] [address] [place] [address] Dr. Juan Jose France MICROSCOPIC ONLYon [id number]X SEEN [facility] CenterComasc[facility] on above:Performed By: #### RPRQ #### [facility] [address] [place] [address] Dr. Juan Jose Batres identified Cx Nom (U)INDICATEDSelect Medical TriHealth Rehabilitation HospitalComascension st. j[facility] hospital on above:Performed By: #### RPRQ #### [facility] [address] [place] [address] Dr. Juan Jose Dao SEENNormalNONE SEENUc Medical CenterComascension st. [facility] on above:Performed By: #### RPRQ #### [facility] [address] [place] [address] Dr. Juan Jose Santoyo LM Nom (Urine sed)NONE SEENNormalNONE SEENCleveland Clinic Avon Hospital on above:Performed By: #### RPRQ #### [facility] [address] [place] [address] Dr. Juan Jose Faustpithelial cells LM Ql (Urine sed)MODERATEAbnormalNONE SEEN /RARE The [facility]Com[facility] on above:Performed By: #### RPRQ #### [facility] [address] [place] [address] Dr. Juan Jose Tolbert SEENNormalNONE SEENCleveland Clinic Avon Hospital on above:Performed By: #### RPRQ #### [facility] [address] [place] [address] Dr. Juan Jose BandaLgggvGIS7-0Hgzumleh1-1Xjy [facility] HospitalComment on above:Performed By: #### RPRQ #### [facility] [address] [place] [address] Dr. Juan Jose BandaWBC5-10AbnormalNONE SEENThe [facility] on above: Performed By: #### RPRQ #### [facility] [address] [place] [address] Dr. Juan Jose AbdiASTPRESENTAbnormalNONE SEENThe [facility] on above:Result Comment: rarePerformed By: #### RPRQ #### [facility] [address] [place] [address] Dr. Juan Jose Saravia GUSTAVO ADMITon [id number] [Catalytic activity/Vol]33 U/L Mgythy35-650Wiw [facility] on above:Performed By: #### SEDR #### [facility] [address] [place] [address] Dr. Juan Jose Knowles.MB [Mass/Vol]ng/mLNormal<=3.60The [facility] on above:Performed By: #### SEDR #### [facility] [address] [place] [address] Dr. Juan Jose Gil<4.9Iyeoee7.0-51.3The [facility] on above: Result Comment: CUT-OFF POINTS HAVE BEEN ESTABLISHED BASED ON THE FOURTH UNIVERSAL DEFINITIONS OF MYOCARDIAL INFARCTION. THE UPPER REFERENCE LIMIT (URL) OF TROPONIN, DEFINED THE 99TH PERCENTILE OF cTnI DISTRIBUTION IN A REFERENCE POPULATION, HAS BEEN CONFIRMED THE DECISION THRESHOLD FOR PR DIAGNOSIS.Performed By: #### SEDR #### [facility] [address] [place] [address] Dr. Juan Jose BatemanO17 ng/mLNormal9-82The [facility] on above: Performed By: #### SEDR #### [facility] [address] [place] [address] Dr. Juan Jose Rosado AUTO DIFFon [id number] #0.0 103/ulNormal0.0-0.1The [facility] on above:Performed By: #### URCX #### [facility] [address] [place] [address] Dr. Juan Jose BandaBasophils/100 WBC (Bld)0.2 %Normal0.2-2.0The [facility] Comment on above:Performed By: #### URCX #### [facility] [address] [place] [address] Dr. Juan Jose Sims #0.0 103/ulNormal0.0-0.7The [facility] HospitalComment on above: Performed By: #### URCX #### [facility] [address] [place] [address] Dr. Juan Jose Faustosinophils/100 WBC (Bld)0.4 %Critically low0.9-7.0The [facility] HospitalComment on above:Performed By: #### URCX #### [facility] [address] [place] [address] Dr. Juan Jose Faustrythrocyte distribution width (RBC) [Ratio]12.4 %Umyhvw30.0-15.0 [facility] Medical CenterComment on above:Performed By: #### URCX #### [facility] [address] [place] [address] Dr. Juan Jose BandaHematocrit (Bld) [Volume fraction]33.7 %Critically low36.0-48.0 [facility] Medical CenterComment on above:Performed By: #### URCX #### [facility] [address] [place] [address] Dr. Juan Jose BandaHemoglobin (Bld) [Mass/Vol]12.1 g/gTWmqxoe36.0-16.0The [facility] HospitalComment on above:Performed By: #### URCX #### [facility] [address] [place] [address] Dr. Juan Jose Daugherty #0.09 10e3/ulCritically high0.00-0.03The [facility] Comment on above:Performed By: #### URCX #### [facility] [address] [place] [address] Dr. Juan Jose Daugherty %1.1 %Critically high0.0-0.5The [facility] HospitalComment on above:Performed By: #### URCX #### [facility] [address] [place] [address] Dr. Juan Jose Banerjee #1.5 103/ulNormal1.2-3.8The [facility] HospitalComment on above:Performed By: #### URCX #### [facility] [address] [place] [address] Dr. Juan Jose Martinhocytes/100 WBC (Bld)17.1 %Critically low20.5-60.0The [facility] HospitalComment on above:Performed By: #### URCX #### [facility] [address] [place] [address] Dr. Juan Jose FullerUAL DIFF REQNONormalThe [facility] HospitalComment on above: Performed By: #### URCX #### [facility] [address] [place] [address] Dr. Juan Jose Toure (RBC) [Entitic mass]30.5 qoEbrxor51.7-34.0The [facility] HospitalComment on above:Performed By: #### URCX #### [facility] [address] [place] [address] Dr. Juan Jose Toure (RBC) [Mass/Vol]35.9 g/dLCritically high29.9-35.2The [facility] HospitalComment on above:Performed By: #### URCX #### [facility] [address] [place] [address] Dr. Juan Jose Toure (RBC) [Entitic vol]84.9 dAZvvyaf58.0-99.0The [facility] HospitalComment on above:Performed By: #### URCX #### [facility] [address] [place] [address] Dr. Juan Jose Pedro #0.8 103/ulNormal0.3-0.8The [facility] HospitalComment on above:Performed By: #### URCX #### [facility] [address] [place] [address] Dr. Juan Jose BandaMonocytes/100 WBC (Bld)9.8 %Normal1.7-12.0The [facility] Comment on above:Performed By: #### URCX #### [facility] [address] [place] [address] Dr. Juan Jose NyeUT #6.1 103/ulNormal1.4-6.5The [facility] HospitalComment on above:Performed By: #### URCX #### [facility] [address] [place] [address] Dr. Juan Jose Nyeutrophils/100 WBC (Bld)71.4 %Mimkbg48.0-75.0The [facility] HospitalComment on above:Performed By: #### URCX #### [facility] [address] [place] [address] Dr. Juan Jose BandaPlatelet mean volume (Bld) [Entitic vol]11.2 fLNormal9.5-13.5The [facility] HospitalComment on above:Performed By: #### URCX #### [facility] [address] [place] [address] Dr. Juan Jose BandaPLT196 103/maNzxhir163-221Tny [facility] HospitalComment on above: Performed By: #### URCX #### [facility] [address] [place] [address] Dr. Juan Jose BandaRBC3.97 106/ulCritically low4.20-5.40The [facility] HospitalComment on above:Performed By: #### URCX #### [facility] [address] [place] [address] Dr. Juan Jose BandaWBC8.5 103/ulNormal4.0-11.0The [facility] HospitalComment on above: Performed By: #### URCX #### [facility] [address] [place] [address] Dr. Juan Jose Villatoro PROFILEon [id number] [Mass/Vol]3.0 g/dLCritically low3.4-5.0The [facility] HospitalComment on above:Performed By: #### SEDR #### [facility] [address] [address] [address] Juan Jose BandaAlbumin/Globulin [Mass ratio]0.9 {ratio}NormalThe [facility] HospitalComment on above:Performed By: #### SEDR #### [facility] [address] [address] [address] Juan Jose Hugo [Catalytic activity/Vol]76 U/ZIrktkf50-778Vad [facility] HospitalComment on above:Performed By: #### SEDR #### [facility] [address] [address] [address] Juan Jose Stafford [Catalytic activity/Vol]13 U/LCritically zbj97-63Sol [facility] HospitalComment on above:Performed By: #### SEDR #### [facility] [address] [place] [address] Dr. Juan Jose BandaAST [Catalytic activity/Vol]14 U/LCritically yqd65-01Ghu [facility] HospitalComment on above:Performed By: #### SEDR #### [facility] [address] [place] [address] Dr. Juan Jose RodriguezI, CONJUGATED0.1 mg/dLNormal0.0-0.2The [facility] Comment on above:Performed By: #### SEDR #### [facility] [address] [address] [address] Juan Jose Rodriguezirubin [Mass/Vol]0.3 mg/dLNormal0.2-1.0The [facility] Comment on above:Performed By: #### SEDR #### [facility] [address] [address] [address] Juan Jose BandaGlobulin (S) [Mass/Vol]3.4 g/dLNormalThe [facility] HospitalComment on above:Performed By: #### SEDR #### [facility] [address] [address] [address] Juan Jose BandaProtein [Mass/Vol]6.4 g/dLNormal6.4-8.2The [facility] Comment on above:Performed By: #### SEDR #### [facility] [id number] Juan Jose BandaBOX TEST SENT OUTon [id number] TO REF LAB10/01/2022[facility] Rehabilitation HospitalComment on above:Performed By: #### SEDR #### [facility] [address] [place], [place] [address] Dr. Juan Jose BandaUS PREG ANATOMY SINGLEon [id number] PREG ANATOMY SINGLE EXAMINATION: US PREG ANATOMY [...] Electronically authenticated by: LUISA ARCHIBALD Date: 2022-09-29 16:29[facility] Rehabilitation HospitalHEP B SURFACE ANTIGEN SCREENon [id number] ScreenNegative NormalNegativeThe [facility] on above:Performed By: #### SEDR #### [facility] [address] [place] [address] Dr. Juan Jose BandaHEPATITIS C VIRUS AB W/ REFLEX QUANTon [id number] AB<0.1Normal 0.0-0.9The [facility] on above:Performed By: #### RPRQ #### [facility] [address] [place] [address] Dr. Juan Jose BandaInterpretation:CommentNormalThe [facility] on above:Result Comment: Negative Not infected with HCV, unless recent infection is suspected or other evidence exists to indicate HCV infection.Performed By: #### RPRQ #### [address] [address] [address] Juan Jose BandaHICapo 1 AND 2 WITH REFLEXon 16-13-7165UJN Screen 4th Generation wRfxNon-ReactiveNormalNon ReactiveThe [facility] on above:Result Comment: HIV Negative HIV-1/HIV-2 antibodies and HIV-1 p24 antigen were NOT detected. There is no laboratory evidence of HIV infection.Performed By: #### HIV12 #### [address] [address] Dr[address] Juan Jose BandaRPRadha QUANTon 01-58-6082Axlkc Plasma Reagin, QuantNon-Reactive NormalNonRea<1:1The [facility] on above:Result Comment: Please Note: This test does not meet current guidelines for screening and diagnosis of syphilis. This test is intended for following treatment response in patients being treated for syphilis infection. To screen for syphilis infection, a reflex cascade that includes both RPR and a treponema-specific assay should be utilized, such as Treponema pallidum (Syphilis) Screening Calera (857421) or Rapid Plasma Reagin (RPR) Test With Reflex to Quantitative RPR and Confirmatory Treponema pallidum Antibodies (044876).Performed By: #### RPRQ #### [facility] [address] [place] [address] Dr. Juan Jose Knowles AB IGGon 90-00-9404Iqqziwb Antibodies, IgG2.56 index NormalImmune >0.99The [facility] HospitalComment on above:Result Comment: Non- immune <0.90 Equivocal 0.90 - 0.99 Immune >0.99Performed By: #### SEDR #### [facility] [address] [place] [address] Dr. Juan Jose BandaCULTURE URINEon [id number] URINECulture Observations: LIGHT GROWTH OF MIXED GENITAL CHEVY. NO POTENTIAL PATHOGENS SEEN.NormalThe [facility] HospitalComment on above:Performed By: #### URCX #### [facility] [address] [place] [address] Dr. Juan Jose Rosado AUTO DIFFon [id number] #0.0 103/ulNormal0.0-0.1The [facility] HospitalComment on above:Performed By: #### SEDR #### [facility] [address] [place] [address] Dr. Juan Jose BandaBasophils/100 WBC (Bld)0.4 %Normal0.2-2.0[facility] Comment on above:Performed By: #### SEDR #### [facility] [address] [place] [address] Dr. Ingram ChangEValery #0.1 103/ulNormal0.0-0.7The [facility] HospitalComment on above: Performed By: #### SEDR #### [facility] [address] [place] [address] Dr. Juan Jose Faustosinophils/100 WBC (Bld)1.4 %Normal0.9-7.0The [facility] Comment on above:Performed By: #### SEDR #### [facility] [address] [place] [address] Dr. Juan Jose Faustrythrocyte distribution width (RBC) [Ratio]12.2 %Wmrmuz54.0-15.0 The [facility] HospitalComment on above:Performed By: #### SEDR #### [facility] [address] [place] [address] Dr. Juan Jose BandaHematocrit (Bld) [Volume fraction]35.3 %Critically low36.0-48.0 The [facility] HospitalComment on above:Performed By: #### SEDR #### [facility] [address] [place] [address] Dr. Juan Jose BandaHemoglobin (Bld) [Mass/Vol]12.7 g/gZGabvue62.0-16.0The [facility] HospitalComment on above:Performed By: #### SEDR #### [facility] [address] [place] [address] Dr. Juan Jose Daugherty #0.03 10e3/ulNormal0.00-0.03The [facility] HospitalComment on above:Performed By: #### SEDR #### [facility] [address] [place] [address] Dr. Juan Jose Daugherty %0.4 %Normal0.0-0.5The [facility] HospitalComment on above: Performed By: #### SEDR #### [facility] [address] [place] [address] Dr. Juan Jose Banerjee #1.4 103/ulNormal1.2-3.8The [facility] HospitalComment on above:Performed By: #### SEDR #### [facility] [address] [place] [address] Dr. Juan Jose Snowmphocytes/100 WBC (Bld)19.7 %Critically low20.5-60.0The [facility] HospitalComment on above:Performed By: #### SEDR #### [facility] [address] [place] [address] Dr. Juan Jose BandaMANUAL DIFF REQNONormalThe [facility] HospitalComment on above: Performed By: #### SEDR #### [facility] [address] [place] [address] Dr. Juan Jose Medeiros (RBC) [Entitic mass]29.8 ohGcnxfw82.7-34.0The [facility] HospitalComment on above:Performed By: #### SEDR #### [facility] [address] [address] [address] Juan Jose ToureHC (RBC) [Mass/Vol]36.0 g/dLCritically high29.9-35.2The [facility] HospitalComment on above:Performed By: #### SEDR #### [facility] [address] [address] [address] Juan Jose ToureV (RBC) [Entitic vol]82.9 sKXybezb71.0-99.0The [facility] HospitalComment on above:Performed By: #### SEDR #### [facility] [address] [place] [address] Dr. Juan Jose Pedro #0.6 103/ulNormal0.3-0.8The [facility] HospitalComment on above:Performed By: #### SEDR #### [facility] [address] [place] [address] Dr. Juan Jose Puriocytes/100 WBC (Bld)8.3 %Normal1.7-12.0The [facility] Comment on above:Performed By: #### SEDR #### [facility] [address] [place] [address] Dr. Juan Jose Farr #5.0 103/ulNormal1.4-6.5The [facility] HospitalComment on above:Performed By: #### SEDR #### [facility] [address] [place] [address] Dr. Juan Jose Nyeutrophils/100 WBC (Bld)69.8 %Slbvxk27.0-75.0The [facility] HospitalComment on above:Performed By: #### SEDR #### [facility] [address] [place] [address] Dr. Juan Jose Muñozlet mean volume (Bld) [Entitic vol]11.8 fLNormal9.5-13.5The [facility] HospitalComment on above:Performed By: #### SEDR #### [facility] [address] [place] [address] Dr. Juan Jose BandaPLT183 103/zpXqcvbn153-535Szl [facility] on above: Performed By: #### SEDR #### [facility] [address] [place] [address] Dr. Juan Jose BandaRBC4.26 106/ulNormal4.20-5.40The [facility] on above:Performed By: #### SEDR #### [facility] [address] [place] [address] Dr. Juan Jose BandaWBC7.1 103/ulNormal4.0-11.0The [facility] on above: Performed By: #### SEDR #### [facility] [address] [place] [address] Dr. Juan Jose BandaCULTURE URINEon 25-31-5268GGFSGLG URINECulture Observations: MODERATE GROWTH OF MIXED GENITAL CHEVY. NO POTENTIAL PATHOGENS SEEN.NormalThe [facility] on above:Performed By: #### CBCMAN #### [facility] [address] [place] [address] Dr. Juan Jose BandaGLYCOHEMOGLOBIN A1Con [id number] RECOMMENDATIONSEE BELOWNormal The [facility] on above:Result Comment: ADA RECOMMENDED LIMIT 4.0 - 6.0 ADA THERAPEUTIC TARGET < 7.0 ACTION SUGGESTED > 7.0Performed By: #### HIV12 #### [facility] [address] [place] [address] Dr. Juan Jose BandaGlucose [Mass/Vol]85 mg/dLNoOhioHealth Hardin Memorial Hospital on above:Performed By: #### HIV12 #### [facility] [address] [place] [address] Dr. Juan Jose BandaHbA1c (Bld) [Mass fraction]4.6 %Normal4.5-6.2The [facility] on above:Performed By: #### HIV12 #### [facility] [address] [place] [address] Dr. Juan Jose BandaTYPE AND SCREENon 80-91-8431DQZP AND SCREENNegativeNoOhioHealth Hardin Memorial Hospital on above:Performed By: #### TNS #### [facility] [address] [place] [address] Dr. Juan Jose BandaCovid-19 PCR ([facility])on [id number]-CoV-2 (COVID-19) RNA ISAAC+probe Ql (Unsp spec)Not detectedNormalNOT DETECTEDThe [facility] Comment on above:Result Comment: When diagnostic [...] for this test is supported by the Storage Facility Rental Clerk of Health and Human Service's declaration that [...] longer be used).Performed By: #### RPRQ #### [facility] [address] [place] [address] Dr. Juan Jose Fernandez A AND B AGon [id number] BELOWSelect Medical TriHealth Rehabilitation HospitalComment on above:Result Comment: Negative for Flu A protein angiten. Infection due to Flu A cannot be ruled out. FluA angiten in the sample may be below the detection limit of the test.Performed By: #### SEDR #### [facility] [address] [place] [address] Dr. Juan Jose OspinaUBNEGBORIS [facility]Com[facility] on above: Result Comment: Negative for Flu B protein antigen. Infection due to Flu B cannot be ruled out. FluB antigen in the sample may be below the detection limit of the test.Performed By: #### SEDR #### [facility] [address] [place] [address] Dr. Yilan ChangINFLUENZA A AGNegativeNormalNEGATIVE SEE COMMENTThe [facility] HospitalComment on above:Performed By: #### SEDR #### [facility] [address] [place] [address] Dr. Juan Jose Infante AGNegativeNormalNEGATIVE SEE COMMENTThe [facility] HospitalComment on above:Performed By: #### SEDR #### [facility] [address] [place] [address] Dr. Juan Jose BandaINTERNAL CONTROLSWithin Normal LimitsNormalWithin Normal Limits [facility] CenterComment on above:Performed By: #### SEDR #### [facility] [address] [place] [address] Dr. Juan Jose Rosado AUTO DIFFon [id number] #0.0 103/ulNormal0.0-0.1The [facility] HospitalComment on above:Performed By: #### SEDR #### [facility] [address] [place] [address] Dr. Juan Jose BandaBasophils/100 WBC (Bld)0.3 %Normal0.2-2.0[facility] Comment on above:Performed By: #### SEDR #### [facility] [address] [place] [address] Dr. Juan Jose Sims #0.1 103/ulNormal0.0-0.7The [facility] HospitalComment on above: Performed By: #### SEDR #### [facility] [address] [place] [address] Dr. Juan Jose Faustosinophils/100 WBC (Bld)1.3 %Normal0.9-7.0The [facility] Comment on above:Performed By: #### SEDR #### [facility] [address] [place] [address] Dr. Juan Jose Faustrythrocyte distribution width (RBC) [Ratio]11.4 %Ukhkak24.0-15.0 [facility] CenterComment on above:Performed By: #### SEDR #### [facility] [address] [place] [address] Dr. Yilan ChangHematocrit (Bld) [Volume fraction]35.6 %Critically low36.0-48.0 The [facility] HospitalComment on above:Performed By: #### SEDR #### [facility] [address] [address] [address] Juan Jose BandaHemoglobin (Bld) [Mass/Vol]12.9 g/sPHtfbtg41.0-16.0The [facility] HospitalComment on above:Performed By: #### SEDR #### [facility] [address] [address] [address] Juan Jose BandaIG #0.04 10e3/ulCritically high0.00-0.03The [facility] Comment on above:Performed By: #### SEDR #### [facility] [address] [place] [address] Dr. Juan Jose BandaIG %0.5 %Normal0.0-0.5The [facility] HospitalComment on above: Performed By: #### SEDR #### [facility] [address] [place] [address] Dr. Juan Jose Banerjee #2.2 103/ulNormal1.2-3.8The [facility] HospitalComment on above:Performed By: #### SEDR #### [facility] [address] [place] [address] Dr. Juan Jose Snowmphocytes/100 WBC (Bld)25.8 %Fqyrel56.5-60.0The [facility] HospitalComment on above:Performed By: #### SEDR #### [facility] [address] [place] [address] Dr. Juan Jose BandaMANUAL DIFF REQNONormalThe [facility] HospitalComment on above: Performed By: #### SEDR #### [facility] [address] [place] [address] Dr. Juan Jose Medeiros (RBC) [Entitic mass]29.9 tsGjnhax38.7-34.0The [facility] HospitalComment on above:Performed By: #### SEDR #### [facility] [address] [place] [address] Dr. Juan Jose ToureHC (RBC) [Mass/Vol]36.2 g/dLCritically high29.9-35.2The [facility] HospitalComment on above:Performed By: #### SEDR #### [facility] [address] [place] [address] Dr. Juan Jose ToureV (RBC) [Entitic vol]82.4 tKXtshqt55.0-99.0The [facility] HospitalComment on above:Performed By: #### SEDR #### [facility] [address] [place] [address] Dr. Juan Jose Pedro #0.9 103/ulCritically high0.3-0.8The [facility] Comment on above:Performed By: #### SEDR #### [facility] [address] [place] [address] Dr. Juan Jose Puriocytes/100 WBC (Bld)9.9 %Normal1.7-12.0The [facility] Comment on above:Performed By: #### SEDR #### [facility] [address] [place] [address] Dr. Juan Jose Farr #5.4 103/ulNormal1.4-6.5The [facility] HospitalComment on above:Performed By: #### SEDR #### [facility] [address] [place] [address] Dr. Juan Jose Nyeutrophils/100 WBC (Bld)62.2 %Csnyhc32.0-75.0The [facility] HospitalComment on above:Performed By: #### SEDR #### [facility] [address] [place] [address] Dr. Juan Jose Muñozlet mean volume (Bld) [Entitic vol]11.7 fLNormal9.5-13.5The [facility] HospitalComment on above:Performed By: #### SEDR #### [facility] [address] [place] [address] Dr. Juan Jose BandaPLT205 103/cyLhyggm854-685Ebh [facility] HospitalComment on above: Performed By: #### SEDR #### [facility] [address] [place] [address] Dr. Juan Jose BandaRBC4.32 106/ulNormal4.20-5.40The [facility] HospitalComment on above:Performed By: #### SEDR #### [facility] [address] [place] [address] Dr. Juan Jose BandaWBC8.6 103/ulNormal4.0-11.0The [facility] HospitalComment on above: Performed By: #### SEDR #### [facility] [address] [place] [address] Dr. Juan Jose Pimentel URINE PROFILEon 99-63-0440Fkfyergao Ql (U)NegativeNormal NEGATIVEUc Medical CenterComment on above:Performed By: #### HIV12 #### [facility] [address] [place] [address] Dr. Juan Jose Kumararity (U)CLEARNormalCLEARUc Medical CenterComment on above: Performed By: #### HIV12 #### [facility] [address] [place] [address] Dr. Juan Jose Oliver (U)LT. YELLOWNormalYELLOWUc Medical CenterComment on above:Performed By: #### HIV12 #### [facility] [address] [place] [address] Dr. Juan Jose YuenDA micrscopic examination will be performed if indicated. NormalThe [facility] HospitalComment on above:Performed By: #### HIV12 #### [facility] [address] [place] [address] Dr. Juan Jose BandaGlucose Ql (U)NegativeNormalNEGATIVEUc Medical CenterComment on above:Performed By: #### HIV12 #### [facility] [address] [place] [address] Dr. Juan Jose BandaHemoglobin Ql (U)NegativeNormalNEGATIVEWyandot Memorial Hospital on above:Performed By: #### HIV12 #### [facility] [address] [place] [address] Dr. Juan Jose Johnson Ql (U)NegativeNormalNEGATIVEUc Medical CenterComment on above:Performed By: #### HIV12 #### [facility] [address] [place] [address] Dr. Juan Jose BairdOCYTESSMALLAbnormalNEGATIVEUc Medical CenterComment on above:Performed By: #### HIV12 #### [facility] [address] [place] [address] Dr. Juan Jose Rey Ql (U)NegativeNormalNEGATIVEUc Medical CenterComment on above:Performed By: #### HIV12 #### [facility] [address] [place] [address] Dr. Juan Jose BandapH (U)6.0 [pH]Normal5-9The [facility] HospitalComment on above: Performed By: #### HIV12 #### [facility] [address] [place] [address] Dr. Juan Jose BandaSPEC GRAVITY<=1.094Qqroqbtj4.005-<=1.025[facility] Comment on above:Performed By: #### HIV12 #### [facility] [address] [place] [address] Dr. Juan Jose Hinton PROTEINNegativeNormalNEGATIVE/ TRACEUc Medical Center Comment on above:Performed By: #### HIV12 #### [facility] [address] [place] [address] Dr. Juan Jose Anne MICRO INDINDICATEDNormalThMercy Health Anderson HospitalComment on above: Performed By: #### HIV12 #### [facility] [address] [place] [address] Dr. Juan Jose Jiménezbilinogen Qn (U)0.2 {Tyler'U}/dLNormal0.2 - 1.0[facility] CenterComment on above:Performed By: #### HIV12 #### [facility] [address] [place] [address] Dr. Juan Jose LaraG QUANT HCGon 80-93-0966LIJ HJFIJ87633 mIU/mLNormalThe [facility] HospitalComment on above:Performed By: #### RPRQ #### [facility] [address] [place] [address] Dr. Juan Jose Jessica [facility] HospitalComment on above: Result Comment: 5-50 0.2-1 WEEK 50-500 1-2 WEEKS 100-5,000 2-3 WEEKS 500-10,000 3-4 WEEKS 1,000-50,000 4-5 WEEKS 10,000-100,000 5-6 WEEKS 15,000-200,000 6-8 WEEKS 10,000-100,000 2-3 MONTHSPerformed By: #### RPRQ #### [facility] [address] [place] [address] Dr. Juan Jose BandaPREGNANCY URon [id number], QUALPositiveAbnormalNEGATIVE [facility] CenterComment on above:Performed By: #### HIV12 #### [facility] [address] [place] [address] Dr. Juan Jose BandaPROF CHEM 8 (BAS METB)on 81-12-1169Srrrk gap [Moles/Vol]9.4 mmol/LNormalUc Medical CenterComment on above:Performed By: #### RPRQ #### [facility] [address] [place] [address] Dr. Juan Jose BandaCalcium [Mass/Vol]8.8 mg/dLNormal8.5-10.1[facility] Comment on above:Performed By: #### RPRQ #### [facility] [address] [place] [address] Dr. Juan Jose BandaChloride [Moles/Vol]102 mmol/RGgsmkf49-788ZuqUc Medical Center Comment on above:Performed By: #### RPRQ #### [facility] [address] [place] [address] Dr. Juan Jose BandaCO2 [Moles/Vol]28.0 mmol/FCqidsz73.0-32.0[facility] Comment on above:Performed By: #### RPRQ #### [facility] [address] [place] [address] Dr. Juan Jose BandaCreatinine [Mass/Vol]0.66 mg/dLNormal0.55-1.02The [facility] HospitalComment on above:Performed By: #### RPRQ #### [facility] [address] [place] [address] Dr. Juan Jose FaustGFR-AF PALESTINIAN>60Normal>=60The [facility] HospitalComment on above:Performed By: #### RPRQ #### [facility] [address] [address] [address] Juan Jose FaustGFR-NON AF PALESTINIAN>60Normal>=60The [facility] HospitalComment on above:Performed By: #### RPRQ #### [facility] [address] [place] [address] Dr. Juan Jose BandaGlucose [Mass/Vol]92 mg/eNVsjfdu51-964Mpt [facility] Comment on above:Performed By: #### RPRQ #### [facility] [address] [place] [address] Dr. Juan Jose BandaPotassium [Moles/Vol]3.4 mmol/LCritically low3.5-5.1The [facility] HospitalComment on above:Performed By: #### RPRQ #### [facility] [address] [place] [address] Dr. Juan Jose BandaSodium [Moles/Vol]136 mmol/PBouxzi999-260Nrz [facility] Comment on above:Performed By: #### RPRQ #### [facility] [address] [place] [address] Dr. Juan Jose BandaUrea nitrogen [Mass/Vol]9.0 mg/dLNormal6.4-19.3The [facility] HospitalComment on above:Performed By: #### RPRQ #### [facility] [address] [place] [address] Dr. Juan Jose BandaUrea nitrogen/Creatinine [Mass ratio]13.6 mg/mgNormalThe [facility] HospitalComment on above:Performed By: #### RPRQ #### [facility] [address] [address] [address] Juan Jose France MICROSCOPIC ONLYon [id number]hwddbQCVS SEEN [facility] on above:Performed By: #### HIV12 #### [facility] [address] [place] [address] Dr. Juan Jose Batres identified Cx Nom (U)NOT INDICATEDNoGenesis HospitalComascension st. [facility] hospital on above:Performed By: #### HIV12 #### [facility] [address] [place] [address] Dr. Juan Jose Dao SEENNormalNONE SEENCleveland Clinic Avon Hospital on above:Performed By: #### HIV12 #### [facility] [address] [place] [address] Dr. Juan Jose Stevensonystals LM Nom (Urine sed)NONE SEENNormalNONE SEENCleveland Clinic [facility] on above:Performed By: #### HIV12 #### [facility] [address] [place] [address] Dr. Ingram ChangEpithelial cells LM Ql (Urine sed)MANYAbnormalNONE SEEN /RARECleveland Clinic [facility] on above:Performed By: #### HIV12 #### [facility] [address] [place] [address] Dr. Juan Jose TrippCOUSTRACEAbnormalNONE SEENCleveland Clinic [facility] on above:Performed By: #### HIV12 #### [facility] [address] [place] [address] Dr. Juan Jose McfaddenCxrgeIOR2-3Ckrbje7-4Uyj [facility] on above:Performed By: #### HIV12 #### [facility] [address] [place] [address] Dr. Juan Jose BandaWBC0-2AbnormalNONE SEENCleveland Clinic [facility] on above: Performed By: #### HIV12 #### [facility] [address] [place] [address] Dr. Juan Jose Narayan PREG TVon [id number] PREG TVEXAMINATION: US PREG TV HISTORY: Missed [...] Electronically authenticated by: LUISA ARCHIBALD Date: 2022-06-18 17:27NormProMedica Toledo Hospital HospitalABO AND RH TYPEon [id number] and Rh group Nom (Bld)ABO Rh Typing O Rh PositiveNoGenesis HospitalComment on above:Performed By: #### ABORH #### [facility] [address] [place] [address] Dr. Juan Jose BandaAMYLASEon 45-41-4800Wcxvyju [Catalytic activity/Vol]33 U/LNormal 25-115The [facility] HospitalComment on above:Performed By: #### URCX #### [facility] [address] [place] [address] Dr. Juan Jose Rosado AUTO DIFFon [id number] #0.0 103/ulNormal0.0-0.1[facility] Medical CenterComment on above:Performed By: #### CBCMAN #### [facility] [address] [place] [address] Dr. Juan Jose BandaBasophils/100 WBC (Bld)0.4 %Normal0.2-2.0[facility] Comment on above:Performed By: #### CBCMAN #### [facility] [address] [place] [address] Dr. Juan Jose Sims #0.1 103/ulNormal0.0-0.7The [facility] HospitalComment on above: Performed By: #### CBCMAN #### [facility] [address] [place] [address] Dr. Yilan ChangEosinophils/100 WBC (Bld)2.2 %Normal0.9-7.0The [facility] Comment on above:Performed By: #### DOUG #### [facility] [address] [place] [address] Dr. Juan Jose Faustrythrocyte distribution width (RBC) [Ratio]11.6 %Gfyvxg84.0-15.0 [facility] CenterComment on above:Performed By: #### DOUG #### [facility] [address] [place] [address] Dr. Juan Jose BandaHematocrit (Bld) [Volume fraction]35.1 %Critically low36.0-48.0 The [facility] HospitalComment on above:Performed By: #### DOUG #### [facility] [address] [place] [address] Dr. Juan Jose BandaHemoglobin (Bld) [Mass/Vol]12.5 g/iHBeoxjg53.0-16.0The [facility] HospitalComment on above:Performed By: #### DOUG #### [facility] [address] [place] [address] Dr. Juan Jose Daugherty #0.02 10e3/ulNormal0.00-0.03The [facility] HospitalComment on above:Performed By: #### DUOG #### [facility] [address] [place] [address] Dr. Juan Jose BandaIG %0.4 %Normal0.0-0.5The [facility] HospitalComment on above: Performed By: #### DOUG #### [facility] [address] [place] [address] Dr. Juan Jose MartinH #1.8 103/ulNormal1.2-3.8The [facility] HospitalComment on above:Performed By: #### CBCJESSICA #### [facility] [address] [place] [address] Dr. Juan Jose Snowmphocytes/100 WBC (Bld)31.8 %Ydahpe81.5-60.0The [facility] HospitalComment on above:Performed By: #### CBCJESSICA #### [facility] [address] [place] [address] Dr. Juan Jose FullerUAL DIFF REQNONormalThe [facility] HospitalComment on above: Performed By: #### DOUG #### [facility] [address] [place] [address] Dr. Juan Jose Toure (RBC) [Entitic mass]29.9 edQzdzau86.7-34.0The [facility] HospitalComment on above:Performed By: #### DOUG #### [facility] [address] [place] [address] Dr. Juan Jose Toure (RBC) [Mass/Vol]35.6 g/dLCritically high29.9-35.2The [facility] HospitalComment on above:Performed By: #### DOUG #### [facility] [address] [place] [address] Dr. Juan Jose Toure (RBC) [Entitic vol]84.0 hVRselip77.0-99.0The [facility] HospitalComment on above:Performed By: #### DOUG #### [facility] [address] [place] [address] Dr. Juan Jose Pedro #0.6 103/ulNormal0.3-0.8The [facility] HospitalComment on above:Performed By: #### DOUG #### [facility] [address] [place] [address] Dr. Juan Jose Puriocytes/100 WBC (Bld)10.4 %Normal1.7-12.0The [facility] Comment on above:Performed By: #### CBCJESSICA #### [facility] [address] [place] [address] Dr. Juan Jose Farr #3.1 103/ulNormal1.4-6.5The [facility] HospitalComment on above:Performed By: #### CBCJESSICA #### [facility] [address] [place] [address] Dr. Juan Jose Nyeutrophils/100 WBC (Bld)54.8 %Kphspc84.0-75.0The Toño HospitalComment on above:Performed By: #### MAINEMAN #### [facility] [address] [place] [address] Dr. Juan Jose Ambrose mean volume (Bld) [Entitic vol]11.8 fLNormal9.5-13.5The [facility] Hospitalment on above:Performed By: #### MAINEMAN #### [facility] [address] [place] [address] Dr. Juan Jose BandaPLT185 103/ghYhsley465-771Csw [facility] HospitalComment on above: Performed By: #### MAINEMAN #### [facility] [address] [place] [address] Dr. Juan Jose BandaRBC4.18 106/ulCritically low4.20-5.40The [facility] on above:Performed By: #### MAINEMAN #### [facility] [address] [place] [address] Dr. Juan Jose BandaWBC5.6 103/ulNormal4.0-11.0The [facility] on above: Performed By: #### DOUG #### [facility] [address] [place] [address] Dr. Juan Jose BandaLIPASEon [id number] [Catalytic activity/Vol]69.0 U/L Critically low73.0-393.0[facility] on above:Performed By: #### URCX #### [facility] [address] [place] [address] Dr. Juan Jose Hamm QUANT HCGon [id number] RCKEE71191 mIU/mLNormalThe [facility] HospitalComasc[facility] on above:Performed By: #### RPRQ #### [facility] [address] [place] [address] Dr. Juan Jose Jessica RANGESEE [facility] – JacksonComment on above: Result Comment: 5-50 0.2-1 WEEK 50-500 1-2 WEEKS 100-5,000 2-3 WEEKS 500-10,000 3-4 WEEKS 1,000-50,000 4-5 WEEKS 10,000-100,000 5-6 WEEKS 15,000-200,000 6-8 WEEKS 10,000-100,000 2-3 MONTHSPerformed By: #### RPRQ #### [facility] [address] [place], [place] [id number] Dr. Juan Jose Narayan PREG TVon [id number] PREG TVEXAM: US PREG TV HISTORY: Pain [...] Electronically authenticated by: Marita SINHA Date: 2022-06-02 01:30NoGenesis HospitalCB AUTO DIFFon [id number] #0.0 103/ulNormal0.0-0.1The [facility] HospitalComment on above:Performed By: #### HIV12 #### [facility] [address] [place], [place] [id number] Dr. Juan Jose Moralessophils/100 WBC (Bld)0.5 %Normal0.2-2.0The [facility] Comment on above:Performed By: #### HIV12 #### [facility] [address] [place] [address] Dr. Juan Jose Sims #0.1 103/ulNormal0.0-0.7The [facility] HospitalComment on above: Performed By: #### HIV12 #### [facility] [address] [place] [address] Dr. Juan Jose Faustosinophils/100 WBC (Bld)1.2 %Normal0.9-7.0The [facility] on above:Performed By: #### HIV12 #### [facility] [address] [place] [address] Dr. Juan Jose Faustrythrocyte distribution width (RBC) [Ratio]11.6 %Ylbcsn96.0-15.0 The [facility] HospitalComment on above:Performed By: #### HIV12 #### [facility] [address] [place] [address] Dr. Juan Jose BandaHematocrit (Bld) [Volume fraction]36.0 %Otviht95.0-48.0The [facility] HospitalComment on above:Performed By: #### HIV12 #### [facility] [address] [place] [address] Dr. Juan Jose BandaHemoglobin (Bld) [Mass/Vol]12.7 g/mFRbmqya17.0-16.0The [facility] HospitalComment on above:Performed By: #### HIV12 #### [facility] [address] [place] [address] Dr. Juan Jose Daugherty #0.03 10e3/ulNormal0.00-0.03The [facility] HospitalComment on above:Performed By: #### HIV12 #### [facility] [address] [place] [address] Dr. Juan Jose BandaIG %0.4 %Normal0.0-0.5The [facility] HospitalComment on above: Performed By: #### HIV12 #### [facility] [address] [place] [address] Dr. Juan Jose Banerjee #2.4 103/ulNormal1.2-3.8The [facility] HospitalComment on above:Performed By: #### HIV12 #### [facility] [address] [place] [address] Dr. Yilan ChangLymphocytes/100 WBC (Bld)29.8 %Ecbafy72.5-60.0The [facility] HospitalComment on above:Performed By: #### HIV12 #### [facility] [address] [place] [address] Dr. Juan Jose Ramirez DIFF REQNONormalThe [facility] HospitalComment on above: Performed By: #### HIV12 #### [facility] [address] [place] [address] Dr. Juan Jose Toure (RBC) [Entitic mass]29.9 iuHwkflb89.7-34.0The [facility] HospitalComment on above:Performed By: #### HIV12 #### [facility] [address] [place] [address] Dr. Juan Jose Toure (RBC) [Mass/Vol]35.3 g/dLCritically high29.9-35.2The [facility] HospitalComment on above:Performed By: #### HIV12 #### [facility] [address] [place] [address] Dr. Juan Jose Cisneros (RBC) [Entitic vol]84.7 jIMyrikq55.0-99.0The [facility] HospitalComment on above:Performed By: #### HIV12 #### [facility] [address] [place] [address] Dr. Juan Jose Pedro #0.8 103/ulNormal0.3-0.8The [facility] HospitalComment on above:Performed By: #### HIV12 #### [facility] [address] [place] [address] Dr. Juan Jose Puriocytes/100 WBC (Bld)9.4 %Normal1.7-12.0The [facility] Comment on above:Performed By: #### HIV12 #### [facility] [address] [place] [address] Dr. Juan Jose Farr #4.8 103/ulNormal1.4-6.5The [facility] HospitalComment on above:Performed By: #### HIV12 #### [facility] [address] [place] [address] Dr. Juan Jose Valerioophils/100 WBC (Bld)58.7 %Pmswlz36.0-75.0The [facility] HospitalComment on above:Performed By: #### HIV12 #### [facility] [address] [place] [address] Dr. Juan Jose Ambrose mean volume (Bld) [Entitic vol]11.5 fLNormal9.5-13.5The [facility] HospitalComment on above:Performed By: #### HIV12 #### [facility] [address] [place] [address] Dr. Juan Jose BandaPLT218 103/ijOtumoj442-110Uiw [facility]Com[facility] on above: Performed By: #### HIV12 #### [facility] [address] [place] [address] Dr. Juan Jose BandaRBC4.25 106/ulNormal4.20-5.40The [facility]Com[facility] on above:Performed By: #### HIV12 #### [facility] [address] [place] [address] Dr. Juan Jose BandaWBC8.2 103/ulNormal4.0-11.0The [facility]Com[facility] on above: Performed By: #### HIV12 #### [facility] [address] [place] [address] Dr. Juan Jose Pimentel URINE PROFILEon [id number] Ql (U)NegativeNormal NEGATIVEThe [facility] HospitalCom[facility] on above:Performed By: #### RPRQ #### [facility] [address] [place] [address] Dr. Juan Joes BandaClarity (U)CLEARNormalCLEARThe [facility] HospitalComment on above: Performed By: #### RPRQ #### [facility] [address] [place] [address] Dr. Juan Jose Oliver (U)LT. YELLOWNormalYELLOWThe [facility] HospitalComment on above:Performed By: #### RPRQ #### [facility] [address] [place] [address] Dr. Juan Jose Mtz micrscopic examination will be performed if indicated. NormalThe Isle Au Haut HospitalComment on above:Performed By: #### RPRQ #### [facility] [address] [place] [address] Dr. Juan Jose BandaGlucose Ql (U)NegativeNormalNEGATIVEUc Medical CenterComment on above:Performed By: #### RPRQ #### [facility] [address] [place] [address] Dr. Juan Jose BandaHemoglobin Ql (U)NegativeNormalNEGKettering Health Behavioral Medical Center Comment on above:Performed By: #### RPRQ #### [facility] [address] [place] [address] Dr. Juan Jose BandaKetones Ql (U)TRACEAbnormalNEGATIVEUc Medical CenterComment on above:Performed By: #### RPRQ #### [facility] [address] [place] [address] Dr. Juan Jose BandaLEUKOCYTESSMALLAbnormalNEGATIVEUc Medical CenterComment on above:Performed By: #### RPRQ #### [facility] [address] [place] [address] Dr. Juan Jose BandaNitrite Ql (U)NegativeNormalNEGATIVEUc Medical CenterComment on above:Performed By: #### RPRQ #### [facility] [address] [place] [address] Dr. Juan Jose BandapH (U)5.5 [pH]Normal5-9Uc Medical CenterComment on above: Performed By: #### RPRQ #### [facility] [address] [place] [address] Dr. Juan Jose BandaSPEC GRAVITY1.883Jxuklo5.005-<=1.025Uc Medical CenterComment on above:Performed By: #### RPRQ #### [facility] [address] [place] [address] Dr. Juan Jose BandaUA PROTEINNegativeNormalNEGATIVE/ TRACEUc Medical Center Comment on above:Performed By: #### RPRQ #### [facility] [address] [place] [address] Dr. Juan Jose Anne MICRO INDINDICATEDSelect Medical TriHealth Rehabilitation HospitalComment on above: Performed By: #### RPRQ #### [facility] [address] [place] [address] Dr. Juan Jose Ewing Qn (U)0.2 {Tyler'U}/dLNormal0.2 - 1.0The [facility] HospitalComment on above:Performed By: #### RPRQ #### [facility] [address] [place] [address] Dr. Juan Jose Hamm QUANT HCGon [id number] RPCWU3094 mIU/mLNormalThe [facility] HospitalComment on above:Performed By: #### URCX #### [facility] [address] [place] [address] Dr. Juan Jose Jessica RANGESEE BELOWSelect Medical TriHealth Rehabilitation HospitalComment on above: Result Comment: 5-50 0.2-1 WEEK 50-500 1-2 WEEKS 100-5,000 2-3 WEEKS 500-10,000 3-4 WEEKS 1,000-50,000 4-5 WEEKS 10,000-100,000 5-6 WEEKS 15,000-200,000 6-8 WEEKS 10,000-100,000 2-3 MONTHSPerformed By: #### URCX #### [facility] [address] [place] [address] Dr. Juan Jose BandaPROF 14(COMP METB)on [id number] [Mass/Vol]3.7 g/dLNormal 3.4-5.0The [facility] HospitalComment on above:Performed By: #### HIV12 #### [facility] [address] [place] [address] Dr. Juan Jose BandaAlbumin/Globulin [Mass ratio]1.4 {ratio}NormalThe [facility] HospitalComment on above:Performed By: #### HIV12 #### [facility] [address] [place] [address] Dr. Juan Jose GregoryP [Catalytic activity/Vol]66 U/RRjuspf54-913Snn [facility] HospitalComment on above:Performed By: #### HIV12 #### [facility] [address] [address] [address] Juan Jose Stafford [Catalytic activity/Vol]18 U/KZxfnad97-99Eqy [facility] HospitalComment on above:Performed By: #### HIV12 #### [facility] [address] [address] [address] Juan Jose Arzolaon gap [Moles/Vol]11.5 mmol/LNormalUc Medical Center Comment on above:Performed By: #### HIV12 #### [facility] [address] [place] [address] Dr. Juan Jose BandaAST [Catalytic activity/Vol]10 U/LCritically ldl79-58MrfUc Medical CenterComment on above:Performed By: #### HIV12 #### [facility] [address] [place] [address] Dr. Juan Jose BandaBilirubin [Mass/Vol]0.4 mg/dLNormal0.2-1.0[facility] Comment on above:Performed By: #### HIV12 #### [facility] [address] [place] [address] Dr. Juan Jose BandaCalcium [Mass/Vol]8.3 mg/dLCritically low8.5-10.1Uc Medical CenterComment on above:Performed By: #### HIV12 #### [facility] [address] [place] [address] Dr. Juan Jose BandaChloride [Moles/Vol]104 mmol/EZoincr43-988MxmUc Medical Center Comment on above:Performed By: #### HIV12 #### [facility] [address] [place] [address] Dr. Juan Jose BandaCO2 [Moles/Vol]27.3 mmol/RQveqhq10.0-32.0[facility] Comment on above:Performed By: #### HIV12 #### [facility] [address] [place] [address] Dr. Juan Jose BandaCreatinine [Mass/Vol]0.72 mg/dLNormal0.55-1.02Uc Medical CenterComment on above:Performed By: #### HIV12 #### [facility] [address] [place] [address] Dr. Juan Jose Phan-AF PALESTINIAN>60Normal>=60The [facility] HospitalComment on above:Performed By: #### HIV12 #### [facility] [address] [address] [address] Juan Jose Phan-NON AF PALESTINIAN>60Normal>=60Uc Medical CenterComment on above:Performed By: #### HIV12 #### [facility] [address] [address] [address] Juan Jose BandaGlobulin (S) [Mass/Vol]2.7 g/dLNormalThe [facility] HospitalComment on above:Performed By: #### HIV12 #### [facility] [address] [place] [address] Dr. Juan Jose BandaGlucose [Mass/Vol]95 mg/fYCgzfrx00-177AdsUc Medical Center Comment on above:Performed By: #### HIV12 #### [facility] [address] [place] [address] Dr. Juan Jose BandaPotassium [Moles/Vol]3.8 mmol/LNormal3.5-5.1[facility] Comment on above:Performed By: #### HIV12 #### [facility] [address] [address] [address] Juan Jose BandaProtein [Mass/Vol]6.4 g/dLNormal6.4-8.2[facility] Comment on above:Performed By: #### HIV12 #### [facility] [address] [address] [address] Juan Jose BandaSodium [Moles/Vol]139 mmol/BMhzsjt288-694ZbrUc Medical Center Comment on above:Performed By: #### HIV12 #### [facility] [address] [address] [address] Juan Jose BandaUrea nitrogen [Mass/Vol]9.0 mg/dLNormal6.4-19.3The [facility] HospitalComment on above:Performed By: #### HIV12 #### [facility] [address] [address] [address] Juan Jose BandaUrea nitrogen/Creatinine [Mass ratio]12.5 mg/mgNoGenesis HospitalComascension st. john hospital on above:Performed By: #### HIV12 #### [facility] [address] [address] [address] Juan Jose France MICROSCOPIC ONLYon [id number]T SEEN [facility] CenterCom[facility] on above:Performed By: #### RPRQ #### [facility] [address] [address] [address] Juan Jose Batres identified Cx Nom (U)INDICATEDSelect Medical TriHealth Rehabilitation HospitalComascension st. john hospital on above:Performed By: #### RPRQ #### [facility] [address] [address] [address] Juan Jose Dao SEENNormalNONE SEENCleveland Clinic [facility]on Hospital on above:Performed By: #### RPRQ #### [facility] [address] [address] [address] Juan Jose Stevensonystals LM Nom (Urine sed)NONE SEENNormalNONE SEENCleveland Clinic Avon Hospital on above:Performed By: #### RPRQ #### [facility] [address] [address] [address] Ingram ChangEpithelial cells LM Ql (Urine sed)RARENormalNONE SEEN /RAREUc Medical CenterComascension st. john hospital on above:Performed By: #### RPRQ #### [facility] [address] [address] [address] Juan Jose TrippCOUSJASENE SEENNormneNONE SEENCleveland Clinic [facility]on Hospital on above:Performed By: #### RPRQ #### [facility] [address] [address] [address] Juan Jose BandaFdvzlQNB1-1Fjrljf8-0Kxs [facility] on above:Performed By: #### RPRQ #### [facility] [address] [address] [address] Juan Jose BandaIroggCCS83-89SmwmmxbdPGGM SEENUc Medical CenterComment on above: Performed By: #### RPRQ #### [facility] [address] [address] [address] Juan Jose BandaCT ABD/PELVIS WO CONon [id number] ABD/PELVIS WO CONEXAMINATION: CT ABD/PELVIS WO CON, [...] Electronically authenticated by: ALICJA AVILA Date: 2022-04-29 03:19NoThe [facility] URINE PROFILEon [id number] Ql (U)NegativeNormal NEGATIVEUc Medical CenterComment on above:Performed By: #### CBCMAN #### [facility] [address] [address] [address] Juan Jose Crowell (U)SL CLOUDYAbnormalCLEARThMercy Health Anderson HospitalComascension st. [facility] on above:Performed By: #### CBCMAN #### [facility] [address] [address] [address] Juan Jose Oliver (U)YELLOWNormalYELLOWUc Medical CenterComment on above: Performed By: #### CBCMAN #### [facility] [address] [address] [address] Juan Jose Mtz micrscopic examination will be performed if indicated. NormalUc Medical CenterComment on above:Performed By: #### CBCJESSICA #### [facility] [address] [address] [address] Juan Jose BandaGlucose Ql (U)NegativeNormalNEGATIVEUc Medical CenterComment on above:Performed By: #### CBCJESSICA #### [facility] [address] [address] [address] Juan Jose BandaHemoglobin Ql (U)NegativeNormalNEGKettering Health Behavioral Medical Center Comment on above:Performed By: #### CBCJESSICA #### [facility] [address] [address] [address] Juan Jose BandaKetones Ql (U)NegativeNormalNEGATIVEUc Medical CenterComment on above:Performed By: #### CBCJESSICA #### [facility] [address] [place] [address] Dr. Juan Jose BandaLEUKOCYTESNegativeNormalNEGATIVEUc Medical CenterComment on above:Performed By: #### DOUG #### [facility] [address] [address] [address] Juan Jose BandaNitrite Ql (U)NegativeNormalNEGATIVEUc Medical CenterComment on above:Performed By: #### DOUG #### [facility] [address] [place] [address] Dr. Juan Jose BandapH (U)6.0 [pH]Normal5-9Uc Medical CenterComment on above: Performed By: #### CBCJESSICA #### [facility] [address] [address] [address] Juan Jose BandaSPEC GRAVITY>=1.048Aunqdera2.005-<=1.025[facility] Comment on above:Performed By: #### CBCJESSICA #### [facility] [address] [address] [address] Juan Jose BadnaUA PROTEINNegativeNormalNEGATIVE/ TRACEUc Medical Center Comment on above:Performed By: #### CBCJESSICA #### [facility] [address] [address] [address] Juan Jose Anne MICRO INDNOT INDICATEDNormalThe [facility] HospitalComment on above:Performed By: #### DOUG #### [facility] [address] [place] [address] Dr. Juan Jose BandaUrobilinogen Qn (U)0.2 {Tyler'U}/dLNormal0.2 - 1.0The [facility] on above:Performed By: #### DOUG #### [facility] [address] [place] [address] Dr. Juan Jose BandaPREGNANCY URon [id number], QUALNegativeNormalNEGATIVEThe [facility] on above:Performed By: #### DOUG #### [facility] [address] [place] [address] Dr. Juan Jose BandaPROCALCITONINon [id number] ng/mLNormal0.00-0.08 The [facility] on above:Result Comment: . A procalcitonin (PCT) [...] ng/mL are obtained.Performed By: #### DOUG #### [facility] [address] [place] [address] Dr. Juan Jose AlanC AUTO DIFFon [id number] #0.0 103/ulNormal0.0-0.1The [facility] HospitalComment on above:Performed By: #### CBC #### [facility] [address] [place] [address] Dr. Juan Jose BandaBasophils/100 WBC (Bld)0.3 %Normal0.2-2.0The [facility] Comment on above:Performed By: #### CBC #### [facility] [address] [place] [address] Dr. Juan Jose Sims #0.2 103/ulNormal0.0-0.7The [facility] HospitalComment on above: Performed By: #### CBC #### [facility] [address] [place] [address] Dr. Juan Jose Faustosinophils/100 WBC (Bld)2.5 %Normal0.9-7.0The [facility] Comment on above:Performed By: #### CBC #### [facility] [address] [place] [address] Dr. Juan Jose Faustrythrocyte distribution width (RBC) [Ratio]11.6 %Yfwrxo20.0-15.0 The [facility] HospitalComment on above:Performed By: #### CBC #### [facility] [address] [place] [address] Dr. Juan Jose BandaHematocrit (Bld) [Volume fraction]38.2 %Vhydio76.0-48.0The [facility] HospitalComment on above:Performed By: #### CBC #### [facility] [address] [place] [address] Dr. Juan Jose BandaHemoglobin (Bld) [Mass/Vol]13.5 g/zKXkotcz67.0-16.0The [facility] HospitalComment on above:Performed By: #### CBC #### [facility] [address] [place] [address] Dr. Juan Jose Daugherty #0.01 10e3/ulNormal0.00-0.03The [facility] HospitalComment on above:Performed By: #### CBC #### [facility] [address] [place] [address] Dr. Juan Jose Daugherty %0.2 %Normal0.0-0.5The [facility] HospitalComment on above: Performed By: #### CBC #### [facility] [address] [place] [address] Dr. Juan Jose Banerjee #2.2 103/ulNormal1.2-3.8The [facility] HospitalComment on above:Performed By: #### CBC #### [facility] [address] [place] [address] Dr. Juan Jose Martinhocytes/100 WBC (Bld)33.3 %Kpzegx18.5-60.0The [facility] HospitalComment on above:Performed By: #### CBC #### [facility] [address] [place] [address] Dr. Juan Jose Ramirez DIFF REQNONormalThe [facility] HospitalComment on above: Performed By: #### CBC #### [facility] [address] [place] [address] Dr. Juan Jose Medeiros (RBC) [Entitic mass]29.6 rgKoqouy79.7-34.0The [facility] HospitalComment on above:Performed By: #### CBC #### [facility] [address] [place] [address] Dr. Juan Jose Toure (RBC) [Mass/Vol]35.3 g/dLCritically high29.9-35.2The [facility] HospitalComment on above:Performed By: #### CBC #### [facility] [address] [place] [address] Dr. Juan Jose Cisneros (RBC) [Entitic vol]83.8 tMSxslma88.0-99.0The [facility] HospitalComment on above:Performed By: #### CBC #### [facility] [address] [place] [address] Dr. Juan Jose Pedro #0.7 103/ulNormal0.3-0.8The [facility] HospitalComment on above:Performed By: #### CBC #### [facility] [address] [place] [address] Dr. Juan Jose Puriocytes/100 WBC (Bld)10.2 %Normal1.7-12.0The [facility] Comment on above:Performed By: #### CBC #### [facility] [address] [place] [address] Dr. Juan Jose NyeUT #3.5 103/ulNormal1.4-6.5The [facility] HospitalComment on above:Performed By: #### CBC #### [facility] [address] [place] [address] Dr. Juan Jose Nyeutrophils/100 WBC (Bld)53.5 %Ooumrm23.0-75.0The [facility] HospitalComment on above:Performed By: #### CBC #### [facility] [address] [place] [address] Dr. Juan Jose Muñozlet mean volume (Bld) [Entitic vol]11.9 fLNormal9.5-13.5The [facility] HospitalComment on above:Performed By: #### CBC #### [facility] [address] [place] [address] Dr. Juan Jose BandaPLT200 103/nmQpuumk014-935Tos [facility] HospitalComment on above: Performed By: #### CBC #### [facility] [address] [place] [address] Dr. Juan Jose BandaRBC4.56 106/ulNormal4.20-5.40The [facility] HospitalComment on above:Performed By: #### CBC #### [facility] [address] [place] [address] Dr. Juan Jose BandaWBC6.5 103/ulNormal4.0-11.0The [facility] HospitalComment on above: Performed By: #### CBC #### [facility] [address] [place] [address] Dr. Juan Jose BandaCT ABD/PELV W CONon [id number] ABD/PELV W CONEXAMINATION: CT ABD/PELV W CON [...] Electronically authenticated by: YO TO Date: 2022-04-10 08:[address] [place], [place] [address]GROUP A STREP CULTUREon 04-10-2022. pyogenes Ag Ql (Unsp spec) Culture Observations: NEGATIVE FOR GROUP A STREPTOCOCCUS.NormalThe [facility] HospitalComment on above: Performed By: #### URCX #### [facility] [address] [place] [address] Dr. Juan Jose BandaLACTATE/LACTIC ACIDon 79-89-6469Oqnedgs [Moles/Vol]0.9 mmol/L Normal0.4-1.9The [facility] HospitalComment on above:Performed By: #### URCX #### [facility] [address] [address] [address] Juan Jose BandaLactate [Moles/Vol]2.5 mmol/LCritically high0.4-1.9The [facility] HospitalComment on above:Performed By: #### URCX #### [facility] [address] [place] [address] Dr. Juan Jose Hamm HCG QUALon 26-55-8157PQSVKBDPX, QUALNegativeNormalNEGATIVE The [facility] HospitalComment on above:Performed By: #### SEDR #### [facility] [address] [place] [address] Dr. Juan Jose Oneill 14(COMP METB)on 85-13-2396Plzvowj [Mass/Vol]4.3 g/dLNormal 3.4-5.0The [facility] HospitalComment on above:Performed By: #### CBCMAN #### [facility] [address] [place] [address] Dr. Juan Jose BandaAlbumin/Globulin [Mass ratio]1.8 {ratio}NormalThe [facility] HospitalComment on above:Performed By: #### CBCMAN #### [facility] [address] [place] [address] Dr. Juan Jose Hugo [Catalytic activity/Vol]92 U/YLgraeq07-115Bri [facility] HospitalComment on above:Performed By: #### MAINEMAN #### [facility] [address] [place] [address] Dr. Juan Jose Stafford [Catalytic activity/Vol]20 U/HTfwcvm33-72Ftt [facility] HospitalComment on above:Performed By: #### CBCMAN #### [facility] [address] [place] [address] Dr. Juan Jose Mcmahon gap [Moles/Vol]15.4 mmol/LNormalThe [facility] on above:Performed By: #### CBCMAN #### [facility] [address] [place] [address] Dr. Juan Jose Linton [Catalytic activity/Vol]17 U/YQibqtd33-77Ymr [facility] HospitalComment on above:Performed By: #### CBCMAN #### [facility] [address] [address] [address] Juan Jose BandaBilirubin [Mass/Vol]1.2 mg/dLCritically high0.2-1.0[facility] Medical CenterComment on above:Performed By: #### CBCJESSICA #### [facility] [address] [place] [address] Dr. Juan Jose BandaCalcium [Mass/Vol]8.8 mg/dLNormal8.5-10.1The [facility] Comment on above:Performed By: #### DOUG #### [facility] [address] [place] [address] Dr. Juan Jose BandaChloride [Moles/Vol]107 mmol/LZyyvbm43-427SmnUc Medical Center Comment on above:Performed By: #### DOUG #### [facility] [address] [place] [address] Dr. Juan Jose BandaCO2 [Moles/Vol]23.0 mmol/SUzgmki30.0-32.0The [facility] Comment on above:Performed By: #### CBCJESSICA #### [facility] [address] [place] [address] Dr. Juan Jose BandaCreatinine [Mass/Vol]0.95 mg/dLNormal0.55-1.02The [facility] HospitalComment on above:Performed By: #### CBCJESSICA #### [facility] [address] [place] [address] Dr. Juan Jose BandaGlobulin (S) [Mass/Vol]2.4 g/dLNormalThe [facility] HospitalComment on above:Performed By: #### CBCJESSICA #### [facility] [address] [place] [address] Dr. Juan Jose BandaGlucose [Mass/Vol]95 mg/eOJlrmun52-390DdgUc Medical Center Comment on above:Performed By: #### CBCJESSICA #### [facility] [address] [place] [address] Dr. Juan Jose BandaPotassium [Moles/Vol]3.4 mmol/LCritically low3.5-5.1The [facility] HospitalComment on above:Performed By: #### DOUG #### [facility] [address] [place] [address] Dr. Juan Jose BandaProtein [Mass/Vol]6.7 g/dLNormal6.4-8.2The [facility] Comment on above:Performed By: #### DOUG #### [facility] [address] [place] [address] Dr. Juan Jose BandaSodium [Moles/Vol]142 mmol/NAsxjhp555-802Czl [facility] Comment on above:Performed By: #### DOUG #### [facility] [address] [place] [address] Dr. Juan Jose BandaUrea nitrogen [Mass/Vol]13.0 mg/dLNormal6.4-19.3The [facility] HospitalComment on above:Performed By: #### DOUG #### [facility] [address] [place] [address] Dr. Juan Jose Thompson nitrogen/Creatinine [Mass ratio]13.7 mg/mgNormalThe [facility] HospitalComment on above:Performed By: #### DOUG #### [facility] [address] [place] [address] Dr. Juan Jose Barton RATE WESTERGRENon 72-78-3762OOL RATE1 mm/hrNormal<=20The [facility] HospitalComment on above:Performed By: #### SEDR #### [facility] [address] [place] [address] Dr. Juan Jose BandaSTREPT SCREENon 98-46-4790ZLAPM SCREEN ANegativeNormalNEGATIVEThe [facility] HospitalComment on above:Performed By: #### URCX #### [facility] [address] [place] [address] Dr. Juan Jose BandaAMYLASEon 08-88-5851Uxxamku [Catalytic activity/Vol]29 U/LNormal 25-115The [facility] HospitalComment on above:Performed By: #### HIV12 #### [facility] [address] [place] [address] Dr. Juan Jose Rosado AUTO DIFFon 42-38-1092NHXS #0.0 103/ulNormal0.0-0.1The [facility] HospitalComment on above:Performed By: #### RPRQ #### [facility] [address] [place] [address] Dr. Juan Jose BandaBasophils/100 WBC (Bld)0.4 %Normal0.2-2.0The [facility] Comment on above:Performed By: #### RPRQ #### [facility] [address] [place] [address] Dr. Juan Jose Sims #0.1 103/ulNormal0.0-0.7The [facility] HospitalComment on above: Performed By: #### RPRQ #### [facility] [address] [place] [address] Dr. Juan Jose Faustosinophils/100 WBC (Bld)1.4 %Normal0.9-7.0The [facility] Comment on above:Performed By: #### RPRQ #### [facility] [address] [place] [address] Dr. Juan Jose Faustrythrocyte distribution width (RBC) [Ratio]11.5 %Tvbugn39.0-15.0 The [facility] HospitalComment on above:Performed By: #### RPRQ #### [facility] [address] [place] [address] Dr. Juan Jose BandaHematocrit (Bld) [Volume fraction]36.5 %Iicbxl70.0-48.0The [facility] HospitalComment on above:Performed By: #### RPRQ #### [facility] [address] [place] [address] Dr. Juan Jose BandaHemoglobin (Bld) [Mass/Vol]13.0 g/vLIqtgvf19.0-16.0The [facility] HospitalComment on above:Performed By: #### RPRQ #### [facility] [address] [place] [address] Dr. Juan Jose Daugherty #0.02 10e3/ulNormal0.00-0.03The [facility] HospitalComment on above:Performed By: #### RPRQ #### [facility] [address] [place] [address] Dr. Juan Jose Daugherty %0.3 %Normal0.0-0.5The [facility] HospitalComment on above: Performed By: #### RPRQ #### [facility] [address] [place] [address] Dr. Juan Jose Banerjee #2.4 103/ulNormal1.2-3.8The [facility] HospitalComment on above:Performed By: #### RPRQ #### [facility] [address] [place] [address] Dr. Juan Jose Martinhocytes/100 WBC (Bld)31.4 %Tsennq87.5-60.0The [facility] HospitalComment on above:Performed By: #### RPRQ #### [facility] [address] [place] [address] Dr. Juan Jose FullerUAL DIFF REQNONormalThe [facility] HospitalComment on above: Performed By: #### RPRQ #### [facility] [address] [place] [address] Dr. Juan Jose Toure (RBC) [Entitic mass]29.8 bgNmtonk73.7-34.0The [facility] HospitalComment on above:Performed By: #### RPRQ #### [facility] [address] [place] [address] Dr. Juan Jose Toure (RBC) [Mass/Vol]35.6 g/dLCritically high29.9-35.2The [facility] HospitalComment on above:Performed By: #### RPRQ #### [facility] [address] [place] [address] Dr. Juan Jose Toure (RBC) [Entitic vol]83.7 fWTwuuwu84.0-99.0The [facility] HospitalComment on above:Performed By: #### RPRQ #### [facility] [address] [place] [address] Dr. Juan Jose Pedro #0.9 103/ulCritically high0.3-0.8The [facility] Comment on above:Performed By: #### RPRQ #### [facility] [address] [place] [address] Dr. Juan Jose Puriocytes/100 WBC (Bld)11.1 %Normal1.7-12.0The [facility] Comment on above:Performed By: #### RPRQ #### [facility] [address] [place] [address] Dr. Juan Jose Farr #4.3 103/ulNormal1.4-6.5The [facility] HospitalComment on above:Performed By: #### RPRQ #### [facility] [address] [place] [address] Dr. Juan Jose Nyeutrophils/100 WBC (Bld)55.4 %Kdciwa32.0-75.0The [facility] HospitalComment on above:Performed By: #### RPRQ #### [facility] [address] [place] [address] Dr. Juan Jose BandaPlatelet mean volume (Bld) [Entitic vol]11.6 fLNormal9.5-13.5The [facility] HospitalComment on above:Performed By: #### RPRQ #### [facility] [address] [place] [address] Dr. Juan Jose BandaPLT187 103/vbRpipew273-828Kuo [facility] HospitalComment on above: Performed By: #### RPRQ #### [facility] [address] [place] [address] Dr. Juan Jose BandaRBC4.36 106/ulNormal4.20-5.40The [facility] HospitalComment on above:Performed By: #### RPRQ #### [facility] [address] [place] [address] Dr. Juan Jose BandaWBC7.7 103/ulNormal4.0-11.0The [facility] HospitalComment on above: Performed By: #### RPRQ #### [facility] [address] [address] [address] Juan Jose Pimentel URINE PROFILEon 09-48-7738Mtlxwezbc Ql (U)SMALLAbnormal NEGATIVEUc Medical CenterComascension st. john hospital on above:Performed By: #### URCX #### [facility] [address] [place] [address] Dr. Juan Jose BandaClarity (U)CLEARNormalCLEARUc Medical CenterComascension st. john hospital on above: Performed By: #### URCX #### [facility] [address] [address] [address] Juan Jose BandaColor (U)YELLOWNormalYELLOWUc Medical CenterComment on above: Performed By: #### URCX #### [facility] [address] [place] [address] Dr. Juan Jose Mtz micrscopic examination will be performed if indicated. NormalUc Medical CenterComment on above:Performed By: #### URCX #### [facility] [address] [place] [address] Dr. Juan Jose BandaGlucose Ql (U)NegativeNormalNEGATIVEUc Medical CenterComascension st. john hospital on above:Performed By: #### URCX #### [facility] [address] [place] [address] Dr. Juan Jose BandaHemoglobin Ql (U)NegativeNormalNEGKettering Health Behavioral Medical Center Comment on above:Performed By: #### URCX #### [facility] [address] [place] [address] Dr. Juan Jose BandaKetones Ql (U)40 mg/dlAbnormalNEGKettering Health Behavioral Medical Center Comment on above:Performed By: #### URCX #### [facility] [address] [place] [address] Dr. Juan Jose BandaLEUKOCYTESNegativeNormalNEGATIVEUc Medical CenterComascension st. john hospital on above:Performed By: #### URCX #### [facility] [address] [place] [address] Dr. Juan Jose BandaNitrite Ql (U)NegativeNormalNEGATIVEUc Medical CenterComment on above:Performed By: #### URCX #### [facility] [address] [place] [address] Dr. Juan Jose BandapH (U)5.5 [pH]Normal5-9The [facility] HospitalComment on above: Performed By: #### URCX #### [facility] [address] [place] [address] Dr. Juan Jose BandaSPEC GRAVITY1.200Jlhmzkng2.005-<=1.025The [facility] Comment on above:Performed By: #### URCX #### [facility] [address] [place] [address] Dr. Juan Jose BandaUA PROTEINNegativeNormalNEGATIVE/ TRACEThe [facility] Comment on above:Performed By: #### URCX #### [facility] [address] [place] [address] Dr. Juan Jose Anne MICRO INDNOT INDICATEDNormalThMercy Health Anderson HospitalComment on above:Performed By: #### URCX #### [facility] [address] [place] [address] Dr. Juan Jose BandaUrobilinogen Qn (U)0.2 {Tyler'U}/dLNormal0.2 - 1.0The [facility] HospitalComment on above:Performed By: #### URCX #### [facility] [address] [place] [address] Dr. Juan Jose BandaLIPASEon 65-45-1502Ooline [Catalytic activity/Vol]77.0 U/LNormal 73.0-393.0The [facility] HospitalComment on above:Performed By: #### HIV12 #### [facility] [address] [place] [address] Dr. Juan Jose BandaPREGNANCY URon 79-09-7286VKXUXSLMO, QUALNegativeNormalNEGATIVEUc Medical CenterComment on above:Performed By: #### URCX #### [facility] [address] [place] [address] Dr. Yilan ChangPROF 14(COMP METB)on 47-17-4430Ntunljl [Mass/Vol]4.4 g/dLNormal 3.4-5.0The [facility] HospitalComment on above:Performed By: #### HIV12 #### [facility] [address] [place] [address] Dr. Juan Jose BandaAlbumin/Globulin [Mass ratio]1.5 {ratio}NormalThe [facility] HospitalComment on above:Performed By: #### HIV12 #### [facility] [address] [place] [address] Dr. Juan Jose GregoryP [Catalytic activity/Vol]97 U/AFkdahd40-390Kha [facility] HospitalComment on above:Performed By: #### HIV12 #### [facility] [address] [place] [address] Dr. Juan Jose Stafford [Catalytic activity/Vol]16 U/NRbivtz54-73Pjl [facility] HospitalComment on above:Performed By: #### HIV12 #### [facility] [address] [place] [address] Dr. Juan Jose Mcmahon gap [Moles/Vol]15.4 mmol/LNormalThe [facility] Comment on above:Performed By: #### HIV12 #### [facility] [address] [place] [address] Dr. Juan Jose BandaAST [Catalytic activity/Vol]19 U/SOssajx77-39Kfz [facility] HospitalComment on above:Performed By: #### HIV12 #### [facility] [address] [place] [address] Dr. Juan Jose BandaBilirubin [Mass/Vol]0.9 mg/dLNormal0.2-1.0The [facility] Comment on above:Performed By: #### HIV12 #### [facility] [address] [place] [address] Dr. Juan Jose BandaCalcium [Mass/Vol]9.2 mg/dLNormal8.5-10.1The [facility] Comment on above:Performed By: #### HIV12 #### [facility] [address] [place] [address] Dr. Juan Jose BandaChloride [Moles/Vol]107 mmol/UHvicmb31-897SisUc Medical Center Comment on above:Performed By: #### HIV12 #### [facility] [address] [address] [address] Juan Jose BandaCO2 [Moles/Vol]22.2 mmol/BPauyvq61.0-32.0[facility] Comment on above:Performed By: #### HIV12 #### [facility] [address] [address] [address] Juan Jose BandaCreatinine [Mass/Vol]0.94 mg/dLNormal0.55-1.02The [facility] HospitalComment on above:Performed By: #### HIV12 #### [facility] [address] [place] [address] Dr. Juan Jose FaustGFR-AF PALESTINIAN>60Normal>=60The [facility] HospitalComment on above:Performed By: #### HIV12 #### [facility] [address] [place] [address] Dr. Juan Jose FaustGFR-NON AF PALESTINIAN>60Normal>=60The [facility] HospitalComment on above:Performed By: #### HIV12 #### [facility] [address] [place] [address] Dr. Juan Jose BandaGlobulin (S) [Mass/Vol]2.9 g/dLNormalThe [facility] HospitalComment on above:Performed By: #### HIV12 #### [facility] [address] [place] [address] Dr. Juan oJse BandaGlucose [Mass/Vol]93 mg/vSVsmqwn82-510GbtUc Medical Center Comment on above:Performed By: #### HIV12 #### [facility] [address] [place] [address] Dr. Juan Jose BandaPotassium [Moles/Vol]3.6 mmol/LNormal3.5-5.1The [facility] Comment on above:Performed By: #### HIV12 #### [facility] [address] [place] [address] Dr. Juan Jose BandaProtein [Mass/Vol]7.3 g/dLNormal6.4-8.2[facility] Comment on above:Performed By: #### HIV12 #### [facility] [address] [address] [address] Juan Jose BandaSodium [Moles/Vol]141 mmol/VIzhqrq602-810Zur [facility] Comment on above:Performed By: #### HIV12 #### [facility] [address] [address] [address] Juan Jose BandaUrea nitrogen [Mass/Vol]14.0 mg/dLNormal6.4-19.3The [facility] HospitalComment on above:Performed By: #### HIV12 #### [facility] [address] [address] [address] Juan Jose Thompson nitrogen/Creatinine [Mass ratio]14.9 mg/mgNormalThe [facility] HospitalComment on above:Performed By: #### HIV12 #### [facility] [address] [address] [address] Juan Jose BandaHCG-BETA SUBUNIT QUANTon 49-30-7419rCV,Beta Subunit,Qnt,Serum<1 NormalThe [facility] HospitalComment on above:Result Comment: Female (Non- ) 0 - 5 (Postmenopausal) 0 - 8 . Female () Weeks of Gestation 3 6 - 71 4 10 - 750 5 217 - 7138 6 158 - 43072 7 [phone] [phone] 8 09094 -003582 9 [phone] -[phone] 10 98787 -301998 12 52113 -395984 14 89920 - 36548 15 17058 - 31354 16 0592 - 54681 17 0343 - 03528 18 2984 - 59997 Serena ECLIA methodologyPerformed By: #### RPRQ #### [facility] [address] [place], [place] [id number] Dr. Juan Jose Banda Vital Signs Date TimeVital SignValuePerforming PwxhadjtjOzvbgqca17-30-3217 08:55-0500Body oljkoa65.16 kgRashard Burns MD Work Phone: [facility]11-10-2025 08:55-0500 Diastolic blood mm[Hg]Rashard Burns MD Work Phone: [phone]11-10-2025 08:55-0500 Heart rate83 /Mg Burns MD Work Phone: [phone]11-10-2025 08:55-0500 SaO2% (BldA) [Mass fraction]95 %Rashard Burns MD Work Phone: [phone]11-10-2025 08:55-0500 Systolic blood kfyvfuab629 mm[Hg]Rashard Burns MD Work Phone: [phone]11-03-2025 16:03-0500 Body mass index (BMI) [Ratio]26.63 kg/m2Amy Poly PA Work Phone: [facility]Mtpsfkvvvz82-33-5633 16:03-0500Body gxbids45.84 kgAmy Poly PA Work Phone: [phone] [place], [place] [address]Myfqxmbhyk25-58-7865 16:03-0500Diastolic blood jhwsxhju67 mm[Hg]Gogo Pang PA Work Phone: [phone] [place], [place] [address]Ppxqiwxiyh76-92-8437 16:03-0500Systolic blood pqcopiwg450 mm[Hg]Gogo Pang PA Work Phone: [phone] [place], [place] [address]Cnizzvgxjo43-36-6749 16:15-0400Body mass index (BMI) [Ratio]25.89 kg/d6Ltfvl Yasmin DO Work Phone: [phone] [place], [place] [address]Qqcijivswr07-80-9508 16:15-0400Body fboroy70.76 kgCorey Yasmin DO Work Phone: [phone] [place], [place] [address]Azlohnrbon83-58-0903 16:15-0400Diastolic blood rtucnlma18 mm[Hg]Wolfgang Yasmin DO Work Phone: 1([phone])901-[address] [place], [place] [address]Yczydrpfkn68-84-8785 16:15-0400Systolic blood qeeuqsje397 mm[Hg]Wolfgang Yasmin DO Work Phone: 1(025)044-[address] [place], [place] [address]Nulbbpmluj20-81-1001 15:50-0400Body mass index (BMI) [Ratio]24.99 kg/o6FvordzqoElvia Gustafsonly GEAR CODING MACHINE OPERATOR Work Phone: 1(891)604-[address] [place] [address]-06-2025 15:50-0400Body baqtta85.22 kgKrpoojaa Rajinder GEAR CODING MACHINE OPERATOR Work Phone: 1(545)542-[address] [place] [address]-06-2025 15:50-0400Diastolic blood czageyrq15 mm[Hg]Elvia Rajinder GEAR CODING MACHINE OPERATOR Work Phone: 1(384)[address] [place], [place] [address]2410-06-2025 15:50-0400Systolic blood ixrrrvcv323 mm[Hg]Elvia Rajinder GEAR CODING MACHINE OPERATOR Work Phone: 1(341)[address] [place], [place] [address]2409-22-2025 15:42-0400Body mass index (BMI) [Ratio]24.37 kg/l5Ssphb Yasmin DO Work Phone: 1(231)[facility] [place], [place] [address]Tiznuzwtar12-60-1449 15:42-0400Body kvwasg69.49 kgCorey Yasmin DO Work Phone: 1(686)[facility] [place], [place] [address]Axmxfqowwy59-10-9615 15:42-0400Diastolic blood snvwsoek76 mm[Hg]Wolfgang Yasmin DO Work Phone: 1(759)[facility] [place] [address]-22-2025 15:42-0400Systolic blood htbryfku863 mm[Hg]Wolfgang Yasmin DO Work Phone: 1(685)[facility] [place], [place] [address]Qsqvfzxxxd22-94-4039 15:25-0400Body mass index (BMI) [Ratio]24.45 kg/l8NwxfxpmzElvia Montoyaerly GEAR CODING MACHINE OPERATOR Work Phone: 1(830)[address] [place] [address]-10-2025 15:25-0400Body .72 kgKrpoojaa Rajinder GEAR CODING MACHINE OPERATOR Work Phone: 1(818)[address] [place] [address]-10-2025 15:25-0400Diastolic blood ievkfpxa00 mm[Hg]Elvia Rajinder GEAR CODING MACHINE OPERATOR Work Phone: 1(799)[facility] [place] [address]-10-2025 15:25-0400Systolic blood ymldkdqz949 mm[Hg]Elvia Rajinder GEAR CODING MACHINE OPERATOR Work Phone: 1(597)892-[address] [place], [place] [address]Rdojahcouz90-20-5968 15:58-0400Body mass index (BMI) [Ratio]23.53 kg/e8Ymmuy Yasmin DO Work Phone: 1(099)064-[address] [place], [place] [address]Lmfajacrcw90-31-8503 15:58-0400Body coxhmi38.13 kgCorey Yasmin DO Work Phone: 1(709)162-[address] [place], [place] [address]Ahofrwkyds13-38-7241 15:58-0400Diastolic blood horyxwqm65 mm[Hg]Wolfgang Yasmin DO Work Phone: 1(410)177-[address] [place], [place] [address]Pfpqandmta54-35-7718 15:58-0400Systolic blood wukovcay853 mm[Hg]Wolfgang Yasmin DO Work Phone: 1(332)[address] [place], [place] [address]2407-21-2025 15:21-0400Body mass index (BMI) [Ratio]23.69 kg/y0Ypduv Yasmin DO Work Phone: 1(775)[facility] [place], [place] [address]Arkewqalei55-23-1874 15:21-0400Body yuvgrr13.59 kgCorey Yasmin DO Work Phone: 1(331)[facility] [place], [place] [address]Qkmjutezfr48-98-6681 15:21-0400Diastolic blood fsxpduzz20 mm[Hg]Wolfgang Yasmin DO Work Phone: 1(427)[facility] [place], [place] [address]Uvzbrmwyuu06-61-5695 15:21-0400Systolic blood fbccyxlr566 mm[Hg]Wolfgang Yasmin DO Work Phone: 1(381)[address] [place], [place] [address]2405-27-2025 13:43-0400Body mass index (BMI) [Ratio]21.95 kg/l0Ybsvi Yasmin DO Work Phone: 1(328)[address] [place], [place] [address]2405-27-2025 13:43-0400Body qppscy77.69 kgCorey Yasmin DO Work Phone: 1(966)[facility] [place], [place] [address]Eqpqhiyemn75-70-9131 13:43-0400Diastolic blood qvqehreb18 mm[Hg]Wolfgang Yasmin DO Work Phone: 1(930)838-[address] [place], [place] [address]Ihybuahfhf60-08-5655 13:43-0400Systolic blood nffzizrv396 mm[Hg]Wolfgang Yasmin DO Work Phone: [facility] 13:24-0400Body mass index (BMI) [Ratio]22.11 kg/m2[facility]05-01-2025 13:24-0400Body pkhyon22.14 [facility] 13:24-0400Diastolic blood xcwfonhi40 mm[Hg][facility]05-01-2025 13:24-0400Systolic blood wehodlas288 mm[Hg][facility]04-03-2025 11:15-0400Body mass index (BMI) [Ratio]21.69 kg/a8Ylngw Yasmin Work Phone: [facility] HospitalXfyfqbtgqm96-15-7900 11:15-0400Body zvbyrf58.96 kgWolfgang Hoffman DO Work Phone: [facility] HospitalBhkstlgceq14-37-3322 11:15-0400Diastolic blood piuvxywg10 mm[Hg]Wolfgang Hoffman DO Work Phone: [facility] HospitalVlxfwewfsm48-45-2293 11:15-0400Systolic blood wfwkviqz508 mm[Hg]Wolfgang Hoffman DO Work Phone: [facility] HospitalHjvpbwtgoj81-01-0757 10:03-0400Body ergegk187.3 cmViki Patel TECHNICAL SUPPORT ENGINEER-CHAIR TRIMMER Work Phone: [facility]03-12-2024 10:03-0400Body mass index (BMI) [Ratio]19.73 kg/n5YgqwabkViki Patel TECHNICAL SUPPORT ENGINEER-CHAIR TRIMMER Work Phone: [facility]03-12-2024 10:03-0400Body .6 kgViki Patel TECHNICAL SUPPORT ENGINEER-CHAIR TRIMMER Work Phone: [facility]03-12-2024 10:03-0400Diastolic blood llvbjemd86 mm[Hg]Viki Patel TECHNICAL SUPPORT ENGINEER-CHAIR TRIMMER Work Phone: [facility]03-12-2024 10:03-0400Heart rate 74 /minViki Patel TECHNICAL SUPPORT ENGINEER-CHAIR TRIMMER Work Phone: [facility]03-12-2024 10:03-0400Systolic blood mm[Hg]Viki Patel TECHNICAL SUPPORT ENGINEER-CHAIR TRIMMER Work Phone: [facility]02-21-2024 09:20-0500Body wfleaq986.3 [facility]02-21-2024 09:20-0500Body mass index (BMI) [Ratio]19.64 kg/m2Pmh [address] [place], [place] [address]-21-2024 09:20-0500Body knctaf89.[address] [place] [address] Encounters Encounter DateEncounter TypeCare ProviderFacilityStart: 06-17-2025 End: 87-89-3027kqnhzfbitfUqcdaoq M Hoy MD Work Phone: -[facility] [place]vueStart: 06-17-2025 End: 20-84-1837Qjthjpp encounter procedureChristopher Nishant Zambrano DO-[facility] [place] Work Phone: Start: 06-10-2025 End: 14-21-3940nvjawljhapAZN RAMEYNot AvailableStart: 06-10-2025 End: 94-36-2166Vfaltn outpatient visit 15 minutesAmy Poly MARTINEZ Work Phone: [facility] [place] OBGYNComment on above:Third trimester ([facility]); 35 weeks gestation of ([facility]); Psychogenic nonepileptic seizureStart: 06-10-2025 End: 08-74-4187Qxpafgebs Result EncounterGogo MARTINEZ Work Phone: [facility] External Department UnsolicitedStart: 06-10-2025 End: 58-14-9263Jwomubucs Result EncounterGogo MARTINEZ Work Phone: noMS External Department UnsolicitedStart: 05-27-2025 End: 37-74-5643Gkubvs outpatient visit 15 minutesWolfgang Hoffman DO Work Phone: [facility] [place] OBGYNComment on above: size inconsistent with dates ([facility]) (Primary Dx); 33 weeks gestation of ([facility]); Third trimester ([facility]); Psychogenic nonepileptic seizureStart: 05-27-2025 End: 42-79-1556waeekzesokQRSZA FAZIONot AvailableStart: 05-27-2025 End: 55-74-5081Szkuie flowsheetCorey Yasmin DO Work Phone: [facility] [place] OBGYNStart: 05-27-2025 End: 10-82-6280Aktjnj flowsheetCorey Yasmin DO Work Phone: [facility] [place] OBGYNStart: 05-13-2025 End: 98-72-4943Qdgigy outpatient visit 15 minutesElvia Calvillo GEAR CODING MACHINE OPERATOR Work Phone: [facility] [place] OBGYNComment on above:31 weeks gestation of ([facility]); Third trimester ([facility])Start: 05-13-2025 End: 05-89-0092nhnwpvqveiISMUKSBW EBERLYNot AvailableStart: 04-30-2025 End: 95-19-1128Auddmlysw Result EncounterCorey Yasmin DO Work Phone: [facility] External Department UnsolicitedStart: 04-30-2025 End: 84-18-7716Beruapurv Result EncounterCorey Yasmin DO Work Phone: NOXH External Department UnsolicitedStart: 04-29-2025 End: 82-70-2469Xyxhag outpatient visit 15 minutesCorey Yasmin DO Work Phone: [facility] [place] OBGYNComment on above:Third trimester ([facility]); 29 weeks gestation of ([facility]); Psychogenic nonepileptic seizure ; Diabetes mellitus screeningStart: 04-29-2025 End: 55-27-6881doejoyvzjiNKMOV FAZIONot AvailableStart: 04-29-2025 End: 79-11-3443Uyvbhq flowsheetCorey Yasmin DO Work Phone: [facility] [place] OBGYNStart: 04-29-2025 End: 89-23-7047Eupwiu flowsheetCorey Yasmin DO Work Phone: [facility] [place] OBGYNStart: 04-17-2025 End: 76-35-6609ptfgzjczftOYNGBLXY EBERLYNot AvailableStart: 04-17-2025 End: 59-20-0027Yjaadd outpatient visit 15 minutesElvia Calvillo NP Work Phone: [facility] [place] OBGYNComment on above:Third trimester ([facility]); 28 weeks gestation of ([facility])Start: 04-17-2025 End: 27-01-2378Hgbfzx Robert Calvillo NP Work Phone: [facility] [place] OBGYNStart: 04-17-2025 End: 60-05-6485Rdobbo Robert Calvillo NP Work Phone: [facility] [place] OBGYNStart: 04-03-2025 End: 33-79-1460qkljwrqpquYZVXM FAZIONot AvailableStart: 04-03-2025 End: 21-91-8029Tbouiu outpatient visit 15 minutesCorey Yasmin DO Work Phone: [facility] [place] OBGYNComment on above:Anxiety, generalized (Primary Dx); Second trimester ([facility]); 26 weeks gestation of ([facility]); History of psychogenic nonepileptic seizureStart: 04-03-2025 End: 61-36-8584Oyzlsh flowsheetCorey Yasmin DO Work Phone: [facility] [place] OBGYNStart: 04-03-2025 End: 27-64-8921Olpcda flowsheetCorey Yasmin DO Work Phone: [facility] [place] OBGYNStart: 03-20-2025 End: 66-91-7839Brlkbw outpatient visit 15 minutesGogo MARTINEZ Work Phone: [facility] [place] OBGYNComment on above:Second trimester ([facility]); 24 weeks gestation of ([facility]); Diabetes mellitus screening; Yeast infection; BV (bacterial vaginosis); Urinary tract infection without hematuria, site unspecifiedStart: 03-20-2025 End: 55-27-7211zermnluidrIQM Tony AvailableStart: 03-20-2025 End: 48-98-4961Xouxfy flowsScooby MARTINEZ Work Phone: [facility] [place] OBGYNStart: 03-20-2025 End: 08-84-4867Jeepsi flowsheetGogo MARTINEZ Work Phone: [facility] [place] OBGYNStart: 02-25-2025 End: 89-81-6249Sijsiq outpatient visit 15 minutesCorey Yasmin DO Work Phone: [facility] BCP OBComment on above:Second trimester ([facility]); 20 weeks gestation of ([facility])Start: 02-25-2025 End: 15-00-0280zituoukybtWQXLU FAZIONot AvailableStart: 01-29-2025 End: 98-73-5238Hunstl flowsScooby MARTINEZ Work Phone: [facility] BCP OBStart: 01-29-2025 End: 95-40-3335Ymqtqd flowsScooby MARTINEZ Work Phone: NOFN BCP OBStart: 01-29-2025 End: 60-02-2540Dufxjfogu Result EncounterGogo MARTINEZ Work Phone: [facility] External Department UnsolicitedStart: 01-29-2025 End: 95-60-5266Uusdwqot Result EncounterGogo MARTINEZ Work Phone: [facility] External Department UnsolicitedStart: 01-29-2025 End: 62-21-1310Mcmjiy outpatient visit 15 minutesGogo MARTINEZ Work Phone: [facility] BCP OBComment on above:Well woman exam with routine gynecological exam; Second trimester ([facility]); 16 weeks gestation of ([facility]); Vaginal discharge; STD exposure; Screening, , for anatomic survey ([facility])Start: 01-29-2025 End: 77-01-9014Onwfbvz encounter procedureAmy Poly MARTINEZ Work Phone: [facility] Work Phone: Start: 01-29-2025 End: 06-95-3332qpfaeybnipPEU RAMEYNot AvailableStart: 01-01-2025 End: 36-00-5404Xggnii flowsheetCorey Yasmin DO Work Phone: [facility] BCP OBStart: 01-01-2025 End: 06-68-6954Vgvkny flowsheetCorey Yasmin DO Work Phone: [facility] BCP OBStart: 01-01-2025 End: 52-08-0859Fqszhp outpatient visit 15 minutesCorey Yasmin DO Work Phone: [facility] BCP OBComment on above:First trimester ; 12 weeks gestation of ; History of psychogenic nonepileptic seizureStart: 01-01-2025 End: 70-63-2156hurtxcyikyJQALL FAZIONot AvailableStart: 01-32-0778smqggfwcto Shivam Lucerocility:[facility] Centertart: 12-07-2024 End: 14-08-6392Oacxlidid Result EncounterCorey Yasmin DO Work Phone: noMS External Department UnsolicitedStart: 12-07-2024 End: 46-98-4768Rhdufogib Result EncounterCorey Yasmin DO Work Phone: [facility] External Department UnsolicitedStart: 12-06-2024 End: 20-12-9038Vfqqqg outpatient visit 5 minutesNoms Bcp Ob Yasmin NurseNOMS BCP OBComment on above:GA: 9l6yCbxut: 12-06-2024 End: 87-14-0290udwdmooabcBZSEO FAZIONot AvailableStart: 11-08-2024 End: 65-46-6754Zurojy flowsheetCorey Yasmin DO Work Phone: noMS BCP OBStart: 11-08-2024 End: 01-41-1565Yaropv flowsheetCorey Yasmin DO Work Phone: [facility] BCP OBStart: 11-08-2024 End: 10-05-7770Jemjud outpatient visit 15 minutesCorey Yasmin DO Work Phone: [facility] BCP OBComment on above:PCOS (polycystic ovarian syndrome) (Primary Dx)Start: 11-08-2024 End: 48-28-1530pepuykenijXYMUV FAZIONot AvailableStart: 11-02-2024 End: 93-58-5131Ixpusriaq Result EncounterCorey Yasmin DO Work Phone: [facility] External Department UnsolicitedStart: 11-02-2024 End: 39-71-5048Pzxiqrehd Result EncounterCorey Yasmin DO Work Phone: [facility] External Department UnsolicitedStart: 10-01-2024 End: 52-04-1260Agrpexlex Result EncounterCorey Yasmin DO Work Phone: [facility] External Department UnsolicitedStart: 10-01-2024 End: 88-46-9914Sxpzpplpu Result EncounterCorey Yasmin DO Work Phone: [facility] External Department UnsolicitedStart: 09-25-2024 End: 04-13-8605Zavfqd outpatient visit 15 minutesCorey Yasmin DO Work Phone: [facility] BCP OBComment on above:PCOS (polycystic ovarian syndrome) (Primary Dx)Start: 09-25-2024 End: 86-12-6661akzibpmqcoUAALS FAZIONot AvailableStart: 09-25-2024 End: 70-89-5389Tgeolu flowsheetCorey Yasmin DO Work Phone: [facility] BCP OBStart: 09-25-2024 End: 97-36-5121Tnbews flowsheetCorey Yasmin DO Work Phone: [facility] BCP OBStart: 56-31-8440Kchqpjmdj encounterTessa Roberts CMAProMedica Physicians General SurgeryStart: 10-18-2023 End: 84-98-4919ediloyghgjGWLZWQR Airam KELSYPINAC[facility] Start: 10-18-2023 End: 33-99-7610Arbsgb follow up visit related to original Sonal Patel TECHNICAL SUPPORT ENGINEER-CHAIR TRIMMER Work Phone: [facility] Physicians General SurgeryComment on above: Status post laparoscopic cholecystectomy (Primary Dx)Start: 10-03-2023 End: 58-56-9964Khmhqnkhty and management of inpatientCleveland Clinictart: 10-03-2023 End: 74-73-3646Rxvfqcvqvi and management of inpatientBon Secours Mary Immaculate Hospitaltart: 09-28-2023 End: 75-57-0303oiyqoxmplnCHCFYJohn Muir Concord Medical Centertart: 21-33-1000Lfcolkvbx for other preprocedural examinationMarietta Osteopathic Clinictart: 09-28-2023 End: 48-35-2035Phidiqu encounter procedureKindred Hospital [facility] Pre-Admission Testing [address] [place] [address] - Pre AdmitComment on above:Preop examination (Primary Dx); Asthma, unspecified asthma severity, unspecified whether complicated, unspecified whether persistentStart: 09-28-2023 End: 75-21-5853Bauhskxpzrtcd examination done[address] Streettart: 09-27-2023 End: 47-53-4344ygivhqesdlWSMARMHGAUUSt. Anthony Hospital [facility] Start: 09-27-2023 End: 65-70-8944Mycwfv outpatient new 30 minutesAlo Morgan MD Work Phone: [facility] General SurgeryComment on above: Biliary colic (Primary Dx)Start: 97-14-6349Kmkidshru encounterAlo Morgan MD Work Phone: [facility] General SurgeryStart: 08-30-2023 End: 97-66-2544Guuccapmpc and management of inpatientTrumbull Memorial Hospitaltart: 98-76-9345pnzabeqxaeWRETIWQSelect [facility] Ambulatory PPGStart: 77-66-6431Ovvyhgnpg encounterLauren Venia CMAProMediwy Physicians General SurgeryStart: 50-47-6323zboejwyuxpYTKKYTL [facility] Ambulatory PPGStart: 62-76-2927Cumoxnsjl encounterMichael Tab Sparrows DO Work Phone: [facility] Physicians [facility] SurgeryStart: 07-29-2023 ambulatoryDouglas HoyFacility:[facility] CenterkStart: 07-26-2023 End: 50-69-2303pwxrvdmnpsAldnynk HoyFacility:[facility] CenterkStart: 07-26-2023 End: 57-06-1672Sbolfdv encounter procedureMichael R NILL [phone]-DzpllParkview Health [facility] General Surgery [place] Start: 14-61-1913zhwptpuummUtigreu HoyFacility:[facility] CenterkStart: 74-59-2745nujumyovwcMiyvvcf HoyFacility: BellevueStart: 63-10-6358Uuhrylwcig and management of inpatientDR WOLFGANG YASMIN .Facility:H1 Start: 00-21-8750Irdrtmjnqp and management of inpatientDR WOLFGANG YASMIN . Facility:I2Yikkj: 18-41-7000lvnyifikoyTM WOLFGANG YASMIN .Facility:Z7Hosyr: 01-01-2023 End: 64-58-0971blcpvtowhsWX WOLFGANG YASMIN .Facility:N2Rqqtm: 12-31-2022 End: 27-58-3625cwzxipxisnPX WOLFGANG YASMIN .Facility:L5Tcihw: 12-28-2022 End: 52-87-6319qedkgnfojoDU WOLFGANG YASMIN .Facility:S2Dbdwd: 12-24-2022 End: 81-90-6072ougcccxvloCU WOLFGANG YASMIN .Facility:O4Cgjdj: 12-22-2022 End: 98-38-2258mprgfohiugTV WOLFGANG YASMIN .Facility:K6Fmglt: 12-20-2022 End: 68-22-1032xegnuasmkfHB WOLFGANG YASMIN .Facility:U9Vdsqi: 12-17-2022 End: 47-44-4034cnphrdjtbtBD JAYSON HERNÁNDEZ .Facility:L0Sqtap: 11-04-2022 End: 94-26-2139iovpcenyjlOWVYRA DIAB .Facility:A0Bdbrd: 10-01-2022 End: 63-45-2132gmlpfekqexDL WOLFGANG YASMIN .Facility:B0Dhsgh: 09-28-2022 End: 12-39-9355igddrjgbvaBC LUISA ARCHIBALDFacility:G1Vxhes: 08-25-2022 End: 80-37-0832tmggulyvfbXKL POLY .Facility:N7Ahkcf: 08-24-2022 End: 79-38-0358ppaoaijrxuOW WOLFGANG YASMIN .Facility:Z8Fbpqe: 06-25-2022 End: 08-00-9051euismqdndnOI RASHARD HOY .Facility:C2Cczdt: 06-20-2022 End: 01-36-0812yxdblwaysfQFVAKF RADHA .Facility:K4Gjqfs: 06-18-2022 End: 43-60-2532oicssjlvkhLG WOLFGANG YASMIN .Facility:A9Pgemy: 06-02-2022 End: 70-38-9573prpuneuasmCK GUSTAVO R SMITHFacility:F6Cmtet: 05-25-2022 End: 87-82-5480hprzgrqfikVRODQ PARKERFacility:S4Slwro: 04-29-2022 End: 61-21-2972tcvfhlixzkPQ GUSTAVO R SMITHFacility:S1Juuwq: 04-10-2022 End: 62-98-3444zsicpvvhitZKYCY PARKERFacility:H8Hocvh: 04-07-2022 End: 94-11-7494idmiyfpagvCK GUSTAVO R SMITHFacility:B0Kowbn: 04-07-2022 End: 87-05-9405gngxngkxslSQWJG PARKERFacility:Y0Foqbj: 02-22-2022 End: 75-10-3304zudqonoypcNQ RASHARD HOY .Facility:[address] DateProcedureProcedure DetailPerforming ClinicianStart: 07-77-0193Pxnam dip stick/tablet rgnt non-auto w/o micrscpAmy Poly MARTINEZ Work Phone: Start: 57-60-7094PYVCY GP B CULTURE+RFLXAmy Poly MARTINEZ Work Phone: Start: 70-55-9012Wnzdg dip stick/tablet rgnt non-auto w/o micrscpCorey Yasmin DO Work Phone: Start: 75-78-8910Veivo dip stick/tablet rgnt non-auto w/o micrscpKristina Rajinder GEAR CODING MACHINE OPERATOR Work Phone: Start: 06-53-1571XNS CBC WITH AUTO DIFFCorey Yasmin DO Work Phone: Start: 69-28-5258Crwcl dip stick/tablet rgnt non-auto w/o micrscpCorey Yasmin DO Work Phone: Start: 40-97-4893Jiivw dip stick/tablet rgnt non-auto w/o micrscpKristina Rajinder GEAR CODING MACHINE OPERATOR Work Phone: Start: 53-56-2025Claqp dip stick/tablet rgnt non-auto w/o micrscpKristina Rajinder GEAR CODING MACHINE OPERATOR Work Phone: Start: 65-92-9328Ycxys dip stick/tablet rgnt non-auto w/o micrscpCorey Yasmin DO Work Phone: Start: 92-11-2448UOWBFLIDQ VAGINITIS (HTRX)Gogo MARTINEZ Work Phone: Start: 72-12-6430TDR,APTIMA HPV,AGE GDLNAmy Poly MARTINEZ Work Phone: Start: 23-73-7162TQK TESTCorey Yasmin DO Work Phone: Start: 24-82-4550Uoonu dip stick/tablet rgnt non-auto w/o micrscpCorey Yasmin DO Work Phone: Start: 32-20-3926ZYB PREG QUANT HCGCorey Yasmin DO Work Phone: Start: 87-54-7279UKX CBC WITH AUTO DIFFCorey Yasmin ZHOU Work Phone: appendectomyMichael NILL History of cholecystectomyStatus post laparoscopic cholecystectomyJedanyelle Patel TECHNICAL SUPPORT ENGINEER-CHAIR TRIMMER Work Phone: Plan of Treatment DateCare ActivityDetailAuthorStart: 56-01-4359FZqZ,Tdap and Td Vaccines (7 - Td or Tdap)DTaP,Tdap and Td Vaccines (7 - Td or Tdap)[facility]Start: 07-17-2025 End: 40-06-5202lpktyexece30/10/2025 3:40 PM EST Visit PIYUSH COSTA [address] [place], [id number] Wolfgang Hoffman, DO [address] [facility] [address] [place] [address] [facility] OBGYNStart: 06-19-2025 End: 80-02-1785Tlaljza encounter yxrqsibfq83/12/2025 3:30 PM EST Routine NOMLisa COSTA [address] [place], [id number] Wolfgang Hoffman, DO [address] [facility] [address] [place] [address] [facility] OBGYNStart: 06-10-2025 End: 07-14-6546Ichblmh encounter rryuknkut08/03/2025 3:50 PM EST Routine NOMLisa COSTA [address] [place], [id number] Gogo Pang, MICHELLE [address] [facility] [address] [place] [address] [facility] OBGYNStart: 06-10-2025 End: 40-22-2639AHLMUUF, GROUP B STREP WITH SUSCEPTIBLITYCULTURE, GROUP B STREP WITH SUSCEPTIBLITY Lab Routine Third trimester ([facility]) Expected: 06/10/2025, Expires: 06/10/2026[facility] Work Phone: comment on above:Expected: 06/10/2025, Expires: 06/10/2026Start: 05-27-2025 End: 57-74-4478Tdkgayz encounter procedureNOMS Toño OBGYNComment on above: ArrivedStart: 05-27-2025 End: 41-32-6878ZU for pregnancyUS OB follow up transabdominal approach Imaging Routine size inconsistent with dates ([facility]) Expected: 05/27/2025, Expires: 09/27/2025[facility] Work Phone: comment on above:Expected: 05/27/2025, Expires: 09/27/2025Start: 05-15-2025 End: 97-97-7432Cbqlkem encounter wqhyskkun56/08/2025 3:40 PM EDT Routine [facility] [address] [place], [id number] Elvia Calvillo, GEAR CODING MACHINE OPERATOR [address] [facility] [address] [place] [phone] [facility] OBGYNStart: 04-29-2025 End: 79-13-2485Dzvzelm encounter afgraulrz90/22/2025 3:20 PM EDT Routine [facility] [address] [place], [id number] Wolfgang Hoffman DO [address] [facility] [place] [address] ArrivedNOMS Toño OBGYNComment on above:ArrivedStart: 04-29-2025 End: 26-77-8837VBF W Auto Differential panel - BloodCBC and differential Lab Routine Diabetes mellitus screening Expected: 04/29/2025 (Approximate), Expires: 04/29/2026[facility] Work Phone: comment on above:Expected: 04/29/2025 (Approximate), Expires: 04/29/2026Start: 04-17-2025 End: 67-76-4175Qcvpgld encounter /10/2025 3:40 PM EDT Routine [facility] [place] [facility] [address] [id number] Wolfgang Hoffman, [address] [place] [address] [facility] [place] [facility]BGYNStart: 40-10-6885SKEGR- 19 Vaccine ( season)COVID-19 Vaccine ( season)[facility] HealthcareStart: 72-95-9105Xalnqucgr vaccinationInfluenza Vaccine (#1)[facility] HealthcareStart: 04-03-2025 End: 38-66-4568Vqhqkyx encounter pcbdytedd85/27/2025 3:40 PM EDT Routine [facility] [place] [facility] [address] [place], [id number] Wolfgang Hoffman, [address] [facility] [place] [address] [facility] [place] [facility]BGYNStart: 03-20-2025 End: 38-15-5396Hpskoqa encounter lqzynpglu58/13/2025 3:40 PM EDT Routine [facility] [address] [place], [id number] Gogo Pang PA [address] [facility] [place] [address] ArrivedNOM[facility] [place] OBGYNComment on above:ArrivedStart: 03-20-2025 End: 46-20-2201IKQ panel - Blood by Automated countCBC Lab Routine Diabetes mellitus screening Expected: 03/20/2025 (Approximate), Expires: 03/20/2026[facility] Work Phone: comment on above:Expected: 03/20/2025 (Approximate), Expires: 03/20/2026Start: 03-20-2025 End: 64-97-7240Ogqtosgydkm of glucose 1 hour after glucose challenge for glucose tolerance testGlucose tolerance, 1 hour Lab Routine Diabetes mellitus screening Expected: 03/20/2025 (Approximate), Expires: 03/20/2026[facility] HealthcareComment on above:Expected: 03/20/2025 (Approximate), Expires: 03/20/2026Start: 02-25-2025 End: 82-39-1325Rktgofa encounter djrqeymdr82/21/2025 3:40 PM EDT Routine [facility] [address] [place] [phone] Wolfgang Hoffman, [address] [place] [address] [facility] OBStart: 02-25-2025 End: 63-94-6994Simeiybcdqvn / ancillary services xfousxevvl14/21/2025 2:30 PM EDT Ancillary Procedure [facility] [address] [place] [address] MARCELA F[place], [place] [address] [facility] OBStart: 01-29-2025 End: 45-56-2478Aoyag fetoprotein, maternalAlpha fetoprotein, maternal Lab Routine Second trimester ([facility]) 16 weeks gestation of ([facility]) Expected: 01/29/2025 (Approximate), Expires: 07/31/2025[facility] Comment on above:Expected: 01/29/2025 (Approximate), Expires: 07/31/2025Start: 01-29-2025 End: 29-58-0132PI for pregnancyUS OB 14+ weeks anatomy scan Imaging Routine Second trimester ([facility]) 16 weeks gestation of ([facility]) Screening, , for anatomic survey ([facility]) Expected: 01/29/2025, Expires: 05/01/2025[facility] HealthcareComment on above:Expected: 01/29/2025, Expires: 05/01/2025Start: 01-29-2025 End: 99-22-7229Tnpimlp encounter procedureNOMN BCP OBComment on above:Arrived Start: 01-08-2025 End: 05-71-2811Zvoahsv encounter oehdwzggf12/03/2025 2:10 PM EDT Routine [facility] [address] [facility] [place] [address] Wolfgang Hoffman, DO [address] [place] [address] [place] [address] [facility] OBStart: 01-01-2025 End: 71-23-1151Zyeotmp encounter thgimeuzn48/27/2025 1:40 PM EDT Routine [facility] [address] [facility] [place] [address] Wolfgang Hoffman, DO [address] [place] [address] [place] [address] ArrivedNOMN BCP OBComment on above: ArrivedStart: 12-06-2024 End: 15-44-1135IZO/RhABO/Rh Lab Routine Missed menses , unspecified gestational age Expected: 12/06/2024 (Approximate), Expires: 12/06/2025[facility] HealthcareComment on above:Expected: 12/06/2024 (Approximate), Expires: 12/06/2025Start: 12-06-2024 End: 87-05-5907Devpi type and Indirect antibody screen panel - BloodType and screen Lab Routine Missed menses , unspecified gestational age Expected: 12/06/2024 (Approximate), Expires: 12/06/2025[facility] HealthcareComment on above:Expected: 12/06/2024 (Approximate), Expires: 12/06/2025Start: 12-06-2024 End: 75-92-6547Dijdj of abuse panel - Urine by Screen methodRapid drug screen, urine Lab Routine , unspecified gestational age Encounter for supervision of normal first in first trimester Expected: 12/06/2024 (Approximate), Expires: 12/06/2025[facility] HealthcareComment on above:Expected: 12/06/2024 (Approximate), Expires: 12/06/2025Start: 12-06-2024 End: 48-13-2181lgxqlszivd63/01/2025 1:00 PM EDT Initial [facility] OB [address] [place] [address] [facility] OBStart: 12-06-2024 End: 87-47-2109Rqprqaogexgi / ancillary services fpiwsysjwx38/01/2025 12:30 PM EDT Ancillary Procedure [facility] OB [address] [place], [place] [address] [facility] OBStart: 11-30-2024 End: 59-12-2917ZI Pelvis transvaginalUS OB transvaginal Imaging Routine Missed menses Expected: 11/30/2024, Expires: 03/01/2025[facility] Work Phone: comment on above:Expected: 11/30/2024, Expires: 03/01/2025Start: 11-12-2024 End: 49-74-5887Ussgdjd encounter rkcllmkah38/07/2025 2:00 PM EDT Office Visit [facility] OB [address] [place] [address] Wolfgang Hoffman, DO [address] [place] [address] [facility] OBStart: 11-08-2024 End: 47-54-9054Gvoccok encounter owkgiznnp81/03/2025 11:30 AM EDT Office Visit [facility] OB [address] [place] [phone] Wolfgang Hoffman, DO [address] [place] [address] [facility] OBComment on above:ArrivedStart: 29-05-0935Wigux BMI ScreeningAdult BMI ScreeningProGood Samaritan Hospitalca Health SystemStart: 57-47-3366Jfdrcnw ScreeningTobacco ScreeningCleveland Clinic Euclid Hospitalca Health SystemStart: 01-91-4506Jkrru BMI ScreeningAdult BMI ScreeningProGood Samaritan Hospitalca Health SystemStart: 58-87-6198Ovsuqzy ScreeningTobacco ScreeningCleveland Clinic Euclid Hospitalca Health SystemStart: 56-69-2122Jadmx BMI ScreeningAdult BMI ScreeningProGood Samaritan Hospitalca Health SystemStart: 57-75-7585Zjeugrk ScreeningTobacco ScreeningCleveland Clinic Euclid Hospitalca Health SystemStart: 06-29-7311Vegfkra ScreeningTobacco ScreeningProGood Samaritan Hospitalca Health SystemStart: 09-25-2024 End: 10-90-8593Fwcyvmo encounter /18/2025 3:00 PM EST Office Visit [facility] [address] [facility] [place] [address] Wolfgang Hoffman, DO [address] [place], [place] [id number] ArrivedNOMS BCP OBComment on above:ArrivedStart: 09-25-2024 End: 04-63-9048ZNAKQKZR Lab Routine PCOS (polycystic ovarian syndrome) Expected: 09/25/2024 (Approximate), Expires: 09/25/2025[facility] HealthcareComment on above: Expected: 09/25/2024 (Approximate), Expires: 09/25/2025Start: 09-25-2024 End: 57-19-0819DT PelvisUS Pelvis w/ TV Imaging Routine PCOS (polycystic ovarian syndrome) Expected: 09/25/2024, Expires: 09/25/2025[facility] HealthcareComment on above:Expected: 09/25/2024, Expires: 09/25/2025Start: 10-18-2023 End: 61-51-6917Doezbfe encounter agyodpvsb71/12/2024 10:00 AM EDT Office Visit [facility] [address] [place] [address] Viki Patel, TECHNICAL SUPPORT ENGINEER-CHAIR TRIMMER [address] [place] [address] [facility] SurgeryStart: 10-03-2023 End: 97-06-6909Bdnjrhhhg to same day surgery hmyxwp5810/03/2023 11:00 AM EST - 10/03/2023 12:[address] [facility] [address] [place] [address] Alo Morgan MD [address] [place] [address] DAVINCI CHOLECYSTECTOMY [72802 (CPT )][facility] Comment on above:DAVINCI CHOLECYSTECTOMY [77020 (CPT )]Start: 10-03-2023 End: 50-34-0897Bswvulehmss surg cholecystectomyDAVINCI CHOLECYSTECTOMY biliary colic 10/03/2023 11:00 AM ESTFREMLAFAYETTE REGIONAL [facility] SURGERYStart: 58-68-1561Luretvbgsi hospital visit by ezpdwqqez21/26/2024 11:00 AM EST Hospital Encounter [facility] [address] [place] [address] Alo Morgan MD [address] [place] [address] [facility] SurgeryStart: 09-27-2023 End: 82-67-7608Itfqodu encounter fhpxzarmz90/20/2024 11:00 AM EST [facility] Visit [facility] [address] [place] [address] Alo Morgan MD [address] [place] [address] [facility] SurgeryStart: 08-23-2023 End: 61-23-3964Dfkikqn encounter vakqvvruh03/16/2024 10:45 AM EST Office Visit [facility] [address] [place] [address] Alo Morgan MD [address] [place] [address] [facility] SurgeryStart: 96-07-5109Tardofqep vaccinationInfluenza VaccineSelect Specialty Hospital - Durhamtart: 51-23-8703Rmcpirmivpgc Vaccine: Pediatrics (0 to 5 Years) and At-Risk Patients (6 to 64 Years) (1 of 2 - PCV)Pneumococcal Vaccine: Pediatrics (0 to 5 Years) and At-Risk Patients (6 to 64 Years) (1 of 2 - PCV)[facility] HealthcareStart: 65-40-4688Pbqwm BMI ScreeningAdult BMI ScreeningProRiverside Methodist Hospital SystemStart: 48-10-8119Ulmqfbvxnu ScreeningDepression ScreeningToledo Hospital SystemStart: 13-66-2193Yhrwslu ScreeningTobacco ScreeningSelect Specialty Hospital - Durhamtart: 86-50-3744Untcmlu CounselingTobacco CounselingSumma Health Barberton CampusBacteria identified in Urine by CultureUrine culture Microbiology Routine Missed menses Ordered: 12/06/2024[facility] HealthcareComment on above:Ordered: 12/06/2024acteria identified in Urine by CultureUrine culture Microbiology Routine Urinary tract infection without hematuria, site unspecified Ordered: 03/20/2025[facility] Healthcare Comment on above:Ordered: 5CBC W Auto Differential panel - BloodCBC and differential Lab Routine PCOS (polycystic ovarian syndrome) Ordered: 09/25/2024 [facility] HealthcareComment on above:Ordered: 5CBC W Auto Differential panel - BloodCBC and differential Lab Routine Missed menses , unspecified gestational age Ordered: 12/06/2024[facility] HealthcareComment on above:Ordered: 12/06/2024HLAMYDIA TRACHOMATIS (GENITO/STI)CHLAMYDIA TRACHOMATIS (GENITO/STI) Lab Routine STD exposure Ordered: 01/29/2025[facility] HealthcareComment on above: Ordered: 01/29/2025HLAMYDIA TRACHOMATIS (GENITO/STI)CHLAMYDIA TRACHOMATIS (GENITO/STI) Lab Routine Yeast infection BV (bacterial vaginosis) Ordered: [facility] HealthcareComment on above:Ordered: 03/20/2025ytology Cervical or vaginal smear or scraping studyPap Smear Pathology and Cytology Routine Well woman exam with routine gynecological exam Ordered: 01/29/2025[facility] Work Phone: comment on above:Ordered: 01/29/2025DHEA-sulfateDHEA- sulfate Lab Routine PCOS (polycystic ovarian syndrome) Ordered: 09/25/2024[facility] HealthcareComment on above:Ordered: 09/25/2024Follicle stimulating hormone Follicle stimulating hormone Lab Routine PCOS (polycystic ovarian syndrome) Ordered: 09/25/2024[facility] HealthcareComment on above:Ordered: 09/25/2024hCG, quantitative, pregnancyhCG, quantitative, Lab Routine PCOS (polycystic ovarian syndrome) Ordered: 09/25/2024[facility] Work Phone: comment on above:Ordered: 09/25/2024Hemoglobin A1c/Hemoglobin.total in BloodHemoglobin A1c Lab Routine PCOS (polycystic ovarian syndrome) Ordered: 09/25/2024[facility] HealthcareComment on above:Ordered: 09/25/2024 Hemoglobin A1c/Hemoglobin.total in BloodHemoglobin A1c Lab Routine Missed menses , unspecified gestational age Ordered: 12/06/2024[facility] HealthcareComment on above:Ordered: 12/06/2024Hemoglobin A1c/Hemoglobin.total in BloodHemoglobin A1c Lab Routine Third trimester ([facility]) 28 weeks gestation of ([facility]) Ordered: 04/17/2025[facility] Work Phone: comment on above:Ordered: 04/17/2025Hepatitis B virus surface Ag [Presence] in Serum or Plasma by ImmunoassayHepatitis B surface antigen Lab Routine Missed menses , unspecified gestational age Ordered : 12/06/2024[facility] HealthcareComment on above:Ordered: 12/06/2024Hepatitis C virus Ab [Presence] in Serum or Plasma by ImmunoassayHepatitis C antibody Lab Routine Missed menses , unspecified gestational age Ordered: 12/06/2024[facility] HealthcareComment on above:Ordered: 12/06/2024HIV-1/HIV-2 antigen/antibody combination immunoassayHIV-1 and HIV-2 antibodies Lab Routine Missed menses , unspecified gestational age Ordered: 12/06/2024[facility] HealthcareComment on above:Ordered: 12/06/2024Luteinizing hormoneLuteinizing hormone Lab Routine PCOS (polycystic ovarian syndrome) Ordered: 09/25/2024[facility] HealthcareComment on above:Ordered: 09/25/2024Neisseria gonorrhoeae DNA [Presence] in Unspecified specimen by ISAAC with probe detectionNeisseria gonorrhea DNA probe, direct Lab Routine STD exposure Ordered: 01/29/2025[facility] HealthcareComment on above:Ordered: 01/29/2025Neisseria gonorrhoeae DNA [Presence] in Unspecified specimen by ISAAC with probe detectionNeisseria gonorrhea DNA probe, direct Lab Routine Yeast infection BV (bacterial vaginosis) Ordered:03/20/2025[facility] HealthcareComment on above:Ordered: 03/20/2025Reagin Ab [Presence] in Serum by RPRRPR Lab Routine Missed menses , unspecified gestational age Ordered: 12/06/2024[facility] HealthcareComment on above:Ordered: 12/06/2024Rubella antibody, IgGRubella antibody, IgG Lab Routine Missed menses , unspecified gestational age Ordered: 12/06/2024[facility] HealthcareComment on above:Ordered: 12/06/2024 SURESWAB(R) ADVANCED VAGINITIS PLUS, TMASURESWAB(R) ADVANCED VAGINITIS PLUS, TMA Pathology and Cytology Routine Vaginal discharge Ordered: 01/29/2025[facility] HealthcareComment on above:Ordered: 01/29/2025SURESWAB(R) ADVANCED VAGINITIS PLUS, TMASURESWAB(R) ADVANCED VAGINITIS PLUS, TMA Pathology and Cytology Routine Yeast infection BV (bacterial vaginosis) Ordered: 03/20/2025[facility] Healthcare Comment on above:Ordered: 03/20/2025Thyrotropin [Units/volume] in Serum or PlasmaTSH Lab Routine PCOS (polycystic ovarian syndrome) Ordered: 09/25/2024[facility] Work Phone: comment on above:Ordered: 09/25/2024Thyroxine (T4) free [Mass/volume] in Serum or PlasmaT4, free Lab Routine PCOS (polycystic ovarian syndrome) Ordered: 09/25/2024[facility] HospitalComment on above:Ordered: 09/25/2024 End: 81-31-4314Ufaybilf Procedure / SurgeryUnlisted Procedure / Surgery Procedures Routine Biliary colic 1 Occurrences starting 09/27/2023 until 09/26/2024[facility] Work Phone: Comment on above:1 Occurrences starting 09/27/2023 until 09/26/2024US Pelvis transvaginalUS OB transvaginal Imaging Routine Missed menses 12/06/2024 12:56 PM EDTChristian [facility] Immunizations Immunization DateImmunizationNotesCare MxubhqlfEzqgkskx97-65-0496vesaqmpdu virus vaccine, unspecified formulationLauren Venia [facility] 67-14-2462satmuewox virus vaccine, unspecified formulationMichael Grillis DO Work Phone: [facility] Payers DatePayer CategoryPayerPolicy [id number] Health InsuranceAM[place] Member Subscriber Plan / Payer (Effective 2024- Present) Name: Alfredo Piper Relation to Subscriber: Self Name: Kemi Piper Payer ID: Not on file Group ID: Not on file Type: Not on file Address: [address] [id number] [id number] 2023Medicaid (Managed Care)[employer] [employer] [id number] 2019[place]icaid[place] [id number] 2018-Present [phone] [address] [place] [id number] [id number] 2.16840.1.449398.3.57[id number] 2.16840.1.650532.3.57[id number] 2.840.1.725094.3.57[id number] 2.16840.1.997382.3.579.2.19369-60-4963Scyipvt8765529 2.16.840.1.230030.3.579.2.17020-98-9063Xybffwj0255430 2.16840.1.785537.3.579.2.03268-30-6056Cfjepzi6514610 2.16840.1.332985.3.579.2.65741-88-6695Uurluhj4622674 2.16.840.1.279785.3.579.2.83747-10-1837Ffalysw3579558 2.16840.1.247541.3.579.2.45116-74-4908Tzizcwz3566707 2.16.840.1.762786.3.579.2.65283-63-3314Qfrocgn8805266 2.16840.1.472747.3.579.2.68094-77-5501Egyykej1826970 2.16.840.1.582864.3.579.2.03414-60-2868Pyaqsyx6189250 2.16.840.1.583237.3.579.2.11649-60-4807Ejzdijm6314870 2.16.840.1.160223.3.579.2.28720-26-0078Ahscefk2006742 2.16.840.1.776009.3.579.2.10193-40-4142Hcdsffw4948698 2.16.840.1.507917.3.579.2.72269-98-2836Sdpspwm2837190 2..840.1.418785.3.579.2.23412-55-9803Xvtskgr9125615 2.840.1.878016.3.579.2.66900-84-3774Phqrqzf7682253 2.16.840.1.199390.3.579.2.77098-37-4521Golwlzc7723506 2.16.840.1.590428.3.579.2.08730-06-4031Gceldti2637373 2.840.1.757687.3.579.2.56953-10-6583Xtaddyz0156345 2.16.840.1.094977.3.579.2.92330-14-6553Lyhwyfh2366941 2.16.840.1.829228.3.579.2.67420-33-7223Owcvqql7589864 2.16.840.1.595909.3.579.2.07841-21-7931Mldcdzn9784334 2.16840.1.341136.3.579.2.33500-64-6739Giwvmjr2301612 2.16.840.1.099449.3.579.2.16603-79-0228Fqvibuv3861524 2.16.840.1.872695.3.579.2.02487-84-0223Inrakkf36697154 2.16.840.1.719591.3.579.2.30206-73-9743Wfuwgdu36657250 2.16.840.1.438427.3.579.2.15080-37-2751Hjnzrgg10721136 2.16.840.1.021044.3.579.2.918971-87-2065Fhivfii35452002 2..840.1.938591.3.579.2.487157-19-1053Onkjyrs76632985 2.840.1.280629.3.579.2.746976-38-9451Sysyflq15445763 2.840.1.312899.3.579.2.042037-89-3404Sgyqcaq71914529 2..840.1.759975.3.579.2.679537-05-7950Eerwnhk71206815 2..840.1.968028.3.579.2.215253-52-3986Huphwpx33659114 2.840.1.761495.3.579.2.248262-16-3895Tkhwkfz56622208 2..840.1.474160.3.579.2.312639-22-8368Jlsoflm47266942 2..840.1.092338.3.579.2.249061-39-7129Oftvhma0073820 2.16.840.1.154973.3.579.2.754324-43-5990Gzcyxey2876412 2.16.840.1.941609.3.579.2.619747-26-7621Wlzychu4910307 2.840.1.701736.3.579.2.698659-57-0053Luzzskl8068563 2.840.1.840939.3.579.2.154635-47-4262Esrajdp83889685 2.84.1.837326.3.579.2.558020-23-3509Dkncxdq33205001 2.840.1.796192.3.579.2.423531-70-8983Lvuttlv33183883 2..1.158882.3.579.2.218113-93-0997Vaxaefk28566449 2..1.161134.3.579.2.121614-04-2992Mwoglnj85365328 2..1.498827.3.579.2.279526-96-0966Uhqtzwy67656885 2..1.470343.3.579.2.043685-03-0811Nhyzvoy78254281 2..1.273677.3.579.2.450079-59-4246Hzrltra24727442 2..1.125410.3.579.2.453397-59-7944Sqrebnq13072597 2.840.1.813106.3.579.2.354846-07-8288Apgzvfc83296688 2.0.1.953436.3.579.2.768981-95-6758Eccxwga1053672 2.840.1.008609.3.579.2.653974-60-2912Wmdgdeu6523820 2..1.821446.3.579.2.343499-29-6111Jdisqko5883760 2.16.840.1.304504.3.579.2.905726-05-6267Ppvneah9997088 2.840.1.665102.3.579.2.028268-23-0388Pacvfeb6426603 2.16840.1.065182.3.579.2.307147-65-7094Sclnasu10337471 2.840.1.508260.3.579.2.10409-08-1285Bdpchlv08721171698001-04-4552Fovfzbz 996409153 2.0.1.587380.3.579.2.255Gmgahvu77290203 2.0.1.520276.3.579.2.531 Social History DateTypeDetailFacilityTobacco smoking statusParkview Health [facility] [place] Start: 04-03-2021 End: 68-74-6913Mrq Assigned At BirthFeKettering Memorial Hospitaltart: 04-03-2021 End: 75-98-1986Tidoebd smoking status NHISOccasional tobacco smokerToledo Hospital SystemStart: 04-03-2021 End: 13-65-3731Iyefhpl use and exposureSmokeless tobacco non-userProEliza Coffee Memorial Hospital Health SystemStart: 04-03-2021 End: 83-09-6411Qkzryux intakeLifetime non-drinker (finding)[facility] SystemStart: 04-03-2021 End: 70-66-3580Osgahfk of Social functionProMediwy Health SystemStart: 95-39-8733Ictgsuo InstabilityUnknownPUniversity Medical Center [facility] Health SystemStart: 94-61-9524Lqq Assigned At BirthNot on fileProMediHarrison Community Hospital SystemStart: 31-34-0956Xwuqjxc CommentWill smoke a cigarette if does not have a vapeProMedica Health System History of tobacco useCigarette SmokerProMediwy Health SystemTobacco smoking status NHISTobacco smoking consumption unknownNOMS HealthcareStart: 10-17-2024 PregnancyNOMN HealthcareSexFemale (finding)[facility] Start: 78-25-2972Llx Assigned At [facility] Functional Status WzexZwelmbthmvRybkjmJzjmvlgf40-60-9955Ocvaipe Health Questionnaire 2 item (PHQ- 2) [Reported][facility] Clinical Notes 11-28-2020 to 06-10-2025 Note Date & KewkPamoNqsgrxmj74-64-5132 History of Present illness Narrative* MICHELLE Forrest [...] nursing note reviewed. Exam conducted with a book sewing machine operator present. Vitals: Estimated body mass index is [...] behalf of: MICHELLE Forrest documented in this encounterChristian HospitalTumgbawhec50-58-6768 History of Present illness Narrative* Elvia Calvillo [...] nursing note reviewed. Exam conducted with a book sewing machine operator present. Vitals: Estimated body mass index is 25.89 kg/m as calculated from the following: Height as of 12/21/22: 5' 6 . Weight as of this encounter: 160 lb 6.4 oz. BP: 130/80 No LMP recorded. Patient is . Assessment/Plan ICD-10-CM 1. 33 weeks gestation of ([facility]) Z3A.33 POCT urinalysis dipstick manually resulted 2. Third trimester ([facility]) Z34.93 POCT urinalysis dipstick manually resulted [...] Laterality Date APPENDECTOMY GALLBLADDER documented in this encounterChristian HospitalOmxavshbob87-24-9708 History of Present illness Narrative* Elvia Calvillo [...] Ambulatory Problems Diagnosis Date Noted Third trimester ([facility]) 12/27/2022 ADHD (attention deficit hyperactivity [...] nursing note reviewed. Exam conducted with a book sewing machine operator present. Vitals: Estimated body mass index is 24.99 kg/m as calculated from the following: Height as of 12/21/22: 5' 6 . Weight as of this encounter: 154 lb 12.8 oz. BP: 110/80 No LMP recorded. Patient is . ASSESSMENT & PLAN ICD-10-CM 1. 31 weeks gestation of ([facility]) Z3A.31 POCT urinalysis dipstick manually resulted 2. Third trimester ([facility]) Z34.93 Return OB: Patient presents today [...] of: Elvia Calvillo NP documented in this encounterChristian HospitalLvjmlvvooq91-50-6996 History of Present illness Narrative* Elvia Calvillo [...] nursing note reviewed. Exam conducted with a book sewing machine operator present. Vitals: Estimated body mass index is [...] of: Wolfgang Hoffman DO documented in this encounterChristian HospitalLvpnblhemk36-68-7680 History of Present illness Narrative* Elvia Calvillo [...] nursing note reviewed. Exam conducted with a book sewing machine operator present. Vitals: Estimated body mass index is 24.45 kg/m as calculated from the following: Height as of 12/21/22: 5' 6 . Weight as of this encounter: 151 lb 8 oz. BP: 120/70 No LMP recorded. Patient is . ASSESSMENT & PLAN ICD-10-CM 1. Third trimester ([facility]) Z34.93 POCT urinalysis dipstick manually resulted Hemoglobin A1c 2. 28 weeks gestation of ([facility]) Z3A.28 Hemoglobin A1c Return OB: Patient [...] of: Elvia Calvillo NP documented in this encounterChristian HospitalGptujpckmd03-83-0853 History of Present illness Narrative* Elvia Calvillo [...] nursing note reviewed. Exam conducted with a book sewing machine operator present. Vitals: Estimated body mass index is 23.53 kg/m as calculated from the following: Height as of 12/21/22: 5' 6 . Weight as of this encounter: 145 lb 12.8 oz. BP: 100/60 No LMP recorded. Patient is . ASSESSMENT & PLAN ICD-10-CM 1. Second trimester ([facility]) Z34.92 2. 26 weeks gestation of ([facility]) Z3A.26 3. History of psychogenic nonepileptic [...] of: Wolfgang Hoffman DO documented in this encounterChristian HospitalMstkhctxuc46-13-0154 History of Present illness Narrative* MICHELLE Forrest [...] nursing note reviewed. Exam conducted with a book sewing machine operator present. Vitals: Estimated body mass index is 23.69 kg/m as calculated from the following: Height as of 12/21/22: 5' 6 . Weight as of 02/25/25: 146 lb 12.8 oz. BP: No LMP recorded. Patient is . ASSESSMENT & PLAN ICD-10-CM 1. Second trimester ([facility]) Z34.92 POCT urinalysis dipstick manually resulted 2. 24 weeks gestation of ([facility]) Z3A.24 3. Diabetes mellitus screening Z13.1 [...] of: Elvia Calvillo NP documented in this encounterChristian [id number] History of Present illness Narrative* MICHELLE Forrest - 02/25/2025 3:40 PM EDT Reason for Appointment: Patient ID: Kemi Piper is a 19 y.o. female who presents for Routine Visit Patient presents today for Return OB appointment. MEDICATIONS Current Outpatient Medications Medication Instructions 28-0.8 MG tablet 1 tablet, Daily ALLERGIES No Known Allergies PROBLEMS Active Ambulatory Problems Diagnosis Date Noted Third trimester ([facility]) 12/27/2022 ADHD (attention deficit hyperactivity [...] ASSESSMENT & PLAN ICD-10-CM 1. Second trimester ([facility]) Z34.92 POCT urinalysis dipstick manually resulted 2. 20 weeks gestation of ([facility]) Z3A.20 POCT urinalysis dipstick manually resulted [...] of: Wolfgang Hoffman DO documented in this encounterChristian [id number] History of Present illness Narrative* MICHELLE Forrest [...] nursing note reviewed. Exam conducted with a book sewing machine operator present. Vitals: Estimated body mass index is 21.95 kg/m as calculated from the following: Height as of 12/21/22: 5' 6 . Weight as of 01/01/25: 136 lb. BP: No LMP recorded. Patient is . ASSESSMENT & PLAN ICD-10-CM 1. Well woman exam with routine gynecological exam Z01.419 Pap Smear 2. Second trimester ([facility]) Z34.92 Alpha fetoprotein, maternal Alpha fetoprotein, maternal US OB 14+ weeks anatomy scan 3. 16 weeks gestation of ([facility]) Z3A.16 Alpha fetoprotein, maternal Alpha fetoprotein, maternal US OB 14+ weeks anatomy scan 4. Vaginal discharge N89.8 SURESWAB(R) ADVANCED VAGINITIS PLUS, TMA 5. STD exposure Z20.2 CHLAMYDIA TRACHOMATIS (GENITO/STI) Neisseria gonorrhea DNA probe, direct 6. Screening, , for anatomic survey ([facility]) Z36.89 US OB 14+ weeks anatomy scan Return OB/Annual Exam: Patient presents today for a annual exam/routine obstetrics appointment. Patient is currently [id number]. Patient states she is doing well but [...] behalf of: MICHELLE Forrest documented in this encounterChristian [id number] History of Present illness Narrative* Porsha Jackie, SMOCKING MACHINE OPERATOR - 01/01/2025 1:40 PM EDT Reason for Appointment: Patient ID: Kemi Piper is a 19 y.o. female who presents for Routine Visit Patient presents today for Return OB appointment. MEDICATIONS Current Outpatient Medications Medication Instructions 28-0.8 MG tablet 1 tablet, Daily ALLERGIES No Known Allergies PROBLEMS Active Ambulatory Problems Diagnosis Date Noted Third trimester 12/27/2022 ADHD (attention deficit hyperactivity disorder) ([facility]) 01/11/2012 Deterioration in school performance 01/21/2015 Migraines ([facility]) 11/28/2020 Nocturnal enuresis 12/12/2012 Psychogenic nonepileptic [...] nursing note reviewed. Exam conducted with a book sewing machine operator present. Vitals: Estimated body mass index is [...] or undercooked meat, and [facility]. Patient has been consulted regarding any further [...] of: Wolfgang Hoffman DO documented in this encounterChristian [id number] History of Present illness Narrative* Pat Skelton [...] trimester 12/27/2022 ADHD (attention deficit hyperactivity disorder) ([facility]) 01/11/2012 Deterioration in school performance 01/21/2015 Migraines ([facility]) 11/28/2020 Nocturnal enuresis 12/12/2012 Psychogenic nonepileptic [...] or undercooked meat, and [facility] away [facility]. Patient has also been advised to not change litter boxes and eat 6 small meals a day. Patient has been consulted regarding the do's and don'ts ofpregnancy. Patient was given labs and all questions and concerns were answered. Patient was given Bliss to have completed with Initial labs. Follow Up: Patient is to return in 4 weeks for routine OB appointment. Follow Up: Patient is to have labs drawn at directed and return to office for initial OB appointment with provider. Patient may call office as needed with any concerns or questions. Nurse Visit Completed by: Pat Skelton LPN documented in this encounterChristian [id number] History of Present illness Narrative* Monique Arora [...] trimester 12/27/2022 ADHD (attention deficit hyperactivity disorder) ([facility]) 01/11/2012 Deterioration in school performance 01/21/2015 Migraines ([facility]) 11/28/2020 Nocturnal enuresis 12/12/2012 Psychogenic nonepileptic [...] nursing note reviewed. Exam conducted with a book sewing machine operator present. Vitals: Estimated body mass index is [...] of: Wolfgang Hoffman DO documented in this encounterChristian [id number] History of Present illness Narrative* MICHELLE Forrest [...] trimester 12/27/2022 ADHD (attention deficit hyperactivity disorder) ([facility]) 01/11/2012 Deterioration in school performance 01/21/2015 Migraines ([facility]) 11/28/2020 Nocturnal enuresis 12/12/2012 Psychogenic nonepileptic seizure ([facility]) 11/29/2020 Resolved Ambulatory Problems Diagnosis Date [...] of: Wolfgang Hoffman DO documented in this encounterChristian [id number] Miscellaneous Notes* Telephone Encounter - Tessa Roberts CMA - 11/03/2023 11:37 AM EDT We received a letter from [facility] stating that the procedure on 09/27/23 was not covered. The Cholecystectomy was ordered by Dr Morgan on 09/27/23, the actual surgery wasn't performed until 10/03/23. I scanned the letter into her chart & spoke to Trinity, at the [employer] Main line. She could seethe letter & she will get it to the [place] specialist. documented in this encounterSumma Health Barber[facility] Campus03-28-2024 Telephone encounter Note* Telephone Encounter - Tessa Roberts CMA - 11/03/2023 11:37 AM EDT We received a letter from [facility] stating that the procedure on 09/27/23 was not covered. The Cholecystectomy was ordered by Dr Morgan on 09/27/23, the actual surgery wasn't performed until 10/03/23. I scanned the letter into her chart & spoke to Trinity, at the [employer] Main line. She could seethe letter & she will get it to the [place] specialist. [facility]03-12-2024 History of Present illness Narrative* Viki Patel, TECHNICAL SUPPORT ENGINEER-CHAIR TRIMMER - 10/18/2023 10:00 AM EDT Subjective Kemi [...] Status post laparoscopic cholecystectomy [Z90.49] GERMAN DEAN [facility] [place] This note was created with the assistance of a speech recognition program. While intending to generate a timely document that accurately reflects the content of the visit, no guarantee can be provided that every grammatical or spelling mistake has been or will be identified or corrected. Thank you for your understanding. GERMAN Dean 10/18/23 1014 documented in this encounterSumma Health Barberton Campus02-21-2024 NoteXR CHEST 2 VWS Procedure: Chest x-ray performed Number of views:2 History:Preop asthma Comparison:None Findings: The heart and lungs show no acute findings, and the mediastinum and manasa are grossly negative . Impression: 1. No acute change. Finalized by Umesh Bolaños MD on 09/28/2023 10:05 [facility] 09-28-2023 Note Procedure: Chest x-ray performed Number of views:2 History:Preop asthma Comparison:None Findings: The heart and lungs show no acute findings, and the mediastinum and manasa are grossly negative . Impression: 1. No acute change. Finalized by Umesh Bolaños MD on 09/28/2023 10:05 [id number] Instructions* Patient Instructions* Noemí Arnett RN - 09/28/2023 9:00 AM EST Preoperative Education Checklist- General Surgery date: 10/03/23 Surgery time: 1100 a.m. Arrival time: 0900 a.m. 1. Bring a photo ID and your insurance card with you the day of surgery. You will check in at the main lobby of the [facility]- registration desk is straight ahead as soon as you walk in. Tell them you are here for surgery. 2. If you have a Living Will/Durable Power of Wood Processing Worker for Health Care that is not on [...] after you have bathed. 5. NO nail algerian/acrylic on at least one finger. If you are having a hand, wrist or foot surgery then all nail algerian and artificial/acrylic nails must be removed from [...] please call the Preadmission Testing office at [phone], Mon.-Fri. 7 a.m.-3 p.m. Leave a voicemail [...] appointment with your doctor. documented in this encounterSumma Health Barberton Campus02-21-2024 Miscellaneous Notes* Perioperative Nursing Note - Noemí Arnett RN - 09/28/2023 9:00 AM EST Preoperative Education Checklist- General Surgery date: 10/03/23 Surgery time: 1100 a.m. Arrival time: 0900 a.m. 1. Bring a photo ID and your insurance card with you the day of surgery. You will check in at the main lobby of the [facility]- registration desk is straight ahead as soon as you walk in. Tell them you are here for surgery. 2. If you have a Living Will/Durable Power of Wood Processing Worker for Health Care that is not on [...] after you have bathed. 5. NO nail algerian/acrylic on at least one finger. If you are having a hand, wrist or foot surgery then all nail algerian and artificial/acrylic nails must be removed from [...] please call the Preadmission Testing office at [phone], Mon.-Fri. 7 a.m.-3 p.m. Leave a voicemail [...] reviewed. Patient verbalized understanding. documented in this encounterSumma Health Barberton Campus02-21-2024 Nurse Note* Perioperative Nursing Note - Noemí Arnett RN - 09/28/2023 9:00 AM EST Preoperative Education Checklist- General Surgery date: 10/03/23 Surgery time: 1100 a.m. Arrival time: 0900 a.m. 1. Bring a photo ID and your insurance card with you the day of surgery. You will check in at the main lobby of the [facility]- registration desk is straight ahead as soon as you walk in. Tell them you are here for surgery. 2. If you have a Living Will/Durable Power of Wood Processing Worker for Health Care that is not on [...] after you have bathed. 5. NO nail algerian/acrylic on at least one finger. If you are having a hand, wrist or foot surgery then all nail algerian and artificial/acrylic nails must be removed from [...] please call the Preadmission Testing office at [phone], Mon.-Fri. 7 a.m.-3 p.m. Leave a voicemail [...] to the follow-up appointment with your doctor. [facility] [employer] [id number] Nurse Note* Perioperative Nursing Note - Noemí Arnett RN - 09/28/2023 9:00 AM EST Hibiclens and surgical instructions reviewed. Patient verbalized understanding. [facility] [employer] Solutionsnoland hospital montgomeryMain[employer] Inc [id number] History of Present illness Narrative* Alo Morgan [...] patient/family/caregiver Referring and communicating with other health landcare officer Alo Morgan MD [facility] General Surgery [place] documented in this encounterSumma Health Barberton Campus02-06-2024 Miscellaneous Notes* Telephone Encounter - Deja Roberts - 09/13/2023 10:46 AM EST Patient no called no showed for appointment with Dr. Morgan. I called Kemi to see if we could reschedule this appointment. Left message on voicemail to call the office back as I was unable to make contact. documented in this encounterSumma Health Barberton Campus02-06-2024 Telephone encounter Note* Telephone Encounter - Deja Roberts - 09/13/2023 10:46 AM EST Patient no called no showed for appointment with Dr. Morgan. I called Kemi to see if we could reschedule this appointment. Left message on voicemail to call the office back as I was unable to make contact. [facility]01-16-2024 Miscellaneous Notes* Telephone Encounter - Paola Temple CMA - 08/23/2023 8:13 AM EST Left message for patient to call back to reschedule appointment. documented in this encounterSumma Health Barberton Campus01-16-2024 Telephone encounter Note* Telephone Encounter - Paola Temple CMA - 08/23/2023 8:13 AM EST Left message for patient to call back to reschedule appointment. [facility]01-09-2024 Miscellaneous Notes* Telephone Encounter - Deja Roberts - 08/16/2023 11:03 AM EST Called patient in regard to gallstone referral from Dr. Burns's office. Left message on voicemail to call the office back to schedule appointment. * Telephone Encounter - Deja Roberts - 08/16/2023 11:03 AM EST Sandeep called the office back and scheduled an appointment with Dr. Morgan for 08-23-23. documented in this encounterSumma Health Barberton Campus01-09-2024 Telephone encounter Note* Telephone Encounter - Deja Roberts - 08/16/2023 11:03 AM EST Called patient in regard to gallstone referral from Dr. Burns's office. Left message on voicemail to call the office back to schedule appointment. [facility]01-09-2024 Telephone encounter Note* Telephone Encounter - Deja Roberts - 08/16/2023 11:03 AM EST Sandeep called the office back and scheduled an appointment with Dr. Morgan for 08-23-23. [facility]04-24-2021 NoteDischarge/Transfer Summary Name: Kmei Piper MR#: [id number] : [id number] Room #: 6221/01 Age/Sex: 15 y.o. female Admit Date: 11/28/2020 Admitting: Reggie Conner MD Discharge Date: 11/29/2020 Discharged from: [facility] Attending: Dr. Reggie Conner MD Final Diagnosis: [...] with vision loss. She was seen at [facility] Emergency department and observed with normal labs [...] opinion and she was admitted directly to [facility] Neurology. 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 It last approximately 9m. Patient fell asleep afterwards and woke up around 1913. This episode differed from past ones in that it was related to vision loss. Family initially presented to [facility] where she was observed til vision improved. [...] This prompted family to seek evaluation at [facility] once more. They do note she did [...] mom identifies as Dr. Jesús Choe in [place]. They have an upcoming appointment on 12/02. 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 (sister was getting this day and she [...] Medication changes: Has bee (more content not included)...[facility] No data available for this section [facility] General Surgery [place] [facility] note* Diagnosis Biliary colic- Primary Calculus of gallbladder without mention of cholecystitis or obstruction [facility] Diagnosis Preop examination- Primary Unspecified pre-operative examination Asthma, unspecified asthma severity, unspecified whether complicated, unspecified whether persistent Preop examination Unspecified pre-operative examination Asthma, unspecified asthma severity, unspecified whether complicated, unspecified whether persistent Preop examination Unspecified pre-operative examination Asthma, unspecified asthma severity, unspecified whether complicated, unspecified whether persistent [facility]* Diagnosis Status post laparoscopic cholecystectomy- Primary Other postprocedural status documented [facility] this [facility]* Diagnosis PCOS (polycystic ovarian syndrome)- Primary Polycystic ovaries documented in this encounter [facility]* Diagnosis PCOS (polycystic ovarian syndrome)- Primary Polycystic ovaries documented in this encounter [facility]* Diagnosis Missed menses , unspecified gestational age Encounter for supervision of normal first in first trimester documented in this encounter [facility] note* Diagnosis First trimester state, incidental 12 weeks gestation of History of psychogenic nonepileptic seizure documented in this encounter [facility] Healthcare[facility] note* Diagnosis Well woman exam with routine gynecological exam Routine gynecological examination Second trimester ([facility]) state, incidental 16 weeks gestation of ([facility]) Vaginal discharge Leukorrhea, not specified as infective STD exposure Screening, , for anatomic survey ([facility]) Encounter for anatomic survey documented [...] ([facility]) state, incidental 26 weeks gestation of ([facility]) History of psychogenic nonepileptic seizure [facility]* Diagnosis Third trimester ([facility]) state, incidental 28 weeks gestation of ([facility]) documented [facility]* Diagnosis Third trimester ([facility]) state, incidental 29 weeks gestation of ([facility]) Psychogenic nonepileptic seizure Diabetes mellitus screening Screening for diabetes mellitus documented [facility]* Diagnosis 31 weeks gestation of ([facility]) Third trimester ([facility]) state, incidental documented [facility]* Diagnosis size inconsistent with dates ([facility])- Primary 33 weeks gestation of ([facility]) Third trimester ([facility]) state, incidental Psychogenic nonepileptic seizure [facility]* Diagnosis Third trimester ([facility]) state, incidental 35 weeks gestation of ([facility]) Psychogenic nonepileptic seizure [facility]* Diagnosis Onset Date Resolution Status Admit Date Psychogenic nonepileptic seizure acuteNovember 2024 8:49am [facility] Work Phone: Hospital Discharge instructions No data available for this section [facility] General Surgery [place] InstructionsNot on filedocumented in this encounter [facility]Not on filedocumented in this encounter [facility] System[facility]ructionsNot on filedocumented in this encounter [facility] SystemInstructionsNot on filedocumented in this encounter [facility] note No data available for this section [facility] General Surgery [place] Reason for referral (narrative)No reason for referral information availableSelect Medical [facility] Work Phone: Summary Purpose Family History No [...] ECG 12 lead Yo Berman MD [address] [place] [address] Referral IDStatusReasonStart DateExpiration DateVisits RequestedVisits [id number] [id number] / ProceduresReferred By ContactReferred To Contact Diagnoses Biliary colic Procedures Unlisted Procedure / Surgery Alo Morgan MD [address] [place] [address] Referral IDStatusReasonStart DateExpiration DateVisits RequestedVisits [id number] Review/ Additional Source Comments INFORMATION SOURCE (unrecogn ized section and content) DATE CREATED AUTHOR 11/30/2020 [place] DATE CREATED AUTHOR AUTHOR'S ORGANIZ ATION 01/14/2023 [facility] DATE CREATED AUTHOR AUTHOR'S ORGANIZ ATION 07/27/2023 [facility] DATE CREATED AUTHOR AUTHOR'S ORGANIZ ATION 09/12/2023 [facility] DATE CREATED AUTHOR AUTHOR'S ORGANIZ ATION 10/08/2023 [facility] DATE CREATED AUTHOR AUTHOR'S ORGANIZ ATION 10/19/2023 [facility] DATE CREATED AUTHOR AUTHOR'S ORGANIZ ATION 03/17/2025 [facility] DATE CREATED AUTHOR AUTHOR'S ORGANIZ ATION 06/11/2025 [facility] EPIC Patient Care team informatio n (unrecognized section and content) Team MemberRelationshipSpecialtyStart DateEnd Date Rashard Burns MD [address] [facility] [place] [address] PCP - GeneralFamily Medicine03/25/21Team MemberRelationshipSpecialtyStart DateEnd Date Rashard Burns MD [address] [facility] [address] PCP - GeneralFamily Medicine03/25/21Team MemberRelationshipSpecialtyStart DateEnd Date Rashard Burns MD [address] [facility] [place] [address] PCP - GeneralFamily Medicine03/25/21Team MemberRelationshipSpecialtyStart DateEnd Date Rashard Burns MD [address] [facility] [place] [address] PCP - GeneralFamily Medicine03/25/21Team MemberRelationshipSpecialtyStart DateEnd Date Rashard Burns MD [address] [facility] [place] [address] PCP - GeneralFamily Medicine03/25/21Team MemberRelationshipSpecialtyStart DateEnd Date Rashard Burns MD [address] [facility] [place] [address] PCP - GeneralFamily Medicine03/25/21Team MemberRelationshipSpecialtyStart DateEnd Date Rashard Burns MD [address] [facility] [place] [address] PCP - GeneralFamily Medicine02/16/23Team MemberRelationshipSpecialtyStart DateEnd Date Rashard Burns MD [address] [facility] [place] [address] PCP - GeneralFamily Medicine02/16/23Team MemberRelationshipSpecialtyStart DateEnd Date Rashard Burns MD [address] [facility] [place] [address] PCP - GeneralFamily Medicine02/16/23Team MemberRelationshipSpecialtyStart DateEnd Date Rashard Burns MD [address] [facility] [place] [address] PCP - GeneralFamily Medicine02/16/23Team MemberRelationshipSpecialtyStart DateEnd Date Rashard Burns MD [address] [facility] [place] [address] PCP - GeneralFamily Medicine02/16/23Team MemberRelationshipSpecialtyStart DateEnd Date Rashard Burns MD [address] [facility] [place] [address] PCP - GeneralFamily Medicine02/16/23Team MemberRelationshipSpecialtyStart DateEnd Date Rashard Burns MD [address] [facility] [place] [address] PCP - GeneralFamily Medicine02/16/23Team MemberRelationshipSpecialtyStart DateEnd Date Rashard Burns MD PCP - GeneralFamily Medicine02/16/23Team MemberRelationshipSpecialtyStart DateEnd Date Rashard Burns MD [address] [facility] [place] [address] PCP - Generalmily Medicine02/16/23Team MemberRelationshipSpecialtyStart DateEnd Date Rashard Burns MD [address] [facility] [place] [address] PCP - GeneralFamily Medicine02/16/23Team MemberRelationshipSpecialtyStart DateEnd Date Rashard Burns MD [address] [facility] [place] [address] PCP - GeneralFamily Medicine02/16/23Team MemberRelationshipSpecialtyStart DateEnd Date Rashard Burns MD [address] [facility] [place] [address] PCP - GeneralFamily Medicine02/16/23Team MemberRelationshipSpecialtyStart DateEnd Date Rashard Burns MD [address] [facility] [place] [address] PCP - GeneralFamily Medicine02/16/23Team MemberRelationshipSpecialtyStart DateEnd Date Rashard Burns MD [address] [facility] [place] [address] PCP - Generalmily Medicine02/16/23Team MemberRelationshipSpecialtyStart DateEnd Date Rashard Burns MD [address] [facility] [place] [address] PCP - Generalmi Medicine02/16/23Team MemberRelationshipSpecialtyStart DateEnd Date Rashard Burns MD [address] [facility] [place] [address] PCP - Generalmi Medicine02/16/23Team MemberRelationshipSpecialtyStart DateEnd Date Rashard Burns MD [address] [facility] [place] [address] [facility] - [facility] Medicine02/16/23Team MemberRelationshipSpecialtyStart DateEnd Date Rashard Burns MD [address] [facility] [place] [address] PCP - [facility] Medicine02/16/23Team MemberRelationshipSpecialtyStart DateEnd Date Rashard Burns MD [address] [facility] [place] [address] PCP - [facility] Medicine02/16/23 Team Status: Active Member Role/Relationship Status Dates Rashard Burns MD Primary Care Provider Active Team Status: Inactive Member Role/Relationship Status Dates Tyson Dillard DO Attending Provider Active Start: June 17, 2025 End: June 17, 2025Rashard Burns MDPrinorthport medical center Care ProviderActiveStart: June 17, 2025 End: June [...] BE BASED ON THE PRIMARY CLINICAL RECORDS. [employer] provides no warranty or guarantee of the accuracy or completeness of information in this document.
--- NOTE | 2025-08-05 09:47 | XR_ITS ---
The [address] [address] Patient Name: NICKO EVANS MRN: [id number] date: 2005 Sex: F Assigned Patient Location: [facility] Current Patient Location: [facility] Accession/Order Number: [id number] Exam Date: 08/05/2025 09:56 Report Date: 08/05/2025 11:04 At the request of: TIFFANY NOGUEIRA DO Procedure: XR chest 2V PA AND LATERAL CHEST: CLINICAL HISTORY: Preoperative clearance. Tobacco use. COMPARISON: None There is no focal parenchymal consolidation, effusion or pneumothorax. The cardiac, hilar and mediastinal silhouettes are within normal limits. There is no vascular congestion. The visualized bony thorax is intact. There is slight thoracolumbar dextroscoliotic curvature. XR/XR chest 2V IMPRESSION: NO ACUTE CARDIOPULMONARY ABNORMALITY. Impression dictated by: Porsha Rollins M.D. 08/05/2025 11:04 AM [facility] Electron[facility] authenticated by: [id number] Y Date: 08/05/2025 11:04
== END 2025-08-05 09:05 | disposition home or self-care (01) ==
LOC: PST 09:06
PROVIDERS: PCP Family Medicine; Visit Provider Obstetrics & Gynecology
DX: Z01.810 Encounter for preprocedural cardiovascular examination (principal)
CPT/HCPCS: 71046